=== PATIENT | female | born 1965 | race Caucasian/White ===

== ENCOUNTER → 2016-07-08 | Outpatient (CLI) | payer BC ==
[~2016-07-08] MED LIST: BUPR300T PO; COUMADIN PO; DOXY100C2 PO; FAMO20TA5 PO; HYDR-707 PO; LEVO500T2 PO; LISI40TA PO; MTP100TCR PO; MTR250T PO; OMEP40CA36 PO; PHEN100T17 PO; SULF1TAB38 PO; WARF6TAB PO; WRF1T; WRF3T
--- NOTE | 2016-07-08 18:39 | Diagnostic Imaging Report ---
Three views of the lumbar spine. INDICATION: Low back pain. FINDINGS: There is straightening of the lordotic curvature. Mild right convexity curvature centered around the thoracolumbar junction is seen, could be positional or related to mild scoliosis. The vertebral body heights are preserved. There is a grade 1 retrolisthesis of L4 over L5. There is mild disc height loss and endplate sclerosis with anterior osteophytes at the L5/S1. Anterior osteophytes at L5/S1 and at the L2/L3 levels seen. No posterior osteophyte formation is noted. There is an IVC filter and surgical clip in the upper right abdomen seen. Mild sclerotic degenerative changes in the lower facet joints and SI joints noted. IMPRESSION: Grade 1 retrolisthesis of L4 over L5. Mild disc degenerative changes. Dictated by: Dictated on workstation # [id number]
== END ==
LOC: RAD 15:45
PROVIDERS: ATTEND Family Medicine
DX: M43.16 Spondylolisthesis, lumbar region (principal)
CPT/HCPCS: 72100

== ENCOUNTER → 2016-12-24 | Outpatient (CLI) | payer BC ==
--- NOTE | 2016-12-27 14:37 | Diagnostic Imaging Report ---
Bilateral screening mammogram 2D views with tomosynthesis The current study was also evaluated with a Computer Aided Detection (CAD) system. INDICATION: Screening. No current complaints stated on the questionnaire. COMPARISON: 09/05/2014. FINDINGS: The breasts are composed of scattered fibroglandular densities. Occasional benign-appearing calcifications are seen. Allowing for technique and positional differences, no suspicious change is seen. IMPRESSION: No significant change. ACR BI-RADS Category 2: Benign findings. Result letter will be mailed to the patient. Note: At least 10% of breast cancer is not imaged by mammography. Dictated by: Dictated on workstation # [id number]
== END ==
LOC: RAD 15:38
PROVIDERS: ATTEND Family Medicine
DX: Z12.31 Encounter for screening mammogram for malignant neoplasm of breast (principal)
CPT/HCPCS: 77067

== ENCOUNTER → 2017-05-17 | Outpatient (CLI) | payer BC ==
[2017-05-17 12:33] LABS: BASOPHILS # (AUTO) 0.1 10^3/uL (0.0-0.1); BASOPHILS % (AUTO) 1 % (0-10); EOSINOPHILS # (AUTO) 0.3 10^3/uL (0.0-0.3); EOSINOPHILS % (AUTO) 4 % (0-10); HEMATOCRIT 38 % (35-52); HEMOGLOBIN 12.7 G/DL (11.5-16.0); LYMPHOCYTES # (AUTO) 2.3 X 10^3 (1.0-4.0); LYMPHOCYTES % (AUTO) 28 % (12-44); MEAN CORPUSCULAR HEMOGLOBIN 29 PG (25-34); MEAN CORPUSCULAR HGB CONC 33 G/DL (32-36); MEAN CORPUSCULAR VOLUME 87 FL (80-99); MEAN PLATELET VOLUME 11.3 FL (7.4-10.4); MONOCYTES # (AUTO) 1.1 X 10^3 (0.0-1.0); MONOCYTES % (AUTO) 13 % (0-12); NEUTROPHILS # (AUTO) 4.5 X 10^3 (1.8-7.8); NEUTROPHILS % (AUTO) 54 % (42-75); PLATELET COUNT 252 10^3/uL (130-400); WHITE BLOOD COUNT 8.3 10^3/uL (4.3-11.0)
[2017-05-17 12:54] LABS: BUN/CREATININE RATIO 15; CALCIUM 9.5 MG/DL (8.5-10.1); CARBON DIOXIDE 25 MMOL/L (21-32); CHLORIDE 106 MMOL/L (98-107); CREATININE SERUM 0.68 MG/DL (0.60-1.30); GFR ESTIMATED > 60; GLUCOSE 106 MG/DL (70-105); SODIUM 138 MMOL/L (135-145)
[2017-05-17 13:02] LABS: ERYTHROCYTE SEDIMENTATION RATE 28 MM/HR (0-30)
== END ==
LOC: HH 07:00
PROVIDERS: ATTEND Specialist
DX: T81.4XXA Infection following a procedure, initial encounter (principal); Z79.2 Long term (current) use of antibiotics
CPT/HCPCS: 80048; 85025; 85652; 86141

== ENCOUNTER → 2017-05-23 | Outpatient (CLI) | payer BC ==
[2017-05-23 15:26] LABS: BASOPHILS % (AUTO) 1 % (0-10); EOSINOPHILS % (AUTO) 1 % (0-10); HEMATOCRIT 40 % (35-52); HEMOGLOBIN 13.4 G/DL (11.5-16.0); LYMPHOCYTES # (AUTO) 1.6 X 10^3 (1.0-4.0); LYMPHOCYTES % (AUTO) 36 % (12-44); MEAN CORPUSCULAR HEMOGLOBIN 29 PG (25-34); MEAN CORPUSCULAR HGB CONC 34 G/DL (32-36); MEAN CORPUSCULAR VOLUME 86 FL (80-99); MEAN PLATELET VOLUME 11.3 FL (7.4-10.4); MONOCYTES # (AUTO) 0.9 X 10^3 (0.0-1.0); MONOCYTES % (AUTO) 20 % (0-12); NEUTROPHILS # (AUTO) 1.9 X 10^3 (1.8-7.8); NEUTROPHILS % (AUTO) 43 % (42-75); PLATELET COUNT 206 10^3/uL (130-400); RED BLOOD COUNT 4.64 10^6/uL (4.35-5.85); RED CELL DISTRIBUTION WIDTH 14.2 % (10.0-14.5); WHITE BLOOD COUNT 4.4 10^3/uL (4.3-11.0)
[2017-05-23 15:42] LABS: BUN/CREATININE RATIO 15; CALCIUM 9.3 MG/DL (8.5-10.1); CARBON DIOXIDE 27 MMOL/L (21-32); CHLORIDE 100 MMOL/L (98-107); CREATININE SERUM 0.75 MG/DL (0.60-1.30); GFR ESTIMATED > 60; GLUCOSE 97 MG/DL (70-105); POTASSIUM 3.9 MMOL/L (3.6-5.0); SODIUM 135 MMOL/L (135-145)
[2017-05-23 15:52] LABS: ERYTHROCYTE SEDIMENTATION RATE 28 MM/HR (0-30); LYMPHOCYTES % (MANUAL) 20 %; MONOCYTES % (MANUAL) 22 %; NEUTROPHILS % (MANUAL) 58 %; RBC MORPH NORMAL
== END ==
LOC: LAB 07:00
PROVIDERS: ATTEND Specialist
DX: T81.4XXA Infection following a procedure, initial encounter (principal); Z79.2 Long term (current) use of antibiotics
CPT/HCPCS: 36415; 80048; 85007; 85027; 85652; 86141

== ENCOUNTER → 2017-10-12 | Outpatient (CLI) | payer BC ==
--- NOTE | 2017-10-12 15:41 | Diagnostic Imaging Report ---
INDICATION: Cough. EXAMINATION: PA and lateral chest at 3:33 p.m. FINDINGS: The heart size is within normal limits and stable when compared to 06/18/2010. There is a prominent epicardial fat pad near the apex of the heart. This has increased in size since the previous exam. The lungs are clear. There is no sign of failure, pneumonia or pleural effusion to indicate an acute abnormality. The mediastinum is not widened. The osseous structures are intact. In the interval since the prior study, a well-circumscribed 8 mm calcification has developed between the undersurface of the acromion and the humeral head on the right. This may be secondary to calcific tendinitis or perhaps to prior trauma to the osseous structures in this area. Clinical followup is recommended. IMPRESSION: 1. There is no evidence for an acute cardiopulmonary abnormality. 2. These results were discussed with Dr. Asha Gee. Dictated by: Dictated on workstation # [id number]
== END ==
LOC: RAD 14:59
PROVIDERS: ATTEND Nurse Practitioner Family
DX: R07.81 Pleurodynia (principal); R05 Cough
CPT/HCPCS: 71046

== ENCOUNTER 2017-10-14 13:54 | Emergency (ER) | payer BC ==
[~2017-10-14] VITALS: Ht 175.3 cm; Wt 102.1 kg
--- NOTE | 2017-10-14 14:46 | ED Respiratory ---
General Chief Complaint: Respiratory Problems Stated Complaint: SOB, BODY ACHES Nursing Triage Note: ARRIVED VIA AMB TO ROOM 07. COMPLAINS OF CHRONIC SOA X2 WEEKS. SCHEDULED FOR A CT TODAY BY [facility] BUT [facility] DID NOT LABS WHICH ARE NEEDED. REGISTRATION TRIED TO CONTACT [facility] BUT NO RETURN CALL. PT ALSO COMPLAINS OF BILAT RIB PAIN. Source: patient Exam Limitations: no limitations History of Present Illness Date Seen by Provider: Oct 14, 2017 Time Seen by Provider: 14:42 Initial Comments is to ER with reports of shortness of breath for about 2 weeks. This began with a cough and"chest cold" symptoms. However, the cough has resolved but the shortness of breath persists. she had a chest x-ray done recently which was normal. 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 She had spine surgery in April/May of this year. She developed an infection and had to be off of the warfarin. Since being off the warfarin she states that had a difficult time getting her INR therapeutic. However, she does have a vena cava filter. She denies any new swelling to either extremity lower or upper. She is concerned about a PE. Timing/Duration: constant Severity: moderate Associated Symptoms: cough (was present but has resolved), shortness of breath Allergies and Home Medications Allergies Coded Allergies: Aspirin (Verified Allergy, Unknown, 01/03/06) Home Medications Bupropion Hcl 300 Mg Tab.sr.24h, 300 MG PO DAILY, (Reported) Famotidine 20 Mg Tablet, 1 EACH PO DAILY PRN PRN, (Reported) Hydrocodone Bit/Acetaminophen 1 Each Tablet, 1-2 EACH PO Q6H PRN, (Reported) Lisinopril 40 Mg Tablet, 40 MG PO DAILY, (Reported) Metoprolol Succinate 100 Mg Tab, 100 MG PO HS, (Reported) Omeprazole 40 Mg Capsule.dr, 40 MG PO DAILY, (Reported) Warfarin Sodium 6 Mg Tablet, 1 EACH PO HS TWT, (Reported) SUN,TUE,,TUE, Patient Home Medication List Home Medication List Reviewed: Yes Review of Systems Constitutional: see HPI; No chills, No fever EENTM: see HPI Respiratory: see HPI, cough, short of breath Cardiovascular: no symptoms reported; No chest pain Genitourinary: no symptoms reported Musculoskeletal: no symptoms reported Skin: no symptoms reported Past Ecvbjcp-Snllof-Iagtfj Hx Patient Social History Alcohol Use: Denies Use Recreational Drug Use: No Smoking Status: Never a Smoker Recent Foreign Travel: No Contact w/Someone Who Travel: No Recent Infectious Disease Expo: No Recent Hopitalizations: Yes Past Medical History Surgeries: Yes Appendectomy, Gallbladder, Hysterectomy, Orthopedic Respiratory: Yes Pulmonary Embolism Cardiac: Yes (BLOOD CLOTS) Hypertension Neurological: No Reproductive Disorders: No Gastrointestinal: No Musculoskeletal: Yes Arthritis Endocrine: No HEENT: No Cancer: No Did You Recieve Any Treatments: No Psychosocial: Yes Anxiety Blood Disorders: Yes Physical Exam Vital Signs - First Documented 10/14/17 14:01 Temp 98.0 Pulse 73 Resp 16 B/P (MAP) 144/100 (115) Pulse Ox 98 O2 Delivery Room Air Capillary Refill : Less Than 3 Seconds Height: 5'9.00" Weight: 225lbs. oz. 102.415947lk; BMI Method:Stated General Appearance: WD/WN, no apparent distress, other (well-appearing no distress speaks in full sentences lungs are clear) HEENT: PERRL/EOMI, normal ENT inspection Neck: non-tender, full range of motion Respiratory: normal breath sounds, no respiratory distress, no accessory muscle use Cardiovascular: regular rate, rhythm, no murmur; No JVD Gastrointestinal: normal bowel sounds, non tender, soft Neurologic/Psychiatric: alert, normal mood/affect, oriented x 3 Skin: normal color, warm/dry Progress/Results/Core Measures Suspected Sepsis Recent Fever Within 48 Hours: No Infection Criteria Present: None New/Unexplained Altered Menta: No Sepsis Screen: No Definite Risk SIRS Temperature:98.0 Pulse: 73 Respiratory Rate: 16 Laboratory Tests 10/14/17 14:50: White Blood Count 8.6 Blood Pressure 144 /100 Mean: 115 Laboratory Tests 10/14/17 14:50: Creatinine 0.74, INR Comment 2.3H, Platelet Count 336, Total Bilirubin 0.3 Results/Orders Lab Results Laboratory Tests Test 10/14/17 14:50 10/14/17 14:55 Range/Units White Blood Count 8.6 4.3-11.0 10^3/uL Red Blood Count 4.65 4.35-5.85 10^6/uL Hemoglobin 13.1 11.5-16.0 G/DL Hematocrit 40 35-52 % Mean Corpuscular Volume 85 80-99 FL Mean Corpuscular Hemoglobin 28 25-34 PG Mean Corpuscular Hemoglobin Concent 33 32-36 G/DL Red Cell Distribution Width 14.9 H 10.0-14.5 % Platelet Count 336 130-400 10^3/uL Mean Platelet Volume 10.1 7.4-10.4 FL Neutrophils (%) (Auto) 48 42-75 % Lymphocytes (%) (Auto) 39 12-44 % Monocytes (%) (Auto) 10 0-12 % Eosinophils (%) (Auto) 3 0-10 % Basophils (%) (Auto) 0 0-10 % Neutrophils # (Auto) 4.2 1.8-7.8 X 10^3 Lymphocytes # (Auto) 3.4 1.0-4.0 X 10^3 Monocytes # (Auto) 0.8 0.0-1.0 X 10^3 Eosinophils # (Auto) 0.2 0.0-0.3 10^3/uL Basophils # (Auto) 0.0 0.0-0.1 10^3/uL Prothrombin Time 25.6 H 12.2-14.7 SEC INR Comment 2.3 H 0.8-1.4 Sodium Level 143 135-145 MMOL/L Potassium Level 4.2 3.6-5.0 MMOL/L Chloride Level 108 H 98-107 MMOL/L Carbon Dioxide Level 26 21-32 MMOL/L Anion Gap 9 5-14 MMOL/L Blood Urea Nitrogen 10 7-18 MG/DL Creatinine 0.74 0.60-1.30 MG/DL Estimat Glomerular Filtration Rate > 60 BUN/Creatinine Ratio 14 Glucose Level 90 70-105 MG/DL Calcium Level 9.7 8.5-10.1 MG/DL Total Bilirubin 0.3 0.1-1.0 MG/DL Aspartate Amino Transf (AST/SGOT) 23 5-34 U/L Alanine Aminotransferase (ALT/SGPT) 27 0-55 U/L Alkaline Phosphatase 108 40-136 U/L B-Type Natriuretic Peptide 18.8 <100.0 PG/ML Total Protein 7.3 6.4-8.2 GM/DL Albumin 4.3 3.2-4.5 GM/DL Thyroid Stimulating Hormone (TSH) 0.75 0.35-4.94 UIU/ML Urine Color YELLOW Urine Clarity VERY CLOUDY H Urine pH 6 5-9 Urine Specific [place] 1.015 L 1.016-1.022 Urine Protein NEGATIVE NEGATIVE Urine Glucose (UA) NEGATIVE NEGATIVE Urine Ketones NEGATIVE NEGATIVE Urine Nitrite NEGATIVE NEGATIVE Urine Bilirubin NEGATIVE NEGATIVE Urine Urobilinogen NORMAL NORMAL MG/DL Urine Leukocyte Esterase NEGATIVE NEGATIVE Urine RBC (Auto) NEGATIVE NEGATIVE Urine RBC NONE /HPF Urine WBC NONE /HPF Urine Squamous Epithelial Cells 25-50 H /HPF Urine Crystals NONE /LPF Urine Bacteria FEW H /HPF Urine Casts NONE /LPF Urine Mucus NEGATIVE /LPF Urine Culture Indicated NO My Orders Orders - MARGRET BROCK ENGRA[employer] Cbc With Automated Diff (10/14/17 14:26) Comprehensive Metabolic Panel (10/14/17 14:26) Ua Culture If Indicated (10/14/17 14:26) Iv [place]ock-Insert (Order) (10/14/17 14:26) BNP (10/14/17 14:26) Thyroid Stimulating Hormone (10/14/17 14:26) Protime With Inr (10/14/17 14:40) Ct Angio Chest W (10/14/17 14:40) Iohexol Injection (Omnipaque 350 Mg/Ml 1 (10/14/17 15:00) Sodium Chloride Flush (Catheter Flush Sy (10/14/17 15:00) Ns (Ivpb) (Sodium Chloride 0.9%) (10/14/17 15:00) Pharmacy Communication (Pharmacy Communi (10/14/17 14:52) Medications Given in ED Current Medications Medications Dose Ordered Sig/Silver Route Start Time Stop Time Status Last Admin Dose Admin Iohexol 150 ml ONCE ONCE IV 10/14/17 15:00 10/14/17 15:01 DC 10/14/17 16:03 125 ML Sodium Chloride 10 ml NEEDED PRN IV 10/14/17 15:00 10/14/17 16:04 10 ML Sodium Chloride 250 ml ONCE ONCE IV 10/14/17 15:00 10/14/17 15:01 DC 10/14/17 16:03 80 ML Vital Signs/I&O 10/14/17 14:01 Temp 98.0 Pulse 73 Resp 16 B/P (MAP) 144/100 (115) Pulse Ox 98 O2 Delivery Room Air Capillary Refill : Less Than 3 Seconds Blood Pressure Mean: 115 Diagnostic Imaging Diagonstic Imaging: CT Comments NAME: REYNALDO HOLT [facility] REC#: [id number] PT STATUS: REG ER : 08/13/1966 PHYSICIAN: MARGRET BROCK APRN ADMIT DATE: 10/14/17/ER Draft Date of Exam:10/14/17 CT ABD/PELVIS WO(KIDNEY STONE) PROCEDURE: CT urinary tract, rule out kidney stone. TECHNIQUE: Multiple contiguous axial images were obtained through the abdomen and pelvis without the use of intravenous contrast. INDICATION: Worsening left flank pain. COMPARISON: 07/05/2009. FINDINGS: There is no hydronephrosis, and there are no opaque urinary tract calculi. No perinephric or periureteric edema. The unopacified urinary bladder appears normal. The uterus and adnexa are unremarkable. There is no appendicitis or diverticulitis. The liver, gallbladder, spleen, adrenals, and pancreas are unremarkable. The aorta is nonaneurysmal. There is a fatty umbilical hernia without inflammation, chronic. No herniated viscus. No inflammatory process, ascites, fluid collection, or acute appearing abnormalities. IMPRESSION: Unobstructed nonfocal urinary tracts. No acute finding, and no findings to explain the presenting complaint of left flank pain. Dictated on workstation # [id number] Dict: 10/14/17 1201 Trans: 10/14/17 1212 [id number] Interpreted by: NICOLE STRICKLAND Electronically signed by: Departure Impression Primary Impression: Dyspnea Disposition: 01 HOME, SELF-CARE Condition: Stable Departure-Patient Inst. Decision time for Depature: 16:31 Referrals: GILDA WESLEY DO (PCP/Family) Primary Care Physician Patient Instructions: Shortness of Breath (Dyspnea) Add. Discharge Instructions: 1. REturn to ER for any conerns 2. See your doctor next week for recheck 3. All discharge instructions reviewed with patient and/or family. Voiced understanding. Copy Copies To 1: GILDA WESLEY PETER J APRN Oct 14, 2017 14:46
[2017-10-14 15:00] LABS: BASOPHILS % (AUTO) 0 % (0-10); EOSINOPHILS # (AUTO) 0.2 10^3/uL (0.0-0.3); EOSINOPHILS % (AUTO) 3 % (0-10); HEMATOCRIT 40 % (35-52); HEMOGLOBIN 13.1 G/DL (11.5-16.0); LYMPHOCYTES # (AUTO) 3.4 X 10^3 (1.0-4.0); LYMPHOCYTES % (AUTO) 39 % (12-44); MEAN CORPUSCULAR HEMOGLOBIN 28 PG (25-34); MEAN CORPUSCULAR HGB CONC 33 G/DL (32-36); MEAN CORPUSCULAR VOLUME 85 FL (80-99); MEAN PLATELET VOLUME 10.1 FL (7.4-10.4); MONOCYTES # (AUTO) 0.8 X 10^3 (0.0-1.0); MONOCYTES % (AUTO) 10 % (0-12); NEUTROPHILS # (AUTO) 4.2 X 10^3 (1.8-7.8); NEUTROPHILS % (AUTO) 48 % (42-75); PLATELET COUNT 336 10^3/uL (130-400); RED BLOOD COUNT 4.65 10^6/uL (4.35-5.85); RED CELL DISTRIBUTION WIDTH 14.9 % (10.0-14.5); WHITE BLOOD COUNT 8.6 10^3/uL (4.3-11.0)
[2017-10-14] MEDS ORDERED: IOHEXOL 350 MG/ML 150 ML (OMNIPAQUE 350) VIAL IV ONE (15:00)
[2017-10-14] MEDS ORDERED: NS 250 ML (IVPB) BAG IV ONE (15:00)
[2017-10-14] MEDS ORDERED: CATHETER FLUSH 10 ML SYR IV PRN (15:00)
[2017-10-14 15:02] LABS: BILIRUBIN,URINE NEGATIVE (NEGATIVE); CLARITY,URINE VERY CLOUDY; COLOR,URINE YELLOW; GLUCOSE, URINE (UA) NEGATIVE (NEGATIVE); KETONES,URINE NEGATIVE (NEGATIVE); LEUKOCYTE ESTERASE ,URINE NEGATIVE (NEGATIVE); NITRITE,URINE NEGATIVE (NEGATIVE); PH,URINE 6 (5-9); PROTEIN,URINE NEGATIVE (NEGATIVE); UROBILINOGEN,URINE NORMAL (NORMAL)
[2017-10-14 15:09] LABS: INR 2.3 (0.8-1.4); PROTHROMBIN TIME PATIENT 25.6 SEC (12.2-14.7)
[2017-10-14 15:11] LABS: BACTERIA,URINE FEW /HPF; SQUAMOUS EPITHELIAL CELL,UR 25-50 /HPF
[2017-10-14 15:18] LABS: ALANINE AMINOTRANSFERASE 27 U/L (0-55); ALBUMIN 4.3 GM/DL (3.2-4.5); ALKALINE PHOSPHATASE 108 U/L (40-136); BILIRUBIN,TOTAL 0.3 MG/DL (0.1-1.0); BUN/CREATININE RATIO 14; CALCIUM 9.7 MG/DL (8.5-10.1); CARBON DIOXIDE 26 MMOL/L (21-32); CHLORIDE 108 MMOL/L (98-107); CREATININE SERUM 0.74 MG/DL (0.60-1.30); GFR ESTIMATED > 60; GLUCOSE 90 MG/DL (70-105); POTASSIUM 4.2 MMOL/L (3.6-5.0); SODIUM 143 MMOL/L (135-145); TOTAL PROTEIN 7.3 GM/DL (6.4-8.2)
--- NOTE | 2017-10-14 16:26 | Diagnostic Imaging Report ---
PROCEDURE: CT angiography of the chest with contrast. TECHNIQUE: Multiple contiguous axial images were obtained through the chest after uneventful bolus administration of intravenous contrast. Reconstructed CTA MIP acquisitions were also performed. INDICATION: Left-sided chest pain. Shortness of air. History of blood clots. COMPARISON: None. FINDINGS: There is no evidence of acute pulmonary embolus within the main pulmonary arteries. Evaluation beyond this is suboptimal secondary to poor contrast opacification. Heart size is within normal limits. There is no large pericardial effusion. No pathologically enlarged or morphologically abnormal adenopathy is seen within the mediastinum, fabrizio, nor axilla. Thoracic aorta is normal in course and caliber. Evaluation of the lung jose demonstrates no focal consolidation, pleural effusion, nor pneumothorax. Punctate micronodule measuring 3 mm is noted associated with the lateral margins of the major fissure on the left (image 63, series 4). No other suspicious pulmonary nodules or masses are identified. Bony structures show age-related degenerative changes of the thoracic spine. No acute osseous abnormalities are identified. Included portions of the upper abdomen show no additional acute findings. IMPRESSION: 1. No CT evidence of acute pulmonary embolus within the main pulmonary arteries. Please note however that evaluation beyond this is suboptimal secondary to poor contrast opacification. 2. Small micronodule on the left as described above. If patient is in a high-risk category such as history of smoking, could perform one-year followup to ensure stability. Alternatively, if patient is in a low-risk category, no further followup may be indicated. Dictated by: Dictated on workstation # [id number]
[2017-10-14 16:50] VITALS: BP 146/98
== END 2017-10-14 16:50 | disposition home or self-care (01) ==
LOC: EDUNIT# 13:54 → ER 13:55
DX: R06.00 Dyspnea, unspecified (principal); I10 Essential (primary) hypertension; F41.9 Anxiety disorder, unspecified; Z86.718 Personal history of other venous thrombosis and embolism; Z79.01 Long term (current) use of anticoagulants; Z88.6 Allergy status to analgesic agent; Z90.710 Acquired absence of both cervix and uterus; Z90.89 Acquired absence of other organs
CPT/HCPCS: 36415; 71275; 80053; 81000; 83880; 84443; 85025; 85610

== ENCOUNTER → 2017-12-26 | Outpatient (CLI) | payer BC ==
--- NOTE | 2017-12-26 13:19 | Diagnostic Imaging Report ---
INDICATION: Screening. TECHNIQUE: The current study was also evaluated with a Computer Aided Detection (CAD) system. 3D tomosynthesis was also performed and reviewed. COMPARISON: 12/24/2016 back through 09/05/2014. FINDINGS: There are scattered fibroglandular densities bilaterally. There are a few benign type calcifications. There is no dominant mass, spiculated lesion, or suspicious calcification identified. IMPRESSION: Benign findings. ACR BI-RADS Category 2: Benign findings. Result letter will be mailed to the patient. Note: At least 10% of breast cancer is not imaged by mammography. Dictated by: Dictated on workstation # [id number]
== END ==
LOC: RAD 09:50
PROVIDERS: ATTEND Family Medicine
DX: Z12.31 Encounter for screening mammogram for malignant neoplasm of breast (principal)
CPT/HCPCS: 77067

== ENCOUNTER 2018-02-16 12:00 | Outpatient (CLI) | payer OTHER, BC ==
[~2018-02-16] VITALS: Ht 175.3 cm; Wt 107.0 kg
[2018-02-16 12:14] VITALS: BP 135/82
[2018-02-16] MEDS ORDERED: WARF6TAB49 PO (12:29)
[2018-02-16] MEDS ORDERED: OMEP40CA36 PO (12:29)
[2018-02-16] MEDS ORDERED: SPIR25TA5 PO (12:29)
[2018-02-16] MEDS ORDERED: PRAV40TA2 PO (12:29)
[2018-02-16] MEDS ORDERED: CELE200C PO (12:29)
[2018-02-16] MEDS ORDERED: METO200T48 PO (12:29)
[2018-02-16] MEDS ORDERED: METF-397 PO (12:29)
== END 2018-02-16 12:30 | disposition home or self-care (01) ==
LOC: PREOP 12:00
PROVIDERS: ATTEND Orthopaedic Surgery
DX: Z01.818 Encounter for other preprocedural examination (principal)
CPT/HCPCS: 87081

== ENCOUNTER 2018-02-22 07:25 | Day surgery (SDC) | payer BC, OTHER ==
--- NOTE | 2018-02-13 15:06 | HISTORY AND PHYSICAL ---
DATE OF SERVICE: ADMISSION HISTORY AND PHYSICAL DATE OF ADMISSION: 02/22/2018. Date of surgery, date of service, and date of admission for outpatient surgery will be 02/22/2018, for left carpal tunnel release and left ulnar nerve decompression. HISTORY OF PRESENT ILLNESS: The patient is a 52-year-old right hand dominant female with complaints of left hand pain and paresthesias. She reports paresthesias with repetitive activities. She reports night pain. She reports that she drops things. She reports pain when she holds her palm and drives for prolonged periods. Due to functional impairment and failure to improve with conservative measures, the patient elected to proceed with surgical intervention. REVIEW OF SYSTEMS: No chest pain or shortness of breath. No dysuria. PAST MEDICAL HISTORY: Chronic back pain, right leg pain, right leg weakness, depression, reflux, hypertension, pulmonary embolism with IVC filter placement, factor V Leiden mutation, diabetes, hypercholesterolemia, falls, and osteoarthritis. PAST SURGICAL HISTORY: knee arthroscopy, hysterectomy, cholecystectomy, appendectomy, IVC filter placement, C4-C6 laminoplasty with partial C3 and partial C7 decompressive laminectomy. FAMILY HISTORY: Significant for lung cancer and hypertension. PRIMARY CARE PROVIDER: Jessica Gee DO. MEDICATIONS: Coumadin, spironolactone, omeprazole, Wellbutrin, metformin, Toprol, pravastatin, Tylenol, Celebrex, [employer], and cyclobenzaprine. ALLERGIES: No known drug allergies. SOCIAL HISTORY: The patient denies alcohol and tobacco use. PHYSICAL EXAMINATION: GENERAL: The patient is well developed, well-nourished, in no acute distress. HEENT: Normocephalic, atraumatic. Pupils are equal, round, reactive to light. Oropharynx is clear. NECK: Supple. No lymphadenopathy. LUNGS: Clear to auscultation bilaterally. HEART: Regular rate and rhythm. ABDOMEN: Soft, nontender, and nondistended. EXTREMITIES: Left elbow demonstrates positive elbow flexion test with positive Tinel's of the cubital tunnel, positive Tinel's of the carpal tunnel. NEUROLOGIC: Decreased sensation in the median and ulnar distribution. Atrophy is noted of her thenar eminence. IMPRESSION: Left cubital and carpal tunnel syndrome. PLAN: Left cubital tunnel and carpal tunnel releases. We discussed risks, benefits, options, ramifications and recovery. She understands and wished to proceed. Job ID: [id number] DocumentID: [id number] Dictated Date: 02/13/2018 14:37:53 [employer]ec[employer]er Date: 02/13/2018 15:04:53 Dictated By: MELANIE SCHULZ MD
[~2018-02-22] VITALS: Ht 175.3 cm; Wt 107.0 kg
[2018-02-22 07:25] VITALS: BP 128/100
[~2018-02-22 07:25] MED LIST changes: +CELE200C PO; +METF-397 PO; +METO200T48 PO; +PRAV40TA2 PO; +SPIR25TA5 PO; +WARF6TAB49 PO
[2018-02-22] MEDS ORDERED: LACTATED RINGERS 1,000 ML IV PRN (07:33)
--- OUTSIDE RECORDS SUMMARY | 2018-02-22 07:36 | XMS REPORT | Continuity of Care Document ---
Author Author [facility] Organization [facility] Address Unknown Phone Unavailable Allergies Active Description Code Type Severity Reaction Onset Reported/Identified Relationship to Patient Clinical Status Yes aspirin [id number] Drug Allergy Unknown N/A 01/03/2006 Medications There is no data. Problems Date Dx Coded Attending Type Code Diagnosis Diagnosed By 06/13/2010 Ot 275.2 06/13/2010 Ot 311 06/13/2010 Ot 401.9 06/13/2010 Ot 530.81 06/13/2010 Ot 553.1 06/13/2010 Ot 614.6 06/13/2010 Ot 617.1 06/13/2010 Ot 751.5 06/13/2010 Ot V12.51 06/13/2010 Ot V58.61 06/13/2010 Ot V64.41 06/20/2010 Ot 041.10 06/20/2010 Ot 599.0 06/20/2010 Ot 682.2 06/20/2010 Ot 998.59 03/05/2014 Ot 789.03 03/26/2014 VANBECELAERE, INOCENCIO M FACULTY HEAD Ot 719.42 03/26/2014 VANBECELAERE, INOCENCIO M FACULTY HEAD Ot E000.8 03/26/2014 VANBECELAERE, INOCENCIO M FACULTY HEAD Ot E888.9 08/14/2014 Ot 789.03 08/14/2014 VANBECELAERE, INOCENCIO M FACULTY HEAD Ot 719.42 08/14/2014 VANBECELAERE, INOCENCIO M FACULTY HEAD Ot E000.8 08/14/2014 VANBECELAERE, INOCENCIO M FACULTY HEAD Ot E888.9 2014 Ot 789.03 2014 VANBECELAERE, INOCENCIO M FACULTY HEAD Ot 719.42 2014 VANBECELAERE, INOCENCIO M FACULTY HEAD Ot E000.8 2014 VANBECELAERE, INOCENCIO M FACULTY HEAD Ot E888.9 09/24/2014 GILDA WESLEY DO Ot V76.12 04/02/2015 VANBECELAERE, INOCENCIO M FACULTY HEAD Ot R07.9 02/23/2016 VANBECELAERE, INOCENCIO M FACULTY HEAD Ot 719.42 JOINT PAIN-UP/ARM 02/23/2016 VANBECELAERE, INOCENCIO M FACULTY HEAD Ot E000.8 OTHER EXTERNAL CAUSE STATUS 02/23/2016 VANBECELAERE, INOCENCIO M FACULTY HEAD Ot E888.9 FALL NOS 02/23/2016 GILDA WESLEY DO Ot V76.12 OTH SCREEN MAMMO-MALIGN NEOPLASM OF NANCY 02/23/2016 VANBECELAERE, INOCENCIO M FACULTY HEAD Ot R07.9 CHEST PAIN, UNSPECIFIED 02/24/2016 LAURIE PENNY INDUSTRIAL RADIOGRAPHER Ot R05 COUGH 02/24/2016 LAURIE PENNY INDUSTRIAL RADIOGRAPHER Ot R50.9 FEVER, UNSPECIFIED 03/10/2016 LAURIE PENNY INDUSTRIAL RADIOGRAPHER Ot R05 COUGH 03/10/2016 LAURIE PENNY INDUSTRIAL RADIOGRAPHER Ot R50.9 FEVER, UNSPECIFIED 04/09/2016 VANBECELAERE, INOCENCIO M FACULTY HEAD Ot 719.42 JOINT PAIN-UP/ARM 04/09/2016 VANBECELAERE, INOCENCIO M FACULTY HEAD Ot E000.8 OTHER EXTERNAL CAUSE STATUS 04/09/2016 VANBECELAERE, INOCENCIO M FACULTY HEAD Ot E888.9 FALL NOS 04/09/2016 GILDA WESLEY DO Ot V76.12 OTH SCREEN MAMMO-MALIGN NEOPLASM OF NANCY 04/09/2016 VANBECELAERE, INOCENCIO M FACULTY HEAD Ot R07.9 CHEST PAIN, UNSPECIFIED 04/09/2016 LAURIE PENNY INDUSTRIAL RADIOGRAPHER Ot R05 COUGH 04/09/2016 LAURIE PENNY INDUSTRIAL RADIOGRAPHER Ot R50.9 FEVER, UNSPECIFIED 07/08/2016 VANBECELAERE, INOCENCIO M FACULTY HEAD Ot 719.42 JOINT PAIN-UP/ARM 07/08/2016 VANBECELAERE, INOCENCIO M FACULTY HEAD Ot E000.8 OTHER EXTERNAL CAUSE STATUS 07/08/2016 VANBECELAERE, INOCENCIO M FACULTY HEAD Ot E888.9 FALL NOS 07/08/2016 GILDA WESLEY DO Ot V76.12 OTH SCREEN MAMMO-MALIGN NEOPLASM OF NANCY 07/08/2016 INOCENCIO PRATER Ot R07.9 CHEST PAIN, UNSPECIFIED 07/08/2016 LAURIE PENNY INDUSTRIAL RADIOGRAPHER Ot R05 COUGH 07/08/2016 LAURIE PENNY INDUSTRIAL RADIOGRAPHER Ot R50.9 FEVER, UNSPECIFIED 07/09/2016 ORENDER DO, GILDA S Ot M43.16 SPONDYLOLISTHESIS, LUMBAR REGION 07/28/2016 ORENDER DO, GILDA S Ot M43.16 SPONDYLOLISTHESIS, LUMBAR REGION 01/05/2017 ORENDER DO, GILDA S Ot Z12.31 ENCNTR SCREEN MAMMOGRAM FOR MALIGNANT NE 06/02/2017 CONCHA MANZO, NAKUL Simons Ot T81.4XXA INFECTION FOLLOWING A PROCEDURE, INITIAL 06/02/2017 NAKUL KERN MD Ot Z79.2 LONG-TERM (CURRENT) USE OF ANTIBIOTICS 06/03/2017 NAKUL KERN MD Ot T81.4XXA INFECTION FOLLOWING A PROCEDURE, INITIAL 06/03/2017 CONCHA MANZO, NAKUL Simons Ot Z79.2 GLOBAL HEAD ADVERTISER 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) USE OF ANTIBIOTICS 06/15/2017 COCNHA MANZO, NAKUL Simons Ot T81.4XXA INFECTION FOLLOWING A PROCEDURE, INITIAL 06/15/2017 NAKUL KERN MD Ot Z79.2 GLOBAL HEAD ADVERTISER 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) USE OF ANTIBIOTICS 10/13/2017 OUMAR ROSADO INDUSTRIAL RADIOGRAPHER Ot R05 COUGH 10/13/2017 OUMAR ROSADO INDUSTRIAL RADIOGRAPHER Ot R07.81 PLEURODYNIA 10/14/2017 MARGRET BROCK APRN Ot F41.9 ANXIETY DISORDER, UNSPECIFIED 10/14/2017 MARGRET BROCK APRN Ot I10 ESSENTIAL (PRIMARY) HYPERTENSION 10/14/2017 MARGRET BROCK APRN Ot R06.00 DYSPNEA, UNSPECIFIED 10/14/2017 MARGRET BROCK APRN Ot R06.02 SHORTNESS OF BREATH 10/14/2017 MARGRET BROCK APRN Ot Z79.01 LONG-TERM (CURRENT) USE OF ANTICOAGULANT 10/14/2017 MARGRET BROCK APRN Ot Z86.718 PERSONAL HISTORY OF OTHER VENOUS THROMBO 10/14/2017 MARGRET BROCK APRN Ot Z88.6 ALLERGY STATUS TO ANALGESIC AGENT STATUS 10/14/2017 BROCK, PETER J INDUSTRIAL RADIOGRAPHER Ot Z90.710 ACQUIRED ABSENCE OF BOTH CERVIX AND UTER 10/14/2017 MARGRET BROCK INDUSTRIAL RADIOGRAPHER Ot Z90.89 ACQUIRED ABSENCE OF OTHER ORGANS 10/17/2017 MARGRET BROCK INDUSTRIAL RADIOGRAPHER Ot F41.9 ANXIETY DISORDER, UNSPECIFIED 10/17/2017 MARGRET BROCK INDUSTRIAL RADIOGRAPHER Ot I10 ESSENTIAL (PRIMARY) HYPERTENSION 10/17/2017 MARGRET BROCK APRN Ot R06.00 DYSPNEA, UNSPECIFIED 10/17/2017 MARGRET BROCK APRN Ot R06.02 SHORTNESS OF BREATH 10/17/2017 MARGRET BROCK APRN Ot Z79.01 LONG-TERM (CURRENT) USE OF ANTICOAGULANT 10/17/2017 MARGRET BROCK APRN Ot Z86.718 PERSONAL HISTORY OF OTHER VENOUS THROMBO 10/17/2017 MARGRET BROCK APRN Ot Z88.6 ALLERGY STATUS TO ANALGESIC AGENT STATUS 10/17/2017 MARGRET BROCK APRN Ot Z90.710 ACQUIRED ABSENCE OF BOTH CERVIX AND UTER 10/17/2017 MARGRET BROCK APRN Ot Z90.89 ACQUIRED ABSENCE OF OTHER ORGANS 02/16/2018 INOCENCIO PRATER FACULTY HEAD Ot 719.42 JOINT PAIN-UP/ARM 02/16/2018 INOCENCIO PRATER FACULTY HEAD Ot E000.8 OTHER EXTERNAL CAUSE STATUS 02/16/2018 INOCENCIO PRATER FACULTY HEAD Ot E888.9 FALL NOS 02/16/2018 GILDA WESLEY DO S Ot V76.12 OTH SCREEN MAMMO-MALIGN NEOPLASM OF NANCY 02/16/2018 INOCENCIO PRATER FACULTY HEAD Ot R07.9 CHEST PAIN, UNSPECIFIED 02/16/2018 LAURIE PENNY INDUSTRIAL RADIOGRAPHER Ot R05 COUGH 02/16/2018 LAURIE PENNY INDUSTRIAL RADIOGRAPHER Ot R50.9 FEVER, UNSPECIFIED 02/16/2018 GILDA WESLEY DO S Ot M43.16 SPONDYLOLISTHESIS, LUMBAR REGION 02/16/2018 GILDA WESLEY DO S Ot Z12.31 ENCNTR SCREEN MAMMOGRAM FOR MALIGNANT NE 02/16/2018 CONCHA MANZO, NAKUL A Ot T81.4XXA INFECTION FOLLOWING A PROCEDURE, INITIAL 02/16/2018 NAKUL KERN MD Ot Z79.2 LONG-TERM (CURRENT) USE OF ANTIBIOTICS 02/16/2018 CONCHA MANZO, NAKUL A Ot T81.4XXA INFECTION FOLLOWING A PROCEDURE, INITIAL 02/16/2018 CONCHA MANZO, NAKUL A Ot Z79.2 GLOBAL HEAD ADVERTISER 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) USE OF ANTIBIOTICS 02/16/2018 OUMAR ROSADO R INDUSTRIAL RADIOGRAPHER Ot R05 COUGH 02/16/2018 OUMAR ROSADO R INDUSTRIAL RADIOGRAPHER Ot R07.81 PLEURODYNIA 02/16/2018 GILDA WESLEY DO Ot Z12.31 ENCNTR SCREEN MAMMOGRAM FOR MALIGNANT NE 02/17/2018 ZEUS MANZO, MELANIE Andrea Ot Z01.818 ENCOUNTER FOR OTHER PREPROCEDURAL EXAMIN Procedures There is no data. Results Test Result Range Complete blood count (CBC) with automated white blood cell (WBC) differential - 02/23/16 10:05 Blood leukocytes automated count (number/volume) 14.3 10*3/uL 4.3-11.0 Blood erythrocytes automated count (number/volume) 4.91 10*6/uL 4.35-5.85 Venous blood hemoglobin measurement (mass/volume) 14.3 g/dL 11.5-16.0 Blood hematocrit (volume fraction) 44 % 35-52 Automated erythrocyte mean corpuscular volume 89 [foz_us] 80-99 Automated erythrocyte mean corpuscular hemoglobin (mass per erythrocyte) 29 pg 25-34 Automated erythrocyte mean corpuscular hemoglobin concentration measurement ( mass/volume) 33 g/dL 32-36 Automated erythrocyte distribution width ratio 14.6 % 10.0-14.5 Automated blood platelet count (count/volume) 336 10*3/uL 130-400 Automated blood platelet mean volume measurement 10.1 [foz_us] 7.4-10.4 Automated blood neutrophils/100 leukocytes 57 % 42-75 Automated blood lymphocytes/100 leukocytes 32 % 12-44 Blood monocytes/100 leukocytes 9 % 0-12 Automated blood eosinophils/100 leukocytes 1 % 0-10 Automated blood basophils/100 leukocytes 0 % 0-10 Blood neutrophils automated count (number/volume) 8.2 10*3 1.8-7.8 Blood lymphocytes automated count (number/volume) 4.6 10*3 1.0-4.0 Blood monocytes automated count (number/volume) 1.3 10*3 0.0-1.0 Automated eosinophil count 0.2 10*3/uL 0.0-0.3 Automated blood basophil count (count/volume) 0.0 10*3/uL 0.0-0.1 Blood manual differential performed detection - 02/23/16 10:05 Blood monocytes/100 leukocytes 9 % NRG Manual blood segmented neutrophils/100 leukocytes 60 % NRG Blood band neutrophils/100 leukocytes 0 % NRG Manual blood lymphocytes/100 leukocytes 31 % NRG Manual eosinophils/100 leukocytes in nose 0 % NRG Manual blood basophils/100 leukocytes 0 % NRG Blood anisocytosis detection by light microscopy SLIGHT NRG Sputum Gram stain - 02/23/16 10:18 GRAM STAIN SPUTUM AND MIXED BACTERIAL SHANNAN NRG Bacterial sputum culture - 02/23/16 10:18 Bacterial sputum culture NORMAL NRG Complete blood count (CBC) with automated white blood cell (WBC) differential - 05/17/17 11:45 Blood leukocytes automated count (number/volume) 8.3 10*3/uL 4.3-11.0 Blood erythrocytes automated count (number/volume) 4.40 10*6/uL 4.35-5.85 Venous blood hemoglobin measurement (mass/volume) 12.7 g/dL 11.5-16.0 Blood hematocrit (volume fraction) 38 % 35-52 Automated erythrocyte mean corpuscular volume 87 [foz_us] 80-99 Automated erythrocyte mean corpuscular hemoglobin (mass per erythrocyte) 29 pg 25-34 Automated erythrocyte mean corpuscular hemoglobin concentration measurement ( mass/volume) 33 g/dL 32-36 Automated erythrocyte distribution width ratio 14.0 % 10.0-14.5 Automated blood platelet count (count/volume) 252 10*3/uL 130-400 Automated blood platelet mean volume measurement 11.3 [foz_us] 7.4-10.4 Automated blood neutrophils/100 leukocytes 54 % 42-75 Automated blood lymphocytes/100 leukocytes 28 % 12-44 Blood monocytes/100 leukocytes 13 % 0-12 Automated blood eosinophils/100 leukocytes 4 % 0-10 Automated blood basophils/100 leukocytes 1 % 0-10 Blood neutrophils automated count (number/volume) 4.5 10*3 1.8-7.8 Blood lymphocytes automated count (number/volume) 2.3 10*3 1.0-4.0 Blood monocytes automated count (number/volume) 1.1 10*3 0.0-1.0 Automated eosinophil count 0.3 10*3/uL 0.0-0.3 Automated blood basophil count (count/volume) 0.1 10*3/uL 0.0-0.1 Whole blood basic metabolic panel - 05/17/17 11:45 Serum or plasma sodium measurement (moles/volume) 138 mmol/L 135-145 Serum or plasma potassium measurement (moles/volume) 4.0 mmol/L 3.6-5.0 Serum or plasma chloride measurement (moles/volume) 106 mmol/L 98-107 Carbon dioxide 25 mmol/L 21-32 Serum or plasma anion gap determination (moles/volume) 7 mmol/L 5-14 Serum or plasma urea nitrogen measurement (mass/volume) 10 mg/dL 7-18 Serum or plasma creatinine measurement (mass/volume) 0.68 mg/dL 0.60-1.30 Serum or plasma urea nitrogen/creatinine mass ratio 15 NRG Serum or plasma creatinine measurement with calculation of estimated glomerular filtration rate > NRG Serum or plasma glucose measurement (mass/volume) 106 mg/dL 70-105 Serum or plasma calcium measurement (mass/volume) 9.5 mg/dL 8.5-10.1 Serum or plasma C reactive protein measurement (mass/volume) - 05/17/17 11:45 Serum or plasma C reactive protein measurement (mass/volume) 1.61 mg /dL 0.00-0.50 Erythrocyte sedimentation rate by westergren method - 05/17/17 11:45 Erythrocyte sedimentation rate by westergren method 28 mm 0-30 Complete blood count (CBC) with automated white blood cell (WBC) differential - 05/23/17 14:25 Blood leukocytes automated count (number/volume) 4.4 10*3/uL 4.3-11.0 Blood erythrocytes automated count (number/volume) 4.64 10*6/uL 4.35-5.85 Venous blood hemoglobin measurement (mass/volume) 13.4 g/dL 11.5-16.0 Blood hematocrit (volume fraction) 40 % 35-52 Automated erythrocyte mean corpuscular volume 86 [foz_us] 80-99 Automated erythrocyte mean corpuscular hemoglobin (mass per erythrocyte) 29 pg 25-34 Automated erythrocyte mean corpuscular hemoglobin concentration measurement ( mass/volume) 34 g/dL 32-36 Automated erythrocyte distribution width ratio 14.2 % 10.0-14.5 Automated blood platelet count (count/volume) 206 10*3/uL 130-400 Automated blood platelet mean volume measurement 11.3 [foz_us] 7.4-10.4 Automated blood neutrophils/100 leukocytes 43 % 42-75 Automated blood lymphocytes/100 leukocytes 36 % 12-44 Blood monocytes/100 leukocytes 20 % 0-12 Automated blood eosinophils/100 leukocytes 1 % 0-10 Automated blood basophils/100 leukocytes 1 % 0-10 Blood neutrophils automated count (number/volume) 1.9 10*3 1.8-7.8 Blood lymphocytes automated count (number/volume) 1.6 10*3 1.0-4.0 Blood monocytes automated count (number/volume) 0.9 10*3 0.0-1.0 Automated eosinophil count 0.0 10*3/uL 0.0-0.3 Automated blood basophil count (count/volume) 0.0 10*3/uL 0.0-0.1 Whole blood basic metabolic panel - 05/23/17 14:25 Serum or plasma sodium measurement (moles/volume) 135 mmol/L 135-145 Serum or plasma potassium measurement (moles/volume) 3.9 mmol/L 3.6-5.0 Serum or plasma chloride measurement (moles/volume) 100 mmol/L 98-107 Carbon dioxide 27 mmol/L 21-32 Serum or plasma anion gap determination (moles/volume) 8 mmol/L 5-14 Serum or plasma urea nitrogen measurement (mass/volume) 11 mg/dL 7-18 Serum or plasma creatinine measurement (mass/volume) 0.75 mg/dL 0.60-1.30 Serum or plasma urea nitrogen/creatinine mass ratio 15 NRG Serum or plasma creatinine measurement with calculation of estimated glomerular filtration rate > NRG Serum or plasma glucose measurement (mass/volume) 97 mg/dL 70-105 Serum or plasma calcium measurement (mass/volume) 9.3 mg/dL 8.5-10.1 Serum or plasma C reactive protein measurement (mass/volume) - 05/23/17 14:25 Serum or plasma C reactive protein measurement (mass/volume) 2.00 mg /dL 0.00-0.50 Blood manual differential performed detection - 05/23/17 14:25 Blood monocytes/100 leukocytes 22 % NRG Manual blood segmented neutrophils/100 leukocytes 58 % NRG Manual blood lymphocytes/100 leukocytes 20 % NRG Blood erythrocyte morphology finding identification NORMAL NRG Erythrocyte sedimentation rate by westergren method - 05/23/17 14:25 Erythrocyte sedimentation rate by westergren method 28 mm 0-30 Complete blood count (CBC) with automated white blood cell (WBC) differential - 10/14/17 14:50 Blood leukocytes automated count (number/volume) 8.6 10*3/uL 4.3-11.0 Blood erythrocytes automated count (number/volume) 4.65 10*6/uL 4.35-5.85 Venous blood hemoglobin measurement (mass/volume) 13.1 g/dL 11.5-16.0 Blood hematocrit (volume fraction) 40 % 35-52 Automated erythrocyte mean corpuscular volume 85 [foz_us] 80-99 Automated erythrocyte mean corpuscular hemoglobin (mass per erythrocyte) 28 pg 25-34 Automated erythrocyte mean corpuscular hemoglobin concentration measurement ( mass/volume) 33 g/dL 32-36 Automated erythrocyte distribution width ratio 14.9 % 10.0-14.5 Automated blood platelet count (count/volume) 336 10*3/uL 130-400 Automated blood platelet mean volume measurement 10.1 [foz_us] 7.4-10.4 Automated blood neutrophils/100 leukocytes 48 % 42-75 Automated blood lymphocytes/100 leukocytes 39 % 12-44 Blood monocytes/100 leukocytes 10 % 0-12 Automated blood eosinophils/100 leukocytes 3 % 0-10 Automated blood basophils/100 leukocytes 0 % 0-10 Blood neutrophils automated count (number/volume) 4.2 10*3 1.8-7.8 Blood lymphocytes automated count (number/volume) 3.4 10*3 1.0-4.0 Blood monocytes automated count (number/volume) 0.8 10*3 0.0-1.0 Automated eosinophil count 0.2 10*3/uL 0.0-0.3 Automated blood basophil count (count/volume) 0.0 10*3/uL 0.0-0.1 PT panel in platelet poor plasma by coagulation assay - 10/14/17 14:50 Prothrombin time (PT) in platelet poor plasma by coagulation assay 25.6 s 12.2-14.7 INR in platelet poor plasma or blood by coagulation assay 2.3 0.8-1.4 Comprehensive metabolic panel - 10/14/17 14:50 Serum or plasma sodium measurement (moles/volume) 143 mmol/L 135-145 Serum or plasma potassium measurement (moles/volume) 4.2 mmol/L 3.6-5.0 Serum or plasma chloride measurement (moles/volume) 108 mmol/L 98-107 Carbon dioxide 26 mmol/L 21-32 Serum or plasma anion gap determination (moles/volume) 9 mmol/L 5-14 Serum or plasma urea nitrogen measurement (mass/volume) 10 mg/dL 7-18 Serum or plasma creatinine measurement (mass/volume) 0.74 mg/dL 0.60-1.30 Serum or plasma urea nitrogen/creatinine mass ratio 14 NRG Serum or plasma creatinine measurement with calculation of estimated glomerular filtration rate > NRG Serum or plasma glucose measurement (mass/volume) 90 mg/dL 70-105 Serum or plasma calcium measurement (mass/volume) 9.7 mg/dL 8.5-10.1 Serum or plasma total bilirubin measurement (mass/volume) 0.3 mg/dL 0.1-1.0 Serum or plasma alkaline phosphatase measurement (enzymatic activity/volume) 108 U/L 40-136 Serum or plasma aspartate aminotransferase measurement (enzymatic activity/ volume) 23 U/L 5-34 Serum or plasma alanine aminotransferase measurement (enzymatic activity/volume ) 27 U/L 0-55 Serum or plasma protein measurement (mass/volume) 7.3 g/dL 6.4-8.2 Serum or plasma albumin measurement (mass/volume) 4.3 g/dL 3.2-4.5 Serum or plasma lithium measurement (moles/volume) - 10/14/17 14:50 BNP level 18.8 pg/mL <100.0 THYROID STIMULATING HORMONE - 10/14/17 14:50 THYROID STIMULATING HORMONE 0.75 u[iU]/mL 0.35-4.94 Complete urinalysis with reflex to culture - 10/14/17 14:55 Urine color determination YELLOW NRG Urine clarity determination VERY CLOUDY NRG Urine pH measurement by test strip 6 5-9 Specific gravity of urine by test strip 1.015 1.016- 1.022 Urine protein assay by test strip, semi-quantitative NEGATIVE NEGATIVE Urine glucose detection by automated test strip NEGATIVE NEGATIVE Erythrocytes detection in urine sediment by light microscopy NEGATIVE NEGATIVE Urine ketones detection by automated test strip NEGATIVE NEGATIVE Urine nitrite detection by test strip NEGATIVE NEGATIVE Urine total bilirubin detection by test strip NEGATIVE NEGATIVE Urine urobilinogen measurement by automated test strip (mass/volume) NORMAL NORMAL Urine leukocyte esterase detection by dipstick NEGATIVE NEGATIVE Automated urine sediment erythrocyte count by microscopy (number/high power field) NONE NRG Automated urine sediment leukocyte count by microscopy (number/high power field ) NONE NRG Bacteria detection in urine sediment by light microscopy FEW NRG Squamous epithelial cells detection in urine sediment by light microscopy 25-50 NRG Crystals detection in urine sediment by light microscopy NONE NRG Casts detection in urine sediment by light microscopy NONE NRG Mucus detection in urine sediment by light microscopy NEGATIVE NRG Complete urinalysis with reflex to culture NO NRG Methicillin resistant Staphylococcus aureus (MRSA) screening culture - 12:20 Methicillin resistant Staphylococcus aureus (MRSA) screening culture NEG NRG Encounters ACCT No. Visit Date/Time Discharge Status Pt. Type Provider Facility Loc./Unit Complaint [id number] 02/16/2018 12:00:00 02/16/2018 12:30:00 DIS Outpatient MELANIE SCHULZ MD [facility] PREOP LEFT CARPAL TUNNEL SYNDROME,LEFT CUBITAL TUNNEL [id number] 12/26/2017 09:50:00 12/26/2017 23:59:59 CLS Outpatient GILDA WESLEY DO S [facility] RAD SCREENING [id number] 10/17/2017 08:49:00 10/17/2017 23:59:59 CLS Preadmit ABDIRASHID WESLEY DOQUELINE S [facility] RAD HISTORY OF PE, DYSPNEA [id number] 10/14/2017 12:18:00 10/14/2017 23:59:59 CLS Preadmit LUPILLO [place] GILDA S [facility] RAD SHORTNESS OF BREATHE [id number] 10/14/2017 13:55:00 10/14/2017 16:50:00 DIS Emergency MARGRET BROCK APRN [facility] ER SOB, BODY ACHES [id number] 10/12/2017 14:59:00 10/12/2017 23:59:59 CLS Outpatient OUMAR ROSADO APRN [facility] RAD RIB PAIN [id number] 05/24/2017 14:43:00 05/24/2017 23:59:59 CLS Preadmit NAKUL KERN MD [facility] [id number] 05/23/2017 07:00:00 05/23/2017 23:59:59 CLS Outpatient NAKUL KERN MD [facility] T81.4XXA [id number] 05/17/2017 07:00:00 05/17/2017 23:59:59 CLS Outpatient NAKUL KERN MD [facility] T81.4XXA,Z79.2 [id number] 12/24/2016 15:38:00 12/24/2016 23:59:59 CLS Outpatient GILDA WESLEY DO S [facility] RAD SCREENING [id number] 10/08/2016 07:56:00 10/08/2016 23:59:59 CLS Preadmit GILDA WESLEY DO S [facility] RAD M54.5 [id number] 07/08/2016 15:45:00 07/08/2016 23:59:59 CLS Outpatient GILDA WESLEY DO S [facility] RAD LOW BACK ARCELIA [id number] 02/23/2016 09:37:00 02/23/2016 23:59:59 CLS Outpatient LAURIE PENNY APRN [facility] RAD COUGH,FEVER [id number] 01/28/2015 16:51:00 01/28/2015 23:59:59 CLS Outpatient INOCENCIO PRATER FACULTY HEAD [facility] CARD CHEST PAIN [id number] 2014 14:32:00 2014 23:59:59 CLS Outpatient GILDA WESLEY DO S [facility] RAD SCREENING [id number] 03/05/2014 15:15:00 03/05/2014 23:59:59 CLS Outpatient INOCENCIO PRATER M FACULTY HEAD [facility] RAD RT ELBOW PAIN [id number] 02/22/2018 08:00:00 PEN Preadmit ZEUS MANZO, MELANIE [facility] LEFT CARPAL TUNNEL SYNDROME,LEFT CUBITAL TUNNEL [id number] 03/05/2014 15:17:00 Document Registration [id number] 06/18/2010 03:30:00 Document Registration [id number] 06/08/2010 22:19:00 Document Registration [id number] 06/08/2010 11:43:00 Document Registration
[2018-02-22] MEDS ORDERED: LIDOCAINE 1% INJ 20 ML 20 ML VIAL ONE (07:47)
[2018-02-22] MEDS ORDERED: BUPIVACAINE 0.5% 30 ML (SENSORCAINE) VIAL ONE (07:47)
--- NOTE | 2018-02-22 07:50 | Progress Note-Pre Operative ---
Pre-Operative Progress Note H&P Reviewed The H&P was reviewed, patient examined and no changes noted. Date Seen by Provider: Feb 22, 2018 Time Seen by Provider: 07:49 Date H&P Reviewed: Feb 22, 2018 Time H&P Reviewed: 07:50 Pre-Operative Diagnosis: left carpal and cubital tunnel syndrome MELANIE SCHULZ MD Feb 22, 2018 07:50
--- NOTE | 2018-02-22 07:52 | Progress Note-Post Operative ---
Post-Operative Progess Note Surgeon (s)/Media Aid (s) Surgeon MELANIE SCHULZ MD Media Aid: Prem [place] Pre-Operative Diagnosis left carpal and cubital tunnel syndrome Post-Operative Diagnosis left carpal tunnel syndrome and left cubital tunnel syndrome Procedure & Operative Findings Date of Procedure 02/22/18 Procedure Performed/Findings left carpal tunnel release left cubital tunnel release Anesthesia Type GETA Estimated Blood Loss Estimated blood loss (mL): minimal Specimens/Packing Specimens Removed none Packing: none MELANIE SCHULZ MD Feb 22, 2018 07:52
[2018-02-22] MEDS ORDERED: proPOfol 200 MG/20 ML (DIPRIVAN) VIAL IV ONE (07:54)
[2018-02-22] MEDS ORDERED: fentaNYL INJECTION 100 MCG/2 ML AMP ONE (07:54)
[2018-02-22] MEDS ORDERED: LIDOCAINE PF 2% 5 ML (XYLOCAINE) VIAL ONE (07:54)
[2018-02-22] MEDS ORDERED: MIDAZOLAM 2 MG/2 ML (VERSED) VIAL ONE (07:54)
[2018-02-22] MEDS ORDERED: ROCURONIUM 10 MG/ML 5 ML SYRINGE IV ONE (07:54)
[2018-02-22] MEDS ORDERED: ONDANSETRON 4 MG/2 ML (SDV) Z0FRAN ONE (07:54)
[2018-02-22] MEDS ORDERED: ceFAZolin 1,000 MG/10 ML (ANCEF) VIAL ONE ×2 (07:57→08:00)
[2018-02-22] MEDS ORDERED: NS (IVPB) 50 ML ONE ×2 (07:57→08:01)
[2018-02-22 08:14] LABS: INR 1.1 (0.8-1.4); PROTHROMBIN TIME PATIENT 13.8 SEC (12.2-14.7)
[2018-02-22] MEDS ORDERED: HYDROcodone/APAP 7.5 MG/325 MG (LORTAB, LORCET PLUS) TABLET PO PRN (08:15)
[2018-02-22] MEDS ORDERED: SEVOFLURANE (ULTANE) 15 ML INHAL SOLN ONE ×4 (08:34→08:49)
[2018-02-22] MEDS ORDERED: HYDROmorphone 2 MG/ML VIAL (DILAUDID) IV ONE (09:15)
[2018-02-22] MEDS ORDERED: ONDANSETRON 4 MG/2 ML (SDV) Z0FRAN IVP PRN (09:15)
[2018-02-22] MEDS ORDERED: MEPERIDINE (DEMEROL) INJ 50 MG/ML IVP ONE (09:15)
[2018-02-22] MEDS ORDERED: morphine INJ 10 MG/ML 1ML (SYR OR VIAL) IVP ONE (09:15)
--- NOTE | 2018-02-22 09:23 | OPERATIVE REPORT ---
DATE OF SERVICE: 02/22/2018 PREOPERATIVE DIAGNOSES: 1. Left cubital tunnel syndrome. 2. Left carpal tunnel syndrome. POSTOPERATIVE DIAGNOSES: 1. Left cubital tunnel syndrome. 2. Left carpal tunnel syndrome. PROCEDURES: 1. Left cubital tunnel release. 2. Left carpal tunnel release. SURGEON: Aureliano Norris MD. SUPERVISOR ELECTRIC: POOJA Morgan, who assisted throughout the procedure and closed the incisions. ANESTHESIA: General endotracheal by Guille Floyd CRNA. TOURNIQUET TIME: 12 minutes at 250 mmHg. ESTIMATED BLOOD LOSS: Minimal. DRAINS: None. COMPLICATIONS: None. POSTOPERATIVE PLAN: Routine protocol. The patient was transferred to the recovery room in awake and stable condition. STATEMENT OF MEDICAL NECESSITY: The patient is a 52-year-old female with complaints of left hand pain and paresthesias. She complained of elbow pain as well as hand pain. She had a positive Tinel's at the cubital and carpal tunnels. She had a positive elbow flexion test. She had a positive Phalen's maneuver and EMG nerve conduction study revealed evidence of cubital and carpal tunnel syndrome and due to functional impairment and failure to improve with the conservative measures, the patient elected to proceed with surgical intervention. DESCRIPTION OF PROCEDURE: After risks and benefits of the procedure were discussed and questions were answered, an informed consent was signed and placed on the chart. The operative site was confirmed in the preoperative holding area initialed by the surgeon. The patient was then transferred to the operating room and after adequate levels of general endotracheal anesthetic were obtained, a timeout was called confirming the operative site. Left upper extremity was prepped and draped in the usual sterile fashion with the arm elevated, tourniquet inflated to 250 mmHg. An L-shaped incision was made posterior to the medial epicondyle. The underlying soft tissues were carefully dissected. The ulnar nerve was identified proximal to the medial epicondyle and dissected to a 0.9 cm proximally. This was then dissected through the cubital tunnel where there was marked constriction of the nerve noted. The nerve was intact and carefully protected throughout the procedure and intact at the conclusion of the procedure. This was dissected carefully free through the cubital tunnel and into the flexor/pronator mass where it had been fully freed, the elbow was taken through the range of motion with no subluxation noted. This wound was then irrigated and packed. Attention was then turned to the carpal tunnel. A longitudinal incision was made in line with the radial border of the ring finger. The underlying soft tissues were sharply dissected. The roof of the carpal tunnel was identified and sharply incised by pushing through with the scalpel blade while carefully protecting the median nerve. The median nerve was carefully protected and intact at the conclusion of the procedure. Distally, this was confirmed fully released proximally. Transverse carpal ligament was spread above and below with dissection scissors and then while carefully protecting, the median nerve was slightly opened the scissor edges under direct visualization. This was confirmed fully freed with a freer. The tourniquet was deflated for a total time 12 minutes. Pressure was used for hemostasis. The wounds were copiously irrigated. A 3-0 Vicryl was used to reapproximate the subcutaneous tissue at the elbow incision. Skin was closed with 4-0 nylon in both incisions in a running alternating horizontal mattress fashion. A soft dressing and brace were applied after infiltrating the incisions with plain Marcaine and the patient was transferred to the recovery room awake and stable condition. Job ID: [id number] DocumentID: [id number] Dictated Date: 02/22/2018 08:58:53 Soaker Date: 02/22/2018 09:22:55 Dictated By: AURELIANO NORRIS MD
[2018-02-22 10:00] VITALS: BP 127/74
[2018-02-22 10:30] VITALS: BP 130/70
[2018-02-22] MEDS ORDERED: HYDR-34 PO (10:46)
[2018-02-22 11:00] VITALS: BP 139/69
[2018-02-22 11:05] VITALS: BP 139/69
--- NOTE | 2018-02-22 13:47 | Anesthesia-General Post-Op ---
General Patient Condition Mental Status/LOC: Same as Preop Cardiovascular: Satisfactory Nausea/Vomiting: Absent Respiratory: Satisfactory Pain: Controlled Complications: Absent Post Op Complications Complications None Follow Up Care/Instructions Patient Instructions None needed. Anesthesia/Patient Condition Patient Condition Patient is doing well, no complaints, stable vital signs, no apparent adverse anesthesia problems. KOMAL GO DO Feb 22, 2018 13:47
== END 2018-02-22 11:05 | disposition home or self-care (01) ==
LOC: SDC 07:25
PROVIDERS: ATTEND Orthopaedic Surgery
DX: G56.22 Lesion of ulnar nerve, left upper limb (principal); G56.02 Carpal tunnel syndrome, left upper limb; I10 Essential (primary) hypertension; E11.9 Type 2 diabetes mellitus without complications; Z86.711 Personal history of pulmonary embolism; Z79.01 Long term (current) use of anticoagulants; Z79.84 Long term (current) use of oral hypoglycemic drugs; Z79.899 Other long term (current) drug therapy
CPT/HCPCS: 36415; 82962; 85610

== ENCOUNTER 2018-03-02 12:29 | Outpatient (RCR) | payer BC ==
[~2018-03-02 12:29] MED LIST changes: +HYDR-34 PO
== END 2018-05-18 09:51 | disposition home or self-care (01) ==
PROVIDERS: ATTEND Physical Medicine & Rehabilitation
DX: M54.2 Cervicalgia (principal)

== ENCOUNTER 2019-09-10 02:48 | Observation (INO) | payer BC, OTHER ==
[~2019-09-10] VITALS: Ht 172.3 cm; Wt 101.3 kg
[2019-09-10] VITALS (24 sets, daily range): BP systolic 122–160; BP diastolic 65–95
[~2019-09-10 02:48] MED LIST changes: +OMEP40CA27 PO
--- OUTSIDE RECORDS SUMMARY | 2019-09-10 02:57 | XMS REPORT | CCD ---
Author Author Nava Gee D.O. Organization [facility] Address [address] [place] [address] Phone Care Team Providers Care Rehabilitator Name Role Phone Jessica Gee D.O., PP Unavailable CCM Unavailable Summary Purpose Interface Exchange Insurance Providers Payer name Policy type / Coverage type Covered democrat ID Effective Begin Date Effective End Date Blue Cross Blue Shield Blue Cross/Blue Shield [id number] Unknown Family History Family History data not found Social History Social History Element Codes Description Effective Dates Tobacco history SNOMED CT: 038004264 Never smoker 10/13/2010 Allergies, Adverse Reactions, Alerts Substance Reaction Codes Entered Date Inactivated Date Status * NO KNOWN DRUG ALLERGIES Unknown 01/22/2010 No Inactiv e Date Active Problems Condition Codes Effective Dates Condition Status Type 2 diabetes mellitus without complications ICD-9: 250.00 ICD-10: E11.9 05/10/2013 Active Essential hypertension ICD-9: 401.9 ICD-10: I10 04/03/2019 Active Gastro-esophageal reflux disease without esophagitis I CD-9: 530.81 ICD-10: K21.9 05/04/2012 Active Urinary tract infection, site not specified ICD-9: 599 .0 ICD-10: N39.0 09/27/2018 Active Ventral hernia without obstruction or gangrene ICD-9: 553.20 ICD-10: K43.9 02/10/2015 Active Carpal tunnel syndrome, right upper limb ICD-9: 354.0 ICD-10: G56.01 04/24/2018 Active Primary insomnia ICD-9: 780.52 ICD-10: F51.01 04/24/2018 Active Mixed hyperlipidemia ICD-9: 272.4 ICD-10: E78.2 12/27/2017 Active Pain in unspecified joint ICD-9: 719.40 ICD-10: M25.50 12/27/2017 Active Encounter for other screening for malignant neoplasm o f breast ICD-9: V76.10 ICD-10: Z12.39 12/16/2016 Active Encounter for general adult medical examination withou t abnormal findings ICD-9: V70.0 ICD-10: Z00.00 12/16/2017 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 ICD-9: V58.6 1 ICD-10: Z79.01 02/05/2015 Active Acute sinusitis, unspecified ICD-9: 461.9 ICD-10: J01.90 03/22/2014 Active Dyspnea, unspecified ICD-9: 786.09 ICD-10: R06.00 10/14/2017 Active Personal history of pulmonary embolism ICD-9: V12.55 ICD-10: Z86.711 10/14/2017 Active Hematuria, unspecified ICD-9: 599.70 ICD-10: R31.9 10/13/2017 Active Pleurodynia ICD-9: 786.50 ICD-10: R07.81 10/12/2017 Active Acute bronchitis, unspecified ICD-9: 466.0 ICD-10: J20.9 09/16/2017 Active Cellulitis of neck ICD-9: 682.1 ICD-10: L03.221 05/25/2017 Active Other specified postprocedural states ICD-9: V45.89 ICD-10: Z98.890 05/25/2017 Active Tachycardia, unspecified ICD-9: 785.0 ICD-10: R00.0 05/25/2017 Active Lumbago with sciatica, right side ICD-9: 724.2 ICD-10: M54.41 01/03/2017 Active Pain in unspecified joint ICD-9: 719.49 ICD-10: M25.50 01/03/2017 Active Cough ICD-9: 786.2 ICD-10: R05 03/22/2014 Active Low back pain ICD-9: 724.2 ICD-10: M54.5 07/08/2016 Active Bitten or stung by nonvenomous insect an d other nonvenomous arthropods, subsequent encounter ICD-9: E906.4 ICD-10: W57.XXXD 09/23/2016 Active Bitten or stung by nonvenomous insect an d other nonvenomous arthropods, initial encounter ICD-9: 919.4 ICD-10: W57.XXXA 09/03/2016 Active Radiculopathy, lumbosacral region ICD-9: 724.4 ICD-10: M54.17 07/08/2016 Active Acute pharyngitis, unspecified ICD-9: 462 ICD-10: J02.9 06/21/2016 Active Fever, unspecified ICD-9: 780.60 ICD-10: R50.9 02/22/2016 Active Other disorders of facial nerve ICD-9: 351.8 ICD-10: G51.8 01/27/2015 Active TONSILLITIS, ACUTE ICD-9: 463 06/24/2014 Active COUGH ICD-9: 786.2 03/22/2014 Active EUSTACHIAN TUBE DYSFUNCTION ICD-9: 381.81 03/22/2014 Acti ve SINUSITIS, ACUTE ICD-9: 461.9 03/22/2014 Active Elbow pain, right ICD-9: 719.42 03/05/2014 Active GROSS HEMATURIA ICD-9: 599.71 10/19/2013 Active DM W/O COMPLICATION TYPE II ICD-9: 250.00 05/10/2013 Acti ve BRONCHITIS, ACUTE ICD-9: 466.0 03/01/2013 Active OTITIS MEDIA NOS ICD-9: 382.9 03/01/2013 Active DM W/O COMPLICATION TYPE II, UNCONTROLLED ICD-9: 250.02 2012 Active ROUTINE MEDICAL EXAM ICD-9: V70.0 01/11/2013 Active HZ (HERPES ZOSTER) ICD-9: 053.9 11/03/2012 Active GERD ICD-9: 530.81 05/04/2012 Active ALLERGIC RHINITIS ICD-9: 477.9 06/23/2011 Active PHARYNGITIS, ACUTE ICD-9: 462 12/02/2010 Active HYPERLIPIDEMIA NEC/NOS ICD-9: 272.4 11/12/2010 Active ABDOMINAL PAIN ICD-9: 789.00 06/08/2010 Active URINARY TRACT INFECTION ICD-9: 599.0 06/08/2010 Active Dysuria ICD-9: 788.1 05/29/2010 Active PAIN, LOWER BACK ICD-9: 724.2 05/29/2010 Active URTICARIA ICD-9: 708.9 05/20/2010 Active CHEST PAIN NOS ICD-9: 786.50 04/30/2010 Active DERMATITIS NOS ICD-9: 692.9 04/30/2010 Active Depression Unknown 01/22/2010 Active Gastroesophageal reflux disease Unknown 01/22/2010 Active Hypertension Unknown 01/22/2010 Active Pulmonary embolism Unknown 01/22/2010 Active CEPHALGIA ICD-9: 784.0 01/22/2010 Active DEPRESSIVE DISORDER NEC ICD-9: 311 01/22/2010 Active HYPERTENSION ICD-9: 401.9 01/22/2010 Active Medications Medication Codes Instructions Start Date Stop Date Status Fill Instructions warfarin 6 mg tablet RxNorm: 919875 1 Tablet(s) Oral QD 08/27/2019 Active metformin ER 500 mg tablet,extended release 24 hr RxNorm: 86 0975 1 Tablet(s) Oral two times a day Needs updated fasting labs 08/27/2019 09/26/2019 Active Needs updated fasting labs celecoxib 200 mg capsule RxNorm: 432954 TAKE 1 CAPSULE BY MOUTH TWICE DAILY 08/16/2019 11/13/2019 Active metformin ER 500 mg tablet,extended release 24 hr RxNorm: 86 0975 TAKE 1 TABLET BY MOUTH TWICE DAILY 07/30/2019 08/26/2019 Inactive warfarin 1 mg tablet RxNorm: 077988 1 Tablet(s) Oral QD along w ith warfarin 5mg 07/16/2019 08/26/2019 Inactive pravastatin 40 mg tablet RxNorm: 648893 TAKE 1 TABLET BY MOUTH ONCE DAILY 07/10/2019 10/07/2019 Active Toprol XL 200 mg tablet,extended release RxNorm: 308540 1 Table t(s) Oral QD 06/15/2019 12/11/2019 Active Toprol XL 200 mg tablet,extended release RxNorm: 315318 1 Table t(s) Oral QD 06/13/2019 06/14/2019 Inactive warfarin 6 mg tablet RxNorm: 245857 1 Tablet(s) Oral QD 06/04/2019 Inactive metformin ER 500 mg tablet,extended release 24 hr RxNorm: 86 0975 TAKE 1 TABLET BY MOUTH TWICE DAILY 05/29/2019 07/27/2019 Inactive Jardiance 25 mg tablet RxNorm: 9610482 1 Tablet(s) Oral QD 05/09/19 20 05/23/2019 Inactive Jardiance 25 mg tablet RxNorm: 2539043 1 Tablet(s) Oral QAM 020 09/06/2019 Active Jardiance 10 mg tablet RxNorm: 4573941 1 Tablet(s) Oral QD 05/09/19 20 No Stop Date Active warfarin 6 mg tablet RxNorm: 623320 1 Tablet(s) Oral QD then on Tue/ take along with Warfarin 1mg (7mg) 05/09/2019 06/03/2019 Inactive warfarin 1 mg tablet RxNorm: 056388 1 Tablet(s) Oral on Tue and with 6mg tablet (total 7mg) 05/09/2019 07/15/2019 Inactive warfarin 5 mg tablet RxNorm: 176306 1 Tablet(s) Oral QD 05/02/2019 Inactive warfarin 1 mg tablet RxNorm: 664505 TAKE 1 TABLET BY [facility] ONCE DAILY. TAKE AN ADDITIONAL TABLET ON TUESDAY AND Tuesday05/02/2019 05/08/2019 Inactiv e Coumadin 5 mg tablet RxNorm: 297944 TAKE 1 TABLET BY MOUTH ONCE DAILY 04/02/2019 05/02/2019 Inactive celecoxib 200 mg capsule RxNorm: 118548 TAKE 1 CAPSULE BY MOUTH TWICE DAILY 03/20/2019 06/17/2019 Inactive metformin ER 500 mg tablet,extended release 24 hr RxNorm: 86 0975 TAKE 1 TABLET BY MOUTH TWICE DAILY 03/19/2019 05/17/2019 Inactive pravastatin 40 mg tablet RxNorm: 492816 TAKE 1 TABLET BY MOUTH ONCE DAILY 03/19/2019 06/16/2019 Inactive Coumadin 5 mg tablet RxNorm: 583883 TAKE 1 TABLET BY MOUTH ONCE DAILY 02/28/2019 04/01/2019 Inactive warfarin 1 mg tablet RxNorm: 385078 TAKE 1 TABLET BY [facility] ONCE DAILY. TAKE AN ADDITIONAL TABLET ON TUESDAY AND Tuesday02/28/2019 05/01/2019 Inactiv e omeprazole 40 mg capsule,delayed release RxNorm: 473693 TAKE 1 CAPSULE BY MOUTH TWICE DAILY 02/19/2019 No Stop Date Active metformin ER 500 mg tablet,extended release 24 hr RxNorm: 86 0975 1 Tablet(s) PO BID 02/19/2019 03/18/2019 Inactive metformin ER 500 mg tablet,extended release 24 hr RxNorm: 86 0975 1 Tablet(s) PO BID 01/15/2019 02/13/2019 Inactive alprazolam 0.25 mg tablet RxNorm: 266393 1 Tablet(s) Oral prior to flight 01/03/2019 No Stop Date Active omeprazole 40 mg capsule,delayed release RxNorm: 315626 TAKE 1 CAPSULE BY MOUTH TWICE DAILY 12/20/2018 02/18/2019 Inactive metformin ER 500 mg tablet,extended release 24 hr RxNorm: 86 0975 1 Tablet(s) PO BID 12/11/2018 01/09/2019 Inactive pravastatin 40 mg tablet RxNorm: 921571 TAKE 1 TABLET BY MOUTH ONCE DAILY 12/11/2018 03/18/2019 Inactive Coumadin 5 mg tablet RxNorm: 584715 1 Tablet(s) PO QD 11/27/201809/2018 Inactive metformin ER 500 mg tablet,extended release 24 hr RxNorm: 86 0975 1 Tablet(s) PO BID 10/02/2018 11/30/2018 Inactive warfarin 1 mg tablet RxNorm: 383997 TAKE 1 TABLET BY [facility] ONCE DAILY. TAKE AN ADDITIONAL TABLET ON TUESDAY AND Tuesday10/02/2018 02/27/2019 Inactiv e Bactrim DS 800 mg-160 mg tablet RxNorm: 155766 1 Tablet(s) PO BID 0 09/27/2018 10/03/2018 Inactive warfarin 5 mg tablet RxNorm: 666033 1 Tablet(s) PO QD 09/27/201810/2018 Inactive Toprol XL 200 mg tablet,extended release RxNorm: 754583 1 Table t(s) PO QD 09/18/2018 06/12/2019 Inactive omeprazole 40 mg capsule,delayed release RxNorm: 434067 TAKE 1 CAPSULE BY MOUTH TWICE DAILY 09/11/2018 12/19/2018 Inactive Coumadin 5 mg tablet RxNorm: 399584 1 Tablet(s) PO QD 08/21/201811/2018 Inactive metformin ER 500 mg tablet,extended release 24 hr RxNorm: 86 0975 1 Tablet(s) PO BID 07/31/2018 09/28/2018 Inactive omeprazole 40 mg capsule,delayed release RxNorm: 572002 TAKE 1 CAPSULE BY MOUTH TWICE DAILY 06/27/2018 09/10/2018 Inactive metformin ER 500 mg tablet,extended release 24 hr RxNorm: 86 0975 Tablet(s) 1 Tablet(s) PO BID 06/27/2018 07/31/2018 Inactive Toprol XL 200 mg tablet,extended release RxNorm: 532918 1 Table t(s) PO QD 06/14/2018 09/17/2018 Inactive Coumadin 5 mg tablet RxNorm: 036215 1 Tablet(s) PO QD 06/14/201804/2018 Inactive metformin ER 500 mg tablet,extended release 24 hr RxNorm: 86 0975 Tablet(s) 1 Tablet(s) PO BID 05/22/2018 06/26/2018 Inactive Coumadin 5 mg tablet RxNorm: 411485 TAKE 1 TABLET BY MOUTH ONCE DAILY 05/11/2018 06/14/2018 Inactive Lovenox 40 mg/0.4 mL subcutaneous syringe RxNorm: 782057 40 Mil ligram(s) SQ QD 05/05/2018 09/26/2018 Inactive amitriptyline 25 mg tablet RxNorm: 915277 1 Tablet(s) PO QHS fo r sleep/HAs 04/24/2018 10/20/2018 Inactive [employer] Ultra Test strips RxNorm: Test blood sugar sigrid y (Dx:E11.65) 04/24/2018 No Stop Date Active celecoxib 200 mg capsule RxNorm: 592827 1 Capsule(s) PO BID 019 10/20/2018 Inactive Celebrex 200 mg capsule RxNorm: 861247 TAKE 1 CAPSULE BY MOUTH ONCE DAILY 04/19/2018 04/23/2018 Inactive warfarin 1 mg tablet RxNorm: 821775 1 Tablet(s) PO QD a nd additional tablet on Tue & Th04/14/2018 10/01/2018 Inactive Toprol XL 200 mg tablet,extended release RxNorm: 322096 TAKE 1 TABLET BY MOUTH ONCE DAILY 04/11/2018 06/14/2018 Inactive metformin ER 500 mg tablet,extended release 24 hr RxNorm: 86 0975 Tablet(s) 1 Tablet(s) PO BID 03/17/2018 05/21/2018 Inactive Coumadin 5 mg tablet RxNorm: 494681 TAKE 1 TABLET BY MOUTH ONCE DAILY 03/15/2018 05/10/2018 Inactive Lovenox 40 mg/0.4 mL subcutaneous syringe RxNorm: 931415 40 Mil ligram(s) SQ QD 01/27/2018 04/11/2018 Inactive omeprazole 40 mg capsule,delayed release RxNorm: 086101 TAKE 1 CAPSULE BY MOUTH TWICE DAILY 01/23/2018 06/26/2018 Inactive pravastatin 40 mg tablet RxNorm: 341454 TAKE 1 TABLET BY MOUTH ONCE DAILY 01/23/2018 12/10/2018 Inactive metformin ER 500 mg tablet,extended release 24 hr RxNorm: 86 0975 Tablet(s) 1 Tablet(s) PO BID 01/16/2018 01/15/2018 Inactive Toprol XL 200 mg tablet,extended release RxNorm: 360046 TAKE 1 TABLET BY MOUTH ONCE DAILY 01/16/2018 04/10/2018 Inactive Coumadin 5 mg tablet RxNorm: 640551 TAKE 1 TABLET BY MOUTH ONCE DAILY 01/06/2018 03/14/2018 Inactive Celebrex 200 mg capsule RxNorm: 070302 1 Capsule(s) PO BID 12/28/19 18 03/26/2018 Inactive metformin ER 500 mg tablet,extended release 24 hr RxNorm: 86 0975 1 Tablet(s) PO BID Needs APPT 12/21/2017 01/16/2018 Inactive omeprazole 40 mg capsule,delayed release RxNorm: 615804 TAKE 1 CAPSULE BY MOUTH TWICE DAILY 11/02/2017 01/22/2018 Inactive Celebrex 200 mg capsule RxNorm: 689679 1 Capsule(s) PO QD 11/01/2017 12/26/2017 Inactive Coumadin 5 mg tablet RxNorm: 577552 Tablet(s) TAKE ONE TABLET BY MOUTH ONCE DAILY. 10/31/2017 12/29/2017 Inactive warfarin 1 mg tablet RxNorm: 112779 1 Tablet(s) PO QD 10/31/201703/22 Inactive spironolactone 25 mg tablet RxNorm: 608616 TAKE TWO TAB LETS BY MOUTH IN THE MORNING 10/31/2017 04/23/2018 Inactive metformin ER 500 mg tablet,extended release 24 hr RxNorm: 86 0975 1 Tablet(s) PO BID Needs updated fasting lab 10/20/2017 12/21/2017 Inactive Medrol (Dale) 4 mg tablets in a dose pack RxNorm: 862013 Tablet(s) PO take as directed 10/12/2017 12/15/2017 Inactive Celebrex 200 mg capsule RxNorm: 978565 1 Capsule(s) PO QD 10/03/2017 10/02/2017 Inactive spironolactone 25 mg tablet RxNorm: 561117 TAKE TWO TAB LETS BY MOUTH IN THE MORNING 09/19/2017 10/30/2017 Inactive Zithromax Z-Dale 250 mg tablet RxNorm: 050755 Tablet(s) PO take as directed 09/16/2017 10/11/2017 Inactive Medrol (Dale) 4 mg tablets in a dose pack RxNorm: 603847 Tablet(s) take as directed PO 09/16/2017 10/11/2017 Inactive doxycycline hyclate 100 mg tablet RxNorm: 6792396 1 Tablet(s) PO BI D 09/16/2017 09/15/2017 Inactive doxycycline hyclate 100 mg tablet RxNorm: 1739947 1 Tablet(s) PO BI D 09/16/2017 09/25/2017 Inactive Tessalon Perles 100 mg capsule RxNorm: 190036 1 Capsule(s) PO T ID as needed 09/16/2017 12/15/2017 Inactive warfarin 1 mg tablet RxNorm: 429190 1 Tablet(s) PO QD 09/06/201710/19 Inactive Coumadin 5 mg tablet RxNorm: 490247 Tablet(s) TAKE ONE TABLET BY MOUTH ONCE DAILY. 09/06/2017 10/31/2017 Inactive Toprol XL 200 mg tablet,extended release RxNorm: 261189 1 Table t(s) PO QD 2017 01/02/2018 Inactive warfarin 1 mg tablet RxNorm: 171647 1 Tablet(s) PO QD DUE FOR L ABS AUGUST 12 08/29/2017 09/06/2017 Inactive Coumadin 5 mg tablet RxNorm: 662921 Tablet(s) TAKE ONE TABLET BY MOUTH ONCE DAILY. DUE FOR PT/INR AUGUST 12 08/29/2017 09/06/2017 Inactive Coumadin 5 mg tablet RxNorm: 531507 Tablet(s) TAKE ONE TABLET BY MOUTH ONCE DAILY. DUE FOR PT/INR AUGUST 12 08/01/2017 08/29/2017 Inactive warfarin 1 mg tablet RxNorm: 464075 1 Tablet(s) PO QD DUE FOR L ABS AUGUST 12 08/01/2017 08/29/2017 Inactive scopolamine 1 mg over 3 days transdermal patch RxNorm: 10085 2 1 TD take off in 72 hours. 08/01/2017 12/26/2017 Inactive pravastatin 40 mg tablet RxNorm: 538054 Tablet(s) TAKE ONE TABLET BY MOUTH ONCE DAILY 07/07/2017 01/02/2018 Inactive Coumadin 5 mg tablet RxNorm: 716909 Tablet(s) TAKE ONE TABLET BY MOUTH ONCE DAILY. DUE FOR PT/INR. 06/29/2017 08/01/2017 Inactive warfarin 1 mg tablet RxNorm: 744446 1 Tablet(s) PO QD 06/29/201707/19 Inactive Coumadin 5 mg tablet RxNorm: 582826 TAKE ONE TABLET BY MOUTH ONCE DAILY. DUE FOR PT/INR. 05/30/2017 06/29/2017 Inactive omeprazole 40 mg capsule,delayed release RxNorm: 839184 1 Capsu le(s) PO BID 05/30/2017 08/27/2017 Inactive Celebrex 200 mg capsule RxNorm: 368723 1 Capsule(s) PO QD 05/23/2017 10/03/2017 Inactive metformin ER 500 mg tablet,extended release 24 hr RxNorm: 86 0975 TAKE ONE TABLET BY MOUTH TWICE DAILY 05/20/2017 10/20/2017 Inactive Coumadin 5 mg tablet RxNorm: 487700 1 Tablet(s) PO QD due for PT/IN R 04/25/2017 05/24/2017 Inactive warfarin 1 mg tablet RxNorm: 128722 1 Tablet(s) PO QD due for l abs this week 03/16/2017 06/29/2017 Inactive omeprazole 40 mg capsule,delayed release RxNorm: 415037 1 Capsu le(s) PO BID 03/16/2017 05/30/2017 Inactive Celebrex 200 mg capsule RxNorm: 865365 1 Capsule(s) PO BID as n eeded for pain 03/16/2017 05/22/2017 Inactive Coumadin 5 mg tablet RxNorm: 211012 1 Tablet(s) PO QD due for PT/IN R 03/16/2017 04/14/2017 Inactive Celebrex 200 mg capsule RxNorm: 063907 1 Capsule(s) PO BID as n eeded for pain 02/09/2017 03/15/2017 Inactive Toprol XL 200 mg tablet,extended release RxNorm: 084785 1 Table t(s) PO QD 02/08/2017 2017 Inactive Celebrex 200 mg capsule RxNorm: 802786 1 Capsule(s) PO BID as n eeded for pain 01/14/2017 02/08/2017 Inactive omeprazole 40 mg capsule,delayed release RxNorm: 171441 1 Capsu le(s) PO BID 01/12/2017 03/16/2017 Inactive Coumadin 5 mg tablet RxNorm: 669753 1 Tablet(s) PO QD 12/15/201602/19 Inactive warfarin 1 mg tablet RxNorm: 189035 1 Tablet(s) PO QD 12/15/201602/19 Inactive metformin ER 500 mg tablet,extended release 24 hr RxNorm: 86 0975 Tablet(s) TAKE ONE TABLET BY MOUTH TWICE DAILY 11/29/2016 02/26/2017 Inactive omeprazole 40 mg capsule,delayed release RxNorm: 002590 1 Capsu le(s) PO BID 11/29/2016 12/28/2016 Inactive pravastatin 40 mg tablet RxNorm: 357392 Tablet(s) TAKE ONE TABLET BY MOUTH ONCE DAILY 11/19/2016 07/07/2017 Inactive omeprazole 40 mg capsule,delayed release RxNorm: 618169 1 Capsu le(s) PO BID 10/19/2016 10/18/2016 Inactive omeprazole 40 mg capsule,delayed release RxNorm: 685239 1 Capsu le(s) PO BID 10/19/2016 11/17/2016 Inactive pantoprazole 40 mg tablet,delayed release RxNorm: 098317 1 Tabl et(s) PO QD 09/30/2016 10/18/2016 Inactive pantoprazole 40 mg tablet,delayed release RxNorm: 782956 1 Tabl et(s) PO QD 09/30/2016 09/29/2016 Inactive Zofran ODT 4 mg disintegrating tablet RxNorm: 518357 1 Tablet(s) PO Q4H as needed for nausea 09/15/2016 01/02/2017 Inactive Coumadin 5 mg tablet RxNorm: 931376 1 Tablet(s) PO QD 09/14/201611/20 Inactive warfarin 1 mg tablet RxNorm: 480134 1 Tablet(s) PO QD 09/14/201611/20 Inactive spironolactone 25 mg tablet RxNorm: 888143 2 Tablet(s) PO QAM 09/0301/02/2017 Inactive Wellbutrin XL 300 mg 24 hr tablet, extended release RxNorm: 841054 TAKE ONE TABLET BY MOUTH ONCE DAILY 08/26/2016 12/26/2017 Inactive Toprol XL 200 mg tablet,extended release RxNorm: 939714 1 Table t(s) PO QD 07/28/2016 02/08/2017 Inactive metformin ER 500 mg tablet,extended release 24 hr RxNorm: 86 0975 Tablet(s) TAKE ONE TABLET BY MOUTH TWICE DAILY 07/15/2016 11/29/2016 Inactive cyclobenzaprine 5 mg tablet RxNorm: 460614 1 Tablet(s) PO QHS f or spasm 07/08/2016 08/06/2016 Inactive Celebrex 200 mg capsule RxNorm: 1 Capsule(s) PO BID 07/08/2016 Inactive spironolactone 25 mg tablet RxNorm: 166670 1 Tablet(s) PO QAM 07/0609/02/2016 Inactive Wellbutrin XL 300 mg 24 hr tablet, extended release RxNorm: 882025 TAKE ONE TABLET BY MOUTH ONCE DAILY 06/15/2016 07/14/2016 Inactive Coumadin 5 mg tablet RxNorm: 390509 1 Tablet(s) PO QD 06/08/201608/20 Inactive warfarin 1 mg tablet RxNorm: 750705 1 Tablet(s) PO QD 06/08/201608/20 Inactive Toprol XL 200 mg tablet,extended release RxNorm: 605458 TAKE ONE TABLET BY MOUTH ONCE DAILY 04/26/2016 07/28/2016 Inactive pravastatin 40 mg tablet RxNorm: 515051 TAKE ONE TABLET BY MOUT H ONCE DAILY 04/19/2016 10/15/2016 Inactive Coumadin 5 mg tablet RxNorm: 540972 1 Tablet(s) PO QD 03/09/201605/19 Inactive warfarin 1 mg tablet RxNorm: 312153 1 Tablet(s) PO QD 03/09/201605/19 Inactive metformin ER 500 mg tablet,extended release 24 hr RxNorm: 86 0975 TAKE ONE TABLET BY MOUTH TWICE DAILY 02/25/2016 07/15/2016 Inactive spironolactone 25 mg tablet RxNorm: 542433 TAKE ONE TAB LET BY MOUTH ONCE DAILY IN THE MORNING 02/25/2016 07/06/2016 Inactive prednisone 20 mg tablet RxNorm: 086566 1 Tablet(s) PO QAM 02/16/2016 02/20/2016 Inactive cefdinir 300 mg capsule RxNorm: 527885 2 Capsule(s) PO QD 02/16/2016 02/25/2016 Inactive Toprol XL 200 mg tablet,extended release RxNorm: 091990 TAKE ONE TABLET BY MOUTH ONCE DAILY 01/26/2016 04/24/2016 Inactive Aciphex 20 mg tablet,delayed release RxNorm: 791417 1 Tablet(s) PO BID 12/24/2015 09/29/2016 Inactive Omeprazole and Pepci d have not helped. Coumadin 5 mg tablet RxNorm: 587527 1 Tablet(s) PO QD 12/10/201502/19 Inactive Coumadin 5 mg tablet RxNorm: 423763 1 Tablet(s) PO QD 12/08/201511/20 Inactive Toprol XL 200 mg tablet,extended release RxNorm: 329811 TAKE ONE TABLET BY MOUTH ONCE DAILY 11/20/2015 01/18/2016 Inactive warfarin 1 mg tablet RxNorm: 196993 1 Tablet(s) PO QD 11/03/201502/19 Inactive pravastatin 40 mg tablet RxNorm: 825870 Tablet(s) TAKE ONE TABLET BY MOUTH ONCE DAILY 10/20/2015 01/17/2016 Inactive pravastatin 40 mg tablet RxNorm: 849631 TAKE ONE TABLET BY MOUT H ONCE DAILY 10/20/2015 10/19/2015 Inactive metformin ER 500 mg tablet,extended release 24 hr RxNorm: 86 0975 TAKE ONE TABLET BY MOUTH TWICE DAILY 10/03/2015 12/31/2015 Inactive Toprol XL 200 mg tablet,extended release RxNorm: 412533 TAKE ONE TABLET BY MOUTH ONCE DAILY 09/17/2015 11/15/2015 Inactive Coumadin 5 mg tablet RxNorm: 692381 1 Tablet(s) PO QD 09/02/201511/19 Inactive Wellbutrin XL 300 mg 24 hr tablet, extended release RxNorm: 179142 TAKE ONE TABLET BY MOUTH ONCE DAILY 08/01/2015 10/29/2015 Inactive Pepcid 20 mg tablet RxNorm: 699146 1 Tablet(s) PO BID as needed 05/24/2017 Inactive warfarin 1 mg tablet RxNorm: 270814 TAKE ONE TABLET BY MOUTH ON CE DAILY 07/08/2015 11/03/2015 Inactive pravastatin 40 mg tablet RxNorm: 584100 1 Tablet(s) PO QD 07/08/2015 10/05/2015 Inactive spironolactone 25 mg tablet RxNorm: 586532 TAKE ONE TAB LET BY MOUTH ONCE DAILY IN THE MORNING 06/13/2015 09/10/2015 Inactive Coumadin 5 mg tablet RxNorm: 536289 1 Tablet(s) PO QD 06/05/201508/19 Inactive Wellbutrin XL 300 mg 24 hr tablet, extended release RxNorm: 456651 TAKE ONE TABLET BY MOUTH ONCE DAILY 05/16/2015 09/26/2018 Inactive Wellbutrin XL 300 mg 24 hr tablet, extended release RxNorm: 552321 TAKE ONE TABLET BY MOUTH ONCE DAILY 05/16/2015 06/14/2015 Inactive metformin ER 500 mg tablet,extended release 24 hr RxNorm: 86 0975 TAKE ONE TABLET BY MOUTH TWICE DAILY 05/16/2015 08/13/2015 Inactive pravastatin 40 mg tablet RxNorm: 492065 1 Tablet(s) PO QD 04/10/2015 07/07/2015 Inactive Aciphex 20 mg tablet,delayed release RxNorm: 655182 1 Tablet(s) PO BID 03/07/2015 09/02/2015 Inactive Omeprazole and Pepci d have not helped. Toprol XL 200 mg tablet,extended release RxNorm: 292084 1 Table t(s) PO QD 03/05/2015 08/31/2015 Inactive Aciphex 20 mg tablet,delayed release RxNorm: 042896 1 Tablet(s) PO QD 03/04/2015 03/06/2015 Inactive Omeprazole and Pepci d have not helped. Coumadin 5 mg tablet RxNorm: 984844 1 Tablet(s) PO QD 02/28/2015 03/11/2015 Inactive Aciphex 20 mg tablet,delayed release RxNorm: 018425 1 Tablet(s) PO BID 02/11/2015 03/03/2015 Inactive Omeprazole and Pepci d have not helped. metformin ER 500 mg tablet,extended release 24 hr RxNorm: 86 0975 1 Tablet(s) PO BID 01/10/2015 04/09/2015 Inactive pravastatin 40 mg tablet RxNorm: 029215 1 Tablet(s) PO QD 01/06/2015 04/05/2015 Inactive Wellbutrin XL 300 mg 24 hr tablet, extended release RxNorm: 767857 TAKE ONE TABLET BY MOUTH ONCE DAILY 12/19/2014 02/16/2015 Inactive amoxicillin 500 mg capsule RxNorm: 905329 2 Capsule(s) PO BID 12/0612/15/2014 Inactive Flonase 50 mcg/actuation nasal spray,suspension RxNorm: 8963 23 2 [place] each nostril NASAL QD 12/06/2014 03/05/2015 Inactive Coumadin 5 mg tablet RxNorm: 544339 1 Tablet(s) PO QD 11/28/201410/2014 Inactive spironolactone 25 mg tablet RxNorm: 646259 1 Tablet(s) PO QAM 11/2602/23/2015 Inactive Coumadin 5 mg tablet RxNorm: 508786 1 Tablet(s) PO QD 1 Tablet(s) PO QD- NEED TO CHECK LABS 10/30/2014 11/28/2014 Inactive warfarin 1 mg tablet RxNorm: 517438 1 Tablet(s) PO QD 10/30/201409/2015 Inactive Aciphex 20 mg tablet,delayed release RxNorm: 449230 1 Tablet(s) PO QD 10/02/2014 02/10/2015 Inactive Omeprazole and Pepci d have not helped. Coumadin 5 mg tablet RxNorm: 329403 1 Tablet(s) PO QD 1 Tablet(s) PO QD- NEED TO CHECK LABS 09/30/2014 10/30/2014 Inactive pravastatin 40 mg tablet RxNorm: 847238 1 Tablet(s) PO QD 09/25/2014 01/06/2015 Inactive warfarin 1 mg tablet RxNorm: 900115 1 Tablet(s) PO QD T [place] ONE TABLET BY MOUTH DIRECTED ON MON AND THUR 08/28/2014 10/29/2014 Inactive metformin ER 500 mg tablet,extended release 24 hr RxNorm: 86 0975 1 Tablet(s) PO BID 08/28/2014 01/10/2015 Inactive amoxicillin 875 mg tablet RxNorm: 872370 1 Tablet(s) PO BID 015 08/18/2014 Inactive Toprol XL 200 mg tablet,extended release RxNorm: 441462 TAKE ONE TABLET BY MOUTH ONCE DAILY 07/22/2014 03/05/2015 Inactive Coumadin 5 mg tablet RxNorm: 138225 1 Tablet(s) PO QD 07/01/201409/18 Inactive amoxicillin 875 mg tablet RxNorm: 558286 1 Tablet(s) PO BID 015 06/30/2014 Inactive pravastatin 40 mg tablet RxNorm: 133537 1 Tablet(s) PO QD needs fasting labs 06/19/2014 09/25/2014 Inactive Coumadin 5 mg tablet RxNorm: 827736 1 Tablet(s) PO QD 1 Tablet(s) PO QD TAKE ONE TABLET BY MOUTH ONCE DAILY-need labs 05/28/2014 07/01/2014 Inactive warfarin 1 mg tablet RxNorm: 791077 1 Tablet(s) PO As Directed 05/1908/28/2014 Inactive pravastatin 40 mg tablet RxNorm: 589352 1 Tablet(s) PO QD needs fasting labs 05/14/2014 06/19/2014 Inactive metformin ER 500 mg tablet,extended release 24 hr RxNorm: 86 0975 1 Tablet(s) PO BID 04/25/2014 08/28/2014 Inactive spironolactone 25 mg tablet RxNorm: 059956 1 Tablet(s) PO QAM 04/2511/26/2014 Inactive Coumadin 5 mg tablet RxNorm: 603606 1 Tablet(s) PO QD 1 Tablet(s) PO QD TAKE ONE TABLET BY MOUTH ONCE DAILY 04/23/2014 05/28/2014 Inactive Coumadin 5 mg tablet RxNorm: 158780 1 Tablet(s) PO QD 1 Tablet(s) PO QD TAKE ONE TABLET BY MOUTH ONCE DAILY 03/22/2014 04/20/2014 Inactive Tessalon Perles 100 mg capsule RxNorm: 267062 1 Capsule(s) PO TID 0 03/22/2014 03/28/2014 Inactive cefdinir 300 mg capsule RxNorm: 295039 2 Capsule(s) PO QD 03/22/2014 03/31/2014 Inactive Medrol (Dale) 4 mg tablets in a dose pack RxNorm: 610137 Tablet(s) PO as directed 03/05/2014 08/08/2014 Inactive Coumadin 5 mg tablet RxNorm: 547935 1 Tablet(s) PO QD 1 Tablet(s) PO QD TAKE ONE TABLET BY MOUTH ONCE DAILY 02/19/2014 03/20/2014 Inactive pravastatin 40 mg tablet RxNorm: 959383 1 Tablet(s) PO QD 02/04/2014 05/14/2014 Inactive Coumadin 5 mg tablet RxNorm: 552616 1 Tablet(s) PO QD T [place] ONE TABLET BY MOUTH ONCE DAILY 01/21/2014 02/19/2014 Inactive Medrol (Dale) 4 mg tablets in a dose pack RxNorm: 946287 Tablet(s) PO as directed 01/18/2014 03/04/2014 Inactive cefdinir 300 mg capsule RxNorm: 822370 2 Capsule(s) PO QD 01/16/2014 01/25/2014 Inactive metformin ER 500 mg tablet,extended release 24 hr RxNorm: 86 0975 1 Tablet(s) PO BID 12/17/2013 04/25/2014 Inactive Wellbutrin SR 150 mg tablet,sustained-release RxNorm: 262391 1 Tablet(s) PO BID 11/30/2013 02/27/2014 Inactive spironolactone 25 mg tablet RxNorm: 643479 1 Tablet(s) PO QAM 10/2204/25/2014 Inactive Macrobid 100 mg capsule RxNorm: 168011 1 Capsule(s) PO BID 10/20/19 14 10/25/2013 Inactive Macrobid 100 mg capsule RxNorm: 117313 1 Capsule(s) PO BID 10/20/19 14 10/18/2013 Inactive Toprol XL 100 mg tablet,extended release RxNorm: 357855 1 Table t(s) PO QD 10/15/2013 01/15/2014 Inactive Toprol XL 200 mg tablet,extended release RxNorm: 751255 1 Table t(s) PO QD 10/02/2013 07/22/2014 Inactive Wellbutrin XL 300 mg 24 hr tablet, extended release RxNorm: 690683 1 Tablet(s) PO QD 09/28/2013 12/19/2014 Inactive Aciphex 20 mg tablet,delayed release RxNorm: 352448 1 Tablet(s) PO QD 08/29/2013 10/02/2014 Inactive Omeprazole and Pepci d have not helped. Coumadin 5 mg tablet RxNorm: 824716 1 Tablet(s) PO QD 08/14/201307/20 Inactive Coumadin 5 mg tablet RxNorm: 444699 1 Tablet(s) PO QD 08/14/201305/2013 Inactive pravastatin 40 mg tablet RxNorm: 013631 1 Tablet(s) PO QD 07/24/2013 02/04/2014 Inactive warfarin 1 mg tablet RxNorm: 033824 1 Tablet(s) PO QD T [place] ONE TABLET BY MOUTH DIRECTED ON MON AND TH07/09/2013 05/28/2014 Inactive warfarin 5 mg tablet RxNorm: 054032 1 Tablet(s) PO QD T [place] ONE TABLET BY MOUTH EVERY DAY 06/08/2013 07/07/2013 Inactive spironolactone 25 mg tablet RxNorm: 162897 1 Tablet(s) PO QAM 05/3010/15/2013 Inactive clindamycin 300 mg capsule RxNorm: 983921 2 Capsule(s) PO TID 04/1704/30/2013 Inactive warfarin 5 mg tablet RxNorm: 416291 1 Tablet(s) PO QD 03/12/201305/20 Inactive azithromycin 250 mg tablet RxNorm: 537829 2 Tablet(s) PO QD 013 03/07/2013 Inactive metformin ER 500 mg tablet,extended release 24 hr RxNorm: 86 0975 1 Tablet(s) PO BID 02/22/2013 12/17/2013 Inactive spironolactone 25 mg tablet RxNorm: 564091 1 Tablet(s) PO QAM 01/2205/30/2013 Inactive metformin ER 500 mg tablet,extended release 24 hr RxNorm: 86 0977 1 Tablet(s) PO BID 01/11/2013 02/21/2013 Inactive pravastatin 40 mg tablet RxNorm: 474196 1 Tablet(s) PO QD 01/11/2013 07/24/2013 Inactive warfarin 5 mg tablet RxNorm: 119455 1 Tablet(s) PO QD 01/04/201302/19 Inactive warfarin 1 mg tablet RxNorm: 440888 Tablet(s) PO TAKE O NE TABLET BY MOUTH DIRECTED ON MON AND THUR 12/14/2012 07/08/2013 Inactive scopolamine 1.5 mg 72 hr Transderm Patch RxNorm: 110577 TD Apply 1 patch behind ear every 72 hours, replace after 3 days. 11/08/2012 01/15/2014 Inacti ve Pepcid 20 mg tablet RxNorm: 412284 1 Tablet(s) PO BID as needed 01/31/2013 Inactive Famvir 500 mg tablet RxNorm: 925311 1 Tablet(s) PO Q8H 11/03/2012 Inactive Aciphex 20 mg tablet,delayed release RxNorm: 522189 1 Tablet(s) PO QD 11/03/2012 05/01/2013 Inactive Omeprazole and Pepci d have not helped. gabapentin 300 mg capsule RxNorm: 700157 Capsule(s) PO TID 11/04/19 13 01/15/2014 Inactive warfarin 5 mg tablet RxNorm: 636025 1 Tablet(s) PO QD 11/02/201212/19 Inactive Wellbutrin XL 300 mg 24 hr tablet, extended release RxNorm: 214349 1 Tablet(s) PO QD 10/17/2012 04/30/2013 Inactive pravastatin 40 mg tablet RxNorm: 528246 Tablet(s) PO TA KE ONE TABLET BY MOUTH EVERY DAY. NEED FASTING LABS 09/18/2012 01/10/2013 Inactive Toprol XL 200 mg tablet,extended release RxNorm: 228844 Tablet(s) PO TAKE ONE TABLET BY MOUTH EVERY DAY 09/08/2012 10/01/2013 Inactive warfarin 5 mg tablet RxNorm: 126508 1 Tablet(s) PO QD 08/31/201210/19 Inactive pravastatin 40 mg tablet RxNorm: 292246 1 Tablet(s) PO QD Needs fasting labs 08/18/2012 09/16/2012 Inactive TAKE ONE TABLET BY M OUTH EVERY DAY warfarin 1 mg tablet RxNorm: 899656 1 Tablet(s) PO As directed on Mon and Thurs 08/11/2012 12/13/2012 Inactive spironolactone 25 mg tablet RxNorm: 619332 1 Tablet(s) PO QAM 07/1110/08/2012 Inactive warfarin 5 mg tablet RxNorm: 242715 1 Tablet(s) PO QD 07/03/201208/19 Inactive Diflucan 100 mg tablet RxNorm: 303993 1 Tablet(s) PO QD 05/04/2012 Inactive Cipro 500 mg tablet RxNorm: 022660 1 Tablet(s) PO BID 05/04/201204/22 Inactive Aciphex 20 mg tablet,delayed release RxNorm: 531244 1 Tablet(s) PO QD 05/04/2012 07/02/2012 Inactive Omeprazole and Pepci d have not helped. warfarin 5 mg tablet RxNorm: 625030 1 Tablet(s) PO QD 05/02/201206/19 Inactive warfarin 5 mg tablet RxNorm: 185545 1 Tablet(s) PO QD 03/02/201204/21 Inactive Toprol XL 200 mg tablet,extended release RxNorm: 830397 1 Table t(s) PO QD 03/02/2012 05/30/2012 Inactive spironolactone 25 mg tablet RxNorm: 865253 1 Tablet(s) PO QAM 02/0707/11/2012 Inactive pravastatin 40 mg tablet RxNorm: 795023 Tablet(s) PO 01/31/201208/17 Inactive TAKE ONE TABLET BY MOUTH EVERY DAY pravastatin 40 mg tablet RxNorm: 270488 1 Tablet(s) PO QD 01/31/2012 08/18/2012 Inactive omeprazole 40 mg capsule,delayed release RxNorm: 552737 1 Capsule(s) PO QD for stomach 01/11/2012 11/02/2012 Inactive for stomach warfarin 5 mg tablet RxNorm: 217323 1 Tablet(s) PO QD 01/03/201202/18 Inactive warfarin 5 mg tablet RxNorm: 047876 1 Tablet(s) PO QD 12/03/201112/19 Inactive pravastatin 40 mg tablet RxNorm: 132886 1 Tablet(s) PO QD 11/25/2011 01/23/2012 Inactive cefdinir 300 mg Cap RxNorm: 619108 1 Capsule(s) PO BID 10/11/201103/2011 Inactive Culturelle 10 billion cell Cap RxNorm: 576032 1 Capsule(s) PO BID 0 10/11/2011 11/09/2011 Inactive Diflucan 100 mg Tab RxNorm: 294244 1 Tablet(s) PO QD 10/11/201110/19 Inactive Wellbutrin XL 300 mg 24 hr tablet, extended release RxNorm: 027923 1 Tablet(s) PO QD 09/14/2011 10/17/2012 Inactive pravastatin 40 mg tablet RxNorm: 815787 1 Tablet(s) PO QD 08/25/2011 11/25/2011 Inactive Coumadin 5 mg tablet RxNorm: 448517 Tablet(s) PO Take as direct ed by doctor. 07/07/2011 12/03/2011 Inactive Singulair 10 mg Tab RxNorm: 720175 1 Tablet(s) PO QD al lergy medication. (Please try to be consistent in dosing) 06/23/2011 01/15/2014 Inactive Diflucan 100 mg Tab RxNorm: 948291 1 Tablet(s) PO QD 06/14/201107/02 Inactive cefdinir 300 mg Cap RxNorm: 273630 1 Capsule(s) PO BID 06/14/201106/2011 Inactive pravastatin 40 mg Tab RxNorm: 301899 1 Tablet(s) PO QD 05/25/201108/2011 Inactive warfarin 5 mg Tab RxNorm: 239517 Tablet(s) PO 05/25/2011 10/18/2011 In active TAKE ONE TABLET BY MOUTH EVERY DAY Toprol XL 200 mg tablet,extended release RxNorm: 612718 1 Table t(s) PO QD 03/05/2011 06/02/2011 Inactive spironolactone 25 mg tablet RxNorm: 037004 1 Tablet(s) PO QAM 02/2402/08/2012 Inactive omeprazole 40 mg capsule,delayed release RxNorm: 772537 1 Capsule(s) PO QD for stomach 01/06/2011 01/11/2012 Inactive for stomach warfarin 5 mg Tab RxNorm: 310467 1 Tablet(s) PO QD 12/17/2010 011 Inactive warfarin 5 mg Tab RxNorm: 929682 1 Tablet(s) PO QD 11/18/2010 011 Inactive spironolactone 25 mg Tab RxNorm: 843057 1 Tablet(s) PO QAM 11/13/19 11 02/24/2011 Inactive Coumadin 6 mg Tab RxNorm: 522432 1 Tablet(s) PO QD 10/28/2010 011 Inactive May have generic hydrochlorothiazide 25 mg Tab RxNorm: 144520 1 Tablet(s) PO QAM 11/11/2010 Inactive Wellbutrin XL 300 mg 24 hr Tab RxNorm: 656066 1 Tablet(s) PO QD 09/14/2011 Inactive Septra DS 800 mg-160 mg Tab RxNorm: 637740 1 Tablet(s) PO BID 06/0806/17/2010 Inactive Pyridium 100 mg Tab RxNorm: 3421714 1 Tablet(s) PO TID 06/08/2010 Inactive Wellbutrin XL 300 mg 24 hr Tab RxNorm: 478874 1 Tablet(s) PO QD 05/201007/15/2010 Inactive hydroxyzine 25 mg Tab RxNorm: 368362 1 Tablet(s) PO QID prn itching--take routinely at bedtime. (pt. may not refil at this time but later) 05/20/2010 10/10/2011 Inactive Zyrtec 10 mg Tab RxNorm: 3659099 1 Tablet(s) PO BID 05/20/20102010 Inactive Coumadin 1 mg Tab RxNorm: 634484 1 Tablet(s) PO 6mg M-F, 7mg S-S 11/16/2010 Inactive hydroxyzine 25 mg Tab RxNorm: 077162 1 Tablet(s) PO QID prn itching--take routinely at bedtime 04/30/2010 05/19/2010 Inactive Toprol XL 200 mg 24 hr Tab RxNorm: 305449 1 Tablet(s) PO QD 011 06/23/2010 Inactive lisinopril-hydrochlorothiazide 10 mg-12.5 mg Tab RxNorm: 197 885 1 Tablet(s) PO QD 04/20/2010 04/29/2010 Inactive omeprazole 40 mg Cap, Delayed Release RxNorm: 939932 1 Capsule(s) PO QD for stomach 04/20/2010 08/17/2010 Inactive lisinopril-hydrochlorothiazide 10 mg-12.5 mg Tab RxNorm: 197 885 Tablet(s) PO 1QDAM - TAKE ONE TABLET BY MOUTH EVERY DAY IN THE MORNING 03/09/2010 Inactive lisinopril-hydrochlorothiazide 10 mg-12.5 mg Tab RxNorm: 197 885 1 Tablet(s) PO QD 02/27/2010 04/20/2010 Inactive Wellbutrin XL 300 mg 24 hr Tab RxNorm: 619899 1 Tablet(s) PO QD 05/21/2010 Inactive lisinopril-hydrochlorothiazide 10 mg-12.5 mg Tab RxNorm: 197 885 1 Tablet(s) PO QD 01/28/2010 02/26/2010 Inactive omeprazole 40 mg Cap, Delayed Release RxNorm: 734574 1 Capsule(s) PO QD for stomach 01/22/2010 04/20/2010 Inactive Altace 10 mg Cap RxNorm: 298875 1 Capsule(s) PO QD for BP 01/22/2010 03/22/2010 Inactive Coumadin 6 mg Tab RxNorm: 738084 1 Tablet(s) PO QD May have generic 12/03/2009 05/01/2010 Inactive Coumadin 6 mg Tab RxNorm: 980398 1 Tablet(s) PO 12/01/2009 12/02/2009 Inactive Coumadin 1 mg Tab RxNorm: 643644 1 Tablet(s) PO QD 11/28/2009 010 Inactive Coumadin 1 mg Tab RxNorm: 563532 1 Tablet(s) PO QD 07/02/2009 010 Inactive lisinopril-hydrochlorothiazide 20 mg-12.5 mg Tab RxNorm: 197 886 2 Tablet(s) PO QAM No Start Date 10/12/2010 Inactive Zofran ODT 4 mg disintegrating tablet RxNorm: 652564 1 Tablet(s) PO Q6H as needed for nausea No Start Date 09/14/2016 Inactive Wellbutrin XL 300 mg 24 hr Tab RxNorm: 987713 1 Tablet(s) PO QD No Start Date 02/02/2010 Inactive alprazolam 0.25 mg tablet RxNorm: 858256 1 Tablet(s) PO prior t o flight No Start Date 05/24/2017 Inactive hydrocodone-acetaminophen 5 mg-500 mg Tab RxNorm: 577349 1-2 Tablet(s) PO Q4H as needed for pain No Start Date 12/02/2010 Inactive Toprol XL 100 mg 24 hr Tab RxNorm: 716736 1 Tablet(s) PO QD No Star t Date 10/14/2013 Inactive Celebrex 200 mg capsule RxNorm: 744224 1 Capsule(s) PO QD No Start Date 05/22/2017 Inactive Flexeril 10 mg tablet RxNorm: 655537 1 Tablet(s) PO TID No Start Da te 04/02/2019 Inactive scopolamine 1 mg over 3 days transdermal patch RxNorm: 41153 2 1 TD take off in 72 hours. No Start Date 07/31/2017 Inactive OneTouch Ultra Test strips RxNorm: Test blood sugar daily No S tart Date 04/23/2018 Inactive Medrol (Dale) 4 mg tablets in a dose pack RxNorm: 697032 Tablet(s) PO As directed No Start Date 01/15/2014 Inactive Coumadin 5 mg Tab RxNorm: 156278 1 Tablet(s) PO QD No Start Date 06/19 Inactive Pepcid 40 mg Tab RxNorm: 740317 1 Tablet(s) PO QD No Start Date 06/23 Inactive prednisone 10 mg Tab RxNorm: 262627 1 Tablet(s) PO BID No Start Date 06/23/2010 Inactive spironolactone 25 mg tablet RxNorm: 389645 1 Tablet(s) PO QAM No St art Date 09/26/2018 Inactive scopolamine 1.5 mg 72 hr Transderm Patch RxNorm: 349799 TD Apply 1 patch behind ear every 72 hours, replace after 3 days. No Start Date 11/07/2012 Inacti ve azithromycin 250 mg Tab RxNorm: 569361 Tablet(s) PO 2 t abs on day one and one tab on days 2-5. (antibiotic) No Start Date 10/10/2011 Inactive Medrol (Dale) 4 mg Tabs in a Dose Pack RxNorm: 240051 1 Tablet(s) PO as directed. (steroid pack) No Start Date 10/10/2011 Inactive Lovenox 40 mg/0.4 mL subcutaneous syringe RxNorm: 699830 40 Mil ligram(s) SQ QD No Start Date 05/04/2018 Inactive Celebrex 200 mg capsule RxNorm: 851740 1 Capsule(s) PO BID as n eeded for pain No Start Date 01/13/2017 Inactive warfarin 1 mg tablet RxNorm: 959420 1 Tablet(s) PO As directed on Tue and No Start Date 08/10/2012 Inactive cefuroxime axetil 500 mg Tab RxNorm: 983570 1 Tablet(s) PO BID No S tart Date 06/13/2011 Inactive Lovenox 40 mg/0.4 mL subcutaneous syringe RxNorm: 518226 40 Mil ligram(s) SQ QD No Start Date 01/26/2018 Inactive Coumadin 5 mg tablet RxNorm: 627557 1 Tablet(s) PO QD No Start Date 0 08/13/2013 Inactive Medrol (Dale) 4 mg tablets in a dose pack RxNorm: 145632 Tablet(s) PO as directed No Start Date 01/17/2014 Inactive Coumadin 6 mg tablet RxNorm: 550699 1 Tablet(s) PO QD No Start Date 0 06/20/2016 Inactive warfarin 5 mg tablet RxNorm: 877708 1 Tablet(s) PO QD No Start Date 0 12/02/2011 Inactive Medrol (Dale) 4 mg Tabs in a Dose Pack RxNorm: 726528 Tablet(s) PO as directed No Start Date 06/23/2010 Inactive Flonase 50 mcg/actuation nasal spray,suspension RxNorm: 8963 23 2 [place] NASAL BID No Start Date 12/05/2014 Inactive Pepcid 20 mg tablet RxNorm: 436028 1 Tablet(s) PO BID as needed No Start Date 11/02/2012 Inactive spironolactone 25 mg tablet RxNorm: 413241 1 Tablet(s) PO QAM No St art Date 04/02/2019 Inactive Medication Administered No Medication Administered data Immunizations No Immunization data Results Observation Observation Code Item Item Code Result Date S ervice Location MICROALBUMIN URINE RANDOM 86551 CREAT MG/D 139 MG/DL Unknown MICROALBUMIN URINE RANDOM 51147 CRE/100 1.39 G/L 12/20 Unknown Procedures Procedure Codes Date URINALYSIS NONAUTO W/O SCOPE CPT-4: 88021 09/27/2018 URINE CULTURE/ COLONY COUNT CPT-4: 06457 09/27/2018 URINALYSIS NONAUTO W/O SCOPE CPT-4: 44231 10/13/2017 URINE CULTURE/ COLONY COUNT CPT-4: 42553 10/13/2017 STREP A ASSAY W/OPTIC CPT-4: 87048 06/21/2016 STREP A ASSAY W/OPTIC CPT-4: 67261 06/24/2014 THER/PROPH/DIAG INJ SC/IM CPT-4: 58241 03/22/2014 METHYLPREDNISOLONE 40 MG INJ CPT-4: J1030 03/22/2014 TRIAMCINOLONE ACET INJ NOS CPT-4: J3301 03/22/2014 URINALYSIS NONAUTO W/O SCOPE CPT-4: 03944 10/19/2013 URINE CULTURE/ COLONY COUNT CPT-4: 79981 10/19/2013 CEFTRIAXONE SODIUM INJECTION CPT-4: J0696 03/02/2013 THER/PROPH/DIAG INJ SC/IM CPT-4: 91190 03/02/2013 CEFTRIAXONE SODIUM INJECTION CPT-4: J0696 03/01/2013 THER/PROPH/DIAG INJ SC/IM CPT-4: 90540 03/01/2013 THER/PROPH/DIAG INJ SC/IM CPT-4: 35332 03/01/2013 METHYLPREDNISOLONE 40 MG INJ CPT-4: J1030 03/01/2013 TRIAMCINOLONE ACET INJ NOS CPT-4: J3301 03/01/2013 MICROALBUMIN QUANTITATIVE CPT-4: 95026 01/11/2013 URINE CULTURE/ COLONY COUNT CPT-4: 53425 05/04/2012 URINALYSIS NONAUTO W/O SCOPE CPT-4: 17982 05/04/2012 URINE CULTURE/ COLONY COUNT CPT-4: 21626 05/29/2010 TRIAMCINOLONE ACET INJ NOS CPT-4: J3301 05/20/2010 METHYLPREDNISOLONE 40 MG INJ CPT-4: J1030 05/20/2010 THER/PROPH/DIAG INJ SC/IM CPT-4: 21895 05/20/2010 Vital Signs Date Vital 05/09/2019 Blood Pressure 1: 126/82 Code: 8480-6 Heart Rate 1: 68 bpm Respiratory Rate: 20 bpm SpO2: 98% Temperature: 36.6 (C) / 97.9 (F) We ight: 230 lbs 04/03/2019 Blood Pressure 1: 136/76 Code: 8480-6 Heart Rate 1: 56 bpm Respiratory Rate: 16 bpm SpO2: 97% Temperature: 36.8 (C) / 98.3 (F) We ight: 236 lbs 09/27/2018 Blood Pressure 1: 136/82 Code: 8480-6 Heart Rate 1: 68 bpm Respiratory Rate: 20 bpm SpO2: 96% Temperature: 36.6 (C) / 97.9 (F) We ight: 244 lbs 04/24/2018 Blood Pressure 1: 134/78 Code: 8480-6 BMI: 35.1 Code: 30682-0 Heart Rate 1: 76 bpm Height: 5'9" Respiratory Rate: 20 bpm Temperature: 36 .6 (C) / 97.8 (F) Weight: 238 lbs 12/27/2017 Blood Pressure 1: 126/64 Code: 8480-6 BMI: 34.7 Code: 19447-7 Heart Rate 1: 72 bpm Height: 5'9" Respiratory Rate: 20 bpm Temperature: 36 .8 (C) / 98.2 (F) Weight: 235 lbs 10/12/2017 Blood Pressure 1: 142/80 Code: 8480-6 BMI: 35.1 Code: 62022-6 Heart Rate 1: 98 bpm Height: 5'9" Respiratory Rate: 22 bpm SpO2: 100% Tempera ture: 36.5 (C) / 97.7 (F) Weight: 238 lbs 09/16/2017 Blood Pressure 1: 136/82 Code: 8480-6 BMI: 34.1 Code: 39890-5 Heart Rate 1: 82 bpm Height: 5'9" Respiratory Rate: 18 bpm SpO2: 96% Tempera ture: 36.3 (C) / 97.3 (F) Weight: 231 lbs 05/25/2017 Blood Pressure 1: 122/82 Code: 8480-6 BMI: 32.3 Code: 90330-3 Heart Rate 1: 116 bpm Height: 5'9" Respiratory Rate: 20 bpm SpO2: 98% Tempera ture: 35.6 (C) / 96.1 (F) Weight: 219 lbs 01/03/2017 Blood Pressure 1: 126/78 Code: 8480-6 BMI: 33.4 Code: 32981-5 Heart Rate 1: 72 bpm Height: 5'9" Respiratory Rate: 20 bpm Temperature: 36 .8 (C) / 98.2 (F) Weight: 226 lbs 09/23/2016 Blood Pressure 1: 126/82 Code: 8480-6 BMI: 33.8 Code: 85774-5 Heart Rate 1: 80 bpm Height: 5'9" Respiratory Rate: 20 bpm SpO2: 97% Tempera ture: 36.8 (C) / 98.2 (F) Weight: 229 lbs 09/03/2016 Blood Pressure 1: 188/64 Code: 8480-6 Bl ood Pressure 2: 166/92 Code: 8480-6 BMI: 34.4 Code: 76900-3 Heart Rate 1: 66 bpm Height: 5'9" Res piratory Rate: 20 bpm SpO2: 98% Temperature: 35.7 (C) / 96.2 (F) Weight: 233 lbs 07/08/2016 Blood Pressure 1: 134/82 Code: 8480-6 Heart Rate 1: 64 bpm Height: 5'9" Respiratory Rate: 20 bpm SpO2: 97% Temperature: 36.6 (C) / 97.8 (F) Weight: 06/21/2016 Blood Pressure 1: 112/68 Code: 8480-6 BMI: 33.8 Code: 86907-0 Heart Rate 1: 64 bpm Height: 5'9" Respiratory Rate: 20 bpm SpO2: 95% Tempera ture: 36.3 (C) / 97.3 (F) Weight: 229 lbs 02/23/2016 Blood Pressure 1: 128/78 Code: 8480-6 BMI: 33.4 Code: 35944-0 Heart Rate 1: 74 bpm Height: 5'9" Respiratory Rate: 24 bpm SpO2: 94% Tempera ture: 36.2 (C) / 97.1 (F) Weight: 226 lbs 02/16/2016 Blood Pressure 1: 122/64 Code: 8480-6 Heart Rate 1: 60 bpm Respiratory Rate: 20 bpm Temperature: 36.7 (C) / 98.1 (F) Weight: 225 lbs 02/11/2015 Blood Pressure 1: 138/82 Code: 8480-6 Heart Rate 1: 88 bpm Respiratory Rate: 20 bpm Temperature: 35.9 (C) / 96.7 (F) Weight: 222 lbs 01/28/2015 Blood Pressure 1: 152/90 Code: 8480-6 Heart Rate 1: 82 bpm Respiratory Rate: 18 bpm Temperature: 36.1 (C) / 97.0 (F) Weight: 222 lbs 12/06/2014 Blood Pressure 1: 122/80 Code: 8480-6 BMI: 32.2 Code: 97810-7 Heart Rate 1: 80 bpm Height: 5'9" Respiratory Rate: 20 bpm Temperature: 37 .0 (C) / 98.6 (F) Weight: 218 lbs 08/09/2014 Blood Pressure 1: 132/84 Code: 8480-6 BMI: 33.1 Code: 91823-1 Heart Rate 1: 72 bpm Height: 5'9" Respiratory Rate: 20 bpm Temperature: 36 .7 (C) / 98.0 (F) Weight: 224 lbs 06/24/2014 Blood Pressure 1: 132/80 Code: 8480-6 BMI: 32.8 Code: 56625-9 Heart Rate 1: 68 bpm Height: 5'9" Respiratory Rate: 20 bpm Temperature: 36 .4 (C) / 97.6 (F) Weight: 222 lbs 03/22/2014 Blood Pressure 1: 128/84 Code: 8480-6 BMI: 32.5 Code: 94257-8 Heart Rate 1: 78 bpm Height: 5'9" Respiratory Rate: 22 bpm Temperature: 36 .0 (C) / 96.8 (F) Weight: 220 lbs 03/05/2014 Blood Pressure 1: 124/78 Code: 8480-6 BMI: 31.9 Code: 69704-0 Heart Rate 1: 82 bpm Height: 5'9" Respiratory Rate: 20 bpm Temperature: 35 .8 (C) / 96.4 (F) Weight: 216 lbs 01/16/2014 Blood Pressure 1: 116/68 Code: 8480-6 BMI: 33.8 Code: 27579-8 Heart Rate 1: 72 bpm Height: 5'7" Respiratory Rate: 20 bpm Temperature: 36 .6 (C) / 97.9 (F) Weight: 216 lbs 05/10/2013 Blood Pressure 1: 124/86 Code: 8480-6 BMI: 34.3 Code: 16758-2 Heart Rate 1: 84 bpm Height: 5'7" Respiratory Rate: 20 bpm Temperature: 36 .9 (C) / 98.5 (F) Weight: 219 lbs 04/17/2013 Blood Pressure 1: 116/68 Code: 8480-6 Heart Rate 1: 74 bpm Respiratory Rate: 20 bpm Temperature: 36.1 (C) / 97.0 (F) Weight: 216 lbs 03/05/2013 Blood Pressure 1: 128/72 Code: 8480-6 Heart Rate 1: 70 bpm Respiratory Rate: 22 bpm Temperature: 36.4 (C) / 97.6 (F) Weight: 220 lbs 03/02/2013 Blood Pressure 1: 120/80 Code: 8480-6 Heart Rate 1: 78 bpm Respiratory Rate: 20 bpm Temperature: 36.3 (C) / 97.3 (F) Weight: 220 lbs 03/01/2013 Blood Pressure 1: 118/78 Code: 8480-6 Heart Rate 1: 78 bpm Respiratory Rate: 20 bpm Temperature: 36.4 (C) / 97.5 (F) Weight: 220 lbs 02/22/2013 Blood Pressure 1: 116/84 Code: 8480-6 BMI: 33.1 Code: 45095-0 Heart Rate 1: 64 bpm Height: 5'9" Respiratory Rate: 20 bpm Temperature: 36 .4 (C) / 97.6 (F) Weight: 224 lbs 01/11/2013 Blood Pressure 1: 126/84 Code: 8480-6 BMI: 35.3 Code: 86504-7 Heart Rate 1: 68 bpm Height: 5'9" Respiratory Rate: 20 bpm Temperature: 36 .7 (C) / 98.1 (F) Weight: 239 lbs 11/03/2012 Blood Pressure 1: 104/70 Code: 8480-6 BMI: 34.4 Code: 67169-4 Heart Rate 1: 72 bpm Height: 5'9" Respiratory Rate: 20 bpm Temperature: 36 .8 (C) / 98.3 (F) Weight: 233 lbs 05/04/2012 Blood Pressure 1: 124/74 Code: 8480-6 BMI: 33.7 Code: 25167-0 Heart Rate 1: 84 bpm Height: 5'9" Temperature: 36.3 (C) / 97.3 (F) Weight: 228 lbs 10/11/2011 Blood Pressure 1: 110/70 Code: 8480-6 BMI: 33.7 Code: 42697-6 Heart Rate 1: 64 bpm Height: 5'9" Temperature: 36.8 (C) / 98.3 (F) Weight: 228 lbs 06/23/2011 Blood Pressure 1: 114/70 Code: 8480-6 BMI: 33.4 Code: 74520-7 Heart Rate 1: 80 bpm Height: 5'9" Respiratory Rate: 20 bpm Temperature: 36 .7 (C) / 98.0 (F) Weight: 226 lbs 06/14/2011 Blood Pressure 1: 118/74 Code: 8480-6 BMI: 33.4 Code: 71691-8 Heart Rate 1: 80 bpm Height: 5'9" Temperature: 37.1 (C) / 98.7 (F) Weight: 226 lbs 12/02/2010 Temperature: 36.7 (C) / 98.0 (F) Weight: 225 lbs 11/12/2010 Blood Pressure 1: 128/86 Code: 8480-6 Heart Rate 1: 76 bpm Respiratory Rate: 20 bpm Temperature: 36.9 (C) / 98.4 (F) Weight: 223 lbs 10/26/2010 Blood Pressure 1: 124/74 Code: 8480-6 Te mperature: 24.4 (C) / 76.0 (F) 10/13/2010 Blood Pressure 1: 126/82 Code: 8480-6 BMI: 32.6 Code: 81414-3 Heart Rate 1: 68 bpm Height: 5'9" Respiratory Rate: 18 bpm Temperature: 36 .3 (C) / 97.4 (F) Weight: 221 lbs 06/24/2010 Blood Pressure 1: 108/76 Code: 8480-6 Heart Rate 1: 80 bpm Weight: 212 lbs 06/08/2010 Blood Pressure 1: 108/66 Code: 8480-6 Heart Rate 1: 72 bpm Temperature: 36.2 (C) / 97.2 (F) 05/20/2010 Blood Pressure 1: 120/72 Code: 8480-6 Heart Rate 1: 72 bpm Temperature: 36.4 (C) / 97.6 (F) 05/13/2010 Blood Pressure 1: 110/64 Cod e: 8480-6 04/30/2010 Blood Pressure 1: 142/82 Code: 8480-6 Te mperature: 36.6 (C) / 97.8 (F) Weight: 220 lbs 02/27/2010 Blood Pressure 1: 138/80 Cod e: 8480-6 01/22/2010 Blood Pressure 1: 140/92 Code: 8480-6 BMI: 31.3 Code: 94207-1 Heart Rate 1: 60 bpm Height: 5'10" Temperature: 36.7 (C) / 98.0 (F) Weight: 218 lbs Functional Status No Functional Status data Reason For Visit Reason For Visit Effective Dates Notes follow up 05/09/2019 follow up 04/03/2019 gastroesophageal reflux 09/27/2018 follow up 04/24/2018 Patient states her i nsurance has changed and celebrex should be covered at twice daily now follow up 12/27/2017 Patient taking metfo rmin 500mg 1-2 daily back pain 10/13/2017 dyspnea 10/12/2017 cough 09/16/2017 Patient has had ongo ing cough for 1 week-described as dry, hacking and unable to sleep at night. Last night, left ear started hurting. 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 Patient had infection to the site- Patient currently on ciprofloxacin 750mg BID- Patient is also seeing infectious disease for recurrent infections. follow up 01/03/2017 follow up 09/23/2016 tick bite 09/03/2016 Patient pulled tick pulled off of upper back on 08/13/16 while camping around [place], [place]. Patient states is tender around tick bite, but no other symptoms back pain 07/08/2016 sore throat 06/21/2016 live in family with Influenza B+ cough 02/23/2016 sinus congestion 02/16/2016 follow up 02/11/2015 Discuss Labs pain, generalized 01/28/2015 sinusitis 12/06/2014 sinusitis 08/09/2014 sore throat 06/24/2014 chest congestion 03/22/2014 elbow pain 03/05/2014 sinusitis 01/16/2014 flank pain 10/19/2013 follow up 05/10/2013 2mo fwup otalgia 04/17/2013 follow up 03/05/2013 follow up 03/02/2013 1 Day otalgia 03/01/2013 follow up 02/22/2013 6wk fwup follow up 01/11/2013 Discuss recent welln ess labs rash 11/03/2012 gastroesophageal reflux 05/04/2012 sore throat 10/11/2011 sinus congestion 06/23/2011 sinus congestion 06/14/2011 sore throat 12/02/2010 pain in throat follow up 11/12/2010 discuss labs, merrill g coumadin and is to recheck next Tuesday high blood pressure 10/13/2010 increased since had to stop Lisinopril HCT follow up 06/24/2010 hospital [facility], still on Septra DS and Levaquin ~generic 06/08/2010 Has positive UTI fro m a week ago Tuesday, never had Rx called in. Pain is worsening and is in RLQ, doesn't know if it is related. Unable to sleep at night due to sharp pain. Has Hysterectomy, but still has right ovary where pain is located. ~generic 05/20/2010 Has reoccurring rash on bilat arms and legs. Arms have mostly resolved, but continues on legs x 1 month. Has been treating with Zyrtec, not helping. Pt states areas are red, non raised, and itching. Using hydroxyzine sparingly, however works well. rash 04/30/2010 rash on bilateral ar ms and legs x 1 week. rash sensation is itchy with "electrical shocks" . patient complains also of generalized itching but no rash. headache 01/22/2010 Encounters Encounter Performer Location Codes Date ([id number]) OFFICE/OUTPATIENT VISIT EST Diagnosis: Type 2 diabetes mellitus without complications[ICD10: E11.9] Jessica GEE [facility] CPT-4: 32747 05/09/2019 ([id number]) OFFICE/OUTPATIENT VISIT EST Diagnosis: Type 2 diabetes mellitus without complications[ICD10: E11.9] Diagnosis: Essential hypertension[ICD10: I10] Jessica GEE [facility] CPT-4: 24930 04/03/2019 ([id number]) OFFICE/OUTPATIENT VISIT EST Diagnosis: Gastro-esophageal reflux disease without esophagitis[ICD10: K21.9] Diagnosis: Urinary tract infection, site not specified[ICD10: N39.0] Diagnosis: Ventral hernia without obstruction or gangrene[ICD10: K43.9] Jessica GEE [facility] CPT-4: 60559 09/27/2018 ([id number]) OFFICE/OUTPATIENT VISIT EST Diagnosis: Essential (primary) hypertension[ICD10: I10] Diagnosis: Type 2 diabetes mellitus without complications[ICD10: E11.9] Diagnosis: Carpal tunnel syndrome, right upper limb[ICD10: G56.01] Diagnosis: Primary insomnia[ICD10: F51.01] [facility] 29730 04/24/2018 ([id number]) OFFICE/OUTPATIENT VISIT EST Diagnosis: Type 2 diabetes mellitus without complications[ICD10: E11.9] Diagnosis: Mixed hyperlipidemia[ICD10: E78.2] Diagnosis: Essential (primary) hypertension[ICD10: I10] Diagnosis: Pain in unspecified joint[ICD10: M25.50] [facility] 94212 12/27/2017 ([id number]) NURSE/OUTPATIENT VISIT EST Diagnosis: Hematuria, unspecified[ICD10: R31.9] Jessica Anderson [facility] CPT-4: 22190 10/13/2017 ([id number]) OFFICE/OUTPATIENT VISIT EST Diagnosis: Pleurodynia[ICD10: R07.81] [facility]PT[facility]: 80341 10/12/2017 ([id number]) OFFICE/OUTPATIENT VISIT EST Diagnosis: Acute bronchitis, unspecified[ICD10: J20.9] [facility] 10443 09/16/2017 ([id number]) OFFICE/OUTPATIENT VISIT EST Diagnosis: Other specified postprocedural states[ICD10: Z98.890] Diagnosis: Cellulitis of neck[ICD10: L03.221] Diagnosis: Tachycardia, unspecified[ICD10: R00.0] Jessica Anderson [facility] CPT-4: 51355 05/25/2017 ([id number]) OFFICE/OUTPATIENT VISIT EST Diagnosis: Lumbago with sciatica, right side[ICD10: M54.41] Diagnosis: Pain in unspecified joint[ICD10: M25.50] Jessica EGE [facility] CPT-4: 97451 01/03/2017 ([id number]) OFFICE/OUTPATIENT VISIT EST Diagnosis: Bitten or stung by nonvenomous insect and other nonvenomous arthropods, subsequent encounter[ICD10: W57.XXXD] Diagnosis: Essential (primary) hypertension[ICD10: I10] Diagnosis: Low back pain[ICD10: M54.5] Jessica CARBAJAL [facility] CPT-4: 15312 09/23/2016 OFFICE/OUTPATIENT VISIT EST Diagnosis: Bitten or stung by nonvenomous insect and other nonvenomous arthropods, initial encounter[ICD10: W57.XXXA] Diagnosis: Essential (primary) hypertension[ICD10: I10] Kaitlynn Mosley JESSICA GEE [facility] CPT-4: 98264 09/03/2016 ([id number]) OFFICE/OUTPATIENT VISIT EST Diagnosis: Low back pain[ICD10: M54.5] Diagnosis: Radiculopathy, lumbosacral region[ICD10: M54.17] Jessica GEE [facility] CPT-4: 37164 07/08/2016 ([id number]) OFFICE/OUTPATIENT VISIT EST Diagnosis: Acute pharyngitis, unspecified[ICD10: J02.9] Jessica GEE [facility] CPT-4: 40508 06/21/2016 ([id number]) OFFICE/OUTPATIENT VISIT EST Diagnosis: Cough[ICD10: R05] Diagnosis: Fever, unspecified[ICD10: R50.9] JaniyaHarjit GEE [facility] CPT-4: 11968 02/23/2016 ([id number]) OFFICE/OUTPATIENT VISIT EST Diagnosis: Acute sinusitis, unspecified[ICD10: J01.90] Jessica GEE [facility] CPT-4: 38613 02/16/2016 OFFICE/OUTPATIENT VISIT EST Diagnosis: Type 2 diabetes mellitus without complications[ICD10: E11.9] Diagnosis: Gastro-esophageal reflux disease without esophagitis[ICD10: K21.9] Diagnosis: Ventral hernia without obstruction or gangrene[ICD10: K43.9] Suki GEE DO [facility] CPT-4: 09169 02/11/2015 OFFICE/OUTPATIENT VISIT EST 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] Diagnosis: Essential (primary) hypertension[ICD10: I10] Suki GEE DO [facility] CPT-4: 81273 01/28/2015 OFFICE/OUTPATIENT VISIT EST Diagnosis: SINUSITIS, ACUTE[ICD9: 461.9] Kaitlynn GEE [facility] CPT-4: 47941 12/06/2014 ([id number]) OFFICE/OUTPATIENT VISIT EST Diagnosis: SINUSITIS, ACUTE[ICD9: 461.9] Kaitlynn GEE DO [facility] CPT-4: 13358 08/09/2014 ([id number]) OFFICE/OUTPATIENT VISIT EST Diagnosis: TONSILLITIS, ACUTE[ICD9: 463] Suki GEE [facility] CPT-4: 50831 06/24/2014 OFFICE/OUTPATIENT VISIT EST Diagnosis: SINUSITIS, ACUTE[ICD9: 461.9] Diagnosis: EUSTACHIAN TUBE DYSFUNCTION[ICD9: 381.81] Diagnosis: COUGH[ICD9: 786.2] Suki GEE DO [facility] CPT-4: 51359 03/22/2014 OFFICE/OUTPATIENT VISIT EST Diagnosis: Elbow pain, right[ICD9: 719.42] Suki GEE DO [facility] CPT-4: 08549 03/05/2014 OFFICE/OUTPATIENT VISIT EST Diagnosis: SINUSITIS, ACUTE[ICD9: 461.9] Jessica GEE [facility] CPT-4: 82296 01/16/2014 ([id number]) OFFICE/OUTPATIENT VISIT EST Diagnosis: GROSS HEMATURIA[ICD9: 599.71] Jessica GEE [facility] CPT-4: 90811 10/19/2013 ([id number]) OFFICE/OUTPATIENT VISIT EST Diagnosis: DM W/O COMPLICATION TYPE II[ICD9: 250.00] Diagnosis: HYPERLIPIDEMIA NEC/NOS[ICD9: 272.4] Jessica KING Monica GEE [facility] CPT-4: 00991 05/10/2013 ([id number]) OFFICE/OUTPATIENT VISIT EST Diagnosis: SINUSITIS, ACUTE[ICD9: 461.9] Jessica VO DomingaLloyd [facility] CPT-4: 74926 04/17/2013 OFFICE/OUTPATIENT VISIT EST Diagnosis: OTITIS MEDIA NOS[ICD9: 382.9] Diagnosis: COUGH[ICD9: 786.2] Suki SMITHLINE Monica GEE DO [facility] CPT-4: 06534 03/05/2013 OFFICE/OUTPATIENT VISIT EST Diagnosis: COUGH[ICD9: 786.2] Diagnosis: BRONCHITIS, ACUTE[ICD9: 466.0] Suki FerreiraLucilaamrit SMITHLINE Dominga GEE [facility] CPT-4: 13109 03/02/2013 OFFICE/OUTPATIENT VISIT EST Diagnosis: COUGH[ICD9: 786.2] Diagnosis: OTITIS MEDIA NOS[ICD9: 382.9] Diagnosis: BRONCHITIS, ACUTE[ICD9: 466.0] Suki GEE [facility] CPT-4: 90013 03/01/2013 OFFICE/OUTPATIENT VISIT EST Diagnosis: DM W/O COMPLICATION TYPE II, UNCONTROLLED[ICD9: 250.02] Jessicashannan VO Monica GEE [facility] CPT-4: 95826 02/22/2013 ([id number]) PREV VISIT EST AGE 40-64 Diagnosis: DM W/O COMPLICATION TYPE II, UNCONTROLLED[ICD9: 250.02] Diagnosis: HYPERTENSION[ICD9: 401.9] Diagnosis: ROUTINE MEDICAL EXAM[ICD9: V70.0] Jessica Lucas DomingaLloyd LUPILLO [facility] CPT-4: 15025 01/11/2013 OFFICE/OUTPATIENT VISIT EST Diagnosis: HZ (HERPES ZOSTER)[ICD9: 053.9] Kaitlynn VO DomingaLloyd LUPILLO [facility] CPT-4: 83021 11/03/2012 OFFICE/OUTPATIENT VISIT EST Diagnosis: URINARY TRACT INFECTION[ICD9: 599.0] Diagnosis: GERD[ICD9: 530.81] Diagnosis: PHARYNGITIS, ACUTE[ICD9: 462] Jessica GEE [facility] CPT-4: 77910 05/04/2012 OFFICE/OUTPATIENT VISIT EST Diagnosis: COUGH[ICD9: 786.2] Diagnosis: SINUSITIS, ACUTE[ICD9: 461.9] Diagnosis: PHARYNGITIS, ACUTE[ICD9: 462] Jessica GEE [facility] CPT-4: 64490 10/11/2011 OFFICE/OUTPATIENT VISIT EST Diagnosis: COUGH[ICD9: 786.2] Diagnosis: SINUSITIS, ACUTE[ICD9: 461.9] Diagnosis: PHARYNGITIS, ACUTE[ICD9: 462] Diagnosis: ALLERGIC RHINITIS[ICD9: 477.9] Xiomara Michael JESSICA [facility]: 87256 06/23/2011 OFFICE/OUTPATIENT VISIT EST Diagnosis: COUGH[ICD9: 786.2] Diagnosis: SINUSITIS, ACUTE[ICD9: 461.9] Diagnosis: PHARYNGITIS, ACUTE[ICD9: 462] Jessica GEE [facility] CPT-4: 57483 06/14/2011 OFFICE/OUTPATIENT VISIT EST Diagnosis: SINUSITIS, ACUTE[ICD9: 461.9] Diagnosis: PHARYNGITIS, ACUTE[ICD9: 462] [facility]PT-[facility]: 15070 12/02/2010 OFFICE/OUTPATIENT VISIT EST Diagnosis: HYPERTENSION[ICD9: 401.9] Diagnosis: HYPERLIPIDEMIA NEC/NOS[ICD9: 272.4] Diagnosis: DERMATITIS NOS[ICD9: 692.9] Jessica Michaelcorby VO S. Lizz CARBAJAL [facility] CPT-4: 95703 11/12/2010 OFFICE/OUTPATIENT VISIT EST Jessica Michaelcorby VO DomingaLloyd MICHAEL NDEYovany [facility] CPT- 4: 14582 10/13/2010 ([id number]) OFFICE/OUTPATIENT VISIT EST Jessica Michaelcorby BELTRAN [facility]Lloyd [facility] CPT-[facility]: 09728 06/24/2010 ([id number]) OFFICE/OUTPATIENT VISIT EST [facility] CPT-4: 41873 06/08/2010 ([id number]) OFFICE/OUTPATIENT VISIT EST Xiomara [facility] CPT-4: 08915 05/20/2010 ([id number]) OFFICE/OUTPATIENT VISIT EST Jessica [facility] CPT-4: 91697 04/30/2010 ([id number]) OFFICE/OUTPATIENT VISIT, EST Jessica [facility] CPT-4: 86187 01/22/2010 Plan of Care Planned Activity Notes Codes Status Date Appointment: [phone] [facility] [facility] 07/12/2019 Visit Diagnosis Plan: Type 2 diabetes mellitus without complications Discussion: Increase Jardience to 25mg daily Acccuchecks daily Check CMP, HbA1C in 2mos then fwup ICD-9 : 250.00 ICD-10 : E11.9 05/09/2019 Appointment: [facility] [facility] FO[facility] 05/09/2019 Patient Education: Jardiance Patient Savings Message Alert Completed 05/09/2019 Visit Diagnosis Plan: Type 2 diabetes mellitus without complications Discussion: Lab discussed Add jardience 10mg po q AM Hold spironolactone Accuchecks daily alternating times Fwup 1 month with BS readings Notify if any signs of yeast infection ICD-9 : 250.00 ICD-10 : E11.9 04/03/2019 Appointment: [facility] [address] [facility] [facility] 04/03/2019 Visit Diagnosis Plan: Gastro-esophageal reflux disease without esophagitis Discussion: Continue current meds See surgery for EGD Discussed would need bridge with lovenox if have to hold coumadin for longer than a 2-3 days ICD-9 : 530.81 ICD-10 : K21.9 09/27/2018 Visit Diagnosis Plan: Ventral hernia without obstructi on or gangrene Discussion: Has had repaired before--discussed symptoms of heniation/strangulation ICD-9 : 553.20 ICD-10 : K43.9 09/27/2018 Visit Diagnosis Plan: Urinary tract infection, site no t specified Discussion: Bactrim DS 1 po BID for 1 week ICD-9 : 599.0 ICD-10 : N39.0 09/27/2018 Appointment: Jessica Gee WPtel: [address] [place] [address] ACUTE ILLNESS 09/27/2018 Visit Diagnosis Plan: Type 2 diabetes mellitus without complications Discussion: Check CMP, Lipids Accuchecks daily ICD-9 : 250.00 ICD-10 : E11.9 04/24/2018 Visit Diagnosis Plan: Primary insomnia Discussion: Tri al of amitriptylene 25mg po q HS ICD-9 : 780.52 ICD-10 : F51.01 04/24/2018 Visit Diagnosis Plan: Essential (primary) hypertension Discussion: Stable ICD-9 : 401.9 ICD-10 : I10 04/24/2018 Visit Diagnosis Plan: Carpal tunnel syndrome, right up per limb Discussion: Scheduled for surgery on May [address] Norris ICD-9 : 354.0 ICD-10 : G56.01 04/24/2018 Appointment: Jessica Gee WPtel: [address] [place] [address] ACUTE ILLNESS 04/24/2018 Patient Education: celecoxib- [employer] C[employer]on [id number] Completed 04/24/2018 Patient Education: amitriptyline- [employer] Coupon [id number] Completed 04/24/2018 Visit Diagnosis Plan: Essential (primary) hypertension Discussion: Stable ICD-9 : 401.9 ICD-10 : I10 12/27/2017 Visit Diagnosis Plan: Pain in unspecified joint Discus ximena: Increase celebrex to 200mg po BID Add Vitamin D3 5000u daily Increase activity Going to have carpal tunnel surgery to both hands--seeing ortho ICD-9 : 719.40 ICD-10 : M25.50 12/27/2017 Visit Diagnosis Plan: Type 2 diabetes mellitus without complications Discussion: Lab discussed Take both 500mg metformin at same time to ascertain compliance Accuchecks daily Getting fllu shot at work Follow Up: 3 months ICD-9 : 250.00 ICD-10 : E11.9 12/27/2017 Appointment: Jessica Gee WPtel: [facility] [address] FOLLOW UP 12/27/2017 Patient Education: Patient Medication Summary Completed 12/27/2017 Patient Education: Patient Medication Summary Completed 12/19/2017 Care Plan: MAMMOGRAM BOTH BREASTS LOINC : 88057-7 Pending 12/19/2017 Patient Education: Patient Medication Summary Completed 12/16/2017 Care Plan: ASSAY THYROID STIM HORMONE Pen ding 12/16/2017 Care Plan: ASSAY OF FREE THYROXINE Pendin g 12/16/2017 Care Plan: LIPID PANEL LOINC : 51513-1 Pending 12/16/2017 Care Plan: CBC Pending 12/16/2017 Care Plan: A1C HPLC LOINC : 59264-9 Pending 12/16/2017 Patient Education: Patient Medication Summary Completed 10/17/2017 Care Plan: CT ANGIOGRAPHY CHEST LOINC : 04668-9 Pending 10/17/2017 Patient Education: Patient Medication Summary Completed 10/14/2017 Care Plan: CT ANGIOGRAPHY CHEST LOINC : 83220-9 Pending 10/14/2017 Appointment: Jessica Gee WPtel: [facility] [address] 10/13/2017 Patient Education: Patient Medication Summary Completed 10/13/2017 Visit Diagnosis Plan: Pleurodynia Discussion: patient sent for stat cxray. medrol dose pack prescribed for symptom management. instructed to perform deep breathing exercises at home to prevent atelectasis or pneumonia. will notify pa tient of results of xray and order additional tests/medications as needed. ICD-9 : 786.50 ICD-10 : R07.81 10/12/2017 Appointment: Sofi Gresham [address] [place] [address] ACUTE ILLNESS 10/12/2017 Patient Education: Patient Medication Summary Completed 10/12/2017 Visit Diagnosis Plan: Acute bronchitis, unspecified Di scussion: medrol dose pack and zpack prescribed for symptoms. tessalon perles for cough as well. increase fluid intake. perform deep breathing exercises at home to prevent worsening infection. call next week if no improvement or worsening symptoms. ICD-9 : 466.0 ICD-10 : J20.9 09/16/2017 Appointment: Sofi Gresham [address] [place] [address] ACUTE ILLNESS 09/16/2017 Patient Education: Patient Medication Summary Completed 09/16/2017 Appointment: Jessica Gee WPtel: [address] [place] [address] US CANCELED 08/10/2017 Visit Diagnosis Plan: Other specified postprocedural s tates Discussion: Fwup with neurosurgery ICD-9 : V45.89 ICD-10 : Z98.890 05/25/2017 Visit Diagnosis Plan: Tachycardia, unspecified Discuss ion: Go home and take metoprolol--patient skipped dose yesterday Follow Up: 3 months ICD-9 : 785.0 ICD-10 : R00.0 05/25/2017 Visit Diagnosis Plan: Cellulitis of neck Discussion: C manuel abx and fwup with ID Just had PICC line pulled yesterday and started on Cipro ICD-9 : 682.1 ICD-10 : L03.221 05/25/2017 Appointment: Jessica Gee WPtel: [address] [place] [address] FOLLOW UP 05/25/2017 Patient Education: Patient Medication Summary Completed 05/25/2017 Visit Diagnosis Plan: Lumbago with sciatica, right britton e Discussion: Check arthritis panel Patient awaiting neck surgery before surgery will consider back surgery ICD-9 : 724.2 ICD-10 : M54.41 01/03/2017 Appointment: Jessica Gee WPtel: [address] [place] [address] ACUTE ILLNESS 01/03/2017 Patient Education: Patient Medication Summary Completed 01/03/2017 Patient Education: Patient Medication Summary Completed 12/16/2016 Care Plan: MAMMOGRAM SCREENING LOINC : 2 6347-5 Pending 12/16/2016 Patient Education: Patient Medication Summary Completed 10/07/2016 Care Plan: MRI LUMBAR SPINE W/O & W/DYE LOINC : 62900-4 Pending 10/07/2016 Visit Diagnosis Plan: Essential (primary) hypertension Discussion: Continue higher dose of metoprolol and monitor BP ICD-9 : 401.9 ICD-10 : I10 09/23/2016 Visit Diagnosis Plan: Low back pain Discussion: Discus sed specialist referral for back--patient will check with insurance on which specialists are covered ICD-9 : 724.2 ICD-10 : M54.5 09/23/2016 Visit Diagnosis Plan: Bitten or stung by nonvenomous insect and other nonvenomous arthropods, subsequent encounter Discussion: Finish doxycycline and observe ICD-9 : E906.4 ICD-10 : W57.XXXD 09/23/2016 Appointment: Jessica Gee WPtel: [address] [place] [address] 09/22 confirmed WORK IN 09/23/2016 Patient Education: Patient Medication Summary Completed 09/23/2016 Visit Plan: Tick panel at [facility] Increa se spironolactone to 2 po am (New Rx sent) Take B/P at home/work and also come to office next week for recheck Will await lab results before starting any antibiotic 09/03/2016 Appointment: Kaitlynn Mosley WPtel: [address] [place] [address] ACUTE ILLNESS 09/03/2016 Patient Education: Patient Medication Summary Completed 09/03/2016 Visit Diagnosis Plan: Low back pain Discussion: Celebr ex BID PT Continue stretches at home L/S xray Follow Up: 1 months ICD-9 : 724.2 ICD-10 : M54.5 07/08/2016 Appointment: Jessica Gee WPtel: [address] [place] [address] ACUTE ILLNESS 07/08/2016 Patient Education: Patient Medication Summary Completed 07/08/2016 Care Plan: X-RAY EXAM L-S SPINE 2/3 VWS LOINC : 25259-5 Pending 07/08/2016 Visit Plan: Supportive care. Rest, Fluid s, Tylenol/Motrin prn fever or bodyaches. Notify if worsening symptoms.New toothebrush in 5 days 06/21/2016 Visit NOS Plan: Plan Notes: Supportive care. Rest, Fluids... 06/21/2016 Visit Diagnosis Plan: Acute pharyngitis, unspecified D iscussion: Strep Negative Supportive Care May use zyrtec 10mg q HS ICD-9 : 462 ICD-10 : J02.9 06/21/2016 Appointment: Jessica Gee WPtel: [address] [place] [address] ACUTE ILLNESS 06/21/2016 Patient Education: Patient Medication Summary Completed 06/21/2016 Visit Plan: No pulseox last week to comp are to today, but she does sound diminished today Studies as above ordered Continue cefdinir until results received Increase albuterol treatments to q4-6hrs PRN Continue supportive care 02/23/2016 Appointment: Janiya Gregorio [address] [place] [address] ACUTE ILLNESS 02/23/2016 Patient Education: Patient Medication Summary Completed 02/23/2016 Care Plan: CHEST X-RAY 2VW FRONTAL&LATL LOINC : 71865-8 Pending 02/23/2016 Visit Plan: Saline nasal flushes prn. Ty lenol/Motrin prn headache. Notify if persists/symptoms worsening. 02/16/2016 Appointment: Jessica Gee WPtel: [address] [place] [address] ACUTE ILLNESS 02/16/2016 Patient Education: Patient Medication Summary Completed 02/16/2016 Visit Plan: Discussed labs Continue Topr ol at 200 mg PO daily Increase Aciphex to BID Notify if increase of Aciphex does not give relief. Repeat PT/INR in 2 weeks. 02/11/2015 Appointment: Suki Barahona WPtel: [address] [place] [address] 02/10 confirmed ~sl FOLLOW UP 02/11/2015 Patient Education: Patient Medication Summary Completed 02/11/2015 Patient Education: Patient Medication Summary Completed 02/06/2015 Care Plan: POC PROTIME/INR LOINC : 03596 -6 Pending 02/06/2015 Visit Plan: Increase Toprol XL 200 mg to one full tablet daily (is currently taking only 1/2 tablet) To for EKG today Monitor daily BP Notify of any changes- increased numbness, weakness, headache etc. 01/28/2015 Appointment: Suki Barahona WPtel: [address] [place] [address] ACUTE ILLNESS 01/28/2015 Patient Education: Patient Medication Summary Completed 01/28/2015 Visit Plan: ERx Amoxicillin and Flonase Nasal saline, humidified air Facial heat or cold packs for comfort Increase fluids/rest Discussed s/s of worsening, go to over weekend if these occur. 12/06/2014 Appointment: Kaitlynn Mosley WPtel: [address] [place] [address] ACUTE ILLNESS 12/06/2014 Patient Education: Patient Medication Summary Completed 12/06/2014 Appointment: Kaitlynn Mosley WPtel: [address] [place] [address] ACUTE ILLNESS 08/09/2014 Patient Education: Patient Medication Summary Completed 08/09/2014 Appointment: Suki Barahona WPtel: [address] [place] [address] ACUTE ILLNESS 06/24/2014 Patient Education: Patient Medication Summary Completed 06/24/2014 Appointment: Suki Barahona WPtel: [address] [place] [address] ACUTE ILLNESS 03/22/2014 Patient Education: Patient Medication Summary Completed 03/22/2014 Patient Education: [employer] - Antibi otics, Analgesics 18+, Oral Contraceptives F 18+ Completed 03/22/2014 Appointment: Suki Barahona WPtel: [address] [place] [address] FOLLOW UP 03/05/2014 Patient Education: Patient Medication Summary Completed 03/05/2014 Visit Plan: Saline nasal flushes prn. Ty lenol/Motrin prn headache. Notify if persists/symptoms worsening. Restart flonase 01/16/2014 Appointment: Jessica Gee WPtel: [address] [place], [place] [phone] ACUTE ILLNESS 01/16/2014 Patient Education: Patient Medication Summary Completed 01/16/2014 Appointment: Jessica Gee WPtel: [address] [place], [place] [id number] [facility] 10/19/2013 Patient Education: Patient Medication Summary Completed 10/19/2013 Appointment: Jessica Gee WPtel: [address] [place], [place] [address] 08/08 patient canceled appt and said will call back to [facility] FOLLOW UP 08/09/2013 Visit Plan: Increase Coumadin to 6mg M-F and stay on 5mg Sat, Sun Add lipids to labs Check PT/INR in 3wks Continue metfromin at current dose and accuchecks 05/10/2013 Appointment: Jessica Gee WPtel: [address] [place] [address] 05/09 FOLLOW UP 05/10/2013 Patient Education: Patient Medication Summary Completed 05/10/2013 Visit Plan: Saline nasal flushes prn. Ty lenol/Motrin prn headache. Notify if persists/symptoms worsening. 04/17/2013 Appointment: Jessica Gee WPtel: [address] [place], [place] [address] ACUTE ILLNESS 04/17/2013 Patient Education: Patient Medication Summary Completed 04/17/2013 Appointment: Suki Barahona WPtel: [address] [place], [place] [phone] FOLLOW UP 03/05/2013 Patient Education: Patient Medication Summary Completed 03/05/2013 Appointment: Suki Barahona WPtel: [address] [place], [place] [phone] FOLLOW UP 03/02/2013 Patient Education: Patient Medication Summary Completed 03/02/2013 Appointment: Suki Barahona WPtel: [address] [place], [place] [phone] ACUTE ILLNESS 03/01/2013 Patient Education: Patient Medication Summary Completed 03/01/2013 Visit Plan: Continue metformin and accuc hecks Add fish oil 1gram daily Check HbA1C, CMP in 2mos then fwup 02/22/2013 Appointment: Jessica Gee WPtel: [address] [place] [address] 02/21 work FOLLOW UP 02/22/2013 Patient Education: Patient Medication Summary Completed 02/22/2013 Visit Plan: Start Metformin Start Accuch ecks daily alternating times Will go for dilated eye exam once BS more stabilized Diabetic foot care discussed Diabetic diet info given 01/11/2013 Appointment: Jessica Gee WPtel: [address] [place] [address] FOLLOW UP 01/11/2013 Patient Education: Patient Medication Summary Completed 01/11/2013 Appointment: Kaitlynn Mosley WPtel: [address] [place] [address] ACUTE ILLNESS 11/03/2012 Patient Education: Patient Medication Summary Completed 11/03/2012 Appointment: Xiomara Rodriguez WPtel: [address] [place] [address] ACUTE ILLNESS 05/04/2012 Patient Education: Patient Medication Summary Completed 05/04/2012 Visit Plan: pt reports that she always g ets yeast infections. Discussed that the antifungal can cause problems/increased bleeding with Coumdin. Pt. will start with probiotics and only take the Diflucan if needed. Cefdinir. 10/11/2011 Appointment: Xiomara Rodriguez WPtel: [address] [place] [address] ACUTE ILLNESS 10/11/2011 Patient Education: Patient Medication Summary Completed 10/11/2011 Appointment: Xiomara Rodriguez WPtel: [address] [place] [address] FOLLOW UP 06/23/2011 Patient Education: Patient Medication Summary Completed 06/23/2011 Visit Plan: Will prescribe an antibiotic and diflucan. Pt. reports that she frequently gets yeast infection. Discussed that she will notify if any symptoms persist. Pt. reports that her relatives have recently been hospitalized with pneumonia. 06/14/2011 Appointment: Xiomara Rodriguez WPtel: [address] [place], [place] [id number] ACUTE ILLNESS 06/14/2011 Patient Education: Patient Medication Summary Completed 06/14/2011 Visit Plan: sample of veramyst. Cefuroxi me axetil. Pt. will focus on hydration and rest. Discussed comfort measures and monitoring for worsening symptoms. 12/02/2010 Appointment: Xiomara Rodriguez WPtel: [address] [place] [address] ACUTE ILLNESS 12/02/2010 Patient Education: Patient Medication Summary Completed 12/02/2010 Visit Plan: Change HCTZ to spironolacton e will start zocor in 1 mo BP med in 1mo 11/12/2010 Appointment: Jessica Gee WPtel: [address] [place], [place] [address] FOLLOW UP 11/12/2010 Patient Education: Patient Medication Summary Completed 11/12/2010 Appointment: Jessica Gee WPtel: [address] [place], [place] [address] BP CHECK 10/26/2010 Patient Education: Patient Medication Summary Completed 10/26/2010 Visit Plan: Continue Toprol at bedtime A dd HCTZ in AM BP check in 2wks Fasting lab with next PT/INR 10/13/2010 Appointment: Jessica Gee WPtel: [address] [place] [address] FOLLOW UP 10/13/2010 Patient Education: Patient Medication Summary Completed 10/13/2010 Visit Plan: Cont abx. Fwup with surgery as scheduled 06/24/2010 Appointment: Jessica Gee WPtel: [address] [place], [place] [id number] Hospital Follow Up 06/24/2010 Patient Education: Patient Medication Summary Completed 06/24/2010 Appointment: Jessica Gee WPtel: [address] [place] [address] Hospital Follow Up 06/22/2010 Visit Plan: pt is sent for abdominal ult rasound. Radiology suggests CT abdomen/pelvis. Order sent. Lab order: CBC, CMP and sed rate with Urinalysis. All tests normal with the exception of urinalysis. Ordered Septra DS BID for 10 days. Urine sent for C&S. Pt. is instructed to notify if symptoms change, worsen or do not begin to subside. 06/08/2010 Appointment: Xiomara Rodriguez WPtel: [address] [place] [address] ACUTE ILLNESS 06/08/2010 Patient Education: Patient Medication Summary Completed 06/08/2010 Appointment: Xiomara Rodriguez WPtel: [address] [place] [address] FOLLOW UP 06/01/2010 Appointment: Jessica Gee WPtel: [address] [place] [address] 05/29/2010 Patient Education: Patient Medication Summary Completed 05/29/2010 Appointment: Xiomara Rodriguez WPtel: [address] [place] [address] ACUTE ILLNESS 05/20/2010 Patient Education: Patient Medication Summary Completed 05/20/2010 Appointment: Jessica Gee WPtel: [address] [place] [address] BP CHECK 05/13/2010 Patient Education: Patient Medication Summary Completed 05/13/2010 Visit Plan: Increase Lisinopril hct to 2 0/12.5mg q AM Use atarax prn and routinely at bedtime and Medrol dose pack BP check in 3wks Pt defers stress test at this time 04/30/2010 Appointment: Jessica Gee WPtel: [address] [place] [address] ACUTE ILLNESS 04/30/2010 Patient Education: Patient Medication Summary Completed 04/30/2010 Appointment: Jessica Gee WPtel: [address] [place], [place] [phone] BP CHECK 02/27/2010 Patient Education: Patient Medication Summary Completed 02/27/2010 Visit Plan: Cont Toprol Add Altace 10mg QD Cont Wellbutrin Will likely add SSRI after BP stable BP check in 2wks 01/22/2010 Appointment: Jessica Gee WPtel: [address] [facility] ACUTE ILLNESS 01/22/2010 Patient Education: Patient Medication Summary Completed 01/22/2010 Referral: Rupa Raines WPtel: [address] [id number] [place] Referral Completed Referral: Neymar Alberts WPtel: [address] [facility] [place] Referral Initiated Instructions Comment . Tick panel at [facility] Increase spironolactone to 2 po am (New Rx sent) Take B/P at home/work and also come to office next week for recheck Will await lab results before starting any antibiotic . Supportive care. Rest, Fluids, Tyleno l/Motrin prn fever or bodyaches. Notify if worsening symptoms.New toothebrush in 5 days . No pulseox last week to compare to toema garg, but she does sound diminished today Studies as above ordered Continue cefdinir until results received Increase albuterol treatments to q4-6hrs PRN Continue supportive care . Saline nasal flushes prn. Tylenol/Motr in prn headache. Notify if persists/symptoms worsening. . Discussed labs Continue Toprol at 200 mg PO daily Increase Aciphex to BID Notify if increase of Aciphex does not give relief. Repeat PT/INR in 2 weeks. . Increase Toprol XL 200 mg to one full tablet daily (is currently taking only 1/2 tablet) To for EKG today Monitor daily BP Notify of any changes- increased numbness, weakness, headache etc. . ERx Amoxicillin and Flonase Nasal saline, humidified air Facial heat or cold packs for comfort Increase fluids/rest Discussed s/s of worsening, go to UC over weekend if these occur. . Saline nasal flushes prn. Tylenol/Motr in prn headache. Notify if persists/symptoms worsening. Restart flonase . Increase Coumadin to 6mg M-F and stay on 5mg Sat, Sun Add lipids to labs Check PT/INR in 3wks Continue metfromin at current dose and accuchecks . Saline nasal flushes prn. Tylenol/Motr in prn headache. Notify if persists/symptoms worsening. . Continue metformin and accuchecks Add fish oil 1gram daily Check HbA1C, CMP in 2mos then fwup . Start Metformin Start Accuchecks daily alternating times Will go for dilated eye exam once BS more stabilized Diabetic foot care discussed Diabetic diet info given . pt reports that she always gets yeast infections. Discussed that the antifungal can cause problems/increased bleeding with Coumdin. Pt. will start with probiotics and only take the Diflucan if needed. Cefdinir. . Will prescribe an antibiotic and diflu can. Pt. reports that she frequently gets yeast infection. Discussed that she will notify if any symptoms persist. Pt. reports that her relatives have recently been hospitalized with pneumonia. . sample of veramyst. Cefuroxime axetil. Pt. will focus on hydration and rest. Discussed comfort measures and monitoring for worsening symptoms. . Change HCTZ to spironolactone will start zocor in 1 mo BP med in 1mo . Continue Toprol at bedtime Add HCTZ in AM BP check in 2wks Fasting lab with next PT/INR . Cont abx. Fwup with surgery as scheduled . pt is sent for abdominal ultrasound. Radiology suggests CT abdomen/pelvis. Order sent. Lab order: CBC, CMP and sed rate with Urinalysis. All tests normal with the exception of urinalysis. Ordered Septra DS BID for 10 days. Urine sent for C&S. Pt. is instructed to notify if symptoms change, worsen or do not begin to subside. . Increase Lisinopril hct to 20/12.5mg q AM Use atarax prn and routinely at bedtime and Medrol dose pack BP check in 3wks Pt defers stress test at this time . Cont Toprol Add Altace 10mg QD Cont Wellbutrin Will likely add SSRI after BP stable BP check in 2wks Medical Equipment No Medical Equipment data Health Concerns Section Health Concerns data not found Goals Section Goals data not found Interventions Section Interventions data not found Health Status Evaluations/Outcomes Section Health Status Evaluations/Outcomes data not found Advance Directives No Advance Directive data
--- OUTSIDE RECORDS SUMMARY | 2019-09-10 02:58 | XMS REPORT | CCD ---
Author Author Nava Gee D.O. Organization [facility] Address [address] [place] [address] Phone Care Team Providers Care Drafter Tool Design Name Role Phone Jessica Gee D.O., PP Unavailable CCM Unavailable Summary Purpose Interface Exchange Insurance Providers Payer name Policy type / Coverage type Covered constitution party ID Effective Begin Date Effective End Date Blue Cross Blue Shield Blue Cross/Blue Shield [id number] Unknown Family History Family History data not found Social History Social History Element Codes Description Effective Dates Tobacco history SNOMED CT: 232861281 Never smoker 10/13/2010 Allergies, Adverse Reactions, Alerts [...] findings ICD-9: V70.0 ICD-10: Z00.00 12/16/2017 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 ICD-9: V58.6 1 [...] Start Date Stop Date Status Fill Instructions metformin ER 500 mg tablet,extended release 24 hr RxNorm: 86 0975 1 Tablet(s) Oral two times a day Needs updated fasting labs 08/27/2019 09/26/2019 Active Needs updated fasting labs celecoxib 200 mg capsule RxNorm: 156074 TAKE 1 CAPSULE BY MOUTH TWICE DAILY 08/16/2019 11/13/2019 Active metformin ER 500 mg tablet,extended release 24 hr RxNorm: 86 0975 TAKE 1 TABLET BY MOUTH TWICE DAILY 07/30/2019 08/26/2019 Inactive warfarin 1 mg tablet RxNorm: 829948 1 Tablet(s) Oral QD along w ith warfarin 5mg 07/16/2019 No Stop Date Active pravastatin 40 mg tablet RxNorm: 251951 TAKE 1 TABLET BY MOUTH ONCE DAILY 07/10/2019 10/07/2019 Active Toprol XL 200 mg tablet,extended release RxNorm: 496838 1 Table t(s) Oral QD 06/15/2019 12/11/2019 Active Toprol XL 200 mg tablet,extended release RxNorm: 300098 1 Table t(s) Oral QD 06/13/2019 06/14/2019 Inactive warfarin 6 mg tablet RxNorm: 148293 1 Tablet(s) Oral QD 06/04/2019 No Stop Date Active metformin ER 500 mg tablet,extended release 24 hr RxNorm: 86 0975 TAKE 1 TABLET BY MOUTH TWICE DAILY 05/29/2019 07/27/2019 Inactive Jardiance 25 mg tablet RxNorm: 0623549 1 Tablet(s) Oral QD 05/09/19 20 05/23/2019 Inactive Jardiance 25 mg tablet RxNorm: 6500555 1 Tablet(s) Oral QAM 020 09/06/2019 Active Jardiance 10 mg tablet RxNorm: 1862891 1 Tablet(s) Oral QD 05/09/19 No Stop Date Active warfarin 6 mg tablet RxNorm: 273284 1 Tablet(s) Oral QD then on Tue/ take along with Warfarin 1mg (7mg) 05/09/2019 06/03/2019 Inactive warfarin 1 mg tablet RxNorm: 257890 1 Tablet(s) Oral on Tue and with 6mg tablet (total 7mg) 05/09/2019 07/15/2019 Inactive warfarin 5 mg tablet RxNorm: 547191 1 Tablet(s) Oral QD 05/02/2019 Inactive warfarin 1 mg tablet RxNorm: 801003 TAKE 1 TABLET BY [facility] ONCE DAILY. TAKE AN ADDITIONAL TABLET ON TUESDAY AND Tuesday05/02/2019 05/08/2019 Inactiv e Coumadin 5 mg tablet RxNorm: 175149 TAKE 1 TABLET BY MOUTH ONCE DAILY 04/02/2019 05/02/2019 Inactive celecoxib 200 mg capsule RxNorm: 647424 TAKE 1 CAPSULE BY MOUTH TWICE DAILY 03/20/2019 06/17/2019 Inactive metformin ER 500 mg tablet,extended release 24 hr RxNorm: 86 0975 TAKE 1 TABLET BY MOUTH TWICE DAILY 03/19/2019 05/17/2019 Inactive pravastatin 40 mg tablet RxNorm: 196752 TAKE 1 TABLET BY MOUTH ONCE DAILY 03/19/2019 06/16/2019 Inactive Coumadin 5 mg tablet RxNorm: 151513 TAKE 1 TABLET BY MOUTH ONCE DAILY 02/28/2019 04/01/2019 Inactive warfarin 1 mg tablet RxNorm: 485698 TAKE 1 TABLET BY [facility] ONCE DAILY. TAKE AN ADDITIONAL TABLET ON TUESDAY AND Tuesday02/28/2019 05/01/2019 Inactiv e omeprazole 40 mg capsule,delayed release RxNorm: 961989 TAKE 1 CAPSULE BY MOUTH TWICE DAILY 02/19/2019 No Stop Date Active metformin ER 500 mg tablet,extended release 24 hr RxNorm: 86 0975 1 Tablet(s) PO BID 02/19/2019 03/18/2019 Inactive metformin ER 500 mg tablet,extended release 24 hr RxNorm: 86 0975 1 Tablet(s) PO BID 01/15/2019 02/13/2019 Inactive alprazolam 0.25 mg tablet RxNorm: 296632 1 Tablet(s) Oral prior to flight 01/03/2019 No Stop Date Active omeprazole 40 mg capsule,delayed release RxNorm: 702636 TAKE 1 CAPSULE BY MOUTH TWICE DAILY 12/20/2018 02/18/2019 Inactive metformin ER 500 mg tablet,extended release 24 hr RxNorm: 86 0975 1 Tablet(s) PO BID 12/11/2018 01/09/2019 Inactive pravastatin 40 mg tablet RxNorm: 102544 TAKE 1 TABLET BY MOUTH ONCE DAILY 12/11/2018 03/18/2019 Inactive Coumadin 5 mg tablet RxNorm: 634861 1 Tablet(s) PO QD 11/27/201809/2018 Inactive metformin ER 500 mg tablet,extended release 24 hr RxNorm: 86 0975 1 Tablet(s) PO BID 10/02/2018 11/30/2018 Inactive warfarin 1 mg tablet RxNorm: 689459 TAKE 1 TABLET BY [facility] ONCE DAILY. TAKE AN ADDITIONAL TABLET ON TUESDAY AND Tuesday10/02/2018 02/27/2019 Inactiv e Bactrim DS 800 mg-160 mg tablet RxNorm: 562365 1 Tablet(s) PO BID 0 09/27/2018 10/03/2018 Inactive warfarin 5 mg tablet RxNorm: 299324 1 Tablet(s) PO QD 09/27/201810/2018 Inactive Toprol XL 200 mg tablet,extended release RxNorm: 635242 1 Table t(s) PO QD 09/18/2018 06/12/2019 Inactive omeprazole 40 mg capsule,delayed release RxNorm: 188661 TAKE 1 CAPSULE BY MOUTH TWICE DAILY 09/11/2018 12/19/2018 Inactive Coumadin 5 mg tablet RxNorm: 932253 1 Tablet(s) PO QD 08/21/201811/2018 Inactive metformin ER 500 mg tablet,extended release 24 hr RxNorm: 86 0975 1 Tablet(s) PO BID 07/31/2018 09/28/2018 Inactive omeprazole 40 mg capsule,delayed release RxNorm: 233965 TAKE 1 CAPSULE BY MOUTH TWICE DAILY 06/27/2018 09/10/2018 Inactive metformin ER 500 mg tablet,extended release 24 hr RxNorm: 86 0975 Tablet(s) 1 Tablet(s) PO BID 06/27/2018 07/31/2018 Inactive Toprol XL 200 mg tablet,extended release RxNorm: 509629 1 Table t(s) PO QD 06/14/2018 09/17/2018 Inactive Coumadin 5 mg tablet RxNorm: 655999 1 Tablet(s) PO QD 06/14/201804/2018 Inactive metformin ER 500 mg tablet,extended release 24 hr RxNorm: 86 0975 Tablet(s) 1 Tablet(s) PO BID 05/22/2018 06/26/2018 Inactive Coumadin 5 mg tablet RxNorm: 085797 TAKE 1 TABLET BY MOUTH ONCE DAILY 05/11/2018 06/14/2018 Inactive Lovenox 40 mg/0.4 mL subcutaneous syringe RxNorm: 078039 40 Mil ligram(s) SQ QD 05/05/2018 09/26/2018 Inactive amitriptyline 25 mg tablet RxNorm: 071623 1 Tablet(s) PO QHS fo r sleep/HAs 04/24/2018 10/20/2018 Inactive WiN MSTouch Ultra Test strips RxNorm: Test blood sugar sigrid y (Dx:E11.65) 04/24/2018 No Stop Date Active celecoxib 200 mg capsule RxNorm: 202370 1 Capsule(s) PO BID 019 10/20/2018 Inactive Celebrex 200 mg capsule RxNorm: 127945 TAKE 1 CAPSULE BY MOUTH ONCE DAILY 04/19/2018 04/23/2018 Inactive warfarin 1 mg tablet RxNorm: 581680 1 Tablet(s) PO QD a nd additional tablet on Mon & Thurs 04/14/2018 10/01/2018 Inactive Toprol XL 200 mg tablet,extended release RxNorm: 073658 TAKE 1 TABLET BY MOUTH ONCE DAILY 04/11/2018 06/14/2018 Inactive metformin ER 500 mg tablet,extended release 24 hr RxNorm: 86 0975 Tablet(s) 1 Tablet(s) PO BID 03/17/2018 05/21/2018 Inactive Coumadin 5 mg tablet RxNorm: 164450 TAKE 1 TABLET BY MOUTH ONCE DAILY 03/15/2018 05/10/2018 Inactive Lovenox 40 mg/0.4 mL subcutaneous syringe RxNorm: 176425 40 Mil ligram(s) SQ QD 01/27/2018 04/11/2018 Inactive omeprazole 40 mg capsule,delayed release RxNorm: 101931 TAKE 1 CAPSULE BY MOUTH TWICE DAILY 01/23/2018 06/26/2018 Inactive pravastatin 40 mg tablet RxNorm: 166532 TAKE 1 TABLET BY MOUTH ONCE DAILY 01/23/2018 12/10/2018 Inactive metformin ER 500 mg tablet,extended release 24 hr RxNorm: 86 0975 Tablet(s) 1 Tablet(s) PO BID 01/16/2018 01/15/2018 Inactive Toprol XL 200 mg tablet,extended release RxNorm: 057737 TAKE 1 TABLET BY MOUTH ONCE DAILY 01/16/2018 04/10/2018 Inactive Coumadin 5 mg tablet RxNorm: 322976 TAKE 1 TABLET BY MOUTH ONCE DAILY 01/06/2018 03/14/2018 Inactive Celebrex 200 mg capsule RxNorm: 789473 1 Capsule(s) PO BID 12/28/1903/26/2018 Inactive metformin ER 500 mg tablet,extended release 24 hr RxNorm: 86 0975 1 Tablet(s) PO BID Needs APPT 12/21/2017 01/16/2018 Inactive omeprazole 40 mg capsule,delayed release RxNorm: 016320 TAKE 1 CAPSULE BY MOUTH TWICE DAILY 11/02/2017 01/22/2018 Inactive Celebrex 200 mg capsule RxNorm: 692434 1 Capsule(s) PO QD 11/01/2017 12/26/2017 Inactive Coumadin 5 mg tablet RxNorm: 717257 Tablet(s) TAKE ONE TABLET BY MOUTH ONCE DAILY. 10/31/2017 12/29/2017 Inactive warfarin 1 mg tablet RxNorm: 598302 1 Tablet(s) PO QD 10/31/201703/22 Inactive spironolactone 25 mg tablet RxNorm: 464677 TAKE TWO TAB LETS BY MOUTH IN THE MORNING 10/31/2017 04/23/2018 Inactive metformin ER 500 mg tablet,extended release 24 hr RxNorm: 86 0975 1 Tablet(s) PO BID Needs updated fasting lab 10/20/2017 12/21/2017 Inactive Medrol (Dale) 4 mg tablets in a dose pack RxNorm: 756507 Tablet(s) PO take as directed 10/12/2017 12/15/2017 Inactive Celebrex 200 mg capsule RxNorm: 294275 1 Capsule(s) PO QD 10/03/2017 10/02/2017 Inactive spironolactone 25 mg tablet RxNorm: 046745 TAKE TWO TAB LETS BY MOUTH IN THE MORNING 09/19/2017 10/30/2017 Inactive Zithromax Z-Dale 250 mg tablet RxNorm: 808491 Tablet(s) PO take as directed 09/16/2017 10/11/2017 Inactive Medrol (Dale) 4 mg tablets in a dose pack RxNorm: 735524 Tablet(s) take as directed PO 09/16/2017 10/11/2017 Inactive doxycycline hyclate 100 mg tablet RxNorm: 4620288 1 Tablet(s) PO BI D 09/16/2017 09/15/2017 Inactive doxycycline hyclate 100 mg tablet RxNorm: 3404238 1 Tablet(s) PO BI D 09/16/2017 09/25/2017 Inactive Tessalon Perles 100 mg capsule RxNorm: 778861 1 Capsule(s) PO T ID as needed 09/16/2017 12/15/2017 Inactive warfarin 1 mg tablet RxNorm: 686178 1 Tablet(s) PO QD 09/06/201710/19 Inactive Coumadin 5 mg tablet RxNorm: 695623 Tablet(s) TAKE ONE TABLET BY MOUTH ONCE DAILY. 09/06/2017 10/31/2017 Inactive Toprol XL 200 mg tablet,extended release RxNorm: 863718 1 Table t(s) PO QD 2017 01/02/2018 Inactive warfarin 1 mg tablet RxNorm: 876579 1 Tablet(s) PO QD DUE FOR L ABS AUGUST 12 08/29/2017 09/06/2017 Inactive Coumadin 5 mg tablet RxNorm: 355615 Tablet(s) TAKE ONE TABLET BY MOUTH ONCE DAILY. DUE FOR PT/INR AUGUST 12 08/29/2017 09/06/2017 Inactive Coumadin 5 mg tablet RxNorm: 337376 Tablet(s) TAKE ONE TABLET BY MOUTH ONCE DAILY. DUE FOR PT/INR AUGUST 12 08/01/2017 08/29/2017 Inactive warfarin 1 mg tablet RxNorm: 969118 1 Tablet(s) PO QD DUE FOR L ABS AUGUST 12 08/01/2017 08/29/2017 Inactive scopolamine 1 mg over 3 days transdermal patch RxNorm: 06607 2 1 TD take off in 72 hours. 08/01/2017 12/26/2017 Inactive pravastatin 40 mg tablet RxNorm: 385623 Tablet(s) TAKE ONE TABLET BY MOUTH ONCE DAILY 07/07/2017 01/02/2018 Inactive Coumadin 5 mg tablet RxNorm: 972995 Tablet(s) TAKE ONE TABLET BY MOUTH ONCE DAILY. DUE FOR PT/INR. 06/29/2017 08/01/2017 Inactive warfarin 1 mg tablet RxNorm: 175198 1 Tablet(s) PO QD 06/29/201707/19 Inactive Coumadin 5 mg tablet RxNorm: 603722 TAKE ONE TABLET BY MOUTH ONCE DAILY. DUE FOR PT/INR. 05/30/2017 06/29/2017 Inactive omeprazole 40 mg capsule,delayed release RxNorm: 150908 1 Capsu le(s) PO BID 05/30/2017 08/27/2017 Inactive Celebrex 200 mg capsule RxNorm: 922068 1 Capsule(s) PO QD 05/23/2017 10/03/2017 Inactive metformin ER 500 mg tablet,extended release 24 hr RxNorm: 86 0975 TAKE ONE TABLET BY MOUTH TWICE DAILY 05/20/2017 10/20/2017 Inactive Coumadin 5 mg tablet RxNorm: 825328 1 Tablet(s) PO QD due for PT/IN R 04/25/2017 05/24/2017 Inactive warfarin 1 mg tablet RxNorm: 327654 1 Tablet(s) PO QD due for l abs this week 03/16/2017 06/29/2017 Inactive omeprazole 40 mg capsule,delayed release RxNorm: 085141 1 Capsu le(s) PO BID 03/16/2017 05/30/2017 Inactive Celebrex 200 mg capsule RxNorm: 727907 1 Capsule(s) PO BID as n eeded for pain 03/16/2017 05/22/2017 Inactive Coumadin 5 mg tablet RxNorm: 941279 1 Tablet(s) PO QD due for PT/IN R 03/16/2017 04/14/2017 Inactive Celebrex 200 mg capsule RxNorm: 174563 1 Capsule(s) PO BID as n eeded for pain 02/09/2017 03/15/2017 Inactive Toprol XL 200 mg tablet,extended release RxNorm: 350360 1 Table t(s) PO QD 02/08/2017 2017 Inactive Celebrex 200 mg capsule RxNorm: 285748 1 Capsule(s) PO BID as n eeded for pain 01/14/2017 02/08/2017 Inactive omeprazole 40 mg capsule,delayed release RxNorm: 649410 1 Capsu le(s) PO BID 01/12/2017 03/16/2017 Inactive Coumadin 5 mg tablet RxNorm: 173315 1 Tablet(s) PO QD 12/15/201602/19 Inactive warfarin 1 mg tablet RxNorm: 796618 1 Tablet(s) PO QD 12/15/201602/19 Inactive metformin ER 500 mg tablet,extended release 24 hr RxNorm: 86 0975 Tablet(s) TAKE ONE TABLET BY MOUTH TWICE DAILY 11/29/2016 02/26/2017 Inactive omeprazole 40 mg capsule,delayed release RxNorm: 934153 1 Capsu le(s) PO BID 11/29/2016 12/28/2016 Inactive pravastatin 40 mg tablet RxNorm: 517629 Tablet(s) TAKE ONE TABLET BY MOUTH ONCE DAILY 11/19/2016 07/07/2017 Inactive omeprazole 40 mg capsule,delayed release RxNorm: 793183 1 Capsu le(s) PO BID 10/19/2016 10/18/2016 Inactive omeprazole 40 mg capsule,delayed release RxNorm: 779520 1 Capsu le(s) PO BID 10/19/2016 11/17/2016 Inactive pantoprazole 40 mg tablet,delayed release RxNorm: 888895 1 Tabl et(s) PO QD 09/30/2016 10/18/2016 Inactive pantoprazole 40 mg tablet,delayed release RxNorm: 644251 1 Tabl et(s) PO QD 09/30/2016 09/29/2016 Inactive Zofran ODT 4 mg disintegrating tablet RxNorm: 862549 1 Tablet(s) PO Q4H as needed for nausea 09/15/2016 01/02/2017 Inactive Coumadin 5 mg tablet RxNorm: 148402 1 Tablet(s) PO QD 09/14/201611/20 Inactive warfarin 1 mg tablet RxNorm: 131768 1 Tablet(s) PO QD 09/14/201611/20 Inactive spironolactone 25 mg tablet RxNorm: 337346 2 Tablet(s) PO QAM 09/0301/02/2017 Inactive Wellbutrin XL 300 mg 24 hr tablet, extended release RxNorm: 204696 TAKE ONE TABLET BY MOUTH ONCE DAILY 08/26/2016 12/26/2017 Inactive Toprol XL 200 mg tablet,extended release RxNorm: 440635 1 Table t(s) PO QD 07/28/2016 02/08/2017 Inactive metformin ER 500 mg tablet,extended release 24 hr RxNorm: 86 0975 Tablet(s) TAKE ONE TABLET BY MOUTH TWICE DAILY 07/15/2016 11/29/2016 Inactive cyclobenzaprine 5 mg tablet RxNorm: 996458 1 Tablet(s) PO QHS f or spasm 07/08/2016 08/06/2016 Inactive Celebrex 200 mg capsule RxNorm: 1 Capsule(s) PO BID 07/08/2016 Inactive spironolactone 25 mg tablet RxNorm: 099806 1 Tablet(s) PO QAM 07/0609/02/2016 Inactive Wellbutrin XL 300 mg 24 hr tablet, extended release RxNorm: 904115 TAKE ONE TABLET BY MOUTH ONCE DAILY 06/15/2016 07/14/2016 Inactive Coumadin 5 mg tablet RxNorm: 546152 1 Tablet(s) PO QD 06/08/201608/20 Inactive warfarin 1 mg tablet RxNorm: 862290 1 Tablet(s) PO QD 06/08/201608/20 Inactive Toprol XL 200 mg tablet,extended release RxNorm: 112837 TAKE ONE TABLET BY MOUTH ONCE DAILY 04/26/2016 07/28/2016 Inactive pravastatin 40 mg tablet RxNorm: 918685 TAKE ONE TABLET BY MOUT H ONCE DAILY 04/19/2016 10/15/2016 Inactive Coumadin 5 mg tablet RxNorm: 177303 1 Tablet(s) PO QD 03/09/201605/19 Inactive warfarin 1 mg tablet RxNorm: 342414 1 Tablet(s) PO QD 03/09/201605/19 Inactive metformin ER 500 mg tablet,extended release 24 hr RxNorm: 86 0975 TAKE ONE TABLET BY MOUTH TWICE DAILY 02/25/2016 07/15/2016 Inactive spironolactone 25 mg tablet RxNorm: 692785 TAKE ONE TAB LET BY MOUTH ONCE DAILY IN THE MORNING 02/25/2016 07/06/2016 Inactive prednisone 20 mg tablet RxNorm: 662718 1 Tablet(s) PO QAM 02/16/2016 02/20/2016 Inactive cefdinir 300 mg capsule RxNorm: 634991 2 Capsule(s) PO QD 02/16/2016 02/25/2016 Inactive Toprol XL 200 mg tablet,extended release RxNorm: 212970 TAKE ONE TABLET BY MOUTH ONCE DAILY 01/26/2016 04/24/2016 Inactive Aciphex 20 mg tablet,delayed release RxNorm: 653004 1 Tablet(s) PO BID 12/24/2015 09/29/2016 Inactive Omeprazole and Pepci d have not helped. Coumadin 5 mg tablet RxNorm: 243343 1 Tablet(s) PO QD 12/10/201502/19 Inactive Coumadin 5 mg tablet RxNorm: 959970 1 Tablet(s) PO QD 12/08/201511/20 Inactive Toprol XL 200 mg tablet,extended release RxNorm: 663108 TAKE ONE TABLET BY MOUTH ONCE DAILY 11/20/2015 01/18/2016 Inactive warfarin 1 mg tablet RxNorm: 972603 1 Tablet(s) PO QD 11/03/201502/19 Inactive pravastatin 40 mg tablet RxNorm: 862939 Tablet(s) TAKE ONE TABLET BY MOUTH ONCE DAILY 10/20/2015 01/17/2016 Inactive pravastatin 40 mg tablet RxNorm: 838570 TAKE ONE TABLET BY MOUT H ONCE DAILY 10/20/2015 10/19/2015 Inactive metformin ER 500 mg tablet,extended release 24 hr RxNorm: 86 0975 TAKE ONE TABLET BY MOUTH TWICE DAILY 10/03/2015 12/31/2015 Inactive Toprol XL 200 mg tablet,extended release RxNorm: 983061 TAKE ONE TABLET BY MOUTH ONCE DAILY 09/17/2015 11/15/2015 Inactive Coumadin 5 mg tablet RxNorm: 095816 1 Tablet(s) PO QD 09/02/201511/19 Inactive Wellbutrin XL 300 mg 24 hr tablet, extended release RxNorm: 450827 TAKE ONE TABLET BY MOUTH ONCE DAILY 08/01/2015 10/29/2015 Inactive Pepcid 20 mg tablet RxNorm: 954424 1 Tablet(s) PO BID as needed 05/24/2017 Inactive warfarin 1 mg tablet RxNorm: 020679 TAKE ONE TABLET BY MOUTH ON CE DAILY 07/08/2015 11/03/2015 Inactive pravastatin 40 mg tablet RxNorm: 515044 1 Tablet(s) PO QD 07/08/2015 10/05/2015 Inactive spironolactone 25 mg tablet RxNorm: 425630 TAKE ONE TAB LET BY MOUTH ONCE DAILY IN THE MORNING 06/13/2015 09/10/2015 Inactive Coumadin 5 mg tablet RxNorm: 291475 1 Tablet(s) PO QD 06/05/201508/19 Inactive Wellbutrin XL 300 mg 24 hr tablet, extended release RxNorm: 294955 TAKE ONE TABLET BY MOUTH ONCE DAILY 05/16/2015 09/26/2018 Inactive Wellbutrin XL 300 mg 24 hr tablet, extended release RxNorm: 473176 TAKE ONE TABLET BY MOUTH ONCE DAILY 05/16/2015 06/14/2015 Inactive metformin ER 500 mg tablet,extended release 24 hr RxNorm: 86 0975 TAKE ONE TABLET BY MOUTH TWICE DAILY 05/16/2015 08/13/2015 Inactive pravastatin 40 mg tablet RxNorm: 344244 1 Tablet(s) PO QD 04/10/2015 07/07/2015 Inactive Aciphex 20 mg tablet,delayed release RxNorm: 931114 1 Tablet(s) PO BID 03/07/2015 09/02/2015 Inactive Omeprazole and Pepci d have not helped. Toprol XL 200 mg tablet,extended release RxNorm: 754008 1 Table t(s) PO QD 03/05/2015 08/31/2015 Inactive Aciphex 20 mg tablet,delayed release RxNorm: 277035 1 Tablet(s) PO QD 03/04/2015 03/06/2015 Inactive Omeprazole and Pepci d have not helped. Coumadin 5 mg tablet RxNorm: 011946 1 Tablet(s) PO QD 02/28/201511/2015 Inactive Aciphex 20 mg tablet,delayed release RxNorm: 185125 1 Tablet(s) PO BID 02/11/2015 03/03/2015 Inactive Omeprazole and Pepci d have not helped. metformin ER 500 mg tablet,extended release 24 hr RxNorm: 86 0975 1 Tablet(s) PO BID 01/10/2015 04/09/2015 Inactive pravastatin 40 mg tablet RxNorm: 861267 1 Tablet(s) PO QD 01/06/2015 04/05/2015 Inactive Wellbutrin XL 300 mg 24 hr tablet, extended release RxNorm: 088299 TAKE ONE TABLET BY MOUTH ONCE DAILY 12/19/2014 02/16/2015 Inactive amoxicillin 500 mg capsule RxNorm: 388622 2 Capsule(s) PO BID 12/0612/15/2014 Inactive Flonase 50 mcg/actuation nasal spray,suspension RxNorm: 8963 23 2 [place] each nostril NASAL QD 12/06/2014 03/05/2015 Inactive Coumadin 5 mg tablet RxNorm: 119090 1 Tablet(s) PO QD 11/28/201410/2014 Inactive spironolactone 25 mg tablet RxNorm: 882410 1 Tablet(s) PO QAM 11/2602/23/2015 Inactive Coumadin 5 mg tablet RxNorm: 475404 1 Tablet(s) PO QD 1 Tablet(s) PO QD- NEED TO CHECK LABS 10/30/2014 11/28/2014 Inactive warfarin 1 mg tablet RxNorm: 331401 1 Tablet(s) PO QD 10/30/201409/2015 Inactive Aciphex 20 mg tablet,delayed release RxNorm: 973036 1 Tablet(s) PO QD 10/02/2014 02/10/2015 Inactive Omeprazole and Pepci d have not helped. Coumadin 5 mg tablet RxNorm: 407742 1 Tablet(s) PO QD 1 Tablet(s) PO QD- NEED TO CHECK LABS 09/30/2014 10/30/2014 Inactive pravastatin 40 mg tablet RxNorm: 343350 1 Tablet(s) PO QD 09/25/2014 01/06/2015 Inactive warfarin 1 mg tablet RxNorm: 831256 1 Tablet(s) PO QD T [place] ONE TABLET BY MOUTH DIRECTED ON MON AND THUR 08/28/2014 10/29/2014 Inactive metformin ER 500 mg tablet,extended release 24 hr RxNorm: 86 0975 1 Tablet(s) PO BID 08/28/2014 01/10/2015 Inactive amoxicillin 875 mg tablet RxNorm: 925225 1 Tablet(s) PO BID 05/2208/18/2014 Inactive Toprol XL 200 mg tablet,extended release RxNorm: 691035 TAKE ONE TABLET BY MOUTH ONCE DAILY 07/22/2014 03/05/2015 Inactive Coumadin 5 mg tablet RxNorm: 536728 1 Tablet(s) PO QD 07/01/201409/18 Inactive amoxicillin 875 mg tablet RxNorm: 005000 1 Tablet(s) PO BID 015 06/30/2014 Inactive pravastatin 40 mg tablet RxNorm: 563972 1 Tablet(s) PO QD needs fasting labs 06/19/2014 09/25/2014 Inactive Coumadin 5 mg tablet RxNorm: 707459 1 Tablet(s) PO QD 1 Tablet(s) PO QD TAKE ONE TABLET BY MOUTH ONCE DAILY-need labs 05/28/2014 07/01/2014 Inactive warfarin 1 mg tablet RxNorm: 263966 1 Tablet(s) PO As Directed 05/1908/28/2014 Inactive pravastatin 40 mg tablet RxNorm: 441588 1 Tablet(s) PO QD needs fasting labs 05/14/2014 06/19/2014 Inactive metformin ER 500 mg tablet,extended release 24 hr RxNorm: 86 0975 1 Tablet(s) PO BID 04/25/2014 08/28/2014 Inactive spironolactone 25 mg tablet RxNorm: 644505 1 Tablet(s) PO QAM 04/2511/26/2014 Inactive Coumadin 5 mg tablet RxNorm: 135613 1 Tablet(s) PO QD 1 Tablet(s) PO QD TAKE ONE TABLET BY MOUTH ONCE DAILY 04/23/2014 05/28/2014 Inactive Coumadin 5 mg tablet RxNorm: 249593 1 Tablet(s) PO QD 1 Tablet(s) PO QD TAKE ONE TABLET BY MOUTH ONCE DAILY 03/22/2014 04/20/2014 Inactive Tessalon Perles 100 mg capsule RxNorm: 351244 1 Capsule(s) PO TID 0 03/22/2014 03/28/2014 Inactive cefdinir 300 mg capsule RxNorm: 770910 2 Capsule(s) PO QD 03/22/2014 03/31/2014 Inactive Medrol (Dale) 4 mg tablets in a dose pack RxNorm: 070893 Tablet(s) PO as directed 03/05/2014 08/08/2014 Inactive Coumadin 5 mg tablet RxNorm: 871532 1 Tablet(s) PO QD 1 Tablet(s) PO QD TAKE ONE TABLET BY MOUTH ONCE DAILY 02/19/2014 03/20/2014 Inactive pravastatin 40 mg tablet RxNorm: 028806 1 Tablet(s) PO QD 02/04/2014 05/14/2014 Inactive Coumadin 5 mg tablet RxNorm: 905423 1 Tablet(s) PO QD T [place] ONE TABLET BY MOUTH ONCE DAILY 01/21/2014 02/19/2014 Inactive Medrol (Dale) 4 mg tablets in a dose pack RxNorm: 026768 Tablet(s) PO as directed 01/18/2014 03/04/2014 Inactive cefdinir 300 mg capsule RxNorm: 203937 2 Capsule(s) PO QD 01/16/2014 01/25/2014 Inactive metformin ER 500 mg tablet,extended release 24 hr RxNorm: 86 0975 1 Tablet(s) PO BID 12/17/2013 04/25/2014 Inactive Wellbutrin SR 150 mg tablet,sustained-release RxNorm: 227349 1 Tablet(s) PO BID 11/30/2013 02/27/2014 Inactive spironolactone 25 mg tablet RxNorm: 609184 1 Tablet(s) PO QAM 10/2204/25/2014 Inactive Macrobid 100 mg capsule RxNorm: 200454 1 Capsule(s) PO BID 10/20/19 14 10/25/2013 Inactive Macrobid 100 mg capsule RxNorm: 187266 1 Capsule(s) PO BID 10/20/19 14 10/18/2013 Inactive Toprol XL 100 mg tablet,extended release RxNorm: 789528 1 Table t(s) PO QD 10/15/2013 01/15/2014 Inactive Toprol XL 200 mg tablet,extended release RxNorm: 113748 1 Table t(s) PO QD 10/02/2013 07/22/2014 Inactive Wellbutrin XL 300 mg 24 hr tablet, extended release RxNorm: 004918 1 Tablet(s) PO QD 09/28/2013 12/19/2014 Inactive Aciphex 20 mg tablet,delayed release RxNorm: 895459 1 Tablet(s) PO QD 08/29/2013 10/02/2014 Inactive Omeprazole and Pepci d have not helped. Coumadin 5 mg tablet RxNorm: 067526 1 Tablet(s) PO QD 08/14/201307/20 Inactive Coumadin 5 mg tablet RxNorm: 286504 1 Tablet(s) PO QD 08/14/201305/2013 Inactive pravastatin 40 mg tablet RxNorm: 398314 1 Tablet(s) PO QD 07/24/2013 02/04/2014 Inactive warfarin 1 mg tablet RxNorm: 694665 1 Tablet(s) PO QD T [place] ONE TABLET BY MOUTH DIRECTED ON MON AND THUR 07/09/2013 05/28/2014 Inactive warfarin 5 mg tablet RxNorm: 445421 1 Tablet(s) PO QD T [place] ONE TABLET BY MOUTH EVERY DAY 06/08/2013 07/07/2013 Inactive spironolactone 25 mg tablet RxNorm: 824082 1 Tablet(s) PO QAM 05/3010/15/2013 Inactive clindamycin 300 mg capsule RxNorm: 985630 2 Capsule(s) PO TID 04/1704/30/2013 Inactive warfarin 5 mg tablet RxNorm: 101527 1 Tablet(s) PO QD 03/12/201305/20 Inactive azithromycin 250 mg tablet RxNorm: 118416 2 Tablet(s) PO QD 013 03/07/2013 Inactive metformin ER 500 mg tablet,extended release 24 hr RxNorm: 86 0975 1 Tablet(s) PO BID 02/22/2013 12/17/2013 Inactive spironolactone 25 mg tablet RxNorm: 946824 1 Tablet(s) PO QAM 01/2205/30/2013 Inactive metformin ER 500 mg tablet,extended release 24 hr RxNorm: 86 0977 1 Tablet(s) PO BID 01/11/2013 02/21/2013 Inactive pravastatin 40 mg tablet RxNorm: 469739 1 Tablet(s) PO QD 01/11/2013 07/24/2013 Inactive warfarin 5 mg tablet RxNorm: 141020 1 Tablet(s) PO QD 01/04/201302/19 Inactive warfarin 1 mg tablet RxNorm: 597901 Tablet(s) PO TAKE O NE TABLET BY MOUTH DIRECTED ON MON AND THUR 12/14/2012 07/08/2013 Inactive scopolamine 1.5 mg 72 hr Transderm Patch RxNorm: 247219 TD Apply 1 patch behind ear every 72 hours, replace after 3 days. 11/08/2012 01/15/2014 Inacti ve Pepcid 20 mg tablet RxNorm: 130809 1 Tablet(s) PO BID as needed 01/31/2013 Inactive Famvir 500 mg tablet RxNorm: 295660 1 Tablet(s) PO Q8H 11/03/2012 Inactive Aciphex 20 mg tablet,delayed release RxNorm: 747856 1 Tablet(s) PO QD 11/03/2012 05/01/2013 Inactive Omeprazole and Pepci d have not helped. gabapentin 300 mg capsule RxNorm: 921359 Capsule(s) PO TID 11/04/19 13 01/15/2014 Inactive warfarin 5 mg tablet RxNorm: 010384 1 Tablet(s) PO QD 11/02/201212/19 Inactive Wellbutrin XL 300 mg 24 hr tablet, extended release RxNorm: 845512 1 Tablet(s) PO QD 10/17/2012 04/30/2013 Inactive pravastatin 40 mg tablet RxNorm: 572376 Tablet(s) PO TA KE ONE TABLET BY MOUTH EVERY DAY. NEED FASTING LABS 09/18/2012 01/10/2013 Inactive Toprol XL 200 mg tablet,extended release RxNorm: 835038 Tablet(s) PO TAKE ONE TABLET BY MOUTH EVERY DAY 09/08/2012 10/01/2013 Inactive warfarin 5 mg tablet RxNorm: 366692 1 Tablet(s) PO QD 08/31/201210/19 Inactive pravastatin 40 mg tablet RxNorm: 017395 1 Tablet(s) PO QD Needs fasting labs 08/18/2012 09/16/2012 Inactive TAKE ONE TABLET BY M OUTH EVERY DAY warfarin 1 mg tablet RxNorm: 372705 1 Tablet(s) PO As directed on Mon and Th08/11/2012 12/13/2012 Inactive spironolactone 25 mg tablet RxNorm: 405415 1 Tablet(s) PO QAM 07/1110/08/2012 Inactive warfarin 5 mg tablet RxNorm: 613113 1 Tablet(s) PO QD 07/03/201208/19 Inactive Diflucan 100 mg tablet RxNorm: 288379 1 Tablet(s) PO QD 05/04/2012 Inactive Cipro 500 mg tablet RxNorm: 914420 1 Tablet(s) PO BID 05/04/201204/22 Inactive Aciphex 20 mg tablet,delayed release RxNorm: 720119 1 Tablet(s) PO QD 05/04/2012 07/02/2012 Inactive Omeprazole and Pepci d have not helped. warfarin 5 mg tablet RxNorm: 297288 1 Tablet(s) PO QD 05/02/201206/19 Inactive warfarin 5 mg tablet RxNorm: 006292 1 Tablet(s) PO QD 03/02/201204/21 Inactive Toprol XL 200 mg tablet,extended release RxNorm: 065506 1 Table t(s) PO QD 03/02/2012 05/30/2012 Inactive spironolactone 25 mg tablet RxNorm: 801676 1 Tablet(s) PO QAM 02/0707/11/2012 Inactive pravastatin 40 mg tablet RxNorm: 626468 Tablet(s) PO 01/31/201208/17 Inactive TAKE ONE TABLET BY MOUTH EVERY DAY pravastatin 40 mg tablet RxNorm: 741692 1 Tablet(s) PO QD 01/31/2012 08/18/2012 Inactive omeprazole 40 mg capsule,delayed release RxNorm: 750327 1 Capsule(s) PO QD for stomach 01/11/2012 11/02/2012 Inactive for stomach warfarin 5 mg tablet RxNorm: 002340 1 Tablet(s) PO QD 01/03/201202/18 Inactive warfarin 5 mg tablet RxNorm: 415507 1 Tablet(s) PO QD 12/03/201112/19 Inactive pravastatin 40 mg tablet RxNorm: 648955 1 Tablet(s) PO QD 11/25/2011 01/23/2012 Inactive cefdinir 300 mg Cap RxNorm: 157355 1 Capsule(s) PO BID 10/11/201103/2011 Inactive Culturelle 10 billion cell Cap RxNorm: 565716 1 Capsule(s) PO BID 0 10/11/2011 11/09/2011 Inactive Diflucan 100 mg Tab RxNorm: 673980 1 Tablet(s) PO QD 10/11/201110/19 Inactive Wellbutrin XL 300 mg 24 hr tablet, extended release RxNorm: 250300 1 Tablet(s) PO QD 09/14/2011 10/17/2012 Inactive pravastatin 40 mg tablet RxNorm: 192442 1 Tablet(s) PO QD 08/25/2011 11/25/2011 Inactive Coumadin 5 mg tablet RxNorm: 693177 Tablet(s) PO Take as direct ed by doctor. 07/07/2011 12/03/2011 Inactive Singulair 10 mg Tab RxNorm: 082442 1 Tablet(s) PO QD al lergy medication. (Please try to be consistent in dosing) 06/23/2011 01/15/2014 Inactive Diflucan 100 mg Tab RxNorm: 443934 1 Tablet(s) PO QD 06/14/201107/02 Inactive cefdinir 300 mg Cap RxNorm: 119292 1 Capsule(s) PO BID 06/14/201106/2011 Inactive pravastatin 40 mg Tab RxNorm: 165884 1 Tablet(s) PO QD 05/25/201108/2011 Inactive warfarin 5 mg Tab RxNorm: 954191 Tablet(s) PO 05/25/2011 10/18/2011 In active TAKE ONE TABLET BY MOUTH EVERY DAY Toprol XL 200 mg tablet,extended release RxNorm: 479814 1 Table t(s) PO QD 03/05/2011 06/02/2011 Inactive spironolactone 25 mg tablet RxNorm: 975312 1 Tablet(s) PO QAM 02/2402/08/2012 Inactive omeprazole 40 mg capsule,delayed release RxNorm: 966045 1 Capsule(s) PO QD for stomach 01/06/2011 01/11/2012 Inactive for stomach warfarin 5 mg Tab RxNorm: 585967 1 Tablet(s) PO QD 12/17/2010 011 Inactive warfarin 5 mg Tab RxNorm: 823339 1 Tablet(s) PO QD 11/18/2010 011 Inactive spironolactone 25 mg Tab RxNorm: 276729 1 Tablet(s) PO QAM 11/13/19 11 02/24/2011 Inactive Coumadin 6 mg Tab RxNorm: 048547 1 Tablet(s) PO QD 10/28/2010 011 Inactive May have generic hydrochlorothiazide 25 mg Tab RxNorm: 891876 1 Tablet(s) PO QAM 11/11/2010 Inactive Wellbutrin XL 300 mg 24 hr Tab RxNorm: 119393 1 Tablet(s) PO QD 09/14/2011 Inactive Septra DS 800 mg-160 mg Tab RxNorm: 489443 1 Tablet(s) PO BID 06/0806/17/2010 Inactive Pyridium 100 mg Tab RxNorm: 7573810 1 Tablet(s) PO TID 06/08/2010 Inactive Wellbutrin XL 300 mg 24 hr Tab RxNorm: 491548 1 Tablet(s) PO QD 05/201007/15/2010 Inactive hydroxyzine 25 mg Tab RxNorm: 384824 1 Tablet(s) PO QID prn itching--take routinely at bedtime. (pt. may not refil at this time but later) 05/20/2010 10/10/2011 Inactive Zyrtec 10 mg Tab RxNorm: 2433544 1 Tablet(s) PO BID 05/20/20102010 Inactive Coumadin 1 mg Tab RxNorm: 127650 1 Tablet(s) PO 6mg M-F, 7mg S-S 11/16/2010 Inactive hydroxyzine 25 mg Tab RxNorm: 299497 1 Tablet(s) PO QID prn itching--take routinely at bedtime 04/30/2010 05/19/2010 Inactive Toprol XL 200 mg 24 hr Tab RxNorm: 136214 1 Tablet(s) PO QD 011 06/23/2010 Inactive lisinopril-hydrochlorothiazide 10 mg-12.5 mg Tab RxNorm: 197 885 1 Tablet(s) PO QD 04/20/2010 04/29/2010 Inactive omeprazole 40 mg Cap, Delayed Release RxNorm: 742367 1 Capsule(s) PO QD for stomach 04/20/2010 08/17/2010 Inactive lisinopril-hydrochlorothiazide 10 mg-12.5 mg Tab RxNorm: 197 885 Tablet(s) PO 1QDAM - TAKE ONE TABLET BY MOUTH EVERY DAY IN THE MORNING 03/09/2010 Inactive lisinopril-hydrochlorothiazide 10 mg-12.5 mg Tab RxNorm: 197 885 1 Tablet(s) PO QD 02/27/2010 04/20/2010 Inactive Wellbutrin XL 300 mg 24 hr Tab RxNorm: 734889 1 Tablet(s) PO QD 05/21/2010 Inactive lisinopril-hydrochlorothiazide 10 mg-12.5 mg Tab RxNorm: 197 885 1 Tablet(s) PO QD 01/28/2010 02/26/2010 Inactive omeprazole 40 mg Cap, Delayed Release RxNorm: 486214 1 Capsule(s) PO QD for stomach 01/22/2010 04/20/2010 Inactive Altace 10 mg Cap RxNorm: 922388 1 Capsule(s) PO QD for BP 01/22/2010 03/22/2010 Inactive Coumadin 6 mg Tab RxNorm: 587282 1 Tablet(s) PO QD May have generic 12/03/2009 05/01/2010 Inactive Coumadin 6 mg Tab RxNorm: 183624 1 Tablet(s) PO 12/01/2009 12/02/2009 Inactive Coumadin 1 mg Tab RxNorm: 440529 1 Tablet(s) PO QD 11/28/2009 010 Inactive Coumadin 1 mg Tab RxNorm: 446699 1 Tablet(s) PO QD 07/02/2009 010 Inactive lisinopril-hydrochlorothiazide 20 mg-12.5 mg Tab RxNorm: 197 886 2 Tablet(s) PO QAM No Start Date 10/12/2010 Inactive Zofran ODT 4 mg disintegrating tablet RxNorm: 471690 1 Tablet(s) PO Q6H as needed for nausea No Start Date 09/14/2016 Inactive Wellbutrin XL 300 mg 24 hr Tab RxNorm: 886002 1 Tablet(s) PO QD No Start Date 02/02/2010 Inactive alprazolam 0.25 mg tablet RxNorm: 581382 1 Tablet(s) PO prior t o flight No Start Date 05/24/2017 Inactive hydrocodone-acetaminophen 5 mg-500 mg Tab RxNorm: 661258 1-2 Tablet(s) PO Q4H as needed for pain No Start Date 12/02/2010 Inactive Toprol XL 100 mg 24 hr Tab RxNorm: 727285 1 Tablet(s) PO QD No Star t Date 10/14/2013 Inactive Celebrex 200 mg capsule RxNorm: 958919 1 Capsule(s) PO QD No Start Date 05/22/2017 Inactive Flexeril 10 mg tablet RxNorm: 453905 1 Tablet(s) PO TID No Start Da te 04/02/2019 Inactive scopolamine 1 mg over 3 days transdermal patch RxNorm: 55763 2 1 TD take off in 72 hours. No Start Date 07/31/2017 Inactive OneTouch Ultra Test strips RxNorm: Test blood sugar daily No S tart Date 04/23/2018 Inactive Medrol (Dale) 4 mg tablets in a dose pack RxNorm: 513510 Tablet(s) PO As directed No Start Date 01/15/2014 Inactive Coumadin 5 mg Tab RxNorm: 909656 1 Tablet(s) PO QD No Start Date 06/19 Inactive Pepcid 40 mg Tab RxNorm: 452556 1 Tablet(s) PO QD No Start Date 06/23 Inactive prednisone 10 mg Tab RxNorm: 401570 1 Tablet(s) PO BID No Start Date 06/23/2010 Inactive spironolactone 25 mg tablet RxNorm: 000322 1 Tablet(s) PO QAM No St art Date 09/26/2018 Inactive scopolamine 1.5 mg 72 hr Transderm Patch RxNorm: 816547 TD Apply 1 patch behind ear every 72 hours, replace after 3 days. No Start Date 11/07/2012 Inacti ve azithromycin 250 mg Tab RxNorm: 629601 Tablet(s) PO 2 t abs on day one and one tab on days 2-5. (antibiotic) No Start Date 10/10/2011 Inactive Medrol (Dale) 4 mg Tabs in a Dose Pack RxNorm: 350306 1 Tablet(s) PO as directed. (steroid pack) No Start Date 10/10/2011 Inactive Lovenox 40 mg/0.4 mL subcutaneous syringe RxNorm: 004709 40 Mil ligram(s) SQ QD No Start Date 05/04/2018 Inactive Celebrex 200 mg capsule RxNorm: 010039 1 Capsule(s) PO BID as n eeded for pain No Start Date 01/13/2017 Inactive warfarin 1 mg tablet RxNorm: 587385 1 Tablet(s) PO As directed on Tue and No Start Date 08/10/2012 Inactive cefuroxime axetil 500 mg Tab RxNorm: 019362 1 Tablet(s) PO BID No S tart Date 06/13/2011 Inactive Lovenox 40 mg/0.4 mL subcutaneous syringe RxNorm: 818603 40 Mil ligram(s) SQ QD No Start Date 01/26/2018 Inactive Coumadin 5 mg tablet RxNorm: 262761 1 Tablet(s) PO QD No Start Date 0 08/13/2013 Inactive Medrol (Dale) 4 mg tablets in a dose pack RxNorm: 750963 Tablet(s) PO as directed No Start Date 01/17/2014 Inactive Coumadin 6 mg tablet RxNorm: 221595 1 Tablet(s) PO QD No Start Date 0 06/20/2016 Inactive warfarin 5 mg tablet RxNorm: 709634 1 Tablet(s) PO QD No Start Date 0 12/02/2011 Inactive Medrol (Dale) 4 mg Tabs in a Dose Pack RxNorm: 177361 Tablet(s) PO as directed No Start Date 06/23/2010 Inactive Flonase 50 mcg/actuation nasal spray,suspension RxNorm: 8963 23 2 [place] NASAL BID No Start Date 12/05/2014 Inactive Pepcid 20 mg tablet RxNorm: 705983 1 Tablet(s) PO BID as needed No Start Date 11/02/2012 Inactive spironolactone 25 mg tablet RxNorm: 212581 1 Tablet(s) PO QAM No St art Date 04/02/2019 Inactive Medication Administered No Medication Administered data Immunizations No Immunization data Results Observation Observation Code Item Item Code Result Date S ervice Location MICROALBUMIN URINE RANDOM 20027 CREAT MG/D 139 MG/DL Unknown MICROALBUMIN URINE RANDOM 54867 CRE/100 1.39 G/L 12/20 Unknown Procedures Procedure Codes Date URINALYSIS NONAUTO W/O SCOPE CPT-4: 54626 09/27/2018 URINE CULTURE/ COLONY COUNT CPT-4: 43960 09/27/2018 URINALYSIS NONAUTO W/O SCOPE CPT-4: 08621 10/13/2017 URINE CULTURE/ COLONY COUNT CPT-4: 84893 10/13/2017 STREP A ASSAY W/OPTIC CPT-4: 64898 06/21/2016 STREP A ASSAY W/OPTIC CPT-4: 45943 06/24/2014 THER/PROPH/DIAG INJ SC/IM CPT-4: 65238 03/22/2014 METHYLPREDNISOLONE 40 MG INJ CPT-4: J1030 03/22/2014 TRIAMCINOLONE ACET INJ NOS CPT-4: J3301 03/22/2014 URINALYSIS NONAUTO W/O SCOPE CPT-4: 54697 10/19/2013 URINE CULTURE/ COLONY COUNT CPT-4: 19551 10/19/2013 CEFTRIAXONE SODIUM INJECTION CPT-4: J0696 03/02/2013 THER/PROPH/DIAG INJ SC/IM CPT-4: 21934 03/02/2013 CEFTRIAXONE SODIUM INJECTION CPT-4: J0696 03/01/2013 THER/PROPH/DIAG INJ SC/IM CPT-4: 66121 03/01/2013 THER/PROPH/DIAG INJ SC/IM CPT-4: 50758 03/01/2013 METHYLPREDNISOLONE 40 MG INJ CPT-4: J1030 03/01/2013 TRIAMCINOLONE ACET INJ NOS CPT-4: J3301 03/01/2013 MICROALBUMIN QUANTITATIVE CPT-4: 01988 01/11/2013 URINE CULTURE/ COLONY COUNT CPT-4: 57151 05/04/2012 URINALYSIS NONAUTO W/O SCOPE CPT-4: 37237 05/04/2012 URINE CULTURE/ COLONY COUNT CPT-4: 57041 05/29/2010 TRIAMCINOLONE ACET INJ NOS CPT-4: J3301 05/20/2010 METHYLPREDNISOLONE 40 MG INJ CPT-4: J1030 05/20/2010 THER/PROPH/DIAG INJ SC/IM CPT-4: 69570 05/20/2010 Vital Signs Date Vital 05/09/2019 Blood [...] 1: 134/78 Code: 8480-6 BMI: 35.1 Code: 79383-0 Heart Rate 1: 76 bpm Height: 5'9" Respiratory Rate: 20 bpm Temperature: 36 .6 (C) / 97.8 (F) Weight: 238 lbs 12/27/2017 Blood Pressure 1: 126/64 Code: 8480-6 BMI: 34.7 Code: 36152-9 Heart Rate 1: 72 bpm Height: 5'9" Respiratory Rate: 20 bpm Temperature: 36 .8 (C) / 98.2 (F) Weight: 235 lbs 10/12/2017 Blood Pressure 1: 142/80 Code: 8480-6 BMI: 35.1 Code: 06528-8 Heart Rate 1: 98 bpm Height: 5'9" Respiratory Rate: 22 bpm SpO2: 100% Tempera ture: 36.5 (C) / 97.7 (F) Weight: 238 lbs 09/16/2017 Blood Pressure 1: 136/82 Code: 8480-6 BMI: 34.1 Code: 17703-7 Heart Rate 1: 82 bpm Height: 5'9" Respiratory Rate: 18 bpm SpO2: 96% Tempera ture: 36.3 (C) / 97.3 (F) Weight: 231 lbs 05/25/2017 Blood Pressure 1: 122/82 Code: 8480-6 BMI: 32.3 Code: 53033-8 Heart Rate 1: 116 bpm Height: 5'9" Respiratory Rate: 20 bpm SpO2: 98% Tempera ture: 35.6 (C) / 96.1 (F) Weight: 219 lbs 01/03/2017 Blood Pressure 1: 126/78 Code: 8480-6 BMI: 33.4 Code: 42937-5 Heart Rate 1: 72 bpm Height: 5'9" Respiratory Rate: 20 bpm Temperature: 36 .8 (C) / 98.2 (F) Weight: 226 lbs 09/23/2016 Blood Pressure 1: 126/82 Code: 8480-6 BMI: 33.8 Code: 69208-8 Heart Rate 1: 80 bpm Height: 5'9" Respiratory Rate: 20 bpm SpO2: 97% Tempera ture: 36.8 (C) / 98.2 (F) Weight: 229 lbs 09/03/2016 Blood Pressure 1: 188/64 Code: 8480-6 Bl ood Pressure 2: 166/92 Code: 8480-6 BMI: 34.4 Code: 71081-3 Heart Rate 1: 66 bpm Height: 5'9" Res piratory Rate: 20 bpm SpO2: 98% Temperature: 35.7 (C) / 96.2 (F) Weight: 233 lbs 07/08/2016 Blood Pressure 1: 134/82 Code: 8480-6 Heart Rate 1: 64 bpm Height: 5'9" Respiratory Rate: 20 bpm SpO2: 97% Temperature: 36.6 (C) / 97.8 (F) Weight: 06/21/2016 Blood Pressure 1: 112/68 Code: 8480-6 BMI: 33.8 Code: 58864-7 Heart Rate 1: 64 bpm Height: 5'9" Respiratory Rate: 20 bpm SpO2: 95% Tempera ture: 36.3 (C) / 97.3 (F) Weight: 229 lbs 02/23/2016 Blood Pressure 1: 128/78 Code: 8480-6 BMI: 33.4 Code: 19173-6 Heart Rate 1: 74 bpm Height: 5'9" [...] 1: 122/80 Code: 8480-6 BMI: 32.2 Code: 91093-9 Heart Rate 1: 80 bpm Height: 5'9" Respiratory Rate: 20 bpm Temperature: 37 .0 (C) / 98.6 (F) Weight: 218 lbs 08/09/2014 Blood Pressure 1: 132/84 Code: 8480-6 BMI: 33.1 Code: 46142-9 Heart Rate 1: 72 bpm Height: 5'9" Respiratory Rate: 20 bpm Temperature: 36 .7 (C) / 98.0 (F) Weight: 224 lbs 06/24/2014 Blood Pressure 1: 132/80 Code: 8480-6 BMI: 32.8 Code: 43954-0 Heart Rate 1: 68 bpm Height: 5'9" Respiratory Rate: 20 bpm Temperature: 36 .4 (C) / 97.6 (F) Weight: 222 lbs 03/22/2014 Blood Pressure 1: 128/84 Code: 8480-6 BMI: 32.5 Code: 26218-4 Heart Rate 1: 78 bpm Height: 5'9" Respiratory Rate: 22 bpm Temperature: 36 .0 (C) / 96.8 (F) Weight: 220 lbs 03/05/2014 Blood Pressure 1: 124/78 Code: 8480-6 BMI: 31.9 Code: 72018-2 Heart Rate 1: 82 bpm Height: 5'9" Respiratory Rate: 20 bpm Temperature: 35 .8 (C) / 96.4 (F) Weight: 216 lbs 01/16/2014 Blood Pressure 1: 116/68 Code: 8480-6 BMI: 33.8 Code: 91560-6 Heart Rate 1: 72 bpm Height: 5'7" Respiratory Rate: 20 bpm Temperature: 36 .6 (C) / 97.9 (F) Weight: 216 lbs 05/10/2013 Blood Pressure 1: 124/86 Code: 8480-6 BMI: 34.3 Code: 12617-3 Heart Rate 1: 84 bpm Height: 5'7" [...] 1: 116/84 Code: 8480-6 BMI: 33.1 Code: 99830-1 Heart Rate 1: 64 bpm Height: 5'9" Respiratory Rate: 20 bpm Temperature: 36 .4 (C) / 97.6 (F) Weight: 224 lbs 01/11/2013 Blood Pressure 1: 126/84 Code: 8480-6 BMI: 35.3 Code: 44659-1 Heart Rate 1: 68 bpm Height: 5'9" Respiratory Rate: 20 bpm Temperature: 36 .7 (C) / 98.1 (F) Weight: 239 lbs 11/03/2012 Blood Pressure 1: 104/70 Code: 8480-6 BMI: 34.4 Code: 12815-5 Heart Rate 1: 72 bpm Height: 5'9" Respiratory Rate: 20 bpm Temperature: 36 .8 (C) / 98.3 (F) Weight: 233 lbs 05/04/2012 Blood Pressure 1: 124/74 Code: 8480-6 BMI: 33.7 Code: 33964-6 Heart Rate 1: 84 bpm Height: 5'9" Temperature: 36.3 (C) / 97.3 (F) Weight: 228 lbs 10/11/2011 Blood Pressure 1: 110/70 Code: 8480-6 BMI: 33.7 Code: 65743-4 Heart Rate 1: 64 bpm Height: 5'9" Temperature: 36.8 (C) / 98.3 (F) Weight: 228 lbs 06/23/2011 Blood Pressure 1: 114/70 Code: 8480-6 BMI: 33.4 Code: 12765-4 Heart Rate 1: 80 bpm Height: 5'9" Respiratory Rate: 20 bpm Temperature: 36 .7 (C) / 98.0 (F) Weight: 226 lbs 06/14/2011 Blood Pressure 1: 118/74 Code: 8480-6 BMI: 33.4 Code: 74117-3 Heart Rate 1: 80 bpm Height: 5'9" [...] 1: 126/82 Code: 8480-6 BMI: 32.6 Code: 09908-5 Heart Rate 1: 68 bpm Height: 5'9" [...] 1: 140/92 Code: 8480-6 BMI: 31.3 Code: 77942-6 Heart Rate 1: 60 bpm Height: 5'10" [...] upper back on 08/13/16 while camping around [place], [place]. Patient states is tender around tick [...] in throat follow up 11/12/2010 discuss labs, holdin g coumadin and is to recheck next Tuesday high blood pressure 10/13/2010 increased since had to stop Lisinopril HCT follow up 06/24/2010 [facility], still on Septra DS and Levaquin ~generic [...] 01/22/2010 Encounters Encounter Performer Location Codes Date () OFFICE/OUTPATIENT VISIT EST Diagnosis: Type 2 diabetes mellitus without complications[ICD10: E11.9] Jessica VO [facility]zauberLloyd [facility] CPT-4: 19286 05/09/2019 ([id number]) OFFICE/OUTPATIENT VISIT EST Diagnosis: Type 2 diabetes mellitus without complications[ICD10: E11.9] Diagnosis: Essential hypertension[ICD10: I10] Jessica OBRIEN [facility] CPT-4: 04425 04/03/2019 ([id number]) OFFICE/OUTPATIENT VISIT EST Diagnosis: Gastro-esophageal reflux disease without esophagitis[ICD10: K21.9] Diagnosis: Urinary tract infection, site not specified[ICD10: N39.0] Diagnosis: Ventral hernia without obstruction or gangrene[ICD10: K43.9] Jessica VO [facility]zauberLloyd [facility] CPT-4: 58761 09/27/2018 ([id number]) OFFICE/OUTPATIENT VISIT EST Diagnosis: Essential (primary) hypertension[ICD10: I10] Diagnosis: Type 2 diabetes mellitus without complications[ICD10: E11.9] Diagnosis: Carpal tunnel syndrome, right upper limb[ICD10: G56.01] Diagnosis: Primary insomnia[ICD10: F51.01] Jessica GEE DO [facility] CPT-4: 98431 04/24/2018 ([id number]) OFFICE/OUTPATIENT VISIT EST Diagnosis: Type 2 diabetes mellitus without complications[ICD10: E11.9] Diagnosis: Mixed hyperlipidemia[ICD10: E78.2] Diagnosis: Essential (primary) hypertension[ICD10: I10] Diagnosis: Pain in unspecified joint[ICD10: M25.50] Jessica GEE DO [facility] CPT-4: 91171 12/27/2017 ([id number]) NURSE/OUTPATIENT VISIT EST Diagnosis: Hematuria, unspecified[ICD10: R31.9] Jessica GEE Friday [facility] CPT-4: 35305 10/13/2017 ([id number]) OFFICE/OUTPATIENT VISIT EST Diagnosis: Pleurodynia[ICD10: R07.81] Sofi CAMPUZANO DO [facility] CPT-4: 36433 10/12/2017 ([id number]) OFFICE/OUTPATIENT VISIT EST Diagnosis: Acute bronchitis, unspecified[ICD10: J20.9] Sofi GEE DO [facility] CPT-4: 00287 09/16/2017 ([id number]) OFFICE/OUTPATIENT VISIT EST Diagnosis: Other specified postprocedural states[ICD10: Z98.890] Diagnosis: Cellulitis of neck[ICD10: L03.221] Diagnosis: Tachycardia, unspecified[ICD10: R00.0] Jessica BELTRAN SLloyd MCCORMICKER Friday [facility] CPT-4: 77993 05/25/2017 ([id number]) OFFICE/OUTPATIENT VISIT EST Diagnosis: Lumbago with sciatica, right side[ICD10: M54.41] Diagnosis: Pain in unspecified joint[ICD10: M25.50] Jessica GEE Friday [facility] CPT-4: 43450 01/03/2017 ([id number]) OFFICE/OUTPATIENT VISIT EST Diagnosis: Bitten or stung by nonvenomous insect and other nonvenomous arthropods, subsequent encounter[ICD10: W57.XXXD] Diagnosis: Essential (primary) hypertension[ICD10: I10] Diagnosis: Low back pain[ICD10: M54.5] Jessica CARBAJAL [facility] CPT-4: 05580 09/23/2016 OFFICE/OUTPATIENT VISIT EST Diagnosis: Bitten or stung by nonvenomous insect and other nonvenomous arthropods, initial encounter[ICD10: W57.XXXA] Diagnosis: Essential (primary) hypertension[ICD10: I10] Kaitlynn Mosley [facility]: 63781 09/03/2016 ([id number]) OFFICE/OUTPATIENT VISIT EST Diagnosis: Low back pain[ICD10: M54.5] Diagnosis: Radiculopathy, lumbosacral region[ICD10: M54.17] [facility]: 73174 07/08/2016 ([id number]) OFFICE/OUTPATIENT VISIT EST Diagnosis: Acute pharyngitis, unspecified[ICD10: J02.9] [facility]PT[facility]: 12927 06/21/2016 ([id number]) OFFICE/OUTPATIENT VISIT EST Diagnosis: Cough[ICD10: R05] Diagnosis: Fever, unspecified[ICD10: R50.9] Janiya MENDENHALLQUELINE [facility]ing[facility]Lloyd [facility] CPT-[facility]: 48374 02/23/2016 ([id number]) OFFICE/OUTPATIENT VISIT EST Diagnosis: Acute sinusitis, unspecified[ICD10: J01.90] Jesscia GEE [facility] CPT-4: 29054 02/16/2016 OFFICE/OUTPATIENT VISIT EST Diagnosis: Type 2 diabetes mellitus without complications[ICD10: E11.9] Diagnosis: Gastro-esophageal reflux disease without esophagitis[ICD10: K21.9] Diagnosis: Ventral hernia without obstruction or gangrene[ICD10: K43.9] Suki Barahona JESSICANATACHA GEE [facility] CPT-4: 40948 02/11/2015 OFFICE/OUTPATIENT VISIT EST 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] Diagnosis: Essential (primary) hypertension[ICD10: I10] Suki GEE DO [facility] CPT-4: 07539 01/28/2015 OFFICE/OUTPATIENT VISIT EST Diagnosis: SINUSITIS, ACUTE[ICD9: 461.9] Kaitlynn GEE [facility] CPT-4: 24287 12/06/2014 ([id number]) OFFICE/OUTPATIENT VISIT EST Diagnosis: SINUSITIS, ACUTE[ICD9: 461.9] Kaitlynn DownsSalguero JESSICA GEE [facility] CPT-4: 22371 08/09/2014 ([id number]) OFFICE/OUTPATIENT VISIT EST Diagnosis: TONSILLITIS, ACUTE[ICD9: 463] Suki GEE DO [facility] CPT-4: 11588 06/24/2014 OFFICE/OUTPATIENT VISIT EST Diagnosis: SINUSITIS, ACUTE[ICD9: 461.9] Diagnosis: EUSTACHIAN TUBE DYSFUNCTION[ICD9: 381.81] Diagnosis: COUGH[ICD9: 786.2] Suki GEE [facility] CPT-4: 74338 03/22/2014 OFFICE/OUTPATIENT VISIT EST Diagnosis: Elbow pain, right[ICD9: 719.42] Suki GEE DO [facility] CPT-4: 25787 03/05/2014 OFFICE/OUTPATIENT VISIT EST Diagnosis: SINUSITIS, ACUTE[ICD9: 461.9] Jessica SMITHLINE Monica GEE DO [facility] CPT-4: 61214 01/16/2014 ([id number]) OFFICE/OUTPATIENT VISIT EST Diagnosis: GROSS HEMATURIA[ICD9: 599.71] Jessica Michaelcorby JESSICA DomingaLloyd MARLEN [facility] CPT-4: 83249 10/19/2013 ([id number]) OFFICE/OUTPATIENT VISIT EST Diagnosis: DM W/O COMPLICATION TYPE II[ICD9: 250.00] Diagnosis: HYPERLIPIDEMIA NEC/NOS[ICD9: 272.4] Jessica KING S. ORENDER [facility] CPT-4: 48985 05/10/2013 ([id number]) OFFICE/OUTPATIENT VISIT EST Diagnosis: SINUSITIS, ACUTE[ICD9: 461.9] Jessica SMITHLINE Monica GEE [facility] CPT-4: 80766 04/17/2013 OFFICE/OUTPATIENT VISIT EST Diagnosis: OTITIS MEDIA NOS[ICD9: 382.9] Diagnosis: COUGH[ICD9: 786.2] Suki GEE DO [facility] CPT-4: 15301 03/05/2013 OFFICE/OUTPATIENT VISIT EST Diagnosis: COUGH[ICD9: 786.2] Diagnosis: BRONCHITIS, ACUTE[ICD9: 466.0] Suki GEE DO [facility] CPT-4: 95316 03/02/2013 OFFICE/OUTPATIENT VISIT EST Diagnosis: COUGH[ICD9: 786.2] Diagnosis: OTITIS MEDIA NOS[ICD9: 382.9] Diagnosis: BRONCHITIS, ACUTE[ICD9: 466.0] Suki GEE [facility] CPT-4: 85809 03/01/2013 OFFICE/OUTPATIENT VISIT EST Diagnosis: DM W/O COMPLICATION TYPE II, UNCONTROLLED[ICD9: 250.02] Jessica GEE [facility] CPT-4: 97477 02/22/2013 ([id number]) PREV VISIT EST AGE 40-64 Diagnosis: DM W/O COMPLICATION TYPE II, UNCONTROLLED[ICD9: 250.02] Diagnosis: HYPERTENSION[ICD9: 401.9] Diagnosis: ROUTINE MEDICAL EXAM[ICD9: V70.0] Jessica Rodriguezaaronderek SMITHLIN Lance GEE [facility] CPT-4: 13027 01/11/2013 OFFICE/OUTPATIENT VISIT EST Diagnosis: HZ (HERPES ZOSTER)[ICD9: 053.9] Kaitlynn Mosley JESSICA Monica [facility] CPT-4: 79828 11/03/2012 OFFICE/OUTPATIENT VISIT EST Diagnosis: URINARY TRACT INFECTION[ICD9: 599.0] Diagnosis: GERD[ICD9: 530.81] Diagnosis: PHARYNGITIS, ACUTE[ICD9: 462] Jessica SMITHLINE [facility] 19025 05/04/2012 OFFICE/OUTPATIENT VISIT EST Diagnosis: COUGH[ICD9: 786.2] Diagnosis: SINUSITIS, ACUTE[ICD9: 461.9] Diagnosis: PHARYNGITIS, ACUTE[ICD9: 462] Jessica Marlen SMITHLINE Monica GEE [facility] CPT-4: 42151 10/11/2011 OFFICE/OUTPATIENT VISIT EST Diagnosis: COUGH[ICD9: 786.2] Diagnosis: SINUSITIS, ACUTE[ICD9: 461.9] Diagnosis: PHARYNGITIS, ACUTE[ICD9: 462] Diagnosis: ALLERGIC RHINITIS[ICD9: 477.9] Xiomara Rodriguez JESSICA [facility]a [facility] CPT[facility]: 99817 06/23/2011 OFFICE/OUTPATIENT VISIT EST Diagnosis: COUGH[ICD9: 786.2] Diagnosis: SINUSITIS, ACUTE[ICD9: 461.9] Diagnosis: PHARYNGITIS, ACUTE[ICD9: 462] Jessica Marlen SMITHLINE DomingaLloyd [facility] CPT-4: 31236 06/14/2011 OFFICE/OUTPATIENT VISIT EST Diagnosis: SINUSITIS, ACUTE[ICD9: 461.9] Diagnosis: PHARYNGITIS, ACUTE[ICD9: 462] Jessica Marlen SMITHLINE DomingaLloyd [facility] CPT-4: 92220 12/02/2010 OFFICE/OUTPATIENT VISIT EST Diagnosis: HYPERTENSION[ICD9: 401.9] Diagnosis: HYPERLIPIDEMIA NEC/NOS[ICD9: 272.4] Diagnosis: DERMATITIS NOS[ICD9: 692.9] Jessica Michaelcorby VO S. Lizz RENDER [facility] CPT-4: 90911 11/12/2010 OFFICE/OUTPATIENT VISIT EST Jessica Michaelaaronderek JESSICA DomingaLloyd MICHAEL NDEYovany [facility] CPT- 4: 12814 10/13/2010 ([id number]) OFFICE/OUTPATIENT VISIT EST Jessica Michaelaaronderek TORIN RiceJOANNA OrrLloyd [facility] CPT-4: 75837 06/24/2010 ([id number]) OFFICE/OUTPATIENT VISIT EST Jessica Michaelcorby BELTRAN DomingaLloyd [facility] CPT-4: 50751 06/08/2010 ([id number]) OFFICE/OUTPATIENT VISIT EST Xiomara Desai ORENDER DO [facility] CPT-4: 30032 05/20/2010 ([id number]) OFFICE/OUTPATIENT VISIT EST Jessica RODRIGUEZNDER DO [facility] CPT-4: 16449 04/30/2010 ([id number]) OFFICE/OUTPATIENT VISIT, EST Jessica RODRIGUEZNDER DO [facility] CPT-4: 26032 01/22/2010 Plan of Care Planned Activity Notes Codes Status Date Appointment: Jessica Gee WPtel: [phone] [facility] US CANCELED 07/12/2019 Visit Diagnosis Plan: Type 2 diabetes mellitus without complications Discussion: Increase Jardience to 25mg daily Acccuchecks daily Check CMP, HbA1C in 2mos then fwup ICD-9 : 250.00 ICD-10 : E11.9 05/09/2019 Appointment: [phone] [facility] 05/09/2019 Patient Education: Jardiance Patient Savings Message Alert Completed 05/09/2019 Visit Diagnosis Plan: Type 2 diabetes mellitus without complications Discussion: Lab discussed Add jardience 10mg po q AM Hold spironolactone Accuchecks daily alternating times Fwup 1 month with BS readings Notify if any signs of yeast infection ICD-9 : 250.00 ICD-10 : E11.9 04/03/2019 Appointment: Jessica [facility]ee [facility]Ptel[phone] [facility] 04/03/2019 Visit Diagnosis Plan: Urinary tract infection, site no t specified Discussion: Bactrim DS 1 po BID for 1 week ICD-9 : 599.0 ICD-10 : N39.0 09/27/2018 Visit Diagnosis Plan: Ventral hernia without obstructi on or gangrene Discussion: Has had repaired before--discussed symptoms of heniation/strangulation ICD-9 : 553.20 ICD-10 : K43.9 09/27/2018 Visit Diagnosis Plan: Gastro-esophageal reflux disease without esophagitis Discussion: Continue current meds See surgery for EGD Discussed would need bridge with lovenox if have to hold coumadin for longer than a 2-3 days ICD-9 : 530.81 ICD-10 : K21.9 09/27/2018 Appointment: Jessica Gee WPtel: [address] [place] [address] ACUTE ILLNESS 09/27/2018 Visit Diagnosis Plan: Carpal tunnel syndrome, right up per limb Discussion: Scheduled for surgery on May [address] Norris ICD-9 : 354.0 ICD-10 : G56.01 04/24/2018 Visit Diagnosis Plan: Essential (primary) hypertension Discussion: Stable ICD-9 : 401.9 ICD-10 : I10 04/24/2018 Visit Diagnosis Plan: Type 2 diabetes mellitus without complications Discussion: Check CMP, Lipids Accuchecks daily ICD-9 : 250.00 ICD-10 : E11.9 04/24/2018 Visit Diagnosis Plan: Primary insomnia Discussion: Tri al of amitriptylene 25mg po q HS ICD-9 : 780.52 ICD-10 : F51.01 04/24/2018 Appointment: Jessica Gee WPtel: [address] [place] [address] ACUTE ILLNESS 04/24/2018 Patient Education: celecoxib- [employer] C[employer] [id number] Completed 04/24/2018 Patient Education: amitriptyline- [employer] C[employer]on [id number] Completed 04/24/2018 Visit Diagnosis Plan: Type 2 diabetes mellitus without complications Discussion: Lab discussed Take both 500mg metformin at same time to ascertain compliance Accuchecks daily Getting fllu shot at work Follow Up: 3 months ICD-9 : 250.00 ICD-10 : E11.9 12/27/2017 Visit Diagnosis Plan: Essential (primary) hypertension Discussion: Stable ICD-9 : 401.9 ICD-10 : I10 12/27/2017 Visit Diagnosis Plan: Pain in unspecified joint Discus ximena: Increase celebrex to 200mg po BID Add Vitamin D3 5000u daily Increase activity Going to have carpal tunnel surgery to both hands--seeing ortho ICD-9 : 719.40 ICD-10 : M25.50 12/27/2017 Appointment: Jessica Gee WPtel: [phone] [facility] FOLLOW UP 12/27/2017 Patient Education: Patient Medication Summary Completed 12/27/2017 Patient Education: Patient Medication Summary Completed 12/19/2017 Care Plan: MAMMOGRAM BOTH BREASTS LOINC : 14528-6 Pending 12/19/2017 Patient Education: Patient Medication Summary Completed 12/16/2017 Care Plan: ASSAY THYROID STIM HORMONE Pen ding 12/16/2017 Care Plan: ASSAY OF FREE THYROXINE Pendin g 12/16/2017 Care Plan: LIPID PANEL LOINC : 97221-9 Pending 12/16/2017 Care Plan: CBC Pending 12/16/2017 Care Plan: A1C HPLC LOINC : 45897-6 Pending 12/16/2017 Patient Education: Patient Medication Summary Completed 10/17/2017 Care Plan: CT ANGIOGRAPHY CHEST LOINC : 08805-1 Pending 10/17/2017 Patient Education: Patient Medication Summary Completed 10/14/2017 Care Plan: CT ANGIOGRAPHY CHEST LOINC : 58756-3 Pending 10/14/2017 Appointment: Jessica Gee WPtel: [phone] [id number] [place] [address] 10/13/2017 Patient Education: Patient Medication Summary Completed 10/13/2017 Visit Diagnosis Plan: Pleurodynia Discussion: patient sent for stat cxray. medrol dose pack prescribed for symptom management. instructed to perform deep breathing exercises at home to prevent atelectasis or pneumonia. will notify pa tient of results of xray and order additional tests/medications as needed. ICD-9 : 786.50 ICD-10 : R07.81 10/12/2017 Appointment: Sofi Gresham [address] [place], [place] [id number] ACUTE ILLNESS 10/12/2017 Patient Education: Patient Medication [...] ICD-10 : J20.9 09/16/2017 Appointment: Sofi Gresham [address] [place] [address] ACUTE ILLNESS 09/16/2017 Patient Education: Patient Medication Summary Completed 09/16/2017 Appointment: Jessica Gee WPtel: [address] [place], [place] [id number] [place] CANCELED 08/10/2017 Visit Diagnosis Plan: Cellulitis of neck Discussion: C ontinue abx and fwup with ID Just had PICC line pulled yesterday and started on Cipro ICD-9 : 682.1 ICD-10 : L03.221 05/25/2017 Visit Diagnosis Plan: Other specified postprocedural s tates Discussion: Fwup with neurosurgery ICD-9 : V45.89 ICD-10 : Z98.890 05/25/2017 Visit Diagnosis Plan: Tachycardia, unspecified Discuss ion: Go home and take metoprolol--patient skipped dose yesterday Follow Up: 3 months ICD-9 : 785.0 ICD-10 : R00.0 05/25/2017 Appointment: Jessica Gee WPtel: [address] [place] [address] FOLLOW UP 05/25/2017 Patient Education: Patient Medication Summary Completed 05/25/2017 Visit Diagnosis Plan: Lumbago with sciatica, right britton e Discussion: Check arthritis panel Patient awaiting neck surgery before surgery will consider back surgery ICD-9 : 724.2 ICD-10 : M54.41 01/03/2017 Appointment: Jessica Gee WPtel: [address] [place], [place] [id number] ACUTE ILLNESS 01/03/2017 Patient Education: Patient Medication Summary Completed 01/03/2017 Patient Education: Patient Medication Summary Completed 12/16/2016 Care Plan: MAMMOGRAM SCREENING LOINC : 2 6347-5 Pending 12/16/2016 Patient Education: Patient Medication Summary Completed 10/07/2016 Care Plan: MRI LUMBAR SPINE W/O & W/DYE LOINC : 13213-2 Pending 10/07/2016 Visit Diagnosis Plan: Bitten or stung by nonvenomous insect and other nonvenomous arthropods, subsequent encounter Discussion: Finish doxycycline and observe ICD-9 : E906.4 ICD-10 : W57.XXXD 09/23/2016 Visit Diagnosis Plan: Low back pain Discussion: Discus sed specialist referral for back--patient will check with insurance on which specialists are covered ICD-9 : 724.2 ICD-10 : M54.5 09/23/2016 Visit Diagnosis Plan: Essential (primary) hypertension Discussion: Continue higher dose of metoprolol and monitor BP ICD-9 : 401.9 ICD-10 : I10 09/23/2016 Appointment: Jessica Gee WPtel: [phone] 09/22 confirmed WORK IN 09/23/2016 Patient Education: Patient Medication Summary Completed 09/23/2016 Visit Plan: Tick panel at [facility] Increa se spironolactone to 2 po am (New Rx sent) Take B/P at home/work and also come to office next week for recheck Will await lab results before starting any antibiotic 09/03/2016 Appointment: Kaitlynn Mosley WPtel: [address] [place] [address] ACUTE ILLNESS 09/03/2016 Patient Education: Patient Medication Summary Completed 09/03/2016 Visit Diagnosis Plan: Low back pain Discussion: Celebr ex BID PT Continue stretches at home L/S xray Follow Up: 1 months ICD-9 : 724.2 ICD-10 : M54.5 07/08/2016 Appointment: Jessica Gee WPtel: [address] [place] [address] ACUTE ILLNESS 07/08/2016 Patient Education: Patient Medication Summary Completed 07/08/2016 Care Plan: X-RAY EXAM L-S SPINE 2/3 VWS LOINC : 20088-0 Pending 07/08/2016 Visit Plan: Supportive care. Rest, Fluid s, Tylenol/Motrin prn fever or bodyaches. Notify if worsening symptoms.New toothebrush in 5 days 06/21/2016 Visit Diagnosis Plan: Acute pharyngitis, unspecified D iscussion: Strep Negative Supportive Care May use zyrtec 10mg q HS ICD-9 : 462 ICD-10 : J02.9 06/21/2016 Visit NOS Plan: Plan Notes: Supportive care. Rest, Fluids... 06/21/2016 Appointment: Jessica Gee WPtel: [address] [place] [address] ACUTE ILLNESS 06/21/2016 Patient Education: Patient Medication Summary Completed 06/21/2016 Visit Plan: No pulseox last week to comp are to today, but she does sound diminished today Studies as above ordered Continue cefdinir until results received Increase albuterol treatments to q4-6hrs PRN Continue supportive care 02/23/2016 Appointment: Janiya Gregorio [address] [place] [address] ACUTE ILLNESS 02/23/2016 Patient Education: Patient Medication Summary Completed 02/23/2016 Care Plan: CHEST X-RAY 2VW FRONTAL&LATL LOINC : 09131-3 Pending 02/23/2016 Visit Plan: Saline nasal flushes prn. Ty lenol/Motrin prn headache. Notify if persists/symptoms worsening. 02/16/2016 Appointment: Jessica Gee WPtel: [address] [place] [address] ACUTE ILLNESS 02/16/2016 Patient Education: Patient Medication Summary Completed 02/16/2016 Visit Plan: Discussed labs Continue Topr ol at 200 mg PO daily Increase Aciphex to BID Notify if increase of Aciphex does not give relief. Repeat PT/INR in 2 weeks. 02/11/2015 Appointment: Suki Barahona WPtel: [address] [place], [place] [phone] 02/10 confirmed ~sl FOLLOW UP 02/11/2015 Patient Education: Patient Medication Summary Completed 02/11/2015 Patient Education: Patient Medication Summary Completed 02/06/2015 Care Plan: POC PROTIME/INR LOINC : 90882 -6 Pending 02/06/2015 Visit Plan: Increase Toprol XL 200 mg to one full tablet daily (is currently taking only 1/2 tablet) To VC for EKG today Monitor daily BP Notify of any changes- increased numbness, weakness, headache etc. 01/28/2015 Appointment: Suki Barahona WPtel: [address] [place] [address] ACUTE ILLNESS 01/28/2015 Patient Education: Patient Medication Summary Completed 01/28/2015 Visit Plan: ERx Amoxicillin and Flonase Nasal saline, humidified air Facial heat or cold packs for comfort Increase fluids/rest Discussed s/s of worsening, go to over weekend if these occur. 12/06/2014 Appointment: Kaitlynn Mosley WPtel: [address] [place] [address] ACUTE ILLNESS 12/06/2014 Patient Education: Patient Medication Summary Completed 12/06/2014 Appointment: Kaitlynn Mosley WPtel: [address] [place] [address] ACUTE ILLNESS 08/09/2014 Patient Education: Patient Medication Summary Completed 08/09/2014 Appointment: Suki Barahona WPtel: [address] [place], [place] [phone] ACUTE ILLNESS 06/24/2014 Patient Education: Patient Medication Summary Completed 06/24/2014 Appointment: Suki Barahona WPtel: [address] [place], [place] [phone] ACUTE ILLNESS 03/22/2014 Patient Education: Patient Medication Summary Completed 03/22/2014 Patient Education: [employer] - Antibi otics, Analgesics 18+, Oral Contraceptives F 18+ Completed 03/22/2014 Appointment: Suki Barahona WPtel: [address] [place], [place] [phone] FOLLOW UP 03/05/2014 Patient Education: Patient Medication Summary Completed 03/05/2014 Visit Plan: Saline nasal flushes prn. Ty lenol/Motrin prn headache. Notify if persists/symptoms worsening. Restart flonase 01/16/2014 Appointment: Jessica Gee WPtel: [address] [place], [place] [phone] ACUTE ILLNESS 01/16/2014 Patient Education: Patient Medication Summary Completed 01/16/2014 Appointment: Jessica Gee WPtel: [address] [address] 10/19/2013 Patient Education: Patient Medication Summary Completed 10/19/2013 Appointment: Jessica Gee WPtel: [address] [place] [address] 08/08 patient canceled appt and said will call back to [facility] FOLLOW UP 08/09/2013 Visit Plan: Increase Coumadin to 6mg M-F and stay on 5mg Sat, Sun Add lipids to labs Check PT/INR in 3wks Continue metfromin at current dose and accuchecks 05/10/2013 Appointment: Jessica Gee WPtel: [address] [place] [address] 05/09 FOLLOW UP 05/10/2013 Patient Education: Patient Medication Summary Completed 05/10/2013 Visit Plan: Saline nasal flushes prn. Ty lenol/Motrin prn headache. Notify if persists/symptoms worsening. 04/17/2013 Appointment: Jessica Gee WPtel: [address] [place] [address] ACUTE ILLNESS 04/17/2013 Patient Education: Patient Medication Summary Completed 04/17/2013 Appointment: Suki Barahona WPtel: [address] [place] [address] FOLLOW UP 03/05/2013 Patient Education: Patient Medication Summary Completed 03/05/2013 Appointment: Suki Barahona WPtel: [address] [place] [address] FOLLOW UP 03/02/2013 Patient Education: Patient Medication Summary Completed 03/02/2013 Appointment: Suki Barahona WPtel: [address] [place] [address] ACUTE ILLNESS 03/01/2013 Patient Education: Patient Medication Summary Completed 03/01/2013 Visit Plan: Continue metformin and accuc hecks Add fish oil 1gram daily Check HbA1C, CMP in 2mos then fwup 02/22/2013 Appointment: Jessica Gee WPtel: [address] [place] [address] 02/21 work vm FOLLOW UP 02/22/2013 Patient Education: Patient Medication Summary Completed 02/22/2013 Visit Plan: Start Metformin Start Accuch ecks daily alternating times Will go for dilated eye exam once BS more stabilized Diabetic foot care discussed Diabetic diet info given 01/11/2013 Appointment: Jessica Gee WPtel: [address] [place] [address] FOLLOW UP 01/11/2013 Patient Education: Patient Medication Summary Completed 01/11/2013 Appointment: Kaitlynn Mosley WPtel: [address] [place] [address] ACUTE ILLNESS 11/03/2012 Patient Education: Patient Medication Summary Completed 11/03/2012 Appointment: Xiomara Rodriguez WPtel: [address] [place] [address] ACUTE ILLNESS 05/04/2012 Patient Education: Patient Medication Summary Completed 05/04/2012 Visit Plan: pt reports that she always g ets yeast infections. Discussed that the antifungal can cause problems/increased bleeding with Coumdin. Pt. will start with probiotics and only take the Diflucan if needed. Cefdinir. 10/11/2011 Appointment: Xiomara Rodriguez WPtel: [address] [place], [place] [phone] ACUTE ILLNESS 10/11/2011 Patient Education: Patient Medication Summary Completed 10/11/2011 Appointment: Xiomara Rodriguez WPtel: [address] [place] [address] FOLLOW UP 06/23/2011 Patient Education: Patient Medication Summary Completed 06/23/2011 Visit Plan: Will prescribe an antibiotic and diflucan. Pt. reports that she frequently gets yeast infection. Discussed that she will notify if any symptoms persist. Pt. reports that her relatives have recently been hospitalized with pneumonia. 06/14/2011 Appointment: Xiomara Rodriguez WPtel: [address] [place] [address] ACUTE ILLNESS 06/14/2011 Patient Education: Patient Medication Summary Completed 06/14/2011 Visit Plan: sample of veramyst. Cefuroxi me axetil. Pt. will focus on hydration and rest. Discussed comfort measures and monitoring for worsening symptoms. 12/02/2010 Appointment: Xiomara Rodriguez WPtel: [address] [place] [address] ACUTE ILLNESS 12/02/2010 Patient Education: Patient Medication Summary Completed 12/02/2010 Visit Plan: Change HCTZ to spironolacton e will start zocor in 1 mo BP med in 1mo 11/12/2010 Appointment: Jessica Gee WPtel: [address] [place] [address] FOLLOW UP 11/12/2010 Patient Education: Patient Medication Summary Completed 11/12/2010 Appointment: Jessica Gee WPtel: [address] [place] [address] BP CHECK 10/26/2010 Patient Education: Patient Medication Summary Completed 10/26/2010 Visit Plan: Continue Toprol at bedtime A dd HCTZ in AM BP check in 2wks Fasting lab with next PT/INR 10/13/2010 Appointment: Jessica Gee WPtel: [address] [place] [address] FOLLOW UP 10/13/2010 Patient Education: Patient Medication Summary Completed 10/13/2010 Visit Plan: Cont abx. Fwup with surgery as scheduled 06/24/2010 Appointment: Jessica Gee WPtel: [address] [place] [address] Hospital Follow Up 06/24/2010 Patient Education: Patient Medication Summary Completed 06/24/2010 Appointment: Jessica Gee WPtel: [address] [place], [place] [address] [place] [facility] Follow Up 06/22/2010 Visit Plan: pt [...] to subside. 06/08/2010 Appointment: Xiomara Rodriguez WPtel: [address] [place] [address] ACUTE ILLNESS 06/08/2010 Patient Education: Patient Medication Summary Completed 06/08/2010 Appointment: Xiomara Rodriguez WPtel: [address] [place] [address] FOLLOW UP 06/01/2010 Appointment: Jessica Gee WPtel: [address] [place] [address] 05/29/2010 Patient Education: Patient Medication Summary Completed 05/29/2010 Appointment: Xiomara Rodriguez WPtel: [address] [place] [address] ACUTE ILLNESS 05/20/2010 Patient Education: Patient Medication Summary Completed 05/20/2010 Appointment: Jessica Gee WPtel: [address] [place] [address] BP CHECK 05/13/2010 Patient Education: Patient Medication Summary Completed 05/13/2010 Visit Plan: Increase Lisinopril hct to 2 0/12.5mg q AM Use atarax prn and routinely at bedtime and Medrol dose pack BP check in 3wks Pt defers stress test at this time 04/30/2010 Appointment: Jessica Gee WPtel: [address] [place] [address] ACUTE ILLNESS 04/30/2010 Patient Education: Patient Medication Summary Completed 04/30/2010 Appointment: [phone] [facility] 02/27/2010 Patient Education: Patient Medication Summary Completed 02/27/2010 Visit Plan: Cont Toprol Add Altace 10mg QD Cont Wellbutrin Will likely add SSRI after BP stable BP check in 2wks 01/22/2010 Appointment: Jessica Gee [facility]Ptel[phone] [facility] [facility] 01/22/2010 Patient Education: Patient Medication Summary Completed 01/22/2010 Referral: Rupa Raines WPtel: [address] [id number] [place] Referral Completed Referral: Neymar Alberts [facility]el[phone] [facility] [place] Referral Initiated Instructions Comment . Tick [...] No pulseox last week to compare to hillary garg, but she does sound diminished today [...] go to over weekend if these occur. . Saline [...]
--- OUTSIDE RECORDS SUMMARY | 2019-09-10 02:59 | XMS REPORT | CCD ---
Author Author Nava Gee D.O. Organization [facility] Address [address] [place] [address] Phone Care Team Providers Care Biological Inspector Name Role Phone Jessica Gee D.O., PP Unavailable CCM Unavailable Summary Purpose Interface Exchange Insurance Providers Payer name Policy type / Coverage type Covered alliance party ID Effective Begin Date Effective End Date Blue Cross Blue Shield Blue Cross/Blue Shield [id number] Unknown Family History Family History data not found Social History Social History Element Codes Description Effective Dates Tobacco history SNOMED CT: 141453697 Never smoker 10/13/2010 Allergies, Adverse Reactions, Alerts [...] findings ICD-9: V70.0 ICD-10: Z00.00 12/16/2017 Active terminologist (current) use of anticoagulants ICD-9: V58.6 1 [...] Start Date Stop Date Status Fill Instructions celecoxib 200 mg capsule RxNorm: 012436 TAKE 1 CAPSULE BY MOUTH TWICE DAILY 08/16/2019 11/13/2019 Active metformin ER 500 mg tablet,extended release 24 hr RxNorm: 86 0975 TAKE 1 TABLET BY MOUTH TWICE DAILY 07/30/2019 08/28/2019 Active warfarin 1 mg tablet RxNorm: 351207 1 Tablet(s) Oral QD along w ith warfarin 5mg 07/16/2019 No Stop Date Active pravastatin 40 mg tablet RxNorm: 483717 TAKE 1 TABLET BY MOUTH ONCE DAILY 07/10/2019 10/07/2019 Active Toprol XL 200 mg tablet,extended release RxNorm: 861873 1 Table t(s) Oral QD 06/15/2019 12/11/2019 Active Toprol XL 200 mg tablet,extended release RxNorm: 965384 1 Table t(s) Oral QD 06/13/2019 06/14/2019 Inactive warfarin 6 mg tablet RxNorm: 017204 1 Tablet(s) Oral QD 06/04/2019 No Stop Date Active metformin ER 500 mg tablet,extended release 24 hr RxNorm: 86 0975 TAKE 1 TABLET BY MOUTH TWICE DAILY 05/29/2019 07/27/2019 Inactive Jardiance 25 mg tablet RxNorm: 6686242 1 Tablet(s) Oral QD 05/09/19 20 05/23/2019 Inactive Jardiance 25 mg tablet RxNorm: 9455525 1 Tablet(s) Oral QAM 020 09/06/2019 Active Jardiance 10 mg tablet RxNorm: 7099849 1 Tablet(s) Oral QD 05/09/19 No Stop Date Active warfarin 6 mg tablet RxNorm: 712529 1 Tablet(s) Oral QD then on Tue/ take along with Warfarin 1mg (7mg) 05/09/2019 06/03/2019 Inactive warfarin 1 mg tablet RxNorm: 410506 1 Tablet(s) Oral on Tue and with 6mg tablet (total 7mg) 05/09/2019 07/15/2019 Inactive warfarin 5 mg tablet RxNorm: 995535 1 Tablet(s) Oral QD 05/02/2019 Inactive warfarin 1 mg tablet RxNorm: 924731 TAKE 1 TABLET BY [facility] ONCE DAILY. TAKE AN ADDITIONAL TABLET ON TUESDAY AND Tuesday05/02/2019 05/08/2019 Inactiv e Coumadin 5 mg tablet RxNorm: 157987 TAKE 1 TABLET BY MOUTH ONCE DAILY 04/02/2019 05/02/2019 Inactive celecoxib 200 mg capsule RxNorm: 175188 TAKE 1 CAPSULE BY MOUTH TWICE DAILY 03/20/2019 06/17/2019 Inactive metformin ER 500 mg tablet,extended release 24 hr RxNorm: 86 0975 TAKE 1 TABLET BY MOUTH TWICE DAILY 03/19/2019 05/17/2019 Inactive pravastatin 40 mg tablet RxNorm: 267806 TAKE 1 TABLET BY MOUTH ONCE DAILY 03/19/2019 06/16/2019 Inactive Coumadin 5 mg tablet RxNorm: 795738 TAKE 1 TABLET BY MOUTH ONCE DAILY 02/28/2019 04/01/2019 Inactive warfarin 1 mg tablet RxNorm: 857244 TAKE 1 TABLET BY [facility] ONCE DAILY. TAKE AN ADDITIONAL TABLET ON TUESDAY AND Tuesday02/28/2019 05/01/2019 Inactiv e omeprazole 40 mg capsule,delayed release RxNorm: 426038 TAKE 1 CAPSULE BY MOUTH TWICE DAILY 02/19/2019 No Stop Date Active metformin ER 500 mg tablet,extended release 24 hr RxNorm: 86 0975 1 Tablet(s) PO BID 02/19/2019 03/18/2019 Inactive metformin ER 500 mg tablet,extended release 24 hr RxNorm: 86 0975 1 Tablet(s) PO BID 01/15/2019 02/13/2019 Inactive alprazolam 0.25 mg tablet RxNorm: 501062 1 Tablet(s) Oral prior to flight 01/03/2019 No Stop Date Active omeprazole 40 mg capsule,delayed release RxNorm: 173440 TAKE 1 CAPSULE BY MOUTH TWICE DAILY 12/20/2018 02/18/2019 Inactive metformin ER 500 mg tablet,extended release 24 hr RxNorm: 86 0975 1 Tablet(s) PO BID 12/11/2018 01/09/2019 Inactive pravastatin 40 mg tablet RxNorm: 980405 TAKE 1 TABLET BY MOUTH ONCE DAILY 12/11/2018 03/18/2019 Inactive Coumadin 5 mg tablet RxNorm: 719835 1 Tablet(s) PO QD 11/27/201809/2018 Inactive metformin ER 500 mg tablet,extended release 24 hr RxNorm: 86 0975 1 Tablet(s) PO BID 10/02/2018 11/30/2018 Inactive warfarin 1 mg tablet RxNorm: 274106 TAKE 1 TABLET BY [facility] ONCE DAILY. TAKE AN ADDITIONAL TABLET ON TUESDAY AND Tuesday10/02/2018 02/27/2019 Inactiv e Bactrim DS 800 mg-160 mg tablet RxNorm: 076113 1 Tablet(s) PO BID 0 09/27/2018 10/03/2018 Inactive warfarin 5 mg tablet RxNorm: 331959 1 Tablet(s) PO QD 09/27/201810/2018 Inactive Toprol XL 200 mg tablet,extended release RxNorm: 391140 1 Table t(s) PO QD 09/18/2018 06/12/2019 Inactive omeprazole 40 mg capsule,delayed release RxNorm: 255184 TAKE 1 CAPSULE BY MOUTH TWICE DAILY 09/11/2018 12/19/2018 Inactive Coumadin 5 mg tablet RxNorm: 124690 1 Tablet(s) PO QD 08/21/201811/2018 Inactive metformin ER 500 mg tablet,extended release 24 hr RxNorm: 86 0975 1 Tablet(s) PO BID 07/31/2018 09/28/2018 Inactive omeprazole 40 mg capsule,delayed release RxNorm: 598755 TAKE 1 CAPSULE BY MOUTH TWICE DAILY 06/27/2018 09/10/2018 Inactive metformin ER 500 mg tablet,extended release 24 hr RxNorm: 86 0975 Tablet(s) 1 Tablet(s) PO BID 06/27/2018 07/31/2018 Inactive Toprol XL 200 mg tablet,extended release RxNorm: 936983 1 Table t(s) PO QD 06/14/2018 09/17/2018 Inactive Coumadin 5 mg tablet RxNorm: 847182 1 Tablet(s) PO QD 06/14/2018 0604/2018 Inactive metformin ER 500 mg tablet,extended release 24 hr RxNorm: 86 0975 Tablet(s) 1 Tablet(s) PO BID 05/22/2018 06/26/2018 Inactive Coumadin 5 mg tablet RxNorm: 285725 TAKE 1 TABLET BY MOUTH ONCE DAILY 05/11/2018 06/14/2018 Inactive Lovenox 40 mg/0.4 mL subcutaneous syringe RxNorm: 181264 40 Mil ligram(s) SQ QD 05/05/2018 09/26/2018 Inactive amitriptyline 25 mg tablet RxNorm: 504073 1 Tablet(s) PO QHS fo r sleep/HAs 04/24/2018 10/20/2018 Inactive MTM Laboratoriesuch Ultra Test strips RxNorm: Test blood sugar sigrid y (Dx:E11.65) 04/24/2018 No Stop Date Active celecoxib 200 mg capsule RxNorm: 309983 1 Capsule(s) PO BID 019 10/20/2018 Inactive Celebrex 200 mg capsule RxNorm: 642702 TAKE 1 CAPSULE BY MOUTH ONCE DAILY 04/19/2018 04/23/2018 Inactive warfarin 1 mg tablet RxNorm: 824248 1 Tablet(s) PO QD a nd additional tablet on Tue & 04/14/2018 10/01/2018 Inactive Toprol XL 200 mg tablet,extended release RxNorm: 311838 TAKE 1 TABLET BY MOUTH ONCE DAILY 04/11/2018 06/14/2018 Inactive metformin ER 500 mg tablet,extended release 24 hr RxNorm: 86 0975 Tablet(s) 1 Tablet(s) PO BID 03/17/2018 05/21/2018 Inactive Coumadin 5 mg tablet RxNorm: 147911 TAKE 1 TABLET BY MOUTH ONCE DAILY 03/15/2018 05/10/2018 Inactive Lovenox 40 mg/0.4 mL subcutaneous syringe RxNorm: 642744 40 Mil ligram(s) SQ QD 01/27/2018 04/11/2018 Inactive omeprazole 40 mg capsule,delayed release RxNorm: 538206 TAKE 1 CAPSULE BY MOUTH TWICE DAILY 01/23/2018 06/26/2018 Inactive pravastatin 40 mg tablet RxNorm: 888819 TAKE 1 TABLET BY MOUTH ONCE DAILY 01/23/2018 12/10/2018 Inactive metformin ER 500 mg tablet,extended release 24 hr RxNorm: 86 0975 Tablet(s) 1 Tablet(s) PO BID 01/16/2018 01/15/2018 Inactive Toprol XL 200 mg tablet,extended release RxNorm: 633328 TAKE 1 TABLET BY MOUTH ONCE DAILY 01/16/2018 04/10/2018 Inactive Coumadin 5 mg tablet RxNorm: 877606 TAKE 1 TABLET BY MOUTH ONCE DAILY 01/06/2018 03/14/2018 Inactive Celebrex 200 mg capsule RxNorm: 552336 1 Capsule(s) PO BID 12/28/1903/26/2018 Inactive metformin ER 500 mg tablet,extended release 24 hr RxNorm: 86 0975 1 Tablet(s) PO BID Needs APPT 12/21/2017 01/16/2018 Inactive omeprazole 40 mg capsule,delayed release RxNorm: 282953 TAKE 1 CAPSULE BY MOUTH TWICE DAILY 11/02/2017 01/22/2018 Inactive Celebrex 200 mg capsule RxNorm: 251293 1 Capsule(s) PO QD 11/01/2017 12/26/2017 Inactive Coumadin 5 mg tablet RxNorm: 544024 Tablet(s) TAKE ONE TABLET BY MOUTH ONCE DAILY. 10/31/2017 12/29/2017 Inactive warfarin 1 mg tablet RxNorm: 737718 1 Tablet(s) PO QD 10/31/201703/22 Inactive spironolactone 25 mg tablet RxNorm: 293114 TAKE TWO TAB LETS BY MOUTH IN THE MORNING 10/31/2017 04/23/2018 Inactive metformin ER 500 mg tablet,extended release 24 hr RxNorm: 86 0975 1 Tablet(s) PO BID Needs updated fasting lab 10/20/2017 12/21/2017 Inactive Medrol (Dale) 4 mg tablets in a dose pack RxNorm: 609613 Tablet(s) PO take as directed 10/12/2017 12/15/2017 Inactive Celebrex 200 mg capsule RxNorm: 591094 1 Capsule(s) PO QD 10/03/2017 10/02/2017 Inactive spironolactone 25 mg tablet RxNorm: 724340 TAKE TWO TAB LETS BY MOUTH IN THE MORNING 09/19/2017 10/30/2017 Inactive Zithromax Z-Dale 250 mg tablet RxNorm: 756621 Tablet(s) PO take as directed 09/16/2017 10/11/2017 Inactive Medrol (Dale) 4 mg tablets in a dose pack RxNorm: 943781 Tablet(s) take as directed PO 09/16/2017 10/11/2017 Inactive doxycycline hyclate 100 mg tablet RxNorm: 0445586 1 Tablet(s) PO BI D 09/16/2017 09/15/2017 Inactive doxycycline hyclate 100 mg tablet RxNorm: 3362713 1 Tablet(s) PO BI D 09/16/2017 09/25/2017 Inactive Tessalon Perles 100 mg capsule RxNorm: 040212 1 Capsule(s) PO T ID as needed 09/16/2017 12/15/2017 Inactive warfarin 1 mg tablet RxNorm: 643675 1 Tablet(s) PO QD 09/06/201710/19 Inactive Coumadin 5 mg tablet RxNorm: 594952 Tablet(s) TAKE ONE TABLET BY MOUTH ONCE DAILY. 09/06/2017 10/31/2017 Inactive Toprol XL 200 mg tablet,extended release RxNorm: 286232 1 Table t(s) PO QD 2017 01/02/2018 Inactive warfarin 1 mg tablet RxNorm: 109429 1 Tablet(s) PO QD DUE FOR L ABS AUGUST 12 08/29/2017 09/06/2017 Inactive Coumadin 5 mg tablet RxNorm: 686612 Tablet(s) TAKE ONE TABLET BY MOUTH ONCE DAILY. DUE FOR PT/INR AUGUST 12 08/29/2017 09/06/2017 Inactive Coumadin 5 mg tablet RxNorm: 565642 Tablet(s) TAKE ONE TABLET BY MOUTH ONCE DAILY. DUE FOR PT/INR AUGUST 12 08/01/2017 08/29/2017 Inactive warfarin 1 mg tablet RxNorm: 777993 1 Tablet(s) PO QD DUE FOR L ABS AUGUST 12 08/01/2017 08/29/2017 Inactive scopolamine 1 mg over 3 days transdermal patch RxNorm: 95097 2 1 TD take off in 72 hours. 08/01/2017 12/26/2017 Inactive pravastatin 40 mg tablet RxNorm: 016861 Tablet(s) TAKE ONE TABLET BY MOUTH ONCE DAILY 07/07/2017 01/02/2018 Inactive Coumadin 5 mg tablet RxNorm: 374069 Tablet(s) TAKE ONE TABLET BY MOUTH ONCE DAILY. DUE FOR PT/INR. 06/29/2017 08/01/2017 Inactive warfarin 1 mg tablet RxNorm: 895224 1 Tablet(s) PO QD 06/29/201707/19 Inactive Coumadin 5 mg tablet RxNorm: 115393 TAKE ONE TABLET BY MOUTH ONCE DAILY. DUE FOR PT/INR. 05/30/2017 06/29/2017 Inactive omeprazole 40 mg capsule,delayed release RxNorm: 706469 1 Capsu le(s) PO BID 05/30/2017 08/27/2017 Inactive Celebrex 200 mg capsule RxNorm: 370391 1 Capsule(s) PO QD 05/23/2017 10/03/2017 Inactive metformin ER 500 mg tablet,extended release 24 hr RxNorm: 86 0975 TAKE ONE TABLET BY MOUTH TWICE DAILY 05/20/2017 10/20/2017 Inactive Coumadin 5 mg tablet RxNorm: 666525 1 Tablet(s) PO QD due for PT/IN R 04/25/2017 05/24/2017 Inactive warfarin 1 mg tablet RxNorm: 991172 1 Tablet(s) PO QD due for l abs this week 03/16/2017 06/29/2017 Inactive omeprazole 40 mg capsule,delayed release RxNorm: 481997 1 Capsu le(s) PO BID 03/16/2017 05/30/2017 Inactive Celebrex 200 mg capsule RxNorm: 386833 1 Capsule(s) PO BID as n eeded for pain 03/16/2017 05/22/2017 Inactive Coumadin 5 mg tablet RxNorm: 456572 1 Tablet(s) PO QD due for PT/IN R 03/16/2017 04/14/2017 Inactive Celebrex 200 mg capsule RxNorm: 606104 1 Capsule(s) PO BID as n eeded for pain 02/09/2017 03/15/2017 Inactive Toprol XL 200 mg tablet,extended release RxNorm: 558532 1 Table t(s) PO QD 02/08/2017 2017 Inactive Celebrex 200 mg capsule RxNorm: 944567 1 Capsule(s) PO BID as n eeded for pain 01/14/2017 02/08/2017 Inactive omeprazole 40 mg capsule,delayed release RxNorm: 819604 1 Capsu le(s) PO BID 01/12/2017 03/16/2017 Inactive Coumadin 5 mg tablet RxNorm: 790914 1 Tablet(s) PO QD 12/15/201602/19 Inactive warfarin 1 mg tablet RxNorm: 587238 1 Tablet(s) PO QD 12/15/201602/19 Inactive metformin ER 500 mg tablet,extended release 24 hr RxNorm: 86 0975 Tablet(s) TAKE ONE TABLET BY MOUTH TWICE DAILY 11/29/2016 02/26/2017 Inactive omeprazole 40 mg capsule,delayed release RxNorm: 288836 1 Capsu le(s) PO BID 11/29/2016 12/28/2016 Inactive pravastatin 40 mg tablet RxNorm: 453366 Tablet(s) TAKE ONE TABLET BY MOUTH ONCE DAILY 11/19/2016 07/07/2017 Inactive omeprazole 40 mg capsule,delayed release RxNorm: 072141 1 Capsu le(s) PO BID 10/19/2016 10/18/2016 Inactive omeprazole 40 mg capsule,delayed release RxNorm: 185862 1 Capsu le(s) PO BID 10/19/2016 11/17/2016 Inactive pantoprazole 40 mg tablet,delayed release RxNorm: 987360 1 Tabl et(s) PO QD 09/30/2016 10/18/2016 Inactive pantoprazole 40 mg tablet,delayed release RxNorm: 557664 1 Tabl et(s) PO QD 09/30/2016 09/29/2016 Inactive Zofran ODT 4 mg disintegrating tablet RxNorm: 394795 1 Tablet(s) PO Q4H as needed for nausea 09/15/2016 01/02/2017 Inactive Coumadin 5 mg tablet RxNorm: 228190 1 Tablet(s) PO QD 09/14/201611/20 Inactive warfarin 1 mg tablet RxNorm: 982301 1 Tablet(s) PO QD 09/14/201611/20 Inactive spironolactone 25 mg tablet RxNorm: 127054 2 Tablet(s) PO QAM 09/0301/02/2017 Inactive Wellbutrin XL 300 mg 24 hr tablet, extended release RxNorm: 165830 TAKE ONE TABLET BY MOUTH ONCE DAILY 08/26/2016 12/26/2017 Inactive Toprol XL 200 mg tablet,extended release RxNorm: 337147 1 Table t(s) PO QD 07/28/2016 02/08/2017 Inactive metformin ER 500 mg tablet,extended release 24 hr RxNorm: 86 0975 Tablet(s) TAKE ONE TABLET BY MOUTH TWICE DAILY 07/15/2016 11/29/2016 Inactive cyclobenzaprine 5 mg tablet RxNorm: 449682 1 Tablet(s) PO QHS f or spasm 07/08/2016 08/06/2016 Inactive Celebrex 200 mg capsule RxNorm: 1 Capsule(s) PO BID 07/08/2016 Inactive spironolactone 25 mg tablet RxNorm: 473267 1 Tablet(s) PO QAM 07/0609/02/2016 Inactive Wellbutrin XL 300 mg 24 hr tablet, extended release RxNorm: 643797 TAKE ONE TABLET BY MOUTH ONCE DAILY 06/15/2016 07/14/2016 Inactive Coumadin 5 mg tablet RxNorm: 055572 1 Tablet(s) PO QD 06/08/201608/20 Inactive warfarin 1 mg tablet RxNorm: 272505 1 Tablet(s) PO QD 06/08/201608/20 Inactive Toprol XL 200 mg tablet,extended release RxNorm: 451435 TAKE ONE TABLET BY MOUTH ONCE DAILY 04/26/2016 07/28/2016 Inactive pravastatin 40 mg tablet RxNorm: 408766 TAKE ONE TABLET BY MOUT H ONCE DAILY 04/19/2016 10/15/2016 Inactive Coumadin 5 mg tablet RxNorm: 426653 1 Tablet(s) PO QD 03/09/201605/19 Inactive warfarin 1 mg tablet RxNorm: 935869 1 Tablet(s) PO QD 03/09/201605/19 Inactive metformin ER 500 mg tablet,extended release 24 hr RxNorm: 86 0975 TAKE ONE TABLET BY MOUTH TWICE DAILY 02/25/2016 07/15/2016 Inactive spironolactone 25 mg tablet RxNorm: 514347 TAKE ONE TAB LET BY MOUTH ONCE DAILY IN THE MORNING 02/25/2016 07/06/2016 Inactive prednisone 20 mg tablet RxNorm: 411699 1 Tablet(s) PO QAM 02/16/2016 02/20/2016 Inactive cefdinir 300 mg capsule RxNorm: 275148 2 Capsule(s) PO QD 02/16/2016 02/25/2016 Inactive Toprol XL 200 mg tablet,extended release RxNorm: 918804 TAKE ONE TABLET BY MOUTH ONCE DAILY 01/26/2016 04/24/2016 Inactive Aciphex 20 mg tablet,delayed release RxNorm: 937303 1 Tablet(s) PO BID 12/24/2015 09/29/2016 Inactive Omeprazole and Pepci d have not helped. Coumadin 5 mg tablet RxNorm: 426713 1 Tablet(s) PO QD 12/10/201502/19 Inactive Coumadin 5 mg tablet RxNorm: 966598 1 Tablet(s) PO QD 12/08/201511/20 Inactive Toprol XL 200 mg tablet,extended release RxNorm: 889210 TAKE ONE TABLET BY MOUTH ONCE DAILY 11/20/2015 01/18/2016 Inactive warfarin 1 mg tablet RxNorm: 679767 1 Tablet(s) PO QD 11/03/201502/19 Inactive pravastatin 40 mg tablet RxNorm: 074077 Tablet(s) TAKE ONE TABLET BY MOUTH ONCE DAILY 10/20/2015 01/17/2016 Inactive pravastatin 40 mg tablet RxNorm: 075207 TAKE ONE TABLET BY MOUT H ONCE DAILY 10/20/2015 10/19/2015 Inactive metformin ER 500 mg tablet,extended release 24 hr RxNorm: 86 0975 TAKE ONE TABLET BY MOUTH TWICE DAILY 10/03/2015 12/31/2015 Inactive Toprol XL 200 mg tablet,extended release RxNorm: 298739 TAKE ONE TABLET BY MOUTH ONCE DAILY 09/17/2015 11/15/2015 Inactive Coumadin 5 mg tablet RxNorm: 357876 1 Tablet(s) PO QD 09/02/201511/19 Inactive Wellbutrin XL 300 mg 24 hr tablet, extended release RxNorm: 912867 TAKE ONE TABLET BY MOUTH ONCE DAILY 08/01/2015 10/29/2015 Inactive Pepcid 20 mg tablet RxNorm: 389036 1 Tablet(s) PO BID as needed 05/24/2017 Inactive warfarin 1 mg tablet RxNorm: 433737 TAKE ONE TABLET BY MOUTH ON CE DAILY 07/08/2015 11/03/2015 Inactive pravastatin 40 mg tablet RxNorm: 570602 1 Tablet(s) PO QD 07/08/2015 10/05/2015 Inactive spironolactone 25 mg tablet RxNorm: 654902 TAKE ONE TAB LET BY MOUTH ONCE DAILY IN THE MORNING 06/13/2015 09/10/2015 Inactive Coumadin 5 mg tablet RxNorm: 707949 1 Tablet(s) PO QD 06/05/201508/19 Inactive Wellbutrin XL 300 mg 24 hr tablet, extended release RxNorm: 545491 TAKE ONE TABLET BY MOUTH ONCE DAILY 05/16/2015 09/26/2018 Inactive Wellbutrin XL 300 mg 24 hr tablet, extended release RxNorm: 761499 TAKE ONE TABLET BY MOUTH ONCE DAILY 05/16/2015 06/14/2015 Inactive metformin ER 500 mg tablet,extended release 24 hr RxNorm: 86 0975 TAKE ONE TABLET BY MOUTH TWICE DAILY 05/16/2015 08/13/2015 Inactive pravastatin 40 mg tablet RxNorm: 789546 1 Tablet(s) PO QD 04/10/2015 07/07/2015 Inactive Aciphex 20 mg tablet,delayed release RxNorm: 402248 1 Tablet(s) PO BID 03/07/2015 09/02/2015 Inactive Omeprazole and Pepci d have not helped. Toprol XL 200 mg tablet,extended release RxNorm: 264704 1 Table t(s) PO QD 03/05/2015 08/31/2015 Inactive Aciphex 20 mg tablet,delayed release RxNorm: 791210 1 Tablet(s) PO QD 03/04/2015 03/06/2015 Inactive Omeprazole and Pepci d have not helped. Coumadin 5 mg tablet RxNorm: 002018 1 Tablet(s) PO QD 02/28/2015 0311/2015 Inactive Aciphex 20 mg tablet,delayed release RxNorm: 878197 1 Tablet(s) PO BID 02/11/2015 03/03/2015 Inactive Omeprazole and Pepci d have not helped. metformin ER 500 mg tablet,extended release 24 hr RxNorm: 86 0975 1 Tablet(s) PO BID 01/10/2015 04/09/2015 Inactive pravastatin 40 mg tablet RxNorm: 887612 1 Tablet(s) PO QD 01/06/2015 04/05/2015 Inactive Wellbutrin XL 300 mg 24 hr tablet, extended release RxNorm: 842126 TAKE ONE TABLET BY MOUTH ONCE DAILY 12/19/2014 02/16/2015 Inactive amoxicillin 500 mg capsule RxNorm: 206227 2 Capsule(s) PO BID 12/0612/15/2014 Inactive Flonase 50 mcg/actuation nasal spray,suspension RxNorm: 8963 23 2 [place] each nostril NASAL QD 12/06/2014 03/05/2015 Inactive Coumadin 5 mg tablet RxNorm: 667554 1 Tablet(s) PO QD 11/28/201410/2014 Inactive spironolactone 25 mg tablet RxNorm: 193069 1 Tablet(s) PO QAM 11/2602/23/2015 Inactive Coumadin 5 mg tablet RxNorm: 730689 1 Tablet(s) PO QD 1 Tablet(s) PO QD- NEED TO CHECK LABS 10/30/2014 11/28/2014 Inactive warfarin 1 mg tablet RxNorm: 819084 1 Tablet(s) PO QD 10/30/201409/2015 Inactive Aciphex 20 mg tablet,delayed release RxNorm: 671745 1 Tablet(s) PO QD 10/02/2014 02/10/2015 Inactive Omeprazole and Pepci d have not helped. Coumadin 5 mg tablet RxNorm: 188027 1 Tablet(s) PO QD 1 Tablet(s) PO QD- NEED TO CHECK LABS 09/30/2014 10/30/2014 Inactive pravastatin 40 mg tablet RxNorm: 990500 1 Tablet(s) PO QD 09/25/2014 01/06/2015 Inactive warfarin 1 mg tablet RxNorm: 581268 1 Tablet(s) PO QD T [place] ONE TABLET BY MOUTH DIRECTED ON MON AND THUR 08/28/2014 10/29/2014 Inactive metformin ER 500 mg tablet,extended release 24 hr RxNorm: 86 0975 1 Tablet(s) PO BID 08/28/2014 01/10/2015 Inactive amoxicillin 875 mg tablet RxNorm: 275491 1 Tablet(s) PO BID 015 08/18/2014 Inactive Toprol XL 200 mg tablet,extended release RxNorm: 730508 TAKE ONE TABLET BY MOUTH ONCE DAILY 07/22/2014 03/05/2015 Inactive Coumadin 5 mg tablet RxNorm: 876183 1 Tablet(s) PO QD 07/01/201409/18 Inactive amoxicillin 875 mg tablet RxNorm: 417192 1 Tablet(s) PO BID 015 06/30/2014 Inactive pravastatin 40 mg tablet RxNorm: 116786 1 Tablet(s) PO QD needs fasting labs 06/19/2014 09/25/2014 Inactive Coumadin 5 mg tablet RxNorm: 844289 1 Tablet(s) PO QD 1 Tablet(s) PO QD TAKE ONE TABLET BY MOUTH ONCE DAILY-need labs 05/28/2014 07/01/2014 Inactive warfarin 1 mg tablet RxNorm: 865227 1 Tablet(s) PO As Directed 05/1908/28/2014 Inactive pravastatin 40 mg tablet RxNorm: 616607 1 Tablet(s) PO QD needs fasting labs 05/14/2014 06/19/2014 Inactive metformin ER 500 mg tablet,extended release 24 hr RxNorm: 86 0975 1 Tablet(s) PO BID 04/25/2014 08/28/2014 Inactive spironolactone 25 mg tablet RxNorm: 645518 1 Tablet(s) PO QAM 04/2511/26/2014 Inactive Coumadin 5 mg tablet RxNorm: 132526 1 Tablet(s) PO QD 1 Tablet(s) PO QD TAKE ONE TABLET BY MOUTH ONCE DAILY 04/23/2014 05/28/2014 Inactive Coumadin 5 mg tablet RxNorm: 316692 1 Tablet(s) PO QD 1 Tablet(s) PO QD TAKE ONE TABLET BY MOUTH ONCE DAILY 03/22/2014 04/20/2014 Inactive Tessalon Perles 100 mg capsule RxNorm: 844489 1 Capsule(s) PO TID 0 03/22/2014 03/28/2014 Inactive cefdinir 300 mg capsule RxNorm: 556905 2 Capsule(s) PO QD 03/22/2014 03/31/2014 Inactive Medrol (Dale) 4 mg tablets in a dose pack RxNorm: 234972 Tablet(s) PO as directed 03/05/2014 08/08/2014 Inactive Coumadin 5 mg tablet RxNorm: 568541 1 Tablet(s) PO QD 1 Tablet(s) PO QD TAKE ONE TABLET BY MOUTH ONCE DAILY 02/19/2014 03/20/2014 Inactive pravastatin 40 mg tablet RxNorm: 633195 1 Tablet(s) PO QD 02/04/2014 05/14/2014 Inactive Coumadin 5 mg tablet RxNorm: 856704 1 Tablet(s) PO QD T [place] ONE TABLET BY MOUTH ONCE DAILY 01/21/2014 02/19/2014 Inactive Medrol (Dale) 4 mg tablets in a dose pack RxNorm: 209257 Tablet(s) PO as directed 01/18/2014 03/04/2014 Inactive cefdinir 300 mg capsule RxNorm: 748801 2 Capsule(s) PO QD 01/16/2014 01/25/2014 Inactive metformin ER 500 mg tablet,extended release 24 hr RxNorm: 86 0975 1 Tablet(s) PO BID 12/17/2013 04/25/2014 Inactive Wellbutrin SR 150 mg tablet,sustained-release RxNorm: 167525 1 Tablet(s) PO BID 11/30/2013 02/27/2014 Inactive spironolactone 25 mg tablet RxNorm: 934278 1 Tablet(s) PO QAM 10/2204/25/2014 Inactive Macrobid 100 mg capsule RxNorm: 652048 1 Capsule(s) PO BID 10/20/19 14 10/25/2013 Inactive Macrobid 100 mg capsule RxNorm: 336774 1 Capsule(s) PO BID 10/20/19 14 10/18/2013 Inactive Toprol XL 100 mg tablet,extended release RxNorm: 732409 1 Table t(s) PO QD 10/15/2013 01/15/2014 Inactive Toprol XL 200 mg tablet,extended release RxNorm: 110897 1 Table t(s) PO QD 10/02/2013 07/22/2014 Inactive Wellbutrin XL 300 mg 24 hr tablet, extended release RxNorm: 700044 1 Tablet(s) PO QD 09/28/2013 12/19/2014 Inactive Aciphex 20 mg tablet,delayed release RxNorm: 871084 1 Tablet(s) PO QD 08/29/2013 10/02/2014 Inactive Omeprazole and Pepci d have not helped. Coumadin 5 mg tablet RxNorm: 297032 1 Tablet(s) PO QD 08/14/201307/20 Inactive Coumadin 5 mg tablet RxNorm: 705655 1 Tablet(s) PO QD 08/14/201305/2013 Inactive pravastatin 40 mg tablet RxNorm: 398412 1 Tablet(s) PO QD 07/24/2013 02/04/2014 Inactive warfarin 1 mg tablet RxNorm: 433043 1 Tablet(s) PO QD T [place] ONE TABLET BY MOUTH DIRECTED ON MON AND THUR 07/09/2013 05/28/2014 Inactive warfarin 5 mg tablet RxNorm: 040007 1 Tablet(s) PO QD T [place] ONE TABLET BY MOUTH EVERY DAY 06/08/2013 07/07/2013 Inactive spironolactone 25 mg tablet RxNorm: 596583 1 Tablet(s) PO QAM 05/3010/15/2013 Inactive clindamycin 300 mg capsule RxNorm: 341765 2 Capsule(s) PO TID 04/1704/30/2013 Inactive warfarin 5 mg tablet RxNorm: 593738 1 Tablet(s) PO QD 03/12/201305/20 Inactive azithromycin 250 mg tablet RxNorm: 526243 2 Tablet(s) PO QD 013 03/07/2013 Inactive metformin ER 500 mg tablet,extended release 24 hr RxNorm: 86 0975 1 Tablet(s) PO BID 02/22/2013 12/17/2013 Inactive spironolactone 25 mg tablet RxNorm: 364560 1 Tablet(s) PO QAM 01/2205/30/2013 Inactive metformin ER 500 mg tablet,extended release 24 hr RxNorm: 86 0977 1 Tablet(s) PO BID 01/11/2013 02/21/2013 Inactive pravastatin 40 mg tablet RxNorm: 996815 1 Tablet(s) PO QD 01/11/2013 07/24/2013 Inactive warfarin 5 mg tablet RxNorm: 111078 1 Tablet(s) PO QD 01/04/201302/19 Inactive warfarin 1 mg tablet RxNorm: 218433 Tablet(s) PO TAKE O NE TABLET BY MOUTH DIRECTED ON MON AND THUR 12/14/2012 07/08/2013 Inactive scopolamine 1.5 mg 72 hr Transderm Patch RxNorm: 646666 TD Apply 1 patch behind ear every 72 hours, replace after 3 days. 11/08/2012 01/15/2014 Inacti ve Pepcid 20 mg tablet RxNorm: 111053 1 Tablet(s) PO BID as needed 01/31/2013 Inactive Famvir 500 mg tablet RxNorm: 591498 1 Tablet(s) PO Q8H 11/03/2012 Inactive Aciphex 20 mg tablet,delayed release RxNorm: 680861 1 Tablet(s) PO QD 11/03/2012 05/01/2013 Inactive Omeprazole and Pepci d have not helped. gabapentin 300 mg capsule RxNorm: 221013 Capsule(s) PO TID 11/04/19 13 01/15/2014 Inactive warfarin 5 mg tablet RxNorm: 982646 1 Tablet(s) PO QD 11/02/201212/19 Inactive Wellbutrin XL 300 mg 24 hr tablet, extended release RxNorm: 393893 1 Tablet(s) PO QD 10/17/2012 04/30/2013 Inactive pravastatin 40 mg tablet RxNorm: 893192 Tablet(s) PO TA KE ONE TABLET BY MOUTH EVERY DAY. NEED FASTING LABS 09/18/2012 01/10/2013 Inactive Toprol XL 200 mg tablet,extended release RxNorm: 041918 Tablet(s) PO TAKE ONE TABLET BY MOUTH EVERY DAY 09/08/2012 10/01/2013 Inactive warfarin 5 mg tablet RxNorm: 250451 1 Tablet(s) PO QD 08/31/201210/19 Inactive pravastatin 40 mg tablet RxNorm: 091900 1 Tablet(s) PO QD Needs fasting labs 08/18/2012 09/16/2012 Inactive TAKE ONE TABLET BY M OUTH EVERY DAY warfarin 1 mg tablet RxNorm: 942722 1 Tablet(s) PO As directed on Mon and Thurs 08/11/2012 12/13/2012 Inactive spironolactone 25 mg tablet RxNorm: 543919 1 Tablet(s) PO QAM 07/1110/08/2012 Inactive warfarin 5 mg tablet RxNorm: 062987 1 Tablet(s) PO QD 07/03/201208/19 Inactive Diflucan 100 mg tablet RxNorm: 288970 1 Tablet(s) PO QD 05/04/2012 Inactive Cipro 500 mg tablet RxNorm: 051124 1 Tablet(s) PO BID 05/04/201204/22 Inactive Aciphex 20 mg tablet,delayed release RxNorm: 131192 1 Tablet(s) PO QD 05/04/2012 07/02/2012 Inactive Omeprazole and Pepci d have not helped. warfarin 5 mg tablet RxNorm: 997474 1 Tablet(s) PO QD 05/02/201206/19 Inactive warfarin 5 mg tablet RxNorm: 300373 1 Tablet(s) PO QD 03/02/201204/21 Inactive Toprol XL 200 mg tablet,extended release RxNorm: 926641 1 Table t(s) PO QD 03/02/2012 05/30/2012 Inactive spironolactone 25 mg tablet RxNorm: 348539 1 Tablet(s) PO QAM 02/0707/11/2012 Inactive pravastatin 40 mg tablet RxNorm: 734733 Tablet(s) PO 01/31/201208/17 Inactive TAKE ONE TABLET BY MOUTH EVERY DAY pravastatin 40 mg tablet RxNorm: 995535 1 Tablet(s) PO QD 01/31/2012 08/18/2012 Inactive omeprazole 40 mg capsule,delayed release RxNorm: 364285 1 Capsule(s) PO QD for stomach 01/11/2012 11/02/2012 Inactive for stomach warfarin 5 mg tablet RxNorm: 985628 1 Tablet(s) PO QD 01/03/201202/18 Inactive warfarin 5 mg tablet RxNorm: 471559 1 Tablet(s) PO QD 12/03/201112/19 Inactive pravastatin 40 mg tablet RxNorm: 691034 1 Tablet(s) PO QD 11/25/2011 01/23/2012 Inactive cefdinir 300 mg Cap RxNorm: 830937 1 Capsule(s) PO BID 10/11/201103/2011 Inactive Culturelle 10 billion cell Cap RxNorm: 341332 1 Capsule(s) PO BID 0 10/11/2011 11/09/2011 Inactive Diflucan 100 mg Tab RxNorm: 359962 1 Tablet(s) PO QD 10/11/201110/19 Inactive Wellbutrin XL 300 mg 24 hr tablet, extended release RxNorm: 783663 1 Tablet(s) PO QD 09/14/2011 10/17/2012 Inactive pravastatin 40 mg tablet RxNorm: 078861 1 Tablet(s) PO QD 08/25/2011 11/25/2011 Inactive Coumadin 5 mg tablet RxNorm: 270651 Tablet(s) PO Take as direct ed by doctor. 07/07/2011 12/03/2011 Inactive Singulair 10 mg Tab RxNorm: 146124 1 Tablet(s) PO QD al lergy medication. (Please try to be consistent in dosing) 06/23/2011 01/15/2014 Inactive Diflucan 100 mg Tab RxNorm: 258912 1 Tablet(s) PO QD 06/14/201107/02 Inactive cefdinir 300 mg Cap RxNorm: 580771 1 Capsule(s) PO BID 06/14/201106/2011 Inactive pravastatin 40 mg Tab RxNorm: 088118 1 Tablet(s) PO QD 05/25/201108/2011 Inactive warfarin 5 mg Tab RxNorm: 039867 Tablet(s) PO 05/25/2011 10/18/2011 In active TAKE ONE TABLET BY MOUTH EVERY DAY Toprol XL 200 mg tablet,extended release RxNorm: 315632 1 Table t(s) PO QD 03/05/2011 06/02/2011 Inactive spironolactone 25 mg tablet RxNorm: 226616 1 Tablet(s) PO QAM 02/2402/08/2012 Inactive omeprazole 40 mg capsule,delayed release RxNorm: 239094 1 Capsule(s) PO QD for stomach 01/06/2011 01/11/2012 Inactive for stomach warfarin 5 mg Tab RxNorm: 287845 1 Tablet(s) PO QD 12/17/2010 011 Inactive warfarin 5 mg Tab RxNorm: 665594 1 Tablet(s) PO QD 11/18/2010 011 Inactive spironolactone 25 mg Tab RxNorm: 363414 1 Tablet(s) PO QAM 11/13/19 11 02/24/2011 Inactive Coumadin 6 mg Tab RxNorm: 990878 1 Tablet(s) PO QD 10/28/2010 011 Inactive May have generic hydrochlorothiazide 25 mg Tab RxNorm: 179043 1 Tablet(s) PO QAM 11/11/2010 Inactive Wellbutrin XL 300 mg 24 hr Tab RxNorm: 572278 1 Tablet(s) PO QD 09/14/2011 Inactive Septra DS 800 mg-160 mg Tab RxNorm: 395066 1 Tablet(s) PO BID 06/0806/17/2010 Inactive Pyridium 100 mg Tab RxNorm: 5067760 1 Tablet(s) PO TID 06/08/2010 Inactive Wellbutrin XL 300 mg 24 hr Tab RxNorm: 492674 1 Tablet(s) PO QD 05/201007/15/2010 Inactive hydroxyzine 25 mg Tab RxNorm: 908340 1 Tablet(s) PO QID prn itching--take routinely at bedtime. (pt. may not refil at this time but later) 05/20/2010 10/10/2011 Inactive Zyrtec 10 mg Tab RxNorm: 4151520 1 Tablet(s) PO BID 05/20/20102010 Inactive Coumadin 1 mg Tab RxNorm: 527696 1 Tablet(s) PO 6mg M-F, 7mg S-S 11/16/2010 Inactive hydroxyzine 25 mg Tab RxNorm: 016002 1 Tablet(s) PO QID prn itching--take routinely at bedtime 04/30/2010 05/19/2010 Inactive Toprol XL 200 mg 24 hr Tab RxNorm: 853627 1 Tablet(s) PO QD 011 06/23/2010 Inactive lisinopril-hydrochlorothiazide 10 mg-12.5 mg Tab RxNorm: 197 885 1 Tablet(s) PO QD 04/20/2010 04/29/2010 Inactive omeprazole 40 mg Cap, Delayed Release RxNorm: 802352 1 Capsule(s) PO QD for stomach 04/20/2010 08/17/2010 Inactive lisinopril-hydrochlorothiazide 10 mg-12.5 mg Tab RxNorm: 197 885 Tablet(s) PO 1QDAM - TAKE ONE TABLET BY MOUTH EVERY DAY IN THE MORNING 03/09/2010 Inactive lisinopril-hydrochlorothiazide 10 mg-12.5 mg Tab RxNorm: 197 885 1 Tablet(s) PO QD 02/27/2010 04/20/2010 Inactive Wellbutrin XL 300 mg 24 hr Tab RxNorm: 402474 1 Tablet(s) PO QD 05/21/2010 Inactive lisinopril-hydrochlorothiazide 10 mg-12.5 mg Tab RxNorm: 197 885 1 Tablet(s) PO QD 01/28/2010 02/26/2010 Inactive omeprazole 40 mg Cap, Delayed Release RxNorm: 795021 1 Capsule(s) PO QD for stomach 01/22/2010 04/20/2010 Inactive Altace 10 mg Cap RxNorm: 212780 1 Capsule(s) PO QD for BP 01/22/2010 03/22/2010 Inactive Coumadin 6 mg Tab RxNorm: 369376 1 Tablet(s) PO QD May have generic 12/03/2009 05/01/2010 Inactive Coumadin 6 mg Tab RxNorm: 539276 1 Tablet(s) PO 12/01/2009 12/02/2009 Inactive Coumadin 1 mg Tab RxNorm: 612493 1 Tablet(s) PO QD 11/28/2009 010 Inactive Coumadin 1 mg Tab RxNorm: 906927 1 Tablet(s) PO QD 07/02/2009 010 Inactive lisinopril-hydrochlorothiazide 20 mg-12.5 mg Tab RxNorm: 197 886 2 Tablet(s) PO QAM No Start Date 10/12/2010 Inactive Zofran ODT 4 mg disintegrating tablet RxNorm: 109389 1 Tablet(s) PO Q6H as needed for nausea No Start Date 09/14/2016 Inactive Wellbutrin XL 300 mg 24 hr Tab RxNorm: 703246 1 Tablet(s) PO QD No Start Date 02/02/2010 Inactive alprazolam 0.25 mg tablet RxNorm: 962989 1 Tablet(s) PO prior t o flight No Start Date 05/24/2017 Inactive hydrocodone-acetaminophen 5 mg-500 mg Tab RxNorm: 879564 1-2 Tablet(s) PO Q4H as needed for pain No Start Date 12/02/2010 Inactive Toprol XL 100 mg 24 hr Tab RxNorm: 009917 1 Tablet(s) PO QD No Star t Date 10/14/2013 Inactive Celebrex 200 mg capsule RxNorm: 469865 1 Capsule(s) PO QD No Start Date 05/22/2017 Inactive Flexeril 10 mg tablet RxNorm: 544749 1 Tablet(s) PO TID No Start Da te 04/02/2019 Inactive scopolamine 1 mg over 3 days transdermal patch RxNorm: 48085 2 1 TD take off in 72 hours. No Start Date 07/31/2017 Inactive OneTouch Ultra Test strips RxNorm: Test blood sugar daily No S tart Date 04/23/2018 Inactive Medrol (Dale) 4 mg tablets in a dose pack RxNorm: 745048 Tablet(s) PO As directed No Start Date 01/15/2014 Inactive Coumadin 5 mg Tab RxNorm: 619133 1 Tablet(s) PO QD No Start Date 06/19 Inactive Pepcid 40 mg Tab RxNorm: 738479 1 Tablet(s) PO QD No Start Date 06/23 Inactive prednisone 10 mg Tab RxNorm: 216330 1 Tablet(s) PO BID No Start Date 06/23/2010 Inactive spironolactone 25 mg tablet RxNorm: 048526 1 Tablet(s) PO QAM No St art Date 09/26/2018 Inactive scopolamine 1.5 mg 72 hr Transderm Patch RxNorm: 465005 TD Apply 1 patch behind ear every 72 hours, replace after 3 days. No Start Date 11/07/2012 Inacti ve azithromycin 250 mg Tab RxNorm: 521431 Tablet(s) PO 2 t abs on day one and one tab on days 2-5. (antibiotic) No Start Date 10/10/2011 Inactive Medrol (Dale) 4 mg Tabs in a Dose Pack RxNorm: 804002 1 Tablet(s) PO as directed. (steroid pack) No Start Date 10/10/2011 Inactive Lovenox 40 mg/0.4 mL subcutaneous syringe RxNorm: 561435 40 Mil ligram(s) SQ QD No Start Date 05/04/2018 Inactive Celebrex 200 mg capsule RxNorm: 435837 1 Capsule(s) PO BID as n eeded for pain No Start Date 01/13/2017 Inactive warfarin 1 mg tablet RxNorm: 881453 1 Tablet(s) PO As directed on Tue and Th No Start Date 08/10/2012 Inactive cefuroxime axetil 500 mg Tab RxNorm: 858809 1 Tablet(s) PO BID No S tart Date 06/13/2011 Inactive Lovenox 40 mg/0.4 mL subcutaneous syringe RxNorm: 315996 40 Mil ligram(s) SQ QD No Start Date 01/26/2018 Inactive Coumadin 5 mg tablet RxNorm: 982202 1 Tablet(s) PO QD No Start Date 0 08/13/2013 Inactive Medrol (Dale) 4 mg tablets in a dose pack RxNorm: 940922 Tablet(s) PO as directed No Start Date 01/17/2014 Inactive Coumadin 6 mg tablet RxNorm: 045001 1 Tablet(s) PO QD No Start Date 0 06/20/2016 Inactive warfarin 5 mg tablet RxNorm: 028912 1 Tablet(s) PO QD No Start Date 0 12/02/2011 Inactive Medrol (Dale) 4 mg Tabs in a Dose Pack RxNorm: 888453 Tablet(s) PO as directed No Start Date 06/23/2010 Inactive Flonase 50 mcg/actuation nasal spray,suspension RxNorm: 8963 23 2 [place] NASAL BID No Start Date 12/05/2014 Inactive Pepcid 20 mg tablet RxNorm: 798609 1 Tablet(s) PO BID as needed No Start Date 11/02/2012 Inactive spironolactone 25 mg tablet RxNorm: 194294 1 Tablet(s) PO QAM No St art Date 04/02/2019 Inactive Medication Administered No Medication Administered data Immunizations No Immunization data Results Observation Observation Code Item Item Code Result Date S ervice Location MICROALBUMIN URINE RANDOM 89829 CREAT MG/D 139 MG/DL Unknown MICROALBUMIN URINE RANDOM 09191 CRE/100 1.39 G/L 12/20 Unknown Procedures Procedure Codes Date URINALYSIS NONAUTO W/O SCOPE CPT-4: 43931 09/27/2018 URINE CULTURE/ COLONY COUNT CPT-4: 78936 09/27/2018 URINALYSIS NONAUTO W/O SCOPE CPT-4: 57752 10/13/2017 URINE CULTURE/ COLONY COUNT CPT-4: 96451 10/13/2017 STREP A ASSAY W/OPTIC CPT-4: 54194 06/21/2016 STREP A ASSAY W/OPTIC CPT-4: 43100 06/24/2014 THER/PROPH/DIAG INJ SC/IM CPT-4: 75510 03/22/2014 METHYLPREDNISOLONE 40 MG INJ CPT-4: J1030 03/22/2014 TRIAMCINOLONE ACET INJ NOS CPT-4: J3301 03/22/2014 URINALYSIS NONAUTO W/O SCOPE CPT-4: 56420 10/19/2013 URINE CULTURE/ COLONY COUNT CPT-4: 01665 10/19/2013 CEFTRIAXONE SODIUM INJECTION CPT-4: J0696 03/02/2013 THER/PROPH/DIAG INJ SC/IM CPT-4: 33277 03/02/2013 CEFTRIAXONE SODIUM INJECTION CPT-4: J0696 03/01/2013 THER/PROPH/DIAG INJ SC/IM CPT-4: 03866 03/01/2013 THER/PROPH/DIAG INJ SC/IM CPT-4: 24781 03/01/2013 METHYLPREDNISOLONE 40 MG INJ CPT-4: J1030 03/01/2013 TRIAMCINOLONE ACET INJ NOS CPT-4: J3301 03/01/2013 MICROALBUMIN QUANTITATIVE CPT-4: 96669 01/11/2013 URINE CULTURE/ COLONY COUNT CPT-4: 73990 05/04/2012 URINALYSIS NONAUTO W/O SCOPE CPT-4: 56812 05/04/2012 URINE CULTURE/ COLONY COUNT CPT-4: 06310 05/29/2010 TRIAMCINOLONE ACET INJ NOS CPT-4: J3301 05/20/2010 METHYLPREDNISOLONE 40 MG INJ CPT-4: J1030 05/20/2010 THER/PROPH/DIAG INJ SC/IM CPT-4: 86406 05/20/2010 Vital Signs Date Vital 05/09/2019 Blood [...] 1: 134/78 Code: 8480-6 BMI: 35.1 Code: 88717-0 Heart Rate 1: 76 bpm Height: 5'9" Respiratory Rate: 20 bpm Temperature: 36 .6 (C) / 97.8 (F) Weight: 238 lbs 12/27/2017 Blood Pressure 1: 126/64 Code: 8480-6 BMI: 34.7 Code: 21504-9 Heart Rate 1: 72 bpm Height: 5'9" Respiratory Rate: 20 bpm Temperature: 36 .8 (C) / 98.2 (F) Weight: 235 lbs 10/12/2017 Blood Pressure 1: 142/80 Code: 8480-6 BMI: 35.1 Code: 22344-8 Heart Rate 1: 98 bpm Height: 5'9" Respiratory Rate: 22 bpm SpO2: 100% Tempera ture: 36.5 (C) / 97.7 (F) Weight: 238 lbs 09/16/2017 Blood Pressure 1: 136/82 Code: 8480-6 BMI: 34.1 Code: 19724-4 Heart Rate 1: 82 bpm Height: 5'9" Respiratory Rate: 18 bpm SpO2: 96% Tempera ture: 36.3 (C) / 97.3 (F) Weight: 231 lbs 05/25/2017 Blood Pressure 1: 122/82 Code: 8480-6 BMI: 32.3 Code: 77174-7 Heart Rate 1: 116 bpm Height: 5'9" Respiratory Rate: 20 bpm SpO2: 98% Tempera ture: 35.6 (C) / 96.1 (F) Weight: 219 lbs 01/03/2017 Blood Pressure 1: 126/78 Code: 8480-6 BMI: 33.4 Code: 94897-4 Heart Rate 1: 72 bpm Height: 5'9" Respiratory Rate: 20 bpm Temperature: 36 .8 (C) / 98.2 (F) Weight: 226 lbs 09/23/2016 Blood Pressure 1: 126/82 Code: 8480-6 BMI: 33.8 Code: 79226-9 Heart Rate 1: 80 bpm Height: 5'9" Respiratory Rate: 20 bpm SpO2: 97% Tempera ture: 36.8 (C) / 98.2 (F) Weight: 229 lbs 09/03/2016 Blood Pressure 1: 188/64 Code: 8480-6 Bl ood Pressure 2: 166/92 Code: 8480-6 BMI: 34.4 Code: 57620-8 Heart Rate 1: 66 bpm Height: 5'9" Res piratory Rate: 20 bpm SpO2: 98% Temperature: 35.7 (C) / 96.2 (F) Weight: 233 lbs 07/08/2016 Blood Pressure 1: 134/82 Code: 8480-6 Heart Rate 1: 64 bpm Height: 5'9" Respiratory Rate: 20 bpm SpO2: 97% Temperature: 36.6 (C) / 97.8 (F) Weight: 06/21/2016 Blood Pressure 1: 112/68 Code: 8480-6 BMI: 33.8 Code: 46923-0 Heart Rate 1: 64 bpm Height: 5'9" Respiratory Rate: 20 bpm SpO2: 95% Tempera ture: 36.3 (C) / 97.3 (F) Weight: 229 lbs 02/23/2016 Blood Pressure 1: 128/78 Code: 8480-6 BMI: 33.4 Code: 95335-5 Heart Rate 1: 74 bpm Height: 5'9" [...] 1: 122/80 Code: 8480-6 BMI: 32.2 Code: 50067-3 Heart Rate 1: 80 bpm Height: 5'9" Respiratory Rate: 20 bpm Temperature: 37 .0 (C) / 98.6 (F) Weight: 218 lbs 08/09/2014 Blood Pressure 1: 132/84 Code: 8480-6 BMI: 33.1 Code: 66206-6 Heart Rate 1: 72 bpm Height: 5'9" Respiratory Rate: 20 bpm Temperature: 36 .7 (C) / 98.0 (F) Weight: 224 lbs 06/24/2014 Blood Pressure 1: 132/80 Code: 8480-6 BMI: 32.8 Code: 74996-8 Heart Rate 1: 68 bpm Height: 5'9" Respiratory Rate: 20 bpm Temperature: 36 .4 (C) / 97.6 (F) Weight: 222 lbs 03/22/2014 Blood Pressure 1: 128/84 Code: 8480-6 BMI: 32.5 Code: 13175-7 Heart Rate 1: 78 bpm Height: 5'9" Respiratory Rate: 22 bpm Temperature: 36 .0 (C) / 96.8 (F) Weight: 220 lbs 03/05/2014 Blood Pressure 1: 124/78 Code: 8480-6 BMI: 31.9 Code: 57149-8 Heart Rate 1: 82 bpm Height: 5'9" Respiratory Rate: 20 bpm Temperature: 35 .8 (C) / 96.4 (F) Weight: 216 lbs 01/16/2014 Blood Pressure 1: 116/68 Code: 8480-6 BMI: 33.8 Code: 97235-0 Heart Rate 1: 72 bpm Height: 5'7" Respiratory Rate: 20 bpm Temperature: 36 .6 (C) / 97.9 (F) Weight: 216 lbs 05/10/2013 Blood Pressure 1: 124/86 Code: 8480-6 BMI: 34.3 Code: 87577-8 Heart Rate 1: 84 bpm Height: 5'7" [...] 1: 116/84 Code: 8480-6 BMI: 33.1 Code: 55932-3 Heart Rate 1: 64 bpm Height: 5'9" Respiratory Rate: 20 bpm Temperature: 36 .4 (C) / 97.6 (F) Weight: 224 lbs 01/11/2013 Blood Pressure 1: 126/84 Code: 8480-6 BMI: 35.3 Code: 02412-8 Heart Rate 1: 68 bpm Height: 5'9" Respiratory Rate: 20 bpm Temperature: 36 .7 (C) / 98.1 (F) Weight: 239 lbs 11/03/2012 Blood Pressure 1: 104/70 Code: 8480-6 BMI: 34.4 Code: 51599-7 Heart Rate 1: 72 bpm Height: 5'9" Respiratory Rate: 20 bpm Temperature: 36 .8 (C) / 98.3 (F) Weight: 233 lbs 05/04/2012 Blood Pressure 1: 124/74 Code: 8480-6 BMI: 33.7 Code: 87576-1 Heart Rate 1: 84 bpm Height: 5'9" Temperature: 36.3 (C) / 97.3 (F) Weight: 228 lbs 10/11/2011 Blood Pressure 1: 110/70 Code: 8480-6 BMI: 33.7 Code: 37716-5 Heart Rate 1: 64 bpm Height: 5'9" Temperature: 36.8 (C) / 98.3 (F) Weight: 228 lbs 06/23/2011 Blood Pressure 1: 114/70 Code: 8480-6 BMI: 33.4 Code: 25790-8 Heart Rate 1: 80 bpm Height: 5'9" Respiratory Rate: 20 bpm Temperature: 36 .7 (C) / 98.0 (F) Weight: 226 lbs 06/14/2011 Blood Pressure 1: 118/74 Code: 8480-6 BMI: 33.4 Code: 61083-7 Heart Rate 1: 80 bpm Height: 5'9" [...] 1: 126/82 Code: 8480-6 BMI: 32.6 Code: 62092-4 Heart Rate 1: 68 bpm Height: 5'9" [...] 1: 140/92 Code: 8480-6 BMI: 31.3 Code: 61104-5 Heart Rate 1: 60 bpm Height: 5'10" [...] upper back on 08/13/16 while camping around [place], [place]. Patient states is tender around tick [...] stop Lisinopril HCT follow up 06/24/2010 hospital fw, still on Septra DS and Levaquin ~generic [...] diabetes mellitus without complications[ICD10: E11.9] Jessica VO [employer] CPT-4: 67416 05/09/2019 ([id number]) OFFICE/OUTPATIENT VISIT EST Diagnosis: Type 2 diabetes mellitus without complications[ICD10: E11.9] Diagnosis: Essential hypertension[ICD10: I10] Jessica OBRIEN [employer] CPT-4: 04078 04/03/2019 ([id number]) OFFICE/OUTPATIENT VISIT EST Diagnosis: Gastro-esophageal reflux disease without esophagitis[ICD10: K21.9] Diagnosis: Urinary tract infection, site not specified[ICD10: N39.0] Diagnosis: Ventral hernia without obstruction or gangrene[ICD10: K43.9] Jessica VO [employer] CPT-4: 00081 09/27/2018 ([id number]) OFFICE/OUTPATIENT VISIT EST Diagnosis: Essential (primary) hypertension[ICD10: I10] Diagnosis: Type 2 diabetes mellitus without complications[ICD10: E11.9] Diagnosis: Carpal tunnel syndrome, right upper limb[ICD10: G56.01] Diagnosis: Primary insomnia[ICD10: F51.01] Jessica GEE DO [facility] CPT-4: 98131 04/24/2018 ([id number]) OFFICE/OUTPATIENT VISIT EST Diagnosis: Type 2 diabetes mellitus without complications[ICD10: E11.9] Diagnosis: Mixed hyperlipidemia[ICD10: E78.2] Diagnosis: Essential (primary) hypertension[ICD10: I10] Diagnosis: Pain in unspecified joint[ICD10: M25.50] Jessica GEE DO [facility] CPT-4: 58160 12/27/2017 ([id number]) NURSE/OUTPATIENT VISIT EST Diagnosis: Hematuria, unspecified[ICD10: R31.9] Jessica GEE [facility] CPT-4: 30743 10/13/2017 ([id number]) OFFICE/OUTPATIENT VISIT EST Diagnosis: Pleurodynia[ICD10: R07.81] Sofi CAMPUZANO [facility] CPT-4: 87668 10/12/2017 ([id number]) OFFICE/OUTPATIENT VISIT EST Diagnosis: Acute bronchitis, unspecified[ICD10: J20.9] Sofi GEE DO [facility] CPT-4: 05384 09/16/2017 ([id number]) OFFICE/OUTPATIENT VISIT EST Diagnosis: Other specified postprocedural states[ICD10: Z98.890] Diagnosis: Cellulitis of neck[ICD10: L03.221] Diagnosis: Tachycardia, unspecified[ICD10: R00.0] Jessica GEE [facility] CPT-4: 26204 05/25/2017 ([id number]) OFFICE/OUTPATIENT VISIT EST Diagnosis: Lumbago with sciatica, right side[ICD10: M54.41] Diagnosis: Pain in unspecified joint[ICD10: M25.50] Jessica GEE DO [facility] CPT-4: 41357 01/03/2017 ([id number]) OFFICE/OUTPATIENT VISIT EST Diagnosis: Bitten or stung by nonvenomous insect and other nonvenomous arthropods, subsequent encounter[ICD10: W57.XXXD] Diagnosis: Essential (primary) hypertension[ICD10: I10] Diagnosis: Low back pain[ICD10: M54.5] Jessica CARBAJAL [facility] CPT-4: 23169 09/23/2016 OFFICE/OUTPATIENT VISIT EST Diagnosis: Bitten or stung by nonvenomous insect and other nonvenomous arthropods, initial encounter[ICD10: W57.XXXA] Diagnosis: Essential (primary) hypertension[ICD10: I10] [facility]lynn Mosley [facility]: 63119 09/03/2016 ([id number]) OFFICE/OUTPATIENT VISIT EST Diagnosis: Low back pain[ICD10: M54.5] Diagnosis: Radiculopathy, lumbosacral region[ICD10: M54.17] [facility] CPT-[facility]: 62714 07/08/2016 ([id number]) OFFICE/OUTPATIENT VISIT EST Diagnosis: Acute pharyngitis, unspecified[ICD10: J02.9] [facility] C[facility]: 32311 06/21/2016 ([id number]) OFFICE/OUTPATIENT VISIT EST Diagnosis: Cough[ICD10: R05] Diagnosis: Fever, unspecified[ICD10: R50.9] [facility] CPT[facility]: 48501 02/23/2016 ([id number]) OFFICE/OUTPATIENT VISIT EST Diagnosis: Acute sinusitis, unspecified[ICD10: J01.90] [facility] CPT-[facility]: 32577 02/16/2016 OFFICE/OUTPATIENT VISIT EST Diagnosis: Type 2 diabetes mellitus without complications[ICD10: E11.9] Diagnosis: Gastro-esophageal reflux disease without esophagitis[ICD10: K21.9] Diagnosis: Ventral hernia without obstruction or gangrene[ICD10: K43.9] Suki Barahona [facility] CPT-4: 61934 02/11/2015 OFFICE/OUTPATIENT VISIT EST 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 CPT-4: 44387 01/28/2015 OFFICE/OUTPATIENT VISIT EST Diagnosis: SINUSITIS, ACUTE[ICD9: 461.9] Kaitlynn GEE DO [facility] CPT-4: 03434 12/06/2014 ([id number]) OFFICE/OUTPATIENT VISIT EST Diagnosis: SINUSITIS, ACUTE[ICD9: 461.9] Kaitlynn GEE DO [facility] CPT-4: 37172 08/09/2014 ([id number]) OFFICE/OUTPATIENT VISIT EST Diagnosis: TONSILLITIS, ACUTE[ICD9: 463] Suki GEE DO [facility] CPT-4: 73897 06/24/2014 OFFICE/OUTPATIENT VISIT EST Diagnosis: SINUSITIS, ACUTE[ICD9: 461.9] Diagnosis: EUSTACHIAN TUBE DYSFUNCTION[ICD9: 381.81] Diagnosis: COUGH[ICD9: 786.2] Suki GEE DO [facility] CPT-4: 83161 03/22/2014 OFFICE/OUTPATIENT VISIT EST Diagnosis: Elbow pain, right[ICD9: 719.42] Suki GEE DO [facility] CPT-4: 69849 03/05/2014 OFFICE/OUTPATIENT VISIT EST Diagnosis: SINUSITIS, ACUTE[ICD9: 461.9] Jessica Marlen SMITHLINE Monica GEE [facility] CPT-4: 38009 01/16/2014 ([id number]) OFFICE/OUTPATIENT VISIT EST Diagnosis: GROSS HEMATURIA[ICD9: 599.71] Jessica SMITHLINE Monica GEE DO [facility] CPT-4: 85931 10/19/2013 ([id number]) OFFICE/OUTPATIENT VISIT EST Diagnosis: DM W/O COMPLICATION TYPE II[ICD9: 250.00] Diagnosis: HYPERLIPIDEMIA NEC/NOS[ICD9: 272.4] Jessica Michaelcorby [employer] Monica GEE [facility] CPT-4: 19159 05/10/2013 ([id number]) OFFICE/OUTPATIENT VISIT EST Diagnosis: SINUSITIS, ACUTE[ICD9: 461.9] Jessica GEE [facility] CPT-4: 57486 04/17/2013 OFFICE/OUTPATIENT VISIT EST Diagnosis: OTITIS MEDIA NOS[ICD9: 382.9] Diagnosis: COUGH[ICD9: 786.2] Suki GEE [facility] CPT-4: 81934 03/05/2013 OFFICE/OUTPATIENT VISIT EST Diagnosis: COUGH[ICD9: 786.2] Diagnosis: BRONCHITIS, ACUTE[ICD9: 466.0] Suki GEE [facility] CPT-4: 44743 03/02/2013 OFFICE/OUTPATIENT VISIT EST Diagnosis: COUGH[ICD9: 786.2] Diagnosis: OTITIS MEDIA NOS[ICD9: 382.9] Diagnosis: BRONCHITIS, ACUTE[ICD9: 466.0] Suki GEE [facility] CPT-4: 02749 03/01/2013 OFFICE/OUTPATIENT VISIT EST Diagnosis: DM W/O COMPLICATION TYPE II, UNCONTROLLED[ICD9: 250.02] [facility] 09[facility] 02/22/2013 ([id number]) PREV VISIT EST AGE 40-64 Diagnosis: DM W/O COMPLICATION TYPE II, UNCONTROLLED[ICD9: 250.02] Diagnosis: HYPERTENSION[ICD9: 401.9] Diagnosis: ROUTINE MEDICAL EXAM[ICD9: V70.0] [facility] 88661 01/11/2013 OFFICE/OUTPATIENT VISIT EST Diagnosis: HZ (HERPES ZOSTER)[ICD9: 053.9] Kaitlynn Mosley [facility]: 38663 11/03/2012 OFFICE/OUTPATIENT VISIT EST Diagnosis: URINARY TRACT INFECTION[ICD9: 599.0] Diagnosis: GERD[ICD9: 530.81] Diagnosis: PHARYNGITIS, ACUTE[ICD9: 462] Jessica GEE [facility] CPT-4: 89026 05/04/2012 OFFICE/OUTPATIENT VISIT EST Diagnosis: COUGH[ICD9: 786.2] Diagnosis: SINUSITIS, ACUTE[ICD9: 461.9] Diagnosis: PHARYNGITIS, ACUTE[ICD9: 462] Jessica VO S. MICHAELNDER [facility] CPT-4: 17241 10/11/2011 OFFICE/OUTPATIENT VISIT EST Diagnosis: COUGH[ICD9: 786.2] Diagnosis: SINUSITIS, ACUTE[ICD9: 461.9] Diagnosis: PHARYNGITIS, ACUTE[ICD9: 462] Diagnosis: ALLERGIC RHINITIS[ICD9: 477.9] Xiomara VO S . MIC[facility]ELNDER [facility] CPT-4: 44150 06/23/2011 OFFICE/OUTPATIENT VISIT EST Diagnosis: COUGH[ICD9: 786.2] Diagnosis: SINUSITIS, ACUTE[ICD9: 461.9] Diagnosis: PHARYNGITIS, ACUTE[ICD9: 462] Jessica Marlen MENDENHALLQUELINE S. MIC[facility]EL[facility] CPT-4: 17341 06/14/2011 OFFICE/OUTPATIENT VISIT EST Diagnosis: SINUSITIS, ACUTE[ICD9: 461.9] Diagnosis: PHARYNGITIS, ACUTE[ICD9: 462] Jessica SMITHLINE S. ORENDER [facility] CPT-4: 45310 12/02/2010 OFFICE/OUTPATIENT VISIT EST Diagnosis: HYPERTENSION[ICD9: 401.9] Diagnosis: HYPERLIPIDEMIA NEC/NOS[ICD9: 272.4] Diagnosis: DERMATITIS NOS[ICD9: 692.9] Jessica Michaelcorby VO S. O RENDER [facility] CPT-4: 99293 11/12/2010 OFFICE/OUTPATIENT VISIT EST Jessica Michaelaaronderek JESSICA S. ORE NDER [facility] CPT- 4: 82913 10/13/2010 ([id number]) OFFICE/OUTPATIENT VISIT EST Jessica Michaelaaronderek TORIN BELTRAN S. ORENDER DO [facility] CPT-4: 23352 06/24/2010 ([id number]) OFFICE/OUTPATIENT VISIT EST Jessica BELTRAN S. ORENDER DO [facility] CPT-4: 19672 06/08/2010 ([id number]) OFFICE/OUTPATIENT VISIT EST Xiomara VO S . ORENDER [facility] CPT-4: 92611 05/20/2010 ([id number]) OFFICE/OUTPATIENT VISIT EST Jessica BELTRAN S. ORENDER DO [facility] CPT-4: 75318 04/30/2010 ([id number]) OFFICE/OUTPATIENT VISIT, EST Jessica Rodriguezcorby MENDENHALL NATACHA GEE DO [facility] CPT-4: 25348 01/22/2010 Plan of Care Planned Activity Notes Codes Status Date Appointment: Jessica Gee WPtel: [phone] [facility] [place] CANCELED 07/12/2019 Visit Diagnosis Plan: Type 2 diabetes mellitus without complications Discussion: Increase Jardience to 25mg daily Acccuchecks daily Check CMP, HbA1C in 2mos then fwup ICD-9 : 250.00 ICD-10 : E11.9 05/09/2019 Appointment: Jessica Gee WPtel: [facility] [place] FOLLOW UP 05/09/2019 Patient Education: Jardiance Patient Savings Message Alert Completed 05/09/2019 Visit Diagnosis Plan: Type 2 diabetes mellitus without complications Discussion: Lab discussed Add jardience 10mg po q AM Hold spironolactone Accuchecks daily alternating times Fwup 1 month with BS readings Notify if any signs of yeast infection ICD-9 : 250.00 ICD-10 : E11.9 04/03/2019 Appointment: Jessica Gee WPtel: [facility] [place] FOLLOW UP 04/03/2019 Visit Diagnosis Plan: [...] : K21.9 09/27/2018 Appointment: Jessica Gee WPtel: [address] [place] [address] ACUTE ILLNESS 09/27/2018 Visit Diagnosis Plan: Carpal [...] : F51.01 04/24/2018 Appointment: Jessica Gee WPtel: [address] [place] [address] ACUTE ILLNESS 04/24/2018 Patient Education: celecoxib- [employer] [id number] Completed 04/24/2018 Patient Education: amitriptyline- [employer] [id number] Completed 04/24/2018 Visit Diagnosis Plan: Type 2 [...] : M25.50 12/27/2017 Appointment: Jessica Gee WPtel: [address] [place] [address] FOLLOW UP 12/27/2017 Patient Education: Patient Medication Summary Completed 12/27/2017 Patient Education: Patient Medication Summary Completed 12/19/2017 Care Plan: MAMMOGRAM BOTH BREASTS LOINC : 15740-8 Pending 12/19/2017 Patient Education: Patient Medication Summary Completed 12/16/2017 Care Plan: ASSAY THYROID STIM HORMONE Pen ding 12/16/2017 Care Plan: ASSAY OF FREE THYROXINE Pendin g 12/16/2017 Care Plan: LIPID PANEL LOINC : 34259-1 Pending 12/16/2017 Care Plan: CBC Pending 12/16/2017 Care Plan: A1C HPLC LOINC : 69464-4 Pending 12/16/2017 Patient Education: Patient Medication Summary Completed 10/17/2017 Care Plan: CT ANGIOGRAPHY CHEST LOINC : 60284-8 Pending 10/17/2017 Patient Education: Patient Medication Summary Completed 10/14/2017 Care Plan: CT ANGIOGRAPHY CHEST LOINC : 51192-3 Pending 10/14/2017 Appointment: Jessica Gee WPtel: [facility]4 [facility] [place] [address] 10/13/2017 Patient Education: Patient Medication Summary Completed 10/13/2017 Visit Diagnosis Plan: Pleurodynia Discussion: patient sent for stat cxray. medrol dose pack prescribed for symptom management. instructed to perform deep breathing exercises at home to prevent atelectasis or pneumonia. will notify pa tient of results of xray and order additional tests/medications as needed. ICD-9 : 786.50 ICD-10 : R07.81 10/12/2017 Appointment: Sofi Gresham 504 [facility] ACUTE ILLNESS 10/12/2017 Patient Education: Patient Medication [...] ICD-10 : J20.9 09/16/2017 Appointment: Sofi Gresham [address] [facility] ACUTE ILLNESS 09/16/2017 Patient Education: Patient Medication Summary Completed 09/16/2017 Appointment: Jessica Gee WPtel: [address] [place], [place] [id number] [place] CANCELED 08/10/2017 Visit Diagnosis Plan: Cellulitis [...] : R00.0 05/25/2017 Appointment: Jessica Gee WPtel: [address] [place], [place] [phone] FOLLOW UP 05/25/2017 Patient Education: Patient Medication Summary Completed 05/25/2017 Visit Diagnosis Plan: Lumbago with sciatica, right britton e Discussion: Check arthritis panel Patient awaiting neck surgery before surgery will consider back surgery ICD-9 : 724.2 ICD-10 : M54.41 01/03/2017 Appointment: Jessica Gee WPtel: [address] [place], [place] [id number] ACUTE ILLNESS 01/03/2017 Patient Education: Patient Medication Summary Completed 01/03/2017 Patient Education: Patient Medication Summary Completed 12/16/2016 Care Plan: MAMMOGRAM SCREENING LOINC : 2 6347-5 Pending 12/16/2016 Patient Education: Patient Medication Summary Completed 10/07/2016 Care Plan: MRI LUMBAR SPINE W/O & W/DYE LOINC : 47138-1 Pending 10/07/2016 Visit Diagnosis Plan: Essential (primary) [...] : W57.XXXD 09/23/2016 Appointment: Jessica Gee WPtel: [address] [place] [address] 09/22 confirmed WORK IN 09/23/2016 Patient Education: Patient Medication Summary Completed 09/23/2016 Visit Plan: Tick panel at [facility] Increa se spironolactone to 2 po am (New Rx sent) Take B/P at home/work and also come to office next week for recheck Will await lab results before starting any antibiotic 09/03/2016 Appointment: Kaitlynn Mosley WPtel: [address] [place] [address] ACUTE ILLNESS 09/03/2016 Patient Education: Patient Medication Summary Completed 09/03/2016 Visit Diagnosis Plan: Low back pain Discussion: Celebr ex BID PT Continue stretches at home L/S xray Follow Up: 1 months ICD-9 : 724.2 ICD-10 : M54.5 07/08/2016 Appointment: Jessica Gee WPtel: [address] [place], [place] [id number] ACUTE ILLNESS 07/08/2016 Patient Education: Patient Medication Summary Completed 07/08/2016 Care Plan: X-RAY EXAM L-S SPINE 2/3 VWS LOINC : 65868-9 Pending 07/08/2016 Visit Plan: Supportive care. Rest, Fluid s, Tylenol/Motrin prn fever or bodyaches. Notify if worsening symptoms.New toothebrush in 5 days 06/21/2016 Visit NOS Plan: Plan Notes: Supportive care. Rest, Fluids... 06/21/2016 Visit Diagnosis Plan: Acute pharyngitis, unspecified D iscussion: Strep Negative Supportive Care May use zyrtec 10mg q HS ICD-9 : 462 ICD-10 : J02.9 06/21/2016 Appointment: Jessica Gee WPtel: [address] [place] [address] ACUTE ILLNESS 06/21/2016 Patient Education: Patient Medication Summary Completed 06/21/2016 Visit Plan: No pulseox last week to comp are to today, but she does sound diminished today Studies as above ordered Continue cefdinir until results received Increase albuterol treatments to q4-6hrs PRN Continue supportive care 02/23/2016 Appointment: Janiya Gregorio [address] [place] [address] ACUTE ILLNESS 02/23/2016 Patient Education: Patient Medication Summary Completed 02/23/2016 Care Plan: CHEST X-RAY 2VW FRONTAL&LATL LOINC : 50772-4 Pending 02/23/2016 Visit Plan: Saline nasal flushes prn. Ty lenol/Motrin prn headache. Notify if persists/symptoms worsening. 02/16/2016 Appointment: Jessica Gee WPtel: [address] [place] [address] ACUTE ILLNESS 02/16/2016 Patient Education: Patient Medication Summary Completed 02/16/2016 Visit Plan: Discussed labs Continue Topr ol at 200 mg PO daily Increase Aciphex to BID Notify if increase of Aciphex does not give relief. Repeat PT/INR in 2 weeks. 02/11/2015 Appointment: Suki Barahona WPtel: [address] [place], [place] [address] 02/10 confirmed ~sl FOLLOW UP 02/11/2015 Patient Education: Patient Medication Summary Completed 02/11/2015 Patient Education: Patient Medication Summary Completed 02/06/2015 Care Plan: POC PROTIME/INR LOINC : 85122 -6 Pending 02/06/2015 Visit Plan: Increase Toprol XL 200 mg to one full tablet daily (is currently taking only 1/2 tablet) To for EKG today Monitor daily BP Notify of any changes- increased numbness, weakness, headache etc. 01/28/2015 Appointment: Suki Barahona WPtel: [phone] ACUTE ILLNESS 01/28/2015 Patient Education: Patient Medication Summary Completed 01/28/2015 Visit Plan: ERx Amoxicillin and Flonase Nasal saline, humidified air Facial heat or cold packs for comfort Increase fluids/rest Discussed s/s of worsening, go to over weekend if these occur. 12/06/2014 Appointment: Kaitlynn Mosley WPtel: [address] [place] [address] ACUTE ILLNESS 12/06/2014 Patient Education: Patient Medication Summary Completed 12/06/2014 Appointment: Kaitlynn Mosley WPtel: [address] [place] [address] ACUTE ILLNESS 08/09/2014 Patient Education: Patient Medication Summary Completed 08/09/2014 Appointment: Suki Barahona WPtel: [address] [place] [address] ACUTE ILLNESS 06/24/2014 Patient Education: Patient Medication Summary Completed 06/24/2014 Appointment: Suki Barahona WPtel: [address] [place] [address] ACUTE ILLNESS 03/22/2014 Patient Education: Patient Medication Summary Completed 03/22/2014 Patient Education: [employer] - Antibi otics, Analgesics 18+, Oral Contraceptives F 18+ Completed 03/22/2014 Appointment: Suki Barahona WPtel: [address] [place] [address] FOLLOW UP 03/05/2014 Patient Education: Patient Medication Summary Completed 03/05/2014 Visit Plan: Saline nasal flushes prn. Ty lenol/Motrin prn headache. Notify if persists/symptoms worsening. Restart flonase 01/16/2014 Appointment: Jessica Gee WPtel: [address] [place], [place] [id number] ACUTE ILLNESS 01/16/2014 Patient Education: Patient Medication Summary Completed 01/16/2014 Appointment: Jessica Gee WPtel: [address] [place], [place] [phone] UA 10/19/2013 Patient Education: Patient Medication Summary Completed 10/19/2013 Appointment: Jessica Gee WPtel: [address] [place] [address] 08/08 patient canceled appt and said will call back to [facility] FOLLOW UP 08/09/2013 Visit Plan: Increase Coumadin to 6mg M-F and stay on 5mg Sat, Sun Add lipids to labs Check PT/INR in 3wks Continue metfromin at current dose and accuchecks 05/10/2013 Appointment: Jessica Gee WPtel: [address] [place] [address] 05/09 FOLLOW UP 05/10/2013 Patient Education: Patient Medication Summary Completed 05/10/2013 Visit Plan: Saline nasal flushes prn. Ty lenol/Motrin prn headache. Notify if persists/symptoms worsening. 04/17/2013 Appointment: Jessica Gee WPtel: [address] [place] [address] ACUTE ILLNESS 04/17/2013 Patient Education: Patient Medication Summary Completed 04/17/2013 Appointment: Suki Barahona WPtel: [address] [place], [place] [id number] FOLLOW UP 03/05/2013 Patient Education: Patient Medication Summary Completed 03/05/2013 Appointment: Suki Barahona WPtel: [address] [place], [place] [phone] FOLLOW UP 03/02/2013 Patient Education: Patient Medication Summary Completed 03/02/2013 Appointment: Suki Barahona WPtel: [address] [place] [address] ACUTE ILLNESS 03/01/2013 Patient Education: Patient Medication Summary Completed 03/01/2013 Visit Plan: Continue metformin and accuc hecks Add fish oil 1gram daily Check HbA1C, CMP in 2mos then fwup 02/22/2013 Appointment: Jessica Gee WPtel: [address] [place], [place] [phone] 02/21 vm FOLLOW UP 02/22/2013 Patient Education: Patient Medication Summary Completed 02/22/2013 Visit Plan: Start Metformin Start Accuch ecks daily alternating times Will go for dilated eye exam once BS more stabilized Diabetic foot care discussed Diabetic diet info given 01/11/2013 Appointment: Jessica Gee WPtel: [address] [place], [place] [address] FOLLOW UP 01/11/2013 Patient Education: Patient Medication Summary Completed 01/11/2013 Appointment: Kaitlynn Mosley WPtel: [address] [place] [address] ACUTE ILLNESS 11/03/2012 Patient Education: Patient Medication Summary Completed 11/03/2012 Appointment: Xiomara Rodriguez WPtel: [address] [place] [address] ACUTE ILLNESS 05/04/2012 Patient Education: Patient Medication Summary Completed 05/04/2012 Visit Plan: pt reports that she always g ets yeast infections. Discussed that the antifungal can cause problems/increased bleeding with Coumdin. Pt. will start with probiotics and only take the Diflucan if needed. Cefdinir. 10/11/2011 Appointment: Xiomara Rodriguez WPtel: [address] [place], [place] [phone] ACUTE ILLNESS 10/11/2011 Patient Education: Patient Medication Summary Completed 10/11/2011 Appointment: Xiomara Rodriguez WPtel: [address] [place], [place] [phone] FOLLOW UP 06/23/2011 Patient Education: Patient Medication Summary Completed 06/23/2011 Visit Plan: Will prescribe an antibiotic and diflucan. Pt. reports that she frequently gets yeast infection. Discussed that she will notify if any symptoms persist. Pt. reports that her relatives have recently been hospitalized with pneumonia. 06/14/2011 Appointment: Xiomara Rodriguez WPtel: [address] [place], [place] [phone] ACUTE ILLNESS 06/14/2011 Patient Education: Patient Medication Summary Completed 06/14/2011 Visit Plan: sample of veramyst. Cefuroxi me axetil. Pt. will focus on hydration and rest. Discussed comfort measures and monitoring for worsening symptoms. 12/02/2010 Appointment: Xiomara Rodriguez WPtel: [address] [place] [address] ACUTE ILLNESS 12/02/2010 Patient Education: Patient Medication Summary Completed 12/02/2010 Visit Plan: Change HCTZ to spironolacton e will start zocor in 1 mo BP med in 1mo 11/12/2010 Appointment: Jessica Gee WPtel: [address] [place] [address] FOLLOW UP 11/12/2010 Patient Education: Patient Medication Summary Completed 11/12/2010 Appointment: Jessica Gee WPtel: [address] [place] [address] BP CHECK 10/26/2010 Patient Education: Patient Medication Summary Completed 10/26/2010 Visit Plan: Continue Toprol at bedtime A dd HCTZ in AM BP check in 2wks Fasting lab with next PT/INR 10/13/2010 Appointment: Jessica Gee WPtel: [address] [place] [address] FOLLOW UP 10/13/2010 Patient Education: Patient Medication Summary Completed 10/13/2010 Visit Plan: Cont abx. Fwup with surgery as scheduled 06/24/2010 Appointment: Jessica Gee WPtel: [address] [place] [address] Hospital Follow Up 06/24/2010 Patient Education: Patient Medication Summary Completed 06/24/2010 Appointment: Jessica Gee WPtel: [address] [place], [place] [phone] [facility] Follow Up 06/22/2010 Visit Plan: pt [...] to subside. 06/08/2010 Appointment: Xiomara Rodriguez WPtel: [address] [place] [address] ACUTE ILLNESS 06/08/2010 Patient Education: Patient Medication Summary Completed 06/08/2010 Appointment: Xiomara Rodriguez WPtel: [address] [place] [address] FOLLOW UP 06/01/2010 Appointment: Jessica Gee WPtel: [address] [place] [address] UA 05/29/2010 Patient Education: Patient Medication Summary Completed 05/29/2010 Appointment: Xiomara Rodriguez WPtel: [address] [place] [address] ACUTE ILLNESS 05/20/2010 Patient Education: Patient Medication Summary Completed 05/20/2010 Appointment: Jessica Gee WPtel: [address] [place] [address] BP CHECK 05/13/2010 Patient Education: Patient Medication Summary Completed 05/13/2010 Visit Plan: Increase Lisinopril hct to 2 0/12.5mg q AM Use atarax prn and routinely at bedtime and Medrol dose pack BP check in 3wks Pt defers stress test at this time 04/30/2010 Appointment: Jessica Gee WPtel: [address] [place] [address] ACUTE ILLNESS 04/30/2010 Patient Education: Patient Medication Summary Completed 04/30/2010 Appointment: Jessica Gee WPtel: [address] [place] [address] BP CHECK 02/27/2010 Patient Education: Patient Medication Summary Completed 02/27/2010 Visit Plan: Cont Toprol Add Altace 10mg QD Cont Wellbutrin Will likely add SSRI after BP stable BP check in 2wks 01/22/2010 Appointment: Jessica Gee WPtel: [phone] [id number] AC[place] ILLNESS 01/22/2010 Patient Education: Patient Medication Summary Completed 01/22/2010 Referral: Rupa Raines WPtel: [address] [id number] [place] Referral Completed Referral: Neymar Alberts WPtel: [phone] [facility] [place] Referral Initiated Instructions Comment . Tick [...]
--- OUTSIDE RECORDS SUMMARY | 2019-09-10 03:00 | XMS REPORT | CCD ---
Author Author Nava Gee D.O. Organization [facility] Address [address] [place] [address] Phone Care Team Providers Care Compatibility Test Engineer Name Role Phone Jessica Gee D.O., PP Unavailable CCM Unavailable Summary Purpose Interface Exchange Insurance Providers Payer name Policy type / Coverage type Covered libertarian ID Effective Begin Date Effective End Date Blue Cross Blue Shield Blue Cross/Blue Shield [id number] Unknown Family History Family History data not found Social History Social History Element Codes Description Effective Dates Tobacco history SNOMED CT: 304057034 Never smoker 10/13/2010 Allergies, Adverse Reactions, Alerts [...] findings ICD-9: V70.0 ICD-10: Z00.00 12/16/2017 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 ICD-9: V58.6 1 [...] Start Date Stop Date Status Fill Instructions pravastatin 40 mg tablet RxNorm: 859427 TAKE 1 TABLET BY MOUTH ONCE DAILY 07/10/2019 10/07/2019 Active Toprol XL 200 mg tablet,extended release RxNorm: 282189 1 Table t(s) Oral QD 06/15/2019 12/11/2019 Active Toprol XL 200 mg tablet,extended release RxNorm: 701922 1 Table t(s) Oral QD 06/13/2019 06/14/2019 Inactive warfarin 6 mg tablet RxNorm: 764426 1 Tablet(s) Oral QD 06/04/2019 No Stop Date Active metformin ER 500 mg tablet,extended release 24 hr RxNorm: 86 0975 TAKE 1 TABLET BY MOUTH TWICE DAILY 05/29/2019 07/27/2019 Active Jardiance 25 mg tablet RxNorm: 9224854 1 Tablet(s) Oral QD 05/09/19 20 05/23/2019 Inactive Jardiance 25 mg tablet RxNorm: 5841841 1 Tablet(s) Oral QAM 020 09/06/2019 Active Jardiance 10 mg tablet RxNorm: 2770470 1 Tablet(s) Oral QD 05/09/19 No Stop Date Active warfarin 1 mg tablet RxNorm: 616427 1 Tablet(s) Oral on Mon and with 6mg tablet (total 7mg) 05/09/2019 No Stop Date Active warfarin 6 mg tablet RxNorm: 296821 1 Tablet(s) Oral QD then on Mon/ take along with Warfarin 1mg (7mg) 05/09/2019 06/03/2019 Inactive warfarin 5 mg tablet RxNorm: 229602 1 Tablet(s) Oral QD 05/02/2019 Inactive warfarin 1 mg tablet RxNorm: 125206 TAKE 1 TABLET BY [facility] ONCE DAILY. TAKE AN ADDITIONAL TABLET ON TUESDAY AND Tuesday05/02/2019 05/08/2019 Inactiv e Coumadin 5 mg tablet RxNorm: 091649 TAKE 1 TABLET BY MOUTH ONCE DAILY 04/02/2019 05/02/2019 Inactive celecoxib 200 mg capsule RxNorm: 189344 TAKE 1 CAPSULE BY MOUTH TWICE DAILY 03/20/2019 06/17/2019 Inactive metformin ER 500 mg tablet,extended release 24 hr RxNorm: 86 0975 TAKE 1 TABLET BY MOUTH TWICE DAILY 03/19/2019 05/17/2019 Inactive pravastatin 40 mg tablet RxNorm: 999217 TAKE 1 TABLET BY MOUTH ONCE DAILY 03/19/2019 06/16/2019 Inactive Coumadin 5 mg tablet RxNorm: 989184 TAKE 1 TABLET BY MOUTH ONCE DAILY 02/28/2019 04/01/2019 Inactive warfarin 1 mg tablet RxNorm: 409729 TAKE 1 TABLET BY [facility] ONCE DAILY. TAKE AN ADDITIONAL TABLET ON TUESDAY AND Tuesday02/28/2019 05/01/2019 Inactiv e omeprazole 40 mg capsule,delayed release RxNorm: 331705 TAKE 1 CAPSULE BY MOUTH TWICE DAILY 02/19/2019 No Stop Date Active metformin ER 500 mg tablet,extended release 24 hr RxNorm: 86 0975 1 Tablet(s) PO BID 02/19/2019 03/18/2019 Inactive metformin ER 500 mg tablet,extended release 24 hr RxNorm: 86 0975 1 Tablet(s) PO BID 01/15/2019 02/13/2019 Inactive alprazolam 0.25 mg tablet RxNorm: 465295 1 Tablet(s) Oral prior to flight 01/03/2019 No Stop Date Active omeprazole 40 mg capsule,delayed release RxNorm: 581829 TAKE 1 CAPSULE BY MOUTH TWICE DAILY 12/20/2018 02/18/2019 Inactive metformin ER 500 mg tablet,extended release 24 hr RxNorm: 86 0975 1 Tablet(s) PO BID 12/11/2018 01/09/2019 Inactive pravastatin 40 mg tablet RxNorm: 997481 TAKE 1 TABLET BY MOUTH ONCE DAILY 12/11/2018 03/18/2019 Inactive Coumadin 5 mg tablet RxNorm: 009248 1 Tablet(s) PO QD 11/27/201809/2018 Inactive metformin ER 500 mg tablet,extended release 24 hr RxNorm: 86 0975 1 Tablet(s) PO BID 10/02/2018 11/30/2018 Inactive warfarin 1 mg tablet RxNorm: 984505 TAKE 1 TABLET BY [facility] ONCE DAILY. TAKE AN ADDITIONAL TABLET ON TUESDAY AND Tuesday10/02/2018 02/27/2019 Inactiv e Bactrim DS 800 mg-160 mg tablet RxNorm: 908344 1 Tablet(s) PO BID 0 09/27/2018 10/03/2018 Inactive warfarin 5 mg tablet RxNorm: 980237 1 Tablet(s) PO QD 09/27/201810/2018 Inactive Toprol XL 200 mg tablet,extended release RxNorm: 729185 1 Table t(s) PO QD 09/18/2018 06/12/2019 Inactive omeprazole 40 mg capsule,delayed release RxNorm: 313173 TAKE 1 CAPSULE BY MOUTH TWICE DAILY 09/11/2018 12/19/2018 Inactive Coumadin 5 mg tablet RxNorm: 185486 1 Tablet(s) PO QD 08/21/201811/2018 Inactive metformin ER 500 mg tablet,extended release 24 hr RxNorm: 86 0975 1 Tablet(s) PO BID 07/31/2018 09/28/2018 Inactive omeprazole 40 mg capsule,delayed release RxNorm: 599950 TAKE 1 CAPSULE BY MOUTH TWICE DAILY 06/27/2018 09/10/2018 Inactive metformin ER 500 mg tablet,extended release 24 hr RxNorm: 86 0975 Tablet(s) 1 Tablet(s) PO BID 06/27/2018 07/31/2018 Inactive Toprol XL 200 mg tablet,extended release RxNorm: 699184 1 Table t(s) PO QD 06/14/2018 09/17/2018 Inactive Coumadin 5 mg tablet RxNorm: 572551 1 Tablet(s) PO QD 06/14/201804/2018 Inactive metformin ER 500 mg tablet,extended release 24 hr RxNorm: 86 0975 Tablet(s) 1 Tablet(s) PO BID 05/22/2018 06/26/2018 Inactive Coumadin 5 mg tablet RxNorm: 814416 TAKE 1 TABLET BY MOUTH ONCE DAILY 05/11/2018 06/14/2018 Inactive Lovenox 40 mg/0.4 mL subcutaneous syringe RxNorm: 198493 40 Mil ligram(s) SQ QD 05/05/2018 09/26/2018 Inactive amitriptyline 25 mg tablet RxNorm: 845347 1 Tablet(s) PO QHS fo r sleep/HAs 04/24/2018 10/20/2018 Inactive [email or web address] Ultra Test strips RxNorm: Test blood sugar sigrid y (Dx:E11.65) 04/24/2018 No Stop Date Active celecoxib 200 mg capsule RxNorm: 113152 1 Capsule(s) PO BID 019 10/20/2018 Inactive Celebrex 200 mg capsule RxNorm: 763948 TAKE 1 CAPSULE BY MOUTH ONCE DAILY 04/19/2018 04/23/2018 Inactive warfarin 1 mg tablet RxNorm: 311451 1 Tablet(s) PO QD a nd additional tablet on Mon & Thurs 04/14/2018 10/01/2018 Inactive Toprol XL 200 mg tablet,extended release RxNorm: 255451 TAKE 1 TABLET BY MOUTH ONCE DAILY 04/11/2018 06/14/2018 Inactive metformin ER 500 mg tablet,extended release 24 hr RxNorm: 86 0975 Tablet(s) 1 Tablet(s) PO BID 03/17/2018 05/21/2018 Inactive Coumadin 5 mg tablet RxNorm: 827561 TAKE 1 TABLET BY MOUTH ONCE DAILY 03/15/2018 05/10/2018 Inactive Lovenox 40 mg/0.4 mL subcutaneous syringe RxNorm: 506602 40 Mil ligram(s) SQ QD 01/27/2018 04/11/2018 Inactive omeprazole 40 mg capsule,delayed release RxNorm: 245547 TAKE 1 CAPSULE BY MOUTH TWICE DAILY 01/23/2018 06/26/2018 Inactive pravastatin 40 mg tablet RxNorm: 646063 TAKE 1 TABLET BY MOUTH ONCE DAILY 01/23/2018 12/10/2018 Inactive metformin ER 500 mg tablet,extended release 24 hr RxNorm: 86 0975 Tablet(s) 1 Tablet(s) PO BID 01/16/2018 01/15/2018 Inactive Toprol XL 200 mg tablet,extended release RxNorm: 528079 TAKE 1 TABLET BY MOUTH ONCE DAILY 01/16/2018 04/10/2018 Inactive Coumadin 5 mg tablet RxNorm: 443823 TAKE 1 TABLET BY MOUTH ONCE DAILY 01/06/2018 03/14/2018 Inactive Celebrex 200 mg capsule RxNorm: 030596 1 Capsule(s) PO BID 12/28/19 18 03/26/2018 Inactive metformin ER 500 mg tablet,extended release 24 hr RxNorm: 86 0975 1 Tablet(s) PO BID Needs APPT 12/21/2017 01/16/2018 Inactive omeprazole 40 mg capsule,delayed release RxNorm: 700119 TAKE 1 CAPSULE BY MOUTH TWICE DAILY 11/02/2017 01/22/2018 Inactive Celebrex 200 mg capsule RxNorm: 565943 1 Capsule(s) PO QD 11/01/2017 12/26/2017 Inactive Coumadin 5 mg tablet RxNorm: 536426 Tablet(s) TAKE ONE TABLET BY MOUTH ONCE DAILY. 10/31/2017 12/29/2017 Inactive warfarin 1 mg tablet RxNorm: 171531 1 Tablet(s) PO QD 10/31/201703/22 Inactive spironolactone 25 mg tablet RxNorm: 567787 TAKE TWO TAB LETS BY MOUTH IN THE MORNING 10/31/2017 04/23/2018 Inactive metformin ER 500 mg tablet,extended release 24 hr RxNorm: 86 0975 1 Tablet(s) PO BID Needs updated fasting lab 10/20/2017 12/21/2017 Inactive Medrol (Dale) 4 mg tablets in a dose pack RxNorm: 934718 Tablet(s) PO take as directed 10/12/2017 12/15/2017 Inactive Celebrex 200 mg capsule RxNorm: 634460 1 Capsule(s) PO QD 10/03/2017 10/02/2017 Inactive spironolactone 25 mg tablet RxNorm: 303611 TAKE TWO TAB LETS BY MOUTH IN THE MORNING 09/19/2017 10/30/2017 Inactive Zithromax Z-Dale 250 mg tablet RxNorm: 859287 Tablet(s) PO take as directed 09/16/2017 10/11/2017 Inactive Medrol (Dale) 4 mg tablets in a dose pack RxNorm: 466361 Tablet(s) take as directed PO 09/16/2017 10/11/2017 Inactive doxycycline hyclate 100 mg tablet RxNorm: 5533357 1 Tablet(s) PO BI D 09/16/2017 09/15/2017 Inactive doxycycline hyclate 100 mg tablet RxNorm: 6482963 1 Tablet(s) PO BI D 09/16/2017 09/25/2017 Inactive Tessalon Perles 100 mg capsule RxNorm: 897367 1 Capsule(s) PO T ID as needed 09/16/2017 12/15/2017 Inactive warfarin 1 mg tablet RxNorm: 827165 1 Tablet(s) PO QD 09/06/201710/19 Inactive Coumadin 5 mg tablet RxNorm: 783974 Tablet(s) TAKE ONE TABLET BY MOUTH ONCE DAILY. 09/06/2017 10/31/2017 Inactive Toprol XL 200 mg tablet,extended release RxNorm: 802064 1 Table t(s) PO QD 2017 01/02/2018 Inactive warfarin 1 mg tablet RxNorm: 567113 1 Tablet(s) PO QD DUE FOR L ABS AUGUST 12 08/29/2017 09/06/2017 Inactive Coumadin 5 mg tablet RxNorm: 355836 Tablet(s) TAKE ONE TABLET BY MOUTH ONCE DAILY. DUE FOR PT/INR AUGUST 12 08/29/2017 09/06/2017 Inactive Coumadin 5 mg tablet RxNorm: 273029 Tablet(s) TAKE ONE TABLET BY MOUTH ONCE DAILY. DUE FOR PT/INR AUGUST 12 08/01/2017 08/29/2017 Inactive warfarin 1 mg tablet RxNorm: 261468 1 Tablet(s) PO QD DUE FOR L ABS AUGUST 12 08/01/2017 08/29/2017 Inactive scopolamine 1 mg over 3 days transdermal patch RxNorm: 46492 2 1 TD take off in 72 hours. 08/01/2017 12/26/2017 Inactive pravastatin 40 mg tablet RxNorm: 343446 Tablet(s) TAKE ONE TABLET BY MOUTH ONCE DAILY 07/07/2017 01/02/2018 Inactive Coumadin 5 mg tablet RxNorm: 016071 Tablet(s) TAKE ONE TABLET BY MOUTH ONCE DAILY. DUE FOR PT/INR. 06/29/2017 08/01/2017 Inactive warfarin 1 mg tablet RxNorm: 584292 1 Tablet(s) PO QD 06/29/201707/19 Inactive Coumadin 5 mg tablet RxNorm: 044683 TAKE ONE TABLET BY MOUTH ONCE DAILY. DUE FOR PT/INR. 05/30/2017 06/29/2017 Inactive omeprazole 40 mg capsule,delayed release RxNorm: 840009 1 Capsu le(s) PO BID 05/30/2017 08/27/2017 Inactive Celebrex 200 mg capsule RxNorm: 582255 1 Capsule(s) PO QD 05/23/2017 10/03/2017 Inactive metformin ER 500 mg tablet,extended release 24 hr RxNorm: 86 0975 TAKE ONE TABLET BY MOUTH TWICE DAILY 05/20/2017 10/20/2017 Inactive Coumadin 5 mg tablet RxNorm: 317236 1 Tablet(s) PO QD due for PT/IN R 04/25/2017 05/24/2017 Inactive warfarin 1 mg tablet RxNorm: 578546 1 Tablet(s) PO QD due for l abs this week 03/16/2017 06/29/2017 Inactive omeprazole 40 mg capsule,delayed release RxNorm: 593718 1 Capsu le(s) PO BID 03/16/2017 05/30/2017 Inactive Celebrex 200 mg capsule RxNorm: 604491 1 Capsule(s) PO BID as n eeded for pain 03/16/2017 05/22/2017 Inactive Coumadin 5 mg tablet RxNorm: 214586 1 Tablet(s) PO QD due for PT/IN R 03/16/2017 04/14/2017 Inactive Celebrex 200 mg capsule RxNorm: 554077 1 Capsule(s) PO BID as n eeded for pain 02/09/2017 03/15/2017 Inactive Toprol XL 200 mg tablet,extended release RxNorm: 844105 1 Table t(s) PO QD 02/08/2017 2017 Inactive Celebrex 200 mg capsule RxNorm: 475289 1 Capsule(s) PO BID as n eeded for pain 01/14/2017 02/08/2017 Inactive omeprazole 40 mg capsule,delayed release RxNorm: 045941 1 Capsu le(s) PO BID 01/12/2017 03/16/2017 Inactive Coumadin 5 mg tablet RxNorm: 279187 1 Tablet(s) PO QD 12/15/201602/19 Inactive warfarin 1 mg tablet RxNorm: 114728 1 Tablet(s) PO QD 12/15/201602/19 Inactive metformin ER 500 mg tablet,extended release 24 hr RxNorm: 86 0975 Tablet(s) TAKE ONE TABLET BY MOUTH TWICE DAILY 11/29/2016 02/26/2017 Inactive omeprazole 40 mg capsule,delayed release RxNorm: 595440 1 Capsu le(s) PO BID 11/29/2016 12/28/2016 Inactive pravastatin 40 mg tablet RxNorm: 873174 Tablet(s) TAKE ONE TABLET BY MOUTH ONCE DAILY 11/19/2016 07/07/2017 Inactive omeprazole 40 mg capsule,delayed release RxNorm: 953944 1 Capsu le(s) PO BID 10/19/2016 10/18/2016 Inactive omeprazole 40 mg capsule,delayed release RxNorm: 719779 1 Capsu le(s) PO BID 10/19/2016 11/17/2016 Inactive pantoprazole 40 mg tablet,delayed release RxNorm: 085092 1 Tabl et(s) PO QD 09/30/2016 10/18/2016 Inactive pantoprazole 40 mg tablet,delayed release RxNorm: 057593 1 Tabl et(s) PO QD 09/30/2016 09/29/2016 Inactive Zofran ODT 4 mg disintegrating tablet RxNorm: 303094 1 Tablet(s) PO Q4H as needed for nausea 09/15/2016 01/02/2017 Inactive Coumadin 5 mg tablet RxNorm: 131326 1 Tablet(s) PO QD 09/14/201611/20 Inactive warfarin 1 mg tablet RxNorm: 558395 1 Tablet(s) PO QD 09/14/201611/20 Inactive spironolactone 25 mg tablet RxNorm: 413605 2 Tablet(s) PO QAM 09/0301/02/2017 Inactive Wellbutrin XL 300 mg 24 hr tablet, extended release RxNorm: 921334 TAKE ONE TABLET BY MOUTH ONCE DAILY 08/26/2016 12/26/2017 Inactive Toprol XL 200 mg tablet,extended release RxNorm: 353772 1 Table t(s) PO QD 07/28/2016 02/08/2017 Inactive metformin ER 500 mg tablet,extended release 24 hr RxNorm: 86 0975 Tablet(s) TAKE ONE TABLET BY MOUTH TWICE DAILY 07/15/2016 11/29/2016 Inactive cyclobenzaprine 5 mg tablet RxNorm: 964562 1 Tablet(s) PO QHS f or spasm 07/08/2016 08/06/2016 Inactive Celebrex 200 mg capsule RxNorm: 1 Capsule(s) PO BID 07/08/2016 Inactive spironolactone 25 mg tablet RxNorm: 032745 1 Tablet(s) PO QAM 07/0609/02/2016 Inactive Wellbutrin XL 300 mg 24 hr tablet, extended release RxNorm: 517476 TAKE ONE TABLET BY MOUTH ONCE DAILY 06/15/2016 07/14/2016 Inactive Coumadin 5 mg tablet RxNorm: 597400 1 Tablet(s) PO QD 06/08/201608/20 Inactive warfarin 1 mg tablet RxNorm: 023540 1 Tablet(s) PO QD 06/08/201608/20 Inactive Toprol XL 200 mg tablet,extended release RxNorm: 245434 TAKE ONE TABLET BY MOUTH ONCE DAILY 04/26/2016 07/28/2016 Inactive pravastatin 40 mg tablet RxNorm: 702814 TAKE ONE TABLET BY MOUT H ONCE DAILY 04/19/2016 10/15/2016 Inactive Coumadin 5 mg tablet RxNorm: 701859 1 Tablet(s) PO QD 03/09/201605/19 Inactive warfarin 1 mg tablet RxNorm: 065393 1 Tablet(s) PO QD 03/09/201605/19 Inactive metformin ER 500 mg tablet,extended release 24 hr RxNorm: 86 0975 TAKE ONE TABLET BY MOUTH TWICE DAILY 02/25/2016 07/15/2016 Inactive spironolactone 25 mg tablet RxNorm: 816957 TAKE ONE TAB LET BY MOUTH ONCE DAILY IN THE MORNING 02/25/2016 07/06/2016 Inactive prednisone 20 mg tablet RxNorm: 213535 1 Tablet(s) PO QAM 02/16/2016 02/20/2016 Inactive cefdinir 300 mg capsule RxNorm: 331641 2 Capsule(s) PO QD 02/16/2016 02/25/2016 Inactive Toprol XL 200 mg tablet,extended release RxNorm: 842030 TAKE ONE TABLET BY MOUTH ONCE DAILY 01/26/2016 04/24/2016 Inactive Aciphex 20 mg tablet,delayed release RxNorm: 393888 1 Tablet(s) PO BID 12/24/2015 09/29/2016 Inactive Omeprazole and Pepci d have not helped. Coumadin 5 mg tablet RxNorm: 933447 1 Tablet(s) PO QD 12/10/201502/19 Inactive Coumadin 5 mg tablet RxNorm: 749204 1 Tablet(s) PO QD 12/08/201511/20 Inactive Toprol XL 200 mg tablet,extended release RxNorm: 106727 TAKE ONE TABLET BY MOUTH ONCE DAILY 11/20/2015 01/18/2016 Inactive warfarin 1 mg tablet RxNorm: 097546 1 Tablet(s) PO QD 11/03/201502/19 Inactive pravastatin 40 mg tablet RxNorm: 630457 Tablet(s) TAKE ONE TABLET BY MOUTH ONCE DAILY 10/20/2015 01/17/2016 Inactive pravastatin 40 mg tablet RxNorm: 272516 TAKE ONE TABLET BY MOUT H ONCE DAILY 10/20/2015 10/19/2015 Inactive metformin ER 500 mg tablet,extended release 24 hr RxNorm: 86 0975 TAKE ONE TABLET BY MOUTH TWICE DAILY 10/03/2015 12/31/2015 Inactive Toprol XL 200 mg tablet,extended release RxNorm: 463094 TAKE ONE TABLET BY MOUTH ONCE DAILY 09/17/2015 11/15/2015 Inactive Coumadin 5 mg tablet RxNorm: 932136 1 Tablet(s) PO QD 09/02/201511/19 Inactive Wellbutrin XL 300 mg 24 hr tablet, extended release RxNorm: 393902 TAKE ONE TABLET BY MOUTH ONCE DAILY 08/01/2015 10/29/2015 Inactive Pepcid 20 mg tablet RxNorm: 214676 1 Tablet(s) PO BID as needed 05/24/2017 Inactive warfarin 1 mg tablet RxNorm: 630542 TAKE ONE TABLET BY MOUTH ON CE DAILY 07/08/2015 11/03/2015 Inactive pravastatin 40 mg tablet RxNorm: 120665 1 Tablet(s) PO QD 07/08/2015 10/05/2015 Inactive spironolactone 25 mg tablet RxNorm: 568827 TAKE ONE TAB LET BY MOUTH ONCE DAILY IN THE MORNING 06/13/2015 09/10/2015 Inactive Coumadin 5 mg tablet RxNorm: 571053 1 Tablet(s) PO QD 06/05/201508/19 Inactive Wellbutrin XL 300 mg 24 hr tablet, extended release RxNorm: 099137 TAKE ONE TABLET BY MOUTH ONCE DAILY 05/16/2015 09/26/2018 Inactive Wellbutrin XL 300 mg 24 hr tablet, extended release RxNorm: 721200 TAKE ONE TABLET BY MOUTH ONCE DAILY 05/16/2015 06/14/2015 Inactive metformin ER 500 mg tablet,extended release 24 hr RxNorm: 86 0975 TAKE ONE TABLET BY MOUTH TWICE DAILY 05/16/2015 08/13/2015 Inactive pravastatin 40 mg tablet RxNorm: 014677 1 Tablet(s) PO QD 04/10/2015 07/07/2015 Inactive Aciphex 20 mg tablet,delayed release RxNorm: 022561 1 Tablet(s) PO BID 03/07/2015 09/02/2015 Inactive Omeprazole and Pepci d have not helped. Toprol XL 200 mg tablet,extended release RxNorm: 193568 1 Table t(s) PO QD 03/05/2015 08/31/2015 Inactive Aciphex 20 mg tablet,delayed release RxNorm: 966726 1 Tablet(s) PO QD 03/04/2015 03/06/2015 Inactive Omeprazole and Pepci d have not helped. Coumadin 5 mg tablet RxNorm: 458302 1 Tablet(s) PO QD 02/28/201511/2015 Inactive Aciphex 20 mg tablet,delayed release RxNorm: 124872 1 Tablet(s) PO BID 02/11/2015 03/03/2015 Inactive Omeprazole and Pepci d have not helped. metformin ER 500 mg tablet,extended release 24 hr RxNorm: 86 0975 1 Tablet(s) PO BID 01/10/2015 04/09/2015 Inactive pravastatin 40 mg tablet RxNorm: 159623 1 Tablet(s) PO QD 01/06/2015 04/05/2015 Inactive Wellbutrin XL 300 mg 24 hr tablet, extended release RxNorm: 631683 TAKE ONE TABLET BY MOUTH ONCE DAILY 12/19/2014 02/16/2015 Inactive amoxicillin 500 mg capsule RxNorm: 294407 2 Capsule(s) PO BID 12/0612/15/2014 Inactive Flonase 50 mcg/actuation nasal spray,suspension RxNorm: 8963 23 2 Girard each nostril NASAL QD 12/06/2014 03/05/2015 Inactive Coumadin 5 mg tablet RxNorm: 516305 1 Tablet(s) PO QD 11/28/201410/2014 Inactive spironolactone 25 mg tablet RxNorm: 377590 1 Tablet(s) PO QAM 11/2602/23/2015 Inactive Coumadin 5 mg tablet RxNorm: 518526 1 Tablet(s) PO QD 1 Tablet(s) PO QD- NEED TO CHECK LABS 10/30/2014 11/28/2014 Inactive warfarin 1 mg tablet RxNorm: 912580 1 Tablet(s) PO QD 10/30/201409/2015 Inactive Aciphex 20 mg tablet,delayed release RxNorm: 269999 1 Tablet(s) PO QD 10/02/2014 02/10/2015 Inactive Omeprazole and Pepci d have not helped. Coumadin 5 mg tablet RxNorm: 204812 1 Tablet(s) PO QD 1 Tablet(s) PO QD- NEED TO CHECK LABS 09/30/2014 10/30/2014 Inactive pravastatin 40 mg tablet RxNorm: 625429 1 Tablet(s) PO QD 09/25/2014 01/06/2015 Inactive warfarin 1 mg tablet RxNorm: 838709 1 Tablet(s) PO QD T [place] ONE TABLET BY MOUTH DIRECTED ON MON AND THUR 08/28/2014 10/29/2014 Inactive metformin ER 500 mg tablet,extended release 24 hr RxNorm: 86 0975 1 Tablet(s) PO BID 08/28/2014 01/10/2015 Inactive amoxicillin 875 mg tablet RxNorm: 771591 1 Tablet(s) PO BID 015 08/18/2014 Inactive Toprol XL 200 mg tablet,extended release RxNorm: 031392 TAKE ONE TABLET BY MOUTH ONCE DAILY 07/22/2014 03/05/2015 Inactive Coumadin 5 mg tablet RxNorm: 773169 1 Tablet(s) PO QD 07/01/201409/18 Inactive amoxicillin 875 mg tablet RxNorm: 335643 1 Tablet(s) PO BID 015 06/30/2014 Inactive pravastatin 40 mg tablet RxNorm: 073072 1 Tablet(s) PO QD needs fasting labs 06/19/2014 09/25/2014 Inactive Coumadin 5 mg tablet RxNorm: 898376 1 Tablet(s) PO QD 1 Tablet(s) PO QD TAKE ONE TABLET BY MOUTH ONCE DAILY-need labs 05/28/2014 07/01/2014 Inactive warfarin 1 mg tablet RxNorm: 114795 1 Tablet(s) PO As Directed 05/1908/28/2014 Inactive pravastatin 40 mg tablet RxNorm: 345278 1 Tablet(s) PO QD needs fasting labs 05/14/2014 06/19/2014 Inactive metformin ER 500 mg tablet,extended release 24 hr RxNorm: 86 0975 1 Tablet(s) PO BID 04/25/2014 08/28/2014 Inactive spironolactone 25 mg tablet RxNorm: 870284 1 Tablet(s) PO QAM 04/2511/26/2014 Inactive Coumadin 5 mg tablet RxNorm: 170781 1 Tablet(s) PO QD 1 Tablet(s) PO QD TAKE ONE TABLET BY MOUTH ONCE DAILY 04/23/2014 05/28/2014 Inactive Coumadin 5 mg tablet RxNorm: 514555 1 Tablet(s) PO QD 1 Tablet(s) PO QD TAKE ONE TABLET BY MOUTH ONCE DAILY 03/22/2014 04/20/2014 Inactive Tessalon Perles 100 mg capsule RxNorm: 057920 1 Capsule(s) PO TID 0 03/22/2014 03/28/2014 Inactive cefdinir 300 mg capsule RxNorm: 844908 2 Capsule(s) PO QD 03/22/2014 03/31/2014 Inactive Medrol (Dale) 4 mg tablets in a dose pack RxNorm: 514016 Tablet(s) PO as directed 03/05/2014 08/08/2014 Inactive Coumadin 5 mg tablet RxNorm: 291265 1 Tablet(s) PO QD 1 Tablet(s) PO QD TAKE ONE TABLET BY MOUTH ONCE DAILY 02/19/2014 03/20/2014 Inactive pravastatin 40 mg tablet RxNorm: 716161 1 Tablet(s) PO QD 02/04/2014 05/14/2014 Inactive Coumadin 5 mg tablet RxNorm: 874132 1 Tablet(s) PO QD T [place] ONE TABLET BY MOUTH ONCE DAILY 01/21/2014 02/19/2014 Inactive Medrol (Dale) 4 mg tablets in a dose pack RxNorm: 625284 Tablet(s) PO as directed 01/18/2014 03/04/2014 Inactive cefdinir 300 mg capsule RxNorm: 060327 2 Capsule(s) PO QD 01/16/2014 01/25/2014 Inactive metformin ER 500 mg tablet,extended release 24 hr RxNorm: 86 0975 1 Tablet(s) PO BID 12/17/2013 04/25/2014 Inactive Wellbutrin SR 150 mg tablet,sustained-release RxNorm: 974973 1 Tablet(s) PO BID 11/30/2013 02/27/2014 Inactive spironolactone 25 mg tablet RxNorm: 820428 1 Tablet(s) PO QAM 10/2204/25/2014 Inactive Macrobid 100 mg capsule RxNorm: 833295 1 Capsule(s) PO BID 10/20/19 14 10/25/2013 Inactive Macrobid 100 mg capsule RxNorm: 171919 1 Capsule(s) PO BID 10/20/19 14 10/18/2013 Inactive Toprol XL 100 mg tablet,extended release RxNorm: 064260 1 Table t(s) PO QD 10/15/2013 01/15/2014 Inactive Toprol XL 200 mg tablet,extended release RxNorm: 278728 1 Table t(s) PO QD 10/02/2013 07/22/2014 Inactive Wellbutrin XL 300 mg 24 hr tablet, extended release RxNorm: 851974 1 Tablet(s) PO QD 09/28/2013 12/19/2014 Inactive Aciphex 20 mg tablet,delayed release RxNorm: 837168 1 Tablet(s) PO QD 08/29/2013 10/02/2014 Inactive Omeprazole and Pepci d have not helped. Coumadin 5 mg tablet RxNorm: 821891 1 Tablet(s) PO QD 08/14/201307/20 Inactive Coumadin 5 mg tablet RxNorm: 426127 1 Tablet(s) PO QD 08/14/201305/2013 Inactive pravastatin 40 mg tablet RxNorm: 051548 1 Tablet(s) PO QD 07/24/2013 02/04/2014 Inactive warfarin 1 mg tablet RxNorm: 446939 1 Tablet(s) PO QD T [place] ONE TABLET BY MOUTH DIRECTED ON TUE AND TH07/09/2013 05/28/2014 Inactive warfarin 5 mg tablet RxNorm: 544785 1 Tablet(s) PO QD T [place] ONE TABLET BY MOUTH EVERY DAY 06/08/2013 07/07/2013 Inactive spironolactone 25 mg tablet RxNorm: 423151 1 Tablet(s) PO QAM 05/3010/15/2013 Inactive clindamycin 300 mg capsule RxNorm: 457320 2 Capsule(s) PO TID 04/1704/30/2013 Inactive warfarin 5 mg tablet RxNorm: 531668 1 Tablet(s) PO QD 03/12/201305/20 Inactive azithromycin 250 mg tablet RxNorm: 254109 2 Tablet(s) PO QD 013 03/07/2013 Inactive metformin ER 500 mg tablet,extended release 24 hr RxNorm: 86 0975 1 Tablet(s) PO BID 02/22/2013 12/17/2013 Inactive spironolactone 25 mg tablet RxNorm: 656329 1 Tablet(s) PO QAM 01/2205/30/2013 Inactive metformin ER 500 mg tablet,extended release 24 hr RxNorm: 86 0977 1 Tablet(s) PO BID 01/11/2013 02/21/2013 Inactive pravastatin 40 mg tablet RxNorm: 641267 1 Tablet(s) PO QD 01/11/2013 07/24/2013 Inactive warfarin 5 mg tablet RxNorm: 421175 1 Tablet(s) PO QD 01/04/201302/19 Inactive warfarin 1 mg tablet RxNorm: 599513 Tablet(s) PO TAKE O NE TABLET BY MOUTH DIRECTED ON MON AND THUR 12/14/2012 07/08/2013 Inactive scopolamine 1.5 mg 72 hr Transderm Patch RxNorm: 768945 TD Apply 1 patch behind ear every 72 hours, replace after 3 days. 11/08/2012 01/15/2014 Inacti ve Pepcid 20 mg tablet RxNorm: 108806 1 Tablet(s) PO BID as needed 01/31/2013 Inactive Famvir 500 mg tablet RxNorm: 322265 1 Tablet(s) PO Q8H 11/03/2012 Inactive Aciphex 20 mg tablet,delayed release RxNorm: 157346 1 Tablet(s) PO QD 11/03/2012 05/01/2013 Inactive Omeprazole and Pepci d have not helped. gabapentin 300 mg capsule RxNorm: 710620 Capsule(s) PO TID 11/04/19 13 01/15/2014 Inactive warfarin 5 mg tablet RxNorm: 631975 1 Tablet(s) PO QD 11/02/201212/19 Inactive Wellbutrin XL 300 mg 24 hr tablet, extended release RxNorm: 650026 1 Tablet(s) PO QD 10/17/2012 04/30/2013 Inactive pravastatin 40 mg tablet RxNorm: 356353 Tablet(s) PO TA KE ONE TABLET BY MOUTH EVERY DAY. NEED FASTING LABS 09/18/2012 01/10/2013 Inactive Toprol XL 200 mg tablet,extended release RxNorm: 380401 Tablet(s) PO TAKE ONE TABLET BY MOUTH EVERY DAY 09/08/2012 10/01/2013 Inactive warfarin 5 mg tablet RxNorm: 580390 1 Tablet(s) PO QD 08/31/201210/19 Inactive pravastatin 40 mg tablet RxNorm: 228395 1 Tablet(s) PO QD Needs fasting labs 08/18/2012 09/16/2012 Inactive TAKE ONE TABLET BY M OUTH EVERY DAY warfarin 1 mg tablet RxNorm: 411365 1 Tablet(s) PO As directed on Mon and Thurs 08/11/2012 12/13/2012 Inactive spironolactone 25 mg tablet RxNorm: 672940 1 Tablet(s) PO QAM 07/1110/08/2012 Inactive warfarin 5 mg tablet RxNorm: 239985 1 Tablet(s) PO QD 07/03/201208/19 Inactive Diflucan 100 mg tablet RxNorm: 120303 1 Tablet(s) PO QD 05/04/2012 Inactive Cipro 500 mg tablet RxNorm: 834899 1 Tablet(s) PO BID 05/04/201204/22 Inactive Aciphex 20 mg tablet,delayed release RxNorm: 721930 1 Tablet(s) PO QD 05/04/2012 07/02/2012 Inactive Omeprazole and Pepci d have not helped. warfarin 5 mg tablet RxNorm: 497868 1 Tablet(s) PO QD 05/02/201206/19 Inactive warfarin 5 mg tablet RxNorm: 527734 1 Tablet(s) PO QD 03/02/201204/21 Inactive Toprol XL 200 mg tablet,extended release RxNorm: 312577 1 Table t(s) PO QD 03/02/2012 05/30/2012 Inactive spironolactone 25 mg tablet RxNorm: 440553 1 Tablet(s) PO QAM 02/0707/11/2012 Inactive pravastatin 40 mg tablet RxNorm: 632942 Tablet(s) PO 01/31/201208/17 Inactive TAKE ONE TABLET BY MOUTH EVERY DAY pravastatin 40 mg tablet RxNorm: 854057 1 Tablet(s) PO QD 01/31/2012 08/18/2012 Inactive omeprazole 40 mg capsule,delayed release RxNorm: 098203 1 Capsule(s) PO QD for stomach 01/11/2012 11/02/2012 Inactive for stomach warfarin 5 mg tablet RxNorm: 649311 1 Tablet(s) PO QD 01/03/201202/18 Inactive warfarin 5 mg tablet RxNorm: 428524 1 Tablet(s) PO QD 12/03/201112/19 Inactive pravastatin 40 mg tablet RxNorm: 693482 1 Tablet(s) PO QD 11/25/2011 01/23/2012 Inactive cefdinir 300 mg Cap RxNorm: 854583 1 Capsule(s) PO BID 10/11/201103/2011 Inactive Culturelle 10 billion cell Cap RxNorm: 007170 1 Capsule(s) PO BID 0 10/11/2011 11/09/2011 Inactive Diflucan 100 mg Tab RxNorm: 031325 1 Tablet(s) PO QD 10/11/201110/19 Inactive Wellbutrin XL 300 mg 24 hr tablet, extended release RxNorm: 859292 1 Tablet(s) PO QD 09/14/2011 10/17/2012 Inactive pravastatin 40 mg tablet RxNorm: 437721 1 Tablet(s) PO QD 08/25/2011 11/25/2011 Inactive Coumadin 5 mg tablet RxNorm: 555523 Tablet(s) PO Take as direct ed by doctor. 07/07/2011 12/03/2011 Inactive Singulair 10 mg Tab RxNorm: 315085 1 Tablet(s) PO QD al lergy medication. (Please try to be consistent in dosing) 06/23/2011 01/15/2014 Inactive Diflucan 100 mg Tab RxNorm: 685145 1 Tablet(s) PO QD 06/14/201107/02 Inactive cefdinir 300 mg Cap RxNorm: 451416 1 Capsule(s) PO BID 06/14/201106/2011 Inactive pravastatin 40 mg Tab RxNorm: 194289 1 Tablet(s) PO QD 05/25/201108/2011 Inactive warfarin 5 mg Tab RxNorm: 478081 Tablet(s) PO 05/25/2011 10/18/2011 In active TAKE ONE TABLET BY MOUTH EVERY DAY Toprol XL 200 mg tablet,extended release RxNorm: 310099 1 Table t(s) PO QD 03/05/2011 06/02/2011 Inactive spironolactone 25 mg tablet RxNorm: 096508 1 Tablet(s) PO QAM 02/2402/08/2012 Inactive omeprazole 40 mg capsule,delayed release RxNorm: 722789 1 Capsule(s) PO QD for stomach 01/06/2011 01/11/2012 Inactive for stomach warfarin 5 mg Tab RxNorm: 555822 1 Tablet(s) PO QD 12/17/2010 011 Inactive warfarin 5 mg Tab RxNorm: 336863 1 Tablet(s) PO QD 11/18/2010 011 Inactive spironolactone 25 mg Tab RxNorm: 642901 1 Tablet(s) PO QAM 11/13/19 11 02/24/2011 Inactive Coumadin 6 mg Tab RxNorm: 680159 1 Tablet(s) PO QD 10/28/2010 011 Inactive May have generic hydrochlorothiazide 25 mg Tab RxNorm: 314504 1 Tablet(s) PO QAM 11/11/2010 Inactive Wellbutrin XL 300 mg 24 hr Tab RxNorm: 130022 1 Tablet(s) PO QD 09/14/2011 Inactive Septra DS 800 mg-160 mg Tab RxNorm: 040949 1 Tablet(s) PO BID 06/0806/17/2010 Inactive Pyridium 100 mg Tab RxNorm: 8682764 1 Tablet(s) PO TID 06/08/2010 Inactive Wellbutrin XL 300 mg 24 hr Tab RxNorm: 410319 1 Tablet(s) PO QD 05/201007/15/2010 Inactive hydroxyzine 25 mg Tab RxNorm: 712374 1 Tablet(s) PO QID prn itching--take routinely at bedtime. (pt. may not refil at this time but later) 05/20/2010 10/10/2011 Inactive Zyrtec 10 mg Tab RxNorm: 7593182 1 Tablet(s) PO BID 05/20/20102010 Inactive Coumadin 1 mg Tab RxNorm: 451730 1 Tablet(s) PO 6mg M-F, 7mg S-S 11/16/2010 Inactive hydroxyzine 25 mg Tab RxNorm: 502522 1 Tablet(s) PO QID prn itching--take routinely at bedtime 04/30/2010 05/19/2010 Inactive Toprol XL 200 mg 24 hr Tab RxNorm: 526619 1 Tablet(s) PO QD 011 06/23/2010 Inactive lisinopril-hydrochlorothiazide 10 mg-12.5 mg Tab RxNorm: 197 885 1 Tablet(s) PO QD 04/20/2010 04/29/2010 Inactive omeprazole 40 mg Cap, Delayed Release RxNorm: 362389 1 Capsule(s) PO QD for stomach 04/20/2010 08/17/2010 Inactive lisinopril-hydrochlorothiazide 10 mg-12.5 mg Tab RxNorm: 197 885 Tablet(s) PO 1QDAM - TAKE ONE TABLET BY MOUTH EVERY DAY IN THE MORNING 03/09/2010 Inactive lisinopril-hydrochlorothiazide 10 mg-12.5 mg Tab RxNorm: 197 885 1 Tablet(s) PO QD 02/27/2010 04/20/2010 Inactive Wellbutrin XL 300 mg 24 hr Tab RxNorm: 633435 1 Tablet(s) PO QD 05/21/2010 Inactive lisinopril-hydrochlorothiazide 10 mg-12.5 mg Tab RxNorm: 197 885 1 Tablet(s) PO QD 01/28/2010 02/26/2010 Inactive omeprazole 40 mg Cap, Delayed Release RxNorm: 728030 1 Capsule(s) PO QD for stomach 01/22/2010 04/20/2010 Inactive Altace 10 mg Cap RxNorm: 352646 1 Capsule(s) PO QD for BP 01/22/2010 03/22/2010 Inactive Coumadin 6 mg Tab RxNorm: 608156 1 Tablet(s) PO QD May have generic 12/03/2009 05/01/2010 Inactive Coumadin 6 mg Tab RxNorm: 196260 1 Tablet(s) PO 12/01/2009 12/02/2009 Inactive Coumadin 1 mg Tab RxNorm: 761954 1 Tablet(s) PO QD 11/28/2009 010 Inactive Coumadin 1 mg Tab RxNorm: 902994 1 Tablet(s) PO QD 07/02/2009 010 Inactive lisinopril-hydrochlorothiazide 20 mg-12.5 mg Tab RxNorm: 197 886 2 Tablet(s) PO QAM No Start Date 10/12/2010 Inactive Zofran ODT 4 mg disintegrating tablet RxNorm: 777315 1 Tablet(s) PO Q6H as needed for nausea No Start Date 09/14/2016 Inactive Wellbutrin XL 300 mg 24 hr Tab RxNorm: 058210 1 Tablet(s) PO QD No Start Date 02/02/2010 Inactive alprazolam 0.25 mg tablet RxNorm: 934725 1 Tablet(s) PO prior t o flight No Start Date 05/24/2017 Inactive hydrocodone-acetaminophen 5 mg-500 mg Tab RxNorm: 684256 1-2 Tablet(s) PO Q4H as needed for pain No Start Date 12/02/2010 Inactive Toprol XL 100 mg 24 hr Tab RxNorm: 006773 1 Tablet(s) PO QD No Star t Date 10/14/2013 Inactive Celebrex 200 mg capsule RxNorm: 630277 1 Capsule(s) PO QD No Start Date 05/22/2017 Inactive Flexeril 10 mg tablet RxNorm: 526526 1 Tablet(s) PO TID No Start Da te 04/02/2019 Inactive scopolamine 1 mg over 3 days transdermal patch RxNorm: 71400 2 1 TD take off in 72 hours. No Start Date 07/31/2017 Inactive OneTouch Ultra Test strips RxNorm: Test blood sugar daily No S tart Date 04/23/2018 Inactive Medrol (Dale) 4 mg tablets in a dose pack RxNorm: 956832 Tablet(s) PO As directed No Start Date 01/15/2014 Inactive Coumadin 5 mg Tab RxNorm: 977195 1 Tablet(s) PO QD No Start Date 06/19 Inactive Pepcid 40 mg Tab RxNorm: 886221 1 Tablet(s) PO QD No Start Date 06/23 Inactive prednisone 10 mg Tab RxNorm: 711011 1 Tablet(s) PO BID No Start Date 06/23/2010 Inactive spironolactone 25 mg tablet RxNorm: 875015 1 Tablet(s) PO QAM No St art Date 09/26/2018 Inactive scopolamine 1.5 mg 72 hr Transderm Patch RxNorm: 805905 TD Apply 1 patch behind ear every 72 hours, replace after 3 days. No Start Date 11/07/2012 Inacti ve azithromycin 250 mg Tab RxNorm: 761286 Tablet(s) PO 2 t abs on day one and one tab on days 2-5. (antibiotic) No Start Date 10/10/2011 Inactive Medrol (Dale) 4 mg Tabs in a Dose Pack RxNorm: 331693 1 Tablet(s) PO as directed. (steroid pack) No Start Date 10/10/2011 Inactive Lovenox 40 mg/0.4 mL subcutaneous syringe RxNorm: 130263 40 Mil ligram(s) SQ QD No Start Date 05/04/2018 Inactive Celebrex 200 mg capsule RxNorm: 401419 1 Capsule(s) PO BID as n eeded for pain No Start Date 01/13/2017 Inactive warfarin 1 mg tablet RxNorm: 365346 1 Tablet(s) PO As directed on Tue and No Start Date 08/10/2012 Inactive cefuroxime axetil 500 mg Tab RxNorm: 112072 1 Tablet(s) PO BID No S tart Date 06/13/2011 Inactive Lovenox 40 mg/0.4 mL subcutaneous syringe RxNorm: 720139 40 Mil ligram(s) SQ QD No Start Date 01/26/2018 Inactive Coumadin 5 mg tablet RxNorm: 816698 1 Tablet(s) PO QD No Start Date 0 08/13/2013 Inactive Medrol (Dale) 4 mg tablets in a dose pack RxNorm: 933845 Tablet(s) PO as directed No Start Date 01/17/2014 Inactive Coumadin 6 mg tablet RxNorm: 296912 1 Tablet(s) PO QD No Start Date 0 06/20/2016 Inactive warfarin 5 mg tablet RxNorm: 887802 1 Tablet(s) PO QD No Start Date 0 12/02/2011 Inactive Medrol (Dale) 4 mg Tabs in a Dose Pack RxNorm: 902120 Tablet(s) PO as directed No Start Date 06/23/2010 Inactive Flonase 50 mcg/actuation nasal spray,suspension RxNorm: 8963 23 2 Girard NASAL BID No Start Date 12/05/2014 Inactive Pepcid 20 mg tablet RxNorm: 180194 1 Tablet(s) PO BID as needed No Start Date 11/02/2012 Inactive spironolactone 25 mg tablet RxNorm: 615776 1 Tablet(s) PO QAM No St art Date 04/02/2019 Inactive Medication Administered No Medication Administered data Immunizations No Immunization data Results Observation Observation Code Item Item Code Result Date S ervice Location MICROALBUMIN URINE RANDOM 91658 CREAT MG/D 139 MG/DL Unknown MICROALBUMIN URINE RANDOM 64316 CRE/100 1.39 G/L 12/20 Unknown Procedures Procedure Codes Date URINALYSIS NONAUTO W/O SCOPE CPT-4: 59929 09/27/2018 URINE CULTURE/ COLONY COUNT CPT-4: 21575 09/27/2018 URINALYSIS NONAUTO W/O SCOPE CPT-4: 88932 10/13/2017 URINE CULTURE/ COLONY COUNT CPT-4: 24984 10/13/2017 STREP A ASSAY W/OPTIC CPT-4: 61075 06/21/2016 STREP A ASSAY W/OPTIC CPT-4: 16776 06/24/2014 THER/PROPH/DIAG INJ SC/IM CPT-4: 06983 03/22/2014 METHYLPREDNISOLONE 40 MG INJ CPT-4: J1030 03/22/2014 TRIAMCINOLONE ACET INJ NOS CPT-4: J3301 03/22/2014 URINALYSIS NONAUTO W/O SCOPE CPT-4: 62042 10/19/2013 URINE CULTURE/ COLONY COUNT CPT-4: 21525 10/19/2013 CEFTRIAXONE SODIUM INJECTION CPT-4: J0696 03/02/2013 THER/PROPH/DIAG INJ SC/IM CPT-4: 97648 03/02/2013 CEFTRIAXONE SODIUM INJECTION CPT-4: J0696 03/01/2013 THER/PROPH/DIAG INJ SC/IM CPT-4: 38763 03/01/2013 THER/PROPH/DIAG INJ SC/IM CPT-4: 63660 03/01/2013 METHYLPREDNISOLONE 40 MG INJ CPT-4: J1030 03/01/2013 TRIAMCINOLONE ACET INJ NOS CPT-4: J3301 03/01/2013 MICROALBUMIN QUANTITATIVE CPT-4: 98226 01/11/2013 URINE CULTURE/ COLONY COUNT CPT-4: 25151 05/04/2012 URINALYSIS NONAUTO W/O SCOPE CPT-4: 48786 05/04/2012 URINE CULTURE/ COLONY COUNT CPT-4: 50349 05/29/2010 TRIAMCINOLONE ACET INJ NOS CPT-4: J3301 05/20/2010 METHYLPREDNISOLONE 40 MG INJ CPT-4: J1030 05/20/2010 THER/PROPH/DIAG INJ SC/IM CPT-4: 04677 05/20/2010 Vital Signs Date Vital 05/09/2019 Blood [...] 1: 134/78 Code: 8480-6 BMI: 35.1 Code: 32235-2 Heart Rate 1: 76 bpm Height: 5'9" Respiratory Rate: 20 bpm Temperature: 36 .6 (C) / 97.8 (F) Weight: 238 lbs 12/27/2017 Blood Pressure 1: 126/64 Code: 8480-6 BMI: 34.7 Code: 77076-4 Heart Rate 1: 72 bpm Height: 5'9" Respiratory Rate: 20 bpm Temperature: 36 .8 (C) / 98.2 (F) Weight: 235 lbs 10/12/2017 Blood Pressure 1: 142/80 Code: 8480-6 BMI: 35.1 Code: 22981-8 Heart Rate 1: 98 bpm Height: 5'9" Respiratory Rate: 22 bpm SpO2: 100% Tempera ture: 36.5 (C) / 97.7 (F) Weight: 238 lbs 09/16/2017 Blood Pressure 1: 136/82 Code: 8480-6 BMI: 34.1 Code: 38508-5 Heart Rate 1: 82 bpm Height: 5'9" Respiratory Rate: 18 bpm SpO2: 96% Tempera ture: 36.3 (C) / 97.3 (F) Weight: 231 lbs 05/25/2017 Blood Pressure 1: 122/82 Code: 8480-6 BMI: 32.3 Code: 76944-1 Heart Rate 1: 116 bpm Height: 5'9" Respiratory Rate: 20 bpm SpO2: 98% Tempera ture: 35.6 (C) / 96.1 (F) Weight: 219 lbs 01/03/2017 Blood Pressure 1: 126/78 Code: 8480-6 BMI: 33.4 Code: 15378-3 Heart Rate 1: 72 bpm Height: 5'9" Respiratory Rate: 20 bpm Temperature: 36 .8 (C) / 98.2 (F) Weight: 226 lbs 09/23/2016 Blood Pressure 1: 126/82 Code: 8480-6 BMI: 33.8 Code: 69665-7 Heart Rate 1: 80 bpm Height: 5'9" Respiratory Rate: 20 bpm SpO2: 97% Tempera ture: 36.8 (C) / 98.2 (F) Weight: 229 lbs 09/03/2016 Blood Pressure 1: 188/64 Code: 8480-6 Bl ood Pressure 2: 166/92 Code: 8480-6 BMI: 34.4 Code: 77844-8 Heart Rate 1: 66 bpm Height: 5'9" Res piratory Rate: 20 bpm SpO2: 98% Temperature: 35.7 (C) / 96.2 (F) Weight: 233 lbs 07/08/2016 Blood Pressure 1: 134/82 Code: 8480-6 Heart Rate 1: 64 bpm Height: 5'9" Respiratory Rate: 20 bpm SpO2: 97% Temperature: 36.6 (C) / 97.8 (F) Weight: 06/21/2016 Blood Pressure 1: 112/68 Code: 8480-6 BMI: 33.8 Code: 89856-7 Heart Rate 1: 64 bpm Height: 5'9" Respiratory Rate: 20 bpm SpO2: 95% Tempera ture: 36.3 (C) / 97.3 (F) Weight: 229 lbs 02/23/2016 Blood Pressure 1: 128/78 Code: 8480-6 BMI: 33.4 Code: 35411-1 Heart Rate 1: 74 bpm Height: 5'9" [...] 1: 122/80 Code: 8480-6 BMI: 32.2 Code: 98622-2 Heart Rate 1: 80 bpm Height: 5'9" Respiratory Rate: 20 bpm Temperature: 37 .0 (C) / 98.6 (F) Weight: 218 lbs 08/09/2014 Blood Pressure 1: 132/84 Code: 8480-6 BMI: 33.1 Code: 03688-4 Heart Rate 1: 72 bpm Height: 5'9" Respiratory Rate: 20 bpm Temperature: 36 .7 (C) / 98.0 (F) Weight: 224 lbs 06/24/2014 Blood Pressure 1: 132/80 Code: 8480-6 BMI: 32.8 Code: 21505-4 Heart Rate 1: 68 bpm Height: 5'9" Respiratory Rate: 20 bpm Temperature: 36 .4 (C) / 97.6 (F) Weight: 222 lbs 03/22/2014 Blood Pressure 1: 128/84 Code: 8480-6 BMI: 32.5 Code: 34521-7 Heart Rate 1: 78 bpm Height: 5'9" Respiratory Rate: 22 bpm Temperature: 36 .0 (C) / 96.8 (F) Weight: 220 lbs 03/05/2014 Blood Pressure 1: 124/78 Code: 8480-6 BMI: 31.9 Code: 86330-5 Heart Rate 1: 82 bpm Height: 5'9" Respiratory Rate: 20 bpm Temperature: 35 .8 (C) / 96.4 (F) Weight: 216 lbs 01/16/2014 Blood Pressure 1: 116/68 Code: 8480-6 BMI: 33.8 Code: 79413-0 Heart Rate 1: 72 bpm Height: 5'7" Respiratory Rate: 20 bpm Temperature: 36 .6 (C) / 97.9 (F) Weight: 216 lbs 05/10/2013 Blood Pressure 1: 124/86 Code: 8480-6 BMI: 34.3 Code: 93817-4 Heart Rate 1: 84 bpm Height: 5'7" [...] Weight: 220 lbs 02/22/2013 Blood Pressure 1: 116/ Code: 8480-6 BMI: 33.1 Code: 52226-2 Heart Rate 1: 64 bpm Height: 5'9" Respiratory Rate: 20 bpm Temperature: 36 .4 (C) / 97.6 (F) Weight: 224 lbs 01/11/2013 Blood Pressure 1: 126/ Code: 8480-6 BMI: 35.3 Code: 99109-4 Heart Rate 1: 68 bpm Height: 5'9" Respiratory Rate: 20 bpm Temperature: 36 .7 (C) / 98.1 (F) Weight: 239 lbs 11/03/2012 Blood Pressure 1: 104 Code: 8480-6 BMI: 34.4 Code: 68723-5 Heart Rate 1: 72 bpm Height: 5'9" Respiratory Rate: 20 bpm Temperature: 36 .8 (C) / 98.3 (F) Weight: 233 lbs 05/04/2012 Blood Pressure 1: 124 Code: 8480-6 BMI: 33.7 Code: 04324-1 Heart Rate 1: 84 bpm Height: 5'9" Temperature: 36.3 (C) / 97.3 (F) Weight: 228 lbs 10/11/2011 Blood Pressure 1: 110/70 Code: 8480-6 BMI: 33.7 Code: 20451-3 Heart Rate 1: 64 bpm Height: 5'9" Temperature: 36.8 (C) / 98.3 (F) Weight: 228 lbs 06/23/2011 Blood Pressure 1: 114/ Code: 8480-6 BMI: 33.4 Code: 90443-2 Heart Rate 1: 80 bpm Height: 5'9" Respiratory Rate: 20 bpm Temperature: 36 .7 (C) / 98.0 (F) Weight: 226 lbs 06/14/2011 Blood Pressure 1: 118/74 Code: 8480-6 BMI: 33.4 Code: 98031-9 Heart Rate 1: 80 bpm Height: 5'9" [...] 1: 126/82 Code: 8480-6 BMI: 32.6 Code: 57044-6 Heart Rate 1: 68 bpm Height: 5'9" [...] 1: 140/92 Code: 8480-6 BMI: 31.3 Code: 64939-8 Heart Rate 1: 60 bpm Height: 5'10" [...] upper back on 08/13/16 while camping around [place], [place]. Patient states is tender around tick [...] stop Lisinopril HCT follow up 06/24/2010 hospital fwup, still on Septra DS and Levaquin ~generic [...] 01/22/2010 Encounters Encounter Performer Location Codes Date ([id number]) OFFICE/OUTPATIENT VISIT EST Diagnosis: Type 2 diabetes mellitus without complications[ICD10: E11.9] Jessica Michaelcorby VO [employer] [facility] CPT-4: 03185 05/09/2019 ([id number]) OFFICE/OUTPATIENT VISIT EST Diagnosis: Type 2 diabetes mellitus without complications[ICD10: E11.9] Diagnosis: Essential hypertension[ICD10: I10] Jessica OBRIEN [employer] [facility] CPT-4: 23635 04/03/2019 ([id number]) OFFICE/OUTPATIENT VISIT EST Diagnosis: Gastro-esophageal reflux disease without esophagitis[ICD10: K21.9] Diagnosis: Urinary tract infection, site not specified[ICD10: N39.0] Diagnosis: Ventral hernia without obstruction or gangrene[ICD10: K43.9] Jessica Michaelcorby VO [employer] [facility] CPT-4: 87181 09/27/2018 ([id number]) OFFICE/OUTPATIENT VISIT EST Diagnosis: Essential (primary) hypertension[ICD10: I10] Diagnosis: Type 2 diabetes mellitus without complications[ICD10: E11.9] Diagnosis: Carpal tunnel syndrome, right upper limb[ICD10: G56.01] Diagnosis: Primary insomnia[ICD10: F51.01] Jessica Michaelcorby VO [employer] [facility] CPT-4: 55256 04/24/2018 ([id number]) OFFICE/OUTPATIENT VISIT EST Diagnosis: Type 2 diabetes mellitus without complications[ICD10: E11.9] Diagnosis: Mixed hyperlipidemia[ICD10: E78.2] Diagnosis: Essential (primary) hypertension[ICD10: I10] Diagnosis: Pain in unspecified joint[ICD10: M25.50] Jessica GEE [facility] CPT-4: 91827 12/27/2017 ([id number]) NURSE/OUTPATIENT VISIT EST Diagnosis: Hematuria, unspecified[ICD10: R31.9] Jessica GEE [facility] CPT-4: 15268 10/13/2017 ([id number]) OFFICE/OUTPATIENT VISIT EST Diagnosis: Pleurodynia[ICD10: R07.81] Sofi SUER [facility] CPT-4: 96242 10/12/2017 ([id number]) OFFICE/OUTPATIENT VISIT EST Diagnosis: Acute bronchitis, unspecified[ICD10: J20.9] Sofi GEE DO [facility] CPT-4: 38653 09/16/2017 ([id number]) OFFICE/OUTPATIENT VISIT EST Diagnosis: Other specified postprocedural states[ICD10: Z98.890] Diagnosis: Cellulitis of neck[ICD10: L03.221] Diagnosis: Tachycardia, unspecified[ICD10: R00.0] [facility] 17597 05/25/2017 ([id number]) OFFICE/OUTPATIENT VISIT EST Diagnosis: Lumbago with sciatica, right side[ICD10: M54.41] Diagnosis: Pain in unspecified joint[ICD10: M25.50] Jessica GEE [facility] CPT-4: 06336 01/03/2017 ([id number]) OFFICE/OUTPATIENT VISIT EST Diagnosis: Bitten or stung by nonvenomous insect and other nonvenomous arthropods, subsequent encounter[ICD10: W57.XXXD] Diagnosis: Essential (primary) hypertension[ICD10: I10] Diagnosis: Low back pain[ICD10: M54.5] Jessica VO S. Lizz RENDER [facility] CPT-4: 77182 09/23/2016 OFFICE/OUTPATIENT VISIT EST Diagnosis: Bitten or stung by nonvenomous insect and other nonvenomous arthropods, initial encounter[ICD10: W57.XXXA] Diagnosis: Essential (primary) hypertension[ICD10: I10] Kaitlynn Mosley JESSICA GEE [employer] [facility] CPT-4: 97510 09/03/2016 ([id number]) OFFICE/OUTPATIENT VISIT EST Diagnosis: Low back pain[ICD10: M54.5] Diagnosis: Radiculopathy, lumbosacral region[ICD10: M54.17] Jessica GEE [employer] [facility] CPT-4: 36846 07/08/2016 ([id number]) OFFICE/OUTPATIENT VISIT EST Diagnosis: Acute pharyngitis, unspecified[ICD10: J02.9] Jessica GEE [employer] [facility] CPT-4: 16747 06/21/2016 ([id number]) OFFICE/OUTPATIENT VISIT EST Diagnosis: Cough[ICD10: R05] Diagnosis: Fever, unspecified[ICD10: R50.9] Janiya GEE [employer] [facility] CPT-4: 47091 02/23/2016 ([id number]) OFFICE/OUTPATIENT VISIT EST Diagnosis: Acute sinusitis, unspecified[ICD10: J01.90] Jessica GEE [employer] [facility] CPT-4: 54681 02/16/2016 OFFICE/OUTPATIENT VISIT EST Diagnosis: Type 2 diabetes mellitus without complications[ICD10: E11.9] Diagnosis: Gastro-esophageal reflux disease without esophagitis[ICD10: K21.9] Diagnosis: Ventral hernia without obstruction or gangrene[ICD10: K43.9] Suki GEE [employer] [facility] CPT-4: 06855 02/11/2015 OFFICE/OUTPATIENT VISIT EST 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] Diagnosis: Essential (primary) hypertension[ICD10: I10] Suki FerreiraLucilaaudraaby JESSICA GEE [employer] [facility] CPT-4: 69947 01/28/2015 OFFICE/OUTPATIENT VISIT EST Diagnosis: SINUSITIS, ACUTE[ICD9: 461.9] Kaitlynn Mosley JESSICA MCCORMICK [employer] [facility] CPT-4: 42010 12/06/2014 ([id number]) OFFICE/OUTPATIENT VISIT EST Diagnosis: SINUSITIS, ACUTE[ICD9: 461.9] Kaitlynn MaloneyMyrna JESSICA GEE [facility] CPT-4: 01833 08/09/2014 ([id number]) OFFICE/OUTPATIENT VISIT EST Diagnosis: TONSILLITIS, ACUTE[ICD9: 463] Suki GEE DO [facility] CPT-4: 50081 06/24/2014 OFFICE/OUTPATIENT VISIT EST Diagnosis: SINUSITIS, ACUTE[ICD9: 461.9] Diagnosis: EUSTACHIAN TUBE DYSFUNCTION[ICD9: 381.81] Diagnosis: COUGH[ICD9: 786.2] Suki GEE [facility] CPT-4: 93948 03/22/2014 OFFICE/OUTPATIENT VISIT EST Diagnosis: Elbow pain, right[ICD9: 719.42] Suki GEE [facility] CPT-4: 27720 03/05/2014 OFFICE/OUTPATIENT VISIT EST Diagnosis: SINUSITIS, ACUTE[ICD9: 461.9] Jessica SMITHLINE Monica GEE [facility] CPT-4: 97535 01/16/2014 ([id number]) OFFICE/OUTPATIENT VISIT EST Diagnosis: GROSS HEMATURIA[ICD9: 599.71] Jessica Marlen SMITHLINE Monica GEE [facility] CPT-4: 71639 10/19/2013 ([id number]) OFFICE/OUTPATIENT VISIT EST Diagnosis: DM W/O COMPLICATION TYPE II[ICD9: 250.00] Diagnosis: HYPERLIPIDEMIA NEC/NOS[ICD9: 272.4] Jessica Michaelcorby LUISGautam KING Monica GEE [facility] CPT-4: 90943 05/10/2013 ([id number]) OFFICE/OUTPATIENT VISIT EST Diagnosis: SINUSITIS, ACUTE[ICD9: 461.9] Jessica Michaelcorby JESSICA DomingaLloyd MARLEN [facility] CPT-4: 11134 04/17/2013 OFFICE/OUTPATIENT VISIT EST Diagnosis: OTITIS MEDIA NOS[ICD9: 382.9] Diagnosis: COUGH[ICD9: 786.2] Suki SMITHLINE Monica GEE DO [facility] CPT-4: 04859 03/05/2013 OFFICE/OUTPATIENT VISIT EST Diagnosis: COUGH[ICD9: 786.2] Diagnosis: BRONCHITIS, ACUTE[ICD9: 466.0] Suki GEE [facility] CPT-4: 51023 03/02/2013 OFFICE/OUTPATIENT VISIT EST Diagnosis: COUGH[ICD9: 786.2] Diagnosis: OTITIS MEDIA NOS[ICD9: 382.9] Diagnosis: BRONCHITIS, ACUTE[ICD9: 466.0] Suki GEE [facility] CPT-4: 75538 03/01/2013 OFFICE/OUTPATIENT VISIT EST Diagnosis: DM W/O COMPLICATION TYPE II, UNCONTROLLED[ICD9: 250.02] Jessica GEE [facility] CPT-4: 99194 02/22/2013 ([id number]) PREV VISIT EST AGE 40-64 Diagnosis: DM W/O COMPLICATION TYPE II, UNCONTROLLED[ICD9: 250.02] Diagnosis: HYPERTENSION[ICD9: 401.9] Diagnosis: ROUTINE MEDICAL EXAM[ICD9: V70.0] Jessica Mccormick ITALIA E [facility] 37268 01/11/2013 OFFICE/OUTPATIENT VISIT EST Diagnosis: HZ (HERPES ZOSTER)[ICD9: 053.9] Kaitlynn Mosley JESSICA Monica [facility] CPT-[facility]: 22232 11/03/2012 OFFICE/OUTPATIENT VISIT EST Diagnosis: URINARY TRACT INFECTION[ICD9: 599.0] Diagnosis: GERD[ICD9: 530.81] Diagnosis: PHARYNGITIS, ACUTE[ICD9: 462] [facility]: 19851 05/04/2012 OFFICE/OUTPATIENT VISIT EST Diagnosis: COUGH[ICD9: 786.2] Diagnosis: SINUSITIS, ACUTE[ICD9: 461.9] Diagnosis: PHARYNGITIS, ACUTE[ICD9: 462] Jessica SMITHLINE Monica [facility]: 00405 10/11/2011 OFFICE/OUTPATIENT VISIT EST Diagnosis: COUGH[ICD9: 786.2] Diagnosis: SINUSITIS, ACUTE[ICD9: 461.9] Diagnosis: PHARYNGITIS, ACUTE[ICD9: 462] Diagnosis: ALLERGIC RHINITIS[ICD9: 477.9] Xiomara Michael VO S . ORENDER DO [facility] CPT-4: 21817 06/23/2011 OFFICE/OUTPATIENT VISIT EST Diagnosis: COUGH[ICD9: 786.2] Diagnosis: SINUSITIS, ACUTE[ICD9: 461.9] Diagnosis: PHARYNGITIS, ACUTE[ICD9: 462] Jessica VO S. ORENDER DO [facility] CPT-4: 35716 06/14/2011 OFFICE/OUTPATIENT VISIT EST Diagnosis: SINUSITIS, ACUTE[ICD9: 461.9] Diagnosis: PHARYNGITIS, ACUTE[ICD9: 462] Jessica Marlen VO S. ORENDER DO [facility] CPT-4: 65949 12/02/2010 OFFICE/OUTPATIENT VISIT EST Diagnosis: HYPERTENSION[ICD9: 401.9] Diagnosis: HYPERLIPIDEMIA NEC/NOS[ICD9: 272.4] Diagnosis: DERMATITIS NOS[ICD9: 692.9] Jessica VO S. O RENDER DO [facility] CPT-4: 22360 11/12/2010 OFFICE/OUTPATIENT VISIT EST Jessica Marlen SMITHLINE S. ORE NDER DO [facility] CPT- 4: 57351 10/13/2010 ([id number]) OFFICE/OUTPATIENT VISIT EST Jessica Michaelaaronderek TORIN UJOANNA S. ORENDER DO [facility] CPT-4: 78231 06/24/2010 ([id number]) OFFICE/OUTPATIENT VISIT EST Jessica Michaelaaronderek TORIN UELINE S. ORENDER DO [facility] CPT-4: 85377 06/08/2010 ([id number]) OFFICE/OUTPATIENT VISIT EST Xiomara VO S . ORENDER DO [facility] CPT-4: 63123 05/20/2010 ([id number]) OFFICE/OUTPATIENT VISIT EST Jessica Michaelaaronderek TORIN UJOANNA S. ORENDER DO [facility] CPT-4: 19651 04/30/2010 ([id number]) OFFICE/OUTPATIENT VISIT, EST Jessica Mccormickderek ABDIRASHID MANZANO S. ORENDER DO [facility] CPT-4: 87706 01/22/2010 Plan of Care Planned Activity Notes Codes Status Date Visit Diagnosis Plan: Type 2 diabetes mellitus without complications Discussion: Increase Jardience to 25mg daily Acccuchecks daily Check CMP, HbA1C in 2mos then fwup ICD-9 : 250.00 ICD-10 : E11.9 05/09/2019 Appointment: Jessica Geetel: [address] [place], [place] [phone] FOLLOW UP 05/09/2019 Patient Education: Jardiance Patient Savings Message Alert Completed 05/09/2019 Visit Diagnosis Plan: Type 2 diabetes mellitus without complications Discussion: Lab discussed Add jardience 10mg po q AM Hold spironolactone Accuchecks daily alternating times Fwup 1 month with BS readings Notify if any signs of yeast infection ICD-9 : 250.00 ICD-10 : E11.9 04/03/2019 Appointment: Jessica Gee WPtel: [address] [place] [address] FOLLOW UP 04/03/2019 Visit Diagnosis Plan: Gastro-esophageal [...] : N39.0 09/27/2018 Appointment: Jessica Gee WPtel: [address] [place], [place] [phone] ACUTE ILLNESS 09/27/2018 Visit Diagnosis Plan: Primary insomnia Discussion: Tri al of amitriptylene 25mg po q HS ICD-9 : 780.52 ICD-10 : F51.01 04/24/2018 Visit Diagnosis Plan: Essential (primary) hypertension Discussion: Stable ICD-9 : 401.9 ICD-10 : I10 04/24/2018 Visit Diagnosis Plan: Type 2 diabetes mellitus without complications Discussion: Check CMP, Lipids Accuchecks daily ICD-9 : 250.00 ICD-10 : E11.9 04/24/2018 Visit Diagnosis Plan: Carpal tunnel syndrome, right up per limb Discussion: Scheduled for surgery on May [address] Norris ICD-9 : 354.0 ICD-10 : G56.01 04/24/2018 Appointment: [facility] [phone] [facility] [facility] 04/24/2018 Patient Education: celecoxib- [employer] C[employer]on [id number] Completed 04/24/2018 Patient Education: amitriptyline- [employer] C[employer]on [id number] Completed 04/24/2018 Visit Diagnosis Plan: Essential (primary) [...] : E11.9 12/27/2017 Appointment: Jessica [facility]ee [facility]el[facility] [phone] [facility] FOLLOW [facility] 12/27/2017 Patient Education: Patient Medication Summary Completed 12/27/2017 Patient Education: Patient Medication Summary Completed 12/19/2017 Care Plan: MAMMOGRAM BOTH BREASTS LOINC : 69978-6 Pending 12/19/2017 Patient Education: Patient Medication Summary Completed 12/16/2017 Care Plan: ASSAY THYROID STIM HORMONE Pen ding 12/16/2017 Care Plan: ASSAY OF FREE THYROXINE Pendin g 12/16/2017 Care Plan: LIPID PANEL LOINC : 80580-2 Pending 12/16/2017 Care Plan: CBC Pending 12/16/2017 Care Plan: A1C HPLC LOINC : 91961-9 Pending 12/16/2017 Patient Education: Patient Medication Summary Completed 10/17/2017 Care Plan: CT ANGIOGRAPHY CHEST LOINC : 35350-4 Pending 10/17/2017 Patient Education: Patient Medication Summary Completed 10/14/2017 Care Plan: CT ANGIOGRAPHY CHEST LOINC : 28715-4 Pending 10/14/2017 Appointment: Jessica Gee WPtel: [address] [place], [place] [phone] UA 10/13/2017 Patient Education: Patient Medication Summary Completed 10/13/2017 Visit Diagnosis Plan: Pleurodynia Discussion: patient sent for stat cxray. medrol dose pack prescribed for symptom management. instructed to perform deep breathing exercises at home to prevent atelectasis or pneumonia. will notify [facility] of results of xray and order additional tests/medications as needed. ICD-9 : 786.50 ICD-10 : R07.81 10/12/2017 Appointment: Sofi Gresham [address] [place] [address] ACUTE ILLNESS 10/12/2017 Patient Education: Patient Medication [...] ICD-10 : J20.9 09/16/2017 Appointment: Sofi Gresham [address] [place] [address] ACUTE ILLNESS 09/16/2017 Patient Education: Patient Medication Summary Completed 09/16/2017 Appointment: Jessica Gee WPtel: [address] [place], [place] [phone] CANCELED 08/10/2017 Visit Diagnosis Plan: Other specified [...] : L03.221 05/25/2017 Appointment: Jessica Gee WPtel: [facility]8 [facility] FOLLOW UP 05/25/2017 Patient Education: Patient Medication Summary Completed 05/25/2017 Visit Diagnosis Plan: Lumbago with sciatica, right britton e Discussion: Check arthritis panel Patient awaiting neck surgery before surgery will consider back surgery ICD-9 : 724.2 ICD-10 : M54.41 01/03/2017 Appointment: Jessica Gee WPtel: [facility] ACUTE ILLNESS 01/03/2017 Patient Education: Patient Medication Summary Completed 01/03/2017 Patient Education: Patient Medication Summary Completed 12/16/2016 Care Plan: MAMMOGRAM SCREENING LOINC : 2 6347-5 Pending 12/16/2016 Patient Education: Patient Medication Summary Completed 10/07/2016 Care Plan: MRI LUMBAR SPINE W/O & W/DYE LOINC : 11899-9 Pending 10/07/2016 Visit Diagnosis Plan: Bitten or [...] : I10 09/23/2016 Appointment: Jessica Gee WPtel: [facility]8 [facility] 09/22 confirmed WORK IN 09/23/2016 Patient Education: Patient Medication Summary Completed 09/23/2016 Visit Plan: Tick panel at [facility] Increa se spironolactone to 2 po am (New Rx sent) Take B/P at home/work and also come to office next week for recheck Will await lab results before starting any antibiotic 09/03/2016 Appointment: Kaitlynn Mosley WPtel: [address] [place] [address] ACUTE ILLNESS 09/03/2016 Patient Education: Patient Medication Summary Completed 09/03/2016 Visit Diagnosis Plan: Low back pain Discussion: Celebr ex BID PT Continue stretches at home L/S xray Follow Up: 1 months ICD-9 : 724.2 ICD-10 : M54.5 07/08/2016 Appointment: Jessica Gee WPtel: [address] [place] [address] ACUTE ILLNESS 07/08/2016 Patient Education: Patient Medication Summary Completed 07/08/2016 Care Plan: X-RAY EXAM L-S SPINE 2/ VWS LOINC : 81895-4 Pending 07/08/2016 Visit Plan: Supportive care. Rest, Fluid s, Tylenol/Motrin prn fever or bodyaches. Notify if worsening symptoms.New toothebrush in 5 days 06/21/2016 Visit Diagnosis Plan: Acute pharyngitis, unspecified D iscussion: Strep Negative Supportive Care May use zyrtec 10mg q HS ICD-9 : 462 ICD-10 : J02.9 06/21/2016 Visit NOS Plan: Plan Notes: Supportive care. Rest, Fluids... 06/21/2016 Appointment: Jessica Gee WPtel: [address] [place], [place] [phone] ACUTE ILLNESS 06/21/2016 Patient Education: Patient Medication Summary Completed 06/21/2016 Visit Plan: No pulseox last week to comp are to today, but she does sound diminished today Studies as above ordered Continue cefdinir until results received Increase albuterol treatments to q4-6hrs PRN Continue supportive care 02/23/2016 Appointment: Janiya Gregorio [address] [place] [address] ACUTE ILLNESS 02/23/2016 Patient Education: Patient Medication Summary Completed 02/23/2016 Care Plan: CHEST X-RAY 2VW FRONTAL&LATL LOINC : 78638-6 Pending 02/23/2016 Visit Plan: Saline nasal flushes prn. Ty lenol/Motrin prn headache. Notify if persists/symptoms worsening. 02/16/2016 Appointment: Jessica Gee WPtel: [address] [place] [address] ACUTE ILLNESS 02/16/2016 Patient Education: Patient Medication Summary Completed 02/16/2016 Visit Plan: Discussed labs Continue Topr ol at 200 mg PO daily Increase Aciphex to BID Notify if increase of Aciphex does not give relief. Repeat PT/INR in 2 weeks. 02/11/2015 Appointment: Suki Barahona WPtel: [address] [place] [address] 02/10 confirmed ~sl FOLLOW UP 02/11/2015 Patient Education: Patient Medication Summary Completed 02/11/2015 Patient Education: Patient Medication Summary Completed 02/06/2015 Care Plan: POC PROTIME/INR LOINC : 60547 -6 Pending 02/06/2015 Visit Plan: Increase Toprol XL 200 mg to one full tablet daily (is currently taking only 1/2 tablet) To VC for EKG today Monitor daily BP Notify of any changes- increased numbness, weakness, headache etc. 01/28/2015 Appointment: Suki Barahona WPtel: [address] [place] [address] ACUTE ILLNESS 01/28/2015 Patient Education: Patient Medication Summary Completed 01/28/2015 Visit Plan: ERx Amoxicillin and Flonase Nasal saline, humidified air Facial heat or cold packs for comfort Increase fluids/rest Discussed s/s of worsening, go to over weekend if these occur. 12/06/2014 Appointment: Kaitlynn Mosley WPtel: [address] [place] [address] ACUTE ILLNESS 12/06/2014 Patient Education: Patient Medication Summary Completed 12/06/2014 Appointment: Kaitlynn Mosley WPtel: [address] [place] [address] ACUTE ILLNESS 08/09/2014 Patient Education: Patient Medication Summary Completed 08/09/2014 Appointment: Suki Barahona WPtel: [address] [place] [address] ACUTE ILLNESS 06/24/2014 Patient Education: Patient Medication Summary Completed 06/24/2014 Appointment: Suki Barahona WPtel: [address] [place] [address] ACUTE ILLNESS 03/22/2014 Patient Education: Patient Medication Summary Completed 03/22/2014 Patient Education: [employer] - Antibi otics, Analgesics 18+, Oral Contraceptives F 18+ Completed 03/22/2014 Appointment: Suki Barahona WPtel: [address] [place] [address] FOLLOW UP 03/05/2014 Patient Education: Patient Medication Summary Completed 03/05/2014 Visit Plan: Saline nasal flushes prn. Ty lenol/Motrin prn headache. Notify if persists/symptoms worsening. Restart flonase 01/16/2014 Appointment: Jessica Gee WPtel: [address] [place] [address] ACUTE ILLNESS 01/16/2014 Patient Education: Patient Medication Summary Completed 01/16/2014 Appointment: Jessica Gee WPtel: [address] [place] [address] 10/19/2013 Patient Education: Patient Medication Summary Completed 10/19/2013 Appointment: Jessica Gee WPtel: [address] [place] [address] 08/08 patient canceled appt and said will call back to [facility] FOLLOW UP 08/09/2013 Visit Plan: Increase Coumadin to 6mg M-F and stay on 5mg Sat, Sun Add lipids to labs Check PT/INR in 3wks Continue metfromin at current dose and accuchecks 05/10/2013 Appointment: Jessica Gee WPtel: [address] [place], [place] [phone] 05/09 FOLLOW UP 05/10/2013 Patient Education: Patient Medication Summary Completed 05/10/2013 Visit Plan: Saline nasal flushes prn. Ty lenol/Motrin prn headache. Notify if persists/symptoms worsening. 04/17/2013 Appointment: Jessica Gee WPtel: [address] [place] [address] ACUTE ILLNESS 04/17/2013 Patient Education: Patient Medication Summary Completed 04/17/2013 Appointment: Suki Barahona WPtel: [address] [place] [address] FOLLOW UP 03/05/2013 Patient Education: Patient Medication Summary Completed 03/05/2013 Appointment: Suki Barahona WPtel: [address] [place] [address] FOLLOW UP 03/02/2013 Patient Education: Patient Medication Summary Completed 03/02/2013 Appointment: Suki Barahona WPtel: [address] [place] [address] ACUTE ILLNESS 03/01/2013 Patient Education: Patient Medication Summary Completed 03/01/2013 Visit Plan: Continue metformin and accuc hecks Add fish oil 1gram daily Check HbA1C, CMP in 2mos then fwup 02/22/2013 Appointment: Jessica Gee WPtel: [address] [place], [place] [phone] 02/21 work FOLLOW UP 02/22/2013 Patient Education: Patient Medication Summary Completed 02/22/2013 Visit Plan: Start Metformin Start Accuch ecks daily alternating times Will go for dilated eye exam once BS more stabilized Diabetic foot care discussed Diabetic diet info given 01/11/2013 Appointment: Jessica Gee WPtel: [address] [place], [place] [phone] FOLLOW UP 01/11/2013 Patient Education: Patient Medication Summary Completed 01/11/2013 Appointment: Dimitri Kaitlynn WPtel: [address] [place] [address] ACUTE ILLNESS 11/03/2012 Patient Education: Patient Medication Summary Completed 11/03/2012 Appointment: Xiomara Rodriguez WPtel: [address] [place] [address] ACUTE ILLNESS 05/04/2012 Patient Education: Patient Medication Summary Completed 05/04/2012 Visit Plan: pt reports that she always g ets yeast infections. Discussed that the antifungal can cause problems/increased bleeding with Coumdin. Pt. will start with probiotics and only take the Diflucan if needed. Cefdinir. 10/11/2011 Appointment: Xiomara Rodriguez WPtel: [address] [place] [address] ACUTE ILLNESS 10/11/2011 Patient Education: Patient Medication Summary Completed 10/11/2011 Appointment: Xiomara Rodriguez WPtel: [address] [place] [address] FOLLOW UP 06/23/2011 Patient Education: Patient Medication Summary Completed 06/23/2011 Visit Plan: Will prescribe an antibiotic and diflucan. Pt. reports that she frequently gets yeast infection. Discussed that she will notify if any symptoms persist. Pt. reports that her relatives have recently been hospitalized with pneumonia. 06/14/2011 Appointment: Xiomara Rodriguez WPtel: [address] [place] [address] ACUTE ILLNESS 06/14/2011 Patient Education: Patient Medication Summary Completed 06/14/2011 Visit Plan: sample of veramyst. Cefuroxi me axetil. Pt. will focus on hydration and rest. Discussed comfort measures and monitoring for worsening symptoms. 12/02/2010 Appointment: Xiomara Rodriguez WPtel: [address] [place], [place] [phone] ACUTE ILLNESS 12/02/2010 Patient Education: Patient Medication Summary Completed 12/02/2010 Visit Plan: Change HCTZ to spironolacton e will start zocor in 1 mo BP med in 1mo 11/12/2010 Appointment: Jessica Gee WPtel: [address] [place] [address] FOLLOW UP 11/12/2010 Patient Education: Patient Medication Summary Completed 11/12/2010 Appointment: Jessica Gee WPtel: [address] [place] [address] BP CHECK 10/26/2010 Patient Education: Patient Medication Summary Completed 10/26/2010 Visit Plan: Continue Toprol at bedtime A dd HCTZ in AM BP check in 2wks Fasting lab with next PT/INR 10/13/2010 Appointment: Jessica Gee WPtel: [address] [place] [address] FOLLOW UP 10/13/2010 Patient Education: Patient Medication Summary Completed 10/13/2010 Visit Plan: Cont abx. Fwup with surgery as scheduled 06/24/2010 Appointment: Jessica Gee WPtel: [address] [place] [address] Hospital Follow Up 06/24/2010 Patient Education: Patient Medication Summary Completed 06/24/2010 Appointment: Jessica Gee WPtel: [address] [place] [address] Follow Up 06/22/2010 Visit Plan: pt is [...] to subside. 06/08/2010 Appointment: Xiomara Rodriguez WPtel: [address] [place] [address] ACUTE ILLNESS 06/08/2010 Patient Education: Patient Medication Summary Completed 06/08/2010 Appointment: Xiomara Rodriguez WPtel: [address] [place] [address] FOLLOW UP 06/01/2010 Appointment: Jessica Gee WPtel: [address] [place] [address] UA 05/29/2010 Patient Education: Patient Medication Summary Completed 05/29/2010 Appointment: Xiomara Rodriguez WPtel: [address] [place] [address] ACUTE ILLNESS 05/20/2010 Patient Education: Patient Medication Summary Completed 05/20/2010 Appointment: Jessica Gee WPtel: [address] [place] [address] BP CHECK 05/13/2010 Patient Education: Patient Medication Summary Completed 05/13/2010 Visit Plan: Increase Lisinopril hct to 2 0/12.5mg q AM Use atarax prn and routinely at bedtime and Medrol dose pack BP check in 3wks Pt defers stress test at this time 04/30/2010 Appointment: Jessica Gee WPtel: [address] [place] [address] ACUTE ILLNESS 04/30/2010 Patient Education: Patient Medication Summary Completed 04/30/2010 Appointment: Jessica Gee WPtel: [address] [place] [address] BP CHECK 02/27/2010 Patient Education: Patient Medication Summary Completed 02/27/2010 Visit Plan: Cont Toprol Add Altace 10mg QD Cont Wellbutrin Will likely add SSRI after BP stable BP check in 2wks 01/22/2010 Appointment: Jessica Gee WPtel: [address] [place] [address] ACUTE ILLNESS 01/22/2010 Patient Education: Patient Medication Summary Completed 01/22/2010 Referral: Rupa Raines WPtel: [address] [id number] [place] Referral Completed Referral: Neymar Alberts WPtel: [address] [facility] [place] Referral Initiated Instructions Comment . Tick [...] pulseox last week to compare to hillary britany, but she does sound diminished today Studies [...]
--- OUTSIDE RECORDS SUMMARY | 2019-09-10 03:01 | XMS REPORT | CCD ---
Author Author Nava Gee D.O. Organization [facility] Address [address] [place] [address] Phone Care Team Providers Care Neurodiagnostic Tech Name Role Phone Jessica Gee D.O., PP Unavailable CCM Unavailable Summary Purpose Interface Exchange Insurance Providers Payer name Policy type / Coverage type Covered constitution party ID Effective Begin Date Effective End Date Blue Cross Blue Shield Blue Cross/Blue Shield [id number] Unknown Family History Family History data not found Social History Social History Element Codes Description Effective Dates Tobacco history SNOMED CT: 517641886 Never smoker 10/13/2010 Allergies, Adverse Reactions, Alerts [...] findings ICD-9: V70.0 ICD-10: Z00.00 12/16/2017 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 ICD-9: V58.6 1 [...] Start Date Stop Date Status Fill Instructions Toprol XL 200 mg tablet,extended release RxNorm: 817486 1 Table t(s) Oral QD 06/15/2019 12/11/2019 Active Toprol XL 200 mg tablet,extended release RxNorm: 453962 1 Table t(s) Oral QD 06/13/2019 06/14/2019 Inactive warfarin 6 mg tablet RxNorm: 748925 1 Tablet(s) Oral QD 06/04/2019 No Stop Date Active metformin ER 500 mg tablet,extended release 24 hr RxNorm: 86 0975 TAKE 1 TABLET BY MOUTH TWICE DAILY 05/29/2019 07/27/2019 Active Jardiance 25 mg tablet RxNorm: 1385120 1 Tablet(s) Oral QD 05/09/19 20 05/23/2019 Inactive Jardiance 25 mg tablet RxNorm: 3843911 1 Tablet(s) Oral QAM 020 09/06/2019 Active Jardiance 10 mg tablet RxNorm: 9531130 1 Tablet(s) Oral QD 05/09/19 No Stop Date Active warfarin 1 mg tablet RxNorm: 547078 1 Tablet(s) Oral on Tue and with 6mg tablet (total 7mg) 05/09/2019 No Stop Date Active warfarin 6 mg tablet RxNorm: 096850 1 Tablet(s) Oral QD then on Tue/ take along with Warfarin 1mg (7mg) 05/09/2019 06/03/2019 Inactive warfarin 5 mg tablet RxNorm: 363493 1 Tablet(s) Oral QD 05/02/2019 Inactive warfarin 1 mg tablet RxNorm: 035630 TAKE 1 TABLET BY [facility] ONCE DAILY. TAKE AN ADDITIONAL TABLET ON TUESDAY AND Tuesday05/02/2019 05/08/2019 Inactiv e Coumadin 5 mg tablet RxNorm: 045851 TAKE 1 TABLET BY MOUTH ONCE DAILY 04/02/2019 05/02/2019 Inactive celecoxib 200 mg capsule RxNorm: 664946 TAKE 1 CAPSULE BY MOUTH TWICE DAILY 03/20/2019 06/17/2019 Active pravastatin 40 mg tablet RxNorm: 392668 TAKE 1 TABLET BY MOUTH ONCE DAILY 03/19/2019 06/16/2019 Active metformin ER 500 mg tablet,extended release 24 hr RxNorm: 86 0975 TAKE 1 TABLET BY MOUTH TWICE DAILY 03/19/2019 05/17/2019 Inactive Coumadin 5 mg tablet RxNorm: 063061 TAKE 1 TABLET BY MOUTH ONCE DAILY 02/28/2019 04/01/2019 Inactive warfarin 1 mg tablet RxNorm: 070711 TAKE 1 TABLET BY [facility]TH ONCE DAILY. TAKE AN ADDITIONAL TABLET ON TUESDAY AND Tuesday02/28/2019 05/01/2019 Inactiv e omeprazole 40 mg capsule,delayed release RxNorm: 571722 TAKE 1 CAPSULE BY MOUTH TWICE DAILY 02/19/2019 No Stop Date Active metformin ER 500 mg tablet,extended release 24 hr RxNorm: 86 0975 1 Tablet(s) PO BID 02/19/2019 03/18/2019 Inactive metformin ER 500 mg tablet,extended release 24 hr RxNorm: 86 0975 1 Tablet(s) PO BID 01/15/2019 02/13/2019 Inactive alprazolam 0.25 mg tablet RxNorm: 994080 1 Tablet(s) Oral prior to flight 01/03/2019 No Stop Date Active omeprazole 40 mg capsule,delayed release RxNorm: 522265 TAKE 1 CAPSULE BY MOUTH TWICE DAILY 12/20/2018 02/18/2019 Inactive metformin ER 500 mg tablet,extended release 24 hr RxNorm: 86 0975 1 Tablet(s) PO BID 12/11/2018 01/09/2019 Inactive pravastatin 40 mg tablet RxNorm: 332792 TAKE 1 TABLET BY MOUTH ONCE DAILY 12/11/2018 03/18/2019 Inactive Coumadin 5 mg tablet RxNorm: 614075 1 Tablet(s) PO QD 11/27/201809/2018 Inactive metformin ER 500 mg tablet,extended release 24 hr RxNorm: 86 0975 1 Tablet(s) PO BID 10/02/2018 11/30/2018 Inactive warfarin 1 mg tablet RxNorm: 623201 TAKE 1 TABLET BY [facility] ONCE DAILY. TAKE AN ADDITIONAL TABLET ON TUESDAY AND Tuesday10/02/2018 02/27/2019 Inactiv e Bactrim DS 800 mg-160 mg tablet RxNorm: 618233 1 Tablet(s) PO BID 0 09/27/2018 10/03/2018 Inactive warfarin 5 mg tablet RxNorm: 452931 1 Tablet(s) PO QD 09/27/201810/2018 Inactive Toprol XL 200 mg tablet,extended release RxNorm: 959732 1 Table t(s) PO QD 09/18/2018 06/12/2019 Inactive omeprazole 40 mg capsule,delayed release RxNorm: 419483 TAKE 1 CAPSULE BY MOUTH TWICE DAILY 09/11/2018 12/19/2018 Inactive Coumadin 5 mg tablet RxNorm: 040957 1 Tablet(s) PO QD 08/21/201811/2018 Inactive metformin ER 500 mg tablet,extended release 24 hr RxNorm: 86 0975 1 Tablet(s) PO BID 07/31/2018 09/28/2018 Inactive omeprazole 40 mg capsule,delayed release RxNorm: 039498 TAKE 1 CAPSULE BY MOUTH TWICE DAILY 06/27/2018 09/10/2018 Inactive metformin ER 500 mg tablet,extended release 24 hr RxNorm: 86 0975 Tablet(s) 1 Tablet(s) PO BID 06/27/2018 07/31/2018 Inactive Toprol XL 200 mg tablet,extended release RxNorm: 173675 1 Table t(s) PO QD 06/14/2018 09/17/2018 Inactive Coumadin 5 mg tablet RxNorm: 258644 1 Tablet(s) PO QD 06/14/201804/2018 Inactive metformin ER 500 mg tablet,extended release 24 hr RxNorm: 86 0975 Tablet(s) 1 Tablet(s) PO BID 05/22/2018 06/26/2018 Inactive Coumadin 5 mg tablet RxNorm: 790424 TAKE 1 TABLET BY MOUTH ONCE DAILY 05/11/2018 06/14/2018 Inactive Lovenox 40 mg/0.4 mL subcutaneous syringe RxNorm: 235769 40 Mil ligram(s) SQ QD 05/05/2018 09/26/2018 Inactive amitriptyline 25 mg tablet RxNorm: 517488 1 Tablet(s) PO QHS fo r sleep/HAs 04/24/2018 10/20/2018 Inactive edupristine Ultra Test strips RxNorm: Test blood sugar sigrid y (Dx:E11.65) 04/24/2018 No Stop Date Active celecoxib 200 mg capsule RxNorm: 528313 1 Capsule(s) PO BID 019 10/20/2018 Inactive Celebrex 200 mg capsule RxNorm: 655834 TAKE 1 CAPSULE BY MOUTH ONCE DAILY 04/19/2018 04/23/2018 Inactive warfarin 1 mg tablet RxNorm: 051767 1 Tablet(s) PO QD a nd additional tablet on Tue & 04/14/2018 10/01/2018 Inactive Toprol XL 200 mg tablet,extended release RxNorm: 920598 TAKE 1 TABLET BY MOUTH ONCE DAILY 04/11/2018 06/14/2018 Inactive metformin ER 500 mg tablet,extended release 24 hr RxNorm: 86 0975 Tablet(s) 1 Tablet(s) PO BID 03/17/2018 05/21/2018 Inactive Coumadin 5 mg tablet RxNorm: 159075 TAKE 1 TABLET BY MOUTH ONCE DAILY 03/15/2018 05/10/2018 Inactive Lovenox 40 mg/0.4 mL subcutaneous syringe RxNorm: 223149 40 Mil ligram(s) SQ QD 01/27/2018 04/11/2018 Inactive omeprazole 40 mg capsule,delayed release RxNorm: 343418 TAKE 1 CAPSULE BY MOUTH TWICE DAILY 01/23/2018 06/26/2018 Inactive pravastatin 40 mg tablet RxNorm: 810965 TAKE 1 TABLET BY MOUTH ONCE DAILY 01/23/2018 12/10/2018 Inactive metformin ER 500 mg tablet,extended release 24 hr RxNorm: 86 0975 Tablet(s) 1 Tablet(s) PO BID 01/16/2018 01/15/2018 Inactive Toprol XL 200 mg tablet,extended release RxNorm: 770409 TAKE 1 TABLET BY MOUTH ONCE DAILY 01/16/2018 04/10/2018 Inactive Coumadin 5 mg tablet RxNorm: 099014 TAKE 1 TABLET BY MOUTH ONCE DAILY 01/06/2018 03/14/2018 Inactive Celebrex 200 mg capsule RxNorm: 193946 1 Capsule(s) PO BID 12/28/19 18 03/26/2018 Inactive metformin ER 500 mg tablet,extended release 24 hr RxNorm: 86 0975 1 Tablet(s) PO BID Needs APPT 12/21/2017 01/16/2018 Inactive omeprazole 40 mg capsule,delayed release RxNorm: 520172 TAKE 1 CAPSULE BY MOUTH TWICE DAILY 11/02/2017 01/22/2018 Inactive Celebrex 200 mg capsule RxNorm: 836363 1 Capsule(s) PO QD 11/01/2017 12/26/2017 Inactive Coumadin 5 mg tablet RxNorm: 739211 Tablet(s) TAKE ONE TABLET BY MOUTH ONCE DAILY. 10/31/2017 12/29/2017 Inactive warfarin 1 mg tablet RxNorm: 865668 1 Tablet(s) PO QD 10/31/201703/22 Inactive spironolactone 25 mg tablet RxNorm: 408218 TAKE TWO TAB LETS BY MOUTH IN THE MORNING 10/31/2017 04/23/2018 Inactive metformin ER 500 mg tablet,extended release 24 hr RxNorm: 86 0975 1 Tablet(s) PO BID Needs updated fasting lab 10/20/2017 12/21/2017 Inactive Medrol (Dale) 4 mg tablets in a dose pack RxNorm: 903554 Tablet(s) PO take as directed 10/12/2017 12/15/2017 Inactive Celebrex 200 mg capsule RxNorm: 690908 1 Capsule(s) PO QD 10/03/2017 10/02/2017 Inactive spironolactone 25 mg tablet RxNorm: 865341 TAKE TWO TAB LETS BY MOUTH IN THE MORNING 09/19/2017 10/30/2017 Inactive Zithromax Z-Dale 250 mg tablet RxNorm: 748763 Tablet(s) PO take as directed 09/16/2017 10/11/2017 Inactive Medrol (Dale) 4 mg tablets in a dose pack RxNorm: 271027 Tablet(s) take as directed PO 09/16/2017 10/11/2017 Inactive doxycycline hyclate 100 mg tablet RxNorm: 2862856 1 Tablet(s) PO BI D 09/16/2017 09/15/2017 Inactive doxycycline hyclate 100 mg tablet RxNorm: 8092413 1 Tablet(s) PO BI D 09/16/2017 09/25/2017 Inactive Tessalon Perles 100 mg capsule RxNorm: 125514 1 Capsule(s) PO T ID as needed 09/16/2017 12/15/2017 Inactive warfarin 1 mg tablet RxNorm: 941735 1 Tablet(s) PO QD 09/06/201710/19 Inactive Coumadin 5 mg tablet RxNorm: 543105 Tablet(s) TAKE ONE TABLET BY MOUTH ONCE DAILY. 09/06/2017 10/31/2017 Inactive Toprol XL 200 mg tablet,extended release RxNorm: 724679 1 Table t(s) PO QD 2017 01/02/2018 Inactive warfarin 1 mg tablet RxNorm: 301570 1 Tablet(s) PO QD DUE FOR L ABS AUGUST 12 08/29/2017 09/06/2017 Inactive Coumadin 5 mg tablet RxNorm: 213144 Tablet(s) TAKE ONE TABLET BY MOUTH ONCE DAILY. DUE FOR PT/INR AUGUST 12 08/29/2017 09/06/2017 Inactive Coumadin 5 mg tablet RxNorm: 411868 Tablet(s) TAKE ONE TABLET BY MOUTH ONCE DAILY. DUE FOR PT/INR AUGUST 12 08/01/2017 08/29/2017 Inactive warfarin 1 mg tablet RxNorm: 980643 1 Tablet(s) PO QD DUE FOR L ABS AUGUST 12 08/01/2017 08/29/2017 Inactive scopolamine 1 mg over 3 days transdermal patch RxNorm: 34379 2 1 TD take off in 72 hours. 08/01/2017 12/26/2017 Inactive pravastatin 40 mg tablet RxNorm: 796499 Tablet(s) TAKE ONE TABLET BY MOUTH ONCE DAILY 07/07/2017 01/02/2018 Inactive Coumadin 5 mg tablet RxNorm: 839466 Tablet(s) TAKE ONE TABLET BY MOUTH ONCE DAILY. DUE FOR PT/INR. 06/29/2017 08/01/2017 Inactive warfarin 1 mg tablet RxNorm: 966438 1 Tablet(s) PO QD 06/29/201707/19 Inactive Coumadin 5 mg tablet RxNorm: 644023 TAKE ONE TABLET BY MOUTH ONCE DAILY. DUE FOR PT/INR. 05/30/2017 06/29/2017 Inactive omeprazole 40 mg capsule,delayed release RxNorm: 189854 1 Capsu le(s) PO BID 05/30/2017 08/27/2017 Inactive Celebrex 200 mg capsule RxNorm: 593948 1 Capsule(s) PO QD 05/23/2017 10/03/2017 Inactive metformin ER 500 mg tablet,extended release 24 hr RxNorm: 86 0975 TAKE ONE TABLET BY MOUTH TWICE DAILY 05/20/2017 10/20/2017 Inactive Coumadin 5 mg tablet RxNorm: 755280 1 Tablet(s) PO QD due for PT/IN R 04/25/2017 05/24/2017 Inactive warfarin 1 mg tablet RxNorm: 860140 1 Tablet(s) PO QD due for l abs this week 03/16/2017 06/29/2017 Inactive omeprazole 40 mg capsule,delayed release RxNorm: 627280 1 Capsu le(s) PO BID 03/16/2017 05/30/2017 Inactive Celebrex 200 mg capsule RxNorm: 110605 1 Capsule(s) PO BID as n eeded for pain 03/16/2017 05/22/2017 Inactive Coumadin 5 mg tablet RxNorm: 853319 1 Tablet(s) PO QD due for PT/IN R 03/16/2017 04/14/2017 Inactive Celebrex 200 mg capsule RxNorm: 324941 1 Capsule(s) PO BID as n eeded for pain 02/09/2017 03/15/2017 Inactive Toprol XL 200 mg tablet,extended release RxNorm: 031283 1 Table t(s) PO QD 02/08/2017 2017 Inactive Celebrex 200 mg capsule RxNorm: 772431 1 Capsule(s) PO BID as n eeded for pain 01/14/2017 02/08/2017 Inactive omeprazole 40 mg capsule,delayed release RxNorm: 459053 1 Capsu le(s) PO BID 01/12/2017 03/16/2017 Inactive Coumadin 5 mg tablet RxNorm: 893430 1 Tablet(s) PO QD 12/15/201602/19 Inactive warfarin 1 mg tablet RxNorm: 889416 1 Tablet(s) PO QD 12/15/201602/19 Inactive metformin ER 500 mg tablet,extended release 24 hr RxNorm: 86 0975 Tablet(s) TAKE ONE TABLET BY MOUTH TWICE DAILY 11/29/2016 02/26/2017 Inactive omeprazole 40 mg capsule,delayed release RxNorm: 449584 1 Capsu le(s) PO BID 11/29/2016 12/28/2016 Inactive pravastatin 40 mg tablet RxNorm: 146723 Tablet(s) TAKE ONE TABLET BY MOUTH ONCE DAILY 11/19/2016 07/07/2017 Inactive omeprazole 40 mg capsule,delayed release RxNorm: 240370 1 Capsu le(s) PO BID 10/19/2016 10/18/2016 Inactive omeprazole 40 mg capsule,delayed release RxNorm: 014438 1 Capsu le(s) PO BID 10/19/2016 11/17/2016 Inactive pantoprazole 40 mg tablet,delayed release RxNorm: 056463 1 Tabl et(s) PO QD 09/30/2016 10/18/2016 Inactive pantoprazole 40 mg tablet,delayed release RxNorm: 940105 1 Tabl et(s) PO QD 09/30/2016 09/29/2016 Inactive Zofran ODT 4 mg disintegrating tablet RxNorm: 408304 1 Tablet(s) PO Q4H as needed for nausea 09/15/2016 01/02/2017 Inactive Coumadin 5 mg tablet RxNorm: 846935 1 Tablet(s) PO QD 09/14/201611/20 Inactive warfarin 1 mg tablet RxNorm: 193828 1 Tablet(s) PO QD 09/14/201611/20 Inactive spironolactone 25 mg tablet RxNorm: 919975 2 Tablet(s) PO QAM 09/0301/02/2017 Inactive Wellbutrin XL 300 mg 24 hr tablet, extended release RxNorm: 293173 TAKE ONE TABLET BY MOUTH ONCE DAILY 08/26/2016 12/26/2017 Inactive Toprol XL 200 mg tablet,extended release RxNorm: 622600 1 Table t(s) PO QD 07/28/2016 02/08/2017 Inactive metformin ER 500 mg tablet,extended release 24 hr RxNorm: 86 0975 Tablet(s) TAKE ONE TABLET BY MOUTH TWICE DAILY 07/15/2016 11/29/2016 Inactive cyclobenzaprine 5 mg tablet RxNorm: 393433 1 Tablet(s) PO QHS f or spasm 07/08/2016 08/06/2016 Inactive Celebrex 200 mg capsule RxNorm: 1 Capsule(s) PO BID 07/08/2016 Inactive spironolactone 25 mg tablet RxNorm: 487152 1 Tablet(s) PO QAM 07/0609/02/2016 Inactive Wellbutrin XL 300 mg 24 hr tablet, extended release RxNorm: 234112 TAKE ONE TABLET BY MOUTH ONCE DAILY 06/15/2016 07/14/2016 Inactive Coumadin 5 mg tablet RxNorm: 325807 1 Tablet(s) PO QD 06/08/201608/20 Inactive warfarin 1 mg tablet RxNorm: 298607 1 Tablet(s) PO QD 06/08/201608/20 Inactive Toprol XL 200 mg tablet,extended release RxNorm: 676596 TAKE ONE TABLET BY MOUTH ONCE DAILY 04/26/2016 07/28/2016 Inactive pravastatin 40 mg tablet RxNorm: 542805 TAKE ONE TABLET BY MOUT H ONCE DAILY 04/19/2016 10/15/2016 Inactive Coumadin 5 mg tablet RxNorm: 696054 1 Tablet(s) PO QD 03/09/201605/19 Inactive warfarin 1 mg tablet RxNorm: 611336 1 Tablet(s) PO QD 03/09/201605/19 Inactive metformin ER 500 mg tablet,extended release 24 hr RxNorm: 86 0975 TAKE ONE TABLET BY MOUTH TWICE DAILY 02/25/2016 07/15/2016 Inactive spironolactone 25 mg tablet RxNorm: 992914 TAKE ONE TAB LET BY MOUTH ONCE DAILY IN THE MORNING 02/25/2016 07/06/2016 Inactive prednisone 20 mg tablet RxNorm: 657167 1 Tablet(s) PO QAM 02/16/2016 02/20/2016 Inactive cefdinir 300 mg capsule RxNorm: 585933 2 Capsule(s) PO QD 02/16/2016 02/25/2016 Inactive Toprol XL 200 mg tablet,extended release RxNorm: 052822 TAKE ONE TABLET BY MOUTH ONCE DAILY 01/26/2016 04/24/2016 Inactive Aciphex 20 mg tablet,delayed release RxNorm: 267832 1 Tablet(s) PO BID 12/24/2015 09/29/2016 Inactive Omeprazole and Pepci d have not helped. Coumadin 5 mg tablet RxNorm: 180171 1 Tablet(s) PO QD 12/10/201502/19 Inactive Coumadin 5 mg tablet RxNorm: 452823 1 Tablet(s) PO QD 12/08/201511/20 Inactive Toprol XL 200 mg tablet,extended release RxNorm: 683691 TAKE ONE TABLET BY MOUTH ONCE DAILY 11/20/2015 01/18/2016 Inactive warfarin 1 mg tablet RxNorm: 162105 1 Tablet(s) PO QD 11/03/201502/19 Inactive pravastatin 40 mg tablet RxNorm: 912876 Tablet(s) TAKE ONE TABLET BY MOUTH ONCE DAILY 10/20/2015 01/17/2016 Inactive pravastatin 40 mg tablet RxNorm: 103028 TAKE ONE TABLET BY MOUT H ONCE DAILY 10/20/2015 10/19/2015 Inactive metformin ER 500 mg tablet,extended release 24 hr RxNorm: 86 0975 TAKE ONE TABLET BY MOUTH TWICE DAILY 10/03/2015 12/31/2015 Inactive Toprol XL 200 mg tablet,extended release RxNorm: 161273 TAKE ONE TABLET BY MOUTH ONCE DAILY 09/17/2015 11/15/2015 Inactive Coumadin 5 mg tablet RxNorm: 158246 1 Tablet(s) PO QD 09/02/201511/19 Inactive Wellbutrin XL 300 mg 24 hr tablet, extended release RxNorm: 696557 TAKE ONE TABLET BY MOUTH ONCE DAILY 08/01/2015 10/29/2015 Inactive Pepcid 20 mg tablet RxNorm: 728213 1 Tablet(s) PO BID as needed 05/24/2017 Inactive warfarin 1 mg tablet RxNorm: 484571 TAKE ONE TABLET BY MOUTH ON CE DAILY 07/08/2015 11/03/2015 Inactive pravastatin 40 mg tablet RxNorm: 527138 1 Tablet(s) PO QD 07/08/2015 10/05/2015 Inactive spironolactone 25 mg tablet RxNorm: 107170 TAKE ONE TAB LET BY MOUTH ONCE DAILY IN THE MORNING 06/13/2015 09/10/2015 Inactive Coumadin 5 mg tablet RxNorm: 843641 1 Tablet(s) PO QD 06/05/201508/19 Inactive Wellbutrin XL 300 mg 24 hr tablet, extended release RxNorm: 342221 TAKE ONE TABLET BY MOUTH ONCE DAILY 05/16/2015 09/26/2018 Inactive Wellbutrin XL 300 mg 24 hr tablet, extended release RxNorm: 550534 TAKE ONE TABLET BY MOUTH ONCE DAILY 05/16/2015 06/14/2015 Inactive metformin ER 500 mg tablet,extended release 24 hr RxNorm: 86 0975 TAKE ONE TABLET BY MOUTH TWICE DAILY 05/16/2015 08/13/2015 Inactive pravastatin 40 mg tablet RxNorm: 937772 1 Tablet(s) PO QD 04/10/2015 07/07/2015 Inactive Aciphex 20 mg tablet,delayed release RxNorm: 872836 1 Tablet(s) PO BID 03/07/2015 09/02/2015 Inactive Omeprazole and Pepci d have not helped. Toprol XL 200 mg tablet,extended release RxNorm: 942770 1 Table t(s) PO QD 03/05/2015 08/31/2015 Inactive Aciphex 20 mg tablet,delayed release RxNorm: 608567 1 Tablet(s) PO QD 03/04/2015 03/06/2015 Inactive Omeprazole and Pepci d have not helped. Coumadin 5 mg tablet RxNorm: 978091 1 Tablet(s) PO QD 02/28/201511/2015 Inactive Aciphex 20 mg tablet,delayed release RxNorm: 693807 1 Tablet(s) PO BID 02/11/2015 03/03/2015 Inactive Omeprazole and Pepci d have not helped. metformin ER 500 mg tablet,extended release 24 hr RxNorm: 86 0975 1 Tablet(s) PO BID 01/10/2015 04/09/2015 Inactive pravastatin 40 mg tablet RxNorm: 200180 1 Tablet(s) PO QD 01/06/2015 04/05/2015 Inactive Wellbutrin XL 300 mg 24 hr tablet, extended release RxNorm: 815018 TAKE ONE TABLET BY MOUTH ONCE DAILY 12/19/2014 02/16/2015 Inactive amoxicillin 500 mg capsule RxNorm: 375731 2 Capsule(s) PO BID 12/0612/15/2014 Inactive Flonase 50 mcg/actuation nasal spray,suspension RxNorm: 8963 23 2 [place] each nostril NASAL QD 12/06/2014 03/05/2015 Inactive Coumadin 5 mg tablet RxNorm: 422004 1 Tablet(s) PO QD 11/28/201410/2014 Inactive spironolactone 25 mg tablet RxNorm: 931724 1 Tablet(s) PO QAM 11/2602/23/2015 Inactive Coumadin 5 mg tablet RxNorm: 268340 1 Tablet(s) PO QD 1 Tablet(s) PO QD- NEED TO CHECK LABS 10/30/2014 11/28/2014 Inactive warfarin 1 mg tablet RxNorm: 819835 1 Tablet(s) PO QD 10/30/201409/2015 Inactive Aciphex 20 mg tablet,delayed release RxNorm: 925675 1 Tablet(s) PO QD 10/02/2014 02/10/2015 Inactive Omeprazole and Pepci d have not helped. Coumadin 5 mg tablet RxNorm: 511359 1 Tablet(s) PO QD 1 Tablet(s) PO QD- NEED TO CHECK LABS 09/30/2014 10/30/2014 Inactive pravastatin 40 mg tablet RxNorm: 402874 1 Tablet(s) PO QD 09/25/2014 01/06/2015 Inactive warfarin 1 mg tablet RxNorm: 050927 1 Tablet(s) PO QD T [place] ONE TABLET BY MOUTH DIRECTED ON MON AND THUR 08/28/2014 10/29/2014 Inactive metformin ER 500 mg tablet,extended release 24 hr RxNorm: 86 0975 1 Tablet(s) PO BID 08/28/2014 01/10/2015 Inactive amoxicillin 875 mg tablet RxNorm: 706627 1 Tablet(s) PO BID 015 08/18/2014 Inactive Toprol XL 200 mg tablet,extended release RxNorm: 367040 TAKE ONE TABLET BY MOUTH ONCE DAILY 07/22/2014 03/05/2015 Inactive Coumadin 5 mg tablet RxNorm: 192301 1 Tablet(s) PO QD 07/01/201409/18 Inactive amoxicillin 875 mg tablet RxNorm: 606551 1 Tablet(s) PO BID 015 06/30/2014 Inactive pravastatin 40 mg tablet RxNorm: 801885 1 Tablet(s) PO QD needs fasting labs 06/19/2014 09/25/2014 Inactive Coumadin 5 mg tablet RxNorm: 996864 1 Tablet(s) PO QD 1 Tablet(s) PO QD TAKE ONE TABLET BY MOUTH ONCE DAILY-need labs 05/28/2014 07/01/2014 Inactive warfarin 1 mg tablet RxNorm: 738940 1 Tablet(s) PO As Directed 05/1908/28/2014 Inactive pravastatin 40 mg tablet RxNorm: 317319 1 Tablet(s) PO QD needs fasting labs 05/14/2014 06/19/2014 Inactive metformin ER 500 mg tablet,extended release 24 hr RxNorm: 86 0975 1 Tablet(s) PO BID 04/25/2014 08/28/2014 Inactive spironolactone 25 mg tablet RxNorm: 333318 1 Tablet(s) PO QAM 04/2511/26/2014 Inactive Coumadin 5 mg tablet RxNorm: 871474 1 Tablet(s) PO QD 1 Tablet(s) PO QD TAKE ONE TABLET BY MOUTH ONCE DAILY 04/23/2014 05/28/2014 Inactive Coumadin 5 mg tablet RxNorm: 161003 1 Tablet(s) PO QD 1 Tablet(s) PO QD TAKE ONE TABLET BY MOUTH ONCE DAILY 03/22/2014 04/20/2014 Inactive Tessalon Perles 100 mg capsule RxNorm: 055919 1 Capsule(s) PO TID 0 03/22/2014 03/28/2014 Inactive cefdinir 300 mg capsule RxNorm: 615644 2 Capsule(s) PO QD 03/22/2014 03/31/2014 Inactive Medrol (Dale) 4 mg tablets in a dose pack RxNorm: 416427 Tablet(s) PO as directed 03/05/2014 08/08/2014 Inactive Coumadin 5 mg tablet RxNorm: 265473 1 Tablet(s) PO QD 1 Tablet(s) PO QD TAKE ONE TABLET BY MOUTH ONCE DAILY 02/19/2014 03/20/2014 Inactive pravastatin 40 mg tablet RxNorm: 998995 1 Tablet(s) PO QD 02/04/2014 05/14/2014 Inactive Coumadin 5 mg tablet RxNorm: 398572 1 Tablet(s) PO QD T [place] ONE TABLET BY MOUTH ONCE DAILY 01/21/2014 02/19/2014 Inactive Medrol (Dale) 4 mg tablets in a dose pack RxNorm: 928535 Tablet(s) PO as directed 01/18/2014 03/04/2014 Inactive cefdinir 300 mg capsule RxNorm: 546677 2 Capsule(s) PO QD 01/16/2014 01/25/2014 Inactive metformin ER 500 mg tablet,extended release 24 hr RxNorm: 86 0975 1 Tablet(s) PO BID 12/17/2013 04/25/2014 Inactive Wellbutrin SR 150 mg tablet,sustained-release RxNorm: 754772 1 Tablet(s) PO BID 11/30/2013 02/27/2014 Inactive spironolactone 25 mg tablet RxNorm: 845603 1 Tablet(s) PO QAM 10/2204/25/2014 Inactive Macrobid 100 mg capsule RxNorm: 590971 1 Capsule(s) PO BID 10/20/19 14 10/25/2013 Inactive Macrobid 100 mg capsule RxNorm: 239755 1 Capsule(s) PO BID 10/20/19 14 10/18/2013 Inactive Toprol XL 100 mg tablet,extended release RxNorm: 899965 1 Table t(s) PO QD 10/15/2013 01/15/2014 Inactive Toprol XL 200 mg tablet,extended release RxNorm: 254093 1 Table t(s) PO QD 10/02/2013 07/22/2014 Inactive Wellbutrin XL 300 mg 24 hr tablet, extended release RxNorm: 100331 1 Tablet(s) PO QD 09/28/2013 12/19/2014 Inactive Aciphex 20 mg tablet,delayed release RxNorm: 116059 1 Tablet(s) PO QD 08/29/2013 10/02/2014 Inactive Omeprazole and Pepci d have not helped. Coumadin 5 mg tablet RxNorm: 015308 1 Tablet(s) PO QD 08/14/201307/20 Inactive Coumadin 5 mg tablet RxNorm: 252583 1 Tablet(s) PO QD 08/14/201305/2013 Inactive pravastatin 40 mg tablet RxNorm: 072496 1 Tablet(s) PO QD 07/24/2013 02/04/2014 Inactive warfarin 1 mg tablet RxNorm: 900722 1 Tablet(s) PO QD T [place] ONE TABLET BY MOUTH DIRECTED ON MON AND THUR 07/09/2013 05/28/2014 Inactive warfarin 5 mg tablet RxNorm: 051702 1 Tablet(s) PO QD T [place] ONE TABLET BY MOUTH EVERY DAY 06/08/2013 07/07/2013 Inactive spironolactone 25 mg tablet RxNorm: 756759 1 Tablet(s) PO QAM 05/3010/15/2013 Inactive clindamycin 300 mg capsule RxNorm: 589990 2 Capsule(s) PO TID 04/1704/30/2013 Inactive warfarin 5 mg tablet RxNorm: 354121 1 Tablet(s) PO QD 03/12/201305/20 Inactive azithromycin 250 mg tablet RxNorm: 190046 2 Tablet(s) PO QD 013 03/07/2013 Inactive metformin ER 500 mg tablet,extended release 24 hr RxNorm: 86 0975 1 Tablet(s) PO BID 02/22/2013 12/17/2013 Inactive spironolactone 25 mg tablet RxNorm: 586835 1 Tablet(s) PO QAM 01/2205/30/2013 Inactive metformin ER 500 mg tablet,extended release 24 hr RxNorm: 86 0977 1 Tablet(s) PO BID 01/11/2013 02/21/2013 Inactive pravastatin 40 mg tablet RxNorm: 058899 1 Tablet(s) PO QD 01/11/2013 07/24/2013 Inactive warfarin 5 mg tablet RxNorm: 132391 1 Tablet(s) PO QD 01/04/201302/19 Inactive warfarin 1 mg tablet RxNorm: 812052 Tablet(s) PO TAKE O NE TABLET BY MOUTH DIRECTED ON MON AND THUR 12/14/2012 07/08/2013 Inactive scopolamine 1.5 mg 72 hr Transderm Patch RxNorm: 375026 TD Apply 1 patch behind ear every 72 hours, replace after 3 days. 11/08/2012 01/15/2014 Inacti ve Pepcid 20 mg tablet RxNorm: 221866 1 Tablet(s) PO BID as needed 01/31/2013 Inactive Famvir 500 mg tablet RxNorm: 801042 1 Tablet(s) PO Q8H 11/03/2012 Inactive Aciphex 20 mg tablet,delayed release RxNorm: 789125 1 Tablet(s) PO QD 11/03/2012 05/01/2013 Inactive Omeprazole and Pepci d have not helped. gabapentin 300 mg capsule RxNorm: 626909 Capsule(s) PO TID 11/04/19 13 01/15/2014 Inactive warfarin 5 mg tablet RxNorm: 683361 1 Tablet(s) PO QD 11/02/201212/19 Inactive Wellbutrin XL 300 mg 24 hr tablet, extended release RxNorm: 098971 1 Tablet(s) PO QD 10/17/2012 04/30/2013 Inactive pravastatin 40 mg tablet RxNorm: 280399 Tablet(s) PO TA KE ONE TABLET BY MOUTH EVERY DAY. NEED FASTING LABS 09/18/2012 01/10/2013 Inactive Toprol XL 200 mg tablet,extended release RxNorm: 858745 Tablet(s) PO TAKE ONE TABLET BY MOUTH EVERY DAY 09/08/2012 10/01/2013 Inactive warfarin 5 mg tablet RxNorm: 857464 1 Tablet(s) PO QD 08/31/201210/19 Inactive pravastatin 40 mg tablet RxNorm: 617675 1 Tablet(s) PO QD Needs fasting labs 08/18/2012 09/16/2012 Inactive TAKE ONE TABLET BY M OUTH EVERY DAY warfarin 1 mg tablet RxNorm: 173005 1 Tablet(s) PO As directed on Mon and Thurs 08/11/2012 12/13/2012 Inactive spironolactone 25 mg tablet RxNorm: 786232 1 Tablet(s) PO QAM 07/1110/08/2012 Inactive warfarin 5 mg tablet RxNorm: 871722 1 Tablet(s) PO QD 07/03/201208/19 Inactive Diflucan 100 mg tablet RxNorm: 486382 1 Tablet(s) PO QD 05/04/2012 Inactive Cipro 500 mg tablet RxNorm: 500471 1 Tablet(s) PO BID 05/04/201204/22 Inactive Aciphex 20 mg tablet,delayed release RxNorm: 640891 1 Tablet(s) PO QD 05/04/2012 07/02/2012 Inactive Omeprazole and Pepci d have not helped. warfarin 5 mg tablet RxNorm: 507334 1 Tablet(s) PO QD 05/02/201206/19 Inactive warfarin 5 mg tablet RxNorm: 626080 1 Tablet(s) PO QD 03/02/201204/21 Inactive Toprol XL 200 mg tablet,extended release RxNorm: 338167 1 Table t(s) PO QD 03/02/2012 05/30/2012 Inactive spironolactone 25 mg tablet RxNorm: 946288 1 Tablet(s) PO QAM 02/0707/11/2012 Inactive pravastatin 40 mg tablet RxNorm: 008115 Tablet(s) PO 01/31/201208/17 Inactive TAKE ONE TABLET BY MOUTH EVERY DAY pravastatin 40 mg tablet RxNorm: 379233 1 Tablet(s) PO QD 01/31/2012 08/18/2012 Inactive omeprazole 40 mg capsule,delayed release RxNorm: 638085 1 Capsule(s) PO QD for stomach 01/11/2012 11/02/2012 Inactive for stomach warfarin 5 mg tablet RxNorm: 284306 1 Tablet(s) PO QD 01/03/201202/18 Inactive warfarin 5 mg tablet RxNorm: 380148 1 Tablet(s) PO QD 12/03/201112/19 Inactive pravastatin 40 mg tablet RxNorm: 622374 1 Tablet(s) PO QD 11/25/2011 01/23/2012 Inactive cefdinir 300 mg Cap RxNorm: 971076 1 Capsule(s) PO BID 10/11/201103/2011 Inactive Culturelle 10 billion cell Cap RxNorm: 291605 1 Capsule(s) PO BID 0 10/11/2011 11/09/2011 Inactive Diflucan 100 mg Tab RxNorm: 228243 1 Tablet(s) PO QD 10/11/201110/19 Inactive Wellbutrin XL 300 mg 24 hr tablet, extended release RxNorm: 722299 1 Tablet(s) PO QD 09/14/2011 10/17/2012 Inactive pravastatin 40 mg tablet RxNorm: 312734 1 Tablet(s) PO QD 08/25/2011 11/25/2011 Inactive Coumadin 5 mg tablet RxNorm: 250894 Tablet(s) PO Take as direct ed by doctor. 07/07/2011 12/03/2011 Inactive Singulair 10 mg Tab RxNorm: 343058 1 Tablet(s) PO QD al lergy medication. (Please try to be consistent in dosing) 06/23/2011 01/15/2014 Inactive Diflucan 100 mg Tab RxNorm: 472457 1 Tablet(s) PO QD 06/14/201107/02 Inactive cefdinir 300 mg Cap RxNorm: 150309 1 Capsule(s) PO BID 06/14/201106/2011 Inactive pravastatin 40 mg Tab RxNorm: 475048 1 Tablet(s) PO QD 05/25/201108/2011 Inactive warfarin 5 mg Tab RxNorm: 166721 Tablet(s) PO 05/25/2011 10/18/2011 In active TAKE ONE TABLET BY MOUTH EVERY DAY Toprol XL 200 mg tablet,extended release RxNorm: 558923 1 Table t(s) PO QD 03/05/2011 06/02/2011 Inactive spironolactone 25 mg tablet RxNorm: 183392 1 Tablet(s) PO QAM 02/2402/08/2012 Inactive omeprazole 40 mg capsule,delayed release RxNorm: 167266 1 Capsule(s) PO QD for stomach 01/06/2011 01/11/2012 Inactive for stomach warfarin 5 mg Tab RxNorm: 223450 1 Tablet(s) PO QD 12/17/2010 011 Inactive warfarin 5 mg Tab RxNorm: 225131 1 Tablet(s) PO QD 11/18/2010 011 Inactive spironolactone 25 mg Tab RxNorm: 350312 1 Tablet(s) PO QAM 11/13/19 11 02/24/2011 Inactive Coumadin 6 mg Tab RxNorm: 689748 1 Tablet(s) PO QD 10/28/2010 011 Inactive May have generic hydrochlorothiazide 25 mg Tab RxNorm: 750180 1 Tablet(s) PO QAM 11/11/2010 Inactive Wellbutrin XL 300 mg 24 hr Tab RxNorm: 448825 1 Tablet(s) PO QD 09/14/2011 Inactive Septra DS 800 mg-160 mg Tab RxNorm: 978592 1 Tablet(s) PO BID 06/0806/17/2010 Inactive Pyridium 100 mg Tab RxNorm: 4794086 1 Tablet(s) PO TID 06/08/2010 Inactive Wellbutrin XL 300 mg 24 hr Tab RxNorm: 531612 1 Tablet(s) PO QD 05/201007/15/2010 Inactive hydroxyzine 25 mg Tab RxNorm: 893153 1 Tablet(s) PO QID prn itching--take routinely at bedtime. (pt. may not refil at this time but later) 05/20/2010 10/10/2011 Inactive Zyrtec 10 mg Tab RxNorm: 2805029 1 Tablet(s) PO BID 05/20/20102010 Inactive Coumadin 1 mg Tab RxNorm: 142555 1 Tablet(s) PO 6mg M-F, 7mg S-S 11/16/2010 Inactive hydroxyzine 25 mg Tab RxNorm: 186245 1 Tablet(s) PO QID prn itching--take routinely at bedtime 04/30/2010 05/19/2010 Inactive Toprol XL 200 mg 24 hr Tab RxNorm: 833590 1 Tablet(s) PO QD 011 06/23/2010 Inactive lisinopril-hydrochlorothiazide 10 mg-12.5 mg Tab RxNorm: 197 885 1 Tablet(s) PO QD 04/20/2010 04/29/2010 Inactive omeprazole 40 mg Cap, Delayed Release RxNorm: 428533 1 Capsule(s) PO QD for stomach 04/20/2010 08/17/2010 Inactive lisinopril-hydrochlorothiazide 10 mg-12.5 mg Tab RxNorm: 197 885 Tablet(s) PO 1QDAM - TAKE ONE TABLET BY MOUTH EVERY DAY IN THE MORNING 03/09/2010 Inactive lisinopril-hydrochlorothiazide 10 mg-12.5 mg Tab RxNorm: 197 885 1 Tablet(s) PO QD 02/27/2010 04/20/2010 Inactive Wellbutrin XL 300 mg 24 hr Tab RxNorm: 876448 1 Tablet(s) PO QD 05/21/2010 Inactive lisinopril-hydrochlorothiazide 10 mg-12.5 mg Tab RxNorm: 197 885 1 Tablet(s) PO QD 01/28/2010 02/26/2010 Inactive omeprazole 40 mg Cap, Delayed Release RxNorm: 332363 1 Capsule(s) PO QD for stomach 01/22/2010 04/20/2010 Inactive Altace 10 mg Cap RxNorm: 538551 1 Capsule(s) PO QD for BP 01/22/2010 03/22/2010 Inactive Coumadin 6 mg Tab RxNorm: 732506 1 Tablet(s) PO QD May have generic 12/03/2009 05/01/2010 Inactive Coumadin 6 mg Tab RxNorm: 383761 1 Tablet(s) PO 12/01/2009 12/02/2009 Inactive Coumadin 1 mg Tab RxNorm: 192565 1 Tablet(s) PO QD 11/28/2009 010 Inactive Coumadin 1 mg Tab RxNorm: 081258 1 Tablet(s) PO QD 07/02/2009 010 Inactive lisinopril-hydrochlorothiazide 20 mg-12.5 mg Tab RxNorm: 197 886 2 Tablet(s) PO QAM No Start Date 10/12/2010 Inactive Zofran ODT 4 mg disintegrating tablet RxNorm: 730798 1 Tablet(s) PO Q6H as needed for nausea No Start Date 09/14/2016 Inactive Wellbutrin XL 300 mg 24 hr Tab RxNorm: 528556 1 Tablet(s) PO QD No Start Date 02/02/2010 Inactive alprazolam 0.25 mg tablet RxNorm: 452694 1 Tablet(s) PO prior t o flight No Start Date 05/24/2017 Inactive hydrocodone-acetaminophen 5 mg-500 mg Tab RxNorm: 518130 1-2 Tablet(s) PO Q4H as needed for pain No Start Date 12/02/2010 Inactive Toprol XL 100 mg 24 hr Tab RxNorm: 015128 1 Tablet(s) PO QD No Star t Date 10/14/2013 Inactive Celebrex 200 mg capsule RxNorm: 675128 1 Capsule(s) PO QD No Start Date 05/22/2017 Inactive Flexeril 10 mg tablet RxNorm: 759603 1 Tablet(s) PO TID No Start Da te 04/02/2019 Inactive scopolamine 1 mg over 3 days transdermal patch RxNorm: 25219 2 1 TD take off in 72 hours. No Start Date 07/31/2017 Inactive YelagoTouch Ultra Test strips RxNorm: Test blood sugar daily No S tart Date 04/23/2018 Inactive Medrol (Dale) 4 mg tablets in a dose pack RxNorm: 149510 Tablet(s) PO As directed No Start Date 01/15/2014 Inactive Coumadin 5 mg Tab RxNorm: 671705 1 Tablet(s) PO QD No Start Date 06/19 Inactive Pepcid 40 mg Tab RxNorm: 289889 1 Tablet(s) PO QD No Start Date 06/23 Inactive prednisone 10 mg Tab RxNorm: 816029 1 Tablet(s) PO BID No Start Date 06/23/2010 Inactive spironolactone 25 mg tablet RxNorm: 721708 1 Tablet(s) PO QAM No St art Date 09/26/2018 Inactive scopolamine 1.5 mg 72 hr Transderm Patch RxNorm: 777334 TD Apply 1 patch behind ear every 72 hours, replace after 3 days. No Start Date 11/07/2012 Inacti ve azithromycin 250 mg Tab RxNorm: 509816 Tablet(s) PO 2 t abs on day one and one tab on days 2-5. (antibiotic) No Start Date 10/10/2011 Inactive Medrol (Dale) 4 mg Tabs in a Dose Pack RxNorm: 091144 1 Tablet(s) PO as directed. (steroid pack) No Start Date 10/10/2011 Inactive Lovenox 40 mg/0.4 mL subcutaneous syringe RxNorm: 032410 40 Mil ligram(s) SQ QD No Start Date 05/04/2018 Inactive Celebrex 200 mg capsule RxNorm: 655840 1 Capsule(s) PO BID as n eeded for pain No Start Date 01/13/2017 Inactive warfarin 1 mg tablet RxNorm: 519189 1 Tablet(s) PO As directed on Tue and No Start Date 08/10/2012 Inactive cefuroxime axetil 500 mg Tab RxNorm: 521179 1 Tablet(s) PO BID No S tart Date 06/13/2011 Inactive Lovenox 40 mg/0.4 mL subcutaneous syringe RxNorm: 197226 40 Mil ligram(s) SQ QD No Start Date 01/26/2018 Inactive Coumadin 5 mg tablet RxNorm: 543322 1 Tablet(s) PO QD No Start Date 0 08/13/2013 Inactive Medrol (Dale) 4 mg tablets in a dose pack RxNorm: 097925 Tablet(s) PO as directed No Start Date 01/17/2014 Inactive Coumadin 6 mg tablet RxNorm: 806705 1 Tablet(s) PO QD No Start Date 0 06/20/2016 Inactive warfarin 5 mg tablet RxNorm: 740361 1 Tablet(s) PO QD No Start Date 0 12/02/2011 Inactive Medrol (Dale) 4 mg Tabs in a Dose Pack RxNorm: 113376 Tablet(s) PO as directed No Start Date 06/23/2010 Inactive Flonase 50 mcg/actuation nasal spray,suspension RxNorm: 8963 23 2 [place] NASAL BID No Start Date 12/05/2014 Inactive Pepcid 20 mg tablet RxNorm: 979203 1 Tablet(s) PO BID as needed No Start Date 11/02/2012 Inactive spironolactone 25 mg tablet RxNorm: 649582 1 Tablet(s) PO QAM No St art Date 04/02/2019 Inactive Medication Administered No Medication Administered data Immunizations No Immunization data Results Observation Observation Code Item Item Code Result Date S ervice Location MICROALBUMIN URINE RANDOM 74971 CREAT MG/D 139 MG/DL Unknown MICROALBUMIN URINE RANDOM 14927 CRE/100 1.39 G/L 12/20 Unknown Procedures Procedure Codes Date URINALYSIS NONAUTO W/O SCOPE CPT-4: 41143 09/27/2018 URINE CULTURE/ COLONY COUNT CPT-4: 64924 09/27/2018 URINALYSIS NONAUTO W/O SCOPE CPT-4: 16068 10/13/2017 URINE CULTURE/ COLONY COUNT CPT-4: 17289 10/13/2017 STREP A ASSAY W/OPTIC CPT-4: 35959 06/21/2016 STREP A ASSAY W/OPTIC CPT-4: 34503 06/24/2014 THER/PROPH/DIAG INJ SC/IM CPT-4: 84781 03/22/2014 METHYLPREDNISOLONE 40 MG INJ CPT-4: J1030 03/22/2014 TRIAMCINOLONE ACET INJ NOS CPT-4: J3301 03/22/2014 URINALYSIS NONAUTO W/O SCOPE CPT-4: 38828 10/19/2013 URINE CULTURE/ COLONY COUNT CPT-4: 21887 10/19/2013 CEFTRIAXONE SODIUM INJECTION CPT-4: J0696 03/02/2013 THER/PROPH/DIAG INJ SC/IM CPT-4: 64001 03/02/2013 CEFTRIAXONE SODIUM INJECTION CPT-4: J0696 03/01/2013 THER/PROPH/DIAG INJ SC/IM CPT-4: 39287 03/01/2013 THER/PROPH/DIAG INJ SC/IM CPT-4: 62034 03/01/2013 METHYLPREDNISOLONE 40 MG INJ CPT-4: J1030 03/01/2013 TRIAMCINOLONE ACET INJ NOS CPT-4: J3301 03/01/2013 MICROALBUMIN QUANTITATIVE CPT-4: 42478 01/11/2013 URINE CULTURE/ COLONY COUNT CPT-4: 62733 05/04/2012 URINALYSIS NONAUTO W/O SCOPE CPT-4: 30077 05/04/2012 URINE CULTURE/ COLONY COUNT CPT-4: 33187 05/29/2010 TRIAMCINOLONE ACET INJ NOS CPT-4: J3301 05/20/2010 METHYLPREDNISOLONE 40 MG INJ CPT-4: J1030 05/20/2010 THER/PROPH/DIAG INJ SC/IM CPT-4: 26421 05/20/2010 Vital Signs Date Vital 05/09/2019 Blood [...] 1: 134/78 Code: 8480-6 BMI: 35.1 Code: 25122-0 Heart Rate 1: 76 bpm Height: 5'9" Respiratory Rate: 20 bpm Temperature: 36 .6 (C) / 97.8 (F) Weight: 238 lbs 12/27/2017 Blood Pressure 1: 126/64 Code: 8480-6 BMI: 34.7 Code: 56237-5 Heart Rate 1: 72 bpm Height: 5'9" Respiratory Rate: 20 bpm Temperature: 36 .8 (C) / 98.2 (F) Weight: 235 lbs 10/12/2017 Blood Pressure 1: 142/80 Code: 8480-6 BMI: 35.1 Code: 69567-9 Heart Rate 1: 98 bpm Height: 5'9" Respiratory Rate: 22 bpm SpO2: 100% Tempera ture: 36.5 (C) / 97.7 (F) Weight: 238 lbs 09/16/2017 Blood Pressure 1: 136/82 Code: 8480-6 BMI: 34.1 Code: 30764-1 Heart Rate 1: 82 bpm Height: 5'9" Respiratory Rate: 18 bpm SpO2: 96% Tempera ture: 36.3 (C) / 97.3 (F) Weight: 231 lbs 05/25/2017 Blood Pressure 1: 122/82 Code: 8480-6 BMI: 32.3 Code: 68917-3 Heart Rate 1: 116 bpm Height: 5'9" Respiratory Rate: 20 bpm SpO2: 98% Tempera ture: 35.6 (C) / 96.1 (F) Weight: 219 lbs 01/03/2017 Blood Pressure 1: 126/78 Code: 8480-6 BMI: 33.4 Code: 13333-0 Heart Rate 1: 72 bpm Height: 5'9" Respiratory Rate: 20 bpm Temperature: 36 .8 (C) / 98.2 (F) Weight: 226 lbs 09/23/2016 Blood Pressure 1: 126/82 Code: 8480-6 BMI: 33.8 Code: 02813-9 Heart Rate 1: 80 bpm Height: 5'9" Respiratory Rate: 20 bpm SpO2: 97% Tempera ture: 36.8 (C) / 98.2 (F) Weight: 229 lbs 09/03/2016 Blood Pressure 1: 188/64 Code: 8480-6 Bl ood Pressure 2: 166/92 Code: 8480-6 BMI: 34.4 Code: 56716-0 Heart Rate 1: 66 bpm Height: 5'9" Res piratory Rate: 20 bpm SpO2: 98% Temperature: 35.7 (C) / 96.2 (F) Weight: 233 lbs 07/08/2016 Blood Pressure 1: 134/82 Code: 8480-6 Heart Rate 1: 64 bpm Height: 5'9" Respiratory Rate: 20 bpm SpO2: 97% Temperature: 36.6 (C) / 97.8 (F) Weight: 06/21/2016 Blood Pressure 1: 112/68 Code: 8480-6 BMI: 33.8 Code: 88746-5 Heart Rate 1: 64 bpm Height: 5'9" Respiratory Rate: 20 bpm SpO2: 95% Tempera ture: 36.3 (C) / 97.3 (F) Weight: 229 lbs 02/23/2016 Blood Pressure 1: 128/78 Code: 8480-6 BMI: 33.4 Code: 92395-3 Heart Rate 1: 74 bpm Height: 5'9" [...] 1: 122/80 Code: 8480-6 BMI: 32.2 Code: 34849-1 Heart Rate 1: 80 bpm Height: 5'9" Respiratory Rate: 20 bpm Temperature: 37 .0 (C) / 98.6 (F) Weight: 218 lbs 08/09/2014 Blood Pressure 1: 132/84 Code: 8480-6 BMI: 33.1 Code: 22304-9 Heart Rate 1: 72 bpm Height: 5'9" Respiratory Rate: 20 bpm Temperature: 36 .7 (C) / 98.0 (F) Weight: 224 lbs 06/24/2014 Blood Pressure 1: 132/80 Code: 8480-6 BMI: 32.8 Code: 39098-5 Heart Rate 1: 68 bpm Height: 5'9" Respiratory Rate: 20 bpm Temperature: 36 .4 (C) / 97.6 (F) Weight: 222 lbs 03/22/2014 Blood Pressure 1: 128/84 Code: 8480-6 BMI: 32.5 Code: 87428-1 Heart Rate 1: 78 bpm Height: 5'9" Respiratory Rate: 22 bpm Temperature: 36 .0 (C) / 96.8 (F) Weight: 220 lbs 03/05/2014 Blood Pressure 1: 124/78 Code: 8480-6 BMI: 31.9 Code: 14335-0 Heart Rate 1: 82 bpm Height: 5'9" Respiratory Rate: 20 bpm Temperature: 35 .8 (C) / 96.4 (F) Weight: 216 lbs 01/16/2014 Blood Pressure 1: 116/68 Code: 8480-6 BMI: 33.8 Code: 91555-0 Heart Rate 1: 72 bpm Height: 5'7" Respiratory Rate: 20 bpm Temperature: 36 .6 (C) / 97.9 (F) Weight: 216 lbs 05/10/2013 Blood Pressure 1: 124/86 Code: 8480-6 BMI: 34.3 Code: 43649-2 Heart Rate 1: 84 bpm Height: 5'7" [...] 1: 116/84 Code: 8480-6 BMI: 33.1 Code: 40692-6 Heart Rate 1: 64 bpm Height: 5'9" Respiratory Rate: 20 bpm Temperature: 36 .4 (C) / 97.6 (F) Weight: 224 lbs 01/11/2013 Blood Pressure 1: 126/84 Code: 8480-6 BMI: 35.3 Code: 89950-4 Heart Rate 1: 68 bpm Height: 5'9" Respiratory Rate: 20 bpm Temperature: 36 .7 (C) / 98.1 (F) Weight: 239 lbs 11/03/2012 Blood Pressure 1: 104/70 Code: 8480-6 BMI: 34.4 Code: 57530-7 Heart Rate 1: 72 bpm Height: 5'9" Respiratory Rate: 20 bpm Temperature: 36 .8 (C) / 98.3 (F) Weight: 233 lbs 05/04/2012 Blood Pressure 1: 124/74 Code: 8480-6 BMI: 33.7 Code: 29058-1 Heart Rate 1: 84 bpm Height: 5'9" Temperature: 36.3 (C) / 97.3 (F) Weight: 228 lbs 10/11/2011 Blood Pressure 1: 110/70 Code: 8480-6 BMI: 33.7 Code: 66471-0 Heart Rate 1: 64 bpm Height: 5'9" Temperature: 36.8 (C) / 98.3 (F) Weight: 228 lbs 06/23/2011 Blood Pressure 1: 114/70 Code: 8480-6 BMI: 33.4 Code: 29802-9 Heart Rate 1: 80 bpm Height: 5'9" Respiratory Rate: 20 bpm Temperature: 36 .7 (C) / 98.0 (F) Weight: 226 lbs 06/14/2011 Blood Pressure 1: 118/74 Code: 8480-6 BMI: 33.4 Code: 06292-3 Heart Rate 1: 80 bpm Height: 5'9" [...] 1: 126/82 Code: 8480-6 BMI: 32.6 Code: 02904-5 Heart Rate 1: 68 bpm Height: 5'9" [...] 1: 140/92 Code: 8480-6 BMI: 31.3 Code: 81150-8 Heart Rate 1: 60 bpm Height: 5'10" [...] upper back on 08/13/16 while camping around [place], [place]. Patient states is tender around tick [...] 01/22/2010 Encounters Encounter Performer Location Codes Date ([id number]) OFFICE/OUTPATIENT VISIT EST Diagnosis: Type 2 diabetes mellitus without complications[ICD10: E11.9] Jessica GEE [facility] CPT-4: 26297 05/09/2019 ([id number]) OFFICE/OUTPATIENT VISIT EST Diagnosis: Type 2 diabetes mellitus without complications[ICD10: E11.9] Diagnosis: Essential hypertension[ICD10: I10] Jessica [facility] CPT-4: 66583 04/03/2019 ([id number]) OFFICE/OUTPATIENT VISIT EST Diagnosis: Gastro-esophageal reflux disease without esophagitis[ICD10: K21.9] Diagnosis: Urinary tract infection, site not specified[ICD10: N39.0] Diagnosis: Ventral hernia without obstruction or gangrene[ICD10: K43.9] Jessica [facility] CPT-4: 65147 09/27/2018 ([id number]) OFFICE/OUTPATIENT VISIT EST Diagnosis: Essential (primary) hypertension[ICD10: I10] Diagnosis: Type 2 diabetes mellitus without complications[ICD10: E11.9] Diagnosis: Carpal tunnel syndrome, right upper limb[ICD10: G56.01] Diagnosis: Primary insomnia[ICD10: F51.01] Jessica [facility]EE [facility] CPT-4: 19863 04/24/2018 ([id number]) OFFICE/OUTPATIENT VISIT EST Diagnosis: Type 2 diabetes mellitus without complications[ICD10: E11.9] Diagnosis: Mixed hyperlipidemia[ICD10: E78.2] Diagnosis: Essential (primary) hypertension[ICD10: I10] Diagnosis: Pain in unspecified joint[ICD10: M25.50] Jessica [facility] CPT-4: 14441 12/27/2017 ([id number]) NURSE/OUTPATIENT VISIT EST Diagnosis: Hematuria, unspecified[ICD10: R31.9] Jessica GEE DO [facility] CPT-4: 00463 10/13/2017 ([id number]) OFFICE/OUTPATIENT VISIT EST Diagnosis: Pleurodynia[ICD10: R07.81] Sofi CAMPUZANO DO [facility] CPT-4: 44920 10/12/2017 ([id number]) OFFICE/OUTPATIENT VISIT EST Diagnosis: Acute bronchitis, unspecified[ICD10: J20.9] Sofi GEE DO [facility] CPT-4: 46550 09/16/2017 ([id number]) OFFICE/OUTPATIENT VISIT EST Diagnosis: Other specified postprocedural states[ICD10: Z98.890] Diagnosis: Cellulitis of neck[ICD10: L03.221] Diagnosis: Tachycardia, unspecified[ICD10: R00.0] Jessica BELTRAN SL[facility]oyd [facility] CPT-4: 59507 05/25/2017 ([id number]) OFFICE/OUTPATIENT VISIT EST Diagnosis: Lumbago with sciatica, right side[ICD10: M54.41] Diagnosis: Pain in unspecified joint[ICD10: M25.50] Jessica [facility] CPT-4: 22947 01/03/2017 ([id number]) OFFICE/OUTPATIENT VISIT EST Diagnosis: Bitten or stung by nonvenomous insect and other nonvenomous arthropods, subsequent encounter[ICD10: W57.XXXD] Diagnosis: Essential (primary) hypertension[ICD10: I10] Diagnosis: Low back pain[ICD10: M54.5] Jessica VO S. Lizz RENDER [facility] CPT-4: 10778 09/23/2016 OFFICE/OUTPATIENT VISIT EST Diagnosis: Bitten or stung by nonvenomous insect and other nonvenomous arthropods, initial encounter[ICD10: W57.XXXA] Diagnosis: Essential (primary) hypertension[ICD10: I10] Kaitlynn Mosley JESSICA GEE [facility] CPT-4: 26789 09/03/2016 ([id number]) OFFICE/OUTPATIENT VISIT EST Diagnosis: Low back pain[ICD10: M54.5] Diagnosis: Radiculopathy, lumbosacral region[ICD10: M54.17] Jessica GEE [facility] CPT-4: 15896 07/08/2016 ([id number]) OFFICE/OUTPATIENT VISIT EST Diagnosis: Acute pharyngitis, unspecified[ICD10: J02.9] Jessica GEE [facility] CPT-4: 43174 06/21/2016 ([id number]) OFFICE/OUTPATIENT VISIT EST Diagnosis: Cough[ICD10: R05] Diagnosis: Fever, unspecified[ICD10: R50.9] Janiya GEE [facility] CPT-4: 59505 02/23/2016 ([id number]) OFFICE/OUTPATIENT VISIT EST Diagnosis: Acute sinusitis, unspecified[ICD10: J01.90] Jessica GEE [facility] CPT-4: 31593 02/16/2016 OFFICE/OUTPATIENT VISIT EST Diagnosis: Type 2 diabetes mellitus without complications[ICD10: E11.9] Diagnosis: Gastro-esophageal reflux disease without esophagitis[ICD10: K21.9] Diagnosis: Ventral hernia without obstruction or gangrene[ICD10: K43.9] Suki GEE [facility] CPT-4: 72510 02/11/2015 OFFICE/OUTPATIENT VISIT EST 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] Diagnosis: Essential (primary) hypertension[ICD10: I10] Suki GEE DO [facility] CPT-4: 15871 01/28/2015 OFFICE/OUTPATIENT VISIT EST Diagnosis: SINUSITIS, ACUTE[ICD9: 461.9] Kaitlynn MENDENHALLQUELINE Monica GEE [facility] CPT-4: 46456 12/06/2014 ([id number]) OFFICE/OUTPATIENT VISIT EST Diagnosis: SINUSITIS, ACUTE[ICD9: 461.9] Kaitlynn VO Monica [facility] CPT-4: 77380 08/09/2014 ([id number]) OFFICE/OUTPATIENT VISIT EST Diagnosis: TONSILLITIS, ACUTE[ICD9: 463] Suki GEE DO [facility] CPT-4: 58060 06/24/2014 OFFICE/OUTPATIENT VISIT EST Diagnosis: SINUSITIS, ACUTE[ICD9: 461.9] Diagnosis: EUSTACHIAN TUBE DYSFUNCTION[ICD9: 381.81] Diagnosis: COUGH[ICD9: 786.2] Suki GEE DO [facility] CPT-4: 17464 03/22/2014 OFFICE/OUTPATIENT VISIT EST Diagnosis: Elbow pain, right[ICD9: 719.42] Suki GEE DO [facility] CPT-4: 69773 03/05/2014 OFFICE/OUTPATIENT VISIT EST Diagnosis: SINUSITIS, ACUTE[ICD9: 461.9] Jessica GEE DO [facility] CPT-4: 26293 01/16/2014 ([id number]) OFFICE/OUTPATIENT VISIT EST Diagnosis: GROSS HEMATURIA[ICD9: 599.71] Jessica GEE DO [facility] CPT-4: 69408 10/19/2013 ([id number]) OFFICE/OUTPATIENT VISIT EST Diagnosis: DM W/O COMPLICATION TYPE II[ICD9: 250.00] Diagnosis: HYPERLIPIDEMIA NEC/NOS[ICD9: 272.4] Jessica GEE DO [facility] CPT-4: 74749 05/10/2013 ([id number]) OFFICE/OUTPATIENT VISIT EST Diagnosis: SINUSITIS, ACUTE[ICD9: 461.9] Jessica GEE DO [facility] CPT-4: 25243 04/17/2013 OFFICE/OUTPATIENT VISIT EST Diagnosis: OTITIS MEDIA NOS[ICD9: 382.9] Diagnosis: COUGH[ICD9: 786.2] Suki GEE DO [facility] CPT-4: 79825 03/05/2013 OFFICE/OUTPATIENT VISIT EST Diagnosis: COUGH[ICD9: 786.2] Diagnosis: BRONCHITIS, ACUTE[ICD9: 466.0] Suki GEE DO [facility] CPT-4: 33536 03/02/2013 OFFICE/OUTPATIENT VISIT EST Diagnosis: COUGH[ICD9: 786.2] Diagnosis: OTITIS MEDIA NOS[ICD9: 382.9] Diagnosis: BRONCHITIS, ACUTE[ICD9: 466.0] Suki [facility] CPT-4: 85476 03/01/2013 OFFICE/OUTPATIENT VISIT EST Diagnosis: DM W/O COMPLICATION TYPE II, UNCONTROLLED[ICD9: 250.02] Jessica [facility] CPT-4: 72034 02/22/2013 ([id number]) PREV VISIT EST AGE 40-64 Diagnosis: DM W/O COMPLICATION TYPE II, UNCONTROLLED[ICD9: 250.02] Diagnosis: HYPERTENSION[ICD9: 401.9] Diagnosis: ROUTINE MEDICAL EXAM[ICD9: V70.0] Jessica [facility] CPT-4: 05720 01/11/2013 OFFICE/OUTPATIENT VISIT EST Diagnosis: HZ (HERPES ZOSTER)[ICD9: 053.9] Kaitlynn Mosley [facility] CPT-4: 01772 11/03/2012 OFFICE/OUTPATIENT VISIT EST Diagnosis: URINARY TRACT INFECTION[ICD9: 599.0] Diagnosis: GERD[ICD9: 530.81] Diagnosis: PHARYNGITIS, ACUTE[ICD9: 462] [facility] CPT-[facility]: 76325 05/04/2012 OFFICE/OUTPATIENT VISIT EST Diagnosis: COUGH[ICD9: 786.2] Diagnosis: SINUSITIS, ACUTE[ICD9: 461.9] Diagnosis: PHARYNGITIS, ACUTE[ICD9: 462] [facility] CPT-[facility]: 06414 10/11/2011 OFFICE/OUTPATIENT VISIT EST Diagnosis: COUGH[ICD9: 786.2] Diagnosis: SINUSITIS, ACUTE[ICD9: 461.9] Diagnosis: PHARYNGITIS, ACUTE[ICD9: 462] Diagnosis: ALLERGIC RHINITIS[ICD9: 477.9] Xiomara Rodriguez [facility] CPT-4: 10569 06/23/2011 OFFICE/OUTPATIENT VISIT EST Diagnosis: COUGH[ICD9: 786.2] Diagnosis: SINUSITIS, ACUTE[ICD9: 461.9] Diagnosis: PHARYNGITIS, ACUTE[ICD9: 462] Jessica [facility] CPT-4: 46706 06/14/2011 OFFICE/OUTPATIENT VISIT EST Diagnosis: SINUSITIS, ACUTE[ICD9: 461.9] Diagnosis: PHARYNGITIS, ACUTE[ICD9: 462] Jessica VO SLloyd [facility] CPT-4: 63379 12/02/2010 OFFICE/OUTPATIENT VISIT EST Diagnosis: HYPERTENSION[ICD9: 401.9] Diagnosis: HYPERLIPIDEMIA NEC/NOS[ICD9: 272.4] Diagnosis: DERMATITIS NOS[ICD9: 692.9] Jessica SMITHLINE Dominga. O RENDER [facility] CPT-4: 48385 11/12/2010 OFFICE/OUTPATIENT VISIT EST Jessica SMITHLINE Dominga. HERMAN NDER DO [facility] CPT- 4: 88107 10/13/2010 ([id number]) OFFICE/OUTPATIENT VISIT EST Jessica Marlen BELTRAN SLloyd [facility] CPT-4: 71496 06/24/2010 ([id number]) OFFICE/OUTPATIENT VISIT EST Jessicashannan BELTRAN S. [facility]MANNDER [facility] CPT-4: 45527 06/08/2010 ([id number]) OFFICE/OUTPATIENT VISIT EST Xiomara VO S Lloyd [facility]MANNDER [facility] CPT-4: 22136 05/20/2010 ([id number]) OFFICE/OUTPATIENT VISIT EST Jessica Marlen BELTRAN SLloyd SUTTONNDER DO [facility] CPT-4: 48444 04/30/2010 ([id number]) OFFICE/OUTPATIENT VISIT, EST Jessica Mccormickderek ABDIRASHID ZUHAIRCAMILLE SLloyd HERMANNDER DO [facility] CPT-4: 26593 01/22/2010 Plan of Care Planned Activity Notes Codes Status Date Visit Diagnosis Plan: Type 2 diabetes mellitus without complications Discussion: Increase Jardience to 25mg daily Acccuchecks daily Check CMP, HbA1C in 2mos then fwup ICD-9 : 250.00 ICD-10 : E11.9 05/09/2019 Appointment: Jessica Gee WPtel: [address] [place], [place] [id number] FOLLOW UP 05/09/2019 Patient Education: [employer]avo Patient Savings Message Alert Completed 05/09/2019 Visit Diagnosis Plan: Type 2 diabetes mellitus without complications Discussion: Lab discussed Add jardience 10mg po q AM Hold spironolactone Accuchecks daily alternating times Fwup 1 month with BS readings Notify if any signs of yeast infection ICD-9 : 250.00 ICD-10 : E11.9 04/03/2019 Appointment: Jessica Gee WPtel: [facility] [place] [facility] FOLLOW UP 04/03/2019 Visit Diagnosis Plan: Urinary [...] : K21.9 09/27/2018 Appointment: Jessica Gee WPtel: [address] [place], [place] [phone] ACUTE ILLNESS 09/27/2018 Visit Diagnosis Plan: Carpal [...] : F51.01 04/24/2018 Appointment: [facility]el[facility] [address] [facility] [facility] 04/24/2018 Patient Education: celecoxib- [employer] [id number] Completed 04/24/2018 Patient Education: amitriptyline- [employer] C[employer]on [id number] Completed 04/24/2018 Visit Diagnosis Plan: Type 2 [...] M25.50 12/27/2017 Appointment: [facility]el[facility] [facility] FO[facility] 12/27/2017 Patient Education: Patient Medication Summary Completed 12/27/2017 Patient Education: Patient Medication Summary Completed 12/19/2017 Care Plan: MAMMOGRAM BOTH BREASTS LOINC : 77824-4 Pending 12/19/2017 Patient Education: Patient Medication Summary Completed 12/16/2017 Care Plan: ASSAY THYROID STIM HORMONE Pen ding 12/16/2017 Care Plan: ASSAY OF FREE THYROXINE Pendin g 12/16/2017 Care Plan: LIPID PANEL LOINC : 47359-9 Pending 12/16/2017 Care Plan: CBC Pending 12/16/2017 Care Plan: A1C HPLC LOINC : 75687-0 Pending 12/16/2017 Patient Education: Patient Medication Summary Completed 10/17/2017 Care Plan: CT ANGIOGRAPHY CHEST LOINC : 78676-5 Pending 10/17/2017 Patient Education: Patient Medication Summary Completed 10/14/2017 Care Plan: CT ANGIOGRAPHY CHEST [facility] : 69205-3 Pending 10/14/2017 Appointment: Jessica Gee WPtel: [address] [place] [address] UA 10/13/2017 Patient Education: Patient Medication Summary Completed 10/13/2017 Visit Diagnosis Plan: Pleurodynia Discussion: patient sent for stat cxray. medrol dose pack prescribed for symptom management. instructed to perform deep breathing exercises at home to prevent atelectasis or pneumonia. will notify [facility] of results of xray and order additional tests/medications as needed. ICD-9 : 786.50 ICD-10 : R07.81 10/12/2017 Appointment: Sofi Gresham [address] [place] [address] ACUTE ILLNESS 10/12/2017 Patient Education: Patient Medication [...] ICD-10 : J20.9 09/16/2017 Appointment: Sofi Gresham [address] [place] [address] ACUTE ILLNESS 09/16/2017 Patient Education: Patient Medication Summary Completed 09/16/2017 Appointment: Jessica Gee WPtel: [address] [place] [address] CANCELED 08/10/2017 Visit Diagnosis Plan: Cellulitis of [...] : R00.0 05/25/2017 Appointment: Jessica Gee WPtel: [facility] FOLLOW UP 05/25/2017 Patient Education: Patient Medication Summary Completed 05/25/2017 Visit Diagnosis Plan: Lumbago with sciatica, right britton e Discussion: Check arthritis panel Patient awaiting neck surgery before surgery will consider back surgery ICD-9 : 724.2 ICD-10 : M54.41 01/03/2017 Appointment: Jessica Gee WPtel: [facility] [address] ACUTE ILLNESS 01/03/2017 Patient Education: Patient Medication Summary Completed 01/03/2017 Patient Education: Patient Medication Summary Completed 12/16/2016 Care Plan: MAMMOGRAM SCREENING LOINC : 2 6347-5 Pending 12/16/2016 Patient Education: Patient Medication Summary Completed 10/07/2016 Care Plan: MRI LUMBAR SPINE W/O & W/DYE LOINC : 52258-9 Pending 10/07/2016 Visit Diagnosis Plan: Essential (primary) [...] : W57.XXXD 09/23/2016 Appointment: Jessica Gee WPtel: [phone] [facility] 09/22 confirmed WORK IN 09/23/2016 Patient Education: Patient Medication Summary Completed 09/23/2016 Visit Plan: Tick panel at [facility] Increa se spironolactone to 2 po am (New Rx sent) Take B/P at home/work and also come to office next week for recheck Will await lab results before starting any antibiotic 09/03/2016 Appointment: Kaitlynn Mosley WPtel: [address] [place], [place] [phone] ACUTE ILLNESS 09/03/2016 Patient Education: Patient Medication Summary Completed 09/03/2016 Visit Diagnosis Plan: Low back pain Discussion: Celebr ex BID PT Continue stretches at home L/S xray Follow Up: 1 months ICD-9 : 724.2 ICD-10 : M54.5 07/08/2016 Appointment: Jessica Gee WPtel: [address] [place] [address] ACUTE ILLNESS 07/08/2016 Patient Education: Patient Medication Summary Completed 07/08/2016 Care Plan: X-RAY EXAM L-S SPINE 2/3 VWS LOINC : 47231-8 Pending 07/08/2016 Visit Plan: Supportive care. Rest, Fluid s, Tylenol/Motrin prn fever or bodyaches. Notify if worsening symptoms.New toothebrush in 5 days 06/21/2016 Visit NOS Plan: Plan Notes: Supportive care. Rest, Fluids... 06/21/2016 Visit Diagnosis Plan: Acute pharyngitis, unspecified D iscussion: Strep Negative Supportive Care May use zyrtec 10mg q HS ICD-9 : 462 ICD-10 : J02.9 06/21/2016 Appointment: Jessica Gee WPtel: [address] [place], [place] [phone] ACUTE ILLNESS 06/21/2016 Patient Education: Patient Medication Summary Completed 06/21/2016 Visit Plan: No pulseox last week to comp are to today, but she does sound diminished today Studies as above ordered Continue cefdinir until results received Increase albuterol treatments to q4-6hrs PRN Continue supportive care 02/23/2016 Appointment: Janiya Gregorio [address] [place] [address] ACUTE ILLNESS 02/23/2016 Patient Education: Patient Medication Summary Completed 02/23/2016 Care Plan: CHEST X-RAY 2VW FRONTAL&LATL LOINC : 19122-9 Pending 02/23/2016 Visit Plan: Saline nasal flushes prn. Ty lenol/Motrin prn headache. Notify if persists/symptoms worsening. 02/16/2016 Appointment: Jessica Gee WPtel: [address] [place] [address] ACUTE ILLNESS 02/16/2016 Patient Education: Patient Medication Summary Completed 02/16/2016 Visit Plan: Discussed labs Continue Topr ol at 200 mg PO daily Increase Aciphex to BID Notify if increase of Aciphex does not give relief. Repeat PT/INR in 2 weeks. 02/11/2015 Appointment: Suki Barahona WPtel: [address] [place] [address] 02/10 confirmed ~sl FOLLOW UP 02/11/2015 Patient Education: Patient Medication Summary Completed 02/11/2015 Patient Education: Patient Medication Summary Completed 02/06/2015 Care Plan: POC PROTIME/INR LOINC : 79415 -6 Pending 02/06/2015 Visit Plan: Increase Toprol XL 200 mg to one full tablet daily (is currently taking only 1/2 tablet) To for EKG today Monitor daily BP Notify of any changes- increased numbness, weakness, headache etc. 01/28/2015 Appointment: Suki Barahona WPtel: [address] [place] [address] ACUTE ILLNESS 01/28/2015 Patient Education: Patient Medication Summary Completed 01/28/2015 Visit Plan: ERx Amoxicillin and Flonase Nasal saline, humidified air Facial heat or cold packs for comfort Increase fluids/rest Discussed s/s of worsening, go to over weekend if these occur. 12/06/2014 Appointment: Kaitlynn Mosley WPtel: [address] [place] [address] ACUTE ILLNESS 12/06/2014 Patient Education: Patient Medication Summary Completed 12/06/2014 Appointment: Kaitlynn Mosley WPtel: [address] [place] [address] ACUTE ILLNESS 08/09/2014 Patient Education: Patient Medication Summary Completed 08/09/2014 Appointment: Suki Barahona WPtel: [address] [place] [address] ACUTE ILLNESS 06/24/2014 Patient Education: Patient Medication Summary Completed 06/24/2014 Appointment: Suki Barahona WPtel: [address] [place] [address] ACUTE ILLNESS 03/22/2014 Patient Education: Patient Medication Summary Completed 03/22/2014 Patient Education: [employer] - Antibi otics, Analgesics 18+, Oral Contraceptives F 18+ Completed 03/22/2014 Appointment: Suki Barahona WPtel: [address] [place] [address] FOLLOW UP 03/05/2014 Patient Education: Patient Medication Summary Completed 03/05/2014 Visit Plan: Saline nasal flushes prn. Ty lenol/Motrin prn headache. Notify if persists/symptoms worsening. Restart flonase 01/16/2014 Appointment: Jessica Gee WPtel: [address] [place] [address] ACUTE ILLNESS 01/16/2014 Patient Education: Patient Medication Summary Completed 01/16/2014 Appointment: Jessica Gee WPtel: [address] [place], [place] [phone] [facility] 10/19/2013 Patient Education: Patient Medication Summary Completed 10/19/2013 Appointment: Jessica Gee WPtel: [address] [place], [place] [phone] 08/08 patient canceled appt and said will call back to angela waters FOLLOW UP 08/09/2013 Visit Plan: Increase Coumadin to 6mg M-F and stay on 5mg Sat, Sun Add lipids to labs Check PT/INR in 3wks Continue metfromin at current dose and accuchecks 05/10/2013 Appointment: Jessica Gee WPtel: [address] [place], [place] [address] 05/09 FOLLOW UP 05/10/2013 Patient Education: Patient Medication Summary Completed 05/10/2013 Visit Plan: Saline nasal flushes prn. Ty lenol/Motrin prn headache. Notify if persists/symptoms worsening. 04/17/2013 Appointment: Jessica Gee WPtel: [address] [place], [place] [phone] ACUTE ILLNESS 04/17/2013 Patient Education: Patient Medication Summary Completed 04/17/2013 Appointment: Suki Barahona WPtel: [address] [place], [place] [phone] FOLLOW UP 03/05/2013 Patient Education: Patient Medication Summary Completed 03/05/2013 Appointment: Suki Barahona WPtel: [address] [place] [address] FOLLOW UP 03/02/2013 Patient Education: Patient Medication Summary Completed 03/02/2013 Appointment: Suki Barahona WPtel: [address] [place], [place] [phone] ACUTE ILLNESS 03/01/2013 Patient Education: Patient Medication Summary Completed 03/01/2013 Visit Plan: Continue metformin and accuc hecks Add fish oil 1gram daily Check HbA1C, CMP in 2mos then fwup 02/22/2013 Appointment: Jessica Gee WPtel: [address] [place], [place] [phone] 02/21 work FOLLOW UP 02/22/2013 Patient Education: Patient Medication Summary Completed 02/22/2013 Visit Plan: Start Metformin Start Accuch ecks daily alternating times Will go for dilated eye exam once BS more stabilized Diabetic foot care discussed Diabetic diet info given 01/11/2013 Appointment: Jessica Gee WPtel: [address] [place], [place] [phone] FOLLOW UP 01/11/2013 Patient Education: Patient Medication Summary Completed 01/11/2013 Appointment: Kaitlynn Mosley WPtel: [address] [place] [address] ACUTE ILLNESS 11/03/2012 Patient Education: Patient Medication Summary Completed 11/03/2012 Appointment: Xiomara Rodriguez WPtel: [address] [place], [place] [phone] ACUTE ILLNESS 05/04/2012 Patient Education: Patient Medication Summary Completed 05/04/2012 Visit Plan: pt reports that she always g ets yeast infections. Discussed that the antifungal can cause problems/increased bleeding with Coumdin. Pt. will start with probiotics and only take the Diflucan if needed. Cefdinir. 10/11/2011 Appointment: Xiomara Rodriguez WPtel: [address] [place] [address] ACUTE ILLNESS 10/11/2011 Patient Education: Patient Medication Summary Completed 10/11/2011 Appointment: Xiomara Rodriguez WPtel: [address] [place] [address] FOLLOW UP 06/23/2011 Patient Education: Patient Medication Summary Completed 06/23/2011 Visit Plan: Will prescribe an antibiotic and diflucan. Pt. reports that she frequently gets yeast infection. Discussed that she will notify if any symptoms persist. Pt. reports that her relatives have recently been hospitalized with pneumonia. 06/14/2011 Appointment: Xiomara Rodriguez WPtel: [address] [place] [address] ACUTE ILLNESS 06/14/2011 Patient Education: Patient Medication Summary Completed 06/14/2011 Visit Plan: sample of veramyst. Cefuroxi me axetil. Pt. will focus on hydration and rest. Discussed comfort measures and monitoring for worsening symptoms. 12/02/2010 Appointment: Xiomara Rodriguez WPtel: [address] [place] [address] ACUTE ILLNESS 12/02/2010 Patient Education: Patient Medication Summary Completed 12/02/2010 Visit Plan: Change HCTZ to spironolacton e will start zocor in 1 mo BP med in 1mo 11/12/2010 Appointment: Jessica Gee WPtel: [address] [place] [address] [place] FOLLOW UP 11/12/2010 Patient Education: Patient Medication Summary Completed 11/12/2010 Appointment: Jessica Gee WPtel: [address] [place] [address] BP CHECK 10/26/2010 Patient Education: Patient Medication Summary Completed 10/26/2010 Visit Plan: Continue Toprol at bedtime A dd HCTZ in AM BP check in 2wks Fasting lab with next PT/INR 10/13/2010 Appointment: Jessica Gee WPtel: [address] [place] [address] FOLLOW UP 10/13/2010 Patient Education: Patient Medication Summary Completed 10/13/2010 Visit Plan: Cont abx. Fwup with surgery as scheduled 06/24/2010 Appointment: Jessica Gee WPtel: [address] [place] [address] Hospital Follow Up 06/24/2010 Patient Education: Patient Medication Summary Completed 06/24/2010 Appointment: Jessica Gee WPtel: [address] [place] [address] Hospital Follow Up 06/22/2010 Visit Plan: pt [...] subside. 06/08/2010 Appointment: Xiomara Rodriguez WPtel: [address] [place] [address] ACUTE ILLNESS 06/08/2010 Patient Education: Patient Medication Summary Completed 06/08/2010 Appointment: Xiomara Rodriguez WPtel: [address] [place] [address] FOLLOW UP 06/01/2010 Appointment: Jessica Gee WPtel: [address] [place] [address] 05/29/2010 Patient Education: Patient Medication Summary Completed 05/29/2010 Appointment: Xiomara Rodriguez WPtel: [address] [place] [address] ACUTE ILLNESS 05/20/2010 Patient Education: Patient Medication Summary Completed 05/20/2010 Appointment: Jessica Gee WPtel: [address] [place] [address] BP CHECK 05/13/2010 Patient Education: Patient Medication Summary Completed 05/13/2010 Visit Plan: Increase Lisinopril hct to 2 0/12.5mg q AM Use atarax prn and routinely at bedtime and Medrol dose pack BP check in 3wks Pt defers stress test at this time 04/30/2010 Appointment: Jessica Gee WPtel: [address] [place] [address] ACUTE ILLNESS 04/30/2010 Patient Education: Patient Medication Summary Completed 04/30/2010 Appointment: Jessica Gee WPtel: [address] [place] [address] BP CHECK 02/27/2010 Patient Education: Patient Medication Summary Completed 02/27/2010 Visit Plan: Cont Toprol Add Altace 10mg QD Cont Wellbutrin Will likely add SSRI after BP stable BP check in 2wks 01/22/2010 Appointment: Jessica Gee WPtel: [address] [place] [address] ACUTE ILLNESS 01/22/2010 Patient Education: Patient Medication Summary Completed 01/22/2010 Referral: Rupa Raines WPtel: [address] [address] [id number] [place] Referral Completed Referral: Neymar Alberts WPtel: [address] [address] [place] Referral Initiated Instructions Comment . Tick [...]
--- OUTSIDE RECORDS SUMMARY | 2019-09-10 03:02 | XMS REPORT | CCD ---
Author Author Nava Gee D.O. Organization [facility] Address [address] [place] [address] Phone Care Team Providers Care Urban Design Consultant Name Role Phone Jessica Gee D.O., PP Unavailable CCM Unavailable Summary Purpose Interface Exchange Insurance Providers Payer name Policy type / Coverage type Covered alliance party ID Effective Begin Date Effective End Date Blue Cross Blue Shield Blue Cross/Blue Shield [id number] Unknown Family History Family History data not found Social History Social History Element Codes Description Effective Dates Tobacco history SNOMED CT: 246986169 Never smoker 10/13/2010 Allergies, Adverse Reactions, Alerts [...] findings ICD-9: V70.0 ICD-10: Z00.00 12/16/2017 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 ICD-9: V58.6 1 [...] Toprol XL 200 mg tablet,extended release RxNorm: 528153 1 Table t(s) Oral QD 06/13/2019 12/09/2019 Active warfarin 6 mg tablet RxNorm: 386375 1 Tablet(s) Oral QD 06/04/2019 No Stop Date Active metformin ER 500 mg tablet,extended release 24 hr RxNorm: 86 0975 TAKE 1 TABLET BY MOUTH TWICE DAILY 05/29/2019 07/27/2019 Active Jardiance 25 mg tablet RxNorm: 1728354 1 Tablet(s) Oral QD 05/09/19 20 05/23/2019 Inactive Jardiance 25 mg tablet RxNorm: 2828778 1 Tablet(s) Oral QAM 020 09/06/2019 Active Jardiance 10 mg tablet RxNorm: 5567331 1 Tablet(s) Oral QD 05/09/19 No Stop Date Active warfarin 1 mg tablet RxNorm: 216634 1 Tablet(s) Oral on Tue and with 6mg tablet (total 7mg) 05/09/2019 No Stop Date Active warfarin 6 mg tablet RxNorm: 618487 1 Tablet(s) Oral QD then on Tue/ take along with Warfarin 1mg (7mg) 05/09/2019 06/03/2019 Inactive warfarin 5 mg tablet RxNorm: 243086 1 Tablet(s) Oral QD 05/02/2019 Inactive warfarin 1 mg tablet RxNorm: 795758 TAKE 1 TABLET [address] MO [facility] ONCE DAILY. TAKE AN ADDITIONAL TABLET ON TUESDAY AND Tuesday05/02/2019 05/08/2019 Inactiv e Coumadin 5 mg tablet RxNorm: 807217 TAKE 1 TABLET BY MOUTH ONCE DAILY 04/02/2019 05/02/2019 Inactive celecoxib 200 mg capsule RxNorm: 172541 TAKE 1 CAPSULE BY MOUTH TWICE DAILY 03/20/2019 06/17/2019 Active pravastatin 40 mg tablet RxNorm: 669207 TAKE 1 TABLET BY MOUTH ONCE DAILY 03/19/2019 06/16/2019 Active metformin ER 500 mg tablet,extended release 24 hr RxNorm: 86 0975 TAKE 1 TABLET BY MOUTH TWICE DAILY 03/19/2019 05/17/2019 Inactive Coumadin 5 mg tablet RxNorm: 230031 TAKE 1 TABLET BY MOUTH ONCE DAILY 02/28/2019 04/01/2019 Inactive warfarin 1 mg tablet RxNorm: 078872 TAKE 1 TABLET BY MO [facility] ONCE DAILY. TAKE AN ADDITIONAL TABLET ON TUESDAY AND Tuesday02/28/2019 05/01/2019 Inactiv e omeprazole 40 mg capsule,delayed release RxNorm: 410240 TAKE 1 CAPSULE BY MOUTH TWICE DAILY 02/19/2019 No Stop Date Active metformin ER 500 mg tablet,extended release 24 hr RxNorm: 86 0975 1 Tablet(s) PO BID 02/19/2019 03/18/2019 Inactive metformin ER 500 mg tablet,extended release 24 hr RxNorm: 86 0975 1 Tablet(s) PO BID 01/15/2019 02/13/2019 Inactive alprazolam 0.25 mg tablet RxNorm: 034265 1 Tablet(s) Oral prior to flight 01/03/2019 No Stop Date Active omeprazole 40 mg capsule,delayed release RxNorm: 604957 TAKE 1 CAPSULE BY MOUTH TWICE DAILY 12/20/2018 02/18/2019 Inactive metformin ER 500 mg tablet,extended release 24 hr RxNorm: 86 0975 1 Tablet(s) PO BID 12/11/2018 01/09/2019 Inactive pravastatin 40 mg tablet RxNorm: 107337 TAKE 1 TABLET BY MOUTH ONCE DAILY 12/11/2018 03/18/2019 Inactive Coumadin 5 mg tablet RxNorm: 530246 1 Tablet(s) PO QD 11/27/201809/2018 Inactive metformin ER 500 mg tablet,extended release 24 hr RxNorm: 86 0975 1 Tablet(s) PO BID 10/02/2018 11/30/2018 Inactive warfarin 1 mg tablet RxNorm: 530524 TAKE 1 TABLET BY MO [facility] ONCE DAILY. TAKE AN ADDITIONAL TABLET ON TUESDAY AND Tuesday10/02/2018 02/27/2019 Inactiv e Bactrim DS 800 mg-160 mg tablet RxNorm: 815390 1 Tablet(s) PO BID 0 09/27/2018 10/03/2018 Inactive warfarin 5 mg tablet RxNorm: 430220 1 Tablet(s) PO QD 09/27/201810/2018 Inactive Toprol XL 200 mg tablet,extended release RxNorm: 421080 1 Table t(s) PO QD 09/18/2018 06/12/2019 Inactive omeprazole 40 mg capsule,delayed release RxNorm: 810678 TAKE 1 CAPSULE BY MOUTH TWICE DAILY 09/11/2018 12/19/2018 Inactive Coumadin 5 mg tablet RxNorm: 484413 1 Tablet(s) PO QD 08/21/201811/2018 Inactive metformin ER 500 mg tablet,extended release 24 hr RxNorm: 86 0975 1 Tablet(s) PO BID 07/31/2018 09/28/2018 Inactive omeprazole 40 mg capsule,delayed release RxNorm: 749714 TAKE 1 CAPSULE BY MOUTH TWICE DAILY 06/27/2018 09/10/2018 Inactive metformin ER 500 mg tablet,extended release 24 hr RxNorm: 86 0975 Tablet(s) 1 Tablet(s) PO BID 06/27/2018 07/31/2018 Inactive Toprol XL 200 mg tablet,extended release RxNorm: 335180 1 Table t(s) PO QD 06/14/2018 09/17/2018 Inactive Coumadin 5 mg tablet RxNorm: 311891 1 Tablet(s) PO QD 06/14/201804/2018 Inactive metformin ER 500 mg tablet,extended release 24 hr RxNorm: 86 0975 Tablet(s) 1 Tablet(s) PO BID 05/22/2018 06/26/2018 Inactive Coumadin 5 mg tablet RxNorm: 258020 TAKE 1 TABLET BY MOUTH ONCE DAILY 05/11/2018 06/14/2018 Inactive Lovenox 40 mg/0.4 mL subcutaneous syringe RxNorm: 472107 40 Mil ligram(s) SQ QD 05/05/2018 09/26/2018 Inactive amitriptyline 25 mg tablet RxNorm: 623687 1 Tablet(s) PO QHS fo r sleep/HAs 04/24/2018 10/20/2018 Inactive OneTouch Ultra Test strips RxNorm: Test blood sugar sigrid y (Dx:E11.65) 04/24/2018 No Stop Date Active celecoxib 200 mg capsule RxNorm: 773987 1 Capsule(s) PO BID 019 10/20/2018 Inactive Celebrex 200 mg capsule RxNorm: 054401 TAKE 1 CAPSULE BY MOUTH ONCE DAILY 04/19/2018 04/23/2018 Inactive warfarin 1 mg tablet RxNorm: 636338 1 Tablet(s) PO QD a nd additional tablet on Tue & Th04/14/2018 10/01/2018 Inactive Toprol XL 200 mg tablet,extended release RxNorm: 204667 TAKE 1 TABLET BY MOUTH ONCE DAILY 04/11/2018 06/14/2018 Inactive metformin ER 500 mg tablet,extended release 24 hr RxNorm: 86 0975 Tablet(s) 1 Tablet(s) PO BID 03/17/2018 05/21/2018 Inactive Coumadin 5 mg tablet RxNorm: 269044 TAKE 1 TABLET BY MOUTH ONCE DAILY 03/15/2018 05/10/2018 Inactive Lovenox 40 mg/0.4 mL subcutaneous syringe RxNorm: 336762 40 Mil ligram(s) SQ QD 01/27/2018 04/11/2018 Inactive omeprazole 40 mg capsule,delayed release RxNorm: 370150 TAKE 1 CAPSULE BY MOUTH TWICE DAILY 01/23/2018 06/26/2018 Inactive pravastatin 40 mg tablet RxNorm: 254092 TAKE 1 TABLET BY MOUTH ONCE DAILY 01/23/2018 12/10/2018 Inactive metformin ER 500 mg tablet,extended release 24 hr RxNorm: 86 0975 Tablet(s) 1 Tablet(s) PO BID 01/16/2018 01/15/2018 Inactive Toprol XL 200 mg tablet,extended release RxNorm: 407076 TAKE 1 TABLET BY MOUTH ONCE DAILY 01/16/2018 04/10/2018 Inactive Coumadin 5 mg tablet RxNorm: 176247 TAKE 1 TABLET BY MOUTH ONCE DAILY 01/06/2018 03/14/2018 Inactive Celebrex 200 mg capsule RxNorm: 070863 1 Capsule(s) PO BID 12/28/19 18 03/26/2018 Inactive metformin ER 500 mg tablet,extended release 24 hr RxNorm: 86 0975 1 Tablet(s) PO BID Needs APPT 12/21/2017 01/16/2018 Inactive omeprazole 40 mg capsule,delayed release RxNorm: 613565 TAKE 1 CAPSULE BY MOUTH TWICE DAILY 11/02/2017 01/22/2018 Inactive Celebrex 200 mg capsule RxNorm: 189083 1 Capsule(s) PO QD 11/01/2017 12/26/2017 Inactive Coumadin 5 mg tablet RxNorm: 524748 Tablet(s) TAKE ONE TABLET BY MOUTH ONCE DAILY. 10/31/2017 12/29/2017 Inactive warfarin 1 mg tablet RxNorm: 715803 1 Tablet(s) PO QD 10/31/201703/22 Inactive spironolactone 25 mg tablet RxNorm: 130090 TAKE TWO TAB LETS BY MOUTH IN THE MORNING 10/31/2017 04/23/2018 Inactive metformin ER 500 mg tablet,extended release 24 hr RxNorm: 86 0975 1 Tablet(s) PO BID Needs updated fasting lab 10/20/2017 12/21/2017 Inactive Medrol (Dale) 4 mg tablets in a dose pack RxNorm: 264217 Tablet(s) PO take as directed 10/12/2017 12/15/2017 Inactive Celebrex 200 mg capsule RxNorm: 526743 1 Capsule(s) PO QD 10/03/2017 10/02/2017 Inactive spironolactone 25 mg tablet RxNorm: 379133 TAKE TWO TAB LETS BY MOUTH IN THE MORNING 09/19/2017 10/30/2017 Inactive Zithromax Z-Dale 250 mg tablet RxNorm: 945400 Tablet(s) PO take as directed 09/16/2017 10/11/2017 Inactive Medrol (Dale) 4 mg tablets in a dose pack RxNorm: 917537 Tablet(s) take as directed PO 09/16/2017 10/11/2017 Inactive doxycycline hyclate 100 mg tablet RxNorm: 6572493 1 Tablet(s) PO BI D 09/16/2017 09/15/2017 Inactive doxycycline hyclate 100 mg tablet RxNorm: 3004321 1 Tablet(s) PO BI D 09/16/2017 09/25/2017 Inactive Tessalon Perles 100 mg capsule RxNorm: 253350 1 Capsule(s) PO T ID as needed 09/16/2017 12/15/2017 Inactive warfarin 1 mg tablet RxNorm: 786238 1 Tablet(s) PO QD 09/06/201710/19 Inactive Coumadin 5 mg tablet RxNorm: 967689 Tablet(s) TAKE ONE TABLET BY MOUTH ONCE DAILY. 09/06/2017 10/31/2017 Inactive Toprol XL 200 mg tablet,extended release RxNorm: 617808 1 Table t(s) PO QD 2017 01/02/2018 Inactive warfarin 1 mg tablet RxNorm: 473697 1 Tablet(s) PO QD DUE FOR L ABS AUGUST 12 08/29/2017 09/06/2017 Inactive Coumadin 5 mg tablet RxNorm: 840386 Tablet(s) TAKE ONE TABLET BY MOUTH ONCE DAILY. DUE FOR PT/INR AUGUST 12 08/29/2017 09/06/2017 Inactive Coumadin 5 mg tablet RxNorm: 840562 Tablet(s) TAKE ONE TABLET BY MOUTH ONCE DAILY. DUE FOR PT/INR AUGUST 12 08/01/2017 08/29/2017 Inactive warfarin 1 mg tablet RxNorm: 563857 1 Tablet(s) PO QD DUE FOR L ABS AUGUST 12 08/01/2017 08/29/2017 Inactive scopolamine 1 mg over 3 days transdermal patch RxNorm: 61536 2 1 TD take off in 72 hours. 08/01/2017 12/26/2017 Inactive pravastatin 40 mg tablet RxNorm: 079534 Tablet(s) TAKE ONE TABLET BY MOUTH ONCE DAILY 07/07/2017 01/02/2018 Inactive Coumadin 5 mg tablet RxNorm: 374548 Tablet(s) TAKE ONE TABLET BY MOUTH ONCE DAILY. DUE FOR PT/INR. 06/29/2017 08/01/2017 Inactive warfarin 1 mg tablet RxNorm: 792292 1 Tablet(s) PO QD 06/29/201707/19 Inactive Coumadin 5 mg tablet RxNorm: 836599 TAKE ONE TABLET BY MOUTH ONCE DAILY. DUE FOR PT/INR. 05/30/2017 06/29/2017 Inactive omeprazole 40 mg capsule,delayed release RxNorm: 331779 1 Capsu le(s) PO BID 05/30/2017 08/27/2017 Inactive Celebrex 200 mg capsule RxNorm: 913568 1 Capsule(s) PO QD 05/23/2017 10/03/2017 Inactive metformin ER 500 mg tablet,extended release 24 hr RxNorm: 86 0975 TAKE ONE TABLET BY MOUTH TWICE DAILY 05/20/2017 10/20/2017 Inactive Coumadin 5 mg tablet RxNorm: 139800 1 Tablet(s) PO QD due for PT/IN R 04/25/2017 05/24/2017 Inactive warfarin 1 mg tablet RxNorm: 194346 1 Tablet(s) PO QD due for l abs this week 03/16/2017 06/29/2017 Inactive omeprazole 40 mg capsule,delayed release RxNorm: 492648 1 Capsu le(s) PO BID 03/16/2017 05/30/2017 Inactive Celebrex 200 mg capsule RxNorm: 037808 1 Capsule(s) PO BID as n eeded for pain 03/16/2017 05/22/2017 Inactive Coumadin 5 mg tablet RxNorm: 965294 1 Tablet(s) PO QD due for PT/IN R 03/16/2017 04/14/2017 Inactive Celebrex 200 mg capsule RxNorm: 830103 1 Capsule(s) PO BID as n eeded for pain 02/09/2017 03/15/2017 Inactive Toprol XL 200 mg tablet,extended release RxNorm: 180163 1 Table t(s) PO QD 02/08/2017 2017 Inactive Celebrex 200 mg capsule RxNorm: 096830 1 Capsule(s) PO BID as n eeded for pain 01/14/2017 02/08/2017 Inactive omeprazole 40 mg capsule,delayed release RxNorm: 753265 1 Capsu le(s) PO BID 01/12/2017 03/16/2017 Inactive Coumadin 5 mg tablet RxNorm: 724530 1 Tablet(s) PO QD 12/15/201602/19 Inactive warfarin 1 mg tablet RxNorm: 753535 1 Tablet(s) PO QD 12/15/201602/19 Inactive metformin ER 500 mg tablet,extended release 24 hr RxNorm: 86 0975 Tablet(s) TAKE ONE TABLET BY MOUTH TWICE DAILY 11/29/2016 02/26/2017 Inactive omeprazole 40 mg capsule,delayed release RxNorm: 099681 1 Capsu le(s) PO BID 11/29/2016 12/28/2016 Inactive pravastatin 40 mg tablet RxNorm: 964119 Tablet(s) TAKE ONE TABLET BY MOUTH ONCE DAILY 11/19/2016 07/07/2017 Inactive omeprazole 40 mg capsule,delayed release RxNorm: 665799 1 Capsu le(s) PO BID 10/19/2016 10/18/2016 Inactive omeprazole 40 mg capsule,delayed release RxNorm: 665173 1 Capsu le(s) PO BID 10/19/2016 11/17/2016 Inactive pantoprazole 40 mg tablet,delayed release RxNorm: 357045 1 Tabl et(s) PO QD 09/30/2016 10/18/2016 Inactive pantoprazole 40 mg tablet,delayed release RxNorm: 399628 1 Tabl et(s) PO QD 09/30/2016 09/29/2016 Inactive Zofran ODT 4 mg disintegrating tablet RxNorm: 802781 1 Tablet(s) PO Q4H as needed for nausea 09/15/2016 01/02/2017 Inactive Coumadin 5 mg tablet RxNorm: 785822 1 Tablet(s) PO QD 09/14/201611/20 Inactive warfarin 1 mg tablet RxNorm: 784448 1 Tablet(s) PO QD 09/14/201611/20 Inactive spironolactone 25 mg tablet RxNorm: 954092 2 Tablet(s) PO QAM 09/0301/02/2017 Inactive Wellbutrin XL 300 mg 24 hr tablet, extended release RxNorm: 055934 TAKE ONE TABLET BY MOUTH ONCE DAILY 08/26/2016 12/26/2017 Inactive Toprol XL 200 mg tablet,extended release RxNorm: 698255 1 Table t(s) PO QD 07/28/2016 02/08/2017 Inactive metformin ER 500 mg tablet,extended release 24 hr RxNorm: 86 0975 Tablet(s) TAKE ONE TABLET BY MOUTH TWICE DAILY 07/15/2016 11/29/2016 Inactive cyclobenzaprine 5 mg tablet RxNorm: 843573 1 Tablet(s) PO QHS f or spasm 07/08/2016 08/06/2016 Inactive Celebrex 200 mg capsule RxNorm: 1 Capsule(s) PO BID 07/08/2016 Inactive spironolactone 25 mg tablet RxNorm: 506914 1 Tablet(s) PO QAM 07/0609/02/2016 Inactive Wellbutrin XL 300 mg 24 hr tablet, extended release RxNorm: 847237 TAKE ONE TABLET BY MOUTH ONCE DAILY 06/15/2016 07/14/2016 Inactive Coumadin 5 mg tablet RxNorm: 347894 1 Tablet(s) PO QD 06/08/201608/20 Inactive warfarin 1 mg tablet RxNorm: 960634 1 Tablet(s) PO QD 06/08/201608/20 Inactive Toprol XL 200 mg tablet,extended release RxNorm: 393393 TAKE ONE TABLET BY MOUTH ONCE DAILY 04/26/2016 07/28/2016 Inactive pravastatin 40 mg tablet RxNorm: 967538 TAKE ONE TABLET BY MOUT H ONCE DAILY 04/19/2016 10/15/2016 Inactive Coumadin 5 mg tablet RxNorm: 751181 1 Tablet(s) PO QD 03/09/201605/19 Inactive warfarin 1 mg tablet RxNorm: 224351 1 Tablet(s) PO QD 03/09/201605/19 Inactive metformin ER 500 mg tablet,extended release 24 hr RxNorm: 86 0975 TAKE ONE TABLET BY MOUTH TWICE DAILY 02/25/2016 07/15/2016 Inactive spironolactone 25 mg tablet RxNorm: 389932 TAKE ONE TAB LET BY MOUTH ONCE DAILY IN THE MORNING 02/25/2016 07/06/2016 Inactive prednisone 20 mg tablet RxNorm: 419249 1 Tablet(s) PO QAM 02/16/2016 02/20/2016 Inactive cefdinir 300 mg capsule RxNorm: 435968 2 Capsule(s) PO QD 02/16/2016 02/25/2016 Inactive Toprol XL 200 mg tablet,extended release RxNorm: 363408 TAKE ONE TABLET BY MOUTH ONCE DAILY 01/26/2016 04/24/2016 Inactive Aciphex 20 mg tablet,delayed release RxNorm: 624680 1 Tablet(s) PO BID 12/24/2015 09/29/2016 Inactive Omeprazole and Pepci d have not helped. Coumadin 5 mg tablet RxNorm: 485349 1 Tablet(s) PO QD 12/10/201502/19 Inactive Coumadin 5 mg tablet RxNorm: 961574 1 Tablet(s) PO QD 12/08/201511/20 Inactive Toprol XL 200 mg tablet,extended release RxNorm: 006050 TAKE ONE TABLET BY MOUTH ONCE DAILY 11/20/2015 01/18/2016 Inactive warfarin 1 mg tablet RxNorm: 319044 1 Tablet(s) PO QD 11/03/201502/19 Inactive pravastatin 40 mg tablet RxNorm: 655327 Tablet(s) TAKE ONE TABLET BY MOUTH ONCE DAILY 10/20/2015 01/17/2016 Inactive pravastatin 40 mg tablet RxNorm: 422188 TAKE ONE TABLET BY MOUT H ONCE DAILY 10/20/2015 10/19/2015 Inactive metformin ER 500 mg tablet,extended release 24 hr RxNorm: 86 0975 TAKE ONE TABLET BY MOUTH TWICE DAILY 10/03/2015 12/31/2015 Inactive Toprol XL 200 mg tablet,extended release RxNorm: 222340 TAKE ONE TABLET BY MOUTH ONCE DAILY 09/17/2015 11/15/2015 Inactive Coumadin 5 mg tablet RxNorm: 160910 1 Tablet(s) PO QD 09/02/201511/19 Inactive Wellbutrin XL 300 mg 24 hr tablet, extended release RxNorm: 064747 TAKE ONE TABLET BY MOUTH ONCE DAILY 08/01/2015 10/29/2015 Inactive Pepcid 20 mg tablet RxNorm: 577151 1 Tablet(s) PO BID as needed 05/24/2017 Inactive warfarin 1 mg tablet RxNorm: 791314 TAKE ONE TABLET BY MOUTH ON CE DAILY 07/08/2015 11/03/2015 Inactive pravastatin 40 mg tablet RxNorm: 127661 1 Tablet(s) PO QD 07/08/2015 10/05/2015 Inactive spironolactone 25 mg tablet RxNorm: 896938 TAKE ONE TAB LET BY MOUTH ONCE DAILY IN THE MORNING 06/13/2015 09/10/2015 Inactive Coumadin 5 mg tablet RxNorm: 378498 1 Tablet(s) PO QD 06/05/201508/19 Inactive Wellbutrin XL 300 mg 24 hr tablet, extended release RxNorm: 628209 TAKE ONE TABLET BY MOUTH ONCE DAILY 05/16/2015 09/26/2018 Inactive Wellbutrin XL 300 mg 24 hr tablet, extended release RxNorm: 098590 TAKE ONE TABLET BY MOUTH ONCE DAILY 05/16/2015 06/14/2015 Inactive metformin ER 500 mg tablet,extended release 24 hr RxNorm: 86 0975 TAKE ONE TABLET BY MOUTH TWICE DAILY 05/16/2015 08/13/2015 Inactive pravastatin 40 mg tablet RxNorm: 858583 1 Tablet(s) PO QD 04/10/2015 07/07/2015 Inactive Aciphex 20 mg tablet,delayed release RxNorm: 902487 1 Tablet(s) PO BID 03/07/2015 09/02/2015 Inactive Omeprazole and Pepci d have not helped. Toprol XL 200 mg tablet,extended release RxNorm: 118117 1 Table t(s) PO QD 03/05/2015 08/31/2015 Inactive Aciphex 20 mg tablet,delayed release RxNorm: 418468 1 Tablet(s) PO QD 03/04/2015 03/06/2015 Inactive Omeprazole and Pepci d have not helped. Coumadin 5 mg tablet RxNorm: 252330 1 Tablet(s) PO QD 02/28/201511/2015 Inactive Aciphex 20 mg tablet,delayed release RxNorm: 716667 1 Tablet(s) PO BID 02/11/2015 03/03/2015 Inactive Omeprazole and Pepci d have not helped. metformin ER 500 mg tablet,extended release 24 hr RxNorm: 86 0975 1 Tablet(s) PO BID 01/10/2015 04/09/2015 Inactive pravastatin 40 mg tablet RxNorm: 236993 1 Tablet(s) PO QD 01/06/2015 04/05/2015 Inactive Wellbutrin XL 300 mg 24 hr tablet, extended release RxNorm: 182598 TAKE ONE TABLET BY MOUTH ONCE DAILY 12/19/2014 02/16/2015 Inactive amoxicillin 500 mg capsule RxNorm: 542509 2 Capsule(s) PO BID 12/0612/15/2014 Inactive Flonase 50 mcg/actuation nasal spray,suspension RxNorm: 8963 23 2 Mclean each nostril NASAL QD 12/06/2014 03/05/2015 Inactive Coumadin 5 mg tablet RxNorm: 703471 1 Tablet(s) PO QD 11/28/201410/2014 Inactive spironolactone 25 mg tablet RxNorm: 742683 1 Tablet(s) PO QAM 11/2602/23/2015 Inactive Coumadin 5 mg tablet RxNorm: 324298 1 Tablet(s) PO QD 1 Tablet(s) PO QD- NEED TO CHECK LABS 10/30/2014 11/28/2014 Inactive warfarin 1 mg tablet RxNorm: 897041 1 Tablet(s) PO QD 10/30/201409/2015 Inactive Aciphex 20 mg tablet,delayed release RxNorm: 385813 1 Tablet(s) PO QD 10/02/2014 02/10/2015 Inactive Omeprazole and Pepci d have not helped. Coumadin 5 mg tablet RxNorm: 385286 1 Tablet(s) PO QD 1 Tablet(s) PO QD- NEED TO CHECK LABS 09/30/2014 10/30/2014 Inactive pravastatin 40 mg tablet RxNorm: 915064 1 Tablet(s) PO QD 09/25/2014 01/06/2015 Inactive warfarin 1 mg tablet RxNorm: 548473 1 Tablet(s) PO QD T [place] ONE TABLET BY MOUTH DIRECTED ON TUE AND TH08/28/2014 10/29/2014 Inactive metformin ER 500 mg tablet,extended release 24 hr RxNorm: 86 0975 1 Tablet(s) PO BID 08/28/2014 01/10/2015 Inactive amoxicillin 875 mg tablet RxNorm: 788048 1 Tablet(s) PO BID 015 08/18/2014 Inactive Toprol XL 200 mg tablet,extended release RxNorm: 519722 TAKE ONE TABLET BY MOUTH ONCE DAILY 07/22/2014 03/05/2015 Inactive Coumadin 5 mg tablet RxNorm: 036019 1 Tablet(s) PO QD 07/01/201409/18 Inactive amoxicillin 875 mg tablet RxNorm: 072221 1 Tablet(s) PO BID 015 06/30/2014 Inactive pravastatin 40 mg tablet RxNorm: 345237 1 Tablet(s) PO QD needs fasting labs 06/19/2014 09/25/2014 Inactive Coumadin 5 mg tablet RxNorm: 060430 1 Tablet(s) PO QD 1 Tablet(s) PO QD TAKE ONE TABLET BY MOUTH ONCE DAILY-need labs 05/28/2014 07/01/2014 Inactive warfarin 1 mg tablet RxNorm: 082716 1 Tablet(s) PO As Directed 05/1908/28/2014 Inactive pravastatin 40 mg tablet RxNorm: 925567 1 Tablet(s) PO QD needs fasting labs 05/14/2014 06/19/2014 Inactive metformin ER 500 mg tablet,extended release 24 hr RxNorm: 86 0975 1 Tablet(s) PO BID 04/25/2014 08/28/2014 Inactive spironolactone 25 mg tablet RxNorm: 703005 1 Tablet(s) PO QAM 04/2511/26/2014 Inactive Coumadin 5 mg tablet RxNorm: 844447 1 Tablet(s) PO QD 1 Tablet(s) PO QD TAKE ONE TABLET BY MOUTH ONCE DAILY 04/23/2014 05/28/2014 Inactive Coumadin 5 mg tablet RxNorm: 507360 1 Tablet(s) PO QD 1 Tablet(s) PO QD TAKE ONE TABLET BY MOUTH ONCE DAILY 03/22/2014 04/20/2014 Inactive Tessalon Perles 100 mg capsule RxNorm: 945081 1 Capsule(s) PO TID 0 03/22/2014 03/28/2014 Inactive cefdinir 300 mg capsule RxNorm: 290392 2 Capsule(s) PO QD 03/22/2014 03/31/2014 Inactive Medrol (Dale) 4 mg tablets in a dose pack RxNorm: 770086 Tablet(s) PO as directed 03/05/2014 08/08/2014 Inactive Coumadin 5 mg tablet RxNorm: 927845 1 Tablet(s) PO QD 1 Tablet(s) PO QD TAKE ONE TABLET BY MOUTH ONCE DAILY 02/19/2014 03/20/2014 Inactive pravastatin 40 mg tablet RxNorm: 008621 1 Tablet(s) PO QD 02/04/2014 05/14/2014 Inactive Coumadin 5 mg tablet RxNorm: 735747 1 Tablet(s) PO QD T [place] ONE TABLET BY MOUTH ONCE DAILY 01/21/2014 02/19/2014 Inactive Medrol (Dale) 4 mg tablets in a dose pack RxNorm: 477941 Tablet(s) PO as directed 01/18/2014 03/04/2014 Inactive cefdinir 300 mg capsule RxNorm: 640546 2 Capsule(s) PO QD 01/16/2014 01/25/2014 Inactive metformin ER 500 mg tablet,extended release 24 hr RxNorm: 86 0975 1 Tablet(s) PO BID 12/17/2013 04/25/2014 Inactive Wellbutrin SR 150 mg tablet,sustained-release RxNorm: 448920 1 Tablet(s) PO BID 11/30/2013 02/27/2014 Inactive spironolactone 25 mg tablet RxNorm: 898636 1 Tablet(s) PO QAM 10/2204/25/2014 Inactive Macrobid 100 mg capsule RxNorm: 213033 1 Capsule(s) PO BID 10/20/19 14 10/25/2013 Inactive Macrobid 100 mg capsule RxNorm: 599817 1 Capsule(s) PO BID 10/20/19 14 10/18/2013 Inactive Toprol XL 100 mg tablet,extended release RxNorm: 038205 1 Table t(s) PO QD 10/15/2013 01/15/2014 Inactive Toprol XL 200 mg tablet,extended release RxNorm: 635460 1 Table t(s) PO QD 10/02/2013 07/22/2014 Inactive Wellbutrin XL 300 mg 24 hr tablet, extended release RxNorm: 739335 1 Tablet(s) PO QD 09/28/2013 12/19/2014 Inactive Aciphex 20 mg tablet,delayed release RxNorm: 109417 1 Tablet(s) PO QD 08/29/2013 10/02/2014 Inactive Omeprazole and Pepci d have not helped. Coumadin 5 mg tablet RxNorm: 738110 1 Tablet(s) PO QD 08/14/201307/20 Inactive Coumadin 5 mg tablet RxNorm: 305718 1 Tablet(s) PO QD 08/14/201305/2013 Inactive pravastatin 40 mg tablet RxNorm: 106366 1 Tablet(s) PO QD 07/24/2013 02/04/2014 Inactive warfarin 1 mg tablet RxNorm: 271094 1 Tablet(s) PO QD T [place] ONE TABLET BY MOUTH DIRECTED ON MON AND THUR 07/09/2013 05/28/2014 Inactive warfarin 5 mg tablet RxNorm: 828781 1 Tablet(s) PO QD T [place] ONE TABLET BY MOUTH EVERY DAY 06/08/2013 07/07/2013 Inactive spironolactone 25 mg tablet RxNorm: 423939 1 Tablet(s) PO QAM 05/3010/15/2013 Inactive clindamycin 300 mg capsule RxNorm: 217922 2 Capsule(s) PO TID 04/1704/30/2013 Inactive warfarin 5 mg tablet RxNorm: 121650 1 Tablet(s) PO QD 03/12/201305/20 Inactive azithromycin 250 mg tablet RxNorm: 587135 2 Tablet(s) PO QD 013 03/07/2013 Inactive metformin ER 500 mg tablet,extended release 24 hr RxNorm: 86 0975 1 Tablet(s) PO BID 02/22/2013 12/17/2013 Inactive spironolactone 25 mg tablet RxNorm: 122587 1 Tablet(s) PO QAM 01/2205/30/2013 Inactive metformin ER 500 mg tablet,extended release 24 hr RxNorm: 86 0977 1 Tablet(s) PO BID 01/11/2013 02/21/2013 Inactive pravastatin 40 mg tablet RxNorm: 326014 1 Tablet(s) PO QD 01/11/2013 07/24/2013 Inactive warfarin 5 mg tablet RxNorm: 021083 1 Tablet(s) PO QD 01/04/201302/19 Inactive warfarin 1 mg tablet RxNorm: 978024 Tablet(s) PO TAKE O NE TABLET BY MOUTH DIRECTED ON MON AND THUR 12/14/2012 07/08/2013 Inactive scopolamine 1.5 mg 72 hr Transderm Patch RxNorm: 486395 TD Apply 1 patch behind ear every 72 hours, replace after 3 days. 11/08/2012 01/15/2014 Inacti ve Pepcid 20 mg tablet RxNorm: 119357 1 Tablet(s) PO BID as needed 01/31/2013 Inactive Famvir 500 mg tablet RxNorm: 266098 1 Tablet(s) PO Q8H 11/03/2012 Inactive Aciphex 20 mg tablet,delayed release RxNorm: 266494 1 Tablet(s) PO QD 11/03/2012 05/01/2013 Inactive Omeprazole and Pepci d have not helped. gabapentin 300 mg capsule RxNorm: 952337 Capsule(s) PO TID 11/04/19 13 01/15/2014 Inactive warfarin 5 mg tablet RxNorm: 406743 1 Tablet(s) PO QD 11/02/201212/19 Inactive Wellbutrin XL 300 mg 24 hr tablet, extended release RxNorm: 380409 1 Tablet(s) PO QD 10/17/2012 04/30/2013 Inactive pravastatin 40 mg tablet RxNorm: 004897 Tablet(s) PO TA KE ONE TABLET BY MOUTH EVERY DAY. NEED FASTING LABS 09/18/2012 01/10/2013 Inactive Toprol XL 200 mg tablet,extended release RxNorm: 233150 Tablet(s) PO TAKE ONE TABLET BY MOUTH EVERY DAY 09/08/2012 10/01/2013 Inactive warfarin 5 mg tablet RxNorm: 258811 1 Tablet(s) PO QD 08/31/201210/19 Inactive pravastatin 40 mg tablet RxNorm: 503271 1 Tablet(s) PO QD Needs fasting labs 08/18/2012 09/16/2012 Inactive TAKE ONE TABLET BY M OUTH EVERY DAY warfarin 1 mg tablet RxNorm: 443437 1 Tablet(s) PO As directed on Mon and Thurs 08/11/2012 12/13/2012 Inactive spironolactone 25 mg tablet RxNorm: 712320 1 Tablet(s) PO QAM 07/1110/08/2012 Inactive warfarin 5 mg tablet RxNorm: 779735 1 Tablet(s) PO QD 07/03/201208/19 Inactive Diflucan 100 mg tablet RxNorm: 449509 1 Tablet(s) PO QD 05/04/2012 Inactive Cipro 500 mg tablet RxNorm: 108146 1 Tablet(s) PO BID 05/04/201204/22 Inactive Aciphex 20 mg tablet,delayed release RxNorm: 273643 1 Tablet(s) PO QD 05/04/2012 07/02/2012 Inactive Omeprazole and Pepci d have not helped. warfarin 5 mg tablet RxNorm: 659515 1 Tablet(s) PO QD 05/02/201206/19 Inactive warfarin 5 mg tablet RxNorm: 081171 1 Tablet(s) PO QD 03/02/201204/21 Inactive Toprol XL 200 mg tablet,extended release RxNorm: 537179 1 Table t(s) PO QD 03/02/2012 05/30/2012 Inactive spironolactone 25 mg tablet RxNorm: 031160 1 Tablet(s) PO QAM 02/0707/11/2012 Inactive pravastatin 40 mg tablet RxNorm: 409285 Tablet(s) PO 01/31/201208/17 Inactive TAKE ONE TABLET BY MOUTH EVERY DAY pravastatin 40 mg tablet RxNorm: 665990 1 Tablet(s) PO QD 01/31/2012 08/18/2012 Inactive omeprazole 40 mg capsule,delayed release RxNorm: 075327 1 Capsule(s) PO QD for stomach 01/11/2012 11/02/2012 Inactive for stomach warfarin 5 mg tablet RxNorm: 972869 1 Tablet(s) PO QD 01/03/201202/18 Inactive warfarin 5 mg tablet RxNorm: 156934 1 Tablet(s) PO QD 12/03/201112/19 Inactive pravastatin 40 mg tablet RxNorm: 373671 1 Tablet(s) PO QD 11/25/2011 01/23/2012 Inactive cefdinir 300 mg Cap RxNorm: 980397 1 Capsule(s) PO BID 10/11/201103/2011 Inactive Culturelle 10 billion cell Cap RxNorm: 206174 1 Capsule(s) PO BID 0 10/11/2011 11/09/2011 Inactive Diflucan 100 mg Tab RxNorm: 784612 1 Tablet(s) PO QD 10/11/201110/19 Inactive Wellbutrin XL 300 mg 24 hr tablet, extended release RxNorm: 085388 1 Tablet(s) PO QD 09/14/2011 10/17/2012 Inactive pravastatin 40 mg tablet RxNorm: 107643 1 Tablet(s) PO QD 08/25/2011 11/25/2011 Inactive Coumadin 5 mg tablet RxNorm: 524316 Tablet(s) PO Take as direct ed by doctor. 07/07/2011 12/03/2011 Inactive Singulair 10 mg Tab RxNorm: 766260 1 Tablet(s) PO QD al lergy medication. (Please try to be consistent in dosing) 06/23/2011 01/15/2014 Inactive Diflucan 100 mg Tab RxNorm: 825557 1 Tablet(s) PO QD 06/14/201107/02 Inactive cefdinir 300 mg Cap RxNorm: 048808 1 Capsule(s) PO BID 06/14/201106/2011 Inactive pravastatin 40 mg Tab RxNorm: 640030 1 Tablet(s) PO QD 05/25/201108/2011 Inactive warfarin 5 mg Tab RxNorm: 554067 Tablet(s) PO 05/25/2011 10/18/2011 In active TAKE ONE TABLET BY MOUTH EVERY DAY Toprol XL 200 mg tablet,extended release RxNorm: 196002 1 Table t(s) PO QD 03/05/2011 06/02/2011 Inactive spironolactone 25 mg tablet RxNorm: 975848 1 Tablet(s) PO QAM 02/2402/08/2012 Inactive omeprazole 40 mg capsule,delayed release RxNorm: 556874 1 Capsule(s) PO QD for stomach 01/06/2011 01/11/2012 Inactive for stomach warfarin 5 mg Tab RxNorm: 838713 1 Tablet(s) PO QD 12/17/2010 011 Inactive warfarin 5 mg Tab RxNorm: 754999 1 Tablet(s) PO QD 11/18/2010 011 Inactive spironolactone 25 mg Tab RxNorm: 135403 1 Tablet(s) PO QAM 11/13/19 11 02/24/2011 Inactive Coumadin 6 mg Tab RxNorm: 622875 1 Tablet(s) PO QD 10/28/2010 011 Inactive May have generic hydrochlorothiazide 25 mg Tab RxNorm: 576712 1 Tablet(s) PO QAM 11/11/2010 Inactive Wellbutrin XL 300 mg 24 hr Tab RxNorm: 185522 1 Tablet(s) PO QD 09/14/2011 Inactive Septra DS 800 mg-160 mg Tab RxNorm: 125542 1 Tablet(s) PO BID 06/0806/17/2010 Inactive Pyridium 100 mg Tab RxNorm: 7005174 1 Tablet(s) PO TID 06/08/2010 Inactive Wellbutrin XL 300 mg 24 hr Tab RxNorm: 967860 1 Tablet(s) PO QD 05/201007/15/2010 Inactive hydroxyzine 25 mg Tab RxNorm: 546728 1 Tablet(s) PO QID prn itching--take routinely at bedtime. (pt. may not refil at this time but later) 05/20/2010 10/10/2011 Inactive Zyrtec 10 mg Tab RxNorm: 5306365 1 Tablet(s) PO BID 05/20/20102010 Inactive Coumadin 1 mg Tab RxNorm: 506417 1 Tablet(s) PO 6mg M-F, 7mg S-S 11/16/2010 Inactive hydroxyzine 25 mg Tab RxNorm: 766847 1 Tablet(s) PO QID prn itching--take routinely at bedtime 04/30/2010 05/19/2010 Inactive Toprol XL 200 mg 24 hr Tab RxNorm: 719106 1 Tablet(s) PO QD 011 06/23/2010 Inactive lisinopril-hydrochlorothiazide 10 mg-12.5 mg Tab RxNorm: 197 885 1 Tablet(s) PO QD 04/20/2010 04/29/2010 Inactive omeprazole 40 mg Cap, Delayed Release RxNorm: 303884 1 Capsule(s) PO QD for stomach 04/20/2010 08/17/2010 Inactive lisinopril-hydrochlorothiazide 10 mg-12.5 mg Tab RxNorm: 197 885 Tablet(s) PO 1QDAM - TAKE ONE TABLET BY MOUTH EVERY DAY IN THE MORNING 03/09/2010 Inactive lisinopril-hydrochlorothiazide 10 mg-12.5 mg Tab RxNorm: 197 885 1 Tablet(s) PO QD 02/27/2010 04/20/2010 Inactive Wellbutrin XL 300 mg 24 hr Tab RxNorm: 765601 1 Tablet(s) PO QD 05/21/2010 Inactive lisinopril-hydrochlorothiazide 10 mg-12.5 mg Tab RxNorm: 197 885 1 Tablet(s) PO QD 01/28/2010 02/26/2010 Inactive omeprazole 40 mg Cap, Delayed Release RxNorm: 473778 1 Capsule(s) PO QD for stomach 01/22/2010 04/20/2010 Inactive Altace 10 mg Cap RxNorm: 885986 1 Capsule(s) PO QD for BP 01/22/2010 03/22/2010 Inactive Coumadin 6 mg Tab RxNorm: 802188 1 Tablet(s) PO QD May have generic 12/03/2009 05/01/2010 Inactive Coumadin 6 mg Tab RxNorm: 114139 1 Tablet(s) PO 12/01/2009 12/02/2009 Inactive Coumadin 1 mg Tab RxNorm: 664646 1 Tablet(s) PO QD 11/28/2009 010 Inactive Coumadin 1 mg Tab RxNorm: 936641 1 Tablet(s) PO QD 07/02/2009 010 Inactive lisinopril-hydrochlorothiazide 20 mg-12.5 mg Tab RxNorm: 197 886 2 Tablet(s) PO QAM No Start Date 10/12/2010 Inactive Zofran ODT 4 mg disintegrating tablet RxNorm: 323568 1 Tablet(s) PO Q6H as needed for nausea No Start Date 09/14/2016 Inactive Wellbutrin XL 300 mg 24 hr Tab RxNorm: 155375 1 Tablet(s) PO QD No Start Date 02/02/2010 Inactive alprazolam 0.25 mg tablet RxNorm: 625797 1 Tablet(s) PO prior t o flight No Start Date 05/24/2017 Inactive hydrocodone-acetaminophen 5 mg-500 mg Tab RxNorm: 978270 1-2 Tablet(s) PO Q4H as needed for pain No Start Date 12/02/2010 Inactive Toprol XL 100 mg 24 hr Tab RxNorm: 180999 1 Tablet(s) PO QD No Star t Date 10/14/2013 Inactive Celebrex 200 mg capsule RxNorm: 627173 1 Capsule(s) PO QD No Start Date 05/22/2017 Inactive Flexeril 10 mg tablet RxNorm: 722820 1 Tablet(s) PO TID No Start Da te 04/02/2019 Inactive scopolamine 1 mg over 3 days transdermal patch RxNorm: 54103 2 1 TD take off in 72 hours. No Start Date 07/31/2017 Inactive OneTouch Ultra Test strips RxNorm: Test blood sugar daily No S tart Date 04/23/2018 Inactive Medrol (Dale) 4 mg tablets in a dose pack RxNorm: 305794 Tablet(s) PO As directed No Start Date 01/15/2014 Inactive Coumadin 5 mg Tab RxNorm: 879385 1 Tablet(s) PO QD No Start Date 06/19 Inactive Pepcid 40 mg Tab RxNorm: 316539 1 Tablet(s) PO QD No Start Date 06/23 Inactive prednisone 10 mg Tab RxNorm: 867308 1 Tablet(s) PO BID No Start Date 06/23/2010 Inactive spironolactone 25 mg tablet RxNorm: 141640 1 Tablet(s) PO QAM No St art Date 09/26/2018 Inactive scopolamine 1.5 mg 72 hr Transderm Patch RxNorm: 279294 TD Apply 1 patch behind ear every 72 hours, replace after 3 days. No Start Date 11/07/2012 Inacti ve azithromycin 250 mg Tab RxNorm: 141771 Tablet(s) PO 2 t abs on day one and one tab on days 2-5. (antibiotic) No Start Date 10/10/2011 Inactive Medrol (Dale) 4 mg Tabs in a Dose Pack RxNorm: 009849 1 Tablet(s) PO as directed. (steroid pack) No Start Date 10/10/2011 Inactive Lovenox 40 mg/0.4 mL subcutaneous syringe RxNorm: 789674 40 Mil ligram(s) SQ QD No Start Date 05/04/2018 Inactive Celebrex 200 mg capsule RxNorm: 075210 1 Capsule(s) PO BID as n eeded for pain No Start Date 01/13/2017 Inactive warfarin 1 mg tablet RxNorm: 674921 1 Tablet(s) PO As directed on Tue and No Start Date 08/10/2012 Inactive cefuroxime axetil 500 mg Tab RxNorm: 510056 1 Tablet(s) PO BID No S tart Date 06/13/2011 Inactive Lovenox 40 mg/0.4 mL subcutaneous syringe RxNorm: 034069 40 Mil ligram(s) SQ QD No Start Date 01/26/2018 Inactive Coumadin 5 mg tablet RxNorm: 103884 1 Tablet(s) PO QD No Start Date 0 08/13/2013 Inactive Medrol (Dale) 4 mg tablets in a dose pack RxNorm: 926490 Tablet(s) PO as directed No Start Date 01/17/2014 Inactive Coumadin 6 mg tablet RxNorm: 943559 1 Tablet(s) PO QD No Start Date 0 06/20/2016 Inactive warfarin 5 mg tablet RxNorm: 988967 1 Tablet(s) PO QD No Start Date 0 12/02/2011 Inactive Medrol (Dale) 4 mg Tabs in a Dose Pack RxNorm: 148319 Tablet(s) PO as directed No Start Date 06/23/2010 Inactive Flonase 50 mcg/actuation nasal spray,suspension RxNorm: 8963 23 2 [place]clean NASAL BID No Start Date 12/05/2014 Inactive Pepcid 20 mg tablet RxNorm: 152025 1 Tablet(s) PO BID as needed No Start Date 11/02/2012 Inactive spironolactone 25 mg tablet RxNorm: 772932 1 Tablet(s) PO QAM No St art Date 04/02/2019 Inactive Medication Administered No Medication Administered data Immunizations No Immunization data Results Observation Observation Code Item Item Code Result Date S ervice Location MICROALBUMIN URINE RANDOM 08295 CREAT MG/D 139 MG/DL Unknown MICROALBUMIN URINE RANDOM 52824 CRE/100 1.39 G/L 12/20 Unknown Procedures Procedure Codes Date URINALYSIS NONAUTO W/O SCOPE CPT-4: 79017 09/27/2018 URINE CULTURE/ COLONY COUNT CPT-4: 46726 09/27/2018 URINALYSIS NONAUTO W/O SCOPE CPT-4: 61544 10/13/2017 URINE CULTURE/ COLONY COUNT CPT-4: 84732 10/13/2017 STREP A ASSAY W/OPTIC CPT-4: 66460 06/21/2016 STREP A ASSAY W/OPTIC CPT-4: 26952 06/24/2014 THER/PROPH/DIAG INJ SC/IM CPT-4: 91122 03/22/2014 METHYLPREDNISOLONE 40 MG INJ CPT-4: J1030 03/22/2014 TRIAMCINOLONE ACET INJ NOS CPT-4: J3301 03/22/2014 URINALYSIS NONAUTO W/O SCOPE CPT-4: 93448 10/19/2013 URINE CULTURE/ COLONY COUNT CPT-4: 47291 10/19/2013 CEFTRIAXONE SODIUM INJECTION CPT-4: J0696 03/02/2013 THER/PROPH/DIAG INJ SC/IM CPT-4: 26926 03/02/2013 CEFTRIAXONE SODIUM INJECTION CPT-4: J0696 03/01/2013 THER/PROPH/DIAG INJ SC/IM CPT-4: 37447 03/01/2013 THER/PROPH/DIAG INJ SC/IM CPT-4: 43830 03/01/2013 METHYLPREDNISOLONE 40 MG INJ CPT-4: J1030 03/01/2013 TRIAMCINOLONE ACET INJ NOS CPT-4: J3301 03/01/2013 MICROALBUMIN QUANTITATIVE CPT-4: 55668 01/11/2013 URINE CULTURE/ COLONY COUNT CPT-4: 57834 05/04/2012 URINALYSIS NONAUTO W/O SCOPE CPT-4: 54375 05/04/2012 URINE CULTURE/ COLONY COUNT CPT-4: 89041 05/29/2010 TRIAMCINOLONE ACET INJ NOS CPT-4: J3301 05/20/2010 METHYLPREDNISOLONE 40 MG INJ CPT-4: J1030 05/20/2010 THER/PROPH/DIAG INJ SC/IM CPT-4: 15197 05/20/2010 Vital Signs Date Vital 05/09/2019 Blood [...] 1: 134/78 Code: 8480-6 BMI: 35.1 Code: 20796-7 Heart Rate 1: 76 bpm Height: 5'9" Respiratory Rate: 20 bpm Temperature: 36 .6 (C) / 97.8 (F) Weight: 238 lbs 12/27/2017 Blood Pressure 1: 126/64 Code: 8480-6 BMI: 34.7 Code: 05921-0 Heart Rate 1: 72 bpm Height: 5'9" Respiratory Rate: 20 bpm Temperature: 36 .8 (C) / 98.2 (F) Weight: 235 lbs 10/12/2017 Blood Pressure 1: 142/80 Code: 8480-6 BMI: 35.1 Code: 93153-1 Heart Rate 1: 98 bpm Height: 5'9" Respiratory Rate: 22 bpm SpO2: 100% Tempera ture: 36.5 (C) / 97.7 (F) Weight: 238 lbs 09/16/2017 Blood Pressure 1: 136/82 Code: 8480-6 BMI: 34.1 Code: 49612-7 Heart Rate 1: 82 bpm Height: 5'9" Respiratory Rate: 18 bpm SpO2: 96% Tempera ture: 36.3 (C) / 97.3 (F) Weight: 231 lbs 05/25/2017 Blood Pressure 1: 122/82 Code: 8480-6 BMI: 32.3 Code: 84459-3 Heart Rate 1: 116 bpm Height: 5'9" Respiratory Rate: 20 bpm SpO2: 98% Tempera ture: 35.6 (C) / 96.1 (F) Weight: 219 lbs 01/03/2017 Blood Pressure 1: 126/78 Code: 8480-6 BMI: 33.4 Code: 27267-3 Heart Rate 1: 72 bpm Height: 5'9" Respiratory Rate: 20 bpm Temperature: 36 .8 (C) / 98.2 (F) Weight: 226 lbs 09/23/2016 Blood Pressure 1: 126/82 Code: 8480-6 BMI: 33.8 Code: 75949-7 Heart Rate 1: 80 bpm Height: 5'9" Respiratory Rate: 20 bpm SpO2: 97% Tempera ture: 36.8 (C) / 98.2 (F) Weight: 229 lbs 09/03/2016 Blood Pressure 1: 188/64 Code: 8480-6 Bl ood Pressure 2: 166/92 Code: 8480-6 BMI: 34.4 Code: 75948-1 Heart Rate 1: 66 bpm Height: 5'9" Res piratory Rate: 20 bpm SpO2: 98% Temperature: 35.7 (C) / 96.2 (F) Weight: 233 lbs 07/08/2016 Blood Pressure 1: 134/82 Code: 8480-6 Heart Rate 1: 64 bpm Height: 5'9" Respiratory Rate: 20 bpm SpO2: 97% Temperature: 36.6 (C) / 97.8 (F) Weight: 06/21/2016 Blood Pressure 1: 112/68 Code: 8480-6 BMI: 33.8 Code: 56167-5 Heart Rate 1: 64 bpm Height: 5'9" Respiratory Rate: 20 bpm SpO2: 95% Tempera ture: 36.3 (C) / 97.3 (F) Weight: 229 lbs 02/23/2016 Blood Pressure 1: 128/78 Code: 8480-6 BMI: 33.4 Code: 06413-6 Heart Rate 1: 74 bpm Height: 5'9" [...] 1: 122/80 Code: 8480-6 BMI: 32.2 Code: 57164-0 Heart Rate 1: 80 bpm Height: 5'9" Respiratory Rate: 20 bpm Temperature: 37 .0 (C) / 98.6 (F) Weight: 218 lbs 08/09/2014 Blood Pressure 1: 132/84 Code: 8480-6 BMI: 33.1 Code: 98470-8 Heart Rate 1: 72 bpm Height: 5'9" Respiratory Rate: 20 bpm Temperature: 36 .7 (C) / 98.0 (F) Weight: 224 lbs 06/24/2014 Blood Pressure 1: 132/80 Code: 8480-6 BMI: 32.8 Code: 36526-0 Heart Rate 1: 68 bpm Height: 5'9" Respiratory Rate: 20 bpm Temperature: 36 .4 (C) / 97.6 (F) Weight: 222 lbs 03/22/2014 Blood Pressure 1: 128/84 Code: 8480-6 BMI: 32.5 Code: 81513-3 Heart Rate 1: 78 bpm Height: 5'9" Respiratory Rate: 22 bpm Temperature: 36 .0 (C) / 96.8 (F) Weight: 220 lbs 03/05/2014 Blood Pressure 1: 124/78 Code: 8480-6 BMI: 31.9 Code: 52427-2 Heart Rate 1: 82 bpm Height: 5'9" Respiratory Rate: 20 bpm Temperature: 35 .8 (C) / 96.4 (F) Weight: 216 lbs 01/16/2014 Blood Pressure 1: 116/68 Code: 8480-6 BMI: 33.8 Code: 89177-6 Heart Rate 1: 72 bpm Height: 5'7" Respiratory Rate: 20 bpm Temperature: 36 .6 (C) / 97.9 (F) Weight: 216 lbs 05/10/2013 Blood Pressure 1: 124/86 Code: 8480-6 BMI: 34.3 Code: 13364-3 Heart Rate 1: 84 bpm Height: 5'7" Respiratory Rate: 20 bpm Temperature: 36 .9 (C) / 98.5 (F) Weight: 219 lbs 04/17/2013 Blood Pressure 1: 11668 Code: 8480-6 Heart Rate 1: 74 bpm [...] 1: 116/84 Code: 8480-6 BMI: 33.1 Code: 20659-8 Heart Rate 1: 64 bpm Height: 5'9" Respiratory Rate: 20 bpm Temperature: 36 .4 (C) / 97.6 (F) Weight: 224 lbs 01/11/2013 Blood Pressure 1: 126/84 Code: 8480-6 BMI: 35.3 Code: 31637-1 Heart Rate 1: 68 bpm Height: 5'9" Respiratory Rate: 20 bpm Temperature: 36 .7 (C) / 98.1 (F) Weight: 239 lbs 11/03/2012 Blood Pressure 1: 104/70 Code: 8480-6 BMI: 34.4 Code: 21468-4 Heart Rate 1: 72 bpm Height: 5'9" Respiratory Rate: 20 bpm Temperature: 36 .8 (C) / 98.3 (F) Weight: 233 lbs 05/04/2012 Blood Pressure 1: 124 Code: 8480-6 BMI: 33.7 Code: 73718-1 Heart Rate 1: 84 bpm Height: 5'9" Temperature: 36.3 (C) / 97.3 (F) Weight: 228 lbs 10/11/2011 Blood Pressure 1: 110/70 Code: 8480-6 BMI: 33.7 Code: 84228-9 Heart Rate 1: 64 bpm Height: 5'9" Temperature: 36.8 (C) / 98.3 (F) Weight: 228 lbs 06/23/2011 Blood Pressure 1: 114/70 Code: 8480-6 BMI: 33.4 Code: 02520-5 Heart Rate 1: 80 bpm Height: 5'9" Respiratory Rate: 20 bpm Temperature: 36 .7 (C) / 98.0 (F) Weight: 226 lbs 06/14/2011 Blood Pressure 1: 118/74 Code: 8480-6 BMI: 33.4 Code: 25978-6 Heart Rate 1: 80 bpm Height: 5'9" [...] 1: 126/82 Code: 8480-6 BMI: 32.6 Code: 78346-9 Heart Rate 1: 68 bpm Height: 5'9" [...] 1: 140/92 Code: 8480-6 BMI: 31.3 Code: 78659-4 Heart Rate 1: 60 bpm Height: 5'10" [...] upper back on 08/13/16 while camping around [place], [place]. Patient states is tender around tick [...] 01/22/2010 Encounters Encounter Performer Location Codes Date ([id number]) OFFICE/OUTPATIENT VISIT EST Diagnosis: Type 2 diabetes mellitus without complications[ICD10: E11.9] Jessica VO DomingaLloyd [facility] CPT-4: 84612 05/09/2019 ([id number]) OFFICE/OUTPATIENT VISIT EST Diagnosis: Type 2 diabetes mellitus without complications[ICD10: E11.9] Diagnosis: Essential hypertension[ICD10: I10] Jessica Anderson [facility] CPT-4: 72516 04/03/2019 ([id number]) OFFICE/OUTPATIENT VISIT EST Diagnosis: Gastro-esophageal reflux disease without esophagitis[ICD10: K21.9] Diagnosis: Urinary tract infection, site not specified[ICD10: N39.0] Diagnosis: Ventral hernia without obstruction or gangrene[ICD10: K43.9] Jessica Michaelcorby VO DomingaLloyd [facility] CPT-4: 04551 09/27/2018 ([id number]) OFFICE/OUTPATIENT VISIT EST Diagnosis: Essential (primary) hypertension[ICD10: I10] Diagnosis: Type 2 diabetes mellitus without complications[ICD10: E11.9] Diagnosis: Carpal tunnel syndrome, right upper limb[ICD10: G56.01] Diagnosis: Primary insomnia[ICD10: F51.01] Jessica VO DomingaLloyd [facility] CPT-4: 69686 04/24/2018 ([id number]) OFFICE/OUTPATIENT VISIT EST Diagnosis: Type 2 diabetes mellitus without complications[ICD10: E11.9] Diagnosis: Mixed hyperlipidemia[ICD10: E78.2] Diagnosis: Essential (primary) hypertension[ICD10: I10] Diagnosis: Pain in unspecified joint[ICD10: M25.50] Jessica Anderson MICHAELBLUEMALVIN [facility] CPT-4: 91270 12/27/2017 ([id number]) NURSE/OUTPATIENT VISIT EST Diagnosis: Hematuria, unspecified[ICD10: R31.9] [facility]: 33427 10/13/2017 ([id number]) OFFICE/OUTPATIENT VISIT EST Diagnosis: Pleurodynia[ICD10: R07.81] Sofi CAMPUZANO DO [facility] CPT-4: 45659 10/12/2017 ([id number]) OFFICE/OUTPATIENT VISIT EST Diagnosis: Acute bronchitis, unspecified[ICD10: J20.9] Sofi [facility]EE [facility] CPT-4: 48376 09/16/2017 ([id number]) OFFICE/OUTPATIENT VISIT EST Diagnosis: Other specified postprocedural states[ICD10: Z98.890] Diagnosis: Cellulitis of neck[ICD10: L03.221] Diagnosis: Tachycardia, unspecified[ICD10: R00.0] Jessica [facility] CPT-[facility]: 38275 05/25/2017 ([id number]) OFFICE/OUTPATIENT VISIT EST Diagnosis: Lumbago with sciatica, right side[ICD10: M54.41] Diagnosis: Pain in unspecified joint[ICD10: M25.50] Jessica [facility] CPT-[facility]: 84567 01/03/2017 ([id number]) OFFICE/OUTPATIENT VISIT EST Diagnosis: Bitten or stung by nonvenomous insect and other nonvenomous arthropods, subsequent encounter[ICD10: W57.XXXD] Diagnosis: Essential (primary) hypertension[ICD10: I10] Diagnosis: Low back pain[ICD10: M54.5] Jessica VO S. Lizz [facility] CPT-4: 78796 09/23/2016 OFFICE/OUTPATIENT VISIT EST Diagnosis: Bitten or stung by nonvenomous insect and other nonvenomous arthropods, initial encounter[ICD10: W57.XXXA] Diagnosis: Essential (primary) hypertension[ICD10: I10] Kaitlynn Mosley [facility]ICA [facility] CPT-4: 87808 09/03/2016 ([id number]) OFFICE/OUTPATIENT VISIT EST Diagnosis: Low back pain[ICD10: M54.5] Diagnosis: Radiculopathy, lumbosacral region[ICD10: M54.17] Jessica GEE DO [facility] CPT-4: 86141 07/08/2016 ([id number]) OFFICE/OUTPATIENT VISIT EST Diagnosis: Acute pharyngitis, unspecified[ICD10: J02.9] Jessica GEE DO [facility] CPT-4: 16371 06/21/2016 ([id number]) OFFICE/OUTPATIENT VISIT EST Diagnosis: Cough[ICD10: R05] Diagnosis: Fever, unspecified[ICD10: R50.9] Janiya GEE [facility] CPT-4: 33184 02/23/2016 ([id number]) OFFICE/OUTPATIENT VISIT EST Diagnosis: Acute sinusitis, unspecified[ICD10: J01.90] Jessica GEE [facility] CPT-4: 40617 02/16/2016 OFFICE/OUTPATIENT VISIT EST Diagnosis: Type 2 diabetes mellitus without complications[ICD10: E11.9] Diagnosis: Gastro-esophageal reflux disease without esophagitis[ICD10: K21.9] Diagnosis: Ventral hernia without obstruction or gangrene[ICD10: K43.9] Suki FerreiraLucilaamrit GEE [facility] CPT-4: 65511 02/11/2015 OFFICE/OUTPATIENT VISIT EST 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 CPT-4: 42643 06/24/2014 OFFICE/OUTPATIENT VISIT EST Diagnosis: SINUSITIS, ACUTE[ICD9: 461.9] Diagnosis: EUSTACHIAN TUBE DYSFUNCTION[ICD9: 381.81] Diagnosis: COUGH[ICD9: 786.2] Suki GEE DO [facility] CPT-4: 61134 03/22/2014 OFFICE/OUTPATIENT VISIT EST Diagnosis: Elbow pain, right[ICD9: 719.42] Suki [facility] CPT-4: 59433 03/05/2014 OFFICE/OUTPATIENT VISIT EST Diagnosis: SINUSITIS, ACUTE[ICD9: 461.9] Jessica [facility] CPT-4: 75059 01/16/2014 ([id number]) OFFICE/OUTPATIENT VISIT EST Diagnosis: GROSS HEMATURIA[ICD9: 599.71] Jessica [facility] CPT-4: 54772 10/19/2013 ([id number]) OFFICE/OUTPATIENT VISIT EST Diagnosis: DM W/O COMPLICATION TYPE II[ICD9: 250.00] Diagnosis: HYPERLIPIDEMIA NEC/NOS[ICD9: 272.4] Jessica [facility]EE [facility] CPT-4: 78732 05/10/2013 ([id number]) OFFICE/OUTPATIENT VISIT EST Diagnosis: SINUSITIS, ACUTE[ICD9: 461.9] Jessica [facility] CPT-4: 06219 04/17/2013 OFFICE/OUTPATIENT VISIT EST Diagnosis: OTITIS MEDIA NOS[ICD9: 382.9] Diagnosis: COUGH[ICD9: 786.2] Suki [facility] CPT-4: 98579 03/05/2013 OFFICE/OUTPATIENT VISIT EST Diagnosis: COUGH[ICD9: 786.2] Diagnosis: BRONCHITIS, ACUTE[ICD9: 466.0] Suki [facility] CPT-4: 92675 03/02/2013 OFFICE/OUTPATIENT VISIT EST Diagnosis: COUGH[ICD9: 786.2] Diagnosis: OTITIS MEDIA NOS[ICD9: 382.9] Diagnosis: BRONCHITIS, ACUTE[ICD9: 466.0] Suki FerreiraLucilaamrit [facility] CPT-4: 90065 03/01/2013 OFFICE/OUTPATIENT VISIT EST Diagnosis: DM W/O COMPLICATION TYPE II, UNCONTROLLED[ICD9: 250.02] Jessica Anderson [facility] CPT-4: 22936 02/22/2013 ([id number]) PREV VISIT EST AGE 40-64 Diagnosis: DM W/O COMPLICATION TYPE II, UNCONTROLLED[ICD9: 250.02] Diagnosis: HYPERTENSION[ICD9: 401.9] Diagnosis: ROUTINE MEDICAL EXAM[ICD9: V70.0] Jessica Mccormick ITALIA E Monica [facility] CPT-4: 25634 01/11/2013 OFFICE/OUTPATIENT VISIT EST Diagnosis: HZ (HERPES ZOSTER)[ICD9: 053.9] [facility]lynn [facility]: 38716 11/03/2012 OFFICE/OUTPATIENT VISIT EST Diagnosis: URINARY TRACT INFECTION[ICD9: 599.0] Diagnosis: GERD[ICD9: 530.81] Diagnosis: PHARYNGITIS, ACUTE[ICD9: 462] [facility]: 34890 05/04/2012 OFFICE/OUTPATIENT VISIT EST Diagnosis: COUGH[ICD9: 786.2] Diagnosis: SINUSITIS, ACUTE[ICD9: 461.9] Diagnosis: PHARYNGITIS, ACUTE[ICD9: 462] Jessica Marlen SM[facility] C[facility]: 19662 10/11/2011 OFFICE/OUTPATIENT VISIT EST Diagnosis: COUGH[ICD9: 786.2] Diagnosis: SINUSITIS, ACUTE[ICD9: 461.9] Diagnosis: PHARYNGITIS, ACUTE[ICD9: 462] Diagnosis: ALLERGIC RHINITIS[ICD9: 477.9] Xiomara Rodriguez JESSICA Dominga Desai [facility] CPT-4: 87368 06/23/2011 OFFICE/OUTPATIENT VISIT EST Diagnosis: COUGH[ICD9: 786.2] Diagnosis: SINUSITIS, ACUTE[ICD9: 461.9] Diagnosis: PHARYNGITIS, ACUTE[ICD9: 462] Jessica Anderson [facility] CPT-4: 15673 06/14/2011 OFFICE/OUTPATIENT VISIT EST Diagnosis: SINUSITIS, ACUTE[ICD9: 461.9] Diagnosis: PHARYNGITIS, ACUTE[ICD9: 462] Jessica VO S. [facility] CPT-4: 54584 12/02/2010 OFFICE/OUTPATIENT VISIT EST Diagnosis: HYPERTENSION[ICD9: 401.9] Diagnosis: HYPERLIPIDEMIA NEC/NOS[ICD9: 272.4] Diagnosis: DERMATITIS NOS[ICD9: 692.9] Jessica SMITHLINE S. O RENDER DO [facility] CPT-4: 51026 11/12/2010 OFFICE/OUTPATIENT VISIT EST Jessica VO S. ORE NDER DO [facility] CPT- 4: 03119 10/13/2010 ([id number]) OFFICE/OUTPATIENT VISIT EST Jessica Marlen HARKINS UJOANNA S. ORENDER DO [facility] CPT-4: 38615 06/24/2010 ([id number]) OFFICE/OUTPATIENT VISIT EST Jessica [facility] CPT-4: 36441 06/08/2010 ([id number]) OFFICE/OUTPATIENT VISIT EST Xiomara Rodriguez JESSICA S . ORENDER DO [facility] CPT-4: 44023 05/20/2010 ([id number]) OFFICE/OUTPATIENT VISIT EST Jessica BELTRAN S. ORENDER DO [facility] CPT-4: 47657 04/30/2010 ([id number]) OFFICE/OUTPATIENT VISIT, EST Jessica MANZANO S. ORENDER DO [facility] CPT-4: 65066 01/22/2010 Plan of Care Planned Activity Notes Codes Status Date Visit Diagnosis Plan: Type 2 diabetes mellitus without complications Discussion: Increase Jardience to 25mg daily Acccuchecks daily Check CMP, HbA1C in 2mos then fwup ICD-9 : 250.00 ICD-10 : E11.9 05/09/2019 Appointment: Jessica Gee WPtel: [address] [facility] [address] FOLLOW UP 05/09/2019 Patient Education: Jardiance Patient Savings Message Alert Completed 05/09/2019 Visit Diagnosis Plan: Type 2 diabetes mellitus without complications Discussion: Lab discussed Add jardience 10mg po q AM Hold spironolactone Accuchecks daily alternating times Fwup 1 month with BS readings Notify if any signs of yeast infection ICD-9 : 250.00 ICD-10 : E11.9 04/03/2019 Appointment: Jessica Gee WPtel: [address] [place], [place] [id number] FOLLOW UP 04/03/2019 Visit Diagnosis Plan: Urinary [...] : K21.9 09/27/2018 Appointment: Jessica Gee WPtel: [address] [place], [place] [phone] ACUTE ILLNESS 09/27/2018 Visit Diagnosis Plan: Carpal [...] F51.01 04/24/2018 Appointment: Jessica Gee WPtel: [address] [facility] [address] AC[place]LL[place] 04/24/2018 Patient Education: celecoxib- [employer] [id number] Completed 04/24/2018 Patient Education: amitriptyline- [employer] [id number] Completed 04/24/2018 Visit Diagnosis Plan: Type 2 [...] M25.50 12/27/2017 Appointment: Jessica Gee WPtel: [address] [facility] [address] FOLLOW UP 12/27/2017 Patient Education: Patient Medication Summary Completed 12/27/2017 Patient Education: Patient Medication Summary Completed 12/19/2017 Care Plan: MAMMOGRAM BOTH BREASTS LOINC : 08247-8 Pending 12/19/2017 Patient Education: Patient Medication Summary Completed 12/16/2017 Care Plan: ASSAY THYROID STIM HORMONE Pen ding 12/16/2017 Care Plan: ASSAY OF FREE THYROXINE Pendin g 12/16/2017 Care Plan: LIPID PANEL LOINC : 44025-3 Pending 12/16/2017 Care Plan: CBC Pending 12/16/2017 Care Plan: A1C HPLC LOINC : 13460-5 Pending 12/16/2017 Patient Education: Patient Medication Summary Completed 10/17/2017 Care Plan: CT ANGIOGRAPHY CHEST LOINC : 96777-3 Pending 10/17/2017 Patient Education: Patient Medication Summary Completed 10/14/2017 Care Plan: CT ANGIOGRAPHY CHEST LOINC : 54082-7 Pending 10/14/2017 Appointment: Jessica Gee WPtel: [address] [facility] [address] [place] UA 10/13/2017 Patient Education: Patient Medication Summary [...] : R07.81 10/12/2017 Appointment: Sofi Gresham [address] ACUTE ILLNESS 10/12/2017 Patient Education: Patient Medication [...] ICD-10 : J20.9 09/16/2017 Appointment: Sofi Gresham [address] [place] [address] ACUTE ILLNESS 09/16/2017 Patient Education: Patient Medication Summary Completed 09/16/2017 Appointment: Jessica Gee WPtel: [address] [id number] US CANCELED 08/10/2017 Visit Diagnosis Plan: Cellulitis [...] : R00.0 05/25/2017 Appointment: Jessica Gee WPtel: [address] [facility] [address] FOLLOW UP 05/25/2017 Patient Education: Patient Medication Summary Completed 05/25/2017 Visit Diagnosis Plan: Lumbago with sciatica, right britton e Discussion: Check arthritis panel Patient awaiting neck surgery before surgery will consider back surgery ICD-9 : 724.2 ICD-10 : M54.41 01/03/2017 Appointment: Jessica Gee WPtel: [address] [facility] [address] AC[place] ILL[place] 01/03/2017 Patient Education: Patient Medication Summary Completed 01/03/2017 Patient Education: Patient Medication Summary Completed 12/16/2016 Care Plan: MAMMOGRAM SCREENING LOINC : 2 6347-5 Pending 12/16/2016 Patient Education: Patient Medication Summary Completed 10/07/2016 Care Plan: MRI LUMBAR SPINE W/O & W/DYE LOINC : 11628-0 Pending 10/07/2016 Visit Diagnosis Plan: Essential (primary) [...] W57.XXXD 09/23/2016 Appointment: Jessica Gee WPtel: [address] [facility] [address] 09/22 confirmed WORK IN 09/23/2016 Patient Education: Patient Medication Summary Completed 09/23/2016 Visit Plan: Tick panel at [facility] Increa se spironolactone to 2 po am (New Rx sent) Take B/P at home/work and also come to office next week for recheck Will await lab results before starting any antibiotic 09/03/2016 Appointment: Kaitlynn Mosley WPtel: [address] [place] [address] ACUTE ILLNESS 09/03/2016 Patient Education: Patient Medication Summary Completed 09/03/2016 Visit Diagnosis Plan: Low back pain Discussion: Celebr ex BID PT Continue stretches at home L/S xray Follow Up: 1 months ICD-9 : 724.2 ICD-10 : M54.5 07/08/2016 Appointment: Jessica Gee WPtel: [address] [place] [address] ACUTE ILLNESS 07/08/2016 Patient Education: Patient Medication Summary Completed 07/08/2016 Care Plan: X-RAY EXAM L-S SPINE 2/ VWS LOINC : 65350-7 Pending 07/08/2016 Visit Plan: Supportive care. Rest, Fluid s, Tylenol/Motrin prn fever or bodyaches. Notify if worsening symptoms.New toothebrush in 5 days 06/21/2016 Visit NOS Plan: Plan Notes: Supportive care. Rest, Fluids... 06/21/2016 Visit Diagnosis Plan: Acute pharyngitis, unspecified D iscussion: Strep Negative Supportive Care May use zyrtec 10mg q HS ICD-9 : 462 ICD-10 : J02.9 06/21/2016 Appointment: Jessica Gee WPtel: [address] [place] [address] ACUTE ILLNESS 06/21/2016 Patient Education: Patient Medication Summary Completed 06/21/2016 Visit Plan: No pulseox last week to comp are to today, but she does sound diminished today Studies as above ordered Continue cefdinir until results received Increase albuterol treatments to q4-6hrs PRN Continue supportive care 02/23/2016 Appointment: Janiya Gregorio [address] [place] [address] ACUTE ILLNESS 02/23/2016 Patient Education: Patient Medication Summary Completed 02/23/2016 Care Plan: CHEST X-RAY 2VW FRONTAL&LATL LOINC : 26517-3 Pending 02/23/2016 Visit Plan: Saline nasal flushes prn. Ty lenol/Motrin prn headache. Notify if persists/symptoms worsening. 02/16/2016 Appointment: Jessica Gee WPtel: [address] [place], [place] [phone] ACUTE ILLNESS 02/16/2016 Patient Education: Patient Medication Summary Completed 02/16/2016 Visit Plan: Discussed labs Continue Topr ol at 200 mg PO daily Increase Aciphex to BID Notify if increase of Aciphex does not give relief. Repeat PT/INR in 2 weeks. 02/11/2015 Appointment: Suki Barahona WPtel: [address] [place], [place] [address] 02/10 confirmed ~sl FOLLOW UP 02/11/2015 Patient Education: Patient Medication Summary Completed 02/11/2015 Patient Education: Patient Medication Summary Completed 02/06/2015 Care Plan: POC PROTIME/INR LOINC : 44296 -6 Pending 02/06/2015 Visit Plan: Increase Toprol XL 200 mg to one full tablet daily (is currently taking only 1/2 tablet) To for EKG today Monitor daily BP Notify of any changes- increased numbness, weakness, headache etc. 01/28/2015 Appointment: Suki Barahona WPtel: [address] [place], [place] [id number] ACUTE ILLNESS 01/28/2015 Patient Education: Patient Medication Summary Completed 01/28/2015 Visit Plan: ERx Amoxicillin and Flonase Nasal saline, humidified air Facial heat or cold packs for comfort Increase fluids/rest Discussed s/s of worsening, go to over weekend if these occur. 12/06/2014 Appointment: Kaitlynn Mosley WPtel: [address] [place], [place] [address] ACUTE ILLNESS 12/06/2014 Patient Education: Patient Medication Summary Completed 12/06/2014 Appointment: Kaitlynn Mosley WPtel: [address] [place], [place] [id number] ACUTE ILLNESS 08/09/2014 Patient Education: Patient Medication Summary Completed 08/09/2014 Appointment: Suki Barahona WPtel: [address] [place] [address] ACUTE ILLNESS 06/24/2014 Patient Education: Patient Medication Summary Completed 06/24/2014 Appointment: Suki Barahona WPtel: [address] [place] [address] ACUTE ILLNESS 03/22/2014 Patient Education: Patient Medication Summary Completed 03/22/2014 Patient Education: [employer] - Antibi otics, Analgesics 18+, Oral Contraceptives F 18+ Completed 03/22/2014 Appointment: Suki Barahona WPtel: [address] [place] [address] FOLLOW UP 03/05/2014 Patient Education: Patient Medication Summary Completed 03/05/2014 Visit Plan: Saline nasal flushes prn. Ty lenol/Motrin prn headache. Notify if persists/symptoms worsening. Restart flonase 01/16/2014 Appointment: Jessica Gee WPtel: [address] [place] [address] ACUTE ILLNESS 01/16/2014 Patient Education: Patient Medication Summary Completed 01/16/2014 Appointment: Jessica Gee WPtel: [address] [place] [address] 10/19/2013 Patient Education: Patient Medication Summary Completed 10/19/2013 Appointment: Jessica Gee WPtel: [address] [place] [address] 08/08 patient canceled appt and said will call back to [facility] FOLLOW UP 08/09/2013 Visit Plan: Increase Coumadin to 6mg M-F and stay on 5mg Sat, Sun Add lipids to labs Check PT/INR in 3wks Continue metfromin at current dose and accuchecks 05/10/2013 Appointment: Jessica Gee WPtel: [address] [place] [address] 05/09 FOLLOW UP 05/10/2013 Patient Education: Patient Medication Summary Completed 05/10/2013 Visit Plan: Saline nasal flushes prn. Ty lenol/Motrin prn headache. Notify if persists/symptoms worsening. 04/17/2013 Appointment: Jessica Gee WPtel: [address] [place] [address] ACUTE ILLNESS 04/17/2013 Patient Education: Patient Medication Summary Completed 04/17/2013 Appointment: Suki Barahona WPtel: [address] [place] [address] FOLLOW UP 03/05/2013 Patient Education: Patient Medication Summary Completed 03/05/2013 Appointment: Suki Barahona WPtel: [address] [place] [address] FOLLOW UP 03/02/2013 Patient Education: Patient Medication Summary Completed 03/02/2013 Appointment: Suki Barahona WPtel: [address] [place] [address] ACUTE ILLNESS 03/01/2013 Patient Education: Patient Medication Summary Completed 03/01/2013 Visit Plan: Continue metformin and accuc hecks Add fish oil 1gram daily Check HbA1C, CMP in 2mos then fwup 02/22/2013 Appointment: Jessica Gee WPtel: [address] [place] [address] 02/21 [facility] FOLLOW UP 02/22/2013 Patient Education: Patient Medication Summary Completed 02/22/2013 Visit Plan: Start Metformin Start Accuch ecks daily alternating times Will go for dilated eye exam once BS more stabilized Diabetic foot care discussed Diabetic diet info given 01/11/2013 Appointment: Jessica Gee WPtel: [address] [place] [address] FOLLOW UP 01/11/2013 Patient Education: Patient Medication Summary Completed 01/11/2013 Appointment: Kaitlynn Mosley WPtel: [address] [place] [address] ACUTE ILLNESS 11/03/2012 Patient Education: Patient Medication Summary Completed 11/03/2012 Appointment: Xiomara Rodriguez WPtel: [address] [place] [address] ACUTE ILLNESS 05/04/2012 Patient Education: Patient Medication Summary Completed 05/04/2012 Visit Plan: pt reports that she always g ets yeast infections. Discussed that the antifungal can cause problems/increased bleeding with Coumdin. Pt. will start with probiotics and only take the Diflucan if needed. Cefdinir. 10/11/2011 Appointment: Xiomara Rodriguez WPtel: [address] [place] [address] ACUTE ILLNESS 10/11/2011 Patient Education: Patient Medication Summary Completed 10/11/2011 Appointment: Xiomara Rodriguez WPtel: [address] [place] [address] FOLLOW UP 06/23/2011 Patient Education: Patient Medication Summary Completed 06/23/2011 Visit Plan: Will prescribe an antibiotic and diflucan. Pt. reports that she frequently gets yeast infection. Discussed that she will notify if any symptoms persist. Pt. reports that her relatives have recently been hospitalized with pneumonia. 06/14/2011 Appointment: Xiomraa Rodriguez WPtel: [address] [place] [address] ACUTE ILLNESS 06/14/2011 Patient Education: Patient Medication Summary Completed 06/14/2011 Visit Plan: sample of veramyst. Cefuroxi me axetil. Pt. will focus on hydration and rest. Discussed comfort measures and monitoring for worsening symptoms. 12/02/2010 Appointment: Xiomara Rodriguez WPtel: [address] [place], [place] [address] ACUTE ILLNESS 12/02/2010 Patient Education: Patient Medication Summary Completed 12/02/2010 Visit Plan: Change HCTZ to spironolacton e will start zocor in 1 mo BP med in 1mo 11/12/2010 Appointment: Jessica Gee WPtel: [address] [place] [address] FOLLOW UP 11/12/2010 Patient Education: Patient Medication Summary Completed 11/12/2010 Appointment: Jessica Gee WPtel: [address] [place] [address] BP CHECK 10/26/2010 Patient Education: Patient Medication Summary Completed 10/26/2010 Visit Plan: Continue Toprol at bedtime A dd HCTZ in AM BP check in 2wks Fasting lab with next PT/INR 10/13/2010 Appointment: Jessica Gee WPtel: [address] [place] [address] FOLLOW UP 10/13/2010 Patient Education: Patient Medication Summary Completed 10/13/2010 Visit Plan: Cont abx. Fwup with surgery as scheduled 06/24/2010 Appointment: Jessica Gee WPtel: [address] [place] [address] Follow Up 06/24/2010 Patient Education: Patient Medication Summary Completed 06/24/2010 Appointment: Jessica Gee WPtel: [address] [place] [address] Hospital Follow Up 06/22/2010 Visit Plan: pt [...] to subside. 06/08/2010 Appointment: Xiomara Rodriguez WPtel: [address] [place] [address] ACUTE ILLNESS 06/08/2010 Patient Education: Patient Medication Summary Completed 06/08/2010 Appointment: Xiomara Rodriguez WPtel: [address] [place] [address] FOLLOW UP 06/01/2010 Appointment: Jessica Gee WPtel: [address] [place] [address] UA 05/29/2010 Patient Education: Patient Medication Summary Completed 05/29/2010 Appointment: Xiomara Rodriguez WPtel: [address] [place] [address] ACUTE ILLNESS 05/20/2010 Patient Education: Patient Medication Summary Completed 05/20/2010 Appointment: Jessica Gee WPtel: [address] [place] [address] BP CHECK 05/13/2010 Patient Education: Patient Medication Summary Completed 05/13/2010 Visit Plan: Increase Lisinopril hct to 2 0/12.5mg q AM Use atarax prn and routinely at bedtime and Medrol dose pack BP check in 3wks Pt defers stress test at this time 04/30/2010 Appointment: Jessica Gee WPtel: [address] [place] [address] ACUTE ILLNESS 04/30/2010 Patient Education: Patient Medication Summary Completed 04/30/2010 Appointment: Jessica Gee WPtel: [address] [place] [address] BP CHECK 02/27/2010 Patient Education: Patient Medication Summary Completed 02/27/2010 Visit Plan: Cont Toprol Add Altace 10mg QD Cont Wellbutrin Will likely add SSRI after BP stable BP check in 2wks 01/22/2010 Appointment: Jessica Gee WPtel: [address] [place] [address] ACUTE ILLNESS 01/22/2010 Patient Education: Patient Medication Summary Completed 01/22/2010 Referral: Rupa Raines WPtel: [address] [id number] [place] Referral Completed Referral: Neymar Alberts WPtel: [address] [address] [place] Referral Initiated Instructions Comment . Tick [...]
--- OUTSIDE RECORDS SUMMARY | 2019-09-10 03:03 | XMS REPORT | CCD ---
Author Author Nava Gee D.O. Organization [facility] Address [address] [place] [address] Phone Care Team Providers Care Cloth Carrier Name Role Phone Jessica Gee D.O., PP Unavailable CCM Unavailable Summary Purpose Interface Exchange Insurance Providers Payer name Policy type / Coverage type Covered libertarian ID Effective Begin Date Effective End Date Blue Cross Blue Shield Blue Cross/Blue Shield [id number] Unknown Family History Family History data not found Social History Social History Element Codes Description Effective Dates Tobacco history SNOMED CT: 938873665 Never smoker 10/13/2010 Allergies, Adverse Reactions, Alerts [...] findings ICD-9: V70.0 ICD-10: Z00.00 12/16/2017 Active [employer] (current) use of anticoagulants ICD-9: V58.6 1 [...] Fill Instructions warfarin 6 mg tablet RxNorm: 998784 1 Tablet(s) Oral QD 06/04/2019 No Stop Date Active metformin ER 500 mg tablet,extended release 24 hr RxNorm: 86 0975 TAKE 1 TABLET BY MOUTH TWICE DAILY 05/29/2019 07/27/2019 Active Jardiance 25 mg tablet RxNorm: 6491138 1 Tablet(s) Oral QD 05/09/19 20 05/23/2019 Inactive Jardiance 25 mg tablet RxNorm: 5709696 1 Tablet(s) Oral QAM 020 09/06/2019 Active Jardiance 10 mg tablet RxNorm: 6882457 1 Tablet(s) Oral QD 05/09/19 No Stop Date Active warfarin 1 mg tablet RxNorm: 865989 1 Tablet(s) Oral on Tue and with 6mg tablet (total 7mg) 05/09/2019 No Stop Date Active warfarin 6 mg tablet RxNorm: 098293 1 Tablet(s) Oral QD then on Tue/ take along with Warfarin 1mg (7mg) 05/09/2019 06/03/2019 Inactive warfarin 5 mg tablet RxNorm: 751822 1 Tablet(s) Oral QD 05/02/2019 Inactive warfarin 1 mg tablet RxNorm: 006025 TAKE 1 TABLET BY [facility] ONCE DAILY. TAKE AN ADDITIONAL TABLET ON TUESDAY AND Tuesday05/02/2019 05/08/2019 Inactiv e Coumadin 5 mg tablet RxNorm: 923816 TAKE 1 TABLET BY MOUTH ONCE DAILY 04/02/2019 05/02/2019 Inactive celecoxib 200 mg capsule RxNorm: 610942 TAKE 1 CAPSULE BY MOUTH TWICE DAILY 03/20/2019 06/17/2019 Active pravastatin 40 mg tablet RxNorm: 676856 TAKE 1 TABLET BY MOUTH ONCE DAILY 03/19/2019 06/16/2019 Active metformin ER 500 mg tablet,extended release 24 hr RxNorm: 86 0975 TAKE 1 TABLET BY MOUTH TWICE DAILY 03/19/2019 05/17/2019 Inactive Coumadin 5 mg tablet RxNorm: 387027 TAKE 1 TABLET BY MOUTH ONCE DAILY 02/28/2019 04/01/2019 Inactive warfarin 1 mg tablet RxNorm: 613497 TAKE 1 TABLET BY [facility] ONCE DAILY. TAKE AN ADDITIONAL TABLET ON TUESDAY AND Tuesday02/28/2019 05/01/2019 Inactiv e omeprazole 40 mg capsule,delayed release RxNorm: 643960 TAKE 1 CAPSULE BY MOUTH TWICE DAILY 02/19/2019 No Stop Date Active metformin ER 500 mg tablet,extended release 24 hr RxNorm: 86 0975 1 Tablet(s) PO BID 02/19/2019 03/18/2019 Inactive metformin ER 500 mg tablet,extended release 24 hr RxNorm: 86 0975 1 Tablet(s) PO BID 01/15/2019 02/13/2019 Inactive alprazolam 0.25 mg tablet RxNorm: 358276 1 Tablet(s) Oral prior to flight 01/03/2019 No Stop Date Active omeprazole 40 mg capsule,delayed release RxNorm: 552094 TAKE 1 CAPSULE BY MOUTH TWICE DAILY 12/20/2018 02/18/2019 Inactive metformin ER 500 mg tablet,extended release 24 hr RxNorm: 86 0975 1 Tablet(s) PO BID 12/11/2018 01/09/2019 Inactive pravastatin 40 mg tablet RxNorm: 748283 TAKE 1 TABLET BY MOUTH ONCE DAILY 12/11/2018 03/18/2019 Inactive Coumadin 5 mg tablet RxNorm: 193411 1 Tablet(s) PO QD 11/27/201809/2018 Inactive metformin ER 500 mg tablet,extended release 24 hr RxNorm: 86 0975 1 Tablet(s) PO BID 10/02/2018 11/30/2018 Inactive warfarin 1 mg tablet RxNorm: 078216 TAKE 1 TABLET BY [facility] ONCE DAILY. TAKE AN ADDITIONAL TABLET ON TUESDAY AND Tuesday10/02/2018 02/27/2019 Inactiv e Bactrim DS 800 mg-160 mg tablet RxNorm: 343462 1 Tablet(s) PO BID 0 09/27/2018 10/03/2018 Inactive warfarin 5 mg tablet RxNorm: 634991 1 Tablet(s) PO QD 09/27/201810/2018 Inactive Toprol XL 200 mg tablet,extended release RxNorm: 244055 1 Table t(s) PO QD 09/18/2018 03/16/2019 Inactive omeprazole 40 mg capsule,delayed release RxNorm: 178545 TAKE 1 CAPSULE BY MOUTH TWICE DAILY 09/11/2018 12/19/2018 Inactive Coumadin 5 mg tablet RxNorm: 862009 1 Tablet(s) PO QD 08/21/201811/2018 Inactive metformin ER 500 mg tablet,extended release 24 hr RxNorm: 86 0975 1 Tablet(s) PO BID 07/31/2018 09/28/2018 Inactive omeprazole 40 mg capsule,delayed release RxNorm: 691374 TAKE 1 CAPSULE BY MOUTH TWICE DAILY 06/27/2018 09/10/2018 Inactive metformin ER 500 mg tablet,extended release 24 hr RxNorm: 86 0975 Tablet(s) 1 Tablet(s) PO BID 06/27/2018 07/31/2018 Inactive Toprol XL 200 mg tablet,extended release RxNorm: 344337 1 Table t(s) PO QD 06/14/2018 09/17/2018 Inactive Coumadin 5 mg tablet RxNorm: 442309 1 Tablet(s) PO QD 06/14/201804/2018 Inactive metformin ER 500 mg tablet,extended release 24 hr RxNorm: 86 0975 Tablet(s) 1 Tablet(s) PO BID 05/22/2018 06/26/2018 Inactive Coumadin 5 mg tablet RxNorm: 488172 TAKE 1 TABLET BY MOUTH ONCE DAILY 05/11/2018 06/14/2018 Inactive Lovenox 40 mg/0.4 mL subcutaneous syringe RxNorm: 116424 40 Mil ligram(s) SQ QD 05/05/2018 09/26/2018 Inactive amitriptyline 25 mg tablet RxNorm: 014071 1 Tablet(s) PO QHS fo r sleep/HAs 04/24/2018 10/20/2018 Inactive OneTouch Ultra Test strips RxNorm: Test blood sugar sigrid y (Dx:E11.65) 04/24/2018 No Stop Date Active celecoxib 200 mg capsule RxNorm: 836917 1 Capsule(s) PO BID 019 10/20/2018 Inactive Celebrex 200 mg capsule RxNorm: 194501 TAKE 1 CAPSULE BY MOUTH ONCE DAILY 04/19/2018 04/23/2018 Inactive warfarin 1 mg tablet RxNorm: 817823 1 Tablet(s) PO QD a nd additional tablet on Mon & Thurs 04/14/2018 10/01/2018 Inactive Toprol XL 200 mg tablet,extended release RxNorm: 312493 TAKE 1 TABLET BY MOUTH ONCE DAILY 04/11/2018 06/14/2018 Inactive metformin ER 500 mg tablet,extended release 24 hr RxNorm: 86 0975 Tablet(s) 1 Tablet(s) PO BID 03/17/2018 05/21/2018 Inactive Coumadin 5 mg tablet RxNorm: 850320 TAKE 1 TABLET BY MOUTH ONCE DAILY 03/15/2018 05/10/2018 Inactive Lovenox 40 mg/0.4 mL subcutaneous syringe RxNorm: 325895 40 Mil ligram(s) SQ QD 01/27/2018 04/11/2018 Inactive omeprazole 40 mg capsule,delayed release RxNorm: 189005 TAKE 1 CAPSULE BY MOUTH TWICE DAILY 01/23/2018 06/26/2018 Inactive pravastatin 40 mg tablet RxNorm: 897695 TAKE 1 TABLET BY MOUTH ONCE DAILY 01/23/2018 12/10/2018 Inactive metformin ER 500 mg tablet,extended release 24 hr RxNorm: 86 0975 Tablet(s) 1 Tablet(s) PO BID 01/16/2018 01/15/2018 Inactive Toprol XL 200 mg tablet,extended release RxNorm: 331394 TAKE 1 TABLET BY MOUTH ONCE DAILY 01/16/2018 04/10/2018 Inactive Coumadin 5 mg tablet RxNorm: 745325 TAKE 1 TABLET BY MOUTH ONCE DAILY 01/06/2018 03/14/2018 Inactive Celebrex 200 mg capsule RxNorm: 266937 1 Capsule(s) PO BID 12/28/19 18 03/26/2018 Inactive metformin ER 500 mg tablet,extended release 24 hr RxNorm: 86 0975 1 Tablet(s) PO BID Needs APPT 12/21/2017 01/16/2018 Inactive omeprazole 40 mg capsule,delayed release RxNorm: 094567 TAKE 1 CAPSULE BY MOUTH TWICE DAILY 11/02/2017 01/22/2018 Inactive Celebrex 200 mg capsule RxNorm: 050188 1 Capsule(s) PO QD 11/01/2017 12/26/2017 Inactive Coumadin 5 mg tablet RxNorm: 442596 Tablet(s) TAKE ONE TABLET BY MOUTH ONCE DAILY. 10/31/2017 12/29/2017 Inactive warfarin 1 mg tablet RxNorm: 097756 1 Tablet(s) PO QD 10/31/201703/22 Inactive spironolactone 25 mg tablet RxNorm: 370585 TAKE TWO TAB LETS BY MOUTH IN THE MORNING 10/31/2017 04/23/2018 Inactive metformin ER 500 mg tablet,extended release 24 hr RxNorm: 86 0975 1 Tablet(s) PO BID Needs updated fasting lab 10/20/2017 12/21/2017 Inactive Medrol (Dale) 4 mg tablets in a dose pack RxNorm: 698389 Tablet(s) PO take as directed 10/12/2017 12/15/2017 Inactive Celebrex 200 mg capsule RxNorm: 256182 1 Capsule(s) PO QD 10/03/2017 10/02/2017 Inactive spironolactone 25 mg tablet RxNorm: 924921 TAKE TWO TAB LETS BY MOUTH IN THE MORNING 09/19/2017 10/30/2017 Inactive Zithromax Z-Dale 250 mg tablet RxNorm: 085101 Tablet(s) PO take as directed 09/16/2017 10/11/2017 Inactive Medrol (Dale) 4 mg tablets in a dose pack RxNorm: 628610 Tablet(s) take as directed PO 09/16/2017 10/11/2017 Inactive doxycycline hyclate 100 mg tablet RxNorm: 5115846 1 Tablet(s) PO BI D 09/16/2017 09/15/2017 Inactive doxycycline hyclate 100 mg tablet RxNorm: 9192687 1 Tablet(s) PO BI D 09/16/2017 09/25/2017 Inactive Tessalon Perles 100 mg capsule RxNorm: 170945 1 Capsule(s) PO T ID as needed 09/16/2017 12/15/2017 Inactive warfarin 1 mg tablet RxNorm: 396731 1 Tablet(s) PO QD 09/06/201710/19 Inactive Coumadin 5 mg tablet RxNorm: 606824 Tablet(s) TAKE ONE TABLET BY MOUTH ONCE DAILY. 09/06/2017 10/31/2017 Inactive Toprol XL 200 mg tablet,extended release RxNorm: 109599 1 Table t(s) PO QD 2017 01/02/2018 Inactive warfarin 1 mg tablet RxNorm: 073816 1 Tablet(s) PO QD DUE FOR L ABS AUGUST 12 08/29/2017 09/06/2017 Inactive Coumadin 5 mg tablet RxNorm: 363224 Tablet(s) TAKE ONE TABLET BY MOUTH ONCE DAILY. DUE FOR PT/INR AUGUST 12 08/29/2017 09/06/2017 Inactive Coumadin 5 mg tablet RxNorm: 392107 Tablet(s) TAKE ONE TABLET BY MOUTH ONCE DAILY. DUE FOR PT/INR AUGUST 12 08/01/2017 08/29/2017 Inactive warfarin 1 mg tablet RxNorm: 555775 1 Tablet(s) PO QD DUE FOR L ABS AUGUST 12 08/01/2017 08/29/2017 Inactive scopolamine 1 mg over 3 days transdermal patch RxNorm: 91366 2 1 TD take off in 72 hours. 08/01/2017 12/26/2017 Inactive pravastatin 40 mg tablet RxNorm: 099176 Tablet(s) TAKE ONE TABLET BY MOUTH ONCE DAILY 07/07/2017 01/02/2018 Inactive Coumadin 5 mg tablet RxNorm: 866693 Tablet(s) TAKE ONE TABLET BY MOUTH ONCE DAILY. DUE FOR PT/INR. 06/29/2017 08/01/2017 Inactive warfarin 1 mg tablet RxNorm: 764961 1 Tablet(s) PO QD 06/29/201707/19 Inactive Coumadin 5 mg tablet RxNorm: 512087 TAKE ONE TABLET BY MOUTH ONCE DAILY. DUE FOR PT/INR. 05/30/2017 06/29/2017 Inactive omeprazole 40 mg capsule,delayed release RxNorm: 861159 1 Capsu le(s) PO BID 05/30/2017 08/27/2017 Inactive Celebrex 200 mg capsule RxNorm: 852950 1 Capsule(s) PO QD 05/23/2017 10/03/2017 Inactive metformin ER 500 mg tablet,extended release 24 hr RxNorm: 86 0975 TAKE ONE TABLET BY MOUTH TWICE DAILY 05/20/2017 10/20/2017 Inactive Coumadin 5 mg tablet RxNorm: 500696 1 Tablet(s) PO QD due for PT/IN R 04/25/2017 05/24/2017 Inactive warfarin 1 mg tablet RxNorm: 014641 1 Tablet(s) PO QD due for l abs this week 03/16/2017 06/29/2017 Inactive omeprazole 40 mg capsule,delayed release RxNorm: 315051 1 Capsu le(s) PO BID 03/16/2017 05/30/2017 Inactive Celebrex 200 mg capsule RxNorm: 217013 1 Capsule(s) PO BID as n eeded for pain 03/16/2017 05/22/2017 Inactive Coumadin 5 mg tablet RxNorm: 558669 1 Tablet(s) PO QD due for PT/IN R 03/16/2017 04/14/2017 Inactive Celebrex 200 mg capsule RxNorm: 761349 1 Capsule(s) PO BID as n eeded for pain 02/09/2017 03/15/2017 Inactive Toprol XL 200 mg tablet,extended release RxNorm: 826070 1 Table t(s) PO QD 02/08/2017 2017 Inactive Celebrex 200 mg capsule RxNorm: 080679 1 Capsule(s) PO BID as n eeded for pain 01/14/2017 02/08/2017 Inactive omeprazole 40 mg capsule,delayed release RxNorm: 548158 1 Capsu le(s) PO BID 01/12/2017 03/16/2017 Inactive Coumadin 5 mg tablet RxNorm: 649389 1 Tablet(s) PO QD 12/15/201602/19 Inactive warfarin 1 mg tablet RxNorm: 415625 1 Tablet(s) PO QD 12/15/201602/19 Inactive metformin ER 500 mg tablet,extended release 24 hr RxNorm: 86 0975 Tablet(s) TAKE ONE TABLET BY MOUTH TWICE DAILY 11/29/2016 02/26/2017 Inactive omeprazole 40 mg capsule,delayed release RxNorm: 493071 1 Capsu le(s) PO BID 11/29/2016 12/28/2016 Inactive pravastatin 40 mg tablet RxNorm: 175675 Tablet(s) TAKE ONE TABLET BY MOUTH ONCE DAILY 11/19/2016 07/07/2017 Inactive omeprazole 40 mg capsule,delayed release RxNorm: 921881 1 Capsu le(s) PO BID 10/19/2016 10/18/2016 Inactive omeprazole 40 mg capsule,delayed release RxNorm: 907814 1 Capsu le(s) PO BID 10/19/2016 11/17/2016 Inactive pantoprazole 40 mg tablet,delayed release RxNorm: 360043 1 Tabl et(s) PO QD 09/30/2016 10/18/2016 Inactive pantoprazole 40 mg tablet,delayed release RxNorm: 122411 1 Tabl et(s) PO QD 09/30/2016 09/29/2016 Inactive Zofran ODT 4 mg disintegrating tablet RxNorm: 548700 1 Tablet(s) PO Q4H as needed for nausea 09/15/2016 01/02/2017 Inactive Coumadin 5 mg tablet RxNorm: 661397 1 Tablet(s) PO QD 09/14/201611/20 Inactive warfarin 1 mg tablet RxNorm: 158179 1 Tablet(s) PO QD 09/14/201611/20 Inactive spironolactone 25 mg tablet RxNorm: 261081 2 Tablet(s) PO QAM 09/0301/02/2017 Inactive Wellbutrin XL 300 mg 24 hr tablet, extended release RxNorm: 298409 TAKE ONE TABLET BY MOUTH ONCE DAILY 08/26/2016 12/26/2017 Inactive Toprol XL 200 mg tablet,extended release RxNorm: 756140 1 Table t(s) PO QD 07/28/2016 02/08/2017 Inactive metformin ER 500 mg tablet,extended release 24 hr RxNorm: 86 0975 Tablet(s) TAKE ONE TABLET BY MOUTH TWICE DAILY 07/15/2016 11/29/2016 Inactive cyclobenzaprine 5 mg tablet RxNorm: 182274 1 Tablet(s) PO QHS f or spasm 07/08/2016 08/06/2016 Inactive Celebrex 200 mg capsule RxNorm: 1 Capsule(s) PO BID 07/08/2016 Inactive spironolactone 25 mg tablet RxNorm: 906881 1 Tablet(s) PO QAM 07/0609/02/2016 Inactive Wellbutrin XL 300 mg 24 hr tablet, extended release RxNorm: 788649 TAKE ONE TABLET BY MOUTH ONCE DAILY 06/15/2016 07/14/2016 Inactive Coumadin 5 mg tablet RxNorm: 709900 1 Tablet(s) PO QD 06/08/201608/20 Inactive warfarin 1 mg tablet RxNorm: 711656 1 Tablet(s) PO QD 06/08/201608/20 Inactive Toprol XL 200 mg tablet,extended release RxNorm: 544115 TAKE ONE TABLET BY MOUTH ONCE DAILY 04/26/2016 07/28/2016 Inactive pravastatin 40 mg tablet RxNorm: 512844 TAKE ONE TABLET BY MOUT H ONCE DAILY 04/19/2016 10/15/2016 Inactive Coumadin 5 mg tablet RxNorm: 308796 1 Tablet(s) PO QD 03/09/201605/19 Inactive warfarin 1 mg tablet RxNorm: 218807 1 Tablet(s) PO QD 03/09/201605/19 Inactive metformin ER 500 mg tablet,extended release 24 hr RxNorm: 86 0975 TAKE ONE TABLET BY MOUTH TWICE DAILY 02/25/2016 07/15/2016 Inactive spironolactone 25 mg tablet RxNorm: 038994 TAKE ONE TAB LET BY MOUTH ONCE DAILY IN THE MORNING 02/25/2016 07/06/2016 Inactive prednisone 20 mg tablet RxNorm: 862361 1 Tablet(s) PO QAM 02/16/2016 02/20/2016 Inactive cefdinir 300 mg capsule RxNorm: 793062 2 Capsule(s) PO QD 02/16/2016 02/25/2016 Inactive Toprol XL 200 mg tablet,extended release RxNorm: 206002 TAKE ONE TABLET BY MOUTH ONCE DAILY 01/26/2016 04/24/2016 Inactive Aciphex 20 mg tablet,delayed release RxNorm: 471466 1 Tablet(s) PO BID 12/24/2015 09/29/2016 Inactive Omeprazole and Pepci d have not helped. Coumadin 5 mg tablet RxNorm: 827344 1 Tablet(s) PO QD 12/10/201502/19 Inactive Coumadin 5 mg tablet RxNorm: 813901 1 Tablet(s) PO QD 12/08/201511/20 Inactive Toprol XL 200 mg tablet,extended release RxNorm: 847969 TAKE ONE TABLET BY MOUTH ONCE DAILY 11/20/2015 01/18/2016 Inactive warfarin 1 mg tablet RxNorm: 402560 1 Tablet(s) PO QD 11/03/201502/19 Inactive pravastatin 40 mg tablet RxNorm: 607392 Tablet(s) TAKE ONE TABLET BY MOUTH ONCE DAILY 10/20/2015 01/17/2016 Inactive pravastatin 40 mg tablet RxNorm: 488465 TAKE ONE TABLET BY MOUT H ONCE DAILY 10/20/2015 10/19/2015 Inactive metformin ER 500 mg tablet,extended release 24 hr RxNorm: 86 0975 TAKE ONE TABLET BY MOUTH TWICE DAILY 10/03/2015 12/31/2015 Inactive Toprol XL 200 mg tablet,extended release RxNorm: 184004 TAKE ONE TABLET BY MOUTH ONCE DAILY 09/17/2015 11/15/2015 Inactive Coumadin 5 mg tablet RxNorm: 106750 1 Tablet(s) PO QD 09/02/201511/19 Inactive Wellbutrin XL 300 mg 24 hr tablet, extended release RxNorm: 783884 TAKE ONE TABLET BY MOUTH ONCE DAILY 08/01/2015 10/29/2015 Inactive Pepcid 20 mg tablet RxNorm: 311641 1 Tablet(s) PO BID as needed 05/24/2017 Inactive warfarin 1 mg tablet RxNorm: 698473 TAKE ONE TABLET BY MOUTH ON CE DAILY 07/08/2015 11/03/2015 Inactive pravastatin 40 mg tablet RxNorm: 607019 1 Tablet(s) PO QD 07/08/2015 10/05/2015 Inactive spironolactone 25 mg tablet RxNorm: 358643 TAKE ONE TAB LET BY MOUTH ONCE DAILY IN THE MORNING 06/13/2015 09/10/2015 Inactive Coumadin 5 mg tablet RxNorm: 484471 1 Tablet(s) PO QD 06/05/201508/19 Inactive Wellbutrin XL 300 mg 24 hr tablet, extended release RxNorm: 542971 TAKE ONE TABLET BY MOUTH ONCE DAILY 05/16/2015 09/26/2018 Inactive Wellbutrin XL 300 mg 24 hr tablet, extended release RxNorm: 286152 TAKE ONE TABLET BY MOUTH ONCE DAILY 05/16/2015 06/14/2015 Inactive metformin ER 500 mg tablet,extended release 24 hr RxNorm: 86 0975 TAKE ONE TABLET BY MOUTH TWICE DAILY 05/16/2015 08/13/2015 Inactive pravastatin 40 mg tablet RxNorm: 917784 1 Tablet(s) PO QD 04/10/2015 07/07/2015 Inactive Aciphex 20 mg tablet,delayed release RxNorm: 116830 1 Tablet(s) PO BID 03/07/2015 09/02/2015 Inactive Omeprazole and Pepci d have not helped. Toprol XL 200 mg tablet,extended release RxNorm: 815412 1 Table t(s) PO QD 03/05/2015 08/31/2015 Inactive Aciphex 20 mg tablet,delayed release RxNorm: 929142 1 Tablet(s) PO QD 03/04/2015 03/06/2015 Inactive Omeprazole and Pepci d have not helped. Coumadin 5 mg tablet RxNorm: 417500 1 Tablet(s) PO QD 02/28/201511/2015 Inactive Aciphex 20 mg tablet,delayed release RxNorm: 016139 1 Tablet(s) PO BID 02/11/2015 03/03/2015 Inactive Omeprazole and Pepci d have not helped. metformin ER 500 mg tablet,extended release 24 hr RxNorm: 86 0975 1 Tablet(s) PO BID 01/10/2015 04/09/2015 Inactive pravastatin 40 mg tablet RxNorm: 689039 1 Tablet(s) PO QD 01/06/2015 04/05/2015 Inactive Wellbutrin XL 300 mg 24 hr tablet, extended release RxNorm: 117571 TAKE ONE TABLET BY MOUTH ONCE DAILY 12/19/2014 02/16/2015 Inactive amoxicillin 500 mg capsule RxNorm: 536451 2 Capsule(s) PO BID 12/0612/15/2014 Inactive Flonase 50 mcg/actuation nasal spray,suspension RxNorm: 8963 23 2 Adrian each nostril NASAL QD 12/06/2014 03/05/2015 Inactive Coumadin 5 mg tablet RxNorm: 615339 1 Tablet(s) PO QD 11/28/201410/2014 Inactive spironolactone 25 mg tablet RxNorm: 161216 1 Tablet(s) PO QAM 11/2602/23/2015 Inactive Coumadin 5 mg tablet RxNorm: 458833 1 Tablet(s) PO QD 1 Tablet(s) PO QD- NEED TO CHECK LABS 10/30/2014 11/28/2014 Inactive warfarin 1 mg tablet RxNorm: 356844 1 Tablet(s) PO QD 10/30/201409/2015 Inactive Aciphex 20 mg tablet,delayed release RxNorm: 874547 1 Tablet(s) PO QD 10/02/2014 02/10/2015 Inactive Omeprazole and Pepci d have not helped. Coumadin 5 mg tablet RxNorm: 275173 1 Tablet(s) PO QD 1 Tablet(s) PO QD- NEED TO CHECK LABS 09/30/2014 10/30/2014 Inactive pravastatin 40 mg tablet RxNorm: 849125 1 Tablet(s) PO QD 09/25/2014 01/06/2015 Inactive warfarin 1 mg tablet RxNorm: 620095 1 Tablet(s) PO QD T [place] ONE TABLET BY MOUTH DIRECTED ON TUE AND THUR 08/28/2014 10/29/2014 Inactive metformin ER 500 mg tablet,extended release 24 hr RxNorm: 86 0975 1 Tablet(s) PO BID 08/28/2014 01/10/2015 Inactive amoxicillin 875 mg tablet RxNorm: 311465 1 Tablet(s) PO BID 015 08/18/2014 Inactive Toprol XL 200 mg tablet,extended release RxNorm: 543918 TAKE ONE TABLET BY MOUTH ONCE DAILY 07/22/2014 03/05/2015 Inactive Coumadin 5 mg tablet RxNorm: 622324 1 Tablet(s) PO QD 07/01/201409/18 Inactive amoxicillin 875 mg tablet RxNorm: 449528 1 Tablet(s) PO BID 015 06/30/2014 Inactive pravastatin 40 mg tablet RxNorm: 882956 1 Tablet(s) PO QD needs fasting labs 06/19/2014 09/25/2014 Inactive Coumadin 5 mg tablet RxNorm: 584286 1 Tablet(s) PO QD 1 Tablet(s) PO QD TAKE ONE TABLET BY MOUTH ONCE DAILY-need labs 05/28/2014 07/01/2014 Inactive warfarin 1 mg tablet RxNorm: 422209 1 Tablet(s) PO As Directed 05/1908/28/2014 Inactive pravastatin 40 mg tablet RxNorm: 137713 1 Tablet(s) PO QD needs fasting labs 05/14/2014 06/19/2014 Inactive metformin ER 500 mg tablet,extended release 24 hr RxNorm: 86 0975 1 Tablet(s) PO BID 04/25/2014 08/28/2014 Inactive spironolactone 25 mg tablet RxNorm: 452522 1 Tablet(s) PO QAM 04/2511/26/2014 Inactive Coumadin 5 mg tablet RxNorm: 672975 1 Tablet(s) PO QD 1 Tablet(s) PO QD TAKE ONE TABLET BY MOUTH ONCE DAILY 04/23/2014 05/28/2014 Inactive Coumadin 5 mg tablet RxNorm: 688971 1 Tablet(s) PO QD 1 Tablet(s) PO QD TAKE ONE TABLET BY MOUTH ONCE DAILY 03/22/2014 04/20/2014 Inactive Tessalon Perles 100 mg capsule RxNorm: 242909 1 Capsule(s) PO TID 0 03/22/2014 03/28/2014 Inactive cefdinir 300 mg capsule RxNorm: 838338 2 Capsule(s) PO QD 03/22/2014 03/31/2014 Inactive Medrol (Dale) 4 mg tablets in a dose pack RxNorm: 175033 Tablet(s) PO as directed 03/05/2014 08/08/2014 Inactive Coumadin 5 mg tablet RxNorm: 408126 1 Tablet(s) PO QD 1 Tablet(s) PO QD TAKE ONE TABLET BY MOUTH ONCE DAILY 02/19/2014 03/20/2014 Inactive pravastatin 40 mg tablet RxNorm: 360398 1 Tablet(s) PO QD 02/04/2014 05/14/2014 Inactive Coumadin 5 mg tablet RxNorm: 138130 1 Tablet(s) PO QD T [place] ONE TABLET BY MOUTH ONCE DAILY 01/21/2014 02/19/2014 Inactive Medrol (Dale) 4 mg tablets in a dose pack RxNorm: 900445 Tablet(s) PO as directed 01/18/2014 03/04/2014 Inactive cefdinir 300 mg capsule RxNorm: 757739 2 Capsule(s) PO QD 01/16/2014 01/25/2014 Inactive metformin ER 500 mg tablet,extended release 24 hr RxNorm: 86 0975 1 Tablet(s) PO BID 12/17/2013 04/25/2014 Inactive Wellbutrin SR 150 mg tablet,sustained-release RxNorm: 929106 1 Tablet(s) PO BID 11/30/2013 02/27/2014 Inactive spironolactone 25 mg tablet RxNorm: 298303 1 Tablet(s) PO QAM 10/2204/25/2014 Inactive Macrobid 100 mg capsule RxNorm: 919320 1 Capsule(s) PO BID 10/20/19 14 10/25/2013 Inactive Macrobid 100 mg capsule RxNorm: 517877 1 Capsule(s) PO BID 10/20/19 14 10/18/2013 Inactive Toprol XL 100 mg tablet,extended release RxNorm: 944059 1 Table t(s) PO QD 10/15/2013 01/15/2014 Inactive Toprol XL 200 mg tablet,extended release RxNorm: 181512 1 Table t(s) PO QD 10/02/2013 07/22/2014 Inactive Wellbutrin XL 300 mg 24 hr tablet, extended release RxNorm: 789030 1 Tablet(s) PO QD 09/28/2013 12/19/2014 Inactive Aciphex 20 mg tablet,delayed release RxNorm: 205318 1 Tablet(s) PO QD 08/29/2013 10/02/2014 Inactive Omeprazole and Pepci d have not helped. Coumadin 5 mg tablet RxNorm: 690027 1 Tablet(s) PO QD 08/14/201307/20 Inactive Coumadin 5 mg tablet RxNorm: 018749 1 Tablet(s) PO QD 08/14/201305/2013 Inactive pravastatin 40 mg tablet RxNorm: 040650 1 Tablet(s) PO QD 07/24/2013 02/04/2014 Inactive warfarin 1 mg tablet RxNorm: 297373 1 Tablet(s) PO QD T [place] ONE TABLET BY MOUTH DIRECTED ON MON AND THUR 07/09/2013 05/28/2014 Inactive warfarin 5 mg tablet RxNorm: 864021 1 Tablet(s) PO QD T [place] ONE TABLET BY MOUTH EVERY DAY 06/08/2013 07/07/2013 Inactive spironolactone 25 mg tablet RxNorm: 496417 1 Tablet(s) PO QAM 05/3010/15/2013 Inactive clindamycin 300 mg capsule RxNorm: 123534 2 Capsule(s) PO TID 04/1704/30/2013 Inactive warfarin 5 mg tablet RxNorm: 968351 1 Tablet(s) PO QD 03/12/201305/20 Inactive azithromycin 250 mg tablet RxNorm: 281103 2 Tablet(s) PO QD 013 03/07/2013 Inactive metformin ER 500 mg tablet,extended release 24 hr RxNorm: 86 0975 1 Tablet(s) PO BID 02/22/2013 12/17/2013 Inactive spironolactone 25 mg tablet RxNorm: 136783 1 Tablet(s) PO QAM 01/2205/30/2013 Inactive metformin ER 500 mg tablet,extended release 24 hr RxNorm: 86 0977 1 Tablet(s) PO BID 01/11/2013 02/21/2013 Inactive pravastatin 40 mg tablet RxNorm: 592961 1 Tablet(s) PO QD 01/11/2013 07/24/2013 Inactive warfarin 5 mg tablet RxNorm: 363798 1 Tablet(s) PO QD 01/04/201302/19 Inactive warfarin 1 mg tablet RxNorm: 526367 Tablet(s) PO TAKE O NE TABLET BY MOUTH DIRECTED ON MON AND THUR 12/14/2012 07/08/2013 Inactive scopolamine 1.5 mg 72 hr Transderm Patch RxNorm: 486091 TD Apply 1 patch behind ear every 72 hours, replace after 3 days. 11/08/2012 01/15/2014 Inacti ve Pepcid 20 mg tablet RxNorm: 214080 1 Tablet(s) PO BID as needed 01/31/2013 Inactive Famvir 500 mg tablet RxNorm: 789377 1 Tablet(s) PO Q8H 11/03/2012 Inactive Aciphex 20 mg tablet,delayed release RxNorm: 732303 1 Tablet(s) PO QD 11/03/2012 05/01/2013 Inactive Omeprazole and Pepci d have not helped. gabapentin 300 mg capsule RxNorm: 869442 Capsule(s) PO TID 11/04/19 13 01/15/2014 Inactive warfarin 5 mg tablet RxNorm: 516729 1 Tablet(s) PO QD 11/02/201212/19 Inactive Wellbutrin XL 300 mg 24 hr tablet, extended release RxNorm: 531947 1 Tablet(s) PO QD 10/17/2012 04/30/2013 Inactive pravastatin 40 mg tablet RxNorm: 787180 Tablet(s) PO TA KE ONE TABLET BY MOUTH EVERY DAY. NEED FASTING LABS 09/18/2012 01/10/2013 Inactive Toprol XL 200 mg tablet,extended release RxNorm: 953743 Tablet(s) PO TAKE ONE TABLET BY MOUTH EVERY DAY 09/08/2012 10/01/2013 Inactive warfarin 5 mg tablet RxNorm: 715441 1 Tablet(s) PO QD 08/31/201210/19 Inactive pravastatin 40 mg tablet RxNorm: 748396 1 Tablet(s) PO QD Needs fasting labs 08/18/2012 09/16/2012 Inactive TAKE ONE TABLET BY M OUTH EVERY DAY warfarin 1 mg tablet RxNorm: 372997 1 Tablet(s) PO As directed on Mon and Thurs 08/11/2012 12/13/2012 Inactive spironolactone 25 mg tablet RxNorm: 455039 1 Tablet(s) PO QAM 07/1110/08/2012 Inactive warfarin 5 mg tablet RxNorm: 161951 1 Tablet(s) PO QD 07/03/201208/19 Inactive Diflucan 100 mg tablet RxNorm: 885474 1 Tablet(s) PO QD 05/04/2012 Inactive Cipro 500 mg tablet RxNorm: 695853 1 Tablet(s) PO BID 05/04/201204/22 Inactive Aciphex 20 mg tablet,delayed release RxNorm: 019047 1 Tablet(s) PO QD 05/04/2012 07/02/2012 Inactive Omeprazole and Pepci d have not helped. warfarin 5 mg tablet RxNorm: 790525 1 Tablet(s) PO QD 05/02/201206/19 Inactive warfarin 5 mg tablet RxNorm: 389175 1 Tablet(s) PO QD 03/02/201204/21 Inactive Toprol XL 200 mg tablet,extended release RxNorm: 108596 1 Table t(s) PO QD 03/02/2012 05/30/2012 Inactive spironolactone 25 mg tablet RxNorm: 303633 1 Tablet(s) PO QAM 02/0707/11/2012 Inactive pravastatin 40 mg tablet RxNorm: 781959 Tablet(s) PO 01/31/201208/17 Inactive TAKE ONE TABLET BY MOUTH EVERY DAY pravastatin 40 mg tablet RxNorm: 686876 1 Tablet(s) PO QD 01/31/2012 08/18/2012 Inactive omeprazole 40 mg capsule,delayed release RxNorm: 089131 1 Capsule(s) PO QD for stomach 01/11/2012 11/02/2012 Inactive for stomach warfarin 5 mg tablet RxNorm: 952910 1 Tablet(s) PO QD 01/03/201202/18 Inactive warfarin 5 mg tablet RxNorm: 766015 1 Tablet(s) PO QD 12/03/201112/19 Inactive pravastatin 40 mg tablet RxNorm: 811751 1 Tablet(s) PO QD 11/25/2011 01/23/2012 Inactive cefdinir 300 mg Cap RxNorm: 205386 1 Capsule(s) PO BID 10/11/201103/2011 Inactive Culturelle 10 billion cell Cap RxNorm: 065429 1 Capsule(s) PO BID 0 10/11/2011 11/09/2011 Inactive Diflucan 100 mg Tab RxNorm: 858895 1 Tablet(s) PO QD 10/11/201110/19 Inactive Wellbutrin XL 300 mg 24 hr tablet, extended release RxNorm: 015186 1 Tablet(s) PO QD 09/14/2011 10/17/2012 Inactive pravastatin 40 mg tablet RxNorm: 466649 1 Tablet(s) PO QD 08/25/2011 11/25/2011 Inactive Coumadin 5 mg tablet RxNorm: 108593 Tablet(s) PO Take as direct ed by doctor. 07/07/2011 12/03/2011 Inactive Singulair 10 mg Tab RxNorm: 710696 1 Tablet(s) PO QD al lergy medication. (Please try to be consistent in dosing) 06/23/2011 01/15/2014 Inactive Diflucan 100 mg Tab RxNorm: 347521 1 Tablet(s) PO QD 06/14/201107/02 Inactive cefdinir 300 mg Cap RxNorm: 958523 1 Capsule(s) PO BID 06/14/201106/2011 Inactive pravastatin 40 mg Tab RxNorm: 031817 1 Tablet(s) PO QD 05/25/201108/2011 Inactive warfarin 5 mg Tab RxNorm: 296905 Tablet(s) PO 05/25/2011 10/18/2011 In active TAKE ONE TABLET BY MOUTH EVERY DAY Toprol XL 200 mg tablet,extended release RxNorm: 275113 1 Table t(s) PO QD 03/05/2011 06/02/2011 Inactive spironolactone 25 mg tablet RxNorm: 629222 1 Tablet(s) PO QAM 02/2402/08/2012 Inactive omeprazole 40 mg capsule,delayed release RxNorm: 604230 1 Capsule(s) PO QD for stomach 01/06/2011 01/11/2012 Inactive for stomach warfarin 5 mg Tab RxNorm: 358551 1 Tablet(s) PO QD 12/17/2010 011 Inactive warfarin 5 mg Tab RxNorm: 508306 1 Tablet(s) PO QD 11/18/2010 011 Inactive spironolactone 25 mg Tab RxNorm: 516201 1 Tablet(s) PO QAM 11/13/19 11 02/24/2011 Inactive Coumadin 6 mg Tab RxNorm: 480220 1 Tablet(s) PO QD 10/28/2010 011 Inactive May have generic hydrochlorothiazide 25 mg Tab RxNorm: 307349 1 Tablet(s) PO QAM 11/11/2010 Inactive Wellbutrin XL 300 mg 24 hr Tab RxNorm: 043657 1 Tablet(s) PO QD 09/14/2011 Inactive Septra DS 800 mg-160 mg Tab RxNorm: 633853 1 Tablet(s) PO BID 06/0806/17/2010 Inactive Pyridium 100 mg Tab RxNorm: 6607470 1 Tablet(s) PO TID 06/08/2010 Inactive Wellbutrin XL 300 mg 24 hr Tab RxNorm: 156470 1 Tablet(s) PO QD 05/201007/15/2010 Inactive hydroxyzine 25 mg Tab RxNorm: 961163 1 Tablet(s) PO QID prn itching--take routinely at bedtime. (pt. may not refil at this time but later) 05/20/2010 10/10/2011 Inactive Zyrtec 10 mg Tab RxNorm: 0864904 1 Tablet(s) PO BID 05/20/20102010 Inactive Coumadin 1 mg Tab RxNorm: 710197 1 Tablet(s) PO 6mg M-F, 7mg S-S 11/16/2010 Inactive hydroxyzine 25 mg Tab RxNorm: 910587 1 Tablet(s) PO QID prn itching--take routinely at bedtime 04/30/2010 05/19/2010 Inactive Toprol XL 200 mg 24 hr Tab RxNorm: 616728 1 Tablet(s) PO QD 011 06/23/2010 Inactive lisinopril-hydrochlorothiazide 10 mg-12.5 mg Tab RxNorm: 197 885 1 Tablet(s) PO QD 04/20/2010 04/29/2010 Inactive omeprazole 40 mg Cap, Delayed Release RxNorm: 048417 1 Capsule(s) PO QD for stomach 04/20/2010 08/17/2010 Inactive lisinopril-hydrochlorothiazide 10 mg-12.5 mg Tab RxNorm: 197 885 Tablet(s) PO 1QDAM - TAKE ONE TABLET BY MOUTH EVERY DAY IN THE MORNING 03/09/2010 Inactive lisinopril-hydrochlorothiazide 10 mg-12.5 mg Tab RxNorm: 197 885 1 Tablet(s) PO QD 02/27/2010 04/20/2010 Inactive Wellbutrin XL 300 mg 24 hr Tab RxNorm: 018920 1 Tablet(s) PO QD 05/21/2010 Inactive lisinopril-hydrochlorothiazide 10 mg-12.5 mg Tab RxNorm: 197 885 1 Tablet(s) PO QD 01/28/2010 02/26/2010 Inactive omeprazole 40 mg Cap, Delayed Release RxNorm: 262537 1 Capsule(s) PO QD for stomach 01/22/2010 04/20/2010 Inactive Altace 10 mg Cap RxNorm: 935591 1 Capsule(s) PO QD for BP 01/22/2010 03/22/2010 Inactive Coumadin 6 mg Tab RxNorm: 270219 1 Tablet(s) PO QD May have generic 12/03/2009 05/01/2010 Inactive Coumadin 6 mg Tab RxNorm: 682878 1 Tablet(s) PO 12/01/2009 12/02/2009 Inactive Coumadin 1 mg Tab RxNorm: 470348 1 Tablet(s) PO QD 11/28/2009 010 Inactive Coumadin 1 mg Tab RxNorm: 075482 1 Tablet(s) PO QD 07/02/2009 010 Inactive lisinopril-hydrochlorothiazide 20 mg-12.5 mg Tab RxNorm: 197 886 2 Tablet(s) PO QAM No Start Date 10/12/2010 Inactive Zofran ODT 4 mg disintegrating tablet RxNorm: 462296 1 Tablet(s) PO Q6H as needed for nausea No Start Date 09/14/2016 Inactive Wellbutrin XL 300 mg 24 hr Tab RxNorm: 794678 1 Tablet(s) PO QD No Start Date 02/02/2010 Inactive alprazolam 0.25 mg tablet RxNorm: 363414 1 Tablet(s) PO prior t o flight No Start Date 05/24/2017 Inactive hydrocodone-acetaminophen 5 mg-500 mg Tab RxNorm: 364620 1-2 Tablet(s) PO Q4H as needed for pain No Start Date 12/02/2010 Inactive Toprol XL 100 mg 24 hr Tab RxNorm: 282618 1 Tablet(s) PO QD No Star t Date 10/14/2013 Inactive Celebrex 200 mg capsule RxNorm: 166218 1 Capsule(s) PO QD No Start Date 05/22/2017 Inactive Flexeril 10 mg tablet RxNorm: 233665 1 Tablet(s) PO TID No Start Da te 04/02/2019 Inactive scopolamine 1 mg over 3 days transdermal patch RxNorm: 71914 2 1 TD take off in 72 hours. No Start Date 07/31/2017 Inactive OneTouch Ultra Test strips RxNorm: Test blood sugar daily No S tart Date 04/23/2018 Inactive Medrol (Dale) 4 mg tablets in a dose pack RxNorm: 657968 Tablet(s) PO As directed No Start Date 01/15/2014 Inactive Coumadin 5 mg Tab RxNorm: 409325 1 Tablet(s) PO QD No Start Date 06/19 Inactive Pepcid 40 mg Tab RxNorm: 989827 1 Tablet(s) PO QD No Start Date 06/23 Inactive prednisone 10 mg Tab RxNorm: 945380 1 Tablet(s) PO BID No Start Date 06/23/2010 Inactive spironolactone 25 mg tablet RxNorm: 956098 1 Tablet(s) PO QAM No St art Date 09/26/2018 Inactive scopolamine 1.5 mg 72 hr Transderm Patch RxNorm: 955603 TD Apply 1 patch behind ear every 72 hours, replace after 3 days. No Start Date 11/07/2012 Inacti ve azithromycin 250 mg Tab RxNorm: 335979 Tablet(s) PO 2 t abs on day one and one tab on days 2-5. (antibiotic) No Start Date 10/10/2011 Inactive Medrol (Dale) 4 mg Tabs in a Dose Pack RxNorm: 564207 1 Tablet(s) PO as directed. (steroid pack) No Start Date 10/10/2011 Inactive Lovenox 40 mg/0.4 mL subcutaneous syringe RxNorm: 571425 40 Mil ligram(s) SQ QD No Start Date 05/04/2018 Inactive Celebrex 200 mg capsule RxNorm: 606339 1 Capsule(s) PO BID as n eeded for pain No Start Date 01/13/2017 Inactive warfarin 1 mg tablet RxNorm: 433064 1 Tablet(s) PO As directed on Tue and No Start Date 08/10/2012 Inactive cefuroxime axetil 500 mg Tab RxNorm: 126750 1 Tablet(s) PO BID No S tart Date 06/13/2011 Inactive Lovenox 40 mg/0.4 mL subcutaneous syringe RxNorm: 830301 40 Mil ligram(s) SQ QD No Start Date 01/26/2018 Inactive Coumadin 5 mg tablet RxNorm: 375678 1 Tablet(s) PO QD No Start Date 0 08/13/2013 Inactive Medrol (Dale) 4 mg tablets in a dose pack RxNorm: 009843 Tablet(s) PO as directed No Start Date 01/17/2014 Inactive Coumadin 6 mg tablet RxNorm: 246988 1 Tablet(s) PO QD No Start Date 0 06/20/2016 Inactive warfarin 5 mg tablet RxNorm: 372645 1 Tablet(s) PO QD No Start Date 0 12/02/2011 Inactive Medrol (Dale) 4 mg Tabs in a Dose Pack RxNorm: 301885 Tablet(s) PO as directed No Start Date 06/23/2010 Inactive Flonase 50 mcg/actuation nasal spray,suspension RxNorm: 8963 23 2 Adrian NASAL BID No Start Date 12/05/2014 Inactive Pepcid 20 mg tablet RxNorm: 269917 1 Tablet(s) PO BID as needed No Start Date 11/02/2012 Inactive spironolactone 25 mg tablet RxNorm: 993503 1 Tablet(s) PO QAM No St art Date 04/02/2019 Inactive Medication Administered No Medication Administered data Immunizations No Immunization data Results Observation Observation Code Item Item Code Result Date S ervice Location MICROALBUMIN URINE RANDOM 92645 CREAT MG/D 139 MG/DL Unknown MICROALBUMIN URINE RANDOM 87385 CRE/100 1.39 G/L 12/20 Unknown Procedures Procedure Codes Date URINALYSIS NONAUTO W/O SCOPE CPT-4: 43457 09/27/2018 URINE CULTURE/ COLONY COUNT CPT-4: 69015 09/27/2018 URINALYSIS NONAUTO W/O SCOPE CPT-4: 08088 10/13/2017 URINE CULTURE/ COLONY COUNT CPT-4: 15740 10/13/2017 STREP A ASSAY W/OPTIC CPT-4: 08999 06/21/2016 STREP A ASSAY W/OPTIC CPT-4: 20143 06/24/2014 THER/PROPH/DIAG INJ SC/IM CPT-4: 82978 03/22/2014 METHYLPREDNISOLONE 40 MG INJ CPT-4: J1030 03/22/2014 TRIAMCINOLONE ACET INJ NOS CPT-4: J3301 03/22/2014 URINALYSIS NONAUTO W/O SCOPE CPT-4: 27707 10/19/2013 URINE CULTURE/ COLONY COUNT CPT-4: 11481 10/19/2013 CEFTRIAXONE SODIUM INJECTION CPT-4: J0696 03/02/2013 THER/PROPH/DIAG INJ SC/IM CPT-4: 26991 03/02/2013 CEFTRIAXONE SODIUM INJECTION CPT-4: J0696 03/01/2013 THER/PROPH/DIAG INJ SC/IM CPT-4: 17424 03/01/2013 THER/PROPH/DIAG INJ SC/IM CPT-4: 28777 03/01/2013 METHYLPREDNISOLONE 40 MG INJ CPT-4: J1030 03/01/2013 TRIAMCINOLONE ACET INJ NOS CPT-4: J3301 03/01/2013 MICROALBUMIN QUANTITATIVE CPT-4: 06972 01/11/2013 URINE CULTURE/ COLONY COUNT CPT-4: 61242 05/04/2012 URINALYSIS NONAUTO W/O SCOPE CPT-4: 25582 05/04/2012 URINE CULTURE/ COLONY COUNT CPT-4: 68102 05/29/2010 TRIAMCINOLONE ACET INJ NOS CPT-4: J3301 05/20/2010 METHYLPREDNISOLONE 40 MG INJ CPT-4: J1030 05/20/2010 THER/PROPH/DIAG INJ SC/IM CPT-4: 08322 05/20/2010 Vital Signs Date Vital 05/09/2019 Blood [...] 1: 134/78 Code: 8480-6 BMI: 35.1 Code: 13161-2 Heart Rate 1: 76 bpm Height: 5'9" Respiratory Rate: 20 bpm Temperature: 36 .6 (C) / 97.8 (F) Weight: 238 lbs 12/27/2017 Blood Pressure 1: 126/64 Code: 8480-6 BMI: 34.7 Code: 65231-6 Heart Rate 1: 72 bpm Height: 5'9" Respiratory Rate: 20 bpm Temperature: 36 .8 (C) / 98.2 (F) Weight: 235 lbs 10/12/2017 Blood Pressure 1: 142/80 Code: 8480-6 BMI: 35.1 Code: 73634-8 Heart Rate 1: 98 bpm Height: 5'9" Respiratory Rate: 22 bpm SpO2: 100% Tempera ture: 36.5 (C) / 97.7 (F) Weight: 238 lbs 09/16/2017 Blood Pressure 1: 136/82 Code: 8480-6 BMI: 34.1 Code: 76627-5 Heart Rate 1: 82 bpm Height: 5'9" Respiratory Rate: 18 bpm SpO2: 96% Tempera ture: 36.3 (C) / 97.3 (F) Weight: 231 lbs 05/25/2017 Blood Pressure 1: 122/82 Code: 8480-6 BMI: 32.3 Code: 63319-8 Heart Rate 1: 116 bpm Height: 5'9" Respiratory Rate: 20 bpm SpO2: 98% Tempera ture: 35.6 (C) / 96.1 (F) Weight: 219 lbs 01/03/2017 Blood Pressure 1: 126/78 Code: 8480-6 BMI: 33.4 Code: 24671-7 Heart Rate 1: 72 bpm Height: 5'9" Respiratory Rate: 20 bpm Temperature: 36 .8 (C) / 98.2 (F) Weight: 226 lbs 09/23/2016 Blood Pressure 1: 126/82 Code: 8480-6 BMI: 33.8 Code: 84422-2 Heart Rate 1: 80 bpm Height: 5'9" Respiratory Rate: 20 bpm SpO2: 97% Tempera ture: 36.8 (C) / 98.2 (F) Weight: 229 lbs 09/03/2016 Blood Pressure 1: 188/64 Code: 8480-6 Bl ood Pressure 2: 166/92 Code: 8480-6 BMI: 34.4 Code: 77863-7 Heart Rate 1: 66 bpm Height: 5'9" Res piratory Rate: 20 bpm SpO2: 98% Temperature: 35.7 (C) / 96.2 (F) Weight: 233 lbs 07/08/2016 Blood Pressure 1: 134/82 Code: 8480-6 Heart Rate 1: 64 bpm Height: 5'9" Respiratory Rate: 20 bpm SpO2: 97% Temperature: 36.6 (C) / 97.8 (F) Weight: 06/21/2016 Blood Pressure 1: 112/68 Code: 8480-6 BMI: 33.8 Code: 12017-5 Heart Rate 1: 64 bpm Height: 5'9" Respiratory Rate: 20 bpm SpO2: 95% Tempera ture: 36.3 (C) / 97.3 (F) Weight: 229 lbs 02/23/2016 Blood Pressure 1: 128/78 Code: 8480-6 BMI: 33.4 Code: 91231-7 Heart Rate 1: 74 bpm Height: 5'9" [...] 1: 122/80 Code: 8480-6 BMI: 32.2 Code: 33884-7 Heart Rate 1: 80 bpm Height: 5'9" Respiratory Rate: 20 bpm Temperature: 37 .0 (C) / 98.6 (F) Weight: 218 lbs 08/09/2014 Blood Pressure 1: 132/84 Code: 8480-6 BMI: 33.1 Code: 19007-9 Heart Rate 1: 72 bpm Height: 5'9" Respiratory Rate: 20 bpm Temperature: 36 .7 (C) / 98.0 (F) Weight: 224 lbs 06/24/2014 Blood Pressure 1: 132/80 Code: 8480-6 BMI: 32.8 Code: 65910-9 Heart Rate 1: 68 bpm Height: 5'9" Respiratory Rate: 20 bpm Temperature: 36 .4 (C) / 97.6 (F) Weight: 222 lbs 03/22/2014 Blood Pressure 1: 128/84 Code: 8480-6 BMI: 32.5 Code: 09652-4 Heart Rate 1: 78 bpm Height: 5'9" Respiratory Rate: 22 bpm Temperature: 36 .0 (C) / 96.8 (F) Weight: 220 lbs 03/05/2014 Blood Pressure 1: 124/78 Code: 8480-6 BMI: 31.9 Code: 06468-4 Heart Rate 1: 82 bpm Height: 5'9" Respiratory Rate: 20 bpm Temperature: 35 .8 (C) / 96.4 (F) Weight: 216 lbs 01/16/2014 Blood Pressure 1: 116/68 Code: 8480-6 BMI: 33.8 Code: 13861-5 Heart Rate 1: 72 bpm Height: 5'7" Respiratory Rate: 20 bpm Temperature: 36 .6 (C) / 97.9 (F) Weight: 216 lbs 05/10/2013 Blood Pressure 1: 124/86 Code: 8480-6 BMI: 34.3 Code: 89514-9 Heart Rate 1: 84 bpm Height: 5'7" [...] 1: 116/84 Code: 8480-6 BMI: 33.1 Code: 08641-5 Heart Rate 1: 64 bpm Height: 5'9" Respiratory Rate: 20 bpm Temperature: 36 .4 (C) / 97.6 (F) Weight: 224 lbs 01/11/2013 Blood Pressure 1: 126/84 Code: 8480-6 BMI: 35.3 Code: 40615-2 Heart Rate 1: 68 bpm Height: 5'9" Respiratory Rate: 20 bpm Temperature: 36 .7 (C) / 98.1 (F) Weight: 239 lbs 11/03/2012 Blood Pressure 1: 104/70 Code: 8480-6 BMI: 34.4 Code: 12844-1 Heart Rate 1: 72 bpm Height: 5'9" Respiratory Rate: 20 bpm Temperature: 36 .8 (C) / 98.3 (F) Weight: 233 lbs 05/04/2012 Blood Pressure 1: 12474 Code: 8480-6 BMI: 33.7 Code: 13749-9 Heart Rate 1: 84 bpm Height: 5'9" Temperature: 36.3 (C) / 97.3 (F) Weight: 228 lbs 10/11/2011 Blood Pressure 1: 110/70 Code: 8480-6 BMI: 33.7 Code: 40796-5 Heart Rate 1: 64 bpm Height: 5'9" Temperature: 36.8 (C) / 98.3 (F) Weight: 228 lbs 06/23/2011 Blood Pressure 1: 11470 Code: 8480-6 BMI: 33.4 Code: 04140-1 Heart Rate 1: 80 bpm Height: 5'9" Respiratory Rate: 20 bpm Temperature: 36 .7 (C) / 98.0 (F) Weight: 226 lbs 06/14/2011 Blood Pressure 1: 11874 Code: 8480-6 BMI: 33.4 Code: 97206-2 Heart Rate 1: 80 bpm Height: 5'9" Temperature: 37.1 (C) / 98.7 (F) Weight: 226 lbs 12/02/2010 Temperature: 36.7 (C) / 98.0 (F) Weight: 225 lbs 11/12/2010 Blood Pressure 1: 128/86 Code: 8480-6 Heart Rate 1: 76 bpm Respiratory Rate: 20 bpm Temperature: 36.9 (C) / 98.4 (F) Weight: 223 lbs 10/26/2010 Blood Pressure 1: 124 Code: 8480-6 Te mperature: 24.4 (C) / 76.0 (F) 10/13/2010 Blood Pressure 1: 126/82 Code: 8480-6 BMI: 32.6 Code: 98394-4 Heart Rate 1: 68 bpm Height: 5'9" [...] 1: 140/92 Code: 8480-6 BMI: 31.3 Code: 57832-9 Heart Rate 1: 60 bpm Height: 5'10" [...] upper back on 08/13/16 while camping around [place], [place]. Patient states is tender around tick [...] 01/22/2010 Encounters Encounter Performer Location Codes Date ([id number]) OFFICE/OUTPATIENT VISIT EST Diagnosis: Type 2 diabetes mellitus without complications[ICD10: E11.9] Jessica GEE DO [facility] CPT-4: 65358 05/09/2019 ([id number]) OFFICE/OUTPATIENT VISIT EST Diagnosis: Type 2 diabetes mellitus without complications[ICD10: E11.9] Diagnosis: Essential hypertension[ICD10: I10] Jessica GEE DO [facility] CPT-4: 54934 04/03/2019 ([id number]) OFFICE/OUTPATIENT VISIT EST Diagnosis: Gastro-esophageal reflux disease without esophagitis[ICD10: K21.9] Diagnosis: Urinary tract infection, site not specified[ICD10: N39.0] Diagnosis: Ventral hernia without obstruction or gangrene[ICD10: K43.9] Jessica GEE DO [facility] CPT-4: 92652 09/27/2018 ([id number]) OFFICE/OUTPATIENT VISIT EST Diagnosis: Essential (primary) hypertension[ICD10: I10] Diagnosis: Type 2 diabetes mellitus without complications[ICD10: E11.9] Diagnosis: Carpal tunnel syndrome, right upper limb[ICD10: G56.01] Diagnosis: Primary insomnia[ICD10: F51.01] Jessica GEE DO [facility] CPT-4: 41957 04/24/2018 ([id number]) OFFICE/OUTPATIENT VISIT EST Diagnosis: Type 2 diabetes mellitus without complications[ICD10: E11.9] Diagnosis: Mixed hyperlipidemia[ICD10: E78.2] Diagnosis: Essential (primary) hypertension[ICD10: I10] Diagnosis: Pain in unspecified joint[ICD10: M25.50] Jessica GEE [employer] [facility] CPT-4: 65247 12/27/2017 ([id number]) NURSE/OUTPATIENT VISIT EST Diagnosis: Hematuria, unspecified[ICD10: R31.9] Jessica GEE [place] [facility] CPT-4: 72675 10/13/2017 ([id number]) OFFICE/OUTPATIENT VISIT EST Diagnosis: Pleurodynia[ICD10: R07.81] Sofi CAMPUZANO DO [facility] CPT-4: 84404 10/12/2017 ([id number]) OFFICE/OUTPATIENT VISIT EST Diagnosis: Acute bronchitis, unspecified[ICD10: J20.9] Sofi GEE DO [facility] CPT-4: 28036 09/16/2017 ([id number]) OFFICE/OUTPATIENT VISIT EST Diagnosis: Other specified postprocedural states[ICD10: Z98.890] Diagnosis: Cellulitis of neck[ICD10: L03.221] Diagnosis: Tachycardia, unspecified[ICD10: R00.0] [facility] 13862 05/25/2017 ([id number]) OFFICE/OUTPATIENT VISIT EST Diagnosis: Lumbago with sciatica, right side[ICD10: M54.41] Diagnosis: Pain in unspecified joint[ICD10: M25.50] [facility]PT[facility]: 76526 01/03/2017 ([id number]) OFFICE/OUTPATIENT VISIT EST Diagnosis: Bitten or stung by nonvenomous insect and other nonvenomous arthropods, subsequent encounter[ICD10: W57.XXXD] Diagnosis: Essential (primary) hypertension[ICD10: I10] Diagnosis: Low back pain[ICD10: M54.5] Jessica MENDENHALLQUELINE Monica CARBAJAL [facility] CPT-4: 25237 09/23/2016 OFFICE/OUTPATIENT VISIT EST Diagnosis: Bitten or stung by nonvenomous insect and other nonvenomous arthropods, initial encounter[ICD10: W57.XXXA] Diagnosis: Essential (primary) hypertension[ICD10: I10] Kaitlynn Mosley J[facility]ICA [facility] CPT-4: 64314 09/03/2016 ([id number]) OFFICE/OUTPATIENT VISIT EST Diagnosis: Low back pain[ICD10: M54.5] Diagnosis: Radiculopathy, lumbosacral region[ICD10: M54.17] [facility] CPT-[facility]: 53886 07/08/2016 ([id number]) OFFICE/OUTPATIENT VISIT EST Diagnosis: Acute pharyngitis, unspecified[ICD10: J02.9] Jessica GEE [facility] CPT-4: 46683 06/21/2016 ([id number]) OFFICE/OUTPATIENT VISIT EST Diagnosis: Cough[ICD10: R05] Diagnosis: Fever, unspecified[ICD10: R50.9] Janiya GEE [facility] CPT-4: 26415 02/23/2016 ([id number]) OFFICE/OUTPATIENT VISIT EST Diagnosis: Acute sinusitis, unspecified[ICD10: J01.90] Jessica GEE [facility] CPT-4: 68399 02/16/2016 OFFICE/OUTPATIENT VISIT EST Diagnosis: Type 2 diabetes mellitus without complications[ICD10: E11.9] Diagnosis: Gastro-esophageal reflux disease without esophagitis[ICD10: K21.9] Diagnosis: Ventral hernia without obstruction or gangrene[ICD10: K43.9] Suki GEE [facility] CPT-4: 22606 02/11/2015 OFFICE/OUTPATIENT VISIT EST 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] Diagnosis: Essential (primary) hypertension[ICD10: I10] Suki GEE [facility] CPT-4: 89279 01/28/2015 OFFICE/OUTPATIENT VISIT EST Diagnosis: SINUSITIS, ACUTE[ICD9: 461.9] Kaitlynn Mosley JESSICA Monica GEE [facility] CPT-4: 49253 12/06/2014 ([id number]) OFFICE/OUTPATIENT VISIT EST Diagnosis: SINUSITIS, ACUTE[ICD9: 461.9] Kaitlynn Mosley JESSICA GEE [facility] CPT-4: 07842 08/09/2014 ([id number]) OFFICE/OUTPATIENT VISIT EST Diagnosis: TONSILLITIS, ACUTE[ICD9: 463] Suki GEE [facility] CPT-4: 49046 06/24/2014 OFFICE/OUTPATIENT VISIT EST Diagnosis: SINUSITIS, ACUTE[ICD9: 461.9] Diagnosis: EUSTACHIAN TUBE DYSFUNCTION[ICD9: 381.81] Diagnosis: COUGH[ICD9: 786.2] Suki GEE DO [facility] CPT-4: 52761 03/22/2014 OFFICE/OUTPATIENT VISIT EST Diagnosis: Elbow pain, right[ICD9: 719.42] Suki GEE DO [facility] CPT-4: 65934 03/05/2014 OFFICE/OUTPATIENT VISIT EST Diagnosis: SINUSITIS, ACUTE[ICD9: 461.9] Jessica GEE DO [facility] CPT-4: 88256 01/16/2014 ([id number]) OFFICE/OUTPATIENT VISIT EST Diagnosis: GROSS HEMATURIA[ICD9: 599.71] Jessica GEE DO [facility] CPT-4: 46225 10/19/2013 ([id number]) OFFICE/OUTPATIENT VISIT EST Diagnosis: DM W/O COMPLICATION TYPE II[ICD9: 250.00] Diagnosis: HYPERLIPIDEMIA NEC/NOS[ICD9: 272.4] Jessica GEE DO [facility] CPT-4: 70868 05/10/2013 ([id number]) OFFICE/OUTPATIENT VISIT EST Diagnosis: SINUSITIS, ACUTE[ICD9: 461.9] Jessica GEE DO [facility] CPT-4: 39143 04/17/2013 OFFICE/OUTPATIENT VISIT EST Diagnosis: OTITIS MEDIA NOS[ICD9: 382.9] Diagnosis: COUGH[ICD9: 786.2] Suki GEE DO [facility] CPT-4: 70254 03/05/2013 OFFICE/OUTPATIENT VISIT EST Diagnosis: COUGH[ICD9: 786.2] Diagnosis: BRONCHITIS, ACUTE[ICD9: 466.0] Suki GEE DO [facility] CPT-4: 86567 03/02/2013 OFFICE/OUTPATIENT VISIT EST Diagnosis: COUGH[ICD9: 786.2] Diagnosis: OTITIS MEDIA NOS[ICD9: 382.9] Diagnosis: BRONCHITIS, ACUTE[ICD9: 466.0] Suki GEE DO [facility] CPT-4: 15834 03/01/2013 OFFICE/OUTPATIENT VISIT EST Diagnosis: DM W/O COMPLICATION TYPE II, UNCONTROLLED[ICD9: 250.02] Jessica GEE [facility] CPT-4: 48786 02/22/2013 ([id number]) PREV VISIT EST AGE 40-64 Diagnosis: DM W/O COMPLICATION TYPE II, UNCONTROLLED[ICD9: 250.02] Diagnosis: HYPERTENSION[ICD9: 401.9] Diagnosis: ROUTINE MEDICAL EXAM[ICD9: V70.0] Jessica GEE [facility] CPT-4: 94784 01/11/2013 OFFICE/OUTPATIENT VISIT EST Diagnosis: HZ (HERPES ZOSTER)[ICD9: 053.9] [facility]: 89553 11/03/2012 OFFICE/OUTPATIENT VISIT EST Diagnosis: URINARY TRACT INFECTION[ICD9: 599.0] Diagnosis: GERD[ICD9: 530.81] Diagnosis: PHARYNGITIS, ACUTE[ICD9: 462] Jessica GEE [facility] CPT-4: 86131 05/04/2012 OFFICE/OUTPATIENT VISIT EST Diagnosis: COUGH[ICD9: 786.2] Diagnosis: SINUSITIS, ACUTE[ICD9: 461.9] Diagnosis: PHARYNGITIS, ACUTE[ICD9: 462] Jessica GEE [facility] CPT-4: 46399 10/11/2011 OFFICE/OUTPATIENT VISIT EST Diagnosis: COUGH[ICD9: 786.2] Diagnosis: SINUSITIS, ACUTE[ICD9: 461.9] Diagnosis: PHARYNGITIS, ACUTE[ICD9: 462] Diagnosis: ALLERGIC RHINITIS[ICD9: 477.9] Xiomara Rodriguez [facility] CPT[facility]: 88062 06/23/2011 OFFICE/OUTPATIENT VISIT EST Diagnosis: COUGH[ICD9: 786.2] Diagnosis: SINUSITIS, ACUTE[ICD9: 461.9] Diagnosis: PHARYNGITIS, ACUTE[ICD9: 462] [facility]: 27590 06/14/2011 OFFICE/OUTPATIENT VISIT EST Diagnosis: SINUSITIS, ACUTE[ICD9: 461.9] Diagnosis: PHARYNGITIS, ACUTE[ICD9: 462] Jessica Mccormickderek JESSICA SLloyd ORENDER DO [facility] CPT-4: 33947 12/02/2010 OFFICE/OUTPATIENT VISIT EST Diagnosis: HYPERTENSION[ICD9: 401.9] Diagnosis: HYPERLIPIDEMIA NEC/NOS[ICD9: 272.4] Diagnosis: DERMATITIS NOS[ICD9: 692.9] Jessica VO S. O RENDER DO [facility] CPT-4: 12658 11/12/2010 OFFICE/OUTPATIENT VISIT EST Jessica Michaelaaronderek JESSICA S. ORE NDER DO [facility] CPT- 4: 77442 10/13/2010 ([id number]) OFFICE/OUTPATIENT VISIT EST Jessica Michaelaaronderek TORIN UJOANNA S. ORENDER DO [facility] CPT-4: 98064 06/24/2010 ([id number]) OFFICE/OUTPATIENT VISIT EST Jessica HARKINS UELINE S. ORENDER DO [facility] CPT-4: 49327 06/08/2010 ([id number]) OFFICE/OUTPATIENT VISIT EST Xiomara VO S . ORENDER DO [facility] CPT-4: 47808 05/20/2010 ([id number]) OFFICE/OUTPATIENT VISIT EST Jessica Mccormickderek TORIN UELINE S. ORENDER DO [facility] CPT-4: 27842 04/30/2010 ([id number]) OFFICE/OUTPATIENT VISIT, EST Jessica MANZANO S. ORENDER DO [facility] CPT-4: 43033 01/22/2010 Plan of Care Planned Activity Notes Codes Status Date Visit Diagnosis Plan: Type 2 diabetes mellitus without complications Discussion: Increase Jardience to 25mg daily Acccuchecks daily Check CMP, HbA1C in 2mos then fwup ICD-9 : 250.00 ICD-10 : E11.9 05/09/2019 Appointment: Jessica Gee [facility]el[facility] [phone] [facility] FOLLOW UP 05/09/2019 Patient Education: [employer] Patient Savings Message Alert Completed 05/09/2019 Visit Diagnosis Plan: Type 2 diabetes mellitus without complications Discussion: Lab discussed Add jardience 10mg po q AM Hold spironolactone Accuchecks daily alternating times Fwup 1 month with BS readings Notify if any signs of yeast infection ICD-9 : 250.00 ICD-10 : E11.9 04/03/2019 Appointment: Jessica Gee WPtel: [address] [place], [place] [address] FOLLOW UP 04/03/2019 Visit Diagnosis Plan: Urinary [...] : K21.9 09/27/2018 Appointment: Jessica Gee WPtel: [address] [place] [address] ACUTE ILLNESS 09/27/2018 Visit Diagnosis Plan: Carpal [...] : F51.01 04/24/2018 Appointment: Jessica Gee WPtel: [address] [place], [place] [phone] ACUTE ILLNESS 04/24/2018 Patient Education: celecoxib- [employer] [id number] Completed 04/24/2018 Patient Education: amitriptyline- [employer] [id number] Completed 04/24/2018 Visit Diagnosis Plan: Type 2 [...] : M25.50 12/27/2017 Appointment: Jessica Gee WPtel: [address] [place], [place] [phone] FOLLOW UP 12/27/2017 Patient Education: Patient Medication Summary Completed 12/27/2017 Patient Education: Patient Medication Summary Completed 12/19/2017 Care Plan: MAMMOGRAM BOTH BREASTS LOINC : 66447-5 Pending 12/19/2017 Patient Education: Patient Medication Summary Completed 12/16/2017 Care Plan: ASSAY THYROID STIM HORMONE Pen ding 12/16/2017 Care Plan: ASSAY OF FREE THYROXINE Pendin g 12/16/2017 Care Plan: LIPID PANEL LOINC : 87769-6 Pending 12/16/2017 Care Plan: CBC Pending 12/16/2017 Care Plan: A1C HPLC LOINC : 59845-7 Pending 12/16/2017 Patient Education: Patient Medication Summary Completed 10/17/2017 Care Plan: CT ANGIOGRAPHY CHEST LOINC : 53515-4 Pending 10/17/2017 Patient Education: Patient Medication Summary Completed 10/14/2017 Care Plan: CT ANGIOGRAPHY CHEST LOINC : 32332-1 Pending 10/14/2017 Appointment: Jessica Gee WPtel: [address] [place], [place] [phone] [facility] 10/13/2017 Patient Education: Patient Medication Summary Completed 10/13/2017 Visit Diagnosis Plan: Pleurodynia Discussion: patient sent for stat cxray. medrol dose pack prescribed for symptom management. instructed to perform deep breathing exercises at home to prevent atelectasis or pneumonia. will notify pa tient of results of xray and order additional tests/medications as needed. ICD-9 : 786.50 ICD-10 : R07.81 10/12/2017 Appointment: Sofi Gresham [address] [place], [place] [phone] ACUTE ILLNESS 10/12/2017 Patient Education: Patient Medication [...] : J20.9 09/16/2017 Appointment: Sofi Gresham [address] [facility] ACUTE ILLNESS 09/16/2017 Patient Education: Patient Medication Summary Completed 09/16/2017 Appointment: Jessica Gee WPtel: [address] [place], [place] [phone] [place] CANCELED 08/10/2017 Visit Diagnosis Plan: Cellulitis [...] : R00.0 05/25/2017 Appointment: Jessica Gee WPtel: [facility] [place] FOLLOW UP 05/25/2017 Patient Education: Patient Medication Summary Completed 05/25/2017 Visit Diagnosis Plan: Lumbago with sciatica, right britton e Discussion: Check arthritis panel Patient awaiting neck surgery before surgery will consider back surgery ICD-9 : 724.2 ICD-10 : M54.41 01/03/2017 Appointment: Jessica Gee WPtel: [address] [place], [place] [phone] ACUTE ILLNESS 01/03/2017 Patient Education: Patient Medication Summary Completed 01/03/2017 Patient Education: Patient Medication Summary Completed 12/16/2016 Care Plan: MAMMOGRAM SCREENING LOINC : 2 6347-5 Pending 12/16/2016 Patient Education: Patient Medication Summary Completed 10/07/2016 Care Plan: MRI LUMBAR SPINE W/O & W/DYE LOINC : 26949-9 Pending 10/07/2016 Visit Diagnosis Plan: Essential (primary) [...] : W57.XXXD 09/23/2016 Appointment: Jessica Gee WPtel: [facility] 5 confirmed WORK IN 09/23/2016 Patient Education: Patient Medication Summary Completed 09/23/2016 Visit Plan: Tick panel at [facility] Increa se spironolactone to 2 po am (New Rx sent) Take B/P at home/work and also come to office next week for recheck Will await lab results before starting any antibiotic 09/03/2016 Appointment: Kaitlynn Mosley WPtel: [facility] ACUTE ILLNESS 09/03/2016 Patient Education: Patient Medication Summary Completed 09/03/2016 Visit Diagnosis Plan: Low back pain Discussion: Celebr ex BID PT Continue stretches at home L/S xray Follow Up: 1 months ICD-9 : 724.2 ICD-10 : M54.5 07/08/2016 Appointment: Jessica Geetel: [address] [place], [place] [phone] ACUTE ILLNESS 07/08/2016 Patient Education: Patient Medication Summary Completed 07/08/2016 Care Plan: X-RAY EXAM L-S SPINE 2/3 VWS LOINC : 33450-3 Pending 07/08/2016 Visit Plan: Supportive care. Rest, Fluid s, Tylenol/Motrin prn fever or bodyaches. Notify if worsening symptoms.New toothebrush in 5 days 06/21/2016 Visit NOS Plan: Plan Notes: Supportive care. Rest, Fluids... 06/21/2016 Visit Diagnosis Plan: Acute pharyngitis, unspecified D iscussion: Strep Negative Supportive Care May use zyrtec 10mg q HS ICD-9 : 462 ICD-10 : J02.9 06/21/2016 Appointment: Jessica Gee WPtel: [address] [place], [place] [phone] ACUTE ILLNESS 06/21/2016 Patient Education: Patient Medication Summary Completed 06/21/2016 Visit Plan: No pulseox last week to comp are to today, but she does sound diminished today Studies as above ordered Continue cefdinir until results received Increase albuterol treatments to q4-6hrs PRN Continue supportive care 02/23/2016 Appointment: Janiya Gregorio [address] [place], [place] [phone] ACUTE ILLNESS 02/23/2016 Patient Education: Patient Medication Summary Completed 02/23/2016 Care Plan: CHEST X-RAY 2VW FRONTAL&LATL LOINC : 07438-2 Pending 02/23/2016 Visit Plan: Saline nasal flushes prn. Ty lenol/Motrin prn headache. Notify if persists/symptoms worsening. 02/16/2016 Appointment: Jessica Gee WPtel: [address] [place], [place] [phone] [place] ACUTE ILLNESS 02/16/2016 Patient Education: Patient Medication Summary Completed 02/16/2016 Visit Plan: Discussed labs Continue Topr ol at 200 mg PO daily Increase Aciphex to BID Notify if increase of Aciphex does not give relief. Repeat PT/INR in 2 weeks. 02/11/2015 Appointment: Suki Barahona WPtel: [address] [place], [place] [phone] 02/10 confirmed ~sl FOLLOW UP 02/11/2015 Patient Education: Patient Medication Summary Completed 02/11/2015 Patient Education: Patient Medication Summary Completed 02/06/2015 Care Plan: POC PROTIME/INR LOINC : 39783 -6 Pending 02/06/2015 Visit Plan: Increase Toprol XL 200 mg to one full tablet daily (is currently taking only 1/2 tablet) To for EKG today Monitor daily BP Notify of any changes- increased numbness, weakness, headache etc. 01/28/2015 Appointment: Suki Barahona WPtel: [address] [place] [address] ACUTE ILLNESS 01/28/2015 Patient Education: Patient Medication Summary Completed 01/28/2015 Visit Plan: ERx Amoxicillin and Flonase Nasal saline, humidified air Facial heat or cold packs for comfort Increase fluids/rest Discussed s/s of worsening, go to over weekend if these occur. 12/06/2014 Appointment: Kaitlynn Mosley WPtel: [address] [place], [place] [phone] ACUTE ILLNESS 12/06/2014 Patient Education: Patient Medication Summary Completed 12/06/2014 Appointment: Kaitlynn Mosely WPtel: [address] [place], [place] [phone] ACUTE ILLNESS 08/09/2014 Patient Education: Patient Medication Summary Completed 08/09/2014 Appointment: Suki Barahona WPtel: [address] [place], [place] [phone] ACUTE ILLNESS 06/24/2014 Patient Education: Patient Medication Summary Completed 06/24/2014 Appointment: Suki Barahona WPtel: [address] [place] [address] ACUTE ILLNESS 03/22/2014 Patient Education: Patient Medication Summary Completed 03/22/2014 Patient Education: [employer] - Antibi otics, Analgesics 18+, Oral Contraceptives F 18+ Completed 03/22/2014 Appointment: Jun Suki Edison WPtel: [address] [place] [address] FOLLOW UP 03/05/2014 Patient Education: Patient Medication Summary Completed 03/05/2014 Visit Plan: Saline nasal flushes prn. Ty lenol/Motrin prn headache. Notify if persists/symptoms worsening. Restart flonase 01/16/2014 Appointment: Jessica Gee WPtel: [address] [place] [address] ACUTE ILLNESS 01/16/2014 Patient Education: Patient Medication Summary Completed 01/16/2014 Appointment: Jessica Gee WPtel: [address] [place] [address] 10/19/2013 Patient Education: Patient Medication Summary Completed 10/19/2013 Appointment: Jessica Geetel: [address] [place] [address] 08/08 patient canceled appt and said will call back to [facility] FOLLOW UP 08/09/2013 Visit Plan: Increase Coumadin to 6mg M-F and stay on 5mg Sat, Sun Add lipids to labs Check PT/INR in 3wks Continue metfromin at current dose and accuchecks 05/10/2013 Appointment: Jessica Gee WPtel: [address] [place] [address] 05/09 FOLLOW UP 05/10/2013 Patient Education: Patient Medication Summary Completed 05/10/2013 Visit Plan: Saline nasal flushes prn. Ty lenol/Motrin prn headache. Notify if persists/symptoms worsening. 04/17/2013 Appointment: Jessica Geetel: [address] [place], [place] [phone] ACUTE ILLNESS 04/17/2013 Patient Education: Patient Medication Summary Completed 04/17/2013 Appointment: Suki Barahona WPtel: [address] [place], [place] [phone] FOLLOW UP 03/05/2013 Patient Education: Patient Medication Summary Completed 03/05/2013 Appointment: Suki Barahona WPtel: [address] [place], [place] [phone] FOLLOW UP 03/02/2013 Patient Education: Patient Medication Summary Completed 03/02/2013 Appointment: Suki Barahona WPtel: [address] [place] [address] ACUTE ILLNESS 03/01/2013 Patient Education: Patient Medication Summary Completed 03/01/2013 Visit Plan: Continue metformin and accuc hecks Add fish oil 1gram daily Check HbA1C, CMP in 2mos then fwup 02/22/2013 Appointment: Jessica Gee WPtel: [address] [place] [address] 02/21 work FOLLOW UP 02/22/2013 Patient Education: Patient Medication Summary Completed 02/22/2013 Visit Plan: Start Metformin Start Accuch ecks daily alternating times Will go for dilated eye exam once BS more stabilized Diabetic foot care discussed Diabetic diet info given 01/11/2013 Appointment: Jessica Gee WPtel: [address] [place], [place] [phone] [place] FOLLOW UP 01/11/2013 Patient Education: Patient Medication Summary Completed 01/11/2013 Appointment: Kaitlynn Mosley WPtel: [address] [place] [address] ACUTE ILLNESS 11/03/2012 Patient Education: Patient Medication Summary Completed 11/03/2012 Appointment: Xiomara Rodriguez WPtel: [address] [place] [address] ACUTE ILLNESS 05/04/2012 Patient Education: Patient Medication Summary Completed 05/04/2012 Visit Plan: pt reports that she always g ets yeast infections. Discussed that the antifungal can cause problems/increased bleeding with Coumdin. Pt. will start with probiotics and only take the Diflucan if needed. Cefdinir. 10/11/2011 Appointment: Xiomara Rodriguez WPtel: [address] [place] [address] ACUTE ILLNESS 10/11/2011 Patient Education: Patient Medication Summary Completed 10/11/2011 Appointment: Xiomara Rodriguez WPtel: [address] [place] [address] FOLLOW UP 06/23/2011 Patient Education: Patient Medication Summary Completed 06/23/2011 Visit Plan: Will prescribe an antibiotic and diflucan. Pt. reports that she frequently gets yeast infection. Discussed that she will notify if any symptoms persist. Pt. reports that her relatives have recently been hospitalized with pneumonia. 06/14/2011 Appointment: Xiomara Rodriguez WPtel: [address] [place] [address] ACUTE ILLNESS 06/14/2011 Patient Education: Patient Medication Summary Completed 06/14/2011 Visit Plan: sample of veramyst. Cefuroxi me axetil. Pt. will focus on hydration and rest. Discussed comfort measures and monitoring for worsening symptoms. 12/02/2010 Appointment: Xiomara Rodriguez WPtel: [address] [place] [address] ACUTE ILLNESS 12/02/2010 Patient Education: Patient Medication Summary Completed 12/02/2010 Visit Plan: Change HCTZ to spironolacton e will start zocor in 1 mo BP med in 1mo 11/12/2010 Appointment: Jessica Gee WPtel: [address] [place] [address] FOLLOW UP 11/12/2010 Patient Education: Patient Medication Summary Completed 11/12/2010 Appointment: Jessica Gee WPtel: [address] [place], [place] [address] BP CHECK 10/26/2010 Patient Education: Patient Medication Summary Completed 10/26/2010 Visit Plan: Continue Toprol at bedtime A dd HCTZ in AM BP check in 2wks Fasting lab with next PT/INR 10/13/2010 Appointment: Jessica Gee WPtel: [address] [place], [place] [phone] FOLLOW UP 10/13/2010 Patient Education: Patient Medication Summary Completed 10/13/2010 Visit Plan: Cont abx. Fwup with surgery as scheduled 06/24/2010 Appointment: Jessica Gee WPtel: [address] [place] [address] Hospital Follow Up 06/24/2010 Patient Education: Patient Medication Summary Completed 06/24/2010 Appointment: Jessica Gee WPtel: [address] [place] [address] Hospital Follow Up 06/22/2010 Visit Plan: pt [...] to subside. 06/08/2010 Appointment: Xiomara Rodriguez WPtel: [address] [place], [place] [phone] ACUTE ILLNESS 06/08/2010 Patient Education: Patient Medication Summary Completed 06/08/2010 Appointment: Xiomara Rodriguez WPtel: [address] [place], [place] [phone] FOLLOW UP 06/01/2010 Appointment: Jessica Gee WPtel: [address] [place], [place] [phone] [facility] 05/29/2010 Patient Education: Patient Medication Summary Completed 05/29/2010 Appointment: Xiomara Rodriguez WPtel: [address] [place], [place] [phone] ACUTE ILLNESS 05/20/2010 Patient Education: Patient Medication Summary Completed 05/20/2010 Appointment: Jessica Gee WPtel: [address] [place] [address] BP CHECK 05/13/2010 Patient Education: Patient Medication Summary Completed 05/13/2010 Visit Plan: Increase Lisinopril hct to 2 0/12.5mg q AM Use atarax prn and routinely at bedtime and Medrol dose pack BP check in 3wks Pt defers stress test at this time 04/30/2010 Appointment: Jessica Gee WPtel: [address] [place] [address] ACUTE ILLNESS 04/30/2010 Patient Education: Patient Medication Summary Completed 04/30/2010 Appointment: Jessica Gee WPtel: [address] [place] [address] BP CHECK 02/27/2010 Patient Education: Patient Medication Summary Completed 02/27/2010 Visit Plan: Cont Toprol Add Altace 10mg QD Cont Wellbutrin Will likely add SSRI after BP stable BP check in 2wks 01/22/2010 Appointment: Jessica Gee WPtel: [address] [place] [address] ACUTE ILLNESS 01/22/2010 Patient Education: Patient Medication Summary Completed 01/22/2010 Referral: Rupa Raines WPtel: [address] [place] Referral Completed Referral: Neymar Alberts WPtel: [address] [facility] [place] Referral Initiated Instructions Comment . Tick [...]
--- OUTSIDE RECORDS SUMMARY | 2019-09-10 03:04 | XMS REPORT | CCD ---
Author Author Nava Gee D.O. Organization [facility] Address [address] [place] [address] Phone Care Team Providers Care Engine Hostler Name Role Phone Jessica Gee D.O., PP Unavailable CCM Unavailable Summary Purpose Interface Exchange Insurance Providers Payer name Policy type / Coverage type Covered alliance party ID Effective Begin Date Effective End Date Blue Cross Blue Shield Blue Cross/Blue Shield [id number] Unknown Family History Family History data not found Social History Social History Element Codes Description Effective Dates Tobacco history SNOMED CT: 521654250 Never smoker 10/13/2010 Allergies, Adverse Reactions, Alerts [...] findings ICD-9: V70.0 ICD-10: Z00.00 12/16/2017 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 ICD-9: V58.6 1 [...] BY MOUTH TWICE DAILY 05/29/2019 07/27/2019 Active warfarin 6 mg tablet RxNorm: 479738 1 Tablet(s) Oral QD then on Tue/ take along with Warfarin 1mg (7mg) 05/09/2019 No Stop Date Active Jardiance 25 mg tablet RxNorm: 0979773 1 Tablet(s) Oral QD 05/09/19 20 05/23/2019 Inactive Jardiance 25 mg tablet RxNorm: 6242523 1 Tablet(s) Oral QAM 020 09/06/2019 Active Jardiance 10 mg tablet RxNorm: 0719180 1 Tablet(s) Oral QD 05/09/19 20 No Stop Date Active warfarin 1 mg tablet RxNorm: 564391 1 Tablet(s) Oral on Tue and with 6mg tablet (total 7mg) 05/09/2019 No Stop Date Active warfarin 5 mg tablet RxNorm: 699023 1 Tablet(s) Oral QD 05/02/2019 Active warfarin 1 mg tablet RxNorm: 713495 TAKE 1 TABLET BY [facility] ONCE DAILY. TAKE AN ADDITIONAL TABLET ON TUESDAY AND Tuesday05/02/2019 05/08/2019 Inactiv e Coumadin 5 mg tablet RxNorm: 094546 TAKE 1 TABLET BY MOUTH ONCE DAILY 04/02/2019 05/02/2019 Inactive celecoxib 200 mg capsule RxNorm: 919380 TAKE 1 CAPSULE BY MOUTH TWICE DAILY 03/20/2019 06/17/2019 Active pravastatin 40 mg tablet RxNorm: 369466 TAKE 1 TABLET BY MOUTH ONCE DAILY 03/19/2019 06/16/2019 Active metformin ER 500 mg tablet,extended release 24 hr RxNorm: 86 0975 TAKE 1 TABLET BY MOUTH TWICE DAILY 03/19/2019 05/17/2019 Inactive Coumadin 5 mg tablet RxNorm: 024915 TAKE 1 TABLET BY MOUTH ONCE DAILY 02/28/2019 04/01/2019 Inactive warfarin 1 mg tablet RxNorm: 909916 TAKE 1 TABLET BY [facility] ONCE DAILY. TAKE AN ADDITIONAL TABLET ON TUESDAY AND Tuesday02/28/2019 05/01/2019 Inactiv e omeprazole 40 mg capsule,delayed release RxNorm: 776850 TAKE 1 CAPSULE BY MOUTH TWICE DAILY 02/19/2019 No Stop Date Active metformin ER 500 mg tablet,extended release 24 hr RxNorm: 86 0975 1 Tablet(s) PO BID 02/19/2019 03/18/2019 Inactive metformin ER 500 mg tablet,extended release 24 hr RxNorm: 86 0975 1 Tablet(s) PO BID 01/15/2019 02/13/2019 Inactive alprazolam 0.25 mg tablet RxNorm: 683759 1 Tablet(s) Oral prior to flight 01/03/2019 No Stop Date Active omeprazole 40 mg capsule,delayed release RxNorm: 725250 TAKE 1 CAPSULE BY MOUTH TWICE DAILY 12/20/2018 02/18/2019 Inactive metformin ER 500 mg tablet,extended release 24 hr RxNorm: 86 0975 1 Tablet(s) PO BID 12/11/2018 01/09/2019 Inactive pravastatin 40 mg tablet RxNorm: 772644 TAKE 1 TABLET BY MOUTH ONCE DAILY 12/11/2018 03/18/2019 Inactive Coumadin 5 mg tablet RxNorm: 035125 1 Tablet(s) PO QD 11/27/201809/2018 Inactive metformin ER 500 mg tablet,extended release 24 hr RxNorm: 86 0975 1 Tablet(s) PO BID 10/02/2018 11/30/2018 Inactive warfarin 1 mg tablet RxNorm: 668354 TAKE 1 TABLET BY [facility] ONCE DAILY. TAKE AN ADDITIONAL TABLET ON TUESDAY AND Tuesday10/02/2018 02/27/2019 Inactiv e Bactrim DS 800 mg-160 mg tablet RxNorm: 017851 1 Tablet(s) PO BID 0 09/27/2018 10/03/2018 Inactive warfarin 5 mg tablet RxNorm: 432028 1 Tablet(s) PO QD 09/27/201810/2018 Inactive Toprol XL 200 mg tablet,extended release RxNorm: 889950 1 Table t(s) PO QD 09/18/2018 03/16/2019 Inactive omeprazole 40 mg capsule,delayed release RxNorm: 845156 TAKE 1 CAPSULE BY MOUTH TWICE DAILY 09/11/2018 12/19/2018 Inactive Coumadin 5 mg tablet RxNorm: 062196 1 Tablet(s) PO QD 08/21/201811/2018 Inactive metformin ER 500 mg tablet,extended release 24 hr RxNorm: 86 0975 1 Tablet(s) PO BID 07/31/2018 09/28/2018 Inactive omeprazole 40 mg capsule,delayed release RxNorm: 885001 TAKE 1 CAPSULE BY MOUTH TWICE DAILY 06/27/2018 09/10/2018 Inactive metformin ER 500 mg tablet,extended release 24 hr RxNorm: 86 0975 Tablet(s) 1 Tablet(s) PO BID 06/27/2018 07/31/2018 Inactive Toprol XL 200 mg tablet,extended release RxNorm: 227029 1 Table t(s) PO QD 06/14/2018 09/17/2018 Inactive Coumadin 5 mg tablet RxNorm: 538670 1 Tablet(s) PO QD 06/14/201804/2018 Inactive metformin ER 500 mg tablet,extended release 24 hr RxNorm: 86 0975 Tablet(s) 1 Tablet(s) PO BID 05/22/2018 06/26/2018 Inactive Coumadin 5 mg tablet RxNorm: 967130 TAKE 1 TABLET BY MOUTH ONCE DAILY 05/11/2018 06/14/2018 Inactive Lovenox 40 mg/0.4 mL subcutaneous syringe RxNorm: 583549 40 Mil ligram(s) SQ QD 05/05/2018 09/26/2018 Inactive amitriptyline 25 mg tablet RxNorm: 382697 1 Tablet(s) PO QHS fo r sleep/HAs 04/24/2018 10/20/2018 Inactive OneTouch Ultra Test strips RxNorm: Test blood sugar sigrid y (Dx:E11.65) 04/24/2018 No Stop Date Active celecoxib 200 mg capsule RxNorm: 260278 1 Capsule(s) PO BID 019 10/20/2018 Inactive Celebrex 200 mg capsule RxNorm: 154645 TAKE 1 CAPSULE BY MOUTH ONCE DAILY 04/19/2018 04/23/2018 Inactive warfarin 1 mg tablet RxNorm: 796794 1 Tablet(s) PO QD a nd additional tablet on Mon & Thurs 04/14/2018 10/01/2018 Inactive Toprol XL 200 mg tablet,extended release RxNorm: 632140 TAKE 1 TABLET BY MOUTH ONCE DAILY 04/11/2018 06/14/2018 Inactive metformin ER 500 mg tablet,extended release 24 hr RxNorm: 86 0975 Tablet(s) 1 Tablet(s) PO BID 03/17/2018 05/21/2018 Inactive Coumadin 5 mg tablet RxNorm: 921618 TAKE 1 TABLET BY MOUTH ONCE DAILY 03/15/2018 05/10/2018 Inactive Lovenox 40 mg/0.4 mL subcutaneous syringe RxNorm: 239973 40 Mil ligram(s) SQ QD 01/27/2018 04/11/2018 Inactive omeprazole 40 mg capsule,delayed release RxNorm: 485629 TAKE 1 CAPSULE BY MOUTH TWICE DAILY 01/23/2018 06/26/2018 Inactive pravastatin 40 mg tablet RxNorm: 566059 TAKE 1 TABLET BY MOUTH ONCE DAILY 01/23/2018 12/10/2018 Inactive metformin ER 500 mg tablet,extended release 24 hr RxNorm: 86 0975 Tablet(s) 1 Tablet(s) PO BID 01/16/2018 01/15/2018 Inactive Toprol XL 200 mg tablet,extended release RxNorm: 603652 TAKE 1 TABLET BY MOUTH ONCE DAILY 01/16/2018 04/10/2018 Inactive Coumadin 5 mg tablet RxNorm: 004054 TAKE 1 TABLET BY MOUTH ONCE DAILY 01/06/2018 03/14/2018 Inactive Celebrex 200 mg capsule RxNorm: 637271 1 Capsule(s) PO BID 12/28/19 18 03/26/2018 Inactive metformin ER 500 mg tablet,extended release 24 hr RxNorm: 86 0975 1 Tablet(s) PO BID Needs APPT 12/21/2017 01/16/2018 Inactive omeprazole 40 mg capsule,delayed release RxNorm: 100008 TAKE 1 CAPSULE BY MOUTH TWICE DAILY 11/02/2017 01/22/2018 Inactive Celebrex 200 mg capsule RxNorm: 173897 1 Capsule(s) PO QD 11/01/2017 12/26/2017 Inactive Coumadin 5 mg tablet RxNorm: 604429 Tablet(s) TAKE ONE TABLET BY MOUTH ONCE DAILY. 10/31/2017 12/29/2017 Inactive warfarin 1 mg tablet RxNorm: 123778 1 Tablet(s) PO QD 10/31/201703/22 Inactive spironolactone 25 mg tablet RxNorm: 696344 TAKE TWO TAB LETS BY MOUTH IN THE MORNING 10/31/2017 04/23/2018 Inactive metformin ER 500 mg tablet,extended release 24 hr RxNorm: 86 0975 1 Tablet(s) PO BID Needs updated fasting lab 10/20/2017 12/21/2017 Inactive Medrol (Dale) 4 mg tablets in a dose pack RxNorm: 411174 Tablet(s) PO take as directed 10/12/2017 12/15/2017 Inactive Celebrex 200 mg capsule RxNorm: 455080 1 Capsule(s) PO QD 10/03/2017 10/02/2017 Inactive spironolactone 25 mg tablet RxNorm: 647459 TAKE TWO TAB LETS BY MOUTH IN THE MORNING 09/19/2017 10/30/2017 Inactive Zithromax Z-Dale 250 mg tablet RxNorm: 189758 Tablet(s) PO take as directed 09/16/2017 10/11/2017 Inactive Medrol (Dale) 4 mg tablets in a dose pack RxNorm: 435505 Tablet(s) take as directed PO 09/16/2017 10/11/2017 Inactive doxycycline hyclate 100 mg tablet RxNorm: 8862447 1 Tablet(s) PO BI D 09/16/2017 09/15/2017 Inactive doxycycline hyclate 100 mg tablet RxNorm: 6847702 1 Tablet(s) PO BI D 09/16/2017 09/25/2017 Inactive Tessalon Perles 100 mg capsule RxNorm: 418881 1 Capsule(s) PO T ID as needed 09/16/2017 12/15/2017 Inactive warfarin 1 mg tablet RxNorm: 020389 1 Tablet(s) PO QD 09/06/201710/19 Inactive Coumadin 5 mg tablet RxNorm: 498289 Tablet(s) TAKE ONE TABLET BY MOUTH ONCE DAILY. 09/06/2017 10/31/2017 Inactive Toprol XL 200 mg tablet,extended release RxNorm: 950097 1 Table t(s) PO QD 2017 01/02/2018 Inactive warfarin 1 mg tablet RxNorm: 426045 1 Tablet(s) PO QD DUE FOR L ABS AUGUST 12 08/29/2017 09/06/2017 Inactive Coumadin 5 mg tablet RxNorm: 456230 Tablet(s) TAKE ONE TABLET BY MOUTH ONCE DAILY. DUE FOR PT/INR AUGUST 12 08/29/2017 09/06/2017 Inactive Coumadin 5 mg tablet RxNorm: 372893 Tablet(s) TAKE ONE TABLET BY MOUTH ONCE DAILY. DUE FOR PT/INR AUGUST 12 08/01/2017 08/29/2017 Inactive warfarin 1 mg tablet RxNorm: 286062 1 Tablet(s) PO QD DUE FOR L ABS AUGUST 12 08/01/2017 08/29/2017 Inactive scopolamine 1 mg over 3 days transdermal patch RxNorm: 99743 2 1 TD take off in 72 hours. 08/01/2017 12/26/2017 Inactive pravastatin 40 mg tablet RxNorm: 548427 Tablet(s) TAKE ONE TABLET BY MOUTH ONCE DAILY 07/07/2017 01/02/2018 Inactive Coumadin 5 mg tablet RxNorm: 081503 Tablet(s) TAKE ONE TABLET BY MOUTH ONCE DAILY. DUE FOR PT/INR. 06/29/2017 08/01/2017 Inactive warfarin 1 mg tablet RxNorm: 258492 1 Tablet(s) PO QD 06/29/201707/19 Inactive Coumadin 5 mg tablet RxNorm: 663523 TAKE ONE TABLET BY MOUTH ONCE DAILY. DUE FOR PT/INR. 05/30/2017 06/29/2017 Inactive omeprazole 40 mg capsule,delayed release RxNorm: 408254 1 Capsu le(s) PO BID 05/30/2017 08/27/2017 Inactive Celebrex 200 mg capsule RxNorm: 481534 1 Capsule(s) PO QD 05/23/2017 10/03/2017 Inactive metformin ER 500 mg tablet,extended release 24 hr RxNorm: 86 0975 TAKE ONE TABLET BY MOUTH TWICE DAILY 05/20/2017 10/20/2017 Inactive Coumadin 5 mg tablet RxNorm: 147688 1 Tablet(s) PO QD due for PT/IN R 04/25/2017 05/24/2017 Inactive warfarin 1 mg tablet RxNorm: 486479 1 Tablet(s) PO QD due for l abs this week 03/16/2017 06/29/2017 Inactive omeprazole 40 mg capsule,delayed release RxNorm: 645254 1 Capsu le(s) PO BID 03/16/2017 05/30/2017 Inactive Celebrex 200 mg capsule RxNorm: 118653 1 Capsule(s) PO BID as n eeded for pain 03/16/2017 05/22/2017 Inactive Coumadin 5 mg tablet RxNorm: 728451 1 Tablet(s) PO QD due for PT/IN R 03/16/2017 04/14/2017 Inactive Celebrex 200 mg capsule RxNorm: 135394 1 Capsule(s) PO BID as n eeded for pain 02/09/2017 03/15/2017 Inactive Toprol XL 200 mg tablet,extended release RxNorm: 884902 1 Table t(s) PO QD 02/08/2017 2017 Inactive Celebrex 200 mg capsule RxNorm: 214570 1 Capsule(s) PO BID as n eeded for pain 01/14/2017 02/08/2017 Inactive omeprazole 40 mg capsule,delayed release RxNorm: 654528 1 Capsu le(s) PO BID 01/12/2017 03/16/2017 Inactive Coumadin 5 mg tablet RxNorm: 892178 1 Tablet(s) PO QD 12/15/201602/19 Inactive warfarin 1 mg tablet RxNorm: 536292 1 Tablet(s) PO QD 12/15/201602/19 Inactive metformin ER 500 mg tablet,extended release 24 hr RxNorm: 86 0975 Tablet(s) TAKE ONE TABLET BY MOUTH TWICE DAILY 11/29/2016 02/26/2017 Inactive omeprazole 40 mg capsule,delayed release RxNorm: 435075 1 Capsu le(s) PO BID 11/29/2016 12/28/2016 Inactive pravastatin 40 mg tablet RxNorm: 481568 Tablet(s) TAKE ONE TABLET BY MOUTH ONCE DAILY 11/19/2016 07/07/2017 Inactive omeprazole 40 mg capsule,delayed release RxNorm: 516624 1 Capsu le(s) PO BID 10/19/2016 10/18/2016 Inactive omeprazole 40 mg capsule,delayed release RxNorm: 794310 1 Capsu le(s) PO BID 10/19/2016 11/17/2016 Inactive pantoprazole 40 mg tablet,delayed release RxNorm: 995074 1 Tabl et(s) PO QD 09/30/2016 10/18/2016 Inactive pantoprazole 40 mg tablet,delayed release RxNorm: 941755 1 Tabl et(s) PO QD 09/30/2016 09/29/2016 Inactive Zofran ODT 4 mg disintegrating tablet RxNorm: 519015 1 Tablet(s) PO Q4H as needed for nausea 09/15/2016 01/02/2017 Inactive Coumadin 5 mg tablet RxNorm: 828997 1 Tablet(s) PO QD 09/14/201611/20 Inactive warfarin 1 mg tablet RxNorm: 731089 1 Tablet(s) PO QD 09/14/201611/20 Inactive spironolactone 25 mg tablet RxNorm: 060806 2 Tablet(s) PO QAM 09/0301/02/2017 Inactive Wellbutrin XL 300 mg 24 hr tablet, extended release RxNorm: 349087 TAKE ONE TABLET BY MOUTH ONCE DAILY 08/26/2016 12/26/2017 Inactive Toprol XL 200 mg tablet,extended release RxNorm: 610212 1 Table t(s) PO QD 07/28/2016 02/08/2017 Inactive metformin ER 500 mg tablet,extended release 24 hr RxNorm: 86 0975 Tablet(s) TAKE ONE TABLET BY MOUTH TWICE DAILY 07/15/2016 11/29/2016 Inactive cyclobenzaprine 5 mg tablet RxNorm: 670966 1 Tablet(s) PO QHS f or spasm 07/08/2016 08/06/2016 Inactive Celebrex 200 mg capsule RxNorm: 1 Capsule(s) PO BID 07/08/2016 Inactive spironolactone 25 mg tablet RxNorm: 690646 1 Tablet(s) PO QAM 07/0609/02/2016 Inactive Wellbutrin XL 300 mg 24 hr tablet, extended release RxNorm: 923096 TAKE ONE TABLET BY MOUTH ONCE DAILY 06/15/2016 07/14/2016 Inactive Coumadin 5 mg tablet RxNorm: 770117 1 Tablet(s) PO QD 06/08/201608/20 Inactive warfarin 1 mg tablet RxNorm: 081073 1 Tablet(s) PO QD 06/08/201608/20 Inactive Toprol XL 200 mg tablet,extended release RxNorm: 452067 TAKE ONE TABLET BY MOUTH ONCE DAILY 04/26/2016 07/28/2016 Inactive pravastatin 40 mg tablet RxNorm: 124367 TAKE ONE TABLET BY MOUT H ONCE DAILY 04/19/2016 10/15/2016 Inactive Coumadin 5 mg tablet RxNorm: 114112 1 Tablet(s) PO QD 03/09/201605/19 Inactive warfarin 1 mg tablet RxNorm: 962173 1 Tablet(s) PO QD 03/09/201605/19 Inactive metformin ER 500 mg tablet,extended release 24 hr RxNorm: 86 0975 TAKE ONE TABLET BY MOUTH TWICE DAILY 02/25/2016 07/15/2016 Inactive spironolactone 25 mg tablet RxNorm: 479522 TAKE ONE TAB LET BY MOUTH ONCE DAILY IN THE MORNING 02/25/2016 07/06/2016 Inactive prednisone 20 mg tablet RxNorm: 608845 1 Tablet(s) PO QAM 02/16/2016 02/20/2016 Inactive cefdinir 300 mg capsule RxNorm: 410514 2 Capsule(s) PO QD 02/16/2016 02/25/2016 Inactive Toprol XL 200 mg tablet,extended release RxNorm: 544990 TAKE ONE TABLET BY MOUTH ONCE DAILY 01/26/2016 04/24/2016 Inactive Aciphex 20 mg tablet,delayed release RxNorm: 347551 1 Tablet(s) PO BID 12/24/2015 09/29/2016 Inactive Omeprazole and Pepci d have not helped. Coumadin 5 mg tablet RxNorm: 674459 1 Tablet(s) PO QD 12/10/201502/19 Inactive Coumadin 5 mg tablet RxNorm: 502852 1 Tablet(s) PO QD 12/08/201511/20 Inactive Toprol XL 200 mg tablet,extended release RxNorm: 009509 TAKE ONE TABLET BY MOUTH ONCE DAILY 11/20/2015 01/18/2016 Inactive warfarin 1 mg tablet RxNorm: 049073 1 Tablet(s) PO QD 11/03/201502/19 Inactive pravastatin 40 mg tablet RxNorm: 274650 Tablet(s) TAKE ONE TABLET BY MOUTH ONCE DAILY 10/20/2015 01/17/2016 Inactive pravastatin 40 mg tablet RxNorm: 101388 TAKE ONE TABLET BY MOUT H ONCE DAILY 10/20/2015 10/19/2015 Inactive metformin ER 500 mg tablet,extended release 24 hr RxNorm: 86 0975 TAKE ONE TABLET BY MOUTH TWICE DAILY 10/03/2015 12/31/2015 Inactive Toprol XL 200 mg tablet,extended release RxNorm: 993934 TAKE ONE TABLET BY MOUTH ONCE DAILY 09/17/2015 11/15/2015 Inactive Coumadin 5 mg tablet RxNorm: 273060 1 Tablet(s) PO QD 09/02/201511/19 Inactive Wellbutrin XL 300 mg 24 hr tablet, extended release RxNorm: 745631 TAKE ONE TABLET BY MOUTH ONCE DAILY 08/01/2015 10/29/2015 Inactive Pepcid 20 mg tablet RxNorm: 919028 1 Tablet(s) PO BID as needed 05/24/2017 Inactive warfarin 1 mg tablet RxNorm: 045556 TAKE ONE TABLET BY MOUTH ON CE DAILY 07/08/2015 11/03/2015 Inactive pravastatin 40 mg tablet RxNorm: 017709 1 Tablet(s) PO QD 07/08/2015 10/05/2015 Inactive spironolactone 25 mg tablet RxNorm: 554782 TAKE ONE TAB LET BY MOUTH ONCE DAILY IN THE MORNING 06/13/2015 09/10/2015 Inactive Coumadin 5 mg tablet RxNorm: 031314 1 Tablet(s) PO QD 06/05/201508/19 Inactive Wellbutrin XL 300 mg 24 hr tablet, extended release RxNorm: 207307 TAKE ONE TABLET BY MOUTH ONCE DAILY 05/16/2015 09/26/2018 Inactive Wellbutrin XL 300 mg 24 hr tablet, extended release RxNorm: 541225 TAKE ONE TABLET BY MOUTH ONCE DAILY 05/16/2015 06/14/2015 Inactive metformin ER 500 mg tablet,extended release 24 hr RxNorm: 86 0975 TAKE ONE TABLET BY MOUTH TWICE DAILY 05/16/2015 08/13/2015 Inactive pravastatin 40 mg tablet RxNorm: 904167 1 Tablet(s) PO QD 04/10/2015 07/07/2015 Inactive Aciphex 20 mg tablet,delayed release RxNorm: 495440 1 Tablet(s) PO BID 03/07/2015 09/02/2015 Inactive Omeprazole and Pepci d have not helped. Toprol XL 200 mg tablet,extended release RxNorm: 898252 1 Table t(s) PO QD 03/05/2015 08/31/2015 Inactive Aciphex 20 mg tablet,delayed release RxNorm: 839553 1 Tablet(s) PO QD 03/04/2015 03/06/2015 Inactive Omeprazole and Pepci d have not helped. Coumadin 5 mg tablet RxNorm: 887613 1 Tablet(s) PO QD 02/28/20150 11/2015 Inactive Aciphex 20 mg tablet,delayed release RxNorm: 641969 1 Tablet(s) PO BID 02/11/2015 03/03/2015 Inactive Omeprazole and Pepci d have not helped. metformin ER 500 mg tablet,extended release 24 hr RxNorm: 86 0975 1 Tablet(s) PO BID 01/10/2015 04/09/2015 Inactive pravastatin 40 mg tablet RxNorm: 535474 1 Tablet(s) PO QD 01/06/2015 04/05/2015 Inactive Wellbutrin XL 300 mg 24 hr tablet, extended release RxNorm: 001500 TAKE ONE TABLET BY MOUTH ONCE DAILY 12/19/2014 02/16/2015 Inactive amoxicillin 500 mg capsule RxNorm: 107222 2 Capsule(s) PO BID 12/0612/15/2014 Inactive Flonase 50 mcg/actuation nasal spray,suspension RxNorm: 8963 23 2 [place] each nostril NASAL QD 12/06/2014 03/05/2015 Inactive Coumadin 5 mg tablet RxNorm: 904117 1 Tablet(s) PO QD 11/28/201410/2014 Inactive spironolactone 25 mg tablet RxNorm: 652372 1 Tablet(s) PO QAM 11/2602/23/2015 Inactive Coumadin 5 mg tablet RxNorm: 766156 1 Tablet(s) PO QD 1 Tablet(s) PO QD- NEED TO CHECK LABS 10/30/2014 11/28/2014 Inactive warfarin 1 mg tablet RxNorm: 024802 1 Tablet(s) PO QD 10/30/201409/2015 Inactive Aciphex 20 mg tablet,delayed release RxNorm: 282396 1 Tablet(s) PO QD 10/02/2014 02/10/2015 Inactive Omeprazole and Pepci d have not helped. Coumadin 5 mg tablet RxNorm: 917853 1 Tablet(s) PO QD 1 Tablet(s) PO QD- NEED TO CHECK LABS 09/30/2014 10/30/2014 Inactive pravastatin 40 mg tablet RxNorm: 494082 1 Tablet(s) PO QD 09/25/2014 01/06/2015 Inactive warfarin 1 mg tablet RxNorm: 411538 1 Tablet(s) PO QD T [place] ONE TABLET BY MOUTH DIRECTED ON TUE AND TH08/28/2014 10/29/2014 Inactive metformin ER 500 mg tablet,extended release 24 hr RxNorm: 86 0975 1 Tablet(s) PO BID 08/28/2014 01/10/2015 Inactive amoxicillin 875 mg tablet RxNorm: 663087 1 Tablet(s) PO BID 015 08/18/2014 Inactive Toprol XL 200 mg tablet,extended release RxNorm: 543140 TAKE ONE TABLET BY MOUTH ONCE DAILY 07/22/2014 03/05/2015 Inactive Coumadin 5 mg tablet RxNorm: 671540 1 Tablet(s) PO QD 07/01/201409/18 Inactive amoxicillin 875 mg tablet RxNorm: 917173 1 Tablet(s) PO BID 015 06/30/2014 Inactive pravastatin 40 mg tablet RxNorm: 567912 1 Tablet(s) PO QD needs fasting labs 06/19/2014 09/25/2014 Inactive Coumadin 5 mg tablet RxNorm: 159740 1 Tablet(s) PO QD 1 Tablet(s) PO QD TAKE ONE TABLET BY MOUTH ONCE DAILY-need labs 05/28/2014 07/01/2014 Inactive warfarin 1 mg tablet RxNorm: 947388 1 Tablet(s) PO As Directed 05/1908/28/2014 Inactive pravastatin 40 mg tablet RxNorm: 379290 1 Tablet(s) PO QD needs fasting labs 05/14/2014 06/19/2014 Inactive metformin ER 500 mg tablet,extended release 24 hr RxNorm: 86 0975 1 Tablet(s) PO BID 04/25/2014 08/28/2014 Inactive spironolactone 25 mg tablet RxNorm: 070594 1 Tablet(s) PO QAM 04/2511/26/2014 Inactive Coumadin 5 mg tablet RxNorm: 190947 1 Tablet(s) PO QD 1 Tablet(s) PO QD TAKE ONE TABLET BY MOUTH ONCE DAILY 04/23/2014 05/28/2014 Inactive Coumadin 5 mg tablet RxNorm: 094017 1 Tablet(s) PO QD 1 Tablet(s) PO QD TAKE ONE TABLET BY MOUTH ONCE DAILY 03/22/2014 04/20/2014 Inactive Tessalon Perles 100 mg capsule RxNorm: 875958 1 Capsule(s) PO TID 0 03/22/2014 03/28/2014 Inactive cefdinir 300 mg capsule RxNorm: 227864 2 Capsule(s) PO QD 03/22/2014 03/31/2014 Inactive Medrol (Dale) 4 mg tablets in a dose pack RxNorm: 086136 Tablet(s) PO as directed 03/05/2014 08/08/2014 Inactive Coumadin 5 mg tablet RxNorm: 491074 1 Tablet(s) PO QD 1 Tablet(s) PO QD TAKE ONE TABLET BY MOUTH ONCE DAILY 02/19/2014 03/20/2014 Inactive pravastatin 40 mg tablet RxNorm: 241042 1 Tablet(s) PO QD 02/04/2014 05/14/2014 Inactive Coumadin 5 mg tablet RxNorm: 330028 1 Tablet(s) PO QD T [place] ONE TABLET BY MOUTH ONCE DAILY 01/21/2014 02/19/2014 Inactive Medrol (Dale) 4 mg tablets in a dose pack RxNorm: 259150 Tablet(s) PO as directed 01/18/2014 03/04/2014 Inactive cefdinir 300 mg capsule RxNorm: 890416 2 Capsule(s) PO QD 01/16/2014 01/25/2014 Inactive metformin ER 500 mg tablet,extended release 24 hr RxNorm: 86 0975 1 Tablet(s) PO BID 12/17/2013 04/25/2014 Inactive Wellbutrin SR 150 mg tablet,sustained-release RxNorm: 687629 1 Tablet(s) PO BID 11/30/2013 02/27/2014 Inactive spironolactone 25 mg tablet RxNorm: 071151 1 Tablet(s) PO QAM 10/2204/25/2014 Inactive Macrobid 100 mg capsule RxNorm: 071283 1 Capsule(s) PO BID 10/20/19 14 10/25/2013 Inactive Macrobid 100 mg capsule RxNorm: 778901 1 Capsule(s) PO BID 10/20/19 14 10/18/2013 Inactive Toprol XL 100 mg tablet,extended release RxNorm: 851589 1 Table t(s) PO QD 10/15/2013 01/15/2014 Inactive Toprol XL 200 mg tablet,extended release RxNorm: 702720 1 Table t(s) PO QD 10/02/2013 07/22/2014 Inactive Wellbutrin XL 300 mg 24 hr tablet, extended release RxNorm: 431775 1 Tablet(s) PO QD 09/28/2013 12/19/2014 Inactive Aciphex 20 mg tablet,delayed release RxNorm: 288131 1 Tablet(s) PO QD 08/29/2013 10/02/2014 Inactive Omeprazole and Pepci d have not helped. Coumadin 5 mg tablet RxNorm: 668726 1 Tablet(s) PO QD 08/14/201307/20 Inactive Coumadin 5 mg tablet RxNorm: 048154 1 Tablet(s) PO QD 08/14/201305/2013 Inactive pravastatin 40 mg tablet RxNorm: 864986 1 Tablet(s) PO QD 07/24/2013 02/04/2014 Inactive warfarin 1 mg tablet RxNorm: 624773 1 Tablet(s) PO QD T [place] ONE TABLET BY MOUTH DIRECTED ON MON AND THUR 07/09/2013 05/28/2014 Inactive warfarin 5 mg tablet RxNorm: 766918 1 Tablet(s) PO QD T [place] ONE TABLET BY MOUTH EVERY DAY 06/08/2013 07/07/2013 Inactive spironolactone 25 mg tablet RxNorm: 739785 1 Tablet(s) PO QAM 05/3010/15/2013 Inactive clindamycin 300 mg capsule RxNorm: 028843 2 Capsule(s) PO TID 04/1704/30/2013 Inactive warfarin 5 mg tablet RxNorm: 001026 1 Tablet(s) PO QD 03/12/201305/20 Inactive azithromycin 250 mg tablet RxNorm: 997085 2 Tablet(s) PO QD 013 03/07/2013 Inactive metformin ER 500 mg tablet,extended release 24 hr RxNorm: 86 0975 1 Tablet(s) PO BID 02/22/2013 12/17/2013 Inactive spironolactone 25 mg tablet RxNorm: 929955 1 Tablet(s) PO QAM 01/2205/30/2013 Inactive metformin ER 500 mg tablet,extended release 24 hr RxNorm: 86 0977 1 Tablet(s) PO BID 01/11/2013 02/21/2013 Inactive pravastatin 40 mg tablet RxNorm: 103163 1 Tablet(s) PO QD 01/11/2013 07/24/2013 Inactive warfarin 5 mg tablet RxNorm: 198150 1 Tablet(s) PO QD 01/04/201302/19 Inactive warfarin 1 mg tablet RxNorm: 154630 Tablet(s) PO TAKE O NE TABLET BY MOUTH DIRECTED ON MON AND THUR 12/14/2012 07/08/2013 Inactive scopolamine 1.5 mg 72 hr Transderm Patch RxNorm: 278846 TD Apply 1 patch behind ear every 72 hours, replace after 3 days. 11/08/2012 01/15/2014 Inacti ve Pepcid 20 mg tablet RxNorm: 896868 1 Tablet(s) PO BID as needed 01/31/2013 Inactive Famvir 500 mg tablet RxNorm: 669738 1 Tablet(s) PO Q8H 11/03/2012 Inactive Aciphex 20 mg tablet,delayed release RxNorm: 937032 1 Tablet(s) PO QD 11/03/2012 05/01/2013 Inactive Omeprazole and Pepci d have not helped. gabapentin 300 mg capsule RxNorm: 327029 Capsule(s) PO TID 11/04/19 13 01/15/2014 Inactive warfarin 5 mg tablet RxNorm: 300490 1 Tablet(s) PO QD 11/02/201212/19 Inactive Wellbutrin XL 300 mg 24 hr tablet, extended release RxNorm: 526412 1 Tablet(s) PO QD 10/17/2012 04/30/2013 Inactive pravastatin 40 mg tablet RxNorm: 248009 Tablet(s) PO TA KE ONE TABLET BY MOUTH EVERY DAY. NEED FASTING LABS 09/18/2012 01/10/2013 Inactive Toprol XL 200 mg tablet,extended release RxNorm: 667891 Tablet(s) PO TAKE ONE TABLET BY MOUTH EVERY DAY 09/08/2012 10/01/2013 Inactive warfarin 5 mg tablet RxNorm: 099462 1 Tablet(s) PO QD 08/31/201210/19 Inactive pravastatin 40 mg tablet RxNorm: 653194 1 Tablet(s) PO QD Needs fasting labs 08/18/2012 09/16/2012 Inactive TAKE ONE TABLET BY M OUTH EVERY DAY warfarin 1 mg tablet RxNorm: 074371 1 Tablet(s) PO As directed on Mon and Th08/11/2012 12/13/2012 Inactive spironolactone 25 mg tablet RxNorm: 657686 1 Tablet(s) PO QAM 07/1110/08/2012 Inactive warfarin 5 mg tablet RxNorm: 545695 1 Tablet(s) PO QD 07/03/201208/19 Inactive Diflucan 100 mg tablet RxNorm: 585094 1 Tablet(s) PO QD 05/04/2012 Inactive Cipro 500 mg tablet RxNorm: 400511 1 Tablet(s) PO BID 05/04/201204/22 Inactive Aciphex 20 mg tablet,delayed release RxNorm: 478016 1 Tablet(s) PO QD 05/04/2012 07/02/2012 Inactive Omeprazole and Pepci d have not helped. warfarin 5 mg tablet RxNorm: 365968 1 Tablet(s) PO QD 05/02/201206/19 Inactive warfarin 5 mg tablet RxNorm: 382773 1 Tablet(s) PO QD 03/02/201204/21 Inactive Toprol XL 200 mg tablet,extended release RxNorm: 292784 1 Table t(s) PO QD 03/02/2012 05/30/2012 Inactive spironolactone 25 mg tablet RxNorm: 354310 1 Tablet(s) PO QAM 02/0707/11/2012 Inactive pravastatin 40 mg tablet RxNorm: 740102 Tablet(s) PO 01/31/201208/17 Inactive TAKE ONE TABLET BY MOUTH EVERY DAY pravastatin 40 mg tablet RxNorm: 267295 1 Tablet(s) PO QD 01/31/2012 08/18/2012 Inactive omeprazole 40 mg capsule,delayed release RxNorm: 864400 1 Capsule(s) PO QD for stomach 01/11/2012 11/02/2012 Inactive for stomach warfarin 5 mg tablet RxNorm: 015652 1 Tablet(s) PO QD 01/03/201202/18 Inactive warfarin 5 mg tablet RxNorm: 136414 1 Tablet(s) PO QD 12/03/201112/19 Inactive pravastatin 40 mg tablet RxNorm: 923104 1 Tablet(s) PO QD 11/25/2011 01/23/2012 Inactive cefdinir 300 mg Cap RxNorm: 752181 1 Capsule(s) PO BID 10/11/201103/2011 Inactive Culturelle 10 billion cell Cap RxNorm: 160358 1 Capsule(s) PO BID 0 10/11/2011 11/09/2011 Inactive Diflucan 100 mg Tab RxNorm: 773081 1 Tablet(s) PO QD 10/11/201110/19 Inactive Wellbutrin XL 300 mg 24 hr tablet, extended release RxNorm: 584782 1 Tablet(s) PO QD 09/14/2011 10/17/2012 Inactive pravastatin 40 mg tablet RxNorm: 820501 1 Tablet(s) PO QD 08/25/2011 11/25/2011 Inactive Coumadin 5 mg tablet RxNorm: 964917 Tablet(s) PO Take as direct ed by doctor. 07/07/2011 12/03/2011 Inactive Singulair 10 mg Tab RxNorm: 504640 1 Tablet(s) PO QD al lergy medication. (Please try to be consistent in dosing) 06/23/2011 01/15/2014 Inactive Diflucan 100 mg Tab RxNorm: 213288 1 Tablet(s) PO QD 06/14/201107/02 Inactive cefdinir 300 mg Cap RxNorm: 604716 1 Capsule(s) PO BID 06/14/201106/2011 Inactive pravastatin 40 mg Tab RxNorm: 151861 1 Tablet(s) PO QD 05/25/201108/2011 Inactive warfarin 5 mg Tab RxNorm: 041629 Tablet(s) PO 05/25/2011 10/18/2011 In active TAKE ONE TABLET BY MOUTH EVERY DAY Toprol XL 200 mg tablet,extended release RxNorm: 945069 1 Table t(s) PO QD 03/05/2011 06/02/2011 Inactive spironolactone 25 mg tablet RxNorm: 504513 1 Tablet(s) PO QAM 02/2402/08/2012 Inactive omeprazole 40 mg capsule,delayed release RxNorm: 226937 1 Capsule(s) PO QD for stomach 01/06/2011 01/11/2012 Inactive for stomach warfarin 5 mg Tab RxNorm: 463654 1 Tablet(s) PO QD 12/17/2010 011 Inactive warfarin 5 mg Tab RxNorm: 033130 1 Tablet(s) PO QD 11/18/2010 011 Inactive spironolactone 25 mg Tab RxNorm: 163958 1 Tablet(s) PO QAM 11/13/19 11 02/24/2011 Inactive Coumadin 6 mg Tab RxNorm: 048242 1 Tablet(s) PO QD 10/28/2010 011 Inactive May have generic hydrochlorothiazide 25 mg Tab RxNorm: 989790 1 Tablet(s) PO QAM 11/11/2010 Inactive Wellbutrin XL 300 mg 24 hr Tab RxNorm: 490739 1 Tablet(s) PO QD 09/14/2011 Inactive Septra DS 800 mg-160 mg Tab RxNorm: 438363 1 Tablet(s) PO BID 06/0806/17/2010 Inactive Pyridium 100 mg Tab RxNorm: 0561581 1 Tablet(s) PO TID 06/08/2010 Inactive Wellbutrin XL 300 mg 24 hr Tab RxNorm: 408297 1 Tablet(s) PO QD 05/201007/15/2010 Inactive hydroxyzine 25 mg Tab RxNorm: 214779 1 Tablet(s) PO QID prn itching--take routinely at bedtime. (pt. may not refil at this time but later) 05/20/2010 10/10/2011 Inactive Zyrtec 10 mg Tab RxNorm: 2372976 1 Tablet(s) PO BID 05/20/20102010 Inactive Coumadin 1 mg Tab RxNorm: 348773 1 Tablet(s) PO 6mg M-F, 7mg S-S 11/16/2010 Inactive hydroxyzine 25 mg Tab RxNorm: 459597 1 Tablet(s) PO QID prn itching--take routinely at bedtime 04/30/2010 05/19/2010 Inactive Toprol XL 200 mg 24 hr Tab RxNorm: 868597 1 Tablet(s) PO QD 011 06/23/2010 Inactive lisinopril-hydrochlorothiazide 10 mg-12.5 mg Tab RxNorm: 197 885 1 Tablet(s) PO QD 04/20/2010 04/29/2010 Inactive omeprazole 40 mg Cap, Delayed Release RxNorm: 903704 1 Capsule(s) PO QD for stomach 04/20/2010 08/17/2010 Inactive lisinopril-hydrochlorothiazide 10 mg-12.5 mg Tab RxNorm: 197 885 Tablet(s) PO 1QDAM - TAKE ONE TABLET BY MOUTH EVERY DAY IN THE MORNING 03/09/2010 Inactive lisinopril-hydrochlorothiazide 10 mg-12.5 mg Tab RxNorm: 197 885 1 Tablet(s) PO QD 02/27/2010 04/20/2010 Inactive Wellbutrin XL 300 mg 24 hr Tab RxNorm: 197150 1 Tablet(s) PO QD 05/21/2010 Inactive lisinopril-hydrochlorothiazide 10 mg-12.5 mg Tab RxNorm: 197 885 1 Tablet(s) PO QD 01/28/2010 02/26/2010 Inactive omeprazole 40 mg Cap, Delayed Release RxNorm: 364856 1 Capsule(s) PO QD for stomach 01/22/2010 04/20/2010 Inactive Altace 10 mg Cap RxNorm: 790891 1 Capsule(s) PO QD for BP 01/22/2010 03/22/2010 Inactive Coumadin 6 mg Tab RxNorm: 315596 1 Tablet(s) PO QD May have generic 12/03/2009 05/01/2010 Inactive Coumadin 6 mg Tab RxNorm: 715603 1 Tablet(s) PO 12/01/2009 12/02/2009 Inactive Coumadin 1 mg Tab RxNorm: 012937 1 Tablet(s) PO QD 11/28/2009 010 Inactive Coumadin 1 mg Tab RxNorm: 642862 1 Tablet(s) PO QD 07/02/2009 010 Inactive lisinopril-hydrochlorothiazide 20 mg-12.5 mg Tab RxNorm: 197 886 2 Tablet(s) PO QAM No Start Date 10/12/2010 Inactive Zofran ODT 4 mg disintegrating tablet RxNorm: 254356 1 Tablet(s) PO Q6H as needed for nausea No Start Date 09/14/2016 Inactive Wellbutrin XL 300 mg 24 hr Tab RxNorm: 827711 1 Tablet(s) PO QD No Start Date 02/02/2010 Inactive alprazolam 0.25 mg tablet RxNorm: 275431 1 Tablet(s) PO prior t o flight No Start Date 05/24/2017 Inactive hydrocodone-acetaminophen 5 mg-500 mg Tab RxNorm: 007385 1-2 Tablet(s) PO Q4H as needed for pain No Start Date 12/02/2010 Inactive Toprol XL 100 mg 24 hr Tab RxNorm: 625522 1 Tablet(s) PO QD No Star t Date 10/14/2013 Inactive Celebrex 200 mg capsule RxNorm: 471801 1 Capsule(s) PO QD No Start Date 05/22/2017 Inactive Flexeril 10 mg tablet RxNorm: 338220 1 Tablet(s) PO TID No Start Da te 04/02/2019 Inactive scopolamine 1 mg over 3 days transdermal patch RxNorm: 49099 2 1 TD take off in 72 hours. No Start Date 07/31/2017 Inactive OneTouch Ultra Test strips RxNorm: Test blood sugar daily No S tart Date 04/23/2018 Inactive Medrol (Dale) 4 mg tablets in a dose pack RxNorm: 332545 Tablet(s) PO As directed No Start Date 01/15/2014 Inactive Coumadin 5 mg Tab RxNorm: 820766 1 Tablet(s) PO QD No Start Date 06/19 Inactive Pepcid 40 mg Tab RxNorm: 206246 1 Tablet(s) PO QD No Start Date 06/23 Inactive prednisone 10 mg Tab RxNorm: 642212 1 Tablet(s) PO BID No Start Date 06/23/2010 Inactive spironolactone 25 mg tablet RxNorm: 762019 1 Tablet(s) PO QAM No St art Date 09/26/2018 Inactive scopolamine 1.5 mg 72 hr Transderm Patch RxNorm: 669072 TD Apply 1 patch behind ear every 72 hours, replace after 3 days. No Start Date 11/07/2012 Inacti ve azithromycin 250 mg Tab RxNorm: 551722 Tablet(s) PO 2 t abs on day one and one tab on days 2-5. (antibiotic) No Start Date 10/10/2011 Inactive Medrol (Dale) 4 mg Tabs in a Dose Pack RxNorm: 211840 1 Tablet(s) PO as directed. (steroid pack) No Start Date 10/10/2011 Inactive Lovenox 40 mg/0.4 mL subcutaneous syringe RxNorm: 511475 40 Mil ligram(s) SQ QD No Start Date 05/04/2018 Inactive Celebrex 200 mg capsule RxNorm: 401980 1 Capsule(s) PO BID as n eeded for pain No Start Date 01/13/2017 Inactive warfarin 1 mg tablet RxNorm: 268859 1 Tablet(s) PO As directed on Tue and No Start Date 08/10/2012 Inactive cefuroxime axetil 500 mg Tab RxNorm: 013726 1 Tablet(s) PO BID No S tart Date 06/13/2011 Inactive Lovenox 40 mg/0.4 mL subcutaneous syringe RxNorm: 769986 40 Mil ligram(s) SQ QD No Start Date 01/26/2018 Inactive Coumadin 5 mg tablet RxNorm: 974489 1 Tablet(s) PO QD No Start Date 0 08/13/2013 Inactive Medrol (Dale) 4 mg tablets in a dose pack RxNorm: 413135 Tablet(s) PO as directed No Start Date 01/17/2014 Inactive Coumadin 6 mg tablet RxNorm: 079451 1 Tablet(s) PO QD No Start Date 0 06/20/2016 Inactive warfarin 5 mg tablet RxNorm: 266907 1 Tablet(s) PO QD No Start Date 0 12/02/2011 Inactive Medrol (Dale) 4 mg Tabs in a Dose Pack RxNorm: 507214 Tablet(s) PO as directed No Start Date 06/23/2010 Inactive Flonase 50 mcg/actuation nasal spray,suspension RxNorm: 8963 23 2 [place] NASAL BID No Start Date 12/05/2014 Inactive Pepcid 20 mg tablet RxNorm: 913327 1 Tablet(s) PO BID as needed No Start Date 11/02/2012 Inactive spironolactone 25 mg tablet RxNorm: 968684 1 Tablet(s) PO QAM No St art Date 04/02/2019 Inactive Medication Administered No Medication Administered data Immunizations No Immunization data Results Observation Observation Code Item Item Code Result Date S ervice Location MICROALBUMIN URINE RANDOM 59021 CREAT MG/D 139 MG/DL Unknown MICROALBUMIN URINE RANDOM 31738 CRE/100 1.39 G/L 12/20 Unknown Procedures Procedure Codes Date URINALYSIS NONAUTO W/O SCOPE CPT-4: 14486 09/27/2018 URINE CULTURE/ COLONY COUNT CPT-4: 70295 09/27/2018 URINALYSIS NONAUTO W/O SCOPE CPT-4: 04533 10/13/2017 URINE CULTURE/ COLONY COUNT CPT-4: 27523 10/13/2017 STREP A ASSAY W/OPTIC CPT-4: 11661 06/21/2016 STREP A ASSAY W/OPTIC CPT-4: 99140 06/24/2014 THER/PROPH/DIAG INJ SC/IM CPT-4: 17764 03/22/2014 METHYLPREDNISOLONE 40 MG INJ CPT-4: J1030 03/22/2014 TRIAMCINOLONE ACET INJ NOS CPT-4: J3301 03/22/2014 URINALYSIS NONAUTO W/O SCOPE CPT-4: 39206 10/19/2013 URINE CULTURE/ COLONY COUNT CPT-4: 55602 10/19/2013 CEFTRIAXONE SODIUM INJECTION CPT-4: J0696 03/02/2013 THER/PROPH/DIAG INJ SC/IM CPT-4: 51256 03/02/2013 CEFTRIAXONE SODIUM INJECTION CPT-4: J0696 03/01/2013 THER/PROPH/DIAG INJ SC/IM CPT-4: 09121 03/01/2013 THER/PROPH/DIAG INJ SC/IM CPT-4: 93765 03/01/2013 METHYLPREDNISOLONE 40 MG INJ CPT-4: J1030 03/01/2013 TRIAMCINOLONE ACET INJ NOS CPT-4: J3301 03/01/2013 MICROALBUMIN QUANTITATIVE CPT-4: 16194 01/11/2013 URINE CULTURE/ COLONY COUNT CPT-4: 68371 05/04/2012 URINALYSIS NONAUTO W/O SCOPE CPT-4: 51246 05/04/2012 URINE CULTURE/ COLONY COUNT CPT-4: 59357 05/29/2010 TRIAMCINOLONE ACET INJ NOS CPT-4: J3301 05/20/2010 METHYLPREDNISOLONE 40 MG INJ CPT-4: J1030 05/20/2010 THER/PROPH/DIAG INJ SC/IM CPT-4: 07982 05/20/2010 Vital Signs Date Vital 05/09/2019 Blood [...] 1: 134/78 Code: 8480-6 BMI: 35.1 Code: 58342-5 Heart Rate 1: 76 bpm Height: 5'9" Respiratory Rate: 20 bpm Temperature: 36 .6 (C) / 97.8 (F) Weight: 238 lbs 12/27/2017 Blood Pressure 1: 126/64 Code: 8480-6 BMI: 34.7 Code: 85254-5 Heart Rate 1: 72 bpm Height: 5'9" Respiratory Rate: 20 bpm Temperature: 36 .8 (C) / 98.2 (F) Weight: 235 lbs 10/12/2017 Blood Pressure 1: 142/80 Code: 8480-6 BMI: 35.1 Code: 75283-4 Heart Rate 1: 98 bpm Height: 5'9" Respiratory Rate: 22 bpm SpO2: 100% Tempera ture: 36.5 (C) / 97.7 (F) Weight: 238 lbs 09/16/2017 Blood Pressure 1: 136/82 Code: 8480-6 BMI: 34.1 Code: 51308-2 Heart Rate 1: 82 bpm Height: 5'9" Respiratory Rate: 18 bpm SpO2: 96% Tempera ture: 36.3 (C) / 97.3 (F) Weight: 231 lbs 05/25/2017 Blood Pressure 1: 122/82 Code: 8480-6 BMI: 32.3 Code: 51312-0 Heart Rate 1: 116 bpm Height: 5'9" Respiratory Rate: 20 bpm SpO2: 98% Tempera ture: 35.6 (C) / 96.1 (F) Weight: 219 lbs 01/03/2017 Blood Pressure 1: 126/78 Code: 8480-6 BMI: 33.4 Code: 29624-8 Heart Rate 1: 72 bpm Height: 5'9" Respiratory Rate: 20 bpm Temperature: 36 .8 (C) / 98.2 (F) Weight: 226 lbs 09/23/2016 Blood Pressure 1: 126/82 Code: 8480-6 BMI: 33.8 Code: 16843-1 Heart Rate 1: 80 bpm Height: 5'9" Respiratory Rate: 20 bpm SpO2: 97% Tempera ture: 36.8 (C) / 98.2 (F) Weight: 229 lbs 09/03/2016 Blood Pressure 1: 188/64 Code: 8480-6 Bl ood Pressure 2: 166/92 Code: 8480-6 BMI: 34.4 Code: 94449-9 Heart Rate 1: 66 bpm Height: 5'9" Res piratory Rate: 20 bpm SpO2: 98% Temperature: 35.7 (C) / 96.2 (F) Weight: 233 lbs 07/08/2016 Blood Pressure 1: 134/82 Code: 8480-6 Heart Rate 1: 64 bpm Height: 5'9" Respiratory Rate: 20 bpm SpO2: 97% Temperature: 36.6 (C) / 97.8 (F) Weight: 06/21/2016 Blood Pressure 1: 112/68 Code: 8480-6 BMI: 33.8 Code: 82180-6 Heart Rate 1: 64 bpm Height: 5'9" Respiratory Rate: 20 bpm SpO2: 95% Tempera ture: 36.3 (C) / 97.3 (F) Weight: 229 lbs 02/23/2016 Blood Pressure 1: 128/78 Code: 8480-6 BMI: 33.4 Code: 97236-7 Heart Rate 1: 74 bpm Height: 5'9" [...] 1: 122/80 Code: 8480-6 BMI: 32.2 Code: 16700-5 Heart Rate 1: 80 bpm Height: 5'9" Respiratory Rate: 20 bpm Temperature: 37 .0 (C) / 98.6 (F) Weight: 218 lbs 08/09/2014 Blood Pressure 1: 132/84 Code: 8480-6 BMI: 33.1 Code: 56267-2 Heart Rate 1: 72 bpm Height: 5'9" Respiratory Rate: 20 bpm Temperature: 36 .7 (C) / 98.0 (F) Weight: 224 lbs 06/24/2014 Blood Pressure 1: 132/80 Code: 8480-6 BMI: 32.8 Code: 52511-0 Heart Rate 1: 68 bpm Height: 5'9" Respiratory Rate: 20 bpm Temperature: 36 .4 (C) / 97.6 (F) Weight: 222 lbs 03/22/2014 Blood Pressure 1: 128/84 Code: 8480-6 BMI: 32.5 Code: 46097-9 Heart Rate 1: 78 bpm Height: 5'9" Respiratory Rate: 22 bpm Temperature: 36 .0 (C) / 96.8 (F) Weight: 220 lbs 03/05/2014 Blood Pressure 1: 124/78 Code: 8480-6 BMI: 31.9 Code: 79018-9 Heart Rate 1: 82 bpm Height: 5'9" Respiratory Rate: 20 bpm Temperature: 35 .8 (C) / 96.4 (F) Weight: 216 lbs 01/16/2014 Blood Pressure 1: 116/68 Code: 8480-6 BMI: 33.8 Code: 74815-0 Heart Rate 1: 72 bpm Height: 5'7" Respiratory Rate: 20 bpm Temperature: 36 .6 (C) / 97.9 (F) Weight: 216 lbs 05/10/2013 Blood Pressure 1: 124/86 Code: 8480-6 BMI: 34.3 Code: 74780-9 Heart Rate 1: 84 bpm Height: 5'7" [...] 1: 116/84 Code: 8480-6 BMI: 33.1 Code: 77704-5 Heart Rate 1: 64 bpm Height: 5'9" Respiratory Rate: 20 bpm Temperature: 36 .4 (C) / 97.6 (F) Weight: 224 lbs 01/11/2013 Blood Pressure 1: 126/84 Code: 8480-6 BMI: 35.3 Code: 67318-5 Heart Rate 1: 68 bpm Height: 5'9" Respiratory Rate: 20 bpm Temperature: 36 .7 (C) / 98.1 (F) Weight: 239 lbs 11/03/2012 Blood Pressure 1: 104 Code: 8480-6 BMI: 34.4 Code: 71777-7 Heart Rate 1: 72 bpm Height: 5'9" Respiratory Rate: 20 bpm Temperature: 36 .8 (C) / 98.3 (F) Weight: 233 lbs 05/04/2012 Blood Pressure 1: 124 Code: 8480-6 BMI: 33.7 Code: 65375-5 Heart Rate 1: 84 bpm Height: 5'9" Temperature: 36.3 (C) / 97.3 (F) Weight: 228 lbs 10/11/2011 Blood Pressure 1: 11070 Code: 8480-6 BMI: 33.7 Code: 05597-8 Heart Rate 1: 64 bpm Height: 5'9" Temperature: 36.8 (C) / 98.3 (F) Weight: 228 lbs 06/23/2011 Blood Pressure 1: 114 Code: 8480-6 BMI: 33.4 Code: 23869-8 Heart Rate 1: 80 bpm Height: 5'9" Respiratory Rate: 20 bpm Temperature: 36 .7 (C) / 98.0 (F) Weight: 226 lbs 06/14/2011 Blood Pressure 1: 118 Code: 8480-6 BMI: 33.4 Code: 27945-8 Heart Rate 1: 80 bpm Height: 5'9" [...] 1: 126/82 Code: 8480-6 BMI: 32.6 Code: 79101-7 Heart Rate 1: 68 bpm Height: 5'9" [...] 1: 140/92 Code: 8480-6 BMI: 31.3 Code: 45196-5 Heart Rate 1: 60 bpm Height: 5'10" [...] upper back on 08/13/16 while camping around [place], [place]. Patient states is tender around tick [...] follow up 06/24/2010 hospital fwup, still on Sept DS and Levaquin ~generic 06/08/2010 Has positive [...] 01/22/2010 Encounters Encounter Performer Location Codes Date ([id number]) OFFICE/OUTPATIENT VISIT EST Diagnosis: Type 2 diabetes mellitus without complications[ICD10: E11.9] Jessica GEE DO [facility] CPT-4: 20939 05/09/2019 ([id number]) OFFICE/OUTPATIENT VISIT EST Diagnosis: Type 2 diabetes mellitus without complications[ICD10: E11.9] Diagnosis: Essential hypertension[ICD10: I10] Jessica GEE DO [facility] CPT-4: 34556 04/03/2019 ([id number]) OFFICE/OUTPATIENT VISIT EST Diagnosis: Gastro-esophageal reflux disease without esophagitis[ICD10: K21.9] Diagnosis: Urinary tract infection, site not specified[ICD10: N39.0] Diagnosis: Ventral hernia without obstruction or gangrene[ICD10: K43.9] Jessica GEE DO [facility] CPT-4: 85163 09/27/2018 ([id number]) OFFICE/OUTPATIENT VISIT EST Diagnosis: Essential (primary) hypertension[ICD10: I10] Diagnosis: Type 2 diabetes mellitus without complications[ICD10: E11.9] Diagnosis: Carpal tunnel syndrome, right upper limb[ICD10: G56.01] Diagnosis: Primary insomnia[ICD10: F51.01] Jessica GEE DO [facility] CPT-4: 25739 04/24/2018 ([id number]) OFFICE/OUTPATIENT VISIT EST Diagnosis: Type 2 diabetes mellitus without complications[ICD10: E11.9] Diagnosis: Mixed hyperlipidemia[ICD10: E78.2] Diagnosis: Essential (primary) hypertension[ICD10: I10] Diagnosis: Pain in unspecified joint[ICD10: M25.50] Jessica GEE DO [facility] CPT-4: 01568 12/27/2017 ([id number]) NURSE/OUTPATIENT VISIT EST Diagnosis: Hematuria, unspecified[ICD10: R31.9] Jessica GEE DO [facility] CPT-4: 75072 10/13/2017 ([id number]) OFFICE/OUTPATIENT VISIT EST Diagnosis: Pleurodynia[ICD10: R07.81] Sofi Mp [facility] CPT-[facility]: 44810 10/12/2017 ([id number]) OFFICE/OUTPATIENT VISIT EST Diagnosis: Acute bronchitis, unspecified[ICD10: J20.9] Sofi GEE [facility] CPT-4: 26094 09/16/2017 ([id number]) OFFICE/OUTPATIENT VISIT EST Diagnosis: Other specified postprocedural states[ICD10: Z98.890] Diagnosis: Cellulitis of neck[ICD10: L03.221] Diagnosis: Tachycardia, unspecified[ICD10: R00.0] Jessica GEE [facility] CPT-4: 31531 05/25/2017 ([id number]) OFFICE/OUTPATIENT VISIT EST Diagnosis: Lumbago with sciatica, right side[ICD10: M54.41] Diagnosis: Pain in unspecified joint[ICD10: M25.50] [facility] 82851 01/03/2017 ([id number]) OFFICE/OUTPATIENT VISIT EST Diagnosis: Bitten or stung by nonvenomous insect and other nonvenomous arthropods, subsequent encounter[ICD10: W57.XXXD] Diagnosis: Essential (primary) hypertension[ICD10: I10] Diagnosis: Low back pain[ICD10: M54.5] Jessica CARBAJAL [facility] CPT-4: 63641 09/23/2016 OFFICE/OUTPATIENT VISIT EST Diagnosis: Bitten or stung by nonvenomous insect and other nonvenomous arthropods, initial encounter[ICD10: W57.XXXA] Diagnosis: Essential (primary) hypertension[ICD10: I10] Kaitlynn Mosley JESSICA GEE [facility] CPT-4: 21118 09/03/2016 ([id number]) OFFICE/OUTPATIENT VISIT EST Diagnosis: Low back pain[ICD10: M54.5] Diagnosis: Radiculopathy, lumbosacral region[ICD10: M54.17] [facility] 04220 07/08/2016 ([id number]) OFFICE/OUTPATIENT VISIT EST Diagnosis: Acute pharyngitis, unspecified[ICD10: J02.9] Jessica GEE [facility] CPT-4: 71943 06/21/2016 ([id number]) OFFICE/OUTPATIENT VISIT EST Diagnosis: Cough[ICD10: R05] Diagnosis: Fever, unspecified[ICD10: R50.9] Janiya GEE [facility] CPT-4: 01896 02/23/2016 ([id number]) OFFICE/OUTPATIENT VISIT EST Diagnosis: Acute sinusitis, unspecified[ICD10: J01.90] Jessica GEE [facility] CPT-4: 25116 02/16/2016 OFFICE/OUTPATIENT VISIT EST Diagnosis: Type 2 diabetes mellitus without complications[ICD10: E11.9] Diagnosis: Gastro-esophageal reflux disease without esophagitis[ICD10: K21.9] Diagnosis: Ventral hernia without obstruction or gangrene[ICD10: K43.9] [facility]: 96070 02/11/2015 OFFICE/OUTPATIENT VISIT EST 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] Diagnosis: Essential (primary) hypertension[ICD10: I10] Suki GEE [facility] CPT-4: 32186 01/28/2015 OFFICE/OUTPATIENT VISIT EST Diagnosis: SINUSITIS, ACUTE[ICD9: 461.9] Kaitlynn MaloneyMyrna JESSICA GEE [facility] CPT-4: 83865 12/06/2014 ([id number]) OFFICE/OUTPATIENT VISIT EST Diagnosis: SINUSITIS, ACUTE[ICD9: 461.9] Kaitlynn PerezAnnie JESSICA GEE [facility] CPT-4: 04888 08/09/2014 ([id number]) OFFICE/OUTPATIENT VISIT EST Diagnosis: TONSILLITIS, ACUTE[ICD9: 463] Suki GEE [facility] CPT-4: 01601 06/24/2014 OFFICE/OUTPATIENT VISIT EST Diagnosis: SINUSITIS, ACUTE[ICD9: 461.9] Diagnosis: EUSTACHIAN TUBE DYSFUNCTION[ICD9: 381.81] Diagnosis: COUGH[ICD9: 786.2] Suki GEE DO [facility] CPT-4: 87376 03/22/2014 OFFICE/OUTPATIENT VISIT EST Diagnosis: Elbow pain, right[ICD9: 719.42] Suki GEE DO [facility] CPT-4: 44129 03/05/2014 OFFICE/OUTPATIENT VISIT EST Diagnosis: SINUSITIS, ACUTE[ICD9: 461.9] Jessica GEE DO [facility] CPT-4: 85596 01/16/2014 ([id number]) OFFICE/OUTPATIENT VISIT EST Diagnosis: GROSS HEMATURIA[ICD9: 599.71] Jessica GEE DO [facility] CPT-4: 27345 10/19/2013 ([id number]) OFFICE/OUTPATIENT VISIT EST Diagnosis: DM W/O COMPLICATION TYPE II[ICD9: 250.00] Diagnosis: HYPERLIPIDEMIA NEC/NOS[ICD9: 272.4] Jessica GEE [facility] CPT-4: 25049 05/10/2013 ([id number]) OFFICE/OUTPATIENT VISIT EST Diagnosis: SINUSITIS, ACUTE[ICD9: 461.9] Jessica GEE DO [facility] CPT-4: 32210 04/17/2013 OFFICE/OUTPATIENT VISIT EST Diagnosis: OTITIS MEDIA NOS[ICD9: 382.9] Diagnosis: COUGH[ICD9: 786.2] Suki GEE DO [facility] CPT-4: 41335 03/05/2013 OFFICE/OUTPATIENT VISIT EST Diagnosis: COUGH[ICD9: 786.2] Diagnosis: BRONCHITIS, ACUTE[ICD9: 466.0] Suki GEE DO [facility] CPT-4: 79234 03/02/2013 OFFICE/OUTPATIENT VISIT EST Diagnosis: COUGH[ICD9: 786.2] Diagnosis: OTITIS MEDIA NOS[ICD9: 382.9] Diagnosis: BRONCHITIS, ACUTE[ICD9: 466.0] Suki GEE DO [facility] CPT-4: 25501 03/01/2013 OFFICE/OUTPATIENT VISIT EST Diagnosis: DM W/O COMPLICATION TYPE II, UNCONTROLLED[ICD9: 250.02] [facility] 37760 02/22/2013 ([id number]) PREV VISIT EST AGE 40-64 Diagnosis: DM W/O COMPLICATION TYPE II, UNCONTROLLED[ICD9: 250.02] Diagnosis: HYPERTENSION[ICD9: 401.9] Diagnosis: ROUTINE MEDICAL EXAM[ICD9: V70.0] Jessica SMITHLIN Lance [facility]: 43118 01/11/2013 OFFICE/OUTPATIENT VISIT EST Diagnosis: HZ (HERPES ZOSTER)[ICD9: 053.9] Kaitlynn Mosley JESSICA Moinca [facility] CPT-4: 82416 11/03/2012 OFFICE/OUTPATIENT VISIT EST Diagnosis: URINARY TRACT INFECTION[ICD9: 599.0] Diagnosis: GERD[ICD9: 530.81] Diagnosis: PHARYNGITIS, ACUTE[ICD9: 462] [facility] [place] [facility]: 76959 05/04/2012 OFFICE/OUTPATIENT VISIT EST Diagnosis: COUGH[ICD9: 786.2] Diagnosis: SINUSITIS, ACUTE[ICD9: 461.9] Diagnosis: PHARYNGITIS, ACUTE[ICD9: 462] Jessica [facility]len [facility] [place] [facility]: 44152 10/11/2011 OFFICE/OUTPATIENT VISIT EST Diagnosis: COUGH[ICD9: 786.2] Diagnosis: SINUSITIS, ACUTE[ICD9: 461.9] Diagnosis: PHARYNGITIS, ACUTE[ICD9: 462] Diagnosis: ALLERGIC RHINITIS[ICD9: 477.9] Xiomara Rodriguez JESSICA [facility]inga [facility] CPT-[facility]: 77565 06/23/2011 OFFICE/OUTPATIENT VISIT EST Diagnosis: COUGH[ICD9: 786.2] Diagnosis: SINUSITIS, ACUTE[ICD9: 461.9] Diagnosis: PHARYNGITIS, ACUTE[ICD9: 462] Jessica Marlen Anderson [facility] CPT-4: 41720 06/14/2011 OFFICE/OUTPATIENT VISIT EST Diagnosis: SINUSITIS, ACUTE[ICD9: 461.9] Diagnosis: PHARYNGITIS, ACUTE[ICD9: 462] Jessica Anderson [facility] CPT-4: 61175 12/02/2010 OFFICE/OUTPATIENT VISIT EST Diagnosis: HYPERTENSION[ICD9: 401.9] Diagnosis: HYPERLIPIDEMIA NEC/NOS[ICD9: 272.4] Diagnosis: DERMATITIS NOS[ICD9: 692.9] Jessica MENDENHALLQUELINE S. [facility] CPT-4: 39156 11/12/2010 OFFICE/OUTPATIENT VISIT EST Jessica Orr. [facility] CPT- 4: 46548 10/13/2010 ([id number]) OFFICE/OUTPATIENT VISIT EST Jessica HARKINS [facility]JO[facility] CPT-4: 97836 06/24/2010 ([id number]) OFFICE/OUTPATIENT VISIT EST Jessica HARKINS UELINE [facility] CPT-4: 17149 06/08/2010 ([id number]) OFFICE/OUTPATIENT VISIT EST Xiomara Rodriguez JESSICA S . [facility] CPT-4: 41438 05/20/2010 ([id number]) OFFICE/OUTPATIENT VISIT EST Jessica HARKINS UJOANNA [facility] CPT-4: 38894 04/30/2010 ([id number]) OFFICE/OUTPATIENT VISIT, EST Jessica MANZANO S. [facility] [facility] CPT-4: 43455 01/22/2010 Plan of Care Planned Activity Notes Codes Status Date Visit Diagnosis Plan: Type 2 diabetes mellitus without complications Discussion: Increase Jardience to 25mg daily Acccuchecks daily Check CMP, HbA1C in 2mos then fwup ICD-9 : 250.00 ICD-10 : E11.9 05/09/2019 Appointment: Jessica Gee [facility]el[phone] FO[facility] UP 05/09/2019 Patient Education: [employer]ardiance Patient Savings Message Alert Completed 05/09/2019 Visit Diagnosis Plan: Type 2 diabetes mellitus without complications Discussion: Lab discussed Add jardience 10mg po q AM Hold spironolactone Accuchecks daily alternating times Fwup 1 month with BS readings Notify if any signs of yeast infection ICD-9 : 250.00 ICD-10 : E11.9 04/03/2019 Appointment: Jessica Geetel: [address] [place] [address] FOLLOW UP 04/03/2019 Visit Diagnosis Plan: Urinary [...] : K21.9 09/27/2018 Appointment: Jessica Gee WPtel: [address] [place], [place] [id number] ACUTE ILLNESS 09/27/2018 Visit Diagnosis Plan: Carpal [...] : F51.01 04/24/2018 Appointment: Jessica Gee WPtel: [facility] ACUTE ILLNESS 04/24/2018 Patient Education: celecoxib- [employer] [id number] Completed 04/24/2018 Patient Education: amitriptyline- [employer] [id number] Completed 04/24/2018 Visit Diagnosis Plan: Type 2 [...] M25.50 12/27/2017 Appointment: Jessica Gee WPtel: [phone] [facility] FOLLOW UP 12/27/2017 Patient Education: Patient Medication Summary Completed 12/27/2017 Patient Education: Patient Medication Summary Completed 12/19/2017 Care Plan: MAMMOGRAM BOTH BREASTS LOINC : 29162-4 Pending 12/19/2017 Patient Education: Patient Medication Summary Completed 12/16/2017 Care Plan: ASSAY THYROID STIM HORMONE Pen ding 12/16/2017 Care Plan: ASSAY OF FREE THYROXINE Pendin g 12/16/2017 Care Plan: LIPID PANEL LOINC : 51336-9 Pending 12/16/2017 Care Plan: CBC Pending 12/16/2017 Care Plan: A1C HPLC LOINC : 54901-5 Pending 12/16/2017 Patient Education: Patient Medication Summary Completed 10/17/2017 Care Plan: CT ANGIOGRAPHY CHEST LOINC : 67920-1 Pending 10/17/2017 Patient Education: Patient Medication Summary Completed 10/14/2017 Care Plan: CT ANGIOGRAPHY CHEST LOINC : 01938-0 Pending 10/14/2017 Appointment: Jessica Gee WPtel: [phone] [facility] [facility] 10/13/2017 Patient Education: Patient Medication Summary Completed 10/13/2017 Visit Diagnosis Plan: Pleurodynia Discussion: patient sent for stat cxray. medrol dose pack prescribed for symptom management. instructed to perform deep breathing exercises at home to prevent atelectasis or pneumonia. will notify pa kevin of results of xray and order additional tests/medications as needed. ICD-9 : 786.50 ICD-10 : R07.81 10/12/2017 Appointment: Sofi Gresham [address] [place] [address] ACUTE ILLNESS 10/12/2017 Patient Education: Patient Medication [...] ICD-10 : J20.9 09/16/2017 Appointment: Sofi Gresham [address] [place] [address] ACUTE ILLNESS 09/16/2017 Patient Education: Patient Medication Summary Completed 09/16/2017 Appointment: Jessica Gee WPtel: [phone] [facility] US CANCELED 08/10/2017 Visit Diagnosis Plan: Cellulitis [...] R00.0 05/25/2017 Appointment: Jessica Gee WPtel: [phone] [facility] [place] FOLLOW UP 05/25/2017 Patient Education: Patient Medication Summary Completed 05/25/2017 Visit Diagnosis Plan: Lumbago with sciatica, right britton e Discussion: Check arthritis panel Patient awaiting neck surgery before surgery will consider back surgery ICD-9 : 724.2 ICD-10 : M54.41 01/03/2017 Appointment: Jessica Gee WPtel: [address] [place] [address] ACUTE ILLNESS 01/03/2017 Patient Education: Patient Medication Summary Completed 01/03/2017 Patient Education: Patient Medication Summary Completed 12/16/2016 Care Plan: MAMMOGRAM SCREENING LOINC : 2 6347-5 Pending 12/16/2016 Patient Education: Patient Medication Summary Completed 10/07/2016 Care Plan: MRI LUMBAR SPINE W/O & W/DYE LOINC : 45935-8 Pending 10/07/2016 Visit Diagnosis Plan: Essential (primary) [...] : W57.XXXD 09/23/2016 Appointment: Jessica Gee WPtel: [address] [place] [address] /5 confirmed WORK IN 09/23/2016 Patient Education: Patient Medication Summary Completed 09/23/2016 Visit Plan: Tick panel at [facility] Increa se spironolactone to 2 po am (New Rx sent) Take B/P at home/work and also come to office next week for recheck Will await lab results before starting any antibiotic 09/03/2016 Appointment: Kaitlynn Mosley WPtel: [facility] ACUTE ILLNESS 09/03/2016 Patient Education: Patient Medication Summary Completed 09/03/2016 Visit Diagnosis Plan: Low back pain Discussion: Celebr ex BID PT Continue stretches at home L/S xray Follow Up: 1 months ICD-9 : 724.2 ICD-10 : M54.5 07/08/2016 Appointment: Jessica Gee WPtel: [address] [place] [address] ACUTE ILLNESS 07/08/2016 Patient Education: Patient Medication Summary Completed 07/08/2016 Care Plan: X-RAY EXAM L-S SPINE 2/3 VWS LOINC : 65839-4 Pending 07/08/2016 Visit Plan: Supportive care. Rest, Fluid s, Tylenol/Motrin prn fever or bodyaches. Notify if worsening symptoms.New toothebrush in 5 days 06/21/2016 Visit NOS Plan: Plan Notes: Supportive care. Rest, Fluids... 06/21/2016 Visit Diagnosis Plan: Acute pharyngitis, unspecified D iscussion: Strep Negative Supportive Care May use zyrtec 10mg q HS ICD-9 : 462 ICD-10 : J02.9 06/21/2016 Appointment: Jessica Gee WPtel: [address] [place] [address] ACUTE ILLNESS 06/21/2016 Patient Education: Patient Medication Summary Completed 06/21/2016 Visit Plan: No pulseox last week to comp are to today, but she does sound diminished today Studies as above ordered Continue cefdinir until results received Increase albuterol treatments to q4-6hrs PRN Continue supportive care 02/23/2016 Appointment: Janiya Gregorio [address] [place] [address] ACUTE ILLNESS 02/23/2016 Patient Education: Patient Medication Summary Completed 02/23/2016 Care Plan: CHEST X-RAY 2VW FRONTAL&LATL LOINC : 00621-0 Pending 02/23/2016 Visit Plan: Saline nasal flushes prn. Ty lenol/Motrin prn headache. Notify if persists/symptoms worsening. 02/16/2016 Appointment: Jessica Gee WPtel: [address] [place] [address] ACUTE ILLNESS 02/16/2016 Patient Education: Patient Medication Summary Completed 02/16/2016 Visit Plan: Discussed labs Continue Topr ol at 200 mg PO daily Increase Aciphex to BID Notify if increase of Aciphex does not give relief. Repeat PT/INR in 2 weeks. 02/11/2015 Appointment: Suki Barahona WPtel: [address] [place], [place] [id number] 02/10 confirmed ~sl FOLLOW UP 02/11/2015 Patient Education: Patient Medication Summary Completed 02/11/2015 Patient Education: Patient Medication Summary Completed 02/06/2015 Care Plan: POC PROTIME/INR LOINC : 31329 -6 Pending 02/06/2015 Visit Plan: Increase Toprol XL 200 mg to one full tablet daily (is currently taking only 1/2 tablet) To for EKG today Monitor daily BP Notify of any changes- increased numbness, weakness, headache etc. 01/28/2015 Appointment: Suki Barahona WPtel: [address] [place] [address] ACUTE ILLNESS 01/28/2015 Patient Education: Patient Medication Summary Completed 01/28/2015 Visit Plan: ERx Amoxicillin and Flonase Nasal saline, humidified air Facial heat or cold packs for comfort Increase fluids/rest Discussed s/s of worsening, go to over weekend if these occur. 12/06/2014 Appointment: Kaitlynn Mosley WPtel: [address] [place], [place] [id number] ACUTE ILLNESS 12/06/2014 Patient Education: Patient Medication Summary Completed 12/06/2014 Appointment: Kaitlynn Mosley WPtel: [address] [place], [place] [id number] ACUTE ILLNESS 08/09/2014 Patient Education: Patient Medication Summary Completed 08/09/2014 Appointment: Suki Barahona WPtel: [address] [place], [place] [phone] ACUTE ILLNESS 06/24/2014 Patient Education: Patient Medication Summary Completed 06/24/2014 Appointment: Suki Barahona WPtel: [address] [place] [address] ACUTE ILLNESS 03/22/2014 Patient Education: Patient Medication Summary Completed 03/22/2014 Patient Education: [employer] - Antibi otics, Analgesics 18+, Oral Contraceptives F 18+ Completed 03/22/2014 Appointment: Suki Barahona WPtel: [address] [place] [address] FOLLOW UP 03/05/2014 Patient Education: Patient Medication Summary Completed 03/05/2014 Visit Plan: Saline nasal flushes prn. Ty lenol/Motrin prn headache. Notify if persists/symptoms worsening. Restart flonase 01/16/2014 Appointment: Jessica Gee WPtel: [address] [place] [address] ACUTE ILLNESS 01/16/2014 Patient Education: Patient Medication Summary Completed 01/16/2014 Appointment: Jessica Gee WPtel: [address] [place] [address] 10/19/2013 Patient Education: Patient Medication Summary Completed 10/19/2013 Appointment: Jessica Gee WPtel: [address] [place] [address] 08/08 patient canceled appt and said will call back to [facility] evelin FOLLOW UP 08/09/2013 Visit Plan: Increase Coumadin to 6mg M-F and stay on 5mg Sat, Sun Add lipids to labs Check PT/INR in 3wks Continue metfromin at current dose and accuchecks 05/10/2013 Appointment: Jessica Gee WPtel: [address] [place] [address] 05/09 FOLLOW UP 05/10/2013 Patient Education: Patient Medication Summary Completed 05/10/2013 Visit Plan: Saline nasal flushes prn. Ty lenol/Motrin prn headache. Notify if persists/symptoms worsening. 04/17/2013 Appointment: Jessica Gee WPtel: [address] [place] [address] ACUTE ILLNESS 04/17/2013 Patient Education: Patient Medication Summary Completed 04/17/2013 Appointment: Suki Barahona WPtel: [address] [place] [address] FOLLOW UP 03/05/2013 Patient Education: Patient Medication Summary Completed 03/05/2013 Appointment: Suki Barahona WPtel: [address] [place] [address] FOLLOW UP 03/02/2013 Patient Education: Patient Medication Summary Completed 03/02/2013 Appointment: Suki Barahona WPtel: [address] [place] [address] ACUTE ILLNESS 03/01/2013 Patient Education: Patient Medication Summary Completed 03/01/2013 Visit Plan: Continue metformin and accuc hecks Add fish oil 1gram daily Check HbA1C, CMP in 2mos then fwup 02/22/2013 Appointment: Jessica Gee WPtel: [address] [place] [address] 02/21 [facility] FOLLOW UP 02/22/2013 Patient Education: Patient Medication Summary Completed 02/22/2013 Visit Plan: Start Metformin Start Accuch ecks daily alternating times Will go for dilated eye exam once BS more stabilized Diabetic foot care discussed Diabetic diet info given 01/11/2013 Appointment: Jessica Gee WPtel: [address] [place] [address] FOLLOW UP 01/11/2013 Patient Education: Patient Medication Summary Completed 01/11/2013 Appointment: Kaitlynn Mosley WPtel: [address] [place] [address] ACUTE ILLNESS 11/03/2012 Patient Education: Patient Medication Summary Completed 11/03/2012 Appointment: Xiomara Rodriguez WPtel: [address] [place] [address] ACUTE ILLNESS 05/04/2012 Patient Education: Patient Medication Summary Completed 05/04/2012 Visit Plan: pt reports that she always g ets yeast infections. Discussed that the antifungal can cause problems/increased bleeding with Coumdin. Pt. will start with probiotics and only take the Diflucan if needed. Cefdinir. 10/11/2011 Appointment: Xiomara Rodriguez WPtel: [address] [place] [address] ACUTE ILLNESS 10/11/2011 Patient Education: Patient Medication Summary Completed 10/11/2011 Appointment: Xiomara Rodriguez WPtel: [address] [place] [address] FOLLOW UP 06/23/2011 Patient Education: Patient Medication Summary Completed 06/23/2011 Visit Plan: Will prescribe an antibiotic and diflucan. Pt. reports that she frequently gets yeast infection. Discussed that she will notify if any symptoms persist. Pt. reports that her relatives have recently been hospitalized with pneumonia. 06/14/2011 Appointment: Xiomara Rodriguez WPtel: [address] [place] [address] ACUTE ILLNESS 06/14/2011 Patient Education: Patient Medication Summary Completed 06/14/2011 Visit Plan: sample of veramyst. Cefuroxi me axetil. Pt. will focus on hydration and rest. Discussed comfort measures and monitoring for worsening symptoms. 12/02/2010 Appointment: Xiomara Rodriguez WPtel: [address] [place], [place] [address] ACUTE ILLNESS 12/02/2010 Patient Education: Patient Medication Summary Completed 12/02/2010 Visit Plan: Change HCTZ to spironolacton e will start zocor in 1 mo BP med in 1mo 11/12/2010 Appointment: Jessica Gee WPtel: [address] [place], [place] [phone] [place] FOLLOW UP 11/12/2010 Patient Education: Patient Medication Summary Completed 11/12/2010 Appointment: Jessica Gee WPtel: [address] [place], [place] [phone] [place] BP CHECK 10/26/2010 Patient Education: Patient Medication Summary Completed 10/26/2010 Visit Plan: Continue Toprol at bedtime A dd HCTZ in AM BP check in 2wks Fasting lab with next PT/INR 10/13/2010 Appointment: Jessica Gee WPtel: [address] [place] [address] FOLLOW UP 10/13/2010 Patient Education: Patient Medication Summary Completed 10/13/2010 Visit Plan: Cont abx. Fwup with surgery as scheduled 06/24/2010 Appointment: Jessica Gee WPtel: [address] [place] [address] Follow Up 06/24/2010 Patient Education: Patient Medication Summary Completed 06/24/2010 Appointment: Jessica Gee WPtel: [address] [place] [address] Follow Up 06/22/2010 Visit Plan: pt is [...] to subside. 06/08/2010 Appointment: Xiomara Rodriguez WPtel: [address] [place] [address] ACUTE ILLNESS 06/08/2010 Patient Education: Patient Medication Summary Completed 06/08/2010 Appointment: Xiomara Rodriguez WPtel: [address] [place] [address] FOLLOW UP 06/01/2010 Appointment: Jessica Gee WPtel: [address] [place] [address] UA 05/29/2010 Patient Education: Patient Medication Summary Completed 05/29/2010 Appointment: Xiomara Rodriguez WPtel: [address] [place] [address] ACUTE ILLNESS 05/20/2010 Patient Education: Patient Medication Summary Completed 05/20/2010 Appointment: Jessica Gee WPtel: [address] [place] [address] BP CHECK 05/13/2010 Patient Education: Patient Medication Summary Completed 05/13/2010 Visit Plan: Increase Lisinopril hct to 2 0/12.5mg q AM Use atarax prn and routinely at bedtime and Medrol dose pack BP check in 3wks Pt defers stress test at this time 04/30/2010 Appointment: Jessica Gee WPtel: [address] [place] [address] ACUTE ILLNESS 04/30/2010 Patient Education: Patient Medication Summary Completed 04/30/2010 Appointment: Jessica Gee WPtel: [address] [place] [address] BP CHECK 02/27/2010 Patient Education: Patient Medication Summary Completed 02/27/2010 Visit Plan: Cont Toprol Add Altace 10mg QD Cont Wellbutrin Will likely add SSRI after BP stable BP check in 2wks 01/22/2010 Appointment: Jessica Gee WPtel: [address] [place] [address] ACUTE ILLNESS 01/22/2010 Patient Education: Patient Medication Summary Completed 01/22/2010 Referral: Rupa Raines WPtel: [address] [place], [place] [id number] [place] Referral Completed Referral: Neymar Alberts WPtel: [address] [address] [place] Referral Initiated Instructions Comment . Tick [...]
--- OUTSIDE RECORDS SUMMARY | 2019-09-10 03:05 | XMS REPORT | CCD ---
Author Author Nava Gee D.O. Organization JESSICA GEE DO [facility] Address [address] [place] [address] Phone Care Team Providers Care Lathe Setup Operator Name Role Phone Jessica Gee D.O., PP Unavailable CCM Unavailable Summary Purpose Interface Exchange Insurance Providers Payer name Policy type / Coverage type Covered alliance party ID Effective Begin Date Effective End Date Blue Cross Blue Shield Blue Cross/Blue Shield [id number] Unknown Family History Family History data not found Social History Social History Element Codes Description Effective Dates Tobacco history SNOMED CT: 028534536 Never smoker 10/13/2010 Allergies, Adverse Reactions, Alerts [...] findings ICD-9: V70.0 ICD-10: Z00.00 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.6 1 [...] Fill Instructions warfarin 6 mg tablet RxNorm: 882104 1 Tablet(s) Oral QD then on Tue/ take along with Warfarin 1mg (7mg) 05/09/2019 No Stop Date Active Jardiance 25 mg tablet RxNorm: 2790448 1 Tablet(s) Oral QD 05/09/19 20 05/23/2019 Active Jardiance 25 mg tablet RxNorm: 1967612 1 Tablet(s) Oral QAM 020 09/06/2019 Active Jardiance 10 mg tablet RxNorm: 4012490 1 Tablet(s) Oral QD 05/09/19 No Stop Date Active warfarin 1 mg tablet RxNorm: 336608 1 Tablet(s) Oral on Tue and with 6mg tablet (total 7mg) 05/09/2019 No Stop Date Active warfarin 5 mg tablet RxNorm: 948962 1 Tablet(s) Oral QD 05/02/2019 Active warfarin 1 mg tablet RxNorm: 009521 TAKE 1 TABLET BY [facility] ONCE DAILY. TAKE AN ADDITIONAL TABLET ON TUESDAY AND Tuesday05/02/2019 05/08/2019 Inactiv e Coumadin 5 mg tablet RxNorm: 855123 TAKE 1 TABLET BY MOUTH ONCE DAILY 04/02/2019 05/02/2019 Inactive celecoxib 200 mg capsule RxNorm: 733553 TAKE 1 CAPSULE BY MOUTH TWICE DAILY 03/20/2019 06/17/2019 Active metformin ER 500 mg tablet,extended release 24 hr RxNorm: 86 0975 TAKE 1 TABLET BY MOUTH TWICE DAILY 03/19/2019 05/17/2019 Active pravastatin 40 mg tablet RxNorm: 404269 TAKE 1 TABLET BY MOUTH ONCE DAILY 03/19/2019 06/16/2019 Active Coumadin 5 mg tablet RxNorm: 334240 TAKE 1 TABLET BY MOUTH ONCE DAILY 02/28/2019 04/01/2019 Inactive warfarin 1 mg tablet RxNorm: 240440 TAKE 1 TABLET BY [facility] ONCE DAILY. TAKE AN ADDITIONAL TABLET ON TUESDAY AND Tuesday02/28/2019 05/01/2019 Inactiv e omeprazole 40 mg capsule,delayed release RxNorm: 002936 TAKE 1 CAPSULE BY MOUTH TWICE DAILY 02/19/2019 No Stop Date Active metformin ER 500 mg tablet,extended release 24 hr RxNorm: 86 0975 1 Tablet(s) PO BID 02/19/2019 03/18/2019 Inactive metformin ER 500 mg tablet,extended release 24 hr RxNorm: 86 0975 1 Tablet(s) PO BID 01/15/2019 02/13/2019 Inactive alprazolam 0.25 mg tablet RxNorm: 932378 1 Tablet(s) Oral prior to flight 01/03/2019 No Stop Date Active omeprazole 40 mg capsule,delayed release RxNorm: 095221 TAKE 1 CAPSULE BY MOUTH TWICE DAILY 12/20/2018 02/18/2019 Inactive metformin ER 500 mg tablet,extended release 24 hr RxNorm: 86 0975 1 Tablet(s) PO BID 12/11/2018 01/09/2019 Inactive pravastatin 40 mg tablet RxNorm: 982354 TAKE 1 TABLET BY MOUTH ONCE DAILY 12/11/2018 03/18/2019 Inactive Coumadin 5 mg tablet RxNorm: 469665 1 Tablet(s) PO QD 11/27/201809/2018 Inactive metformin ER 500 mg tablet,extended release 24 hr RxNorm: 86 0975 1 Tablet(s) PO BID 10/02/2018 11/30/2018 Inactive warfarin 1 mg tablet RxNorm: 649541 TAKE 1 TABLET BY [facility] ONCE DAILY. TAKE AN ADDITIONAL TABLET ON TUESDAY AND Tuesday10/02/2018 02/27/2019 Inactiv e Bactrim DS 800 mg-160 mg tablet RxNorm: 796755 1 Tablet(s) PO BID 0 09/27/2018 10/03/2018 Inactive warfarin 5 mg tablet RxNorm: 780954 1 Tablet(s) PO QD 09/27/201810/2018 Inactive Toprol XL 200 mg tablet,extended release RxNorm: 791208 1 Table t(s) PO QD 09/18/2018 03/16/2019 Inactive omeprazole 40 mg capsule,delayed release RxNorm: 462252 TAKE 1 CAPSULE BY MOUTH TWICE DAILY 09/11/2018 12/19/2018 Inactive Coumadin 5 mg tablet RxNorm: 660843 1 Tablet(s) PO QD 08/21/201811/2018 Inactive metformin ER 500 mg tablet,extended release 24 hr RxNorm: 86 0975 1 Tablet(s) PO BID 07/31/2018 09/28/2018 Inactive omeprazole 40 mg capsule,delayed release RxNorm: 513688 TAKE 1 CAPSULE BY MOUTH TWICE DAILY 06/27/2018 09/10/2018 Inactive metformin ER 500 mg tablet,extended release 24 hr RxNorm: 86 0975 Tablet(s) 1 Tablet(s) PO BID 06/27/2018 07/31/2018 Inactive Toprol XL 200 mg tablet,extended release RxNorm: 389738 1 Table t(s) PO QD 06/14/2018 09/17/2018 Inactive Coumadin 5 mg tablet RxNorm: 498495 1 Tablet(s) PO QD 06/14/201804/2018 Inactive metformin ER 500 mg tablet,extended release 24 hr RxNorm: 86 0975 Tablet(s) 1 Tablet(s) PO BID 05/22/2018 06/26/2018 Inactive Coumadin 5 mg tablet RxNorm: 683034 TAKE 1 TABLET BY MOUTH ONCE DAILY 05/11/2018 06/14/2018 Inactive Lovenox 40 mg/0.4 mL subcutaneous syringe RxNorm: 687328 40 Mil ligram(s) SQ QD 05/05/2018 09/26/2018 Inactive amitriptyline 25 mg tablet RxNorm: 717282 1 Tablet(s) PO QHS fo r sleep/HAs 04/24/2018 10/20/2018 Inactive iFlexMeTouch Ultra Test strips RxNorm: Test blood sugar sigrid y (Dx:E11.65) 04/24/2018 No Stop Date Active celecoxib 200 mg capsule RxNorm: 965279 1 Capsule(s) PO BID 019 10/20/2018 Inactive Celebrex 200 mg capsule RxNorm: 386564 TAKE 1 CAPSULE BY MOUTH ONCE DAILY 04/19/2018 04/23/2018 Inactive warfarin 1 mg tablet RxNorm: 928821 1 Tablet(s) PO QD a nd additional tablet on Mon & Thurs 04/14/2018 10/01/2018 Inactive Toprol XL 200 mg tablet,extended release RxNorm: 752412 TAKE 1 TABLET BY MOUTH ONCE DAILY 04/11/2018 06/14/2018 Inactive metformin ER 500 mg tablet,extended release 24 hr RxNorm: 86 0975 Tablet(s) 1 Tablet(s) PO BID 03/17/2018 05/21/2018 Inactive Coumadin 5 mg tablet RxNorm: 446066 TAKE 1 TABLET BY MOUTH ONCE DAILY 03/15/2018 05/10/2018 Inactive Lovenox 40 mg/0.4 mL subcutaneous syringe RxNorm: 646750 40 Mil ligram(s) SQ QD 01/27/2018 04/11/2018 Inactive omeprazole 40 mg capsule,delayed release RxNorm: 712782 TAKE 1 CAPSULE BY MOUTH TWICE DAILY 01/23/2018 06/26/2018 Inactive pravastatin 40 mg tablet RxNorm: 345567 TAKE 1 TABLET BY MOUTH ONCE DAILY 01/23/2018 12/10/2018 Inactive metformin ER 500 mg tablet,extended release 24 hr RxNorm: 86 0975 Tablet(s) 1 Tablet(s) PO BID 01/16/2018 01/15/2018 Inactive Toprol XL 200 mg tablet,extended release RxNorm: 635577 TAKE 1 TABLET BY MOUTH ONCE DAILY 01/16/2018 04/10/2018 Inactive Coumadin 5 mg tablet RxNorm: 833227 TAKE 1 TABLET BY MOUTH ONCE DAILY 01/06/2018 03/14/2018 Inactive Celebrex 200 mg capsule RxNorm: 193226 1 Capsule(s) PO BID 12/28/19 18 03/26/2018 Inactive metformin ER 500 mg tablet,extended release 24 hr RxNorm: 86 0975 1 Tablet(s) PO BID Needs APPT 12/21/2017 01/16/2018 Inactive omeprazole 40 mg capsule,delayed release RxNorm: 582122 TAKE 1 CAPSULE BY MOUTH TWICE DAILY 11/02/2017 01/22/2018 Inactive Celebrex 200 mg capsule RxNorm: 006926 1 Capsule(s) PO QD 11/01/2017 12/26/2017 Inactive Coumadin 5 mg tablet RxNorm: 707494 Tablet(s) TAKE ONE TABLET BY MOUTH ONCE DAILY. 10/31/2017 12/29/2017 Inactive warfarin 1 mg tablet RxNorm: 205450 1 Tablet(s) PO QD 10/31/201703/22 Inactive spironolactone 25 mg tablet RxNorm: 517359 TAKE TWO TAB LETS BY MOUTH IN THE MORNING 10/31/2017 04/23/2018 Inactive metformin ER 500 mg tablet,extended release 24 hr RxNorm: 86 0975 1 Tablet(s) PO BID Needs updated fasting lab 10/20/2017 12/21/2017 Inactive Medrol (Dale) 4 mg tablets in a dose pack RxNorm: 353866 Tablet(s) PO take as directed 10/12/2017 12/15/2017 Inactive Celebrex 200 mg capsule RxNorm: 419617 1 Capsule(s) PO QD 10/03/2017 10/02/2017 Inactive spironolactone 25 mg tablet RxNorm: 352335 TAKE TWO TAB LETS BY MOUTH IN THE MORNING 09/19/2017 10/30/2017 Inactive Zithromax Z-Dale 250 mg tablet RxNorm: 730557 Tablet(s) PO take as directed 09/16/2017 10/11/2017 Inactive Medrol (Dale) 4 mg tablets in a dose pack RxNorm: 943691 Tablet(s) take as directed PO 09/16/2017 10/11/2017 Inactive doxycycline hyclate 100 mg tablet RxNorm: 9651623 1 Tablet(s) PO BI D 09/16/2017 09/15/2017 Inactive doxycycline hyclate 100 mg tablet RxNorm: 4980499 1 Tablet(s) PO BI D 09/16/2017 09/25/2017 Inactive Tessalon Perles 100 mg capsule RxNorm: 751682 1 Capsule(s) PO T ID as needed 09/16/2017 12/15/2017 Inactive warfarin 1 mg tablet RxNorm: 409324 1 Tablet(s) PO QD 09/06/201710/19 Inactive Coumadin 5 mg tablet RxNorm: 300958 Tablet(s) TAKE ONE TABLET BY MOUTH ONCE DAILY. 09/06/2017 10/31/2017 Inactive Toprol XL 200 mg tablet,extended release RxNorm: 635895 1 Table t(s) PO QD 2017 01/02/2018 Inactive warfarin 1 mg tablet RxNorm: 596203 1 Tablet(s) PO QD DUE FOR L ABS AUGUST 12 08/29/2017 09/06/2017 Inactive Coumadin 5 mg tablet RxNorm: 898359 Tablet(s) TAKE ONE TABLET BY MOUTH ONCE DAILY. DUE FOR PT/INR AUGUST 12 08/29/2017 09/06/2017 Inactive Coumadin 5 mg tablet RxNorm: 941616 Tablet(s) TAKE ONE TABLET BY MOUTH ONCE DAILY. DUE FOR PT/INR AUGUST 12 08/01/2017 08/29/2017 Inactive warfarin 1 mg tablet RxNorm: 724448 1 Tablet(s) PO QD DUE FOR L ABS AUGUST 12 08/01/2017 08/29/2017 Inactive scopolamine 1 mg over 3 days transdermal patch RxNorm: 98312 2 1 TD take off in 72 hours. 08/01/2017 12/26/2017 Inactive pravastatin 40 mg tablet RxNorm: 244017 Tablet(s) TAKE ONE TABLET BY MOUTH ONCE DAILY 07/07/2017 01/02/2018 Inactive Coumadin 5 mg tablet RxNorm: 259585 Tablet(s) TAKE ONE TABLET BY MOUTH ONCE DAILY. DUE FOR PT/INR. 06/29/2017 08/01/2017 Inactive warfarin 1 mg tablet RxNorm: 818290 1 Tablet(s) PO QD 06/29/201707/19 Inactive Coumadin 5 mg tablet RxNorm: 100661 TAKE ONE TABLET BY MOUTH ONCE DAILY. DUE FOR PT/INR. 05/30/2017 06/29/2017 Inactive omeprazole 40 mg capsule,delayed release RxNorm: 404519 1 Capsu le(s) PO BID 05/30/2017 08/27/2017 Inactive Celebrex 200 mg capsule RxNorm: 288390 1 Capsule(s) PO QD 05/23/2017 10/03/2017 Inactive metformin ER 500 mg tablet,extended release 24 hr RxNorm: 86 0975 TAKE ONE TABLET BY MOUTH TWICE DAILY 05/20/2017 10/20/2017 Inactive Coumadin 5 mg tablet RxNorm: 516319 1 Tablet(s) PO QD due for PT/IN R 04/25/2017 05/24/2017 Inactive warfarin 1 mg tablet RxNorm: 632884 1 Tablet(s) PO QD due for l abs this week 03/16/2017 06/29/2017 Inactive omeprazole 40 mg capsule,delayed release RxNorm: 551331 1 Capsu le(s) PO BID 03/16/2017 05/30/2017 Inactive Celebrex 200 mg capsule RxNorm: 431143 1 Capsule(s) PO BID as n eeded for pain 03/16/2017 05/22/2017 Inactive Coumadin 5 mg tablet RxNorm: 301738 1 Tablet(s) PO QD due for PT/IN R 03/16/2017 04/14/2017 Inactive Celebrex 200 mg capsule RxNorm: 838721 1 Capsule(s) PO BID as n eeded for pain 02/09/2017 03/15/2017 Inactive Toprol XL 200 mg tablet,extended release RxNorm: 189950 1 Table t(s) PO QD 02/08/2017 2017 Inactive Celebrex 200 mg capsule RxNorm: 040495 1 Capsule(s) PO BID as n eeded for pain 01/14/2017 02/08/2017 Inactive omeprazole 40 mg capsule,delayed release RxNorm: 200241 1 Capsu le(s) PO BID 01/12/2017 03/16/2017 Inactive Coumadin 5 mg tablet RxNorm: 088462 1 Tablet(s) PO QD 12/15/201602/19 Inactive warfarin 1 mg tablet RxNorm: 589550 1 Tablet(s) PO QD 12/15/201602/19 Inactive metformin ER 500 mg tablet,extended release 24 hr RxNorm: 86 0975 Tablet(s) TAKE ONE TABLET BY MOUTH TWICE DAILY 11/29/2016 02/26/2017 Inactive omeprazole 40 mg capsule,delayed release RxNorm: 587973 1 Capsu le(s) PO BID 11/29/2016 12/28/2016 Inactive pravastatin 40 mg tablet RxNorm: 425947 Tablet(s) TAKE ONE TABLET BY MOUTH ONCE DAILY 11/19/2016 07/07/2017 Inactive omeprazole 40 mg capsule,delayed release RxNorm: 136143 1 Capsu le(s) PO BID 10/19/2016 10/18/2016 Inactive omeprazole 40 mg capsule,delayed release RxNorm: 567017 1 Capsu le(s) PO BID 10/19/2016 11/17/2016 Inactive pantoprazole 40 mg tablet,delayed release RxNorm: 717879 1 Tabl et(s) PO QD 09/30/2016 10/18/2016 Inactive pantoprazole 40 mg tablet,delayed release RxNorm: 945123 1 Tabl et(s) PO QD 09/30/2016 09/29/2016 Inactive Zofran ODT 4 mg disintegrating tablet RxNorm: 298813 1 Tablet(s) PO Q4H as needed for nausea 09/15/2016 01/02/2017 Inactive Coumadin 5 mg tablet RxNorm: 851174 1 Tablet(s) PO QD 09/14/201611/20 Inactive warfarin 1 mg tablet RxNorm: 971269 1 Tablet(s) PO QD 09/14/201611/20 Inactive spironolactone 25 mg tablet RxNorm: 323891 2 Tablet(s) PO QAM 09/0301/02/2017 Inactive Wellbutrin XL 300 mg 24 hr tablet, extended release RxNorm: 789646 TAKE ONE TABLET BY MOUTH ONCE DAILY 08/26/2016 12/26/2017 Inactive Toprol XL 200 mg tablet,extended release RxNorm: 633007 1 Table t(s) PO QD 07/28/2016 02/08/2017 Inactive metformin ER 500 mg tablet,extended release 24 hr RxNorm: 86 0975 Tablet(s) TAKE ONE TABLET BY MOUTH TWICE DAILY 07/15/2016 11/29/2016 Inactive cyclobenzaprine 5 mg tablet RxNorm: 411374 1 Tablet(s) PO QHS f or spasm 07/08/2016 08/06/2016 Inactive Celebrex 200 mg capsule RxNorm: 1 Capsule(s) PO BID 07/08/2016 Inactive spironolactone 25 mg tablet RxNorm: 671795 1 Tablet(s) PO QAM 07/0609/02/2016 Inactive Wellbutrin XL 300 mg 24 hr tablet, extended release RxNorm: 913742 TAKE ONE TABLET BY MOUTH ONCE DAILY 06/15/2016 07/14/2016 Inactive Coumadin 5 mg tablet RxNorm: 371845 1 Tablet(s) PO QD 06/08/201608/20 Inactive warfarin 1 mg tablet RxNorm: 429859 1 Tablet(s) PO QD 06/08/201608/20 Inactive Toprol XL 200 mg tablet,extended release RxNorm: 616931 TAKE ONE TABLET BY MOUTH ONCE DAILY 04/26/2016 07/28/2016 Inactive pravastatin 40 mg tablet RxNorm: 841816 TAKE ONE TABLET BY MOUT H ONCE DAILY 04/19/2016 10/15/2016 Inactive Coumadin 5 mg tablet RxNorm: 520638 1 Tablet(s) PO QD 03/09/201605/19 Inactive warfarin 1 mg tablet RxNorm: 514299 1 Tablet(s) PO QD 03/09/201605/19 Inactive metformin ER 500 mg tablet,extended release 24 hr RxNorm: 86 0975 TAKE ONE TABLET BY MOUTH TWICE DAILY 02/25/2016 07/15/2016 Inactive spironolactone 25 mg tablet RxNorm: 660282 TAKE ONE TAB LET BY MOUTH ONCE DAILY IN THE MORNING 02/25/2016 07/06/2016 Inactive prednisone 20 mg tablet RxNorm: 997926 1 Tablet(s) PO QAM 02/16/2016 02/20/2016 Inactive cefdinir 300 mg capsule RxNorm: 849915 2 Capsule(s) PO QD 02/16/2016 02/25/2016 Inactive Toprol XL 200 mg tablet,extended release RxNorm: 630353 TAKE ONE TABLET BY MOUTH ONCE DAILY 01/26/2016 04/24/2016 Inactive Aciphex 20 mg tablet,delayed release RxNorm: 765693 1 Tablet(s) PO BID 12/24/2015 09/29/2016 Inactive Omeprazole and Pepci d have not helped. Coumadin 5 mg tablet RxNorm: 394510 1 Tablet(s) PO QD 12/10/201502/19 Inactive Coumadin 5 mg tablet RxNorm: 097406 1 Tablet(s) PO QD 12/08/201511/20 Inactive Toprol XL 200 mg tablet,extended release RxNorm: 579150 TAKE ONE TABLET BY MOUTH ONCE DAILY 11/20/2015 01/18/2016 Inactive warfarin 1 mg tablet RxNorm: 881763 1 Tablet(s) PO QD 11/03/201502/19 Inactive pravastatin 40 mg tablet RxNorm: 429047 Tablet(s) TAKE ONE TABLET BY MOUTH ONCE DAILY 10/20/2015 01/17/2016 Inactive pravastatin 40 mg tablet RxNorm: 580100 TAKE ONE TABLET BY MOUT H ONCE DAILY 10/20/2015 10/19/2015 Inactive metformin ER 500 mg tablet,extended release 24 hr RxNorm: 86 0975 TAKE ONE TABLET BY MOUTH TWICE DAILY 10/03/2015 12/31/2015 Inactive Toprol XL 200 mg tablet,extended release RxNorm: 777666 TAKE ONE TABLET BY MOUTH ONCE DAILY 09/17/2015 11/15/2015 Inactive Coumadin 5 mg tablet RxNorm: 901736 1 Tablet(s) PO QD 09/02/201511/19 Inactive Wellbutrin XL 300 mg 24 hr tablet, extended release RxNorm: 651289 TAKE ONE TABLET BY MOUTH ONCE DAILY 08/01/2015 10/29/2015 Inactive Pepcid 20 mg tablet RxNorm: 346611 1 Tablet(s) PO BID as needed 05/24/2017 Inactive warfarin 1 mg tablet RxNorm: 675759 TAKE ONE TABLET BY MOUTH ON CE DAILY 07/08/2015 11/03/2015 Inactive pravastatin 40 mg tablet RxNorm: 693933 1 Tablet(s) PO QD 07/08/2015 10/05/2015 Inactive spironolactone 25 mg tablet RxNorm: 891852 TAKE ONE TAB LET BY MOUTH ONCE DAILY IN THE MORNING 06/13/2015 09/10/2015 Inactive Coumadin 5 mg tablet RxNorm: 528701 1 Tablet(s) PO QD 06/05/201508/19 Inactive Wellbutrin XL 300 mg 24 hr tablet, extended release RxNorm: 351725 TAKE ONE TABLET BY MOUTH ONCE DAILY 05/16/2015 09/26/2018 Inactive Wellbutrin XL 300 mg 24 hr tablet, extended release RxNorm: 958098 TAKE ONE TABLET BY MOUTH ONCE DAILY 05/16/2015 06/14/2015 Inactive metformin ER 500 mg tablet,extended release 24 hr RxNorm: 86 0975 TAKE ONE TABLET BY MOUTH TWICE DAILY 05/16/2015 08/13/2015 Inactive pravastatin 40 mg tablet RxNorm: 072870 1 Tablet(s) PO QD 04/10/2015 07/07/2015 Inactive Aciphex 20 mg tablet,delayed release RxNorm: 171574 1 Tablet(s) PO BID 03/07/2015 09/02/2015 Inactive Omeprazole and Pepci d have not helped. Toprol XL 200 mg tablet,extended release RxNorm: 224640 1 Table t(s) PO QD 03/05/2015 08/31/2015 Inactive Aciphex 20 mg tablet,delayed release RxNorm: 852648 1 Tablet(s) PO QD 03/04/2015 03/06/2015 Inactive Omeprazole and Pepci d have not helped. Coumadin 5 mg tablet RxNorm: 847834 1 Tablet(s) PO QD 02/28/201511/2015 Inactive Aciphex 20 mg tablet,delayed release RxNorm: 787879 1 Tablet(s) PO BID 02/11/2015 03/03/2015 Inactive Omeprazole and Pepci d have not helped. metformin ER 500 mg tablet,extended release 24 hr RxNorm: 86 0975 1 Tablet(s) PO BID 01/10/2015 04/09/2015 Inactive pravastatin 40 mg tablet RxNorm: 086307 1 Tablet(s) PO QD 01/06/2015 04/05/2015 Inactive Wellbutrin XL 300 mg 24 hr tablet, extended release RxNorm: 014374 TAKE ONE TABLET BY MOUTH ONCE DAILY 12/19/2014 02/16/2015 Inactive amoxicillin 500 mg capsule RxNorm: 832119 2 Capsule(s) PO BID 12/0612/15/2014 Inactive Flonase 50 mcg/actuation nasal spray,suspension RxNorm: 8963 23 2 [place] each nostril NASAL QD 12/06/2014 03/05/2015 Inactive Coumadin 5 mg tablet RxNorm: 596315 1 Tablet(s) PO QD 11/28/201410/2014 Inactive spironolactone 25 mg tablet RxNorm: 522025 1 Tablet(s) PO QAM 11/2602/23/2015 Inactive Coumadin 5 mg tablet RxNorm: 291354 1 Tablet(s) PO QD 1 Tablet(s) PO QD- NEED TO CHECK LABS 10/30/2014 11/28/2014 Inactive warfarin 1 mg tablet RxNorm: 637948 1 Tablet(s) PO QD 10/30/201409/2015 Inactive Aciphex 20 mg tablet,delayed release RxNorm: 305372 1 Tablet(s) PO QD 10/02/2014 02/10/2015 Inactive Omeprazole and Pepci d have not helped. Coumadin 5 mg tablet RxNorm: 151168 1 Tablet(s) PO QD 1 Tablet(s) PO QD- NEED TO CHECK LABS 09/30/2014 10/30/2014 Inactive pravastatin 40 mg tablet RxNorm: 032593 1 Tablet(s) PO QD 09/25/2014 01/06/2015 Inactive warfarin 1 mg tablet RxNorm: 312110 1 Tablet(s) PO QD T [place] ONE TABLET BY MOUTH DIRECTED ON MON AND THUR 08/28/2014 10/29/2014 Inactive metformin ER 500 mg tablet,extended release 24 hr RxNorm: 86 0975 1 Tablet(s) PO BID 08/28/2014 01/10/2015 Inactive amoxicillin 875 mg tablet RxNorm: 340889 1 Tablet(s) PO BID 015 08/18/2014 Inactive Toprol XL 200 mg tablet,extended release RxNorm: 907523 TAKE ONE TABLET BY MOUTH ONCE DAILY 07/22/2014 03/05/2015 Inactive Coumadin 5 mg tablet RxNorm: 682525 1 Tablet(s) PO QD 07/01/201409/18 Inactive amoxicillin 875 mg tablet RxNorm: 893539 1 Tablet(s) PO BID 015 06/30/2014 Inactive pravastatin 40 mg tablet RxNorm: 049816 1 Tablet(s) PO QD needs fasting labs 06/19/2014 09/25/2014 Inactive Coumadin 5 mg tablet RxNorm: 926755 1 Tablet(s) PO QD 1 Tablet(s) PO QD TAKE ONE TABLET BY MOUTH ONCE DAILY-need labs 05/28/2014 07/01/2014 Inactive warfarin 1 mg tablet RxNorm: 689864 1 Tablet(s) PO As Directed 05/1908/28/2014 Inactive pravastatin 40 mg tablet RxNorm: 247473 1 Tablet(s) PO QD needs fasting labs 05/14/2014 06/19/2014 Inactive metformin ER 500 mg tablet,extended release 24 hr RxNorm: 86 0975 1 Tablet(s) PO BID 04/25/2014 08/28/2014 Inactive spironolactone 25 mg tablet RxNorm: 617738 1 Tablet(s) PO QAM 04/2511/26/2014 Inactive Coumadin 5 mg tablet RxNorm: 231077 1 Tablet(s) PO QD 1 Tablet(s) PO QD TAKE ONE TABLET BY MOUTH ONCE DAILY 04/23/2014 05/28/2014 Inactive Coumadin 5 mg tablet RxNorm: 173017 1 Tablet(s) PO QD 1 Tablet(s) PO QD TAKE ONE TABLET BY MOUTH ONCE DAILY 03/22/2014 04/20/2014 Inactive Tessalon Perles 100 mg capsule RxNorm: 201542 1 Capsule(s) PO TID 0 03/22/2014 03/28/2014 Inactive cefdinir 300 mg capsule RxNorm: 750728 2 Capsule(s) PO QD 03/22/2014 03/31/2014 Inactive Medrol (Dale) 4 mg tablets in a dose pack RxNorm: 750804 Tablet(s) PO as directed 03/05/2014 08/08/2014 Inactive Coumadin 5 mg tablet RxNorm: 216914 1 Tablet(s) PO QD 1 Tablet(s) PO QD TAKE ONE TABLET BY MOUTH ONCE DAILY 02/19/2014 03/20/2014 Inactive pravastatin 40 mg tablet RxNorm: 155718 1 Tablet(s) PO QD 02/04/2014 05/14/2014 Inactive Coumadin 5 mg tablet RxNorm: 254491 1 Tablet(s) PO QD T [place] ONE TABLET BY MOUTH ONCE DAILY 01/21/2014 02/19/2014 Inactive Medrol (Dale) 4 mg tablets in a dose pack RxNorm: 093464 Tablet(s) PO as directed 01/18/2014 03/04/2014 Inactive cefdinir 300 mg capsule RxNorm: 774325 2 Capsule(s) PO QD 01/16/2014 01/25/2014 Inactive metformin ER 500 mg tablet,extended release 24 hr RxNorm: 86 0975 1 Tablet(s) PO BID 12/17/2013 04/25/2014 Inactive Wellbutrin SR 150 mg tablet,sustained-release RxNorm: 362169 1 Tablet(s) PO BID 11/30/2013 02/27/2014 Inactive spironolactone 25 mg tablet RxNorm: 574439 1 Tablet(s) PO QAM 10/2204/25/2014 Inactive Macrobid 100 mg capsule RxNorm: 609557 1 Capsule(s) PO BID 10/20/19 14 10/25/2013 Inactive Macrobid 100 mg capsule RxNorm: 581510 1 Capsule(s) PO BID 10/20/19 14 10/18/2013 Inactive Toprol XL 100 mg tablet,extended release RxNorm: 208463 1 Table t(s) PO QD 10/15/2013 01/15/2014 Inactive Toprol XL 200 mg tablet,extended release RxNorm: 901480 1 Table t(s) PO QD 10/02/2013 07/22/2014 Inactive Wellbutrin XL 300 mg 24 hr tablet, extended release RxNorm: 320713 1 Tablet(s) PO QD 09/28/2013 12/19/2014 Inactive Aciphex 20 mg tablet,delayed release RxNorm: 934091 1 Tablet(s) PO QD 08/29/2013 10/02/2014 Inactive Omeprazole and Pepci d have not helped. Coumadin 5 mg tablet RxNorm: 297501 1 Tablet(s) PO QD 08/14/201307/20 Inactive Coumadin 5 mg tablet RxNorm: 931722 1 Tablet(s) PO QD 08/14/201305/2013 Inactive pravastatin 40 mg tablet RxNorm: 217985 1 Tablet(s) PO QD 07/24/2013 02/04/2014 Inactive warfarin 1 mg tablet RxNorm: 306727 1 Tablet(s) PO QD T [place] ONE TABLET BY MOUTH DIRECTED ON MON AND THUR 07/09/2013 05/28/2014 Inactive warfarin 5 mg tablet RxNorm: 762352 1 Tablet(s) PO QD T [place] ONE TABLET BY MOUTH EVERY DAY 06/08/2013 07/07/2013 Inactive spironolactone 25 mg tablet RxNorm: 682761 1 Tablet(s) PO QAM 05/3010/15/2013 Inactive clindamycin 300 mg capsule RxNorm: 204969 2 Capsule(s) PO TID 04/1704/30/2013 Inactive warfarin 5 mg tablet RxNorm: 844913 1 Tablet(s) PO QD 03/12/201305/20 Inactive azithromycin 250 mg tablet RxNorm: 323458 2 Tablet(s) PO QD 013 03/07/2013 Inactive metformin ER 500 mg tablet,extended release 24 hr RxNorm: 86 0975 1 Tablet(s) PO BID 02/22/2013 12/17/2013 Inactive spironolactone 25 mg tablet RxNorm: 834316 1 Tablet(s) PO QAM 01/2205/30/2013 Inactive metformin ER 500 mg tablet,extended release 24 hr RxNorm: 86 0977 1 Tablet(s) PO BID 01/11/2013 02/21/2013 Inactive pravastatin 40 mg tablet RxNorm: 130712 1 Tablet(s) PO QD 01/11/2013 07/24/2013 Inactive warfarin 5 mg tablet RxNorm: 307953 1 Tablet(s) PO QD 01/04/201302/19 Inactive warfarin 1 mg tablet RxNorm: 317021 Tablet(s) PO TAKE O NE TABLET BY MOUTH DIRECTED ON MON AND THUR 12/14/2012 07/08/2013 Inactive scopolamine 1.5 mg 72 hr Transderm Patch RxNorm: 197846 TD Apply 1 patch behind ear every 72 hours, replace after 3 days. 11/08/2012 01/15/2014 Inacti ve Pepcid 20 mg tablet RxNorm: 347041 1 Tablet(s) PO BID as needed 01/31/2013 Inactive Famvir 500 mg tablet RxNorm: 152830 1 Tablet(s) PO Q8H 11/03/2012 Inactive Aciphex 20 mg tablet,delayed release RxNorm: 078440 1 Tablet(s) PO QD 11/03/2012 05/01/2013 Inactive Omeprazole and Pepci d have not helped. gabapentin 300 mg capsule RxNorm: 845292 Capsule(s) PO TID 11/04/19 13 01/15/2014 Inactive warfarin 5 mg tablet RxNorm: 559323 1 Tablet(s) PO QD 11/02/201212/19 Inactive Wellbutrin XL 300 mg 24 hr tablet, extended release RxNorm: 356086 1 Tablet(s) PO QD 10/17/2012 04/30/2013 Inactive pravastatin 40 mg tablet RxNorm: 976079 Tablet(s) PO TA KE ONE TABLET BY MOUTH EVERY DAY. NEED FASTING LABS 09/18/2012 01/10/2013 Inactive Toprol XL 200 mg tablet,extended release RxNorm: 313363 Tablet(s) PO TAKE ONE TABLET BY MOUTH EVERY DAY 09/08/2012 10/01/2013 Inactive warfarin 5 mg tablet RxNorm: 238398 1 Tablet(s) PO QD 08/31/201210/19 Inactive pravastatin 40 mg tablet RxNorm: 856304 1 Tablet(s) PO QD Needs fasting labs 08/18/2012 09/16/2012 Inactive TAKE ONE TABLET BY M OUTH EVERY DAY warfarin 1 mg tablet RxNorm: 428625 1 Tablet(s) PO As directed on Mon and Th08/11/2012 12/13/2012 Inactive spironolactone 25 mg tablet RxNorm: 949447 1 Tablet(s) PO QAM 07/1110/08/2012 Inactive warfarin 5 mg tablet RxNorm: 499940 1 Tablet(s) PO QD 07/03/201208/19 Inactive Diflucan 100 mg tablet RxNorm: 224361 1 Tablet(s) PO QD 05/04/2012 Inactive Cipro 500 mg tablet RxNorm: 561745 1 Tablet(s) PO BID 05/04/201204/22 Inactive Aciphex 20 mg tablet,delayed release RxNorm: 319611 1 Tablet(s) PO QD 05/04/2012 07/02/2012 Inactive Omeprazole and Pepci d have not helped. warfarin 5 mg tablet RxNorm: 095615 1 Tablet(s) PO QD 05/02/201206/19 Inactive warfarin 5 mg tablet RxNorm: 490250 1 Tablet(s) PO QD 03/02/201204/21 Inactive Toprol XL 200 mg tablet,extended release RxNorm: 869258 1 Table t(s) PO QD 03/02/2012 05/30/2012 Inactive spironolactone 25 mg tablet RxNorm: 126028 1 Tablet(s) PO QAM 02/0707/11/2012 Inactive pravastatin 40 mg tablet RxNorm: 460914 Tablet(s) PO 01/31/201208/17 Inactive TAKE ONE TABLET BY MOUTH EVERY DAY pravastatin 40 mg tablet RxNorm: 801573 1 Tablet(s) PO QD 01/31/2012 08/18/2012 Inactive omeprazole 40 mg capsule,delayed release RxNorm: 244937 1 Capsule(s) PO QD for stomach 01/11/2012 11/02/2012 Inactive for stomach warfarin 5 mg tablet RxNorm: 639541 1 Tablet(s) PO QD 01/03/201202/18 Inactive warfarin 5 mg tablet RxNorm: 328763 1 Tablet(s) PO QD 12/03/201112/19 Inactive pravastatin 40 mg tablet RxNorm: 085998 1 Tablet(s) PO QD 11/25/2011 01/23/2012 Inactive cefdinir 300 mg Cap RxNorm: 776468 1 Capsule(s) PO BID 10/11/201103/2011 Inactive Culturelle 10 billion cell Cap RxNorm: 762432 1 Capsule(s) PO BID 0 10/11/2011 11/09/2011 Inactive Diflucan 100 mg Tab RxNorm: 894031 1 Tablet(s) PO QD 10/11/201110/19 Inactive Wellbutrin XL 300 mg 24 hr tablet, extended release RxNorm: 366298 1 Tablet(s) PO QD 09/14/2011 10/17/2012 Inactive pravastatin 40 mg tablet RxNorm: 202530 1 Tablet(s) PO QD 08/25/2011 11/25/2011 Inactive Coumadin 5 mg tablet RxNorm: 254441 Tablet(s) PO Take as direct ed by doctor. 07/07/2011 12/03/2011 Inactive Singulair 10 mg Tab RxNorm: 490786 1 Tablet(s) PO QD al lergy medication. (Please try to be consistent in dosing) 06/23/2011 01/15/2014 Inactive Diflucan 100 mg Tab RxNorm: 368284 1 Tablet(s) PO QD 06/14/201107/02 Inactive cefdinir 300 mg Cap RxNorm: 788567 1 Capsule(s) PO BID 06/14/201106/2011 Inactive pravastatin 40 mg Tab RxNorm: 484420 1 Tablet(s) PO QD 05/25/201108/2011 Inactive warfarin 5 mg Tab RxNorm: 060293 Tablet(s) PO 05/25/2011 10/18/2011 In active TAKE ONE TABLET BY MOUTH EVERY DAY Toprol XL 200 mg tablet,extended release RxNorm: 466911 1 Table t(s) PO QD 03/05/2011 06/02/2011 Inactive spironolactone 25 mg tablet RxNorm: 059989 1 Tablet(s) PO QAM 02/2402/08/2012 Inactive omeprazole 40 mg capsule,delayed release RxNorm: 825594 1 Capsule(s) PO QD for stomach 01/06/2011 01/11/2012 Inactive for stomach warfarin 5 mg Tab RxNorm: 245002 1 Tablet(s) PO QD 12/17/2010 011 Inactive warfarin 5 mg Tab RxNorm: 130619 1 Tablet(s) PO QD 11/18/2010 011 Inactive spironolactone 25 mg Tab RxNorm: 345518 1 Tablet(s) PO QAM 11/13/19 11 02/24/2011 Inactive Coumadin 6 mg Tab RxNorm: 375560 1 Tablet(s) PO QD 10/28/2010 011 Inactive May have generic hydrochlorothiazide 25 mg Tab RxNorm: 588861 1 Tablet(s) PO QAM 11/11/2010 Inactive Wellbutrin XL 300 mg 24 hr Tab RxNorm: 391326 1 Tablet(s) PO QD 09/14/2011 Inactive Septra DS 800 mg-160 mg Tab RxNorm: 531230 1 Tablet(s) PO BID 06/0806/17/2010 Inactive Pyridium 100 mg Tab RxNorm: 9708388 1 Tablet(s) PO TID 06/08/2010 Inactive Wellbutrin XL 300 mg 24 hr Tab RxNorm: 571562 1 Tablet(s) PO QD 05/201007/15/2010 Inactive hydroxyzine 25 mg Tab RxNorm: 010130 1 Tablet(s) PO QID prn itching--take routinely at bedtime. (pt. may not refil at this time but later) 05/20/2010 10/10/2011 Inactive Zyrtec 10 mg Tab RxNorm: 7485368 1 Tablet(s) PO BID 05/20/20102010 Inactive Coumadin 1 mg Tab RxNorm: 070136 1 Tablet(s) PO 6mg M-F, 7mg S-S 11/16/2010 Inactive hydroxyzine 25 mg Tab RxNorm: 910909 1 Tablet(s) PO QID prn itching--take routinely at bedtime 04/30/2010 05/19/2010 Inactive Toprol XL 200 mg 24 hr Tab RxNorm: 413711 1 Tablet(s) PO QD 011 06/23/2010 Inactive lisinopril-hydrochlorothiazide 10 mg-12.5 mg Tab RxNorm: 197 885 1 Tablet(s) PO QD 04/20/2010 04/29/2010 Inactive omeprazole 40 mg Cap, Delayed Release RxNorm: 878093 1 Capsule(s) PO QD for stomach 04/20/2010 08/17/2010 Inactive lisinopril-hydrochlorothiazide 10 mg-12.5 mg Tab RxNorm: 197 885 Tablet(s) PO 1QDAM - TAKE ONE TABLET BY MOUTH EVERY DAY IN THE MORNING 03/09/2010 Inactive lisinopril-hydrochlorothiazide 10 mg-12.5 mg Tab RxNorm: 197 885 1 Tablet(s) PO QD 02/27/2010 04/20/2010 Inactive Wellbutrin XL 300 mg 24 hr Tab RxNorm: 990953 1 Tablet(s) PO QD 05/21/2010 Inactive lisinopril-hydrochlorothiazide 10 mg-12.5 mg Tab RxNorm: 197 885 1 Tablet(s) PO QD 01/28/2010 02/26/2010 Inactive omeprazole 40 mg Cap, Delayed Release RxNorm: 467326 1 Capsule(s) PO QD for stomach 01/22/2010 04/20/2010 Inactive Altace 10 mg Cap RxNorm: 861987 1 Capsule(s) PO QD for BP 01/22/2010 03/22/2010 Inactive Coumadin 6 mg Tab RxNorm: 808765 1 Tablet(s) PO QD May have generic 12/03/2009 05/01/2010 Inactive Coumadin 6 mg Tab RxNorm: 263495 1 Tablet(s) PO 12/01/2009 12/02/2009 Inactive Coumadin 1 mg Tab RxNorm: 285023 1 Tablet(s) PO QD 11/28/2009 010 Inactive Coumadin 1 mg Tab RxNorm: 265572 1 Tablet(s) PO QD 07/02/2009 010 Inactive lisinopril-hydrochlorothiazide 20 mg-12.5 mg Tab RxNorm: 197 886 2 Tablet(s) PO QAM No Start Date 10/12/2010 Inactive Zofran ODT 4 mg disintegrating tablet RxNorm: 097693 1 Tablet(s) PO Q6H as needed for nausea No Start Date 09/14/2016 Inactive Wellbutrin XL 300 mg 24 hr Tab RxNorm: 457946 1 Tablet(s) PO QD No Start Date 02/02/2010 Inactive alprazolam 0.25 mg tablet RxNorm: 553247 1 Tablet(s) PO prior t o flight No Start Date 05/24/2017 Inactive hydrocodone-acetaminophen 5 mg-500 mg Tab RxNorm: 636301 1-2 Tablet(s) PO Q4H as needed for pain No Start Date 12/02/2010 Inactive Toprol XL 100 mg 24 hr Tab RxNorm: 560623 1 Tablet(s) PO QD No Star t Date 10/14/2013 Inactive Celebrex 200 mg capsule RxNorm: 265455 1 Capsule(s) PO QD No Start Date 05/22/2017 Inactive Flexeril 10 mg tablet RxNorm: 734541 1 Tablet(s) PO TID No Start Da te 04/02/2019 Inactive scopolamine 1 mg over 3 days transdermal patch RxNorm: 27288 2 1 TD take off in 72 hours. No Start Date 07/31/2017 Inactive OneTouch Ultra Test strips RxNorm: Test blood sugar daily No S tart Date 04/23/2018 Inactive Medrol (Dale) 4 mg tablets in a dose pack RxNorm: 047461 Tablet(s) PO As directed No Start Date 01/15/2014 Inactive Coumadin 5 mg Tab RxNorm: 128698 1 Tablet(s) PO QD No Start Date 06/19 Inactive Pepcid 40 mg Tab RxNorm: 118114 1 Tablet(s) PO QD No Start Date 06/23 Inactive prednisone 10 mg Tab RxNorm: 847130 1 Tablet(s) PO BID No Start Date 06/23/2010 Inactive spironolactone 25 mg tablet RxNorm: 532862 1 Tablet(s) PO QAM No St art Date 09/26/2018 Inactive scopolamine 1.5 mg 72 hr Transderm Patch RxNorm: 073734 TD Apply 1 patch behind ear every 72 hours, replace after 3 days. No Start Date 11/07/2012 Inacti ve azithromycin 250 mg Tab RxNorm: 584772 Tablet(s) PO 2 t abs on day one and one tab on days 2-5. (antibiotic) No Start Date 10/10/2011 Inactive Medrol (Dale) 4 mg Tabs in a Dose Pack RxNorm: 223075 1 Tablet(s) PO as directed. (steroid pack) No Start Date 10/10/2011 Inactive Lovenox 40 mg/0.4 mL subcutaneous syringe RxNorm: 432825 40 Mil ligram(s) SQ QD No Start Date 05/04/2018 Inactive Celebrex 200 mg capsule RxNorm: 983634 1 Capsule(s) PO BID as n eeded for pain No Start Date 01/13/2017 Inactive warfarin 1 mg tablet RxNorm: 905166 1 Tablet(s) PO As directed on Tue and No Start Date 08/10/2012 Inactive cefuroxime axetil 500 mg Tab RxNorm: 697476 1 Tablet(s) PO BID No S tart Date 06/13/2011 Inactive Lovenox 40 mg/0.4 mL subcutaneous syringe RxNorm: 932458 40 Mil ligram(s) SQ QD No Start Date 01/26/2018 Inactive Coumadin 5 mg tablet RxNorm: 585036 1 Tablet(s) PO QD No Start Date 0 08/13/2013 Inactive Medrol (Dale) 4 mg tablets in a dose pack RxNorm: 111164 Tablet(s) PO as directed No Start Date 01/17/2014 Inactive Coumadin 6 mg tablet RxNorm: 481344 1 Tablet(s) PO QD No Start Date 0 06/20/2016 Inactive warfarin 5 mg tablet RxNorm: 907575 1 Tablet(s) PO QD No Start Date 0 12/02/2011 Inactive Medrol (Dale) 4 mg Tabs in a Dose Pack RxNorm: 342342 Tablet(s) PO as directed No Start Date 06/23/2010 Inactive Flonase 50 mcg/actuation nasal spray,suspension RxNorm: 8963 23 2 [place] NASAL BID No Start Date 12/05/2014 Inactive Pepcid 20 mg tablet RxNorm: 488346 1 Tablet(s) PO BID as needed No Start Date 11/02/2012 Inactive spironolactone 25 mg tablet RxNorm: 057658 1 Tablet(s) PO QAM No St art Date 04/02/2019 Inactive Medication Administered No Medication Administered data Immunizations No Immunization data Results Observation Observation Code Item Item Code Result Date S ervice Location MICROALBUMIN URINE RANDOM 98946 CREAT MG/D 139 MG/DL Unknown MICROALBUMIN URINE RANDOM 75542 CRE/100 1.39 G/L 12/20 Unknown Procedures Procedure Codes Date URINALYSIS NONAUTO W/O SCOPE CPT-4: 87116 09/27/2018 URINE CULTURE/ COLONY COUNT CPT-4: 33196 09/27/2018 URINALYSIS NONAUTO W/O SCOPE CPT-4: 04243 10/13/2017 URINE CULTURE/ COLONY COUNT CPT-4: 89558 10/13/2017 STREP A ASSAY W/OPTIC CPT-4: 24421 06/21/2016 STREP A ASSAY W/OPTIC CPT-4: 70679 06/24/2014 THER/PROPH/DIAG INJ SC/IM CPT-4: 23272 03/22/2014 METHYLPREDNISOLONE 40 MG INJ CPT-4: J1030 03/22/2014 TRIAMCINOLONE ACET INJ NOS CPT-4: J3301 03/22/2014 URINALYSIS NONAUTO W/O SCOPE CPT-4: 61623 10/19/2013 URINE CULTURE/ COLONY COUNT CPT-4: 48031 10/19/2013 CEFTRIAXONE SODIUM INJECTION CPT-4: J0696 03/02/2013 THER/PROPH/DIAG INJ SC/IM CPT-4: 72085 03/02/2013 CEFTRIAXONE SODIUM INJECTION CPT-4: J0696 03/01/2013 THER/PROPH/DIAG INJ SC/IM CPT-4: 32378 03/01/2013 THER/PROPH/DIAG INJ SC/IM CPT-4: 16062 03/01/2013 METHYLPREDNISOLONE 40 MG INJ CPT-4: J1030 03/01/2013 TRIAMCINOLONE ACET INJ NOS CPT-4: J3301 03/01/2013 MICROALBUMIN QUANTITATIVE CPT-4: 74941 01/11/2013 URINE CULTURE/ COLONY COUNT CPT-4: 23298 05/04/2012 URINALYSIS NONAUTO W/O SCOPE CPT-4: 95569 05/04/2012 URINE CULTURE/ COLONY COUNT CPT-4: 05277 05/29/2010 TRIAMCINOLONE ACET INJ NOS CPT-4: J3301 05/20/2010 METHYLPREDNISOLONE 40 MG INJ CPT-4: J1030 05/20/2010 THER/PROPH/DIAG INJ SC/IM CPT-4: 45179 05/20/2010 Vital Signs Date Vital 05/09/2019 Blood [...] 1: 134/78 Code: 8480-6 BMI: 35.1 Code: 95375-6 Heart Rate 1: 76 bpm Height: 5'9" Respiratory Rate: 20 bpm Temperature: 36 .6 (C) / 97.8 (F) Weight: 238 lbs 12/27/2017 Blood Pressure 1: 126/64 Code: 8480-6 BMI: 34.7 Code: 43993-0 Heart Rate 1: 72 bpm Height: 5'9" Respiratory Rate: 20 bpm Temperature: 36 .8 (C) / 98.2 (F) Weight: 235 lbs 10/12/2017 Blood Pressure 1: 142/80 Code: 8480-6 BMI: 35.1 Code: 72139-7 Heart Rate 1: 98 bpm Height: 5'9" Respiratory Rate: 22 bpm SpO2: 100% Tempera ture: 36.5 (C) / 97.7 (F) Weight: 238 lbs 09/16/2017 Blood Pressure 1: 136/82 Code: 8480-6 BMI: 34.1 Code: 49018-2 Heart Rate 1: 82 bpm Height: 5'9" Respiratory Rate: 18 bpm SpO2: 96% Tempera ture: 36.3 (C) / 97.3 (F) Weight: 231 lbs 05/25/2017 Blood Pressure 1: 122/82 Code: 8480-6 BMI: 32.3 Code: 67267-6 Heart Rate 1: 116 bpm Height: 5'9" Respiratory Rate: 20 bpm SpO2: 98% Tempera ture: 35.6 (C) / 96.1 (F) Weight: 219 lbs 01/03/2017 Blood Pressure 1: 126/78 Code: 8480-6 BMI: 33.4 Code: 40140-4 Heart Rate 1: 72 bpm Height: 5'9" Respiratory Rate: 20 bpm Temperature: 36 .8 (C) / 98.2 (F) Weight: 226 lbs 09/23/2016 Blood Pressure 1: 126/82 Code: 8480-6 BMI: 33.8 Code: 71286-4 Heart Rate 1: 80 bpm Height: 5'9" Respiratory Rate: 20 bpm SpO2: 97% Tempera ture: 36.8 (C) / 98.2 (F) Weight: 229 lbs 09/03/2016 Blood Pressure 1: 188/64 Code: 8480-6 Bl ood Pressure 2: 166/92 Code: 8480-6 BMI: 34.4 Code: 43260-5 Heart Rate 1: 66 bpm Height: 5'9" Res piratory Rate: 20 bpm SpO2: 98% Temperature: 35.7 (C) / 96.2 (F) Weight: 233 lbs 07/08/2016 Blood Pressure 1: 134/82 Code: 8480-6 Heart Rate 1: 64 bpm Height: 5'9" Respiratory Rate: 20 bpm SpO2: 97% Temperature: 36.6 (C) / 97.8 (F) Weight: 06/21/2016 Blood Pressure 1: 112/68 Code: 8480-6 BMI: 33.8 Code: 00281-6 Heart Rate 1: 64 bpm Height: 5'9" Respiratory Rate: 20 bpm SpO2: 95% Tempera ture: 36.3 (C) / 97.3 (F) Weight: 229 lbs 02/23/2016 Blood Pressure 1: 128/78 Code: 8480-6 BMI: 33.4 Code: 48457-6 Heart Rate 1: 74 bpm Height: 5'9" [...] 1: 122/80 Code: 8480-6 BMI: 32.2 Code: 32574-9 Heart Rate 1: 80 bpm Height: 5'9" Respiratory Rate: 20 bpm Temperature: 37 .0 (C) / 98.6 (F) Weight: 218 lbs 08/09/2014 Blood Pressure 1: 132/84 Code: 8480-6 BMI: 33.1 Code: 82601-7 Heart Rate 1: 72 bpm Height: 5'9" Respiratory Rate: 20 bpm Temperature: 36 .7 (C) / 98.0 (F) Weight: 224 lbs 06/24/2014 Blood Pressure 1: 132/80 Code: 8480-6 BMI: 32.8 Code: 01101-7 Heart Rate 1: 68 bpm Height: 5'9" Respiratory Rate: 20 bpm Temperature: 36 .4 (C) / 97.6 (F) Weight: 222 lbs 03/22/2014 Blood Pressure 1: 128/84 Code: 8480-6 BMI: 32.5 Code: 30549-6 Heart Rate 1: 78 bpm Height: 5'9" Respiratory Rate: 22 bpm Temperature: 36 .0 (C) / 96.8 (F) Weight: 220 lbs 03/05/2014 Blood Pressure 1: 124/78 Code: 8480-6 BMI: 31.9 Code: 61048-5 Heart Rate 1: 82 bpm Height: 5'9" Respiratory Rate: 20 bpm Temperature: 35 .8 (C) / 96.4 (F) Weight: 216 lbs 01/16/2014 Blood Pressure 1: 116/68 Code: 8480-6 BMI: 33.8 Code: 22714-8 Heart Rate 1: 72 bpm Height: 5'7" Respiratory Rate: 20 bpm Temperature: 36 .6 (C) / 97.9 (F) Weight: 216 lbs 05/10/2013 Blood Pressure 1: 124/86 Code: 8480-6 BMI: 34.3 Code: 91009-4 Heart Rate 1: 84 bpm Height: 5'7" [...] 1: 116/84 Code: 8480-6 BMI: 33.1 Code: 90772-6 Heart Rate 1: 64 bpm Height: 5'9" Respiratory Rate: 20 bpm Temperature: 36 .4 (C) / 97.6 (F) Weight: 224 lbs 01/11/2013 Blood Pressure 1: 126/84 Code: 8480-6 BMI: 35.3 Code: 29745-4 Heart Rate 1: 68 bpm Height: 5'9" Respiratory Rate: 20 bpm Temperature: 36 .7 (C) / 98.1 (F) Weight: 239 lbs 11/03/2012 Blood Pressure 1: 104 Code: 8480-6 BMI: 34.4 Code: 84713-7 Heart Rate 1: 72 bpm Height: 5'9" Respiratory Rate: 20 bpm Temperature: 36 .8 (C) / 98.3 (F) Weight: 233 lbs 05/04/2012 Blood Pressure 1: 12474 Code: 8480-6 BMI: 33.7 Code: 56907-4 Heart Rate 1: 84 bpm Height: 5'9" Temperature: 36.3 (C) / 97.3 (F) Weight: 228 lbs 10/11/2011 Blood Pressure 1: 11070 Code: 8480-6 BMI: 33.7 Code: 22611-9 Heart Rate 1: 64 bpm Height: 5'9" Temperature: 36.8 (C) / 98.3 (F) Weight: 228 lbs 06/23/2011 Blood Pressure 1: 114 Code: 8480-6 BMI: 33.4 Code: 78652-1 Heart Rate 1: 80 bpm Height: 5'9" Respiratory Rate: 20 bpm Temperature: 36 .7 (C) / 98.0 (F) Weight: 226 lbs 06/14/2011 Blood Pressure 1: 118 Code: 8480-6 BMI: 33.4 Code: 10891-0 Heart Rate 1: 80 bpm Height: 5'9" [...] 1: 126/82 Code: 8480-6 BMI: 32.6 Code: 12750-8 Heart Rate 1: 68 bpm Height: 5'9" [...] 1: 140/92 Code: 8480-6 BMI: 31.3 Code: 21042-7 Heart Rate 1: 60 bpm Height: 5'10" [...] upper back on 08/13/16 while camping around [place], [place]. Patient states is tender around tick [...] 01/22/2010 Encounters Encounter Performer Location Codes Date ([id number]) OFFICE/OUTPATIENT VISIT EST Diagnosis: Type 2 diabetes mellitus without complications[ICD10: E11.9] Jessica GEE DO [facility] CPT-4: 64545 05/09/2019 ([id number]) OFFICE/OUTPATIENT VISIT EST Diagnosis: Type 2 diabetes mellitus without complications[ICD10: E11.9] Diagnosis: Essential hypertension[ICD10: I10] Jessica Marlen GEE [facility] CPT-4: 47310 04/03/2019 ([id number]) OFFICE/OUTPATIENT VISIT EST Diagnosis: Gastro-esophageal reflux disease without esophagitis[ICD10: K21.9] Diagnosis: Urinary tract infection, site not specified[ICD10: N39.0] Diagnosis: Ventral hernia without obstruction or gangrene[ICD10: K43.9] Jessica SMITHLINE Monica GEE [facility] CPT-4: 07370 09/27/2018 ([id number]) OFFICE/OUTPATIENT VISIT EST Diagnosis: Essential (primary) hypertension[ICD10: I10] Diagnosis: Type 2 diabetes mellitus without complications[ICD10: E11.9] Diagnosis: Carpal tunnel syndrome, right upper limb[ICD10: G56.01] Diagnosis: Primary insomnia[ICD10: F51.01] [facility] 724[facility] 04/24/2018 ([id number]) OFFICE/OUTPATIENT VISIT EST Diagnosis: Type 2 diabetes mellitus without complications[ICD10: E11.9] Diagnosis: Mixed hyperlipidemia[ICD10: E78.2] Diagnosis: Essential (primary) hypertension[ICD10: I10] Diagnosis: Pain in unspecified joint[ICD10: M25.50] Jessica Michaelaaronderek SMITHJESSICA Monica GEE [facility] CPT-4: 54617 12/27/2017 ([id number]) NURSE/OUTPATIENT VISIT EST Diagnosis: Hematuria, unspecified[ICD10: R31.9] Jessica Michaelaaronderek SMITH ABNER Monica [facility]: 88084 10/13/2017 ([id number]) OFFICE/OUTPATIENT VISIT EST Diagnosis: Pleurodynia[ICD10: R07.81] Sofi SMITHLINE Monica [facility] CPT-4: 39005 10/12/2017 ([id number]) OFFICE/OUTPATIENT VISIT EST Diagnosis: Acute bronchitis, unspecified[ICD10: J20.9] Sofi GEE DO [facility] CPT-4: 63105 09/16/2017 ([id number]) OFFICE/OUTPATIENT VISIT EST Diagnosis: Other specified postprocedural states[ICD10: Z98.890] Diagnosis: Cellulitis of neck[ICD10: L03.221] Diagnosis: Tachycardia, unspecified[ICD10: R00.0] Jessica GEE [facility] CPT-4: 36925 05/25/2017 ([id number]) OFFICE/OUTPATIENT VISIT EST Diagnosis: Lumbago with sciatica, right side[ICD10: M54.41] Diagnosis: Pain in unspecified joint[ICD10: M25.50] Jessica GEE [facility] CPT-4: 79328 01/03/2017 ([id number]) OFFICE/OUTPATIENT VISIT EST Diagnosis: Bitten or stung by nonvenomous insect and other nonvenomous arthropods, subsequent encounter[ICD10: W57.XXXD] Diagnosis: Essential (primary) hypertension[ICD10: I10] Diagnosis: Low back pain[ICD10: M54.5] Jessica CARBAJAL [facility] CPT-4: 32409 09/23/2016 OFFICE/OUTPATIENT VISIT EST Diagnosis: Bitten or stung by nonvenomous insect and other nonvenomous arthropods, initial encounter[ICD10: W57.XXXA] Diagnosis: Essential (primary) hypertension[ICD10: I10] Kaitlynn Mosley JESSICA GEE [facility] CPT-4: 00143 09/03/2016 ([id number]) OFFICE/OUTPATIENT VISIT EST Diagnosis: Low back pain[ICD10: M54.5] Diagnosis: Radiculopathy, lumbosacral region[ICD10: M54.17] Jessica GEE [facility] CPT-4: 65533 07/08/2016 ([id number]) OFFICE/OUTPATIENT VISIT EST Diagnosis: Acute pharyngitis, unspecified[ICD10: J02.9] Jessica GEE [facility] CPT-4: 54091 06/21/2016 ([id number]) OFFICE/OUTPATIENT VISIT EST Diagnosis: Cough[ICD10: R05] Diagnosis: Fever, unspecified[ICD10: R50.9] Janiya GEE [facility] CPT-4: 88132 02/23/2016 ([id number]) OFFICE/OUTPATIENT VISIT EST Diagnosis: Acute sinusitis, unspecified[ICD10: J01.90] Jessica Marlen GEE [facility] CPT-4: 00199 02/16/2016 OFFICE/OUTPATIENT VISIT EST Diagnosis: Type 2 diabetes mellitus without complications[ICD10: E11.9] Diagnosis: Gastro-esophageal reflux disease without esophagitis[ICD10: K21.9] Diagnosis: Ventral hernia without obstruction or gangrene[ICD10: K43.9] Suki GEE [facility] CPT-4: 75626 02/11/2015 OFFICE/OUTPATIENT VISIT EST 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] Diagnosis: Essential (primary) hypertension[ICD10: I10] Suki GEE [facility] CPT-4: 28433 01/28/2015 OFFICE/OUTPATIENT VISIT EST Diagnosis: SINUSITIS, ACUTE[ICD9: 461.9] Kaitlynn MENDENHALLQUELINE Monica GEE [facility] CPT-4: 73486 12/06/2014 ([id number]) OFFICE/OUTPATIENT VISIT EST Diagnosis: SINUSITIS, ACUTE[ICD9: 461.9] Kaitlynn MENDENHALLQUELINE Monica GEE [facility] CPT-4: 02619 08/09/2014 ([id number]) OFFICE/OUTPATIENT VISIT EST Diagnosis: TONSILLITIS, ACUTE[ICD9: 463] Suki GEE DO [facility] CPT-4: 99701 06/24/2014 OFFICE/OUTPATIENT VISIT EST Diagnosis: SINUSITIS, ACUTE[ICD9: 461.9] Diagnosis: EUSTACHIAN TUBE DYSFUNCTION[ICD9: 381.81] Diagnosis: COUGH[ICD9: 786.2] Suki Jun GEE [facility] CPT-4: 53902 03/22/2014 OFFICE/OUTPATIENT VISIT EST Diagnosis: Elbow pain, right[ICD9: 719.42] Suki GEE DO [facility] CPT-4: 76203 03/05/2014 OFFICE/OUTPATIENT VISIT EST Diagnosis: SINUSITIS, ACUTE[ICD9: 461.9] Jessica GEE DO [facility] CPT-4: 10131 01/16/2014 ([id number]) OFFICE/OUTPATIENT VISIT EST Diagnosis: GROSS HEMATURIA[ICD9: 599.71] Jessica GEE DO [facility] CPT-4: 57345 10/19/2013 ([id number]) OFFICE/OUTPATIENT VISIT EST Diagnosis: DM W/O COMPLICATION TYPE II[ICD9: 250.00] Diagnosis: HYPERLIPIDEMIA NEC/NOS[ICD9: 272.4] Jessica GEE DO [facility] CPT-4: 88998 05/10/2013 ([id number]) OFFICE/OUTPATIENT VISIT EST Diagnosis: SINUSITIS, ACUTE[ICD9: 461.9] Jessica GEE DO [facility] CPT-4: 24567 04/17/2013 OFFICE/OUTPATIENT VISIT EST Diagnosis: OTITIS MEDIA NOS[ICD9: 382.9] Diagnosis: COUGH[ICD9: 786.2] Suki GEE DO [facility] CPT-4: 56022 03/05/2013 OFFICE/OUTPATIENT VISIT EST Diagnosis: COUGH[ICD9: 786.2] Diagnosis: BRONCHITIS, ACUTE[ICD9: 466.0] Suki GEE DO [facility] CPT-4: 80657 03/02/2013 OFFICE/OUTPATIENT VISIT EST Diagnosis: COUGH[ICD9: 786.2] Diagnosis: OTITIS MEDIA NOS[ICD9: 382.9] Diagnosis: BRONCHITIS, ACUTE[ICD9: 466.0] Suki GEE DO [facility] CPT-4: 75946 03/01/2013 OFFICE/OUTPATIENT VISIT EST Diagnosis: DM W/O COMPLICATION TYPE II, UNCONTROLLED[ICD9: 250.02] Jessica GEE DO [facility] CPT-4: 54272 02/22/2013 ([id number]) PREV VISIT EST AGE 40-64 Diagnosis: DM W/O COMPLICATION TYPE II, UNCONTROLLED[ICD9: 250.02] Diagnosis: HYPERTENSION[ICD9: 401.9] Diagnosis: ROUTINE MEDICAL EXAM[ICD9: V70.0] Jessica Michaelcorby Lucas DomingaLloyd MARLEN [facility] CPT-4: 00646 01/11/2013 OFFICE/OUTPATIENT VISIT EST Diagnosis: HZ (HERPES ZOSTER)[ICD9: 053.9] Kaitlynn Dimitri MENDENHALLQUELINE [facility] 25730 11/03/2012 OFFICE/OUTPATIENT VISIT EST Diagnosis: URINARY TRACT INFECTION[ICD9: 599.0] Diagnosis: GERD[ICD9: 530.81] Diagnosis: PHARYNGITIS, ACUTE[ICD9: 462] Jessica Marlen SMITHLINE DomingaLloyd [facility] CPT-[facility]: 88326 05/04/2012 OFFICE/OUTPATIENT VISIT EST Diagnosis: COUGH[ICD9: 786.2] Diagnosis: SINUSITIS, ACUTE[ICD9: 461.9] Diagnosis: PHARYNGITIS, ACUTE[ICD9: 462] Jessica Marlen SMITHLINE [facility]ingaLloyd [facility] CPT-[facility]: 35276 10/11/2011 OFFICE/OUTPATIENT VISIT EST Diagnosis: COUGH[ICD9: 786.2] Diagnosis: SINUSITIS, ACUTE[ICD9: 461.9] Diagnosis: PHARYNGITIS, ACUTE[ICD9: 462] Diagnosis: ALLERGIC RHINITIS[ICD9: 477.9] Xiomara VO Dominga Lloyd [facility] CPT-[facility]: 54166 06/23/2011 OFFICE/OUTPATIENT VISIT EST Diagnosis: COUGH[ICD9: 786.2] Diagnosis: SINUSITIS, ACUTE[ICD9: 461.9] Diagnosis: PHARYNGITIS, ACUTE[ICD9: 462] Jessica Mccormickderek JESSICA [facility]Lloyd [facility] CPT-[facility]: 83574 06/14/2011 OFFICE/OUTPATIENT VISIT EST Diagnosis: SINUSITIS, ACUTE[ICD9: 461.9] Diagnosis: PHARYNGITIS, ACUTE[ICD9: 462] Jessica MENDENHALLQUELINE [facility]Lloyd [facility] CPT-[facility]: 70894 12/02/2010 OFFICE/OUTPATIENT VISIT EST Diagnosis: HYPERTENSION[ICD9: 401.9] Diagnosis: HYPERLIPIDEMIA NEC/NOS[ICD9: 272.4] Diagnosis: DERMATITIS NOS[ICD9: 692.9] Jessicabaner Gee [facility] CPT-4: 99074 11/12/2010 OFFICE/OUTPATIENT VISIT EST Jessica [facility] CPT- 4: 40665 10/13/2010 ([id number]) OFFICE/OUTPATIENT VISIT EST Jessica HARKINS [facility] CPT-4: 14667 06/24/2010 ([id number]) OFFICE/OUTPATIENT VISIT EST Jessica HARKINS [facility] CPT-4: 03050 06/08/2010 ([id number]) OFFICE/OUTPATIENT VISIT EST Xiomara Rodriguez [facility] CPT-4: 79329 05/20/2010 ([id number]) OFFICE/OUTPATIENT VISIT EST Jessicashannan HARKINS [facility] CPT-4: 19667 04/30/2010 ([id number]) OFFICE/OUTPATIENT VISIT, EST Jessica MANZANO S. ORENDER DO [employer] CPT-4: 74368 01/22/2010 Plan of Care Planned Activity Notes Codes Status Date Visit Diagnosis Plan: Type 2 diabetes mellitus without complications Discussion: Increase Jardience to 25mg daily Acccuchecks daily Check CMP, HbA1C in 2mos then fwup ICD-9 : 250.00 ICD-10 : E11.9 05/09/2019 Patient Education: [employer] Patient Savings Message Alert Completed 05/09/2019 Visit Diagnosis Plan: Type 2 diabetes mellitus without complications Discussion: Lab discussed Add jardience 10mg po q AM Hold spironolactone Accuchecks daily alternating times Fwup 1 month with BS readings Notify if any signs of yeast infection ICD-9 : 250.00 ICD-10 : E11.9 04/03/2019 Appointment: Jessica [facility]ee [facility] [address] [facility] [facility] 04/03/2019 Visit Diagnosis Plan: Urinary [...] : K21.9 09/27/2018 Appointment: Jessica Gee WPtel: [facility] [address] ACUTE ILLNESS 09/27/2018 Visit Diagnosis Plan: Carpal [...] : F51.01 04/24/2018 Appointment: Jessica Gee WPtel: [facility] [address] ACUTE ILLNESS 04/24/2018 Patient Education: celecoxib- [employer] [id number] Completed 04/24/2018 Patient Education: amitriptyline- [employer] [id number] Completed 04/24/2018 Visit Diagnosis Plan: Type 2 [...] M25.50 12/27/2017 Appointment: Jessica Gee [facility]Ptel[facility] [address] [facility] FO[facility] [place] 12/27/2017 Patient Education: Patient Medication Summary Completed 12/27/2017 Patient Education: Patient Medication Summary Completed 12/19/2017 Care Plan: MAMMOGRAM BOTH BREASTS LOINC : 78763-1 Pending 12/19/2017 Patient Education: Patient Medication Summary Completed 12/16/2017 Care Plan: ASSAY THYROID STIM HORMONE Pen ding 12/16/2017 Care Plan: ASSAY OF FREE THYROXINE Pendin 12/16/2017 Care Plan: LIPID PANEL LOINC : 67148-7 Pending 12/16/2017 Care Plan: CBC Pending 12/16/2017 Care Plan: A1C HPLC LOINC : 02541-9 Pending 12/16/2017 Patient Education: Patient Medication Summary Completed 10/17/2017 Care Plan: CT ANGIOGRAPHY CHEST LOINC : 06981-7 Pending 10/17/2017 Patient Education: Patient Medication Summary Completed 10/14/2017 Care Plan: CT ANGIOGRAPHY CHEST LOINC : 54086-8 Pending 10/14/2017 Appointment: Jessica Gee [facility]Ptel[facility] [phone] [facility] [facility] 10/13/2017 Patient Education: Patient Medication Summary Completed 10/13/2017 Visit Diagnosis Plan: Pleurodynia Discussion: patient sent for stat cxray. medrol dose pack prescribed for symptom management. instructed to perform deep breathing exercises at home to prevent atelectasis or pneumonia. will notify pa tient of results of xray and order additional tests/medications as needed. ICD-9 : 786.50 ICD-10 : R07.81 10/12/2017 Appointment: Sof[address] [id number] ACUTE ILLNESS 10/12/2017 Patient Education: Patient Medication [...] : J20.9 09/16/2017 Appointment: Sofi Gresham [address] [facility] ACUTE ILLNESS 09/16/2017 Patient Education: Patient Medication Summary Completed 09/16/2017 Appointment: Jessica Gee WPtel: [address] [place] [address] [place] CANCELED 08/10/2017 Visit Diagnosis Plan: Cellulitis [...] : R00.0 05/25/2017 Appointment: Jessica Gee WPtel: [address] [place], [place] [id number] [place] FOLLOW UP 05/25/2017 Patient Education: Patient Medication Summary Completed 05/25/2017 Visit Diagnosis Plan: Lumbago with sciatica, right britton e Discussion: Check arthritis panel Patient awaiting neck surgery before surgery will consider back surgery ICD-9 : 724.2 ICD-10 : M54.41 01/03/2017 Appointment: Jessica Gee WPtel: [address] [place], [place] [address] ACUTE ILLNESS 01/03/2017 Patient Education: Patient Medication Summary Completed 01/03/2017 Patient Education: Patient Medication Summary Completed 12/16/2016 Care Plan: MAMMOGRAM SCREENING LOINC : 2 6347-5 Pending 12/16/2016 Patient Education: Patient Medication Summary Completed 10/07/2016 Care Plan: MRI LUMBAR SPINE W/O & W/DYE LOINC : 13476-3 Pending 10/07/2016 Visit Diagnosis Plan: Essential (primary) [...] : W57.XXXD 09/23/2016 Appointment: Jessica Gee WPtel: [address] [place] [address] 09/22 confirmed WORK IN 09/23/2016 Patient Education: Patient Medication Summary Completed 09/23/2016 Visit Plan: Tick panel at [facility] Increa se spironolactone to 2 po am (New Rx sent) Take B/P at home/work and also come to office next week for recheck Will await lab results before starting any antibiotic 09/03/2016 Appointment: Kaitlynn Mosley WPtel: [address] [place], [place] [phone] ACUTE ILLNESS 09/03/2016 Patient Education: Patient Medication Summary Completed 09/03/2016 Visit Diagnosis Plan: Low back pain Discussion: Celebr ex BID PT Continue stretches at home L/S xray Follow Up: 1 months ICD-9 : 724.2 ICD-10 : M54.5 07/08/2016 Appointment: Jessica Gee WPtel: [address] [place] [address] ACUTE ILLNESS 07/08/2016 Patient Education: Patient Medication Summary Completed 07/08/2016 Care Plan: X-RAY EXAM L-S SPINE 2/3 VWS LOINC : 70806-6 Pending 07/08/2016 Visit Plan: Supportive care. Rest, Fluid s, Tylenol/Motrin prn fever or bodyaches. Notify if worsening symptoms.New toothebrush in 5 days 06/21/2016 Visit NOS Plan: Plan Notes: Supportive care. Rest, Fluids... 06/21/2016 Visit Diagnosis Plan: Acute pharyngitis, unspecified D iscussion: Strep Negative Supportive Care May use zyrtec 10mg q HS ICD-9 : 462 ICD-10 : J02.9 06/21/2016 Appointment: Jessica Gee WPtel: [address] [place] [address] ACUTE ILLNESS 06/21/2016 Patient Education: Patient Medication Summary Completed 06/21/2016 Visit Plan: No pulseox last week to comp are to today, but she does sound diminished today Studies as above ordered Continue cefdinir until results received Increase albuterol treatments to q4-6hrs PRN Continue supportive care 02/23/2016 Appointment: Janiya Gregorio [address] [place] [address] ACUTE ILLNESS 02/23/2016 Patient Education: Patient Medication Summary Completed 02/23/2016 Care Plan: CHEST X-RAY 2VW FRONTAL&LATL LOINC : 07156-1 Pending 02/23/2016 Visit Plan: Saline nasal flushes prn. Ty lenol/Motrin prn headache. Notify if persists/symptoms worsening. 02/16/2016 Appointment: Jessica Gee WPtel: [address] [place] [address] ACUTE ILLNESS 02/16/2016 Patient Education: Patient Medication Summary Completed 02/16/2016 Visit Plan: Discussed labs Continue Topr ol at 200 mg PO daily Increase Aciphex to BID Notify if increase of Aciphex does not give relief. Repeat PT/INR in 2 weeks. 02/11/2015 Appointment: Suki Barahona WPtel: [address] [place] [address] 02/10 confirmed ~sl FOLLOW UP 02/11/2015 Patient Education: Patient Medication Summary Completed 02/11/2015 Patient Education: Patient Medication Summary Completed 02/06/2015 Care Plan: POC PROTIME/INR LOINC : 14704 -6 Pending 02/06/2015 Visit Plan: Increase Toprol XL 200 mg to one full tablet daily (is currently taking only 1/2 tablet) To for EKG today Monitor daily BP Notify of any changes- increased numbness, weakness, headache etc. 01/28/2015 Appointment: Suki Barahona WPtel: [address] [place] [address] ACUTE ILLNESS 01/28/2015 Patient Education: Patient Medication Summary Completed 01/28/2015 Visit Plan: ERx Amoxicillin and Flonase Nasal saline, humidified air Facial heat or cold packs for comfort Increase fluids/rest Discussed s/s of worsening, go to over weekend if these occur. 12/06/2014 Appointment: Kaitlynn Mosley WPtel: [address] [place] [address] ACUTE ILLNESS 12/06/2014 Patient Education: Patient Medication Summary Completed 12/06/2014 Appointment: Kaitlynn Mosley WPtel: [address] [place] [address] ACUTE ILLNESS 08/09/2014 Patient Education: Patient Medication Summary Completed 08/09/2014 Appointment: Suki Barahona WPtel: [address] [place] [address] ACUTE ILLNESS 06/24/2014 Patient Education: Patient Medication Summary Completed 06/24/2014 Appointment: Suki Barahona WPtel: [address] [place] [address] ACUTE ILLNESS 03/22/2014 Patient Education: Patient Medication Summary Completed 03/22/2014 Patient Education: [employer] - Antibi otics, Analgesics 18+, Oral Contraceptives F 18+ Completed 03/22/2014 Appointment: Suki Barahona WPtel: [address] [place] [address] [place] FOLLOW UP 03/05/2014 Patient Education: Patient Medication Summary Completed 03/05/2014 Visit Plan: Saline nasal flushes prn. Ty lenol/Motrin prn headache. Notify if persists/symptoms worsening. Restart flonase 01/16/2014 Appointment: Jessica Gee WPtel: [address] [place] [address] ACUTE ILLNESS 01/16/2014 Patient Education: Patient Medication Summary Completed 01/16/2014 Appointment: Jessica Gee WPtel: [address] [place] [address] 10/19/2013 Patient Education: Patient Medication Summary Completed 10/19/2013 Appointment: Jessica Gee WPtel: [address] [place] [address] 08/08 patient canceled appt and said will call back to angela evelin FOLLOW UP 08/09/2013 Visit Plan: Increase Coumadin to 6mg M-F and stay on 5mg Sat, Sun Add lipids to labs Check PT/INR in 3wks Continue metfromin at current dose and accuchecks 05/10/2013 Appointment: Jessica Gee WPtel: [address] [place] [address] 05/09 FOLLOW UP 05/10/2013 Patient Education: Patient Medication Summary Completed 05/10/2013 Visit Plan: Saline nasal flushes prn. Ty lenol/Motrin prn headache. Notify if persists/symptoms worsening. 04/17/2013 Appointment: Jessica Gee WPtel: [address] [place] [address] ACUTE ILLNESS 04/17/2013 Patient Education: Patient Medication Summary Completed 04/17/2013 Appointment: Suki Barahona WPtel: [address] [place] [address] FOLLOW UP 03/05/2013 Patient Education: Patient Medication Summary Completed 03/05/2013 Appointment: Jun Suki Edison WPtel: [address] [place] [address] FOLLOW UP 03/02/2013 Patient Education: Patient Medication Summary Completed 03/02/2013 Appointment: JunSuki Edison WPtel: [address] [place] [address] ACUTE ILLNESS 03/01/2013 Patient Education: Patient Medication Summary Completed 03/01/2013 Visit Plan: Continue metformin and accuc hecks Add fish oil 1gram daily Check HbA1C, CMP in 2mos then fwup 02/22/2013 Appointment: Jessica Gee WPtel: [address] [place] [address] 02/21 [facility] FOLLOW UP 02/22/2013 Patient Education: Patient Medication Summary Completed 02/22/2013 Visit Plan: Start Metformin Start Accuch ecks daily alternating times Will go for dilated eye exam once BS more stabilized Diabetic foot care discussed Diabetic diet info given 01/11/2013 Appointment: Jessica Gee WPtel: [address] [place] [address] FOLLOW UP 01/11/2013 Patient Education: Patient Medication Summary Completed 01/11/2013 Appointment: Kaitlynn Mosley WPtel: [address] [place] [address] ACUTE ILLNESS 11/03/2012 Patient Education: Patient Medication Summary Completed 11/03/2012 Appointment: Xiomara Rodriguez WPtel: [address] [place] [address] ACUTE ILLNESS 05/04/2012 Patient Education: Patient Medication Summary Completed 05/04/2012 Visit Plan: pt reports that she always g ets yeast infections. Discussed that the antifungal can cause problems/increased bleeding with Coumdin. Pt. will start with probiotics and only take the Diflucan if needed. Cefdinir. 10/11/2011 Appointment: Xiomara Rodriguez WPtel: [address] [place] [address] ACUTE ILLNESS 10/11/2011 Patient Education: Patient Medication Summary Completed 10/11/2011 Appointment: Xiomara Rodriguez WPtel: [address] [place] [address] FOLLOW UP 06/23/2011 Patient Education: Patient Medication Summary Completed 06/23/2011 Visit Plan: Will prescribe an antibiotic and diflucan. Pt. reports that she frequently gets yeast infection. Discussed that she will notify if any symptoms persist. Pt. reports that her relatives have recently been hospitalized with pneumonia. 06/14/2011 Appointment: Xiomara Rodriguez WPtel: [address] [place] [address] ACUTE ILLNESS 06/14/2011 Patient Education: Patient Medication Summary Completed 06/14/2011 Visit Plan: sample of veramyst. Cefuroxi me axetil. Pt. will focus on hydration and rest. Discussed comfort measures and monitoring for worsening symptoms. 12/02/2010 Appointment: Xiomara Rodriguez WPtel: [address] [place] [address] ACUTE ILLNESS 12/02/2010 Patient Education: Patient Medication Summary Completed 12/02/2010 Visit Plan: Change HCTZ to spironolacton e will start zocor in 1 mo BP med in 1mo 11/12/2010 Appointment: Jessica Gee WPtel: [address] [place] [address] FOLLOW UP 11/12/2010 Patient Education: Patient Medication Summary Completed 11/12/2010 Appointment: Jessica Gee WPtel: [address] [place], [place] [address] BP CHECK 10/26/2010 Patient Education: Patient Medication Summary Completed 10/26/2010 Visit Plan: Continue Toprol at bedtime A dd HCTZ in AM BP check in 2wks Fasting lab with next PT/INR 10/13/2010 Appointment: Jessica Gee WPtel: [address] [place], [place] [address] FOLLOW UP 10/13/2010 Patient Education: Patient Medication Summary Completed 10/13/2010 Visit Plan: Cont abx. Fwup with surgery as scheduled 06/24/2010 Appointment: Jessica Gee WPtel: [address] [place] [address] Follow Up 06/24/2010 Patient Education: Patient Medication Summary Completed 06/24/2010 Appointment: Jessica Gee WPtel: [address] [place] [address] Follow Up 06/22/2010 Visit Plan: pt is [...] to subside. 06/08/2010 Appointment: Xiomara Rodriguez WPtel: [address] [place] [address] ACUTE ILLNESS 06/08/2010 Patient Education: Patient Medication Summary Completed 06/08/2010 Appointment: Xiomara Rodriguez WPtel: [address] [place] [address] FOLLOW UP 06/01/2010 Appointment: Jessica Gee WPtel: [address] [place] [address] 05/29/2010 Patient Education: Patient Medication Summary Completed 05/29/2010 Appointment: Xiomara Rodriguez WPtel: [address] [place] [address] ACUTE ILLNESS 05/20/2010 Patient Education: Patient Medication Summary Completed 05/20/2010 Appointment: Jessica Gee WPtel: [address] [place] [address] BP CHECK 05/13/2010 Patient Education: Patient Medication Summary Completed 05/13/2010 Visit Plan: Increase Lisinopril hct to 2 0/12.5mg q AM Use atarax prn and routinely at bedtime and Medrol dose pack BP check in 3wks Pt defers stress test at this time 04/30/2010 Appointment: Jessica Gee WPtel: [address] [place], [place] [id number] ACUTE ILLNESS 04/30/2010 Patient Education: Patient Medication Summary Completed 04/30/2010 Appointment: Jesscia Gee WPtel: [address] [place] [address] BP CHECK 02/27/2010 Patient Education: Patient Medication Summary Completed 02/27/2010 Visit Plan: Cont Toprol Add Altace 10mg QD Cont Wellbutrin Will likely add SSRI after BP stable BP check in 2wks 01/22/2010 Appointment: Jessica Gee WPtel: [address] [place], [place] [phone] ACUTE ILLNESS 01/22/2010 Patient Education: Patient Medication Summary Completed 01/22/2010 Referral: Rupa Raines WPtel: [address] [id number] [place] Referral Completed Referral: Neymar Alberts WPtel: [address] [facility] [place] Referral Initiated Instructions Comment . Tick panel at [facility] Increase spironolactone to 2 po am [...]
--- OUTSIDE RECORDS SUMMARY | 2019-09-10 03:05 | XMS REPORT | CCD ---
Author Author Nava Gee D.O. Organization [facility] Address [address] [place] [address] Phone Care Team Providers Care Named Account Executive Name Role Phone Jessica Gee D.O., PP Unavailable CCM Unavailable Summary Purpose Interface Exchange Insurance Providers Payer name Policy type / Coverage type Covered constitution party ID Effective Begin Date Effective End Date Blue Cross Blue Shield Blue Cross/Blue Shield [id number] Unknown Family History Family History data not found Social History Social History Element Codes Description Effective Dates Tobacco history SNOMED CT: 433950236 Never smoker 10/13/2010 Allergies, Adverse Reactions, Alerts [...] findings ICD-9: V70.0 ICD-10: Z00.00 12/16/2017 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 ICD-9: V58.6 1 [...] Fill Instructions warfarin 6 mg tablet RxNorm: 220825 1 Tablet(s) Oral QD then on Tue/ take along with Warfarin 1mg (7mg) 05/09/2019 No Stop Date Active Jardiance 25 mg tablet RxNorm: 9174158 1 Tablet(s) Oral QD 05/09/19 20 05/23/2019 Active Jardiance 25 mg tablet RxNorm: 0299298 1 Tablet(s) Oral QAM 020 09/06/2019 Active Jardiance 10 mg tablet RxNorm: 8437860 1 Tablet(s) Oral QD 05/09/19 No Stop Date Active warfarin 1 mg tablet RxNorm: 721970 1 Tablet(s) Oral on Tue and with 6mg tablet (total 7mg) 05/09/2019 No Stop Date Active warfarin 5 mg tablet RxNorm: 513801 1 Tablet(s) Oral QD 05/02/2019 Active warfarin 1 mg tablet RxNorm: 601479 TAKE 1 TABLET BY [facility] ONCE DAILY. TAKE AN ADDITIONAL TABLET ON TUESDAY AND Tuesday05/02/2019 05/08/2019 Inactiv e Coumadin 5 mg tablet RxNorm: 620586 TAKE 1 TABLET BY MOUTH ONCE DAILY 04/02/2019 05/02/2019 Inactive celecoxib 200 mg capsule RxNorm: 869394 TAKE 1 CAPSULE BY MOUTH TWICE DAILY 03/20/2019 06/17/2019 Active metformin ER 500 mg tablet,extended release 24 hr RxNorm: 86 0975 TAKE 1 TABLET BY MOUTH TWICE DAILY 03/19/2019 05/17/2019 Active pravastatin 40 mg tablet RxNorm: 184335 TAKE 1 TABLET BY MOUTH ONCE DAILY 03/19/2019 06/16/2019 Active Coumadin 5 mg tablet RxNorm: 799201 TAKE 1 TABLET BY MOUTH ONCE DAILY 02/28/2019 04/01/2019 Inactive warfarin 1 mg tablet RxNorm: 872236 TAKE 1 TABLET BY [facility] ONCE DAILY. TAKE AN ADDITIONAL TABLET ON TUESDAY AND Tuesday02/28/2019 05/01/2019 Inactiv e omeprazole 40 mg capsule,delayed release RxNorm: 299914 TAKE 1 CAPSULE BY MOUTH TWICE DAILY 02/19/2019 No Stop Date Active metformin ER 500 mg tablet,extended release 24 hr RxNorm: 86 0975 1 Tablet(s) PO BID 02/19/2019 03/18/2019 Inactive metformin ER 500 mg tablet,extended release 24 hr RxNorm: 86 0975 1 Tablet(s) PO BID 01/15/2019 02/13/2019 Inactive alprazolam 0.25 mg tablet RxNorm: 462868 1 Tablet(s) Oral prior to flight 01/03/2019 No Stop Date Active omeprazole 40 mg capsule,delayed release RxNorm: 823003 TAKE 1 CAPSULE BY MOUTH TWICE DAILY 12/20/2018 02/18/2019 Inactive metformin ER 500 mg tablet,extended release 24 hr RxNorm: 86 0975 1 Tablet(s) PO BID 12/11/2018 01/09/2019 Inactive pravastatin 40 mg tablet RxNorm: 774892 TAKE 1 TABLET BY MOUTH ONCE DAILY 12/11/2018 03/18/2019 Inactive Coumadin 5 mg tablet RxNorm: 688124 1 Tablet(s) PO QD 11/27/201809/2018 Inactive metformin ER 500 mg tablet,extended release 24 hr RxNorm: 86 0975 1 Tablet(s) PO BID 10/02/2018 11/30/2018 Inactive warfarin 1 mg tablet RxNorm: 051040 TAKE 1 TABLET BY [facility] ONCE DAILY. TAKE AN ADDITIONAL TABLET ON TUESDAY AND Tuesday10/02/2018 02/27/2019 Inactiv e Bactrim DS 800 mg-160 mg tablet RxNorm: 815332 1 Tablet(s) PO BID 0 09/27/2018 10/03/2018 Inactive warfarin 5 mg tablet RxNorm: 324491 1 Tablet(s) PO QD 09/27/201810/2018 Inactive Toprol XL 200 mg tablet,extended release RxNorm: 707692 1 Table t(s) PO QD 09/18/2018 03/16/2019 Inactive omeprazole 40 mg capsule,delayed release RxNorm: 926602 TAKE 1 CAPSULE BY MOUTH TWICE DAILY 09/11/2018 12/19/2018 Inactive Coumadin 5 mg tablet RxNorm: 169727 1 Tablet(s) PO QD 08/21/201811/2018 Inactive metformin ER 500 mg tablet,extended release 24 hr RxNorm: 86 0975 1 Tablet(s) PO BID 07/31/2018 09/28/2018 Inactive omeprazole 40 mg capsule,delayed release RxNorm: 119131 TAKE 1 CAPSULE BY MOUTH TWICE DAILY 06/27/2018 09/10/2018 Inactive metformin ER 500 mg tablet,extended release 24 hr RxNorm: 86 0975 Tablet(s) 1 Tablet(s) PO BID 06/27/2018 07/31/2018 Inactive Toprol XL 200 mg tablet,extended release RxNorm: 830560 1 Table t(s) PO QD 06/14/2018 09/17/2018 Inactive Coumadin 5 mg tablet RxNorm: 365254 1 Tablet(s) PO QD 06/14/201804/2018 Inactive metformin ER 500 mg tablet,extended release 24 hr RxNorm: 86 0975 Tablet(s) 1 Tablet(s) PO BID 05/22/2018 06/26/2018 Inactive Coumadin 5 mg tablet RxNorm: 875400 TAKE 1 TABLET BY MOUTH ONCE DAILY 05/11/2018 06/14/2018 Inactive Lovenox 40 mg/0.4 mL subcutaneous syringe RxNorm: 490655 40 Mil ligram(s) SQ QD 05/05/2018 09/26/2018 Inactive amitriptyline 25 mg tablet RxNorm: 253907 1 Tablet(s) PO QHS fo r sleep/HAs 04/24/2018 10/20/2018 Inactive Carbolytic MaterialsTouch Ultra Test strips RxNorm: Test blood sugar sigrid y (Dx:E11.65) 04/24/2018 No Stop Date Active celecoxib 200 mg capsule RxNorm: 210975 1 Capsule(s) PO BID 019 10/20/2018 Inactive Celebrex 200 mg capsule RxNorm: 340248 TAKE 1 CAPSULE BY MOUTH ONCE DAILY 04/19/2018 04/23/2018 Inactive warfarin 1 mg tablet RxNorm: 666637 1 Tablet(s) PO QD a nd additional tablet on Mon & Thurs 04/14/2018 10/01/2018 Inactive Toprol XL 200 mg tablet,extended release RxNorm: 907770 TAKE 1 TABLET BY MOUTH ONCE DAILY 04/11/2018 06/14/2018 Inactive metformin ER 500 mg tablet,extended release 24 hr RxNorm: 86 0975 Tablet(s) 1 Tablet(s) PO BID 03/17/2018 05/21/2018 Inactive Coumadin 5 mg tablet RxNorm: 443129 TAKE 1 TABLET BY MOUTH ONCE DAILY 03/15/2018 05/10/2018 Inactive Lovenox 40 mg/0.4 mL subcutaneous syringe RxNorm: 007315 40 Mil ligram(s) SQ QD 01/27/2018 04/11/2018 Inactive omeprazole 40 mg capsule,delayed release RxNorm: 345837 TAKE 1 CAPSULE BY MOUTH TWICE DAILY 01/23/2018 06/26/2018 Inactive pravastatin 40 mg tablet RxNorm: 216817 TAKE 1 TABLET BY MOUTH ONCE DAILY 01/23/2018 12/10/2018 Inactive metformin ER 500 mg tablet,extended release 24 hr RxNorm: 86 0975 Tablet(s) 1 Tablet(s) PO BID 01/16/2018 01/15/2018 Inactive Toprol XL 200 mg tablet,extended release RxNorm: 673086 TAKE 1 TABLET BY MOUTH ONCE DAILY 01/16/2018 04/10/2018 Inactive Coumadin 5 mg tablet RxNorm: 061292 TAKE 1 TABLET BY MOUTH ONCE DAILY 01/06/2018 03/14/2018 Inactive Celebrex 200 mg capsule RxNorm: 936889 1 Capsule(s) PO BID 12/28/19 18 03/26/2018 Inactive metformin ER 500 mg tablet,extended release 24 hr RxNorm: 86 0975 1 Tablet(s) PO BID Needs APPT 12/21/2017 01/16/2018 Inactive omeprazole 40 mg capsule,delayed release RxNorm: 892283 TAKE 1 CAPSULE BY MOUTH TWICE DAILY 11/02/2017 01/22/2018 Inactive Celebrex 200 mg capsule RxNorm: 291074 1 Capsule(s) PO QD 11/01/2017 12/26/2017 Inactive Coumadin 5 mg tablet RxNorm: 483521 Tablet(s) TAKE ONE TABLET BY MOUTH ONCE DAILY. 10/31/2017 12/29/2017 Inactive warfarin 1 mg tablet RxNorm: 033216 1 Tablet(s) PO QD 10/31/201703/22 Inactive spironolactone 25 mg tablet RxNorm: 949217 TAKE TWO TAB LETS BY MOUTH IN THE MORNING 10/31/2017 04/23/2018 Inactive metformin ER 500 mg tablet,extended release 24 hr RxNorm: 86 0975 1 Tablet(s) PO BID Needs updated fasting lab 10/20/2017 12/21/2017 Inactive Medrol (Dale) 4 mg tablets in a dose pack RxNorm: 951307 Tablet(s) PO take as directed 10/12/2017 12/15/2017 Inactive Celebrex 200 mg capsule RxNorm: 960232 1 Capsule(s) PO QD 10/03/2017 10/02/2017 Inactive spironolactone 25 mg tablet RxNorm: 505327 TAKE TWO TAB LETS BY MOUTH IN THE MORNING 09/19/2017 10/30/2017 Inactive Zithromax Z-Dale 250 mg tablet RxNorm: 066896 Tablet(s) PO take as directed 09/16/2017 10/11/2017 Inactive Medrol (Dale) 4 mg tablets in a dose pack RxNorm: 468168 Tablet(s) take as directed PO 09/16/2017 10/11/2017 Inactive doxycycline hyclate 100 mg tablet RxNorm: 9889000 1 Tablet(s) PO BI D 09/16/2017 09/15/2017 Inactive doxycycline hyclate 100 mg tablet RxNorm: 7047081 1 Tablet(s) PO BI D 09/16/2017 09/25/2017 Inactive Tessalon Perles 100 mg capsule RxNorm: 154382 1 Capsule(s) PO T ID as needed 09/16/2017 12/15/2017 Inactive warfarin 1 mg tablet RxNorm: 322400 1 Tablet(s) PO QD 09/06/201710/19 Inactive Coumadin 5 mg tablet RxNorm: 076144 Tablet(s) TAKE ONE TABLET BY MOUTH ONCE DAILY. 09/06/2017 10/31/2017 Inactive Toprol XL 200 mg tablet,extended release RxNorm: 068051 1 Table t(s) PO QD 2017 01/02/2018 Inactive warfarin 1 mg tablet RxNorm: 625808 1 Tablet(s) PO QD DUE FOR L ABS AUGUST 12 08/29/2017 09/06/2017 Inactive Coumadin 5 mg tablet RxNorm: 121158 Tablet(s) TAKE ONE TABLET BY MOUTH ONCE DAILY. DUE FOR PT/INR AUGUST 12 08/29/2017 09/06/2017 Inactive Coumadin 5 mg tablet RxNorm: 863605 Tablet(s) TAKE ONE TABLET BY MOUTH ONCE DAILY. DUE FOR PT/INR AUGUST 12 08/01/2017 08/29/2017 Inactive warfarin 1 mg tablet RxNorm: 362331 1 Tablet(s) PO QD DUE FOR L ABS AUGUST 12 08/01/2017 08/29/2017 Inactive scopolamine 1 mg over 3 days transdermal patch RxNorm: 03409 2 1 TD take off in 72 hours. 08/01/2017 12/26/2017 Inactive pravastatin 40 mg tablet RxNorm: 042260 Tablet(s) TAKE ONE TABLET BY MOUTH ONCE DAILY 07/07/2017 01/02/2018 Inactive Coumadin 5 mg tablet RxNorm: 536372 Tablet(s) TAKE ONE TABLET BY MOUTH ONCE DAILY. DUE FOR PT/INR. 06/29/2017 08/01/2017 Inactive warfarin 1 mg tablet RxNorm: 127959 1 Tablet(s) PO QD 06/29/201707/19 Inactive Coumadin 5 mg tablet RxNorm: 114754 TAKE ONE TABLET BY MOUTH ONCE DAILY. DUE FOR PT/INR. 05/30/2017 06/29/2017 Inactive omeprazole 40 mg capsule,delayed release RxNorm: 730791 1 Capsu le(s) PO BID 05/30/2017 08/27/2017 Inactive Celebrex 200 mg capsule RxNorm: 522060 1 Capsule(s) PO QD 05/23/2017 10/03/2017 Inactive metformin ER 500 mg tablet,extended release 24 hr RxNorm: 86 0975 TAKE ONE TABLET BY MOUTH TWICE DAILY 05/20/2017 10/20/2017 Inactive Coumadin 5 mg tablet RxNorm: 601477 1 Tablet(s) PO QD due for PT/IN R 04/25/2017 05/24/2017 Inactive warfarin 1 mg tablet RxNorm: 882852 1 Tablet(s) PO QD due for l abs this week 03/16/2017 06/29/2017 Inactive omeprazole 40 mg capsule,delayed release RxNorm: 928958 1 Capsu le(s) PO BID 03/16/2017 05/30/2017 Inactive Celebrex 200 mg capsule RxNorm: 602935 1 Capsule(s) PO BID as n eeded for pain 03/16/2017 05/22/2017 Inactive Coumadin 5 mg tablet RxNorm: 866089 1 Tablet(s) PO QD due for PT/IN R 03/16/2017 04/14/2017 Inactive Celebrex 200 mg capsule RxNorm: 597273 1 Capsule(s) PO BID as n eeded for pain 02/09/2017 03/15/2017 Inactive Toprol XL 200 mg tablet,extended release RxNorm: 568747 1 Table t(s) PO QD 02/08/2017 2017 Inactive Celebrex 200 mg capsule RxNorm: 973416 1 Capsule(s) PO BID as n eeded for pain 01/14/2017 02/08/2017 Inactive omeprazole 40 mg capsule,delayed release RxNorm: 569987 1 Capsu le(s) PO BID 01/12/2017 03/16/2017 Inactive Coumadin 5 mg tablet RxNorm: 874171 1 Tablet(s) PO QD 12/15/201602/19 Inactive warfarin 1 mg tablet RxNorm: 366342 1 Tablet(s) PO QD 12/15/201602/19 Inactive metformin ER 500 mg tablet,extended release 24 hr RxNorm: 86 0975 Tablet(s) TAKE ONE TABLET BY MOUTH TWICE DAILY 11/29/2016 02/26/2017 Inactive omeprazole 40 mg capsule,delayed release RxNorm: 265912 1 Capsu le(s) PO BID 11/29/2016 12/28/2016 Inactive pravastatin 40 mg tablet RxNorm: 628041 Tablet(s) TAKE ONE TABLET BY MOUTH ONCE DAILY 11/19/2016 07/07/2017 Inactive omeprazole 40 mg capsule,delayed release RxNorm: 346752 1 Capsu le(s) PO BID 10/19/2016 10/18/2016 Inactive omeprazole 40 mg capsule,delayed release RxNorm: 555051 1 Capsu le(s) PO BID 10/19/2016 11/17/2016 Inactive pantoprazole 40 mg tablet,delayed release RxNorm: 298789 1 Tabl et(s) PO QD 09/30/2016 10/18/2016 Inactive pantoprazole 40 mg tablet,delayed release RxNorm: 721940 1 Tabl et(s) PO QD 09/30/2016 09/29/2016 Inactive Zofran ODT 4 mg disintegrating tablet RxNorm: 302588 1 Tablet(s) PO Q4H as needed for nausea 09/15/2016 01/02/2017 Inactive Coumadin 5 mg tablet RxNorm: 759548 1 Tablet(s) PO QD 09/14/201611/20 Inactive warfarin 1 mg tablet RxNorm: 276816 1 Tablet(s) PO QD 09/14/201611/20 Inactive spironolactone 25 mg tablet RxNorm: 078721 2 Tablet(s) PO QAM 09/0301/02/2017 Inactive Wellbutrin XL 300 mg 24 hr tablet, extended release RxNorm: 717751 TAKE ONE TABLET BY MOUTH ONCE DAILY 08/26/2016 12/26/2017 Inactive Toprol XL 200 mg tablet,extended release RxNorm: 304017 1 Table t(s) PO QD 07/28/2016 02/08/2017 Inactive metformin ER 500 mg tablet,extended release 24 hr RxNorm: 86 0975 Tablet(s) TAKE ONE TABLET BY MOUTH TWICE DAILY 07/15/2016 11/29/2016 Inactive cyclobenzaprine 5 mg tablet RxNorm: 318405 1 Tablet(s) PO QHS f or spasm 07/08/2016 08/06/2016 Inactive Celebrex 200 mg capsule RxNorm: 1 Capsule(s) PO BID 07/08/2016 Inactive spironolactone 25 mg tablet RxNorm: 392944 1 Tablet(s) PO QAM 07/0609/02/2016 Inactive Wellbutrin XL 300 mg 24 hr tablet, extended release RxNorm: 158401 TAKE ONE TABLET BY MOUTH ONCE DAILY 06/15/2016 07/14/2016 Inactive Coumadin 5 mg tablet RxNorm: 085742 1 Tablet(s) PO QD 06/08/201608/20 Inactive warfarin 1 mg tablet RxNorm: 849772 1 Tablet(s) PO QD 06/08/201608/20 Inactive Toprol XL 200 mg tablet,extended release RxNorm: 588344 TAKE ONE TABLET BY MOUTH ONCE DAILY 04/26/2016 07/28/2016 Inactive pravastatin 40 mg tablet RxNorm: 040106 TAKE ONE TABLET BY MOUT H ONCE DAILY 04/19/2016 10/15/2016 Inactive Coumadin 5 mg tablet RxNorm: 061235 1 Tablet(s) PO QD 03/09/201605/19 Inactive warfarin 1 mg tablet RxNorm: 016230 1 Tablet(s) PO QD 03/09/201605/19 Inactive metformin ER 500 mg tablet,extended release 24 hr RxNorm: 86 0975 TAKE ONE TABLET BY MOUTH TWICE DAILY 02/25/2016 07/15/2016 Inactive spironolactone 25 mg tablet RxNorm: 668156 TAKE ONE TAB LET BY MOUTH ONCE DAILY IN THE MORNING 02/25/2016 07/06/2016 Inactive prednisone 20 mg tablet RxNorm: 674787 1 Tablet(s) PO QAM 02/16/2016 02/20/2016 Inactive cefdinir 300 mg capsule RxNorm: 447288 2 Capsule(s) PO QD 02/16/2016 02/25/2016 Inactive Toprol XL 200 mg tablet,extended release RxNorm: 653768 TAKE ONE TABLET BY MOUTH ONCE DAILY 01/26/2016 04/24/2016 Inactive Aciphex 20 mg tablet,delayed release RxNorm: 822357 1 Tablet(s) PO BID 12/24/2015 09/29/2016 Inactive Omeprazole and Pepci d have not helped. Coumadin 5 mg tablet RxNorm: 241388 1 Tablet(s) PO QD 12/10/201502/19 Inactive Coumadin 5 mg tablet RxNorm: 650458 1 Tablet(s) PO QD 12/08/201511/20 Inactive Toprol XL 200 mg tablet,extended release RxNorm: 869565 TAKE ONE TABLET BY MOUTH ONCE DAILY 11/20/2015 01/18/2016 Inactive warfarin 1 mg tablet RxNorm: 988183 1 Tablet(s) PO QD 11/03/201502/19 Inactive pravastatin 40 mg tablet RxNorm: 741161 Tablet(s) TAKE ONE TABLET BY MOUTH ONCE DAILY 10/20/2015 01/17/2016 Inactive pravastatin 40 mg tablet RxNorm: 462428 TAKE ONE TABLET BY MOUT H ONCE DAILY 10/20/2015 10/19/2015 Inactive metformin ER 500 mg tablet,extended release 24 hr RxNorm: 86 0975 TAKE ONE TABLET BY MOUTH TWICE DAILY 10/03/2015 12/31/2015 Inactive Toprol XL 200 mg tablet,extended release RxNorm: 278728 TAKE ONE TABLET BY MOUTH ONCE DAILY 09/17/2015 11/15/2015 Inactive Coumadin 5 mg tablet RxNorm: 611060 1 Tablet(s) PO QD 09/02/201511/19 Inactive Wellbutrin XL 300 mg 24 hr tablet, extended release RxNorm: 155891 TAKE ONE TABLET BY MOUTH ONCE DAILY 08/01/2015 10/29/2015 Inactive Pepcid 20 mg tablet RxNorm: 019274 1 Tablet(s) PO BID as needed 05/24/2017 Inactive warfarin 1 mg tablet RxNorm: 500578 TAKE ONE TABLET BY MOUTH ON CE DAILY 07/08/2015 11/03/2015 Inactive pravastatin 40 mg tablet RxNorm: 762899 1 Tablet(s) PO QD 07/08/2015 10/05/2015 Inactive spironolactone 25 mg tablet RxNorm: 865399 TAKE ONE TAB LET BY MOUTH ONCE DAILY IN THE MORNING 06/13/2015 09/10/2015 Inactive Coumadin 5 mg tablet RxNorm: 661157 1 Tablet(s) PO QD 06/05/201508/19 Inactive Wellbutrin XL 300 mg 24 hr tablet, extended release RxNorm: 936326 TAKE ONE TABLET BY MOUTH ONCE DAILY 05/16/2015 09/26/2018 Inactive Wellbutrin XL 300 mg 24 hr tablet, extended release RxNorm: 060081 TAKE ONE TABLET BY MOUTH ONCE DAILY 05/16/2015 06/14/2015 Inactive metformin ER 500 mg tablet,extended release 24 hr RxNorm: 86 0975 TAKE ONE TABLET BY MOUTH TWICE DAILY 05/16/2015 08/13/2015 Inactive pravastatin 40 mg tablet RxNorm: 444119 1 Tablet(s) PO QD 04/10/2015 07/07/2015 Inactive Aciphex 20 mg tablet,delayed release RxNorm: 852431 1 Tablet(s) PO BID 03/07/2015 09/02/2015 Inactive Omeprazole and Pepci d have not helped. Toprol XL 200 mg tablet,extended release RxNorm: 912155 1 Table t(s) PO QD 03/05/2015 08/31/2015 Inactive Aciphex 20 mg tablet,delayed release RxNorm: 749440 1 Tablet(s) PO QD 03/04/2015 03/06/2015 Inactive Omeprazole and Pepci d have not helped. Coumadin 5 mg tablet RxNorm: 197624 1 Tablet(s) PO QD 02/28/201511/2015 Inactive Aciphex 20 mg tablet,delayed release RxNorm: 901320 1 Tablet(s) PO BID 02/11/2015 03/03/2015 Inactive Omeprazole and Pepci d have not helped. metformin ER 500 mg tablet,extended release 24 hr RxNorm: 86 0975 1 Tablet(s) PO BID 01/10/2015 04/09/2015 Inactive pravastatin 40 mg tablet RxNorm: 630218 1 Tablet(s) PO QD 01/06/2015 04/05/2015 Inactive Wellbutrin XL 300 mg 24 hr tablet, extended release RxNorm: 188241 TAKE ONE TABLET BY MOUTH ONCE DAILY 12/19/2014 02/16/2015 Inactive amoxicillin 500 mg capsule RxNorm: 961312 2 Capsule(s) PO BID 12/0612/15/2014 Inactive Flonase 50 mcg/actuation nasal spray,suspension RxNorm: 8963 23 2 [place] each nostril NASAL QD 12/06/2014 03/05/2015 Inactive Coumadin 5 mg tablet RxNorm: 618566 1 Tablet(s) PO QD 11/28/201410/2014 Inactive spironolactone 25 mg tablet RxNorm: 095250 1 Tablet(s) PO QAM 11/2602/23/2015 Inactive Coumadin 5 mg tablet RxNorm: 648123 1 Tablet(s) PO QD 1 Tablet(s) PO QD- NEED TO CHECK LABS 10/30/2014 11/28/2014 Inactive warfarin 1 mg tablet RxNorm: 431491 1 Tablet(s) PO QD 10/30/201409/2015 Inactive Aciphex 20 mg tablet,delayed release RxNorm: 179356 1 Tablet(s) PO QD 10/02/2014 02/10/2015 Inactive Omeprazole and Pepci d have not helped. Coumadin 5 mg tablet RxNorm: 398742 1 Tablet(s) PO QD 1 Tablet(s) PO QD- NEED TO CHECK LABS 09/30/2014 10/30/2014 Inactive pravastatin 40 mg tablet RxNorm: 377952 1 Tablet(s) PO QD 09/25/2014 01/06/2015 Inactive warfarin 1 mg tablet RxNorm: 550526 1 Tablet(s) PO QD T [place] ONE TABLET BY MOUTH DIRECTED ON MON AND THUR 08/28/2014 10/29/2014 Inactive metformin ER 500 mg tablet,extended release 24 hr RxNorm: 86 0975 1 Tablet(s) PO BID 08/28/2014 01/10/2015 Inactive amoxicillin 875 mg tablet RxNorm: 010105 1 Tablet(s) PO BID 015 08/18/2014 Inactive Toprol XL 200 mg tablet,extended release RxNorm: 691989 TAKE ONE TABLET BY MOUTH ONCE DAILY 07/22/2014 03/05/2015 Inactive Coumadin 5 mg tablet RxNorm: 537826 1 Tablet(s) PO QD 07/01/201409/18 Inactive amoxicillin 875 mg tablet RxNorm: 042556 1 Tablet(s) PO BID 015 06/30/2014 Inactive pravastatin 40 mg tablet RxNorm: 078864 1 Tablet(s) PO QD needs fasting labs 06/19/2014 09/25/2014 Inactive Coumadin 5 mg tablet RxNorm: 385062 1 Tablet(s) PO QD 1 Tablet(s) PO QD TAKE ONE TABLET BY MOUTH ONCE DAILY-need labs 05/28/2014 07/01/2014 Inactive warfarin 1 mg tablet RxNorm: 087779 1 Tablet(s) PO As Directed 05/1908/28/2014 Inactive pravastatin 40 mg tablet RxNorm: 933127 1 Tablet(s) PO QD needs fasting labs 05/14/2014 06/19/2014 Inactive metformin ER 500 mg tablet,extended release 24 hr RxNorm: 86 0975 1 Tablet(s) PO BID 04/25/2014 08/28/2014 Inactive spironolactone 25 mg tablet RxNorm: 000138 1 Tablet(s) PO QAM 04/2511/26/2014 Inactive Coumadin 5 mg tablet RxNorm: 915922 1 Tablet(s) PO QD 1 Tablet(s) PO QD TAKE ONE TABLET BY MOUTH ONCE DAILY 04/23/2014 05/28/2014 Inactive Coumadin 5 mg tablet RxNorm: 075013 1 Tablet(s) PO QD 1 Tablet(s) PO QD TAKE ONE TABLET BY MOUTH ONCE DAILY 03/22/2014 04/20/2014 Inactive Tessalon Perles 100 mg capsule RxNorm: 774114 1 Capsule(s) PO TID 0 03/22/2014 03/28/2014 Inactive cefdinir 300 mg capsule RxNorm: 395549 2 Capsule(s) PO QD 03/22/2014 03/31/2014 Inactive Medrol (Dale) 4 mg tablets in a dose pack RxNorm: 750361 Tablet(s) PO as directed 03/05/2014 08/08/2014 Inactive Coumadin 5 mg tablet RxNorm: 832043 1 Tablet(s) PO QD 1 Tablet(s) PO QD TAKE ONE TABLET BY MOUTH ONCE DAILY 02/19/2014 03/20/2014 Inactive pravastatin 40 mg tablet RxNorm: 762130 1 Tablet(s) PO QD 02/04/2014 05/14/2014 Inactive Coumadin 5 mg tablet RxNorm: 086184 1 Tablet(s) PO QD T [place] ONE TABLET BY MOUTH ONCE DAILY 01/21/2014 02/19/2014 Inactive Medrol (Dale) 4 mg tablets in a dose pack RxNorm: 933044 Tablet(s) PO as directed 01/18/2014 03/04/2014 Inactive cefdinir 300 mg capsule RxNorm: 563983 2 Capsule(s) PO QD 01/16/2014 01/25/2014 Inactive metformin ER 500 mg tablet,extended release 24 hr RxNorm: 86 0975 1 Tablet(s) PO BID 12/17/2013 04/25/2014 Inactive Wellbutrin SR 150 mg tablet,sustained-release RxNorm: 171031 1 Tablet(s) PO BID 11/30/2013 02/27/2014 Inactive spironolactone 25 mg tablet RxNorm: 378651 1 Tablet(s) PO QAM 10/2204/25/2014 Inactive Macrobid 100 mg capsule RxNorm: 111598 1 Capsule(s) PO BID 10/20/19 14 10/25/2013 Inactive Macrobid 100 mg capsule RxNorm: 690448 1 Capsule(s) PO BID 10/20/19 14 10/18/2013 Inactive Toprol XL 100 mg tablet,extended release RxNorm: 553111 1 Table t(s) PO QD 10/15/2013 01/15/2014 Inactive Toprol XL 200 mg tablet,extended release RxNorm: 628800 1 Table t(s) PO QD 10/02/2013 07/22/2014 Inactive Wellbutrin XL 300 mg 24 hr tablet, extended release RxNorm: 688006 1 Tablet(s) PO QD 09/28/2013 12/19/2014 Inactive Aciphex 20 mg tablet,delayed release RxNorm: 565696 1 Tablet(s) PO QD 08/29/2013 10/02/2014 Inactive Omeprazole and Pepci d have not helped. Coumadin 5 mg tablet RxNorm: 849222 1 Tablet(s) PO QD 08/14/201307/20 Inactive Coumadin 5 mg tablet RxNorm: 783677 1 Tablet(s) PO QD 08/14/201305/2013 Inactive pravastatin 40 mg tablet RxNorm: 621370 1 Tablet(s) PO QD 07/24/2013 02/04/2014 Inactive warfarin 1 mg tablet RxNorm: 380193 1 Tablet(s) PO QD T [place] ONE TABLET BY MOUTH DIRECTED ON MON AND THUR 07/09/2013 05/28/2014 Inactive warfarin 5 mg tablet RxNorm: 380187 1 Tablet(s) PO QD T [place] ONE TABLET BY MOUTH EVERY DAY 06/08/2013 07/07/2013 Inactive spironolactone 25 mg tablet RxNorm: 862061 1 Tablet(s) PO QAM 05/3010/15/2013 Inactive clindamycin 300 mg capsule RxNorm: 479820 2 Capsule(s) PO TID 04/1704/30/2013 Inactive warfarin 5 mg tablet RxNorm: 962093 1 Tablet(s) PO QD 03/12/201305/20 Inactive azithromycin 250 mg tablet RxNorm: 190673 2 Tablet(s) PO QD 013 03/07/2013 Inactive metformin ER 500 mg tablet,extended release 24 hr RxNorm: 86 0975 1 Tablet(s) PO BID 02/22/2013 12/17/2013 Inactive spironolactone 25 mg tablet RxNorm: 187440 1 Tablet(s) PO QAM 01/2205/30/2013 Inactive metformin ER 500 mg tablet,extended release 24 hr RxNorm: 86 0977 1 Tablet(s) PO BID 01/11/2013 02/21/2013 Inactive pravastatin 40 mg tablet RxNorm: 785426 1 Tablet(s) PO QD 01/11/2013 07/24/2013 Inactive warfarin 5 mg tablet RxNorm: 944259 1 Tablet(s) PO QD 01/04/201302/19 Inactive warfarin 1 mg tablet RxNorm: 374937 Tablet(s) PO TAKE O NE TABLET BY MOUTH DIRECTED ON MON AND THUR 12/14/2012 07/08/2013 Inactive scopolamine 1.5 mg 72 hr Transderm Patch RxNorm: 583528 TD Apply 1 patch behind ear every 72 hours, replace after 3 days. 11/08/2012 01/15/2014 Inacti ve Pepcid 20 mg tablet RxNorm: 415632 1 Tablet(s) PO BID as needed 01/31/2013 Inactive Famvir 500 mg tablet RxNorm: 174587 1 Tablet(s) PO Q8H 11/03/2012 Inactive Aciphex 20 mg tablet,delayed release RxNorm: 845391 1 Tablet(s) PO QD 11/03/2012 05/01/2013 Inactive Omeprazole and Pepci d have not helped. gabapentin 300 mg capsule RxNorm: 323219 Capsule(s) PO TID 11/04/19 13 01/15/2014 Inactive warfarin 5 mg tablet RxNorm: 174238 1 Tablet(s) PO QD 11/02/201212/19 Inactive Wellbutrin XL 300 mg 24 hr tablet, extended release RxNorm: 023121 1 Tablet(s) PO QD 10/17/2012 04/30/2013 Inactive pravastatin 40 mg tablet RxNorm: 231895 Tablet(s) PO TA KE ONE TABLET BY MOUTH EVERY DAY. NEED FASTING LABS 09/18/2012 01/10/2013 Inactive Toprol XL 200 mg tablet,extended release RxNorm: 268657 Tablet(s) PO TAKE ONE TABLET BY MOUTH EVERY DAY 09/08/2012 10/01/2013 Inactive warfarin 5 mg tablet RxNorm: 150456 1 Tablet(s) PO QD 08/31/201210/19 Inactive pravastatin 40 mg tablet RxNorm: 787115 1 Tablet(s) PO QD Needs fasting labs 08/18/2012 09/16/2012 Inactive TAKE ONE TABLET BY M OUTH EVERY DAY warfarin 1 mg tablet RxNorm: 979176 1 Tablet(s) PO As directed on Mon and Th08/11/2012 12/13/2012 Inactive spironolactone 25 mg tablet RxNorm: 201556 1 Tablet(s) PO QAM 07/1110/08/2012 Inactive warfarin 5 mg tablet RxNorm: 895516 1 Tablet(s) PO QD 07/03/201208/19 Inactive Diflucan 100 mg tablet RxNorm: 701958 1 Tablet(s) PO QD 05/04/2012 Inactive Cipro 500 mg tablet RxNorm: 171564 1 Tablet(s) PO BID 05/04/201204/22 Inactive Aciphex 20 mg tablet,delayed release RxNorm: 064717 1 Tablet(s) PO QD 05/04/2012 07/02/2012 Inactive Omeprazole and Pepci d have not helped. warfarin 5 mg tablet RxNorm: 058451 1 Tablet(s) PO QD 05/02/201206/19 Inactive warfarin 5 mg tablet RxNorm: 041032 1 Tablet(s) PO QD 03/02/201204/21 Inactive Toprol XL 200 mg tablet,extended release RxNorm: 801152 1 Table t(s) PO QD 03/02/2012 05/30/2012 Inactive spironolactone 25 mg tablet RxNorm: 021453 1 Tablet(s) PO QAM 02/0707/11/2012 Inactive pravastatin 40 mg tablet RxNorm: 500563 Tablet(s) PO 01/31/201208/17 Inactive TAKE ONE TABLET BY MOUTH EVERY DAY pravastatin 40 mg tablet RxNorm: 463168 1 Tablet(s) PO QD 01/31/2012 08/18/2012 Inactive omeprazole 40 mg capsule,delayed release RxNorm: 311713 1 Capsule(s) PO QD for stomach 01/11/2012 11/02/2012 Inactive for stomach warfarin 5 mg tablet RxNorm: 034007 1 Tablet(s) PO QD 01/03/201202/18 Inactive warfarin 5 mg tablet RxNorm: 308515 1 Tablet(s) PO QD 12/03/201112/19 Inactive pravastatin 40 mg tablet RxNorm: 951110 1 Tablet(s) PO QD 11/25/2011 01/23/2012 Inactive cefdinir 300 mg Cap RxNorm: 063777 1 Capsule(s) PO BID 10/11/201103/2011 Inactive Culturelle 10 billion cell Cap RxNorm: 640462 1 Capsule(s) PO BID 0 10/11/2011 11/09/2011 Inactive Diflucan 100 mg Tab RxNorm: 715774 1 Tablet(s) PO QD 10/11/201110/19 Inactive Wellbutrin XL 300 mg 24 hr tablet, extended release RxNorm: 137021 1 Tablet(s) PO QD 09/14/2011 10/17/2012 Inactive pravastatin 40 mg tablet RxNorm: 120972 1 Tablet(s) PO QD 08/25/2011 11/25/2011 Inactive Coumadin 5 mg tablet RxNorm: 163599 Tablet(s) PO Take as direct ed by doctor. 07/07/2011 12/03/2011 Inactive Singulair 10 mg Tab RxNorm: 865816 1 Tablet(s) PO QD al lergy medication. (Please try to be consistent in dosing) 06/23/2011 01/15/2014 Inactive Diflucan 100 mg Tab RxNorm: 572225 1 Tablet(s) PO QD 06/14/201107/02 Inactive cefdinir 300 mg Cap RxNorm: 678079 1 Capsule(s) PO BID 06/14/201106/2011 Inactive pravastatin 40 mg Tab RxNorm: 383302 1 Tablet(s) PO QD 05/25/201108/2011 Inactive warfarin 5 mg Tab RxNorm: 445397 Tablet(s) PO 05/25/2011 10/18/2011 In active TAKE ONE TABLET BY MOUTH EVERY DAY Toprol XL 200 mg tablet,extended release RxNorm: 603977 1 Table t(s) PO QD 03/05/2011 06/02/2011 Inactive spironolactone 25 mg tablet RxNorm: 797676 1 Tablet(s) PO QAM 02/2402/08/2012 Inactive omeprazole 40 mg capsule,delayed release RxNorm: 388979 1 Capsule(s) PO QD for stomach 01/06/2011 01/11/2012 Inactive for stomach warfarin 5 mg Tab RxNorm: 690217 1 Tablet(s) PO QD 12/17/2010 011 Inactive warfarin 5 mg Tab RxNorm: 103132 1 Tablet(s) PO QD 11/18/2010 011 Inactive spironolactone 25 mg Tab RxNorm: 464230 1 Tablet(s) PO QAM 11/13/19 11 02/24/2011 Inactive Coumadin 6 mg Tab RxNorm: 697996 1 Tablet(s) PO QD 10/28/2010 011 Inactive May have generic hydrochlorothiazide 25 mg Tab RxNorm: 613313 1 Tablet(s) PO QAM 11/11/2010 Inactive Wellbutrin XL 300 mg 24 hr Tab RxNorm: 611937 1 Tablet(s) PO QD 09/14/2011 Inactive Septra DS 800 mg-160 mg Tab RxNorm: 784197 1 Tablet(s) PO BID 06/0806/17/2010 Inactive Pyridium 100 mg Tab RxNorm: 6122347 1 Tablet(s) PO TID 06/08/2010 Inactive Wellbutrin XL 300 mg 24 hr Tab RxNorm: 068032 1 Tablet(s) PO QD 05/201007/15/2010 Inactive hydroxyzine 25 mg Tab RxNorm: 224129 1 Tablet(s) PO QID prn itching--take routinely at bedtime. (pt. may not refil at this time but later) 05/20/2010 10/10/2011 Inactive Zyrtec 10 mg Tab RxNorm: 1060256 1 Tablet(s) PO BID 05/20/20102010 Inactive Coumadin 1 mg Tab RxNorm: 582010 1 Tablet(s) PO 6mg M-F, 7mg S-S 11/16/2010 Inactive hydroxyzine 25 mg Tab RxNorm: 023483 1 Tablet(s) PO QID prn itching--take routinely at bedtime 04/30/2010 05/19/2010 Inactive Toprol XL 200 mg 24 hr Tab RxNorm: 731053 1 Tablet(s) PO QD 011 06/23/2010 Inactive lisinopril-hydrochlorothiazide 10 mg-12.5 mg Tab RxNorm: 197 885 1 Tablet(s) PO QD 04/20/2010 04/29/2010 Inactive omeprazole 40 mg Cap, Delayed Release RxNorm: 270111 1 Capsule(s) PO QD for stomach 04/20/2010 08/17/2010 Inactive lisinopril-hydrochlorothiazide 10 mg-12.5 mg Tab RxNorm: 197 885 Tablet(s) PO 1QDAM - TAKE ONE TABLET BY MOUTH EVERY DAY IN THE MORNING 03/09/2010 Inactive lisinopril-hydrochlorothiazide 10 mg-12.5 mg Tab RxNorm: 197 885 1 Tablet(s) PO QD 02/27/2010 04/20/2010 Inactive Wellbutrin XL 300 mg 24 hr Tab RxNorm: 619506 1 Tablet(s) PO QD 05/21/2010 Inactive lisinopril-hydrochlorothiazide 10 mg-12.5 mg Tab RxNorm: 197 885 1 Tablet(s) PO QD 01/28/2010 02/26/2010 Inactive omeprazole 40 mg Cap, Delayed Release RxNorm: 082060 1 Capsule(s) PO QD for stomach 01/22/2010 04/20/2010 Inactive Altace 10 mg Cap RxNorm: 730082 1 Capsule(s) PO QD for BP 01/22/2010 03/22/2010 Inactive Coumadin 6 mg Tab RxNorm: 419993 1 Tablet(s) PO QD May have generic 12/03/2009 05/01/2010 Inactive Coumadin 6 mg Tab RxNorm: 561666 1 Tablet(s) PO 12/01/2009 12/02/2009 Inactive Coumadin 1 mg Tab RxNorm: 575201 1 Tablet(s) PO QD 11/28/2009 010 Inactive Coumadin 1 mg Tab RxNorm: 979468 1 Tablet(s) PO QD 07/02/2009 010 Inactive lisinopril-hydrochlorothiazide 20 mg-12.5 mg Tab RxNorm: 197 886 2 Tablet(s) PO QAM No Start Date 10/12/2010 Inactive Zofran ODT 4 mg disintegrating tablet RxNorm: 857480 1 Tablet(s) PO Q6H as needed for nausea No Start Date 09/14/2016 Inactive Wellbutrin XL 300 mg 24 hr Tab RxNorm: 653800 1 Tablet(s) PO QD No Start Date 02/02/2010 Inactive alprazolam 0.25 mg tablet RxNorm: 379702 1 Tablet(s) PO prior t o flight No Start Date 05/24/2017 Inactive hydrocodone-acetaminophen 5 mg-500 mg Tab RxNorm: 899373 1-2 Tablet(s) PO Q4H as needed for pain No Start Date 12/02/2010 Inactive Toprol XL 100 mg 24 hr Tab RxNorm: 641523 1 Tablet(s) PO QD No Star t Date 10/14/2013 Inactive Celebrex 200 mg capsule RxNorm: 399886 1 Capsule(s) PO QD No Start Date 05/22/2017 Inactive Flexeril 10 mg tablet RxNorm: 854374 1 Tablet(s) PO TID No Start Da te 04/02/2019 Inactive scopolamine 1 mg over 3 days transdermal patch RxNorm: 40454 2 1 TD take off in 72 hours. No Start Date 07/31/2017 Inactive OneTouch Ultra Test strips RxNorm: Test blood sugar daily No S tart Date 04/23/2018 Inactive Medrol (Dale) 4 mg tablets in a dose pack RxNorm: 408386 Tablet(s) PO As directed No Start Date 01/15/2014 Inactive Coumadin 5 mg Tab RxNorm: 668637 1 Tablet(s) PO QD No Start Date 06/19 Inactive Pepcid 40 mg Tab RxNorm: 913012 1 Tablet(s) PO QD No Start Date 06/23 Inactive prednisone 10 mg Tab RxNorm: 688017 1 Tablet(s) PO BID No Start Date 06/23/2010 Inactive spironolactone 25 mg tablet RxNorm: 186715 1 Tablet(s) PO QAM No St art Date 09/26/2018 Inactive scopolamine 1.5 mg 72 hr Transderm Patch RxNorm: 183139 TD Apply 1 patch behind ear every 72 hours, replace after 3 days. No Start Date 11/07/2012 Inacti ve azithromycin 250 mg Tab RxNorm: 326005 Tablet(s) PO 2 t abs on day one and one tab on days 2-5. (antibiotic) No Start Date 10/10/2011 Inactive Medrol (Dale) 4 mg Tabs in a Dose Pack RxNorm: 454513 1 Tablet(s) PO as directed. (steroid pack) No Start Date 10/10/2011 Inactive Lovenox 40 mg/0.4 mL subcutaneous syringe RxNorm: 992958 40 Mil ligram(s) SQ QD No Start Date 05/04/2018 Inactive Celebrex 200 mg capsule RxNorm: 877407 1 Capsule(s) PO BID as n eeded for pain No Start Date 01/13/2017 Inactive warfarin 1 mg tablet RxNorm: 959592 1 Tablet(s) PO As directed on Tue and No Start Date 08/10/2012 Inactive cefuroxime axetil 500 mg Tab RxNorm: 557703 1 Tablet(s) PO BID No S tart Date 06/13/2011 Inactive Lovenox 40 mg/0.4 mL subcutaneous syringe RxNorm: 826349 40 Mil ligram(s) SQ QD No Start Date 01/26/2018 Inactive Coumadin 5 mg tablet RxNorm: 183757 1 Tablet(s) PO QD No Start Date 0 08/13/2013 Inactive Medrol (Dale) 4 mg tablets in a dose pack RxNorm: 973644 Tablet(s) PO as directed No Start Date 01/17/2014 Inactive Coumadin 6 mg tablet RxNorm: 558678 1 Tablet(s) PO QD No Start Date 0 06/20/2016 Inactive warfarin 5 mg tablet RxNorm: 204932 1 Tablet(s) PO QD No Start Date 0 12/02/2011 Inactive Medrol (Dale) 4 mg Tabs in a Dose Pack RxNorm: 010325 Tablet(s) PO as directed No Start Date 06/23/2010 Inactive Flonase 50 mcg/actuation nasal spray,suspension RxNorm: 8963 23 2 [place] NASAL BID No Start Date 12/05/2014 Inactive Pepcid 20 mg tablet RxNorm: 305735 1 Tablet(s) PO BID as needed No Start Date 11/02/2012 Inactive spironolactone 25 mg tablet RxNorm: 419005 1 Tablet(s) PO QAM No St art Date 04/02/2019 Inactive Medication Administered No Medication Administered data Immunizations No Immunization data Results Observation Observation Code Item Item Code Result Date S ervice Location MICROALBUMIN URINE RANDOM 50624 CREAT MG/D 139 MG/DL Unknown MICROALBUMIN URINE RANDOM 97089 CRE/100 1.39 G/L 12/20 Unknown Procedures Procedure Codes Date URINALYSIS NONAUTO W/O SCOPE CPT-4: 74702 09/27/2018 URINE CULTURE/ COLONY COUNT CPT-4: 63969 09/27/2018 URINALYSIS NONAUTO W/O SCOPE CPT-4: 07282 10/13/2017 URINE CULTURE/ COLONY COUNT CPT-4: 11878 10/13/2017 STREP A ASSAY W/OPTIC CPT-4: 48369 06/21/2016 STREP A ASSAY W/OPTIC CPT-4: 06997 06/24/2014 THER/PROPH/DIAG INJ SC/IM CPT-4: 56479 03/22/2014 METHYLPREDNISOLONE 40 MG INJ CPT-4: J1030 03/22/2014 TRIAMCINOLONE ACET INJ NOS CPT-4: J3301 03/22/2014 URINALYSIS NONAUTO W/O SCOPE CPT-4: 13736 10/19/2013 URINE CULTURE/ COLONY COUNT CPT-4: 69357 10/19/2013 CEFTRIAXONE SODIUM INJECTION CPT-4: J0696 03/02/2013 THER/PROPH/DIAG INJ SC/IM CPT-4: 99751 03/02/2013 CEFTRIAXONE SODIUM INJECTION CPT-4: J0696 03/01/2013 THER/PROPH/DIAG INJ SC/IM CPT-4: 67278 03/01/2013 THER/PROPH/DIAG INJ SC/IM CPT-4: 55757 03/01/2013 METHYLPREDNISOLONE 40 MG INJ CPT-4: J1030 03/01/2013 TRIAMCINOLONE ACET INJ NOS CPT-4: J3301 03/01/2013 MICROALBUMIN QUANTITATIVE CPT-4: 32171 01/11/2013 URINE CULTURE/ COLONY COUNT CPT-4: 08752 05/04/2012 URINALYSIS NONAUTO W/O SCOPE CPT-4: 55338 05/04/2012 URINE CULTURE/ COLONY COUNT CPT-4: 38567 05/29/2010 TRIAMCINOLONE ACET INJ NOS CPT-4: J3301 05/20/2010 METHYLPREDNISOLONE 40 MG INJ CPT-4: J1030 05/20/2010 THER/PROPH/DIAG INJ SC/IM CPT-4: 30541 05/20/2010 Vital Signs Date Vital 05/09/2019 Blood [...] 1: 134/78 Code: 8480-6 BMI: 35.1 Code: 67780-7 Heart Rate 1: 76 bpm Height: 5'9" Respiratory Rate: 20 bpm Temperature: 36 .6 (C) / 97.8 (F) Weight: 238 lbs 12/27/2017 Blood Pressure 1: 126/64 Code: 8480-6 BMI: 34.7 Code: 19506-9 Heart Rate 1: 72 bpm Height: 5'9" Respiratory Rate: 20 bpm Temperature: 36 .8 (C) / 98.2 (F) Weight: 235 lbs 10/12/2017 Blood Pressure 1: 142/80 Code: 8480-6 BMI: 35.1 Code: 71184-4 Heart Rate 1: 98 bpm Height: 5'9" Respiratory Rate: 22 bpm SpO2: 100% Tempera ture: 36.5 (C) / 97.7 (F) Weight: 238 lbs 09/16/2017 Blood Pressure 1: 136/82 Code: 8480-6 BMI: 34.1 Code: 90773-9 Heart Rate 1: 82 bpm Height: 5'9" Respiratory Rate: 18 bpm SpO2: 96% Tempera ture: 36.3 (C) / 97.3 (F) Weight: 231 lbs 05/25/2017 Blood Pressure 1: 122/82 Code: 8480-6 BMI: 32.3 Code: 89381-6 Heart Rate 1: 116 bpm Height: 5'9" Respiratory Rate: 20 bpm SpO2: 98% Tempera ture: 35.6 (C) / 96.1 (F) Weight: 219 lbs 01/03/2017 Blood Pressure 1: 126/78 Code: 8480-6 BMI: 33.4 Code: 83260-7 Heart Rate 1: 72 bpm Height: 5'9" Respiratory Rate: 20 bpm Temperature: 36 .8 (C) / 98.2 (F) Weight: 226 lbs 09/23/2016 Blood Pressure 1: 126/82 Code: 8480-6 BMI: 33.8 Code: 46713-4 Heart Rate 1: 80 bpm Height: 5'9" Respiratory Rate: 20 bpm SpO2: 97% Tempera ture: 36.8 (C) / 98.2 (F) Weight: 229 lbs 09/03/2016 Blood Pressure 1: 188/64 Code: 8480-6 Bl ood Pressure 2: 166/92 Code: 8480-6 BMI: 34.4 Code: 86442-4 Heart Rate 1: 66 bpm Height: 5'9" Res piratory Rate: 20 bpm SpO2: 98% Temperature: 35.7 (C) / 96.2 (F) Weight: 233 lbs 07/08/2016 Blood Pressure 1: 134/82 Code: 8480-6 Heart Rate 1: 64 bpm Height: 5'9" Respiratory Rate: 20 bpm SpO2: 97% Temperature: 36.6 (C) / 97.8 (F) Weight: 06/21/2016 Blood Pressure 1: 112/68 Code: 8480-6 BMI: 33.8 Code: 38828-8 Heart Rate 1: 64 bpm Height: 5'9" Respiratory Rate: 20 bpm SpO2: 95% Tempera ture: 36.3 (C) / 97.3 (F) Weight: 229 lbs 02/23/2016 Blood Pressure 1: 128/78 Code: 8480-6 BMI: 33.4 Code: 03121-3 Heart Rate 1: 74 bpm Height: 5'9" [...] 1: 122/80 Code: 8480-6 BMI: 32.2 Code: 53318-9 Heart Rate 1: 80 bpm Height: 5'9" Respiratory Rate: 20 bpm Temperature: 37 .0 (C) / 98.6 (F) Weight: 218 lbs 08/09/2014 Blood Pressure 1: 132/84 Code: 8480-6 BMI: 33.1 Code: 95202-6 Heart Rate 1: 72 bpm Height: 5'9" Respiratory Rate: 20 bpm Temperature: 36 .7 (C) / 98.0 (F) Weight: 224 lbs 06/24/2014 Blood Pressure 1: 132/80 Code: 8480-6 BMI: 32.8 Code: 66256-1 Heart Rate 1: 68 bpm Height: 5'9" Respiratory Rate: 20 bpm Temperature: 36 .4 (C) / 97.6 (F) Weight: 222 lbs 03/22/2014 Blood Pressure 1: 128/84 Code: 8480-6 BMI: 32.5 Code: 29943-9 Heart Rate 1: 78 bpm Height: 5'9" Respiratory Rate: 22 bpm Temperature: 36 .0 (C) / 96.8 (F) Weight: 220 lbs 03/05/2014 Blood Pressure 1: 124/78 Code: 8480-6 BMI: 31.9 Code: 71032-5 Heart Rate 1: 82 bpm Height: 5'9" Respiratory Rate: 20 bpm Temperature: 35 .8 (C) / 96.4 (F) Weight: 216 lbs 01/16/2014 Blood Pressure 1: 116/68 Code: 8480-6 BMI: 33.8 Code: 64973-2 Heart Rate 1: 72 bpm Height: 5'7" Respiratory Rate: 20 bpm Temperature: 36 .6 (C) / 97.9 (F) Weight: 216 lbs 05/10/2013 Blood Pressure 1: 124/86 Code: 8480-6 BMI: 34.3 Code: 94937-6 Heart Rate 1: 84 bpm Height: 5'7" [...] 1: 116/84 Code: 8480-6 BMI: 33.1 Code: 86242-7 Heart Rate 1: 64 bpm Height: 5'9" Respiratory Rate: 20 bpm Temperature: 36 .4 (C) / 97.6 (F) Weight: 224 lbs 01/11/2013 Blood Pressure 1: 126/84 Code: 8480-6 BMI: 35.3 Code: 87540-4 Heart Rate 1: 68 bpm Height: 5'9" Respiratory Rate: 20 bpm Temperature: 36 .7 (C) / 98.1 (F) Weight: 239 lbs 11/03/2012 Blood Pressure 1: 104 Code: 8480-6 BMI: 34.4 Code: 10422-7 Heart Rate 1: 72 bpm Height: 5'9" Respiratory Rate: 20 bpm Temperature: 36 .8 (C) / 98.3 (F) Weight: 233 lbs 05/04/2012 Blood Pressure 1: 12474 Code: 8480-6 BMI: 33.7 Code: 33007-5 Heart Rate 1: 84 bpm Height: 5'9" Temperature: 36.3 (C) / 97.3 (F) Weight: 228 lbs 10/11/2011 Blood Pressure 1: 11070 Code: 8480-6 BMI: 33.7 Code: 81138-1 Heart Rate 1: 64 bpm Height: 5'9" Temperature: 36.8 (C) / 98.3 (F) Weight: 228 lbs 06/23/2011 Blood Pressure 1: 114 Code: 8480-6 BMI: 33.4 Code: 83360-3 Heart Rate 1: 80 bpm Height: 5'9" Respiratory Rate: 20 bpm Temperature: 36 .7 (C) / 98.0 (F) Weight: 226 lbs 06/14/2011 Blood Pressure 1: 118 Code: 8480-6 BMI: 33.4 Code: 06251-7 Heart Rate 1: 80 bpm Height: 5'9" [...] 1: 126/82 Code: 8480-6 BMI: 32.6 Code: 62235-2 Heart Rate 1: 68 bpm Height: 5'9" [...] 1: 140/92 Code: 8480-6 BMI: 31.3 Code: 51547-7 Heart Rate 1: 60 bpm Height: 5'10" [...] upper back on 08/13/16 while camping around [place], [place]. Patient states is tender around tick [...] 01/22/2010 Encounters Encounter Performer Location Codes Date ([id number]) OFFICE/OUTPATIENT VISIT EST Diagnosis: Type 2 diabetes mellitus without complications[ICD10: E11.9] Jessica GEE DO [facility] CPT-4: 20863 05/09/2019 ([id number]) OFFICE/OUTPATIENT VISIT EST Diagnosis: Type 2 diabetes mellitus without complications[ICD10: E11.9] Diagnosis: Essential hypertension[ICD10: I10] Jessica Marlen GEE [facility] CPT-4: 22141 04/03/2019 ([id number]) OFFICE/OUTPATIENT VISIT EST Diagnosis: Gastro-esophageal reflux disease without esophagitis[ICD10: K21.9] Diagnosis: Urinary tract infection, site not specified[ICD10: N39.0] Diagnosis: Ventral hernia without obstruction or gangrene[ICD10: K43.9] Jessica SMITHLINE Monica GEE [facility] CPT-4: 39140 09/27/2018 ([id number]) OFFICE/OUTPATIENT VISIT EST Diagnosis: Essential (primary) hypertension[ICD10: I10] Diagnosis: Type 2 diabetes mellitus without complications[ICD10: E11.9] Diagnosis: Carpal tunnel syndrome, right upper limb[ICD10: G56.01] Diagnosis: Primary insomnia[ICD10: F51.01] [facility] 75141 04/24/2018 ([id number]) OFFICE/OUTPATIENT VISIT EST Diagnosis: Type 2 diabetes mellitus without complications[ICD10: E11.9] Diagnosis: Mixed hyperlipidemia[ICD10: E78.2] Diagnosis: Essential (primary) hypertension[ICD10: I10] Diagnosis: Pain in unspecified joint[ICD10: M25.50] Jessica Michaelaaronderek SMITHJESSICA Monica GEE [facility] CPT-4: 09132 12/27/2017 ([id number]) NURSE/OUTPATIENT VISIT EST Diagnosis: Hematuria, unspecified[ICD10: R31.9] Jessica Michaelaaronderek SMITH ABNER [facility]: 75633 10/13/2017 ([id number]) OFFICE/OUTPATIENT VISIT EST Diagnosis: Pleurodynia[ICD10: R07.81] Sofi SMITHLINE [facility]: 45544 10/12/2017 ([id number]) OFFICE/OUTPATIENT VISIT EST Diagnosis: Acute bronchitis, unspecified[ICD10: J20.9] Sofi GEE DO [facility] CPT-4: 53989 09/16/2017 ([id number]) OFFICE/OUTPATIENT VISIT EST Diagnosis: Other specified postprocedural states[ICD10: Z98.890] Diagnosis: Cellulitis of neck[ICD10: L03.221] Diagnosis: Tachycardia, unspecified[ICD10: R00.0] Jessica GEE [facility] CPT-4: 56551 05/25/2017 ([id number]) OFFICE/OUTPATIENT VISIT EST Diagnosis: Lumbago with sciatica, right side[ICD10: M54.41] Diagnosis: Pain in unspecified joint[ICD10: M25.50] Jessica GEE [facility] CPT-4: 64374 01/03/2017 ([id number]) OFFICE/OUTPATIENT VISIT EST Diagnosis: Bitten or stung by nonvenomous insect and other nonvenomous arthropods, subsequent encounter[ICD10: W57.XXXD] Diagnosis: Essential (primary) hypertension[ICD10: I10] Diagnosis: Low back pain[ICD10: M54.5] Jessica CARBAJAL [facility] CPT-4: 47782 09/23/2016 OFFICE/OUTPATIENT VISIT EST Diagnosis: Bitten or stung by nonvenomous insect and other nonvenomous arthropods, initial encounter[ICD10: W57.XXXA] Diagnosis: Essential (primary) hypertension[ICD10: I10] Kaitlynn Mosley JESSICA GEE [facility] CPT-4: 61478 09/03/2016 ([id number]) OFFICE/OUTPATIENT VISIT EST Diagnosis: Low back pain[ICD10: M54.5] Diagnosis: Radiculopathy, lumbosacral region[ICD10: M54.17] Jessica GEE [facility] CPT-4: 49785 07/08/2016 ([id number]) OFFICE/OUTPATIENT VISIT EST Diagnosis: Acute pharyngitis, unspecified[ICD10: J02.9] Jessica GEE [facility] CPT-4: 82404 06/21/2016 ([id number]) OFFICE/OUTPATIENT VISIT EST Diagnosis: Cough[ICD10: R05] Diagnosis: Fever, unspecified[ICD10: R50.9] Janiya GEE [facility] CPT-4: 78214 02/23/2016 ([id number]) OFFICE/OUTPATIENT VISIT EST Diagnosis: Acute sinusitis, unspecified[ICD10: J01.90] Jessica Marlen GEE [facility] CPT-4: 78223 02/16/2016 OFFICE/OUTPATIENT VISIT EST Diagnosis: Type 2 diabetes mellitus without complications[ICD10: E11.9] Diagnosis: Gastro-esophageal reflux disease without esophagitis[ICD10: K21.9] Diagnosis: Ventral hernia without obstruction or gangrene[ICD10: K43.9] Suki GEE [facility] CPT-4: 60330 02/11/2015 OFFICE/OUTPATIENT VISIT EST 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] Diagnosis: Essential (primary) hypertension[ICD10: I10] Suki GEE [facility] CPT-4: 63040 01/28/2015 OFFICE/OUTPATIENT VISIT EST Diagnosis: SINUSITIS, ACUTE[ICD9: 461.9] Kaitlynn MENDENHALLQUELINE Monica GEE [facility] CPT-4: 43007 12/06/2014 ([id number]) OFFICE/OUTPATIENT VISIT EST Diagnosis: SINUSITIS, ACUTE[ICD9: 461.9] Kaitlynn MENDENHALLQUELINE Monica GEE [facility] CPT-4: 35477 08/09/2014 ([id number]) OFFICE/OUTPATIENT VISIT EST Diagnosis: TONSILLITIS, ACUTE[ICD9: 463] Suki GEE DO [facility] CPT-4: 08670 06/24/2014 OFFICE/OUTPATIENT VISIT EST Diagnosis: SINUSITIS, ACUTE[ICD9: 461.9] Diagnosis: EUSTACHIAN TUBE DYSFUNCTION[ICD9: 381.81] Diagnosis: COUGH[ICD9: 786.2] Suki Jun GEE [facility] CPT-4: 91984 03/22/2014 OFFICE/OUTPATIENT VISIT EST Diagnosis: Elbow pain, right[ICD9: 719.42] Suki GEE DO [facility] CPT-4: 87867 03/05/2014 OFFICE/OUTPATIENT VISIT EST Diagnosis: SINUSITIS, ACUTE[ICD9: 461.9] Jessica GEE DO [facility] CPT-4: 91368 01/16/2014 ([id number]) OFFICE/OUTPATIENT VISIT EST Diagnosis: GROSS HEMATURIA[ICD9: 599.71] Jessica GEE DO [facility] CPT-4: 69328 10/19/2013 ([id number]) OFFICE/OUTPATIENT VISIT EST Diagnosis: DM W/O COMPLICATION TYPE II[ICD9: 250.00] Diagnosis: HYPERLIPIDEMIA NEC/NOS[ICD9: 272.4] Jessica GEE DO [facility] CPT-4: 32076 05/10/2013 ([id number]) OFFICE/OUTPATIENT VISIT EST Diagnosis: SINUSITIS, ACUTE[ICD9: 461.9] Jessica GEE DO [facility] CPT-4: 80298 04/17/2013 OFFICE/OUTPATIENT VISIT EST Diagnosis: OTITIS MEDIA NOS[ICD9: 382.9] Diagnosis: COUGH[ICD9: 786.2] Suki GEE DO [facility] CPT-4: 54316 03/05/2013 OFFICE/OUTPATIENT VISIT EST Diagnosis: COUGH[ICD9: 786.2] Diagnosis: BRONCHITIS, ACUTE[ICD9: 466.0] Suki GEE DO [facility] CPT-4: 37217 03/02/2013 OFFICE/OUTPATIENT VISIT EST Diagnosis: COUGH[ICD9: 786.2] Diagnosis: OTITIS MEDIA NOS[ICD9: 382.9] Diagnosis: BRONCHITIS, ACUTE[ICD9: 466.0] Suki GEE DO [facility] CPT-4: 39039 03/01/2013 OFFICE/OUTPATIENT VISIT EST Diagnosis: DM W/O COMPLICATION TYPE II, UNCONTROLLED[ICD9: 250.02] Jessica GEE DO [facility] CPT-4: 99955 02/22/2013 ([id number]) PREV VISIT EST AGE 40-64 Diagnosis: DM W/O COMPLICATION TYPE II, UNCONTROLLED[ICD9: 250.02] Diagnosis: HYPERTENSION[ICD9: 401.9] Diagnosis: ROUTINE MEDICAL EXAM[ICD9: V70.0] Jessica Michaelcorby Lucas DomingaLloyd [facility] CPT-4: 46108 01/11/2013 OFFICE/OUTPATIENT VISIT EST Diagnosis: HZ (HERPES ZOSTER)[ICD9: 053.9] Kaitlynn Dimitri MENDENHALLQUELINE Dom[facility]Lloyd [facility] CPT-[facility]: 21818 11/03/2012 OFFICE/OUTPATIENT VISIT EST Diagnosis: URINARY TRACT INFECTION[ICD9: 599.0] Diagnosis: GERD[ICD9: 530.81] Diagnosis: PHARYNGITIS, ACUTE[ICD9: 462] Jessica Marlen SMITHLINE DomingaLloyd [facility] CPT-4: 23385 05/04/2012 OFFICE/OUTPATIENT VISIT EST Diagnosis: COUGH[ICD9: 786.2] Diagnosis: SINUSITIS, ACUTE[ICD9: 461.9] Diagnosis: PHARYNGITIS, ACUTE[ICD9: 462] Jessica Marlen SMITHLINE [facility]ingaLloyd [facility] CPT-4: 06781 10/11/2011 OFFICE/OUTPATIENT VISIT EST Diagnosis: COUGH[ICD9: 786.2] Diagnosis: SINUSITIS, ACUTE[ICD9: 461.9] Diagnosis: PHARYNGITIS, ACUTE[ICD9: 462] Diagnosis: ALLERGIC RHINITIS[ICD9: 477.9] Xiomara VO Dominga Lloyd [facility] CPT-4: 32393 06/23/2011 OFFICE/OUTPATIENT VISIT EST Diagnosis: COUGH[ICD9: 786.2] Diagnosis: SINUSITIS, ACUTE[ICD9: 461.9] Diagnosis: PHARYNGITIS, ACUTE[ICD9: 462] Jessica Mccormickderek JESSICA Doming[facility]Lloyd [facility] CPT-4: 74560 06/14/2011 OFFICE/OUTPATIENT VISIT EST Diagnosis: SINUSITIS, ACUTE[ICD9: 461.9] Diagnosis: PHARYNGITIS, ACUTE[ICD9: 462] Jessica MENDENHALLQUELINE DomingaLloyd [facility] CPT-4: 39880 12/02/2010 OFFICE/OUTPATIENT VISIT EST Diagnosis: HYPERTENSION[ICD9: 401.9] Diagnosis: HYPERLIPIDEMIA NEC/NOS[ICD9: 272.4] Diagnosis: DERMATITIS NOS[ICD9: 692.9] Jessica Michaelaaronderek [facility] CPT-4: 62915 11/12/2010 OFFICE/OUTPATIENT VISIT EST Jessica [facility] CPT- 4: 10211 10/13/2010 ([id number]) OFFICE/OUTPATIENT VISIT EST Jessica HARKINS [facility] CPT-4: 37592 06/24/2010 ([id number]) OFFICE/OUTPATIENT VISIT EST Jessica Oreaaronderek HARKINS UELINE S. ORENDER DO [facility] CPT-4: 85209 06/08/2010 ([id number]) OFFICE/OUTPATIENT VISIT EST Xiomara Rodriguez JESSICA S . ORENDER DO [facility] CPT-4: 62919 05/20/2010 ([id number]) OFFICE/OUTPATIENT VISIT EST Jessica Michaelaaronderek TORIN UELINE S. ORENDER DO [facility] CPT-4: 87526 04/30/2010 ([id number]) OFFICE/OUTPATIENT VISIT, EST Jessica MOFFETTABNER S. ORENDER DO [facility] CPT-4: 23570 01/22/2010 Plan of Care Planned Activity Notes [...] E11.9 04/03/2019 Appointment: [facility]ee [facility]el[phone] [facility] [facility] 04/03/2019 Visit Diagnosis Plan: Gastro-esophageal [...] : N39.0 09/27/2018 Appointment: Jessica Gee WPtel: [facility] ACUTE ILLNESS 09/27/2018 Visit Diagnosis Plan: Carpal tunnel syndrome, right up per limb Discussion: Scheduled for surgery on May [address] Norris ICD-9 : 354.0 ICD-10 : G56.01 04/24/2018 Visit Diagnosis Plan: Primary insomnia Discussion: Tri al of amitriptylene 25mg po q HS ICD-9 : 780.52 ICD-10 : F51.01 04/24/2018 Visit Diagnosis Plan: Type 2 diabetes mellitus without complications Discussion: Check CMP, Lipids Accuchecks daily ICD-9 : 250.00 ICD-10 : E11.9 04/24/2018 Visit Diagnosis Plan: Essential (primary) hypertension Discussion: Stable ICD-9 : 401.9 ICD-10 : I10 04/24/2018 Appointment: Jessica Gee WPtel: [facility] [place] [id number] ACUTE ILLNESS 04/24/2018 Patient Education: celecoxib- [employer] [id number] Completed 04/24/2018 Patient Education: amitriptyline- [employer] C[employer]on [id number] Completed 04/24/2018 Visit Diagnosis Plan: Essential (primary) [...] E11.9 12/27/2017 Appointment: Jessica Gee WPtel[phone] [facility] [facility] 12/27/2017 Patient Education: Patient Medication Summary Completed 12/27/2017 Patient Education: Patient Medication Summary Completed 12/19/2017 Care Plan: MAMMOGRAM BOTH BREASTS LOINC : 36513-1 Pending 12/19/2017 Patient Education: Patient Medication Summary Completed 12/16/2017 Care Plan: ASSAY THYROID STIM HORMONE Pen ding 12/16/2017 Care Plan: ASSAY OF FREE THYROXINE Pendin 12/16/2017 Care Plan: LIPID PANEL LOINC : 72493-6 Pending 12/16/2017 Care Plan: CBC Pending 12/16/2017 Care Plan: A1C HPLC LOINC : 70349-0 Pending 12/16/2017 Patient Education: Patient Medication Summary Completed 10/17/2017 Care Plan: CT ANGIOGRAPHY CHEST LOINC : 09099-4 Pending 10/17/2017 Patient Education: Patient Medication Summary Completed 10/14/2017 Care Plan: CT ANGIOGRAPHY CHEST LOINC : 75980-7 Pending 10/14/2017 Appointment: Jessica Gee WPtel: [phone] [facility] [place] 10/13/2017 Patient Education: Patient Medication Summary Completed 10/13/2017 Visit Diagnosis Plan: Pleurodynia Discussion: patient sent for stat cxray. medrol dose pack prescribed for symptom management. instructed to perform deep breathing exercises at home to prevent atelectasis or pneumonia. will notify pa tient of results of xray and order additional tests/medications as needed. ICD-9 : 786.50 ICD-10 : R07.81 10/12/2017 Appointment: Sof[address] [id number] ACUTE ILLNESS 10/12/2017 Patient Education: Patient Medication [...] : J20.9 09/16/2017 Appointment: Sofi Gresham [address] [facility] ACUTE ILLNESS 09/16/2017 Patient Education: Patient Medication Summary Completed 09/16/2017 Appointment: Jessica Gee WPtel: [address] [place] [address] CANCELED 08/10/2017 Visit Diagnosis Plan: Tachycardia, unspecified Discuss ion: [...] ICD-9 : V45.89 ICD-10 : Z98.890 05/25/2017 Appointment: Jessica Gee WPtel: [address] [place], [place] [id number] [place] FOLLOW UP 05/25/2017 Patient Education: Patient Medication Summary Completed 05/25/2017 Visit Diagnosis Plan: Lumbago with sciatica, right britton e Discussion: Check arthritis panel Patient awaiting neck surgery before surgery will consider back surgery ICD-9 : 724.2 ICD-10 : M54.41 01/03/2017 Appointment: Jessica Gee WPtel: [address] [place], [place] [address] ACUTE ILLNESS 01/03/2017 Patient Education: Patient Medication Summary Completed 01/03/2017 Patient Education: Patient Medication Summary Completed 12/16/2016 Care Plan: MAMMOGRAM SCREENING LOINC : 2 6347-5 Pending 12/16/2016 Patient Education: Patient Medication Summary Completed 10/07/2016 Care Plan: MRI LUMBAR SPINE W/O & W/DYE LOINC : 66520-7 Pending 10/07/2016 Visit Diagnosis Plan: Bitten or [...] : I10 09/23/2016 Appointment: Jessica Gee WPtel: [address] [place] [address] 09/22 confirmed WORK IN 09/23/2016 Patient Education: Patient Medication Summary Completed 09/23/2016 Visit Plan: Tick panel at [facility] Increa se spironolactone to 2 po am (New Rx sent) Take B/P at home/work and also come to office next week for recheck Will await lab results before starting any antibiotic 09/03/2016 Appointment: Kaitlynn Mosley WPtel: [address] [place], [place] [phone] ACUTE ILLNESS 09/03/2016 Patient Education: Patient Medication Summary Completed 09/03/2016 Visit Diagnosis Plan: Low back pain Discussion: Celebr ex BID PT Continue stretches at home L/S xray Follow Up: 1 months ICD-9 : 724.2 ICD-10 : M54.5 07/08/2016 Appointment: Jessica Gee WPtel: [address] [place] [address] ACUTE ILLNESS 07/08/2016 Patient Education: Patient Medication Summary Completed 07/08/2016 Care Plan: X-RAY EXAM L-S SPINE 2/3 VWS LOINC : 19120-3 Pending 07/08/2016 Visit Plan: Supportive care. Rest, Fluid s, Tylenol/Motrin prn fever or bodyaches. Notify if worsening symptoms.New toothebrush in 5 days 06/21/2016 Visit Diagnosis Plan: Acute pharyngitis, unspecified D iscussion: Strep Negative Supportive Care May use zyrtec 10mg q HS ICD-9 : 462 ICD-10 : J02.9 06/21/2016 Visit NOS Plan: Plan Notes: Supportive care. Rest, Fluids... 06/21/2016 Appointment: Jessica Gee WPtel: [address] [place] [address] ACUTE ILLNESS 06/21/2016 Patient Education: Patient Medication Summary Completed 06/21/2016 Visit Plan: No pulseox last week to comp are to today, but she does sound diminished today Studies as above ordered Continue cefdinir until results received Increase albuterol treatments to q4-6hrs PRN Continue supportive care 02/23/2016 Appointment: Janiya Gregorio [address] [place] [address] ACUTE ILLNESS 02/23/2016 Patient Education: Patient Medication Summary Completed 02/23/2016 Care Plan: CHEST X-RAY 2VW FRONTAL&LATL LOINC : 26564-9 Pending 02/23/2016 Visit Plan: Saline nasal flushes prn. Ty lenol/Motrin prn headache. Notify if persists/symptoms worsening. 02/16/2016 Appointment: Jessica Gee WPtel: [address] [place] [address] ACUTE ILLNESS 02/16/2016 Patient Education: Patient Medication Summary Completed 02/16/2016 Visit Plan: Discussed labs Continue Topr ol at 200 mg PO daily Increase Aciphex to BID Notify if increase of Aciphex does not give relief. Repeat PT/INR in 2 weeks. 02/11/2015 Appointment: Suki Barahona WPtel: [address] [place] [address] 02/10 confirmed ~sl FOLLOW UP 02/11/2015 Patient Education: Patient Medication Summary Completed 02/11/2015 Patient Education: Patient Medication Summary Completed 02/06/2015 Care Plan: POC PROTIME/INR LOINC : 28678 -6 Pending 02/06/2015 Visit Plan: Increase Toprol XL 200 mg to one full tablet daily (is currently taking only 1/2 tablet) To for EKG today Monitor daily BP Notify of any changes- increased numbness, weakness, headache etc. 01/28/2015 Appointment: Suki Barahona WPtel: [address] [place] [address] ACUTE ILLNESS 01/28/2015 Patient Education: Patient Medication Summary Completed 01/28/2015 Visit Plan: ERx Amoxicillin and Flonase Nasal saline, humidified air Facial heat or cold packs for comfort Increase fluids/rest Discussed s/s of worsening, go to over weekend if these occur. 12/06/2014 Appointment: Kaitlynn Mosley WPtel: [address] [place] [address] ACUTE ILLNESS 12/06/2014 Patient Education: Patient Medication Summary Completed 12/06/2014 Appointment: Kaitlynn Mosley WPtel: [address] [place] [address] ACUTE ILLNESS 08/09/2014 Patient Education: Patient Medication Summary Completed 08/09/2014 Appointment: Suki Barahona WPtel: [address] [place] [address] ACUTE ILLNESS 06/24/2014 Patient Education: Patient Medication Summary Completed 06/24/2014 Appointment: Suki Barahona WPtel: [address] [place] [address] ACUTE ILLNESS 03/22/2014 Patient Education: Patient Medication Summary Completed 03/22/2014 Patient Education: [employer] - Antibi otics, Analgesics 18+, Oral Contraceptives F 18+ Completed 03/22/2014 Appointment: Suki Baarhona WPtel: [address] [place] [address] [place] FOLLOW UP 03/05/2014 Patient Education: Patient Medication Summary Completed 03/05/2014 Visit Plan: Saline nasal flushes prn. Ty lenol/Motrin prn headache. Notify if persists/symptoms worsening. Restart flonase 01/16/2014 Appointment: Jessica Gee WPtel: [address] [place] [address] ACUTE ILLNESS 01/16/2014 Patient Education: Patient Medication Summary Completed 01/16/2014 Appointment: Jessica Gee WPtel: [address] [place] [address] 10/19/2013 Patient Education: Patient Medication Summary Completed 10/19/2013 Appointment: Jessica Gee WPtel: [address] [place] [address] 08/08 patient canceled appt and said will call back to angela evelin FOLLOW UP 08/09/2013 Visit Plan: Increase Coumadin to 6mg M-F and stay on 5mg Sat, Sun Add lipids to labs Check PT/INR in 3wks Continue metfromin at current dose and accuchecks 05/10/2013 Appointment: Jessica Gee WPtel: [address] [place] [address] 05/09 FOLLOW UP 05/10/2013 Patient Education: Patient Medication Summary Completed 05/10/2013 Visit Plan: Saline nasal flushes prn. Ty lenol/Motrin prn headache. Notify if persists/symptoms worsening. 04/17/2013 Appointment: Jessica Gee WPtel: [address] [place] [address] ACUTE ILLNESS 04/17/2013 Patient Education: Patient Medication Summary Completed 04/17/2013 Appointment: Suki Barahona WPtel: [address] [place] [address] FOLLOW UP 03/05/2013 Patient Education: Patient Medication Summary Completed 03/05/2013 Appointment: Jun Suki Edison WPtel: [address] [place] [address] FOLLOW UP 03/02/2013 Patient Education: Patient Medication Summary Completed 03/02/2013 Appointment: JunSuki Edison WPtel: [address] [place] [address] ACUTE ILLNESS 03/01/2013 Patient Education: Patient Medication Summary Completed 03/01/2013 Visit Plan: Continue metformin and accuc hecks Add fish oil 1gram daily Check HbA1C, CMP in 2mos then fwup 02/22/2013 Appointment: Jessica Gee WPtel: [address] [place] [address] 02/21 [facility] FOLLOW UP 02/22/2013 Patient Education: Patient Medication Summary Completed 02/22/2013 Visit Plan: Start Metformin Start Accuch ecks daily alternating times Will go for dilated eye exam once BS more stabilized Diabetic foot care discussed Diabetic diet info given 01/11/2013 Appointment: Jessica Gee WPtel: [address] [place] [address] FOLLOW UP 01/11/2013 Patient Education: Patient Medication Summary Completed 01/11/2013 Appointment: Kaitlynn Mosley WPtel: [address] [place] [address] ACUTE ILLNESS 11/03/2012 Patient Education: Patient Medication Summary Completed 11/03/2012 Appointment: Xiomara Rodriguez WPtel: [address] [place] [address] ACUTE ILLNESS 05/04/2012 Patient Education: Patient Medication Summary Completed 05/04/2012 Visit Plan: pt reports that she always g ets yeast infections. Discussed that the antifungal can cause problems/increased bleeding with Coumdin. Pt. will start with probiotics and only take the Diflucan if needed. Cefdinir. 10/11/2011 Appointment: Xiomara Rodriguez WPtel: [address] [place] [address] ACUTE ILLNESS 10/11/2011 Patient Education: Patient Medication Summary Completed 10/11/2011 Appointment: Xiomara Rodriguez WPtel: [address] [place] [address] FOLLOW UP 06/23/2011 Patient Education: Patient Medication Summary Completed 06/23/2011 Visit Plan: Will prescribe an antibiotic and diflucan. Pt. reports that she frequently gets yeast infection. Discussed that she will notify if any symptoms persist. Pt. reports that her relatives have recently been hospitalized with pneumonia. 06/14/2011 Appointment: Xiomara Rodriguez WPtel: [address] [place] [address] ACUTE ILLNESS 06/14/2011 Patient Education: Patient Medication Summary Completed 06/14/2011 Visit Plan: sample of veramyst. Cefuroxi me axetil. Pt. will focus on hydration and rest. Discussed comfort measures and monitoring for worsening symptoms. 12/02/2010 Appointment: Xiomara Rodriguez WPtel: [address] [place] [address] ACUTE ILLNESS 12/02/2010 Patient Education: Patient Medication Summary Completed 12/02/2010 Visit Plan: Change HCTZ to spironolacton e will start zocor in 1 mo BP med in 1mo 11/12/2010 Appointment: Jessica Gee WPtel: [address] [place] [address] FOLLOW UP 11/12/2010 Patient Education: Patient Medication Summary Completed 11/12/2010 Appointment: Jessica Gee WPtel: [address] [place], [place] [address] BP CHECK 10/26/2010 Patient Education: Patient Medication Summary Completed 10/26/2010 Visit Plan: Continue Toprol at bedtime A dd HCTZ in AM BP check in 2wks Fasting lab with next PT/INR 10/13/2010 Appointment: Jessica Gee WPtel: [address] [place], [place] [address] FOLLOW UP 10/13/2010 Patient Education: Patient Medication Summary Completed 10/13/2010 Visit Plan: Cont abx. Fwup with surgery as scheduled 06/24/2010 Appointment: Jessica Gee WPtel: [address] [place] [address] Follow Up 06/24/2010 Patient Education: Patient Medication Summary Completed 06/24/2010 Appointment: Jessica Gee WPtel: [address] [place] [address] Follow Up 06/22/2010 Visit Plan: pt is [...] to subside. 06/08/2010 Appointment: Xiomara Rodriguez WPtel: [address] [place] [address] ACUTE ILLNESS 06/08/2010 Patient Education: Patient Medication Summary Completed 06/08/2010 Appointment: Xiomara Rodriguez WPtel: [address] [place] [address] FOLLOW UP 06/01/2010 Appointment: Jessica Gee WPtel: [address] [place] [address] 05/29/2010 Patient Education: Patient Medication Summary Completed 05/29/2010 Appointment: Xiomara Rodriguez WPtel: [address] [place] [address] ACUTE ILLNESS 05/20/2010 Patient Education: Patient Medication Summary Completed 05/20/2010 Appointment: Jessica Gee WPtel: [address] [place] [address] BP CHECK 05/13/2010 Patient Education: Patient Medication Summary Completed 05/13/2010 Visit Plan: Increase Lisinopril hct to 2 0/12.5mg q AM Use atarax prn and routinely at bedtime and Medrol dose pack BP check in 3wks Pt defers stress test at this time 04/30/2010 Appointment: Jessica Gee WPtel: [address] [place], [place] [id number] ACUTE ILLNESS 04/30/2010 Patient Education: Patient Medication Summary Completed 04/30/2010 Appointment: Jessica Gee WPtel: [address] [place] [address] BP CHECK 02/27/2010 Patient Education: Patient Medication Summary Completed 02/27/2010 Visit Plan: Cont Toprol Add Altace 10mg QD Cont Wellbutrin Will likely add SSRI after BP stable BP check in 2wks 01/22/2010 Appointment: Jessica Gee WPtel: [address] [place], [place] [phone] [place] ACUTE ILLNESS 01/22/2010 Patient Education: Patient Medication Summary Completed 01/22/2010 Referral: Rupa Raines WPtel: [address] [id number] [place] Referral Completed Referral: Neymar Alberts WPtel: [address] [facility] [place] Referral Initiated Instructions Comment . Tick panel at [facility] Increase spironolactone to 2 po [...]
--- OUTSIDE RECORDS SUMMARY | 2019-09-10 03:06 | XMS REPORT | CCD ---
Author Author Nava Gee D.O. Organization [facility] Address [address] [place] [address] Phone Care Team Providers Care Theatre Director Name Role Phone Jessica Gee D.O., PP Unavailable CCM Unavailable Summary Purpose Interface Exchange Insurance Providers Payer name Policy type / Coverage type Covered democrat ID Effective Begin Date Effective End Date Blue Cross Blue Shield Blue Cross/Blue Shield [id number] Unknown Family History Family History data not found Social History Social History Element Codes Description Effective Dates Tobacco history SNOMED CT: 897786241 Never smoker 10/13/2010 Allergies, Adverse Reactions, Alerts [...] findings ICD-9: V70.0 ICD-10: Z00.00 12/16/2017 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 ICD-9: V58.6 1 [...] Fill Instructions warfarin 6 mg tablet RxNorm: 081811 1 Tablet(s) Oral QD then on Tue/ take along with Warfarin 1mg (7mg) 05/09/2019 No Stop Date Active Jardiance 25 mg tablet RxNorm: 8918716 1 Tablet(s) Oral QD 05/09/19 20 05/23/2019 Active Jardiance 25 mg tablet RxNorm: 4910698 1 Tablet(s) Oral QAM 020 09/06/2019 Active Jardiance 10 mg tablet RxNorm: 0228169 1 Tablet(s) Oral QD 05/09/19 No Stop Date Active warfarin 1 mg tablet RxNorm: 613923 1 Tablet(s) Oral on Tue and with 6mg tablet (total 7mg) 05/09/2019 No Stop Date Active warfarin 5 mg tablet RxNorm: 927067 1 Tablet(s) Oral QD 05/02/2019 Active warfarin 1 mg tablet RxNorm: 359657 TAKE 1 TABLET BY [facility] ONCE DAILY. TAKE AN ADDITIONAL TABLET ON TUESDAY AND Tuesday05/02/2019 05/08/2019 Inactiv e Coumadin 5 mg tablet RxNorm: 614580 TAKE 1 TABLET BY MOUTH ONCE DAILY 04/02/2019 05/02/2019 Inactive celecoxib 200 mg capsule RxNorm: 904394 TAKE 1 CAPSULE BY MOUTH TWICE DAILY 03/20/2019 06/17/2019 Active metformin ER 500 mg tablet,extended release 24 hr RxNorm: 86 0975 TAKE 1 TABLET BY MOUTH TWICE DAILY 03/19/2019 05/17/2019 Active pravastatin 40 mg tablet RxNorm: 492124 TAKE 1 TABLET BY MOUTH ONCE DAILY 03/19/2019 06/16/2019 Active Coumadin 5 mg tablet RxNorm: 126207 TAKE 1 TABLET BY MOUTH ONCE DAILY 02/28/2019 04/01/2019 Inactive warfarin 1 mg tablet RxNorm: 539874 TAKE 1 TABLET BY [facility] ONCE DAILY. TAKE AN ADDITIONAL TABLET ON TUESDAY AND Tuesday02/28/2019 05/01/2019 Inactiv e omeprazole 40 mg capsule,delayed release RxNorm: 868982 TAKE 1 CAPSULE BY MOUTH TWICE DAILY 02/19/2019 No Stop Date Active metformin ER 500 mg tablet,extended release 24 hr RxNorm: 86 0975 1 Tablet(s) PO BID 02/19/2019 03/18/2019 Inactive metformin ER 500 mg tablet,extended release 24 hr RxNorm: 86 0975 1 Tablet(s) PO BID 01/15/2019 02/13/2019 Inactive alprazolam 0.25 mg tablet RxNorm: 944422 1 Tablet(s) Oral prior to flight 01/03/2019 No Stop Date Active omeprazole 40 mg capsule,delayed release RxNorm: 111592 TAKE 1 CAPSULE BY MOUTH TWICE DAILY 12/20/2018 02/18/2019 Inactive metformin ER 500 mg tablet,extended release 24 hr RxNorm: 86 0975 1 Tablet(s) PO BID 12/11/2018 01/09/2019 Inactive pravastatin 40 mg tablet RxNorm: 107009 TAKE 1 TABLET BY MOUTH ONCE DAILY 12/11/2018 03/18/2019 Inactive Coumadin 5 mg tablet RxNorm: 899311 1 Tablet(s) PO QD 11/27/201809/2018 Inactive metformin ER 500 mg tablet,extended release 24 hr RxNorm: 86 0975 1 Tablet(s) PO BID 10/02/2018 11/30/2018 Inactive warfarin 1 mg tablet RxNorm: 263735 TAKE 1 TABLET BY [facility] ONCE DAILY. TAKE AN ADDITIONAL TABLET ON TUESDAY AND Tuesday10/02/2018 02/27/2019 Inactiv e Bactrim DS 800 mg-160 mg tablet RxNorm: 946733 1 Tablet(s) PO BID 0 09/27/2018 10/03/2018 Inactive warfarin 5 mg tablet RxNorm: 083115 1 Tablet(s) PO QD 09/27/201810/2018 Inactive Toprol XL 200 mg tablet,extended release RxNorm: 131709 1 Table t(s) PO QD 09/18/2018 03/16/2019 Inactive omeprazole 40 mg capsule,delayed release RxNorm: 254771 TAKE 1 CAPSULE BY MOUTH TWICE DAILY 09/11/2018 12/19/2018 Inactive Coumadin 5 mg tablet RxNorm: 489602 1 Tablet(s) PO QD 08/21/201811/2018 Inactive metformin ER 500 mg tablet,extended release 24 hr RxNorm: 86 0975 1 Tablet(s) PO BID 07/31/2018 09/28/2018 Inactive omeprazole 40 mg capsule,delayed release RxNorm: 891100 TAKE 1 CAPSULE BY MOUTH TWICE DAILY 06/27/2018 09/10/2018 Inactive metformin ER 500 mg tablet,extended release 24 hr RxNorm: 86 0975 Tablet(s) 1 Tablet(s) PO BID 06/27/2018 07/31/2018 Inactive Toprol XL 200 mg tablet,extended release RxNorm: 756970 1 Table t(s) PO QD 06/14/2018 09/17/2018 Inactive Coumadin 5 mg tablet RxNorm: 178686 1 Tablet(s) PO QD 06/14/201804/2018 Inactive metformin ER 500 mg tablet,extended release 24 hr RxNorm: 86 0975 Tablet(s) 1 Tablet(s) PO BID 05/22/2018 06/26/2018 Inactive Coumadin 5 mg tablet RxNorm: 834460 TAKE 1 TABLET BY MOUTH ONCE DAILY 05/11/2018 06/14/2018 Inactive Lovenox 40 mg/0.4 mL subcutaneous syringe RxNorm: 765644 40 Mil ligram(s) SQ QD 05/05/2018 09/26/2018 Inactive amitriptyline 25 mg tablet RxNorm: 090139 1 Tablet(s) PO QHS fo r sleep/HAs 04/24/2018 10/20/2018 Inactive Proper ClothTouch Ultra Test strips RxNorm: Test blood sugar sigrid y (Dx:E11.65) 04/24/2018 No Stop Date Active celecoxib 200 mg capsule RxNorm: 901288 1 Capsule(s) PO BID 019 10/20/2018 Inactive Celebrex 200 mg capsule RxNorm: 310453 TAKE 1 CAPSULE BY MOUTH ONCE DAILY 04/19/2018 04/23/2018 Inactive warfarin 1 mg tablet RxNorm: 056227 1 Tablet(s) PO QD a nd additional tablet on Mon & Thurs 04/14/2018 10/01/2018 Inactive Toprol XL 200 mg tablet,extended release RxNorm: 275580 TAKE 1 TABLET BY MOUTH ONCE DAILY 04/11/2018 06/14/2018 Inactive metformin ER 500 mg tablet,extended release 24 hr RxNorm: 86 0975 Tablet(s) 1 Tablet(s) PO BID 03/17/2018 05/21/2018 Inactive Coumadin 5 mg tablet RxNorm: 018752 TAKE 1 TABLET BY MOUTH ONCE DAILY 03/15/2018 05/10/2018 Inactive Lovenox 40 mg/0.4 mL subcutaneous syringe RxNorm: 594507 40 Mil ligram(s) SQ QD 01/27/2018 04/11/2018 Inactive omeprazole 40 mg capsule,delayed release RxNorm: 450955 TAKE 1 CAPSULE BY MOUTH TWICE DAILY 01/23/2018 06/26/2018 Inactive pravastatin 40 mg tablet RxNorm: 630601 TAKE 1 TABLET BY MOUTH ONCE DAILY 01/23/2018 12/10/2018 Inactive metformin ER 500 mg tablet,extended release 24 hr RxNorm: 86 0975 Tablet(s) 1 Tablet(s) PO BID 01/16/2018 01/15/2018 Inactive Toprol XL 200 mg tablet,extended release RxNorm: 546243 TAKE 1 TABLET BY MOUTH ONCE DAILY 01/16/2018 04/10/2018 Inactive Coumadin 5 mg tablet RxNorm: 091421 TAKE 1 TABLET BY MOUTH ONCE DAILY 01/06/2018 03/14/2018 Inactive Celebrex 200 mg capsule RxNorm: 035711 1 Capsule(s) PO BID 12/28/19 18 03/26/2018 Inactive metformin ER 500 mg tablet,extended release 24 hr RxNorm: 86 0975 1 Tablet(s) PO BID Needs APPT 12/21/2017 01/16/2018 Inactive omeprazole 40 mg capsule,delayed release RxNorm: 241609 TAKE 1 CAPSULE BY MOUTH TWICE DAILY 11/02/2017 01/22/2018 Inactive Celebrex 200 mg capsule RxNorm: 771933 1 Capsule(s) PO QD 11/01/2017 12/26/2017 Inactive Coumadin 5 mg tablet RxNorm: 468492 Tablet(s) TAKE ONE TABLET BY MOUTH ONCE DAILY. 10/31/2017 12/29/2017 Inactive warfarin 1 mg tablet RxNorm: 405240 1 Tablet(s) PO QD 10/31/201703/22 Inactive spironolactone 25 mg tablet RxNorm: 002095 TAKE TWO TAB LETS BY MOUTH IN THE MORNING 10/31/2017 04/23/2018 Inactive metformin ER 500 mg tablet,extended release 24 hr RxNorm: 86 0975 1 Tablet(s) PO BID Needs updated fasting lab 10/20/2017 12/21/2017 Inactive Medrol (Dale) 4 mg tablets in a dose pack RxNorm: 713350 Tablet(s) PO take as directed 10/12/2017 12/15/2017 Inactive Celebrex 200 mg capsule RxNorm: 661405 1 Capsule(s) PO QD 10/03/2017 10/02/2017 Inactive spironolactone 25 mg tablet RxNorm: 810015 TAKE TWO TAB LETS BY MOUTH IN THE MORNING 09/19/2017 10/30/2017 Inactive Zithromax Z-Dale 250 mg tablet RxNorm: 494666 Tablet(s) PO take as directed 09/16/2017 10/11/2017 Inactive Medrol (Dale) 4 mg tablets in a dose pack RxNorm: 610714 Tablet(s) take as directed PO 09/16/2017 10/11/2017 Inactive doxycycline hyclate 100 mg tablet RxNorm: 5663483 1 Tablet(s) PO BI D 09/16/2017 09/15/2017 Inactive doxycycline hyclate 100 mg tablet RxNorm: 2360668 1 Tablet(s) PO BI D 09/16/2017 09/25/2017 Inactive Tessalon Perles 100 mg capsule RxNorm: 291257 1 Capsule(s) PO T ID as needed 09/16/2017 12/15/2017 Inactive warfarin 1 mg tablet RxNorm: 872750 1 Tablet(s) PO QD 09/06/201710/19 Inactive Coumadin 5 mg tablet RxNorm: 122535 Tablet(s) TAKE ONE TABLET BY MOUTH ONCE DAILY. 09/06/2017 10/31/2017 Inactive Toprol XL 200 mg tablet,extended release RxNorm: 183428 1 Table t(s) PO QD 2017 01/02/2018 Inactive warfarin 1 mg tablet RxNorm: 850409 1 Tablet(s) PO QD DUE FOR L ABS AUGUST 12 08/29/2017 09/06/2017 Inactive Coumadin 5 mg tablet RxNorm: 816934 Tablet(s) TAKE ONE TABLET BY MOUTH ONCE DAILY. DUE FOR PT/INR AUGUST 12 08/29/2017 09/06/2017 Inactive Coumadin 5 mg tablet RxNorm: 274527 Tablet(s) TAKE ONE TABLET BY MOUTH ONCE DAILY. DUE FOR PT/INR AUGUST 12 08/01/2017 08/29/2017 Inactive warfarin 1 mg tablet RxNorm: 397731 1 Tablet(s) PO QD DUE FOR L ABS AUGUST 12 08/01/2017 08/29/2017 Inactive scopolamine 1 mg over 3 days transdermal patch RxNorm: 48645 2 1 TD take off in 72 hours. 08/01/2017 12/26/2017 Inactive pravastatin 40 mg tablet RxNorm: 672087 Tablet(s) TAKE ONE TABLET BY MOUTH ONCE DAILY 07/07/2017 01/02/2018 Inactive Coumadin 5 mg tablet RxNorm: 690443 Tablet(s) TAKE ONE TABLET BY MOUTH ONCE DAILY. DUE FOR PT/INR. 06/29/2017 08/01/2017 Inactive warfarin 1 mg tablet RxNorm: 389883 1 Tablet(s) PO QD 06/29/201707/19 Inactive Coumadin 5 mg tablet RxNorm: 310765 TAKE ONE TABLET BY MOUTH ONCE DAILY. DUE FOR PT/INR. 05/30/2017 06/29/2017 Inactive omeprazole 40 mg capsule,delayed release RxNorm: 124613 1 Capsu le(s) PO BID 05/30/2017 08/27/2017 Inactive Celebrex 200 mg capsule RxNorm: 339886 1 Capsule(s) PO QD 05/23/2017 10/03/2017 Inactive metformin ER 500 mg tablet,extended release 24 hr RxNorm: 86 0975 TAKE ONE TABLET BY MOUTH TWICE DAILY 05/20/2017 10/20/2017 Inactive Coumadin 5 mg tablet RxNorm: 331473 1 Tablet(s) PO QD due for PT/IN R 04/25/2017 05/24/2017 Inactive warfarin 1 mg tablet RxNorm: 768284 1 Tablet(s) PO QD due for l abs this week 03/16/2017 06/29/2017 Inactive omeprazole 40 mg capsule,delayed release RxNorm: 988665 1 Capsu le(s) PO BID 03/16/2017 05/30/2017 Inactive Celebrex 200 mg capsule RxNorm: 604055 1 Capsule(s) PO BID as n eeded for pain 03/16/2017 05/22/2017 Inactive Coumadin 5 mg tablet RxNorm: 072057 1 Tablet(s) PO QD due for PT/IN R 03/16/2017 04/14/2017 Inactive Celebrex 200 mg capsule RxNorm: 182370 1 Capsule(s) PO BID as n eeded for pain 02/09/2017 03/15/2017 Inactive Toprol XL 200 mg tablet,extended release RxNorm: 412769 1 Table t(s) PO QD 02/08/2017 2017 Inactive Celebrex 200 mg capsule RxNorm: 860562 1 Capsule(s) PO BID as n eeded for pain 01/14/2017 02/08/2017 Inactive omeprazole 40 mg capsule,delayed release RxNorm: 388325 1 Capsu le(s) PO BID 01/12/2017 03/16/2017 Inactive Coumadin 5 mg tablet RxNorm: 628259 1 Tablet(s) PO QD 12/15/201602/19 Inactive warfarin 1 mg tablet RxNorm: 625853 1 Tablet(s) PO QD 12/15/201602/19 Inactive metformin ER 500 mg tablet,extended release 24 hr RxNorm: 86 0975 Tablet(s) TAKE ONE TABLET BY MOUTH TWICE DAILY 11/29/2016 02/26/2017 Inactive omeprazole 40 mg capsule,delayed release RxNorm: 331719 1 Capsu le(s) PO BID 11/29/2016 12/28/2016 Inactive pravastatin 40 mg tablet RxNorm: 838821 Tablet(s) TAKE ONE TABLET BY MOUTH ONCE DAILY 11/19/2016 07/07/2017 Inactive omeprazole 40 mg capsule,delayed release RxNorm: 256534 1 Capsu le(s) PO BID 10/19/2016 10/18/2016 Inactive omeprazole 40 mg capsule,delayed release RxNorm: 171786 1 Capsu le(s) PO BID 10/19/2016 11/17/2016 Inactive pantoprazole 40 mg tablet,delayed release RxNorm: 493851 1 Tabl et(s) PO QD 09/30/2016 10/18/2016 Inactive pantoprazole 40 mg tablet,delayed release RxNorm: 836242 1 Tabl et(s) PO QD 09/30/2016 09/29/2016 Inactive Zofran ODT 4 mg disintegrating tablet RxNorm: 130658 1 Tablet(s) PO Q4H as needed for nausea 09/15/2016 01/02/2017 Inactive Coumadin 5 mg tablet RxNorm: 489676 1 Tablet(s) PO QD 09/14/201611/20 Inactive warfarin 1 mg tablet RxNorm: 443910 1 Tablet(s) PO QD 09/14/201611/20 Inactive spironolactone 25 mg tablet RxNorm: 650733 2 Tablet(s) PO QAM 09/0301/02/2017 Inactive Wellbutrin XL 300 mg 24 hr tablet, extended release RxNorm: 508645 TAKE ONE TABLET BY MOUTH ONCE DAILY 08/26/2016 12/26/2017 Inactive Toprol XL 200 mg tablet,extended release RxNorm: 772589 1 Table t(s) PO QD 07/28/2016 02/08/2017 Inactive metformin ER 500 mg tablet,extended release 24 hr RxNorm: 86 0975 Tablet(s) TAKE ONE TABLET BY MOUTH TWICE DAILY 07/15/2016 11/29/2016 Inactive cyclobenzaprine 5 mg tablet RxNorm: 499695 1 Tablet(s) PO QHS f or spasm 07/08/2016 08/06/2016 Inactive Celebrex 200 mg capsule RxNorm: 1 Capsule(s) PO BID 07/08/2016 Inactive spironolactone 25 mg tablet RxNorm: 822283 1 Tablet(s) PO QAM 07/0609/02/2016 Inactive Wellbutrin XL 300 mg 24 hr tablet, extended release RxNorm: 034738 TAKE ONE TABLET BY MOUTH ONCE DAILY 06/15/2016 07/14/2016 Inactive Coumadin 5 mg tablet RxNorm: 279568 1 Tablet(s) PO QD 06/08/201608/20 Inactive warfarin 1 mg tablet RxNorm: 133847 1 Tablet(s) PO QD 06/08/201608/20 Inactive Toprol XL 200 mg tablet,extended release RxNorm: 984239 TAKE ONE TABLET BY MOUTH ONCE DAILY 04/26/2016 07/28/2016 Inactive pravastatin 40 mg tablet RxNorm: 650254 TAKE ONE TABLET BY MOUT H ONCE DAILY 04/19/2016 10/15/2016 Inactive Coumadin 5 mg tablet RxNorm: 615828 1 Tablet(s) PO QD 03/09/201605/19 Inactive warfarin 1 mg tablet RxNorm: 102656 1 Tablet(s) PO QD 03/09/201605/19 Inactive metformin ER 500 mg tablet,extended release 24 hr RxNorm: 86 0975 TAKE ONE TABLET BY MOUTH TWICE DAILY 02/25/2016 07/15/2016 Inactive spironolactone 25 mg tablet RxNorm: 343416 TAKE ONE TAB LET BY MOUTH ONCE DAILY IN THE MORNING 02/25/2016 07/06/2016 Inactive prednisone 20 mg tablet RxNorm: 544768 1 Tablet(s) PO QAM 02/16/2016 02/20/2016 Inactive cefdinir 300 mg capsule RxNorm: 580303 2 Capsule(s) PO QD 02/16/2016 02/25/2016 Inactive Toprol XL 200 mg tablet,extended release RxNorm: 296655 TAKE ONE TABLET BY MOUTH ONCE DAILY 01/26/2016 04/24/2016 Inactive Aciphex 20 mg tablet,delayed release RxNorm: 891181 1 Tablet(s) PO BID 12/24/2015 09/29/2016 Inactive Omeprazole and Pepci d have not helped. Coumadin 5 mg tablet RxNorm: 621759 1 Tablet(s) PO QD 12/10/201502/19 Inactive Coumadin 5 mg tablet RxNorm: 609746 1 Tablet(s) PO QD 12/08/201511/20 Inactive Toprol XL 200 mg tablet,extended release RxNorm: 638681 TAKE ONE TABLET BY MOUTH ONCE DAILY 11/20/2015 01/18/2016 Inactive warfarin 1 mg tablet RxNorm: 532825 1 Tablet(s) PO QD 11/03/201502/19 Inactive pravastatin 40 mg tablet RxNorm: 968309 Tablet(s) TAKE ONE TABLET BY MOUTH ONCE DAILY 10/20/2015 01/17/2016 Inactive pravastatin 40 mg tablet RxNorm: 473969 TAKE ONE TABLET BY MOUT H ONCE DAILY 10/20/2015 10/19/2015 Inactive metformin ER 500 mg tablet,extended release 24 hr RxNorm: 86 0975 TAKE ONE TABLET BY MOUTH TWICE DAILY 10/03/2015 12/31/2015 Inactive Toprol XL 200 mg tablet,extended release RxNorm: 947222 TAKE ONE TABLET BY MOUTH ONCE DAILY 09/17/2015 11/15/2015 Inactive Coumadin 5 mg tablet RxNorm: 041801 1 Tablet(s) PO QD 09/02/201511/19 Inactive Wellbutrin XL 300 mg 24 hr tablet, extended release RxNorm: 378599 TAKE ONE TABLET BY MOUTH ONCE DAILY 08/01/2015 10/29/2015 Inactive Pepcid 20 mg tablet RxNorm: 326719 1 Tablet(s) PO BID as needed 05/24/2017 Inactive warfarin 1 mg tablet RxNorm: 656002 TAKE ONE TABLET BY MOUTH ON CE DAILY 07/08/2015 11/03/2015 Inactive pravastatin 40 mg tablet RxNorm: 918634 1 Tablet(s) PO QD 07/08/2015 10/05/2015 Inactive spironolactone 25 mg tablet RxNorm: 879538 TAKE ONE TAB LET BY MOUTH ONCE DAILY IN THE MORNING 06/13/2015 09/10/2015 Inactive Coumadin 5 mg tablet RxNorm: 746912 1 Tablet(s) PO QD 06/05/201508/19 Inactive Wellbutrin XL 300 mg 24 hr tablet, extended release RxNorm: 892102 TAKE ONE TABLET BY MOUTH ONCE DAILY 05/16/2015 09/26/2018 Inactive Wellbutrin XL 300 mg 24 hr tablet, extended release RxNorm: 725888 TAKE ONE TABLET BY MOUTH ONCE DAILY 05/16/2015 06/14/2015 Inactive metformin ER 500 mg tablet,extended release 24 hr RxNorm: 86 0975 TAKE ONE TABLET BY MOUTH TWICE DAILY 05/16/2015 08/13/2015 Inactive pravastatin 40 mg tablet RxNorm: 984687 1 Tablet(s) PO QD 04/10/2015 07/07/2015 Inactive Aciphex 20 mg tablet,delayed release RxNorm: 298420 1 Tablet(s) PO BID 03/07/2015 09/02/2015 Inactive Omeprazole and Pepci d have not helped. Toprol XL 200 mg tablet,extended release RxNorm: 927967 1 Table t(s) PO QD 03/05/2015 08/31/2015 Inactive Aciphex 20 mg tablet,delayed release RxNorm: 699118 1 Tablet(s) PO QD 03/04/2015 03/06/2015 Inactive Omeprazole and Pepci d have not helped. Coumadin 5 mg tablet RxNorm: 736990 1 Tablet(s) PO QD 02/28/201511/2015 Inactive Aciphex 20 mg tablet,delayed release RxNorm: 581298 1 Tablet(s) PO BID 02/11/2015 03/03/2015 Inactive Omeprazole and Pepci d have not helped. metformin ER 500 mg tablet,extended release 24 hr RxNorm: 86 0975 1 Tablet(s) PO BID 01/10/2015 04/09/2015 Inactive pravastatin 40 mg tablet RxNorm: 313973 1 Tablet(s) PO QD 01/06/2015 04/05/2015 Inactive Wellbutrin XL 300 mg 24 hr tablet, extended release RxNorm: 638272 TAKE ONE TABLET BY MOUTH ONCE DAILY 12/19/2014 02/16/2015 Inactive amoxicillin 500 mg capsule RxNorm: 569979 2 Capsule(s) PO BID 12/0612/15/2014 Inactive Flonase 50 mcg/actuation nasal spray,suspension RxNorm: 8963 23 2 [place] each nostril NASAL QD 12/06/2014 03/05/2015 Inactive Coumadin 5 mg tablet RxNorm: 899196 1 Tablet(s) PO QD 11/28/201410/2014 Inactive spironolactone 25 mg tablet RxNorm: 228604 1 Tablet(s) PO QAM 11/2602/23/2015 Inactive Coumadin 5 mg tablet RxNorm: 526193 1 Tablet(s) PO QD 1 Tablet(s) PO QD- NEED TO CHECK LABS 10/30/2014 11/28/2014 Inactive warfarin 1 mg tablet RxNorm: 756390 1 Tablet(s) PO QD 10/30/201409/2015 Inactive Aciphex 20 mg tablet,delayed release RxNorm: 388254 1 Tablet(s) PO QD 10/02/2014 02/10/2015 Inactive Omeprazole and Pepci d have not helped. Coumadin 5 mg tablet RxNorm: 451360 1 Tablet(s) PO QD 1 Tablet(s) PO QD- NEED TO CHECK LABS 09/30/2014 10/30/2014 Inactive pravastatin 40 mg tablet RxNorm: 390269 1 Tablet(s) PO QD 09/25/2014 01/06/2015 Inactive warfarin 1 mg tablet RxNorm: 865750 1 Tablet(s) PO QD T [place] ONE TABLET BY MOUTH DIRECTED ON MON AND THUR 08/28/2014 10/29/2014 Inactive metformin ER 500 mg tablet,extended release 24 hr RxNorm: 86 0975 1 Tablet(s) PO BID 08/28/2014 01/10/2015 Inactive amoxicillin 875 mg tablet RxNorm: 491587 1 Tablet(s) PO BID 015 08/18/2014 Inactive Toprol XL 200 mg tablet,extended release RxNorm: 925756 TAKE ONE TABLET BY MOUTH ONCE DAILY 07/22/2014 03/05/2015 Inactive Coumadin 5 mg tablet RxNorm: 197336 1 Tablet(s) PO QD 07/01/201409/18 Inactive amoxicillin 875 mg tablet RxNorm: 368335 1 Tablet(s) PO BID 015 06/30/2014 Inactive pravastatin 40 mg tablet RxNorm: 388914 1 Tablet(s) PO QD needs fasting labs 06/19/2014 09/25/2014 Inactive Coumadin 5 mg tablet RxNorm: 072349 1 Tablet(s) PO QD 1 Tablet(s) PO QD TAKE ONE TABLET BY MOUTH ONCE DAILY-need labs 05/28/2014 07/01/2014 Inactive warfarin 1 mg tablet RxNorm: 603165 1 Tablet(s) PO As Directed 05/1908/28/2014 Inactive pravastatin 40 mg tablet RxNorm: 835868 1 Tablet(s) PO QD needs fasting labs 05/14/2014 06/19/2014 Inactive metformin ER 500 mg tablet,extended release 24 hr RxNorm: 86 0975 1 Tablet(s) PO BID 04/25/2014 08/28/2014 Inactive spironolactone 25 mg tablet RxNorm: 395347 1 Tablet(s) PO QAM 04/2511/26/2014 Inactive Coumadin 5 mg tablet RxNorm: 975823 1 Tablet(s) PO QD 1 Tablet(s) PO QD TAKE ONE TABLET BY MOUTH ONCE DAILY 04/23/2014 05/28/2014 Inactive Coumadin 5 mg tablet RxNorm: 027261 1 Tablet(s) PO QD 1 Tablet(s) PO QD TAKE ONE TABLET BY MOUTH ONCE DAILY 03/22/2014 04/20/2014 Inactive Tessalon Perles 100 mg capsule RxNorm: 730708 1 Capsule(s) PO TID 0 03/22/2014 03/28/2014 Inactive cefdinir 300 mg capsule RxNorm: 056811 2 Capsule(s) PO QD 03/22/2014 03/31/2014 Inactive Medrol (Dale) 4 mg tablets in a dose pack RxNorm: 711076 Tablet(s) PO as directed 03/05/2014 08/08/2014 Inactive Coumadin 5 mg tablet RxNorm: 381740 1 Tablet(s) PO QD 1 Tablet(s) PO QD TAKE ONE TABLET BY MOUTH ONCE DAILY 02/19/2014 03/20/2014 Inactive pravastatin 40 mg tablet RxNorm: 725635 1 Tablet(s) PO QD 02/04/2014 05/14/2014 Inactive Coumadin 5 mg tablet RxNorm: 164797 1 Tablet(s) PO QD T [place] ONE TABLET BY MOUTH ONCE DAILY 01/21/2014 02/19/2014 Inactive Medrol (Dale) 4 mg tablets in a dose pack RxNorm: 667652 Tablet(s) PO as directed 01/18/2014 03/04/2014 Inactive cefdinir 300 mg capsule RxNorm: 164413 2 Capsule(s) PO QD 01/16/2014 01/25/2014 Inactive metformin ER 500 mg tablet,extended release 24 hr RxNorm: 86 0975 1 Tablet(s) PO BID 12/17/2013 04/25/2014 Inactive Wellbutrin SR 150 mg tablet,sustained-release RxNorm: 802124 1 Tablet(s) PO BID 11/30/2013 02/27/2014 Inactive spironolactone 25 mg tablet RxNorm: 967846 1 Tablet(s) PO QAM 10/2204/25/2014 Inactive Macrobid 100 mg capsule RxNorm: 371469 1 Capsule(s) PO BID 10/20/19 14 10/25/2013 Inactive Macrobid 100 mg capsule RxNorm: 771816 1 Capsule(s) PO BID 10/20/19 14 10/18/2013 Inactive Toprol XL 100 mg tablet,extended release RxNorm: 997159 1 Table t(s) PO QD 10/15/2013 01/15/2014 Inactive Toprol XL 200 mg tablet,extended release RxNorm: 765297 1 Table t(s) PO QD 10/02/2013 07/22/2014 Inactive Wellbutrin XL 300 mg 24 hr tablet, extended release RxNorm: 600261 1 Tablet(s) PO QD 09/28/2013 12/19/2014 Inactive Aciphex 20 mg tablet,delayed release RxNorm: 455276 1 Tablet(s) PO QD 08/29/2013 10/02/2014 Inactive Omeprazole and Pepci d have not helped. Coumadin 5 mg tablet RxNorm: 607167 1 Tablet(s) PO QD 08/14/201307/20 Inactive Coumadin 5 mg tablet RxNorm: 169134 1 Tablet(s) PO QD 08/14/201305/2013 Inactive pravastatin 40 mg tablet RxNorm: 987632 1 Tablet(s) PO QD 07/24/2013 02/04/2014 Inactive warfarin 1 mg tablet RxNorm: 092190 1 Tablet(s) PO QD T [place] ONE TABLET BY MOUTH DIRECTED ON MON AND THUR 07/09/2013 05/28/2014 Inactive warfarin 5 mg tablet RxNorm: 811191 1 Tablet(s) PO QD T [place] ONE TABLET BY MOUTH EVERY DAY 06/08/2013 07/07/2013 Inactive spironolactone 25 mg tablet RxNorm: 259900 1 Tablet(s) PO QAM 05/3010/15/2013 Inactive clindamycin 300 mg capsule RxNorm: 221227 2 Capsule(s) PO TID 04/1704/30/2013 Inactive warfarin 5 mg tablet RxNorm: 257306 1 Tablet(s) PO QD 03/12/201305/20 Inactive azithromycin 250 mg tablet RxNorm: 800307 2 Tablet(s) PO QD 013 03/07/2013 Inactive metformin ER 500 mg tablet,extended release 24 hr RxNorm: 86 0975 1 Tablet(s) PO BID 02/22/2013 12/17/2013 Inactive spironolactone 25 mg tablet RxNorm: 160273 1 Tablet(s) PO QAM 01/2205/30/2013 Inactive metformin ER 500 mg tablet,extended release 24 hr RxNorm: 86 0977 1 Tablet(s) PO BID 01/11/2013 02/21/2013 Inactive pravastatin 40 mg tablet RxNorm: 408786 1 Tablet(s) PO QD 01/11/2013 07/24/2013 Inactive warfarin 5 mg tablet RxNorm: 457647 1 Tablet(s) PO QD 01/04/201302/19 Inactive warfarin 1 mg tablet RxNorm: 823641 Tablet(s) PO TAKE O NE TABLET BY MOUTH DIRECTED ON MON AND THUR 12/14/2012 07/08/2013 Inactive scopolamine 1.5 mg 72 hr Transderm Patch RxNorm: 543718 TD Apply 1 patch behind ear every 72 hours, replace after 3 days. 11/08/2012 01/15/2014 Inacti ve Pepcid 20 mg tablet RxNorm: 465730 1 Tablet(s) PO BID as needed 01/31/2013 Inactive Famvir 500 mg tablet RxNorm: 327606 1 Tablet(s) PO Q8H 11/03/2012 Inactive Aciphex 20 mg tablet,delayed release RxNorm: 584236 1 Tablet(s) PO QD 11/03/2012 05/01/2013 Inactive Omeprazole and Pepci d have not helped. gabapentin 300 mg capsule RxNorm: 506003 Capsule(s) PO TID 11/04/19 13 01/15/2014 Inactive warfarin 5 mg tablet RxNorm: 306046 1 Tablet(s) PO QD 11/02/201212/19 Inactive Wellbutrin XL 300 mg 24 hr tablet, extended release RxNorm: 703112 1 Tablet(s) PO QD 10/17/2012 04/30/2013 Inactive pravastatin 40 mg tablet RxNorm: 876455 Tablet(s) PO TA KE ONE TABLET BY MOUTH EVERY DAY. NEED FASTING LABS 09/18/2012 01/10/2013 Inactive Toprol XL 200 mg tablet,extended release RxNorm: 762215 Tablet(s) PO TAKE ONE TABLET BY MOUTH EVERY DAY 09/08/2012 10/01/2013 Inactive warfarin 5 mg tablet RxNorm: 104223 1 Tablet(s) PO QD 08/31/201210/19 Inactive pravastatin 40 mg tablet RxNorm: 971521 1 Tablet(s) PO QD Needs fasting labs 08/18/2012 09/16/2012 Inactive TAKE ONE TABLET BY M OUTH EVERY DAY warfarin 1 mg tablet RxNorm: 958582 1 Tablet(s) PO As directed on Mon and Th08/11/2012 12/13/2012 Inactive spironolactone 25 mg tablet RxNorm: 966685 1 Tablet(s) PO QAM 07/1110/08/2012 Inactive warfarin 5 mg tablet RxNorm: 329798 1 Tablet(s) PO QD 07/03/201208/19 Inactive Diflucan 100 mg tablet RxNorm: 098655 1 Tablet(s) PO QD 05/04/2012 Inactive Cipro 500 mg tablet RxNorm: 664172 1 Tablet(s) PO BID 05/04/201204/22 Inactive Aciphex 20 mg tablet,delayed release RxNorm: 354825 1 Tablet(s) PO QD 05/04/2012 07/02/2012 Inactive Omeprazole and Pepci d have not helped. warfarin 5 mg tablet RxNorm: 553465 1 Tablet(s) PO QD 05/02/201206/19 Inactive warfarin 5 mg tablet RxNorm: 299809 1 Tablet(s) PO QD 03/02/201204/21 Inactive Toprol XL 200 mg tablet,extended release RxNorm: 784997 1 Table t(s) PO QD 03/02/2012 05/30/2012 Inactive spironolactone 25 mg tablet RxNorm: 394098 1 Tablet(s) PO QAM 02/0707/11/2012 Inactive pravastatin 40 mg tablet RxNorm: 854544 Tablet(s) PO 01/31/201208/17 Inactive TAKE ONE TABLET BY MOUTH EVERY DAY pravastatin 40 mg tablet RxNorm: 688035 1 Tablet(s) PO QD 01/31/2012 08/18/2012 Inactive omeprazole 40 mg capsule,delayed release RxNorm: 819777 1 Capsule(s) PO QD for stomach 01/11/2012 11/02/2012 Inactive for stomach warfarin 5 mg tablet RxNorm: 730937 1 Tablet(s) PO QD 01/03/201202/18 Inactive warfarin 5 mg tablet RxNorm: 722902 1 Tablet(s) PO QD 12/03/201112/19 Inactive pravastatin 40 mg tablet RxNorm: 408397 1 Tablet(s) PO QD 11/25/2011 01/23/2012 Inactive cefdinir 300 mg Cap RxNorm: 311408 1 Capsule(s) PO BID 10/11/201103/2011 Inactive Culturelle 10 billion cell Cap RxNorm: 626274 1 Capsule(s) PO BID 0 10/11/2011 11/09/2011 Inactive Diflucan 100 mg Tab RxNorm: 489685 1 Tablet(s) PO QD 10/11/201110/19 Inactive Wellbutrin XL 300 mg 24 hr tablet, extended release RxNorm: 933920 1 Tablet(s) PO QD 09/14/2011 10/17/2012 Inactive pravastatin 40 mg tablet RxNorm: 590482 1 Tablet(s) PO QD 08/25/2011 11/25/2011 Inactive Coumadin 5 mg tablet RxNorm: 068631 Tablet(s) PO Take as direct ed by doctor. 07/07/2011 12/03/2011 Inactive Singulair 10 mg Tab RxNorm: 985036 1 Tablet(s) PO QD al lergy medication. (Please try to be consistent in dosing) 06/23/2011 01/15/2014 Inactive Diflucan 100 mg Tab RxNorm: 353714 1 Tablet(s) PO QD 06/14/201107/02 Inactive cefdinir 300 mg Cap RxNorm: 129310 1 Capsule(s) PO BID 06/14/201106/2011 Inactive pravastatin 40 mg Tab RxNorm: 732901 1 Tablet(s) PO QD 05/25/201108/2011 Inactive warfarin 5 mg Tab RxNorm: 482670 Tablet(s) PO 05/25/2011 10/18/2011 In active TAKE ONE TABLET BY MOUTH EVERY DAY Toprol XL 200 mg tablet,extended release RxNorm: 411620 1 Table t(s) PO QD 03/05/2011 06/02/2011 Inactive spironolactone 25 mg tablet RxNorm: 403104 1 Tablet(s) PO QAM 02/2402/08/2012 Inactive omeprazole 40 mg capsule,delayed release RxNorm: 518682 1 Capsule(s) PO QD for stomach 01/06/2011 01/11/2012 Inactive for stomach warfarin 5 mg Tab RxNorm: 550290 1 Tablet(s) PO QD 12/17/2010 011 Inactive warfarin 5 mg Tab RxNorm: 466188 1 Tablet(s) PO QD 11/18/2010 011 Inactive spironolactone 25 mg Tab RxNorm: 180865 1 Tablet(s) PO QAM 11/13/19 11 02/24/2011 Inactive Coumadin 6 mg Tab RxNorm: 265774 1 Tablet(s) PO QD 10/28/2010 011 Inactive May have generic hydrochlorothiazide 25 mg Tab RxNorm: 941859 1 Tablet(s) PO QAM 11/11/2010 Inactive Wellbutrin XL 300 mg 24 hr Tab RxNorm: 544779 1 Tablet(s) PO QD 09/14/2011 Inactive Septra DS 800 mg-160 mg Tab RxNorm: 546631 1 Tablet(s) PO BID 06/0806/17/2010 Inactive Pyridium 100 mg Tab RxNorm: 4925717 1 Tablet(s) PO TID 06/08/2010 Inactive Wellbutrin XL 300 mg 24 hr Tab RxNorm: 314679 1 Tablet(s) PO QD 05/201007/15/2010 Inactive hydroxyzine 25 mg Tab RxNorm: 805968 1 Tablet(s) PO QID prn itching--take routinely at bedtime. (pt. may not refil at this time but later) 05/20/2010 10/10/2011 Inactive Zyrtec 10 mg Tab RxNorm: 1208260 1 Tablet(s) PO BID 05/20/20102010 Inactive Coumadin 1 mg Tab RxNorm: 559479 1 Tablet(s) PO 6mg M-F, 7mg S-S 11/16/2010 Inactive hydroxyzine 25 mg Tab RxNorm: 214508 1 Tablet(s) PO QID prn itching--take routinely at bedtime 04/30/2010 05/19/2010 Inactive Toprol XL 200 mg 24 hr Tab RxNorm: 092627 1 Tablet(s) PO QD 011 06/23/2010 Inactive lisinopril-hydrochlorothiazide 10 mg-12.5 mg Tab RxNorm: 197 885 1 Tablet(s) PO QD 04/20/2010 04/29/2010 Inactive omeprazole 40 mg Cap, Delayed Release RxNorm: 278549 1 Capsule(s) PO QD for stomach 04/20/2010 08/17/2010 Inactive lisinopril-hydrochlorothiazide 10 mg-12.5 mg Tab RxNorm: 197 885 Tablet(s) PO 1QDAM - TAKE ONE TABLET BY MOUTH EVERY DAY IN THE MORNING 03/09/2010 Inactive lisinopril-hydrochlorothiazide 10 mg-12.5 mg Tab RxNorm: 197 885 1 Tablet(s) PO QD 02/27/2010 04/20/2010 Inactive Wellbutrin XL 300 mg 24 hr Tab RxNorm: 211659 1 Tablet(s) PO QD 05/21/2010 Inactive lisinopril-hydrochlorothiazide 10 mg-12.5 mg Tab RxNorm: 197 885 1 Tablet(s) PO QD 01/28/2010 02/26/2010 Inactive omeprazole 40 mg Cap, Delayed Release RxNorm: 005446 1 Capsule(s) PO QD for stomach 01/22/2010 04/20/2010 Inactive Altace 10 mg Cap RxNorm: 999390 1 Capsule(s) PO QD for BP 01/22/2010 03/22/2010 Inactive Coumadin 6 mg Tab RxNorm: 279201 1 Tablet(s) PO QD May have generic 12/03/2009 05/01/2010 Inactive Coumadin 6 mg Tab RxNorm: 885103 1 Tablet(s) PO 12/01/2009 12/02/2009 Inactive Coumadin 1 mg Tab RxNorm: 765722 1 Tablet(s) PO QD 11/28/2009 010 Inactive Coumadin 1 mg Tab RxNorm: 327055 1 Tablet(s) PO QD 07/02/2009 010 Inactive lisinopril-hydrochlorothiazide 20 mg-12.5 mg Tab RxNorm: 197 886 2 Tablet(s) PO QAM No Start Date 10/12/2010 Inactive Zofran ODT 4 mg disintegrating tablet RxNorm: 322807 1 Tablet(s) PO Q6H as needed for nausea No Start Date 09/14/2016 Inactive Wellbutrin XL 300 mg 24 hr Tab RxNorm: 595382 1 Tablet(s) PO QD No Start Date 02/02/2010 Inactive alprazolam 0.25 mg tablet RxNorm: 914057 1 Tablet(s) PO prior t o flight No Start Date 05/24/2017 Inactive hydrocodone-acetaminophen 5 mg-500 mg Tab RxNorm: 024651 1-2 Tablet(s) PO Q4H as needed for pain No Start Date 12/02/2010 Inactive Toprol XL 100 mg 24 hr Tab RxNorm: 983088 1 Tablet(s) PO QD No Star t Date 10/14/2013 Inactive Celebrex 200 mg capsule RxNorm: 089143 1 Capsule(s) PO QD No Start Date 05/22/2017 Inactive Flexeril 10 mg tablet RxNorm: 726890 1 Tablet(s) PO TID No Start Da te 04/02/2019 Inactive scopolamine 1 mg over 3 days transdermal patch RxNorm: 05817 2 1 TD take off in 72 hours. No Start Date 07/31/2017 Inactive OneTouch Ultra Test strips RxNorm: Test blood sugar daily No S tart Date 04/23/2018 Inactive Medrol (Dale) 4 mg tablets in a dose pack RxNorm: 664381 Tablet(s) PO As directed No Start Date 01/15/2014 Inactive Coumadin 5 mg Tab RxNorm: 416180 1 Tablet(s) PO QD No Start Date 06/19 Inactive Pepcid 40 mg Tab RxNorm: 242978 1 Tablet(s) PO QD No Start Date 06/23 Inactive prednisone 10 mg Tab RxNorm: 272545 1 Tablet(s) PO BID No Start Date 06/23/2010 Inactive spironolactone 25 mg tablet RxNorm: 867453 1 Tablet(s) PO QAM No St art Date 09/26/2018 Inactive scopolamine 1.5 mg 72 hr Transderm Patch RxNorm: 884827 TD Apply 1 patch behind ear every 72 hours, replace after 3 days. No Start Date 11/07/2012 Inacti ve azithromycin 250 mg Tab RxNorm: 618109 Tablet(s) PO 2 t abs on day one and one tab on days 2-5. (antibiotic) No Start Date 10/10/2011 Inactive Medrol (Dale) 4 mg Tabs in a Dose Pack RxNorm: 583260 1 Tablet(s) PO as directed. (steroid pack) No Start Date 10/10/2011 Inactive Lovenox 40 mg/0.4 mL subcutaneous syringe RxNorm: 276774 40 Mil ligram(s) SQ QD No Start Date 05/04/2018 Inactive Celebrex 200 mg capsule RxNorm: 690380 1 Capsule(s) PO BID as n eeded for pain No Start Date 01/13/2017 Inactive warfarin 1 mg tablet RxNorm: 718704 1 Tablet(s) PO As directed on Tue and No Start Date 08/10/2012 Inactive cefuroxime axetil 500 mg Tab RxNorm: 745604 1 Tablet(s) PO BID No S tart Date 06/13/2011 Inactive Lovenox 40 mg/0.4 mL subcutaneous syringe RxNorm: 877234 40 Mil ligram(s) SQ QD No Start Date 01/26/2018 Inactive Coumadin 5 mg tablet RxNorm: 492743 1 Tablet(s) PO QD No Start Date 0 08/13/2013 Inactive Medrol (Dale) 4 mg tablets in a dose pack RxNorm: 884223 Tablet(s) PO as directed No Start Date 01/17/2014 Inactive Coumadin 6 mg tablet RxNorm: 883472 1 Tablet(s) PO QD No Start Date 0 06/20/2016 Inactive warfarin 5 mg tablet RxNorm: 321667 1 Tablet(s) PO QD No Start Date 0 12/02/2011 Inactive Medrol (Dale) 4 mg Tabs in a Dose Pack RxNorm: 818480 Tablet(s) PO as directed No Start Date 06/23/2010 Inactive Flonase 50 mcg/actuation nasal spray,suspension RxNorm: 8963 23 2 [place] NASAL BID No Start Date 12/05/2014 Inactive Pepcid 20 mg tablet RxNorm: 517465 1 Tablet(s) PO BID as needed No Start Date 11/02/2012 Inactive spironolactone 25 mg tablet RxNorm: 765388 1 Tablet(s) PO QAM No St art Date 04/02/2019 Inactive Medication Administered No Medication Administered data Immunizations No Immunization data Results Observation Observation Code Item Item Code Result Date S ervice Location MICROALBUMIN URINE RANDOM 08678 CREAT MG/D 139 MG/DL Unknown MICROALBUMIN URINE RANDOM 61936 CRE/100 1.39 G/L 12/20 Unknown Procedures Procedure Codes Date URINALYSIS NONAUTO W/O SCOPE CPT-4: 42378 09/27/2018 URINE CULTURE/ COLONY COUNT CPT-4: 89848 09/27/2018 URINALYSIS NONAUTO W/O SCOPE CPT-4: 78670 10/13/2017 URINE CULTURE/ COLONY COUNT CPT-4: 27514 10/13/2017 STREP A ASSAY W/OPTIC CPT-4: 36820 06/21/2016 STREP A ASSAY W/OPTIC CPT-4: 14345 06/24/2014 THER/PROPH/DIAG INJ SC/IM CPT-4: 84151 03/22/2014 METHYLPREDNISOLONE 40 MG INJ CPT-4: J1030 03/22/2014 TRIAMCINOLONE ACET INJ NOS CPT-4: J3301 03/22/2014 URINALYSIS NONAUTO W/O SCOPE CPT-4: 64135 10/19/2013 URINE CULTURE/ COLONY COUNT CPT-4: 01986 10/19/2013 CEFTRIAXONE SODIUM INJECTION CPT-4: J0696 03/02/2013 THER/PROPH/DIAG INJ SC/IM CPT-4: 83014 03/02/2013 CEFTRIAXONE SODIUM INJECTION CPT-4: J0696 03/01/2013 THER/PROPH/DIAG INJ SC/IM CPT-4: 22222 03/01/2013 THER/PROPH/DIAG INJ SC/IM CPT-4: 66485 03/01/2013 METHYLPREDNISOLONE 40 MG INJ CPT-4: J1030 03/01/2013 TRIAMCINOLONE ACET INJ NOS CPT-4: J3301 03/01/2013 MICROALBUMIN QUANTITATIVE CPT-4: 91156 01/11/2013 URINE CULTURE/ COLONY COUNT CPT-4: 91745 05/04/2012 URINALYSIS NONAUTO W/O SCOPE CPT-4: 32250 05/04/2012 URINE CULTURE/ COLONY COUNT CPT-4: 40213 05/29/2010 TRIAMCINOLONE ACET INJ NOS CPT-4: J3301 05/20/2010 METHYLPREDNISOLONE 40 MG INJ CPT-4: J1030 05/20/2010 THER/PROPH/DIAG INJ SC/IM CPT-4: 18790 05/20/2010 Vital Signs Date Vital 05/09/2019 Blood [...] 1: 134/78 Code: 8480-6 BMI: 35.1 Code: 42274-5 Heart Rate 1: 76 bpm Height: 5'9" Respiratory Rate: 20 bpm Temperature: 36 .6 (C) / 97.8 (F) Weight: 238 lbs 12/27/2017 Blood Pressure 1: 126/64 Code: 8480-6 BMI: 34.7 Code: 13176-1 Heart Rate 1: 72 bpm Height: 5'9" Respiratory Rate: 20 bpm Temperature: 36 .8 (C) / 98.2 (F) Weight: 235 lbs 10/12/2017 Blood Pressure 1: 142/80 Code: 8480-6 BMI: 35.1 Code: 57476-3 Heart Rate 1: 98 bpm Height: 5'9" Respiratory Rate: 22 bpm SpO2: 100% Tempera ture: 36.5 (C) / 97.7 (F) Weight: 238 lbs 09/16/2017 Blood Pressure 1: 136/82 Code: 8480-6 BMI: 34.1 Code: 68540-9 Heart Rate 1: 82 bpm Height: 5'9" Respiratory Rate: 18 bpm SpO2: 96% Tempera ture: 36.3 (C) / 97.3 (F) Weight: 231 lbs 05/25/2017 Blood Pressure 1: 122/82 Code: 8480-6 BMI: 32.3 Code: 48713-6 Heart Rate 1: 116 bpm Height: 5'9" Respiratory Rate: 20 bpm SpO2: 98% Tempera ture: 35.6 (C) / 96.1 (F) Weight: 219 lbs 01/03/2017 Blood Pressure 1: 126/78 Code: 8480-6 BMI: 33.4 Code: 14187-2 Heart Rate 1: 72 bpm Height: 5'9" Respiratory Rate: 20 bpm Temperature: 36 .8 (C) / 98.2 (F) Weight: 226 lbs 09/23/2016 Blood Pressure 1: 126/82 Code: 8480-6 BMI: 33.8 Code: 87713-4 Heart Rate 1: 80 bpm Height: 5'9" Respiratory Rate: 20 bpm SpO2: 97% Tempera ture: 36.8 (C) / 98.2 (F) Weight: 229 lbs 09/03/2016 Blood Pressure 1: 188/64 Code: 8480-6 Bl ood Pressure 2: 166/92 Code: 8480-6 BMI: 34.4 Code: 05576-3 Heart Rate 1: 66 bpm Height: 5'9" Res piratory Rate: 20 bpm SpO2: 98% Temperature: 35.7 (C) / 96.2 (F) Weight: 233 lbs 07/08/2016 Blood Pressure 1: 134/82 Code: 8480-6 Heart Rate 1: 64 bpm Height: 5'9" Respiratory Rate: 20 bpm SpO2: 97% Temperature: 36.6 (C) / 97.8 (F) Weight: 06/21/2016 Blood Pressure 1: 112/68 Code: 8480-6 BMI: 33.8 Code: 32608-8 Heart Rate 1: 64 bpm Height: 5'9" Respiratory Rate: 20 bpm SpO2: 95% Tempera ture: 36.3 (C) / 97.3 (F) Weight: 229 lbs 02/23/2016 Blood Pressure 1: 128/78 Code: 8480-6 BMI: 33.4 Code: 31252-7 Heart Rate 1: 74 bpm Height: 5'9" [...] 1: 122/80 Code: 8480-6 BMI: 32.2 Code: 55532-7 Heart Rate 1: 80 bpm Height: 5'9" Respiratory Rate: 20 bpm Temperature: 37 .0 (C) / 98.6 (F) Weight: 218 lbs 08/09/2014 Blood Pressure 1: 132/84 Code: 8480-6 BMI: 33.1 Code: 10024-2 Heart Rate 1: 72 bpm Height: 5'9" Respiratory Rate: 20 bpm Temperature: 36 .7 (C) / 98.0 (F) Weight: 224 lbs 06/24/2014 Blood Pressure 1: 132/80 Code: 8480-6 BMI: 32.8 Code: 05693-0 Heart Rate 1: 68 bpm Height: 5'9" Respiratory Rate: 20 bpm Temperature: 36 .4 (C) / 97.6 (F) Weight: 222 lbs 03/22/2014 Blood Pressure 1: 128/84 Code: 8480-6 BMI: 32.5 Code: 55526-2 Heart Rate 1: 78 bpm Height: 5'9" Respiratory Rate: 22 bpm Temperature: 36 .0 (C) / 96.8 (F) Weight: 220 lbs 03/05/2014 Blood Pressure 1: 124/78 Code: 8480-6 BMI: 31.9 Code: 13087-0 Heart Rate 1: 82 bpm Height: 5'9" Respiratory Rate: 20 bpm Temperature: 35 .8 (C) / 96.4 (F) Weight: 216 lbs 01/16/2014 Blood Pressure 1: 116/68 Code: 8480-6 BMI: 33.8 Code: 18336-9 Heart Rate 1: 72 bpm Height: 5'7" Respiratory Rate: 20 bpm Temperature: 36 .6 (C) / 97.9 (F) Weight: 216 lbs 05/10/2013 Blood Pressure 1: 124/86 Code: 8480-6 BMI: 34.3 Code: 24327-1 Heart Rate 1: 84 bpm Height: 5'7" [...] 1: 116/84 Code: 8480-6 BMI: 33.1 Code: 50611-5 Heart Rate 1: 64 bpm Height: 5'9" Respiratory Rate: 20 bpm Temperature: 36 .4 (C) / 97.6 (F) Weight: 224 lbs 01/11/2013 Blood Pressure 1: 126/84 Code: 8480-6 BMI: 35.3 Code: 73283-2 Heart Rate 1: 68 bpm Height: 5'9" Respiratory Rate: 20 bpm Temperature: 36 .7 (C) / 98.1 (F) Weight: 239 lbs 11/03/2012 Blood Pressure 1: 104 Code: 8480-6 BMI: 34.4 Code: 69767-2 Heart Rate 1: 72 bpm Height: 5'9" Respiratory Rate: 20 bpm Temperature: 36 .8 (C) / 98.3 (F) Weight: 233 lbs 05/04/2012 Blood Pressure 1: 12474 Code: 8480-6 BMI: 33.7 Code: 38400-2 Heart Rate 1: 84 bpm Height: 5'9" Temperature: 36.3 (C) / 97.3 (F) Weight: 228 lbs 10/11/2011 Blood Pressure 1: 11070 Code: 8480-6 BMI: 33.7 Code: 89196-4 Heart Rate 1: 64 bpm Height: 5'9" Temperature: 36.8 (C) / 98.3 (F) Weight: 228 lbs 06/23/2011 Blood Pressure 1: 114 Code: 8480-6 BMI: 33.4 Code: 37392-2 Heart Rate 1: 80 bpm Height: 5'9" Respiratory Rate: 20 bpm Temperature: 36 .7 (C) / 98.0 (F) Weight: 226 lbs 06/14/2011 Blood Pressure 1: 118 Code: 8480-6 BMI: 33.4 Code: 63934-3 Heart Rate 1: 80 bpm Height: 5'9" [...] 1: 126/82 Code: 8480-6 BMI: 32.6 Code: 87325-3 Heart Rate 1: 68 bpm Height: 5'9" [...] 1: 140/92 Code: 8480-6 BMI: 31.3 Code: 92485-7 Heart Rate 1: 60 bpm Height: 5'10" [...] upper back on 08/13/16 while camping around [place], [place]. Patient states is tender around tick [...] 01/22/2010 Encounters Encounter Performer Location Codes Date ([id number]) OFFICE/OUTPATIENT VISIT EST Diagnosis: Type 2 diabetes mellitus without complications[ICD10: E11.9] Jessica GEE DO [facility] CPT-4: 07136 05/09/2019 ([id number]) OFFICE/OUTPATIENT VISIT EST Diagnosis: Type 2 diabetes mellitus without complications[ICD10: E11.9] Diagnosis: Essential hypertension[ICD10: I10] Jessica Marlen GEE [facility] CPT-4: 67659 04/03/2019 ([id number]) OFFICE/OUTPATIENT VISIT EST Diagnosis: Gastro-esophageal reflux disease without esophagitis[ICD10: K21.9] Diagnosis: Urinary tract infection, site not specified[ICD10: N39.0] Diagnosis: Ventral hernia without obstruction or gangrene[ICD10: K43.9] Jessica SMITHLINE Monica GEE [facility] CPT-4: 68048 09/27/2018 ([id number]) OFFICE/OUTPATIENT VISIT EST Diagnosis: Essential (primary) hypertension[ICD10: I10] Diagnosis: Type 2 diabetes mellitus without complications[ICD10: E11.9] Diagnosis: Carpal tunnel syndrome, right upper limb[ICD10: G56.01] Diagnosis: Primary insomnia[ICD10: F51.01] [facility] 66[facility] 04/24/2018 ([id number]) OFFICE/OUTPATIENT VISIT EST Diagnosis: Type 2 diabetes mellitus without complications[ICD10: E11.9] Diagnosis: Mixed hyperlipidemia[ICD10: E78.2] Diagnosis: Essential (primary) hypertension[ICD10: I10] Diagnosis: Pain in unspecified joint[ICD10: M25.50] Jessica Michaelaaronderek SMITHJESSICA Monica [facility] CPT-4: 79424 12/27/2017 ([id number]) NURSE/OUTPATIENT VISIT EST Diagnosis: Hematuria, unspecified[ICD10: R31.9] Jessica Michaelaaronderek SMITH ABNER [facility] 47805 10/13/2017 ([id number]) OFFICE/OUTPATIENT VISIT EST Diagnosis: Pleurodynia[ICD10: R07.81] Sofi SMITHLINE [facility] 69028 10/12/2017 ([id number]) OFFICE/OUTPATIENT VISIT EST Diagnosis: Acute bronchitis, unspecified[ICD10: J20.9] Sofi GEE DO [facility] CPT-4: 66514 09/16/2017 ([id number]) OFFICE/OUTPATIENT VISIT EST Diagnosis: Other specified postprocedural states[ICD10: Z98.890] Diagnosis: Cellulitis of neck[ICD10: L03.221] Diagnosis: Tachycardia, unspecified[ICD10: R00.0] Jessica GEE [facility] CPT-4: 37214 05/25/2017 ([id number]) OFFICE/OUTPATIENT VISIT EST Diagnosis: Lumbago with sciatica, right side[ICD10: M54.41] Diagnosis: Pain in unspecified joint[ICD10: M25.50] Jessica GEE [facility] CPT-4: 16256 01/03/2017 ([id number]) OFFICE/OUTPATIENT VISIT EST Diagnosis: Bitten or stung by nonvenomous insect and other nonvenomous arthropods, subsequent encounter[ICD10: W57.XXXD] Diagnosis: Essential (primary) hypertension[ICD10: I10] Diagnosis: Low back pain[ICD10: M54.5] Jessica CARBAJAL [facility] CPT-4: 13585 09/23/2016 OFFICE/OUTPATIENT VISIT EST Diagnosis: Bitten or stung by nonvenomous insect and other nonvenomous arthropods, initial encounter[ICD10: W57.XXXA] Diagnosis: Essential (primary) hypertension[ICD10: I10] Kaitlynn Mosley JESSICA [facility]EE [facility] CPT-4: 02366 09/03/2016 ([id number]) OFFICE/OUTPATIENT VISIT EST Diagnosis: Low back pain[ICD10: M54.5] Diagnosis: Radiculopathy, lumbosacral region[ICD10: M54.17] Jessica [facility]EE [facility] CPT-4: 84217 07/08/2016 ([id number]) OFFICE/OUTPATIENT VISIT EST Diagnosis: Acute pharyngitis, unspecified[ICD10: J02.9] Jessica [facility]EE [facility] CPT-4: 69973 06/21/2016 ([id number]) OFFICE/OUTPATIENT VISIT EST Diagnosis: Cough[ICD10: R05] Diagnosis: Fever, unspecified[ICD10: R50.9] Janiya [facility] CPT-4: 35126 02/23/2016 ([id number]) OFFICE/OUTPATIENT VISIT EST Diagnosis: Acute sinusitis, unspecified[ICD10: J01.90] Jessica Marlen [facility] CPT-4: 39979 02/16/2016 OFFICE/OUTPATIENT VISIT EST Diagnosis: Type 2 diabetes mellitus without complications[ICD10: E11.9] Diagnosis: Gastro-esophageal reflux disease without esophagitis[ICD10: K21.9] Diagnosis: Ventral hernia without obstruction or gangrene[ICD10: K43.9] Suki [facility] CPT-4: 31131 02/11/2015 OFFICE/OUTPATIENT VISIT EST 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] Diagnosis: Essential (primary) hypertension[ICD10: I10] Suki [facility] CPT-4: 63360 01/28/2015 OFFICE/OUTPATIENT VISIT EST Diagnosis: SINUSITIS, ACUTE[ICD9: 461.9] Kaitlynn MENDENHALLQUELINE Monica [facility] CPT-4: 23025 12/06/2014 ([id number]) OFFICE/OUTPATIENT VISIT EST Diagnosis: SINUSITIS, ACUTE[ICD9: 461.9] Kaitlynn MENDENHALLQUELINE Monica [facility] CPT-4: 80119 08/09/2014 ([id number]) OFFICE/OUTPATIENT VISIT EST Diagnosis: TONSILLITIS, ACUTE[ICD9: 463] Suki GEE DO [facility] CPT-4: 31337 06/24/2014 OFFICE/OUTPATIENT VISIT EST Diagnosis: SINUSITIS, ACUTE[ICD9: 461.9] Diagnosis: EUSTACHIAN TUBE DYSFUNCTION[ICD9: 381.81] Diagnosis: COUGH[ICD9: 786.2] Suki Jun [facility] CPT-4: 42439 03/22/2014 OFFICE/OUTPATIENT VISIT EST Diagnosis: Elbow pain, right[ICD9: 719.42] Suki GEE DO [facility] CPT-4: 30630 03/05/2014 OFFICE/OUTPATIENT VISIT EST Diagnosis: SINUSITIS, ACUTE[ICD9: 461.9] Jessica GEE DO [facility] CPT-4: 66164 01/16/2014 ([id number]) OFFICE/OUTPATIENT VISIT EST Diagnosis: GROSS HEMATURIA[ICD9: 599.71] Jessica GEE DO [facility] CPT-4: 51896 10/19/2013 ([id number]) OFFICE/OUTPATIENT VISIT EST Diagnosis: DM W/O COMPLICATION TYPE II[ICD9: 250.00] Diagnosis: HYPERLIPIDEMIA NEC/NOS[ICD9: 272.4] Jessica GEE DO [facility] CPT-4: 76984 05/10/2013 ([id number]) OFFICE/OUTPATIENT VISIT EST Diagnosis: SINUSITIS, ACUTE[ICD9: 461.9] Jessica GEE DO [facility] CPT-4: 53007 04/17/2013 OFFICE/OUTPATIENT VISIT EST Diagnosis: OTITIS MEDIA NOS[ICD9: 382.9] Diagnosis: COUGH[ICD9: 786.2] Suki GEE DO [facility] CPT-4: 33048 03/05/2013 OFFICE/OUTPATIENT VISIT EST Diagnosis: COUGH[ICD9: 786.2] Diagnosis: BRONCHITIS, ACUTE[ICD9: 466.0] Suki GEE DO [facility] CPT-4: 77242 03/02/2013 OFFICE/OUTPATIENT VISIT EST Diagnosis: COUGH[ICD9: 786.2] Diagnosis: OTITIS MEDIA NOS[ICD9: 382.9] Diagnosis: BRONCHITIS, ACUTE[ICD9: 466.0] Suki GEE DO [facility] CPT-4: 43008 03/01/2013 OFFICE/OUTPATIENT VISIT EST Diagnosis: DM W/O COMPLICATION TYPE II, UNCONTROLLED[ICD9: 250.02] Jessica GEE DO [facility] CPT-4: 68815 02/22/2013 ([id number]) PREV VISIT EST AGE 40-64 Diagnosis: DM W/O COMPLICATION TYPE II, UNCONTROLLED[ICD9: 250.02] Diagnosis: HYPERTENSION[ICD9: 401.9] Diagnosis: ROUTINE MEDICAL EXAM[ICD9: V70.0] Jessica Michaelcorby Lucas DomingaLloyd [facility] CPT-4: 42861 01/11/2013 OFFICE/OUTPATIENT VISIT EST Diagnosis: HZ (HERPES ZOSTER)[ICD9: 053.9] Kaitlynn Dimitri MENDENHALLQUELINE [facility]: 77985 11/03/2012 OFFICE/OUTPATIENT VISIT EST Diagnosis: URINARY TRACT INFECTION[ICD9: 599.0] Diagnosis: GERD[ICD9: 530.81] Diagnosis: PHARYNGITIS, ACUTE[ICD9: 462] Jesisca Marlen SMITHLINE [facility]ing[facility]oyd [facility] CPT-[facility]: 26308 05/04/2012 OFFICE/OUTPATIENT VISIT EST Diagnosis: COUGH[ICD9: 786.2] Diagnosis: SINUSITIS, ACUTE[ICD9: 461.9] Diagnosis: PHARYNGITIS, ACUTE[ICD9: 462] Jessica Marlen SMITHLINE [facility]Lloyd [facility] CPT-[facility]: 41252 10/11/2011 OFFICE/OUTPATIENT VISIT EST Diagnosis: COUGH[ICD9: 786.2] Diagnosis: SINUSITIS, ACUTE[ICD9: 461.9] Diagnosis: PHARYNGITIS, ACUTE[ICD9: 462] Diagnosis: ALLERGIC RHINITIS[ICD9: 477.9] Xiomara VO Dominga Lloyd [facility] CPT-4: 34347 06/23/2011 OFFICE/OUTPATIENT VISIT EST Diagnosis: COUGH[ICD9: 786.2] Diagnosis: SINUSITIS, ACUTE[ICD9: 461.9] Diagnosis: PHARYNGITIS, ACUTE[ICD9: 462] Jessica Mccormickderek JESSICA [facility] CPT-[facility]: 98820 06/14/2011 OFFICE/OUTPATIENT VISIT EST Diagnosis: SINUSITIS, ACUTE[ICD9: 461.9] Diagnosis: PHARYNGITIS, ACUTE[ICD9: 462] Jessica MENDENHALLQUELINE [facility]oyd [facility] CPT-[facility]: 09439 12/02/2010 OFFICE/OUTPATIENT VISIT EST Diagnosis: HYPERTENSION[ICD9: 401.9] Diagnosis: HYPERLIPIDEMIA NEC/NOS[ICD9: 272.4] Diagnosis: DERMATITIS NOS[ICD9: 692.9] Jessica Michaelaaronderek [facility] CPT-4: 19456 11/12/2010 OFFICE/OUTPATIENT VISIT EST Jessica [facility]LINE [facility] CPT- 4: 29200 10/13/2010 ([id number]) OFFICE/OUTPATIENT VISIT EST Jessica HARKINS [facility] CPT-4: 11330 06/24/2010 ([id number]) OFFICE/OUTPATIENT VISIT EST Jessica Oreaaronderek HARKINS UELINE [facility] CPT-4: 34224 06/08/2010 ([id number]) OFFICE/OUTPATIENT VISIT EST Xiomara Rodriguez JESSICA S . [facility] CPT-4: 87148 05/20/2010 ([id number]) OFFICE/OUTPATIENT VISIT EST Jessica Michaelaaronderek TORIN UELINE [facility] CPT-4: 30080 04/30/2010 ([id number]) OFFICE/OUTPATIENT VISIT, EST Jessica MOFFETTABNER S. [facility]END[facility] DO [facility] CPT-4: 25727 01/22/2010 Plan of Care Planned Activity Notes [...] E11.9 04/03/2019 Appointment: Jessica Gee WPtel: [phone] [facility] [place] FOLLOW UP 04/03/2019 Visit Diagnosis Plan: Gastro-esophageal [...] : N39.0 09/27/2018 Appointment: Jessica Gee WPtel: [facility] [address] ACUTE ILLNESS 09/27/2018 Visit Diagnosis Plan: [...] : I10 04/24/2018 Appointment: Jessica Gee WPtel: [facility] [id number] ACUTE ILLNESS 04/24/2018 Patient Education: celecoxib- [employer] [id number] Completed 04/24/2018 Patient Education: amitriptyline- [employer] [id number] Completed 04/24/2018 Visit Diagnosis Plan: Essential (primary) [...] E11.9 12/27/2017 Appointment: Jessica Gee WPtel: [address] [facility] [place] FOLLOW [place] 12/27/2017 Patient Education: Patient Medication Summary Completed 12/27/2017 Patient Education: Patient Medication Summary Completed 12/19/2017 Care Plan: MAMMOGRAM BOTH BREASTS LOINC : 42104-1 Pending 12/19/2017 Patient Education: Patient Medication Summary Completed 12/16/2017 Care Plan: ASSAY THYROID STIM HORMONE Pen ding 12/16/2017 Care Plan: ASSAY OF FREE THYROXINE Pendin 12/16/2017 Care Plan: LIPID PANEL LOINC : 31349-5 Pending 12/16/2017 Care Plan: CBC Pending 12/16/2017 Care Plan: A1C HPLC LOINC : 12909-2 Pending 12/16/2017 Patient Education: Patient Medication Summary Completed 10/17/2017 Care Plan: CT ANGIOGRAPHY CHEST LOINC : 83940-5 Pending 10/17/2017 Patient Education: Patient Medication Summary Completed 10/14/2017 Care Plan: CT ANGIOGRAPHY CHEST LOINC : 87489-7 Pending 10/14/2017 Appointment: Jessica Gee WPtel: [phone] [facility] [place] [facility] 10/13/2017 Patient Education: Patient Medication Summary Completed 10/13/2017 Visit Diagnosis Plan: Pleurodynia Discussion: patient sent for stat cxray. medrol dose pack prescribed for symptom management. instructed to perform deep breathing exercises at home to prevent atelectasis or pneumonia. will notify pa tient of results of xray and order additional tests/medications as needed. ICD-9 : 786.50 ICD-10 : R07.81 10/12/2017 Appointment: Sof[address] [id number] ACUTE ILLNESS 10/12/2017 Patient Education: Patient Medication [...] : J20.9 09/16/2017 Appointment: Sofi Gresham [address] [facility] ACUTE ILLNESS 09/16/2017 Patient Education: Patient Medication Summary Completed 09/16/2017 Appointment: Jessica Gee WPtel: [address] [place] [address] CANCELED 08/10/2017 Visit Diagnosis Plan: Tachycardia, unspecified [...] : Z98.890 05/25/2017 Appointment: Jessica Gee WPtel: [address] [place], [place] [phone] [place] FOLLOW UP 05/25/2017 Patient Education: Patient Medication Summary Completed 05/25/2017 Visit Diagnosis Plan: Lumbago with sciatica, right britton e Discussion: Check arthritis panel Patient awaiting neck surgery before surgery will consider back surgery ICD-9 : 724.2 ICD-10 : M54.41 01/03/2017 Appointment: Jessica Gee WPtel: [address] [place], [place] [address] ACUTE ILLNESS 01/03/2017 Patient Education: Patient Medication Summary Completed 01/03/2017 Patient Education: Patient Medication Summary Completed 12/16/2016 Care Plan: MAMMOGRAM SCREENING LOINC : 2 6347-5 Pending 12/16/2016 Patient Education: Patient Medication Summary Completed 10/07/2016 Care Plan: MRI LUMBAR SPINE W/O & W/DYE LOINC : 18290-3 Pending 10/07/2016 Visit Diagnosis Plan: Bitten or [...] : I10 09/23/2016 Appointment: Jessica Gee WPtel: [address] [place] [address] 09/22 confirmed WORK IN 09/23/2016 Patient Education: Patient Medication Summary Completed 09/23/2016 Visit Plan: Tick panel at [facility] Increa se spironolactone to 2 po am (New Rx sent) Take B/P at home/work and also come to office next week for recheck Will await lab results before starting any antibiotic 09/03/2016 Appointment: Kaitlynn Moslye WPtel: [address] [place], [place] [id number] ACUTE ILLNESS 09/03/2016 Patient Education: Patient Medication Summary Completed 09/03/2016 Visit Diagnosis Plan: Low back pain Discussion: Celebr ex BID PT Continue stretches at home L/S xray Follow Up: 1 months ICD-9 : 724.2 ICD-10 : M54.5 07/08/2016 Appointment: Jessica Gee WPtel: [address] [place] [address] ACUTE ILLNESS 07/08/2016 Patient Education: Patient Medication Summary Completed 07/08/2016 Care Plan: X-RAY EXAM L-S SPINE 2/3 VWS LOINC : 42236-1 Pending 07/08/2016 Visit Plan: Supportive care. Rest, Fluid s, Tylenol/Motrin prn fever or bodyaches. Notify if worsening symptoms.New toothebrush in 5 days 06/21/2016 Visit Diagnosis Plan: Acute pharyngitis, unspecified D iscussion: Strep Negative Supportive Care May use zyrtec 10mg q HS ICD-9 : 462 ICD-10 : J02.9 06/21/2016 Visit NOS Plan: Plan Notes: Supportive care. Rest, Fluids... 06/21/2016 Appointment: Jessica Gee WPtel: [address] [place] [address] ACUTE ILLNESS 06/21/2016 Patient Education: Patient Medication Summary Completed 06/21/2016 Visit Plan: No pulseox last week to comp are to today, but she does sound diminished today Studies as above ordered Continue cefdinir until results received Increase albuterol treatments to q4-6hrs PRN Continue supportive care 02/23/2016 Appointment: Janiya Gregorio [address] [place] [address] ACUTE ILLNESS 02/23/2016 Patient Education: Patient Medication Summary Completed 02/23/2016 Care Plan: CHEST X-RAY 2VW FRONTAL&LATL LOINC : 92914-1 Pending 02/23/2016 Visit Plan: Saline nasal flushes prn. Ty lenol/Motrin prn headache. Notify if persists/symptoms worsening. 02/16/2016 Appointment: Jessica Gee WPtel: [address] [place] [address] ACUTE ILLNESS 02/16/2016 Patient Education: Patient Medication Summary Completed 02/16/2016 Visit Plan: Discussed labs Continue Topr ol at 200 mg PO daily Increase Aciphex to BID Notify if increase of Aciphex does not give relief. Repeat PT/INR in 2 weeks. 02/11/2015 Appointment: Suki Barahona WPtel: [address] [place] [address] 02/10 confirmed ~sl FOLLOW UP 02/11/2015 Patient Education: Patient Medication Summary Completed 02/11/2015 Patient Education: Patient Medication Summary Completed 02/06/2015 Care Plan: POC PROTIME/INR LOINC : 05667 -6 Pending 02/06/2015 Visit Plan: Increase Toprol XL 200 mg to one full tablet daily (is currently taking only 1/2 tablet) To for EKG today Monitor daily BP Notify of any changes- increased numbness, weakness, headache etc. 01/28/2015 Appointment: Suki Barahona WPtel: [address] [place] [address] ACUTE ILLNESS 01/28/2015 Patient Education: Patient Medication Summary Completed 01/28/2015 Visit Plan: ERx Amoxicillin and Flonase Nasal saline, humidified air Facial heat or cold packs for comfort Increase fluids/rest Discussed s/s of worsening, go to over weekend if these occur. 12/06/2014 Appointment: Kaitlynn Mosley WPtel: [address] [place] [address] ACUTE ILLNESS 12/06/2014 Patient Education: Patient Medication Summary Completed 12/06/2014 Appointment: Kaitlynn Mosley WPtel: [address] [place] [address] ACUTE ILLNESS 08/09/2014 Patient Education: Patient Medication Summary Completed 08/09/2014 Appointment: Suki Barahona WPtel: [address] [place] [address] ACUTE ILLNESS 06/24/2014 Patient Education: Patient Medication Summary Completed 06/24/2014 Appointment: Suki Barahona WPtel: [address] [place] [address] ACUTE ILLNESS 03/22/2014 Patient Education: Patient Medication Summary Completed 03/22/2014 Patient Education: [employer] - Antibi otics, Analgesics 18+, Oral Contraceptives F 18+ Completed 03/22/2014 Appointment: Suki Barahona WPtel: [address] [place] [address] [place] FOLLOW UP 03/05/2014 Patient Education: Patient Medication Summary Completed 03/05/2014 Visit Plan: Saline nasal flushes prn. Ty lenol/Motrin prn headache. Notify if persists/symptoms worsening. Restart flonase 01/16/2014 Appointment: Jessica Gee WPtel: [address] [place] [address] ACUTE ILLNESS 01/16/2014 Patient Education: Patient Medication Summary Completed 01/16/2014 Appointment: Jessica Gee WPtel: [address] [place] [address] 10/19/2013 Patient Education: Patient Medication Summary Completed 10/19/2013 Appointment: Jessica Gee WPtel: [address] [place] [address] 08/08 patient canceled appt and said will call back to angela evelin FOLLOW UP 08/09/2013 Visit Plan: Increase Coumadin to 6mg M-F and stay on 5mg Sat, Sun Add lipids to labs Check PT/INR in 3wks Continue metfromin at current dose and accuchecks 05/10/2013 Appointment: Jessica Gee WPtel: [address] [place] [address] 05/09 FOLLOW UP 05/10/2013 Patient Education: Patient Medication Summary Completed 05/10/2013 Visit Plan: Saline nasal flushes prn. Ty lenol/Motrin prn headache. Notify if persists/symptoms worsening. 04/17/2013 Appointment: Jessica Gee WPtel: [address] [place] [address] ACUTE ILLNESS 04/17/2013 Patient Education: Patient Medication Summary Completed 04/17/2013 Appointment: Suki Barahona WPtel: [address] [place] [address] FOLLOW UP 03/05/2013 Patient Education: Patient Medication Summary Completed 03/05/2013 Appointment: Jun Suki Edison WPtel: [address] [place] [address] FOLLOW UP 03/02/2013 Patient Education: Patient Medication Summary Completed 03/02/2013 Appointment: JunSuki Edison WPtel: [address] [place] [address] ACUTE ILLNESS 03/01/2013 Patient Education: Patient Medication Summary Completed 03/01/2013 Visit Plan: Continue metformin and accuc hecks Add fish oil 1gram daily Check HbA1C, CMP in 2mos then fwup 02/22/2013 Appointment: Jessica Gee WPtel: [address] [place] [address] 02/21 [facility] FOLLOW UP 02/22/2013 Patient Education: Patient Medication Summary Completed 02/22/2013 Visit Plan: Start Metformin Start Accuch ecks daily alternating times Will go for dilated eye exam once BS more stabilized Diabetic foot care discussed Diabetic diet info given 01/11/2013 Appointment: Jessica Gee WPtel: [address] [place] [address] FOLLOW UP 01/11/2013 Patient Education: Patient Medication Summary Completed 01/11/2013 Appointment: Kaitlynn Mosley WPtel: [address] [place] [address] ACUTE ILLNESS 11/03/2012 Patient Education: Patient Medication Summary Completed 11/03/2012 Appointment: Xiomara Rodriguez WPtel: [address] [place] [address] ACUTE ILLNESS 05/04/2012 Patient Education: Patient Medication Summary Completed 05/04/2012 Visit Plan: pt reports that she always g ets yeast infections. Discussed that the antifungal can cause problems/increased bleeding with Coumdin. Pt. will start with probiotics and only take the Diflucan if needed. Cefdinir. 10/11/2011 Appointment: Xiomara Rodriguez WPtel: [address] [place] [address] ACUTE ILLNESS 10/11/2011 Patient Education: Patient Medication Summary Completed 10/11/2011 Appointment: Xiomara Rodriguez WPtel: [address] [place] [address] FOLLOW UP 06/23/2011 Patient Education: Patient Medication Summary Completed 06/23/2011 Visit Plan: Will prescribe an antibiotic and diflucan. Pt. reports that she frequently gets yeast infection. Discussed that she will notify if any symptoms persist. Pt. reports that her relatives have recently been hospitalized with pneumonia. 06/14/2011 Appointment: Xiomara Rodriguez WPtel: [address] [place] [address] ACUTE ILLNESS 06/14/2011 Patient Education: Patient Medication Summary Completed 06/14/2011 Visit Plan: sample of veramyst. Cefuroxi me axetil. Pt. will focus on hydration and rest. Discussed comfort measures and monitoring for worsening symptoms. 12/02/2010 Appointment: Xiomara Rodriguez WPtel: [address] [place] [address] ACUTE ILLNESS 12/02/2010 Patient Education: Patient Medication Summary Completed 12/02/2010 Visit Plan: Change HCTZ to spironolacton e will start zocor in 1 mo BP med in 1mo 11/12/2010 Appointment: Jessica Gee WPtel: [address] [place] [address] FOLLOW UP 11/12/2010 Patient Education: Patient Medication Summary Completed 11/12/2010 Appointment: Jessica Gee WPtel: [address] [place], [place] [address] BP CHECK 10/26/2010 Patient Education: Patient Medication Summary Completed 10/26/2010 Visit Plan: Continue Toprol at bedtime A dd HCTZ in AM BP check in 2wks Fasting lab with next PT/INR 10/13/2010 Appointment: Jessica Gee WPtel: [address] [place], [place] [address] FOLLOW UP 10/13/2010 Patient Education: Patient Medication Summary Completed 10/13/2010 Visit Plan: Cont abx. Fwup with surgery as scheduled 06/24/2010 Appointment: Jessica Gee WPtel: [address] [place] [address] Follow Up 06/24/2010 Patient Education: Patient Medication Summary Completed 06/24/2010 Appointment: Jessica Gee WPtel: [address] [place] [address] Follow Up 06/22/2010 Visit Plan: pt is [...] to subside. 06/08/2010 Appointment: Xiomara Rodriguez WPtel: [address] [place] [address] ACUTE ILLNESS 06/08/2010 Patient Education: Patient Medication Summary Completed 06/08/2010 Appointment: Xiomara Rodriguez WPtel: [address] [place] [address] FOLLOW UP 06/01/2010 Appointment: Jessica Gee WPtel: [address] [place] [address] 05/29/2010 Patient Education: Patient Medication Summary Completed 05/29/2010 Appointment: Xiomara Rodriguez WPtel: [address] [place] [address] ACUTE ILLNESS 05/20/2010 Patient Education: Patient Medication Summary Completed 05/20/2010 Appointment: Jessica Gee WPtel: [address] [place] [address] BP CHECK 05/13/2010 Patient Education: Patient Medication Summary Completed 05/13/2010 Visit Plan: Increase Lisinopril hct to 2 0/12.5mg q AM Use atarax prn and routinely at bedtime and Medrol dose pack BP check in 3wks Pt defers stress test at this time 04/30/2010 Appointment: Jessica Gee WPtel: [address] [place], [place] [id number] ACUTE ILLNESS 04/30/2010 Patient Education: Patient Medication Summary Completed 04/30/2010 Appointment: Jessica Gee WPtel: [address] [place] [address] BP CHECK 02/27/2010 Patient Education: Patient Medication Summary Completed 02/27/2010 Visit Plan: Cont Toprol Add Altace 10mg QD Cont Wellbutrin Will likely add SSRI after BP stable BP check in 2wks 01/22/2010 Appointment: Jessica Gee WPtel: [address] [place], [place] [phone] ACUTE ILLNESS 01/22/2010 Patient Education: Patient Medication Summary Completed 01/22/2010 Referral: Rupa Raines WPtel: [address] [id number] [place] Referral Completed Referral: Neymar Alberts WPtel: [address] [facility] [place] Referral Initiated Instructions Comment . Tick panel at [facility] Increase spironolactone to 2 po [...]
--- OUTSIDE RECORDS SUMMARY | 2019-09-10 03:07 | XMS REPORT | CCD ---
Author Author Nava Gee D.O. Organization [facility] Address [address] [place] [address] Phone Care Team Providers Care Crocheter Hand Name Role Phone Jessica Gee D.O., PP Unavailable CCM Unavailable Summary Purpose Interface Exchange Insurance Providers Payer name Policy type / Coverage type Covered constitution party ID Effective Begin Date Effective End Date Blue Cross Blue Shield Blue Cross/Blue Shield [id number] Unknown Family History Family History data not found Social History Social History Element Codes Description Effective Dates Tobacco history SNOMED CT: 123726721 Never smoker 10/13/2010 Allergies, Adverse Reactions, Alerts [...] findings ICD-9: V70.0 ICD-10: Z00.00 12/16/2017 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 ICD-9: V58.6 [...] Fill Instructions warfarin 6 mg tablet RxNorm: 222985 1 Tablet(s) Oral QD then on Tue/ take along with Warfarin 1mg (7mg) 05/09/2019 No Stop Date Active Jardiance 25 mg tablet RxNorm: 6371472 1 Tablet(s) Oral QD 05/09/19 20 05/23/2019 Active Jardiance 25 mg tablet RxNorm: 6089983 1 Tablet(s) Oral QAM 020 09/06/2019 Active Jardiance 10 mg tablet RxNorm: 0940474 1 Tablet(s) Oral QD 05/09/19 No Stop Date Active warfarin 1 mg tablet RxNorm: 937118 1 Tablet(s) Oral on Tue and with 6mg tablet (total 7mg) 05/09/2019 No Stop Date Active warfarin 5 mg tablet RxNorm: 129622 1 Tablet(s) Oral QD 05/02/2019 Active warfarin 1 mg tablet RxNorm: 016821 TAKE 1 TABLET BY [facility] ONCE DAILY. TAKE AN ADDITIONAL TABLET ON TUESDAY AND Tuesday05/02/2019 05/08/2019 Inactiv e Coumadin 5 mg tablet RxNorm: 233349 TAKE 1 TABLET BY MOUTH ONCE DAILY 04/02/2019 05/02/2019 Inactive celecoxib 200 mg capsule RxNorm: 474509 TAKE 1 CAPSULE BY MOUTH TWICE DAILY 03/20/2019 06/17/2019 Active metformin ER 500 mg tablet,extended release 24 hr RxNorm: 86 0975 TAKE 1 TABLET BY MOUTH TWICE DAILY 03/19/2019 05/17/2019 Active pravastatin 40 mg tablet RxNorm: 457565 TAKE 1 TABLET BY MOUTH ONCE DAILY 03/19/2019 06/16/2019 Active Coumadin 5 mg tablet RxNorm: 756242 TAKE 1 TABLET BY MOUTH ONCE DAILY 02/28/2019 04/01/2019 Inactive warfarin 1 mg tablet RxNorm: 562810 TAKE 1 TABLET BY [facility] ONCE DAILY. TAKE AN ADDITIONAL TABLET ON TUESDAY AND Tuesday02/28/2019 05/01/2019 Inactiv e omeprazole 40 mg capsule,delayed release RxNorm: 123191 TAKE 1 CAPSULE BY MOUTH TWICE DAILY 02/19/2019 No Stop Date Active metformin ER 500 mg tablet,extended release 24 hr RxNorm: 86 0975 1 Tablet(s) PO BID 02/19/2019 03/18/2019 Inactive metformin ER 500 mg tablet,extended release 24 hr RxNorm: 86 0975 1 Tablet(s) PO BID 01/15/2019 02/13/2019 Inactive alprazolam 0.25 mg tablet RxNorm: 532914 1 Tablet(s) Oral prior to flight 01/03/2019 No Stop Date Active omeprazole 40 mg capsule,delayed release RxNorm: 972759 TAKE 1 CAPSULE BY MOUTH TWICE DAILY 12/20/2018 02/18/2019 Inactive metformin ER 500 mg tablet,extended release 24 hr RxNorm: 86 0975 1 Tablet(s) PO BID 12/11/2018 01/09/2019 Inactive pravastatin 40 mg tablet RxNorm: 670452 TAKE 1 TABLET BY MOUTH ONCE DAILY 12/11/2018 03/18/2019 Inactive Coumadin 5 mg tablet RxNorm: 146353 1 Tablet(s) PO QD 11/27/201809/2018 Inactive metformin ER 500 mg tablet,extended release 24 hr RxNorm: 86 0975 1 Tablet(s) PO BID 10/02/2018 11/30/2018 Inactive warfarin 1 mg tablet RxNorm: 405126 TAKE 1 TABLET BY [facility] ONCE DAILY. TAKE AN ADDITIONAL TABLET ON TUESDAY AND Tuesday10/02/2018 02/27/2019 Inactiv e Bactrim DS 800 mg-160 mg tablet RxNorm: 272604 1 Tablet(s) PO BID 0 09/27/2018 10/03/2018 Inactive warfarin 5 mg tablet RxNorm: 042690 1 Tablet(s) PO QD 09/27/201810/2018 Inactive Toprol XL 200 mg tablet,extended release RxNorm: 193986 1 Table t(s) PO QD 09/18/2018 03/16/2019 Inactive omeprazole 40 mg capsule,delayed release RxNorm: 017844 TAKE 1 CAPSULE BY MOUTH TWICE DAILY 09/11/2018 12/19/2018 Inactive Coumadin 5 mg tablet RxNorm: 029375 1 Tablet(s) PO QD 08/21/201811/2018 Inactive metformin ER 500 mg tablet,extended release 24 hr RxNorm: 86 0975 1 Tablet(s) PO BID 07/31/2018 09/28/2018 Inactive omeprazole 40 mg capsule,delayed release RxNorm: 716667 TAKE 1 CAPSULE BY MOUTH TWICE DAILY 06/27/2018 09/10/2018 Inactive metformin ER 500 mg tablet,extended release 24 hr RxNorm: 86 0975 Tablet(s) 1 Tablet(s) PO BID 06/27/2018 07/31/2018 Inactive Toprol XL 200 mg tablet,extended release RxNorm: 275797 1 Table t(s) PO QD 06/14/2018 09/17/2018 Inactive Coumadin 5 mg tablet RxNorm: 824537 1 Tablet(s) PO QD 06/14/201804/2018 Inactive metformin ER 500 mg tablet,extended release 24 hr RxNorm: 86 0975 Tablet(s) 1 Tablet(s) PO BID 05/22/2018 06/26/2018 Inactive Coumadin 5 mg tablet RxNorm: 597714 TAKE 1 TABLET BY MOUTH ONCE DAILY 05/11/2018 06/14/2018 Inactive Lovenox 40 mg/0.4 mL subcutaneous syringe RxNorm: 751397 40 Mil ligram(s) SQ QD 05/05/2018 09/26/2018 Inactive amitriptyline 25 mg tablet RxNorm: 435618 1 Tablet(s) PO QHS fo r sleep/HAs 04/24/2018 10/20/2018 Inactive Plasticity LabsTouch Ultra Test strips RxNorm: Test blood sugar sigrid y (Dx:E11.65) 04/24/2018 No Stop Date Active celecoxib 200 mg capsule RxNorm: 225081 1 Capsule(s) PO BID 019 10/20/2018 Inactive Celebrex 200 mg capsule RxNorm: 809993 TAKE 1 CAPSULE BY MOUTH ONCE DAILY 04/19/2018 04/23/2018 Inactive warfarin 1 mg tablet RxNorm: 941343 1 Tablet(s) PO QD a nd additional tablet on Mon & Thurs 04/14/2018 10/01/2018 Inactive Toprol XL 200 mg tablet,extended release RxNorm: 252358 TAKE 1 TABLET BY MOUTH ONCE DAILY 04/11/2018 06/14/2018 Inactive metformin ER 500 mg tablet,extended release 24 hr RxNorm: 86 0975 Tablet(s) 1 Tablet(s) PO BID 03/17/2018 05/21/2018 Inactive Coumadin 5 mg tablet RxNorm: 700027 TAKE 1 TABLET BY MOUTH ONCE DAILY 03/15/2018 05/10/2018 Inactive Lovenox 40 mg/0.4 mL subcutaneous syringe RxNorm: 202079 40 Mil ligram(s) SQ QD 01/27/2018 04/11/2018 Inactive omeprazole 40 mg capsule,delayed release RxNorm: 298413 TAKE 1 CAPSULE BY MOUTH TWICE DAILY 01/23/2018 06/26/2018 Inactive pravastatin 40 mg tablet RxNorm: 282393 TAKE 1 TABLET BY MOUTH ONCE DAILY 01/23/2018 12/10/2018 Inactive metformin ER 500 mg tablet,extended release 24 hr RxNorm: 86 0975 Tablet(s) 1 Tablet(s) PO BID 01/16/2018 01/15/2018 Inactive Toprol XL 200 mg tablet,extended release RxNorm: 330437 TAKE 1 TABLET BY MOUTH ONCE DAILY 01/16/2018 04/10/2018 Inactive Coumadin 5 mg tablet RxNorm: 922137 TAKE 1 TABLET BY MOUTH ONCE DAILY 01/06/2018 03/14/2018 Inactive Celebrex 200 mg capsule RxNorm: 710471 1 Capsule(s) PO BID 12/28/19 18 03/26/2018 Inactive metformin ER 500 mg tablet,extended release 24 hr RxNorm: 86 0975 1 Tablet(s) PO BID Needs APPT 12/21/2017 01/16/2018 Inactive omeprazole 40 mg capsule,delayed release RxNorm: 303639 TAKE 1 CAPSULE BY MOUTH TWICE DAILY 11/02/2017 01/22/2018 Inactive Celebrex 200 mg capsule RxNorm: 564693 1 Capsule(s) PO QD 11/01/2017 12/26/2017 Inactive Coumadin 5 mg tablet RxNorm: 026222 Tablet(s) TAKE ONE TABLET BY MOUTH ONCE DAILY. 10/31/2017 12/29/2017 Inactive warfarin 1 mg tablet RxNorm: 019004 1 Tablet(s) PO QD 10/31/201703/22 Inactive spironolactone 25 mg tablet RxNorm: 589550 TAKE TWO TAB LETS BY MOUTH IN THE MORNING 10/31/2017 04/23/2018 Inactive metformin ER 500 mg tablet,extended release 24 hr RxNorm: 86 0975 1 Tablet(s) PO BID Needs updated fasting lab 10/20/2017 12/21/2017 Inactive Medrol (Dale) 4 mg tablets in a dose pack RxNorm: 740123 Tablet(s) PO take as directed 10/12/2017 12/15/2017 Inactive Celebrex 200 mg capsule RxNorm: 582158 1 Capsule(s) PO QD 10/03/2017 10/02/2017 Inactive spironolactone 25 mg tablet RxNorm: 806805 TAKE TWO TAB LETS BY MOUTH IN THE MORNING 09/19/2017 10/30/2017 Inactive Zithromax Z-Dale 250 mg tablet RxNorm: 990050 Tablet(s) PO take as directed 09/16/2017 10/11/2017 Inactive Medrol (Dale) 4 mg tablets in a dose pack RxNorm: 932143 Tablet(s) take as directed PO 09/16/2017 10/11/2017 Inactive doxycycline hyclate 100 mg tablet RxNorm: 6105139 1 Tablet(s) PO BI D 09/16/2017 09/15/2017 Inactive doxycycline hyclate 100 mg tablet RxNorm: 7051576 1 Tablet(s) PO BI D 09/16/2017 09/25/2017 Inactive Tessalon Perles 100 mg capsule RxNorm: 539763 1 Capsule(s) PO T ID as needed 09/16/2017 12/15/2017 Inactive warfarin 1 mg tablet RxNorm: 363845 1 Tablet(s) PO QD 09/06/201710/19 Inactive Coumadin 5 mg tablet RxNorm: 380614 Tablet(s) TAKE ONE TABLET BY MOUTH ONCE DAILY. 09/06/2017 10/31/2017 Inactive Toprol XL 200 mg tablet,extended release RxNorm: 159267 1 Table t(s) PO QD 2017 01/02/2018 Inactive warfarin 1 mg tablet RxNorm: 070528 1 Tablet(s) PO QD DUE FOR L ABS AUGUST 12 08/29/2017 09/06/2017 Inactive Coumadin 5 mg tablet RxNorm: 738160 Tablet(s) TAKE ONE TABLET BY MOUTH ONCE DAILY. DUE FOR PT/INR AUGUST 12 08/29/2017 09/06/2017 Inactive Coumadin 5 mg tablet RxNorm: 065364 Tablet(s) TAKE ONE TABLET BY MOUTH ONCE DAILY. DUE FOR PT/INR AUGUST 12 08/01/2017 08/29/2017 Inactive warfarin 1 mg tablet RxNorm: 623354 1 Tablet(s) PO QD DUE FOR L ABS AUGUST 12 08/01/2017 08/29/2017 Inactive scopolamine 1 mg over 3 days transdermal patch RxNorm: 38593 2 1 TD take off in 72 hours. 08/01/2017 12/26/2017 Inactive pravastatin 40 mg tablet RxNorm: 732875 Tablet(s) TAKE ONE TABLET BY MOUTH ONCE DAILY 07/07/2017 01/02/2018 Inactive Coumadin 5 mg tablet RxNorm: 336422 Tablet(s) TAKE ONE TABLET BY MOUTH ONCE DAILY. DUE FOR PT/INR. 06/29/2017 08/01/2017 Inactive warfarin 1 mg tablet RxNorm: 887435 1 Tablet(s) PO QD 06/29/201707/19 Inactive Coumadin 5 mg tablet RxNorm: 509804 TAKE ONE TABLET BY MOUTH ONCE DAILY. DUE FOR PT/INR. 05/30/2017 06/29/2017 Inactive omeprazole 40 mg capsule,delayed release RxNorm: 177656 1 Capsu le(s) PO BID 05/30/2017 08/27/2017 Inactive Celebrex 200 mg capsule RxNorm: 112516 1 Capsule(s) PO QD 05/23/2017 10/03/2017 Inactive metformin ER 500 mg tablet,extended release 24 hr RxNorm: 86 0975 TAKE ONE TABLET BY MOUTH TWICE DAILY 05/20/2017 10/20/2017 Inactive Coumadin 5 mg tablet RxNorm: 274111 1 Tablet(s) PO QD due for PT/IN R 04/25/2017 05/24/2017 Inactive warfarin 1 mg tablet RxNorm: 061386 1 Tablet(s) PO QD due for l abs this week 03/16/2017 06/29/2017 Inactive omeprazole 40 mg capsule,delayed release RxNorm: 129541 1 Capsu le(s) PO BID 03/16/2017 05/30/2017 Inactive Celebrex 200 mg capsule RxNorm: 179571 1 Capsule(s) PO BID as n eeded for pain 03/16/2017 05/22/2017 Inactive Coumadin 5 mg tablet RxNorm: 368642 1 Tablet(s) PO QD due for PT/IN R 03/16/2017 04/14/2017 Inactive Celebrex 200 mg capsule RxNorm: 555221 1 Capsule(s) PO BID as n eeded for pain 02/09/2017 03/15/2017 Inactive Toprol XL 200 mg tablet,extended release RxNorm: 487687 1 Table t(s) PO QD 02/08/2017 2017 Inactive Celebrex 200 mg capsule RxNorm: 368417 1 Capsule(s) PO BID as n eeded for pain 01/14/2017 02/08/2017 Inactive omeprazole 40 mg capsule,delayed release RxNorm: 823759 1 Capsu le(s) PO BID 01/12/2017 03/16/2017 Inactive Coumadin 5 mg tablet RxNorm: 611402 1 Tablet(s) PO QD 12/15/201602/19 Inactive warfarin 1 mg tablet RxNorm: 270630 1 Tablet(s) PO QD 12/15/201602/19 Inactive metformin ER 500 mg tablet,extended release 24 hr RxNorm: 86 0975 Tablet(s) TAKE ONE TABLET BY MOUTH TWICE DAILY 11/29/2016 02/26/2017 Inactive omeprazole 40 mg capsule,delayed release RxNorm: 686963 1 Capsu le(s) PO BID 11/29/2016 12/28/2016 Inactive pravastatin 40 mg tablet RxNorm: 296048 Tablet(s) TAKE ONE TABLET BY MOUTH ONCE DAILY 11/19/2016 07/07/2017 Inactive omeprazole 40 mg capsule,delayed release RxNorm: 649007 1 Capsu le(s) PO BID 10/19/2016 10/18/2016 Inactive omeprazole 40 mg capsule,delayed release RxNorm: 743171 1 Capsu le(s) PO BID 10/19/2016 11/17/2016 Inactive pantoprazole 40 mg tablet,delayed release RxNorm: 623256 1 Tabl et(s) PO QD 09/30/2016 10/18/2016 Inactive pantoprazole 40 mg tablet,delayed release RxNorm: 113541 1 Tabl et(s) PO QD 09/30/2016 09/29/2016 Inactive Zofran ODT 4 mg disintegrating tablet RxNorm: 625162 1 Tablet(s) PO Q4H as needed for nausea 09/15/2016 01/02/2017 Inactive Coumadin 5 mg tablet RxNorm: 247861 1 Tablet(s) PO QD 09/14/201611/20 Inactive warfarin 1 mg tablet RxNorm: 462136 1 Tablet(s) PO QD 09/14/201611/20 Inactive spironolactone 25 mg tablet RxNorm: 224068 2 Tablet(s) PO QAM 09/0301/02/2017 Inactive Wellbutrin XL 300 mg 24 hr tablet, extended release RxNorm: 851407 TAKE ONE TABLET BY MOUTH ONCE DAILY 08/26/2016 12/26/2017 Inactive Toprol XL 200 mg tablet,extended release RxNorm: 070696 1 Table t(s) PO QD 07/28/2016 02/08/2017 Inactive metformin ER 500 mg tablet,extended release 24 hr RxNorm: 86 0975 Tablet(s) TAKE ONE TABLET BY MOUTH TWICE DAILY 07/15/2016 11/29/2016 Inactive cyclobenzaprine 5 mg tablet RxNorm: 793145 1 Tablet(s) PO QHS f or spasm 07/08/2016 08/06/2016 Inactive Celebrex 200 mg capsule RxNorm: 1 Capsule(s) PO BID 07/08/2016 Inactive spironolactone 25 mg tablet RxNorm: 851099 1 Tablet(s) PO QAM 07/0609/02/2016 Inactive Wellbutrin XL 300 mg 24 hr tablet, extended release RxNorm: 373996 TAKE ONE TABLET BY MOUTH ONCE DAILY 06/15/2016 07/14/2016 Inactive Coumadin 5 mg tablet RxNorm: 815083 1 Tablet(s) PO QD 06/08/201608/20 Inactive warfarin 1 mg tablet RxNorm: 083990 1 Tablet(s) PO QD 06/08/201608/20 Inactive Toprol XL 200 mg tablet,extended release RxNorm: 322167 TAKE ONE TABLET BY MOUTH ONCE DAILY 04/26/2016 07/28/2016 Inactive pravastatin 40 mg tablet RxNorm: 513571 TAKE ONE TABLET BY MOUT H ONCE DAILY 04/19/2016 10/15/2016 Inactive Coumadin 5 mg tablet RxNorm: 592441 1 Tablet(s) PO QD 03/09/201605/19 Inactive warfarin 1 mg tablet RxNorm: 965951 1 Tablet(s) PO QD 03/09/201605/19 Inactive metformin ER 500 mg tablet,extended release 24 hr RxNorm: 86 0975 TAKE ONE TABLET BY MOUTH TWICE DAILY 02/25/2016 07/15/2016 Inactive spironolactone 25 mg tablet RxNorm: 012956 TAKE ONE TAB LET BY MOUTH ONCE DAILY IN THE MORNING 02/25/2016 07/06/2016 Inactive prednisone 20 mg tablet RxNorm: 871409 1 Tablet(s) PO QAM 02/16/2016 02/20/2016 Inactive cefdinir 300 mg capsule RxNorm: 396015 2 Capsule(s) PO QD 02/16/2016 02/25/2016 Inactive Toprol XL 200 mg tablet,extended release RxNorm: 863765 TAKE ONE TABLET BY MOUTH ONCE DAILY 01/26/2016 04/24/2016 Inactive Aciphex 20 mg tablet,delayed release RxNorm: 030222 1 Tablet(s) PO BID 12/24/2015 09/29/2016 Inactive Omeprazole and Pepci d have not helped. Coumadin 5 mg tablet RxNorm: 044892 1 Tablet(s) PO QD 12/10/201502/19 Inactive Coumadin 5 mg tablet RxNorm: 976779 1 Tablet(s) PO QD 12/08/201511/20 Inactive Toprol XL 200 mg tablet,extended release RxNorm: 986151 TAKE ONE TABLET BY MOUTH ONCE DAILY 11/20/2015 01/18/2016 Inactive warfarin 1 mg tablet RxNorm: 688816 1 Tablet(s) PO QD 11/03/201502/19 Inactive pravastatin 40 mg tablet RxNorm: 050722 Tablet(s) TAKE ONE TABLET BY MOUTH ONCE DAILY 10/20/2015 01/17/2016 Inactive pravastatin 40 mg tablet RxNorm: 964122 TAKE ONE TABLET BY MOUT H ONCE DAILY 10/20/2015 10/19/2015 Inactive metformin ER 500 mg tablet,extended release 24 hr RxNorm: 86 0975 TAKE ONE TABLET BY MOUTH TWICE DAILY 10/03/2015 12/31/2015 Inactive Toprol XL 200 mg tablet,extended release RxNorm: 810803 TAKE ONE TABLET BY MOUTH ONCE DAILY 09/17/2015 11/15/2015 Inactive Coumadin 5 mg tablet RxNorm: 470085 1 Tablet(s) PO QD 09/02/201511/19 Inactive Wellbutrin XL 300 mg 24 hr tablet, extended release RxNorm: 763304 TAKE ONE TABLET BY MOUTH ONCE DAILY 08/01/2015 10/29/2015 Inactive Pepcid 20 mg tablet RxNorm: 196103 1 Tablet(s) PO BID as needed 05/24/2017 Inactive warfarin 1 mg tablet RxNorm: 819436 TAKE ONE TABLET BY MOUTH ON CE DAILY 07/08/2015 11/03/2015 Inactive pravastatin 40 mg tablet RxNorm: 309443 1 Tablet(s) PO QD 07/08/2015 10/05/2015 Inactive spironolactone 25 mg tablet RxNorm: 138418 TAKE ONE TAB LET BY MOUTH ONCE DAILY IN THE MORNING 06/13/2015 09/10/2015 Inactive Coumadin 5 mg tablet RxNorm: 822572 1 Tablet(s) PO QD 06/05/201508/19 Inactive Wellbutrin XL 300 mg 24 hr tablet, extended release RxNorm: 177412 TAKE ONE TABLET BY MOUTH ONCE DAILY 05/16/2015 09/26/2018 Inactive Wellbutrin XL 300 mg 24 hr tablet, extended release RxNorm: 001316 TAKE ONE TABLET BY MOUTH ONCE DAILY 05/16/2015 06/14/2015 Inactive metformin ER 500 mg tablet,extended release 24 hr RxNorm: 86 0975 TAKE ONE TABLET BY MOUTH TWICE DAILY 05/16/2015 08/13/2015 Inactive pravastatin 40 mg tablet RxNorm: 295740 1 Tablet(s) PO QD 04/10/2015 07/07/2015 Inactive Aciphex 20 mg tablet,delayed release RxNorm: 022955 1 Tablet(s) PO BID 03/07/2015 09/02/2015 Inactive Omeprazole and Pepci d have not helped. Toprol XL 200 mg tablet,extended release RxNorm: 506837 1 Table t(s) PO QD 03/05/2015 08/31/2015 Inactive Aciphex 20 mg tablet,delayed release RxNorm: 514572 1 Tablet(s) PO QD 03/04/2015 03/06/2015 Inactive Omeprazole and Pepci d have not helped. Coumadin 5 mg tablet RxNorm: 184249 1 Tablet(s) PO QD 02/28/201511/2015 Inactive Aciphex 20 mg tablet,delayed release RxNorm: 469112 1 Tablet(s) PO BID 02/11/2015 03/03/2015 Inactive Omeprazole and Pepci d have not helped. metformin ER 500 mg tablet,extended release 24 hr RxNorm: 86 0975 1 Tablet(s) PO BID 01/10/2015 04/09/2015 Inactive pravastatin 40 mg tablet RxNorm: 423565 1 Tablet(s) PO QD 01/06/2015 04/05/2015 Inactive Wellbutrin XL 300 mg 24 hr tablet, extended release RxNorm: 367931 TAKE ONE TABLET BY MOUTH ONCE DAILY 12/19/2014 02/16/2015 Inactive amoxicillin 500 mg capsule RxNorm: 738041 2 Capsule(s) PO BID 12/0612/15/2014 Inactive Flonase 50 mcg/actuation nasal spray,suspension RxNorm: 8963 23 2 Hankamer each nostril NASAL QD 12/06/2014 03/05/2015 Inactive Coumadin 5 mg tablet RxNorm: 174234 1 Tablet(s) PO QD 11/28/201410/2014 Inactive spironolactone 25 mg tablet RxNorm: 539871 1 Tablet(s) PO QAM 11/2602/23/2015 Inactive Coumadin 5 mg tablet RxNorm: 546553 1 Tablet(s) PO QD 1 Tablet(s) PO QD- NEED TO CHECK LABS 10/30/2014 11/28/2014 Inactive warfarin 1 mg tablet RxNorm: 759093 1 Tablet(s) PO QD 10/30/201409/2015 Inactive Aciphex 20 mg tablet,delayed release RxNorm: 796307 1 Tablet(s) PO QD 10/02/2014 02/10/2015 Inactive Omeprazole and Pepci d have not helped. Coumadin 5 mg tablet RxNorm: 120241 1 Tablet(s) PO QD 1 Tablet(s) PO QD- NEED TO CHECK LABS 09/30/2014 10/30/2014 Inactive pravastatin 40 mg tablet RxNorm: 262103 1 Tablet(s) PO QD 09/25/2014 01/06/2015 Inactive warfarin 1 mg tablet RxNorm: 981384 1 Tablet(s) PO QD T [place] ONE TABLET BY MOUTH DIRECTED ON MON AND THUR 08/28/2014 10/29/2014 Inactive metformin ER 500 mg tablet,extended release 24 hr RxNorm: 86 0975 1 Tablet(s) PO BID 08/28/2014 01/10/2015 Inactive amoxicillin 875 mg tablet RxNorm: 755706 1 Tablet(s) PO BID 015 08/18/2014 Inactive Toprol XL 200 mg tablet,extended release RxNorm: 616543 TAKE ONE TABLET BY MOUTH ONCE DAILY 07/22/2014 03/05/2015 Inactive Coumadin 5 mg tablet RxNorm: 525212 1 Tablet(s) PO QD 07/01/201409/18 Inactive amoxicillin 875 mg tablet RxNorm: 672806 1 Tablet(s) PO BID 015 06/30/2014 Inactive pravastatin 40 mg tablet RxNorm: 978512 1 Tablet(s) PO QD needs fasting labs 06/19/2014 09/25/2014 Inactive Coumadin 5 mg tablet RxNorm: 633401 1 Tablet(s) PO QD 1 Tablet(s) PO QD TAKE ONE TABLET BY MOUTH ONCE DAILY-need labs 05/28/2014 07/01/2014 Inactive warfarin 1 mg tablet RxNorm: 191977 1 Tablet(s) PO As Directed 05/1908/28/2014 Inactive pravastatin 40 mg tablet RxNorm: 338447 1 Tablet(s) PO QD needs fasting labs 05/14/2014 06/19/2014 Inactive metformin ER 500 mg tablet,extended release 24 hr RxNorm: 86 0975 1 Tablet(s) PO BID 04/25/2014 08/28/2014 Inactive spironolactone 25 mg tablet RxNorm: 600778 1 Tablet(s) PO QAM 04/2511/26/2014 Inactive Coumadin 5 mg tablet RxNorm: 539821 1 Tablet(s) PO QD 1 Tablet(s) PO QD TAKE ONE TABLET BY MOUTH ONCE DAILY 04/23/2014 05/28/2014 Inactive Coumadin 5 mg tablet RxNorm: 672714 1 Tablet(s) PO QD 1 Tablet(s) PO QD TAKE ONE TABLET BY MOUTH ONCE DAILY 03/22/2014 04/20/2014 Inactive Tessalon Perles 100 mg capsule RxNorm: 138730 1 Capsule(s) PO TID 0 03/22/2014 03/28/2014 Inactive cefdinir 300 mg capsule RxNorm: 600428 2 Capsule(s) PO QD 03/22/2014 03/31/2014 Inactive Medrol (Dale) 4 mg tablets in a dose pack RxNorm: 661802 Tablet(s) PO as directed 03/05/2014 08/08/2014 Inactive Coumadin 5 mg tablet RxNorm: 312148 1 Tablet(s) PO QD 1 Tablet(s) PO QD TAKE ONE TABLET BY MOUTH ONCE DAILY 02/19/2014 03/20/2014 Inactive pravastatin 40 mg tablet RxNorm: 516569 1 Tablet(s) PO QD 02/04/2014 05/14/2014 Inactive Coumadin 5 mg tablet RxNorm: 640166 1 Tablet(s) PO QD T [place] ONE TABLET BY MOUTH ONCE DAILY 01/21/2014 02/19/2014 Inactive Medrol (Dale) 4 mg tablets in a dose pack RxNorm: 408059 Tablet(s) PO as directed 01/18/2014 03/04/2014 Inactive cefdinir 300 mg capsule RxNorm: 334851 2 Capsule(s) PO QD 01/16/2014 01/25/2014 Inactive metformin ER 500 mg tablet,extended release 24 hr RxNorm: 86 0975 1 Tablet(s) PO BID 12/17/2013 04/25/2014 Inactive Wellbutrin SR 150 mg tablet,sustained-release RxNorm: 731673 1 Tablet(s) PO BID 11/30/2013 02/27/2014 Inactive spironolactone 25 mg tablet RxNorm: 778621 1 Tablet(s) PO QAM 10/2204/25/2014 Inactive Macrobid 100 mg capsule RxNorm: 175320 1 Capsule(s) PO BID 10/20/19 14 10/25/2013 Inactive Macrobid 100 mg capsule RxNorm: 170493 1 Capsule(s) PO BID 10/20/19 14 10/18/2013 Inactive Toprol XL 100 mg tablet,extended release RxNorm: 417816 1 Table t(s) PO QD 10/15/2013 01/15/2014 Inactive Toprol XL 200 mg tablet,extended release RxNorm: 847575 1 Table t(s) PO QD 10/02/2013 07/22/2014 Inactive Wellbutrin XL 300 mg 24 hr tablet, extended release RxNorm: 465527 1 Tablet(s) PO QD 09/28/2013 12/19/2014 Inactive Aciphex 20 mg tablet,delayed release RxNorm: 333908 1 Tablet(s) PO QD 08/29/2013 10/02/2014 Inactive Omeprazole and Pepci d have not helped. Coumadin 5 mg tablet RxNorm: 246043 1 Tablet(s) PO QD 08/14/201307/20 Inactive Coumadin 5 mg tablet RxNorm: 846373 1 Tablet(s) PO QD 08/14/201305/2013 Inactive pravastatin 40 mg tablet RxNorm: 336119 1 Tablet(s) PO QD 07/24/2013 02/04/2014 Inactive warfarin 1 mg tablet RxNorm: 835384 1 Tablet(s) PO QD T [place] ONE TABLET BY MOUTH DIRECTED ON MON AND THUR 07/09/2013 05/28/2014 Inactive warfarin 5 mg tablet RxNorm: 701709 1 Tablet(s) PO QD T [place] ONE TABLET BY MOUTH EVERY DAY 06/08/2013 07/07/2013 Inactive spironolactone 25 mg tablet RxNorm: 063845 1 Tablet(s) PO QAM 05/3010/15/2013 Inactive clindamycin 300 mg capsule RxNorm: 700575 2 Capsule(s) PO TID 04/1704/30/2013 Inactive warfarin 5 mg tablet RxNorm: 295889 1 Tablet(s) PO QD 03/12/201305/20 Inactive azithromycin 250 mg tablet RxNorm: 762577 2 Tablet(s) PO QD 013 03/07/2013 Inactive metformin ER 500 mg tablet,extended release 24 hr RxNorm: 86 0975 1 Tablet(s) PO BID 02/22/2013 12/17/2013 Inactive spironolactone 25 mg tablet RxNorm: 067473 1 Tablet(s) PO QAM 01/2205/30/2013 Inactive metformin ER 500 mg tablet,extended release 24 hr RxNorm: 86 0977 1 Tablet(s) PO BID 01/11/2013 02/21/2013 Inactive pravastatin 40 mg tablet RxNorm: 139677 1 Tablet(s) PO QD 01/11/2013 07/24/2013 Inactive warfarin 5 mg tablet RxNorm: 179229 1 Tablet(s) PO QD 01/04/201302/19 Inactive warfarin 1 mg tablet RxNorm: 311847 Tablet(s) PO TAKE O NE TABLET BY MOUTH DIRECTED ON MON AND THUR 12/14/2012 07/08/2013 Inactive scopolamine 1.5 mg 72 hr Transderm Patch RxNorm: 784681 TD Apply 1 patch behind ear every 72 hours, replace after 3 days. 11/08/2012 01/15/2014 Inacti ve Pepcid 20 mg tablet RxNorm: 494140 1 Tablet(s) PO BID as needed 01/31/2013 Inactive Famvir 500 mg tablet RxNorm: 409438 1 Tablet(s) PO Q8H 11/03/2012 Inactive Aciphex 20 mg tablet,delayed release RxNorm: 745547 1 Tablet(s) PO QD 11/03/2012 05/01/2013 Inactive Omeprazole and Pepci d have not helped. gabapentin 300 mg capsule RxNorm: 168543 Capsule(s) PO TID 11/04/19 13 01/15/2014 Inactive warfarin 5 mg tablet RxNorm: 967657 1 Tablet(s) PO QD 11/02/201212/19 Inactive Wellbutrin XL 300 mg 24 hr tablet, extended release RxNorm: 362921 1 Tablet(s) PO QD 10/17/2012 04/30/2013 Inactive pravastatin 40 mg tablet RxNorm: 539422 Tablet(s) PO TA KE ONE TABLET BY MOUTH EVERY DAY. NEED FASTING LABS 09/18/2012 01/10/2013 Inactive Toprol XL 200 mg tablet,extended release RxNorm: 116775 Tablet(s) PO TAKE ONE TABLET BY MOUTH EVERY DAY 09/08/2012 10/01/2013 Inactive warfarin 5 mg tablet RxNorm: 847341 1 Tablet(s) PO QD 08/31/201210/19 Inactive pravastatin 40 mg tablet RxNorm: 344325 1 Tablet(s) PO QD Needs fasting labs 08/18/2012 09/16/2012 Inactive TAKE ONE TABLET BY M OUTH EVERY DAY warfarin 1 mg tablet RxNorm: 809084 1 Tablet(s) PO As directed on Mon and Th08/11/2012 12/13/2012 Inactive spironolactone 25 mg tablet RxNorm: 463621 1 Tablet(s) PO QAM 07/1110/08/2012 Inactive warfarin 5 mg tablet RxNorm: 368541 1 Tablet(s) PO QD 07/03/201208/19 Inactive Diflucan 100 mg tablet RxNorm: 928353 1 Tablet(s) PO QD 05/04/2012 Inactive Cipro 500 mg tablet RxNorm: 348705 1 Tablet(s) PO BID 05/04/201204/22 Inactive Aciphex 20 mg tablet,delayed release RxNorm: 936701 1 Tablet(s) PO QD 05/04/2012 07/02/2012 Inactive Omeprazole and Pepci d have not helped. warfarin 5 mg tablet RxNorm: 876997 1 Tablet(s) PO QD 05/02/201206/19 Inactive warfarin 5 mg tablet RxNorm: 059229 1 Tablet(s) PO QD 03/02/201204/21 Inactive Toprol XL 200 mg tablet,extended release RxNorm: 654238 1 Table t(s) PO QD 03/02/2012 05/30/2012 Inactive spironolactone 25 mg tablet RxNorm: 437643 1 Tablet(s) PO QAM 02/0707/11/2012 Inactive pravastatin 40 mg tablet RxNorm: 246222 Tablet(s) PO 01/31/201208/17 Inactive TAKE ONE TABLET BY MOUTH EVERY DAY pravastatin 40 mg tablet RxNorm: 022406 1 Tablet(s) PO QD 01/31/2012 08/18/2012 Inactive omeprazole 40 mg capsule,delayed release RxNorm: 827195 1 Capsule(s) PO QD for stomach 01/11/2012 11/02/2012 Inactive for stomach warfarin 5 mg tablet RxNorm: 503106 1 Tablet(s) PO QD 01/03/201202/18 Inactive warfarin 5 mg tablet RxNorm: 896051 1 Tablet(s) PO QD 12/03/201112/19 Inactive pravastatin 40 mg tablet RxNorm: 875483 1 Tablet(s) PO QD 11/25/2011 01/23/2012 Inactive cefdinir 300 mg Cap RxNorm: 645360 1 Capsule(s) PO BID 10/11/201103/2011 Inactive Culturelle 10 billion cell Cap RxNorm: 669427 1 Capsule(s) PO BID 0 10/11/2011 11/09/2011 Inactive Diflucan 100 mg Tab RxNorm: 228401 1 Tablet(s) PO QD 10/11/201110/19 Inactive Wellbutrin XL 300 mg 24 hr tablet, extended release RxNorm: 059020 1 Tablet(s) PO QD 09/14/2011 10/17/2012 Inactive pravastatin 40 mg tablet RxNorm: 088007 1 Tablet(s) PO QD 08/25/2011 11/25/2011 Inactive Coumadin 5 mg tablet RxNorm: 730924 Tablet(s) PO Take as direct ed by doctor. 07/07/2011 12/03/2011 Inactive Singulair 10 mg Tab RxNorm: 640086 1 Tablet(s) PO QD al lergy medication. (Please try to be consistent in dosing) 06/23/2011 01/15/2014 Inactive Diflucan 100 mg Tab RxNorm: 286305 1 Tablet(s) PO QD 06/14/201107/02 Inactive cefdinir 300 mg Cap RxNorm: 035049 1 Capsule(s) PO BID 06/14/201106/2011 Inactive pravastatin 40 mg Tab RxNorm: 516022 1 Tablet(s) PO QD 05/25/201108/2011 Inactive warfarin 5 mg Tab RxNorm: 118260 Tablet(s) PO 05/25/2011 10/18/2011 In active TAKE ONE TABLET BY MOUTH EVERY DAY Toprol XL 200 mg tablet,extended release RxNorm: 045568 1 Table t(s) PO QD 03/05/2011 06/02/2011 Inactive spironolactone 25 mg tablet RxNorm: 601332 1 Tablet(s) PO QAM 02/2402/08/2012 Inactive omeprazole 40 mg capsule,delayed release RxNorm: 520597 1 Capsule(s) PO QD for stomach 01/06/2011 01/11/2012 Inactive for stomach warfarin 5 mg Tab RxNorm: 156935 1 Tablet(s) PO QD 12/17/2010 011 Inactive warfarin 5 mg Tab RxNorm: 332737 1 Tablet(s) PO QD 11/18/2010 011 Inactive spironolactone 25 mg Tab RxNorm: 446916 1 Tablet(s) PO QAM 11/13/19 11 02/24/2011 Inactive Coumadin 6 mg Tab RxNorm: 030369 1 Tablet(s) PO QD 10/28/2010 011 Inactive May have generic hydrochlorothiazide 25 mg Tab RxNorm: 751577 1 Tablet(s) PO QAM 11/11/2010 Inactive Wellbutrin XL 300 mg 24 hr Tab RxNorm: 897096 1 Tablet(s) PO QD 09/14/2011 Inactive Septra DS 800 mg-160 mg Tab RxNorm: 021913 1 Tablet(s) PO BID 06/0806/17/2010 Inactive Pyridium 100 mg Tab RxNorm: 1201329 1 Tablet(s) PO TID 06/08/2010 Inactive Wellbutrin XL 300 mg 24 hr Tab RxNorm: 247524 1 Tablet(s) PO QD 05/201007/15/2010 Inactive hydroxyzine 25 mg Tab RxNorm: 907629 1 Tablet(s) PO QID prn itching--take routinely at bedtime. (pt. may not refil at this time but later) 05/20/2010 10/10/2011 Inactive Zyrtec 10 mg Tab RxNorm: 1713656 1 Tablet(s) PO BID 05/20/20102010 Inactive Coumadin 1 mg Tab RxNorm: 919666 1 Tablet(s) PO 6mg M-F, 7mg S-S 11/16/2010 Inactive hydroxyzine 25 mg Tab RxNorm: 608865 1 Tablet(s) PO QID prn itching--take routinely at bedtime 04/30/2010 05/19/2010 Inactive Toprol XL 200 mg 24 hr Tab RxNorm: 697704 1 Tablet(s) PO QD 011 06/23/2010 Inactive lisinopril-hydrochlorothiazide 10 mg-12.5 mg Tab RxNorm: 197 885 1 Tablet(s) PO QD 04/20/2010 04/29/2010 Inactive omeprazole 40 mg Cap, Delayed Release RxNorm: 041253 1 Capsule(s) PO QD for stomach 04/20/2010 08/17/2010 Inactive lisinopril-hydrochlorothiazide 10 mg-12.5 mg Tab RxNorm: 197 885 Tablet(s) PO 1QDAM - TAKE ONE TABLET BY MOUTH EVERY DAY IN THE MORNING 03/09/2010 Inactive lisinopril-hydrochlorothiazide 10 mg-12.5 mg Tab RxNorm: 197 885 1 Tablet(s) PO QD 02/27/2010 04/20/2010 Inactive Wellbutrin XL 300 mg 24 hr Tab RxNorm: 740950 1 Tablet(s) PO QD 05/21/2010 Inactive lisinopril-hydrochlorothiazide 10 mg-12.5 mg Tab RxNorm: 197 885 1 Tablet(s) PO QD 01/28/2010 02/26/2010 Inactive omeprazole 40 mg Cap, Delayed Release RxNorm: 513426 1 Capsule(s) PO QD for stomach 01/22/2010 04/20/2010 Inactive Altace 10 mg Cap RxNorm: 193111 1 Capsule(s) PO QD for BP 01/22/2010 03/22/2010 Inactive Coumadin 6 mg Tab RxNorm: 347544 1 Tablet(s) PO QD May have generic 12/03/2009 05/01/2010 Inactive Coumadin 6 mg Tab RxNorm: 874184 1 Tablet(s) PO 12/01/2009 12/02/2009 Inactive Coumadin 1 mg Tab RxNorm: 921056 1 Tablet(s) PO QD 11/28/2009 010 Inactive Coumadin 1 mg Tab RxNorm: 525690 1 Tablet(s) PO QD 07/02/2009 010 Inactive lisinopril-hydrochlorothiazide 20 mg-12.5 mg Tab RxNorm: 197 886 2 Tablet(s) PO QAM No Start Date 10/12/2010 Inactive Zofran ODT 4 mg disintegrating tablet RxNorm: 985263 1 Tablet(s) PO Q6H as needed for nausea No Start Date 09/14/2016 Inactive Wellbutrin XL 300 mg 24 hr Tab RxNorm: 545972 1 Tablet(s) PO QD No Start Date 02/02/2010 Inactive alprazolam 0.25 mg tablet RxNorm: 334070 1 Tablet(s) PO prior t o flight No Start Date 05/24/2017 Inactive hydrocodone-acetaminophen 5 mg-500 mg Tab RxNorm: 033153 1-2 Tablet(s) PO Q4H as needed for pain No Start Date 12/02/2010 Inactive Toprol XL 100 mg 24 hr Tab RxNorm: 605074 1 Tablet(s) PO QD No Star t Date 10/14/2013 Inactive Celebrex 200 mg capsule RxNorm: 334476 1 Capsule(s) PO QD No Start Date 05/22/2017 Inactive Flexeril 10 mg tablet RxNorm: 594838 1 Tablet(s) PO TID No Start Da te 04/02/2019 Inactive scopolamine 1 mg over 3 days transdermal patch RxNorm: 45329 2 1 TD take off in 72 hours. No Start Date 07/31/2017 Inactive OneTouch Ultra Test strips RxNorm: Test blood sugar daily No S tart Date 04/23/2018 Inactive Medrol (Dale) 4 mg tablets in a dose pack RxNorm: 515830 Tablet(s) PO As directed No Start Date 01/15/2014 Inactive Coumadin 5 mg Tab RxNorm: 907980 1 Tablet(s) PO QD No Start Date 06/19 Inactive Pepcid 40 mg Tab RxNorm: 735550 1 Tablet(s) PO QD No Start Date 06/23 Inactive prednisone 10 mg Tab RxNorm: 623704 1 Tablet(s) PO BID No Start Date 06/23/2010 Inactive spironolactone 25 mg tablet RxNorm: 021680 1 Tablet(s) PO QAM No St art Date 09/26/2018 Inactive scopolamine 1.5 mg 72 hr Transderm Patch RxNorm: 067972 TD Apply 1 patch behind ear every 72 hours, replace after 3 days. No Start Date 11/07/2012 Inacti ve azithromycin 250 mg Tab RxNorm: 905872 Tablet(s) PO 2 t abs on day one and one tab on days 2-5. (antibiotic) No Start Date 10/10/2011 Inactive Medrol (Dale) 4 mg Tabs in a Dose Pack RxNorm: 885712 1 Tablet(s) PO as directed. (steroid pack) No Start Date 10/10/2011 Inactive Lovenox 40 mg/0.4 mL subcutaneous syringe RxNorm: 608072 40 Mil ligram(s) SQ QD No Start Date 05/04/2018 Inactive Celebrex 200 mg capsule RxNorm: 721008 1 Capsule(s) PO BID as n eeded for pain No Start Date 01/13/2017 Inactive warfarin 1 mg tablet RxNorm: 274666 1 Tablet(s) PO As directed on Tue and No Start Date 08/10/2012 Inactive cefuroxime axetil 500 mg Tab RxNorm: 008012 1 Tablet(s) PO BID No S tart Date 06/13/2011 Inactive Lovenox 40 mg/0.4 mL subcutaneous syringe RxNorm: 212713 40 Mil ligram(s) SQ QD No Start Date 01/26/2018 Inactive Coumadin 5 mg tablet RxNorm: 750406 1 Tablet(s) PO QD No Start Date 0 08/13/2013 Inactive Medrol (Dale) 4 mg tablets in a dose pack RxNorm: 140270 Tablet(s) PO as directed No Start Date 01/17/2014 Inactive Coumadin 6 mg tablet RxNorm: 155778 1 Tablet(s) PO QD No Start Date 0 06/20/2016 Inactive warfarin 5 mg tablet RxNorm: 967907 1 Tablet(s) PO QD No Start Date 0 12/02/2011 Inactive Medrol (Dale) 4 mg Tabs in a Dose Pack RxNorm: 194601 Tablet(s) PO as directed No Start Date 06/23/2010 Inactive Flonase 50 mcg/actuation nasal spray,suspension RxNorm: 8963 23 2 [place] NASAL BID No Start Date 12/05/2014 Inactive Pepcid 20 mg tablet RxNorm: 816022 1 Tablet(s) PO BID as needed No Start Date 11/02/2012 Inactive spironolactone 25 mg tablet RxNorm: 908754 1 Tablet(s) PO QAM No St art Date 04/02/2019 Inactive Medication Administered No Medication Administered data Immunizations No Immunization data Results Observation Observation Code Item Item Code Result Date S ervice Location MICROALBUMIN URINE RANDOM 01186 CREAT MG/D 139 MG/DL Unknown MICROALBUMIN URINE RANDOM 71359 CRE/100 1.39 G/L 12/20 Unknown Procedures Procedure Codes Date URINALYSIS NONAUTO W/O SCOPE CPT-4: 04966 09/27/2018 URINE CULTURE/ COLONY COUNT CPT-4: 95145 09/27/2018 URINALYSIS NONAUTO W/O SCOPE CPT-4: 98706 10/13/2017 URINE CULTURE/ COLONY COUNT CPT-4: 24539 10/13/2017 STREP A ASSAY W/OPTIC CPT-4: 47898 06/21/2016 STREP A ASSAY W/OPTIC CPT-4: 08984 06/24/2014 THER/PROPH/DIAG INJ SC/IM CPT-4: 58319 03/22/2014 METHYLPREDNISOLONE 40 MG INJ CPT-4: J1030 03/22/2014 TRIAMCINOLONE ACET INJ NOS CPT-4: J3301 03/22/2014 URINALYSIS NONAUTO W/O SCOPE CPT-4: 42169 10/19/2013 URINE CULTURE/ COLONY COUNT CPT-4: 16152 10/19/2013 CEFTRIAXONE SODIUM INJECTION CPT-4: J0696 03/02/2013 THER/PROPH/DIAG INJ SC/IM CPT-4: 71787 03/02/2013 CEFTRIAXONE SODIUM INJECTION CPT-4: J0696 03/01/2013 THER/PROPH/DIAG INJ SC/IM CPT-4: 11347 03/01/2013 THER/PROPH/DIAG INJ SC/IM CPT-4: 66457 03/01/2013 METHYLPREDNISOLONE 40 MG INJ CPT-4: J1030 03/01/2013 TRIAMCINOLONE ACET INJ NOS CPT-4: J3301 03/01/2013 MICROALBUMIN QUANTITATIVE CPT-4: 91194 01/11/2013 URINE CULTURE/ COLONY COUNT CPT-4: 38999 05/04/2012 URINALYSIS NONAUTO W/O SCOPE CPT-4: 24378 05/04/2012 URINE CULTURE/ COLONY COUNT CPT-4: 24856 05/29/2010 TRIAMCINOLONE ACET INJ NOS CPT-4: J3301 05/20/2010 METHYLPREDNISOLONE 40 MG INJ CPT-4: J1030 05/20/2010 THER/PROPH/DIAG INJ SC/IM CPT-4: 13288 05/20/2010 Vital Signs Date Vital 05/09/2019 Blood [...] 1: 134/78 Code: 8480-6 BMI: 35.1 Code: 76220-9 Heart Rate 1: 76 bpm Height: 5'9" Respiratory Rate: 20 bpm Temperature: 36 .6 (C) / 97.8 (F) Weight: 238 lbs 12/27/2017 Blood Pressure 1: 126/64 Code: 8480-6 BMI: 34.7 Code: 48263-4 Heart Rate 1: 72 bpm Height: 5'9" Respiratory Rate: 20 bpm Temperature: 36 .8 (C) / 98.2 (F) Weight: 235 lbs 10/12/2017 Blood Pressure 1: 142/80 Code: 8480-6 BMI: 35.1 Code: 64419-8 Heart Rate 1: 98 bpm Height: 5'9" Respiratory Rate: 22 bpm SpO2: 100% Tempera ture: 36.5 (C) / 97.7 (F) Weight: 238 lbs 09/16/2017 Blood Pressure 1: 136/82 Code: 8480-6 BMI: 34.1 Code: 93802-8 Heart Rate 1: 82 bpm Height: 5'9" Respiratory Rate: 18 bpm SpO2: 96% Tempera ture: 36.3 (C) / 97.3 (F) Weight: 231 lbs 05/25/2017 Blood Pressure 1: 122/82 Code: 8480-6 BMI: 32.3 Code: 93030-1 Heart Rate 1: 116 bpm Height: 5'9" Respiratory Rate: 20 bpm SpO2: 98% Tempera ture: 35.6 (C) / 96.1 (F) Weight: 219 lbs 01/03/2017 Blood Pressure 1: 126/78 Code: 8480-6 BMI: 33.4 Code: 67097-5 Heart Rate 1: 72 bpm Height: 5'9" Respiratory Rate: 20 bpm Temperature: 36 .8 (C) / 98.2 (F) Weight: 226 lbs 09/23/2016 Blood Pressure 1: 126/82 Code: 8480-6 BMI: 33.8 Code: 55933-8 Heart Rate 1: 80 bpm Height: 5'9" Respiratory Rate: 20 bpm SpO2: 97% Tempera ture: 36.8 (C) / 98.2 (F) Weight: 229 lbs 09/03/2016 Blood Pressure 1: 188/64 Code: 8480-6 Bl ood Pressure 2: 166/92 Code: 8480-6 BMI: 34.4 Code: 48277-4 Heart Rate 1: 66 bpm Height: 5'9" Res piratory Rate: 20 bpm SpO2: 98% Temperature: 35.7 (C) / 96.2 (F) Weight: 233 lbs 07/08/2016 Blood Pressure 1: 134/82 Code: 8480-6 Heart Rate 1: 64 bpm Height: 5'9" Respiratory Rate: 20 bpm SpO2: 97% Temperature: 36.6 (C) / 97.8 (F) Weight: 06/21/2016 Blood Pressure 1: 112/68 Code: 8480-6 BMI: 33.8 Code: 68033-1 Heart Rate 1: 64 bpm Height: 5'9" Respiratory Rate: 20 bpm SpO2: 95% Tempera ture: 36.3 (C) / 97.3 (F) Weight: 229 lbs 02/23/2016 Blood Pressure 1: 128/78 Code: 8480-6 BMI: 33.4 Code: 57427-5 Heart Rate 1: 74 bpm Height: 5'9" [...] 1: 122/80 Code: 8480-6 BMI: 32.2 Code: 13427-2 Heart Rate 1: 80 bpm Height: 5'9" Respiratory Rate: 20 bpm Temperature: 37 .0 (C) / 98.6 (F) Weight: 218 lbs 08/09/2014 Blood Pressure 1: 132/84 Code: 8480-6 BMI: 33.1 Code: 14156-0 Heart Rate 1: 72 bpm Height: 5'9" Respiratory Rate: 20 bpm Temperature: 36 .7 (C) / 98.0 (F) Weight: 224 lbs 06/24/2014 Blood Pressure 1: 132/80 Code: 8480-6 BMI: 32.8 Code: 49307-1 Heart Rate 1: 68 bpm Height: 5'9" Respiratory Rate: 20 bpm Temperature: 36 .4 (C) / 97.6 (F) Weight: 222 lbs 03/22/2014 Blood Pressure 1: 128/84 Code: 8480-6 BMI: 32.5 Code: 27906-0 Heart Rate 1: 78 bpm Height: 5'9" Respiratory Rate: 22 bpm Temperature: 36 .0 (C) / 96.8 (F) Weight: 220 lbs 03/05/2014 Blood Pressure 1: 124/78 Code: 8480-6 BMI: 31.9 Code: 68265-8 Heart Rate 1: 82 bpm Height: 5'9" Respiratory Rate: 20 bpm Temperature: 35 .8 (C) / 96.4 (F) Weight: 216 lbs 01/16/2014 Blood Pressure 1: 116/68 Code: 8480-6 BMI: 33.8 Code: 09097-5 Heart Rate 1: 72 bpm Height: 5'7" Respiratory Rate: 20 bpm Temperature: 36 .6 (C) / 97.9 (F) Weight: 216 lbs 05/10/2013 Blood Pressure 1: 124/86 Code: 8480-6 BMI: 34.3 Code: 62183-4 Heart Rate 1: 84 bpm Height: 5'7" [...] 1: 116/84 Code: 8480-6 BMI: 33.1 Code: 94862-4 Heart Rate 1: 64 bpm Height: 5'9" Respiratory Rate: 20 bpm Temperature: 36 .4 (C) / 97.6 (F) Weight: 224 lbs 01/11/2013 Blood Pressure 1: 126/84 Code: 8480-6 BMI: 35.3 Code: 54618-1 Heart Rate 1: 68 bpm Height: 5'9" Respiratory Rate: 20 bpm Temperature: 36 .7 (C) / 98.1 (F) Weight: 239 lbs 11/03/2012 Blood Pressure 1: 104 Code: 8480-6 BMI: 34.4 Code: 27173-3 Heart Rate 1: 72 bpm Height: 5'9" Respiratory Rate: 20 bpm Temperature: 36 .8 (C) / 98.3 (F) Weight: 233 lbs 05/04/2012 Blood Pressure 1: 12474 Code: 8480-6 BMI: 33.7 Code: 67564-3 Heart Rate 1: 84 bpm Height: 5'9" Temperature: 36.3 (C) / 97.3 (F) Weight: 228 lbs 10/11/2011 Blood Pressure 1: 11070 Code: 8480-6 BMI: 33.7 Code: 77415-5 Heart Rate 1: 64 bpm Height: 5'9" Temperature: 36.8 (C) / 98.3 (F) Weight: 228 lbs 06/23/2011 Blood Pressure 1: 114 Code: 8480-6 BMI: 33.4 Code: 27814-8 Heart Rate 1: 80 bpm Height: 5'9" Respiratory Rate: 20 bpm Temperature: 36 .7 (C) / 98.0 (F) Weight: 226 lbs 06/14/2011 Blood Pressure 1: 118 Code: 8480-6 BMI: 33.4 Code: 04307-9 Heart Rate 1: 80 bpm Height: 5'9" [...] 1: 126/82 Code: 8480-6 BMI: 32.6 Code: 44501-7 Heart Rate 1: 68 bpm Height: 5'9" [...] 1: 140/92 Code: 8480-6 BMI: 31.3 Code: 20340-8 Heart Rate 1: 60 bpm Height: 5'10" [...] upper back on 08/13/16 while camping around [place], [place]. Patient states is tender around tick [...] 01/22/2010 Encounters Encounter Performer Location Codes Date ([id number]) OFFICE/OUTPATIENT VISIT EST Diagnosis: Type 2 diabetes mellitus without complications[ICD10: E11.9] Jessica GEE DO [facility] CPT-4: 18360 05/09/2019 ([id number]) OFFICE/OUTPATIENT VISIT EST Diagnosis: Type 2 diabetes mellitus without complications[ICD10: E11.9] Diagnosis: Essential hypertension[ICD10: I10] Jessica Marlen GEE [facility] CPT-4: 55026 04/03/2019 ([id number]) OFFICE/OUTPATIENT VISIT EST Diagnosis: Gastro-esophageal reflux disease without esophagitis[ICD10: K21.9] Diagnosis: Urinary tract infection, site not specified[ICD10: N39.0] Diagnosis: Ventral hernia without obstruction or gangrene[ICD10: K43.9] Jessica SMITHLINE Monica GEE [facility] CPT-4: 40708 09/27/2018 ([id number]) OFFICE/OUTPATIENT VISIT EST Diagnosis: Essential (primary) hypertension[ICD10: I10] Diagnosis: Type 2 diabetes mellitus without complications[ICD10: E11.9] Diagnosis: Carpal tunnel syndrome, right upper limb[ICD10: G56.01] Diagnosis: Primary insomnia[ICD10: F51.01] [facility] 04/24/2018 ([id number]) OFFICE/OUTPATIENT VISIT EST Diagnosis: Type 2 diabetes mellitus without complications[ICD10: E11.9] Diagnosis: Mixed hyperlipidemia[ICD10: E78.2] Diagnosis: Essential (primary) hypertension[ICD10: I10] Diagnosis: Pain in unspecified joint[ICD10: M25.50] Jessica Michaelaaronderek SMITHJESSICA Monica GEE [facility] CPT-4: 27953 12/27/2017 ([id number]) NURSE/OUTPATIENT VISIT EST Diagnosis: Hematuria, unspecified[ICD10: R31.9] Jessica Michaelaaronderek SMITH ABNER Monica [facility]: 42199 10/13/2017 ([id number]) OFFICE/OUTPATIENT VISIT EST Diagnosis: Pleurodynia[ICD10: R07.81] Sofi SMITHLINE Monica [facility] CPT-4: 43584 10/12/2017 ([id number]) OFFICE/OUTPATIENT VISIT EST Diagnosis: Acute bronchitis, unspecified[ICD10: J20.9] Sofi GEE DO [facility] CPT-4: 49443 09/16/2017 ([id number]) OFFICE/OUTPATIENT VISIT EST Diagnosis: Other specified postprocedural states[ICD10: Z98.890] Diagnosis: Cellulitis of neck[ICD10: L03.221] Diagnosis: Tachycardia, unspecified[ICD10: R00.0] Jessica GEE [facility] CPT-4: 27246 05/25/2017 ([id number]) OFFICE/OUTPATIENT VISIT EST Diagnosis: Lumbago with sciatica, right side[ICD10: M54.41] Diagnosis: Pain in unspecified joint[ICD10: M25.50] Jessica GEE [facility] CPT-4: 03048 01/03/2017 ([id number]) OFFICE/OUTPATIENT VISIT EST Diagnosis: Bitten or stung by nonvenomous insect and other nonvenomous arthropods, subsequent encounter[ICD10: W57.XXXD] Diagnosis: Essential (primary) hypertension[ICD10: I10] Diagnosis: Low back pain[ICD10: M54.5] Jessica CARBAJAL [facility] CPT-4: 04648 09/23/2016 OFFICE/OUTPATIENT VISIT EST Diagnosis: Bitten or stung by nonvenomous insect and other nonvenomous arthropods, initial encounter[ICD10: W57.XXXA] Diagnosis: Essential (primary) hypertension[ICD10: I10] Kaitlynn Mosley JESSICA GEE [facility] CPT-4: 99026 09/03/2016 ([id number]) OFFICE/OUTPATIENT VISIT EST Diagnosis: Low back pain[ICD10: M54.5] Diagnosis: Radiculopathy, lumbosacral region[ICD10: M54.17] Jessica GEE [facility] CPT-4: 85230 07/08/2016 ([id number]) OFFICE/OUTPATIENT VISIT EST Diagnosis: Acute pharyngitis, unspecified[ICD10: J02.9] Jessica GEE [facility] CPT-4: 42925 06/21/2016 ([id number]) OFFICE/OUTPATIENT VISIT EST Diagnosis: Cough[ICD10: R05] Diagnosis: Fever, unspecified[ICD10: R50.9] Janiya GEE [facility] CPT-4: 21407 02/23/2016 ([id number]) OFFICE/OUTPATIENT VISIT EST Diagnosis: Acute sinusitis, unspecified[ICD10: J01.90] Jessica Marlen GEE [facility] CPT-4: 63435 02/16/2016 OFFICE/OUTPATIENT VISIT EST Diagnosis: Type 2 diabetes mellitus without complications[ICD10: E11.9] Diagnosis: Gastro-esophageal reflux disease without esophagitis[ICD10: K21.9] Diagnosis: Ventral hernia without obstruction or gangrene[ICD10: K43.9] Suki GEE [facility] CPT-4: 85955 02/11/2015 OFFICE/OUTPATIENT VISIT EST 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] Diagnosis: Essential (primary) hypertension[ICD10: I10] Suki GEE [facility] CPT-4: 32946 01/28/2015 OFFICE/OUTPATIENT VISIT EST Diagnosis: SINUSITIS, ACUTE[ICD9: 461.9] Kaitlynn MENDENHALLQUELINE Monica GEE [facility] CPT-4: 69300 12/06/2014 ([id number]) OFFICE/OUTPATIENT VISIT EST Diagnosis: SINUSITIS, ACUTE[ICD9: 461.9] Kaitlynn MENDENHALLQUELINE Monica GEE [facility] CPT-4: 68234 08/09/2014 ([id number]) OFFICE/OUTPATIENT VISIT EST Diagnosis: TONSILLITIS, ACUTE[ICD9: 463] Suki GEE DO [facility] CPT-4: 13557 06/24/2014 OFFICE/OUTPATIENT VISIT EST Diagnosis: SINUSITIS, ACUTE[ICD9: 461.9] Diagnosis: EUSTACHIAN TUBE DYSFUNCTION[ICD9: 381.81] Diagnosis: COUGH[ICD9: 786.2] Suki Jun GEE [facility] CPT-4: 53009 03/22/2014 OFFICE/OUTPATIENT VISIT EST Diagnosis: Elbow pain, right[ICD9: 719.42] Suki GEE DO [facility] CPT-4: 68198 03/05/2014 OFFICE/OUTPATIENT VISIT EST Diagnosis: SINUSITIS, ACUTE[ICD9: 461.9] Jessica GEE DO [facility] CPT-4: 79593 01/16/2014 ([id number]) OFFICE/OUTPATIENT VISIT EST Diagnosis: GROSS HEMATURIA[ICD9: 599.71] Jessica GEE DO [facility] CPT-4: 44024 10/19/2013 ([id number]) OFFICE/OUTPATIENT VISIT EST Diagnosis: DM W/O COMPLICATION TYPE II[ICD9: 250.00] Diagnosis: HYPERLIPIDEMIA NEC/NOS[ICD9: 272.4] Jessica GEE DO [facility] CPT-4: 50260 05/10/2013 ([id number]) OFFICE/OUTPATIENT VISIT EST Diagnosis: SINUSITIS, ACUTE[ICD9: 461.9] Jessica GEE DO [facility] CPT-4: 61865 04/17/2013 OFFICE/OUTPATIENT VISIT EST Diagnosis: OTITIS MEDIA NOS[ICD9: 382.9] Diagnosis: COUGH[ICD9: 786.2] Suki GEE DO [facility] CPT-4: 22765 03/05/2013 OFFICE/OUTPATIENT VISIT EST Diagnosis: COUGH[ICD9: 786.2] Diagnosis: BRONCHITIS, ACUTE[ICD9: 466.0] Suki GEE DO [facility] CPT-4: 27652 03/02/2013 OFFICE/OUTPATIENT VISIT EST Diagnosis: COUGH[ICD9: 786.2] Diagnosis: OTITIS MEDIA NOS[ICD9: 382.9] Diagnosis: BRONCHITIS, ACUTE[ICD9: 466.0] Suki GEE DO [facility] CPT-4: 71512 03/01/2013 OFFICE/OUTPATIENT VISIT EST Diagnosis: DM W/O COMPLICATION TYPE II, UNCONTROLLED[ICD9: 250.02] Jessica GEE DO [facility] CPT-4: 49878 02/22/2013 ([id number]) PREV VISIT EST AGE 40-64 Diagnosis: DM W/O COMPLICATION TYPE II, UNCONTROLLED[ICD9: 250.02] Diagnosis: HYPERTENSION[ICD9: 401.9] Diagnosis: ROUTINE MEDICAL EXAM[ICD9: V70.0] Jessica Michaelcorby Lucas DomingaLloyd MARLEN [facility] CPT-4: 22727 01/11/2013 OFFICE/OUTPATIENT VISIT EST Diagnosis: HZ (HERPES ZOSTER)[ICD9: 053.9] Kaitlynn Dimitri MENDENHALLQUELINE [facility]: 91497 11/03/2012 OFFICE/OUTPATIENT VISIT EST Diagnosis: URINARY TRACT INFECTION[ICD9: 599.0] Diagnosis: GERD[ICD9: 530.81] Diagnosis: PHARYNGITIS, ACUTE[ICD9: 462] Jessica Marlen SMITHLINE [facility] CPT[facility]: 55183 05/04/2012 OFFICE/OUTPATIENT VISIT EST Diagnosis: COUGH[ICD9: 786.2] Diagnosis: SINUSITIS, ACUTE[ICD9: 461.9] Diagnosis: PHARYNGITIS, ACUTE[ICD9: 462] Jessica Marlen SMITHLINE [facility] CPT[facility]: 48579 10/11/2011 OFFICE/OUTPATIENT VISIT EST Diagnosis: COUGH[ICD9: 786.2] Diagnosis: SINUSITIS, ACUTE[ICD9: 461.9] Diagnosis: PHARYNGITIS, ACUTE[ICD9: 462] Diagnosis: ALLERGIC RHINITIS[ICD9: 477.9] Xiomara VO [facility]a [facility] CPT[facility]: 20023 06/23/2011 OFFICE/OUTPATIENT VISIT EST Diagnosis: COUGH[ICD9: 786.2] Diagnosis: SINUSITIS, ACUTE[ICD9: 461.9] Diagnosis: PHARYNGITIS, ACUTE[ICD9: 462] Jessica Mccormickderek JESSICA [facility] CPT-[facility]: 76565 06/14/2011 OFFICE/OUTPATIENT VISIT EST Diagnosis: SINUSITIS, ACUTE[ICD9: 461.9] Diagnosis: PHARYNGITIS, ACUTE[ICD9: 462] Jessica MENDENHALLQUELINE [facility] CPT-[facility]: 34063 12/02/2010 OFFICE/OUTPATIENT VISIT EST Diagnosis: HYPERTENSION[ICD9: 401.9] Diagnosis: HYPERLIPIDEMIA NEC/NOS[ICD9: 272.4] Diagnosis: DERMATITIS NOS[ICD9: 692.9] Jessicaabner Gee [facility] CPT-4: 14187 11/12/2010 OFFICE/OUTPATIENT VISIT EST Jessica [facility] CPT- 4: 21569 10/13/2010 ([id number]) OFFICE/OUTPATIENT VISIT EST Jessica [facility]INS [facility] CPT-4: 24208 06/24/2010 ([id number]) OFFICE/OUTPATIENT VISIT EST Jessica [facility]INS [facility] CPT-4: 20717 06/08/2010 ([id number]) OFFICE/OUTPATIENT VISIT EST Xiomara Rodriguez [facility] CPT-4: 61795 05/20/2010 ([id number]) OFFICE/OUTPATIENT VISIT EST Jessicashannan [facility]INS [facility] CPT-4: 73539 04/30/2010 ([id number]) OFFICE/OUTPATIENT VISIT, EST Jessica MANZANO [facility] [employer] CPT-4: 86080 01/22/2010 Plan of Care Planned Activity Notes [...] E11.9 04/03/2019 Appointment: Jessica Gee WPtel: [phone] [id number] FOLLOW UP 04/03/2019 Visit Diagnosis Plan: Urinary [...] : K21.9 09/27/2018 Appointment: Jessica Gee WPtel: [facility] [address] ACUTE ILLNESS 09/27/2018 Visit Diagnosis [...] : F51.01 04/24/2018 Appointment: Jessica Gee WPtel: [facility] [address] ACUTE ILLNESS 04/24/2018 Patient Education: celecoxib- [employer] [id number] Completed 04/24/2018 Patient Education: amitriptyline- [employer] [id number] Completed 04/24/2018 Visit Diagnosis Plan: Type 2 [...] M25.50 12/27/2017 Appointment: Jessica Gee WPtel: [phone] FOLLOW UP 12/27/2017 Patient Education: Patient Medication Summary Completed 12/27/2017 Patient Education: Patient Medication Summary Completed 12/19/2017 Care Plan: MAMMOGRAM BOTH BREASTS LOINC : 25608-5 Pending 12/19/2017 Patient Education: Patient Medication Summary Completed 12/16/2017 Care Plan: ASSAY THYROID STIM HORMONE Pen ding 12/16/2017 Care Plan: ASSAY OF FREE THYROXINE Pendin 12/16/2017 Care Plan: LIPID PANEL LOINC : 10915-2 Pending 12/16/2017 Care Plan: CBC Pending 12/16/2017 Care Plan: A1C HPLC LOINC : 24846-6 Pending 12/16/2017 Patient Education: Patient Medication Summary Completed 10/17/2017 Care Plan: CT ANGIOGRAPHY CHEST LOINC : 60163-1 Pending 10/17/2017 Patient Education: Patient Medication Summary Completed 10/14/2017 Care Plan: CT ANGIOGRAPHY CHEST LOINC : 68256-0 Pending 10/14/2017 Appointment: Jessica Gee WPtel: [phone] [facility] [facility] 10/13/2017 Patient Education: Patient Medication Summary [...] : R07.81 10/12/2017 Appointment: Sofi [address] [id number] ACUTE ILLNESS 10/12/2017 Patient Education: Patient Medication [...] : J20.9 09/16/2017 Appointment: Sofi Gresham [address] [facility] ACUTE ILLNESS 09/16/2017 Patient Education: Patient Medication Summary Completed 09/16/2017 Appointment: Jessica Gee WPtel: [address] [place] [address] [place] CANCELED 08/10/2017 Visit Diagnosis Plan: Cellulitis [...] : R00.0 05/25/2017 Appointment: Jessica Gee WPtel: [address] [place], [place] [id number] [place] FOLLOW UP 05/25/2017 Patient Education: Patient Medication Summary Completed 05/25/2017 Visit Diagnosis Plan: Lumbago with sciatica, right britton e Discussion: Check arthritis panel Patient awaiting neck surgery before surgery will consider back surgery ICD-9 : 724.2 ICD-10 : M54.41 01/03/2017 Appointment: Jessica Gee WPtel: [address] [place], [place] [address] ACUTE ILLNESS 01/03/2017 Patient Education: Patient Medication Summary Completed 01/03/2017 Patient Education: Patient Medication Summary Completed 12/16/2016 Care Plan: MAMMOGRAM SCREENING LOINC : 2 6347-5 Pending 12/16/2016 Patient Education: Patient Medication Summary Completed 10/07/2016 Care Plan: MRI LUMBAR SPINE W/O & W/DYE LOINC : 80590-6 Pending 10/07/2016 Visit Diagnosis Plan: Essential (primary) [...] : W57.XXXD 09/23/2016 Appointment: Jessica Gee WPtel: [address] [place] [address] 09/22 confirmed WORK IN 09/23/2016 Patient Education: Patient Medication Summary Completed 09/23/2016 Visit Plan: Tick panel at [facility] Increa se spironolactone to 2 po am (New Rx sent) Take B/P at home/work and also come to office next week for recheck Will await lab results before starting any antibiotic 09/03/2016 Appointment: Kaitlynn Mosley WPtel: [address] [place], [place] [phone] ACUTE ILLNESS 09/03/2016 Patient Education: Patient Medication Summary Completed 09/03/2016 Visit Diagnosis Plan: Low back pain Discussion: Celebr ex BID PT Continue stretches at home L/S xray Follow Up: 1 months ICD-9 : 724.2 ICD-10 : M54.5 07/08/2016 Appointment: Jessica Gee WPtel: [address] [place] [address] ACUTE ILLNESS 07/08/2016 Patient Education: Patient Medication Summary Completed 07/08/2016 Care Plan: X-RAY EXAM L-S SPINE 2/3 VWS LOINC : 28248-4 Pending 07/08/2016 Visit Plan: Supportive care. Rest, Fluid s, Tylenol/Motrin prn fever or bodyaches. Notify if worsening symptoms.New toothebrush in 5 days 06/21/2016 Visit NOS Plan: Plan Notes: Supportive care. Rest, Fluids... 06/21/2016 Visit Diagnosis Plan: Acute pharyngitis, unspecified D iscussion: Strep Negative Supportive Care May use zyrtec 10mg q HS ICD-9 : 462 ICD-10 : J02.9 06/21/2016 Appointment: Jessica Gee WPtel: [address] [place] [address] ACUTE ILLNESS 06/21/2016 Patient Education: Patient Medication Summary Completed 06/21/2016 Visit Plan: No pulseox last week to comp are to today, but she does sound diminished today Studies as above ordered Continue cefdinir until results received Increase albuterol treatments to q4-6hrs PRN Continue supportive care 02/23/2016 Appointment: Janiya Gregorio [address] [place] [address] ACUTE ILLNESS 02/23/2016 Patient Education: Patient Medication Summary Completed 02/23/2016 Care Plan: CHEST X-RAY 2VW FRONTAL&LATL LOINC : 76791-4 Pending 02/23/2016 Visit Plan: Saline nasal flushes prn. Ty lenol/Motrin prn headache. Notify if persists/symptoms worsening. 02/16/2016 Appointment: Jessica Gee WPtel: [address] [place] [address] ACUTE ILLNESS 02/16/2016 Patient Education: Patient Medication Summary Completed 02/16/2016 Visit Plan: Discussed labs Continue Topr ol at 200 mg PO daily Increase Aciphex to BID Notify if increase of Aciphex does not give relief. Repeat PT/INR in 2 weeks. 02/11/2015 Appointment: Suki Barahona WPtel: [address] [place] [address] 02/10 confirmed ~sl FOLLOW UP 02/11/2015 Patient Education: Patient Medication Summary Completed 02/11/2015 Patient Education: Patient Medication Summary Completed 02/06/2015 Care Plan: POC PROTIME/INR LOINC : 68305 -6 Pending 02/06/2015 Visit Plan: Increase Toprol XL 200 mg to one full tablet daily (is currently taking only 1/2 tablet) To for EKG today Monitor daily BP Notify of any changes- increased numbness, weakness, headache etc. 01/28/2015 Appointment: Suki Barahona WPtel: [address] [place] [address] ACUTE ILLNESS 01/28/2015 Patient Education: Patient Medication Summary Completed 01/28/2015 Visit Plan: ERx Amoxicillin and Flonase Nasal saline, humidified air Facial heat or cold packs for comfort Increase fluids/rest Discussed s/s of worsening, go to over weekend if these occur. 12/06/2014 Appointment: Kaitlynn Mosley WPtel: [address] [place] [address] ACUTE ILLNESS 12/06/2014 Patient Education: Patient Medication Summary Completed 12/06/2014 Appointment: Kaitlynn Mosley WPtel: [address] [place] [address] ACUTE ILLNESS 08/09/2014 Patient Education: Patient Medication Summary Completed 08/09/2014 Appointment: Suki Barahona WPtel: [address] [place] [address] ACUTE ILLNESS 06/24/2014 Patient Education: Patient Medication Summary Completed 06/24/2014 Appointment: Suki Barahona WPtel: [address] [place] [address] ACUTE ILLNESS 03/22/2014 Patient Education: Patient Medication Summary Completed 03/22/2014 Patient Education: [employer] - Antibi otics, Analgesics 18+, Oral Contraceptives F 18+ Completed 03/22/2014 Appointment: Suki Barahona WPtel: [address] [place] [address] [place] FOLLOW UP 03/05/2014 Patient Education: Patient Medication Summary Completed 03/05/2014 Visit Plan: Saline nasal flushes prn. Ty lenol/Motrin prn headache. Notify if persists/symptoms worsening. Restart flonase 01/16/2014 Appointment: Jessica Gee WPtel: [address] [place] [address] ACUTE ILLNESS 01/16/2014 Patient Education: Patient Medication Summary Completed 01/16/2014 Appointment: Jessica Gee WPtel: [address] [place] [address] 10/19/2013 Patient Education: Patient Medication Summary Completed 10/19/2013 Appointment: Jessica Gee WPtel: [address] [place] [address] 08/08 patient canceled appt and said will call back to angela evelin FOLLOW UP 08/09/2013 Visit Plan: Increase Coumadin to 6mg M-F and stay on 5mg Sat, Sun Add lipids to labs Check PT/INR in 3wks Continue metfromin at current dose and accuchecks 05/10/2013 Appointment: Jessica Gee WPtel: [address] [place] [address] 05/09 FOLLOW UP 05/10/2013 Patient Education: Patient Medication Summary Completed 05/10/2013 Visit Plan: Saline nasal flushes prn. Ty lenol/Motrin prn headache. Notify if persists/symptoms worsening. 04/17/2013 Appointment: Jessica Gee WPtel: [address] [place] [address] ACUTE ILLNESS 04/17/2013 Patient Education: Patient Medication Summary Completed 04/17/2013 Appointment: Suki Barahona WPtel: [address] [place] [address] FOLLOW UP 03/05/2013 Patient Education: Patient Medication Summary Completed 03/05/2013 Appointment: Jun Suki Edison WPtel: [address] [place] [address] FOLLOW UP 03/02/2013 Patient Education: Patient Medication Summary Completed 03/02/2013 Appointment: JunSuki Edison WPtel: [address] [place] [address] ACUTE ILLNESS 03/01/2013 Patient Education: Patient Medication Summary Completed 03/01/2013 Visit Plan: Continue metformin and accuc hecks Add fish oil 1gram daily Check HbA1C, CMP in 2mos then fwup 02/22/2013 Appointment: Jessica Gee WPtel: [address] [place] [address] 02/21 [facility] FOLLOW UP 02/22/2013 Patient Education: Patient Medication Summary Completed 02/22/2013 Visit Plan: Start Metformin Start Accuch ecks daily alternating times Will go for dilated eye exam once BS more stabilized Diabetic foot care discussed Diabetic diet info given 01/11/2013 Appointment: Jessica Gee WPtel: [address] [place] [address] FOLLOW UP 01/11/2013 Patient Education: Patient Medication Summary Completed 01/11/2013 Appointment: Kaitlynn Mosley WPtel: [address] [place] [address] ACUTE ILLNESS 11/03/2012 Patient Education: Patient Medication Summary Completed 11/03/2012 Appointment: Xiomara Rodriguez WPtel: [address] [place] [address] ACUTE ILLNESS 05/04/2012 Patient Education: Patient Medication Summary Completed 05/04/2012 Visit Plan: pt reports that she always g ets yeast infections. Discussed that the antifungal can cause problems/increased bleeding with Coumdin. Pt. will start with probiotics and only take the Diflucan if needed. Cefdinir. 10/11/2011 Appointment: Xiomara Rodriguez WPtel: [address] [place] [address] ACUTE ILLNESS 10/11/2011 Patient Education: Patient Medication Summary Completed 10/11/2011 Appointment: Xiomara Rodriguez WPtel: [address] [place] [address] FOLLOW UP 06/23/2011 Patient Education: Patient Medication Summary Completed 06/23/2011 Visit Plan: Will prescribe an antibiotic and diflucan. Pt. reports that she frequently gets yeast infection. Discussed that she will notify if any symptoms persist. Pt. reports that her relatives have recently been hospitalized with pneumonia. 06/14/2011 Appointment: Xiomara Rodriguez WPtel: [address] [place] [address] ACUTE ILLNESS 06/14/2011 Patient Education: Patient Medication Summary Completed 06/14/2011 Visit Plan: sample of veramyst. Cefuroxi me axetil. Pt. will focus on hydration and rest. Discussed comfort measures and monitoring for worsening symptoms. 12/02/2010 Appointment: Xiomara Rodriguez WPtel: [address] [place] [address] ACUTE ILLNESS 12/02/2010 Patient Education: Patient Medication Summary Completed 12/02/2010 Visit Plan: Change HCTZ to spironolacton e will start zocor in 1 mo BP med in 1mo 11/12/2010 Appointment: Jessica Gee WPtel: [address] [place] [address] FOLLOW UP 11/12/2010 Patient Education: Patient Medication Summary Completed 11/12/2010 Appointment: Jessica Gee WPtel: [address] [place], [place] [address] BP CHECK 10/26/2010 Patient Education: Patient Medication Summary Completed 10/26/2010 Visit Plan: Continue Toprol at bedtime A dd HCTZ in AM BP check in 2wks Fasting lab with next PT/INR 10/13/2010 Appointment: Jessica Gee WPtel: [address] [place], [place] [address] FOLLOW UP 10/13/2010 Patient Education: Patient Medication Summary Completed 10/13/2010 Visit Plan: Cont abx. Fwup with surgery as scheduled 06/24/2010 Appointment: Jessica Gee WPtel: [address] [place] [address] Follow Up 06/24/2010 Patient Education: Patient Medication Summary Completed 06/24/2010 Appointment: Jessica Gee WPtel: [address] [place] [address] Follow Up 06/22/2010 Visit Plan: pt is [...] to subside. 06/08/2010 Appointment: Xiomara Rodriguez WPtel: [address] [place] [address] ACUTE ILLNESS 06/08/2010 Patient Education: Patient Medication Summary Completed 06/08/2010 Appointment: Xiomara Rodriguez WPtel: [address] [place] [address] FOLLOW UP 06/01/2010 Appointment: Jessica Gee WPtel: [address] [place] [address] 05/29/2010 Patient Education: Patient Medication Summary Completed 05/29/2010 Appointment: Xiomara Rodriguez WPtel: [address] [place] [address] ACUTE ILLNESS 05/20/2010 Patient Education: Patient Medication Summary Completed 05/20/2010 Appointment: Jessica Gee WPtel: [address] [place] [address] BP CHECK 05/13/2010 Patient Education: Patient Medication Summary Completed 05/13/2010 Visit Plan: Increase Lisinopril hct to 2 0/12.5mg q AM Use atarax prn and routinely at bedtime and Medrol dose pack BP check in 3wks Pt defers stress test at this time 04/30/2010 Appointment: Jessica Gee WPtel: [address] [place], [place] [id number] ACUTE ILLNESS 04/30/2010 Patient Education: Patient Medication Summary Completed 04/30/2010 Appointment: Jessica Gee WPtel: [address] [place] [address] BP CHECK 02/27/2010 Patient Education: Patient Medication Summary Completed 02/27/2010 Visit Plan: Cont Toprol Add Altace 10mg QD Cont Wellbutrin Will likely add SSRI after BP stable BP check in 2wks 01/22/2010 Appointment: Jessica Gee WPtel: [address] [place], [place] [phone] ACUTE ILLNESS 01/22/2010 Patient Education: Patient Medication Summary Completed 01/22/2010 Referral: Rupa Raines WPtel: [address] [id number] [place] Referral Completed Referral: Neymar Alberts WPtel: [address] [facility] [place] Referral Initiated Instructions Comment . Tick panel at [facility] Increase spironolactone to 2 po am [...]
--- OUTSIDE RECORDS SUMMARY | 2019-09-10 03:08 | XMS REPORT | CCD ---
Author Author Nava Gee D.O. 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 Name Role Phone Jessica Gee D.O., PP Unavailable CCM Unavailable Summary Purpose Interface Exchange Insurance Providers Payer name Policy type / Coverage type Covered republican ID Effective Begin Date Effective End Date Blue Cross Blue Shield Blue Cross/Blue Shield [id number] Unknown Family History Family History data not found Social History Social History Element Codes Description Effective Dates Tobacco history SNOMED CT: 199537805 Never smoker 10/13/2010 Allergies, Adverse Reactions, Alerts Substance Reaction Codes Entered Date Inactivated Date Status * NO KNOWN DRUG ALLERGIES Unknown 01/22/2010 No Inactiv e Date Active Problems Condition Codes Effective Dates Condition Status Essential hypertension ICD-9: 401.9 ICD-10: I10 04/03/2019 Active Type 2 diabetes mellitus without complications ICD-9: 250.00 ICD-10: E11.9 05/10/2013 Active Gastro-esophageal reflux disease without esophagitis I [...] findings ICD-9: V70.0 ICD-10: Z00.00 12/16/2017 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 TAKE AN ADDITIONAL TABLET ON TUESDAY AND Tuesday05/02/2019 No Stop Date Active Coumadin 5 mg tablet RxNorm: 891173 TAKE 1 TABLET BY MOUTH ONCE DAILY 04/02/2019 05/02/2019 Inactive celecoxib 200 mg capsule RxNorm: 281771 TAKE 1 CAPSULE BY MOUTH TWICE DAILY 03/20/2019 06/17/2019 Active metformin ER 500 mg tablet,extended release 24 hr RxNorm: 86 0975 TAKE 1 TABLET BY MOUTH TWICE DAILY 03/19/2019 05/17/2019 Active pravastatin 40 mg tablet RxNorm: 308772 TAKE 1 TABLET BY MOUTH ONCE DAILY 03/19/2019 06/16/2019 Active Coumadin 5 mg tablet RxNorm: 067586 TAKE 1 TABLET BY MOUTH ONCE DAILY 02/28/2019 04/01/2019 Inactive warfarin 1 mg tablet RxNorm: 943482 TAKE 1 TABLET BY MO UT ONCE DAILY. TAKE AN ADDITIONAL TABLET ON TUESDAY AND Tuesday02/28/2019 05/01/2019 Inactiv e omeprazole 40 mg capsule,delayed release RxNorm: 806513 TAKE 1 CAPSULE BY MOUTH TWICE DAILY 02/19/2019 No Stop Date Active metformin ER 500 mg tablet,extended release 24 hr RxNorm: 86 0975 1 Tablet(s) PO BID 02/19/2019 03/18/2019 Inactive metformin ER 500 mg tablet,extended release 24 hr RxNorm: 86 0975 1 Tablet(s) PO BID 01/15/2019 02/13/2019 Inactive alprazolam 0.25 mg tablet RxNorm: 813094 1 Tablet(s) Oral prior to flight 01/03/2019 No Stop Date Active omeprazole 40 mg capsule,delayed release RxNorm: 483056 TAKE 1 CAPSULE BY MOUTH TWICE DAILY 12/20/2018 02/18/2019 Inactive metformin ER 500 mg tablet,extended release 24 hr RxNorm: 86 0975 1 Tablet(s) PO BID 12/11/2018 01/09/2019 Inactive pravastatin 40 mg tablet RxNorm: 545708 TAKE 1 TABLET BY MOUTH ONCE DAILY 12/11/2018 03/18/2019 Inactive Coumadin 5 mg tablet RxNorm: 749546 1 Tablet(s) PO QD 11/27/201809/2018 Inactive metformin ER 500 mg tablet,extended release 24 hr RxNorm: 86 0975 1 Tablet(s) PO BID 10/02/2018 11/30/2018 Inactive warfarin 1 mg tablet RxNorm: 651285 TAKE 1 TABLET BY [facility] ONCE DAILY. TAKE AN ADDITIONAL TABLET ON TUESDAY AND Tuesday10/02/2018 02/27/2019 Inactiv e Bactrim DS 800 mg-160 mg tablet RxNorm: 970475 1 Tablet(s) PO BID 0 09/27/2018 10/03/2018 Inactive warfarin 5 mg tablet RxNorm: 567856 1 Tablet(s) PO QD 09/27/201810/2018 Inactive Toprol XL 200 mg tablet,extended release RxNorm: 445744 1 Table t(s) PO QD 09/18/2018 03/16/2019 Inactive omeprazole 40 mg capsule,delayed release RxNorm: 177308 TAKE 1 CAPSULE BY MOUTH TWICE DAILY 09/11/2018 12/19/2018 Inactive Coumadin 5 mg tablet RxNorm: 440886 1 Tablet(s) PO QD 08/21/201811/2018 Inactive metformin ER 500 mg tablet,extended release 24 hr RxNorm: 86 0975 1 Tablet(s) PO BID 07/31/2018 09/28/2018 Inactive omeprazole 40 mg capsule,delayed release RxNorm: 093451 TAKE 1 CAPSULE BY MOUTH TWICE DAILY 06/27/2018 09/10/2018 Inactive metformin ER 500 mg tablet,extended release 24 hr RxNorm: 86 0975 Tablet(s) 1 Tablet(s) PO BID 06/27/2018 07/31/2018 Inactive Toprol XL 200 mg tablet,extended release RxNorm: 177341 1 Table t(s) PO QD 06/14/2018 09/17/2018 Inactive Coumadin 5 mg tablet RxNorm: 539971 1 Tablet(s) PO QD 06/14/201804/2018 Inactive metformin ER 500 mg tablet,extended release 24 hr RxNorm: 86 0975 Tablet(s) 1 Tablet(s) PO BID 05/22/2018 06/26/2018 Inactive Coumadin 5 mg tablet RxNorm: 856624 TAKE 1 TABLET BY MOUTH ONCE DAILY 05/11/2018 06/14/2018 Inactive Lovenox 40 mg/0.4 mL subcutaneous syringe RxNorm: 791055 40 Mil ligram(s) SQ QD 05/05/2018 09/26/2018 Inactive amitriptyline 25 mg tablet RxNorm: 414915 1 Tablet(s) PO QHS fo r sleep/HAs 04/24/2018 10/20/2018 Inactive [place] Ultra Test strips RxNorm: Test blood sugar sigrid y (Dx:E11.65) 04/24/2018 No Stop Date Active celecoxib 200 mg capsule RxNorm: 684047 1 Capsule(s) PO BID 019 10/20/2018 Inactive Celebrex 200 mg capsule RxNorm: 128406 TAKE 1 CAPSULE BY MOUTH ONCE DAILY 04/19/2018 04/23/2018 Inactive warfarin 1 mg tablet RxNorm: 969724 1 Tablet(s) PO QD a nd additional tablet on Tue & Th04/14/2018 10/01/2018 Inactive Toprol XL 200 mg tablet,extended release RxNorm: 894795 TAKE 1 TABLET BY MOUTH ONCE DAILY 04/11/2018 06/14/2018 Inactive metformin ER 500 mg tablet,extended release 24 hr RxNorm: 86 0975 Tablet(s) 1 Tablet(s) PO BID 03/17/2018 05/21/2018 Inactive Coumadin 5 mg tablet RxNorm: 354266 TAKE 1 TABLET BY MOUTH ONCE DAILY 03/15/2018 05/10/2018 Inactive Lovenox 40 mg/0.4 mL subcutaneous syringe RxNorm: 801394 40 Mil ligram(s) SQ QD 01/27/2018 04/11/2018 Inactive omeprazole 40 mg capsule,delayed release RxNorm: 585531 TAKE 1 CAPSULE BY MOUTH TWICE DAILY 01/23/2018 06/26/2018 Inactive pravastatin 40 mg tablet RxNorm: 423503 TAKE 1 TABLET BY MOUTH ONCE DAILY 01/23/2018 12/10/2018 Inactive metformin ER 500 mg tablet,extended release 24 hr RxNorm: 86 0975 Tablet(s) 1 Tablet(s) PO BID 01/16/2018 01/15/2018 Inactive Toprol XL 200 mg tablet,extended release RxNorm: 239024 TAKE 1 TABLET BY MOUTH ONCE DAILY 01/16/2018 04/10/2018 Inactive Coumadin 5 mg tablet RxNorm: 332120 TAKE 1 TABLET BY MOUTH ONCE DAILY 01/06/2018 03/14/2018 Inactive Celebrex 200 mg capsule RxNorm: 744950 1 Capsule(s) PO BID 12/28/1903/26/2018 Inactive metformin ER 500 mg tablet,extended release 24 hr RxNorm: 86 0975 1 Tablet(s) PO BID Needs APPT 12/21/2017 01/16/2018 Inactive omeprazole 40 mg capsule,delayed release RxNorm: 184705 TAKE 1 CAPSULE BY MOUTH TWICE DAILY 11/02/2017 01/22/2018 Inactive Celebrex 200 mg capsule RxNorm: 647216 1 Capsule(s) PO QD 11/01/2017 12/26/2017 Inactive Coumadin 5 mg tablet RxNorm: 524091 Tablet(s) TAKE ONE TABLET BY MOUTH ONCE DAILY. 10/31/2017 12/29/2017 Inactive warfarin 1 mg tablet RxNorm: 782301 1 Tablet(s) PO QD 10/31/201703/22 Inactive spironolactone 25 mg tablet RxNorm: 378669 TAKE TWO TAB LETS BY MOUTH IN THE MORNING 10/31/2017 04/23/2018 Inactive metformin ER 500 mg tablet,extended release 24 hr RxNorm: 86 0975 1 Tablet(s) PO BID Needs updated fasting lab 10/20/2017 12/21/2017 Inactive Medrol (Dale) 4 mg tablets in a dose pack RxNorm: 621478 Tablet(s) PO take as directed 10/12/2017 12/15/2017 Inactive Celebrex 200 mg capsule RxNorm: 195751 1 Capsule(s) PO QD 10/03/2017 10/02/2017 Inactive spironolactone 25 mg tablet RxNorm: 445201 TAKE TWO TAB LETS BY MOUTH IN THE MORNING 09/19/2017 10/30/2017 Inactive Zithromax Z-Dale 250 mg tablet RxNorm: 857833 Tablet(s) PO take as directed 09/16/2017 10/11/2017 Inactive Medrol (Dale) 4 mg tablets in a dose pack RxNorm: 887553 Tablet(s) take as directed PO 09/16/2017 10/11/2017 Inactive doxycycline hyclate 100 mg tablet RxNorm: 6386892 1 Tablet(s) PO BI D 09/16/2017 09/15/2017 Inactive doxycycline hyclate 100 mg tablet RxNorm: 0324627 1 Tablet(s) PO BI D 09/16/2017 09/25/2017 Inactive Tessalon Perles 100 mg capsule RxNorm: 089761 1 Capsule(s) PO T ID as needed 09/16/2017 12/15/2017 Inactive warfarin 1 mg tablet RxNorm: 949652 1 Tablet(s) PO QD 09/06/201710/19 Inactive Coumadin 5 mg tablet RxNorm: 427932 Tablet(s) TAKE ONE TABLET BY MOUTH ONCE DAILY. 09/06/2017 10/31/2017 Inactive Toprol XL 200 mg tablet,extended release RxNorm: 797959 1 Table t(s) PO QD 2017 01/02/2018 Inactive warfarin 1 mg tablet RxNorm: 728331 1 Tablet(s) PO QD DUE FOR L ABS AUGUST 12 08/29/2017 09/06/2017 Inactive Coumadin 5 mg tablet RxNorm: 811166 Tablet(s) TAKE ONE TABLET BY MOUTH ONCE DAILY. DUE FOR PT/INR AUGUST 12 08/29/2017 09/06/2017 Inactive Coumadin 5 mg tablet RxNorm: 290230 Tablet(s) TAKE ONE TABLET BY MOUTH ONCE DAILY. DUE FOR PT/INR AUGUST 12 08/01/2017 08/29/2017 Inactive warfarin 1 mg tablet RxNorm: 965814 1 Tablet(s) PO QD DUE FOR L ABS AUGUST 12 08/01/2017 08/29/2017 Inactive scopolamine 1 mg over 3 days transdermal patch RxNorm: 67051 2 1 TD take off in 72 hours. 08/01/2017 12/26/2017 Inactive pravastatin 40 mg tablet RxNorm: 077832 Tablet(s) TAKE ONE TABLET BY MOUTH ONCE DAILY 07/07/2017 01/02/2018 Inactive Coumadin 5 mg tablet RxNorm: 013367 Tablet(s) TAKE ONE TABLET BY MOUTH ONCE DAILY. DUE FOR PT/INR. 06/29/2017 08/01/2017 Inactive warfarin 1 mg tablet RxNorm: 906316 1 Tablet(s) PO QD 06/29/201707/19 Inactive Coumadin 5 mg tablet RxNorm: 338756 TAKE ONE TABLET BY MOUTH ONCE DAILY. DUE FOR PT/INR. 05/30/2017 06/29/2017 Inactive omeprazole 40 mg capsule,delayed release RxNorm: 086675 1 Capsu le(s) PO BID 05/30/2017 08/27/2017 Inactive Celebrex 200 mg capsule RxNorm: 639120 1 Capsule(s) PO QD 05/23/2017 10/03/2017 Inactive metformin ER 500 mg tablet,extended release 24 hr RxNorm: 86 0975 TAKE ONE TABLET BY MOUTH TWICE DAILY 05/20/2017 10/20/2017 Inactive Coumadin 5 mg tablet RxNorm: 236826 1 Tablet(s) PO QD due for PT/IN R 04/25/2017 05/24/2017 Inactive warfarin 1 mg tablet RxNorm: 423114 1 Tablet(s) PO QD due for l abs this week 03/16/2017 06/29/2017 Inactive omeprazole 40 mg capsule,delayed release RxNorm: 156654 1 Capsu le(s) PO BID 03/16/2017 05/30/2017 Inactive Celebrex 200 mg capsule RxNorm: 932588 1 Capsule(s) PO BID as n eeded for pain 03/16/2017 05/22/2017 Inactive Coumadin 5 mg tablet RxNorm: 963195 1 Tablet(s) PO QD due for PT/IN R 03/16/2017 04/14/2017 Inactive Celebrex 200 mg capsule RxNorm: 037236 1 Capsule(s) PO BID as n eeded for pain 02/09/2017 03/15/2017 Inactive Toprol XL 200 mg tablet,extended release RxNorm: 995941 1 Table t(s) PO QD 02/08/2017 2017 Inactive Celebrex 200 mg capsule RxNorm: 343036 1 Capsule(s) PO BID as n eeded for pain 01/14/2017 02/08/2017 Inactive omeprazole 40 mg capsule,delayed release RxNorm: 481918 1 Capsu le(s) PO BID 01/12/2017 03/16/2017 Inactive Coumadin 5 mg tablet RxNorm: 064399 1 Tablet(s) PO QD 12/15/201602/19 Inactive warfarin 1 mg tablet RxNorm: 247354 1 Tablet(s) PO QD 12/15/201602/19 Inactive metformin ER 500 mg tablet,extended release 24 hr RxNorm: 86 0975 Tablet(s) TAKE ONE TABLET BY MOUTH TWICE DAILY 11/29/2016 02/26/2017 Inactive omeprazole 40 mg capsule,delayed release RxNorm: 449497 1 Capsu le(s) PO BID 11/29/2016 12/28/2016 Inactive pravastatin 40 mg tablet RxNorm: 830107 Tablet(s) TAKE ONE TABLET BY MOUTH ONCE DAILY 11/19/2016 07/07/2017 Inactive omeprazole 40 mg capsule,delayed release RxNorm: 424641 1 Capsu le(s) PO BID 10/19/2016 10/18/2016 Inactive omeprazole 40 mg capsule,delayed release RxNorm: 087329 1 Capsu le(s) PO BID 10/19/2016 11/17/2016 Inactive pantoprazole 40 mg tablet,delayed release RxNorm: 275283 1 Tabl et(s) PO QD 09/30/2016 10/18/2016 Inactive pantoprazole 40 mg tablet,delayed release RxNorm: 126617 1 Tabl et(s) PO QD 09/30/2016 09/29/2016 Inactive Zofran ODT 4 mg disintegrating tablet RxNorm: 809801 1 Tablet(s) PO Q4H as needed for nausea 09/15/2016 01/02/2017 Inactive Coumadin 5 mg tablet RxNorm: 836854 1 Tablet(s) PO QD 09/14/201611/20 Inactive warfarin 1 mg tablet RxNorm: 064871 1 Tablet(s) PO QD 09/14/201611/20 Inactive spironolactone 25 mg tablet RxNorm: 186153 2 Tablet(s) PO QAM 09/0301/02/2017 Inactive Wellbutrin XL 300 mg 24 hr tablet, extended release RxNorm: 493428 TAKE ONE TABLET BY MOUTH ONCE DAILY 08/26/2016 12/26/2017 Inactive Toprol XL 200 mg tablet,extended release RxNorm: 638784 1 Table t(s) PO QD 07/28/2016 02/08/2017 Inactive metformin ER 500 mg tablet,extended release 24 hr RxNorm: 86 0975 Tablet(s) TAKE ONE TABLET BY MOUTH TWICE DAILY 07/15/2016 11/29/2016 Inactive cyclobenzaprine 5 mg tablet RxNorm: 740910 1 Tablet(s) PO QHS f or spasm 07/08/2016 08/06/2016 Inactive Celebrex 200 mg capsule RxNorm: 1 Capsule(s) PO BID 07/08/2016 Inactive spironolactone 25 mg tablet RxNorm: 742333 1 Tablet(s) PO QAM 07/0609/02/2016 Inactive Wellbutrin XL 300 mg 24 hr tablet, extended release RxNorm: 867203 TAKE ONE TABLET BY MOUTH ONCE DAILY 06/15/2016 07/14/2016 Inactive Coumadin 5 mg tablet RxNorm: 891320 1 Tablet(s) PO QD 06/08/201608/20 Inactive warfarin 1 mg tablet RxNorm: 120344 1 Tablet(s) PO QD 06/08/201608/20 Inactive Toprol XL 200 mg tablet,extended release RxNorm: 720849 TAKE ONE TABLET BY MOUTH ONCE DAILY 04/26/2016 07/28/2016 Inactive pravastatin 40 mg tablet RxNorm: 475327 TAKE ONE TABLET BY MOUT H ONCE DAILY 04/19/2016 10/15/2016 Inactive Coumadin 5 mg tablet RxNorm: 588886 1 Tablet(s) PO QD 03/09/201605/19 Inactive warfarin 1 mg tablet RxNorm: 585877 1 Tablet(s) PO QD 03/09/201605/19 Inactive metformin ER 500 mg tablet,extended release 24 hr RxNorm: 86 0975 TAKE ONE TABLET BY MOUTH TWICE DAILY 02/25/2016 07/15/2016 Inactive spironolactone 25 mg tablet RxNorm: 686433 TAKE ONE TAB LET BY MOUTH ONCE DAILY IN THE MORNING 02/25/2016 07/06/2016 Inactive prednisone 20 mg tablet RxNorm: 230979 1 Tablet(s) PO QAM 02/16/2016 02/20/2016 Inactive cefdinir 300 mg capsule RxNorm: 120053 2 Capsule(s) PO QD 02/16/2016 02/25/2016 Inactive Toprol XL 200 mg tablet,extended release RxNorm: 404093 TAKE ONE TABLET BY MOUTH ONCE DAILY 01/26/2016 04/24/2016 Inactive Aciphex 20 mg tablet,delayed release RxNorm: 101021 1 Tablet(s) PO BID 12/24/2015 09/29/2016 Inactive Omeprazole and Pepci d have not helped. Coumadin 5 mg tablet RxNorm: 955542 1 Tablet(s) PO QD 12/10/201502/19 Inactive Coumadin 5 mg tablet RxNorm: 611136 1 Tablet(s) PO QD 12/08/201511/20 Inactive Toprol XL 200 mg tablet,extended release RxNorm: 025994 TAKE ONE TABLET BY MOUTH ONCE DAILY 11/20/2015 01/18/2016 Inactive warfarin 1 mg tablet RxNorm: 153118 1 Tablet(s) PO QD 11/03/201502/19 Inactive pravastatin 40 mg tablet RxNorm: 816316 Tablet(s) TAKE ONE TABLET BY MOUTH ONCE DAILY 10/20/2015 01/17/2016 Inactive pravastatin 40 mg tablet RxNorm: 462054 TAKE ONE TABLET BY MOUT H ONCE DAILY 10/20/2015 10/19/2015 Inactive metformin ER 500 mg tablet,extended release 24 hr RxNorm: 86 0975 TAKE ONE TABLET BY MOUTH TWICE DAILY 10/03/2015 12/31/2015 Inactive Toprol XL 200 mg tablet,extended release RxNorm: 076495 TAKE ONE TABLET BY MOUTH ONCE DAILY 09/17/2015 11/15/2015 Inactive Coumadin 5 mg tablet RxNorm: 287820 1 Tablet(s) PO QD 09/02/201511/19 Inactive Wellbutrin XL 300 mg 24 hr tablet, extended release RxNorm: 255046 TAKE ONE TABLET BY MOUTH ONCE DAILY 08/01/2015 10/29/2015 Inactive Pepcid 20 mg tablet RxNorm: 623887 1 Tablet(s) PO BID as needed 05/24/2017 Inactive warfarin 1 mg tablet RxNorm: 475571 TAKE ONE TABLET BY MOUTH ON CE DAILY 07/08/2015 11/03/2015 Inactive pravastatin 40 mg tablet RxNorm: 595350 1 Tablet(s) PO QD 07/08/2015 10/05/2015 Inactive spironolactone 25 mg tablet RxNorm: 284895 TAKE ONE TAB LET BY MOUTH ONCE DAILY IN THE MORNING 06/13/2015 09/10/2015 Inactive Coumadin 5 mg tablet RxNorm: 367566 1 Tablet(s) PO QD 06/05/201508/19 Inactive Wellbutrin XL 300 mg 24 hr tablet, extended release RxNorm: 432096 TAKE ONE TABLET BY MOUTH ONCE DAILY 05/16/2015 09/26/2018 Inactive Wellbutrin XL 300 mg 24 hr tablet, extended release RxNorm: 174160 TAKE ONE TABLET BY MOUTH ONCE DAILY 05/16/2015 06/14/2015 Inactive metformin ER 500 mg tablet,extended release 24 hr RxNorm: 86 0975 TAKE ONE TABLET BY MOUTH TWICE DAILY 05/16/2015 08/13/2015 Inactive pravastatin 40 mg tablet RxNorm: 559549 1 Tablet(s) PO QD 04/10/2015 07/07/2015 Inactive Aciphex 20 mg tablet,delayed release RxNorm: 161874 1 Tablet(s) PO BID 03/07/2015 09/02/2015 Inactive Omeprazole and Pepci d have not helped. Toprol XL 200 mg tablet,extended release RxNorm: 392036 1 Table t(s) PO QD 03/05/2015 08/31/2015 Inactive Aciphex 20 mg tablet,delayed release RxNorm: 800599 1 Tablet(s) PO QD 03/04/2015 03/06/2015 Inactive Omeprazole and Pepci d have not helped. Coumadin 5 mg tablet RxNorm: 822934 1 Tablet(s) PO QD 02/28/201511/2015 Inactive Aciphex 20 mg tablet,delayed release RxNorm: 227046 1 Tablet(s) PO BID 02/11/2015 03/03/2015 Inactive Omeprazole and Pepci d have not helped. metformin ER 500 mg tablet,extended release 24 hr RxNorm: 86 0975 1 Tablet(s) PO BID 01/10/2015 04/09/2015 Inactive pravastatin 40 mg tablet RxNorm: 952073 1 Tablet(s) PO QD 01/06/2015 04/05/2015 Inactive Wellbutrin XL 300 mg 24 hr tablet, extended release RxNorm: 193917 TAKE ONE TABLET BY MOUTH ONCE DAILY 12/19/2014 02/16/2015 Inactive amoxicillin 500 mg capsule RxNorm: 516852 2 Capsule(s) PO BID 12/0612/15/2014 Inactive Flonase 50 mcg/actuation nasal spray,suspension RxNorm: 8963 23 2 [place] each nostril NASAL QD 12/06/2014 03/05/2015 Inactive Coumadin 5 mg tablet RxNorm: 392349 1 Tablet(s) PO QD 11/28/201410/2014 Inactive spironolactone 25 mg tablet RxNorm: 517204 1 Tablet(s) PO QAM 11/2602/23/2015 Inactive Coumadin 5 mg tablet RxNorm: 542970 1 Tablet(s) PO QD 1 Tablet(s) PO QD- NEED TO CHECK LABS 10/30/2014 11/28/2014 Inactive warfarin 1 mg tablet RxNorm: 319768 1 Tablet(s) PO QD 10/30/201409/2015 Inactive Aciphex 20 mg tablet,delayed release RxNorm: 882206 1 Tablet(s) PO QD 10/02/2014 02/10/2015 Inactive Omeprazole and Pepci d have not helped. Coumadin 5 mg tablet RxNorm: 994684 1 Tablet(s) PO QD 1 Tablet(s) PO QD- NEED TO CHECK LABS 09/30/2014 10/30/2014 Inactive pravastatin 40 mg tablet RxNorm: 716801 1 Tablet(s) PO QD 09/25/2014 01/06/2015 Inactive warfarin 1 mg tablet RxNorm: 195210 1 Tablet(s) PO QD T [place] ONE TABLET BY MOUTH DIRECTED ON MON AND THUR 08/28/2014 10/29/2014 Inactive metformin ER 500 mg tablet,extended release 24 hr RxNorm: 86 0975 1 Tablet(s) PO BID 08/28/2014 01/10/2015 Inactive amoxicillin 875 mg tablet RxNorm: 174429 1 Tablet(s) PO BID 015 08/18/2014 Inactive Toprol XL 200 mg tablet,extended release RxNorm: 023879 TAKE ONE TABLET BY MOUTH ONCE DAILY 07/22/2014 03/05/2015 Inactive Coumadin 5 mg tablet RxNorm: 830343 1 Tablet(s) PO QD 07/01/201409/18 Inactive amoxicillin 875 mg tablet RxNorm: 007760 1 Tablet(s) PO BID 015 06/30/2014 Inactive pravastatin 40 mg tablet RxNorm: 778303 1 Tablet(s) PO QD needs fasting labs 06/19/2014 09/25/2014 Inactive Coumadin 5 mg tablet RxNorm: 726827 1 Tablet(s) PO QD 1 Tablet(s) PO QD TAKE ONE TABLET BY MOUTH ONCE DAILY-need labs 05/28/2014 07/01/2014 Inactive warfarin 1 mg tablet RxNorm: 118174 1 Tablet(s) PO As Directed 05/1908/28/2014 Inactive pravastatin 40 mg tablet RxNorm: 753052 1 Tablet(s) PO QD needs fasting labs 05/14/2014 06/19/2014 Inactive metformin ER 500 mg tablet,extended release 24 hr RxNorm: 86 0975 1 Tablet(s) PO BID 04/25/2014 08/28/2014 Inactive spironolactone 25 mg tablet RxNorm: 304839 1 Tablet(s) PO QAM 04/2511/26/2014 Inactive Coumadin 5 mg tablet RxNorm: 307750 1 Tablet(s) PO QD 1 Tablet(s) PO QD TAKE ONE TABLET BY MOUTH ONCE DAILY 04/23/2014 05/28/2014 Inactive Coumadin 5 mg tablet RxNorm: 028414 1 Tablet(s) PO QD 1 Tablet(s) PO QD TAKE ONE TABLET BY MOUTH ONCE DAILY 03/22/2014 04/20/2014 Inactive Tessalon Perles 100 mg capsule RxNorm: 470558 1 Capsule(s) PO TID 0 03/22/2014 03/28/2014 Inactive cefdinir 300 mg capsule RxNorm: 977138 2 Capsule(s) PO QD 03/22/2014 03/31/2014 Inactive Medrol (Dale) 4 mg tablets in a dose pack RxNorm: 161018 Tablet(s) PO as directed 03/05/2014 08/08/2014 Inactive Coumadin 5 mg tablet RxNorm: 731748 1 Tablet(s) PO QD 1 Tablet(s) PO QD TAKE ONE TABLET BY MOUTH ONCE DAILY 02/19/2014 03/20/2014 Inactive pravastatin 40 mg tablet RxNorm: 978291 1 Tablet(s) PO QD 02/04/2014 05/14/2014 Inactive Coumadin 5 mg tablet RxNorm: 265510 1 Tablet(s) PO QD T [place] ONE TABLET BY MOUTH ONCE DAILY 01/21/2014 02/19/2014 Inactive Medrol (Dale) 4 mg tablets in a dose pack RxNorm: 555365 Tablet(s) PO as directed 01/18/2014 03/04/2014 Inactive cefdinir 300 mg capsule RxNorm: 634819 2 Capsule(s) PO QD 01/16/2014 01/25/2014 Inactive metformin ER 500 mg tablet,extended release 24 hr RxNorm: 86 0975 1 Tablet(s) PO BID 12/17/2013 04/25/2014 Inactive Wellbutrin SR 150 mg tablet,sustained-release RxNorm: 587381 1 Tablet(s) PO BID 11/30/2013 02/27/2014 Inactive spironolactone 25 mg tablet RxNorm: 040919 1 Tablet(s) PO QAM 10/2204/25/2014 Inactive Macrobid 100 mg capsule RxNorm: 902614 1 Capsule(s) PO BID 10/20/19 14 10/25/2013 Inactive Macrobid 100 mg capsule RxNorm: 947945 1 Capsule(s) PO BID 10/20/19 14 10/18/2013 Inactive Toprol XL 100 mg tablet,extended release RxNorm: 902407 1 Table t(s) PO QD 10/15/2013 01/15/2014 Inactive Toprol XL 200 mg tablet,extended release RxNorm: 634045 1 Table t(s) PO QD 10/02/2013 07/22/2014 Inactive Wellbutrin XL 300 mg 24 hr tablet, extended release RxNorm: 495107 1 Tablet(s) PO QD 09/28/2013 12/19/2014 Inactive Aciphex 20 mg tablet,delayed release RxNorm: 289927 1 Tablet(s) PO QD 08/29/2013 10/02/2014 Inactive Omeprazole and Pepci d have not helped. Coumadin 5 mg tablet RxNorm: 078926 1 Tablet(s) PO QD 08/14/201307/20 Inactive Coumadin 5 mg tablet RxNorm: 845494 1 Tablet(s) PO QD 08/14/201305/2013 Inactive pravastatin 40 mg tablet RxNorm: 115085 1 Tablet(s) PO QD 07/24/2013 02/04/2014 Inactive warfarin 1 mg tablet RxNorm: 580050 1 Tablet(s) PO QD T [place] ONE TABLET BY MOUTH DIRECTED ON MON AND THUR 07/09/2013 05/28/2014 Inactive warfarin 5 mg tablet RxNorm: 909768 1 Tablet(s) PO QD T [place] ONE TABLET BY MOUTH EVERY DAY 06/08/2013 07/07/2013 Inactive spironolactone 25 mg tablet RxNorm: 732717 1 Tablet(s) PO QAM 05/3010/15/2013 Inactive clindamycin 300 mg capsule RxNorm: 510652 2 Capsule(s) PO TID 04/1704/30/2013 Inactive warfarin 5 mg tablet RxNorm: 548558 1 Tablet(s) PO QD 03/12/201305/20 Inactive azithromycin 250 mg tablet RxNorm: 120965 2 Tablet(s) PO QD 013 03/07/2013 Inactive metformin ER 500 mg tablet,extended release 24 hr RxNorm: 86 0975 1 Tablet(s) PO BID 02/22/2013 12/17/2013 Inactive spironolactone 25 mg tablet RxNorm: 612444 1 Tablet(s) PO QAM 01/2205/30/2013 Inactive metformin ER 500 mg tablet,extended release 24 hr RxNorm: 86 0977 1 Tablet(s) PO BID 01/11/2013 02/21/2013 Inactive pravastatin 40 mg tablet RxNorm: 538706 1 Tablet(s) PO QD 01/11/2013 07/24/2013 Inactive warfarin 5 mg tablet RxNorm: 250090 1 Tablet(s) PO QD 01/04/201302/19 Inactive warfarin 1 mg tablet RxNorm: 196667 Tablet(s) PO TAKE O NE TABLET BY MOUTH DIRECTED ON MON AND THUR 12/14/2012 07/08/2013 Inactive scopolamine 1.5 mg 72 hr Transderm Patch RxNorm: 744934 TD Apply 1 patch behind ear every 72 hours, replace after 3 days. 11/08/2012 01/15/2014 Inacti ve Pepcid 20 mg tablet RxNorm: 512760 1 Tablet(s) PO BID as needed 01/31/2013 Inactive Famvir 500 mg tablet RxNorm: 244626 1 Tablet(s) PO Q8H 11/03/2012 Inactive Aciphex 20 mg tablet,delayed release RxNorm: 491461 1 Tablet(s) PO QD 11/03/2012 05/01/2013 Inactive Omeprazole and Pepci d have not helped. gabapentin 300 mg capsule RxNorm: 456592 Capsule(s) PO TID 11/04/19 13 01/15/2014 Inactive warfarin 5 mg tablet RxNorm: 888642 1 Tablet(s) PO QD 11/02/201212/19 Inactive Wellbutrin XL 300 mg 24 hr tablet, extended release RxNorm: 003021 1 Tablet(s) PO QD 10/17/2012 04/30/2013 Inactive pravastatin 40 mg tablet RxNorm: 690858 Tablet(s) PO TA KE ONE TABLET BY MOUTH EVERY DAY. NEED FASTING LABS 09/18/2012 01/10/2013 Inactive Toprol XL 200 mg tablet,extended release RxNorm: 202195 Tablet(s) PO TAKE ONE TABLET BY MOUTH EVERY DAY 09/08/2012 10/01/2013 Inactive warfarin 5 mg tablet RxNorm: 200275 1 Tablet(s) PO QD 08/31/201210/19 Inactive pravastatin 40 mg tablet RxNorm: 891819 1 Tablet(s) PO QD Needs fasting labs 08/18/2012 09/16/2012 Inactive TAKE ONE TABLET BY M OUTH EVERY DAY warfarin 1 mg tablet RxNorm: 012983 1 Tablet(s) PO As directed on Mon and Thurs 08/11/2012 12/13/2012 Inactive spironolactone 25 mg tablet RxNorm: 444781 1 Tablet(s) PO QAM 07/1110/08/2012 Inactive warfarin 5 mg tablet RxNorm: 655855 1 Tablet(s) PO QD 07/03/201208/19 Inactive Diflucan 100 mg tablet RxNorm: 688029 1 Tablet(s) PO QD 05/04/2012 Inactive Cipro 500 mg tablet RxNorm: 661987 1 Tablet(s) PO BID 05/04/201204/22 Inactive Aciphex 20 mg tablet,delayed release RxNorm: 788373 1 Tablet(s) PO QD 05/04/2012 07/02/2012 Inactive Omeprazole and Pepci d have not helped. warfarin 5 mg tablet RxNorm: 872669 1 Tablet(s) PO QD 05/02/201206/19 Inactive warfarin 5 mg tablet RxNorm: 678284 1 Tablet(s) PO QD 03/02/201204/21 Inactive Toprol XL 200 mg tablet,extended release RxNorm: 800971 1 Table t(s) PO QD 03/02/2012 05/30/2012 Inactive spironolactone 25 mg tablet RxNorm: 517866 1 Tablet(s) PO QAM 02/0707/11/2012 Inactive pravastatin 40 mg tablet RxNorm: 829540 Tablet(s) PO 01/31/201208/17 Inactive TAKE ONE TABLET BY MOUTH EVERY DAY pravastatin 40 mg tablet RxNorm: 370206 1 Tablet(s) PO QD 01/31/2012 08/18/2012 Inactive omeprazole 40 mg capsule,delayed release RxNorm: 023376 1 Capsule(s) PO QD for stomach 01/11/2012 11/02/2012 Inactive for stomach warfarin 5 mg tablet RxNorm: 049421 1 Tablet(s) PO QD 01/03/201202/18 Inactive warfarin 5 mg tablet RxNorm: 457211 1 Tablet(s) PO QD 12/03/201112/19 Inactive pravastatin 40 mg tablet RxNorm: 445892 1 Tablet(s) PO QD 11/25/2011 01/23/2012 Inactive cefdinir 300 mg Cap RxNorm: 984287 1 Capsule(s) PO BID 10/11/201103/2011 Inactive Culturelle 10 billion cell Cap RxNorm: 755937 1 Capsule(s) PO BID 0 10/11/2011 11/09/2011 Inactive Diflucan 100 mg Tab RxNorm: 216766 1 Tablet(s) PO QD 10/11/201110/19 Inactive Wellbutrin XL 300 mg 24 hr tablet, extended release RxNorm: 768205 1 Tablet(s) PO QD 09/14/2011 10/17/2012 Inactive pravastatin 40 mg tablet RxNorm: 685742 1 Tablet(s) PO QD 08/25/2011 11/25/2011 Inactive Coumadin 5 mg tablet RxNorm: 610842 Tablet(s) PO Take as direct ed by doctor. 07/07/2011 12/03/2011 Inactive Singulair 10 mg Tab RxNorm: 366696 1 Tablet(s) PO QD al lergy medication. (Please try to be consistent in dosing) 06/23/2011 01/15/2014 Inactive Diflucan 100 mg Tab RxNorm: 154619 1 Tablet(s) PO QD 06/14/201107/02 Inactive cefdinir 300 mg Cap RxNorm: 333164 1 Capsule(s) PO BID 06/14/201106/2011 Inactive pravastatin 40 mg Tab RxNorm: 289121 1 Tablet(s) PO QD 05/25/201108/2011 Inactive warfarin 5 mg Tab RxNorm: 843207 Tablet(s) PO 05/25/2011 10/18/2011 In active TAKE ONE TABLET BY MOUTH EVERY DAY Toprol XL 200 mg tablet,extended release RxNorm: 998362 1 Table t(s) PO QD 03/05/2011 06/02/2011 Inactive spironolactone 25 mg tablet RxNorm: 229181 1 Tablet(s) PO QAM 02/2402/08/2012 Inactive omeprazole 40 mg capsule,delayed release RxNorm: 632630 1 Capsule(s) PO QD for stomach 01/06/2011 01/11/2012 Inactive for stomach warfarin 5 mg Tab RxNorm: 214982 1 Tablet(s) PO QD 12/17/2010 011 Inactive warfarin 5 mg Tab RxNorm: 775938 1 Tablet(s) PO QD 11/18/2010 011 Inactive spironolactone 25 mg Tab RxNorm: 852926 1 Tablet(s) PO QAM 0802/24/2011 Inactive Coumadin 6 mg Tab RxNorm: 942854 1 Tablet(s) PO QD 10/28/2010 011 Inactive May have generic hydrochlorothiazide 25 mg Tab RxNorm: 674681 1 Tablet(s) PO QAM 11/11/2010 Inactive Wellbutrin XL 300 mg 24 hr Tab RxNorm: 192751 1 Tablet(s) PO QD 09/14/2011 Inactive Septra DS 800 mg-160 mg Tab RxNorm: 839909 1 Tablet(s) PO BID 06/0806/17/2010 Inactive Pyridium 100 mg Tab RxNorm: 0820672 1 Tablet(s) PO TID 06/08/2010 Inactive Wellbutrin XL 300 mg 24 hr Tab RxNorm: 498450 1 Tablet(s) PO QD 05/201007/15/2010 Inactive hydroxyzine 25 mg Tab RxNorm: 060985 1 Tablet(s) PO QID prn itching--take routinely at bedtime. (pt. may not refil at this time but later) 05/20/2010 10/10/2011 Inactive Zyrtec 10 mg Tab RxNorm: 0418280 1 Tablet(s) PO BID 05/20/20102010 Inactive Coumadin 1 mg Tab RxNorm: 793622 1 Tablet(s) PO 6mg M-F, 7mg S-S 11/16/2010 Inactive hydroxyzine 25 mg Tab RxNorm: 860843 1 Tablet(s) PO QID prn itching--take routinely at bedtime 04/30/2010 05/19/2010 Inactive Toprol XL 200 mg 24 hr Tab RxNorm: 174212 1 Tablet(s) PO QD 011 06/23/2010 Inactive lisinopril-hydrochlorothiazide 10 mg-12.5 mg Tab RxNorm: 197 885 1 Tablet(s) PO QD 04/20/2010 04/29/2010 Inactive omeprazole 40 mg Cap, Delayed Release RxNorm: 122840 1 Capsule(s) PO QD for stomach 04/20/2010 08/17/2010 Inactive lisinopril-hydrochlorothiazide 10 mg-12.5 mg Tab RxNorm: 197 885 Tablet(s) PO 1QDAM - TAKE ONE TABLET BY MOUTH EVERY DAY IN THE MORNING 03/09/2010 Inactive lisinopril-hydrochlorothiazide 10 mg-12.5 mg Tab RxNorm: 197 885 1 Tablet(s) PO QD 02/27/2010 04/20/2010 Inactive Wellbutrin XL 300 mg 24 hr Tab RxNorm: 754028 1 Tablet(s) PO QD 05/21/2010 Inactive lisinopril-hydrochlorothiazide 10 mg-12.5 mg Tab RxNorm: 197 885 1 Tablet(s) PO QD 01/28/2010 02/26/2010 Inactive omeprazole 40 mg Cap, Delayed Release RxNorm: 986042 1 Capsule(s) PO QD for stomach 01/22/2010 04/20/2010 Inactive Altace 10 mg Cap RxNorm: 362442 1 Capsule(s) PO QD for BP 01/22/2010 03/22/2010 Inactive Coumadin 6 mg Tab RxNorm: 667513 1 Tablet(s) PO QD May have generic 12/03/2009 05/01/2010 Inactive Coumadin 6 mg Tab RxNorm: 688933 1 Tablet(s) PO 12/01/2009 12/02/2009 Inactive Coumadin 1 mg Tab RxNorm: 474587 1 Tablet(s) PO QD 11/28/2009 010 Inactive Coumadin 1 mg Tab RxNorm: 253572 1 Tablet(s) PO QD 07/02/2009 010 Inactive lisinopril-hydrochlorothiazide 20 mg-12.5 mg Tab RxNorm: 197 886 2 Tablet(s) PO QAM No Start Date 10/12/2010 Inactive Zofran ODT 4 mg disintegrating tablet RxNorm: 464950 1 Tablet(s) PO Q6H as needed for nausea No Start Date 09/14/2016 Inactive Wellbutrin XL 300 mg 24 hr Tab RxNorm: 967281 1 Tablet(s) PO QD No Start Date 02/02/2010 Inactive alprazolam 0.25 mg tablet RxNorm: 544198 1 Tablet(s) PO prior t o flight No Start Date 05/24/2017 Inactive hydrocodone-acetaminophen 5 mg-500 mg Tab RxNorm: 390738 1-2 Tablet(s) PO Q4H as needed for pain No Start Date 12/02/2010 Inactive Toprol XL 100 mg 24 hr Tab RxNorm: 602109 1 Tablet(s) PO QD No Star t Date 10/14/2013 Inactive Celebrex 200 mg capsule RxNorm: 601947 1 Capsule(s) PO QD No Start Date 05/22/2017 Inactive Flexeril 10 mg tablet RxNorm: 854361 1 Tablet(s) PO TID No Start Da te 04/02/2019 Inactive scopolamine 1 mg over 3 days transdermal patch RxNorm: 71601 2 1 TD take off in 72 hours. No Start Date 07/31/2017 Inactive [employer] HealthTouch Ultra Test strips RxNorm: Test blood sugar daily No S tart Date 04/23/2018 Inactive Medrol (Dale) 4 mg tablets in a dose pack RxNorm: 044881 Tablet(s) PO As directed No Start Date 01/15/2014 Inactive Coumadin 5 mg Tab RxNorm: 685000 1 Tablet(s) PO QD No Start Date 06/19 Inactive Pepcid 40 mg Tab RxNorm: 685846 1 Tablet(s) PO QD No Start Date 06/23 Inactive prednisone 10 mg Tab RxNorm: 046504 1 Tablet(s) PO BID No Start Date 06/23/2010 Inactive spironolactone 25 mg tablet RxNorm: 054071 1 Tablet(s) PO QAM No St art Date 09/26/2018 Inactive scopolamine 1.5 mg 72 hr Transderm Patch RxNorm: 605439 TD Apply 1 patch behind ear every 72 hours, replace after 3 days. No Start Date 11/07/2012 Inacti ve azithromycin 250 mg Tab RxNorm: 156631 Tablet(s) PO 2 t abs on day one and one tab on days 2-5. (antibiotic) No Start Date 10/10/2011 Inactive Medrol (Dale) 4 mg Tabs in a Dose Pack RxNorm: 206751 1 Tablet(s) PO as directed. (steroid pack) No Start Date 10/10/2011 Inactive Lovenox 40 mg/0.4 mL subcutaneous syringe RxNorm: 663286 40 Mil ligram(s) SQ QD No Start Date 05/04/2018 Inactive Celebrex 200 mg capsule RxNorm: 837938 1 Capsule(s) PO BID as n eeded for pain No Start Date 01/13/2017 Inactive warfarin 1 mg tablet RxNorm: 284234 1 Tablet(s) PO As directed on Tue and No Start Date 08/10/2012 Inactive cefuroxime axetil 500 mg Tab RxNorm: 705862 1 Tablet(s) PO BID No S tart Date 06/13/2011 Inactive Lovenox 40 mg/0.4 mL subcutaneous syringe RxNorm: 674470 40 Mil ligram(s) SQ QD No Start Date 01/26/2018 Inactive Coumadin 5 mg tablet RxNorm: 028306 1 Tablet(s) PO QD No Start Date 0 08/13/2013 Inactive Medrol (Dale) 4 mg tablets in a dose pack RxNorm: 243043 Tablet(s) PO as directed No Start Date 01/17/2014 Inactive Coumadin 6 mg tablet RxNorm: 625802 1 Tablet(s) PO QD No Start Date 0 06/20/2016 Inactive warfarin 5 mg tablet RxNorm: 371228 1 Tablet(s) PO QD No Start Date 0 12/02/2011 Inactive Medrol (Dale) 4 mg Tabs in a Dose Pack RxNorm: 326056 Tablet(s) PO as directed No Start Date 06/23/2010 Inactive Flonase 50 mcg/actuation nasal spray,suspension RxNorm: 8963 23 2 [place] NASAL BID No Start Date 12/05/2014 Inactive Pepcid 20 mg tablet RxNorm: 765674 1 Tablet(s) PO BID as needed No Start Date 11/02/2012 Inactive spironolactone 25 mg tablet RxNorm: 936264 1 Tablet(s) PO QAM No St art Date 04/02/2019 Inactive Medication Administered No Medication Administered data Immunizations No Immunization data Results Observation Observation Code Item Item Code Result Date S ervice Location MICROALBUMIN URINE RANDOM 51223 CREAT MG/D 139 MG/DL Unknown MICROALBUMIN URINE RANDOM 38120 CRE/100 1.39 G/L 12/20 Unknown Procedures Procedure Codes Date URINALYSIS NONAUTO W/O SCOPE CPT-4: 85184 09/27/2018 URINE CULTURE/ COLONY COUNT CPT-4: 81092 09/27/2018 URINALYSIS NONAUTO W/O SCOPE CPT-4: 01196 10/13/2017 URINE CULTURE/ COLONY COUNT CPT-4: 14724 10/13/2017 STREP A ASSAY W/OPTIC CPT-4: 27724 06/21/2016 STREP A ASSAY W/OPTIC CPT-4: 66047 06/24/2014 THER/PROPH/DIAG INJ SC/IM CPT-4: 90178 03/22/2014 METHYLPREDNISOLONE 40 MG INJ CPT-4: J1030 03/22/2014 TRIAMCINOLONE ACET INJ NOS CPT-4: J3301 03/22/2014 URINALYSIS NONAUTO W/O SCOPE CPT-4: 73987 10/19/2013 URINE CULTURE/ COLONY COUNT CPT-4: 18591 10/19/2013 CEFTRIAXONE SODIUM INJECTION CPT-4: J0696 03/02/2013 THER/PROPH/DIAG INJ SC/IM CPT-4: 67254 03/02/2013 CEFTRIAXONE SODIUM INJECTION CPT-4: J0696 03/01/2013 THER/PROPH/DIAG INJ SC/IM CPT-4: 16849 03/01/2013 THER/PROPH/DIAG INJ SC/IM CPT-4: 39673 03/01/2013 METHYLPREDNISOLONE 40 MG INJ CPT-4: J1030 03/01/2013 TRIAMCINOLONE ACET INJ NOS CPT-4: J3301 03/01/2013 MICROALBUMIN QUANTITATIVE CPT-4: 61021 01/11/2013 URINE CULTURE/ COLONY COUNT CPT-4: 04772 05/04/2012 URINALYSIS NONAUTO W/O SCOPE CPT-4: 24558 05/04/2012 URINE CULTURE/ COLONY COUNT CPT-4: 65511 05/29/2010 TRIAMCINOLONE ACET INJ NOS CPT-4: J3301 05/20/2010 METHYLPREDNISOLONE 40 MG INJ CPT-4: J1030 05/20/2010 THER/PROPH/DIAG INJ SC/IM CPT-4: 35572 05/20/2010 Vital Signs Date Vital 04/03/2019 Blood Pressure 1: 136/76 Code: 8480-6 [...] 1: 134/78 Code: 8480-6 BMI: 35.1 Code: 67793-4 Heart Rate 1: 76 bpm Height: 5'9" Respiratory Rate: 20 bpm Temperature: 36 .6 (C) / 97.8 (F) Weight: 238 lbs 12/27/2017 Blood Pressure 1: 126/64 Code: 8480-6 BMI: 34.7 Code: 03077-7 Heart Rate 1: 72 bpm Height: 5'9" Respiratory Rate: 20 bpm Temperature: 36 .8 (C) / 98.2 (F) Weight: 235 lbs 10/12/2017 Blood Pressure 1: 142/80 Code: 8480-6 BMI: 35.1 Code: 10663-7 Heart Rate 1: 98 bpm Height: 5'9" Respiratory Rate: 22 bpm SpO2: 100% Tempera ture: 36.5 (C) / 97.7 (F) Weight: 238 lbs 09/16/2017 Blood Pressure 1: 136/82 Code: 8480-6 BMI: 34.1 Code: 92460-4 Heart Rate 1: 82 bpm Height: 5'9" Respiratory Rate: 18 bpm SpO2: 96% Tempera ture: 36.3 (C) / 97.3 (F) Weight: 231 lbs 05/25/2017 Blood Pressure 1: 122/82 Code: 8480-6 BMI: 32.3 Code: 07351-2 Heart Rate 1: 116 bpm Height: 5'9" Respiratory Rate: 20 bpm SpO2: 98% Tempera ture: 35.6 (C) / 96.1 (F) Weight: 219 lbs 01/03/2017 Blood Pressure 1: 126/78 Code: 8480-6 BMI: 33.4 Code: 76121-2 Heart Rate 1: 72 bpm Height: 5'9" Respiratory Rate: 20 bpm Temperature: 36 .8 (C) / 98.2 (F) Weight: 226 lbs 09/23/2016 Blood Pressure 1: 126/82 Code: 8480-6 BMI: 33.8 Code: 75654-3 Heart Rate 1: 80 bpm Height: 5'9" Respiratory Rate: 20 bpm SpO2: 97% Tempera ture: 36.8 (C) / 98.2 (F) Weight: 229 lbs 09/03/2016 Blood Pressure 1: 188/64 Code: 8480-6 Bl ood Pressure 2: 166/92 Code: 8480-6 BMI: 34.4 Code: 03771-6 Heart Rate 1: 66 bpm Height: 5'9" Res piratory Rate: 20 bpm SpO2: 98% Temperature: 35.7 (C) / 96.2 (F) Weight: 233 lbs 07/08/2016 Blood Pressure 1: 134/82 Code: 8480-6 Heart Rate 1: 64 bpm Height: 5'9" Respiratory Rate: 20 bpm SpO2: 97% Temperature: 36.6 (C) / 97.8 (F) Weight: 06/21/2016 Blood Pressure 1: 112/68 Code: 8480-6 BMI: 33.8 Code: 04671-3 Heart Rate 1: 64 bpm Height: 5'9" Respiratory Rate: 20 bpm SpO2: 95% Tempera ture: 36.3 (C) / 97.3 (F) Weight: 229 lbs 02/23/2016 Blood Pressure 1: 128/78 Code: 8480-6 BMI: 33.4 Code: 01094-8 Heart Rate 1: 74 bpm Height: 5'9" [...] 1: 122/80 Code: 8480-6 BMI: 32.2 Code: 47065-2 Heart Rate 1: 80 bpm Height: 5'9" Respiratory Rate: 20 bpm Temperature: 37 .0 (C) / 98.6 (F) Weight: 218 lbs 08/09/2014 Blood Pressure 1: 132/84 Code: 8480-6 BMI: 33.1 Code: 00847-5 Heart Rate 1: 72 bpm Height: 5'9" Respiratory Rate: 20 bpm Temperature: 36 .7 (C) / 98.0 (F) Weight: 224 lbs 06/24/2014 Blood Pressure 1: 132/80 Code: 8480-6 BMI: 32.8 Code: 97003-4 Heart Rate 1: 68 bpm Height: 5'9" Respiratory Rate: 20 bpm Temperature: 36 .4 (C) / 97.6 (F) Weight: 222 lbs 03/22/2014 Blood Pressure 1: 128/84 Code: 8480-6 BMI: 32.5 Code: 00059-3 Heart Rate 1: 78 bpm Height: 5'9" Respiratory Rate: 22 bpm Temperature: 36 .0 (C) / 96.8 (F) Weight: 220 lbs 03/05/2014 Blood Pressure 1: 124/78 Code: 8480-6 BMI: 31.9 Code: 82810-8 Heart Rate 1: 82 bpm Height: 5'9" Respiratory Rate: 20 bpm Temperature: 35 .8 (C) / 96.4 (F) Weight: 216 lbs 01/16/2014 Blood Pressure 1: 116/68 Code: 8480-6 BMI: 33.8 Code: 53383-5 Heart Rate 1: 72 bpm Height: 5'7" Respiratory Rate: 20 bpm Temperature: 36 .6 (C) / 97.9 (F) Weight: 216 lbs 05/10/2013 Blood Pressure 1: 124/86 Code: 8480-6 BMI: 34.3 Code: 22760-4 Heart Rate 1: 84 bpm Height: 5'7" [...] 1: 116/84 Code: 8480-6 BMI: 33.1 Code: 62363-8 Heart Rate 1: 64 bpm Height: 5'9" Respiratory Rate: 20 bpm Temperature: 36 .4 (C) / 97.6 (F) Weight: 224 lbs 01/11/2013 Blood Pressure 1: 126/84 Code: 8480-6 BMI: 35.3 Code: 96184-7 Heart Rate 1: 68 bpm Height: 5'9" Respiratory Rate: 20 bpm Temperature: 36 .7 (C) / 98.1 (F) Weight: 239 lbs 11/03/2012 Blood Pressure 1: 104/70 Code: 8480-6 BMI: 34.4 Code: 86971-0 Heart Rate 1: 72 bpm Height: 5'9" Respiratory Rate: 20 bpm Temperature: 36 .8 (C) / 98.3 (F) Weight: 233 lbs 05/04/2012 Blood Pressure 1: 124/74 Code: 8480-6 BMI: 33.7 Code: 69865-4 Heart Rate 1: 84 bpm Height: 5'9" Temperature: 36.3 (C) / 97.3 (F) Weight: 228 lbs 10/11/2011 Blood Pressure 1: 110/70 Code: 8480-6 BMI: 33.7 Code: 87322-0 Heart Rate 1: 64 bpm Height: 5'9" Temperature: 36.8 (C) / 98.3 (F) Weight: 228 lbs 06/23/2011 Blood Pressure 1: 114/70 Code: 8480-6 BMI: 33.4 Code: 25575-0 Heart Rate 1: 80 bpm Height: 5'9" Respiratory Rate: 20 bpm Temperature: 36 .7 (C) / 98.0 (F) Weight: 226 lbs 06/14/2011 Blood Pressure 1: 118/74 Code: 8480-6 BMI: 33.4 Code: 89207-7 Heart Rate 1: 80 bpm Height: 5'9" [...] 1: 126/82 Code: 8480-6 BMI: 32.6 Code: 81335-2 Heart Rate 1: 68 bpm Height: 5'9" [...] 1: 140/92 Code: 8480-6 BMI: 31.3 Code: 91954-0 Heart Rate 1: 60 bpm Height: 5'10" Temperature: 36.7 (C) / 98.0 (F) Weight: 218 lbs Functional Status No Functional Status data Reason For Visit Reason For Visit Effective Dates Notes follow up 04/03/2019 gastroesophageal reflux 09/27/2018 follow [...] upper back on 08/13/16 while camping around [place], [place]. Patient states is tender around tick [...] stop Lisinopril HCT follow up 06/24/2010 hospital [facility], still on Septra DS and Levaquin ~generic [...] E11.9] Diagnosis: Essential hypertension[ICD10: I10] Jessica OBRIEN [email or web address] CPT-4: 89551 04/03/2019 ([id number]) OFFICE/OUTPATIENT VISIT EST Diagnosis: Gastro-esophageal reflux disease without esophagitis[ICD10: K21.9] Diagnosis: Urinary tract infection, site not specified[ICD10: N39.0] Diagnosis: Ventral hernia without obstruction or gangrene[ICD10: K43.9] Jessica VO [employer] CPT-4: 44207 09/27/2018 ([id number]) OFFICE/OUTPATIENT VISIT EST Diagnosis: Essential (primary) hypertension[ICD10: I10] Diagnosis: Type 2 diabetes mellitus without complications[ICD10: E11.9] Diagnosis: Carpal tunnel syndrome, right upper limb[ICD10: G56.01] Diagnosis: Primary insomnia[ICD10: F51.01] Jessica VO [employer] CPT-4: 33610 04/24/2018 ([id number]) OFFICE/OUTPATIENT VISIT EST Diagnosis: Type 2 diabetes mellitus without complications[ICD10: E11.9] Diagnosis: Mixed hyperlipidemia[ICD10: E78.2] Diagnosis: Essential (primary) hypertension[ICD10: I10] Diagnosis: Pain in unspecified joint[ICD10: M25.50] Jessica GEE [facility] CPT-4: 27130 12/27/2017 ([id number]) NURSE/OUTPATIENT VISIT EST Diagnosis: Hematuria, unspecified[ICD10: R31.9] [facility]: 17374 10/13/2017 ([id number]) OFFICE/OUTPATIENT VISIT EST Diagnosis: Pleurodynia[ICD10: R07.81] Sofi CAMPUZANO [facility] CPT-4: 09979 10/12/2017 ([id number]) OFFICE/OUTPATIENT VISIT EST Diagnosis: Acute bronchitis, unspecified[ICD10: J20.9] Sof[facility] CPT[facility]: 80118 09/16/2017 ([id number]) OFFICE/OUTPATIENT VISIT EST Diagnosis: Other specified postprocedural states[ICD10: Z98.890] Diagnosis: Cellulitis of neck[ICD10: L03.221] Diagnosis: Tachycardia, unspecified[ICD10: R00.0] [facility] 930[facility] 05/25/2017 ([id number]) OFFICE/OUTPATIENT VISIT EST Diagnosis: Lumbago with sciatica, right side[ICD10: M54.41] Diagnosis: Pain in unspecified joint[ICD10: M25.50] Jessica [facility] CPT-[facility]: 94306 01/03/2017 ([id number]) OFFICE/OUTPATIENT VISIT EST Diagnosis: Bitten or stung by nonvenomous insect and other nonvenomous arthropods, subsequent encounter[ICD10: W57.XXXD] Diagnosis: Essential (primary) hypertension[ICD10: I10] Diagnosis: Low back pain[ICD10: M54.5] Jessica SMITHLINE S. Lizz SOLOMON [facility] CPT-4: 17862 09/23/2016 OFFICE/OUTPATIENT VISIT EST Diagnosis: Bitten or stung by nonvenomous insect and other nonvenomous arthropods, initial encounter[ICD10: W57.XXXA] Diagnosis: Essential (primary) hypertension[ICD10: I10] Kaitlynn Mosley JESSICA GEE [facility] CPT-4: 52486 09/03/2016 ([id number]) OFFICE/OUTPATIENT VISIT EST Diagnosis: Low back pain[ICD10: M54.5] Diagnosis: Radiculopathy, lumbosacral region[ICD10: M54.17] Jessica GEE [facility] CPT-4: 38166 07/08/2016 ([id number]) OFFICE/OUTPATIENT VISIT EST Diagnosis: Acute pharyngitis, unspecified[ICD10: J02.9] Jessica GEE [facility] CPT-4: 00278 06/21/2016 ([id number]) OFFICE/OUTPATIENT VISIT EST Diagnosis: Cough[ICD10: R05] Diagnosis: Fever, unspecified[ICD10: R50.9] Janyia GEE [facility] CPT-4: 72672 02/23/2016 ([id number]) OFFICE/OUTPATIENT VISIT EST Diagnosis: Acute sinusitis, unspecified[ICD10: J01.90] Jessica GEE [facility] CPT-4: 36998 02/16/2016 OFFICE/OUTPATIENT VISIT EST Diagnosis: Type 2 diabetes mellitus without complications[ICD10: E11.9] Diagnosis: Gastro-esophageal reflux disease without esophagitis[ICD10: K21.9] Diagnosis: Ventral hernia without obstruction or gangrene[ICD10: K43.9] Suki GEE [employer] [facility] CPT-4: 66070 02/11/2015 OFFICE/OUTPATIENT VISIT EST 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] Diagnosis: Essential (primary) hypertension[ICD10: I10] Suki GEE [facility] CPT-4: 09014 01/28/2015 OFFICE/OUTPATIENT VISIT EST Diagnosis: SINUSITIS, ACUTE[ICD9: 461.9] Kaitlynnruthie GEE [facility] CPT-4: 85008 12/06/2014 ([id number]) OFFICE/OUTPATIENT VISIT EST Diagnosis: SINUSITIS, ACUTE[ICD9: 461.9] Kaitlynn GEE DO [facility] CPT-4: 32850 08/09/2014 ([id number]) OFFICE/OUTPATIENT VISIT EST Diagnosis: TONSILLITIS, ACUTE[ICD9: 463] Suki SMITHLINE Monica GEE DO [facility] CPT-4: 37339 06/24/2014 OFFICE/OUTPATIENT VISIT EST Diagnosis: SINUSITIS, ACUTE[ICD9: 461.9] Diagnosis: EUSTACHIAN TUBE DYSFUNCTION[ICD9: 381.81] Diagnosis: COUGH[ICD9: 786.2] Suki SMITHLINE Monica GEE [facility] CPT-4: 16799 03/22/2014 OFFICE/OUTPATIENT VISIT EST Diagnosis: Elbow pain, right[ICD9: 719.42] Suki SMITHLINE Monica GEE [facility] CPT-4: 49624 03/05/2014 OFFICE/OUTPATIENT VISIT EST Diagnosis: SINUSITIS, ACUTE[ICD9: 461.9] Jessica SMITHLINE Monica GEE [facility] CPT-4: 33691 01/16/2014 ([id number]) OFFICE/OUTPATIENT VISIT EST Diagnosis: GROSS HEMATURIA[ICD9: 599.71] Jessica SMITHLINE Monica GEE [facility] CPT-4: 37629 10/19/2013 ([id number]) OFFICE/OUTPATIENT VISIT EST Diagnosis: DM W/O COMPLICATION TYPE II[ICD9: 250.00] Diagnosis: HYPERLIPIDEMIA NEC/NOS[ICD9: 272.4] Jessicashannan SMITHGautam KING DomingaLloyd LUPILLO [facility] CPT-4: 03012 05/10/2013 ([id number]) OFFICE/OUTPATIENT VISIT EST Diagnosis: SINUSITIS, ACUTE[ICD9: 461.9] Jessica Michaelcorby VO Doming[facility]oyd LU[facility]LLO [facility] CPT-4: 90585 04/17/2013 OFFICE/OUTPATIENT VISIT EST Diagnosis: OTITIS MEDIA NOS[ICD9: 382.9] Diagnosis: COUGH[ICD9: 786.2] Suki GEE DO [facility] CPT-4: 77785 03/05/2013 OFFICE/OUTPATIENT VISIT EST Diagnosis: COUGH[ICD9: 786.2] Diagnosis: BRONCHITIS, ACUTE[ICD9: 466.0] Suki GEE DO [facility] CPT-4: 53112 03/02/2013 OFFICE/OUTPATIENT VISIT EST Diagnosis: COUGH[ICD9: 786.2] Diagnosis: OTITIS MEDIA NOS[ICD9: 382.9] Diagnosis: BRONCHITIS, ACUTE[ICD9: 466.0] Suki GEE DO [facility] CPT-4: 83219 03/01/2013 OFFICE/OUTPATIENT VISIT EST Diagnosis: DM W/O COMPLICATION TYPE II, UNCONTROLLED[ICD9: 250.02] Jessica GEE [facility] CPT-4: 79411 02/22/2013 ([id number]) PREV VISIT EST AGE 40-64 Diagnosis: DM W/O COMPLICATION TYPE II, UNCONTROLLED[ICD9: 250.02] Diagnosis: HYPERTENSION[ICD9: 401.9] Diagnosis: ROUTINE MEDICAL EXAM[ICD9: V70.0] Jessica GEE [facility] CPT-4: 60455 01/11/2013 OFFICE/OUTPATIENT VISIT EST Diagnosis: HZ (HERPES ZOSTER)[ICD9: 053.9] Kaitlynn Mosley JESSICA GEE [facility] CPT-4: 11596 11/03/2012 OFFICE/OUTPATIENT VISIT EST Diagnosis: URINARY TRACT INFECTION[ICD9: 599.0] Diagnosis: GERD[ICD9: 530.81] Diagnosis: PHARYNGITIS, ACUTE[ICD9: 462] Jessica GEE [facility] CPT-4: 63132 05/04/2012 OFFICE/OUTPATIENT VISIT EST Diagnosis: COUGH[ICD9: 786.2] Diagnosis: SINUSITIS, ACUTE[ICD9: 461.9] Diagnosis: PHARYNGITIS, ACUTE[ICD9: 462] Jessica GEE [facility] CPT-4: 00888 10/11/2011 OFFICE/OUTPATIENT VISIT EST Diagnosis: COUGH[ICD9: 786.2] Diagnosis: SINUSITIS, ACUTE[ICD9: 461.9] Diagnosis: PHARYNGITIS, ACUTE[ICD9: 462] Diagnosis: ALLERGIC RHINITIS[ICD9: 477.9] Xiomara VO S . ORENDER DO [facility] CPT-4: 47267 06/23/2011 OFFICE/OUTPATIENT VISIT EST Diagnosis: COUGH[ICD9: 786.2] Diagnosis: SINUSITIS, ACUTE[ICD9: 461.9] Diagnosis: PHARYNGITIS, ACUTE[ICD9: 462] Jessica Michaelaaronderek JESSICA S. ORENDER DO [facility] CPT-4: 80813 06/14/2011 OFFICE/OUTPATIENT VISIT EST Diagnosis: SINUSITIS, ACUTE[ICD9: 461.9] Diagnosis: PHARYNGITIS, ACUTE[ICD9: 462] Jessica Michaelaaronderek JESSICA S. ORENDER [facility] CPT-4: 07321 12/02/2010 OFFICE/OUTPATIENT VISIT EST Diagnosis: HYPERTENSION[ICD9: 401.9] Diagnosis: HYPERLIPIDEMIA NEC/NOS[ICD9: 272.4] Diagnosis: DERMATITIS NOS[ICD9: 692.9] Jessica VO S. O RENDER DO [facility] CPT-4: 55718 11/12/2010 OFFICE/OUTPATIENT VISIT EST Jessica VO S. ORE NDER DO [facility] CPT- 4: 37245 10/13/2010 ([id number]) OFFICE/OUTPATIENT VISIT EST Jessica HARKINS UELINE S. ORENDER DO [facility] CPT-4: 91408 06/24/2010 ([id number]) OFFICE/OUTPATIENT VISIT EST Jessica HARKINS UELINE S. ORENDER [facility] CPT-4: 88967 06/08/2010 ([id number]) OFFICE/OUTPATIENT VISIT EST Xiomara VO S Lloyd ORENDER DO [facility] CPT-4: 12615 05/20/2010 ([id number]) OFFICE/OUTPATIENT VISIT EST Jessica HARKINS UJOANNA SLloyd ORENDER [facility] CPT-4: 33007 04/30/2010 ([id number]) OFFICE/OUTPATIENT VISIT, EST Jessica MANZANO SLloyd ORENDER [facility] CPT-4: 47820 01/22/2010 Plan of Care Planned Activity Notes Codes Status Date Visit Diagnosis Plan: Type 2 diabetes mellitus without complications Discussion: Lab discussed Add jardience 10mg po q AM Hold spironolactone Accuchecks daily alternating times Fwup 1 month with BS readings Notify if any signs of yeast infection ICD-9 : 250.00 ICD-10 : E11.9 04/03/2019 Appointment: Jessica Gee WPtel: [address] [place], [place] [id number] FOLLOW UP 04/03/2019 Visit Diagnosis Plan: Gastro-esophageal [...] : N39.0 09/27/2018 Appointment: Jessica Gee WPtel: [address] [place], [place] [id number] ACUTE ILLNESS 09/27/2018 Visit Diagnosis Plan: Carpal tunnel syndrome, right up per limb Discussion: Scheduled for surgery on May [address] Norris ICD-9 : 354.0 ICD-10 : G56.01 04/24/2018 Visit Diagnosis Plan: Type 2 diabetes mellitus without complications Discussion: Check CMP, Lipids Accuchecks daily ICD-9 : 250.00 ICD-10 : E11.9 04/24/2018 Visit Diagnosis Plan: Primary insomnia Discussion: Tri al of amitriptylene 25mg po q HS ICD-9 : 780.52 ICD-10 : F51.01 04/24/2018 Visit Diagnosis Plan: Essential (primary) hypertension Discussion: Stable ICD-9 : 401.9 ICD-10 : I10 04/24/2018 Appointment: [facility] [phone] [id number] [facility] 04/24/2018 Patient Education: celecoxib- [employer] [id number] Completed 04/24/2018 Patient Education: amitriptyline- [employer] C[employer]on [id number] Completed 04/24/2018 Visit Diagnosis Plan: Essential (primary) [...] E11.9 12/27/2017 Appointment: [facility] Gee [facility]Ptel[phone] [facility] [facility] 12/27/2017 Patient Education: Patient Medication Summary Completed 12/27/2017 Patient Education: Patient Medication Summary Completed 12/19/2017 Care Plan: MAMMOGRAM BOTH BREASTS LOINC : 10453-3 Pending 12/19/2017 Patient Education: Patient Medication Summary Completed 12/16/2017 Care Plan: ASSAY THYROID STIM HORMONE Pen ding 12/16/2017 Care Plan: ASSAY OF FREE THYROXINE Pendin g 12/16/2017 Care Plan: LIPID PANEL LOINC : 90027-7 Pending 12/16/2017 Care Plan: CBC Pending 12/16/2017 Care Plan: A1C HPLC LOINC : 84332-0 Pending 12/16/2017 Patient Education: Patient Medication Summary Completed 10/17/2017 Care Plan: CT ANGIOGRAPHY CHEST LOINC : 25732-3 Pending 10/17/2017 Patient Education: Patient Medication Summary Completed 10/14/2017 Care Plan: CT ANGIOGRAPHY CHEST LOINC : 55330-9 Pending 10/14/2017 Appointment: Jessica Gee WPtel: [address] [place], [place] [id number] UA 10/13/2017 Patient Education: Patient Medication Summary Completed 10/13/2017 Visit Diagnosis Plan: Pleurodynia Discussion: patient sent for stat cxray. medrol dose pack prescribed for symptom management. instructed to perform deep breathing exercises at home to prevent atelectasis or pneumonia. will notify pa tient of results of xray and order additional tests/medications as needed. ICD-9 : 786.50 ICD-10 : R07.81 10/12/2017 Appointment: Sofi Gresham [address] [place] [address] ACUTE ILLNESS 10/12/2017 Patient Education: Patient Medication [...] : J20.9 09/16/2017 Appointment: Sofi Gresham [address] [facility] ACUTE ILLNESS 09/16/2017 Patient Education: Patient Medication Summary Completed 09/16/2017 Appointment: Jessica Gee WPtel: [address] [place], [place] [phone] CANCELED 08/10/2017 Visit Diagnosis Plan: Tachycardia, unspecified [...] : Z98.890 05/25/2017 Appointment: Jessica Gee WPtel[facility] [phone] [facility] [facility] 05/25/2017 Patient Education: Patient Medication Summary Completed 05/25/2017 Visit Diagnosis Plan: Lumbago with sciatica, right britton e Discussion: Check arthritis panel Patient awaiting neck surgery before surgery will consider back surgery ICD-9 : 724.2 ICD-10 : M54.41 01/03/2017 Appointment: Jessica Gee WPtel: [phone] [facility] ACUTE ILLNESS 01/03/2017 Patient Education: Patient Medication Summary Completed 01/03/2017 Patient Education: Patient Medication Summary Completed 12/16/2016 Care Plan: MAMMOGRAM SCREENING LOINC : 2 6347-5 Pending 12/16/2016 Patient Education: Patient Medication Summary Completed 10/07/2016 Care Plan: MRI LUMBAR SPINE W/O & W/DYE LOINC : 23198-6 Pending 10/07/2016 Visit Diagnosis Plan: Bitten or [...] I10 09/23/2016 Appointment: Jessica Gee WPtel[facility] [phone] [facility] 09/22 confirmed WORK IN 09/23/2016 Patient Education: Patient Medication Summary Completed 09/23/2016 Visit Plan: Tick panel at [facility] Increa se spironolactone to 2 po am (New Rx sent) Take B/P at home/work and also come to office next week for recheck Will await lab results before starting any antibiotic 09/03/2016 Appointment: Kaitlynn Mosley WPtel: [address] [place], [place] [phone] ACUTE ILLNESS 09/03/2016 Patient Education: Patient Medication Summary Completed 09/03/2016 Visit Diagnosis Plan: Low back pain Discussion: Celebr ex BID PT Continue stretches at home L/S xray Follow Up: 1 months ICD-9 : 724.2 ICD-10 : M54.5 07/08/2016 Appointment: Jessica Gee WPtel: [address] [place] [address] ACUTE ILLNESS 07/08/2016 Patient Education: Patient Medication Summary Completed 07/08/2016 Care Plan: X-RAY EXAM L-S SPINE 2/3 VWS LOINC : 32075-5 Pending 07/08/2016 Visit Plan: Supportive care. Rest, Fluid s, Tylenol/Motrin prn fever or bodyaches. Notify if worsening symptoms.New toothebrush in 5 days 06/21/2016 Visit Diagnosis Plan: Acute pharyngitis, unspecified D iscussion: Strep Negative Supportive Care May use zyrtec 10mg q HS ICD-9 : 462 ICD-10 : J02.9 06/21/2016 Visit NOS Plan: Plan Notes: Supportive care. Rest, Fluids... 06/21/2016 Appointment: Jessica Gee WPtel: [address] [place] [address] ACUTE ILLNESS 06/21/2016 Patient Education: Patient Medication Summary Completed 06/21/2016 Visit Plan: No pulseox last week to comp are to today, but she does sound diminished today Studies as above ordered Continue cefdinir until results received Increase albuterol treatments to q4-6hrs PRN Continue supportive care 02/23/2016 Appointment: Janiya Gregorio [address] [place] [address] ACUTE ILLNESS 02/23/2016 Patient Education: Patient Medication Summary Completed 02/23/2016 Care Plan: CHEST X-RAY 2VW FRONTAL&LATL LOINC : 01742-1 Pending 02/23/2016 Visit Plan: Saline nasal flushes prn. Ty lenol/Motrin prn headache. Notify if persists/symptoms worsening. 02/16/2016 Appointment: Jessica Gee WPtel: [address] [place], [place] [phone] ACUTE ILLNESS 02/16/2016 Patient Education: Patient Medication Summary Completed 02/16/2016 Visit Plan: Discussed labs Continue Topr ol at 200 mg PO daily Increase Aciphex to BID Notify if increase of Aciphex does not give relief. Repeat PT/INR in 2 weeks. 02/11/2015 Appointment: Suki Barahona WPtel: [address] [place], [place] [phone] 02/10 confirmed ~sl FOLLOW UP 02/11/2015 Patient Education: Patient Medication Summary Completed 02/11/2015 Patient Education: Patient Medication Summary Completed 02/06/2015 Care Plan: POC PROTIME/INR LOINC : 26852 -6 Pending 02/06/2015 Visit Plan: Increase Toprol XL 200 mg to one full tablet daily (is currently taking only 1/2 tablet) To for EKG today Monitor daily BP Notify of any changes- increased numbness, weakness, headache etc. 01/28/2015 Appointment: Suki Barahona WPtel: [address] [place] [address] ACUTE ILLNESS 01/28/2015 Patient Education: Patient Medication Summary Completed 01/28/2015 Visit Plan: ERx Amoxicillin and Flonase Nasal saline, humidified air Facial heat or cold packs for comfort Increase fluids/rest Discussed s/s of worsening, go to over weekend if these occur. 12/06/2014 Appointment: Kaitlynn Mosley WPtel: [address] [place], [place] [phone] ACUTE ILLNESS 12/06/2014 Patient Education: Patient Medication Summary Completed 12/06/2014 Appointment: Kaitlynn Mosley WPtel: [address] [place], [place] [phone] ACUTE ILLNESS 08/09/2014 Patient Education: Patient Medication Summary Completed 08/09/2014 Appointment: Suki Barahona WPtel: [address] [place], [place] [phone] ACUTE ILLNESS 06/24/2014 Patient Education: Patient Medication Summary Completed 06/24/2014 Appointment: Suki Barahona WPtel: [address] [place] [address] ACUTE ILLNESS 03/22/2014 Patient Education: Patient Medication Summary Completed 03/22/2014 Patient Education: [employer] - Antibi otics, Analgesics 18+, Oral Contraceptives F 18+ Completed 03/22/2014 Appointment: Suki Barahona WPtel: [address] [place], [place] [phone] FOLLOW UP 03/05/2014 Patient Education: Patient Medication Summary Completed 03/05/2014 Visit Plan: Saline nasal flushes prn. Ty lenol/Motrin prn headache. Notify if persists/symptoms worsening. Restart flonase 01/16/2014 Appointment: Jessica Gee WPtel: [address] [place] [address] ACUTE ILLNESS 01/16/2014 Patient Education: Patient Medication Summary Completed 01/16/2014 Appointment: Jessica Gee WPtel: [address] [place] [address] 10/19/2013 Patient Education: Patient Medication Summary Completed 10/19/2013 Appointment: Jessica Gee WPtel: [address] [place], [place] [phone] 08/08 patient canceled appt and said will call back to [facility] FOLLOW UP 08/09/2013 Visit Plan: Increase Coumadin to 6mg M-F and stay on 5mg Sat, Sun Add lipids to labs Check PT/INR in 3wks Continue metfromin at current dose and accuchecks 05/10/2013 Appointment: Jessica Gee WPtel: [address] [place], [place] [phone] 05/09 FOLLOW UP 05/10/2013 Patient Education: Patient Medication Summary Completed 05/10/2013 Visit Plan: Saline nasal flushes prn. Ty lenol/Motrin prn headache. Notify if persists/symptoms worsening. 04/17/2013 Appointment: Jessica Gee WPtel: [address] [place] [address] ACUTE ILLNESS 04/17/2013 Patient Education: Patient Medication Summary Completed 04/17/2013 Appointment: Suki Barahona WPtel: [address] [place] [address] FOLLOW UP 03/05/2013 Patient Education: Patient Medication Summary Completed 03/05/2013 Appointment: Suki Barahona WPtel: [address] [place] [address] FOLLOW UP 03/02/2013 Patient Education: Patient Medication Summary Completed 03/02/2013 Appointment: Suki Barahona WPtel: [address] [place] [address] ACUTE ILLNESS 03/01/2013 Patient Education: Patient Medication Summary Completed 03/01/2013 Visit Plan: Continue metformin and accuc hecks Add fish oil 1gram daily Check HbA1C, CMP in 2mos then fwup 02/22/2013 Appointment: Jessica Gee WPtel: [address] [place] [address] 02/21 work FOLLOW UP 02/22/2013 Patient Education: Patient Medication Summary Completed 02/22/2013 Visit Plan: Start Metformin Start Accuch ecks daily alternating times Will go for dilated eye exam once BS more stabilized Diabetic foot care discussed Diabetic diet info given 01/11/2013 Appointment: Jessica Gee WPtel: [address] [place] [address] FOLLOW UP 01/11/2013 Patient Education: Patient Medication Summary Completed 01/11/2013 Appointment: Kaitlynn Mosley WPtel: [address] [place] [address] ACUTE ILLNESS 11/03/2012 Patient Education: Patient Medication Summary Completed 11/03/2012 Appointment: Xiomara Rodriguez WPtel: [address] [place] [address] ACUTE ILLNESS 05/04/2012 Patient Education: Patient Medication Summary Completed 05/04/2012 Visit Plan: pt reports that she always g ets yeast infections. Discussed that the antifungal can cause problems/increased bleeding with Coumdin. Pt. will start with probiotics and only take the Diflucan if needed. Cefdinir. 10/11/2011 Appointment: Xiomara Rodriguez WPtel: [address] [place] [address] ACUTE ILLNESS 10/11/2011 Patient Education: Patient Medication Summary Completed 10/11/2011 Appointment: Xiomara Rodriguez WPtel: [address] [place] [address] FOLLOW UP 06/23/2011 Patient Education: Patient Medication Summary Completed 06/23/2011 Visit Plan: Will prescribe an antibiotic and diflucan. Pt. reports that she frequently gets yeast infection. Discussed that she will notify if any symptoms persist. Pt. reports that her relatives have recently been hospitalized with pneumonia. 06/14/2011 Appointment: Xiomara Rodriguez WPtel: [address] [place] [address] ACUTE ILLNESS 06/14/2011 Patient Education: Patient Medication Summary Completed 06/14/2011 Visit Plan: sample of veramyst. Cefuroxi me axetil. Pt. will focus on hydration and rest. Discussed comfort measures and monitoring for worsening symptoms. 12/02/2010 Appointment: Xiomara Rodriguez WPtel: [address] [place] [address] ACUTE ILLNESS 12/02/2010 Patient Education: Patient Medication Summary Completed 12/02/2010 Visit Plan: Change HCTZ to spironolacton e will start zocor in 1 mo BP med in 1mo 11/12/2010 Appointment: Jessica Gee WPtel: [address] [place] [address] FOLLOW UP 11/12/2010 Patient Education: Patient Medication Summary Completed 11/12/2010 Appointment: Jessica Gee WPtel: [address] [place] [address] BP CHECK 10/26/2010 Patient Education: Patient Medication Summary Completed 10/26/2010 Visit Plan: Continue Toprol at bedtime A dd HCTZ in AM BP check in 2wks Fasting lab with next PT/INR 10/13/2010 Appointment: Jessica Gee WPtel: [address] [place] [address] FOLLOW UP 10/13/2010 Patient Education: Patient Medication Summary Completed 10/13/2010 Visit Plan: Cont abx. Fwup with surgery as scheduled 06/24/2010 Appointment: Jessica Gee WPtel: [address] [place] [address] Hospital Follow Up 06/24/2010 Patient Education: Patient Medication Summary Completed 06/24/2010 Appointment: Jessica Gee WPtel: [address] [place] [address] Hospital Follow Up 06/22/2010 Visit Plan: pt [...] to subside. 06/08/2010 Appointment: Xiomara Rodriguez WPtel: [address] [place] [address] ACUTE ILLNESS 06/08/2010 Patient Education: Patient Medication Summary Completed 06/08/2010 Appointment: Xiomara Rodriguez WPtel: [address] [place] [address] FOLLOW UP 06/01/2010 Appointment: Jessica Gee WPtel: [address] [place] [address] UA 05/29/2010 Patient Education: Patient Medication Summary Completed 05/29/2010 Appointment: Xiomara Rodriguez WPtel: [address] [place] [address] ACUTE ILLNESS 05/20/2010 Patient Education: Patient Medication Summary Completed 05/20/2010 Appointment: Jessica Gee WPtel: [address] [place] [address] BP CHECK 05/13/2010 Patient Education: Patient Medication Summary Completed 05/13/2010 Visit Plan: Increase Lisinopril hct to 2 0/12.5mg q AM Use atarax prn and routinely at bedtime and Medrol dose pack BP check in 3wks Pt defers stress test at this time 04/30/2010 Appointment: Jessica Gee WPtel: [address] [place] [address] ACUTE ILLNESS 04/30/2010 Patient Education: Patient Medication Summary Completed 04/30/2010 Appointment: Jessica Gee WPtel: [address] [place] [address] BP CHECK 02/27/2010 Patient Education: Patient Medication Summary Completed 02/27/2010 Visit Plan: Cont Toprol Add Altace 10mg QD Cont Wellbutrin Will likely add SSRI after BP stable BP check in 2wks 01/22/2010 Appointment: Jessica Gee WPtel: [address] [place] [address] ACUTE ILLNESS 01/22/2010 Patient Education: Patient Medication Summary Completed 01/22/2010 Referral: Rupa Raines WPtel: [address] [address] [id number] [place] Referral Completed Referral: Neymar Alberts WPtel: [phone] [address] [place] Referral Initiated Instructions Comment . Tick [...]
--- OUTSIDE RECORDS SUMMARY | 2019-09-10 03:09 | XMS REPORT | CCD ---
Author Author Nava Gee D.O. 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 Name Role Phone Jessica Gee D.O., PP Unavailable CCM Unavailable Summary Purpose Interface Exchange Insurance Providers Payer name Policy type / Coverage type Covered libertarian ID Effective Begin Date Effective End Date Blue Cross Blue Shield Blue Cross/Blue Shield [id number] Unknown Family History Family History data not found Social History Social History Element Codes Description Effective Dates Tobacco history SNOMED CT: 062771019 Never smoker 10/13/2010 Allergies, Adverse Reactions, Alerts [...] findings ICD-9: V70.0 ICD-10: Z00.00 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 TAKE AN ADDITIONAL TABLET ON TUESDAY AND Tuesday05/02/2019 No Stop Date Active Coumadin 5 mg tablet RxNorm: 177949 TAKE 1 TABLET BY MOUTH ONCE DAILY 04/02/2019 05/02/2019 Inactive celecoxib 200 mg capsule RxNorm: 207702 TAKE 1 CAPSULE BY MOUTH TWICE DAILY 03/20/2019 06/17/2019 Active metformin ER 500 mg tablet,extended release 24 hr RxNorm: 86 0975 TAKE 1 TABLET BY MOUTH TWICE DAILY 03/19/2019 05/17/2019 Active pravastatin 40 mg tablet RxNorm: 381735 TAKE 1 TABLET BY MOUTH ONCE DAILY 03/19/2019 06/16/2019 Active Coumadin 5 mg tablet RxNorm: 407607 TAKE 1 TABLET BY MOUTH ONCE DAILY 02/28/2019 04/01/2019 Inactive warfarin 1 mg tablet RxNorm: 058967 TAKE 1 TABLET BY MO UT ONCE DAILY. TAKE AN ADDITIONAL TABLET ON TUESDAY AND Tuesday02/28/2019 05/01/2019 Inactiv e omeprazole 40 mg capsule,delayed release RxNorm: 477751 TAKE 1 CAPSULE BY MOUTH TWICE DAILY 02/19/2019 No Stop Date Active metformin ER 500 mg tablet,extended release 24 hr RxNorm: 86 0975 1 Tablet(s) PO BID 02/19/2019 03/18/2019 Inactive metformin ER 500 mg tablet,extended release 24 hr RxNorm: 86 0975 1 Tablet(s) PO BID 01/15/2019 02/13/2019 Inactive alprazolam 0.25 mg tablet RxNorm: 927635 1 Tablet(s) Oral prior to flight 01/03/2019 No Stop Date Active omeprazole 40 mg capsule,delayed release RxNorm: 501800 TAKE 1 CAPSULE BY MOUTH TWICE DAILY 12/20/2018 02/18/2019 Inactive metformin ER 500 mg tablet,extended release 24 hr RxNorm: 86 0975 1 Tablet(s) PO BID 12/11/2018 01/09/2019 Inactive pravastatin 40 mg tablet RxNorm: 198251 TAKE 1 TABLET BY MOUTH ONCE DAILY 12/11/2018 03/18/2019 Inactive Coumadin 5 mg tablet RxNorm: 903158 1 Tablet(s) PO QD 11/27/201809/2018 Inactive metformin ER 500 mg tablet,extended release 24 hr RxNorm: 86 0975 1 Tablet(s) PO BID 10/02/2018 11/30/2018 Inactive warfarin 1 mg tablet RxNorm: 852211 TAKE 1 TABLET BY [facility] ONCE DAILY. TAKE AN ADDITIONAL TABLET ON TUESDAY AND Tuesday10/02/2018 02/27/2019 Inactiv e Bactrim DS 800 mg-160 mg tablet RxNorm: 947977 1 Tablet(s) PO BID 0 09/27/2018 10/03/2018 Inactive warfarin 5 mg tablet RxNorm: 674208 1 Tablet(s) PO QD 09/27/201810/2018 Inactive Toprol XL 200 mg tablet,extended release RxNorm: 442298 1 Table t(s) PO QD 09/18/2018 03/16/2019 Inactive omeprazole 40 mg capsule,delayed release RxNorm: 792909 TAKE 1 CAPSULE BY MOUTH TWICE DAILY 09/11/2018 12/19/2018 Inactive Coumadin 5 mg tablet RxNorm: 546030 1 Tablet(s) PO QD 08/21/201811/2018 Inactive metformin ER 500 mg tablet,extended release 24 hr RxNorm: 86 0975 1 Tablet(s) PO BID 07/31/2018 09/28/2018 Inactive omeprazole 40 mg capsule,delayed release RxNorm: 059915 TAKE 1 CAPSULE BY MOUTH TWICE DAILY 06/27/2018 09/10/2018 Inactive metformin ER 500 mg tablet,extended release 24 hr RxNorm: 86 0975 Tablet(s) 1 Tablet(s) PO BID 06/27/2018 07/31/2018 Inactive Toprol XL 200 mg tablet,extended release RxNorm: 958545 1 Table t(s) PO QD 06/14/2018 09/17/2018 Inactive Coumadin 5 mg tablet RxNorm: 117761 1 Tablet(s) PO QD 06/14/201804/2018 Inactive metformin ER 500 mg tablet,extended release 24 hr RxNorm: 86 0975 Tablet(s) 1 Tablet(s) PO BID 05/22/2018 06/26/2018 Inactive Coumadin 5 mg tablet RxNorm: 731389 TAKE 1 TABLET BY MOUTH ONCE DAILY 05/11/2018 06/14/2018 Inactive Lovenox 40 mg/0.4 mL subcutaneous syringe RxNorm: 228128 40 Mil ligram(s) SQ QD 05/05/2018 09/26/2018 Inactive amitriptyline 25 mg tablet RxNorm: 271237 1 Tablet(s) PO QHS fo r sleep/HAs 04/24/2018 10/20/2018 Inactive [employer] Ultra Test strips RxNorm: Test blood sugar sigrid y (Dx:E11.65) 04/24/2018 No Stop Date Active celecoxib 200 mg capsule RxNorm: 304273 1 Capsule(s) PO BID 019 10/20/2018 Inactive Celebrex 200 mg capsule RxNorm: 702672 TAKE 1 CAPSULE BY MOUTH ONCE DAILY 04/19/2018 04/23/2018 Inactive warfarin 1 mg tablet RxNorm: 461927 1 Tablet(s) PO QD a nd additional tablet on Tue & Th04/14/2018 10/01/2018 Inactive Toprol XL 200 mg tablet,extended release RxNorm: 087628 TAKE 1 TABLET BY MOUTH ONCE DAILY 04/11/2018 06/14/2018 Inactive metformin ER 500 mg tablet,extended release 24 hr RxNorm: 86 0975 Tablet(s) 1 Tablet(s) PO BID 03/17/2018 05/21/2018 Inactive Coumadin 5 mg tablet RxNorm: 985921 TAKE 1 TABLET BY MOUTH ONCE DAILY 03/15/2018 05/10/2018 Inactive Lovenox 40 mg/0.4 mL subcutaneous syringe RxNorm: 390601 40 Mil ligram(s) SQ QD 01/27/2018 04/11/2018 Inactive omeprazole 40 mg capsule,delayed release RxNorm: 350764 TAKE 1 CAPSULE BY MOUTH TWICE DAILY 01/23/2018 06/26/2018 Inactive pravastatin 40 mg tablet RxNorm: 301258 TAKE 1 TABLET BY MOUTH ONCE DAILY 01/23/2018 12/10/2018 Inactive metformin ER 500 mg tablet,extended release 24 hr RxNorm: 86 0975 Tablet(s) 1 Tablet(s) PO BID 01/16/2018 01/15/2018 Inactive Toprol XL 200 mg tablet,extended release RxNorm: 791425 TAKE 1 TABLET BY MOUTH ONCE DAILY 01/16/2018 04/10/2018 Inactive Coumadin 5 mg tablet RxNorm: 420071 TAKE 1 TABLET BY MOUTH ONCE DAILY 01/06/2018 03/14/2018 Inactive Celebrex 200 mg capsule RxNorm: 058945 1 Capsule(s) PO BID 12/28/1903/26/2018 Inactive metformin ER 500 mg tablet,extended release 24 hr RxNorm: 86 0975 1 Tablet(s) PO BID Needs APPT 12/21/2017 01/16/2018 Inactive omeprazole 40 mg capsule,delayed release RxNorm: 162601 TAKE 1 CAPSULE BY MOUTH TWICE DAILY 11/02/2017 01/22/2018 Inactive Celebrex 200 mg capsule RxNorm: 469963 1 Capsule(s) PO QD 11/01/2017 12/26/2017 Inactive Coumadin 5 mg tablet RxNorm: 229229 Tablet(s) TAKE ONE TABLET BY MOUTH ONCE DAILY. 10/31/2017 12/29/2017 Inactive warfarin 1 mg tablet RxNorm: 823331 1 Tablet(s) PO QD 10/31/201703/22 Inactive spironolactone 25 mg tablet RxNorm: 291796 TAKE TWO TAB LETS BY MOUTH IN THE MORNING 10/31/2017 04/23/2018 Inactive metformin ER 500 mg tablet,extended release 24 hr RxNorm: 86 0975 1 Tablet(s) PO BID Needs updated fasting lab 10/20/2017 12/21/2017 Inactive Medrol (Dale) 4 mg tablets in a dose pack RxNorm: 869056 Tablet(s) PO take as directed 10/12/2017 12/15/2017 Inactive Celebrex 200 mg capsule RxNorm: 193759 1 Capsule(s) PO QD 10/03/2017 10/02/2017 Inactive spironolactone 25 mg tablet RxNorm: 196732 TAKE TWO TAB LETS BY MOUTH IN THE MORNING 09/19/2017 10/30/2017 Inactive Zithromax Z-Dael 250 mg tablet RxNorm: 394275 Tablet(s) PO take as directed 09/16/2017 10/11/2017 Inactive Medrol (Dale) 4 mg tablets in a dose pack RxNorm: 009288 Tablet(s) take as directed PO 09/16/2017 10/11/2017 Inactive doxycycline hyclate 100 mg tablet RxNorm: 5140184 1 Tablet(s) PO BI D 09/16/2017 09/15/2017 Inactive doxycycline hyclate 100 mg tablet RxNorm: 1032908 1 Tablet(s) PO BI D 09/16/2017 09/25/2017 Inactive Tessalon Perles 100 mg capsule RxNorm: 042739 1 Capsule(s) PO T ID as needed 09/16/2017 12/15/2017 Inactive warfarin 1 mg tablet RxNorm: 926138 1 Tablet(s) PO QD 09/06/201710/19 Inactive Coumadin 5 mg tablet RxNorm: 967338 Tablet(s) TAKE ONE TABLET BY MOUTH ONCE DAILY. 09/06/2017 10/31/2017 Inactive Toprol XL 200 mg tablet,extended release RxNorm: 137606 1 Table t(s) PO QD 2017 01/02/2018 Inactive warfarin 1 mg tablet RxNorm: 871588 1 Tablet(s) PO QD DUE FOR L ABS AUGUST 12 08/29/2017 09/06/2017 Inactive Coumadin 5 mg tablet RxNorm: 476523 Tablet(s) TAKE ONE TABLET BY MOUTH ONCE DAILY. DUE FOR PT/INR AUGUST 12 08/29/2017 09/06/2017 Inactive Coumadin 5 mg tablet RxNorm: 192628 Tablet(s) TAKE ONE TABLET BY MOUTH ONCE DAILY. DUE FOR PT/INR AUGUST 12 08/01/2017 08/29/2017 Inactive warfarin 1 mg tablet RxNorm: 703727 1 Tablet(s) PO QD DUE FOR L ABS AUGUST 12 08/01/2017 08/29/2017 Inactive scopolamine 1 mg over 3 days transdermal patch RxNorm: 05715 2 1 TD take off in 72 hours. 08/01/2017 12/26/2017 Inactive pravastatin 40 mg tablet RxNorm: 234924 Tablet(s) TAKE ONE TABLET BY MOUTH ONCE DAILY 07/07/2017 01/02/2018 Inactive Coumadin 5 mg tablet RxNorm: 797878 Tablet(s) TAKE ONE TABLET BY MOUTH ONCE DAILY. DUE FOR PT/INR. 06/29/2017 08/01/2017 Inactive warfarin 1 mg tablet RxNorm: 562794 1 Tablet(s) PO QD 06/29/201707/19 Inactive Coumadin 5 mg tablet RxNorm: 071423 TAKE ONE TABLET BY MOUTH ONCE DAILY. DUE FOR PT/INR. 05/30/2017 06/29/2017 Inactive omeprazole 40 mg capsule,delayed release RxNorm: 864772 1 Capsu le(s) PO BID 05/30/2017 08/27/2017 Inactive Celebrex 200 mg capsule RxNorm: 944991 1 Capsule(s) PO QD 05/23/2017 10/03/2017 Inactive metformin ER 500 mg tablet,extended release 24 hr RxNorm: 86 0975 TAKE ONE TABLET BY MOUTH TWICE DAILY 05/20/2017 10/20/2017 Inactive Coumadin 5 mg tablet RxNorm: 349302 1 Tablet(s) PO QD due for PT/IN R 04/25/2017 05/24/2017 Inactive warfarin 1 mg tablet RxNorm: 138627 1 Tablet(s) PO QD due for l abs this week 03/16/2017 06/29/2017 Inactive omeprazole 40 mg capsule,delayed release RxNorm: 862130 1 Capsu le(s) PO BID 03/16/2017 05/30/2017 Inactive Celebrex 200 mg capsule RxNorm: 464650 1 Capsule(s) PO BID as n eeded for pain 03/16/2017 05/22/2017 Inactive Coumadin 5 mg tablet RxNorm: 475094 1 Tablet(s) PO QD due for PT/IN R 03/16/2017 04/14/2017 Inactive Celebrex 200 mg capsule RxNorm: 429192 1 Capsule(s) PO BID as n eeded for pain 02/09/2017 03/15/2017 Inactive Toprol XL 200 mg tablet,extended release RxNorm: 761012 1 Table t(s) PO QD 02/08/2017 2017 Inactive Celebrex 200 mg capsule RxNorm: 511394 1 Capsule(s) PO BID as n eeded for pain 01/14/2017 02/08/2017 Inactive omeprazole 40 mg capsule,delayed release RxNorm: 815515 1 Capsu le(s) PO BID 01/12/2017 03/16/2017 Inactive Coumadin 5 mg tablet RxNorm: 742180 1 Tablet(s) PO QD 12/15/201602/19 Inactive warfarin 1 mg tablet RxNorm: 229825 1 Tablet(s) PO QD 12/15/201602/19 Inactive metformin ER 500 mg tablet,extended release 24 hr RxNorm: 86 0975 Tablet(s) TAKE ONE TABLET BY MOUTH TWICE DAILY 11/29/2016 02/26/2017 Inactive omeprazole 40 mg capsule,delayed release RxNorm: 965132 1 Capsu le(s) PO BID 11/29/2016 12/28/2016 Inactive pravastatin 40 mg tablet RxNorm: 987831 Tablet(s) TAKE ONE TABLET BY MOUTH ONCE DAILY 11/19/2016 07/07/2017 Inactive omeprazole 40 mg capsule,delayed release RxNorm: 892922 1 Capsu le(s) PO BID 10/19/2016 10/18/2016 Inactive omeprazole 40 mg capsule,delayed release RxNorm: 693314 1 Capsu le(s) PO BID 10/19/2016 11/17/2016 Inactive pantoprazole 40 mg tablet,delayed release RxNorm: 688205 1 Tabl et(s) PO QD 09/30/2016 10/18/2016 Inactive pantoprazole 40 mg tablet,delayed release RxNorm: 882200 1 Tabl et(s) PO QD 09/30/2016 09/29/2016 Inactive Zofran ODT 4 mg disintegrating tablet RxNorm: 603887 1 Tablet(s) PO Q4H as needed for nausea 09/15/2016 01/02/2017 Inactive Coumadin 5 mg tablet RxNorm: 386072 1 Tablet(s) PO QD 09/14/201611/20 Inactive warfarin 1 mg tablet RxNorm: 364686 1 Tablet(s) PO QD 09/14/201611/20 Inactive spironolactone 25 mg tablet RxNorm: 593312 2 Tablet(s) PO QAM 09/0301/02/2017 Inactive Wellbutrin XL 300 mg 24 hr tablet, extended release RxNorm: 318351 TAKE ONE TABLET BY MOUTH ONCE DAILY 08/26/2016 12/26/2017 Inactive Toprol XL 200 mg tablet,extended release RxNorm: 644783 1 Table t(s) PO QD 07/28/2016 02/08/2017 Inactive metformin ER 500 mg tablet,extended release 24 hr RxNorm: 86 0975 Tablet(s) TAKE ONE TABLET BY MOUTH TWICE DAILY 07/15/2016 11/29/2016 Inactive cyclobenzaprine 5 mg tablet RxNorm: 150969 1 Tablet(s) PO QHS f or spasm 07/08/2016 08/06/2016 Inactive Celebrex 200 mg capsule RxNorm: 1 Capsule(s) PO BID 07/08/2016 Inactive spironolactone 25 mg tablet RxNorm: 469909 1 Tablet(s) PO QAM 07/0609/02/2016 Inactive Wellbutrin XL 300 mg 24 hr tablet, extended release RxNorm: 443279 TAKE ONE TABLET BY MOUTH ONCE DAILY 06/15/2016 07/14/2016 Inactive Coumadin 5 mg tablet RxNorm: 537748 1 Tablet(s) PO QD 06/08/201608/20 Inactive warfarin 1 mg tablet RxNorm: 842389 1 Tablet(s) PO QD 06/08/201608/20 Inactive Toprol XL 200 mg tablet,extended release RxNorm: 966571 TAKE ONE TABLET BY MOUTH ONCE DAILY 04/26/2016 07/28/2016 Inactive pravastatin 40 mg tablet RxNorm: 395399 TAKE ONE TABLET BY MOUT H ONCE DAILY 04/19/2016 10/15/2016 Inactive Coumadin 5 mg tablet RxNorm: 507769 1 Tablet(s) PO QD 03/09/201605/19 Inactive warfarin 1 mg tablet RxNorm: 885983 1 Tablet(s) PO QD 03/09/201605/19 Inactive metformin ER 500 mg tablet,extended release 24 hr RxNorm: 86 0975 TAKE ONE TABLET BY MOUTH TWICE DAILY 02/25/2016 07/15/2016 Inactive spironolactone 25 mg tablet RxNorm: 157211 TAKE ONE TAB LET BY MOUTH ONCE DAILY IN THE MORNING 02/25/2016 07/06/2016 Inactive prednisone 20 mg tablet RxNorm: 887693 1 Tablet(s) PO QAM 02/16/2016 02/20/2016 Inactive cefdinir 300 mg capsule RxNorm: 916482 2 Capsule(s) PO QD 02/16/2016 02/25/2016 Inactive Toprol XL 200 mg tablet,extended release RxNorm: 880812 TAKE ONE TABLET BY MOUTH ONCE DAILY 01/26/2016 04/24/2016 Inactive Aciphex 20 mg tablet,delayed release RxNorm: 117281 1 Tablet(s) PO BID 12/24/2015 09/29/2016 Inactive Omeprazole and Pepci d have not helped. Coumadin 5 mg tablet RxNorm: 495775 1 Tablet(s) PO QD 12/10/201502/19 Inactive Coumadin 5 mg tablet RxNorm: 143121 1 Tablet(s) PO QD 12/08/201511/20 Inactive Toprol XL 200 mg tablet,extended release RxNorm: 260403 TAKE ONE TABLET BY MOUTH ONCE DAILY 11/20/2015 01/18/2016 Inactive warfarin 1 mg tablet RxNorm: 480794 1 Tablet(s) PO QD 11/03/201502/19 Inactive pravastatin 40 mg tablet RxNorm: 997641 Tablet(s) TAKE ONE TABLET BY MOUTH ONCE DAILY 10/20/2015 01/17/2016 Inactive pravastatin 40 mg tablet RxNorm: 604378 TAKE ONE TABLET BY MOUT H ONCE DAILY 10/20/2015 10/19/2015 Inactive metformin ER 500 mg tablet,extended release 24 hr RxNorm: 86 0975 TAKE ONE TABLET BY MOUTH TWICE DAILY 10/03/2015 12/31/2015 Inactive Toprol XL 200 mg tablet,extended release RxNorm: 995072 TAKE ONE TABLET BY MOUTH ONCE DAILY 09/17/2015 11/15/2015 Inactive Coumadin 5 mg tablet RxNorm: 657165 1 Tablet(s) PO QD 09/02/201511/19 Inactive Wellbutrin XL 300 mg 24 hr tablet, extended release RxNorm: 363853 TAKE ONE TABLET BY MOUTH ONCE DAILY 08/01/2015 10/29/2015 Inactive Pepcid 20 mg tablet RxNorm: 450130 1 Tablet(s) PO BID as needed 05/24/2017 Inactive warfarin 1 mg tablet RxNorm: 171829 TAKE ONE TABLET BY MOUTH ON CE DAILY 07/08/2015 11/03/2015 Inactive pravastatin 40 mg tablet RxNorm: 332027 1 Tablet(s) PO QD 07/08/2015 10/05/2015 Inactive spironolactone 25 mg tablet RxNorm: 084615 TAKE ONE TAB LET BY MOUTH ONCE DAILY IN THE MORNING 06/13/2015 09/10/2015 Inactive Coumadin 5 mg tablet RxNorm: 305552 1 Tablet(s) PO QD 06/05/201508/19 Inactive Wellbutrin XL 300 mg 24 hr tablet, extended release RxNorm: 005621 TAKE ONE TABLET BY MOUTH ONCE DAILY 05/16/2015 09/26/2018 Inactive Wellbutrin XL 300 mg 24 hr tablet, extended release RxNorm: 466981 TAKE ONE TABLET BY MOUTH ONCE DAILY 05/16/2015 06/14/2015 Inactive metformin ER 500 mg tablet,extended release 24 hr RxNorm: 86 0975 TAKE ONE TABLET BY MOUTH TWICE DAILY 05/16/2015 08/13/2015 Inactive pravastatin 40 mg tablet RxNorm: 486850 1 Tablet(s) PO QD 04/10/2015 07/07/2015 Inactive Aciphex 20 mg tablet,delayed release RxNorm: 010036 1 Tablet(s) PO BID 03/07/2015 09/02/2015 Inactive Omeprazole and Pepci d have not helped. Toprol XL 200 mg tablet,extended release RxNorm: 066705 1 Table t(s) PO QD 03/05/2015 08/31/2015 Inactive Aciphex 20 mg tablet,delayed release RxNorm: 341705 1 Tablet(s) PO QD 03/04/2015 03/06/2015 Inactive Omeprazole and Pepci d have not helped. Coumadin 5 mg tablet RxNorm: 742253 1 Tablet(s) PO QD 02/28/201511/2015 Inactive Aciphex 20 mg tablet,delayed release RxNorm: 753131 1 Tablet(s) PO BID 02/11/2015 03/03/2015 Inactive Omeprazole and Pepci d have not helped. metformin ER 500 mg tablet,extended release 24 hr RxNorm: 86 0975 1 Tablet(s) PO BID 01/10/2015 04/09/2015 Inactive pravastatin 40 mg tablet RxNorm: 153427 1 Tablet(s) PO QD 01/06/2015 04/05/2015 Inactive Wellbutrin XL 300 mg 24 hr tablet, extended release RxNorm: 481299 TAKE ONE TABLET BY MOUTH ONCE DAILY 12/19/2014 02/16/2015 Inactive amoxicillin 500 mg capsule RxNorm: 711186 2 Capsule(s) PO BID 12/0612/15/2014 Inactive Flonase 50 mcg/actuation nasal spray,suspension RxNorm: 8963 23 2 [place] each nostril NASAL QD 12/06/2014 03/05/2015 Inactive Coumadin 5 mg tablet RxNorm: 743473 1 Tablet(s) PO QD 11/28/201410/2014 Inactive spironolactone 25 mg tablet RxNorm: 162218 1 Tablet(s) PO QAM 11/2602/23/2015 Inactive Coumadin 5 mg tablet RxNorm: 990035 1 Tablet(s) PO QD 1 Tablet(s) PO QD- NEED TO CHECK LABS 10/30/2014 11/28/2014 Inactive warfarin 1 mg tablet RxNorm: 955756 1 Tablet(s) PO QD 10/30/201409/2015 Inactive Aciphex 20 mg tablet,delayed release RxNorm: 678041 1 Tablet(s) PO QD 10/02/2014 02/10/2015 Inactive Omeprazole and Pepci d have not helped. Coumadin 5 mg tablet RxNorm: 627455 1 Tablet(s) PO QD 1 Tablet(s) PO QD- NEED TO CHECK LABS 09/30/2014 10/30/2014 Inactive pravastatin 40 mg tablet RxNorm: 173092 1 Tablet(s) PO QD 09/25/2014 01/06/2015 Inactive warfarin 1 mg tablet RxNorm: 661954 1 Tablet(s) PO QD T [place] ONE TABLET BY MOUTH DIRECTED ON MON AND THUR 08/28/2014 10/29/2014 Inactive metformin ER 500 mg tablet,extended release 24 hr RxNorm: 86 0975 1 Tablet(s) PO BID 08/28/2014 01/10/2015 Inactive amoxicillin 875 mg tablet RxNorm: 611354 1 Tablet(s) PO BID 015 08/18/2014 Inactive Toprol XL 200 mg tablet,extended release RxNorm: 361534 TAKE ONE TABLET BY MOUTH ONCE DAILY 07/22/2014 03/05/2015 Inactive Coumadin 5 mg tablet RxNorm: 116253 1 Tablet(s) PO QD 07/01/201409/18 Inactive amoxicillin 875 mg tablet RxNorm: 958000 1 Tablet(s) PO BID 015 06/30/2014 Inactive pravastatin 40 mg tablet RxNorm: 204216 1 Tablet(s) PO QD needs fasting labs 06/19/2014 09/25/2014 Inactive Coumadin 5 mg tablet RxNorm: 251207 1 Tablet(s) PO QD 1 Tablet(s) PO QD TAKE ONE TABLET BY MOUTH ONCE DAILY-need labs 05/28/2014 07/01/2014 Inactive warfarin 1 mg tablet RxNorm: 718582 1 Tablet(s) PO As Directed 05/1908/28/2014 Inactive pravastatin 40 mg tablet RxNorm: 742738 1 Tablet(s) PO QD needs fasting labs 05/14/2014 06/19/2014 Inactive metformin ER 500 mg tablet,extended release 24 hr RxNorm: 86 0975 1 Tablet(s) PO BID 04/25/2014 08/28/2014 Inactive spironolactone 25 mg tablet RxNorm: 815585 1 Tablet(s) PO QAM 04/2511/26/2014 Inactive Coumadin 5 mg tablet RxNorm: 115338 1 Tablet(s) PO QD 1 Tablet(s) PO QD TAKE ONE TABLET BY MOUTH ONCE DAILY 04/23/2014 05/28/2014 Inactive Coumadin 5 mg tablet RxNorm: 352381 1 Tablet(s) PO QD 1 Tablet(s) PO QD TAKE ONE TABLET BY MOUTH ONCE DAILY 03/22/2014 04/20/2014 Inactive Tessalon Perles 100 mg capsule RxNorm: 751281 1 Capsule(s) PO TID 0 03/22/2014 03/28/2014 Inactive cefdinir 300 mg capsule RxNorm: 401711 2 Capsule(s) PO QD 03/22/2014 03/31/2014 Inactive Medrol (Dale) 4 mg tablets in a dose pack RxNorm: 277611 Tablet(s) PO as directed 03/05/2014 08/08/2014 Inactive Coumadin 5 mg tablet RxNorm: 503995 1 Tablet(s) PO QD 1 Tablet(s) PO QD TAKE ONE TABLET BY MOUTH ONCE DAILY 02/19/2014 03/20/2014 Inactive pravastatin 40 mg tablet RxNorm: 237338 1 Tablet(s) PO QD 02/04/2014 05/14/2014 Inactive Coumadin 5 mg tablet RxNorm: 247112 1 Tablet(s) PO QD T [place] ONE TABLET BY MOUTH ONCE DAILY 01/21/2014 02/19/2014 Inactive Medrol (Dale) 4 mg tablets in a dose pack RxNorm: 924934 Tablet(s) PO as directed 01/18/2014 03/04/2014 Inactive cefdinir 300 mg capsule RxNorm: 274098 2 Capsule(s) PO QD 01/16/2014 01/25/2014 Inactive metformin ER 500 mg tablet,extended release 24 hr RxNorm: 86 0975 1 Tablet(s) PO BID 12/17/2013 04/25/2014 Inactive Wellbutrin SR 150 mg tablet,sustained-release RxNorm: 363053 1 Tablet(s) PO BID 11/30/2013 02/27/2014 Inactive spironolactone 25 mg tablet RxNorm: 867225 1 Tablet(s) PO QAM 10/2204/25/2014 Inactive Macrobid 100 mg capsule RxNorm: 738456 1 Capsule(s) PO BID 10/20/19 14 10/25/2013 Inactive Macrobid 100 mg capsule RxNorm: 003962 1 Capsule(s) PO BID 10/20/19 14 10/18/2013 Inactive Toprol XL 100 mg tablet,extended release RxNorm: 815319 1 Table t(s) PO QD 10/15/2013 01/15/2014 Inactive Toprol XL 200 mg tablet,extended release RxNorm: 459563 1 Table t(s) PO QD 10/02/2013 07/22/2014 Inactive Wellbutrin XL 300 mg 24 hr tablet, extended release RxNorm: 504907 1 Tablet(s) PO QD 09/28/2013 12/19/2014 Inactive Aciphex 20 mg tablet,delayed release RxNorm: 215014 1 Tablet(s) PO QD 08/29/2013 10/02/2014 Inactive Omeprazole and Pepci d have not helped. Coumadin 5 mg tablet RxNorm: 786559 1 Tablet(s) PO QD 08/14/201307/20 Inactive Coumadin 5 mg tablet RxNorm: 789844 1 Tablet(s) PO QD 08/14/201305/2013 Inactive pravastatin 40 mg tablet RxNorm: 710535 1 Tablet(s) PO QD 07/24/2013 02/04/2014 Inactive warfarin 1 mg tablet RxNorm: 589343 1 Tablet(s) PO QD T [place] ONE TABLET BY MOUTH DIRECTED ON MON AND THUR 07/09/2013 05/28/2014 Inactive warfarin 5 mg tablet RxNorm: 572889 1 Tablet(s) PO QD T [place] ONE TABLET BY MOUTH EVERY DAY 06/08/2013 07/07/2013 Inactive spironolactone 25 mg tablet RxNorm: 606787 1 Tablet(s) PO QAM 05/3010/15/2013 Inactive clindamycin 300 mg capsule RxNorm: 402538 2 Capsule(s) PO TID 04/1704/30/2013 Inactive warfarin 5 mg tablet RxNorm: 279910 1 Tablet(s) PO QD 03/12/201305/20 Inactive azithromycin 250 mg tablet RxNorm: 898285 2 Tablet(s) PO QD 013 03/07/2013 Inactive metformin ER 500 mg tablet,extended release 24 hr RxNorm: 86 0975 1 Tablet(s) PO BID 02/22/2013 12/17/2013 Inactive spironolactone 25 mg tablet RxNorm: 557786 1 Tablet(s) PO QAM 01/2205/30/2013 Inactive metformin ER 500 mg tablet,extended release 24 hr RxNorm: 86 0977 1 Tablet(s) PO BID 01/11/2013 02/21/2013 Inactive pravastatin 40 mg tablet RxNorm: 789348 1 Tablet(s) PO QD 01/11/2013 07/24/2013 Inactive warfarin 5 mg tablet RxNorm: 286311 1 Tablet(s) PO QD 01/04/201302/19 Inactive warfarin 1 mg tablet RxNorm: 634110 Tablet(s) PO TAKE O NE TABLET BY MOUTH DIRECTED ON MON AND THUR 12/14/2012 07/08/2013 Inactive scopolamine 1.5 mg 72 hr Transderm Patch RxNorm: 551550 TD Apply 1 patch behind ear every 72 hours, replace after 3 days. 11/08/2012 01/15/2014 Inacti ve Pepcid 20 mg tablet RxNorm: 635236 1 Tablet(s) PO BID as needed 01/31/2013 Inactive Famvir 500 mg tablet RxNorm: 415959 1 Tablet(s) PO Q8H 11/03/2012 Inactive Aciphex 20 mg tablet,delayed release RxNorm: 429389 1 Tablet(s) PO QD 11/03/2012 05/01/2013 Inactive Omeprazole and Pepci d have not helped. gabapentin 300 mg capsule RxNorm: 587670 Capsule(s) PO TID 11/04/19 13 01/15/2014 Inactive warfarin 5 mg tablet RxNorm: 179099 1 Tablet(s) PO QD 11/02/201212/19 Inactive Wellbutrin XL 300 mg 24 hr tablet, extended release RxNorm: 408500 1 Tablet(s) PO QD 10/17/2012 04/30/2013 Inactive pravastatin 40 mg tablet RxNorm: 814807 Tablet(s) PO TA KE ONE TABLET BY MOUTH EVERY DAY. NEED FASTING LABS 09/18/2012 01/10/2013 Inactive Toprol XL 200 mg tablet,extended release RxNorm: 079463 Tablet(s) PO TAKE ONE TABLET BY MOUTH EVERY DAY 09/08/2012 10/01/2013 Inactive warfarin 5 mg tablet RxNorm: 733782 1 Tablet(s) PO QD 08/31/201210/19 Inactive pravastatin 40 mg tablet RxNorm: 686953 1 Tablet(s) PO QD Needs fasting labs 08/18/2012 09/16/2012 Inactive TAKE ONE TABLET BY M OUTH EVERY DAY warfarin 1 mg tablet RxNorm: 032203 1 Tablet(s) PO As directed on Mon and Thurs 08/11/2012 12/13/2012 Inactive spironolactone 25 mg tablet RxNorm: 576357 1 Tablet(s) PO QAM 07/1110/08/2012 Inactive warfarin 5 mg tablet RxNorm: 374484 1 Tablet(s) PO QD 07/03/201208/19 Inactive Diflucan 100 mg tablet RxNorm: 254113 1 Tablet(s) PO QD 05/04/2012 Inactive Cipro 500 mg tablet RxNorm: 993084 1 Tablet(s) PO BID 05/04/201204/22 Inactive Aciphex 20 mg tablet,delayed release RxNorm: 534432 1 Tablet(s) PO QD 05/04/2012 07/02/2012 Inactive Omeprazole and Pepci d have not helped. warfarin 5 mg tablet RxNorm: 413765 1 Tablet(s) PO QD 05/02/201206/19 Inactive warfarin 5 mg tablet RxNorm: 661274 1 Tablet(s) PO QD 03/02/201204/21 Inactive Toprol XL 200 mg tablet,extended release RxNorm: 874284 1 Table t(s) PO QD 03/02/2012 05/30/2012 Inactive spironolactone 25 mg tablet RxNorm: 160165 1 Tablet(s) PO QAM 02/0707/11/2012 Inactive pravastatin 40 mg tablet RxNorm: 956146 Tablet(s) PO 01/31/201208/17 Inactive TAKE ONE TABLET BY MOUTH EVERY DAY pravastatin 40 mg tablet RxNorm: 870182 1 Tablet(s) PO QD 01/31/2012 08/18/2012 Inactive omeprazole 40 mg capsule,delayed release RxNorm: 615549 1 Capsule(s) PO QD for stomach 01/11/2012 11/02/2012 Inactive for stomach warfarin 5 mg tablet RxNorm: 361047 1 Tablet(s) PO QD 01/03/201202/18 Inactive warfarin 5 mg tablet RxNorm: 936346 1 Tablet(s) PO QD 12/03/201112/19 Inactive pravastatin 40 mg tablet RxNorm: 693407 1 Tablet(s) PO QD 11/25/2011 01/23/2012 Inactive cefdinir 300 mg Cap RxNorm: 830718 1 Capsule(s) PO BID 10/11/201103/2011 Inactive Culturelle 10 billion cell Cap RxNorm: 333814 1 Capsule(s) PO BID 0 10/11/2011 11/09/2011 Inactive Diflucan 100 mg Tab RxNorm: 646741 1 Tablet(s) PO QD 10/11/201110/19 Inactive Wellbutrin XL 300 mg 24 hr tablet, extended release RxNorm: 252639 1 Tablet(s) PO QD 09/14/2011 10/17/2012 Inactive pravastatin 40 mg tablet RxNorm: 484629 1 Tablet(s) PO QD 08/25/2011 11/25/2011 Inactive Coumadin 5 mg tablet RxNorm: 853549 Tablet(s) PO Take as direct ed by doctor. 07/07/2011 12/03/2011 Inactive Singulair 10 mg Tab RxNorm: 151583 1 Tablet(s) PO QD al lergy medication. (Please try to be consistent in dosing) 06/23/2011 01/15/2014 Inactive Diflucan 100 mg Tab RxNorm: 162473 1 Tablet(s) PO QD 06/14/201107/02 Inactive cefdinir 300 mg Cap RxNorm: 203378 1 Capsule(s) PO BID 06/14/201106/2011 Inactive pravastatin 40 mg Tab RxNorm: 675626 1 Tablet(s) PO QD 05/25/201108/2011 Inactive warfarin 5 mg Tab RxNorm: 112513 Tablet(s) PO 05/25/2011 10/18/2011 In active TAKE ONE TABLET BY MOUTH EVERY DAY Toprol XL 200 mg tablet,extended release RxNorm: 656100 1 Table t(s) PO QD 03/05/2011 06/02/2011 Inactive spironolactone 25 mg tablet RxNorm: 723105 1 Tablet(s) PO QAM 02/2402/08/2012 Inactive omeprazole 40 mg capsule,delayed release RxNorm: 016902 1 Capsule(s) PO QD for stomach 01/06/2011 01/11/2012 Inactive for stomach warfarin 5 mg Tab RxNorm: 114491 1 Tablet(s) PO QD 12/17/2010 011 Inactive warfarin 5 mg Tab RxNorm: 936745 1 Tablet(s) PO QD 11/18/2010 011 Inactive spironolactone 25 mg Tab RxNorm: 672275 1 Tablet(s) PO QAM 0802/24/2011 Inactive Coumadin 6 mg Tab RxNorm: 742151 1 Tablet(s) PO QD 10/28/2010 011 Inactive May have generic hydrochlorothiazide 25 mg Tab RxNorm: 065205 1 Tablet(s) PO QAM 11/11/2010 Inactive Wellbutrin XL 300 mg 24 hr Tab RxNorm: 849604 1 Tablet(s) PO QD 09/14/2011 Inactive Septra DS 800 mg-160 mg Tab RxNorm: 453103 1 Tablet(s) PO BID 06/0806/17/2010 Inactive Pyridium 100 mg Tab RxNorm: 2285759 1 Tablet(s) PO TID 06/08/2010 Inactive Wellbutrin XL 300 mg 24 hr Tab RxNorm: 536848 1 Tablet(s) PO QD 05/201007/15/2010 Inactive hydroxyzine 25 mg Tab RxNorm: 289126 1 Tablet(s) PO QID prn itching--take routinely at bedtime. (pt. may not refil at this time but later) 05/20/2010 10/10/2011 Inactive Zyrtec 10 mg Tab RxNorm: 1513743 1 Tablet(s) PO BID 05/20/20102010 Inactive Coumadin 1 mg Tab RxNorm: 438251 1 Tablet(s) PO 6mg M-F, 7mg S-S 11/16/2010 Inactive hydroxyzine 25 mg Tab RxNorm: 428511 1 Tablet(s) PO QID prn itching--take routinely at bedtime 04/30/2010 05/19/2010 Inactive Toprol XL 200 mg 24 hr Tab RxNorm: 214438 1 Tablet(s) PO QD 011 06/23/2010 Inactive lisinopril-hydrochlorothiazide 10 mg-12.5 mg Tab RxNorm: 197 885 1 Tablet(s) PO QD 04/20/2010 04/29/2010 Inactive omeprazole 40 mg Cap, Delayed Release RxNorm: 596035 1 Capsule(s) PO QD for stomach 04/20/2010 08/17/2010 Inactive lisinopril-hydrochlorothiazide 10 mg-12.5 mg Tab RxNorm: 197 885 Tablet(s) PO 1QDAM - TAKE ONE TABLET BY MOUTH EVERY DAY IN THE MORNING 03/09/2010 Inactive lisinopril-hydrochlorothiazide 10 mg-12.5 mg Tab RxNorm: 197 885 1 Tablet(s) PO QD 02/27/2010 04/20/2010 Inactive Wellbutrin XL 300 mg 24 hr Tab RxNorm: 709038 1 Tablet(s) PO QD 05/21/2010 Inactive lisinopril-hydrochlorothiazide 10 mg-12.5 mg Tab RxNorm: 197 885 1 Tablet(s) PO QD 01/28/2010 02/26/2010 Inactive omeprazole 40 mg Cap, Delayed Release RxNorm: 872282 1 Capsule(s) PO QD for stomach 01/22/2010 04/20/2010 Inactive Altace 10 mg Cap RxNorm: 012592 1 Capsule(s) PO QD for BP 01/22/2010 03/22/2010 Inactive Coumadin 6 mg Tab RxNorm: 036032 1 Tablet(s) PO QD May have generic 12/03/2009 05/01/2010 Inactive Coumadin 6 mg Tab RxNorm: 301936 1 Tablet(s) PO 12/01/2009 12/02/2009 Inactive Coumadin 1 mg Tab RxNorm: 344170 1 Tablet(s) PO QD 11/28/2009 010 Inactive Coumadin 1 mg Tab RxNorm: 620473 1 Tablet(s) PO QD 07/02/2009 010 Inactive lisinopril-hydrochlorothiazide 20 mg-12.5 mg Tab RxNorm: 197 886 2 Tablet(s) PO QAM No Start Date 10/12/2010 Inactive Zofran ODT 4 mg disintegrating tablet RxNorm: 616381 1 Tablet(s) PO Q6H as needed for nausea No Start Date 09/14/2016 Inactive Wellbutrin XL 300 mg 24 hr Tab RxNorm: 026534 1 Tablet(s) PO QD No Start Date 02/02/2010 Inactive alprazolam 0.25 mg tablet RxNorm: 290580 1 Tablet(s) PO prior t o flight No Start Date 05/24/2017 Inactive hydrocodone-acetaminophen 5 mg-500 mg Tab RxNorm: 682708 1-2 Tablet(s) PO Q4H as needed for pain No Start Date 12/02/2010 Inactive Toprol XL 100 mg 24 hr Tab RxNorm: 882161 1 Tablet(s) PO QD No Star t Date 10/14/2013 Inactive Celebrex 200 mg capsule RxNorm: 345930 1 Capsule(s) PO QD No Start Date 05/22/2017 Inactive Flexeril 10 mg tablet RxNorm: 735009 1 Tablet(s) PO TID No Start Da te 04/02/2019 Inactive scopolamine 1 mg over 3 days transdermal patch RxNorm: 21150 2 1 TD take off in 72 hours. No Start Date 07/31/2017 Inactive [employer] Ultra Test strips RxNorm: Test blood sugar daily No S tart Date 04/23/2018 Inactive Medrol (Dale) 4 mg tablets in a dose pack RxNorm: 787118 Tablet(s) PO As directed No Start Date 01/15/2014 Inactive Coumadin 5 mg Tab RxNorm: 360664 1 Tablet(s) PO QD No Start Date 06/19 Inactive Pepcid 40 mg Tab RxNorm: 887273 1 Tablet(s) PO QD No Start Date 06/23 Inactive prednisone 10 mg Tab RxNorm: 048441 1 Tablet(s) PO BID No Start Date 06/23/2010 Inactive spironolactone 25 mg tablet RxNorm: 049853 1 Tablet(s) PO QAM No St art Date 09/26/2018 Inactive scopolamine 1.5 mg 72 hr Transderm Patch RxNorm: 771062 TD Apply 1 patch behind ear every 72 hours, replace after 3 days. No Start Date 11/07/2012 Inacti ve azithromycin 250 mg Tab RxNorm: 857066 Tablet(s) PO 2 t abs on day one and one tab on days 2-5. (antibiotic) No Start Date 10/10/2011 Inactive Medrol (Dale) 4 mg Tabs in a Dose Pack RxNorm: 566671 1 Tablet(s) PO as directed. (steroid pack) No Start Date 10/10/2011 Inactive Lovenox 40 mg/0.4 mL subcutaneous syringe RxNorm: 657316 40 Mil ligram(s) SQ QD No Start Date 05/04/2018 Inactive Celebrex 200 mg capsule RxNorm: 027122 1 Capsule(s) PO BID as n eeded for pain No Start Date 01/13/2017 Inactive warfarin 1 mg tablet RxNorm: 779394 1 Tablet(s) PO As directed on Tue and No Start Date 08/10/2012 Inactive cefuroxime axetil 500 mg Tab RxNorm: 205017 1 Tablet(s) PO BID No S tart Date 06/13/2011 Inactive Lovenox 40 mg/0.4 mL subcutaneous syringe RxNorm: 293729 40 Mil ligram(s) SQ QD No Start Date 01/26/2018 Inactive Coumadin 5 mg tablet RxNorm: 315260 1 Tablet(s) PO QD No Start Date 0 08/13/2013 Inactive Medrol (Dale) 4 mg tablets in a dose pack RxNorm: 089756 Tablet(s) PO as directed No Start Date 01/17/2014 Inactive Coumadin 6 mg tablet RxNorm: 178674 1 Tablet(s) PO QD No Start Date 0 06/20/2016 Inactive warfarin 5 mg tablet RxNorm: 768942 1 Tablet(s) PO QD No Start Date 0 12/02/2011 Inactive Medrol (Dale) 4 mg Tabs in a Dose Pack RxNorm: 648170 Tablet(s) PO as directed No Start Date 06/23/2010 Inactive Flonase 50 mcg/actuation nasal spray,suspension RxNorm: 8963 23 2 [place] NASAL BID No Start Date 12/05/2014 Inactive Pepcid 20 mg tablet RxNorm: 072541 1 Tablet(s) PO BID as needed No Start Date 11/02/2012 Inactive spironolactone 25 mg tablet RxNorm: 214512 1 Tablet(s) PO QAM No St art Date 04/02/2019 Inactive Medication Administered No Medication Administered data Immunizations No Immunization data Results Observation Observation Code Item Item Code Result Date S ervice Location MICROALBUMIN URINE RANDOM 94796 CREAT MG/D 139 MG/DL Unknown MICROALBUMIN URINE RANDOM 07200 CRE/100 1.39 G/L 12/20 Unknown Procedures Procedure Codes Date URINALYSIS NONAUTO W/O SCOPE CPT-4: 96991 09/27/2018 URINE CULTURE/ COLONY COUNT CPT-4: 55470 09/27/2018 URINALYSIS NONAUTO W/O SCOPE CPT-4: 10864 10/13/2017 URINE CULTURE/ COLONY COUNT CPT-4: 67176 10/13/2017 STREP A ASSAY W/OPTIC CPT-4: 05192 06/21/2016 STREP A ASSAY W/OPTIC CPT-4: 08467 06/24/2014 THER/PROPH/DIAG INJ SC/IM CPT-4: 62286 03/22/2014 METHYLPREDNISOLONE 40 MG INJ CPT-4: J1030 03/22/2014 TRIAMCINOLONE ACET INJ NOS CPT-4: J3301 03/22/2014 URINALYSIS NONAUTO W/O SCOPE CPT-4: 83190 10/19/2013 URINE CULTURE/ COLONY COUNT CPT-4: 71142 10/19/2013 CEFTRIAXONE SODIUM INJECTION CPT-4: J0696 03/02/2013 THER/PROPH/DIAG INJ SC/IM CPT-4: 63584 03/02/2013 CEFTRIAXONE SODIUM INJECTION CPT-4: J0696 03/01/2013 THER/PROPH/DIAG INJ SC/IM CPT-4: 29411 03/01/2013 THER/PROPH/DIAG INJ SC/IM CPT-4: 39945 03/01/2013 METHYLPREDNISOLONE 40 MG INJ CPT-4: J1030 03/01/2013 TRIAMCINOLONE ACET INJ NOS CPT-4: J3301 03/01/2013 MICROALBUMIN QUANTITATIVE CPT-4: 31201 01/11/2013 URINE CULTURE/ COLONY COUNT CPT-4: 79552 05/04/2012 URINALYSIS NONAUTO W/O SCOPE CPT-4: 30829 05/04/2012 URINE CULTURE/ COLONY COUNT CPT-4: 17284 05/29/2010 TRIAMCINOLONE ACET INJ NOS CPT-4: J3301 05/20/2010 METHYLPREDNISOLONE 40 MG INJ CPT-4: J1030 05/20/2010 THER/PROPH/DIAG INJ SC/IM CPT-4: 94207 05/20/2010 Vital Signs Date Vital 04/03/2019 Blood [...] 1: 134/78 Code: 8480-6 BMI: 35.1 Code: 67843-1 Heart Rate 1: 76 bpm Height: 5'9" Respiratory Rate: 20 bpm Temperature: 36 .6 (C) / 97.8 (F) Weight: 238 lbs 12/27/2017 Blood Pressure 1: 126/64 Code: 8480-6 BMI: 34.7 Code: 29718-2 Heart Rate 1: 72 bpm Height: 5'9" Respiratory Rate: 20 bpm Temperature: 36 .8 (C) / 98.2 (F) Weight: 235 lbs 10/12/2017 Blood Pressure 1: 142/80 Code: 8480-6 BMI: 35.1 Code: 61278-1 Heart Rate 1: 98 bpm Height: 5'9" Respiratory Rate: 22 bpm SpO2: 100% Tempera ture: 36.5 (C) / 97.7 (F) Weight: 238 lbs 09/16/2017 Blood Pressure 1: 136/82 Code: 8480-6 BMI: 34.1 Code: 01324-7 Heart Rate 1: 82 bpm Height: 5'9" Respiratory Rate: 18 bpm SpO2: 96% Tempera ture: 36.3 (C) / 97.3 (F) Weight: 231 lbs 05/25/2017 Blood Pressure 1: 122/82 Code: 8480-6 BMI: 32.3 Code: 61079-4 Heart Rate 1: 116 bpm Height: 5'9" Respiratory Rate: 20 bpm SpO2: 98% Tempera ture: 35.6 (C) / 96.1 (F) Weight: 219 lbs 01/03/2017 Blood Pressure 1: 126/78 Code: 8480-6 BMI: 33.4 Code: 39954-1 Heart Rate 1: 72 bpm Height: 5'9" Respiratory Rate: 20 bpm Temperature: 36 .8 (C) / 98.2 (F) Weight: 226 lbs 09/23/2016 Blood Pressure 1: 126/82 Code: 8480-6 BMI: 33.8 Code: 92103-2 Heart Rate 1: 80 bpm Height: 5'9" Respiratory Rate: 20 bpm SpO2: 97% Tempera ture: 36.8 (C) / 98.2 (F) Weight: 229 lbs 09/03/2016 Blood Pressure 1: 188/64 Code: 8480-6 Bl ood Pressure 2: 166/92 Code: 8480-6 BMI: 34.4 Code: 76977-8 Heart Rate 1: 66 bpm Height: 5'9" Res piratory Rate: 20 bpm SpO2: 98% Temperature: 35.7 (C) / 96.2 (F) Weight: 233 lbs 07/08/2016 Blood Pressure 1: 134/82 Code: 8480-6 Heart Rate 1: 64 bpm Height: 5'9" Respiratory Rate: 20 bpm SpO2: 97% Temperature: 36.6 (C) / 97.8 (F) Weight: 06/21/2016 Blood Pressure 1: 112/68 Code: 8480-6 BMI: 33.8 Code: 68564-8 Heart Rate 1: 64 bpm Height: 5'9" Respiratory Rate: 20 bpm SpO2: 95% Tempera ture: 36.3 (C) / 97.3 (F) Weight: 229 lbs 02/23/2016 Blood Pressure 1: 128/78 Code: 8480-6 BMI: 33.4 Code: 14313-4 Heart Rate 1: 74 bpm Height: 5'9" [...] 1: 122/80 Code: 8480-6 BMI: 32.2 Code: 63143-4 Heart Rate 1: 80 bpm Height: 5'9" Respiratory Rate: 20 bpm Temperature: 37 .0 (C) / 98.6 (F) Weight: 218 lbs 08/09/2014 Blood Pressure 1: 132/84 Code: 8480-6 BMI: 33.1 Code: 35496-3 Heart Rate 1: 72 bpm Height: 5'9" Respiratory Rate: 20 bpm Temperature: 36 .7 (C) / 98.0 (F) Weight: 224 lbs 06/24/2014 Blood Pressure 1: 132/80 Code: 8480-6 BMI: 32.8 Code: 70569-2 Heart Rate 1: 68 bpm Height: 5'9" Respiratory Rate: 20 bpm Temperature: 36 .4 (C) / 97.6 (F) Weight: 222 lbs 03/22/2014 Blood Pressure 1: 128/84 Code: 8480-6 BMI: 32.5 Code: 62398-1 Heart Rate 1: 78 bpm Height: 5'9" Respiratory Rate: 22 bpm Temperature: 36 .0 (C) / 96.8 (F) Weight: 220 lbs 03/05/2014 Blood Pressure 1: 124/78 Code: 8480-6 BMI: 31.9 Code: 11036-5 Heart Rate 1: 82 bpm Height: 5'9" Respiratory Rate: 20 bpm Temperature: 35 .8 (C) / 96.4 (F) Weight: 216 lbs 01/16/2014 Blood Pressure 1: 116/68 Code: 8480-6 BMI: 33.8 Code: 58276-4 Heart Rate 1: 72 bpm Height: 5'7" Respiratory Rate: 20 bpm Temperature: 36 .6 (C) / 97.9 (F) Weight: 216 lbs 05/10/2013 Blood Pressure 1: 124/86 Code: 8480-6 BMI: 34.3 Code: 60407-6 Heart Rate 1: 84 bpm Height: 5'7" [...] 1: 116/84 Code: 8480-6 BMI: 33.1 Code: 19904-5 Heart Rate 1: 64 bpm Height: 5'9" Respiratory Rate: 20 bpm Temperature: 36 .4 (C) / 97.6 (F) Weight: 224 lbs 01/11/2013 Blood Pressure 1: 126/84 Code: 8480-6 BMI: 35.3 Code: 13435-9 Heart Rate 1: 68 bpm Height: 5'9" Respiratory Rate: 20 bpm Temperature: 36 .7 (C) / 98.1 (F) Weight: 239 lbs 11/03/2012 Blood Pressure 1: 104/70 Code: 8480-6 BMI: 34.4 Code: 63164-2 Heart Rate 1: 72 bpm Height: 5'9" Respiratory Rate: 20 bpm Temperature: 36 .8 (C) / 98.3 (F) Weight: 233 lbs 05/04/2012 Blood Pressure 1: 124/74 Code: 8480-6 BMI: 33.7 Code: 46203-5 Heart Rate 1: 84 bpm Height: 5'9" Temperature: 36.3 (C) / 97.3 (F) Weight: 228 lbs 10/11/2011 Blood Pressure 1: 110/70 Code: 8480-6 BMI: 33.7 Code: 67649-3 Heart Rate 1: 64 bpm Height: 5'9" Temperature: 36.8 (C) / 98.3 (F) Weight: 228 lbs 06/23/2011 Blood Pressure 1: 114/70 Code: 8480-6 BMI: 33.4 Code: 15379-1 Heart Rate 1: 80 bpm Height: 5'9" Respiratory Rate: 20 bpm Temperature: 36 .7 (C) / 98.0 (F) Weight: 226 lbs 06/14/2011 Blood Pressure 1: 118/74 Code: 8480-6 BMI: 33.4 Code: 07181-6 Heart Rate 1: 80 bpm Height: 5'9" [...] 1: 126/82 Code: 8480-6 BMI: 32.6 Code: 47885-8 Heart Rate 1: 68 bpm Height: 5'9" [...] 1: 140/92 Code: 8480-6 BMI: 31.3 Code: 39436-0 Heart Rate 1: 60 bpm Height: 5'10" [...] upper back on 08/13/16 while camping around [place], [place]. Patient states is tender around tick [...] stop Lisinopril HCT follow up 06/24/2010 hospital [facility], still on Septra DS and Levaquin [...] E11.9] Diagnosis: Essential hypertension[ICD10: I10] Jessica OBRIEN [employer] CPT-4: 85828 04/03/2019 ([id number]) OFFICE/OUTPATIENT VISIT EST Diagnosis: Gastro-esophageal reflux disease without esophagitis[ICD10: K21.9] Diagnosis: Urinary tract infection, site not specified[ICD10: N39.0] Diagnosis: Ventral hernia without obstruction or gangrene[ICD10: K43.9] Jessica VO [employer] CPT-4: 79104 09/27/2018 ([id number]) OFFICE/OUTPATIENT VISIT EST Diagnosis: Essential (primary) hypertension[ICD10: I10] Diagnosis: Type 2 diabetes mellitus without complications[ICD10: E11.9] Diagnosis: Carpal tunnel syndrome, right upper limb[ICD10: G56.01] Diagnosis: Primary insomnia[ICD10: F51.01] Jessica VO [employer] CPT-4: 44939 04/24/2018 ([id number]) OFFICE/OUTPATIENT VISIT EST Diagnosis: Type 2 diabetes mellitus without complications[ICD10: E11.9] Diagnosis: Mixed hyperlipidemia[ICD10: E78.2] Diagnosis: Essential (primary) hypertension[ICD10: I10] Diagnosis: Pain in unspecified joint[ICD10: M25.50] Jessica GEE [facility] CPT-4: 01497 12/27/2017 ([id number]) NURSE/OUTPATIENT VISIT EST Diagnosis: Hematuria, unspecified[ICD10: R31.9] [facility] 21984 10/13/2017 ([id number]) OFFICE/OUTPATIENT VISIT EST Diagnosis: Pleurodynia[ICD10: R07.81] Sofi CAMPUZANO [facility] CPT-4: 88675 10/12/2017 ([id number]) OFFICE/OUTPATIENT VISIT EST Diagnosis: Acute bronchitis, unspecified[ICD10: J20.9] [facility]: 22152 09/16/2017 ([id number]) OFFICE/OUTPATIENT VISIT EST Diagnosis: Other specified postprocedural states[ICD10: Z98.890] Diagnosis: Cellulitis of neck[ICD10: L03.221] Diagnosis: Tachycardia, unspecified[ICD10: R00.0] [facility] 82512 05/25/2017 ([id number]) OFFICE/OUTPATIENT VISIT EST Diagnosis: Lumbago with sciatica, right side[ICD10: M54.41] Diagnosis: Pain in unspecified joint[ICD10: M25.50] [facility]: 50763 01/03/2017 ([id number]) OFFICE/OUTPATIENT VISIT EST Diagnosis: Bitten or stung by nonvenomous insect and other nonvenomous arthropods, subsequent encounter[ICD10: W57.XXXD] Diagnosis: Essential (primary) hypertension[ICD10: I10] Diagnosis: Low back pain[ICD10: M54.5] Jessica SMITHLINE S. Lizz SOLOMON [facility] CPT-4: 49942 09/23/2016 OFFICE/OUTPATIENT VISIT EST Diagnosis: Bitten or stung by nonvenomous insect and other nonvenomous arthropods, initial encounter[ICD10: W57.XXXA] Diagnosis: Essential (primary) hypertension[ICD10: I10] Kaitlynn Mosley JESSICA GEE [facility] CPT-4: 60298 09/03/2016 ([id number]) OFFICE/OUTPATIENT VISIT EST Diagnosis: Low back pain[ICD10: M54.5] Diagnosis: Radiculopathy, lumbosacral region[ICD10: M54.17] Jessica GEE [facility] CPT-4: 70178 07/08/2016 ([id number]) OFFICE/OUTPATIENT VISIT EST Diagnosis: Acute pharyngitis, unspecified[ICD10: J02.9] Jessica GEE [facility] CPT-4: 44769 06/21/2016 ([id number]) OFFICE/OUTPATIENT VISIT EST Diagnosis: Cough[ICD10: R05] Diagnosis: Fever, unspecified[ICD10: R50.9] Janiya GEE [facility] CPT-4: 09520 02/23/2016 ([id number]) OFFICE/OUTPATIENT VISIT EST Diagnosis: Acute sinusitis, unspecified[ICD10: J01.90] Jessica GEE [facility] CPT-4: 60884 02/16/2016 OFFICE/OUTPATIENT VISIT EST Diagnosis: Type 2 diabetes mellitus without complications[ICD10: E11.9] Diagnosis: Gastro-esophageal reflux disease without esophagitis[ICD10: K21.9] Diagnosis: Ventral hernia without obstruction or gangrene[ICD10: K43.9] Suki GEE [employer] [facility] CPT-4: 19200 02/11/2015 OFFICE/OUTPATIENT VISIT EST 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] Diagnosis: Essential (primary) hypertension[ICD10: I10] Suki GEE [facility] CPT-4: 10514 01/28/2015 OFFICE/OUTPATIENT VISIT EST Diagnosis: SINUSITIS, ACUTE[ICD9: 461.9] Kaitlynnruthie GEE [facility] CPT-4: 39479 12/06/2014 ([id number]) OFFICE/OUTPATIENT VISIT EST Diagnosis: SINUSITIS, ACUTE[ICD9: 461.9] Kaitlynn GEE DO [facility] CPT-4: 61455 08/09/2014 ([id number]) OFFICE/OUTPATIENT VISIT EST Diagnosis: TONSILLITIS, ACUTE[ICD9: 463] Suki SMITHLINE Monica GEE DO [facility] CPT-4: 85532 06/24/2014 OFFICE/OUTPATIENT VISIT EST Diagnosis: SINUSITIS, ACUTE[ICD9: 461.9] Diagnosis: EUSTACHIAN TUBE DYSFUNCTION[ICD9: 381.81] Diagnosis: COUGH[ICD9: 786.2] Suki SMITHLINE Monica GEE [facility] CPT-4: 80917 03/22/2014 OFFICE/OUTPATIENT VISIT EST Diagnosis: Elbow pain, right[ICD9: 719.42] Suki SMITHLINE Monica GEE [facility] CPT-4: 82174 03/05/2014 OFFICE/OUTPATIENT VISIT EST Diagnosis: SINUSITIS, ACUTE[ICD9: 461.9] Jessica SMITHLINE Monica GEE [facility] CPT-4: 41442 01/16/2014 ([id number]) OFFICE/OUTPATIENT VISIT EST Diagnosis: GROSS HEMATURIA[ICD9: 599.71] Jessica SMITHLINE Monica GEE [facility] CPT-4: 17412 10/19/2013 ([id number]) OFFICE/OUTPATIENT VISIT EST Diagnosis: DM W/O COMPLICATION TYPE II[ICD9: 250.00] Diagnosis: HYPERLIPIDEMIA NEC/NOS[ICD9: 272.4] Jessicashannan SMITHGautam KING DomingaLloyd LUPILLO [facility] CPT-4: 13393 05/10/2013 ([id number]) OFFICE/OUTPATIENT VISIT EST Diagnosis: SINUSITIS, ACUTE[ICD9: 461.9] Jessica Michaelcorby VO DomingaLloyd [facility] CPT-4: 43740 04/17/2013 OFFICE/OUTPATIENT VISIT EST Diagnosis: OTITIS MEDIA NOS[ICD9: 382.9] Diagnosis: COUGH[ICD9: 786.2] Suki GEE DO [facility] CPT-4: 99318 03/05/2013 OFFICE/OUTPATIENT VISIT EST Diagnosis: COUGH[ICD9: 786.2] Diagnosis: BRONCHITIS, ACUTE[ICD9: 466.0] Suki GEE DO [facility] CPT-4: 91609 03/02/2013 OFFICE/OUTPATIENT VISIT EST Diagnosis: COUGH[ICD9: 786.2] Diagnosis: OTITIS MEDIA NOS[ICD9: 382.9] Diagnosis: BRONCHITIS, ACUTE[ICD9: 466.0] Suki GEE DO [facility] CPT-4: 06540 03/01/2013 OFFICE/OUTPATIENT VISIT EST Diagnosis: DM W/O COMPLICATION TYPE II, UNCONTROLLED[ICD9: 250.02] Jessica GEE [facility] CPT-4: 17505 02/22/2013 ([id number]) PREV VISIT EST AGE 40-64 Diagnosis: DM W/O COMPLICATION TYPE II, UNCONTROLLED[ICD9: 250.02] Diagnosis: HYPERTENSION[ICD9: 401.9] Diagnosis: ROUTINE MEDICAL EXAM[ICD9: V70.0] Jessica GEE [facility] CPT-4: 64692 01/11/2013 OFFICE/OUTPATIENT VISIT EST Diagnosis: HZ (HERPES ZOSTER)[ICD9: 053.9] Kaitlynn Mosley JESSICA GEE [facility] CPT-4: 83662 11/03/2012 OFFICE/OUTPATIENT VISIT EST Diagnosis: URINARY TRACT INFECTION[ICD9: 599.0] Diagnosis: GERD[ICD9: 530.81] Diagnosis: PHARYNGITIS, ACUTE[ICD9: 462] Jessica GEE [facility] CPT-4: 92228 05/04/2012 OFFICE/OUTPATIENT VISIT EST Diagnosis: COUGH[ICD9: 786.2] Diagnosis: SINUSITIS, ACUTE[ICD9: 461.9] Diagnosis: PHARYNGITIS, ACUTE[ICD9: 462] Jessica GEE [facility] CPT-4: 39310 10/11/2011 OFFICE/OUTPATIENT VISIT EST Diagnosis: COUGH[ICD9: 786.2] Diagnosis: SINUSITIS, ACUTE[ICD9: 461.9] Diagnosis: PHARYNGITIS, ACUTE[ICD9: 462] Diagnosis: ALLERGIC RHINITIS[ICD9: 477.9] Xiomara VO S . ORENDER DO [facility] CPT-4: 17453 06/23/2011 OFFICE/OUTPATIENT VISIT EST Diagnosis: COUGH[ICD9: 786.2] Diagnosis: SINUSITIS, ACUTE[ICD9: 461.9] Diagnosis: PHARYNGITIS, ACUTE[ICD9: 462] Jessica Michaelaaronderek JESSICA S. ORENDER DO [facility] CPT-4: 42378 06/14/2011 OFFICE/OUTPATIENT VISIT EST Diagnosis: SINUSITIS, ACUTE[ICD9: 461.9] Diagnosis: PHARYNGITIS, ACUTE[ICD9: 462] Jessica Michaelaaronderek JESSICA S. ORENDER DO [facility] CPT-4: 94686 12/02/2010 OFFICE/OUTPATIENT VISIT EST Diagnosis: HYPERTENSION[ICD9: 401.9] Diagnosis: HYPERLIPIDEMIA NEC/NOS[ICD9: 272.4] Diagnosis: DERMATITIS NOS[ICD9: 692.9] Jessica VO S. O RENDER DO [facility] CPT-4: 50844 11/12/2010 OFFICE/OUTPATIENT VISIT EST Jessica VO S. ORE NDER DO [facility] CPT- 4: 46428 10/13/2010 ([id number]) OFFICE/OUTPATIENT VISIT EST Jessica HARKINS UELINE S. ORENDER DO [facility] CPT-4: 83517 06/24/2010 ([id number]) OFFICE/OUTPATIENT VISIT EST Jessica HARKINS UELINE S. ORENDER DO [facility] CPT-4: 44780 06/08/2010 ([id number]) OFFICE/OUTPATIENT VISIT EST Xiomara VO S Lloyd ORENDER DO [facility] CPT-4: 50849 05/20/2010 ([id number]) OFFICE/OUTPATIENT VISIT EST Jessica HARKINS UJOANNA SLloyd ORENDER DO [facility] CPT-4: 20704 04/30/2010 ([id number]) OFFICE/OUTPATIENT VISIT, EST Jessica MANZANO SLloyd ORENDER DO [facility] CPT-4: 69452 01/22/2010 Plan of Care Planned Activity Notes Codes Status Date Visit Diagnosis Plan: Type 2 diabetes mellitus without complications Discussion: Lab discussed Add jardience 10mg po q AM Hold spironolactone Accuchecks daily alternating times Fwup 1 month with BS readings Notify if any signs of yeast infection ICD-9 : 250.00 ICD-10 : E11.9 04/03/2019 Appointment: Jessica Gee WPtel: [address] [place], [place] [phone] FOLLOW UP 04/03/2019 Visit Diagnosis Plan: Urinary [...] : K21.9 09/27/2018 Appointment: Jessica Gee WPtel: [address] [place], [place] [phone] ACUTE ILLNESS 09/27/2018 Visit Diagnosis Plan: Carpal [...] F51.01 04/24/2018 Appointment: [facility] [phone] [id number] [facility] 04/24/2018 Patient Education: celecoxib- [employer] [id number] Completed 04/24/2018 Patient Education: amitriptyline- [employer] [id number] Completed 04/24/2018 Visit Diagnosis Plan: Type 2 [...] M25.50 12/27/2017 Appointment: [facility] Gee [facility]el[id number] [facility] 12/27/2017 Patient Education: Patient Medication Summary Completed 12/27/2017 Patient Education: Patient Medication Summary Completed 12/19/2017 Care Plan: MAMMOGRAM BOTH BREASTS LOINC : 42561-0 Pending 12/19/2017 Patient Education: Patient Medication Summary Completed 12/16/2017 Care Plan: ASSAY THYROID STIM HORMONE Pen ding 12/16/2017 Care Plan: ASSAY OF FREE THYROXINE Pendin g 12/16/2017 Care Plan: LIPID PANEL LOINC : 01639-1 Pending 12/16/2017 Care Plan: CBC Pending 12/16/2017 Care Plan: A1C HPLC LOINC : 20444-2 Pending 12/16/2017 Patient Education: Patient Medication Summary Completed 10/17/2017 Care Plan: CT ANGIOGRAPHY CHEST LOINC : 22915-7 Pending 10/17/2017 Patient Education: Patient Medication Summary Completed 10/14/2017 Care Plan: CT ANGIOGRAPHY CHEST LOINC : 96096-2 Pending 10/14/2017 Appointment: Jessica Gee WPtel: [address] [place], [place] [id number] UA 10/13/2017 Patient Education: Patient Medication Summary Completed 10/13/2017 Visit Diagnosis Plan: Pleurodynia Discussion: patient sent for stat cxray. medrol dose pack prescribed for symptom management. instructed to perform deep breathing exercises at home to prevent atelectasis or pneumonia. will notify pa tient of results of xray and order additional tests/medications as needed. ICD-9 : 786.50 ICD-10 : R07.81 10/12/2017 Appointment: Sofi Gresham [address] [place] [address] ACUTE ILLNESS 10/12/2017 Patient Education: Patient Medication [...] : J20.9 09/16/2017 Appointment: Sofi Gresham [address] [id number] ACUTE ILLNESS 09/16/2017 Patient Education: Patient Medication Summary Completed 09/16/2017 Appointment: Jessica Gee WPtel: [address] [place], [place] [phone] CANCELED 08/10/2017 Visit Diagnosis Plan: Cellulitis of [...] R00.0 05/25/2017 Appointment: [facility]ee [facility]el[phone] [id number] [facility] 05/25/2017 Patient Education: Patient Medication Summary Completed 05/25/2017 Visit Diagnosis Plan: Lumbago with sciatica, right britton e Discussion: Check arthritis panel Patient awaiting neck surgery before surgery will consider back surgery ICD-9 : 724.2 ICD-10 : M54.41 01/03/2017 Appointment: Jessica Gee WPtel: [phone] [id number] ACUTE ILLNESS 01/03/2017 Patient Education: Patient Medication Summary Completed 01/03/2017 Patient Education: Patient Medication Summary Completed 12/16/2016 Care Plan: MAMMOGRAM SCREENING LOINC : 2 6347-5 Pending 12/16/2016 Patient Education: Patient Medication Summary Completed 10/07/2016 Care Plan: MRI LUMBAR SPINE W/O & W/DYE LOINC : 97905-7 Pending 10/07/2016 Visit Diagnosis Plan: Essential (primary) [...] W57.XXXD 09/23/2016 Appointment: [facility]ee [facility]el[id number] 09/22 confirmed WORK IN 09/23/2016 Patient Education: Patient Medication Summary Completed 09/23/2016 Visit Plan: Tick panel at [facility] Increa se spironolactone to 2 po am (New Rx sent) Take B/P at home/work and also come to office next week for recheck Will await lab results before starting any antibiotic 09/03/2016 Appointment: Kaitlynn Mosley WPtel: [address] [place], [place] [id number] ACUTE ILLNESS 09/03/2016 Patient Education: Patient Medication Summary Completed 09/03/2016 Visit Diagnosis Plan: Low back pain Discussion: Celebr ex BID PT Continue stretches at home L/S xray Follow Up: 1 months ICD-9 : 724.2 ICD-10 : M54.5 07/08/2016 Appointment: Jessica Gee WPtel: [address] [place] [address] ACUTE ILLNESS 07/08/2016 Patient Education: Patient Medication Summary Completed 07/08/2016 Care Plan: X-RAY EXAM L-S SPINE 2/3 VWS LOINC : 80142-1 Pending 07/08/2016 Visit Plan: Supportive care. Rest, Fluid s, Tylenol/Motrin prn fever or bodyaches. Notify if worsening symptoms.New toothebrush in 5 days 06/21/2016 Visit NOS Plan: Plan Notes: Supportive care. Rest, Fluids... 06/21/2016 Visit Diagnosis Plan: Acute pharyngitis, unspecified D iscussion: Strep Negative Supportive Care May use zyrtec 10mg q HS ICD-9 : 462 ICD-10 : J02.9 06/21/2016 Appointment: Jessica Gee WPtel: [address] [place] [address] ACUTE ILLNESS 06/21/2016 Patient Education: Patient Medication Summary Completed 06/21/2016 Visit Plan: No pulseox last week to comp are to today, but she does sound diminished today Studies as above ordered Continue cefdinir until results received Increase albuterol treatments to q4-6hrs PRN Continue supportive care 02/23/2016 Appointment: Janiya Gregorio [address] [place] [address] ACUTE ILLNESS 02/23/2016 Patient Education: Patient Medication Summary Completed 02/23/2016 Care Plan: CHEST X-RAY 2VW FRONTAL&LATL LOINC : 86031-9 Pending 02/23/2016 Visit Plan: Saline nasal flushes prn. Ty lenol/Motrin prn headache. Notify if persists/symptoms worsening. 02/16/2016 Appointment: Jessica Gee WPtel: [address] [place], [place] [phone] ACUTE ILLNESS 02/16/2016 Patient Education: Patient Medication Summary Completed 02/16/2016 Visit Plan: Discussed labs Continue Topr ol at 200 mg PO daily Increase Aciphex to BID Notify if increase of Aciphex does not give relief. Repeat PT/INR in 2 weeks. 02/11/2015 Appointment: Suki Barahona WPtel: [address] [place], [place] [phone] 02/10 confirmed ~sl FOLLOW UP 02/11/2015 Patient Education: Patient Medication Summary Completed 02/11/2015 Patient Education: Patient Medication Summary Completed 02/06/2015 Care Plan: POC PROTIME/INR LOINC : 81744 -6 Pending 02/06/2015 Visit Plan: Increase Toprol XL 200 mg to one full tablet daily (is currently taking only 1/2 tablet) To for EKG today Monitor daily BP Notify of any changes- increased numbness, weakness, headache etc. 01/28/2015 Appointment: Suki Barahona WPtel: [address] [place] [address] ACUTE ILLNESS 01/28/2015 Patient Education: Patient Medication Summary Completed 01/28/2015 Visit Plan: ERx Amoxicillin and Flonase Nasal saline, humidified air Facial heat or cold packs for comfort Increase fluids/rest Discussed s/s of worsening, go to over weekend if these occur. 12/06/2014 Appointment: Kaitlynn Mosley WPtel: [address] [place], [place] [phone] ACUTE ILLNESS 12/06/2014 Patient Education: Patient Medication Summary Completed 12/06/2014 Appointment: Kaitlynn Mosley WPtel: [address] [place], [place] [phone] ACUTE ILLNESS 08/09/2014 Patient Education: Patient Medication Summary Completed 08/09/2014 Appointment: Suki Barahona WPtel: [address] [place], [place] [phone] ACUTE ILLNESS 06/24/2014 Patient Education: Patient Medication Summary Completed 06/24/2014 Appointment: Suki Barahona WPtel: [address] [place] [address] ACUTE ILLNESS 03/22/2014 Patient Education: Patient Medication Summary Completed 03/22/2014 Patient Education: [employer] - Antibi otics, Analgesics 18+, Oral Contraceptives F 18+ Completed 03/22/2014 Appointment: Suki Barahona WPtel: [address] [place], [place] [phone] FOLLOW UP 03/05/2014 Patient Education: Patient Medication Summary Completed 03/05/2014 Visit Plan: Saline nasal flushes prn. Ty lenol/Motrin prn headache. Notify if persists/symptoms worsening. Restart flonase 01/16/2014 Appointment: Jessica Gee WPtel: [address] [place] [address] ACUTE ILLNESS 01/16/2014 Patient Education: Patient Medication Summary Completed 01/16/2014 Appointment: Jessica Gee WPtel: [address] [place] [address] 10/19/2013 Patient Education: Patient Medication Summary Completed 10/19/2013 Appointment: Jessica Gee WPtel: [address] [place], [place] [phone] 08/08 patient canceled appt and said will call back to [facility] FOLLOW UP 08/09/2013 Visit Plan: Increase Coumadin to 6mg M-F and stay on 5mg Sat, Sun Add lipids to labs Check PT/INR in 3wks Continue metfromin at current dose and accuchecks 05/10/2013 Appointment: Jessica Gee WPtel: [address] [place], [place] [phone] 05/09 FOLLOW UP 05/10/2013 Patient Education: Patient Medication Summary Completed 05/10/2013 Visit Plan: Saline nasal flushes prn. Ty lenol/Motrin prn headache. Notify if persists/symptoms worsening. 04/17/2013 Appointment: Jessica Gee WPtel: [address] [place] [address] ACUTE ILLNESS 04/17/2013 Patient Education: Patient Medication Summary Completed 04/17/2013 Appointment: Suki Barahona WPtel: [address] [place] [address] FOLLOW UP 03/05/2013 Patient Education: Patient Medication Summary Completed 03/05/2013 Appointment: Suki Barahona WPtel: [address] [place] [address] FOLLOW UP 03/02/2013 Patient Education: Patient Medication Summary Completed 03/02/2013 Appointment: Suki Barahona WPtel: [address] [place] [address] ACUTE ILLNESS 03/01/2013 Patient Education: Patient Medication Summary Completed 03/01/2013 Visit Plan: Continue metformin and accuc hecks Add fish oil 1gram daily Check HbA1C, CMP in 2mos then fwup 02/22/2013 Appointment: Jessica Gee WPtel: [address] [place] [address] 02/21 work FOLLOW UP 02/22/2013 Patient Education: Patient Medication Summary Completed 02/22/2013 Visit Plan: Start Metformin Start Accuch ecks daily alternating times Will go for dilated eye exam once BS more stabilized Diabetic foot care discussed Diabetic diet info given 01/11/2013 Appointment: Jessica Gee WPtel: [address] [place] [address] FOLLOW UP 01/11/2013 Patient Education: Patient Medication Summary Completed 01/11/2013 Appointment: Kaitlynn Mosley WPtel: [address] [place] [address] ACUTE ILLNESS 11/03/2012 Patient Education: Patient Medication Summary Completed 11/03/2012 Appointment: Xiomara Rodriguez WPtel: [address] [place] [address] ACUTE ILLNESS 05/04/2012 Patient Education: Patient Medication Summary Completed 05/04/2012 Visit Plan: pt reports that she always g ets yeast infections. Discussed that the antifungal can cause problems/increased bleeding with Coumdin. Pt. will start with probiotics and only take the Diflucan if needed. Cefdinir. 10/11/2011 Appointment: Xiomara Rodriguez WPtel: [address] [place] [address] ACUTE ILLNESS 10/11/2011 Patient Education: Patient Medication Summary Completed 10/11/2011 Appointment: Xiomara Rodriguez WPtel: [address] [place] [address] FOLLOW UP 06/23/2011 Patient Education: Patient Medication Summary Completed 06/23/2011 Visit Plan: Will prescribe an antibiotic and diflucan. Pt. reports that she frequently gets yeast infection. Discussed that she will notify if any symptoms persist. Pt. reports that her relatives have recently been hospitalized with pneumonia. 06/14/2011 Appointment: Xiomara Rodriguez WPtel: [address] [place] [address] ACUTE ILLNESS 06/14/2011 Patient Education: Patient Medication Summary Completed 06/14/2011 Visit Plan: sample of veramyst. Cefuroxi me axetil. Pt. will focus on hydration and rest. Discussed comfort measures and monitoring for worsening symptoms. 12/02/2010 Appointment: Xiomara Rodriguez WPtel: [address] [place] [address] ACUTE ILLNESS 12/02/2010 Patient Education: Patient Medication Summary Completed 12/02/2010 Visit Plan: Change HCTZ to spironolacton e will start zocor in 1 mo BP med in 1mo 11/12/2010 Appointment: Jessica Gee WPtel: [address] [place] [address] FOLLOW UP 11/12/2010 Patient Education: Patient Medication Summary Completed 11/12/2010 Appointment: Jessica Gee WPtel: [address] [place] [address] BP CHECK 10/26/2010 Patient Education: Patient Medication Summary Completed 10/26/2010 Visit Plan: Continue Toprol at bedtime A dd HCTZ in AM BP check in 2wks Fasting lab with next PT/INR 10/13/2010 Appointment: Jessica Gee WPtel: [address] [place] [address] FOLLOW UP 10/13/2010 Patient Education: Patient Medication Summary Completed 10/13/2010 Visit Plan: Cont abx. Fwup with surgery as scheduled 06/24/2010 Appointment: Jessica Gee WPtel: [address] [place] [address] Hospital Follow Up 06/24/2010 Patient Education: Patient Medication Summary Completed 06/24/2010 Appointment: Jessica Gee WPtel: [address] [place] [address] Hospital Follow Up 06/22/2010 Visit Plan: pt [...] to subside. 06/08/2010 Appointment: Xiomara Rodriguez WPtel: [address] [place] [address] ACUTE ILLNESS 06/08/2010 Patient Education: Patient Medication Summary Completed 06/08/2010 Appointment: Xiomara Rodriguez WPtel: [address] [place] [address] FOLLOW UP 06/01/2010 Appointment: Jessica Gee WPtel: [address] [place] [address] UA 05/29/2010 Patient Education: Patient Medication Summary Completed 05/29/2010 Appointment: Xiomara Rodriguez WPtel: [address] [place] [address] ACUTE ILLNESS 05/20/2010 Patient Education: Patient Medication Summary Completed 05/20/2010 Appointment: Jessica Gee WPtel: [address] [place] [address] BP CHECK 05/13/2010 Patient Education: Patient Medication Summary Completed 05/13/2010 Visit Plan: Increase Lisinopril hct to 2 0/12.5mg q AM Use atarax prn and routinely at bedtime and Medrol dose pack BP check in 3wks Pt defers stress test at this time 04/30/2010 Appointment: Jessica Gee WPtel: [address] [place] [address] ACUTE ILLNESS 04/30/2010 Patient Education: Patient Medication Summary Completed 04/30/2010 Appointment: Jessica Gee WPtel: [address] [place] [address] BP CHECK 02/27/2010 Patient Education: Patient Medication Summary Completed 02/27/2010 Visit Plan: Cont Toprol Add Altace 10mg QD Cont Wellbutrin Will likely add SSRI after BP stable BP check in 2wks 01/22/2010 Appointment: Jessica Gee WPtel: [address] [place] [address] ACUTE ILLNESS 01/22/2010 Patient Education: Patient Medication Summary Completed 01/22/2010 Referral: Rupa Raines WPtel: [address] [address] [id number] [place] Referral Completed Referral: Neymar Alberts WPtel: [phone] [address] [place] Referral Initiated Instructions Comment . Tick [...]
--- OUTSIDE RECORDS SUMMARY | 2019-09-10 03:10 | XMS REPORT | CCD ---
Author Author Nava Gee D.O. Organization [facility] Address [address] [place] [address] Phone Care Team Providers Care Vice President Compliance Name Role Phone Jessica Gee D.O., PP Unavailable CCM Unavailable Summary Purpose Interface Exchange Insurance Providers Payer name Policy type / Coverage type Covered green party ID Effective Begin Date Effective End Date Blue Cross Blue Shield Blue Cross/Blue Shield [id number] Unknown Family History Family History data not found Social History Social History Element Codes Description Effective Dates Tobacco history SNOMED CT: 278539886 Never smoker 10/13/2010 Allergies, Adverse Reactions, Alerts [...] findings ICD-9: V70.0 ICD-10: Z00.00 12/16/2017 Active rn long term care (current) use of anticoagulants ICD-9: V58.6 1 [...] Start Date Stop Date Status Fill Instructions Coumadin 5 mg tablet RxNorm: 307139 TAKE 1 TABLET BY MOUTH ONCE DAILY 04/02/2019 04/02/2019 Inactive celecoxib 200 mg capsule RxNorm: 155508 TAKE 1 CAPSULE BY MOUTH TWICE DAILY 03/20/2019 06/17/2019 Active metformin ER 500 mg tablet,extended release 24 hr RxNorm: 86 0975 TAKE 1 TABLET BY MOUTH TWICE DAILY 03/19/2019 05/17/2019 Active pravastatin 40 mg tablet RxNorm: 315557 TAKE 1 TABLET BY MOUTH ONCE DAILY 03/19/2019 06/16/2019 Active warfarin 1 mg tablet RxNorm: 362396 TAKE 1 TABLET BY [facility] ONCE DAILY. TAKE AN ADDITIONAL TABLET ON TUESDAY AND Tuesday02/28/2019 No Stop Date Active Coumadin 5 mg tablet RxNorm: 041181 TAKE 1 TABLET BY MOUTH ONCE DAILY 02/28/2019 04/01/2019 Inactive omeprazole 40 mg capsule,delayed release RxNorm: 977372 TAKE 1 CAPSULE BY MOUTH TWICE DAILY 02/19/2019 No Stop Date Active metformin ER 500 mg tablet,extended release 24 hr RxNorm: 86 0975 1 Tablet(s) PO BID 02/19/2019 03/18/2019 Inactive metformin ER 500 mg tablet,extended release 24 hr RxNorm: 86 0975 1 Tablet(s) PO BID 01/15/2019 02/13/2019 Inactive alprazolam 0.25 mg tablet RxNorm: 638207 1 Tablet(s) Oral prior to flight 01/03/2019 No Stop Date Active omeprazole 40 mg capsule,delayed release RxNorm: 747678 TAKE 1 CAPSULE BY MOUTH TWICE DAILY 12/20/2018 02/18/2019 Inactive metformin ER 500 mg tablet,extended release 24 hr RxNorm: 86 0975 1 Tablet(s) PO BID 12/11/2018 01/09/2019 Inactive pravastatin 40 mg tablet RxNorm: 886314 TAKE 1 TABLET BY MOUTH ONCE DAILY 12/11/2018 03/18/2019 Inactive Coumadin 5 mg tablet RxNorm: 908845 1 Tablet(s) PO QD 11/27/201809/2018 Inactive metformin ER 500 mg tablet,extended release 24 hr RxNorm: 86 0975 1 Tablet(s) PO BID 10/02/2018 11/30/2018 Inactive warfarin 1 mg tablet RxNorm: 479449 TAKE 1 TABLET BY [facility] ONCE DAILY. TAKE AN ADDITIONAL TABLET ON TUESDAY AND Tuesday10/02/2018 02/27/2019 Inactiv e warfarin 5 mg tablet RxNorm: 858495 1 Tablet(s) PO QD 09/27/201810/2018 Inactive Bactrim DS 800 mg-160 mg tablet RxNorm: 109682 1 Tablet(s) PO BID 0 09/27/2018 10/03/2018 Inactive Toprol XL 200 mg tablet,extended release RxNorm: 848510 1 Table t(s) PO QD 09/18/2018 03/16/2019 Inactive omeprazole 40 mg capsule,delayed release RxNorm: 833467 TAKE 1 CAPSULE BY MOUTH TWICE DAILY 09/11/2018 12/19/2018 Inactive Coumadin 5 mg tablet RxNorm: 767547 1 Tablet(s) PO QD 08/21/201811/2018 Inactive metformin ER 500 mg tablet,extended release 24 hr RxNorm: 86 0975 1 Tablet(s) PO BID 07/31/2018 09/28/2018 Inactive omeprazole 40 mg capsule,delayed release RxNorm: 348549 TAKE 1 CAPSULE BY MOUTH TWICE DAILY 06/27/2018 09/10/2018 Inactive metformin ER 500 mg tablet,extended release 24 hr RxNorm: 86 0975 Tablet(s) 1 Tablet(s) PO BID 06/27/2018 07/31/2018 Inactive Toprol XL 200 mg tablet,extended release RxNorm: 738149 1 Table t(s) PO QD 06/14/2018 09/17/2018 Inactive Coumadin 5 mg tablet RxNorm: 489381 1 Tablet(s) PO QD 06/14/201804/2018 Inactive metformin ER 500 mg tablet,extended release 24 hr RxNorm: 86 0975 Tablet(s) 1 Tablet(s) PO BID 05/22/2018 06/26/2018 Inactive Coumadin 5 mg tablet RxNorm: 854186 TAKE 1 TABLET BY MOUTH ONCE DAILY 05/11/2018 06/14/2018 Inactive Lovenox 40 mg/0.4 mL subcutaneous syringe RxNorm: 885706 40 Mil ligram(s) SQ QD 05/05/2018 09/26/2018 Inactive amitriptyline 25 mg tablet RxNorm: 953044 1 Tablet(s) PO QHS fo r sleep/HAs 04/24/2018 10/20/2018 Inactive Homesnap Ultra Test strips RxNorm: Test blood sugar sigrid y (Dx:E11.65) 04/24/2018 No Stop Date Active celecoxib 200 mg capsule RxNorm: 236251 1 Capsule(s) PO BID 019 10/20/2018 Inactive Celebrex 200 mg capsule RxNorm: 133123 TAKE 1 CAPSULE BY MOUTH ONCE DAILY 04/19/2018 04/23/2018 Inactive warfarin 1 mg tablet RxNorm: 823950 1 Tablet(s) PO QD a nd additional tablet on Mon & Thurs 04/14/2018 10/01/2018 Inactive Toprol XL 200 mg tablet,extended release RxNorm: 934093 TAKE 1 TABLET BY MOUTH ONCE DAILY 04/11/2018 06/14/2018 Inactive metformin ER 500 mg tablet,extended release 24 hr RxNorm: 86 0975 Tablet(s) 1 Tablet(s) PO BID 03/17/2018 05/21/2018 Inactive Coumadin 5 mg tablet RxNorm: 822174 TAKE 1 TABLET BY MOUTH ONCE DAILY 03/15/2018 05/10/2018 Inactive Lovenox 40 mg/0.4 mL subcutaneous syringe RxNorm: 140812 40 Mil ligram(s) SQ QD 01/27/2018 04/11/2018 Inactive omeprazole 40 mg capsule,delayed release RxNorm: 331792 TAKE 1 CAPSULE BY MOUTH TWICE DAILY 01/23/2018 06/26/2018 Inactive pravastatin 40 mg tablet RxNorm: 480624 TAKE 1 TABLET BY MOUTH ONCE DAILY 01/23/2018 12/10/2018 Inactive metformin ER 500 mg tablet,extended release 24 hr RxNorm: 86 0975 Tablet(s) 1 Tablet(s) PO BID 01/16/2018 01/15/2018 Inactive Toprol XL 200 mg tablet,extended release RxNorm: 812327 TAKE 1 TABLET BY MOUTH ONCE DAILY 01/16/2018 04/10/2018 Inactive Coumadin 5 mg tablet RxNorm: 386915 TAKE 1 TABLET BY MOUTH ONCE DAILY 01/06/2018 03/14/2018 Inactive Celebrex 200 mg capsule RxNorm: 768775 1 Capsule(s) PO BID 12/28/19 18 03/26/2018 Inactive metformin ER 500 mg tablet,extended release 24 hr RxNorm: 86 0975 1 Tablet(s) PO BID Needs APPT 12/21/2017 01/16/2018 Inactive omeprazole 40 mg capsule,delayed release RxNorm: 118004 TAKE 1 CAPSULE BY MOUTH TWICE DAILY 11/02/2017 01/22/2018 Inactive Celebrex 200 mg capsule RxNorm: 381593 1 Capsule(s) PO QD 11/01/2017 12/26/2017 Inactive Coumadin 5 mg tablet RxNorm: 531283 Tablet(s) TAKE ONE TABLET BY MOUTH ONCE DAILY. 10/31/2017 12/29/2017 Inactive warfarin 1 mg tablet RxNorm: 039776 1 Tablet(s) PO QD 10/31/201703/22 Inactive spironolactone 25 mg tablet RxNorm: 761334 TAKE TWO TAB LETS BY MOUTH IN THE MORNING 10/31/2017 04/23/2018 Inactive metformin ER 500 mg tablet,extended release 24 hr RxNorm: 86 0975 1 Tablet(s) PO BID Needs updated fasting lab 10/20/2017 12/21/2017 Inactive Medrol (Dale) 4 mg tablets in a dose pack RxNorm: 170556 Tablet(s) PO take as directed 10/12/2017 12/15/2017 Inactive Celebrex 200 mg capsule RxNorm: 643376 1 Capsule(s) PO QD 10/03/2017 10/02/2017 Inactive spironolactone 25 mg tablet RxNorm: 644527 TAKE TWO TAB LETS BY MOUTH IN THE MORNING 09/19/2017 10/30/2017 Inactive Zithromax Z-Dale 250 mg tablet RxNorm: 760492 Tablet(s) PO take as directed 09/16/2017 10/11/2017 Inactive Medrol (Dale) 4 mg tablets in a dose pack RxNorm: 111178 Tablet(s) take as directed PO 09/16/2017 10/11/2017 Inactive doxycycline hyclate 100 mg tablet RxNorm: 2675150 1 Tablet(s) PO BI D 09/16/2017 09/15/2017 Inactive doxycycline hyclate 100 mg tablet RxNorm: 2354716 1 Tablet(s) PO BI D 09/16/2017 09/25/2017 Inactive Tessalon Perles 100 mg capsule RxNorm: 384637 1 Capsule(s) PO T ID as needed 09/16/2017 12/15/2017 Inactive warfarin 1 mg tablet RxNorm: 823931 1 Tablet(s) PO QD 09/06/201710/19 Inactive Coumadin 5 mg tablet RxNorm: 425329 Tablet(s) TAKE ONE TABLET BY MOUTH ONCE DAILY. 09/06/2017 10/31/2017 Inactive Toprol XL 200 mg tablet,extended release RxNorm: 882942 1 Table t(s) PO QD 2017 01/02/2018 Inactive warfarin 1 mg tablet RxNorm: 491645 1 Tablet(s) PO QD DUE FOR L ABS AUGUST 12 08/29/2017 09/06/2017 Inactive Coumadin 5 mg tablet RxNorm: 156963 Tablet(s) TAKE ONE TABLET BY MOUTH ONCE DAILY. DUE FOR PT/INR AUGUST 12 08/29/2017 09/06/2017 Inactive Coumadin 5 mg tablet RxNorm: 210118 Tablet(s) TAKE ONE TABLET BY MOUTH ONCE DAILY. DUE FOR PT/INR AUGUST 12 08/01/2017 08/29/2017 Inactive warfarin 1 mg tablet RxNorm: 955789 1 Tablet(s) PO QD DUE FOR L ABS AUGUST 12 08/01/2017 08/29/2017 Inactive scopolamine 1 mg over 3 days transdermal patch RxNorm: 95345 2 1 TD take off in 72 hours. 08/01/2017 12/26/2017 Inactive pravastatin 40 mg tablet RxNorm: 682960 Tablet(s) TAKE ONE TABLET BY MOUTH ONCE DAILY 07/07/2017 01/02/2018 Inactive Coumadin 5 mg tablet RxNorm: 046347 Tablet(s) TAKE ONE TABLET BY MOUTH ONCE DAILY. DUE FOR PT/INR. 06/29/2017 08/01/2017 Inactive warfarin 1 mg tablet RxNorm: 253310 1 Tablet(s) PO QD 06/29/201707/19 Inactive Coumadin 5 mg tablet RxNorm: 135862 TAKE ONE TABLET BY MOUTH ONCE DAILY. DUE FOR PT/INR. 05/30/2017 06/29/2017 Inactive omeprazole 40 mg capsule,delayed release RxNorm: 288971 1 Capsu le(s) PO BID 05/30/2017 08/27/2017 Inactive Celebrex 200 mg capsule RxNorm: 626156 1 Capsule(s) PO QD 05/23/2017 10/03/2017 Inactive metformin ER 500 mg tablet,extended release 24 hr RxNorm: 86 0975 TAKE ONE TABLET BY MOUTH TWICE DAILY 05/20/2017 10/20/2017 Inactive Coumadin 5 mg tablet RxNorm: 491655 1 Tablet(s) PO QD due for PT/IN R 04/25/2017 05/24/2017 Inactive warfarin 1 mg tablet RxNorm: 744475 1 Tablet(s) PO QD due for l abs this week 03/16/2017 06/29/2017 Inactive omeprazole 40 mg capsule,delayed release RxNorm: 279348 1 Capsu le(s) PO BID 03/16/2017 05/30/2017 Inactive Celebrex 200 mg capsule RxNorm: 368805 1 Capsule(s) PO BID as n eeded for pain 03/16/2017 05/22/2017 Inactive Coumadin 5 mg tablet RxNorm: 245625 1 Tablet(s) PO QD due for PT/IN R 03/16/2017 04/14/2017 Inactive Celebrex 200 mg capsule RxNorm: 281271 1 Capsule(s) PO BID as n eeded for pain 02/09/2017 03/15/2017 Inactive Toprol XL 200 mg tablet,extended release RxNorm: 530035 1 Table t(s) PO QD 02/08/2017 2017 Inactive Celebrex 200 mg capsule RxNorm: 659388 1 Capsule(s) PO BID as n eeded for pain 01/14/2017 02/08/2017 Inactive omeprazole 40 mg capsule,delayed release RxNorm: 725380 1 Capsu le(s) PO BID 01/12/2017 03/16/2017 Inactive Coumadin 5 mg tablet RxNorm: 555079 1 Tablet(s) PO QD 12/15/201602/19 Inactive warfarin 1 mg tablet RxNorm: 112792 1 Tablet(s) PO QD 12/15/201602/19 Inactive metformin ER 500 mg tablet,extended release 24 hr RxNorm: 86 0975 Tablet(s) TAKE ONE TABLET BY MOUTH TWICE DAILY 11/29/2016 02/26/2017 Inactive omeprazole 40 mg capsule,delayed release RxNorm: 535505 1 Capsu le(s) PO BID 11/29/2016 12/28/2016 Inactive pravastatin 40 mg tablet RxNorm: 314805 Tablet(s) TAKE ONE TABLET BY MOUTH ONCE DAILY 11/19/2016 07/07/2017 Inactive omeprazole 40 mg capsule,delayed release RxNorm: 724995 1 Capsu le(s) PO BID 10/19/2016 10/18/2016 Inactive omeprazole 40 mg capsule,delayed release RxNorm: 629551 1 Capsu le(s) PO BID 10/19/2016 11/17/2016 Inactive pantoprazole 40 mg tablet,delayed release RxNorm: 616032 1 Tabl et(s) PO QD 09/30/2016 10/18/2016 Inactive pantoprazole 40 mg tablet,delayed release RxNorm: 346906 1 Tabl et(s) PO QD 09/30/2016 09/29/2016 Inactive Zofran ODT 4 mg disintegrating tablet RxNorm: 789538 1 Tablet(s) PO Q4H as needed for nausea 09/15/2016 01/02/2017 Inactive Coumadin 5 mg tablet RxNorm: 103574 1 Tablet(s) PO QD 09/14/201611/20 Inactive warfarin 1 mg tablet RxNorm: 934592 1 Tablet(s) PO QD 09/14/201611/20 Inactive spironolactone 25 mg tablet RxNorm: 674621 2 Tablet(s) PO QAM 09/0301/02/2017 Inactive Wellbutrin XL 300 mg 24 hr tablet, extended release RxNorm: 896055 TAKE ONE TABLET BY MOUTH ONCE DAILY 08/26/2016 12/26/2017 Inactive Toprol XL 200 mg tablet,extended release RxNorm: 417158 1 Table t(s) PO QD 07/28/2016 02/08/2017 Inactive metformin ER 500 mg tablet,extended release 24 hr RxNorm: 86 0975 Tablet(s) TAKE ONE TABLET BY MOUTH TWICE DAILY 07/15/2016 11/29/2016 Inactive cyclobenzaprine 5 mg tablet RxNorm: 930230 1 Tablet(s) PO QHS f or spasm 07/08/2016 08/06/2016 Inactive Celebrex 200 mg capsule RxNorm: 1 Capsule(s) PO BID 07/08/2016 Inactive spironolactone 25 mg tablet RxNorm: 608044 1 Tablet(s) PO QAM 07/0609/02/2016 Inactive Wellbutrin XL 300 mg 24 hr tablet, extended release RxNorm: 388898 TAKE ONE TABLET BY MOUTH ONCE DAILY 06/15/2016 07/14/2016 Inactive Coumadin 5 mg tablet RxNorm: 332444 1 Tablet(s) PO QD 06/08/201608/20 Inactive warfarin 1 mg tablet RxNorm: 252821 1 Tablet(s) PO QD 06/08/201608/20 Inactive Toprol XL 200 mg tablet,extended release RxNorm: 479609 TAKE ONE TABLET BY MOUTH ONCE DAILY 04/26/2016 07/28/2016 Inactive pravastatin 40 mg tablet RxNorm: 182617 TAKE ONE TABLET BY MOUT H ONCE DAILY 04/19/2016 10/15/2016 Inactive Coumadin 5 mg tablet RxNorm: 242527 1 Tablet(s) PO QD 03/09/201605/19 Inactive warfarin 1 mg tablet RxNorm: 327916 1 Tablet(s) PO QD 03/09/201605/19 Inactive metformin ER 500 mg tablet,extended release 24 hr RxNorm: 86 0975 TAKE ONE TABLET BY MOUTH TWICE DAILY 02/25/2016 07/15/2016 Inactive spironolactone 25 mg tablet RxNorm: 224113 TAKE ONE TAB LET BY MOUTH ONCE DAILY IN THE MORNING 02/25/2016 07/06/2016 Inactive prednisone 20 mg tablet RxNorm: 692826 1 Tablet(s) PO QAM 02/16/2016 02/20/2016 Inactive cefdinir 300 mg capsule RxNorm: 913732 2 Capsule(s) PO QD 02/16/2016 02/25/2016 Inactive Toprol XL 200 mg tablet,extended release RxNorm: 840060 TAKE ONE TABLET BY MOUTH ONCE DAILY 01/26/2016 04/24/2016 Inactive Aciphex 20 mg tablet,delayed release RxNorm: 723565 1 Tablet(s) PO BID 12/24/2015 09/29/2016 Inactive Omeprazole and Pepci d have not helped. Coumadin 5 mg tablet RxNorm: 547060 1 Tablet(s) PO QD 12/10/201502/19 Inactive Coumadin 5 mg tablet RxNorm: 352562 1 Tablet(s) PO QD 12/08/201511/20 Inactive Toprol XL 200 mg tablet,extended release RxNorm: 103203 TAKE ONE TABLET BY MOUTH ONCE DAILY 11/20/2015 01/18/2016 Inactive warfarin 1 mg tablet RxNorm: 043558 1 Tablet(s) PO QD 11/03/201502/19 Inactive pravastatin 40 mg tablet RxNorm: 193559 Tablet(s) TAKE ONE TABLET BY MOUTH ONCE DAILY 10/20/2015 01/17/2016 Inactive pravastatin 40 mg tablet RxNorm: 089071 TAKE ONE TABLET BY MOUT H ONCE DAILY 10/20/2015 10/19/2015 Inactive metformin ER 500 mg tablet,extended release 24 hr RxNorm: 86 0975 TAKE ONE TABLET BY MOUTH TWICE DAILY 10/03/2015 12/31/2015 Inactive Toprol XL 200 mg tablet,extended release RxNorm: 622313 TAKE ONE TABLET BY MOUTH ONCE DAILY 09/17/2015 11/15/2015 Inactive Coumadin 5 mg tablet RxNorm: 461370 1 Tablet(s) PO QD 09/02/201511/19 Inactive Wellbutrin XL 300 mg 24 hr tablet, extended release RxNorm: 062420 TAKE ONE TABLET BY MOUTH ONCE DAILY 08/01/2015 10/29/2015 Inactive Pepcid 20 mg tablet RxNorm: 348859 1 Tablet(s) PO BID as needed 05/24/2017 Inactive warfarin 1 mg tablet RxNorm: 035243 TAKE ONE TABLET BY MOUTH ON CE DAILY 07/08/2015 11/03/2015 Inactive pravastatin 40 mg tablet RxNorm: 446063 1 Tablet(s) PO QD 07/08/2015 10/05/2015 Inactive spironolactone 25 mg tablet RxNorm: 906356 TAKE ONE TAB LET BY MOUTH ONCE DAILY IN THE MORNING 06/13/2015 09/10/2015 Inactive Coumadin 5 mg tablet RxNorm: 675450 1 Tablet(s) PO QD 06/05/201508/19 Inactive Wellbutrin XL 300 mg 24 hr tablet, extended release RxNorm: 988577 TAKE ONE TABLET BY MOUTH ONCE DAILY 05/16/2015 09/26/2018 Inactive Wellbutrin XL 300 mg 24 hr tablet, extended release RxNorm: 725683 TAKE ONE TABLET BY MOUTH ONCE DAILY 05/16/2015 06/14/2015 Inactive metformin ER 500 mg tablet,extended release 24 hr RxNorm: 86 0975 TAKE ONE TABLET BY MOUTH TWICE DAILY 05/16/2015 08/13/2015 Inactive pravastatin 40 mg tablet RxNorm: 560728 1 Tablet(s) PO QD 04/10/2015 07/07/2015 Inactive Aciphex 20 mg tablet,delayed release RxNorm: 140969 1 Tablet(s) PO BID 03/07/2015 09/02/2015 Inactive Omeprazole and Pepci d have not helped. Toprol XL 200 mg tablet,extended release RxNorm: 546328 1 Table t(s) PO QD 03/05/2015 08/31/2015 Inactive Aciphex 20 mg tablet,delayed release RxNorm: 173498 1 Tablet(s) PO QD 03/04/2015 03/06/2015 Inactive Omeprazole and Pepci d have not helped. Coumadin 5 mg tablet RxNorm: 446605 1 Tablet(s) PO QD 02/28/201511/2015 Inactive Aciphex 20 mg tablet,delayed release RxNorm: 782226 1 Tablet(s) PO BID 02/11/2015 03/03/2015 Inactive Omeprazole and Pepci d have not helped. metformin ER 500 mg tablet,extended release 24 hr RxNorm: 86 0975 1 Tablet(s) PO BID 01/10/2015 04/09/2015 Inactive pravastatin 40 mg tablet RxNorm: 114333 1 Tablet(s) PO QD 01/06/2015 04/05/2015 Inactive Wellbutrin XL 300 mg 24 hr tablet, extended release RxNorm: 506812 TAKE ONE TABLET BY MOUTH ONCE DAILY 12/19/2014 02/16/2015 Inactive amoxicillin 500 mg capsule RxNorm: 975270 2 Capsule(s) PO BID 12/0612/15/2014 Inactive Flonase 50 mcg/actuation nasal spray,suspension RxNorm: 8963 23 2 [place] each nostril NASAL QD 12/06/2014 03/05/2015 Inactive Coumadin 5 mg tablet RxNorm: 728350 1 Tablet(s) PO QD 11/28/201410/2014 Inactive spironolactone 25 mg tablet RxNorm: 144992 1 Tablet(s) PO QAM 11/2602/23/2015 Inactive Coumadin 5 mg tablet RxNorm: 869106 1 Tablet(s) PO QD 1 Tablet(s) PO QD- NEED TO CHECK LABS 10/30/2014 11/28/2014 Inactive warfarin 1 mg tablet RxNorm: 965508 1 Tablet(s) PO QD 10/30/201409/2015 Inactive Aciphex 20 mg tablet,delayed release RxNorm: 206421 1 Tablet(s) PO QD 10/02/2014 02/10/2015 Inactive Omeprazole and Pepci d have not helped. Coumadin 5 mg tablet RxNorm: 043467 1 Tablet(s) PO QD 1 Tablet(s) PO QD- NEED TO CHECK LABS 09/30/2014 10/30/2014 Inactive pravastatin 40 mg tablet RxNorm: 168393 1 Tablet(s) PO QD 09/25/2014 01/06/2015 Inactive warfarin 1 mg tablet RxNorm: 983062 1 Tablet(s) PO QD T [place] ONE TABLET BY MOUTH DIRECTED ON MON AND THUR 08/28/2014 10/29/2014 Inactive metformin ER 500 mg tablet,extended release 24 hr RxNorm: 86 0975 1 Tablet(s) PO BID 08/28/2014 01/10/2015 Inactive amoxicillin 875 mg tablet RxNorm: 746036 1 Tablet(s) PO BID 015 08/18/2014 Inactive Toprol XL 200 mg tablet,extended release RxNorm: 808746 TAKE ONE TABLET BY MOUTH ONCE DAILY 07/22/2014 03/05/2015 Inactive Coumadin 5 mg tablet RxNorm: 427155 1 Tablet(s) PO QD 07/01/201409/18 Inactive amoxicillin 875 mg tablet RxNorm: 154333 1 Tablet(s) PO BID 015 06/30/2014 Inactive pravastatin 40 mg tablet RxNorm: 775830 1 Tablet(s) PO QD needs fasting labs 06/19/2014 09/25/2014 Inactive Coumadin 5 mg tablet RxNorm: 516914 1 Tablet(s) PO QD 1 Tablet(s) PO QD TAKE ONE TABLET BY MOUTH ONCE DAILY-need labs 05/28/2014 07/01/2014 Inactive warfarin 1 mg tablet RxNorm: 548101 1 Tablet(s) PO As Directed 05/1908/28/2014 Inactive pravastatin 40 mg tablet RxNorm: 559395 1 Tablet(s) PO QD needs fasting labs 05/14/2014 06/19/2014 Inactive metformin ER 500 mg tablet,extended release 24 hr RxNorm: 86 0975 1 Tablet(s) PO BID 04/25/2014 08/28/2014 Inactive spironolactone 25 mg tablet RxNorm: 139174 1 Tablet(s) PO QAM 04/2511/26/2014 Inactive Coumadin 5 mg tablet RxNorm: 195767 1 Tablet(s) PO QD 1 Tablet(s) PO QD TAKE ONE TABLET BY MOUTH ONCE DAILY 04/23/2014 05/28/2014 Inactive Coumadin 5 mg tablet RxNorm: 261417 1 Tablet(s) PO QD 1 Tablet(s) PO QD TAKE ONE TABLET BY MOUTH ONCE DAILY 03/22/2014 04/20/2014 Inactive Tessalon Perles 100 mg capsule RxNorm: 525249 1 Capsule(s) PO TID 0 03/22/2014 03/28/2014 Inactive cefdinir 300 mg capsule RxNorm: 610319 2 Capsule(s) PO QD 03/22/2014 03/31/2014 Inactive Medrol (Dale) 4 mg tablets in a dose pack RxNorm: 913463 Tablet(s) PO as directed 03/05/2014 08/08/2014 Inactive Coumadin 5 mg tablet RxNorm: 921365 1 Tablet(s) PO QD 1 Tablet(s) PO QD TAKE ONE TABLET BY MOUTH ONCE DAILY 02/19/2014 03/20/2014 Inactive pravastatin 40 mg tablet RxNorm: 585917 1 Tablet(s) PO QD 02/04/2014 05/14/2014 Inactive Coumadin 5 mg tablet RxNorm: 133688 1 Tablet(s) PO QD T [place] ONE TABLET BY MOUTH ONCE DAILY 01/21/2014 02/19/2014 Inactive Medrol (Dale) 4 mg tablets in a dose pack RxNorm: 198632 Tablet(s) PO as directed 01/18/2014 03/04/2014 Inactive cefdinir 300 mg capsule RxNorm: 528805 2 Capsule(s) PO QD 01/16/2014 01/25/2014 Inactive metformin ER 500 mg tablet,extended release 24 hr RxNorm: 86 0975 1 Tablet(s) PO BID 12/17/2013 04/25/2014 Inactive Wellbutrin SR 150 mg tablet,sustained-release RxNorm: 066449 1 Tablet(s) PO BID 11/30/2013 02/27/2014 Inactive spironolactone 25 mg tablet RxNorm: 817373 1 Tablet(s) PO QAM 10/2204/25/2014 Inactive Macrobid 100 mg capsule RxNorm: 515818 1 Capsule(s) PO BID 10/20/19 14 10/25/2013 Inactive Macrobid 100 mg capsule RxNorm: 120275 1 Capsule(s) PO BID 10/20/19 14 10/18/2013 Inactive Toprol XL 100 mg tablet,extended release RxNorm: 014377 1 Table t(s) PO QD 10/15/2013 01/15/2014 Inactive Toprol XL 200 mg tablet,extended release RxNorm: 550809 1 Table t(s) PO QD 10/02/2013 07/22/2014 Inactive Wellbutrin XL 300 mg 24 hr tablet, extended release RxNorm: 539628 1 Tablet(s) PO QD 09/28/2013 12/19/2014 Inactive Aciphex 20 mg tablet,delayed release RxNorm: 979605 1 Tablet(s) PO QD 08/29/2013 10/02/2014 Inactive Omeprazole and Pepci d have not helped. Coumadin 5 mg tablet RxNorm: 643027 1 Tablet(s) PO QD 08/14/201307/20 Inactive Coumadin 5 mg tablet RxNorm: 842984 1 Tablet(s) PO QD 08/14/201305/2013 Inactive pravastatin 40 mg tablet RxNorm: 912662 1 Tablet(s) PO QD 07/24/2013 02/04/2014 Inactive warfarin 1 mg tablet RxNorm: 630666 1 Tablet(s) PO QD T [place] ONE TABLET BY MOUTH DIRECTED ON TUE AND 07/09/2013 05/28/2014 Inactive warfarin 5 mg tablet RxNorm: 413193 1 Tablet(s) PO QD T [place] ONE TABLET BY MOUTH EVERY DAY 06/08/2013 07/07/2013 Inactive spironolactone 25 mg tablet RxNorm: 798893 1 Tablet(s) PO QAM 05/3010/15/2013 Inactive clindamycin 300 mg capsule RxNorm: 401103 2 Capsule(s) PO TID 04/1704/30/2013 Inactive warfarin 5 mg tablet RxNorm: 139990 1 Tablet(s) PO QD 03/12/201305/20 Inactive azithromycin 250 mg tablet RxNorm: 931186 2 Tablet(s) PO QD 013 03/07/2013 Inactive metformin ER 500 mg tablet,extended release 24 hr RxNorm: 86 0975 1 Tablet(s) PO BID 02/22/2013 12/17/2013 Inactive spironolactone 25 mg tablet RxNorm: 345174 1 Tablet(s) PO QAM 01/2205/30/2013 Inactive metformin ER 500 mg tablet,extended release 24 hr RxNorm: 86 0977 1 Tablet(s) PO BID 01/11/2013 02/21/2013 Inactive pravastatin 40 mg tablet RxNorm: 341943 1 Tablet(s) PO QD 01/11/2013 07/24/2013 Inactive warfarin 5 mg tablet RxNorm: 933528 1 Tablet(s) PO QD 01/04/201302/19 Inactive warfarin 1 mg tablet RxNorm: 567374 Tablet(s) PO TAKE O NE TABLET BY MOUTH DIRECTED ON TUE AND 12/14/2012 07/08/2013 Inactive scopolamine 1.5 mg 72 hr Transderm Patch RxNorm: 082545 TD Apply 1 patch behind ear every 72 hours, replace after 3 days. 11/08/2012 01/15/2014 Inacti ve Pepcid 20 mg tablet RxNorm: 177676 1 Tablet(s) PO BID as needed 01/31/2013 Inactive Famvir 500 mg tablet RxNorm: 811064 1 Tablet(s) PO Q8H 11/03/2012 Inactive Aciphex 20 mg tablet,delayed release RxNorm: 975055 1 Tablet(s) PO QD 11/03/2012 05/01/2013 Inactive Omeprazole and Pepci d have not helped. gabapentin 300 mg capsule RxNorm: 352621 Capsule(s) PO TID 11/04/19 13 01/15/2014 Inactive warfarin 5 mg tablet RxNorm: 476486 1 Tablet(s) PO QD 11/02/201212/19 Inactive Wellbutrin XL 300 mg 24 hr tablet, extended release RxNorm: 905719 1 Tablet(s) PO QD 10/17/2012 04/30/2013 Inactive pravastatin 40 mg tablet RxNorm: 549060 Tablet(s) PO TA KE ONE TABLET BY MOUTH EVERY DAY. NEED FASTING LABS 09/18/2012 01/10/2013 Inactive Toprol XL 200 mg tablet,extended release RxNorm: 921141 Tablet(s) PO TAKE ONE TABLET BY MOUTH EVERY DAY 09/08/2012 10/01/2013 Inactive warfarin 5 mg tablet RxNorm: 324503 1 Tablet(s) PO QD 08/31/201210/19 Inactive pravastatin 40 mg tablet RxNorm: 942136 1 Tablet(s) PO QD Needs fasting labs 08/18/2012 09/16/2012 Inactive TAKE ONE TABLET BY M OUTH EVERY DAY warfarin 1 mg tablet RxNorm: 024586 1 Tablet(s) PO As directed on Mon and Th08/11/2012 12/13/2012 Inactive spironolactone 25 mg tablet RxNorm: 121488 1 Tablet(s) PO QAM 07/1110/08/2012 Inactive warfarin 5 mg tablet RxNorm: 059107 1 Tablet(s) PO QD 07/03/201208/19 Inactive Diflucan 100 mg tablet RxNorm: 271332 1 Tablet(s) PO QD 05/04/2012 Inactive Cipro 500 mg tablet RxNorm: 950803 1 Tablet(s) PO BID 05/04/201204/22 Inactive Aciphex 20 mg tablet,delayed release RxNorm: 218509 1 Tablet(s) PO QD 05/04/2012 07/02/2012 Inactive Omeprazole and Pepci d have not helped. warfarin 5 mg tablet RxNorm: 774368 1 Tablet(s) PO QD 05/02/201206/19 Inactive warfarin 5 mg tablet RxNorm: 344271 1 Tablet(s) PO QD 03/02/201204/21 Inactive Toprol XL 200 mg tablet,extended release RxNorm: 726479 1 Table t(s) PO QD 03/02/2012 05/30/2012 Inactive spironolactone 25 mg tablet RxNorm: 979464 1 Tablet(s) PO QAM 02/0707/11/2012 Inactive pravastatin 40 mg tablet RxNorm: 625031 Tablet(s) PO 01/31/201208/17 Inactive TAKE ONE TABLET BY MOUTH EVERY DAY pravastatin 40 mg tablet RxNorm: 372024 1 Tablet(s) PO QD 01/31/2012 08/18/2012 Inactive omeprazole 40 mg capsule,delayed release RxNorm: 759276 1 Capsule(s) PO QD for stomach 01/11/2012 11/02/2012 Inactive for stomach warfarin 5 mg tablet RxNorm: 965362 1 Tablet(s) PO QD 01/03/201202/18 Inactive warfarin 5 mg tablet RxNorm: 777321 1 Tablet(s) PO QD 12/03/201112/19 Inactive pravastatin 40 mg tablet RxNorm: 654412 1 Tablet(s) PO QD 11/25/2011 01/23/2012 Inactive cefdinir 300 mg Cap RxNorm: 062674 1 Capsule(s) PO BID 10/11/201103/2011 Inactive Culturelle 10 billion cell Cap RxNorm: 596321 1 Capsule(s) PO BID 0 10/11/2011 11/09/2011 Inactive Diflucan 100 mg Tab RxNorm: 925081 1 Tablet(s) PO QD 10/11/201110/19 Inactive Wellbutrin XL 300 mg 24 hr tablet, extended release RxNorm: 942141 1 Tablet(s) PO QD 09/14/2011 10/17/2012 Inactive pravastatin 40 mg tablet RxNorm: 316130 1 Tablet(s) PO QD 08/25/2011 11/25/2011 Inactive Coumadin 5 mg tablet RxNorm: 519908 Tablet(s) PO Take as direct ed by doctor. 07/07/2011 12/03/2011 Inactive Singulair 10 mg Tab RxNorm: 577012 1 Tablet(s) PO QD al lergy medication. (Please try to be consistent in dosing) 06/23/2011 01/15/2014 Inactive Diflucan 100 mg Tab RxNorm: 221647 1 Tablet(s) PO QD 06/14/201107/02 Inactive cefdinir 300 mg Cap RxNorm: 998178 1 Capsule(s) PO BID 06/14/201106/2011 Inactive pravastatin 40 mg Tab RxNorm: 074331 1 Tablet(s) PO QD 05/25/201108/2011 Inactive warfarin 5 mg Tab RxNorm: 549288 Tablet(s) PO 05/25/2011 10/18/2011 In active TAKE ONE TABLET BY MOUTH EVERY DAY Toprol XL 200 mg tablet,extended release RxNorm: 451430 1 Table t(s) PO QD 03/05/2011 06/02/2011 Inactive spironolactone 25 mg tablet RxNorm: 345743 1 Tablet(s) PO QAM 02/2402/08/2012 Inactive omeprazole 40 mg capsule,delayed release RxNorm: 919390 1 Capsule(s) PO QD for stomach 01/06/2011 01/11/2012 Inactive for stomach warfarin 5 mg Tab RxNorm: 115311 1 Tablet(s) PO QD 12/17/2010 011 Inactive warfarin 5 mg Tab RxNorm: 076273 1 Tablet(s) PO QD 11/18/2010 011 Inactive spironolactone 25 mg Tab RxNorm: 712509 1 Tablet(s) PO QAM 11/13/19 11 02/24/2011 Inactive Coumadin 6 mg Tab RxNorm: 996800 1 Tablet(s) PO QD 10/28/2010 011 Inactive May have generic hydrochlorothiazide 25 mg Tab RxNorm: 156372 1 Tablet(s) PO QAM 11/11/2010 Inactive Wellbutrin XL 300 mg 24 hr Tab RxNorm: 640975 1 Tablet(s) PO QD 09/14/2011 Inactive Septra DS 800 mg-160 mg Tab RxNorm: 715363 1 Tablet(s) PO BID 06/0806/17/2010 Inactive Pyridium 100 mg Tab RxNorm: 6221186 1 Tablet(s) PO TID 06/08/2010 Inactive Wellbutrin XL 300 mg 24 hr Tab RxNorm: 905783 1 Tablet(s) PO QD 05/201007/15/2010 Inactive hydroxyzine 25 mg Tab RxNorm: 875738 1 Tablet(s) PO QID prn itching--take routinely at bedtime. (pt. may not refil at this time but later) 05/20/2010 10/10/2011 Inactive Zyrtec 10 mg Tab RxNorm: 2615399 1 Tablet(s) PO BID 05/20/20102010 Inactive Coumadin 1 mg Tab RxNorm: 126600 1 Tablet(s) PO 6mg M-F, 7mg S-S 11/16/2010 Inactive hydroxyzine 25 mg Tab RxNorm: 817246 1 Tablet(s) PO QID prn itching--take routinely at bedtime 04/30/2010 05/19/2010 Inactive Toprol XL 200 mg 24 hr Tab RxNorm: 940159 1 Tablet(s) PO QD 011 06/23/2010 Inactive lisinopril-hydrochlorothiazide 10 mg-12.5 mg Tab RxNorm: 197 885 1 Tablet(s) PO QD 04/20/2010 04/29/2010 Inactive omeprazole 40 mg Cap, Delayed Release RxNorm: 447590 1 Capsule(s) PO QD for stomach 04/20/2010 08/17/2010 Inactive lisinopril-hydrochlorothiazide 10 mg-12.5 mg Tab RxNorm: 197 885 Tablet(s) PO 1QDAM - TAKE ONE TABLET BY MOUTH EVERY DAY IN THE MORNING 03/09/2010 Inactive lisinopril-hydrochlorothiazide 10 mg-12.5 mg Tab RxNorm: 197 885 1 Tablet(s) PO QD 02/27/2010 04/20/2010 Inactive Wellbutrin XL 300 mg 24 hr Tab RxNorm: 494942 1 Tablet(s) PO QD 05/21/2010 Inactive lisinopril-hydrochlorothiazide 10 mg-12.5 mg Tab RxNorm: 197 885 1 Tablet(s) PO QD 01/28/2010 02/26/2010 Inactive omeprazole 40 mg Cap, Delayed Release RxNorm: 058662 1 Capsule(s) PO QD for stomach 01/22/2010 04/20/2010 Inactive Altace 10 mg Cap RxNorm: 598116 1 Capsule(s) PO QD for BP 01/22/2010 03/22/2010 Inactive Coumadin 6 mg Tab RxNorm: 249945 1 Tablet(s) PO QD May have generic 12/03/2009 05/01/2010 Inactive Coumadin 6 mg Tab RxNorm: 461211 1 Tablet(s) PO 12/01/2009 12/02/2009 Inactive Coumadin 1 mg Tab RxNorm: 070431 1 Tablet(s) PO QD 11/28/2009 010 Inactive Coumadin 1 mg Tab RxNorm: 335920 1 Tablet(s) PO QD 07/02/2009 010 Inactive lisinopril-hydrochlorothiazide 20 mg-12.5 mg Tab RxNorm: 197 886 2 Tablet(s) PO QAM No Start Date 10/12/2010 Inactive Zofran ODT 4 mg disintegrating tablet RxNorm: 131470 1 Tablet(s) PO Q6H as needed for nausea No Start Date 09/14/2016 Inactive Wellbutrin XL 300 mg 24 hr Tab RxNorm: 315035 1 Tablet(s) PO QD No Start Date 02/02/2010 Inactive alprazolam 0.25 mg tablet RxNorm: 232041 1 Tablet(s) PO prior t o flight No Start Date 05/24/2017 Inactive hydrocodone-acetaminophen 5 mg-500 mg Tab RxNorm: 330469 1-2 Tablet(s) PO Q4H as needed for pain No Start Date 12/02/2010 Inactive Toprol XL 100 mg 24 hr Tab RxNorm: 846390 1 Tablet(s) PO QD No Star t Date 10/14/2013 Inactive Celebrex 200 mg capsule RxNorm: 487374 1 Capsule(s) PO QD No Start Date 05/22/2017 Inactive Flexeril 10 mg tablet RxNorm: 641048 1 Tablet(s) PO TID No Start Da te 04/02/2019 Inactive scopolamine 1 mg over 3 days transdermal patch RxNorm: 31836 2 1 TD take off in 72 hours. No Start Date 07/31/2017 Inactive OneTouch Ultra Test strips RxNorm: Test blood sugar daily No S tart Date 04/23/2018 Inactive Medrol (Dale) 4 mg tablets in a dose pack RxNorm: 778460 Tablet(s) PO As directed No Start Date 01/15/2014 Inactive Coumadin 5 mg Tab RxNorm: 161541 1 Tablet(s) PO QD No Start Date 06/19 Inactive Pepcid 40 mg Tab RxNorm: 067060 1 Tablet(s) PO QD No Start Date 06/23 Inactive prednisone 10 mg Tab RxNorm: 938706 1 Tablet(s) PO BID No Start Date 06/23/2010 Inactive spironolactone 25 mg tablet RxNorm: 857440 1 Tablet(s) PO QAM No St art Date 09/26/2018 Inactive scopolamine 1.5 mg 72 hr Transderm Patch RxNorm: 381080 TD Apply 1 patch behind ear every 72 hours, replace after 3 days. No Start Date 11/07/2012 Inacti ve azithromycin 250 mg Tab RxNorm: 930296 Tablet(s) PO 2 t abs on day one and one tab on days 2-5. (antibiotic) No Start Date 10/10/2011 Inactive Medrol (Dale) 4 mg Tabs in a Dose Pack RxNorm: 640743 1 Tablet(s) PO as directed. (steroid pack) No Start Date 10/10/2011 Inactive Lovenox 40 mg/0.4 mL subcutaneous syringe RxNorm: 417448 40 Mil ligram(s) SQ QD No Start Date 05/04/2018 Inactive Celebrex 200 mg capsule RxNorm: 265154 1 Capsule(s) PO BID as n eeded for pain No Start Date 01/13/2017 Inactive warfarin 1 mg tablet RxNorm: 908254 1 Tablet(s) PO As directed on Tue and No Start Date 08/10/2012 Inactive cefuroxime axetil 500 mg Tab RxNorm: 720800 1 Tablet(s) PO BID No S tart Date 06/13/2011 Inactive Lovenox 40 mg/0.4 mL subcutaneous syringe RxNorm: 010537 40 Mil ligram(s) SQ QD No Start Date 01/26/2018 Inactive Coumadin 5 mg tablet RxNorm: 427340 1 Tablet(s) PO QD No Start Date 0 08/13/2013 Inactive Medrol (Dale) 4 mg tablets in a dose pack RxNorm: 160521 Tablet(s) PO as directed No Start Date 01/17/2014 Inactive Coumadin 6 mg tablet RxNorm: 890065 1 Tablet(s) PO QD No Start Date 0 06/20/2016 Inactive warfarin 5 mg tablet RxNorm: 752359 1 Tablet(s) PO QD No Start Date 0 12/02/2011 Inactive Medrol (Dale) 4 mg Tabs in a Dose Pack RxNorm: 275404 Tablet(s) PO as directed No Start Date 06/23/2010 Inactive Flonase 50 mcg/actuation nasal spray,suspension RxNorm: 8963 23 2 [place] NASAL BID No Start Date 12/05/2014 Inactive Pepcid 20 mg tablet RxNorm: 918840 1 Tablet(s) PO BID as needed No Start Date 11/02/2012 Inactive spironolactone 25 mg tablet RxNorm: 828454 1 Tablet(s) PO QAM No St art Date 04/02/2019 Inactive Medication Administered No Medication Administered data Immunizations No Immunization data Results Observation Observation Code Item Item Code Result Date S ervice Location MICROALBUMIN URINE RANDOM 02218 CREAT MG/D 139 MG/DL Unknown MICROALBUMIN URINE RANDOM 12299 CRE/100 1.39 G/L 12/20 Unknown Procedures Procedure Codes Date URINALYSIS NONAUTO W/O SCOPE CPT-4: 16344 09/27/2018 URINE CULTURE/ COLONY COUNT CPT-4: 82102 09/27/2018 URINALYSIS NONAUTO W/O SCOPE CPT-4: 93516 10/13/2017 URINE CULTURE/ COLONY COUNT CPT-4: 76889 10/13/2017 STREP A ASSAY W/OPTIC CPT-4: 09330 06/21/2016 STREP A ASSAY W/OPTIC CPT-4: 95332 06/24/2014 THER/PROPH/DIAG INJ SC/IM CPT-4: 86765 03/22/2014 METHYLPREDNISOLONE 40 MG INJ CPT-4: J1030 03/22/2014 TRIAMCINOLONE ACET INJ NOS CPT-4: J3301 03/22/2014 URINALYSIS NONAUTO W/O SCOPE CPT-4: 60447 10/19/2013 URINE CULTURE/ COLONY COUNT CPT-4: 87189 10/19/2013 CEFTRIAXONE SODIUM INJECTION CPT-4: J0696 03/02/2013 THER/PROPH/DIAG INJ SC/IM CPT-4: 88991 03/02/2013 CEFTRIAXONE SODIUM INJECTION CPT-4: J0696 03/01/2013 THER/PROPH/DIAG INJ SC/IM CPT-4: 79675 03/01/2013 THER/PROPH/DIAG INJ SC/IM CPT-4: 65098 03/01/2013 METHYLPREDNISOLONE 40 MG INJ CPT-4: J1030 03/01/2013 TRIAMCINOLONE ACET INJ NOS CPT-4: J3301 03/01/2013 MICROALBUMIN QUANTITATIVE CPT-4: 68016 01/11/2013 URINE CULTURE/ COLONY COUNT CPT-4: 01590 05/04/2012 URINALYSIS NONAUTO W/O SCOPE CPT-4: 25193 05/04/2012 URINE CULTURE/ COLONY COUNT CPT-4: 62192 05/29/2010 TRIAMCINOLONE ACET INJ NOS CPT-4: J3301 05/20/2010 METHYLPREDNISOLONE 40 MG INJ CPT-4: J1030 05/20/2010 THER/PROPH/DIAG INJ SC/IM CPT-4: 69744 05/20/2010 Vital Signs Date Vital 04/03/2019 Blood [...] 1: 134/78 Code: 8480-6 BMI: 35.1 Code: 62726-9 Heart Rate 1: 76 bpm Height: 5'9" Respiratory Rate: 20 bpm Temperature: 36 .6 (C) / 97.8 (F) Weight: 238 lbs 12/27/2017 Blood Pressure 1: 126/64 Code: 8480-6 BMI: 34.7 Code: 86226-4 Heart Rate 1: 72 bpm Height: 5'9" Respiratory Rate: 20 bpm Temperature: 36 .8 (C) / 98.2 (F) Weight: 235 lbs 10/12/2017 Blood Pressure 1: 142/80 Code: 8480-6 BMI: 35.1 Code: 32635-1 Heart Rate 1: 98 bpm Height: 5'9" Respiratory Rate: 22 bpm SpO2: 100% Tempera ture: 36.5 (C) / 97.7 (F) Weight: 238 lbs 09/16/2017 Blood Pressure 1: 136/82 Code: 8480-6 BMI: 34.1 Code: 19281-0 Heart Rate 1: 82 bpm Height: 5'9" Respiratory Rate: 18 bpm SpO2: 96% Tempera ture: 36.3 (C) / 97.3 (F) Weight: 231 lbs 05/25/2017 Blood Pressure 1: 122/82 Code: 8480-6 BMI: 32.3 Code: 86530-8 Heart Rate 1: 116 bpm Height: 5'9" Respiratory Rate: 20 bpm SpO2: 98% Tempera ture: 35.6 (C) / 96.1 (F) Weight: 219 lbs 01/03/2017 Blood Pressure 1: 126/78 Code: 8480-6 BMI: 33.4 Code: 92460-7 Heart Rate 1: 72 bpm Height: 5'9" Respiratory Rate: 20 bpm Temperature: 36 .8 (C) / 98.2 (F) Weight: 226 lbs 09/23/2016 Blood Pressure 1: 126/82 Code: 8480-6 BMI: 33.8 Code: 61341-8 Heart Rate 1: 80 bpm Height: 5'9" Respiratory Rate: 20 bpm SpO2: 97% Tempera ture: 36.8 (C) / 98.2 (F) Weight: 229 lbs 09/03/2016 Blood Pressure 1: 188/64 Code: 8480-6 Bl ood Pressure 2: 166/92 Code: 8480-6 BMI: 34.4 Code: 19788-2 Heart Rate 1: 66 bpm Height: 5'9" Res piratory Rate: 20 bpm SpO2: 98% Temperature: 35.7 (C) / 96.2 (F) Weight: 233 lbs 07/08/2016 Blood Pressure 1: 134/82 Code: 8480-6 Heart Rate 1: 64 bpm Height: 5'9" Respiratory Rate: 20 bpm SpO2: 97% Temperature: 36.6 (C) / 97.8 (F) Weight: 06/21/2016 Blood Pressure 1: 112/68 Code: 8480-6 BMI: 33.8 Code: 96950-5 Heart Rate 1: 64 bpm Height: 5'9" Respiratory Rate: 20 bpm SpO2: 95% Tempera ture: 36.3 (C) / 97.3 (F) Weight: 229 lbs 02/23/2016 Blood Pressure 1: 128/78 Code: 8480-6 BMI: 33.4 Code: 56062-9 Heart Rate 1: 74 bpm Height: 5'9" [...] 1: 122/80 Code: 8480-6 BMI: 32.2 Code: 00339-9 Heart Rate 1: 80 bpm Height: 5'9" Respiratory Rate: 20 bpm Temperature: 37 .0 (C) / 98.6 (F) Weight: 218 lbs 08/09/2014 Blood Pressure 1: 132/84 Code: 8480-6 BMI: 33.1 Code: 32478-4 Heart Rate 1: 72 bpm Height: 5'9" Respiratory Rate: 20 bpm Temperature: 36 .7 (C) / 98.0 (F) Weight: 224 lbs 06/24/2014 Blood Pressure 1: 132/80 Code: 8480-6 BMI: 32.8 Code: 42950-2 Heart Rate 1: 68 bpm Height: 5'9" Respiratory Rate: 20 bpm Temperature: 36 .4 (C) / 97.6 (F) Weight: 222 lbs 03/22/2014 Blood Pressure 1: 128/84 Code: 8480-6 BMI: 32.5 Code: 68531-1 Heart Rate 1: 78 bpm Height: 5'9" Respiratory Rate: 22 bpm Temperature: 36 .0 (C) / 96.8 (F) Weight: 220 lbs 03/05/2014 Blood Pressure 1: 124/78 Code: 8480-6 BMI: 31.9 Code: 82258-9 Heart Rate 1: 82 bpm Height: 5'9" Respiratory Rate: 20 bpm Temperature: 35 .8 (C) / 96.4 (F) Weight: 216 lbs 01/16/2014 Blood Pressure 1: 116/68 Code: 8480-6 BMI: 33.8 Code: 04823-8 Heart Rate 1: 72 bpm Height: 5'7" Respiratory Rate: 20 bpm Temperature: 36 .6 (C) / 97.9 (F) Weight: 216 lbs 05/10/2013 Blood Pressure 1: 124/86 Code: 8480-6 BMI: 34.3 Code: 30892-8 Heart Rate 1: 84 bpm Height: 5'7" [...] 1: 116/84 Code: 8480-6 BMI: 33.1 Code: 51130-8 Heart Rate 1: 64 bpm Height: 5'9" Respiratory Rate: 20 bpm Temperature: 36 .4 (C) / 97.6 (F) Weight: 224 lbs 01/11/2013 Blood Pressure 1: 126/84 Code: 8480-6 BMI: 35.3 Code: 88745-0 Heart Rate 1: 68 bpm Height: 5'9" Respiratory Rate: 20 bpm Temperature: 36 .7 (C) / 98.1 (F) Weight: 239 lbs 11/03/2012 Blood Pressure 1: 104/70 Code: 8480-6 BMI: 34.4 Code: 55871-1 Heart Rate 1: 72 bpm Height: 5'9" Respiratory Rate: 20 bpm Temperature: 36 .8 (C) / 98.3 (F) Weight: 233 lbs 05/04/2012 Blood Pressure 1: 124/74 Code: 8480-6 BMI: 33.7 Code: 82054-7 Heart Rate 1: 84 bpm Height: 5'9" Temperature: 36.3 (C) / 97.3 (F) Weight: 228 lbs 10/11/2011 Blood Pressure 1: 110/70 Code: 8480-6 BMI: 33.7 Code: 73555-5 Heart Rate 1: 64 bpm Height: 5'9" Temperature: 36.8 (C) / 98.3 (F) Weight: 228 lbs 06/23/2011 Blood Pressure 1: 114/70 Code: 8480-6 BMI: 33.4 Code: 90471-1 Heart Rate 1: 80 bpm Height: 5'9" Respiratory Rate: 20 bpm Temperature: 36 .7 (C) / 98.0 (F) Weight: 226 lbs 06/14/2011 Blood Pressure 1: 118/74 Code: 8480-6 BMI: 33.4 Code: 30423-7 Heart Rate 1: 80 bpm Height: 5'9" [...] 1: 126/82 Code: 8480-6 BMI: 32.6 Code: 74228-8 Heart Rate 1: 68 bpm Height: 5'9" [...] 1: 140/92 Code: 8480-6 BMI: 31.3 Code: 93235-3 Heart Rate 1: 60 bpm Height: 5'10" [...] upper back on 08/13/16 while camping around [place], [place]. Patient states is tender around tick [...] 01/22/2010 Encounters Encounter Performer Location Codes Date ([id number]) OFFICE/OUTPATIENT VISIT EST Diagnosis: Type 2 diabetes mellitus without complications[ICD10: E11.9] Diagnosis: Essential hypertension[ICD10: I10] Jessica OBRIEN [employer] [facility] CPT-4: 48511 04/03/2019 ([id number]) OFFICE/OUTPATIENT VISIT EST Diagnosis: Gastro-esophageal reflux disease without esophagitis[ICD10: K21.9] Diagnosis: Urinary tract infection, site not specified[ICD10: N39.0] Diagnosis: Ventral hernia without obstruction or gangrene[ICD10: K43.9] Jessica VO [employer] CPT-4: 81374 09/27/2018 ([id number]) OFFICE/OUTPATIENT VISIT EST Diagnosis: Essential (primary) hypertension[ICD10: I10] Diagnosis: Type 2 diabetes mellitus without complications[ICD10: E11.9] Diagnosis: Carpal tunnel syndrome, right upper limb[ICD10: G56.01] Diagnosis: Primary insomnia[ICD10: F51.01] Jessica VO [employer] CPT-4: 26651 04/24/2018 ([id number]) OFFICE/OUTPATIENT VISIT EST Diagnosis: Type 2 diabetes mellitus without complications[ICD10: E11.9] Diagnosis: Mixed hyperlipidemia[ICD10: E78.2] Diagnosis: Essential (primary) hypertension[ICD10: I10] Diagnosis: Pain in unspecified joint[ICD10: M25.50] Jessica VO [employer] [facility] CPT-4: 51962 12/27/2017 ([id number]) NURSE/OUTPATIENT VISIT EST Diagnosis: Hematuria, unspecified[ICD10: R31.9] Jessica GEE [facility] CPT-4: 86368 10/13/2017 ([id number]) OFFICE/OUTPATIENT VISIT EST Diagnosis: Pleurodynia[ICD10: R07.81] Sofi HYMAN JUSTEN DO [facility] CPT-4: 82400 10/12/2017 ([id number]) OFFICE/OUTPATIENT VISIT EST Diagnosis: Acute bronchitis, unspecified[ICD10: J20.9] Sofi GEE DO [facility] CPT-4: 99362 09/16/2017 ([id number]) OFFICE/OUTPATIENT VISIT EST Diagnosis: Other specified postprocedural states[ICD10: Z98.890] Diagnosis: Cellulitis of neck[ICD10: L03.221] Diagnosis: Tachycardia, unspecified[ICD10: R00.0] Jessica BELTRAN [facility]oyd [facility] CPT-[facility]: 97583 05/25/2017 ([id number]) OFFICE/OUTPATIENT VISIT EST Diagnosis: Lumbago with sciatica, right side[ICD10: M54.41] Diagnosis: Pain in unspecified joint[ICD10: M25.50] [facility]: 25998 01/03/2017 ([id number]) OFFICE/OUTPATIENT VISIT EST Diagnosis: Bitten or stung by nonvenomous insect and other nonvenomous arthropods, subsequent encounter[ICD10: W57.XXXD] Diagnosis: Essential (primary) hypertension[ICD10: I10] Diagnosis: Low back pain[ICD10: M54.5] Jessica VO S. O RENDER DO [facility] CPT-4: 98156 09/23/2016 OFFICE/OUTPATIENT VISIT EST Diagnosis: Bitten or stung by nonvenomous insect and other nonvenomous arthropods, initial encounter[ICD10: W57.XXXA] Diagnosis: Essential (primary) hypertension[ICD10: I10] Kaitlynn Mosley JESSICA GEE [facility] CPT-4: 38581 09/03/2016 ([id number]) OFFICE/OUTPATIENT VISIT EST Diagnosis: Low back pain[ICD10: M54.5] Diagnosis: Radiculopathy, lumbosacral region[ICD10: M54.17] Jessica GEE [facility] CPT-4: 76094 07/08/2016 ([id number]) OFFICE/OUTPATIENT VISIT EST Diagnosis: Acute pharyngitis, unspecified[ICD10: J02.9] Jessica GEE [facility] CPT-4: 52940 06/21/2016 ([id number]) OFFICE/OUTPATIENT VISIT EST Diagnosis: Cough[ICD10: R05] Diagnosis: Fever, unspecified[ICD10: R50.9] Janiya GEE [facility] CPT-4: 89292 02/23/2016 ([id number]) OFFICE/OUTPATIENT VISIT EST Diagnosis: Acute sinusitis, unspecified[ICD10: J01.90] Jessica GEE [facility] CPT-4: 46104 02/16/2016 OFFICE/OUTPATIENT VISIT EST Diagnosis: Type 2 diabetes mellitus without complications[ICD10: E11.9] Diagnosis: Gastro-esophageal reflux disease without esophagitis[ICD10: K21.9] Diagnosis: Ventral hernia without obstruction or gangrene[ICD10: K43.9] Suki GEE [facility] CPT-4: 53470 02/11/2015 OFFICE/OUTPATIENT VISIT EST 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] Diagnosis: Essential (primary) hypertension[ICD10: I10] Suki GEE [facility] CPT-4: 64238 01/28/2015 OFFICE/OUTPATIENT VISIT EST Diagnosis: SINUSITIS, ACUTE[ICD9: 461.9] Kaitlynn MENDENHALLQUELINE Monica GEE [facility] CPT-4: 11295 12/06/2014 ([id number]) OFFICE/OUTPATIENT VISIT EST Diagnosis: SINUSITIS, ACUTE[ICD9: 461.9] Kaitlynn VO Monica GEE [facility] CPT-4: 89184 08/09/2014 ([id number]) OFFICE/OUTPATIENT VISIT EST Diagnosis: TONSILLITIS, ACUTE[ICD9: 463] Suki GEE DO [facility] CPT-4: 21978 06/24/2014 OFFICE/OUTPATIENT VISIT EST Diagnosis: SINUSITIS, ACUTE[ICD9: 461.9] Diagnosis: EUSTACHIAN TUBE DYSFUNCTION[ICD9: 381.81] Diagnosis: COUGH[ICD9: 786.2] Suki GEE DO [facility] CPT-4: 65715 03/22/2014 OFFICE/OUTPATIENT VISIT EST Diagnosis: Elbow pain, right[ICD9: 719.42] Suki GEE DO [facility] CPT-4: 41210 03/05/2014 OFFICE/OUTPATIENT VISIT EST Diagnosis: SINUSITIS, ACUTE[ICD9: 461.9] Jessica GEE DO [facility] CPT-4: 79288 01/16/2014 ([id number]) OFFICE/OUTPATIENT VISIT EST Diagnosis: GROSS HEMATURIA[ICD9: 599.71] Jessica GEE DO [facility] CPT-4: 93932 10/19/2013 ([id number]) OFFICE/OUTPATIENT VISIT EST Diagnosis: DM W/O COMPLICATION TYPE II[ICD9: 250.00] Diagnosis: HYPERLIPIDEMIA NEC/NOS[ICD9: 272.4] Jessica GEE DO [facility] CPT-4: 08243 05/10/2013 ([id number]) OFFICE/OUTPATIENT VISIT EST Diagnosis: SINUSITIS, ACUTE[ICD9: 461.9] Jessica GEE DO [facility] CPT-4: 39063 04/17/2013 OFFICE/OUTPATIENT VISIT EST Diagnosis: OTITIS MEDIA NOS[ICD9: 382.9] Diagnosis: COUGH[ICD9: 786.2] Suki GEE DO [facility] CPT-4: 58877 03/05/2013 OFFICE/OUTPATIENT VISIT EST Diagnosis: COUGH[ICD9: 786.2] Diagnosis: BRONCHITIS, ACUTE[ICD9: 466.0] Suki GEE DO [facility] CPT-4: 92217 03/02/2013 OFFICE/OUTPATIENT VISIT EST Diagnosis: COUGH[ICD9: 786.2] Diagnosis: OTITIS MEDIA NOS[ICD9: 382.9] Diagnosis: BRONCHITIS, ACUTE[ICD9: 466.0] Suki [facility] CPT-[facility]: 75532 03/01/2013 OFFICE/OUTPATIENT VISIT EST Diagnosis: DM W/O COMPLICATION TYPE II, UNCONTROLLED[ICD9: 250.02] Jessica [facility] CPT-4: 77623 02/22/2013 ([id number]) PREV VISIT EST AGE 40-64 Diagnosis: DM W/O COMPLICATION TYPE II, UNCONTROLLED[ICD9: 250.02] Diagnosis: HYPERTENSION[ICD9: 401.9] Diagnosis: ROUTINE MEDICAL EXAM[ICD9: V70.0] Jessica [facility] CPT-4: 55617 01/11/2013 OFFICE/OUTPATIENT VISIT EST Diagnosis: HZ (HERPES ZOSTER)[ICD9: 053.9] Kaitlynn Mosley JESSICA [facility] CPT-4: 28834 11/03/2012 OFFICE/OUTPATIENT VISIT EST Diagnosis: URINARY TRACT INFECTION[ICD9: 599.0] Diagnosis: GERD[ICD9: 530.81] Diagnosis: PHARYNGITIS, ACUTE[ICD9: 462] Jessica [facility] CPT-4: 00339 05/04/2012 OFFICE/OUTPATIENT VISIT EST Diagnosis: COUGH[ICD9: 786.2] Diagnosis: SINUSITIS, ACUTE[ICD9: 461.9] Diagnosis: PHARYNGITIS, ACUTE[ICD9: 462] Jessica [facility] CPT-4: 68736 10/11/2011 OFFICE/OUTPATIENT VISIT EST Diagnosis: COUGH[ICD9: 786.2] Diagnosis: SINUSITIS, ACUTE[ICD9: 461.9] Diagnosis: PHARYNGITIS, ACUTE[ICD9: 462] Diagnosis: ALLERGIC RHINITIS[ICD9: 477.9] Xiomara Rodriguez JESSICA Dominga [facility] CPT-4: 62200 06/23/2011 OFFICE/OUTPATIENT VISIT EST Diagnosis: COUGH[ICD9: 786.2] Diagnosis: SINUSITIS, ACUTE[ICD9: 461.9] Diagnosis: PHARYNGITIS, ACUTE[ICD9: 462] Jessica GEE DO [facility] CPT-4: 14300 06/14/2011 OFFICE/OUTPATIENT VISIT EST Diagnosis: SINUSITIS, ACUTE[ICD9: 461.9] Diagnosis: PHARYNGITIS, ACUTE[ICD9: 462] Jessica SUTTONNDER [facility] CPT-4: 88430 12/02/2010 OFFICE/OUTPATIENT VISIT EST Diagnosis: HYPERTENSION[ICD9: 401.9] Diagnosis: HYPERLIPIDEMIA NEC/NOS[ICD9: 272.4] Diagnosis: DERMATITIS NOS[ICD9: 692.9] Jessica VO S. O RENDER DO [facility] CPT-4: 92737 11/12/2010 OFFICE/OUTPATIENT VISIT EST Jessica Orr. [facility] CPT- 4: 50268 10/13/2010 ([id number]) OFFICE/OUTPATIENT VISIT EST Jessica BELTRAN SLloyd SUTTONNDER DO [facility] CPT-4: 36005 06/24/2010 ([id number]) OFFICE/OUTPATIENT VISIT EST Jessica BELTRAN S. HERMANNDER DO [facility] CPT-4: 91480 06/08/2010 ([id number]) OFFICE/OUTPATIENT VISIT EST Xiomara Rodriguez JESSICA S Lloyd SUTTONNDER DO [facility] CPT-4: 68085 05/20/2010 ([id number]) OFFICE/OUTPATIENT VISIT EST Jessica BELTRAN SLloyd SUTTONNDER DO [facility] CPT-4: 32165 04/30/2010 ([id number]) OFFICE/OUTPATIENT VISIT, EST Jessica MOFFETTCAMILLE SLloyd SUTTONNDMALVIN DO [facility] CPT-4: 62756 01/22/2010 Plan of Care Planned Activity Notes Codes Status Date Visit Diagnosis Plan: Type 2 diabetes mellitus without complications Discussion: Lab discussed Add jardience 10mg po q AM Hold spironolactone Accuchecks daily alternating times Fwup 1 month with BS readings Notify if any signs of yeast infection ICD-9 : 250.00 ICD-10 : E11.9 04/03/2019 Visit Diagnosis Plan: Gastro-esophageal reflux disease [...] : N39.0 09/27/2018 Appointment: Jessica Gee WPtel: [facility] [place] [id number] ACUTE ILLNESS 09/27/2018 Visit Diagnosis Plan: Carpal [...] I10 04/24/2018 Appointment: Jessica Gee WPtel: [phone] [id number] ACUTE ILLNESS 04/24/2018 Patient Education: celecoxib- [employer] C[employer]on [id number] Completed 04/24/2018 Patient Education: amitriptyline- [employer] C[employer]on [id number] Completed 04/24/2018 Visit Diagnosis Plan: Pain in unspecified joint Discus ximena: Increase celebrex to 200mg po BID Add Vitamin D3 5000u daily Increase activity Going to have carpal tunnel surgery to both hands--seeing ortho ICD-9 : 719.40 ICD-10 : M25.50 12/27/2017 Visit Diagnosis Plan: Essential (primary) hypertension Discussion: Stable ICD-9 : 401.9 ICD-10 : I10 12/27/2017 Visit Diagnosis Plan: Type 2 diabetes mellitus without complications Discussion: Lab discussed Take both 500mg metformin at same time to ascertain compliance Accuchecks daily Getting fllu shot at work Follow Up: 3 months ICD-9 : 250.00 ICD-10 : E11.9 12/27/2017 Appointment: [facility] [phone] [id number] [facility] 12/27/2017 Patient Education: Patient Medication Summary Completed 12/27/2017 Patient Education: Patient Medication Summary Completed 12/19/2017 Care Plan: MAMMOGRAM BOTH BREASTS LOINC : 83682-5 Pending 12/19/2017 Patient Education: Patient Medication Summary Completed 12/16/2017 Care Plan: ASSAY THYROID STIM HORMONE Pen ding 12/16/2017 Care Plan: ASSAY OF FREE THYROXINE Pendin g 12/16/2017 Care Plan: LIPID PANEL LOINC : 14047-6 Pending 12/16/2017 Care Plan: CBC Pending 12/16/2017 Care Plan: A1C HPLC LOINC : 95371-3 Pending 12/16/2017 Patient Education: Patient Medication Summary Completed 10/17/2017 Care Plan: CT ANGIOGRAPHY CHEST LOINC : 75478-9 Pending 10/17/2017 Patient Education: Patient Medication Summary Completed 10/14/2017 Care Plan: CT ANGIOGRAPHY CHEST LOINC : 45148-3 Pending 10/14/2017 Appointment: Jessica Gee [facility]Ptel[facility] [phone] [facility] [facility] 10/13/2017 Patient Education: Patient Medication Summary Completed 10/13/2017 Visit Diagnosis Plan: Pleurodynia Discussion: patient sent for stat cxray. medrol dose pack prescribed for symptom management. instructed to perform deep breathing exercises at home to prevent atelectasis or pneumonia. will notify pa tient of results of xray and order additional tests/medications as needed. ICD-9 : 786.50 ICD-10 : R07.81 10/12/2017 Appointment: Sofi Gresham [address] [facility] ACUTE ILLNESS 10/12/2017 Patient Education: Patient Medication [...] : J20.9 09/16/2017 Appointment[facility] [facility] 09/16/2017 Patient Education: Patient Medication Summary Completed 09/16/2017 Appointment: Jessica Gee WPtel: [address] [place], [place] [phone] [place] CANCELED 08/10/2017 Visit Diagnosis Plan: Tachycardia, unspecified [...] : Z98.890 05/25/2017 Appointment: Jessica Gee WPtel: [address] [place], [place] [phone] [place] FOLLOW UP 05/25/2017 Patient Education: Patient Medication Summary Completed 05/25/2017 Visit Diagnosis Plan: Lumbago with sciatica, right britton e Discussion: Check arthritis panel Patient awaiting neck surgery before surgery will consider back surgery ICD-9 : 724.2 ICD-10 : M54.41 01/03/2017 Appointment: Jessica Gee WPtel: [address] [place], [place] [id number] ACUTE ILLNESS 01/03/2017 Patient Education: Patient Medication Summary Completed 01/03/2017 Patient Education: Patient Medication Summary Completed 12/16/2016 Care Plan: MAMMOGRAM SCREENING LOINC : 2 6347-5 Pending 12/16/2016 Patient Education: Patient Medication Summary Completed 10/07/2016 Care Plan: MRI LUMBAR SPINE W/O & W/DYE LOINC : 33204-4 Pending 10/07/2016 Visit Diagnosis Plan: Bitten or [...] : I10 09/23/2016 Appointment: Jessica Gee WPtel: [address] [place] [address] 09/22 confirmed WORK IN 09/23/2016 Patient Education: Patient Medication Summary Completed 09/23/2016 Visit Plan: Tick panel at [facility] Increa se spironolactone to 2 po am (New Rx sent) Take B/P at home/work and also come to office next week for recheck Will await lab results before starting any antibiotic 09/03/2016 Appointment: Kaitlynn Mosley WPtel: [address] [place], [place] [phone] ACUTE ILLNESS 09/03/2016 Patient Education: Patient Medication Summary Completed 09/03/2016 Visit Diagnosis Plan: Low back pain Discussion: Celebr ex BID PT Continue stretches at home L/S xray Follow Up: 1 months ICD-9 : 724.2 ICD-10 : M54.5 07/08/2016 Appointment: Jessica Gee WPtel: [address] [place] [address] [place] ACUTE ILLNESS 07/08/2016 Patient Education: Patient Medication Summary Completed 07/08/2016 Care Plan: X-RAY EXAM L-S SPINE 2/3 VWS LOINC : 53310-4 Pending 07/08/2016 Visit Plan: Supportive care. Rest, Fluid s, Tylenol/Motrin prn fever or bodyaches. Notify if worsening symptoms.New toothebrush in 5 days 06/21/2016 Visit Diagnosis Plan: Acute pharyngitis, unspecified D iscussion: Strep Negative Supportive Care May use zyrtec 10mg q HS ICD-9 : 462 ICD-10 : J02.9 06/21/2016 Visit NOS Plan: Plan Notes: Supportive care. Rest, Fluids... 06/21/2016 Appointment: Jessica Gee WPtel: [address] [place] [address] ACUTE ILLNESS 06/21/2016 Patient Education: Patient Medication Summary Completed 06/21/2016 Visit Plan: No pulseox last week to comp are to today, but she does sound diminished today Studies as above ordered Continue cefdinir until results received Increase albuterol treatments to q4-6hrs PRN Continue supportive care 02/23/2016 Appointment: Janiya Gregorio [address] [place] [address] ACUTE ILLNESS 02/23/2016 Patient Education: Patient Medication Summary Completed 02/23/2016 Care Plan: CHEST X-RAY 2VW FRONTAL&LATL LOINC : 54220-1 Pending 02/23/2016 Visit Plan: Saline nasal flushes prn. Ty lenol/Motrin prn headache. Notify if persists/symptoms worsening. 02/16/2016 Appointment: Jessica Gee WPtel: [address] [place] [address] ACUTE ILLNESS 02/16/2016 Patient Education: Patient Medication Summary Completed 02/16/2016 Visit Plan: Discussed labs Continue Topr ol at 200 mg PO daily Increase Aciphex to BID Notify if increase of Aciphex does not give relief. Repeat PT/INR in 2 weeks. 02/11/2015 Appointment: Suki Barahona WPtel: [address] [place], [place] [phone] 02/10 confirmed ~sl FOLLOW UP 02/11/2015 Patient Education: Patient Medication Summary Completed 02/11/2015 Patient Education: Patient Medication Summary Completed 02/06/2015 Care Plan: POC PROTIME/INR LOINC : 84681 -6 Pending 02/06/2015 Visit Plan: Increase Toprol XL 200 mg to one full tablet daily (is currently taking only 1/2 tablet) To for EKG today Monitor daily BP Notify of any changes- increased numbness, weakness, headache etc. 01/28/2015 Appointment: Suki Barahona WPtel: [address] [place] [address] ACUTE ILLNESS 01/28/2015 Patient Education: Patient Medication Summary Completed 01/28/2015 Visit Plan: ERx Amoxicillin and Flonase Nasal saline, humidified air Facial heat or cold packs for comfort Increase fluids/rest Discussed s/s of worsening, go to over weekend if these occur. 12/06/2014 Appointment: Kaitlynn Mosley WPtel: [address] [place] [address] ACUTE ILLNESS 12/06/2014 Patient Education: Patient Medication Summary Completed 12/06/2014 Appointment: Kaitlynn Mosley WPtel: [address] [place] [address] ACUTE ILLNESS 08/09/2014 Patient Education: Patient Medication Summary Completed 08/09/2014 Appointment: Suki Barahona WPtel: [address] [place], [place] [phone] ACUTE ILLNESS 06/24/2014 Patient Education: Patient Medication Summary Completed 06/24/2014 Appointment: Suki Barahona WPtel: [address] [place] [address] ACUTE ILLNESS 03/22/2014 Patient Education: Patient Medication Summary Completed 03/22/2014 Patient Education: [employer] - Antibi otics, Analgesics 18+, Oral Contraceptives F 18+ Completed 03/22/2014 Appointment: Suki Barahona WPtel: [address] [place] [address] FOLLOW UP 03/05/2014 Patient Education: Patient Medication Summary Completed 03/05/2014 Visit Plan: Saline nasal flushes prn. Ty lenol/Motrin prn headache. Notify if persists/symptoms worsening. Restart flonase 01/16/2014 Appointment: Jessica Gee WPtel: [address] [place] [address] ACUTE ILLNESS 01/16/2014 Patient Education: Patient Medication Summary Completed 01/16/2014 Appointment: Jessica Gee WPtel: [address] [place] [address] 10/19/2013 Patient Education: Patient Medication Summary Completed 10/19/2013 Appointment: Jessica Gee WPtel: [address] [place] [address] 08/08 patient canceled appt and said will call back to [facility] FOLLOW UP 08/09/2013 Visit Plan: Increase Coumadin to 6mg M-F and stay on 5mg Sat, Sun Add lipids to labs Check PT/INR in 3wks Continue metfromin at current dose and accuchecks 05/10/2013 Appointment: Jessica Gee WPtel: [address] [place] [address] 05/09 FOLLOW UP 05/10/2013 Patient Education: Patient Medication Summary Completed 05/10/2013 Visit Plan: Saline nasal flushes prn. Ty lenol/Motrin prn headache. Notify if persists/symptoms worsening. 04/17/2013 Appointment: Jessica Gee WPtel: [address] [place] [address] ACUTE ILLNESS 04/17/2013 Patient Education: Patient Medication Summary Completed 04/17/2013 Appointment: Suki Barahona WPtel: [address] [place] [address] FOLLOW UP 03/05/2013 Patient Education: Patient Medication Summary Completed 03/05/2013 Appointment: Suki Barahona Edison WPtel: [address] [place] [address] FOLLOW UP 03/02/2013 Patient Education: Patient Medication Summary Completed 03/02/2013 Appointment: Suki Barahona WPtel: [address] [place] [address] ACUTE ILLNESS 03/01/2013 Patient Education: Patient Medication Summary Completed 03/01/2013 Visit Plan: Continue metformin and accuc hecks Add fish oil 1gram daily Check HbA1C, CMP in 2mos then fwup 02/22/2013 Appointment: Jessica Gee WPtel: [address] [place] [address] 02/21 [facility] FOLLOW UP 02/22/2013 Patient Education: Patient Medication Summary Completed 02/22/2013 Visit Plan: Start Metformin Start Accuch ecks daily alternating times Will go for dilated eye exam once BS more stabilized Diabetic foot care discussed Diabetic diet info given 01/11/2013 Appointment: Jessica Gee WPtel: [address] [place] [address] FOLLOW UP 01/11/2013 Patient Education: Patient Medication Summary Completed 01/11/2013 Appointment: Kaitlynn Mosley WPtel: [address] [place] [address] ACUTE ILLNESS 11/03/2012 Patient Education: Patient Medication Summary Completed 11/03/2012 Appointment: Xiomara Rodriguez WPtel: [address] [place] [address] ACUTE ILLNESS 05/04/2012 Patient Education: Patient Medication Summary Completed 05/04/2012 Visit Plan: pt reports that she always g ets yeast infections. Discussed that the antifungal can cause problems/increased bleeding with Coumdin. Pt. will start with probiotics and only take the Diflucan if needed. Cefdinir. 10/11/2011 Appointment: Xiomara Rodriguez WPtel: [address] [place] [address] ACUTE ILLNESS 10/11/2011 Patient Education: Patient Medication Summary Completed 10/11/2011 Appointment: Xiomara Rodriguez WPtel: [address] [place] [address] FOLLOW UP 06/23/2011 Patient Education: Patient Medication Summary Completed 06/23/2011 Visit Plan: Will prescribe an antibiotic and diflucan. Pt. reports that she frequently gets yeast infection. Discussed that she will notify if any symptoms persist. Pt. reports that her relatives have recently been hospitalized with pneumonia. 06/14/2011 Appointment: Xiomara Rodriguez WPtel: [address] [place] [address] ACUTE ILLNESS 06/14/2011 Patient Education: Patient Medication Summary Completed 06/14/2011 Visit Plan: sample of veramyst. Cefuroxi me axetil. Pt. will focus on hydration and rest. Discussed comfort measures and monitoring for worsening symptoms. 12/02/2010 Appointment: Xiomara Rodriguez WPtel: [address] [place] [address] ACUTE ILLNESS 12/02/2010 Patient Education: Patient Medication Summary Completed 12/02/2010 Visit Plan: Change HCTZ to spironolacton e will start zocor in 1 mo BP med in 1mo 11/12/2010 Appointment: Jessica Gee WPtel: [address] [place], [place] [phone] FOLLOW UP 11/12/2010 Patient Education: Patient Medication Summary Completed 11/12/2010 Appointment: Jessica Gee WPtel: [address] [place], [place] [address] BP CHECK 10/26/2010 Patient Education: Patient Medication Summary Completed 10/26/2010 Visit Plan: Continue Toprol at bedtime A dd HCTZ in AM BP check in 2wks Fasting lab with next PT/INR 10/13/2010 Appointment: Jessica Gee WPtel: [address] [place], [place] [address] FOLLOW UP 10/13/2010 Patient Education: Patient Medication Summary Completed 10/13/2010 Visit Plan: Cont abx. Fwup with surgery as scheduled 06/24/2010 Appointment: Jessica Gee WPtel: [address] [place] [address] Follow Up 06/24/2010 Patient Education: Patient Medication Summary Completed 06/24/2010 Appointment: Jessica Gee WPtel: [address] [place] [address] Follow Up 06/22/2010 Visit Plan: pt is [...] to subside. 06/08/2010 Appointment: Xiomara Rodriguez WPtel: [address] [place] [address] ACUTE ILLNESS 06/08/2010 Patient Education: Patient Medication Summary Completed 06/08/2010 Appointment: Xiomara Rodriguez WPtel: [address] [place] [address] FOLLOW UP 06/01/2010 Appointment: Jessica Gee WPtel: [address] [place] [address] 05/29/2010 Patient Education: Patient Medication Summary Completed 05/29/2010 Appointment: Xiomara Rodriguez WPtel: [address] [place] [address] ACUTE ILLNESS 05/20/2010 Patient Education: Patient Medication Summary Completed 05/20/2010 Appointment: Jessica Gee WPtel: [address] [place] [address] BP CHECK 05/13/2010 Patient Education: Patient Medication Summary Completed 05/13/2010 Visit Plan: Increase Lisinopril hct to 2 0/12.5mg q AM Use atarax prn and routinely at bedtime and Medrol dose pack BP check in 3wks Pt defers stress test at this time 04/30/2010 Appointment: Jessica Gee WPtel: [address] [place] [address] ACUTE ILLNESS 04/30/2010 Patient Education: Patient Medication Summary Completed 04/30/2010 Appointment: Jessica Gee WPtel: [address] [place] [address] BP CHECK 02/27/2010 Patient Education: Patient Medication Summary Completed 02/27/2010 Visit Plan: Cont Toprol Add Altace 10mg QD Cont Wellbutrin Will likely add SSRI after BP stable BP check in 2wks 01/22/2010 Appointment: Jessica Gee WPtel: [address] [place] [address] ACUTE ILLNESS 01/22/2010 Patient Education: Patient Medication Summary Completed 01/22/2010 Referral: Rupa Raines WPtel: [address] [id number] [place] Referral Completed Referral: Neymar Alberts WPtel: [phone] [address] [place] Referral Initiated Instructions Comment . Tick [...]
--- OUTSIDE RECORDS SUMMARY | 2019-09-10 03:10 | XMS REPORT | CCD ---
Author Author Nava Gee D.O. Organization [facility] Address [address] [place] [address] Phone Care Team Providers Care Machine Fancy Stitcher Name Role Phone Jessica Gee D.O., PP Unavailable CCM Unavailable Summary Purpose Interface Exchange Insurance Providers Payer name Policy type / Coverage type Covered constitution party ID Effective Begin Date Effective End Date Blue Cross Blue Shield Blue Cross/Blue Shield [id number] Unknown Family History Family History data not found Social History Social History Element Codes Description Effective Dates Tobacco history SNOMED CT: 782800867 Never smoker 10/13/2010 Allergies, Adverse Reactions, Alerts [...] findings ICD-9: V70.0 ICD-10: Z00.00 12/16/2017 Active buttermaker continuous churn (current) use of anticoagulants ICD-9: V58.6 1 [...] Fill Instructions Coumadin 5 mg tablet RxNorm: 585350 TAKE 1 TABLET BY MOUTH ONCE DAILY 04/02/2019 04/02/2019 Inactive celecoxib 200 mg capsule RxNorm: 582521 TAKE 1 CAPSULE BY MOUTH TWICE DAILY 03/20/2019 06/17/2019 Active metformin ER 500 mg tablet,extended release 24 hr RxNorm: 86 0975 TAKE 1 TABLET BY MOUTH TWICE DAILY 03/19/2019 05/17/2019 Active pravastatin 40 mg tablet RxNorm: 991226 TAKE 1 TABLET BY MOUTH ONCE DAILY 03/19/2019 06/16/2019 Active warfarin 1 mg tablet RxNorm: 458328 TAKE 1 TABLET BY [facility] ONCE DAILY. TAKE AN ADDITIONAL TABLET ON TUESDAY AND Tuesday02/28/2019 No Stop Date Active Coumadin 5 mg tablet RxNorm: 027408 TAKE 1 TABLET BY MOUTH ONCE DAILY 02/28/2019 04/01/2019 Inactive omeprazole 40 mg capsule,delayed release RxNorm: 893048 TAKE 1 CAPSULE BY MOUTH TWICE DAILY 02/19/2019 No Stop Date Active metformin ER 500 mg tablet,extended release 24 hr RxNorm: 86 0975 1 Tablet(s) PO BID 02/19/2019 03/18/2019 Inactive metformin ER 500 mg tablet,extended release 24 hr RxNorm: 86 0975 1 Tablet(s) PO BID 01/15/2019 02/13/2019 Inactive alprazolam 0.25 mg tablet RxNorm: 255538 1 Tablet(s) Oral prior to flight 01/03/2019 No Stop Date Active omeprazole 40 mg capsule,delayed release RxNorm: 798017 TAKE 1 CAPSULE BY MOUTH TWICE DAILY 12/20/2018 02/18/2019 Inactive metformin ER 500 mg tablet,extended release 24 hr RxNorm: 86 0975 1 Tablet(s) PO BID 12/11/2018 01/09/2019 Inactive pravastatin 40 mg tablet RxNorm: 837589 TAKE 1 TABLET BY MOUTH ONCE DAILY 12/11/2018 03/18/2019 Inactive Coumadin 5 mg tablet RxNorm: 814699 1 Tablet(s) PO QD 11/27/201809/2018 Inactive metformin ER 500 mg tablet,extended release 24 hr RxNorm: 86 0975 1 Tablet(s) PO BID 10/02/2018 11/30/2018 Inactive warfarin 1 mg tablet RxNorm: 551555 TAKE 1 TABLET BY [facility] ONCE DAILY. TAKE AN ADDITIONAL TABLET ON TUESDAY AND Tuesday10/02/2018 02/27/2019 Inactiv e warfarin 5 mg tablet RxNorm: 379891 1 Tablet(s) PO QD 09/27/201810/2018 Inactive Bactrim DS 800 mg-160 mg tablet RxNorm: 870743 1 Tablet(s) PO BID 0 09/27/2018 10/03/2018 Inactive Toprol XL 200 mg tablet,extended release RxNorm: 588398 1 Table t(s) PO QD 09/18/2018 03/16/2019 Inactive omeprazole 40 mg capsule,delayed release RxNorm: 218431 TAKE 1 CAPSULE BY MOUTH TWICE DAILY 09/11/2018 12/19/2018 Inactive Coumadin 5 mg tablet RxNorm: 700459 1 Tablet(s) PO QD 08/21/201811/2018 Inactive metformin ER 500 mg tablet,extended release 24 hr RxNorm: 86 0975 1 Tablet(s) PO BID 07/31/2018 09/28/2018 Inactive omeprazole 40 mg capsule,delayed release RxNorm: 695409 TAKE 1 CAPSULE BY MOUTH TWICE DAILY 06/27/2018 09/10/2018 Inactive metformin ER 500 mg tablet,extended release 24 hr RxNorm: 86 0975 Tablet(s) 1 Tablet(s) PO BID 06/27/2018 07/31/2018 Inactive Toprol XL 200 mg tablet,extended release RxNorm: 324097 1 Table t(s) PO QD 06/14/2018 09/17/2018 Inactive Coumadin 5 mg tablet RxNorm: 077622 1 Tablet(s) PO QD 06/14/201804/2018 Inactive metformin ER 500 mg tablet,extended release 24 hr RxNorm: 86 0975 Tablet(s) 1 Tablet(s) PO BID 05/22/2018 06/26/2018 Inactive Coumadin 5 mg tablet RxNorm: 816764 TAKE 1 TABLET BY MOUTH ONCE DAILY 05/11/2018 06/14/2018 Inactive Lovenox 40 mg/0.4 mL subcutaneous syringe RxNorm: 953697 40 Mil ligram(s) SQ QD 05/05/2018 09/26/2018 Inactive amitriptyline 25 mg tablet RxNorm: 885747 1 Tablet(s) PO QHS fo r sleep/HAs 04/24/2018 10/20/2018 Inactive [employer] Ultra Test strips RxNorm: Test blood sugar sigrid y (Dx:E11.65) 04/24/2018 No Stop Date Active celecoxib 200 mg capsule RxNorm: 346574 1 Capsule(s) PO BID 019 10/20/2018 Inactive Celebrex 200 mg capsule RxNorm: 222344 TAKE 1 CAPSULE BY MOUTH ONCE DAILY 04/19/2018 04/23/2018 Inactive warfarin 1 mg tablet RxNorm: 343846 1 Tablet(s) PO QD a nd additional tablet on Mon & Thurs 04/14/2018 10/01/2018 Inactive Toprol XL 200 mg tablet,extended release RxNorm: 037806 TAKE 1 TABLET BY MOUTH ONCE DAILY 04/11/2018 06/14/2018 Inactive metformin ER 500 mg tablet,extended release 24 hr RxNorm: 86 0975 Tablet(s) 1 Tablet(s) PO BID 03/17/2018 05/21/2018 Inactive Coumadin 5 mg tablet RxNorm: 349653 TAKE 1 TABLET BY MOUTH ONCE DAILY 03/15/2018 05/10/2018 Inactive Lovenox 40 mg/0.4 mL subcutaneous syringe RxNorm: 443920 40 Mil ligram(s) SQ QD 01/27/2018 04/11/2018 Inactive omeprazole 40 mg capsule,delayed release RxNorm: 946970 TAKE 1 CAPSULE BY MOUTH TWICE DAILY 01/23/2018 06/26/2018 Inactive pravastatin 40 mg tablet RxNorm: 691837 TAKE 1 TABLET BY MOUTH ONCE DAILY 01/23/2018 12/10/2018 Inactive metformin ER 500 mg tablet,extended release 24 hr RxNorm: 86 0975 Tablet(s) 1 Tablet(s) PO BID 01/16/2018 01/15/2018 Inactive Toprol XL 200 mg tablet,extended release RxNorm: 827033 TAKE 1 TABLET BY MOUTH ONCE DAILY 01/16/2018 04/10/2018 Inactive Coumadin 5 mg tablet RxNorm: 651666 TAKE 1 TABLET BY MOUTH ONCE DAILY 01/06/2018 03/14/2018 Inactive Celebrex 200 mg capsule RxNorm: 765629 1 Capsule(s) PO BID 12/28/19 18 03/26/2018 Inactive metformin ER 500 mg tablet,extended release 24 hr RxNorm: 86 0975 1 Tablet(s) PO BID Needs APPT 12/21/2017 01/16/2018 Inactive omeprazole 40 mg capsule,delayed release RxNorm: 960116 TAKE 1 CAPSULE BY MOUTH TWICE DAILY 11/02/2017 01/22/2018 Inactive Celebrex 200 mg capsule RxNorm: 162809 1 Capsule(s) PO QD 11/01/2017 12/26/2017 Inactive Coumadin 5 mg tablet RxNorm: 359242 Tablet(s) TAKE ONE TABLET BY MOUTH ONCE DAILY. 10/31/2017 12/29/2017 Inactive warfarin 1 mg tablet RxNorm: 758487 1 Tablet(s) PO QD 10/31/201703/22 Inactive spironolactone 25 mg tablet RxNorm: 405305 TAKE TWO TAB LETS BY MOUTH IN THE MORNING 10/31/2017 04/23/2018 Inactive metformin ER 500 mg tablet,extended release 24 hr RxNorm: 86 0975 1 Tablet(s) PO BID Needs updated fasting lab 10/20/2017 12/21/2017 Inactive Medrol (Dale) 4 mg tablets in a dose pack RxNorm: 367406 Tablet(s) PO take as directed 10/12/2017 12/15/2017 Inactive Celebrex 200 mg capsule RxNorm: 364842 1 Capsule(s) PO QD 10/03/2017 10/02/2017 Inactive spironolactone 25 mg tablet RxNorm: 863484 TAKE TWO TAB LETS BY MOUTH IN THE MORNING 09/19/2017 10/30/2017 Inactive Zithromax Z-Dale 250 mg tablet RxNorm: 377792 Tablet(s) PO take as directed 09/16/2017 10/11/2017 Inactive Medrol (Dale) 4 mg tablets in a dose pack RxNorm: 565301 Tablet(s) take as directed PO 09/16/2017 10/11/2017 Inactive doxycycline hyclate 100 mg tablet RxNorm: 8878812 1 Tablet(s) PO BI D 09/16/2017 09/15/2017 Inactive doxycycline hyclate 100 mg tablet RxNorm: 7861921 1 Tablet(s) PO BI D 09/16/2017 09/25/2017 Inactive Tessalon Perles 100 mg capsule RxNorm: 391884 1 Capsule(s) PO T ID as needed 09/16/2017 12/15/2017 Inactive warfarin 1 mg tablet RxNorm: 018498 1 Tablet(s) PO QD 09/06/201710/19 Inactive Coumadin 5 mg tablet RxNorm: 019543 Tablet(s) TAKE ONE TABLET BY MOUTH ONCE DAILY. 09/06/2017 10/31/2017 Inactive Toprol XL 200 mg tablet,extended release RxNorm: 417108 1 Table t(s) PO QD 2017 01/02/2018 Inactive warfarin 1 mg tablet RxNorm: 080993 1 Tablet(s) PO QD DUE FOR L ABS AUGUST 12 08/29/2017 09/06/2017 Inactive Coumadin 5 mg tablet RxNorm: 697936 Tablet(s) TAKE ONE TABLET BY MOUTH ONCE DAILY. DUE FOR PT/INR AUGUST 12 08/29/2017 09/06/2017 Inactive Coumadin 5 mg tablet RxNorm: 843788 Tablet(s) TAKE ONE TABLET BY MOUTH ONCE DAILY. DUE FOR PT/INR AUGUST 12 08/01/2017 08/29/2017 Inactive warfarin 1 mg tablet RxNorm: 605724 1 Tablet(s) PO QD DUE FOR L ABS AUGUST 12 08/01/2017 08/29/2017 Inactive scopolamine 1 mg over 3 days transdermal patch RxNorm: 73521 2 1 TD take off in 72 hours. 08/01/2017 12/26/2017 Inactive pravastatin 40 mg tablet RxNorm: 554903 Tablet(s) TAKE ONE TABLET BY MOUTH ONCE DAILY 07/07/2017 01/02/2018 Inactive Coumadin 5 mg tablet RxNorm: 055907 Tablet(s) TAKE ONE TABLET BY MOUTH ONCE DAILY. DUE FOR PT/INR. 06/29/2017 08/01/2017 Inactive warfarin 1 mg tablet RxNorm: 863024 1 Tablet(s) PO QD 06/29/201707/19 Inactive Coumadin 5 mg tablet RxNorm: 578144 TAKE ONE TABLET BY MOUTH ONCE DAILY. DUE FOR PT/INR. 05/30/2017 06/29/2017 Inactive omeprazole 40 mg capsule,delayed release RxNorm: 370779 1 Capsu le(s) PO BID 05/30/2017 08/27/2017 Inactive Celebrex 200 mg capsule RxNorm: 829985 1 Capsule(s) PO QD 05/23/2017 10/03/2017 Inactive metformin ER 500 mg tablet,extended release 24 hr RxNorm: 86 0975 TAKE ONE TABLET BY MOUTH TWICE DAILY 05/20/2017 10/20/2017 Inactive Coumadin 5 mg tablet RxNorm: 872871 1 Tablet(s) PO QD due for PT/IN R 04/25/2017 05/24/2017 Inactive warfarin 1 mg tablet RxNorm: 889686 1 Tablet(s) PO QD due for l abs this week 03/16/2017 06/29/2017 Inactive omeprazole 40 mg capsule,delayed release RxNorm: 874487 1 Capsu le(s) PO BID 03/16/2017 05/30/2017 Inactive Celebrex 200 mg capsule RxNorm: 294466 1 Capsule(s) PO BID as n eeded for pain 03/16/2017 05/22/2017 Inactive Coumadin 5 mg tablet RxNorm: 097211 1 Tablet(s) PO QD due for PT/IN R 03/16/2017 04/14/2017 Inactive Celebrex 200 mg capsule RxNorm: 171327 1 Capsule(s) PO BID as n eeded for pain 02/09/2017 03/15/2017 Inactive Toprol XL 200 mg tablet,extended release RxNorm: 791029 1 Table t(s) PO QD 02/08/2017 2017 Inactive Celebrex 200 mg capsule RxNorm: 130762 1 Capsule(s) PO BID as n eeded for pain 01/14/2017 02/08/2017 Inactive omeprazole 40 mg capsule,delayed release RxNorm: 746015 1 Capsu le(s) PO BID 01/12/2017 03/16/2017 Inactive Coumadin 5 mg tablet RxNorm: 552526 1 Tablet(s) PO QD 12/15/201602/19 Inactive warfarin 1 mg tablet RxNorm: 806650 1 Tablet(s) PO QD 12/15/201602/19 Inactive metformin ER 500 mg tablet,extended release 24 hr RxNorm: 86 0975 Tablet(s) TAKE ONE TABLET BY MOUTH TWICE DAILY 11/29/2016 02/26/2017 Inactive omeprazole 40 mg capsule,delayed release RxNorm: 280615 1 Capsu le(s) PO BID 11/29/2016 12/28/2016 Inactive pravastatin 40 mg tablet RxNorm: 561034 Tablet(s) TAKE ONE TABLET BY MOUTH ONCE DAILY 11/19/2016 07/07/2017 Inactive omeprazole 40 mg capsule,delayed release RxNorm: 615177 1 Capsu le(s) PO BID 10/19/2016 10/18/2016 Inactive omeprazole 40 mg capsule,delayed release RxNorm: 313553 1 Capsu le(s) PO BID 10/19/2016 11/17/2016 Inactive pantoprazole 40 mg tablet,delayed release RxNorm: 248136 1 Tabl et(s) PO QD 09/30/2016 10/18/2016 Inactive pantoprazole 40 mg tablet,delayed release RxNorm: 346180 1 Tabl et(s) PO QD 09/30/2016 09/29/2016 Inactive Zofran ODT 4 mg disintegrating tablet RxNorm: 726408 1 Tablet(s) PO Q4H as needed for nausea 09/15/2016 01/02/2017 Inactive Coumadin 5 mg tablet RxNorm: 329888 1 Tablet(s) PO QD 09/14/201611/20 Inactive warfarin 1 mg tablet RxNorm: 420825 1 Tablet(s) PO QD 09/14/201611/20 Inactive spironolactone 25 mg tablet RxNorm: 166423 2 Tablet(s) PO QAM 09/0301/02/2017 Inactive Wellbutrin XL 300 mg 24 hr tablet, extended release RxNorm: 166989 TAKE ONE TABLET BY MOUTH ONCE DAILY 08/26/2016 12/26/2017 Inactive Toprol XL 200 mg tablet,extended release RxNorm: 752204 1 Table t(s) PO QD 07/28/2016 02/08/2017 Inactive metformin ER 500 mg tablet,extended release 24 hr RxNorm: 86 0975 Tablet(s) TAKE ONE TABLET BY MOUTH TWICE DAILY 07/15/2016 11/29/2016 Inactive cyclobenzaprine 5 mg tablet RxNorm: 955819 1 Tablet(s) PO QHS f or spasm 07/08/2016 08/06/2016 Inactive Celebrex 200 mg capsule RxNorm: 1 Capsule(s) PO BID 07/08/2016 Inactive spironolactone 25 mg tablet RxNorm: 127819 1 Tablet(s) PO QAM 07/0609/02/2016 Inactive Wellbutrin XL 300 mg 24 hr tablet, extended release RxNorm: 132003 TAKE ONE TABLET BY MOUTH ONCE DAILY 06/15/2016 07/14/2016 Inactive Coumadin 5 mg tablet RxNorm: 346790 1 Tablet(s) PO QD 06/08/201608/20 Inactive warfarin 1 mg tablet RxNorm: 868904 1 Tablet(s) PO QD 06/08/201608/20 Inactive Toprol XL 200 mg tablet,extended release RxNorm: 912369 TAKE ONE TABLET BY MOUTH ONCE DAILY 04/26/2016 07/28/2016 Inactive pravastatin 40 mg tablet RxNorm: 131846 TAKE ONE TABLET BY MOUT H ONCE DAILY 04/19/2016 10/15/2016 Inactive Coumadin 5 mg tablet RxNorm: 904147 1 Tablet(s) PO QD 03/09/201605/19 Inactive warfarin 1 mg tablet RxNorm: 327637 1 Tablet(s) PO QD 03/09/201605/19 Inactive metformin ER 500 mg tablet,extended release 24 hr RxNorm: 86 0975 TAKE ONE TABLET BY MOUTH TWICE DAILY 02/25/2016 07/15/2016 Inactive spironolactone 25 mg tablet RxNorm: 589594 TAKE ONE TAB LET BY MOUTH ONCE DAILY IN THE MORNING 02/25/2016 07/06/2016 Inactive prednisone 20 mg tablet RxNorm: 961023 1 Tablet(s) PO QAM 02/16/2016 02/20/2016 Inactive cefdinir 300 mg capsule RxNorm: 830419 2 Capsule(s) PO QD 02/16/2016 02/25/2016 Inactive Toprol XL 200 mg tablet,extended release RxNorm: 555730 TAKE ONE TABLET BY MOUTH ONCE DAILY 01/26/2016 04/24/2016 Inactive Aciphex 20 mg tablet,delayed release RxNorm: 314292 1 Tablet(s) PO BID 12/24/2015 09/29/2016 Inactive Omeprazole and Pepci d have not helped. Coumadin 5 mg tablet RxNorm: 736702 1 Tablet(s) PO QD 12/10/201502/19 Inactive Coumadin 5 mg tablet RxNorm: 755382 1 Tablet(s) PO QD 12/08/201511/20 Inactive Toprol XL 200 mg tablet,extended release RxNorm: 830860 TAKE ONE TABLET BY MOUTH ONCE DAILY 11/20/2015 01/18/2016 Inactive warfarin 1 mg tablet RxNorm: 181950 1 Tablet(s) PO QD 11/03/201502/19 Inactive pravastatin 40 mg tablet RxNorm: 592821 Tablet(s) TAKE ONE TABLET BY MOUTH ONCE DAILY 10/20/2015 01/17/2016 Inactive pravastatin 40 mg tablet RxNorm: 038645 TAKE ONE TABLET BY MOUT H ONCE DAILY 10/20/2015 10/19/2015 Inactive metformin ER 500 mg tablet,extended release 24 hr RxNorm: 86 0975 TAKE ONE TABLET BY MOUTH TWICE DAILY 10/03/2015 12/31/2015 Inactive Toprol XL 200 mg tablet,extended release RxNorm: 338499 TAKE ONE TABLET BY MOUTH ONCE DAILY 09/17/2015 11/15/2015 Inactive Coumadin 5 mg tablet RxNorm: 040596 1 Tablet(s) PO QD 09/02/201511/19 Inactive Wellbutrin XL 300 mg 24 hr tablet, extended release RxNorm: 102511 TAKE ONE TABLET BY MOUTH ONCE DAILY 08/01/2015 10/29/2015 Inactive Pepcid 20 mg tablet RxNorm: 745561 1 Tablet(s) PO BID as needed 05/24/2017 Inactive warfarin 1 mg tablet RxNorm: 862857 TAKE ONE TABLET BY MOUTH ON CE DAILY 07/08/2015 11/03/2015 Inactive pravastatin 40 mg tablet RxNorm: 959149 1 Tablet(s) PO QD 07/08/2015 10/05/2015 Inactive spironolactone 25 mg tablet RxNorm: 270425 TAKE ONE TAB LET BY MOUTH ONCE DAILY IN THE MORNING 06/13/2015 09/10/2015 Inactive Coumadin 5 mg tablet RxNorm: 790633 1 Tablet(s) PO QD 06/05/201508/19 Inactive Wellbutrin XL 300 mg 24 hr tablet, extended release RxNorm: 450891 TAKE ONE TABLET BY MOUTH ONCE DAILY 05/16/2015 09/26/2018 Inactive Wellbutrin XL 300 mg 24 hr tablet, extended release RxNorm: 271694 TAKE ONE TABLET BY MOUTH ONCE DAILY 05/16/2015 06/14/2015 Inactive metformin ER 500 mg tablet,extended release 24 hr RxNorm: 86 0975 TAKE ONE TABLET BY MOUTH TWICE DAILY 05/16/2015 08/13/2015 Inactive pravastatin 40 mg tablet RxNorm: 540806 1 Tablet(s) PO QD 04/10/2015 07/07/2015 Inactive Aciphex 20 mg tablet,delayed release RxNorm: 522736 1 Tablet(s) PO BID 03/07/2015 09/02/2015 Inactive Omeprazole and Pepci d have not helped. Toprol XL 200 mg tablet,extended release RxNorm: 147482 1 Table t(s) PO QD 03/05/2015 08/31/2015 Inactive Aciphex 20 mg tablet,delayed release RxNorm: 400583 1 Tablet(s) PO QD 03/04/2015 03/06/2015 Inactive Omeprazole and Pepci d have not helped. Coumadin 5 mg tablet RxNorm: 828415 1 Tablet(s) PO QD 02/28/201511/2015 Inactive Aciphex 20 mg tablet,delayed release RxNorm: 707745 1 Tablet(s) PO BID 02/11/2015 03/03/2015 Inactive Omeprazole and Pepci d have not helped. metformin ER 500 mg tablet,extended release 24 hr RxNorm: 86 0975 1 Tablet(s) PO BID 01/10/2015 04/09/2015 Inactive pravastatin 40 mg tablet RxNorm: 755771 1 Tablet(s) PO QD 01/06/2015 04/05/2015 Inactive Wellbutrin XL 300 mg 24 hr tablet, extended release RxNorm: 531068 TAKE ONE TABLET BY MOUTH ONCE DAILY 12/19/2014 02/16/2015 Inactive amoxicillin 500 mg capsule RxNorm: 091879 2 Capsule(s) PO BID 12/0612/15/2014 Inactive Flonase 50 mcg/actuation nasal spray,suspension RxNorm: 8963 23 2 [place] each nostril NASAL QD 12/06/2014 03/05/2015 Inactive Coumadin 5 mg tablet RxNorm: 885244 1 Tablet(s) PO QD 11/28/201410/2014 Inactive spironolactone 25 mg tablet RxNorm: 607098 1 Tablet(s) PO QAM 11/2602/23/2015 Inactive Coumadin 5 mg tablet RxNorm: 295861 1 Tablet(s) PO QD 1 Tablet(s) PO QD- NEED TO CHECK LABS 10/30/2014 11/28/2014 Inactive warfarin 1 mg tablet RxNorm: 701818 1 Tablet(s) PO QD 10/30/201409/2015 Inactive Aciphex 20 mg tablet,delayed release RxNorm: 051242 1 Tablet(s) PO QD 10/02/2014 02/10/2015 Inactive Omeprazole and Pepci d have not helped. Coumadin 5 mg tablet RxNorm: 921644 1 Tablet(s) PO QD 1 Tablet(s) PO QD- NEED TO CHECK LABS 09/30/2014 10/30/2014 Inactive pravastatin 40 mg tablet RxNorm: 172902 1 Tablet(s) PO QD 09/25/2014 01/06/2015 Inactive warfarin 1 mg tablet RxNorm: 140173 1 Tablet(s) PO QD T [place] ONE TABLET BY MOUTH DIRECTED ON MON AND THUR 08/28/2014 10/29/2014 Inactive metformin ER 500 mg tablet,extended release 24 hr RxNorm: 86 0975 1 Tablet(s) PO BID 08/28/2014 01/10/2015 Inactive amoxicillin 875 mg tablet RxNorm: 029923 1 Tablet(s) PO BID 015 08/18/2014 Inactive Toprol XL 200 mg tablet,extended release RxNorm: 583753 TAKE ONE TABLET BY MOUTH ONCE DAILY 07/22/2014 03/05/2015 Inactive Coumadin 5 mg tablet RxNorm: 256591 1 Tablet(s) PO QD 07/01/201409/18 Inactive amoxicillin 875 mg tablet RxNorm: 106012 1 Tablet(s) PO BID 015 06/30/2014 Inactive pravastatin 40 mg tablet RxNorm: 631009 1 Tablet(s) PO QD needs fasting labs 06/19/2014 09/25/2014 Inactive Coumadin 5 mg tablet RxNorm: 743543 1 Tablet(s) PO QD 1 Tablet(s) PO QD TAKE ONE TABLET BY MOUTH ONCE DAILY-need labs 05/28/2014 07/01/2014 Inactive warfarin 1 mg tablet RxNorm: 815457 1 Tablet(s) PO As Directed 05/1908/28/2014 Inactive pravastatin 40 mg tablet RxNorm: 924410 1 Tablet(s) PO QD needs fasting labs 05/14/2014 06/19/2014 Inactive metformin ER 500 mg tablet,extended release 24 hr RxNorm: 86 0975 1 Tablet(s) PO BID 04/25/2014 08/28/2014 Inactive spironolactone 25 mg tablet RxNorm: 561306 1 Tablet(s) PO QAM 04/2511/26/2014 Inactive Coumadin 5 mg tablet RxNorm: 512300 1 Tablet(s) PO QD 1 Tablet(s) PO QD TAKE ONE TABLET BY MOUTH ONCE DAILY 04/23/2014 05/28/2014 Inactive Coumadin 5 mg tablet RxNorm: 156152 1 Tablet(s) PO QD 1 Tablet(s) PO QD TAKE ONE TABLET BY MOUTH ONCE DAILY 03/22/2014 04/20/2014 Inactive Tessalon Perles 100 mg capsule RxNorm: 071626 1 Capsule(s) PO TID 0 03/22/2014 03/28/2014 Inactive cefdinir 300 mg capsule RxNorm: 801549 2 Capsule(s) PO QD 03/22/2014 03/31/2014 Inactive Medrol (Dale) 4 mg tablets in a dose pack RxNorm: 274658 Tablet(s) PO as directed 03/05/2014 08/08/2014 Inactive Coumadin 5 mg tablet RxNorm: 841196 1 Tablet(s) PO QD 1 Tablet(s) PO QD TAKE ONE TABLET BY MOUTH ONCE DAILY 02/19/2014 03/20/2014 Inactive pravastatin 40 mg tablet RxNorm: 097418 1 Tablet(s) PO QD 02/04/2014 05/14/2014 Inactive Coumadin 5 mg tablet RxNorm: 236303 1 Tablet(s) PO QD T [place] ONE TABLET BY MOUTH ONCE DAILY 01/21/2014 02/19/2014 Inactive Medrol (Dale) 4 mg tablets in a dose pack RxNorm: 394924 Tablet(s) PO as directed 01/18/2014 03/04/2014 Inactive cefdinir 300 mg capsule RxNorm: 362400 2 Capsule(s) PO QD 01/16/2014 01/25/2014 Inactive metformin ER 500 mg tablet,extended release 24 hr RxNorm: 86 0975 1 Tablet(s) PO BID 12/17/2013 04/25/2014 Inactive Wellbutrin SR 150 mg tablet,sustained-release RxNorm: 921738 1 Tablet(s) PO BID 11/30/2013 02/27/2014 Inactive spironolactone 25 mg tablet RxNorm: 846666 1 Tablet(s) PO QAM 10/2204/25/2014 Inactive Macrobid 100 mg capsule RxNorm: 319672 1 Capsule(s) PO BID 10/20/19 14 10/25/2013 Inactive Macrobid 100 mg capsule RxNorm: 791253 1 Capsule(s) PO BID 10/20/19 14 10/18/2013 Inactive Toprol XL 100 mg tablet,extended release RxNorm: 997059 1 Table t(s) PO QD 10/15/2013 01/15/2014 Inactive Toprol XL 200 mg tablet,extended release RxNorm: 337387 1 Table t(s) PO QD 10/02/2013 07/22/2014 Inactive Wellbutrin XL 300 mg 24 hr tablet, extended release RxNorm: 691914 1 Tablet(s) PO QD 09/28/2013 12/19/2014 Inactive Aciphex 20 mg tablet,delayed release RxNorm: 124180 1 Tablet(s) PO QD 08/29/2013 10/02/2014 Inactive Omeprazole and Pepci d have not helped. Coumadin 5 mg tablet RxNorm: 159406 1 Tablet(s) PO QD 08/14/201307/20 Inactive Coumadin 5 mg tablet RxNorm: 557646 1 Tablet(s) PO QD 08/14/201305/2013 Inactive pravastatin 40 mg tablet RxNorm: 402906 1 Tablet(s) PO QD 07/24/2013 02/04/2014 Inactive warfarin 1 mg tablet RxNorm: 666687 1 Tablet(s) PO QD T [place] ONE TABLET BY MOUTH DIRECTED ON TUE AND 07/09/2013 05/28/2014 Inactive warfarin 5 mg tablet RxNorm: 784434 1 Tablet(s) PO QD T [place] ONE TABLET BY MOUTH EVERY DAY 06/08/2013 07/07/2013 Inactive spironolactone 25 mg tablet RxNorm: 269503 1 Tablet(s) PO QAM 05/3010/15/2013 Inactive clindamycin 300 mg capsule RxNorm: 235368 2 Capsule(s) PO TID 04/1704/30/2013 Inactive warfarin 5 mg tablet RxNorm: 251353 1 Tablet(s) PO QD 03/12/201305/20 Inactive azithromycin 250 mg tablet RxNorm: 035925 2 Tablet(s) PO QD 013 03/07/2013 Inactive metformin ER 500 mg tablet,extended release 24 hr RxNorm: 86 0975 1 Tablet(s) PO BID 02/22/2013 12/17/2013 Inactive spironolactone 25 mg tablet RxNorm: 646764 1 Tablet(s) PO QAM 01/2205/30/2013 Inactive metformin ER 500 mg tablet,extended release 24 hr RxNorm: 86 0977 1 Tablet(s) PO BID 01/11/2013 02/21/2013 Inactive pravastatin 40 mg tablet RxNorm: 692268 1 Tablet(s) PO QD 01/11/2013 07/24/2013 Inactive warfarin 5 mg tablet RxNorm: 546147 1 Tablet(s) PO QD 01/04/201302/19 Inactive warfarin 1 mg tablet RxNorm: 600141 Tablet(s) PO TAKE O NE TABLET BY MOUTH DIRECTED ON TUE AND 12/14/2012 07/08/2013 Inactive scopolamine 1.5 mg 72 hr Transderm Patch RxNorm: 194068 TD Apply 1 patch behind ear every 72 hours, replace after 3 days. 11/08/2012 01/15/2014 Inacti ve Pepcid 20 mg tablet RxNorm: 787801 1 Tablet(s) PO BID as needed 01/31/2013 Inactive Famvir 500 mg tablet RxNorm: 317758 1 Tablet(s) PO Q8H 11/03/2012 Inactive Aciphex 20 mg tablet,delayed release RxNorm: 827678 1 Tablet(s) PO QD 11/03/2012 05/01/2013 Inactive Omeprazole and Pepci d have not helped. gabapentin 300 mg capsule RxNorm: 747969 Capsule(s) PO TID 11/04/19 13 01/15/2014 Inactive warfarin 5 mg tablet RxNorm: 898036 1 Tablet(s) PO QD 11/02/201212/19 Inactive Wellbutrin XL 300 mg 24 hr tablet, extended release RxNorm: 374522 1 Tablet(s) PO QD 10/17/2012 04/30/2013 Inactive pravastatin 40 mg tablet RxNorm: 362761 Tablet(s) PO TA KE ONE TABLET BY MOUTH EVERY DAY. NEED FASTING LABS 09/18/2012 01/10/2013 Inactive Toprol XL 200 mg tablet,extended release RxNorm: 243528 Tablet(s) PO TAKE ONE TABLET BY MOUTH EVERY DAY 09/08/2012 10/01/2013 Inactive warfarin 5 mg tablet RxNorm: 785787 1 Tablet(s) PO QD 08/31/201210/19 Inactive pravastatin 40 mg tablet RxNorm: 616326 1 Tablet(s) PO QD Needs fasting labs 08/18/2012 09/16/2012 Inactive TAKE ONE TABLET BY M OUTH EVERY DAY warfarin 1 mg tablet RxNorm: 602062 1 Tablet(s) PO As directed on Mon and Th08/11/2012 12/13/2012 Inactive spironolactone 25 mg tablet RxNorm: 352881 1 Tablet(s) PO QAM 07/1110/08/2012 Inactive warfarin 5 mg tablet RxNorm: 646685 1 Tablet(s) PO QD 07/03/201208/19 Inactive Diflucan 100 mg tablet RxNorm: 033403 1 Tablet(s) PO QD 05/04/2012 Inactive Cipro 500 mg tablet RxNorm: 600174 1 Tablet(s) PO BID 05/04/201204/22 Inactive Aciphex 20 mg tablet,delayed release RxNorm: 294978 1 Tablet(s) PO QD 05/04/2012 07/02/2012 Inactive Omeprazole and Pepci d have not helped. warfarin 5 mg tablet RxNorm: 753354 1 Tablet(s) PO QD 05/02/201206/19 Inactive warfarin 5 mg tablet RxNorm: 065111 1 Tablet(s) PO QD 03/02/201204/21 Inactive Toprol XL 200 mg tablet,extended release RxNorm: 821117 1 Table t(s) PO QD 03/02/2012 05/30/2012 Inactive spironolactone 25 mg tablet RxNorm: 267347 1 Tablet(s) PO QAM 02/0707/11/2012 Inactive pravastatin 40 mg tablet RxNorm: 788447 Tablet(s) PO 01/31/201208/17 Inactive TAKE ONE TABLET BY MOUTH EVERY DAY pravastatin 40 mg tablet RxNorm: 906961 1 Tablet(s) PO QD 01/31/2012 08/18/2012 Inactive omeprazole 40 mg capsule,delayed release RxNorm: 280199 1 Capsule(s) PO QD for stomach 01/11/2012 11/02/2012 Inactive for stomach warfarin 5 mg tablet RxNorm: 974845 1 Tablet(s) PO QD 01/03/201202/18 Inactive warfarin 5 mg tablet RxNorm: 953337 1 Tablet(s) PO QD 12/03/201112/19 Inactive pravastatin 40 mg tablet RxNorm: 089918 1 Tablet(s) PO QD 11/25/2011 01/23/2012 Inactive cefdinir 300 mg Cap RxNorm: 128186 1 Capsule(s) PO BID 10/11/201103/2011 Inactive Culturelle 10 billion cell Cap RxNorm: 190599 1 Capsule(s) PO BID 0 10/11/2011 11/09/2011 Inactive Diflucan 100 mg Tab RxNorm: 271596 1 Tablet(s) PO QD 10/11/201110/19 Inactive Wellbutrin XL 300 mg 24 hr tablet, extended release RxNorm: 413070 1 Tablet(s) PO QD 09/14/2011 10/17/2012 Inactive pravastatin 40 mg tablet RxNorm: 002802 1 Tablet(s) PO QD 08/25/2011 11/25/2011 Inactive Coumadin 5 mg tablet RxNorm: 577810 Tablet(s) PO Take as direct ed by doctor. 07/07/2011 12/03/2011 Inactive Singulair 10 mg Tab RxNorm: 903010 1 Tablet(s) PO QD al lergy medication. (Please try to be consistent in dosing) 06/23/2011 01/15/2014 Inactive Diflucan 100 mg Tab RxNorm: 617549 1 Tablet(s) PO QD 06/14/201107/02 Inactive cefdinir 300 mg Cap RxNorm: 425927 1 Capsule(s) PO BID 06/14/201106/2011 Inactive pravastatin 40 mg Tab RxNorm: 956863 1 Tablet(s) PO QD 05/25/201108/2011 Inactive warfarin 5 mg Tab RxNorm: 404645 Tablet(s) PO 05/25/2011 10/18/2011 In active TAKE ONE TABLET BY MOUTH EVERY DAY Toprol XL 200 mg tablet,extended release RxNorm: 783703 1 Table t(s) PO QD 03/05/2011 06/02/2011 Inactive spironolactone 25 mg tablet RxNorm: 827149 1 Tablet(s) PO QAM 02/2402/08/2012 Inactive omeprazole 40 mg capsule,delayed release RxNorm: 454335 1 Capsule(s) PO QD for stomach 01/06/2011 01/11/2012 Inactive for stomach warfarin 5 mg Tab RxNorm: 747231 1 Tablet(s) PO QD 12/17/2010 011 Inactive warfarin 5 mg Tab RxNorm: 245054 1 Tablet(s) PO QD 11/18/2010 011 Inactive spironolactone 25 mg Tab RxNorm: 527499 1 Tablet(s) PO QAM 11/13/19 11 02/24/2011 Inactive Coumadin 6 mg Tab RxNorm: 376711 1 Tablet(s) PO QD 10/28/2010 011 Inactive May have generic hydrochlorothiazide 25 mg Tab RxNorm: 089110 1 Tablet(s) PO QAM 11/11/2010 Inactive Wellbutrin XL 300 mg 24 hr Tab RxNorm: 363701 1 Tablet(s) PO QD 09/14/2011 Inactive Septra DS 800 mg-160 mg Tab RxNorm: 566624 1 Tablet(s) PO BID 06/0806/17/2010 Inactive Pyridium 100 mg Tab RxNorm: 0386140 1 Tablet(s) PO TID 06/08/2010 Inactive Wellbutrin XL 300 mg 24 hr Tab RxNorm: 775599 1 Tablet(s) PO QD 05/201007/15/2010 Inactive hydroxyzine 25 mg Tab RxNorm: 572215 1 Tablet(s) PO QID prn itching--take routinely at bedtime. (pt. may not refil at this time but later) 05/20/2010 10/10/2011 Inactive Zyrtec 10 mg Tab RxNorm: 2726727 1 Tablet(s) PO BID 05/20/20102010 Inactive Coumadin 1 mg Tab RxNorm: 721039 1 Tablet(s) PO 6mg M-F, 7mg S-S 11/16/2010 Inactive hydroxyzine 25 mg Tab RxNorm: 131966 1 Tablet(s) PO QID prn itching--take routinely at bedtime 04/30/2010 05/19/2010 Inactive Toprol XL 200 mg 24 hr Tab RxNorm: 499284 1 Tablet(s) PO QD 011 06/23/2010 Inactive lisinopril-hydrochlorothiazide 10 mg-12.5 mg Tab RxNorm: 197 885 1 Tablet(s) PO QD 04/20/2010 04/29/2010 Inactive omeprazole 40 mg Cap, Delayed Release RxNorm: 269302 1 Capsule(s) PO QD for stomach 04/20/2010 08/17/2010 Inactive lisinopril-hydrochlorothiazide 10 mg-12.5 mg Tab RxNorm: 197 885 Tablet(s) PO 1QDAM - TAKE ONE TABLET BY MOUTH EVERY DAY IN THE MORNING 03/09/2010 Inactive lisinopril-hydrochlorothiazide 10 mg-12.5 mg Tab RxNorm: 197 885 1 Tablet(s) PO QD 02/27/2010 04/20/2010 Inactive Wellbutrin XL 300 mg 24 hr Tab RxNorm: 055055 1 Tablet(s) PO QD 05/21/2010 Inactive lisinopril-hydrochlorothiazide 10 mg-12.5 mg Tab RxNorm: 197 885 1 Tablet(s) PO QD 01/28/2010 02/26/2010 Inactive omeprazole 40 mg Cap, Delayed Release RxNorm: 320405 1 Capsule(s) PO QD for stomach 01/22/2010 04/20/2010 Inactive Altace 10 mg Cap RxNorm: 510059 1 Capsule(s) PO QD for BP 01/22/2010 03/22/2010 Inactive Coumadin 6 mg Tab RxNorm: 191707 1 Tablet(s) PO QD May have generic 12/03/2009 05/01/2010 Inactive Coumadin 6 mg Tab RxNorm: 483040 1 Tablet(s) PO 12/01/2009 12/02/2009 Inactive Coumadin 1 mg Tab RxNorm: 276961 1 Tablet(s) PO QD 11/28/2009 010 Inactive Coumadin 1 mg Tab RxNorm: 677893 1 Tablet(s) PO QD 07/02/2009 010 Inactive lisinopril-hydrochlorothiazide 20 mg-12.5 mg Tab RxNorm: 197 886 2 Tablet(s) PO QAM No Start Date 10/12/2010 Inactive Zofran ODT 4 mg disintegrating tablet RxNorm: 619326 1 Tablet(s) PO Q6H as needed for nausea No Start Date 09/14/2016 Inactive Wellbutrin XL 300 mg 24 hr Tab RxNorm: 352272 1 Tablet(s) PO QD No Start Date 02/02/2010 Inactive alprazolam 0.25 mg tablet RxNorm: 805838 1 Tablet(s) PO prior t o flight No Start Date 05/24/2017 Inactive hydrocodone-acetaminophen 5 mg-500 mg Tab RxNorm: 652451 1-2 Tablet(s) PO Q4H as needed for pain No Start Date 12/02/2010 Inactive Toprol XL 100 mg 24 hr Tab RxNorm: 320440 1 Tablet(s) PO QD No Star t Date 10/14/2013 Inactive Celebrex 200 mg capsule RxNorm: 231204 1 Capsule(s) PO QD No Start Date 05/22/2017 Inactive Flexeril 10 mg tablet RxNorm: 856807 1 Tablet(s) PO TID No Start Da te 04/02/2019 Inactive scopolamine 1 mg over 3 days transdermal patch RxNorm: 90958 2 1 TD take off in 72 hours. No Start Date 07/31/2017 Inactive OneTouch Ultra Test strips RxNorm: Test blood sugar daily No S tart Date 04/23/2018 Inactive Medrol (Dale) 4 mg tablets in a dose pack RxNorm: 185386 Tablet(s) PO As directed No Start Date 01/15/2014 Inactive Coumadin 5 mg Tab RxNorm: 794565 1 Tablet(s) PO QD No Start Date 06/19 Inactive Pepcid 40 mg Tab RxNorm: 504835 1 Tablet(s) PO QD No Start Date 06/23 Inactive prednisone 10 mg Tab RxNorm: 055416 1 Tablet(s) PO BID No Start Date 06/23/2010 Inactive spironolactone 25 mg tablet RxNorm: 119049 1 Tablet(s) PO QAM No St art Date 09/26/2018 Inactive scopolamine 1.5 mg 72 hr Transderm Patch RxNorm: 272742 TD Apply 1 patch behind ear every 72 hours, replace after 3 days. No Start Date 11/07/2012 Inacti ve azithromycin 250 mg Tab RxNorm: 314692 Tablet(s) PO 2 t abs on day one and one tab on days 2-5. (antibiotic) No Start Date 10/10/2011 Inactive Medrol (Dale) 4 mg Tabs in a Dose Pack RxNorm: 753234 1 Tablet(s) PO as directed. (steroid pack) No Start Date 10/10/2011 Inactive Lovenox 40 mg/0.4 mL subcutaneous syringe RxNorm: 725674 40 Mil ligram(s) SQ QD No Start Date 05/04/2018 Inactive Celebrex 200 mg capsule RxNorm: 589030 1 Capsule(s) PO BID as n eeded for pain No Start Date 01/13/2017 Inactive warfarin 1 mg tablet RxNorm: 899323 1 Tablet(s) PO As directed on Tue and No Start Date 08/10/2012 Inactive cefuroxime axetil 500 mg Tab RxNorm: 981773 1 Tablet(s) PO BID No S tart Date 06/13/2011 Inactive Lovenox 40 mg/0.4 mL subcutaneous syringe RxNorm: 618950 40 Mil ligram(s) SQ QD No Start Date 01/26/2018 Inactive Coumadin 5 mg tablet RxNorm: 974950 1 Tablet(s) PO QD No Start Date 0 08/13/2013 Inactive Medrol (Dale) 4 mg tablets in a dose pack RxNorm: 310036 Tablet(s) PO as directed No Start Date 01/17/2014 Inactive Coumadin 6 mg tablet RxNorm: 449552 1 Tablet(s) PO QD No Start Date 0 06/20/2016 Inactive warfarin 5 mg tablet RxNorm: 654118 1 Tablet(s) PO QD No Start Date 0 12/02/2011 Inactive Medrol (Dale) 4 mg Tabs in a Dose Pack RxNorm: 954713 Tablet(s) PO as directed No Start Date 06/23/2010 Inactive Flonase 50 mcg/actuation nasal spray,suspension RxNorm: 8963 23 2 [place] NASAL BID No Start Date 12/05/2014 Inactive Pepcid 20 mg tablet RxNorm: 087507 1 Tablet(s) PO BID as needed No Start Date 11/02/2012 Inactive spironolactone 25 mg tablet RxNorm: 607079 1 Tablet(s) PO QAM No St art Date 04/02/2019 Inactive Medication Administered No Medication Administered data Immunizations No Immunization data Results Observation Observation Code Item Item Code Result Date S ervice Location MICROALBUMIN URINE RANDOM 69183 CREAT MG/D 139 MG/DL Unknown MICROALBUMIN URINE RANDOM 17985 CRE/100 1.39 G/L 12/20 Unknown Procedures Procedure Codes Date URINALYSIS NONAUTO W/O SCOPE CPT-4: 85683 09/27/2018 URINE CULTURE/ COLONY COUNT CPT-4: 55521 09/27/2018 URINALYSIS NONAUTO W/O SCOPE CPT-4: 04064 10/13/2017 URINE CULTURE/ COLONY COUNT CPT-4: 70646 10/13/2017 STREP A ASSAY W/OPTIC CPT-4: 03597 06/21/2016 STREP A ASSAY W/OPTIC CPT-4: 59264 06/24/2014 THER/PROPH/DIAG INJ SC/IM CPT-4: 49953 03/22/2014 METHYLPREDNISOLONE 40 MG INJ CPT-4: J1030 03/22/2014 TRIAMCINOLONE ACET INJ NOS CPT-4: J3301 03/22/2014 URINALYSIS NONAUTO W/O SCOPE CPT-4: 14700 10/19/2013 URINE CULTURE/ COLONY COUNT CPT-4: 07928 10/19/2013 CEFTRIAXONE SODIUM INJECTION CPT-4: J0696 03/02/2013 THER/PROPH/DIAG INJ SC/IM CPT-4: 19280 03/02/2013 CEFTRIAXONE SODIUM INJECTION CPT-4: J0696 03/01/2013 THER/PROPH/DIAG INJ SC/IM CPT-4: 92141 03/01/2013 THER/PROPH/DIAG INJ SC/IM CPT-4: 95879 03/01/2013 METHYLPREDNISOLONE 40 MG INJ CPT-4: J1030 03/01/2013 TRIAMCINOLONE ACET INJ NOS CPT-4: J3301 03/01/2013 MICROALBUMIN QUANTITATIVE CPT-4: 05107 01/11/2013 URINE CULTURE/ COLONY COUNT CPT-4: 46723 05/04/2012 URINALYSIS NONAUTO W/O SCOPE CPT-4: 50062 05/04/2012 URINE CULTURE/ COLONY COUNT CPT-4: 15195 05/29/2010 TRIAMCINOLONE ACET INJ NOS CPT-4: J3301 05/20/2010 METHYLPREDNISOLONE 40 MG INJ CPT-4: J1030 05/20/2010 THER/PROPH/DIAG INJ SC/IM CPT-4: 04221 05/20/2010 Vital Signs Date Vital 04/03/2019 Blood [...] 1: 134/78 Code: 8480-6 BMI: 35.1 Code: 25530-0 Heart Rate 1: 76 bpm Height: 5'9" Respiratory Rate: 20 bpm Temperature: 36 .6 (C) / 97.8 (F) Weight: 238 lbs 12/27/2017 Blood Pressure 1: 126/64 Code: 8480-6 BMI: 34.7 Code: 39153-6 Heart Rate 1: 72 bpm Height: 5'9" Respiratory Rate: 20 bpm Temperature: 36 .8 (C) / 98.2 (F) Weight: 235 lbs 10/12/2017 Blood Pressure 1: 142/80 Code: 8480-6 BMI: 35.1 Code: 41664-0 Heart Rate 1: 98 bpm Height: 5'9" Respiratory Rate: 22 bpm SpO2: 100% Tempera ture: 36.5 (C) / 97.7 (F) Weight: 238 lbs 09/16/2017 Blood Pressure 1: 136/82 Code: 8480-6 BMI: 34.1 Code: 76741-4 Heart Rate 1: 82 bpm Height: 5'9" Respiratory Rate: 18 bpm SpO2: 96% Tempera ture: 36.3 (C) / 97.3 (F) Weight: 231 lbs 05/25/2017 Blood Pressure 1: 122/82 Code: 8480-6 BMI: 32.3 Code: 61931-3 Heart Rate 1: 116 bpm Height: 5'9" Respiratory Rate: 20 bpm SpO2: 98% Tempera ture: 35.6 (C) / 96.1 (F) Weight: 219 lbs 01/03/2017 Blood Pressure 1: 126/78 Code: 8480-6 BMI: 33.4 Code: 76738-5 Heart Rate 1: 72 bpm Height: 5'9" Respiratory Rate: 20 bpm Temperature: 36 .8 (C) / 98.2 (F) Weight: 226 lbs 09/23/2016 Blood Pressure 1: 126/82 Code: 8480-6 BMI: 33.8 Code: 33747-3 Heart Rate 1: 80 bpm Height: 5'9" Respiratory Rate: 20 bpm SpO2: 97% Tempera ture: 36.8 (C) / 98.2 (F) Weight: 229 lbs 09/03/2016 Blood Pressure 1: 188/64 Code: 8480-6 Bl ood Pressure 2: 166/92 Code: 8480-6 BMI: 34.4 Code: 13470-6 Heart Rate 1: 66 bpm Height: 5'9" Res piratory Rate: 20 bpm SpO2: 98% Temperature: 35.7 (C) / 96.2 (F) Weight: 233 lbs 07/08/2016 Blood Pressure 1: 134/82 Code: 8480-6 Heart Rate 1: 64 bpm Height: 5'9" Respiratory Rate: 20 bpm SpO2: 97% Temperature: 36.6 (C) / 97.8 (F) Weight: 06/21/2016 Blood Pressure 1: 112/68 Code: 8480-6 BMI: 33.8 Code: 17013-9 Heart Rate 1: 64 bpm Height: 5'9" Respiratory Rate: 20 bpm SpO2: 95% Tempera ture: 36.3 (C) / 97.3 (F) Weight: 229 lbs 02/23/2016 Blood Pressure 1: 128/78 Code: 8480-6 BMI: 33.4 Code: 57888-5 Heart Rate 1: 74 bpm Height: 5'9" [...] 1: 122/80 Code: 8480-6 BMI: 32.2 Code: 34904-8 Heart Rate 1: 80 bpm Height: 5'9" Respiratory Rate: 20 bpm Temperature: 37 .0 (C) / 98.6 (F) Weight: 218 lbs 08/09/2014 Blood Pressure 1: 132/84 Code: 8480-6 BMI: 33.1 Code: 73399-5 Heart Rate 1: 72 bpm Height: 5'9" Respiratory Rate: 20 bpm Temperature: 36 .7 (C) / 98.0 (F) Weight: 224 lbs 06/24/2014 Blood Pressure 1: 132/80 Code: 8480-6 BMI: 32.8 Code: 86926-5 Heart Rate 1: 68 bpm Height: 5'9" Respiratory Rate: 20 bpm Temperature: 36 .4 (C) / 97.6 (F) Weight: 222 lbs 03/22/2014 Blood Pressure 1: 128/84 Code: 8480-6 BMI: 32.5 Code: 02521-2 Heart Rate 1: 78 bpm Height: 5'9" Respiratory Rate: 22 bpm Temperature: 36 .0 (C) / 96.8 (F) Weight: 220 lbs 03/05/2014 Blood Pressure 1: 124/78 Code: 8480-6 BMI: 31.9 Code: 14083-0 Heart Rate 1: 82 bpm Height: 5'9" Respiratory Rate: 20 bpm Temperature: 35 .8 (C) / 96.4 (F) Weight: 216 lbs 01/16/2014 Blood Pressure 1: 116/68 Code: 8480-6 BMI: 33.8 Code: 74096-7 Heart Rate 1: 72 bpm Height: 5'7" Respiratory Rate: 20 bpm Temperature: 36 .6 (C) / 97.9 (F) Weight: 216 lbs 05/10/2013 Blood Pressure 1: 124/86 Code: 8480-6 BMI: 34.3 Code: 59163-9 Heart Rate 1: 84 bpm Height: 5'7" [...] 1: 116/84 Code: 8480-6 BMI: 33.1 Code: 63962-6 Heart Rate 1: 64 bpm Height: 5'9" Respiratory Rate: 20 bpm Temperature: 36 .4 (C) / 97.6 (F) Weight: 224 lbs 01/11/2013 Blood Pressure 1: 126/84 Code: 8480-6 BMI: 35.3 Code: 74247-9 Heart Rate 1: 68 bpm Height: 5'9" Respiratory Rate: 20 bpm Temperature: 36 .7 (C) / 98.1 (F) Weight: 239 lbs 11/03/2012 Blood Pressure 1: 104/70 Code: 8480-6 BMI: 34.4 Code: 94779-5 Heart Rate 1: 72 bpm Height: 5'9" Respiratory Rate: 20 bpm Temperature: 36 .8 (C) / 98.3 (F) Weight: 233 lbs 05/04/2012 Blood Pressure 1: 124/74 Code: 8480-6 BMI: 33.7 Code: 37409-1 Heart Rate 1: 84 bpm Height: 5'9" Temperature: 36.3 (C) / 97.3 (F) Weight: 228 lbs 10/11/2011 Blood Pressure 1: 110/70 Code: 8480-6 BMI: 33.7 Code: 60408-8 Heart Rate 1: 64 bpm Height: 5'9" Temperature: 36.8 (C) / 98.3 (F) Weight: 228 lbs 06/23/2011 Blood Pressure 1: 114/70 Code: 8480-6 BMI: 33.4 Code: 80950-4 Heart Rate 1: 80 bpm Height: 5'9" Respiratory Rate: 20 bpm Temperature: 36 .7 (C) / 98.0 (F) Weight: 226 lbs 06/14/2011 Blood Pressure 1: 118/74 Code: 8480-6 BMI: 33.4 Code: 19034-0 Heart Rate 1: 80 bpm Height: 5'9" [...] 1: 126/82 Code: 8480-6 BMI: 32.6 Code: 04170-9 Heart Rate 1: 68 bpm Height: 5'9" [...] 1: 140/92 Code: 8480-6 BMI: 31.3 Code: 73332-4 Heart Rate 1: 60 bpm Height: 5'10" [...] upper back on 08/13/16 while camping around [place], [place]. Patient states is tender around tick [...] 01/22/2010 Encounters Encounter Performer Location Codes Date ([id number]) OFFICE/OUTPATIENT VISIT EST Diagnosis: Type 2 diabetes mellitus without complications[ICD10: E11.9] Diagnosis: Essential hypertension[ICD10: I10] Jessica OBRIEN [employer] CPT-4: 22360 04/03/2019 ([id number]) OFFICE/OUTPATIENT VISIT EST Diagnosis: Gastro-esophageal reflux disease without esophagitis[ICD10: K21.9] Diagnosis: Urinary tract infection, site not specified[ICD10: N39.0] Diagnosis: Ventral hernia without obstruction or gangrene[ICD10: K43.9] Jessica VO [employer] CPT-4: 05434 09/27/2018 ([id number]) OFFICE/OUTPATIENT VISIT EST Diagnosis: Essential (primary) hypertension[ICD10: I10] Diagnosis: Type 2 diabetes mellitus without complications[ICD10: E11.9] Diagnosis: Carpal tunnel syndrome, right upper limb[ICD10: G56.01] Diagnosis: Primary insomnia[ICD10: F51.01] Jessica VO [employer] CPT-4: 53205 04/24/2018 ([id number]) OFFICE/OUTPATIENT VISIT EST Diagnosis: Type 2 diabetes mellitus without complications[ICD10: E11.9] Diagnosis: Mixed hyperlipidemia[ICD10: E78.2] Diagnosis: Essential (primary) hypertension[ICD10: I10] Diagnosis: Pain in unspecified joint[ICD10: M25.50] Jessica VO [employer] CPT-4: 68464 12/27/2017 ([id number]) NURSE/OUTPATIENT VISIT EST Diagnosis: Hematuria, unspecified[ICD10: R31.9] Jessica [facility] CPT-4: 80344 10/13/2017 ([id number]) OFFICE/OUTPATIENT VISIT EST Diagnosis: Pleurodynia[ICD10: R07.81] Sofi HYMAN JUSTEN DO [facility] CPT-4: 74971 10/12/2017 ([id number]) OFFICE/OUTPATIENT VISIT EST Diagnosis: Acute bronchitis, unspecified[ICD10: J20.9] Sofi GEE DO [facility] CPT-4: 52262 09/16/2017 ([id number]) OFFICE/OUTPATIENT VISIT EST Diagnosis: Other specified postprocedural states[ICD10: Z98.890] Diagnosis: Cellulitis of neck[ICD10: L03.221] Diagnosis: Tachycardia, unspecified[ICD10: R00.0] Jessica BELTRAN [facility]: 69159 05/25/2017 ([id number]) OFFICE/OUTPATIENT VISIT EST Diagnosis: Lumbago with sciatica, right side[ICD10: M54.41] Diagnosis: Pain in unspecified joint[ICD10: M25.50] [facility] CPT-[facility]: 98080 01/03/2017 ([id number]) OFFICE/OUTPATIENT VISIT EST Diagnosis: Bitten or stung by nonvenomous insect and other nonvenomous arthropods, subsequent encounter[ICD10: W57.XXXD] Diagnosis: Essential (primary) hypertension[ICD10: I10] Diagnosis: Low back pain[ICD10: M54.5] Jessica VO S. O RENDER DO [facility] CPT-4: 15827 09/23/2016 OFFICE/OUTPATIENT VISIT EST Diagnosis: Bitten or stung by nonvenomous insect and other nonvenomous arthropods, initial encounter[ICD10: W57.XXXA] Diagnosis: Essential (primary) hypertension[ICD10: I10] Kaitlynn Mosley JESSICA [facility] CPT-4: 01249 09/03/2016 ([id number]) OFFICE/OUTPATIENT VISIT EST Diagnosis: Low back pain[ICD10: M54.5] Diagnosis: Radiculopathy, lumbosacral region[ICD10: M54.17] Jessica [facility] CPT-4: 72694 07/08/2016 ([id number]) OFFICE/OUTPATIENT VISIT EST Diagnosis: Acute pharyngitis, unspecified[ICD10: J02.9] Jessica [facility] CPT-4: 06153 06/21/2016 ([id number]) OFFICE/OUTPATIENT VISIT EST Diagnosis: Cough[ICD10: R05] Diagnosis: Fever, unspecified[ICD10: R50.9] Janiya [facility] CPT-4: 53924 02/23/2016 ([id number]) OFFICE/OUTPATIENT VISIT EST Diagnosis: Acute sinusitis, unspecified[ICD10: J01.90] Jessica [facility] CPT-4: 60075 02/16/2016 OFFICE/OUTPATIENT VISIT EST Diagnosis: Type 2 diabetes mellitus without complications[ICD10: E11.9] Diagnosis: Gastro-esophageal reflux disease without esophagitis[ICD10: K21.9] Diagnosis: Ventral hernia without obstruction or gangrene[ICD10: K43.9] Suki 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 CPT-4: 88210 01/28/2015 OFFICE/OUTPATIENT VISIT EST Diagnosis: SINUSITIS, ACUTE[ICD9: 461.9] Kaitlynn MENDENHALLQUELINE Monica [facility] CPT-4: 20018 12/06/2014 ([id number]) OFFICE/OUTPATIENT VISIT EST Diagnosis: SINUSITIS, ACUTE[ICD9: 461.9] Kaitlynn VO Monica [facility] CPT-4: 68960 08/09/2014 ([id number]) OFFICE/OUTPATIENT VISIT EST Diagnosis: TONSILLITIS, ACUTE[ICD9: 463] Suki GEE DO [facility] CPT-4: 41990 06/24/2014 OFFICE/OUTPATIENT VISIT EST Diagnosis: SINUSITIS, ACUTE[ICD9: 461.9] Diagnosis: EUSTACHIAN TUBE DYSFUNCTION[ICD9: 381.81] Diagnosis: COUGH[ICD9: 786.2] Suki [facility]EE [facility] CPT-4: 59995 03/22/2014 OFFICE/OUTPATIENT VISIT EST Diagnosis: Elbow pain, right[ICD9: 719.42] Suki GEE DO [facility] CPT-4: 19641 03/05/2014 OFFICE/OUTPATIENT VISIT EST Diagnosis: SINUSITIS, ACUTE[ICD9: 461.9] Jessica [facility]EE [facility] CPT-4: 14847 01/16/2014 ([id number]) OFFICE/OUTPATIENT VISIT EST Diagnosis: GROSS HEMATURIA[ICD9: 599.71] Jessica GEE DO [facility] CPT-4: 48005 10/19/2013 ([id number]) OFFICE/OUTPATIENT VISIT EST Diagnosis: DM W/O COMPLICATION TYPE II[ICD9: 250.00] Diagnosis: HYPERLIPIDEMIA NEC/NOS[ICD9: 272.4] Jessica GEE DO [facility] CPT-4: 29742 05/10/2013 ([id number]) OFFICE/OUTPATIENT VISIT EST Diagnosis: SINUSITIS, ACUTE[ICD9: 461.9] Jessica GEE [facility] CPT-4: 24799 04/17/2013 OFFICE/OUTPATIENT VISIT EST Diagnosis: OTITIS MEDIA NOS[ICD9: 382.9] Diagnosis: COUGH[ICD9: 786.2] Suki GEE DO [facility] CPT-4: 00026 03/05/2013 OFFICE/OUTPATIENT VISIT EST Diagnosis: COUGH[ICD9: 786.2] Diagnosis: BRONCHITIS, ACUTE[ICD9: 466.0] Suki [facility]EE DO [facility] CPT-4: 98575 03/02/2013 OFFICE/OUTPATIENT VISIT EST Diagnosis: COUGH[ICD9: 786.2] Diagnosis: OTITIS MEDIA NOS[ICD9: 382.9] Diagnosis: BRONCHITIS, ACUTE[ICD9: 466.0] Suki [facility] CPT-4: 36744 03/01/2013 OFFICE/OUTPATIENT VISIT EST Diagnosis: DM W/O COMPLICATION TYPE II, UNCONTROLLED[ICD9: 250.02] Jessica [facility] CPT-4: 40765 02/22/2013 ([id number]) PREV VISIT EST AGE 40-64 Diagnosis: DM W/O COMPLICATION TYPE II, UNCONTROLLED[ICD9: 250.02] Diagnosis: HYPERTENSION[ICD9: 401.9] Diagnosis: ROUTINE MEDICAL EXAM[ICD9: V70.0] Jessica [facility] CPT-4: 19262 01/11/2013 OFFICE/OUTPATIENT VISIT EST Diagnosis: HZ (HERPES ZOSTER)[ICD9: 053.9] Kaitlynn Mosley JESSICA [facility] CPT-4: 51195 11/03/2012 OFFICE/OUTPATIENT VISIT EST Diagnosis: URINARY TRACT INFECTION[ICD9: 599.0] Diagnosis: GERD[ICD9: 530.81] Diagnosis: PHARYNGITIS, ACUTE[ICD9: 462] [facility] CPT-[facility]: 63235 05/04/2012 OFFICE/OUTPATIENT VISIT EST Diagnosis: COUGH[ICD9: 786.2] Diagnosis: SINUSITIS, ACUTE[ICD9: 461.9] Diagnosis: PHARYNGITIS, ACUTE[ICD9: 462] Jessica [facility] CPT-4: 50492 10/11/2011 OFFICE/OUTPATIENT VISIT EST Diagnosis: COUGH[ICD9: 786.2] Diagnosis: SINUSITIS, ACUTE[ICD9: 461.9] Diagnosis: PHARYNGITIS, ACUTE[ICD9: 462] Diagnosis: ALLERGIC RHINITIS[ICD9: 477.9] Xiomara Rodriguez JESSICA Dominga [facility] CPT-4: 96294 06/23/2011 OFFICE/OUTPATIENT VISIT EST Diagnosis: COUGH[ICD9: 786.2] Diagnosis: SINUSITIS, ACUTE[ICD9: 461.9] Diagnosis: PHARYNGITIS, ACUTE[ICD9: 462] Jessica GEE DO [facility] CPT-4: 36690 06/14/2011 OFFICE/OUTPATIENT VISIT EST Diagnosis: SINUSITIS, ACUTE[ICD9: 461.9] Diagnosis: PHARYNGITIS, ACUTE[ICD9: 462] Jessica SUTTONNDER [facility] CPT-4: 36397 12/02/2010 OFFICE/OUTPATIENT VISIT EST Diagnosis: HYPERTENSION[ICD9: 401.9] Diagnosis: HYPERLIPIDEMIA NEC/NOS[ICD9: 272.4] Diagnosis: DERMATITIS NOS[ICD9: 692.9] Jessica VO S. O RENDER DO [facility] CPT-4: 95959 11/12/2010 OFFICE/OUTPATIENT VISIT EST Jessica Orr. [facility] CPT- 4: 01506 10/13/2010 ([id number]) OFFICE/OUTPATIENT VISIT EST Jessica BELTRAN SLloyd SUTTONNDER DO [facility] CPT-4: 95493 06/24/2010 ([id number]) OFFICE/OUTPATIENT VISIT EST Jessica BELTRAN S. HERMANNDER DO [facility] CPT-4: 29534 06/08/2010 ([id number]) OFFICE/OUTPATIENT VISIT EST Xiomara Rodriguez JESSICA S Lloyd SUTTONNDER DO [facility] CPT-4: 54716 05/20/2010 ([id number]) OFFICE/OUTPATIENT VISIT EST Jessica BELTRAN SLloyd SUTTONNDER DO [facility] CPT-4: 80780 04/30/2010 ([id number]) OFFICE/OUTPATIENT VISIT, EST Jessica MOFFETTCAMILLE SLloyd SUTTONNDMALVIN DO [facility] CPT-4: 24600 01/22/2010 Plan of Care Planned Activity Notes [...] : N39.0 09/27/2018 Appointment: Jessica Gee WPtel: [facility] [place] [id number] ACUTE ILLNESS 09/27/2018 Visit Diagnosis [...] I10 04/24/2018 Appointment: Jessica Gee WPtel: [phone] [id number] ACUTE ILLNESS 04/24/2018 Patient Education: celecoxib- [employer] [id number] Completed 04/24/2018 Patient Education: amitriptyline- [employer] [id number] Completed 04/24/2018 Visit Diagnosis Plan: Pain in [...] E11.9 12/27/2017 Appointment: Jessica [facility]ee [phone] [facility] [facility] 12/27/2017 Patient Education: Patient Medication Summary Completed 12/27/2017 Patient Education: Patient Medication Summary Completed 12/19/2017 Care Plan: MAMMOGRAM BOTH BREASTS LOINC : [id number] Pending 12/19/2017 Patient Education: Patient Medication Summary Completed 12/16/2017 Care Plan: ASSAY THYROID STIM HORMONE Pen ding 12/16/2017 Care Plan: ASSAY OF FREE THYROXINE Pendin g 12/16/2017 Care Plan: LIPID PANEL LOINC : 97272-0 Pending 12/16/2017 Care Plan: CBC Pending 12/16/2017 Care Plan: A1C HPLC LOINC : 51245-7 Pending 12/16/2017 Patient Education: Patient Medication Summary Completed 10/17/2017 Care Plan: CT ANGIOGRAPHY CHEST LOINC : 18989-3 Pending 10/17/2017 Patient Education: Patient Medication Summary Completed 10/14/2017 Care Plan: CT ANGIOGRAPHY CHEST LOINC : 06252-8 Pending 10/14/2017 Appointment: Jessica eGe WPtel: [phone] [id number] [facility] 10/13/2017 Patient Education: Patient Medication Summary [...] : R07.81 10/12/2017 Appointment: Sof[facility] Gresham [id number] [facility] 10/12/2017 Patient Education: Patient Medication [...] : J20.9 09/16/2017 Appointment: Sofi Gresham [id number] [facility] 09/16/2017 Patient Education: Patient Medication Summary Completed 09/16/2017 Appointment: Jessica Gee WPtel: [address] [place], [place] [phone] [place] CANCELED 08/10/2017 Visit Diagnosis Plan: Cellulitis [...] : R00.0 05/25/2017 Appointment: Jessica Gee WPtel: [address] [place], [place] [phone] [place] FOLLOW UP 05/25/2017 Patient Education: Patient Medication Summary Completed 05/25/2017 Visit Diagnosis Plan: Lumbago with sciatica, right britton e Discussion: Check arthritis panel Patient awaiting neck surgery before surgery will consider back surgery ICD-9 : 724.2 ICD-10 : M54.41 01/03/2017 Appointment: Jessica Gee WPtel: [address] [place], [place] [phone] ACUTE ILLNESS 01/03/2017 Patient Education: Patient Medication Summary Completed 01/03/2017 Patient Education: Patient Medication Summary Completed 12/16/2016 Care Plan: MAMMOGRAM SCREENING LOINC : 2 6347-5 Pending 12/16/2016 Patient Education: Patient Medication Summary Completed 10/07/2016 Care Plan: MRI LUMBAR SPINE W/O & W/DYE LOINC : 34095-7 Pending 10/07/2016 Visit Diagnosis Plan: Essential (primary) [...] : W57.XXXD 09/23/2016 Appointment: Jessica Gee WPtel: [address] [place] [address] 09/22 confirmed WORK IN 09/23/2016 Patient Education: Patient Medication Summary Completed 09/23/2016 Visit Plan: Tick panel at [facility] Increa se spironolactone to 2 po am (New Rx sent) Take B/P at home/work and also come to office next week for recheck Will await lab results before starting any antibiotic 09/03/2016 Appointment: Kaitlynn Mosley WPtel: [address] [place], [place] [phone] ACUTE ILLNESS 09/03/2016 Patient Education: Patient Medication Summary Completed 09/03/2016 Visit Diagnosis Plan: Low back pain Discussion: Celebr ex BID PT Continue stretches at home L/S xray Follow Up: 1 months ICD-9 : 724.2 ICD-10 : M54.5 07/08/2016 Appointment: Jessica Gee WPtel: [address] [place] [address] [place] ACUTE ILLNESS 07/08/2016 Patient Education: Patient Medication Summary Completed 07/08/2016 Care Plan: X-RAY EXAM L-S SPINE 2/3 VWS LOINC : 51743-3 Pending 07/08/2016 Visit Plan: Supportive care. Rest, Fluid s, Tylenol/Motrin prn fever or bodyaches. Notify if worsening symptoms.New toothebrush in 5 days 06/21/2016 Visit NOS Plan: Plan Notes: Supportive care. Rest, Fluids... 06/21/2016 Visit Diagnosis Plan: Acute pharyngitis, unspecified D iscussion: Strep Negative Supportive Care May use zyrtec 10mg q HS ICD-9 : 462 ICD-10 : J02.9 06/21/2016 Appointment: Jessica Gee WPtel: [address] [place] [address] ACUTE ILLNESS 06/21/2016 Patient Education: Patient Medication Summary Completed 06/21/2016 Visit Plan: No pulseox last week to comp are to today, but she does sound diminished today Studies as above ordered Continue cefdinir until results received Increase albuterol treatments to q4-6hrs PRN Continue supportive care 02/23/2016 Appointment: Janiya Gregorio [address] ACUTE ILLNESS 02/23/2016 Patient Education: Patient Medication Summary Completed 02/23/2016 Care Plan: CHEST X-RAY 2VW FRONTAL&LATL LOINC : 01819-7 Pending 02/23/2016 Visit Plan: Saline nasal flushes prn. Ty lenol/Motrin prn headache. Notify if persists/symptoms worsening. 02/16/2016 Appointment: Jessica Gee WPtel: [address] [place] [address] ACUTE ILLNESS 02/16/2016 Patient Education: Patient Medication Summary Completed 02/16/2016 Visit Plan: Discussed labs Continue Topr ol at 200 mg PO daily Increase Aciphex to BID Notify if increase of Aciphex does not give relief. Repeat PT/INR in 2 weeks. 02/11/2015 Appointment: Suki Barahona WPtel: [address] [place], [place] [phone] 02/10 confirmed ~sl FOLLOW UP 02/11/2015 Patient Education: Patient Medication Summary Completed 02/11/2015 Patient Education: Patient Medication Summary Completed 02/06/2015 Care Plan: POC PROTIME/INR LOINC : 56708 -6 Pending 02/06/2015 Visit Plan: Increase Toprol XL 200 mg to one full tablet daily (is currently taking only 1/2 tablet) To for EKG today Monitor daily BP Notify of any changes- increased numbness, weakness, headache etc. 01/28/2015 Appointment: Suki Barahona WPtel: [address] [place] [address] ACUTE ILLNESS 01/28/2015 Patient Education: Patient Medication Summary Completed 01/28/2015 Visit Plan: ERx Amoxicillin and Flonase Nasal saline, humidified air Facial heat or cold packs for comfort Increase fluids/rest Discussed s/s of worsening, go to over weekend if these occur. 12/06/2014 Appointment: Kaitlynn Mosley WPtel: [address] [place] [address] ACUTE ILLNESS 12/06/2014 Patient Education: Patient Medication Summary Completed 12/06/2014 Appointment: Kaitlynn Mosley WPtel: [address] [place] [address] ACUTE ILLNESS 08/09/2014 Patient Education: Patient Medication Summary Completed 08/09/2014 Appointment: Suki Barahona WPtel: [address] [place], [place] [phone] ACUTE ILLNESS 06/24/2014 Patient Education: Patient Medication Summary Completed 06/24/2014 Appointment: Suki Barahona WPtel: [address] [place] [address] ACUTE ILLNESS 03/22/2014 Patient Education: Patient Medication Summary Completed 03/22/2014 Patient Education: [employer] - Antibi otics, Analgesics 18+, Oral Contraceptives F 18+ Completed 03/22/2014 Appointment: Suki Barahona WPtel: [address] [place] [address] FOLLOW UP 03/05/2014 Patient Education: Patient Medication Summary Completed 03/05/2014 Visit Plan: Saline nasal flushes prn. Ty lenol/Motrin prn headache. Notify if persists/symptoms worsening. Restart flonase 01/16/2014 Appointment: Jessica Gee WPtel: [address] [place] [address] ACUTE ILLNESS 01/16/2014 Patient Education: Patient Medication Summary Completed 01/16/2014 Appointment: Jessica Gee WPtel: [address] [place] [address] 10/19/2013 Patient Education: Patient Medication Summary Completed 10/19/2013 Appointment: Jessica Gee WPtel: [address] [place] [address] 08/08 patient canceled appt and said will call back to [facility] evelin FOLLOW UP 08/09/2013 Visit Plan: Increase Coumadin to 6mg M-F and stay on 5mg Sat, Sun Add lipids to labs Check PT/INR in 3wks Continue metfromin at current dose and accuchecks 05/10/2013 Appointment: Jessica Gee WPtel: [address] [place] [address] 05/09 FOLLOW UP 05/10/2013 Patient Education: Patient Medication Summary Completed 05/10/2013 Visit Plan: Saline nasal flushes prn. Ty lenol/Motrin prn headache. Notify if persists/symptoms worsening. 04/17/2013 Appointment: Jessica Gee WPtel: [address] [place] [address] ACUTE ILLNESS 04/17/2013 Patient Education: Patient Medication Summary Completed 04/17/2013 Appointment: Suki Barahona WPtel: [address] [place] [address] FOLLOW UP 03/05/2013 Patient Education: Patient Medication Summary Completed 03/05/2013 Appointment: Suki Barahona Edison WPtel: [address] [place] [address] FOLLOW UP 03/02/2013 Patient Education: Patient Medication Summary Completed 03/02/2013 Appointment: Suki Barahona WPtel: [address] [place] [address] ACUTE ILLNESS 03/01/2013 Patient Education: Patient Medication Summary Completed 03/01/2013 Visit Plan: Continue metformin and accuc hecks Add fish oil 1gram daily Check HbA1C, CMP in 2mos then fwup 02/22/2013 Appointment: Jessica Gee WPtel: [address] [place] [address] 02/21 [facility] FOLLOW UP 02/22/2013 Patient Education: Patient Medication Summary Completed 02/22/2013 Visit Plan: Start Metformin Start Accuch ecks daily alternating times Will go for dilated eye exam once BS more stabilized Diabetic foot care discussed Diabetic diet info given 01/11/2013 Appointment: Jessica Gee WPtel: [address] [place] [address] FOLLOW UP 01/11/2013 Patient Education: Patient Medication Summary Completed 01/11/2013 Appointment: Kaitlynn Mosley WPtel: [address] [place] [address] ACUTE ILLNESS 11/03/2012 Patient Education: Patient Medication Summary Completed 11/03/2012 Appointment: Xiomara Rodriguez WPtel: [address] [place] [address] ACUTE ILLNESS 05/04/2012 Patient Education: Patient Medication Summary Completed 05/04/2012 Visit Plan: pt reports that she always g ets yeast infections. Discussed that the antifungal can cause problems/increased bleeding with Coumdin. Pt. will start with probiotics and only take the Diflucan if needed. Cefdinir. 10/11/2011 Appointment: Xiomara Rodriguez WPtel: [address] [place] [address] ACUTE ILLNESS 10/11/2011 Patient Education: Patient Medication Summary Completed 10/11/2011 Appointment: Xiomara Rodriguez WPtel: [address] [place] [address] FOLLOW UP 06/23/2011 Patient Education: Patient Medication Summary Completed 06/23/2011 Visit Plan: Will prescribe an antibiotic and diflucan. Pt. reports that she frequently gets yeast infection. Discussed that she will notify if any symptoms persist. Pt. reports that her relatives have recently been hospitalized with pneumonia. 06/14/2011 Appointment: Xiomara Rodriguez WPtel: [address] [place] [address] ACUTE ILLNESS 06/14/2011 Patient Education: Patient Medication Summary Completed 06/14/2011 Visit Plan: sample of veramyst. Cefuroxi me axetil. Pt. will focus on hydration and rest. Discussed comfort measures and monitoring for worsening symptoms. 12/02/2010 Appointment: Xiomara Rodriguez WPtel: [address] [place] [address] ACUTE ILLNESS 12/02/2010 Patient Education: Patient Medication Summary Completed 12/02/2010 Visit Plan: Change HCTZ to spironolacton e will start zocor in 1 mo BP med in 1mo 11/12/2010 Appointment: Jessica Gee WPtel: [address] [place], [place] [address] FOLLOW UP 11/12/2010 Patient Education: Patient Medication Summary Completed 11/12/2010 Appointment: Jessica Gee WPtel: [address] [place], [place] [address] BP CHECK 10/26/2010 Patient Education: Patient Medication Summary Completed 10/26/2010 Visit Plan: Continue Toprol at bedtime A dd HCTZ in AM BP check in 2wks Fasting lab with next PT/INR 10/13/2010 Appointment: Jessica Gee WPtel: [address] [place], [place] [address] FOLLOW UP 10/13/2010 Patient Education: Patient Medication Summary Completed 10/13/2010 Visit Plan: Cont abx. Fwup with surgery as scheduled 06/24/2010 Appointment: Jessica Gee WPtel: [address] [place] [address] Follow Up 06/24/2010 Patient Education: Patient Medication Summary Completed 06/24/2010 Appointment: Jessica Gee WPtel: [address] [place] [address] Follow Up 06/22/2010 Visit Plan: pt is [...] to subside. 06/08/2010 Appointment: Xiomara Rodriguez WPtel: [address] [place] [address] ACUTE ILLNESS 06/08/2010 Patient Education: Patient Medication Summary Completed 06/08/2010 Appointment: Xiomara Rodriguez WPtel: [address] [place] [address] FOLLOW UP 06/01/2010 Appointment: Jessica Gee WPtel: [address] [place] [address] 05/29/2010 Patient Education: Patient Medication Summary Completed 05/29/2010 Appointment: Xiomara Rodriguez WPtel: [address] [place] [address] ACUTE ILLNESS 05/20/2010 Patient Education: Patient Medication Summary Completed 05/20/2010 Appointment: Jessica Gee WPtel: [address] [place] [address] BP CHECK 05/13/2010 Patient Education: Patient Medication Summary Completed 05/13/2010 Visit Plan: Increase Lisinopril hct to 2 0/12.5mg q AM Use atarax prn and routinely at bedtime and Medrol dose pack BP check in 3wks Pt defers stress test at this time 04/30/2010 Appointment: Jessica Gee WPtel: [address] [place] [address] ACUTE ILLNESS 04/30/2010 Patient Education: Patient Medication Summary Completed 04/30/2010 Appointment: Jessica Gee WPtel: [address] [place] [address] BP CHECK 02/27/2010 Patient Education: Patient Medication Summary Completed 02/27/2010 Visit Plan: Cont Toprol Add Altace 10mg QD Cont Wellbutrin Will likely add SSRI after BP stable BP check in 2wks 01/22/2010 Appointment: Jessica Gee WPtel: [address] [place] [address] ACUTE ILLNESS 01/22/2010 Patient Education: Patient Medication Summary Completed 01/22/2010 Referral: Rupa Raines WPtel: [address] [id number] [place] Referral Completed Referral: Neymar Alberts WPtel: [address] [address] [place] Referral Initiated Instructions Comment . Tick [...]
--- OUTSIDE RECORDS SUMMARY | 2019-09-10 03:11 | XMS REPORT | CCD ---
Author Author Nava Gee D.O. Organization JESSICA GEE DO [facility] Address [address] [place] [address] Phone Care Team Providers Care Nude Model Name Role Phone Jessica Gee D.O., PP Unavailable CCM Unavailable Summary Purpose Interface Exchange Insurance Providers Payer name Policy type / Coverage type Covered libertarian ID Effective Begin Date Effective End Date Blue Cross Blue Shield Blue Cross/Blue Shield [id number] Unknown Family History Family History data not found Social History Social History Element Codes Description Effective Dates Tobacco history SNOMED CT: 847071915 Never smoker 10/13/2010 Allergies, Adverse Reactions, Alerts [...] ICD-9: V70.0 ICD-10: Z00.00 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 TAKE AN ADDITIONAL TABLET ON TUESDAY AND Tuesday02/28/2019 No Stop Date Active Coumadin 5 mg tablet RxNorm: 470973 TAKE 1 TABLET BY MOUTH ONCE DAILY 02/28/2019 04/01/2019 Inactive omeprazole 40 mg capsule,delayed release RxNorm: 678147 TAKE 1 CAPSULE BY MOUTH TWICE DAILY 02/19/2019 No Stop Date Active metformin ER 500 mg tablet,extended release 24 hr RxNorm: 86 0975 1 Tablet(s) PO BID 02/19/2019 03/18/2019 Inactive metformin ER 500 mg tablet,extended release 24 hr RxNorm: 86 0975 1 Tablet(s) PO BID 01/15/2019 02/13/2019 Inactive alprazolam 0.25 mg tablet RxNorm: 553315 1 Tablet(s) Oral prior to flight 01/03/2019 No Stop Date Active omeprazole 40 mg capsule,delayed release RxNorm: 731439 TAKE 1 CAPSULE BY MOUTH TWICE DAILY 12/20/2018 02/18/2019 Inactive metformin ER 500 mg tablet,extended release 24 hr RxNorm: 86 0975 1 Tablet(s) PO BID 12/11/2018 01/09/2019 Inactive pravastatin 40 mg tablet RxNorm: 494086 TAKE 1 TABLET BY MOUTH ONCE DAILY 12/11/2018 03/18/2019 Inactive Coumadin 5 mg tablet RxNorm: 626636 1 Tablet(s) PO QD 11/27/201809/2018 Inactive metformin ER 500 mg tablet,extended release 24 hr RxNorm: 86 0975 1 Tablet(s) PO BID 10/02/2018 11/30/2018 Inactive warfarin 1 mg tablet RxNorm: 496201 TAKE 1 TABLET BY [facility] ONCE DAILY. TAKE AN ADDITIONAL TABLET ON TUESDAY AND Tuesday10/02/2018 02/27/2019 Inactiv e warfarin 5 mg tablet RxNorm: 632007 1 Tablet(s) PO QD 09/27/201810/2018 Inactive Bactrim DS 800 mg-160 mg tablet RxNorm: 321503 1 Tablet(s) PO BID 0 09/27/2018 10/03/2018 Inactive Toprol XL 200 mg tablet,extended release RxNorm: 369610 1 Table t(s) PO QD 09/18/2018 03/16/2019 Inactive omeprazole 40 mg capsule,delayed release RxNorm: 649980 TAKE 1 CAPSULE BY MOUTH TWICE DAILY 09/11/2018 12/19/2018 Inactive Coumadin 5 mg tablet RxNorm: 482540 1 Tablet(s) PO QD 08/21/201811/2018 Inactive metformin ER 500 mg tablet,extended release 24 hr RxNorm: 86 0975 1 Tablet(s) PO BID 07/31/2018 09/28/2018 Inactive omeprazole 40 mg capsule,delayed release RxNorm: 930697 TAKE 1 CAPSULE BY MOUTH TWICE DAILY 06/27/2018 09/10/2018 Inactive metformin ER 500 mg tablet,extended release 24 hr RxNorm: 86 0975 Tablet(s) 1 Tablet(s) PO BID 06/27/2018 07/31/2018 Inactive Toprol XL 200 mg tablet,extended release RxNorm: 312667 1 Table t(s) PO QD 06/14/2018 09/17/2018 Inactive Coumadin 5 mg tablet RxNorm: 773609 1 Tablet(s) PO QD 06/14/201804/2018 Inactive metformin ER 500 mg tablet,extended release 24 hr RxNorm: 86 0975 Tablet(s) 1 Tablet(s) PO BID 05/22/2018 06/26/2018 Inactive Coumadin 5 mg tablet RxNorm: 872791 TAKE 1 TABLET BY MOUTH ONCE DAILY 05/11/2018 06/14/2018 Inactive Lovenox 40 mg/0.4 mL subcutaneous syringe RxNorm: 222071 40 Mil ligram(s) SQ QD 05/05/2018 09/26/2018 Inactive amitriptyline 25 mg tablet RxNorm: 190904 1 Tablet(s) PO QHS fo r sleep/HAs 04/24/2018 10/20/2018 Inactive [employer] Ultra Test strips RxNorm: Test blood sugar sigrid y (Dx:E11.65) 04/24/2018 No Stop Date Active celecoxib 200 mg capsule RxNorm: 443463 1 Capsule(s) PO BID 019 10/20/2018 Inactive Celebrex 200 mg capsule RxNorm: 236822 TAKE 1 CAPSULE BY MOUTH ONCE DAILY 04/19/2018 04/23/2018 Inactive warfarin 1 mg tablet RxNorm: 862870 1 Tablet(s) PO QD a nd additional tablet on Mon & Thurs 04/14/2018 10/01/2018 Inactive Toprol XL 200 mg tablet,extended release RxNorm: 373098 TAKE 1 TABLET BY MOUTH ONCE DAILY 04/11/2018 06/14/2018 Inactive metformin ER 500 mg tablet,extended release 24 hr RxNorm: 86 0975 Tablet(s) 1 Tablet(s) PO BID 03/17/2018 05/21/2018 Inactive Coumadin 5 mg tablet RxNorm: 367131 TAKE 1 TABLET BY MOUTH ONCE DAILY 03/15/2018 05/10/2018 Inactive Lovenox 40 mg/0.4 mL subcutaneous syringe RxNorm: 738454 40 Mil ligram(s) SQ QD 01/27/2018 04/11/2018 Inactive omeprazole 40 mg capsule,delayed release RxNorm: 935028 TAKE 1 CAPSULE BY MOUTH TWICE DAILY 01/23/2018 06/26/2018 Inactive pravastatin 40 mg tablet RxNorm: 320321 TAKE 1 TABLET BY MOUTH ONCE DAILY 01/23/2018 12/10/2018 Inactive metformin ER 500 mg tablet,extended release 24 hr RxNorm: 86 0975 Tablet(s) 1 Tablet(s) PO BID 01/16/2018 01/15/2018 Inactive Toprol XL 200 mg tablet,extended release RxNorm: 256671 TAKE 1 TABLET BY MOUTH ONCE DAILY 01/16/2018 04/10/2018 Inactive Coumadin 5 mg tablet RxNorm: 722729 TAKE 1 TABLET BY MOUTH ONCE DAILY 01/06/2018 03/14/2018 Inactive Celebrex 200 mg capsule RxNorm: 353588 1 Capsule(s) PO BID 12/28/19 18 03/26/2018 Inactive metformin ER 500 mg tablet,extended release 24 hr RxNorm: 86 0975 1 Tablet(s) PO BID Needs APPT 12/21/2017 01/16/2018 Inactive omeprazole 40 mg capsule,delayed release RxNorm: 247861 TAKE 1 CAPSULE BY MOUTH TWICE DAILY 11/02/2017 01/22/2018 Inactive Celebrex 200 mg capsule RxNorm: 838369 1 Capsule(s) PO QD 11/01/2017 12/26/2017 Inactive Coumadin 5 mg tablet RxNorm: 755150 Tablet(s) TAKE ONE TABLET BY MOUTH ONCE DAILY. 10/31/2017 12/29/2017 Inactive warfarin 1 mg tablet RxNorm: 730658 1 Tablet(s) PO QD 10/31/201703/22 Inactive spironolactone 25 mg tablet RxNorm: 652099 TAKE TWO TAB LETS BY MOUTH IN THE MORNING 10/31/2017 04/23/2018 Inactive metformin ER 500 mg tablet,extended release 24 hr RxNorm: 86 0975 1 Tablet(s) PO BID Needs updated fasting lab 10/20/2017 12/21/2017 Inactive Medrol (Dale) 4 mg tablets in a dose pack RxNorm: 231900 Tablet(s) PO take as directed 10/12/2017 12/15/2017 Inactive Celebrex 200 mg capsule RxNorm: 822577 1 Capsule(s) PO QD 10/03/2017 10/02/2017 Inactive spironolactone 25 mg tablet RxNorm: 496071 TAKE TWO TAB LETS BY MOUTH IN THE MORNING 09/19/2017 10/30/2017 Inactive Zithromax Z-Dale 250 mg tablet RxNorm: 320616 Tablet(s) PO take as directed 09/16/2017 10/11/2017 Inactive Medrol (Dale) 4 mg tablets in a dose pack RxNorm: 838096 Tablet(s) take as directed PO 09/16/2017 10/11/2017 Inactive doxycycline hyclate 100 mg tablet RxNorm: 9869851 1 Tablet(s) PO BI D 09/16/2017 09/15/2017 Inactive doxycycline hyclate 100 mg tablet RxNorm: 2689424 1 Tablet(s) PO BI D 09/16/2017 09/25/2017 Inactive Tessalon Perles 100 mg capsule RxNorm: 067725 1 Capsule(s) PO T ID as needed 09/16/2017 12/15/2017 Inactive warfarin 1 mg tablet RxNorm: 691670 1 Tablet(s) PO QD 09/06/201710/19 Inactive Coumadin 5 mg tablet RxNorm: 636116 Tablet(s) TAKE ONE TABLET BY MOUTH ONCE DAILY. 09/06/2017 10/31/2017 Inactive Toprol XL 200 mg tablet,extended release RxNorm: 512432 1 Table t(s) PO QD 2017 01/02/2018 Inactive warfarin 1 mg tablet RxNorm: 789800 1 Tablet(s) PO QD DUE FOR L ABS AUGUST 12 08/29/2017 09/06/2017 Inactive Coumadin 5 mg tablet RxNorm: 232331 Tablet(s) TAKE ONE TABLET BY MOUTH ONCE DAILY. DUE FOR PT/INR AUGUST 12 08/29/2017 09/06/2017 Inactive Coumadin 5 mg tablet RxNorm: 682204 Tablet(s) TAKE ONE TABLET BY MOUTH ONCE DAILY. DUE FOR PT/INR AUGUST 12 08/01/2017 08/29/2017 Inactive warfarin 1 mg tablet RxNorm: 330586 1 Tablet(s) PO QD DUE FOR L ABS AUGUST 12 08/01/2017 08/29/2017 Inactive scopolamine 1 mg over 3 days transdermal patch RxNorm: 31019 2 1 TD take off in 72 hours. 08/01/2017 12/26/2017 Inactive pravastatin 40 mg tablet RxNorm: 065757 Tablet(s) TAKE ONE TABLET BY MOUTH ONCE DAILY 07/07/2017 01/02/2018 Inactive Coumadin 5 mg tablet RxNorm: 891569 Tablet(s) TAKE ONE TABLET BY MOUTH ONCE DAILY. DUE FOR PT/INR. 06/29/2017 08/01/2017 Inactive warfarin 1 mg tablet RxNorm: 463507 1 Tablet(s) PO QD 06/29/201707/19 Inactive Coumadin 5 mg tablet RxNorm: 401147 TAKE ONE TABLET BY MOUTH ONCE DAILY. DUE FOR PT/INR. 05/30/2017 06/29/2017 Inactive omeprazole 40 mg capsule,delayed release RxNorm: 134249 1 Capsu le(s) PO BID 05/30/2017 08/27/2017 Inactive Celebrex 200 mg capsule RxNorm: 711753 1 Capsule(s) PO QD 05/23/2017 10/03/2017 Inactive metformin ER 500 mg tablet,extended release 24 hr RxNorm: 86 0975 TAKE ONE TABLET BY MOUTH TWICE DAILY 05/20/2017 10/20/2017 Inactive Coumadin 5 mg tablet RxNorm: 469876 1 Tablet(s) PO QD due for PT/IN R 04/25/2017 05/24/2017 Inactive warfarin 1 mg tablet RxNorm: 040403 1 Tablet(s) PO QD due for l abs this week 03/16/2017 06/29/2017 Inactive omeprazole 40 mg capsule,delayed release RxNorm: 358935 1 Capsu le(s) PO BID 03/16/2017 05/30/2017 Inactive Celebrex 200 mg capsule RxNorm: 665365 1 Capsule(s) PO BID as n eeded for pain 03/16/2017 05/22/2017 Inactive Coumadin 5 mg tablet RxNorm: 476175 1 Tablet(s) PO QD due for PT/IN R 03/16/2017 04/14/2017 Inactive Celebrex 200 mg capsule RxNorm: 994988 1 Capsule(s) PO BID as n eeded for pain 02/09/2017 03/15/2017 Inactive Toprol XL 200 mg tablet,extended release RxNorm: 945625 1 Table t(s) PO QD 02/08/2017 2017 Inactive Celebrex 200 mg capsule RxNorm: 777825 1 Capsule(s) PO BID as n eeded for pain 01/14/2017 02/08/2017 Inactive omeprazole 40 mg capsule,delayed release RxNorm: 838834 1 Capsu le(s) PO BID 01/12/2017 03/16/2017 Inactive Coumadin 5 mg tablet RxNorm: 960733 1 Tablet(s) PO QD 12/15/201602/19 Inactive warfarin 1 mg tablet RxNorm: 105571 1 Tablet(s) PO QD 12/15/201602/19 Inactive metformin ER 500 mg tablet,extended release 24 hr RxNorm: 86 0975 Tablet(s) TAKE ONE TABLET BY MOUTH TWICE DAILY 11/29/2016 02/26/2017 Inactive omeprazole 40 mg capsule,delayed release RxNorm: 510823 1 Capsu le(s) PO BID 11/29/2016 12/28/2016 Inactive pravastatin 40 mg tablet RxNorm: 467276 Tablet(s) TAKE ONE TABLET BY MOUTH ONCE DAILY 11/19/2016 07/07/2017 Inactive omeprazole 40 mg capsule,delayed release RxNorm: 343568 1 Capsu le(s) PO BID 10/19/2016 10/18/2016 Inactive omeprazole 40 mg capsule,delayed release RxNorm: 525360 1 Capsu le(s) PO BID 10/19/2016 11/17/2016 Inactive pantoprazole 40 mg tablet,delayed release RxNorm: 693259 1 Tabl et(s) PO QD 09/30/2016 10/18/2016 Inactive pantoprazole 40 mg tablet,delayed release RxNorm: 467713 1 Tabl et(s) PO QD 09/30/2016 09/29/2016 Inactive Zofran ODT 4 mg disintegrating tablet RxNorm: 365258 1 Tablet(s) PO Q4H as needed for nausea 09/15/2016 01/02/2017 Inactive Coumadin 5 mg tablet RxNorm: 006583 1 Tablet(s) PO QD 09/14/201611/20 Inactive warfarin 1 mg tablet RxNorm: 944405 1 Tablet(s) PO QD 09/14/201611/20 Inactive spironolactone 25 mg tablet RxNorm: 731995 2 Tablet(s) PO QAM 09/0301/02/2017 Inactive Wellbutrin XL 300 mg 24 hr tablet, extended release RxNorm: 086897 TAKE ONE TABLET BY MOUTH ONCE DAILY 08/26/2016 12/26/2017 Inactive Toprol XL 200 mg tablet,extended release RxNorm: 845539 1 Table t(s) PO QD 07/28/2016 02/08/2017 Inactive metformin ER 500 mg tablet,extended release 24 hr RxNorm: 86 0975 Tablet(s) TAKE ONE TABLET BY MOUTH TWICE DAILY 07/15/2016 11/29/2016 Inactive cyclobenzaprine 5 mg tablet RxNorm: 985418 1 Tablet(s) PO QHS f or spasm 07/08/2016 08/06/2016 Inactive Celebrex 200 mg capsule RxNorm: 1 Capsule(s) PO BID 07/08/2016 Inactive spironolactone 25 mg tablet RxNorm: 351536 1 Tablet(s) PO QAM 07/0609/02/2016 Inactive Wellbutrin XL 300 mg 24 hr tablet, extended release RxNorm: 087943 TAKE ONE TABLET BY MOUTH ONCE DAILY 06/15/2016 07/14/2016 Inactive Coumadin 5 mg tablet RxNorm: 675951 1 Tablet(s) PO QD 06/08/201608/20 Inactive warfarin 1 mg tablet RxNorm: 101436 1 Tablet(s) PO QD 06/08/201608/20 Inactive Toprol XL 200 mg tablet,extended release RxNorm: 327523 TAKE ONE TABLET BY MOUTH ONCE DAILY 04/26/2016 07/28/2016 Inactive pravastatin 40 mg tablet RxNorm: 261883 TAKE ONE TABLET BY MOUT H ONCE DAILY 04/19/2016 10/15/2016 Inactive Coumadin 5 mg tablet RxNorm: 263134 1 Tablet(s) PO QD 03/09/201605/19 Inactive warfarin 1 mg tablet RxNorm: 064632 1 Tablet(s) PO QD 03/09/201605/19 Inactive metformin ER 500 mg tablet,extended release 24 hr RxNorm: 86 0975 TAKE ONE TABLET BY MOUTH TWICE DAILY 02/25/2016 07/15/2016 Inactive spironolactone 25 mg tablet RxNorm: 051543 TAKE ONE TAB LET BY MOUTH ONCE DAILY IN THE MORNING 02/25/2016 07/06/2016 Inactive prednisone 20 mg tablet RxNorm: 615742 1 Tablet(s) PO QAM 02/16/2016 02/20/2016 Inactive cefdinir 300 mg capsule RxNorm: 210389 2 Capsule(s) PO QD 02/16/2016 02/25/2016 Inactive Toprol XL 200 mg tablet,extended release RxNorm: 186385 TAKE ONE TABLET BY MOUTH ONCE DAILY 01/26/2016 04/24/2016 Inactive Aciphex 20 mg tablet,delayed release RxNorm: 258730 1 Tablet(s) PO BID 12/24/2015 09/29/2016 Inactive Omeprazole and Pepci d have not helped. Coumadin 5 mg tablet RxNorm: 417932 1 Tablet(s) PO QD 12/10/201502/19 Inactive Coumadin 5 mg tablet RxNorm: 632161 1 Tablet(s) PO QD 12/08/201511/20 Inactive Toprol XL 200 mg tablet,extended release RxNorm: 744490 TAKE ONE TABLET BY MOUTH ONCE DAILY 11/20/2015 01/18/2016 Inactive warfarin 1 mg tablet RxNorm: 371933 1 Tablet(s) PO QD 11/03/201502/19 Inactive pravastatin 40 mg tablet RxNorm: 426114 Tablet(s) TAKE ONE TABLET BY MOUTH ONCE DAILY 10/20/2015 01/17/2016 Inactive pravastatin 40 mg tablet RxNorm: 404539 TAKE ONE TABLET BY MOUT H ONCE DAILY 10/20/2015 10/19/2015 Inactive metformin ER 500 mg tablet,extended release 24 hr RxNorm: 86 0975 TAKE ONE TABLET BY MOUTH TWICE DAILY 10/03/2015 12/31/2015 Inactive Toprol XL 200 mg tablet,extended release RxNorm: 877275 TAKE ONE TABLET BY MOUTH ONCE DAILY 09/17/2015 11/15/2015 Inactive Coumadin 5 mg tablet RxNorm: 381503 1 Tablet(s) PO QD 09/02/201511/19 Inactive Wellbutrin XL 300 mg 24 hr tablet, extended release RxNorm: 902178 TAKE ONE TABLET BY MOUTH ONCE DAILY 08/01/2015 10/29/2015 Inactive Pepcid 20 mg tablet RxNorm: 783499 1 Tablet(s) PO BID as needed 05/24/2017 Inactive warfarin 1 mg tablet RxNorm: 286961 TAKE ONE TABLET BY MOUTH ON CE DAILY 07/08/2015 11/03/2015 Inactive pravastatin 40 mg tablet RxNorm: 605161 1 Tablet(s) PO QD 07/08/2015 10/05/2015 Inactive spironolactone 25 mg tablet RxNorm: 281189 TAKE ONE TAB LET BY MOUTH ONCE DAILY IN THE MORNING 06/13/2015 09/10/2015 Inactive Coumadin 5 mg tablet RxNorm: 619802 1 Tablet(s) PO QD 06/05/201508/19 Inactive Wellbutrin XL 300 mg 24 hr tablet, extended release RxNorm: 308825 TAKE ONE TABLET BY MOUTH ONCE DAILY 05/16/2015 09/26/2018 Inactive Wellbutrin XL 300 mg 24 hr tablet, extended release RxNorm: 503125 TAKE ONE TABLET BY MOUTH ONCE DAILY 05/16/2015 06/14/2015 Inactive metformin ER 500 mg tablet,extended release 24 hr RxNorm: 86 0975 TAKE ONE TABLET BY MOUTH TWICE DAILY 05/16/2015 08/13/2015 Inactive pravastatin 40 mg tablet RxNorm: 054207 1 Tablet(s) PO QD 04/10/2015 07/07/2015 Inactive Aciphex 20 mg tablet,delayed release RxNorm: 832083 1 Tablet(s) PO BID 03/07/2015 09/02/2015 Inactive Omeprazole and Pepci d have not helped. Toprol XL 200 mg tablet,extended release RxNorm: 667240 1 Table t(s) PO QD 03/05/2015 08/31/2015 Inactive Aciphex 20 mg tablet,delayed release RxNorm: 012503 1 Tablet(s) PO QD 03/04/2015 03/06/2015 Inactive Omeprazole and Pepci d have not helped. Coumadin 5 mg tablet RxNorm: 171139 1 Tablet(s) PO QD 02/28/201511/2015 Inactive Aciphex 20 mg tablet,delayed release RxNorm: 723746 1 Tablet(s) PO BID 02/11/2015 03/03/2015 Inactive Omeprazole and Pepci d have not helped. metformin ER 500 mg tablet,extended release 24 hr RxNorm: 86 0975 1 Tablet(s) PO BID 01/10/2015 04/09/2015 Inactive pravastatin 40 mg tablet RxNorm: 654612 1 Tablet(s) PO QD 01/06/2015 04/05/2015 Inactive Wellbutrin XL 300 mg 24 hr tablet, extended release RxNorm: 809092 TAKE ONE TABLET BY MOUTH ONCE DAILY 12/19/2014 02/16/2015 Inactive amoxicillin 500 mg capsule RxNorm: 437121 2 Capsule(s) PO BID 12/0612/15/2014 Inactive Flonase 50 mcg/actuation nasal spray,suspension RxNorm: 8963 23 2 [place] each nostril NASAL QD 12/06/2014 03/05/2015 Inactive Coumadin 5 mg tablet RxNorm: 178329 1 Tablet(s) PO QD 11/28/201410/2014 Inactive spironolactone 25 mg tablet RxNorm: 059807 1 Tablet(s) PO QAM 11/2602/23/2015 Inactive Coumadin 5 mg tablet RxNorm: 479500 1 Tablet(s) PO QD 1 Tablet(s) PO QD- NEED TO CHECK LABS 10/30/2014 11/28/2014 Inactive warfarin 1 mg tablet RxNorm: 456065 1 Tablet(s) PO QD 10/30/201409/2015 Inactive Aciphex 20 mg tablet,delayed release RxNorm: 321767 1 Tablet(s) PO QD 10/02/2014 02/10/2015 Inactive Omeprazole and Pepci d have not helped. Coumadin 5 mg tablet RxNorm: 403411 1 Tablet(s) PO QD 1 Tablet(s) PO QD- NEED TO CHECK LABS 09/30/2014 10/30/2014 Inactive pravastatin 40 mg tablet RxNorm: 766447 1 Tablet(s) PO QD 09/25/2014 01/06/2015 Inactive warfarin 1 mg tablet RxNorm: 408057 1 Tablet(s) PO QD T [place] ONE TABLET BY MOUTH DIRECTED ON MON AND THUR 08/28/2014 10/29/2014 Inactive metformin ER 500 mg tablet,extended release 24 hr RxNorm: 86 0975 1 Tablet(s) PO BID 08/28/2014 01/10/2015 Inactive amoxicillin 875 mg tablet RxNorm: 885568 1 Tablet(s) PO BID 015 08/18/2014 Inactive Toprol XL 200 mg tablet,extended release RxNorm: 262101 TAKE ONE TABLET BY MOUTH ONCE DAILY 07/22/2014 03/05/2015 Inactive Coumadin 5 mg tablet RxNorm: 154917 1 Tablet(s) PO QD 07/01/201409/18 Inactive amoxicillin 875 mg tablet RxNorm: 691697 1 Tablet(s) PO BID 015 06/30/2014 Inactive pravastatin 40 mg tablet RxNorm: 096140 1 Tablet(s) PO QD needs fasting labs 06/19/2014 09/25/2014 Inactive Coumadin 5 mg tablet RxNorm: 747184 1 Tablet(s) PO QD 1 Tablet(s) PO QD TAKE ONE TABLET BY MOUTH ONCE DAILY-need labs 05/28/2014 07/01/2014 Inactive warfarin 1 mg tablet RxNorm: 121800 1 Tablet(s) PO As Directed 05/1908/28/2014 Inactive pravastatin 40 mg tablet RxNorm: 521154 1 Tablet(s) PO QD needs fasting labs 05/14/2014 06/19/2014 Inactive metformin ER 500 mg tablet,extended release 24 hr RxNorm: 86 0975 1 Tablet(s) PO BID 04/25/2014 08/28/2014 Inactive spironolactone 25 mg tablet RxNorm: 919179 1 Tablet(s) PO QAM 04/2511/26/2014 Inactive Coumadin 5 mg tablet RxNorm: 434742 1 Tablet(s) PO QD 1 Tablet(s) PO QD TAKE ONE TABLET BY MOUTH ONCE DAILY 04/23/2014 05/28/2014 Inactive Coumadin 5 mg tablet RxNorm: 977974 1 Tablet(s) PO QD 1 Tablet(s) PO QD TAKE ONE TABLET BY MOUTH ONCE DAILY 03/22/2014 04/20/2014 Inactive Tessalon Perles 100 mg capsule RxNorm: 098319 1 Capsule(s) PO TID 0 03/22/2014 03/28/2014 Inactive cefdinir 300 mg capsule RxNorm: 614525 2 Capsule(s) PO QD 03/22/2014 03/31/2014 Inactive Medrol (Dale) 4 mg tablets in a dose pack RxNorm: 446580 Tablet(s) PO as directed 03/05/2014 08/08/2014 Inactive Coumadin 5 mg tablet RxNorm: 565675 1 Tablet(s) PO QD 1 Tablet(s) PO QD TAKE ONE TABLET BY MOUTH ONCE DAILY 02/19/2014 03/20/2014 Inactive pravastatin 40 mg tablet RxNorm: 449438 1 Tablet(s) PO QD 02/04/2014 05/14/2014 Inactive Coumadin 5 mg tablet RxNorm: 868108 1 Tablet(s) PO QD T [place] ONE TABLET BY MOUTH ONCE DAILY 01/21/2014 02/19/2014 Inactive Medrol (Dale) 4 mg tablets in a dose pack RxNorm: 617694 Tablet(s) PO as directed 01/18/2014 03/04/2014 Inactive cefdinir 300 mg capsule RxNorm: 139839 2 Capsule(s) PO QD 01/16/2014 01/25/2014 Inactive metformin ER 500 mg tablet,extended release 24 hr RxNorm: 86 0975 1 Tablet(s) PO BID 12/17/2013 04/25/2014 Inactive Wellbutrin SR 150 mg tablet,sustained-release RxNorm: 457707 1 Tablet(s) PO BID 11/30/2013 02/27/2014 Inactive spironolactone 25 mg tablet RxNorm: 495492 1 Tablet(s) PO QAM 10/2204/25/2014 Inactive Macrobid 100 mg capsule RxNorm: 673060 1 Capsule(s) PO BID 10/20/19 14 10/25/2013 Inactive Macrobid 100 mg capsule RxNorm: 245656 1 Capsule(s) PO BID 10/20/19 14 10/18/2013 Inactive Toprol XL 100 mg tablet,extended release RxNorm: 527728 1 Table t(s) PO QD 10/15/2013 01/15/2014 Inactive Toprol XL 200 mg tablet,extended release RxNorm: 881129 1 Table t(s) PO QD 10/02/2013 07/22/2014 Inactive Wellbutrin XL 300 mg 24 hr tablet, extended release RxNorm: 645592 1 Tablet(s) PO QD 09/28/2013 12/19/2014 Inactive Aciphex 20 mg tablet,delayed release RxNorm: 544280 1 Tablet(s) PO QD 08/29/2013 10/02/2014 Inactive Omeprazole and Pepci d have not helped. Coumadin 5 mg tablet RxNorm: 255842 1 Tablet(s) PO QD 08/14/201307/20 Inactive Coumadin 5 mg tablet RxNorm: 932437 1 Tablet(s) PO QD 08/14/201305/2013 Inactive pravastatin 40 mg tablet RxNorm: 962294 1 Tablet(s) PO QD 07/24/2013 02/04/2014 Inactive warfarin 1 mg tablet RxNorm: 630251 1 Tablet(s) PO QD T [place] ONE TABLET BY MOUTH DIRECTED ON TUE AND 07/09/2013 05/28/2014 Inactive warfarin 5 mg tablet RxNorm: 873757 1 Tablet(s) PO QD T [place] ONE TABLET BY MOUTH EVERY DAY 06/08/2013 07/07/2013 Inactive spironolactone 25 mg tablet RxNorm: 230266 1 Tablet(s) PO QAM 05/3010/15/2013 Inactive clindamycin 300 mg capsule RxNorm: 432931 2 Capsule(s) PO TID 04/1704/30/2013 Inactive warfarin 5 mg tablet RxNorm: 787983 1 Tablet(s) PO QD 03/12/201305/20 Inactive azithromycin 250 mg tablet RxNorm: 470703 2 Tablet(s) PO QD 013 03/07/2013 Inactive metformin ER 500 mg tablet,extended release 24 hr RxNorm: 86 0975 1 Tablet(s) PO BID 02/22/2013 12/17/2013 Inactive spironolactone 25 mg tablet RxNorm: 103072 1 Tablet(s) PO QAM 01/2205/30/2013 Inactive metformin ER 500 mg tablet,extended release 24 hr RxNorm: 86 0977 1 Tablet(s) PO BID 01/11/2013 02/21/2013 Inactive pravastatin 40 mg tablet RxNorm: 364088 1 Tablet(s) PO QD 01/11/2013 07/24/2013 Inactive warfarin 5 mg tablet RxNorm: 916011 1 Tablet(s) PO QD 01/04/201302/19 Inactive warfarin 1 mg tablet RxNorm: 522961 Tablet(s) PO TAKE O NE TABLET BY MOUTH DIRECTED ON TUE AND 12/14/2012 07/08/2013 Inactive scopolamine 1.5 mg 72 hr Transderm Patch RxNorm: 133092 TD Apply 1 patch behind ear every 72 hours, replace after 3 days. 11/08/2012 01/15/2014 Inacti ve Pepcid 20 mg tablet RxNorm: 731137 1 Tablet(s) PO BID as needed 01/31/2013 Inactive Famvir 500 mg tablet RxNorm: 892291 1 Tablet(s) PO Q8H 11/03/2012 Inactive Aciphex 20 mg tablet,delayed release RxNorm: 258671 1 Tablet(s) PO QD 11/03/2012 05/01/2013 Inactive Omeprazole and Pepci d have not helped. gabapentin 300 mg capsule RxNorm: 135330 Capsule(s) PO TID 11/04/19 13 01/15/2014 Inactive warfarin 5 mg tablet RxNorm: 296583 1 Tablet(s) PO QD 11/02/201212/19 Inactive Wellbutrin XL 300 mg 24 hr tablet, extended release RxNorm: 726006 1 Tablet(s) PO QD 10/17/2012 04/30/2013 Inactive pravastatin 40 mg tablet RxNorm: 688822 Tablet(s) PO TA KE ONE TABLET BY MOUTH EVERY DAY. NEED FASTING LABS 09/18/2012 01/10/2013 Inactive Toprol XL 200 mg tablet,extended release RxNorm: 046947 Tablet(s) PO TAKE ONE TABLET BY MOUTH EVERY DAY 09/08/2012 10/01/2013 Inactive warfarin 5 mg tablet RxNorm: 937794 1 Tablet(s) PO QD 08/31/201210/19 Inactive pravastatin 40 mg tablet RxNorm: 214619 1 Tablet(s) PO QD Needs fasting labs 08/18/2012 09/16/2012 Inactive TAKE ONE TABLET BY M OUTH EVERY DAY warfarin 1 mg tablet RxNorm: 053639 1 Tablet(s) PO As directed on Mon and Th08/11/2012 12/13/2012 Inactive spironolactone 25 mg tablet RxNorm: 461409 1 Tablet(s) PO QAM 07/1110/08/2012 Inactive warfarin 5 mg tablet RxNorm: 484264 1 Tablet(s) PO QD 07/03/201208/19 Inactive Diflucan 100 mg tablet RxNorm: 474544 1 Tablet(s) PO QD 05/04/2012 Inactive Cipro 500 mg tablet RxNorm: 810619 1 Tablet(s) PO BID 05/04/201204/22 Inactive Aciphex 20 mg tablet,delayed release RxNorm: 193521 1 Tablet(s) PO QD 05/04/2012 07/02/2012 Inactive Omeprazole and Pepci d have not helped. warfarin 5 mg tablet RxNorm: 874532 1 Tablet(s) PO QD 05/02/201206/19 Inactive warfarin 5 mg tablet RxNorm: 547860 1 Tablet(s) PO QD 03/02/201204/21 Inactive Toprol XL 200 mg tablet,extended release RxNorm: 605105 1 Table t(s) PO QD 03/02/2012 05/30/2012 Inactive spironolactone 25 mg tablet RxNorm: 731396 1 Tablet(s) PO QAM 02/0707/11/2012 Inactive pravastatin 40 mg tablet RxNorm: 019191 Tablet(s) PO 01/31/201208/17 Inactive TAKE ONE TABLET BY MOUTH EVERY DAY pravastatin 40 mg tablet RxNorm: 078059 1 Tablet(s) PO QD 01/31/2012 08/18/2012 Inactive omeprazole 40 mg capsule,delayed release RxNorm: 305989 1 Capsule(s) PO QD for stomach 01/11/2012 11/02/2012 Inactive for stomach warfarin 5 mg tablet RxNorm: 489154 1 Tablet(s) PO QD 01/03/201202/18 Inactive warfarin 5 mg tablet RxNorm: 943052 1 Tablet(s) PO QD 12/03/201112/19 Inactive pravastatin 40 mg tablet RxNorm: 760822 1 Tablet(s) PO QD 11/25/2011 01/23/2012 Inactive cefdinir 300 mg Cap RxNorm: 039090 1 Capsule(s) PO BID 10/11/201103/2011 Inactive Culturelle 10 billion cell Cap RxNorm: 346719 1 Capsule(s) PO BID 0 10/11/2011 11/09/2011 Inactive Diflucan 100 mg Tab RxNorm: 212277 1 Tablet(s) PO QD 10/11/201110/19 Inactive Wellbutrin XL 300 mg 24 hr tablet, extended release RxNorm: 162643 1 Tablet(s) PO QD 09/14/2011 10/17/2012 Inactive pravastatin 40 mg tablet RxNorm: 255529 1 Tablet(s) PO QD 08/25/2011 11/25/2011 Inactive Coumadin 5 mg tablet RxNorm: 577339 Tablet(s) PO Take as direct ed by doctor. 07/07/2011 12/03/2011 Inactive Singulair 10 mg Tab RxNorm: 370576 1 Tablet(s) PO QD al lergy medication. (Please try to be consistent in dosing) 06/23/2011 01/15/2014 Inactive Diflucan 100 mg Tab RxNorm: 624862 1 Tablet(s) PO QD 06/14/201107/02 Inactive cefdinir 300 mg Cap RxNorm: 196741 1 Capsule(s) PO BID 06/14/201106/2011 Inactive pravastatin 40 mg Tab RxNorm: 608523 1 Tablet(s) PO QD 05/25/201108/2011 Inactive warfarin 5 mg Tab RxNorm: 584828 Tablet(s) PO 05/25/2011 10/18/2011 In active TAKE ONE TABLET BY MOUTH EVERY DAY Toprol XL 200 mg tablet,extended release RxNorm: 923039 1 Table t(s) PO QD 03/05/2011 06/02/2011 Inactive spironolactone 25 mg tablet RxNorm: 134115 1 Tablet(s) PO QAM 02/2402/08/2012 Inactive omeprazole 40 mg capsule,delayed release RxNorm: 995729 1 Capsule(s) PO QD for stomach 01/06/2011 01/11/2012 Inactive for stomach warfarin 5 mg Tab RxNorm: 316593 1 Tablet(s) PO QD 12/17/2010 011 Inactive warfarin 5 mg Tab RxNorm: 223404 1 Tablet(s) PO QD 11/18/2010 011 Inactive spironolactone 25 mg Tab RxNorm: 468884 1 Tablet(s) PO QAM 11/13/19 11 02/24/2011 Inactive Coumadin 6 mg Tab RxNorm: 869277 1 Tablet(s) PO QD 10/28/2010 011 Inactive May have generic hydrochlorothiazide 25 mg Tab RxNorm: 087721 1 Tablet(s) PO QAM 11/11/2010 Inactive Wellbutrin XL 300 mg 24 hr Tab RxNorm: 257440 1 Tablet(s) PO QD 09/14/2011 Inactive Septra DS 800 mg-160 mg Tab RxNorm: 107339 1 Tablet(s) PO BID 06/0806/17/2010 Inactive Pyridium 100 mg Tab RxNorm: 4397847 1 Tablet(s) PO TID 06/08/2010 Inactive Wellbutrin XL 300 mg 24 hr Tab RxNorm: 053920 1 Tablet(s) PO QD 05/201007/15/2010 Inactive hydroxyzine 25 mg Tab RxNorm: 822385 1 Tablet(s) PO QID prn itching--take routinely at bedtime. (pt. may not refil at this time but later) 05/20/2010 10/10/2011 Inactive Zyrtec 10 mg Tab RxNorm: 4693493 1 Tablet(s) PO BID 05/20/20102010 Inactive Coumadin 1 mg Tab RxNorm: 783473 1 Tablet(s) PO 6mg M-F, 7mg S-S 11/16/2010 Inactive hydroxyzine 25 mg Tab RxNorm: 427192 1 Tablet(s) PO QID prn itching--take routinely at bedtime 04/30/2010 05/19/2010 Inactive Toprol XL 200 mg 24 hr Tab RxNorm: 585140 1 Tablet(s) PO QD 011 06/23/2010 Inactive lisinopril-hydrochlorothiazide 10 mg-12.5 mg Tab RxNorm: 197 885 1 Tablet(s) PO QD 04/20/2010 04/29/2010 Inactive omeprazole 40 mg Cap, Delayed Release RxNorm: 636677 1 Capsule(s) PO QD for stomach 04/20/2010 08/17/2010 Inactive lisinopril-hydrochlorothiazide 10 mg-12.5 mg Tab RxNorm: 197 885 Tablet(s) PO 1QDAM - TAKE ONE TABLET BY MOUTH EVERY DAY IN THE MORNING 03/09/2010 Inactive lisinopril-hydrochlorothiazide 10 mg-12.5 mg Tab RxNorm: 197 885 1 Tablet(s) PO QD 02/27/2010 04/20/2010 Inactive Wellbutrin XL 300 mg 24 hr Tab RxNorm: 688095 1 Tablet(s) PO QD 05/21/2010 Inactive lisinopril-hydrochlorothiazide 10 mg-12.5 mg Tab RxNorm: 197 885 1 Tablet(s) PO QD 01/28/2010 02/26/2010 Inactive omeprazole 40 mg Cap, Delayed Release RxNorm: 856342 1 Capsule(s) PO QD for stomach 01/22/2010 04/20/2010 Inactive Altace 10 mg Cap RxNorm: 951970 1 Capsule(s) PO QD for BP 01/22/2010 03/22/2010 Inactive Coumadin 6 mg Tab RxNorm: 261600 1 Tablet(s) PO QD May have generic 12/03/2009 05/01/2010 Inactive Coumadin 6 mg Tab RxNorm: 382410 1 Tablet(s) PO 12/01/2009 12/02/2009 Inactive Coumadin 1 mg Tab RxNorm: 231389 1 Tablet(s) PO QD 11/28/2009 010 Inactive Coumadin 1 mg Tab RxNorm: 708685 1 Tablet(s) PO QD 07/02/2009 010 Inactive lisinopril-hydrochlorothiazide 20 mg-12.5 mg Tab RxNorm: 197 886 2 Tablet(s) PO QAM No Start Date 10/12/2010 Inactive Zofran ODT 4 mg disintegrating tablet RxNorm: 897609 1 Tablet(s) PO Q6H as needed for nausea No Start Date 09/14/2016 Inactive Wellbutrin XL 300 mg 24 hr Tab RxNorm: 756069 1 Tablet(s) PO QD No Start Date 02/02/2010 Inactive alprazolam 0.25 mg tablet RxNorm: 021796 1 Tablet(s) PO prior t o flight No Start Date 05/24/2017 Inactive hydrocodone-acetaminophen 5 mg-500 mg Tab RxNorm: 013293 1-2 Tablet(s) PO Q4H as needed for pain No Start Date 12/02/2010 Inactive Toprol XL 100 mg 24 hr Tab RxNorm: 191704 1 Tablet(s) PO QD No Star t Date 10/14/2013 Inactive Celebrex 200 mg capsule RxNorm: 835952 1 Capsule(s) PO QD No Start Date 05/22/2017 Inactive Flexeril 10 mg tablet RxNorm: 389251 1 Tablet(s) PO TID No Start Da te 04/02/2019 Inactive scopolamine 1 mg over 3 days transdermal patch RxNorm: 72057 2 1 TD take off in 72 hours. No Start Date 07/31/2017 Inactive OneTouch Ultra Test strips RxNorm: Test blood sugar daily No S tart Date 04/23/2018 Inactive Medrol (Dale) 4 mg tablets in a dose pack RxNorm: 575425 Tablet(s) PO As directed No Start Date 01/15/2014 Inactive Coumadin 5 mg Tab RxNorm: 521797 1 Tablet(s) PO QD No Start Date 06/19 Inactive Pepcid 40 mg Tab RxNorm: 655494 1 Tablet(s) PO QD No Start Date 06/23 Inactive prednisone 10 mg Tab RxNorm: 324999 1 Tablet(s) PO BID No Start Date 06/23/2010 Inactive spironolactone 25 mg tablet RxNorm: 874432 1 Tablet(s) PO QAM No St art Date 09/26/2018 Inactive scopolamine 1.5 mg 72 hr Transderm Patch RxNorm: 104564 TD Apply 1 patch behind ear every 72 hours, replace after 3 days. No Start Date 11/07/2012 Inacti ve azithromycin 250 mg Tab RxNorm: 983594 Tablet(s) PO 2 t abs on day one and one tab on days 2-5. (antibiotic) No Start Date 10/10/2011 Inactive Medrol (Dale) 4 mg Tabs in a Dose Pack RxNorm: 104495 1 Tablet(s) PO as directed. (steroid pack) No Start Date 10/10/2011 Inactive Lovenox 40 mg/0.4 mL subcutaneous syringe RxNorm: 145048 40 Mil ligram(s) SQ QD No Start Date 05/04/2018 Inactive Celebrex 200 mg capsule RxNorm: 022890 1 Capsule(s) PO BID as n eeded for pain No Start Date 01/13/2017 Inactive warfarin 1 mg tablet RxNorm: 137046 1 Tablet(s) PO As directed on Tue and No Start Date 08/10/2012 Inactive cefuroxime axetil 500 mg Tab RxNorm: 943972 1 Tablet(s) PO BID No S tart Date 06/13/2011 Inactive Lovenox 40 mg/0.4 mL subcutaneous syringe RxNorm: 160706 40 Mil ligram(s) SQ QD No Start Date 01/26/2018 Inactive Coumadin 5 mg tablet RxNorm: 821895 1 Tablet(s) PO QD No Start Date 0 08/13/2013 Inactive Medrol (Dale) 4 mg tablets in a dose pack RxNorm: 159028 Tablet(s) PO as directed No Start Date 01/17/2014 Inactive Coumadin 6 mg tablet RxNorm: 871015 1 Tablet(s) PO QD No Start Date 0 06/20/2016 Inactive warfarin 5 mg tablet RxNorm: 580774 1 Tablet(s) PO QD No Start Date 0 12/02/2011 Inactive Medrol (Dale) 4 mg Tabs in a Dose Pack RxNorm: 413621 Tablet(s) PO as directed No Start Date 06/23/2010 Inactive Flonase 50 mcg/actuation nasal spray,suspension RxNorm: 8963 23 2 [place] NASAL BID No Start Date 12/05/2014 Inactive Pepcid 20 mg tablet RxNorm: 015381 1 Tablet(s) PO BID as needed No Start Date 11/02/2012 Inactive spironolactone 25 mg tablet RxNorm: 485390 1 Tablet(s) PO QAM No St art Date 04/02/2019 Inactive Medication Administered No Medication Administered data Immunizations No Immunization data Results Observation Observation Code Item Item Code Result Date S ervice Location MICROALBUMIN URINE RANDOM 15276 CREAT MG/D 139 MG/DL Unknown MICROALBUMIN URINE RANDOM 16753 CRE/100 1.39 G/L 12/20 Unknown Procedures Procedure Codes Date URINALYSIS NONAUTO W/O SCOPE CPT-4: 95456 09/27/2018 URINE CULTURE/ COLONY COUNT CPT-4: 39472 09/27/2018 URINALYSIS NONAUTO W/O SCOPE CPT-4: 06230 10/13/2017 URINE CULTURE/ COLONY COUNT CPT-4: 66904 10/13/2017 STREP A ASSAY W/OPTIC CPT-4: 14886 06/21/2016 STREP A ASSAY W/OPTIC CPT-4: 32340 06/24/2014 THER/PROPH/DIAG INJ SC/IM CPT-4: 60605 03/22/2014 METHYLPREDNISOLONE 40 MG INJ CPT-4: J1030 03/22/2014 TRIAMCINOLONE ACET INJ NOS CPT-4: J3301 03/22/2014 URINALYSIS NONAUTO W/O SCOPE CPT-4: 43640 10/19/2013 URINE CULTURE/ COLONY COUNT CPT-4: 80013 10/19/2013 CEFTRIAXONE SODIUM INJECTION CPT-4: J0696 03/02/2013 THER/PROPH/DIAG INJ SC/IM CPT-4: 34072 03/02/2013 CEFTRIAXONE SODIUM INJECTION CPT-4: J0696 03/01/2013 THER/PROPH/DIAG INJ SC/IM CPT-4: 90830 03/01/2013 THER/PROPH/DIAG INJ SC/IM CPT-4: 79600 03/01/2013 METHYLPREDNISOLONE 40 MG INJ CPT-4: J1030 03/01/2013 TRIAMCINOLONE ACET INJ NOS CPT-4: J3301 03/01/2013 MICROALBUMIN QUANTITATIVE CPT-4: 15424 01/11/2013 URINE CULTURE/ COLONY COUNT CPT-4: 19567 05/04/2012 URINALYSIS NONAUTO W/O SCOPE CPT-4: 45673 05/04/2012 URINE CULTURE/ COLONY COUNT CPT-4: 56258 05/29/2010 TRIAMCINOLONE ACET INJ NOS CPT-4: J3301 05/20/2010 METHYLPREDNISOLONE 40 MG INJ CPT-4: J1030 05/20/2010 THER/PROPH/DIAG INJ SC/IM CPT-4: 61455 05/20/2010 Vital Signs Date Vital 04/03/2019 Blood [...] 1: 134/78 Code: 8480-6 BMI: 35.1 Code: 69661-0 Heart Rate 1: 76 bpm Height: 5'9" Respiratory Rate: 20 bpm Temperature: 36 .6 (C) / 97.8 (F) Weight: 238 lbs 12/27/2017 Blood Pressure 1: 126/64 Code: 8480-6 BMI: 34.7 Code: 79847-2 Heart Rate 1: 72 bpm Height: 5'9" Respiratory Rate: 20 bpm Temperature: 36 .8 (C) / 98.2 (F) Weight: 235 lbs 10/12/2017 Blood Pressure 1: 142/80 Code: 8480-6 BMI: 35.1 Code: 21758-1 Heart Rate 1: 98 bpm Height: 5'9" Respiratory Rate: 22 bpm SpO2: 100% Tempera ture: 36.5 (C) / 97.7 (F) Weight: 238 lbs 09/16/2017 Blood Pressure 1: 136/82 Code: 8480-6 BMI: 34.1 Code: 75014-9 Heart Rate 1: 82 bpm Height: 5'9" Respiratory Rate: 18 bpm SpO2: 96% Tempera ture: 36.3 (C) / 97.3 (F) Weight: 231 lbs 05/25/2017 Blood Pressure 1: 122/82 Code: 8480-6 BMI: 32.3 Code: 95520-0 Heart Rate 1: 116 bpm Height: 5'9" Respiratory Rate: 20 bpm SpO2: 98% Tempera ture: 35.6 (C) / 96.1 (F) Weight: 219 lbs 01/03/2017 Blood Pressure 1: 126/78 Code: 8480-6 BMI: 33.4 Code: 53632-0 Heart Rate 1: 72 bpm Height: 5'9" Respiratory Rate: 20 bpm Temperature: 36 .8 (C) / 98.2 (F) Weight: 226 lbs 09/23/2016 Blood Pressure 1: 126/82 Code: 8480-6 BMI: 33.8 Code: 82439-3 Heart Rate 1: 80 bpm Height: 5'9" Respiratory Rate: 20 bpm SpO2: 97% Tempera ture: 36.8 (C) / 98.2 (F) Weight: 229 lbs 09/03/2016 Blood Pressure 1: 188/64 Code: 8480-6 Bl ood Pressure 2: 166/92 Code: 8480-6 BMI: 34.4 Code: 99584-1 Heart Rate 1: 66 bpm Height: 5'9" Res piratory Rate: 20 bpm SpO2: 98% Temperature: 35.7 (C) / 96.2 (F) Weight: 233 lbs 07/08/2016 Blood Pressure 1: 134/82 Code: 8480-6 Heart Rate 1: 64 bpm Height: 5'9" Respiratory Rate: 20 bpm SpO2: 97% Temperature: 36.6 (C) / 97.8 (F) Weight: 06/21/2016 Blood Pressure 1: 112/68 Code: 8480-6 BMI: 33.8 Code: 70311-0 Heart Rate 1: 64 bpm Height: 5'9" Respiratory Rate: 20 bpm SpO2: 95% Tempera ture: 36.3 (C) / 97.3 (F) Weight: 229 lbs 02/23/2016 Blood Pressure 1: 128/78 Code: 8480-6 BMI: 33.4 Code: 27577-1 Heart Rate 1: 74 bpm Height: 5'9" [...] 1: 122/80 Code: 8480-6 BMI: 32.2 Code: 45721-2 Heart Rate 1: 80 bpm Height: 5'9" Respiratory Rate: 20 bpm Temperature: 37 .0 (C) / 98.6 (F) Weight: 218 lbs 08/09/2014 Blood Pressure 1: 132/84 Code: 8480-6 BMI: 33.1 Code: 07554-2 Heart Rate 1: 72 bpm Height: 5'9" Respiratory Rate: 20 bpm Temperature: 36 .7 (C) / 98.0 (F) Weight: 224 lbs 06/24/2014 Blood Pressure 1: 132/80 Code: 8480-6 BMI: 32.8 Code: 82669-6 Heart Rate 1: 68 bpm Height: 5'9" Respiratory Rate: 20 bpm Temperature: 36 .4 (C) / 97.6 (F) Weight: 222 lbs 03/22/2014 Blood Pressure 1: 128/84 Code: 8480-6 BMI: 32.5 Code: 49505-9 Heart Rate 1: 78 bpm Height: 5'9" Respiratory Rate: 22 bpm Temperature: 36 .0 (C) / 96.8 (F) Weight: 220 lbs 03/05/2014 Blood Pressure 1: 124/78 Code: 8480-6 BMI: 31.9 Code: 15015-1 Heart Rate 1: 82 bpm Height: 5'9" Respiratory Rate: 20 bpm Temperature: 35 .8 (C) / 96.4 (F) Weight: 216 lbs 01/16/2014 Blood Pressure 1: 116/68 Code: 8480-6 BMI: 33.8 Code: 08497-2 Heart Rate 1: 72 bpm Height: 5'7" Respiratory Rate: 20 bpm Temperature: 36 .6 (C) / 97.9 (F) Weight: 216 lbs 05/10/2013 Blood Pressure 1: 124/86 Code: 8480-6 BMI: 34.3 Code: 28233-6 Heart Rate 1: 84 bpm Height: 5'7" [...] 1: 116/84 Code: 8480-6 BMI: 33.1 Code: 00305-6 Heart Rate 1: 64 bpm Height: 5'9" Respiratory Rate: 20 bpm Temperature: 36 .4 (C) / 97.6 (F) Weight: 224 lbs 01/11/2013 Blood Pressure 1: 126/84 Code: 8480-6 BMI: 35.3 Code: 09934-0 Heart Rate 1: 68 bpm Height: 5'9" Respiratory Rate: 20 bpm Temperature: 36 .7 (C) / 98.1 (F) Weight: 239 lbs 11/03/2012 Blood Pressure 1: 104/70 Code: 8480-6 BMI: 34.4 Code: 48050-7 Heart Rate 1: 72 bpm Height: 5'9" Respiratory Rate: 20 bpm Temperature: 36 .8 (C) / 98.3 (F) Weight: 233 lbs 05/04/2012 Blood Pressure 1: 124/74 Code: 8480-6 BMI: 33.7 Code: 42318-8 Heart Rate 1: 84 bpm Height: 5'9" Temperature: 36.3 (C) / 97.3 (F) Weight: 228 lbs 10/11/2011 Blood Pressure 1: 110/70 Code: 8480-6 BMI: 33.7 Code: 52683-7 Heart Rate 1: 64 bpm Height: 5'9" Temperature: 36.8 (C) / 98.3 (F) Weight: 228 lbs 06/23/2011 Blood Pressure 1: 114/70 Code: 8480-6 BMI: 33.4 Code: 08517-7 Heart Rate 1: 80 bpm Height: 5'9" Respiratory Rate: 20 bpm Temperature: 36 .7 (C) / 98.0 (F) Weight: 226 lbs 06/14/2011 Blood Pressure 1: 118/74 Code: 8480-6 BMI: 33.4 Code: 00379-5 Heart Rate 1: 80 bpm Height: 5'9" [...] 1: 126/82 Code: 8480-6 BMI: 32.6 Code: 28808-5 Heart Rate 1: 68 bpm Height: 5'9" [...] 1: 140/92 Code: 8480-6 BMI: 31.3 Code: 06054-3 Heart Rate 1: 60 bpm Height: 5'10" [...] upper back on 08/13/16 while camping around [place], [place]. Patient states is tender around tick [...] 01/22/2010 Encounters Encounter Performer Location Codes Date ([id number]) OFFICE/OUTPATIENT VISIT EST Diagnosis: Type 2 diabetes mellitus without complications[ICD10: E11.9] Diagnosis: Essential hypertension[ICD10: I10] Jessica OBRIEN [employer] CPT-4: 83577 04/03/2019 ([id number]) OFFICE/OUTPATIENT VISIT EST Diagnosis: Gastro-esophageal reflux disease without esophagitis[ICD10: K21.9] Diagnosis: Urinary tract infection, site not specified[ICD10: N39.0] Diagnosis: Ventral hernia without obstruction or gangrene[ICD10: K43.9] Jessica VO [employer] CPT-4: 12410 09/27/2018 ([id number]) OFFICE/OUTPATIENT VISIT EST Diagnosis: Essential (primary) hypertension[ICD10: I10] Diagnosis: Type 2 diabetes mellitus without complications[ICD10: E11.9] Diagnosis: Carpal tunnel syndrome, right upper limb[ICD10: G56.01] Diagnosis: Primary insomnia[ICD10: F51.01] Jessica VO [employer] CPT-4: 83113 04/24/2018 ([id number]) OFFICE/OUTPATIENT VISIT EST Diagnosis: Type 2 diabetes mellitus without complications[ICD10: E11.9] Diagnosis: Mixed hyperlipidemia[ICD10: E78.2] Diagnosis: Essential (primary) hypertension[ICD10: I10] Diagnosis: Pain in unspecified joint[ICD10: M25.50] Jessica VO [employer] CPT-4: 63121 12/27/2017 ([id number]) NURSE/OUTPATIENT VISIT EST Diagnosis: Hematuria, unspecified[ICD10: R31.9] Jessica [facility] CPT-4: 64580 10/13/2017 ([id number]) OFFICE/OUTPATIENT VISIT EST Diagnosis: Pleurodynia[ICD10: R07.81] Sofi HYMAN JUSTEN DO [facility] CPT-4: 08539 10/12/2017 ([id number]) OFFICE/OUTPATIENT VISIT EST Diagnosis: Acute bronchitis, unspecified[ICD10: J20.9] Sofi GEE DO [facility] CPT-4: 85375 09/16/2017 ([id number]) OFFICE/OUTPATIENT VISIT EST Diagnosis: Other specified postprocedural states[ICD10: Z98.890] Diagnosis: Cellulitis of neck[ICD10: L03.221] Diagnosis: Tachycardia, unspecified[ICD10: R00.0] Jessica BELTRAN [facility] 18624 05/25/2017 ([id number]) OFFICE/OUTPATIENT VISIT EST Diagnosis: Lumbago with sciatica, right side[ICD10: M54.41] Diagnosis: Pain in unspecified joint[ICD10: M25.50] [facility]: 02892 01/03/2017 ([id number]) OFFICE/OUTPATIENT VISIT EST Diagnosis: Bitten or stung by nonvenomous insect and other nonvenomous arthropods, subsequent encounter[ICD10: W57.XXXD] Diagnosis: Essential (primary) hypertension[ICD10: I10] Diagnosis: Low back pain[ICD10: M54.5] Jessica VO S. O RENDER DO [facility] CPT-4: 29317 09/23/2016 OFFICE/OUTPATIENT VISIT EST Diagnosis: Bitten or stung by nonvenomous insect and other nonvenomous arthropods, initial encounter[ICD10: W57.XXXA] Diagnosis: Essential (primary) hypertension[ICD10: I10] Kaitlynn Mosley JESSICA [facility] CPT-4: 83663 09/03/2016 ([id number]) OFFICE/OUTPATIENT VISIT EST Diagnosis: Low back pain[ICD10: M54.5] Diagnosis: Radiculopathy, lumbosacral region[ICD10: M54.17] Jessica [facility] CPT-4: 07432 07/08/2016 ([id number]) OFFICE/OUTPATIENT VISIT EST Diagnosis: Acute pharyngitis, unspecified[ICD10: J02.9] Jessica [facility] CPT-4: 15614 06/21/2016 ([id number]) OFFICE/OUTPATIENT VISIT EST Diagnosis: Cough[ICD10: R05] Diagnosis: Fever, unspecified[ICD10: R50.9] Janiya [facility] CPT-4: 41371 02/23/2016 ([id number]) OFFICE/OUTPATIENT VISIT EST Diagnosis: Acute sinusitis, unspecified[ICD10: J01.90] Jessica [facility] CPT-4: 45232 02/16/2016 OFFICE/OUTPATIENT VISIT EST Diagnosis: Type 2 diabetes mellitus without complications[ICD10: E11.9] Diagnosis: Gastro-esophageal reflux disease without esophagitis[ICD10: K21.9] Diagnosis: Ventral hernia without obstruction or gangrene[ICD10: K43.9] Suki 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 CPT-4: 96604 01/28/2015 OFFICE/OUTPATIENT VISIT EST Diagnosis: SINUSITIS, ACUTE[ICD9: 461.9] Kaitlynn MENDENHALLQUELINE Monica [facility] CPT-4: 66273 12/06/2014 ([id number]) OFFICE/OUTPATIENT VISIT EST Diagnosis: SINUSITIS, ACUTE[ICD9: 461.9] Kaitlynn VO Monica [facility] CPT-4: 12367 08/09/2014 ([id number]) OFFICE/OUTPATIENT VISIT EST Diagnosis: TONSILLITIS, ACUTE[ICD9: 463] Suki GEE DO [facility] CPT-4: 06113 06/24/2014 OFFICE/OUTPATIENT VISIT EST Diagnosis: SINUSITIS, ACUTE[ICD9: 461.9] Diagnosis: EUSTACHIAN TUBE DYSFUNCTION[ICD9: 381.81] Diagnosis: COUGH[ICD9: 786.2] Suki GEE DO [facility] CPT-4: 49362 03/22/2014 OFFICE/OUTPATIENT VISIT EST Diagnosis: Elbow pain, right[ICD9: 719.42] Suki GEE DO [facility] CPT-4: 65881 03/05/2014 OFFICE/OUTPATIENT VISIT EST Diagnosis: SINUSITIS, ACUTE[ICD9: 461.9] Jessica GEE DO [facility] CPT-4: 27942 01/16/2014 ([id number]) OFFICE/OUTPATIENT VISIT EST Diagnosis: GROSS HEMATURIA[ICD9: 599.71] Jessica GEE DO [facility] CPT-4: 63336 10/19/2013 ([id number]) OFFICE/OUTPATIENT VISIT EST Diagnosis: DM W/O COMPLICATION TYPE II[ICD9: 250.00] Diagnosis: HYPERLIPIDEMIA NEC/NOS[ICD9: 272.4] Jessica GEE DO [facility] CPT-4: 95687 05/10/2013 ([id number]) OFFICE/OUTPATIENT VISIT EST Diagnosis: SINUSITIS, ACUTE[ICD9: 461.9] Jessica GEE DO [facility] CPT-4: 74917 04/17/2013 OFFICE/OUTPATIENT VISIT EST Diagnosis: OTITIS MEDIA NOS[ICD9: 382.9] Diagnosis: COUGH[ICD9: 786.2] Suki GEE DO [facility] CPT-4: 14725 03/05/2013 OFFICE/OUTPATIENT VISIT EST Diagnosis: COUGH[ICD9: 786.2] Diagnosis: BRONCHITIS, ACUTE[ICD9: 466.0] Suki GEE DO [facility] CPT-4: 07271 03/02/2013 OFFICE/OUTPATIENT VISIT EST Diagnosis: COUGH[ICD9: 786.2] Diagnosis: OTITIS MEDIA NOS[ICD9: 382.9] Diagnosis: BRONCHITIS, ACUTE[ICD9: 466.0] [facility]: 34343 03/01/2013 OFFICE/OUTPATIENT VISIT EST Diagnosis: DM W/O COMPLICATION TYPE II, UNCONTROLLED[ICD9: 250.02] [facility] CPT-[facility]: 47777 02/22/2013 ([id number]) PREV VISIT EST AGE 40-64 Diagnosis: DM W/O COMPLICATION TYPE II, UNCONTROLLED[ICD9: 250.02] Diagnosis: HYPERTENSION[ICD9: 401.9] Diagnosis: ROUTINE MEDICAL EXAM[ICD9: V70.0] [facility] CPT-[facility]: 41023 01/11/2013 OFFICE/OUTPATIENT VISIT EST Diagnosis: HZ (HERPES ZOSTER)[ICD9: 053.9] Kaitlynn Mosley [facility] CPT-4: 85560 11/03/2012 OFFICE/OUTPATIENT VISIT EST Diagnosis: URINARY TRACT INFECTION[ICD9: 599.0] Diagnosis: GERD[ICD9: 530.81] Diagnosis: PHARYNGITIS, ACUTE[ICD9: 462] [facility] 15537 05/04/2012 OFFICE/OUTPATIENT VISIT EST Diagnosis: COUGH[ICD9: 786.2] Diagnosis: SINUSITIS, ACUTE[ICD9: 461.9] Diagnosis: PHARYNGITIS, ACUTE[ICD9: 462] Jessica [facility] CPT-[facility]: 85876 10/11/2011 OFFICE/OUTPATIENT VISIT EST Diagnosis: COUGH[ICD9: 786.2] Diagnosis: SINUSITIS, ACUTE[ICD9: 461.9] Diagnosis: PHARYNGITIS, ACUTE[ICD9: 462] Diagnosis: ALLERGIC RHINITIS[ICD9: 477.9] Xiomara Rodriguez [facility]: 63722 06/23/2011 OFFICE/OUTPATIENT VISIT EST Diagnosis: COUGH[ICD9: 786.2] Diagnosis: SINUSITIS, ACUTE[ICD9: 461.9] Diagnosis: PHARYNGITIS, ACUTE[ICD9: 462] Jessica GEE DO [facility] CPT-4: 10425 06/14/2011 OFFICE/OUTPATIENT VISIT EST Diagnosis: SINUSITIS, ACUTE[ICD9: 461.9] Diagnosis: PHARYNGITIS, ACUTE[ICD9: 462] Jessica SUTTONNDER [facility] CPT-4: 42821 12/02/2010 OFFICE/OUTPATIENT VISIT EST Diagnosis: HYPERTENSION[ICD9: 401.9] Diagnosis: HYPERLIPIDEMIA NEC/NOS[ICD9: 272.4] Diagnosis: DERMATITIS NOS[ICD9: 692.9] Jessica VO S. O RENDER DO [facility] CPT-4: 18298 11/12/2010 OFFICE/OUTPATIENT VISIT EST Jessica Orr. [facility] CPT- 4: 02173 10/13/2010 ([id number]) OFFICE/OUTPATIENT VISIT EST Jessica BELTRAN SLloyd SUTTONNDER DO [facility] CPT-4: 40457 06/24/2010 ([id number]) OFFICE/OUTPATIENT VISIT EST Jessica BELTRAN S. HERMANNDER DO [facility] CPT-4: 37885 06/08/2010 ([id number]) OFFICE/OUTPATIENT VISIT EST Xiomara Rodriguez JESSICA S Lloyd SUTTONNDER DO [facility] CPT-4: 63495 05/20/2010 ([id number]) OFFICE/OUTPATIENT VISIT EST Jessica BELTRAN SLloyd SUTTONNDER DO [facility] CPT-4: 18465 04/30/2010 ([id number]) OFFICE/OUTPATIENT VISIT, EST Jessica MOFFETTCAMILLE SLloyd SUTTONNDMALVIN DO [facility] CPT-4: 41681 01/22/2010 Plan of Care Planned Activity Notes [...] : N39.0 09/27/2018 Appointment: Jessica Gee WPtel: [facility] [place] [id number] ACUTE ILLNESS 09/27/2018 Visit Diagnosis Plan: Carpal [...] I10 04/24/2018 Appointment: Jessica Gee WPtel: [phone] [id number] ACUTE ILLNESS 04/24/2018 Patient Education: celecoxib- [employer] [id number] Completed 04/24/2018 Patient Education: amitriptyline- [employer] [id number] Completed 04/24/2018 Visit Diagnosis Plan: Pain in [...] E11.9 12/27/2017 Appointment: Jessica Gee [facility]el[facility] [phone] [id number] [facility] 12/27/2017 Patient Education: Patient Medication Summary Completed 12/27/2017 Patient Education: Patient Medication Summary Completed 12/19/2017 Care Plan: MAMMOGRAM BOTH BREASTS LOINC : 54234-8 Pending 12/19/2017 Patient Education: Patient Medication Summary Completed 12/16/2017 Care Plan: ASSAY THYROID STIM HORMONE Pen ding 12/16/2017 Care Plan: ASSAY OF FREE THYROXINE Pendin g 12/16/2017 Care Plan: LIPID PANEL LOINC : 82458-2 Pending 12/16/2017 Care Plan: CBC Pending 12/16/2017 Care Plan: A1C HPLC LOINC : 48754-1 Pending 12/16/2017 Patient Education: Patient Medication Summary Completed 10/17/2017 Care Plan: CT ANGIOGRAPHY CHEST LOINC : 83838-3 Pending 10/17/2017 Patient Education: Patient Medication Summary Completed 10/14/2017 Care Plan: CT ANGIOGRAPHY CHEST LOINC : 56251-5 Pending 10/14/2017 Appointment: Jessica Gee WPtel[facility] [phone] [id number] [facility] 10/13/2017 Patient Education: Patient Medication Summary [...] : R07.81 10/12/2017 Appointment: Sofi Gresham [facility] ACUTE ILLNESS 10/12/2017 Patient Education: Patient [...] : J20.9 09/16/2017 App[facility]ment[facility] [facility] 09/16/2017 Patient Education: Patient Medication Summary Completed 09/16/2017 Appointment: Jsesica Gee WPtel: [address] [place], [place] [phone] [place] CANCELED 08/10/2017 Visit Diagnosis Plan: Tachycardia, [...] : Z98.890 05/25/2017 Appointment: Jessica Gee WPtel: [address] [place], [place] [phone] [place] FOLLOW UP 05/25/2017 Patient Education: Patient Medication Summary Completed 05/25/2017 Visit Diagnosis Plan: Lumbago with sciatica, right britton e Discussion: Check arthritis panel Patient awaiting neck surgery before surgery will consider back surgery ICD-9 : 724.2 ICD-10 : M54.41 01/03/2017 Appointment: Jessica Gee WPtel: [address] [place], [place] [phone] ACUTE ILLNESS 01/03/2017 Patient Education: Patient Medication Summary Completed 01/03/2017 Patient Education: Patient Medication Summary Completed 12/16/2016 Care Plan: MAMMOGRAM SCREENING LOINC : 2 6347-5 Pending 12/16/2016 Patient Education: Patient Medication Summary Completed 10/07/2016 Care Plan: MRI LUMBAR SPINE W/O & W/DYE LOINC : 76152-5 Pending 10/07/2016 Visit Diagnosis Plan: Bitten or [...] : I10 09/23/2016 Appointment: Jessica Gee WPtel: [address] [place] [address] 09/22 confirmed WORK IN 09/23/2016 Patient Education: Patient Medication Summary Completed 09/23/2016 Visit Plan: Tick panel at [facility] Increa se spironolactone to 2 po am (New Rx sent) Take B/P at home/work and also come to office next week for recheck Will await lab results before starting any antibiotic 09/03/2016 Appointment: Kaitlynn Mosley WPtel: [address] [place], [place] [phone] ACUTE ILLNESS 09/03/2016 Patient Education: Patient Medication Summary Completed 09/03/2016 Visit Diagnosis Plan: Low back pain Discussion: Celebr ex BID PT Continue stretches at home L/S xray Follow Up: 1 months ICD-9 : 724.2 ICD-10 : M54.5 07/08/2016 Appointment: Jessica Gee WPtel: [address] [place] [address] [place] ACUTE ILLNESS 07/08/2016 Patient Education: Patient Medication Summary Completed 07/08/2016 Care Plan: X-RAY EXAM L-S SPINE 2/3 VWS LOINC : 79504-3 Pending 07/08/2016 Visit Plan: Supportive care. Rest, Fluid s, Tylenol/Motrin prn fever or bodyaches. Notify if worsening symptoms.New toothebrush in 5 days 06/21/2016 Visit Diagnosis Plan: Acute pharyngitis, unspecified D iscussion: Strep Negative Supportive Care May use zyrtec 10mg q HS ICD-9 : 462 ICD-10 : J02.9 06/21/2016 Visit NOS Plan: Plan Notes: Supportive care. Rest, Fluids... 06/21/2016 Appointment: Jessica Gee WPtel: [address] [place] [address] ACUTE ILLNESS 06/21/2016 Patient Education: Patient Medication Summary Completed 06/21/2016 Visit Plan: No pulseox last week to comp are to today, but she does sound diminished today Studies as above ordered Continue cefdinir until results received Increase albuterol treatments to q4-6hrs PRN Continue supportive care 02/23/2016 Appointment: Janiya Gregorio [address] [place] [address] ACUTE ILLNESS 02/23/2016 Patient Education: Patient Medication Summary Completed 02/23/2016 Care Plan: CHEST X-RAY 2VW FRONTAL&LATL LOINC : 72002-2 Pending 02/23/2016 Visit Plan: Saline nasal flushes prn. Ty lenol/Motrin prn headache. Notify if persists/symptoms worsening. 02/16/2016 Appointment: Jessica Gee WPtel: [address] [place] [address] ACUTE ILLNESS 02/16/2016 Patient Education: Patient Medication Summary Completed 02/16/2016 Visit Plan: Discussed labs Continue Topr ol at 200 mg PO daily Increase Aciphex to BID Notify if increase of Aciphex does not give relief. Repeat PT/INR in 2 weeks. 02/11/2015 Appointment: Suki Barahona WPtel: [address] [place], [place] [phone] 02/10 confirmed ~sl FOLLOW UP 02/11/2015 Patient Education: Patient Medication Summary Completed 02/11/2015 Patient Education: Patient Medication Summary Completed 02/06/2015 Care Plan: POC PROTIME/INR LOINC : 08660 -6 Pending 02/06/2015 Visit Plan: Increase Toprol XL 200 mg to one full tablet daily (is currently taking only 1/2 tablet) To for EKG today Monitor daily BP Notify of any changes- increased numbness, weakness, headache etc. 01/28/2015 Appointment: Suki Barahona WPtel: [address] [place] [address] ACUTE ILLNESS 01/28/2015 Patient Education: Patient Medication Summary Completed 01/28/2015 Visit Plan: ERx Amoxicillin and Flonase Nasal saline, humidified air Facial heat or cold packs for comfort Increase fluids/rest Discussed s/s of worsening, go to over weekend if these occur. 12/06/2014 Appointment: Kaitlynn Mosley WPtel: [address] [place] [address] ACUTE ILLNESS 12/06/2014 Patient Education: Patient Medication Summary Completed 12/06/2014 Appointment: Kaitlynn Mosley WPtel: [address] [place] [address] ACUTE ILLNESS 08/09/2014 Patient Education: Patient Medication Summary Completed 08/09/2014 Appointment: Suki Barahona WPtel: [address] [place], [place] [phone] ACUTE ILLNESS 06/24/2014 Patient Education: Patient Medication Summary Completed 06/24/2014 Appointment: Suki Barahona WPtel: [address] [place] [address] ACUTE ILLNESS 03/22/2014 Patient Education: Patient Medication Summary Completed 03/22/2014 Patient Education: [employer] - Antibi otics, Analgesics 18+, Oral Contraceptives F 18+ Completed 03/22/2014 Appointment: Suki Barahona WPtel: [address] [place] [address] FOLLOW UP 03/05/2014 Patient Education: Patient Medication Summary Completed 03/05/2014 Visit Plan: Saline nasal flushes prn. Ty lenol/Motrin prn headache. Notify if persists/symptoms worsening. Restart flonase 01/16/2014 Appointment: Jessica Gee WPtel: [address] [place] [address] ACUTE ILLNESS 01/16/2014 Patient Education: Patient Medication Summary Completed 01/16/2014 Appointment: Jessica Gee WPtel: [address] [place] [address] 10/19/2013 Patient Education: Patient Medication Summary Completed 10/19/2013 Appointment: Jessica Gee WPtel: [address] [place] [address] 08/08 patient canceled appt and said will call back to [facility] FOLLOW UP 08/09/2013 Visit Plan: Increase Coumadin to 6mg M-F and stay on 5mg Sat, Sun Add lipids to labs Check PT/INR in 3wks Continue metfromin at current dose and accuchecks 05/10/2013 Appointment: Jessica Gee WPtel: [address] [place] [address] 05/09 FOLLOW UP 05/10/2013 Patient Education: Patient Medication Summary Completed 05/10/2013 Visit Plan: Saline nasal flushes prn. Ty lenol/Motrin prn headache. Notify if persists/symptoms worsening. 04/17/2013 Appointment: Jessica Gee WPtel: [address] [place] [address] ACUTE ILLNESS 04/17/2013 Patient Education: Patient Medication Summary Completed 04/17/2013 Appointment: Suki Barahona WPtel: [address] [place] [address] FOLLOW UP 03/05/2013 Patient Education: Patient Medication Summary Completed 03/05/2013 Appointment: Suki Barahona Edison WPtel: [address] [place] [address] FOLLOW UP 03/02/2013 Patient Education: Patient Medication Summary Completed 03/02/2013 Appointment: Suki Barahona WPtel: [address] [place] [address] ACUTE ILLNESS 03/01/2013 Patient Education: Patient Medication Summary Completed 03/01/2013 Visit Plan: Continue metformin and accuc hecks Add fish oil 1gram daily Check HbA1C, CMP in 2mos then fwup 02/22/2013 Appointment: Jessica Gee WPtel: [address] [place] [address] 02/21 [facility] FOLLOW UP 02/22/2013 Patient Education: Patient Medication Summary Completed 02/22/2013 Visit Plan: Start Metformin Start Accuch ecks daily alternating times Will go for dilated eye exam once BS more stabilized Diabetic foot care discussed Diabetic diet info given 01/11/2013 Appointment: Jessica eGe WPtel: [address] [place] [address] FOLLOW UP 01/11/2013 Patient Education: Patient Medication Summary Completed 01/11/2013 Appointment: Kaitlynn Mosley WPtel: [address] [place] [address] ACUTE ILLNESS 11/03/2012 Patient Education: Patient Medication Summary Completed 11/03/2012 Appointment: Xiomara Rodriguez WPtel: [address] [place] [address] ACUTE ILLNESS 05/04/2012 Patient Education: Patient Medication Summary Completed 05/04/2012 Visit Plan: pt reports that she always g ets yeast infections. Discussed that the antifungal can cause problems/increased bleeding with Coumdin. Pt. will start with probiotics and only take the Diflucan if needed. Cefdinir. 10/11/2011 Appointment: Xiomara Rodriguez WPtel: [address] [place] [address] ACUTE ILLNESS 10/11/2011 Patient Education: Patient Medication Summary Completed 10/11/2011 Appointment: Xiomara Rodriguez WPtel: [address] [place] [address] FOLLOW UP 06/23/2011 Patient Education: Patient Medication Summary Completed 06/23/2011 Visit Plan: Will prescribe an antibiotic and diflucan. Pt. reports that she frequently gets yeast infection. Discussed that she will notify if any symptoms persist. Pt. reports that her relatives have recently been hospitalized with pneumonia. 06/14/2011 Appointment: Xiomara Rodriguez WPtel: [address] [place] [address] ACUTE ILLNESS 06/14/2011 Patient Education: Patient Medication Summary Completed 06/14/2011 Visit Plan: sample of veramyst. Cefuroxi me axetil. Pt. will focus on hydration and rest. Discussed comfort measures and monitoring for worsening symptoms. 12/02/2010 Appointment: Xiomara Rodriguez WPtel: [address] [place] [address] ACUTE ILLNESS 12/02/2010 Patient Education: Patient Medication Summary Completed 12/02/2010 Visit Plan: Change HCTZ to spironolacton e will start zocor in 1 mo BP med in 1mo 11/12/2010 Appointment: Jessica Gee WPtel: [address] [place], [place] [phone] FOLLOW UP 11/12/2010 Patient Education: Patient Medication Summary Completed 11/12/2010 Appointment: Jessica Gee WPtel: [address] [place], [place] [phone] BP CHECK 10/26/2010 Patient Education: Patient Medication Summary Completed 10/26/2010 Visit Plan: Continue Toprol at bedtime A dd HCTZ in AM BP check in 2wks Fasting lab with next PT/INR 10/13/2010 Appointment: Jessica Gee WPtel: [address] [place], [place] [phone] FOLLOW UP 10/13/2010 Patient Education: Patient Medication Summary Completed 10/13/2010 Visit Plan: Cont abx. Fwup with surgery as scheduled 06/24/2010 Appointment: Jessica Gee WPtel: [address] [place] [address] Follow Up 06/24/2010 Patient Education: Patient Medication Summary Completed 06/24/2010 Appointment: Jessica Gee WPtel: [address] [place] [address] Follow Up 06/22/2010 Visit Plan: pt is [...] to subside. 06/08/2010 Appointment: Xiomara Rodriguez WPtel: [address] [place] [address] ACUTE ILLNESS 06/08/2010 Patient Education: Patient Medication Summary Completed 06/08/2010 Appointment: Xiomara Rodriguez WPtel: [address] [place] [address] FOLLOW UP 06/01/2010 Appointment: Jessica Gee WPtel: [address] [place] [address] 05/29/2010 Patient Education: Patient Medication Summary Completed 05/29/2010 Appointment: Xiomara Rodriguez WPtel: [address] [place] [address] ACUTE ILLNESS 05/20/2010 Patient Education: Patient Medication Summary Completed 05/20/2010 Appointment: Jessica Gee WPtel: [address] [place] [address] BP CHECK 05/13/2010 Patient Education: Patient Medication Summary Completed 05/13/2010 Visit Plan: Increase Lisinopril hct to 2 0/12.5mg q AM Use atarax prn and routinely at bedtime and Medrol dose pack BP check in 3wks Pt defers stress test at this time 04/30/2010 Appointment: Jessica Gee WPtel: [address] [place] [address] ACUTE ILLNESS 04/30/2010 Patient Education: Patient Medication Summary Completed 04/30/2010 Appointment: Jessica Gee WPtel: [address] [place] [address] BP CHECK 02/27/2010 Patient Education: Patient Medication Summary Completed 02/27/2010 Visit Plan: Cont Toprol Add Altace 10mg QD Cont Wellbutrin Will likely add SSRI after BP stable BP check in 2wks 01/22/2010 Appointment: Jessica Gee WPtel: [address] [place] [address] ACUTE ILLNESS 01/22/2010 Patient Education: Patient Medication Summary Completed 01/22/2010 Referral: Rupa Raines WPtel: [address] [id number] [place] Referral Completed Referral: Neymar Alberts WPtel: [address] [address] [place] Referral Initiated Instructions Comment . Tick [...]
--- OUTSIDE RECORDS SUMMARY | 2019-09-10 03:12 | XMS REPORT | CCD ---
Author Author Nava Gee D.O. Organization [facility] Address [address] [place] [address] Phone Care Team Providers Care Manager Employee Relations Name Role Phone Jessica Gee D.O., PP Unavailable CCM Unavailable Summary Purpose Interface Exchange Insurance Providers Payer name Policy type / Coverage type Covered libertarian ID Effective Begin Date Effective End Date Blue Cross Blue Shield Blue Cross/Blue Shield [id number] Unknown Family History Family History data not found Social History Social History Element Codes Description Effective Dates Tobacco history SNOMED CT: 952991367 Never smoker 10/13/2010 Allergies, Adverse Reactions, Alerts [...] findings ICD-9: V70.0 ICD-10: Z00.00 12/16/2017 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 TAKE AN ADDITIONAL TABLET ON TUESDAY AND Tuesday02/28/2019 No Stop Date Active Coumadin 5 mg tablet RxNorm: 457286 TAKE 1 TABLET BY MOUTH ONCE DAILY 02/28/2019 04/01/2019 Inactive omeprazole 40 mg capsule,delayed release RxNorm: 959039 TAKE 1 CAPSULE BY MOUTH TWICE DAILY 02/19/2019 No Stop Date Active metformin ER 500 mg tablet,extended release 24 hr RxNorm: 86 0975 1 Tablet(s) PO BID 02/19/2019 03/18/2019 Inactive metformin ER 500 mg tablet,extended release 24 hr RxNorm: 86 0975 1 Tablet(s) PO BID 01/15/2019 02/13/2019 Inactive alprazolam 0.25 mg tablet RxNorm: 691102 1 Tablet(s) Oral prior to flight 01/03/2019 No Stop Date Active omeprazole 40 mg capsule,delayed release RxNorm: 334806 TAKE 1 CAPSULE BY MOUTH TWICE DAILY 12/20/2018 02/18/2019 Inactive metformin ER 500 mg tablet,extended release 24 hr RxNorm: 86 0975 1 Tablet(s) PO BID 12/11/2018 01/09/2019 Inactive pravastatin 40 mg tablet RxNorm: 277651 TAKE 1 TABLET BY MOUTH ONCE DAILY 12/11/2018 03/18/2019 Inactive Coumadin 5 mg tablet RxNorm: 831847 1 Tablet(s) PO QD 11/27/201809/2018 Inactive metformin ER 500 mg tablet,extended release 24 hr RxNorm: 86 0975 1 Tablet(s) PO BID 10/02/2018 11/30/2018 Inactive warfarin 1 mg tablet RxNorm: 333554 TAKE 1 TABLET BY [facility] ONCE DAILY. TAKE AN ADDITIONAL TABLET ON TUESDAY AND Tuesday10/02/2018 02/27/2019 Inactiv e warfarin 5 mg tablet RxNorm: 478116 1 Tablet(s) PO QD 09/27/201810/2018 Inactive Bactrim DS 800 mg-160 mg tablet RxNorm: 140152 1 Tablet(s) PO BID 0 09/27/2018 10/03/2018 Inactive Toprol XL 200 mg tablet,extended release RxNorm: 136985 1 Table t(s) PO QD 09/18/2018 03/16/2019 Inactive omeprazole 40 mg capsule,delayed release RxNorm: 594903 TAKE 1 CAPSULE BY MOUTH TWICE DAILY 09/11/2018 12/19/2018 Inactive Coumadin 5 mg tablet RxNorm: 937457 1 Tablet(s) PO QD 08/21/201811/2018 Inactive metformin ER 500 mg tablet,extended release 24 hr RxNorm: 86 0975 1 Tablet(s) PO BID 07/31/2018 09/28/2018 Inactive omeprazole 40 mg capsule,delayed release RxNorm: 535950 TAKE 1 CAPSULE BY MOUTH TWICE DAILY 06/27/2018 09/10/2018 Inactive metformin ER 500 mg tablet,extended release 24 hr RxNorm: 86 0975 Tablet(s) 1 Tablet(s) PO BID 06/27/2018 07/31/2018 Inactive Toprol XL 200 mg tablet,extended release RxNorm: 578997 1 Table t(s) PO QD 06/14/2018 09/17/2018 Inactive Coumadin 5 mg tablet RxNorm: 614990 1 Tablet(s) PO QD 06/14/201804/2018 Inactive metformin ER 500 mg tablet,extended release 24 hr RxNorm: 86 0975 Tablet(s) 1 Tablet(s) PO BID 05/22/2018 06/26/2018 Inactive Coumadin 5 mg tablet RxNorm: 671243 TAKE 1 TABLET BY MOUTH ONCE DAILY 05/11/2018 06/14/2018 Inactive Lovenox 40 mg/0.4 mL subcutaneous syringe RxNorm: 341773 40 Mil ligram(s) SQ QD 05/05/2018 09/26/2018 Inactive amitriptyline 25 mg tablet RxNorm: 337398 1 Tablet(s) PO QHS fo r sleep/HAs 04/24/2018 10/20/2018 Inactive [place] Ultra Test strips RxNorm: Test blood sugar sigrid y (Dx:E11.65) 04/24/2018 No Stop Date Active celecoxib 200 mg capsule RxNorm: 053856 1 Capsule(s) PO BID 019 10/20/2018 Inactive Celebrex 200 mg capsule RxNorm: 881472 TAKE 1 CAPSULE BY MOUTH ONCE DAILY 04/19/2018 04/23/2018 Inactive warfarin 1 mg tablet RxNorm: 098542 1 Tablet(s) PO QD a nd additional tablet on Mon & Thurs 04/14/2018 10/01/2018 Inactive Toprol XL 200 mg tablet,extended release RxNorm: 240427 TAKE 1 TABLET BY MOUTH ONCE DAILY 04/11/2018 06/14/2018 Inactive metformin ER 500 mg tablet,extended release 24 hr RxNorm: 86 0975 Tablet(s) 1 Tablet(s) PO BID 03/17/2018 05/21/2018 Inactive Coumadin 5 mg tablet RxNorm: 801706 TAKE 1 TABLET BY MOUTH ONCE DAILY 03/15/2018 05/10/2018 Inactive Lovenox 40 mg/0.4 mL subcutaneous syringe RxNorm: 918530 40 Mil ligram(s) SQ QD 01/27/2018 04/11/2018 Inactive omeprazole 40 mg capsule,delayed release RxNorm: 895731 TAKE 1 CAPSULE BY MOUTH TWICE DAILY 01/23/2018 06/26/2018 Inactive pravastatin 40 mg tablet RxNorm: 102413 TAKE 1 TABLET BY MOUTH ONCE DAILY 01/23/2018 12/10/2018 Inactive metformin ER 500 mg tablet,extended release 24 hr RxNorm: 86 0975 Tablet(s) 1 Tablet(s) PO BID 01/16/2018 01/15/2018 Inactive Toprol XL 200 mg tablet,extended release RxNorm: 462618 TAKE 1 TABLET BY MOUTH ONCE DAILY 01/16/2018 04/10/2018 Inactive Coumadin 5 mg tablet RxNorm: 770799 TAKE 1 TABLET BY MOUTH ONCE DAILY 01/06/2018 03/14/2018 Inactive Celebrex 200 mg capsule RxNorm: 209735 1 Capsule(s) PO BID 12/28/19 18 03/26/2018 Inactive metformin ER 500 mg tablet,extended release 24 hr RxNorm: 86 0975 1 Tablet(s) PO BID Needs APPT 12/21/2017 01/16/2018 Inactive omeprazole 40 mg capsule,delayed release RxNorm: 660601 TAKE 1 CAPSULE BY MOUTH TWICE DAILY 11/02/2017 01/22/2018 Inactive Celebrex 200 mg capsule RxNorm: 969947 1 Capsule(s) PO QD 11/01/2017 12/26/2017 Inactive Coumadin 5 mg tablet RxNorm: 862002 Tablet(s) TAKE ONE TABLET BY MOUTH ONCE DAILY. 10/31/2017 12/29/2017 Inactive warfarin 1 mg tablet RxNorm: 151733 1 Tablet(s) PO QD 10/31/201703/22 Inactive spironolactone 25 mg tablet RxNorm: 344362 TAKE TWO TAB LETS BY MOUTH IN THE MORNING 10/31/2017 04/23/2018 Inactive metformin ER 500 mg tablet,extended release 24 hr RxNorm: 86 0975 1 Tablet(s) PO BID Needs updated fasting lab 10/20/2017 12/21/2017 Inactive Medrol (Dale) 4 mg tablets in a dose pack RxNorm: 399191 Tablet(s) PO take as directed 10/12/2017 12/15/2017 Inactive Celebrex 200 mg capsule RxNorm: 158053 1 Capsule(s) PO QD 10/03/2017 10/02/2017 Inactive spironolactone 25 mg tablet RxNorm: 704869 TAKE TWO TAB LETS BY MOUTH IN THE MORNING 09/19/2017 10/30/2017 Inactive Zithromax Z-Dale 250 mg tablet RxNorm: 984432 Tablet(s) PO take as directed 09/16/2017 10/11/2017 Inactive Medrol (Dale) 4 mg tablets in a dose pack RxNorm: 570840 Tablet(s) take as directed PO 09/16/2017 10/11/2017 Inactive doxycycline hyclate 100 mg tablet RxNorm: 3503374 1 Tablet(s) PO BI D 09/16/2017 09/15/2017 Inactive doxycycline hyclate 100 mg tablet RxNorm: 9612476 1 Tablet(s) PO BI D 09/16/2017 09/25/2017 Inactive Tessalon Perles 100 mg capsule RxNorm: 484733 1 Capsule(s) PO T ID as needed 09/16/2017 12/15/2017 Inactive warfarin 1 mg tablet RxNorm: 423335 1 Tablet(s) PO QD 09/06/201710/19 Inactive Coumadin 5 mg tablet RxNorm: 571366 Tablet(s) TAKE ONE TABLET BY MOUTH ONCE DAILY. 09/06/2017 10/31/2017 Inactive Toprol XL 200 mg tablet,extended release RxNorm: 555573 1 Table t(s) PO QD 2017 01/02/2018 Inactive warfarin 1 mg tablet RxNorm: 910085 1 Tablet(s) PO QD DUE FOR L ABS AUGUST 12 08/29/2017 09/06/2017 Inactive Coumadin 5 mg tablet RxNorm: 624376 Tablet(s) TAKE ONE TABLET BY MOUTH ONCE DAILY. DUE FOR PT/INR AUGUST 12 08/29/2017 09/06/2017 Inactive Coumadin 5 mg tablet RxNorm: 656204 Tablet(s) TAKE ONE TABLET BY MOUTH ONCE DAILY. DUE FOR PT/INR AUGUST 12 08/01/2017 08/29/2017 Inactive warfarin 1 mg tablet RxNorm: 575415 1 Tablet(s) PO QD DUE FOR L ABS AUGUST 12 08/01/2017 08/29/2017 Inactive scopolamine 1 mg over 3 days transdermal patch RxNorm: 35453 2 1 TD take off in 72 hours. 08/01/2017 12/26/2017 Inactive pravastatin 40 mg tablet RxNorm: 679689 Tablet(s) TAKE ONE TABLET BY MOUTH ONCE DAILY 07/07/2017 01/02/2018 Inactive Coumadin 5 mg tablet RxNorm: 322657 Tablet(s) TAKE ONE TABLET BY MOUTH ONCE DAILY. DUE FOR PT/INR. 06/29/2017 08/01/2017 Inactive warfarin 1 mg tablet RxNorm: 477557 1 Tablet(s) PO QD 06/29/201707/19 Inactive Coumadin 5 mg tablet RxNorm: 030400 TAKE ONE TABLET BY MOUTH ONCE DAILY. DUE FOR PT/INR. 05/30/2017 06/29/2017 Inactive omeprazole 40 mg capsule,delayed release RxNorm: 232783 1 Capsu le(s) PO BID 05/30/2017 08/27/2017 Inactive Celebrex 200 mg capsule RxNorm: 338052 1 Capsule(s) PO QD 05/23/2017 10/03/2017 Inactive metformin ER 500 mg tablet,extended release 24 hr RxNorm: 86 0975 TAKE ONE TABLET BY MOUTH TWICE DAILY 05/20/2017 10/20/2017 Inactive Coumadin 5 mg tablet RxNorm: 176598 1 Tablet(s) PO QD due for PT/IN R 04/25/2017 05/24/2017 Inactive warfarin 1 mg tablet RxNorm: 587395 1 Tablet(s) PO QD due for l abs this week 03/16/2017 06/29/2017 Inactive omeprazole 40 mg capsule,delayed release RxNorm: 774275 1 Capsu le(s) PO BID 03/16/2017 05/30/2017 Inactive Celebrex 200 mg capsule RxNorm: 499261 1 Capsule(s) PO BID as n eeded for pain 03/16/2017 05/22/2017 Inactive Coumadin 5 mg tablet RxNorm: 484039 1 Tablet(s) PO QD due for PT/IN R 03/16/2017 04/14/2017 Inactive Celebrex 200 mg capsule RxNorm: 372313 1 Capsule(s) PO BID as n eeded for pain 02/09/2017 03/15/2017 Inactive Toprol XL 200 mg tablet,extended release RxNorm: 719071 1 Table t(s) PO QD 02/08/2017 2017 Inactive Celebrex 200 mg capsule RxNorm: 956854 1 Capsule(s) PO BID as n eeded for pain 01/14/2017 02/08/2017 Inactive omeprazole 40 mg capsule,delayed release RxNorm: 195870 1 Capsu le(s) PO BID 01/12/2017 03/16/2017 Inactive Coumadin 5 mg tablet RxNorm: 330189 1 Tablet(s) PO QD 12/15/201602/19 Inactive warfarin 1 mg tablet RxNorm: 713677 1 Tablet(s) PO QD 12/15/201602/19 Inactive metformin ER 500 mg tablet,extended release 24 hr RxNorm: 86 0975 Tablet(s) TAKE ONE TABLET BY MOUTH TWICE DAILY 11/29/2016 02/26/2017 Inactive omeprazole 40 mg capsule,delayed release RxNorm: 113033 1 Capsu le(s) PO BID 11/29/2016 12/28/2016 Inactive pravastatin 40 mg tablet RxNorm: 859609 Tablet(s) TAKE ONE TABLET BY MOUTH ONCE DAILY 11/19/2016 07/07/2017 Inactive omeprazole 40 mg capsule,delayed release RxNorm: 412228 1 Capsu le(s) PO BID 10/19/2016 10/18/2016 Inactive omeprazole 40 mg capsule,delayed release RxNorm: 112505 1 Capsu le(s) PO BID 10/19/2016 11/17/2016 Inactive pantoprazole 40 mg tablet,delayed release RxNorm: 685591 1 Tabl et(s) PO QD 09/30/2016 10/18/2016 Inactive pantoprazole 40 mg tablet,delayed release RxNorm: 338555 1 Tabl et(s) PO QD 09/30/2016 09/29/2016 Inactive Zofran ODT 4 mg disintegrating tablet RxNorm: 725742 1 Tablet(s) PO Q4H as needed for nausea 09/15/2016 01/02/2017 Inactive Coumadin 5 mg tablet RxNorm: 963177 1 Tablet(s) PO QD 09/14/201611/20 Inactive warfarin 1 mg tablet RxNorm: 691130 1 Tablet(s) PO QD 09/14/201611/20 Inactive spironolactone 25 mg tablet RxNorm: 225895 2 Tablet(s) PO QAM 09/0301/02/2017 Inactive Wellbutrin XL 300 mg 24 hr tablet, extended release RxNorm: 437840 TAKE ONE TABLET BY MOUTH ONCE DAILY 08/26/2016 12/26/2017 Inactive Toprol XL 200 mg tablet,extended release RxNorm: 872501 1 Table t(s) PO QD 07/28/2016 02/08/2017 Inactive metformin ER 500 mg tablet,extended release 24 hr RxNorm: 86 0975 Tablet(s) TAKE ONE TABLET BY MOUTH TWICE DAILY 07/15/2016 11/29/2016 Inactive cyclobenzaprine 5 mg tablet RxNorm: 570118 1 Tablet(s) PO QHS f or spasm 07/08/2016 08/06/2016 Inactive Celebrex 200 mg capsule RxNorm: 1 Capsule(s) PO BID 07/08/2016 Inactive spironolactone 25 mg tablet RxNorm: 158276 1 Tablet(s) PO QAM 07/0609/02/2016 Inactive Wellbutrin XL 300 mg 24 hr tablet, extended release RxNorm: 479839 TAKE ONE TABLET BY MOUTH ONCE DAILY 06/15/2016 07/14/2016 Inactive Coumadin 5 mg tablet RxNorm: 012524 1 Tablet(s) PO QD 06/08/201608/20 Inactive warfarin 1 mg tablet RxNorm: 694840 1 Tablet(s) PO QD 06/08/201608/20 Inactive Toprol XL 200 mg tablet,extended release RxNorm: 779317 TAKE ONE TABLET BY MOUTH ONCE DAILY 04/26/2016 07/28/2016 Inactive pravastatin 40 mg tablet RxNorm: 158700 TAKE ONE TABLET BY MOUT H ONCE DAILY 04/19/2016 10/15/2016 Inactive Coumadin 5 mg tablet RxNorm: 458262 1 Tablet(s) PO QD 03/09/201605/19 Inactive warfarin 1 mg tablet RxNorm: 738114 1 Tablet(s) PO QD 03/09/201605/19 Inactive metformin ER 500 mg tablet,extended release 24 hr RxNorm: 86 0975 TAKE ONE TABLET BY MOUTH TWICE DAILY 02/25/2016 07/15/2016 Inactive spironolactone 25 mg tablet RxNorm: 284280 TAKE ONE TAB LET BY MOUTH ONCE DAILY IN THE MORNING 02/25/2016 07/06/2016 Inactive prednisone 20 mg tablet RxNorm: 058046 1 Tablet(s) PO QAM 02/16/2016 02/20/2016 Inactive cefdinir 300 mg capsule RxNorm: 767149 2 Capsule(s) PO QD 02/16/2016 02/25/2016 Inactive Toprol XL 200 mg tablet,extended release RxNorm: 062375 TAKE ONE TABLET BY MOUTH ONCE DAILY 01/26/2016 04/24/2016 Inactive Aciphex 20 mg tablet,delayed release RxNorm: 170399 1 Tablet(s) PO BID 12/24/2015 09/29/2016 Inactive Omeprazole and Pepci d have not helped. Coumadin 5 mg tablet RxNorm: 039338 1 Tablet(s) PO QD 12/10/201502/19 Inactive Coumadin 5 mg tablet RxNorm: 308530 1 Tablet(s) PO QD 12/08/201511/20 Inactive Toprol XL 200 mg tablet,extended release RxNorm: 317055 TAKE ONE TABLET BY MOUTH ONCE DAILY 11/20/2015 01/18/2016 Inactive warfarin 1 mg tablet RxNorm: 208053 1 Tablet(s) PO QD 11/03/201502/19 Inactive pravastatin 40 mg tablet RxNorm: 124440 Tablet(s) TAKE ONE TABLET BY MOUTH ONCE DAILY 10/20/2015 01/17/2016 Inactive pravastatin 40 mg tablet RxNorm: 823135 TAKE ONE TABLET BY MOUT H ONCE DAILY 10/20/2015 10/19/2015 Inactive metformin ER 500 mg tablet,extended release 24 hr RxNorm: 86 0975 TAKE ONE TABLET BY MOUTH TWICE DAILY 10/03/2015 12/31/2015 Inactive Toprol XL 200 mg tablet,extended release RxNorm: 083869 TAKE ONE TABLET BY MOUTH ONCE DAILY 09/17/2015 11/15/2015 Inactive Coumadin 5 mg tablet RxNorm: 345921 1 Tablet(s) PO QD 09/02/201511/19 Inactive Wellbutrin XL 300 mg 24 hr tablet, extended release RxNorm: 586559 TAKE ONE TABLET BY MOUTH ONCE DAILY 08/01/2015 10/29/2015 Inactive Pepcid 20 mg tablet RxNorm: 399299 1 Tablet(s) PO BID as needed 05/24/2017 Inactive warfarin 1 mg tablet RxNorm: 306019 TAKE ONE TABLET BY MOUTH ON CE DAILY 07/08/2015 11/03/2015 Inactive pravastatin 40 mg tablet RxNorm: 582510 1 Tablet(s) PO QD 07/08/2015 10/05/2015 Inactive spironolactone 25 mg tablet RxNorm: 068894 TAKE ONE TAB LET BY MOUTH ONCE DAILY IN THE MORNING 06/13/2015 09/10/2015 Inactive Coumadin 5 mg tablet RxNorm: 425863 1 Tablet(s) PO QD 06/05/201508/19 Inactive Wellbutrin XL 300 mg 24 hr tablet, extended release RxNorm: 102982 TAKE ONE TABLET BY MOUTH ONCE DAILY 05/16/2015 09/26/2018 Inactive Wellbutrin XL 300 mg 24 hr tablet, extended release RxNorm: 713291 TAKE ONE TABLET BY MOUTH ONCE DAILY 05/16/2015 06/14/2015 Inactive metformin ER 500 mg tablet,extended release 24 hr RxNorm: 86 0975 TAKE ONE TABLET BY MOUTH TWICE DAILY 05/16/2015 08/13/2015 Inactive pravastatin 40 mg tablet RxNorm: 953437 1 Tablet(s) PO QD 04/10/2015 07/07/2015 Inactive Aciphex 20 mg tablet,delayed release RxNorm: 637956 1 Tablet(s) PO BID 03/07/2015 09/02/2015 Inactive Omeprazole and Pepci d have not helped. Toprol XL 200 mg tablet,extended release RxNorm: 831289 1 Table t(s) PO QD 03/05/2015 08/31/2015 Inactive Aciphex 20 mg tablet,delayed release RxNorm: 945456 1 Tablet(s) PO QD 03/04/2015 03/06/2015 Inactive Omeprazole and Pepci d have not helped. Coumadin 5 mg tablet RxNorm: 700645 1 Tablet(s) PO QD 02/28/201511/2015 Inactive Aciphex 20 mg tablet,delayed release RxNorm: 943150 1 Tablet(s) PO BID 02/11/2015 03/03/2015 Inactive Omeprazole and Pepci d have not helped. metformin ER 500 mg tablet,extended release 24 hr RxNorm: 86 0975 1 Tablet(s) PO BID 01/10/2015 04/09/2015 Inactive pravastatin 40 mg tablet RxNorm: 928381 1 Tablet(s) PO QD 01/06/2015 04/05/2015 Inactive Wellbutrin XL 300 mg 24 hr tablet, extended release RxNorm: 681233 TAKE ONE TABLET BY MOUTH ONCE DAILY 12/19/2014 02/16/2015 Inactive amoxicillin 500 mg capsule RxNorm: 719458 2 Capsule(s) PO BID 12/0612/15/2014 Inactive Flonase 50 mcg/actuation nasal spray,suspension RxNorm: 8963 23 2 [place] each nostril NASAL QD 12/06/2014 03/05/2015 Inactive Coumadin 5 mg tablet RxNorm: 584969 1 Tablet(s) PO QD 11/28/201410/2014 Inactive spironolactone 25 mg tablet RxNorm: 331906 1 Tablet(s) PO QAM 11/2602/23/2015 Inactive Coumadin 5 mg tablet RxNorm: 858901 1 Tablet(s) PO QD 1 Tablet(s) PO QD- NEED TO CHECK LABS 10/30/2014 11/28/2014 Inactive warfarin 1 mg tablet RxNorm: 955397 1 Tablet(s) PO QD 10/30/201409/2015 Inactive Aciphex 20 mg tablet,delayed release RxNorm: 068191 1 Tablet(s) PO QD 10/02/2014 02/10/2015 Inactive Omeprazole and Pepci d have not helped. Coumadin 5 mg tablet RxNorm: 567295 1 Tablet(s) PO QD 1 Tablet(s) PO QD- NEED TO CHECK LABS 09/30/2014 10/30/2014 Inactive pravastatin 40 mg tablet RxNorm: 902059 1 Tablet(s) PO QD 09/25/2014 01/06/2015 Inactive warfarin 1 mg tablet RxNorm: 389254 1 Tablet(s) PO QD T [place] ONE TABLET BY MOUTH DIRECTED ON MON AND THUR 08/28/2014 10/29/2014 Inactive metformin ER 500 mg tablet,extended release 24 hr RxNorm: 86 0975 1 Tablet(s) PO BID 08/28/2014 01/10/2015 Inactive amoxicillin 875 mg tablet RxNorm: 864999 1 Tablet(s) PO BID 015 08/18/2014 Inactive Toprol XL 200 mg tablet,extended release RxNorm: 013935 TAKE ONE TABLET BY MOUTH ONCE DAILY 07/22/2014 03/05/2015 Inactive Coumadin 5 mg tablet RxNorm: 111955 1 Tablet(s) PO QD 07/01/201409/18 Inactive amoxicillin 875 mg tablet RxNorm: 905885 1 Tablet(s) PO BID 015 06/30/2014 Inactive pravastatin 40 mg tablet RxNorm: 520589 1 Tablet(s) PO QD needs fasting labs 06/19/2014 09/25/2014 Inactive Coumadin 5 mg tablet RxNorm: 931008 1 Tablet(s) PO QD 1 Tablet(s) PO QD TAKE ONE TABLET BY MOUTH ONCE DAILY-need labs 05/28/2014 07/01/2014 Inactive warfarin 1 mg tablet RxNorm: 275143 1 Tablet(s) PO As Directed 05/1908/28/2014 Inactive pravastatin 40 mg tablet RxNorm: 658923 1 Tablet(s) PO QD needs fasting labs 05/14/2014 06/19/2014 Inactive metformin ER 500 mg tablet,extended release 24 hr RxNorm: 86 0975 1 Tablet(s) PO BID 04/25/2014 08/28/2014 Inactive spironolactone 25 mg tablet RxNorm: 395988 1 Tablet(s) PO QAM 04/2511/26/2014 Inactive Coumadin 5 mg tablet RxNorm: 887992 1 Tablet(s) PO QD 1 Tablet(s) PO QD TAKE ONE TABLET BY MOUTH ONCE DAILY 04/23/2014 05/28/2014 Inactive Coumadin 5 mg tablet RxNorm: 369126 1 Tablet(s) PO QD 1 Tablet(s) PO QD TAKE ONE TABLET BY MOUTH ONCE DAILY 03/22/2014 04/20/2014 Inactive Tessalon Perles 100 mg capsule RxNorm: 806337 1 Capsule(s) PO TID 0 03/22/2014 03/28/2014 Inactive cefdinir 300 mg capsule RxNorm: 558670 2 Capsule(s) PO QD 03/22/2014 03/31/2014 Inactive Medrol (Dale) 4 mg tablets in a dose pack RxNorm: 637915 Tablet(s) PO as directed 03/05/2014 08/08/2014 Inactive Coumadin 5 mg tablet RxNorm: 235441 1 Tablet(s) PO QD 1 Tablet(s) PO QD TAKE ONE TABLET BY MOUTH ONCE DAILY 02/19/2014 03/20/2014 Inactive pravastatin 40 mg tablet RxNorm: 163254 1 Tablet(s) PO QD 02/04/2014 05/14/2014 Inactive Coumadin 5 mg tablet RxNorm: 795583 1 Tablet(s) PO QD T [place] ONE TABLET BY MOUTH ONCE DAILY 01/21/2014 02/19/2014 Inactive Medrol (Dale) 4 mg tablets in a dose pack RxNorm: 688810 Tablet(s) PO as directed 01/18/2014 03/04/2014 Inactive cefdinir 300 mg capsule RxNorm: 422306 2 Capsule(s) PO QD 01/16/2014 01/25/2014 Inactive metformin ER 500 mg tablet,extended release 24 hr RxNorm: 86 0975 1 Tablet(s) PO BID 12/17/2013 04/25/2014 Inactive Wellbutrin SR 150 mg tablet,sustained-release RxNorm: 131866 1 Tablet(s) PO BID 11/30/2013 02/27/2014 Inactive spironolactone 25 mg tablet RxNorm: 363028 1 Tablet(s) PO QAM 10/2204/25/2014 Inactive Macrobid 100 mg capsule RxNorm: 377947 1 Capsule(s) PO BID 10/20/19 14 10/25/2013 Inactive Macrobid 100 mg capsule RxNorm: 501629 1 Capsule(s) PO BID 10/20/19 14 10/18/2013 Inactive Toprol XL 100 mg tablet,extended release RxNorm: 268323 1 Table t(s) PO QD 10/15/2013 01/15/2014 Inactive Toprol XL 200 mg tablet,extended release RxNorm: 137422 1 Table t(s) PO QD 10/02/2013 07/22/2014 Inactive Wellbutrin XL 300 mg 24 hr tablet, extended release RxNorm: 942717 1 Tablet(s) PO QD 09/28/2013 12/19/2014 Inactive Aciphex 20 mg tablet,delayed release RxNorm: 075286 1 Tablet(s) PO QD 08/29/2013 10/02/2014 Inactive Omeprazole and Pepci d have not helped. Coumadin 5 mg tablet RxNorm: 030754 1 Tablet(s) PO QD 08/14/201307/20 Inactive Coumadin 5 mg tablet RxNorm: 909874 1 Tablet(s) PO QD 08/14/201305/2013 Inactive pravastatin 40 mg tablet RxNorm: 022069 1 Tablet(s) PO QD 07/24/2013 02/04/2014 Inactive warfarin 1 mg tablet RxNorm: 886026 1 Tablet(s) PO QD T [place] ONE TABLET BY MOUTH DIRECTED ON TUE AND 07/09/2013 05/28/2014 Inactive warfarin 5 mg tablet RxNorm: 512431 1 Tablet(s) PO QD T [place] ONE TABLET BY MOUTH EVERY DAY 06/08/2013 07/07/2013 Inactive spironolactone 25 mg tablet RxNorm: 990439 1 Tablet(s) PO QAM 05/3010/15/2013 Inactive clindamycin 300 mg capsule RxNorm: 519564 2 Capsule(s) PO TID 04/1704/30/2013 Inactive warfarin 5 mg tablet RxNorm: 472767 1 Tablet(s) PO QD 03/12/201305/20 Inactive azithromycin 250 mg tablet RxNorm: 783200 2 Tablet(s) PO QD 013 03/07/2013 Inactive metformin ER 500 mg tablet,extended release 24 hr RxNorm: 86 0975 1 Tablet(s) PO BID 02/22/2013 12/17/2013 Inactive spironolactone 25 mg tablet RxNorm: 896005 1 Tablet(s) PO QAM 01/2205/30/2013 Inactive metformin ER 500 mg tablet,extended release 24 hr RxNorm: 86 0977 1 Tablet(s) PO BID 01/11/2013 02/21/2013 Inactive pravastatin 40 mg tablet RxNorm: 644809 1 Tablet(s) PO QD 01/11/2013 07/24/2013 Inactive warfarin 5 mg tablet RxNorm: 399074 1 Tablet(s) PO QD 01/04/201302/19 Inactive warfarin 1 mg tablet RxNorm: 170047 Tablet(s) PO TAKE O NE TABLET BY MOUTH DIRECTED ON TUE AND 12/14/2012 07/08/2013 Inactive scopolamine 1.5 mg 72 hr Transderm Patch RxNorm: 634970 TD Apply 1 patch behind ear every 72 hours, replace after 3 days. 11/08/2012 01/15/2014 Inacti ve Pepcid 20 mg tablet RxNorm: 179401 1 Tablet(s) PO BID as needed 01/31/2013 Inactive Famvir 500 mg tablet RxNorm: 830983 1 Tablet(s) PO Q8H 11/03/2012 Inactive Aciphex 20 mg tablet,delayed release RxNorm: 914987 1 Tablet(s) PO QD 11/03/2012 05/01/2013 Inactive Omeprazole and Pepci d have not helped. gabapentin 300 mg capsule RxNorm: 232721 Capsule(s) PO TID 11/04/19 13 01/15/2014 Inactive warfarin 5 mg tablet RxNorm: 796438 1 Tablet(s) PO QD 11/02/201212/19 Inactive Wellbutrin XL 300 mg 24 hr tablet, extended release RxNorm: 379402 1 Tablet(s) PO QD 10/17/2012 04/30/2013 Inactive pravastatin 40 mg tablet RxNorm: 876737 Tablet(s) PO TA KE ONE TABLET BY MOUTH EVERY DAY. NEED FASTING LABS 09/18/2012 01/10/2013 Inactive Toprol XL 200 mg tablet,extended release RxNorm: 804001 Tablet(s) PO TAKE ONE TABLET BY MOUTH EVERY DAY 09/08/2012 10/01/2013 Inactive warfarin 5 mg tablet RxNorm: 144026 1 Tablet(s) PO QD 08/31/201210/19 Inactive pravastatin 40 mg tablet RxNorm: 842625 1 Tablet(s) PO QD Needs fasting labs 08/18/2012 09/16/2012 Inactive TAKE ONE TABLET BY M OUTH EVERY DAY warfarin 1 mg tablet RxNorm: 452012 1 Tablet(s) PO As directed on Mon and Th08/11/2012 12/13/2012 Inactive spironolactone 25 mg tablet RxNorm: 863067 1 Tablet(s) PO QAM 07/1110/08/2012 Inactive warfarin 5 mg tablet RxNorm: 898483 1 Tablet(s) PO QD 07/03/201208/19 Inactive Diflucan 100 mg tablet RxNorm: 737672 1 Tablet(s) PO QD 05/04/2012 Inactive Cipro 500 mg tablet RxNorm: 303628 1 Tablet(s) PO BID 05/04/201204/22 Inactive Aciphex 20 mg tablet,delayed release RxNorm: 730564 1 Tablet(s) PO QD 05/04/2012 07/02/2012 Inactive Omeprazole and Pepci d have not helped. warfarin 5 mg tablet RxNorm: 992939 1 Tablet(s) PO QD 05/02/201206/19 Inactive warfarin 5 mg tablet RxNorm: 723700 1 Tablet(s) PO QD 03/02/201204/21 Inactive Toprol XL 200 mg tablet,extended release RxNorm: 748826 1 Table t(s) PO QD 03/02/2012 05/30/2012 Inactive spironolactone 25 mg tablet RxNorm: 920580 1 Tablet(s) PO QAM 02/0707/11/2012 Inactive pravastatin 40 mg tablet RxNorm: 181076 Tablet(s) PO 01/31/201208/17 Inactive TAKE ONE TABLET BY MOUTH EVERY DAY pravastatin 40 mg tablet RxNorm: 022973 1 Tablet(s) PO QD 01/31/2012 08/18/2012 Inactive omeprazole 40 mg capsule,delayed release RxNorm: 110069 1 Capsule(s) PO QD for stomach 01/11/2012 11/02/2012 Inactive for stomach warfarin 5 mg tablet RxNorm: 545179 1 Tablet(s) PO QD 01/03/201202/18 Inactive warfarin 5 mg tablet RxNorm: 056138 1 Tablet(s) PO QD 12/03/201112/19 Inactive pravastatin 40 mg tablet RxNorm: 496737 1 Tablet(s) PO QD 11/25/2011 01/23/2012 Inactive cefdinir 300 mg Cap RxNorm: 282780 1 Capsule(s) PO BID 10/11/201103/2011 Inactive Culturelle 10 billion cell Cap RxNorm: 207992 1 Capsule(s) PO BID 0 10/11/2011 11/09/2011 Inactive Diflucan 100 mg Tab RxNorm: 825038 1 Tablet(s) PO QD 10/11/201110/19 Inactive Wellbutrin XL 300 mg 24 hr tablet, extended release RxNorm: 580011 1 Tablet(s) PO QD 09/14/2011 10/17/2012 Inactive pravastatin 40 mg tablet RxNorm: 740413 1 Tablet(s) PO QD 08/25/2011 11/25/2011 Inactive Coumadin 5 mg tablet RxNorm: 138293 Tablet(s) PO Take as direct ed by doctor. 07/07/2011 12/03/2011 Inactive Singulair 10 mg Tab RxNorm: 952025 1 Tablet(s) PO QD al lergy medication. (Please try to be consistent in dosing) 06/23/2011 01/15/2014 Inactive Diflucan 100 mg Tab RxNorm: 135635 1 Tablet(s) PO QD 06/14/201107/02 Inactive cefdinir 300 mg Cap RxNorm: 777632 1 Capsule(s) PO BID 06/14/201106/2011 Inactive pravastatin 40 mg Tab RxNorm: 822165 1 Tablet(s) PO QD 05/25/201108/2011 Inactive warfarin 5 mg Tab RxNorm: 627284 Tablet(s) PO 05/25/2011 10/18/2011 In active TAKE ONE TABLET BY MOUTH EVERY DAY Toprol XL 200 mg tablet,extended release RxNorm: 134985 1 Table t(s) PO QD 03/05/2011 06/02/2011 Inactive spironolactone 25 mg tablet RxNorm: 493512 1 Tablet(s) PO QAM 02/2402/08/2012 Inactive omeprazole 40 mg capsule,delayed release RxNorm: 903532 1 Capsule(s) PO QD for stomach 01/06/2011 01/11/2012 Inactive for stomach warfarin 5 mg Tab RxNorm: 477190 1 Tablet(s) PO QD 12/17/2010 011 Inactive warfarin 5 mg Tab RxNorm: 861002 1 Tablet(s) PO QD 11/18/2010 011 Inactive spironolactone 25 mg Tab RxNorm: 121190 1 Tablet(s) PO QAM 11/13/19 11 02/24/2011 Inactive Coumadin 6 mg Tab RxNorm: 224783 1 Tablet(s) PO QD 10/28/2010 011 Inactive May have generic hydrochlorothiazide 25 mg Tab RxNorm: 002414 1 Tablet(s) PO QAM 11/11/2010 Inactive Wellbutrin XL 300 mg 24 hr Tab RxNorm: 699693 1 Tablet(s) PO QD 09/14/2011 Inactive Septra DS 800 mg-160 mg Tab RxNorm: 456555 1 Tablet(s) PO BID 06/0806/17/2010 Inactive Pyridium 100 mg Tab RxNorm: 7607052 1 Tablet(s) PO TID 06/08/2010 Inactive Wellbutrin XL 300 mg 24 hr Tab RxNorm: 348959 1 Tablet(s) PO QD 05/201007/15/2010 Inactive hydroxyzine 25 mg Tab RxNorm: 471509 1 Tablet(s) PO QID prn itching--take routinely at bedtime. (pt. may not refil at this time but later) 05/20/2010 10/10/2011 Inactive Zyrtec 10 mg Tab RxNorm: 2818631 1 Tablet(s) PO BID 05/20/20102010 Inactive Coumadin 1 mg Tab RxNorm: 915351 1 Tablet(s) PO 6mg M-F, 7mg S-S 11/16/2010 Inactive hydroxyzine 25 mg Tab RxNorm: 342285 1 Tablet(s) PO QID prn itching--take routinely at bedtime 04/30/2010 05/19/2010 Inactive Toprol XL 200 mg 24 hr Tab RxNorm: 551006 1 Tablet(s) PO QD 011 06/23/2010 Inactive lisinopril-hydrochlorothiazide 10 mg-12.5 mg Tab RxNorm: 197 885 1 Tablet(s) PO QD 04/20/2010 04/29/2010 Inactive omeprazole 40 mg Cap, Delayed Release RxNorm: 088267 1 Capsule(s) PO QD for stomach 04/20/2010 08/17/2010 Inactive lisinopril-hydrochlorothiazide 10 mg-12.5 mg Tab RxNorm: 197 885 Tablet(s) PO 1QDAM - TAKE ONE TABLET BY MOUTH EVERY DAY IN THE MORNING 03/09/2010 Inactive lisinopril-hydrochlorothiazide 10 mg-12.5 mg Tab RxNorm: 197 885 1 Tablet(s) PO QD 02/27/2010 04/20/2010 Inactive Wellbutrin XL 300 mg 24 hr Tab RxNorm: 595252 1 Tablet(s) PO QD 05/21/2010 Inactive lisinopril-hydrochlorothiazide 10 mg-12.5 mg Tab RxNorm: 197 885 1 Tablet(s) PO QD 01/28/2010 02/26/2010 Inactive omeprazole 40 mg Cap, Delayed Release RxNorm: 521850 1 Capsule(s) PO QD for stomach 01/22/2010 04/20/2010 Inactive Altace 10 mg Cap RxNorm: 123912 1 Capsule(s) PO QD for BP 01/22/2010 03/22/2010 Inactive Coumadin 6 mg Tab RxNorm: 477726 1 Tablet(s) PO QD May have generic 12/03/2009 05/01/2010 Inactive Coumadin 6 mg Tab RxNorm: 166303 1 Tablet(s) PO 12/01/2009 12/02/2009 Inactive Coumadin 1 mg Tab RxNorm: 406261 1 Tablet(s) PO QD 11/28/2009 010 Inactive Coumadin 1 mg Tab RxNorm: 773412 1 Tablet(s) PO QD 07/02/2009 010 Inactive lisinopril-hydrochlorothiazide 20 mg-12.5 mg Tab RxNorm: 197 886 2 Tablet(s) PO QAM No Start Date 10/12/2010 Inactive Zofran ODT 4 mg disintegrating tablet RxNorm: 591812 1 Tablet(s) PO Q6H as needed for nausea No Start Date 09/14/2016 Inactive Wellbutrin XL 300 mg 24 hr Tab RxNorm: 656219 1 Tablet(s) PO QD No Start Date 02/02/2010 Inactive alprazolam 0.25 mg tablet RxNorm: 746559 1 Tablet(s) PO prior t o flight No Start Date 05/24/2017 Inactive hydrocodone-acetaminophen 5 mg-500 mg Tab RxNorm: 082324 1-2 Tablet(s) PO Q4H as needed for pain No Start Date 12/02/2010 Inactive Toprol XL 100 mg 24 hr Tab RxNorm: 663789 1 Tablet(s) PO QD No Star t Date 10/14/2013 Inactive Celebrex 200 mg capsule RxNorm: 553479 1 Capsule(s) PO QD No Start Date 05/22/2017 Inactive Flexeril 10 mg tablet RxNorm: 087121 1 Tablet(s) PO TID No Start Da te 04/02/2019 Inactive scopolamine 1 mg over 3 days transdermal patch RxNorm: 57270 2 1 TD take off in 72 hours. No Start Date 07/31/2017 Inactive OneTouch Ultra Test strips RxNorm: Test blood sugar daily No S tart Date 04/23/2018 Inactive Medrol (Dale) 4 mg tablets in a dose pack RxNorm: 466184 Tablet(s) PO As directed No Start Date 01/15/2014 Inactive Coumadin 5 mg Tab RxNorm: 223255 1 Tablet(s) PO QD No Start Date 06/19 Inactive Pepcid 40 mg Tab RxNorm: 725179 1 Tablet(s) PO QD No Start Date 06/23 Inactive prednisone 10 mg Tab RxNorm: 319485 1 Tablet(s) PO BID No Start Date 06/23/2010 Inactive spironolactone 25 mg tablet RxNorm: 307987 1 Tablet(s) PO QAM No St art Date 09/26/2018 Inactive scopolamine 1.5 mg 72 hr Transderm Patch RxNorm: 612850 TD Apply 1 patch behind ear every 72 hours, replace after 3 days. No Start Date 11/07/2012 Inacti ve azithromycin 250 mg Tab RxNorm: 201997 Tablet(s) PO 2 t abs on day one and one tab on days 2-5. (antibiotic) No Start Date 10/10/2011 Inactive Medrol (Dale) 4 mg Tabs in a Dose Pack RxNorm: 563640 1 Tablet(s) PO as directed. (steroid pack) No Start Date 10/10/2011 Inactive Lovenox 40 mg/0.4 mL subcutaneous syringe RxNorm: 063096 40 Mil ligram(s) SQ QD No Start Date 05/04/2018 Inactive Celebrex 200 mg capsule RxNorm: 935656 1 Capsule(s) PO BID as n eeded for pain No Start Date 01/13/2017 Inactive warfarin 1 mg tablet RxNorm: 742422 1 Tablet(s) PO As directed on Tue and No Start Date 08/10/2012 Inactive cefuroxime axetil 500 mg Tab RxNorm: 700689 1 Tablet(s) PO BID No S tart Date 06/13/2011 Inactive Lovenox 40 mg/0.4 mL subcutaneous syringe RxNorm: 135350 40 Mil ligram(s) SQ QD No Start Date 01/26/2018 Inactive Coumadin 5 mg tablet RxNorm: 192062 1 Tablet(s) PO QD No Start Date 0 08/13/2013 Inactive Medrol (Dale) 4 mg tablets in a dose pack RxNorm: 747477 Tablet(s) PO as directed No Start Date 01/17/2014 Inactive Coumadin 6 mg tablet RxNorm: 147474 1 Tablet(s) PO QD No Start Date 0 06/20/2016 Inactive warfarin 5 mg tablet RxNorm: 705934 1 Tablet(s) PO QD No Start Date 0 12/02/2011 Inactive Medrol (Dale) 4 mg Tabs in a Dose Pack RxNorm: 824243 Tablet(s) PO as directed No Start Date 06/23/2010 Inactive Flonase 50 mcg/actuation nasal spray,suspension RxNorm: 8963 23 2 [place] NASAL BID No Start Date 12/05/2014 Inactive Pepcid 20 mg tablet RxNorm: 339578 1 Tablet(s) PO BID as needed No Start Date 11/02/2012 Inactive spironolactone 25 mg tablet RxNorm: 841570 1 Tablet(s) PO QAM No St art Date 04/02/2019 Inactive Medication Administered No Medication Administered data Immunizations No Immunization data Results Observation Observation Code Item Item Code Result Date S ervice Location MICROALBUMIN URINE RANDOM 38465 CREAT MG/D 139 MG/DL Unknown MICROALBUMIN URINE RANDOM 32473 CRE/100 1.39 G/L 12/20 Unknown Procedures Procedure Codes Date URINALYSIS NONAUTO W/O SCOPE CPT-4: 53393 09/27/2018 URINE CULTURE/ COLONY COUNT CPT-4: 19155 09/27/2018 URINALYSIS NONAUTO W/O SCOPE CPT-4: 22381 10/13/2017 URINE CULTURE/ COLONY COUNT CPT-4: 87166 10/13/2017 STREP A ASSAY W/OPTIC CPT-4: 72061 06/21/2016 STREP A ASSAY W/OPTIC CPT-4: 97757 06/24/2014 THER/PROPH/DIAG INJ SC/IM CPT-4: 73277 03/22/2014 METHYLPREDNISOLONE 40 MG INJ CPT-4: J1030 03/22/2014 TRIAMCINOLONE ACET INJ NOS CPT-4: J3301 03/22/2014 URINALYSIS NONAUTO W/O SCOPE CPT-4: 90772 10/19/2013 URINE CULTURE/ COLONY COUNT CPT-4: 66733 10/19/2013 CEFTRIAXONE SODIUM INJECTION CPT-4: J0696 03/02/2013 THER/PROPH/DIAG INJ SC/IM CPT-4: 62033 03/02/2013 CEFTRIAXONE SODIUM INJECTION CPT-4: J0696 03/01/2013 THER/PROPH/DIAG INJ SC/IM CPT-4: 95172 03/01/2013 THER/PROPH/DIAG INJ SC/IM CPT-4: 30093 03/01/2013 METHYLPREDNISOLONE 40 MG INJ CPT-4: J1030 03/01/2013 TRIAMCINOLONE ACET INJ NOS CPT-4: J3301 03/01/2013 MICROALBUMIN QUANTITATIVE CPT-4: 22949 01/11/2013 URINE CULTURE/ COLONY COUNT CPT-4: 97479 05/04/2012 URINALYSIS NONAUTO W/O SCOPE CPT-4: 03800 05/04/2012 URINE CULTURE/ COLONY COUNT CPT-4: 55996 05/29/2010 TRIAMCINOLONE ACET INJ NOS CPT-4: J3301 05/20/2010 METHYLPREDNISOLONE 40 MG INJ CPT-4: J1030 05/20/2010 THER/PROPH/DIAG INJ SC/IM CPT-4: 46157 05/20/2010 Vital Signs Date Vital 04/03/2019 Blood [...] 1: 134/78 Code: 8480-6 BMI: 35.1 Code: 21851-0 Heart Rate 1: 76 bpm Height: 5'9" Respiratory Rate: 20 bpm Temperature: 36 .6 (C) / 97.8 (F) Weight: 238 lbs 12/27/2017 Blood Pressure 1: 126/64 Code: 8480-6 BMI: 34.7 Code: 79383-5 Heart Rate 1: 72 bpm Height: 5'9" Respiratory Rate: 20 bpm Temperature: 36 .8 (C) / 98.2 (F) Weight: 235 lbs 10/12/2017 Blood Pressure 1: 142/80 Code: 8480-6 BMI: 35.1 Code: 76772-1 Heart Rate 1: 98 bpm Height: 5'9" Respiratory Rate: 22 bpm SpO2: 100% Tempera ture: 36.5 (C) / 97.7 (F) Weight: 238 lbs 09/16/2017 Blood Pressure 1: 136/82 Code: 8480-6 BMI: 34.1 Code: 82929-2 Heart Rate 1: 82 bpm Height: 5'9" Respiratory Rate: 18 bpm SpO2: 96% Tempera ture: 36.3 (C) / 97.3 (F) Weight: 231 lbs 05/25/2017 Blood Pressure 1: 122/82 Code: 8480-6 BMI: 32.3 Code: 11727-8 Heart Rate 1: 116 bpm Height: 5'9" Respiratory Rate: 20 bpm SpO2: 98% Tempera ture: 35.6 (C) / 96.1 (F) Weight: 219 lbs 01/03/2017 Blood Pressure 1: 126/78 Code: 8480-6 BMI: 33.4 Code: 12294-4 Heart Rate 1: 72 bpm Height: 5'9" Respiratory Rate: 20 bpm Temperature: 36 .8 (C) / 98.2 (F) Weight: 226 lbs 09/23/2016 Blood Pressure 1: 126/82 Code: 8480-6 BMI: 33.8 Code: 95610-0 Heart Rate 1: 80 bpm Height: 5'9" Respiratory Rate: 20 bpm SpO2: 97% Tempera ture: 36.8 (C) / 98.2 (F) Weight: 229 lbs 09/03/2016 Blood Pressure 1: 188/64 Code: 8480-6 Bl ood Pressure 2: 166/92 Code: 8480-6 BMI: 34.4 Code: 45799-2 Heart Rate 1: 66 bpm Height: 5'9" Res piratory Rate: 20 bpm SpO2: 98% Temperature: 35.7 (C) / 96.2 (F) Weight: 233 lbs 07/08/2016 Blood Pressure 1: 134/82 Code: 8480-6 Heart Rate 1: 64 bpm Height: 5'9" Respiratory Rate: 20 bpm SpO2: 97% Temperature: 36.6 (C) / 97.8 (F) Weight: 06/21/2016 Blood Pressure 1: 112/68 Code: 8480-6 BMI: 33.8 Code: 47241-0 Heart Rate 1: 64 bpm Height: 5'9" Respiratory Rate: 20 bpm SpO2: 95% Tempera ture: 36.3 (C) / 97.3 (F) Weight: 229 lbs 02/23/2016 Blood Pressure 1: 128/78 Code: 8480-6 BMI: 33.4 Code: 70421-0 Heart Rate 1: 74 bpm Height: 5'9" [...] 1: 122/80 Code: 8480-6 BMI: 32.2 Code: 21301-0 Heart Rate 1: 80 bpm Height: 5'9" Respiratory Rate: 20 bpm Temperature: 37 .0 (C) / 98.6 (F) Weight: 218 lbs 08/09/2014 Blood Pressure 1: 132/84 Code: 8480-6 BMI: 33.1 Code: 71472-1 Heart Rate 1: 72 bpm Height: 5'9" Respiratory Rate: 20 bpm Temperature: 36 .7 (C) / 98.0 (F) Weight: 224 lbs 06/24/2014 Blood Pressure 1: 132/80 Code: 8480-6 BMI: 32.8 Code: 86822-2 Heart Rate 1: 68 bpm Height: 5'9" Respiratory Rate: 20 bpm Temperature: 36 .4 (C) / 97.6 (F) Weight: 222 lbs 03/22/2014 Blood Pressure 1: 128/84 Code: 8480-6 BMI: 32.5 Code: 61127-7 Heart Rate 1: 78 bpm Height: 5'9" Respiratory Rate: 22 bpm Temperature: 36 .0 (C) / 96.8 (F) Weight: 220 lbs 03/05/2014 Blood Pressure 1: 124/78 Code: 8480-6 BMI: 31.9 Code: 81294-5 Heart Rate 1: 82 bpm Height: 5'9" Respiratory Rate: 20 bpm Temperature: 35 .8 (C) / 96.4 (F) Weight: 216 lbs 01/16/2014 Blood Pressure 1: 116/68 Code: 8480-6 BMI: 33.8 Code: 89890-9 Heart Rate 1: 72 bpm Height: 5'7" Respiratory Rate: 20 bpm Temperature: 36 .6 (C) / 97.9 (F) Weight: 216 lbs 05/10/2013 Blood Pressure 1: 124/86 Code: 8480-6 BMI: 34.3 Code: 54406-9 Heart Rate 1: 84 bpm Height: 5'7" [...] 1: 116/84 Code: 8480-6 BMI: 33.1 Code: 00405-1 Heart Rate 1: 64 bpm Height: 5'9" Respiratory Rate: 20 bpm Temperature: 36 .4 (C) / 97.6 (F) Weight: 224 lbs 01/11/2013 Blood Pressure 1: 126/84 Code: 8480-6 BMI: 35.3 Code: 61472-1 Heart Rate 1: 68 bpm Height: 5'9" Respiratory Rate: 20 bpm Temperature: 36 .7 (C) / 98.1 (F) Weight: 239 lbs 11/03/2012 Blood Pressure 1: 104/70 Code: 8480-6 BMI: 34.4 Code: 46453-4 Heart Rate 1: 72 bpm Height: 5'9" Respiratory Rate: 20 bpm Temperature: 36 .8 (C) / 98.3 (F) Weight: 233 lbs 05/04/2012 Blood Pressure 1: 124/74 Code: 8480-6 BMI: 33.7 Code: 79099-9 Heart Rate 1: 84 bpm Height: 5'9" Temperature: 36.3 (C) / 97.3 (F) Weight: 228 lbs 10/11/2011 Blood Pressure 1: 110/70 Code: 8480-6 BMI: 33.7 Code: 13948-7 Heart Rate 1: 64 bpm Height: 5'9" Temperature: 36.8 (C) / 98.3 (F) Weight: 228 lbs 06/23/2011 Blood Pressure 1: 114/70 Code: 8480-6 BMI: 33.4 Code: 66753-6 Heart Rate 1: 80 bpm Height: 5'9" Respiratory Rate: 20 bpm Temperature: 36 .7 (C) / 98.0 (F) Weight: 226 lbs 06/14/2011 Blood Pressure 1: 118/74 Code: 8480-6 BMI: 33.4 Code: 23178-9 Heart Rate 1: 80 bpm Height: 5'9" [...] 1: 126/82 Code: 8480-6 BMI: 32.6 Code: 95826-2 Heart Rate 1: 68 bpm Height: 5'9" [...] 1: 140/92 Code: 8480-6 BMI: 31.3 Code: 25255-1 Heart Rate 1: 60 bpm Height: 5'10" [...] upper back on 08/13/16 while [place], [place]. Patient states is tender around tick [...] 01/22/2010 Encounters Encounter Performer Location Codes Date ([id number]) OFFICE/OUTPATIENT VISIT EST Diagnosis: Type 2 diabetes mellitus without complications[ICD10: E11.9] Diagnosis: Essential hypertension[ICD10: I10] Jessica OBRIEN [employer] CPT-4: 64391 04/03/2019 ([id number]) OFFICE/OUTPATIENT VISIT EST Diagnosis: Gastro-esophageal reflux disease without esophagitis[ICD10: K21.9] Diagnosis: Urinary tract infection, site not specified[ICD10: N39.0] Diagnosis: Ventral hernia without obstruction or gangrene[ICD10: K43.9] Jessica VO [place] CPT-4: 29384 09/27/2018 ([id number]) OFFICE/OUTPATIENT VISIT EST Diagnosis: Essential (primary) hypertension[ICD10: I10] Diagnosis: Type 2 diabetes mellitus without complications[ICD10: E11.9] Diagnosis: Carpal tunnel syndrome, right upper limb[ICD10: G56.01] Diagnosis: Primary insomnia[ICD10: F51.01] Jessica VO [employer] CPT-4: 86685 04/24/2018 ([id number]) OFFICE/OUTPATIENT VISIT EST Diagnosis: Type 2 diabetes mellitus without complications[ICD10: E11.9] Diagnosis: Mixed hyperlipidemia[ICD10: E78.2] Diagnosis: Essential (primary) hypertension[ICD10: I10] Diagnosis: Pain in unspecified joint[ICD10: M25.50] Jessica VO [employer] CPT-4: 50766 12/27/2017 ([id number]) NURSE/OUTPATIENT VISIT EST Diagnosis: Hematuria, unspecified[ICD10: R31.9] Jessica [facility] CPT-4: 69431 10/13/2017 ([id number]) OFFICE/OUTPATIENT VISIT EST Diagnosis: Pleurodynia[ICD10: R07.81] Sofi HYMAN JUSTEN DO [facility] CPT-4: 30854 10/12/2017 ([id number]) OFFICE/OUTPATIENT VISIT EST Diagnosis: Acute bronchitis, unspecified[ICD10: J20.9] Sofi GEE DO [facility] CPT-4: 06999 09/16/2017 ([id number]) OFFICE/OUTPATIENT VISIT EST Diagnosis: Other specified postprocedural states[ICD10: Z98.890] Diagnosis: Cellulitis of neck[ICD10: L03.221] Diagnosis: Tachycardia, unspecified[ICD10: R00.0] Jessica BELTRAN [facility] 06780 05/25/2017 ([id number]) OFFICE/OUTPATIENT VISIT EST Diagnosis: Lumbago with sciatica, right side[ICD10: M54.41] Diagnosis: Pain in unspecified joint[ICD10: M25.50] [facility] 20950 01/03/2017 ([id number]) OFFICE/OUTPATIENT VISIT EST Diagnosis: Bitten or stung by nonvenomous insect and other nonvenomous arthropods, subsequent encounter[ICD10: W57.XXXD] Diagnosis: Essential (primary) hypertension[ICD10: I10] Diagnosis: Low back pain[ICD10: M54.5] Jessica VO S. O RENDER DO [facility] CPT-4: 74435 09/23/2016 OFFICE/OUTPATIENT VISIT EST Diagnosis: Bitten or stung by nonvenomous insect and other nonvenomous arthropods, initial encounter[ICD10: W57.XXXA] Diagnosis: Essential (primary) hypertension[ICD10: I10] Kaitlynn Mosley JESSICA [facility] CPT-4: 01450 09/03/2016 ([id number]) OFFICE/OUTPATIENT VISIT EST Diagnosis: Low back pain[ICD10: M54.5] Diagnosis: Radiculopathy, lumbosacral region[ICD10: M54.17] Jessica [facility] CPT-4: 57380 07/08/2016 ([id number]) OFFICE/OUTPATIENT VISIT EST Diagnosis: Acute pharyngitis, unspecified[ICD10: J02.9] Jessica [facility] CPT-4: 24714 06/21/2016 ([id number]) OFFICE/OUTPATIENT VISIT EST Diagnosis: Cough[ICD10: R05] Diagnosis: Fever, unspecified[ICD10: R50.9] Janiya [facility] CPT-4: 43706 02/23/2016 ([id number]) OFFICE/OUTPATIENT VISIT EST Diagnosis: Acute sinusitis, unspecified[ICD10: J01.90] Jessica [facility] CPT-4: 61178 02/16/2016 OFFICE/OUTPATIENT VISIT EST Diagnosis: Type 2 diabetes mellitus without complications[ICD10: E11.9] Diagnosis: Gastro-esophageal reflux disease without esophagitis[ICD10: K21.9] Diagnosis: Ventral hernia without obstruction or gangrene[ICD10: K43.9] Suki [facility] CPT-4: 76112 02/11/2015 OFFICE/OUTPATIENT VISIT EST 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] Diagnosis: Essential (primary) hypertension[ICD10: I10] Suki [facility] CPT-4: 97695 01/28/2015 OFFICE/OUTPATIENT VISIT EST Diagnosis: SINUSITIS, ACUTE[ICD9: 461.9] Kaitlynn MENEDNHALLQUELINE Monica [facility] CPT-4: 64767 12/06/2014 ([id number]) OFFICE/OUTPATIENT VISIT EST Diagnosis: SINUSITIS, ACUTE[ICD9: 461.9] Kaitlynn VO Monica [facility] CPT-4: 76679 08/09/2014 ([id number]) OFFICE/OUTPATIENT VISIT EST Diagnosis: TONSILLITIS, ACUTE[ICD9: 463] Suki GEE DO [facility] CPT-4: 55048 06/24/2014 OFFICE/OUTPATIENT VISIT EST Diagnosis: SINUSITIS, ACUTE[ICD9: 461.9] Diagnosis: EUSTACHIAN TUBE DYSFUNCTION[ICD9: 381.81] Diagnosis: COUGH[ICD9: 786.2] Suki GEE DO [facility] CPT-4: 31213 03/22/2014 OFFICE/OUTPATIENT VISIT EST Diagnosis: Elbow pain, right[ICD9: 719.42] Suki GEE DO [facility] CPT-4: 08315 03/05/2014 OFFICE/OUTPATIENT VISIT EST Diagnosis: SINUSITIS, ACUTE[ICD9: 461.9] Jessica GEE DO [facility] CPT-4: 70156 01/16/2014 ([id number]) OFFICE/OUTPATIENT VISIT EST Diagnosis: GROSS HEMATURIA[ICD9: 599.71] Jessica GEE DO [facility] CPT-4: 85101 10/19/2013 ([id number]) OFFICE/OUTPATIENT VISIT EST Diagnosis: DM W/O COMPLICATION TYPE II[ICD9: 250.00] Diagnosis: HYPERLIPIDEMIA NEC/NOS[ICD9: 272.4] Jessica [facility]EE [facility] CPT-4: 75930 05/10/2013 ([id number]) OFFICE/OUTPATIENT VISIT EST Diagnosis: SINUSITIS, ACUTE[ICD9: 461.9] Jessica GEE DO [facility] CPT-4: 84356 04/17/2013 OFFICE/OUTPATIENT VISIT EST Diagnosis: OTITIS MEDIA NOS[ICD9: 382.9] Diagnosis: COUGH[ICD9: 786.2] Suki GEE DO [facility] CPT-4: 90119 03/05/2013 OFFICE/OUTPATIENT VISIT EST Diagnosis: COUGH[ICD9: 786.2] Diagnosis: BRONCHITIS, ACUTE[ICD9: 466.0] Suki GEE DO [facility] CPT-4: 21373 03/02/2013 OFFICE/OUTPATIENT VISIT EST Diagnosis: COUGH[ICD9: 786.2] Diagnosis: OTITIS MEDIA NOS[ICD9: 382.9] Diagnosis: BRONCHITIS, ACUTE[ICD9: 466.0] S[facility] C[facility]: 65062 03/01/2013 OFFICE/OUTPATIENT VISIT EST Diagnosis: DM W/O COMPLICATION TYPE II, UNCONTROLLED[ICD9: 250.02] Jessica [facility] CPT-[facility]: 18860 02/22/2013 ([id number]) PREV VISIT EST AGE 40-64 Diagnosis: DM W/O COMPLICATION TYPE II, UNCONTROLLED[ICD9: 250.02] Diagnosis: HYPERTENSION[ICD9: 401.9] Diagnosis: ROUTINE MEDICAL EXAM[ICD9: V70.0] Jessica [facility] CPT-[facility]: 02123 01/11/2013 OFFICE/OUTPATIENT VISIT EST Diagnosis: HZ (HERPES ZOSTER)[ICD9: 053.9] Kaitlynn Mosley [facility] CPT-[facility]: 23867 11/03/2012 OFFICE/OUTPATIENT VISIT EST Diagnosis: URINARY TRACT INFECTION[ICD9: 599.0] Diagnosis: GERD[ICD9: 530.81] Diagnosis: PHARYNGITIS, ACUTE[ICD9: 462] [facility]: 85361 05/04/2012 OFFICE/OUTPATIENT VISIT EST Diagnosis: COUGH[ICD9: 786.2] Diagnosis: SINUSITIS, ACUTE[ICD9: 461.9] Diagnosis: PHARYNGITIS, ACUTE[ICD9: 462] Jessica [facility] CPT-[facility]: 30624 10/11/2011 OFFICE/OUTPATIENT VISIT EST Diagnosis: COUGH[ICD9: 786.2] Diagnosis: SINUSITIS, ACUTE[ICD9: 461.9] Diagnosis: PHARYNGITIS, ACUTE[ICD9: 462] Diagnosis: ALLERGIC RHINITIS[ICD9: 477.9] Xiomara Rodriguez JESSICA [facility]a [facility] CPT-4: 89189 06/23/2011 OFFICE/OUTPATIENT VISIT EST Diagnosis: COUGH[ICD9: 786.2] Diagnosis: SINUSITIS, ACUTE[ICD9: 461.9] Diagnosis: PHARYNGITIS, ACUTE[ICD9: 462] Jessica GEE DO [facility] CPT-4: 55836 06/14/2011 OFFICE/OUTPATIENT VISIT EST Diagnosis: SINUSITIS, ACUTE[ICD9: 461.9] Diagnosis: PHARYNGITIS, ACUTE[ICD9: 462] Jessica [facility] CPT-4: 10223 12/02/2010 OFFICE/OUTPATIENT VISIT EST Diagnosis: HYPERTENSION[ICD9: 401.9] Diagnosis: HYPERLIPIDEMIA NEC/NOS[ICD9: 272.4] Diagnosis: DERMATITIS NOS[ICD9: 692.9] Jessica VO S. O RENDER DO [facility] CPT-4: 97264 11/12/2010 OFFICE/OUTPATIENT VISIT EST Jessica Orr. [facility] CPT- 4: 14847 10/13/2010 ([id number]) OFFICE/OUTPATIENT VISIT EST Jessica BELTRAN SLloyd SUTTONNDER DO [facility] CPT-4: 07300 06/24/2010 ([id number]) OFFICE/OUTPATIENT VISIT EST Jessica BELTRAN S. HERMANNDER DO [facility] CPT-4: 37114 06/08/2010 ([id number]) OFFICE/OUTPATIENT VISIT EST Xiomara Rodriguez JESSICA S Lloyd SUTTONNDER DO [facility] CPT-4: 48063 05/20/2010 ([id number]) OFFICE/OUTPATIENT VISIT EST Jessica BELTRAN SLloyd SUTTONNDER DO [facility] CPT-4: 31478 04/30/2010 ([id number]) OFFICE/OUTPATIENT VISIT, EST Jessica MOFFETTCAMILLE SLloyd SUTTONNDMALVIN DO [facility] CPT-4: 64211 01/22/2010 Plan of Care Planned Activity Notes [...] : N39.0 09/27/2018 Appointment: Jessica Gee WPtel: [facility] [place] [id number] [facility] 09/27/2018 Visit Diagnosis Plan: Carpal [...] I10 04/24/2018 Appointment: Jessica Gee WPtel: [phone] [facility] ACUTE ILLNESS 04/24/2018 Patient Education: celecoxib- [employer] [id number] Completed 04/24/2018 Patient Education: amitriptyline- [employer] [id number] Completed 04/24/2018 Visit Diagnosis Plan: Pain in [...] Care Plan: MAMMOGRAM BOTH BREASTS LOINC : 61828-3 Pending 12/19/2017 Patient Education: Patient Medication Summary Completed 12/16/2017 Care Plan: ASSAY THYROID STIM HORMONE Pen ding 12/16/2017 Care Plan: ASSAY OF FREE THYROXINE Pendin g 12/16/2017 Care Plan: LIPID PANEL LOINC : 77778-7 Pending 12/16/2017 Care Plan: CBC Pending 12/16/2017 Care Plan: A1C HPLC LOINC : 52384-0 Pending 12/16/2017 Patient Education: Patient Medication Summary Completed 10/17/2017 Care Plan: CT ANGIOGRAPHY CHEST LOINC : 84058-5 Pending 10/17/2017 Patient Education: Patient Medication Summary Completed 10/14/2017 Care Plan: CT ANGIOGRAPHY CHEST LOINC : 29562-5 Pending 10/14/2017 Appointment: Jessica Gee [facility]el[phone] [facility] [id number] [facility] 10/13/2017 Patient Education: Patient Medication Summary Completed 10/13/2017 Visit Diagnosis Plan: Pleurodynia Discussion: patient sent for stat cxray. medrol dose pack prescribed for symptom management. instructed to perform deep breathing exercises at home to prevent atelectasis or pneumonia. will notify pa tient of results of xray and order additional tests/medications as needed. ICD-9 : 786.50 ICD-10 : R07.81 10/12/2017 Appointment: Sofi Gresham [id number] ACUTE ILLNESS 10/12/2017 Patient Education: Patient [...] : J20.9 09/16/2017 Appointment: [facility]resh[id number] [place] 09/16/2017 Patient Education: Patient Medication Summary Completed 09/16/2017 Appointment: Jessica Gee WPtel: [address] [place], [place] [phone] [place] CANCELED 08/10/2017 Visit Diagnosis Plan: Tachycardia, [...] : Z98.890 05/25/2017 Appointment: Jessica Gee WPtel: [address] [place], [place] [phone] [place] FOLLOW UP 05/25/2017 Patient Education: Patient Medication Summary Completed 05/25/2017 Visit Diagnosis Plan: Lumbago with sciatica, right britton e Discussion: Check arthritis panel Patient awaiting neck surgery before surgery will consider back surgery ICD-9 : 724.2 ICD-10 : M54.41 01/03/2017 Appointment: Jessica Gee WPtel: [address] [place], [place] [phone] ACUTE ILLNESS 01/03/2017 Patient Education: Patient Medication Summary Completed 01/03/2017 Patient Education: Patient Medication Summary Completed 12/16/2016 Care Plan: MAMMOGRAM SCREENING LOINC : 2 6347-5 Pending 12/16/2016 Patient Education: Patient Medication Summary Completed 10/07/2016 Care Plan: MRI LUMBAR SPINE W/O & W/DYE LOINC : 74471-7 Pending 10/07/2016 Visit Diagnosis Plan: Bitten or [...] : I10 09/23/2016 Appointment: Jessica Gee WPtel: [address] [place] [address] 09/22 confirmed WORK IN 09/23/2016 Patient Education: Patient Medication Summary Completed 09/23/2016 Visit Plan: Tick panel at [facility] Increa se spironolactone to 2 po am (New Rx sent) Take B/P at home/work and also come to office next week for recheck Will await lab results before starting any antibiotic 09/03/2016 Appointment: Kaitlynn Mosley WPtel: [address] [place], [place] [phone] ACUTE ILLNESS 09/03/2016 Patient Education: Patient Medication Summary Completed 09/03/2016 Visit Diagnosis Plan: Low back pain Discussion: Celebr ex BID PT Continue stretches at home L/S xray Follow Up: 1 months ICD-9 : 724.2 ICD-10 : M54.5 07/08/2016 Appointment: Jessica Gee WPtel: [address] [place] [address] [place] ACUTE ILLNESS 07/08/2016 Patient Education: Patient Medication Summary Completed 07/08/2016 Care Plan: X-RAY EXAM L-S SPINE 2/3 VWS LOINC : 45734-6 Pending 07/08/2016 Visit Plan: Supportive care. Rest, Fluid s, Tylenol/Motrin prn fever or bodyaches. Notify if worsening symptoms.New toothebrush in 5 days 06/21/2016 Visit Diagnosis Plan: Acute pharyngitis, unspecified D iscussion: Strep Negative Supportive Care May use zyrtec 10mg q HS ICD-9 : 462 ICD-10 : J02.9 06/21/2016 Visit NOS Plan: Plan Notes: Supportive care. Rest, Fluids... 06/21/2016 Appointment: Jessica Gee WPtel: [address] [place] [address] ACUTE ILLNESS 06/21/2016 Patient Education: Patient Medication Summary Completed 06/21/2016 Visit Plan: No pulseox last week to comp are to today, but she does sound diminished today Studies as above ordered Continue cefdinir until results received Increase albuterol treatments to q4-6hrs PRN Continue supportive care 02/23/2016 Appointment: Janiya Gregorio [address] [place] [address] ACUTE ILLNESS 02/23/2016 Patient Education: Patient Medication Summary Completed 02/23/2016 Care Plan: CHEST X-RAY 2VW FRONTAL&LATL LOINC : 61646-1 Pending 02/23/2016 Visit Plan: Saline nasal flushes prn. Ty lenol/Motrin prn headache. Notify if persists/symptoms worsening. 02/16/2016 Appointment: Jessica Gee WPtel: [address] [place] [address] ACUTE ILLNESS 02/16/2016 Patient Education: Patient Medication Summary Completed 02/16/2016 Visit Plan: Discussed labs Continue Topr ol at 200 mg PO daily Increase Aciphex to BID Notify if increase of Aciphex does not give relief. Repeat PT/INR in 2 weeks. 02/11/2015 Appointment: Suki Barahona WPtel: [address] [place], [place] [phone] 02/10 confirmed ~sl FOLLOW UP 02/11/2015 Patient Education: Patient Medication Summary Completed 02/11/2015 Patient Education: Patient Medication Summary Completed 02/06/2015 Care Plan: POC PROTIME/INR LOINC : 76043 -6 Pending 02/06/2015 Visit Plan: Increase Toprol XL 200 mg to one full tablet daily (is currently taking only 1/2 tablet) To for EKG today Monitor daily BP Notify of any changes- increased numbness, weakness, headache etc. 01/28/2015 Appointment: Suki Barahona WPtel: [address] [place] [address] ACUTE ILLNESS 01/28/2015 Patient Education: Patient Medication Summary Completed 01/28/2015 Visit Plan: ERx Amoxicillin and Flonase Nasal saline, humidified air Facial heat or cold packs for comfort Increase fluids/rest Discussed s/s of worsening, go to over weekend if these occur. 12/06/2014 Appointment: Kaitlynn Mosley WPtel: [address] [place] [address] ACUTE ILLNESS 12/06/2014 Patient Education: Patient Medication Summary Completed 12/06/2014 Appointment: Kaitlynn Mosley WPtel: [address] [place] [address] ACUTE ILLNESS 08/09/2014 Patient Education: Patient Medication Summary Completed 08/09/2014 Appointment: Suki Barahona WPtel: [address] [place], [place] [phone] ACUTE ILLNESS 06/24/2014 Patient Education: Patient Medication Summary Completed 06/24/2014 Appointment: Suki Barahona WPtel: [address] [place] [address] ACUTE ILLNESS 03/22/2014 Patient Education: Patient Medication Summary Completed 03/22/2014 Patient Education: [employer] - Antibi otics, Analgesics 18+, Oral Contraceptives F 18+ Completed 03/22/2014 Appointment: Suki Barahona WPtel: [address] [place] [address] FOLLOW UP 03/05/2014 Patient Education: Patient Medication Summary Completed 03/05/2014 Visit Plan: Saline nasal flushes prn. Ty lenol/Motrin prn headache. Notify if persists/symptoms worsening. Restart flonase 01/16/2014 Appointment: Jessica Gee WPtel: [address] [place] [address] ACUTE ILLNESS 01/16/2014 Patient Education: Patient Medication Summary Completed 01/16/2014 Appointment: Jessica Gee WPtel: [address] [place] [address] 10/19/2013 Patient Education: Patient Medication Summary Completed 10/19/2013 Appointment: Jessica Gee WPtel: [address] [place] [address] 08/08 patient canceled appt and said will call back to [facility] FOLLOW UP 08/09/2013 Visit Plan: Increase Coumadin to 6mg M-F and stay on 5mg Sat, Sun Add lipids to labs Check PT/INR in 3wks Continue metfromin at current dose and accuchecks 05/10/2013 Appointment: Jessica Gee WPtel: [address] [place] [address] 05/09 FOLLOW UP 05/10/2013 Patient Education: Patient Medication Summary Completed 05/10/2013 Visit Plan: Saline nasal flushes prn. Ty lenol/Motrin prn headache. Notify if persists/symptoms worsening. 04/17/2013 Appointment: Jessica Gee WPtel: [address] [place] [address] ACUTE ILLNESS 04/17/2013 Patient Education: Patient Medication Summary Completed 04/17/2013 Appointment: Suki Barahona WPtel: [address] [place] [address] FOLLOW UP 03/05/2013 Patient Education: Patient Medication Summary Completed 03/05/2013 Appointment: Suki Barahona Edison WPtel: [address] [place] [address] FOLLOW UP 03/02/2013 Patient Education: Patient Medication Summary Completed 03/02/2013 Appointment: Suki Barahona WPtel: [address] [place] [address] ACUTE ILLNESS 03/01/2013 Patient Education: Patient Medication Summary Completed 03/01/2013 Visit Plan: Continue metformin and accuc hecks Add fish oil 1gram daily Check HbA1C, CMP in 2mos then fwup 02/22/2013 Appointment: Jessica Gee WPtel: [address] [place] [address] 02/21 [facility] FOLLOW UP 02/22/2013 Patient Education: Patient Medication Summary Completed 02/22/2013 Visit Plan: Start Metformin Start Accuch ecks daily alternating times Will go for dilated eye exam once BS more stabilized Diabetic foot care discussed Diabetic diet info given 01/11/2013 Appointment: Jessica Gee WPtel: [address] [place] [address] FOLLOW UP 01/11/2013 Patient Education: Patient Medication Summary Completed 01/11/2013 Appointment: Kaitlynn Mosley WPtel: [address] [place] [address] ACUTE ILLNESS 11/03/2012 Patient Education: Patient Medication Summary Completed 11/03/2012 Appointment: Xiomara Rodriguez WPtel: [address] [place] [address] ACUTE ILLNESS 05/04/2012 Patient Education: Patient Medication Summary Completed 05/04/2012 Visit Plan: pt reports that she always g ets yeast infections. Discussed that the antifungal can cause problems/increased bleeding with Coumdin. Pt. will start with probiotics and only take the Diflucan if needed. Cefdinir. 10/11/2011 Appointment: Xiomara Rodriguez WPtel: [address] [place] [address] ACUTE ILLNESS 10/11/2011 Patient Education: Patient Medication Summary Completed 10/11/2011 Appointment: Xiomara Rodriguez WPtel: [address] [place] [address] FOLLOW UP 06/23/2011 Patient Education: Patient Medication Summary Completed 06/23/2011 Visit Plan: Will prescribe an antibiotic and diflucan. Pt. reports that she frequently gets yeast infection. Discussed that she will notify if any symptoms persist. Pt. reports that her relatives have recently been hospitalized with pneumonia. 06/14/2011 Appointment: Xiomara Rodriguez WPtel: [address] [place] [address] ACUTE ILLNESS 06/14/2011 Patient Education: Patient Medication Summary Completed 06/14/2011 Visit Plan: sample of veramyst. Cefuroxi me axetil. Pt. will focus on hydration and rest. Discussed comfort measures and monitoring for worsening symptoms. 12/02/2010 Appointment: Xiomara Rodriguez WPtel: [address] [place] [address] ACUTE ILLNESS 12/02/2010 Patient Education: Patient Medication Summary Completed 12/02/2010 Visit Plan: Change HCTZ to spironolacton e will start zocor in 1 mo BP med in 1mo 11/12/2010 Appointment: Jessica Gee WPtel: [address] [place], [place] [phone] FOLLOW UP 11/12/2010 Patient Education: Patient Medication Summary Completed 11/12/2010 Appointment: Jessica Gee WPtel: [address] [place], [place] [phone] BP CHECK 10/26/2010 Patient Education: Patient Medication Summary Completed 10/26/2010 Visit Plan: Continue Toprol at bedtime A dd HCTZ in AM BP check in 2wks Fasting lab with next PT/INR 10/13/2010 Appointment: Jessica Gee WPtel: [address] [place], [place] [phone] FOLLOW UP 10/13/2010 Patient Education: Patient Medication Summary Completed 10/13/2010 Visit Plan: Cont abx. Fwup with surgery as scheduled 06/24/2010 Appointment: Jessica Gee WPtel: [address] [place] [address] Follow Up 06/24/2010 Patient Education: Patient Medication Summary Completed 06/24/2010 Appointment: Jessica Gee WPtel: [address] [place] [address] Follow Up 06/22/2010 Visit Plan: pt is [...] to subside. 06/08/2010 Appointment: Xiomara Rodriguez WPtel: [address] [place] [address] ACUTE ILLNESS 06/08/2010 Patient Education: Patient Medication Summary Completed 06/08/2010 Appointment: Xiomara Rodriguez WPtel: [address] [place] [address] FOLLOW UP 06/01/2010 Appointment: Jessica Gee WPtel: [address] [place] [address] 05/29/2010 Patient Education: Patient Medication Summary Completed 05/29/2010 Appointment: Xiomara Rodriguez WPtel: [address] [place] [address] ACUTE ILLNESS 05/20/2010 Patient Education: Patient Medication Summary Completed 05/20/2010 Appointment: Jessica Gee WPtel: [address] [place] [address] BP CHECK 05/13/2010 Patient Education: Patient Medication Summary Completed 05/13/2010 Visit Plan: Increase Lisinopril hct to 2 0/12.5mg q AM Use atarax prn and routinely at bedtime and Medrol dose pack BP check in 3wks Pt defers stress test at this time 04/30/2010 Appointment: Jessica Gee WPtel: [address] [place] [address] ACUTE ILLNESS 04/30/2010 Patient Education: Patient Medication Summary Completed 04/30/2010 Appointment: Jessica Gee WPtel: [address] [place] [address] BP CHECK 02/27/2010 Patient Education: Patient Medication Summary Completed 02/27/2010 Visit Plan: Cont Toprol Add Altace 10mg QD Cont Wellbutrin Will likely add SSRI after BP stable BP check in 2wks 01/22/2010 Appointment: Jessica Gee WPtel: [address] [place] [address] ACUTE ILLNESS 01/22/2010 Patient Education: Patient Medication Summary Completed 01/22/2010 Referral: Rupa Raines WPtel: [address] [id number] [place] Referral Completed Referral: Neymar Alberts WPtel: [address] [address] [place] Referral Initiated Instructions Comment . Tick [...]
--- OUTSIDE RECORDS SUMMARY | 2019-09-10 03:13 | XMS REPORT | CCD ---
Author Author Nava Gee D.O. Organization [facility] Address [address] [place] [address] Phone Care Team Providers Care Radiographer Technologist Name Role Phone Jessica Gee D.O., PP Unavailable CCM Unavailable Summary Purpose Interface Exchange Insurance Providers Payer name Policy type / Coverage type Covered green party ID Effective Begin Date Effective End Date Blue Cross Blue Shield Blue Cross/Blue Shield [id number] Unknown Family History Family History data not found Social History Social History Element Codes Description Effective Dates Tobacco history SNOMED CT: 619271836 Never smoker 10/13/2010 Allergies, Adverse Reactions, Alerts Substance Reaction Codes Entered Date Inactivated Date Status * NO KNOWN DRUG ALLERGIES Unknown 01/22/2010 No Inactiv e Date Active Problems Condition Codes Effective Dates Condition Status Gastro-esophageal reflux disease without esophagitis I CD-9: 530.81 ICD-10: K21.9 05/04/2012 Active Urinary tract infection, site not specified ICD-9: 599 .0 ICD-10: N39.0 09/27/2018 Active Ventral hernia without obstruction or gangrene ICD-9: 553.20 ICD-10: K43.9 02/10/2015 Active Carpal tunnel syndrome, right upper limb ICD-9: 354.0 ICD-10: G56.01 04/24/2018 Active Essential (primary) hypertension ICD-9: 401.9 ICD-10: I10 04/24/2018 Active Primary insomnia ICD-9: 780.52 ICD-10: F51.01 04/24/2018 Active Type 2 diabetes mellitus without complications ICD-9: 250.00 ICD-10: E11.9 05/10/2013 Active Mixed hyperlipidemia ICD-9: 272.4 ICD-10: E78.2 12/27/2017 Active Pain in unspecified joint ICD-9: 719.40 ICD-10: M25.50 12/27/2017 Active Encounter for other screening for malignant neoplasm o f breast ICD-9: V76.10 ICD-10: Z12.39 12/16/2016 Active Encounter for general adult medical examination withou t abnormal findings ICD-9: V70.0 ICD-10: Z00.00 12/16/2017 Active [facility] (current) use of anticoagulants ICD-9: V58.6 1 [...] Fill Instructions Coumadin 5 mg tablet RxNorm: 830020 TAKE 1 TABLET BY MOUTH ONCE DAILY 04/02/2019 05/01/2019 Active celecoxib 200 mg capsule RxNorm: 822699 TAKE 1 CAPSULE BY MOUTH TWICE DAILY 03/20/2019 06/17/2019 Active metformin ER 500 mg tablet,extended release 24 hr RxNorm: 86 0975 TAKE 1 TABLET BY MOUTH TWICE DAILY 03/19/2019 05/17/2019 Active pravastatin 40 mg tablet RxNorm: 503553 TAKE 1 TABLET BY MOUTH ONCE DAILY 03/19/2019 06/16/2019 Active warfarin 1 mg tablet RxNorm: 238943 TAKE 1 TABLET BY [facility] ONCE DAILY. TAKE AN ADDITIONAL TABLET ON TUESDAY AND Tuesday02/28/2019 No Stop Date Active Coumadin 5 mg tablet RxNorm: 391885 TAKE 1 TABLET BY MOUTH ONCE DAILY 02/28/2019 04/01/2019 Inactive omeprazole 40 mg capsule,delayed release RxNorm: 889041 TAKE 1 CAPSULE BY MOUTH TWICE DAILY 02/19/2019 No Stop Date Active metformin ER 500 mg tablet,extended release 24 hr RxNorm: 86 0975 1 Tablet(s) PO BID 02/19/2019 03/18/2019 Inactive metformin ER 500 mg tablet,extended release 24 hr RxNorm: 86 0975 1 Tablet(s) PO BID 01/15/2019 02/13/2019 Inactive alprazolam 0.25 mg tablet RxNorm: 237255 1 Tablet(s) Oral prior to flight 01/03/2019 No Stop Date Active omeprazole 40 mg capsule,delayed release RxNorm: 418204 TAKE 1 CAPSULE BY MOUTH TWICE DAILY 12/20/2018 02/18/2019 Inactive metformin ER 500 mg tablet,extended release 24 hr RxNorm: 86 0975 1 Tablet(s) PO BID 12/11/2018 01/09/2019 Inactive pravastatin 40 mg tablet RxNorm: 990199 TAKE 1 TABLET BY MOUTH ONCE DAILY 12/11/2018 03/18/2019 Inactive Coumadin 5 mg tablet RxNorm: 910014 1 Tablet(s) PO QD 11/27/201809/2018 Inactive metformin ER 500 mg tablet,extended release 24 hr RxNorm: 86 0975 1 Tablet(s) PO BID 10/02/2018 11/30/2018 Inactive warfarin 1 mg tablet RxNorm: 067406 TAKE 1 TABLET BY [facility] ONCE DAILY. TAKE AN ADDITIONAL TABLET ON TUESDAY AND Tuesday10/02/2018 02/27/2019 Inactiv e warfarin 5 mg tablet RxNorm: 838900 1 Tablet(s) PO QD 09/27/201810/2018 Inactive Bactrim DS 800 mg-160 mg tablet RxNorm: 716226 1 Tablet(s) PO BID 0 09/27/2018 10/03/2018 Inactive Toprol XL 200 mg tablet,extended release RxNorm: 758954 1 Table t(s) PO QD 09/18/2018 03/16/2019 Inactive omeprazole 40 mg capsule,delayed release RxNorm: 569777 TAKE 1 CAPSULE BY MOUTH TWICE DAILY 09/11/2018 12/19/2018 Inactive Coumadin 5 mg tablet RxNorm: 094738 1 Tablet(s) PO QD 08/21/201811/2018 Inactive metformin ER 500 mg tablet,extended release 24 hr RxNorm: 86 0975 1 Tablet(s) PO BID 07/31/2018 09/28/2018 Inactive omeprazole 40 mg capsule,delayed release RxNorm: 007936 TAKE 1 CAPSULE BY MOUTH TWICE DAILY 06/27/2018 09/10/2018 Inactive metformin ER 500 mg tablet,extended release 24 hr RxNorm: 86 0975 Tablet(s) 1 Tablet(s) PO BID 06/27/2018 07/31/2018 Inactive Toprol XL 200 mg tablet,extended release RxNorm: 863117 1 Table t(s) PO QD 06/14/2018 09/17/2018 Inactive Coumadin 5 mg tablet RxNorm: 571936 1 Tablet(s) PO QD 06/14/201804/2018 Inactive metformin ER 500 mg tablet,extended release 24 hr RxNorm: 86 0975 Tablet(s) 1 Tablet(s) PO BID 05/22/2018 06/26/2018 Inactive Coumadin 5 mg tablet RxNorm: 159537 TAKE 1 TABLET BY MOUTH ONCE DAILY 05/11/2018 06/14/2018 Inactive Lovenox 40 mg/0.4 mL subcutaneous syringe RxNorm: 345348 40 Mil ligram(s) SQ QD 05/05/2018 09/26/2018 Inactive amitriptyline 25 mg tablet RxNorm: 035443 1 Tablet(s) PO QHS fo r sleep/HAs 04/24/2018 10/20/2018 Inactive [employer] Ultra Test strips RxNorm: Test blood sugar sigrid y (Dx:E11.65) 04/24/2018 No Stop Date Active celecoxib 200 mg capsule RxNorm: 223808 1 Capsule(s) PO BID 019 10/20/2018 Inactive Celebrex 200 mg capsule RxNorm: 796152 TAKE 1 CAPSULE BY MOUTH ONCE DAILY 04/19/2018 04/23/2018 Inactive warfarin 1 mg tablet RxNorm: 224773 1 Tablet(s) PO QD a nd additional tablet on Tue & Th04/14/2018 10/01/2018 Inactive Toprol XL 200 mg tablet,extended release RxNorm: 252977 TAKE 1 TABLET BY MOUTH ONCE DAILY 04/11/2018 06/14/2018 Inactive metformin ER 500 mg tablet,extended release 24 hr RxNorm: 86 0975 Tablet(s) 1 Tablet(s) PO BID 03/17/2018 05/21/2018 Inactive Coumadin 5 mg tablet RxNorm: 702637 TAKE 1 TABLET BY MOUTH ONCE DAILY 03/15/2018 05/10/2018 Inactive Lovenox 40 mg/0.4 mL subcutaneous syringe RxNorm: 982973 40 Mil ligram(s) SQ QD 01/27/2018 04/11/2018 Inactive omeprazole 40 mg capsule,delayed release RxNorm: 795474 TAKE 1 CAPSULE BY MOUTH TWICE DAILY 01/23/2018 06/26/2018 Inactive pravastatin 40 mg tablet RxNorm: 786584 TAKE 1 TABLET BY MOUTH ONCE DAILY 01/23/2018 12/10/2018 Inactive metformin ER 500 mg tablet,extended release 24 hr RxNorm: 86 0975 Tablet(s) 1 Tablet(s) PO BID 01/16/2018 01/15/2018 Inactive Toprol XL 200 mg tablet,extended release RxNorm: 540967 TAKE 1 TABLET BY MOUTH ONCE DAILY 01/16/2018 04/10/2018 Inactive Coumadin 5 mg tablet RxNorm: 124082 TAKE 1 TABLET BY MOUTH ONCE DAILY 01/06/2018 03/14/2018 Inactive Celebrex 200 mg capsule RxNorm: 403577 1 Capsule(s) PO BID 12/28/19 18 03/26/2018 Inactive metformin ER 500 mg tablet,extended release 24 hr RxNorm: 86 0975 1 Tablet(s) PO BID Needs APPT 12/21/2017 01/16/2018 Inactive omeprazole 40 mg capsule,delayed release RxNorm: 188890 TAKE 1 CAPSULE BY MOUTH TWICE DAILY 11/02/2017 01/22/2018 Inactive Celebrex 200 mg capsule RxNorm: 999671 1 Capsule(s) PO QD 11/01/2017 12/26/2017 Inactive Coumadin 5 mg tablet RxNorm: 235943 Tablet(s) TAKE ONE TABLET BY MOUTH ONCE DAILY. 10/31/2017 12/29/2017 Inactive warfarin 1 mg tablet RxNorm: 585440 1 Tablet(s) PO QD 10/31/201703/22 Inactive spironolactone 25 mg tablet RxNorm: 565608 TAKE TWO TAB LETS BY MOUTH IN THE MORNING 10/31/2017 04/23/2018 Inactive metformin ER 500 mg tablet,extended release 24 hr RxNorm: 86 0975 1 Tablet(s) PO BID Needs updated fasting lab 10/20/2017 12/21/2017 Inactive Medrol (Dale) 4 mg tablets in a dose pack RxNorm: 543453 Tablet(s) PO take as directed 10/12/2017 12/15/2017 Inactive Celebrex 200 mg capsule RxNorm: 463185 1 Capsule(s) PO QD 10/03/2017 10/02/2017 Inactive spironolactone 25 mg tablet RxNorm: 487975 TAKE TWO TAB LETS BY MOUTH IN THE MORNING 09/19/2017 10/30/2017 Inactive Zithromax Z-Dale 250 mg tablet RxNorm: 496181 Tablet(s) PO take as directed 09/16/2017 10/11/2017 Inactive Medrol (Dale) 4 mg tablets in a dose pack RxNorm: 290916 Tablet(s) take as directed PO 09/16/2017 10/11/2017 Inactive doxycycline hyclate 100 mg tablet RxNorm: 0499593 1 Tablet(s) PO BI D 09/16/2017 09/15/2017 Inactive doxycycline hyclate 100 mg tablet RxNorm: 5723250 1 Tablet(s) PO BI D 09/16/2017 09/25/2017 Inactive Tessalon Perles 100 mg capsule RxNorm: 837585 1 Capsule(s) PO T ID as needed 09/16/2017 12/15/2017 Inactive warfarin 1 mg tablet RxNorm: 081508 1 Tablet(s) PO QD 09/06/201710/19 Inactive Coumadin 5 mg tablet RxNorm: 347288 Tablet(s) TAKE ONE TABLET BY MOUTH ONCE DAILY. 09/06/2017 10/31/2017 Inactive Toprol XL 200 mg tablet,extended release RxNorm: 065621 1 Table t(s) PO QD 2017 01/02/2018 Inactive warfarin 1 mg tablet RxNorm: 624259 1 Tablet(s) PO QD DUE FOR L ABS AUGUST 12 08/29/2017 09/06/2017 Inactive Coumadin 5 mg tablet RxNorm: 043166 Tablet(s) TAKE ONE TABLET BY MOUTH ONCE DAILY. DUE FOR PT/INR AUGUST 12 08/29/2017 09/06/2017 Inactive Coumadin 5 mg tablet RxNorm: 072485 Tablet(s) TAKE ONE TABLET BY MOUTH ONCE DAILY. DUE FOR PT/INR AUGUST 12 08/01/2017 08/29/2017 Inactive warfarin 1 mg tablet RxNorm: 726139 1 Tablet(s) PO QD DUE FOR L ABS AUGUST 12 08/01/2017 08/29/2017 Inactive scopolamine 1 mg over 3 days transdermal patch RxNorm: 62922 2 1 TD take off in 72 hours. 08/01/2017 12/26/2017 Inactive pravastatin 40 mg tablet RxNorm: 468059 Tablet(s) TAKE ONE TABLET BY MOUTH ONCE DAILY 07/07/2017 01/02/2018 Inactive Coumadin 5 mg tablet RxNorm: 294924 Tablet(s) TAKE ONE TABLET BY MOUTH ONCE DAILY. DUE FOR PT/INR. 06/29/2017 08/01/2017 Inactive warfarin 1 mg tablet RxNorm: 107179 1 Tablet(s) PO QD 06/29/201707/19 Inactive Coumadin 5 mg tablet RxNorm: 311941 TAKE ONE TABLET BY MOUTH ONCE DAILY. DUE FOR PT/INR. 05/30/2017 06/29/2017 Inactive omeprazole 40 mg capsule,delayed release RxNorm: 317942 1 Capsu le(s) PO BID 05/30/2017 08/27/2017 Inactive Celebrex 200 mg capsule RxNorm: 766108 1 Capsule(s) PO QD 05/23/2017 10/03/2017 Inactive metformin ER 500 mg tablet,extended release 24 hr RxNorm: 86 0975 TAKE ONE TABLET BY MOUTH TWICE DAILY 05/20/2017 10/20/2017 Inactive Coumadin 5 mg tablet RxNorm: 228613 1 Tablet(s) PO QD due for PT/IN R 04/25/2017 05/24/2017 Inactive warfarin 1 mg tablet RxNorm: 369813 1 Tablet(s) PO QD due for l abs this week 03/16/2017 06/29/2017 Inactive omeprazole 40 mg capsule,delayed release RxNorm: 753544 1 Capsu le(s) PO BID 03/16/2017 05/30/2017 Inactive Celebrex 200 mg capsule RxNorm: 285709 1 Capsule(s) PO BID as n eeded for pain 03/16/2017 05/22/2017 Inactive Coumadin 5 mg tablet RxNorm: 162377 1 Tablet(s) PO QD due for PT/IN R 03/16/2017 04/14/2017 Inactive Celebrex 200 mg capsule RxNorm: 317273 1 Capsule(s) PO BID as n eeded for pain 02/09/2017 03/15/2017 Inactive Toprol XL 200 mg tablet,extended release RxNorm: 728111 1 Table t(s) PO QD 02/08/2017 2017 Inactive Celebrex 200 mg capsule RxNorm: 601633 1 Capsule(s) PO BID as n eeded for pain 01/14/2017 02/08/2017 Inactive omeprazole 40 mg capsule,delayed release RxNorm: 273653 1 Capsu le(s) PO BID 01/12/2017 03/16/2017 Inactive Coumadin 5 mg tablet RxNorm: 615914 1 Tablet(s) PO QD 12/15/201602/19 Inactive warfarin 1 mg tablet RxNorm: 326363 1 Tablet(s) PO QD 12/15/201602/19 Inactive metformin ER 500 mg tablet,extended release 24 hr RxNorm: 86 0975 Tablet(s) TAKE ONE TABLET BY MOUTH TWICE DAILY 11/29/2016 02/26/2017 Inactive omeprazole 40 mg capsule,delayed release RxNorm: 943834 1 Capsu le(s) PO BID 11/29/2016 12/28/2016 Inactive pravastatin 40 mg tablet RxNorm: 055749 Tablet(s) TAKE ONE TABLET BY MOUTH ONCE DAILY 11/19/2016 07/07/2017 Inactive omeprazole 40 mg capsule,delayed release RxNorm: 184978 1 Capsu le(s) PO BID 10/19/2016 10/18/2016 Inactive omeprazole 40 mg capsule,delayed release RxNorm: 570687 1 Capsu le(s) PO BID 10/19/2016 11/17/2016 Inactive pantoprazole 40 mg tablet,delayed release RxNorm: 240489 1 Tabl et(s) PO QD 09/30/2016 10/18/2016 Inactive pantoprazole 40 mg tablet,delayed release RxNorm: 368209 1 Tabl et(s) PO QD 09/30/2016 09/29/2016 Inactive Zofran ODT 4 mg disintegrating tablet RxNorm: 420787 1 Tablet(s) PO Q4H as needed for nausea 09/15/2016 01/02/2017 Inactive Coumadin 5 mg tablet RxNorm: 184669 1 Tablet(s) PO QD 09/14/201611/20 Inactive warfarin 1 mg tablet RxNorm: 215179 1 Tablet(s) PO QD 09/14/201611/20 Inactive spironolactone 25 mg tablet RxNorm: 983421 2 Tablet(s) PO QAM 09/0301/02/2017 Inactive Wellbutrin XL 300 mg 24 hr tablet, extended release RxNorm: 686727 TAKE ONE TABLET BY MOUTH ONCE DAILY 08/26/2016 12/26/2017 Inactive Toprol XL 200 mg tablet,extended release RxNorm: 529903 1 Table t(s) PO QD 07/28/2016 02/08/2017 Inactive metformin ER 500 mg tablet,extended release 24 hr RxNorm: 86 0975 Tablet(s) TAKE ONE TABLET BY MOUTH TWICE DAILY 07/15/2016 11/29/2016 Inactive cyclobenzaprine 5 mg tablet RxNorm: 726016 1 Tablet(s) PO QHS f or spasm 07/08/2016 08/06/2016 Inactive Celebrex 200 mg capsule RxNorm: 1 Capsule(s) PO BID 07/08/2016 Inactive spironolactone 25 mg tablet RxNorm: 438919 1 Tablet(s) PO QAM 07/0609/02/2016 Inactive Wellbutrin XL 300 mg 24 hr tablet, extended release RxNorm: 028521 TAKE ONE TABLET BY MOUTH ONCE DAILY 06/15/2016 07/14/2016 Inactive Coumadin 5 mg tablet RxNorm: 828313 1 Tablet(s) PO QD 06/08/201608/20 Inactive warfarin 1 mg tablet RxNorm: 664430 1 Tablet(s) PO QD 06/08/201608/20 Inactive Toprol XL 200 mg tablet,extended release RxNorm: 276116 TAKE ONE TABLET BY MOUTH ONCE DAILY 04/26/2016 07/28/2016 Inactive pravastatin 40 mg tablet RxNorm: 690762 TAKE ONE TABLET BY MOUT H ONCE DAILY 04/19/2016 10/15/2016 Inactive Coumadin 5 mg tablet RxNorm: 221542 1 Tablet(s) PO QD 03/09/201605/19 Inactive warfarin 1 mg tablet RxNorm: 522786 1 Tablet(s) PO QD 03/09/201605/19 Inactive metformin ER 500 mg tablet,extended release 24 hr RxNorm: 86 0975 TAKE ONE TABLET BY MOUTH TWICE DAILY 02/25/2016 07/15/2016 Inactive spironolactone 25 mg tablet RxNorm: 290032 TAKE ONE TAB LET BY MOUTH ONCE DAILY IN THE MORNING 02/25/2016 07/06/2016 Inactive prednisone 20 mg tablet RxNorm: 708424 1 Tablet(s) PO QAM 02/16/2016 02/20/2016 Inactive cefdinir 300 mg capsule RxNorm: 012476 2 Capsule(s) PO QD 02/16/2016 02/25/2016 Inactive Toprol XL 200 mg tablet,extended release RxNorm: 223176 TAKE ONE TABLET BY MOUTH ONCE DAILY 01/26/2016 04/24/2016 Inactive Aciphex 20 mg tablet,delayed release RxNorm: 689140 1 Tablet(s) PO BID 12/24/2015 09/29/2016 Inactive Omeprazole and Pepci d have not helped. Coumadin 5 mg tablet RxNorm: 422195 1 Tablet(s) PO QD 12/10/201502/19 Inactive Coumadin 5 mg tablet RxNorm: 141822 1 Tablet(s) PO QD 12/08/201511/20 Inactive Toprol XL 200 mg tablet,extended release RxNorm: 630362 TAKE ONE TABLET BY MOUTH ONCE DAILY 11/20/2015 01/18/2016 Inactive warfarin 1 mg tablet RxNorm: 959969 1 Tablet(s) PO QD 11/03/201502/19 Inactive pravastatin 40 mg tablet RxNorm: 842008 Tablet(s) TAKE ONE TABLET BY MOUTH ONCE DAILY 10/20/2015 01/17/2016 Inactive pravastatin 40 mg tablet RxNorm: 263628 TAKE ONE TABLET BY MOUT H ONCE DAILY 10/20/2015 10/19/2015 Inactive metformin ER 500 mg tablet,extended release 24 hr RxNorm: 86 0975 TAKE ONE TABLET BY MOUTH TWICE DAILY 10/03/2015 12/31/2015 Inactive Toprol XL 200 mg tablet,extended release RxNorm: 492199 TAKE ONE TABLET BY MOUTH ONCE DAILY 09/17/2015 11/15/2015 Inactive Coumadin 5 mg tablet RxNorm: 835181 1 Tablet(s) PO QD 09/02/201511/19 Inactive Wellbutrin XL 300 mg 24 hr tablet, extended release RxNorm: 932695 TAKE ONE TABLET BY MOUTH ONCE DAILY 08/01/2015 10/29/2015 Inactive Pepcid 20 mg tablet RxNorm: 749618 1 Tablet(s) PO BID as needed 05/24/2017 Inactive warfarin 1 mg tablet RxNorm: 725925 TAKE ONE TABLET BY MOUTH ON CE DAILY 07/08/2015 11/03/2015 Inactive pravastatin 40 mg tablet RxNorm: 199063 1 Tablet(s) PO QD 07/08/2015 10/05/2015 Inactive spironolactone 25 mg tablet RxNorm: 230907 TAKE ONE TAB LET BY MOUTH ONCE DAILY IN THE MORNING 06/13/2015 09/10/2015 Inactive Coumadin 5 mg tablet RxNorm: 086403 1 Tablet(s) PO QD 06/05/201508/19 Inactive Wellbutrin XL 300 mg 24 hr tablet, extended release RxNorm: 805463 TAKE ONE TABLET BY MOUTH ONCE DAILY 05/16/2015 09/26/2018 Inactive Wellbutrin XL 300 mg 24 hr tablet, extended release RxNorm: 238553 TAKE ONE TABLET BY MOUTH ONCE DAILY 05/16/2015 06/14/2015 Inactive metformin ER 500 mg tablet,extended release 24 hr RxNorm: 86 0975 TAKE ONE TABLET BY MOUTH TWICE DAILY 05/16/2015 08/13/2015 Inactive pravastatin 40 mg tablet RxNorm: 764317 1 Tablet(s) PO QD 04/10/2015 07/07/2015 Inactive Aciphex 20 mg tablet,delayed release RxNorm: 290032 1 Tablet(s) PO BID 03/07/2015 09/02/2015 Inactive Omeprazole and Pepci d have not helped. Toprol XL 200 mg tablet,extended release RxNorm: 980485 1 Table t(s) PO QD 03/05/2015 08/31/2015 Inactive Aciphex 20 mg tablet,delayed release RxNorm: 709975 1 Tablet(s) PO QD 03/04/2015 03/06/2015 Inactive Omeprazole and Pepci d have not helped. Coumadin 5 mg tablet RxNorm: 308524 1 Tablet(s) PO QD 02/28/201511/2015 Inactive Aciphex 20 mg tablet,delayed release RxNorm: 914326 1 Tablet(s) PO BID 02/11/2015 03/03/2015 Inactive Omeprazole and Pepci d have not helped. metformin ER 500 mg tablet,extended release 24 hr RxNorm: 86 0975 1 Tablet(s) PO BID 01/10/2015 04/09/2015 Inactive pravastatin 40 mg tablet RxNorm: 667885 1 Tablet(s) PO QD 01/06/2015 04/05/2015 Inactive Wellbutrin XL 300 mg 24 hr tablet, extended release RxNorm: 739949 TAKE ONE TABLET BY MOUTH ONCE DAILY 12/19/2014 02/16/2015 Inactive amoxicillin 500 mg capsule RxNorm: 533441 2 Capsule(s) PO BID 12/0612/15/2014 Inactive Flonase 50 mcg/actuation nasal spray,suspension RxNorm: 8963 23 2 [place] each nostril NASAL QD 12/06/2014 03/05/2015 Inactive Coumadin 5 mg tablet RxNorm: 358515 1 Tablet(s) PO QD 11/28/201410/2014 Inactive spironolactone 25 mg tablet RxNorm: 272332 1 Tablet(s) PO QAM 11/2602/23/2015 Inactive Coumadin 5 mg tablet RxNorm: 674124 1 Tablet(s) PO QD 1 Tablet(s) PO QD- NEED TO CHECK LABS 10/30/2014 11/28/2014 Inactive warfarin 1 mg tablet RxNorm: 034533 1 Tablet(s) PO QD 10/30/201409/2015 Inactive Aciphex 20 mg tablet,delayed release RxNorm: 571122 1 Tablet(s) PO QD 10/02/2014 02/10/2015 Inactive Omeprazole and Pepci d have not helped. Coumadin 5 mg tablet RxNorm: 086089 1 Tablet(s) PO QD 1 Tablet(s) PO QD- NEED TO CHECK LABS 09/30/2014 10/30/2014 Inactive pravastatin 40 mg tablet RxNorm: 043837 1 Tablet(s) PO QD 09/25/2014 01/06/2015 Inactive warfarin 1 mg tablet RxNorm: 793697 1 Tablet(s) PO QD T [place] ONE TABLET BY MOUTH DIRECTED ON MON AND THUR 08/28/2014 10/29/2014 Inactive metformin ER 500 mg tablet,extended release 24 hr RxNorm: 86 0975 1 Tablet(s) PO BID 08/28/2014 01/10/2015 Inactive amoxicillin 875 mg tablet RxNorm: 179586 1 Tablet(s) PO BID 015 08/18/2014 Inactive Toprol XL 200 mg tablet,extended release RxNorm: 113757 TAKE ONE TABLET BY MOUTH ONCE DAILY 07/22/2014 03/05/2015 Inactive Coumadin 5 mg tablet RxNorm: 664849 1 Tablet(s) PO QD 07/01/201409/18 Inactive amoxicillin 875 mg tablet RxNorm: 527981 1 Tablet(s) PO BID 015 06/30/2014 Inactive pravastatin 40 mg tablet RxNorm: 515522 1 Tablet(s) PO QD needs fasting labs 06/19/2014 09/25/2014 Inactive Coumadin 5 mg tablet RxNorm: 714365 1 Tablet(s) PO QD 1 Tablet(s) PO QD TAKE ONE TABLET BY MOUTH ONCE DAILY-need labs 05/28/2014 07/01/2014 Inactive warfarin 1 mg tablet RxNorm: 407196 1 Tablet(s) PO As Directed 05/1908/28/2014 Inactive pravastatin 40 mg tablet RxNorm: 225112 1 Tablet(s) PO QD needs fasting labs 05/14/2014 06/19/2014 Inactive metformin ER 500 mg tablet,extended release 24 hr RxNorm: 86 0975 1 Tablet(s) PO BID 04/25/2014 08/28/2014 Inactive spironolactone 25 mg tablet RxNorm: 822526 1 Tablet(s) PO QAM 04/2511/26/2014 Inactive Coumadin 5 mg tablet RxNorm: 496044 1 Tablet(s) PO QD 1 Tablet(s) PO QD TAKE ONE TABLET BY MOUTH ONCE DAILY 04/23/2014 05/28/2014 Inactive Coumadin 5 mg tablet RxNorm: 780438 1 Tablet(s) PO QD 1 Tablet(s) PO QD TAKE ONE TABLET BY MOUTH ONCE DAILY 03/22/2014 04/20/2014 Inactive Tessalon Perles 100 mg capsule RxNorm: 124900 1 Capsule(s) PO TID 0 03/22/2014 03/28/2014 Inactive cefdinir 300 mg capsule RxNorm: 171787 2 Capsule(s) PO QD 03/22/2014 03/31/2014 Inactive Medrol (Dale) 4 mg tablets in a dose pack RxNorm: 166053 Tablet(s) PO as directed 03/05/2014 08/08/2014 Inactive Coumadin 5 mg tablet RxNorm: 118695 1 Tablet(s) PO QD 1 Tablet(s) PO QD TAKE ONE TABLET BY MOUTH ONCE DAILY 02/19/2014 03/20/2014 Inactive pravastatin 40 mg tablet RxNorm: 177787 1 Tablet(s) PO QD 02/04/2014 05/14/2014 Inactive Coumadin 5 mg tablet RxNorm: 372837 1 Tablet(s) PO QD T [place] ONE TABLET BY MOUTH ONCE DAILY 01/21/2014 02/19/2014 Inactive Medrol (Dale) 4 mg tablets in a dose pack RxNorm: 658668 Tablet(s) PO as directed 01/18/2014 03/04/2014 Inactive cefdinir 300 mg capsule RxNorm: 647606 2 Capsule(s) PO QD 01/16/2014 01/25/2014 Inactive metformin ER 500 mg tablet,extended release 24 hr RxNorm: 86 0975 1 Tablet(s) PO BID 12/17/2013 04/25/2014 Inactive Wellbutrin SR 150 mg tablet,sustained-release RxNorm: 251378 1 Tablet(s) PO BID 11/30/2013 02/27/2014 Inactive spironolactone 25 mg tablet RxNorm: 401955 1 Tablet(s) PO QAM 10/2204/25/2014 Inactive Macrobid 100 mg capsule RxNorm: 502174 1 Capsule(s) PO BID 10/20/19 14 10/25/2013 Inactive Macrobid 100 mg capsule RxNorm: 179200 1 Capsule(s) PO BID 10/20/19 14 10/18/2013 Inactive Toprol XL 100 mg tablet,extended release RxNorm: 639831 1 Table t(s) PO QD 10/15/2013 01/15/2014 Inactive Toprol XL 200 mg tablet,extended release RxNorm: 066874 1 Table t(s) PO QD 10/02/2013 07/22/2014 Inactive Wellbutrin XL 300 mg 24 hr tablet, extended release RxNorm: 523004 1 Tablet(s) PO QD 09/28/2013 12/19/2014 Inactive Aciphex 20 mg tablet,delayed release RxNorm: 015623 1 Tablet(s) PO QD 08/29/2013 10/02/2014 Inactive Omeprazole and Pepci d have not helped. Coumadin 5 mg tablet RxNorm: 201955 1 Tablet(s) PO QD 08/14/201307/20 Inactive Coumadin 5 mg tablet RxNorm: 188330 1 Tablet(s) PO QD 08/14/201305/2013 Inactive pravastatin 40 mg tablet RxNorm: 727744 1 Tablet(s) PO QD 07/24/2013 02/04/2014 Inactive warfarin 1 mg tablet RxNorm: 719404 1 Tablet(s) PO QD T [place] ONE TABLET BY MOUTH DIRECTED ON TUE AND UR 07/09/2013 05/28/2014 Inactive warfarin 5 mg tablet RxNorm: 989400 1 Tablet(s) PO QD T [place] ONE TABLET BY MOUTH EVERY DAY 06/08/2013 07/07/2013 Inactive spironolactone 25 mg tablet RxNorm: 439230 1 Tablet(s) PO QAM 05/3010/15/2013 Inactive clindamycin 300 mg capsule RxNorm: 540988 2 Capsule(s) PO TID 04/1704/30/2013 Inactive warfarin 5 mg tablet RxNorm: 947666 1 Tablet(s) PO QD 03/12/201305/20 Inactive azithromycin 250 mg tablet RxNorm: 237241 2 Tablet(s) PO QD 013 03/07/2013 Inactive metformin ER 500 mg tablet,extended release 24 hr RxNorm: 86 0975 1 Tablet(s) PO BID 02/22/2013 12/17/2013 Inactive spironolactone 25 mg tablet RxNorm: 935365 1 Tablet(s) PO QAM 01/2205/30/2013 Inactive metformin ER 500 mg tablet,extended release 24 hr RxNorm: 86 0977 1 Tablet(s) PO BID 01/11/2013 02/21/2013 Inactive pravastatin 40 mg tablet RxNorm: 279833 1 Tablet(s) PO QD 01/11/2013 07/24/2013 Inactive warfarin 5 mg tablet RxNorm: 701455 1 Tablet(s) PO QD 01/04/201302/19 Inactive warfarin 1 mg tablet RxNorm: 173552 Tablet(s) PO TAKE O NE TABLET BY MOUTH DIRECTED ON TUE AND UR 12/14/2012 07/08/2013 Inactive scopolamine 1.5 mg 72 hr Transderm Patch RxNorm: 304377 TD Apply 1 patch behind ear every 72 hours, replace after 3 days. 11/08/2012 01/15/2014 Inacti ve Pepcid 20 mg tablet RxNorm: 358616 1 Tablet(s) PO BID as needed 01/31/2013 Inactive Famvir 500 mg tablet RxNorm: 458662 1 Tablet(s) PO Q8H 11/03/2012 Inactive Aciphex 20 mg tablet,delayed release RxNorm: 685972 1 Tablet(s) PO QD 11/03/2012 05/01/2013 Inactive Omeprazole and Pepci d have not helped. gabapentin 300 mg capsule RxNorm: 756023 Capsule(s) PO TID 11/04/19 13 01/15/2014 Inactive warfarin 5 mg tablet RxNorm: 023869 1 Tablet(s) PO QD 11/02/201212/19 Inactive Wellbutrin XL 300 mg 24 hr tablet, extended release RxNorm: 549124 1 Tablet(s) PO QD 10/17/2012 04/30/2013 Inactive pravastatin 40 mg tablet RxNorm: 283189 Tablet(s) PO TA KE ONE TABLET BY MOUTH EVERY DAY. NEED FASTING LABS 09/18/2012 01/10/2013 Inactive Toprol XL 200 mg tablet,extended release RxNorm: 248107 Tablet(s) PO TAKE ONE TABLET BY MOUTH EVERY DAY 09/08/2012 10/01/2013 Inactive warfarin 5 mg tablet RxNorm: 414866 1 Tablet(s) PO QD 08/31/201210/19 Inactive pravastatin 40 mg tablet RxNorm: 389187 1 Tablet(s) PO QD Needs fasting labs 08/18/2012 09/16/2012 Inactive TAKE ONE TABLET BY M OUTH EVERY DAY warfarin 1 mg tablet RxNorm: 716793 1 Tablet(s) PO As directed on Mon and Thurs 08/11/2012 12/13/2012 Inactive spironolactone 25 mg tablet RxNorm: 834943 1 Tablet(s) PO QAM 07/1110/08/2012 Inactive warfarin 5 mg tablet RxNorm: 586269 1 Tablet(s) PO QD 07/03/201208/19 Inactive Diflucan 100 mg tablet RxNorm: 755394 1 Tablet(s) PO QD 05/04/2012 Inactive Cipro 500 mg tablet RxNorm: 169900 1 Tablet(s) PO BID 05/04/201204/22 Inactive Aciphex 20 mg tablet,delayed release RxNorm: 652128 1 Tablet(s) PO QD 05/04/2012 07/02/2012 Inactive Omeprazole and Pepci d have not helped. warfarin 5 mg tablet RxNorm: 054203 1 Tablet(s) PO QD 05/02/201206/19 Inactive warfarin 5 mg tablet RxNorm: 345065 1 Tablet(s) PO QD 03/02/201204/21 Inactive Toprol XL 200 mg tablet,extended release RxNorm: 950835 1 Table t(s) PO QD 03/02/2012 05/30/2012 Inactive spironolactone 25 mg tablet RxNorm: 759030 1 Tablet(s) PO QAM 02/0707/11/2012 Inactive pravastatin 40 mg tablet RxNorm: 363013 Tablet(s) PO 01/31/201208/17 Inactive TAKE ONE TABLET BY MOUTH EVERY DAY pravastatin 40 mg tablet RxNorm: 891675 1 Tablet(s) PO QD 01/31/2012 08/18/2012 Inactive omeprazole 40 mg capsule,delayed release RxNorm: 631502 1 Capsule(s) PO QD for stomach 01/11/2012 11/02/2012 Inactive for stomach warfarin 5 mg tablet RxNorm: 465907 1 Tablet(s) PO QD 01/03/201202/18 Inactive warfarin 5 mg tablet RxNorm: 026987 1 Tablet(s) PO QD 12/03/201112/19 Inactive pravastatin 40 mg tablet RxNorm: 086949 1 Tablet(s) PO QD 11/25/2011 01/23/2012 Inactive cefdinir 300 mg Cap RxNorm: 793120 1 Capsule(s) PO BID 10/11/201103/2011 Inactive Culturelle 10 billion cell Cap RxNorm: 632002 1 Capsule(s) PO BID 0 10/11/2011 11/09/2011 Inactive Diflucan 100 mg Tab RxNorm: 663637 1 Tablet(s) PO QD 10/11/201110/19 Inactive Wellbutrin XL 300 mg 24 hr tablet, extended release RxNorm: 551443 1 Tablet(s) PO QD 09/14/2011 10/17/2012 Inactive pravastatin 40 mg tablet RxNorm: 534558 1 Tablet(s) PO QD 08/25/2011 11/25/2011 Inactive Coumadin 5 mg tablet RxNorm: 233600 Tablet(s) PO Take as direct ed by doctor. 07/07/2011 12/03/2011 Inactive Singulair 10 mg Tab RxNorm: 889684 1 Tablet(s) PO QD al lergy medication. (Please try to be consistent in dosing) 06/23/2011 01/15/2014 Inactive Diflucan 100 mg Tab RxNorm: 205753 1 Tablet(s) PO QD 06/14/201107/02 Inactive cefdinir 300 mg Cap RxNorm: 688008 1 Capsule(s) PO BID 06/14/201106/2011 Inactive pravastatin 40 mg Tab RxNorm: 020856 1 Tablet(s) PO QD 05/25/201108/2011 Inactive warfarin 5 mg Tab RxNorm: 217771 Tablet(s) PO 05/25/2011 10/18/2011 In active TAKE ONE TABLET BY MOUTH EVERY DAY Toprol XL 200 mg tablet,extended release RxNorm: 815973 1 Table t(s) PO QD 03/05/2011 06/02/2011 Inactive spironolactone 25 mg tablet RxNorm: 793418 1 Tablet(s) PO QAM 02/2402/08/2012 Inactive omeprazole 40 mg capsule,delayed release RxNorm: 175800 1 Capsule(s) PO QD for stomach 01/06/2011 01/11/2012 Inactive for stomach warfarin 5 mg Tab RxNorm: 906721 1 Tablet(s) PO QD 12/17/2010 011 Inactive warfarin 5 mg Tab RxNorm: 039633 1 Tablet(s) PO QD 11/18/2010 011 Inactive spironolactone 25 mg Tab RxNorm: 550924 1 Tablet(s) PO QAM 11/13/19 11 02/24/2011 Inactive Coumadin 6 mg Tab RxNorm: 140099 1 Tablet(s) PO QD 10/28/2010 011 Inactive May have generic hydrochlorothiazide 25 mg Tab RxNorm: 107104 1 Tablet(s) PO QAM 11/11/2010 Inactive Wellbutrin XL 300 mg 24 hr Tab RxNorm: 211366 1 Tablet(s) PO QD 09/14/2011 Inactive Septra DS 800 mg-160 mg Tab RxNorm: 958558 1 Tablet(s) PO BID 06/0806/17/2010 Inactive Pyridium 100 mg Tab RxNorm: 3687093 1 Tablet(s) PO TID 06/08/2010 Inactive Wellbutrin XL 300 mg 24 hr Tab RxNorm: 470467 1 Tablet(s) PO QD 05/201007/15/2010 Inactive hydroxyzine 25 mg Tab RxNorm: 616889 1 Tablet(s) PO QID prn itching--take routinely at bedtime. (pt. may not refil at this time but later) 05/20/2010 10/10/2011 Inactive Zyrtec 10 mg Tab RxNorm: 9640175 1 Tablet(s) PO BID 05/20/20102010 Inactive Coumadin 1 mg Tab RxNorm: 749073 1 Tablet(s) PO 6mg M-F, 7mg S-S 11/16/2010 Inactive hydroxyzine 25 mg Tab RxNorm: 407151 1 Tablet(s) PO QID prn itching--take routinely at bedtime 04/30/2010 05/19/2010 Inactive Toprol XL 200 mg 24 hr Tab RxNorm: 167618 1 Tablet(s) PO QD 011 06/23/2010 Inactive lisinopril-hydrochlorothiazide 10 mg-12.5 mg Tab RxNorm: 197 885 1 Tablet(s) PO QD 04/20/2010 04/29/2010 Inactive omeprazole 40 mg Cap, Delayed Release RxNorm: 616787 1 Capsule(s) PO QD for stomach 04/20/2010 08/17/2010 Inactive lisinopril-hydrochlorothiazide 10 mg-12.5 mg Tab RxNorm: 197 885 Tablet(s) PO 1QDAM - TAKE ONE TABLET BY MOUTH EVERY DAY IN THE MORNING 03/09/2010 Inactive lisinopril-hydrochlorothiazide 10 mg-12.5 mg Tab RxNorm: 197 885 1 Tablet(s) PO QD 02/27/2010 04/20/2010 Inactive Wellbutrin XL 300 mg 24 hr Tab RxNorm: 203742 1 Tablet(s) PO QD 05/21/2010 Inactive lisinopril-hydrochlorothiazide 10 mg-12.5 mg Tab RxNorm: 197 885 1 Tablet(s) PO QD 01/28/2010 02/26/2010 Inactive omeprazole 40 mg Cap, Delayed Release RxNorm: 922997 1 Capsule(s) PO QD for stomach 01/22/2010 04/20/2010 Inactive Altace 10 mg Cap RxNorm: 116967 1 Capsule(s) PO QD for BP 01/22/2010 03/22/2010 Inactive Coumadin 6 mg Tab RxNorm: 491581 1 Tablet(s) PO QD May have generic 12/03/2009 05/01/2010 Inactive Coumadin 6 mg Tab RxNorm: 816364 1 Tablet(s) PO 12/01/2009 12/02/2009 Inactive Coumadin 1 mg Tab RxNorm: 802831 1 Tablet(s) PO QD 11/28/2009 010 Inactive Coumadin 1 mg Tab RxNorm: 665190 1 Tablet(s) PO QD 07/02/2009 010 Inactive Flexeril 10 mg tablet RxNorm: 940355 1 Tablet(s) PO TID No Start Date Active spironolactone 25 mg tablet RxNorm: 566491 1 Tablet(s) PO QAM No Star t Date Active lisinopril-hydrochlorothiazide 20 mg-12.5 mg Tab RxNorm: 197 886 2 Tablet(s) PO QAM No Start Date 10/12/2010 Inactive Zofran ODT 4 mg disintegrating tablet RxNorm: 325550 1 Tablet(s) PO Q6H as needed for nausea No Start Date 09/14/2016 Inactive Wellbutrin XL 300 mg 24 hr Tab RxNorm: 776389 1 Tablet(s) PO QD No Start Date 02/02/2010 Inactive alprazolam 0.25 mg tablet RxNorm: 305141 1 Tablet(s) PO prior t o flight No Start Date 05/24/2017 Inactive hydrocodone-acetaminophen 5 mg-500 mg Tab RxNorm: 146786 1-2 Tablet(s) PO Q4H as needed for pain No Start Date 12/02/2010 Inactive Toprol XL 100 mg 24 hr Tab RxNorm: 902630 1 Tablet(s) PO QD No Star t Date 10/14/2013 Inactive Celebrex 200 mg capsule RxNorm: 516838 1 Capsule(s) PO QD No Start Date 05/22/2017 Inactive scopolamine 1 mg over 3 days transdermal patch RxNorm: 27957 2 1 TD take off in 72 hours. No Start Date 07/31/2017 Inactive OneTouch Ultra Test strips RxNorm: Test blood sugar daily No S tart Date 04/23/2018 Inactive Medrol (Dale) 4 mg tablets in a dose pack RxNorm: 056241 Tablet(s) PO As directed No Start Date 01/15/2014 Inactive Coumadin 5 mg Tab RxNorm: 839110 1 Tablet(s) PO QD No Start Date 06/19 Inactive Pepcid 40 mg Tab RxNorm: 611225 1 Tablet(s) PO QD No Start Date 06/23 Inactive prednisone 10 mg Tab RxNorm: 853336 1 Tablet(s) PO BID No Start Date 06/23/2010 Inactive spironolactone 25 mg tablet RxNorm: 283824 1 Tablet(s) PO QAM No St art Date 09/26/2018 Inactive scopolamine 1.5 mg 72 hr Transderm Patch RxNorm: 925341 TD Apply 1 patch behind ear every 72 hours, replace after 3 days. No Start Date 11/07/2012 Inacti ve azithromycin 250 mg Tab RxNorm: 825292 Tablet(s) PO 2 t abs on day one and one tab on days 2-5. (antibiotic) No Start Date 10/10/2011 Inactive Medrol (Dale) 4 mg Tabs in a Dose Pack RxNorm: 434807 1 Tablet(s) PO as directed. (steroid pack) No Start Date 10/10/2011 Inactive Lovenox 40 mg/0.4 mL subcutaneous syringe RxNorm: 795186 40 Mil ligram(s) SQ QD No Start Date 05/04/2018 Inactive Celebrex 200 mg capsule RxNorm: 024566 1 Capsule(s) PO BID as n eeded for pain No Start Date 01/13/2017 Inactive warfarin 1 mg tablet RxNorm: 325666 1 Tablet(s) PO As directed on Tue and No Start Date 08/10/2012 Inactive cefuroxime axetil 500 mg Tab RxNorm: 410316 1 Tablet(s) PO BID No S tart Date 06/13/2011 Inactive Lovenox 40 mg/0.4 mL subcutaneous syringe RxNorm: 109906 40 Mil ligram(s) SQ QD No Start Date 01/26/2018 Inactive Coumadin 5 mg tablet RxNorm: 746442 1 Tablet(s) PO QD No Start Date 0 08/13/2013 Inactive Medrol (Dale) 4 mg tablets in a dose pack RxNorm: 174034 Tablet(s) PO as directed No Start Date 01/17/2014 Inactive Coumadin 6 mg tablet RxNorm: 657627 1 Tablet(s) PO QD No Start Date 0 06/20/2016 Inactive warfarin 5 mg tablet RxNorm: 541332 1 Tablet(s) PO QD No Start Date 0 12/02/2011 Inactive Medrol (Dale) 4 mg Tabs in a Dose Pack RxNorm: 434208 Tablet(s) PO as directed No Start Date 06/23/2010 Inactive Flonase 50 mcg/actuation nasal spray,suspension RxNorm: 8963 23 2 [place] NASAL BID No Start Date 12/05/2014 Inactive Pepcid 20 mg tablet RxNorm: 276345 1 Tablet(s) PO BID as needed No Start Date 11/02/2012 Inactive Medication Administered No Medication Administered data Immunizations No Immunization data Results Observation Observation Code Item Item Code Result Date S ervice Location MICROALBUMIN URINE RANDOM 02663 CREAT MG/D 139 MG/DL Unknown MICROALBUMIN URINE RANDOM 16415 CRE/100 1.39 G/L 12/20 Unknown Procedures Procedure Codes Date URINALYSIS NONAUTO W/O SCOPE CPT-4: 37126 09/27/2018 URINE CULTURE/ COLONY COUNT CPT-4: 41963 09/27/2018 URINALYSIS NONAUTO W/O SCOPE CPT-4: 35743 10/13/2017 URINE CULTURE/ COLONY COUNT CPT-4: 52232 10/13/2017 STREP A ASSAY W/OPTIC CPT-4: 75252 06/21/2016 STREP A ASSAY W/OPTIC CPT-4: 13202 06/24/2014 THER/PROPH/DIAG INJ SC/IM CPT-4: 35750 03/22/2014 METHYLPREDNISOLONE 40 MG INJ CPT-4: J1030 03/22/2014 TRIAMCINOLONE ACET INJ NOS CPT-4: J3301 03/22/2014 URINALYSIS NONAUTO W/O SCOPE CPT-4: 57964 10/19/2013 URINE CULTURE/ COLONY COUNT CPT-4: 55454 10/19/2013 CEFTRIAXONE SODIUM INJECTION CPT-4: J0696 03/02/2013 THER/PROPH/DIAG INJ SC/IM CPT-4: 65653 03/02/2013 CEFTRIAXONE SODIUM INJECTION CPT-4: J0696 03/01/2013 THER/PROPH/DIAG INJ SC/IM CPT-4: 98507 03/01/2013 THER/PROPH/DIAG INJ SC/IM CPT-4: 59780 03/01/2013 METHYLPREDNISOLONE 40 MG INJ CPT-4: J1030 03/01/2013 TRIAMCINOLONE ACET INJ NOS CPT-4: J3301 03/01/2013 MICROALBUMIN QUANTITATIVE CPT-4: 67665 01/11/2013 URINE CULTURE/ COLONY COUNT CPT-4: 61407 05/04/2012 URINALYSIS NONAUTO W/O SCOPE CPT-4: 63354 05/04/2012 URINE CULTURE/ COLONY COUNT CPT-4: 52027 05/29/2010 TRIAMCINOLONE ACET INJ NOS CPT-4: J3301 05/20/2010 METHYLPREDNISOLONE 40 MG INJ CPT-4: J1030 05/20/2010 THER/PROPH/DIAG INJ SC/IM CPT-4: 12804 05/20/2010 Vital Signs Date Vital 09/27/2018 Blood Pressure 1: 136/82 Code: 8480-6 Heart Rate 1: 68 bpm Respiratory Rate: 20 bpm SpO2: 96% Temperature: 36.6 (C) / 97.9 (F) We ight: 244 lbs 04/24/2018 Blood Pressure 1: 134/78 Code: 8480-6 BMI: 35.1 Code: 50736-2 Heart Rate 1: 76 bpm Height: 5'9" Respiratory Rate: 20 bpm Temperature: 36 .6 (C) / 97.8 (F) Weight: 238 lbs 12/27/2017 Blood Pressure 1: 126/64 Code: 8480-6 BMI: 34.7 Code: 60257-5 Heart Rate 1: 72 bpm Height: 5'9" Respiratory Rate: 20 bpm Temperature: 36 .8 (C) / 98.2 (F) Weight: 235 lbs 10/12/2017 Blood Pressure 1: 142/80 Code: 8480-6 BMI: 35.1 Code: 56981-3 Heart Rate 1: 98 bpm Height: 5'9" Respiratory Rate: 22 bpm SpO2: 100% Tempera ture: 36.5 (C) / 97.7 (F) Weight: 238 lbs 09/16/2017 Blood Pressure 1: 136/82 Code: 8480-6 BMI: 34.1 Code: 93032-0 Heart Rate 1: 82 bpm Height: 5'9" Respiratory Rate: 18 bpm SpO2: 96% Tempera ture: 36.3 (C) / 97.3 (F) Weight: 231 lbs 05/25/2017 Blood Pressure 1: 122/82 Code: 8480-6 BMI: 32.3 Code: 20810-7 Heart Rate 1: 116 bpm Height: 5'9" Respiratory Rate: 20 bpm SpO2: 98% Tempera ture: 35.6 (C) / 96.1 (F) Weight: 219 lbs 01/03/2017 Blood Pressure 1: 126/78 Code: 8480-6 BMI: 33.4 Code: 86701-0 Heart Rate 1: 72 bpm Height: 5'9" Respiratory Rate: 20 bpm Temperature: 36 .8 (C) / 98.2 (F) Weight: 226 lbs 09/23/2016 Blood Pressure 1: 126/82 Code: 8480-6 BMI: 33.8 Code: 47716-0 Heart Rate 1: 80 bpm Height: 5'9" Respiratory Rate: 20 bpm SpO2: 97% Tempera ture: 36.8 (C) / 98.2 (F) Weight: 229 lbs 09/03/2016 Blood Pressure 1: 188/64 Code: 8480-6 Bl ood Pressure 2: 166/92 Code: 8480-6 BMI: 34.4 Code: 91610-0 Heart Rate 1: 66 bpm Height: 5'9" Res piratory Rate: 20 bpm SpO2: 98% Temperature: 35.7 (C) / 96.2 (F) Weight: 233 lbs 07/08/2016 Blood Pressure 1: 134/82 Code: 8480-6 Heart Rate 1: 64 bpm Height: 5'9" Respiratory Rate: 20 bpm SpO2: 97% Temperature: 36.6 (C) / 97.8 (F) Weight: 06/21/2016 Blood Pressure 1: 112/68 Code: 8480-6 BMI: 33.8 Code: 12088-0 Heart Rate 1: 64 bpm Height: 5'9" Respiratory Rate: 20 bpm SpO2: 95% Tempera ture: 36.3 (C) / 97.3 (F) Weight: 229 lbs 02/23/2016 Blood Pressure 1: 128/78 Code: 8480-6 BMI: 33.4 Code: 03345-7 Heart Rate 1: 74 bpm Height: 5'9" [...] 1: 122/80 Code: 8480-6 BMI: 32.2 Code: 84550-0 Heart Rate 1: 80 bpm Height: 5'9" Respiratory Rate: 20 bpm Temperature: 37 .0 (C) / 98.6 (F) Weight: 218 lbs 08/09/2014 Blood Pressure 1: 132/84 Code: 8480-6 BMI: 33.1 Code: 17958-6 Heart Rate 1: 72 bpm Height: 5'9" Respiratory Rate: 20 bpm Temperature: 36 .7 (C) / 98.0 (F) Weight: 224 lbs 06/24/2014 Blood Pressure 1: 132/80 Code: 8480-6 BMI: 32.8 Code: 19881-7 Heart Rate 1: 68 bpm Height: 5'9" Respiratory Rate: 20 bpm Temperature: 36 .4 (C) / 97.6 (F) Weight: 222 lbs 03/22/2014 Blood Pressure 1: 128/84 Code: 8480-6 BMI: 32.5 Code: 18832-9 Heart Rate 1: 78 bpm Height: 5'9" Respiratory Rate: 22 bpm Temperature: 36 .0 (C) / 96.8 (F) Weight: 220 lbs 03/05/2014 Blood Pressure 1: 124/78 Code: 8480-6 BMI: 31.9 Code: 85697-4 Heart Rate 1: 82 bpm Height: 5'9" Respiratory Rate: 20 bpm Temperature: 35 .8 (C) / 96.4 (F) Weight: 216 lbs 01/16/2014 Blood Pressure 1: 116/68 Code: 8480-6 BMI: 33.8 Code: 88977-4 Heart Rate 1: 72 bpm Height: 5'7" Respiratory Rate: 20 bpm Temperature: 36 .6 (C) / 97.9 (F) Weight: 216 lbs 05/10/2013 Blood Pressure 1: 124/86 Code: 8480-6 BMI: 34.3 Code: 44721-3 Heart Rate 1: 84 bpm Height: 5'7" [...] 1: 116/84 Code: 8480-6 BMI: 33.1 Code: 05711-9 Heart Rate 1: 64 bpm Height: 5'9" Respiratory Rate: 20 bpm Temperature: 36 .4 (C) / 97.6 (F) Weight: 224 lbs 01/11/2013 Blood Pressure 1: 126/84 Code: 8480-6 BMI: 35.3 Code: 36124-9 Heart Rate 1: 68 bpm Height: 5'9" Respiratory Rate: 20 bpm Temperature: 36 .7 (C) / 98.1 (F) Weight: 239 lbs 11/03/2012 Blood Pressure 1: 104/70 Code: 8480-6 BMI: 34.4 Code: 73374-8 Heart Rate 1: 72 bpm Height: 5'9" Respiratory Rate: 20 bpm Temperature: 36 .8 (C) / 98.3 (F) Weight: 233 lbs 05/04/2012 Blood Pressure 1: 124/74 Code: 8480-6 BMI: 33.7 Code: 84189-5 Heart Rate 1: 84 bpm Height: 5'9" Temperature: 36.3 (C) / 97.3 (F) Weight: 228 lbs 10/11/2011 Blood Pressure 1: 110/70 Code: 8480-6 BMI: 33.7 Code: 73127-1 Heart Rate 1: 64 bpm Height: 5'9" Temperature: 36.8 (C) / 98.3 (F) Weight: 228 lbs 06/23/2011 Blood Pressure 1: 114/70 Code: 8480-6 BMI: 33.4 Code: 76090-4 Heart Rate 1: 80 bpm Height: 5'9" Respiratory Rate: 20 bpm Temperature: 36 .7 (C) / 98.0 (F) Weight: 226 lbs 06/14/2011 Blood Pressure 1: 118/74 Code: 8480-6 BMI: 33.4 Code: 83985-6 Heart Rate 1: 80 bpm Height: 5'9" [...] 1: 126/82 Code: 8480-6 BMI: 32.6 Code: 70327-2 Heart Rate 1: 68 bpm Height: 5'9" [...] 1: 140/92 Code: 8480-6 BMI: 31.3 Code: 59716-9 Heart Rate 1: 60 bpm Height: 5'10" Temperature: 36.7 (C) / 98.0 (F) Weight: 218 lbs Functional Status No Functional Status data Reason For Visit Reason For Visit Effective Dates Notes gastroesophageal reflux 09/27/2018 follow up 04/24/2018 Patient [...] upper back on 08/13/16 while camping around [place], [place]. Patient states is tender around tick [...] 01/22/2010 Encounters Encounter Performer Location Codes Date ([id number]) OFFICE/OUTPATIENT VISIT EST Diagnosis: Gastro-esophageal reflux disease without esophagitis[ICD10: K21.9] Diagnosis: Urinary tract infection, site not specified[ICD10: N39.0] Diagnosis: Ventral hernia without obstruction or gangrene[ICD10: K43.9] Jessica VO DomingaLloyd MARLEN [place] CPT-4: 48197 09/27/2018 ([id number]) OFFICE/OUTPATIENT VISIT EST Diagnosis: Essential (primary) hypertension[ICD10: I10] Diagnosis: Type 2 diabetes mellitus without complications[ICD10: E11.9] Diagnosis: Carpal tunnel syndrome, right upper limb[ICD10: G56.01] Diagnosis: Primary insomnia[ICD10: F51.01] Jessica VO DomingaLloyd [employer] CPT-4: 03929 04/24/2018 ([id number]) OFFICE/OUTPATIENT VISIT EST Diagnosis: Type 2 diabetes mellitus without complications[ICD10: E11.9] Diagnosis: Mixed hyperlipidemia[ICD10: E78.2] Diagnosis: Essential (primary) hypertension[ICD10: I10] Diagnosis: Pain in unspecified joint[ICD10: M25.50] Jessica VO SLloyd MAR[facility] [place] CPT-4: 11427 12/27/2017 ([id number]) NURSE/OUTPATIENT VISIT EST Diagnosis: Hematuria, unspecified[ICD10: R31.9] Jessica OBRIEN SLloyd MICHAELNDER [place] CPT-4: 43079 10/13/2017 ([id number]) OFFICE/OUTPATIENT VISIT EST Diagnosis: Pleurodynia[ICD10: R07.81] Sofi Anderson OR JUSTEN [place] CPT-4: 63813 10/12/2017 ([id number]) OFFICE/OUTPATIENT VISIT EST Diagnosis: Acute bronchitis, unspecified[ICD10: J20.9] Sofi GEE DO [facility] CPT-4: 45991 09/16/2017 ([id number]) OFFICE/OUTPATIENT VISIT EST Diagnosis: Other specified postprocedural states[ICD10: Z98.890] Diagnosis: Cellulitis of neck[ICD10: L03.221] Diagnosis: Tachycardia, unspecified[ICD10: R00.0] Jessica GEE [facility] CPT-4: 75224 05/25/2017 ([id number]) OFFICE/OUTPATIENT VISIT EST Diagnosis: Lumbago with sciatica, right side[ICD10: M54.41] Diagnosis: Pain in unspecified joint[ICD10: M25.50] Jessica GEE [facility] CPT-4: 07966 01/03/2017 ([id number]) OFFICE/OUTPATIENT VISIT EST Diagnosis: Bitten or stung by nonvenomous insect and other nonvenomous arthropods, subsequent encounter[ICD10: W57.XXXD] Diagnosis: Essential (primary) hypertension[ICD10: I10] Diagnosis: Low back pain[ICD10: M54.5] Jessica CARBAJAL [facility] CPT-4: 33047 09/23/2016 OFFICE/OUTPATIENT VISIT EST Diagnosis: Bitten or stung by nonvenomous insect and other nonvenomous arthropods, initial encounter[ICD10: W57.XXXA] Diagnosis: Essential (primary) hypertension[ICD10: I10] Kaitlynn Mosley JESSICA GEE [facility] CPT-4: 95106 09/03/2016 ([id number]) OFFICE/OUTPATIENT VISIT EST Diagnosis: Low back pain[ICD10: M54.5] Diagnosis: Radiculopathy, lumbosacral region[ICD10: M54.17] Jessica GEE [facility] CPT-4: 06045 07/08/2016 ([id number]) OFFICE/OUTPATIENT VISIT EST Diagnosis: Acute pharyngitis, unspecified[ICD10: J02.9] Jessica GEE [facility] CPT-4: 75464 06/21/2016 ([id number]) OFFICE/OUTPATIENT VISIT EST Diagnosis: Cough[ICD10: R05] Diagnosis: Fever, unspecified[ICD10: R50.9] Janiya GEE [facility] CPT-4: 03221 02/23/2016 ([id number]) OFFICE/OUTPATIENT VISIT EST Diagnosis: Acute sinusitis, unspecified[ICD10: J01.90] Jessica Marlen GEE [facility] CPT-4: 06743 02/16/2016 OFFICE/OUTPATIENT VISIT EST Diagnosis: Type 2 diabetes mellitus without complications[ICD10: E11.9] Diagnosis: Gastro-esophageal reflux disease without esophagitis[ICD10: K21.9] Diagnosis: Ventral hernia without obstruction or gangrene[ICD10: K43.9] Suki GEE [facility] CPT-4: 90270 02/11/2015 OFFICE/OUTPATIENT VISIT EST 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] Diagnosis: Essential (primary) hypertension[ICD10: I10] Suki GEE [facility] CPT-4: 03457 01/28/2015 OFFICE/OUTPATIENT VISIT EST Diagnosis: SINUSITIS, ACUTE[ICD9: 461.9] Kaitlynn Mosley [facility]ICA [facility]: 54195 12/06/2014 ([id number]) OFFICE/OUTPATIENT VISIT EST Diagnosis: SINUSITIS, ACUTE[ICD9: 461.9] Kaitlynn MENDENHALLQUELINE [facility] CPT-4: 96929 08/09/2014 ([id number]) OFFICE/OUTPATIENT VISIT EST Diagnosis: TONSILLITIS, ACUTE[ICD9: 463] Suki GEE [facility] CPT-4: 49874 06/24/2014 OFFICE/OUTPATIENT VISIT EST Diagnosis: SINUSITIS, ACUTE[ICD9: 461.9] Diagnosis: EUSTACHIAN TUBE DYSFUNCTION[ICD9: 381.81] Diagnosis: COUGH[ICD9: 786.2] Suki GEE [facility] CPT-4: 89159 03/22/2014 OFFICE/OUTPATIENT VISIT EST Diagnosis: Elbow pain, right[ICD9: 719.42] Suki GEE DO [facility] CPT-4: 90255 03/05/2014 OFFICE/OUTPATIENT VISIT EST Diagnosis: SINUSITIS, ACUTE[ICD9: 461.9] Jessica GEE DO [facility] CPT-4: 65979 01/16/2014 ([id number]) OFFICE/OUTPATIENT VISIT EST Diagnosis: GROSS HEMATURIA[ICD9: 599.71] Jessica GEE DO [facility] CPT-4: 86035 10/19/2013 ([id number]) OFFICE/OUTPATIENT VISIT EST Diagnosis: DM W/O COMPLICATION TYPE II[ICD9: 250.00] Diagnosis: HYPERLIPIDEMIA NEC/NOS[ICD9: 272.4] Jessica GEE DO [facility] CPT-4: 29260 05/10/2013 ([id number]) OFFICE/OUTPATIENT VISIT EST Diagnosis: SINUSITIS, ACUTE[ICD9: 461.9] Jessica GEE DO [facility] CPT-4: 49175 04/17/2013 OFFICE/OUTPATIENT VISIT EST Diagnosis: OTITIS MEDIA NOS[ICD9: 382.9] Diagnosis: COUGH[ICD9: 786.2] Suki GEE DO [facility] CPT-4: 89507 03/05/2013 OFFICE/OUTPATIENT VISIT EST Diagnosis: COUGH[ICD9: 786.2] Diagnosis: BRONCHITIS, ACUTE[ICD9: 466.0] Suki GEE DO [facility] CPT-4: 16352 03/02/2013 OFFICE/OUTPATIENT VISIT EST Diagnosis: COUGH[ICD9: 786.2] Diagnosis: OTITIS MEDIA NOS[ICD9: 382.9] Diagnosis: BRONCHITIS, ACUTE[ICD9: 466.0] Suki GEE DO [facility] CPT-4: 60435 03/01/2013 OFFICE/OUTPATIENT VISIT EST Diagnosis: DM W/O COMPLICATION TYPE II, UNCONTROLLED[ICD9: 250.02] Jessica GEE DO [facility] CPT-4: 15264 02/22/2013 ([id number]) PREV VISIT EST AGE 40-64 Diagnosis: DM W/O COMPLICATION TYPE II, UNCONTROLLED[ICD9: 250.02] Diagnosis: HYPERTENSION[ICD9: 401.9] Diagnosis: ROUTINE MEDICAL EXAM[ICD9: V70.0] Jessica Michaelaaronderek ITALIA Lance OrrLloyd [facility] CPT-[facility]: 50595 01/11/2013 OFFICE/OUTPATIENT VISIT EST Diagnosis: HZ (HERPES ZOSTER)[ICD9: 053.9] Kaitlynn Dimitri MENDENHALLQUELINE DomingaLloyd [facility] CPT-4: 15724 11/03/2012 OFFICE/OUTPATIENT VISIT EST Diagnosis: URINARY TRACT INFECTION[ICD9: 599.0] Diagnosis: GERD[ICD9: 530.81] Diagnosis: PHARYNGITIS, ACUTE[ICD9: 462] Jessica Marlen JESSICA DomingaLloyd [facility] CPT-4: 44433 05/04/2012 OFFICE/OUTPATIENT VISIT EST Diagnosis: COUGH[ICD9: 786.2] Diagnosis: SINUSITIS, ACUTE[ICD9: 461.9] Diagnosis: PHARYNGITIS, ACUTE[ICD9: 462] Jessica Marlen JESSICA DomingaLloyd [facility] CPT-[facility]: 30031 10/11/2011 OFFICE/OUTPATIENT VISIT EST Diagnosis: COUGH[ICD9: 786.2] Diagnosis: SINUSITIS, ACUTE[ICD9: 461.9] Diagnosis: PHARYNGITIS, ACUTE[ICD9: 462] Diagnosis: ALLERGIC RHINITIS[ICD9: 477.9] Xiomara VO Dominga Lloyd [facility] CPT-4: 48277 06/23/2011 OFFICE/OUTPATIENT VISIT EST Diagnosis: COUGH[ICD9: 786.2] Diagnosis: SINUSITIS, ACUTE[ICD9: 461.9] Diagnosis: PHARYNGITIS, ACUTE[ICD9: 462] Jessica VO DomingaLloyd [facility] CPT-4: 01385 06/14/2011 OFFICE/OUTPATIENT VISIT EST Diagnosis: SINUSITIS, ACUTE[ICD9: 461.9] Diagnosis: PHARYNGITIS, ACUTE[ICD9: 462] Jessica Michaelcorby VO DomingaLloyd [facility] CPT-4: 36997 12/02/2010 OFFICE/OUTPATIENT VISIT EST Diagnosis: HYPERTENSION[ICD9: 401.9] Diagnosis: HYPERLIPIDEMIA NEC/NOS[ICD9: 272.4] Diagnosis: DERMATITIS NOS[ICD9: 692.9] Jessica Michaelaaronderek [facility] CPT-4: 44206 11/12/2010 OFFICE/OUTPATIENT VISIT EST Jessica Orr. ORE NDER DO [facility] CPT- 4: 57859 10/13/2010 ([id number]) OFFICE/OUTPATIENT VISIT EST Jessica HARKINS UJOANNA S. ORENDER DO [facility] CPT-4: 22327 06/24/2010 ([id number]) OFFICE/OUTPATIENT VISIT EST Jessica HARKINS UELINE S. ORENDER DO [facility] CPT-4: 71320 06/08/2010 ([id number]) OFFICE/OUTPATIENT VISIT EST Xiomara Michael JESSICA S . ORENDER DO [facility] CPT-4: 78426 05/20/2010 ([id number]) OFFICE/OUTPATIENT VISIT EST Jessica HARKINS UJOANNA S. ORENDER DO [facility] CPT-4: 97623 04/30/2010 ([id number]) OFFICE/OUTPATIENT VISIT, EST Jessica MANZANO SLloyd ORENDER DO [facility] CPT-4: 73101 01/22/2010 Plan of Care Planned Activity Notes Codes Status Date Visit Diagnosis Plan: Gastro-esophageal reflux disease without [...] : N39.0 09/27/2018 Appointment: [facility] Gee [facility]el[facility] [phone] [id number] [facility] 09/27/2018 Visit Diagnosis Plan: Carpal [...] : I10 04/24/2018 Appointment: Jessica Gee WPtel: [address] [place] [address] ACUTE ILLNESS 04/24/2018 Patient Education: celecoxib- [employer] [id number] Completed 04/24/2018 Patient Education: amitriptyline- [employer] [id number] Completed 04/24/2018 Visit Diagnosis Plan: Pain in [...] : E11.9 12/27/2017 Appointment: Jessica Gee WPtel: [address] [place], [place] [phone] FOLLOW UP 12/27/2017 Patient Education: Patient Medication Summary Completed 12/27/2017 Patient Education: Patient Medication Summary Completed 12/19/2017 Care Plan: MAMMOGRAM BOTH BREASTS LOINC : 45217-2 Pending 12/19/2017 Patient Education: Patient Medication Summary Completed 12/16/2017 Care Plan: ASSAY THYROID STIM HORMONE Pen ding 12/16/2017 Care Plan: ASSAY OF FREE THYROXINE Pendin g 12/16/2017 Care Plan: LIPID PANEL LOINC : 33146-9 Pending 12/16/2017 Care Plan: CBC Pending 12/16/2017 Care Plan: A1C HPLC LOINC : 77776-6 Pending 12/16/2017 Patient Education: Patient Medication Summary Completed 10/17/2017 Care Plan: CT ANGIOGRAPHY CHEST LOINC : 74570-5 Pending 10/17/2017 Patient Education: Patient Medication Summary Completed 10/14/2017 Care Plan: CT ANGIOGRAPHY CHEST LOINC : 61739-0 Pending 10/14/2017 Appointment: Jessica Gee WPtel: [address] [place] [address] UA 10/13/2017 Patient Education: Patient Medication Summary Completed 10/13/2017 Visit Diagnosis Plan: Pleurodynia Discussion: patient sent for stat cxray. medrol dose pack prescribed for symptom management. instructed to perform deep breathing exercises at home to prevent atelectasis or pneumonia. will notify pa tient of results of xray and order additional tests/medications as needed. ICD-9 : 786.50 ICD-10 : R07.81 10/12/2017 Appointment: Sofi Gresham [address] [place] [address] ACUTE ILLNESS 10/12/2017 Patient Education: Patient Medication [...] ICD-10 : J20.9 09/16/2017 Appointment: Sofi Gresham [address] [place] [address] ACUTE ILLNESS 09/16/2017 Patient Education: Patient Medication Summary Completed 09/16/2017 Appointment: Jessica Gee WPtel: [facility] [address] CANCELED 08/10/2017 Visit Diagnosis Plan: Tachycardia, unspecified [...] : Z98.890 05/25/2017 Appointment: Jessica Gee WPtel: [address] [place], [place] [id number] FOLLOW UP 05/25/2017 Patient Education: Patient Medication Summary Completed 05/25/2017 Visit Diagnosis Plan: Lumbago with sciatica, right britton e Discussion: Check arthritis panel Patient awaiting neck surgery before surgery will consider back surgery ICD-9 : 724.2 ICD-10 : M54.41 01/03/2017 Appointment: Jessica Gee WPtel: [address] [place], [place] [phone] ACUTE ILLNESS 01/03/2017 Patient Education: Patient Medication Summary Completed 01/03/2017 Patient Education: Patient Medication Summary Completed 12/16/2016 Care Plan: MAMMOGRAM SCREENING LOINC : 2 6347-5 Pending 12/16/2016 Patient Education: Patient Medication Summary Completed 10/07/2016 Care Plan: MRI LUMBAR SPINE W/O & W/DYE LOINC : 05253-7 Pending 10/07/2016 Visit Diagnosis Plan: Bitten or [...] : I10 09/23/2016 Appointment: Jessica Gee WPtel: [address] [place], [place] [phone] 09/22 confirmed WORK IN 09/23/2016 Patient Education: Patient Medication Summary Completed 09/23/2016 Visit Plan: Tick panel at [facility] Increa se spironolactone to 2 po am (New Rx sent) Take B/P at home/work and also come to office next week for recheck Will await lab results before starting any antibiotic 09/03/2016 Appointment: Kaitlynn Mosley WPtel: [address] [place] [address] ACUTE ILLNESS 09/03/2016 Patient Education: Patient Medication Summary Completed 09/03/2016 Visit Diagnosis Plan: Low back pain Discussion: Celebr ex BID PT Continue stretches at home L/S xray Follow Up: 1 months ICD-9 : 724.2 ICD-10 : M54.5 07/08/2016 Appointment: Jessica Gee WPtel: [address] [place] [address] ACUTE ILLNESS 07/08/2016 Patient Education: Patient Medication Summary Completed 07/08/2016 Care Plan: X-RAY EXAM L-S SPINE 2/3 VWS LOINC : 74873-4 Pending 07/08/2016 Visit Plan: Supportive care. Rest, Fluid s, Tylenol/Motrin prn fever or bodyaches. Notify if worsening symptoms.New toothebrush in 5 days 06/21/2016 Visit Diagnosis Plan: Acute pharyngitis, unspecified D iscussion: Strep Negative Supportive Care May use zyrtec 10mg q HS ICD-9 : 462 ICD-10 : J02.9 06/21/2016 Visit NOS Plan: Plan Notes: Supportive care. Rest, Fluids... 06/21/2016 Appointment: Jessica Gee WPtel: [address] [place] [address] ACUTE ILLNESS 06/21/2016 Patient Education: Patient Medication Summary Completed 06/21/2016 Visit Plan: No pulseox last week to comp are to today, but she does sound diminished today Studies as above ordered Continue cefdinir until results received Increase albuterol treatments to q4-6hrs PRN Continue supportive care 02/23/2016 Appointment: Janiya Gregorio [address] ACUTE ILLNESS 02/23/2016 Patient Education: Patient Medication Summary Completed 02/23/2016 Care Plan: CHEST X-RAY 2VW FRONTAL&LATL LOINC : 53301-0 Pending 02/23/2016 Visit Plan: Saline nasal flushes prn. Ty lenol/Motrin prn headache. Notify if persists/symptoms worsening. 02/16/2016 Appointment: Jessica Gee WPtel: [address] [place] [address] ACUTE ILLNESS 02/16/2016 Patient Education: Patient Medication Summary Completed 02/16/2016 Visit Plan: Discussed labs Continue Topr ol at 200 mg PO daily Increase Aciphex to BID Notify if increase of Aciphex does not give relief. Repeat PT/INR in 2 weeks. 02/11/2015 Appointment: Suki Barahona WPtel: [address] [place] [address] 02/10 confirmed ~sl FOLLOW UP 02/11/2015 Patient Education: Patient Medication Summary Completed 02/11/2015 Patient Education: Patient Medication Summary Completed 02/06/2015 Care Plan: POC PROTIME/INR LOINC : 17863 -6 Pending 02/06/2015 Visit Plan: Increase Toprol XL 200 mg to one full tablet daily (is currently taking only 1/2 tablet) To for EKG today Monitor daily BP Notify of any changes- increased numbness, weakness, headache etc. 01/28/2015 Appointment: Suki Barahona WPtel: [address] [place] [address] ACUTE ILLNESS 01/28/2015 Patient Education: Patient Medication Summary Completed 01/28/2015 Visit Plan: ERx Amoxicillin and Flonase Nasal saline, humidified air Facial heat or cold packs for comfort Increase fluids/rest Discussed s/s of worsening, go to over weekend if these occur. 12/06/2014 Appointment: Kaitlynn Mosley WPtel: [address] [place] [address] ACUTE ILLNESS 12/06/2014 Patient Education: Patient Medication Summary Completed 12/06/2014 Appointment: Kaitlynn Mosley WPtel: [address] [place] [address] ACUTE ILLNESS 08/09/2014 Patient Education: Patient Medication Summary Completed 08/09/2014 Appointment: Suki Barahona WPtel: [address] [place] [address] ACUTE ILLNESS 06/24/2014 Patient Education: Patient Medication Summary Completed 06/24/2014 Appointment: Suki Barahona WPtel: [address] [place] [address] ACUTE ILLNESS 03/22/2014 Patient Education: Patient Medication Summary Completed 03/22/2014 Patient Education: [employer] - Antibi otics, Analgesics 18+, Oral Contraceptives F 18+ Completed 03/22/2014 Appointment: Suki Barahona WPtel: [address] [place] [address] FOLLOW UP 03/05/2014 Patient Education: Patient Medication Summary Completed 03/05/2014 Visit Plan: Saline nasal flushes prn. Ty lenol/Motrin prn headache. Notify if persists/symptoms worsening. Restart flonase 01/16/2014 Appointment: Jessica Gee WPtel: [address] [place] [address] ACUTE ILLNESS 01/16/2014 Patient Education: Patient Medication Summary Completed 01/16/2014 Appointment: Jessica Gee WPtel: [address] [place] [address] 10/19/2013 Patient Education: Patient Medication Summary Completed 10/19/2013 Appointment: Jessica Gee WPtel: [address] [place], [place] [phone] 08/08 patient canceled appt and said will call back to [facility]ela [facility] FOLLOW UP 08/09/2013 Visit Plan: Increase Coumadin to 6mg M-F and stay on 5mg Sat, Sun Add lipids to labs Check PT/INR in 3wks Continue metfromin at current dose and accuchecks 05/10/2013 Appointment: Jessica Gee WPtel: [address] [place], [place] [phone] 05/09 FOLLOW UP 05/10/2013 Patient Education: Patient Medication Summary Completed 05/10/2013 Visit Plan: Saline nasal flushes prn. Ty lenol/Motrin prn headache. Notify if persists/symptoms worsening. 04/17/2013 Appointment: Jessica Gee WPtel: [address] [place] [address] ACUTE ILLNESS 04/17/2013 Patient Education: Patient Medication Summary Completed 04/17/2013 Appointment: Suki Barahona WPtel: [address] [place], [place] [id number] FOLLOW UP 03/05/2013 Patient Education: Patient Medication Summary Completed 03/05/2013 Appointment: Suki Barahona WPtel: [address] [place], [place] [phone] FOLLOW UP 03/02/2013 Patient Education: Patient Medication Summary Completed 03/02/2013 Appointment: Suki Barahona WPtel: [address] [place], [place] [phone] ACUTE ILLNESS 03/01/2013 Patient Education: Patient Medication Summary Completed 03/01/2013 Visit Plan: Continue metformin and accuc hecks Add fish oil 1gram daily Check HbA1C, CMP in 2mos then fwup 02/22/2013 Appointment: Jessica Gee WPtel: [address] [place], [place] [phone] 02/21 work vm FOLLOW UP 02/22/2013 Patient Education: Patient Medication Summary Completed 02/22/2013 Visit Plan: Start Metformin Start Accuch ecks daily alternating times Will go for dilated eye exam once BS more stabilized Diabetic foot care discussed Diabetic diet info given 01/11/2013 Appointment: Jessica Gee WPtel: [address] [place] [address] FOLLOW UP 01/11/2013 Patient Education: Patient Medication Summary Completed 01/11/2013 Appointment: Kaitlynn Mosley WPtel: [address] [place] [address] ACUTE ILLNESS 11/03/2012 Patient Education: Patient Medication Summary Completed 11/03/2012 Appointment: Xiomara Rodriguez WPtel: [address] [place] [address] ACUTE ILLNESS 05/04/2012 Patient Education: Patient Medication Summary Completed 05/04/2012 Visit Plan: pt reports that she always g ets yeast infections. Discussed that the antifungal can cause problems/increased bleeding with Coumdin. Pt. will start with probiotics and only take the Diflucan if needed. Cefdinir. 10/11/2011 Appointment: Xiomara Rodriguez WPtel: [address] [place] [address] ACUTE ILLNESS 10/11/2011 Patient Education: Patient Medication Summary Completed 10/11/2011 Appointment: Xiomara Rodriguez WPtel: [address] [place] [address] FOLLOW UP 06/23/2011 Patient Education: Patient Medication Summary Completed 06/23/2011 Visit Plan: Will prescribe an antibiotic and diflucan. Pt. reports that she frequently gets yeast infection. Discussed that she will notify if any symptoms persist. Pt. reports that her relatives have recently been hospitalized with pneumonia. 06/14/2011 Appointment: Xiomara Rodriguez WPtel: [address] [place] [address] ACUTE ILLNESS 06/14/2011 Patient Education: Patient Medication Summary Completed 06/14/2011 Visit Plan: sample of veramyst. Cefuroxi me axetil. Pt. will focus on hydration and rest. Discussed comfort measures and monitoring for worsening symptoms. 12/02/2010 Appointment: Xiomara Rodriguez WPtel: [address] [place] [address] ACUTE ILLNESS 12/02/2010 Patient Education: Patient Medication Summary Completed 12/02/2010 Visit Plan: Change HCTZ to spironolacton e will start zocor in 1 mo BP med in 1mo 11/12/2010 Appointment: Jessica Gee WPtel: [address] [place] [address] FOLLOW UP 11/12/2010 Patient Education: Patient Medication Summary Completed 11/12/2010 Appointment: Jessica Gee WPtel: [address] [place] [address] BP CHECK 10/26/2010 Patient Education: Patient Medication Summary Completed 10/26/2010 Visit Plan: Continue Toprol at bedtime A dd HCTZ in AM BP check in 2wks Fasting lab with next PT/INR 10/13/2010 Appointment: Jessica Gee WPtel: [address] [place] [address] FOLLOW UP 10/13/2010 Patient Education: Patient Medication Summary Completed 10/13/2010 Visit Plan: Cont abx. Fwup with surgery as scheduled 06/24/2010 Appointment: Jessica Gee WPtel: [address] [place] [address] Follow Up 06/24/2010 Patient Education: Patient Medication Summary Completed 06/24/2010 Appointment: Jessica Gee WPtel: [address] [place] [address] Follow Up 06/22/2010 Visit Plan: pt is [...] to subside. 06/08/2010 Appointment: Xiomara Rodriguez WPtel: [address] [place] [address] ACUTE ILLNESS 06/08/2010 Patient Education: Patient Medication Summary Completed 06/08/2010 Appointment: Xiomara Rodriguez WPtel: [address] [place] [address] FOLLOW UP 06/01/2010 Appointment: Jessica Gee WPtel: [address] [place] [address] UA 05/29/2010 Patient Education: Patient Medication Summary Completed 05/29/2010 Appointment: Xiomara Rodriguez WPtel: [address] [place] [address] ACUTE ILLNESS 05/20/2010 Patient Education: Patient Medication Summary Completed 05/20/2010 Appointment: Jessica Gee WPtel: [address] [place] [address] BP CHECK 05/13/2010 Patient Education: Patient Medication Summary Completed 05/13/2010 Visit Plan: Increase Lisinopril hct to 2 0/12.5mg q AM Use atarax prn and routinely at bedtime and Medrol dose pack BP check in 3wks Pt defers stress test at this time 04/30/2010 Appointment: Jessica Gee WPtel: [address] [place] [address] ACUTE ILLNESS 04/30/2010 Patient Education: Patient Medication Summary Completed 04/30/2010 Appointment: Jessica Gee WPtel: [address] [place] [address] BP CHECK 02/27/2010 Patient Education: Patient Medication Summary Completed 02/27/2010 Visit Plan: Cont Toprol Add Altace 10mg QD Cont Wellbutrin Will likely add SSRI after BP stable BP check in 2wks 01/22/2010 Appointment: Jessica Gee WPtel: [address] [place], [place] [id number] ACUTE ILLNESS 01/22/2010 Patient Education: Patient Medication Summary Completed 01/22/2010 Referral: Ruap Raines WPtel: [phone] [id number] [place] Referral Completed Referral: Neymar Alberts [facility]Ptel: [address] [id number] [place] Referral Initiated Instructions Comment . Tick [...]
--- OUTSIDE RECORDS SUMMARY | 2019-09-10 03:14 | XMS REPORT | CCD ---
Author Author Nava Gee D.O. Organization [facility] Address [address] [place] [address] Phone Care Team Providers Care Shipping Processor Name Role Phone Jessica Gee D.O., PP Unavailable CCM Unavailable Summary Purpose Interface Exchange Insurance Providers Payer name Policy type / Coverage type Covered alliance party ID Effective Begin Date Effective End Date Blue Cross Blue Shield Blue Cross/Blue Shield [id number] Unknown Family History Family History data not found Social History Social History Element Codes Description Effective Dates Tobacco history SNOMED CT: 103283532 Never smoker 10/13/2010 Allergies, Adverse Reactions, Alerts [...] findings ICD-9: V70.0 ICD-10: Z00.00 12/16/2017 Active skilled nursing (current) use of anticoagulants ICD-9: V58.6 1 [...] Fill Instructions celecoxib 200 mg capsule RxNorm: 861696 TAKE 1 CAPSULE BY MOUTH TWICE DAILY 03/20/2019 06/17/2019 Active metformin ER 500 mg tablet,extended release 24 hr RxNorm: 86 0975 TAKE 1 TABLET BY MOUTH TWICE DAILY 03/19/2019 05/17/2019 Active pravastatin 40 mg tablet RxNorm: 418810 TAKE 1 TABLET BY MOUTH ONCE DAILY 03/19/2019 06/16/2019 Active Coumadin 5 mg tablet RxNorm: 476168 TAKE 1 TABLET BY MOUTH ONCE DAILY 02/28/2019 No Stop Date Active warfarin 1 mg tablet RxNorm: 771146 [facility]T [facility] DA[facility]. TAKE AN ADDITIONAL TABLET ON TUESDAY AND Tuesday02/28/2019 No Stop Date Active omeprazole 40 mg capsule,delayed release RxNorm: 061438 TAKE 1 CAPSULE BY MOUTH TWICE DAILY 02/19/2019 No Stop Date Active metformin ER 500 mg tablet,extended release 24 hr RxNorm: 86 0975 1 Tablet(s) PO BID 02/19/2019 03/18/2019 Inactive metformin ER 500 mg tablet,extended release 24 hr RxNorm: 86 0975 1 Tablet(s) PO BID 01/15/2019 02/13/2019 Inactive alprazolam 0.25 mg tablet RxNorm: 298150 1 Tablet(s) Oral prior to flight 01/03/2019 No Stop Date Active omeprazole 40 mg capsule,delayed release RxNorm: 979667 TAKE 1 CAPSULE BY MOUTH TWICE DAILY 12/20/2018 02/18/2019 Inactive metformin ER 500 mg tablet,extended release 24 hr RxNorm: 86 0975 1 Tablet(s) PO BID 12/11/2018 01/09/2019 Inactive pravastatin 40 mg tablet RxNorm: 970508 TAKE 1 TABLET BY MOUTH ONCE DAILY 12/11/2018 03/18/2019 Inactive Coumadin 5 mg tablet RxNorm: 470903 1 Tablet(s) PO QD 11/27/201809/2018 Inactive metformin ER 500 mg tablet,extended release 24 hr RxNorm: 86 0975 1 Tablet(s) PO BID 10/02/2018 11/30/2018 Inactive warfarin 1 mg tablet RxNorm: 107677 TAKE 1 TABLET BY [facility] DAILY. TAKE AN ADDITIONAL TABLET ON TUESDAY AND Tuesday10/02/2018 02/27/2019 Inactiv e warfarin 5 mg tablet RxNorm: 817916 1 Tablet(s) PO QD 09/27/201810/2018 Inactive Bactrim DS 800 mg-160 mg tablet RxNorm: 550664 1 Tablet(s) PO BID 0 09/27/2018 10/03/2018 Inactive Toprol XL 200 mg tablet,extended release RxNorm: 219504 1 Table t(s) PO QD 09/18/2018 03/16/2019 Inactive omeprazole 40 mg capsule,delayed release RxNorm: 768472 TAKE 1 CAPSULE BY MOUTH TWICE DAILY 09/11/2018 12/19/2018 Inactive Coumadin 5 mg tablet RxNorm: 088828 1 Tablet(s) PO QD 08/21/201811/2018 Inactive metformin ER 500 mg tablet,extended release 24 hr RxNorm: 86 0975 1 Tablet(s) PO BID 07/31/2018 09/28/2018 Inactive omeprazole 40 mg capsule,delayed release RxNorm: 819704 TAKE 1 CAPSULE BY MOUTH TWICE DAILY 06/27/2018 09/10/2018 Inactive metformin ER 500 mg tablet,extended release 24 hr RxNorm: 86 0975 Tablet(s) 1 Tablet(s) PO BID 06/27/2018 07/31/2018 Inactive Toprol XL 200 mg tablet,extended release RxNorm: 440823 1 Table t(s) PO QD 06/14/2018 09/17/2018 Inactive Coumadin 5 mg tablet RxNorm: 831231 1 Tablet(s) PO QD 06/14/201804/2018 Inactive metformin ER 500 mg tablet,extended release 24 hr RxNorm: 86 0975 Tablet(s) 1 Tablet(s) PO BID 05/22/2018 06/26/2018 Inactive Coumadin 5 mg tablet RxNorm: 388479 TAKE 1 TABLET BY MOUTH ONCE DAILY 05/11/2018 06/14/2018 Inactive Lovenox 40 mg/0.4 mL subcutaneous syringe RxNorm: 911235 40 Mil ligram(s) SQ QD 05/05/2018 09/26/2018 Inactive amitriptyline 25 mg tablet RxNorm: 725689 1 Tablet(s) PO QHS fo r sleep/HAs 04/24/2018 10/20/2018 Inactive OneTouch Ultra Test strips RxNorm: Test blood sugar sigrid y (Dx:E11.65) 04/24/2018 No Stop Date Active celecoxib 200 mg capsule RxNorm: 182814 1 Capsule(s) PO BID 019 10/20/2018 Inactive Celebrex 200 mg capsule RxNorm: 247926 TAKE 1 CAPSULE BY MOUTH ONCE DAILY 04/19/2018 04/23/2018 Inactive warfarin 1 mg tablet RxNorm: 452579 1 Tablet(s) PO QD a nd additional tablet on Tue & Th04/14/2018 10/01/2018 Inactive Toprol XL 200 mg tablet,extended release RxNorm: 491109 TAKE 1 TABLET BY MOUTH ONCE DAILY 04/11/2018 06/14/2018 Inactive metformin ER 500 mg tablet,extended release 24 hr RxNorm: 86 0975 Tablet(s) 1 Tablet(s) PO BID 03/17/2018 05/21/2018 Inactive Coumadin 5 mg tablet RxNorm: 658695 TAKE 1 TABLET BY MOUTH ONCE DAILY 03/15/2018 05/10/2018 Inactive Lovenox 40 mg/0.4 mL subcutaneous syringe RxNorm: 473371 40 Mil ligram(s) SQ QD 01/27/2018 04/11/2018 Inactive omeprazole 40 mg capsule,delayed release RxNorm: 238818 TAKE 1 CAPSULE BY MOUTH TWICE DAILY 01/23/2018 06/26/2018 Inactive pravastatin 40 mg tablet RxNorm: 528253 TAKE 1 TABLET BY MOUTH ONCE DAILY 01/23/2018 12/10/2018 Inactive metformin ER 500 mg tablet,extended release 24 hr RxNorm: 86 0975 Tablet(s) 1 Tablet(s) PO BID 01/16/2018 01/15/2018 Inactive Toprol XL 200 mg tablet,extended release RxNorm: 676987 TAKE 1 TABLET BY MOUTH ONCE DAILY 01/16/2018 04/10/2018 Inactive Coumadin 5 mg tablet RxNorm: 185726 TAKE 1 TABLET BY MOUTH ONCE DAILY 01/06/2018 03/14/2018 Inactive Celebrex 200 mg capsule RxNorm: 585427 1 Capsule(s) PO BID 12/28/19 18 03/26/2018 Inactive metformin ER 500 mg tablet,extended release 24 hr RxNorm: 86 0975 1 Tablet(s) PO BID Needs APPT 12/21/2017 01/16/2018 Inactive omeprazole 40 mg capsule,delayed release RxNorm: 678232 TAKE 1 CAPSULE BY MOUTH TWICE DAILY 11/02/2017 01/22/2018 Inactive Celebrex 200 mg capsule RxNorm: 082181 1 Capsule(s) PO QD 11/01/2017 12/26/2017 Inactive Coumadin 5 mg tablet RxNorm: 530162 Tablet(s) TAKE ONE TABLET BY MOUTH ONCE DAILY. 10/31/2017 12/29/2017 Inactive warfarin 1 mg tablet RxNorm: 933854 1 Tablet(s) PO QD 10/31/201703/22 Inactive spironolactone 25 mg tablet RxNorm: 988162 TAKE TWO TAB LETS BY MOUTH IN THE MORNING 10/31/2017 04/23/2018 Inactive metformin ER 500 mg tablet,extended release 24 hr RxNorm: 86 0975 1 Tablet(s) PO BID Needs updated fasting lab 10/20/2017 12/21/2017 Inactive Medrol (Adle) 4 mg tablets in a dose pack RxNorm: 718781 Tablet(s) PO take as directed 10/12/2017 12/15/2017 Inactive Celebrex 200 mg capsule RxNorm: 748008 1 Capsule(s) PO QD 10/03/2017 10/02/2017 Inactive spironolactone 25 mg tablet RxNorm: 970674 TAKE TWO TAB LETS BY MOUTH IN THE MORNING 09/19/2017 10/30/2017 Inactive Zithromax Z-Dale 250 mg tablet RxNorm: 066010 Tablet(s) PO take as directed 09/16/2017 10/11/2017 Inactive Medrol (Dale) 4 mg tablets in a dose pack RxNorm: 606600 Tablet(s) take as directed PO 09/16/2017 10/11/2017 Inactive doxycycline hyclate 100 mg tablet RxNorm: 7253659 1 Tablet(s) PO BI D 09/16/2017 09/15/2017 Inactive doxycycline hyclate 100 mg tablet RxNorm: 7760860 1 Tablet(s) PO BI D 09/16/2017 09/25/2017 Inactive Tessalon Perles 100 mg capsule RxNorm: 455633 1 Capsule(s) PO T ID as needed 09/16/2017 12/15/2017 Inactive warfarin 1 mg tablet RxNorm: 947783 1 Tablet(s) PO QD 09/06/201710/19 Inactive Coumadin 5 mg tablet RxNorm: 051600 Tablet(s) TAKE ONE TABLET BY MOUTH ONCE DAILY. 09/06/2017 10/31/2017 Inactive Toprol XL 200 mg tablet,extended release RxNorm: 438760 1 Table t(s) PO QD 2017 01/02/2018 Inactive warfarin 1 mg tablet RxNorm: 439178 1 Tablet(s) PO QD DUE FOR L ABS AUGUST 12 08/29/2017 09/06/2017 Inactive Coumadin 5 mg tablet RxNorm: 759461 Tablet(s) TAKE ONE TABLET BY MOUTH ONCE DAILY. DUE FOR PT/INR AUGUST 12 08/29/2017 09/06/2017 Inactive Coumadin 5 mg tablet RxNorm: 817059 Tablet(s) TAKE ONE TABLET BY MOUTH ONCE DAILY. DUE FOR PT/INR AUGUST 12 08/01/2017 08/29/2017 Inactive warfarin 1 mg tablet RxNorm: 026758 1 Tablet(s) PO QD DUE FOR L ABS AUGUST 12 08/01/2017 08/29/2017 Inactive scopolamine 1 mg over 3 days transdermal patch RxNorm: 01056 2 1 TD take off in 72 hours. 08/01/2017 12/26/2017 Inactive pravastatin 40 mg tablet RxNorm: 792096 Tablet(s) TAKE ONE TABLET BY MOUTH ONCE DAILY 07/07/2017 01/02/2018 Inactive Coumadin 5 mg tablet RxNorm: 681824 Tablet(s) TAKE ONE TABLET BY MOUTH ONCE DAILY. DUE FOR PT/INR. 06/29/2017 08/01/2017 Inactive warfarin 1 mg tablet RxNorm: 463682 1 Tablet(s) PO QD 06/29/201707/19 Inactive Coumadin 5 mg tablet RxNorm: 872479 TAKE ONE TABLET BY MOUTH ONCE DAILY. DUE FOR PT/INR. 05/30/2017 06/29/2017 Inactive omeprazole 40 mg capsule,delayed release RxNorm: 074972 1 Capsu le(s) PO BID 05/30/2017 08/27/2017 Inactive Celebrex 200 mg capsule RxNorm: 474458 1 Capsule(s) PO QD 05/23/2017 10/03/2017 Inactive metformin ER 500 mg tablet,extended release 24 hr RxNorm: 86 0975 TAKE ONE TABLET BY MOUTH TWICE DAILY 05/20/2017 10/20/2017 Inactive Coumadin 5 mg tablet RxNorm: 747254 1 Tablet(s) PO QD due for PT/IN R 04/25/2017 05/24/2017 Inactive warfarin 1 mg tablet RxNorm: 877390 1 Tablet(s) PO QD due for l abs this week 03/16/2017 06/29/2017 Inactive omeprazole 40 mg capsule,delayed release RxNorm: 830837 1 Capsu le(s) PO BID 03/16/2017 05/30/2017 Inactive Celebrex 200 mg capsule RxNorm: 593337 1 Capsule(s) PO BID as n eeded for pain 03/16/2017 05/22/2017 Inactive Coumadin 5 mg tablet RxNorm: 148191 1 Tablet(s) PO QD due for PT/IN R 03/16/2017 04/14/2017 Inactive Celebrex 200 mg capsule RxNorm: 103440 1 Capsule(s) PO BID as n eeded for pain 02/09/2017 03/15/2017 Inactive Toprol XL 200 mg tablet,extended release RxNorm: 473327 1 Table t(s) PO QD 02/08/2017 2017 Inactive Celebrex 200 mg capsule RxNorm: 639294 1 Capsule(s) PO BID as n eeded for pain 01/14/2017 02/08/2017 Inactive omeprazole 40 mg capsule,delayed release RxNorm: 843807 1 Capsu le(s) PO BID 01/12/2017 03/16/2017 Inactive Coumadin 5 mg tablet RxNorm: 518708 1 Tablet(s) PO QD 12/15/201602/19 Inactive warfarin 1 mg tablet RxNorm: 172503 1 Tablet(s) PO QD 12/15/201602/19 Inactive metformin ER 500 mg tablet,extended release 24 hr RxNorm: 86 0975 Tablet(s) TAKE ONE TABLET BY MOUTH TWICE DAILY 11/29/2016 02/26/2017 Inactive omeprazole 40 mg capsule,delayed release RxNorm: 113644 1 Capsu le(s) PO BID 11/29/2016 12/28/2016 Inactive pravastatin 40 mg tablet RxNorm: 812977 Tablet(s) TAKE ONE TABLET BY MOUTH ONCE DAILY 11/19/2016 07/07/2017 Inactive omeprazole 40 mg capsule,delayed release RxNorm: 046758 1 Capsu le(s) PO BID 10/19/2016 10/18/2016 Inactive omeprazole 40 mg capsule,delayed release RxNorm: 871425 1 Capsu le(s) PO BID 10/19/2016 11/17/2016 Inactive pantoprazole 40 mg tablet,delayed release RxNorm: 844964 1 Tabl et(s) PO QD 09/30/2016 10/18/2016 Inactive pantoprazole 40 mg tablet,delayed release RxNorm: 905283 1 Tabl et(s) PO QD 09/30/2016 09/29/2016 Inactive Zofran ODT 4 mg disintegrating tablet RxNorm: 611478 1 Tablet(s) PO Q4H as needed for nausea 09/15/2016 01/02/2017 Inactive Coumadin 5 mg tablet RxNorm: 963122 1 Tablet(s) PO QD 09/14/201611/20 Inactive warfarin 1 mg tablet RxNorm: 263889 1 Tablet(s) PO QD 09/14/201611/20 Inactive spironolactone 25 mg tablet RxNorm: 502471 2 Tablet(s) PO QAM 09/0301/02/2017 Inactive Wellbutrin XL 300 mg 24 hr tablet, extended release RxNorm: 753080 TAKE ONE TABLET BY MOUTH ONCE DAILY 08/26/2016 12/26/2017 Inactive Toprol XL 200 mg tablet,extended release RxNorm: 520593 1 Table t(s) PO QD 07/28/2016 02/08/2017 Inactive metformin ER 500 mg tablet,extended release 24 hr RxNorm: 86 0975 Tablet(s) TAKE ONE TABLET BY MOUTH TWICE DAILY 07/15/2016 11/29/2016 Inactive cyclobenzaprine 5 mg tablet RxNorm: 432017 1 Tablet(s) PO QHS f or spasm 07/08/2016 08/06/2016 Inactive Celebrex 200 mg capsule RxNorm: 1 Capsule(s) PO BID 07/08/2016 Inactive spironolactone 25 mg tablet RxNorm: 647314 1 Tablet(s) PO QAM 07/0609/02/2016 Inactive Wellbutrin XL 300 mg 24 hr tablet, extended release RxNorm: 253201 TAKE ONE TABLET BY MOUTH ONCE DAILY 06/15/2016 07/14/2016 Inactive Coumadin 5 mg tablet RxNorm: 162216 1 Tablet(s) PO QD 06/08/201608/20 Inactive warfarin 1 mg tablet RxNorm: 800771 1 Tablet(s) PO QD 06/08/201608/20 Inactive Toprol XL 200 mg tablet,extended release RxNorm: 879548 TAKE ONE TABLET BY MOUTH ONCE DAILY 04/26/2016 07/28/2016 Inactive pravastatin 40 mg tablet RxNorm: 586957 TAKE ONE TABLET BY MOUT H ONCE DAILY 04/19/2016 10/15/2016 Inactive Coumadin 5 mg tablet RxNorm: 013984 1 Tablet(s) PO QD 03/09/201605/19 Inactive warfarin 1 mg tablet RxNorm: 819939 1 Tablet(s) PO QD 03/09/201605/19 Inactive metformin ER 500 mg tablet,extended release 24 hr RxNorm: 86 0975 TAKE ONE TABLET BY MOUTH TWICE DAILY 02/25/2016 07/15/2016 Inactive spironolactone 25 mg tablet RxNorm: 581037 TAKE ONE TAB LET BY MOUTH ONCE DAILY IN THE MORNING 02/25/2016 07/06/2016 Inactive prednisone 20 mg tablet RxNorm: 451110 1 Tablet(s) PO QAM 02/16/2016 02/20/2016 Inactive cefdinir 300 mg capsule RxNorm: 066085 2 Capsule(s) PO QD 02/16/2016 02/25/2016 Inactive Toprol XL 200 mg tablet,extended release RxNorm: 507370 TAKE ONE TABLET BY MOUTH ONCE DAILY 01/26/2016 04/24/2016 Inactive Aciphex 20 mg tablet,delayed release RxNorm: 006066 1 Tablet(s) PO BID 12/24/2015 09/29/2016 Inactive Omeprazole and Pepci d have not helped. Coumadin 5 mg tablet RxNorm: 179797 1 Tablet(s) PO QD 12/10/201502/19 Inactive Coumadin 5 mg tablet RxNorm: 132065 1 Tablet(s) PO QD 12/08/201511/20 Inactive Toprol XL 200 mg tablet,extended release RxNorm: 197819 TAKE ONE TABLET BY MOUTH ONCE DAILY 11/20/2015 01/18/2016 Inactive warfarin 1 mg tablet RxNorm: 116998 1 Tablet(s) PO QD 11/03/201502/19 Inactive pravastatin 40 mg tablet RxNorm: 767958 Tablet(s) TAKE ONE TABLET BY MOUTH ONCE DAILY 10/20/2015 01/17/2016 Inactive pravastatin 40 mg tablet RxNorm: 424819 TAKE ONE TABLET BY MOUT H ONCE DAILY 10/20/2015 10/19/2015 Inactive metformin ER 500 mg tablet,extended release 24 hr RxNorm: 86 0975 TAKE ONE TABLET BY MOUTH TWICE DAILY 10/03/2015 12/31/2015 Inactive Toprol XL 200 mg tablet,extended release RxNorm: 532392 TAKE ONE TABLET BY MOUTH ONCE DAILY 09/17/2015 11/15/2015 Inactive Coumadin 5 mg tablet RxNorm: 070335 1 Tablet(s) PO QD 09/02/201511/19 Inactive Wellbutrin XL 300 mg 24 hr tablet, extended release RxNorm: 205419 TAKE ONE TABLET BY MOUTH ONCE DAILY 08/01/2015 10/29/2015 Inactive Pepcid 20 mg tablet RxNorm: 698440 1 Tablet(s) PO BID as needed 05/24/2017 Inactive warfarin 1 mg tablet RxNorm: 853602 TAKE ONE TABLET BY MOUTH ON CE DAILY 07/08/2015 11/03/2015 Inactive pravastatin 40 mg tablet RxNorm: 454075 1 Tablet(s) PO QD 07/08/2015 10/05/2015 Inactive spironolactone 25 mg tablet RxNorm: 634573 TAKE ONE TAB LET BY MOUTH ONCE DAILY IN THE MORNING 06/13/2015 09/10/2015 Inactive Coumadin 5 mg tablet RxNorm: 046844 1 Tablet(s) PO QD 06/05/201508/19 Inactive Wellbutrin XL 300 mg 24 hr tablet, extended release RxNorm: 261301 TAKE ONE TABLET BY MOUTH ONCE DAILY 05/16/2015 09/26/2018 Inactive Wellbutrin XL 300 mg 24 hr tablet, extended release RxNorm: 997415 TAKE ONE TABLET BY MOUTH ONCE DAILY 05/16/2015 06/14/2015 Inactive metformin ER 500 mg tablet,extended release 24 hr RxNorm: 86 0975 TAKE ONE TABLET BY MOUTH TWICE DAILY 05/16/2015 08/13/2015 Inactive pravastatin 40 mg tablet RxNorm: 075286 1 Tablet(s) PO QD 04/10/2015 07/07/2015 Inactive Aciphex 20 mg tablet,delayed release RxNorm: 055819 1 Tablet(s) PO BID 03/07/2015 09/02/2015 Inactive Omeprazole and Pepci d have not helped. Toprol XL 200 mg tablet,extended release RxNorm: 605434 1 Table t(s) PO QD 03/05/2015 08/31/2015 Inactive Aciphex 20 mg tablet,delayed release RxNorm: 706673 1 Tablet(s) PO QD 03/04/2015 03/06/2015 Inactive Omeprazole and Pepci d have not helped. Coumadin 5 mg tablet RxNorm: 382758 1 Tablet(s) PO QD 02/28/201511/2015 Inactive Aciphex 20 mg tablet,delayed release RxNorm: 675081 1 Tablet(s) PO BID 02/11/2015 03/03/2015 Inactive Omeprazole and Pepci d have not helped. metformin ER 500 mg tablet,extended release 24 hr RxNorm: 86 0975 1 Tablet(s) PO BID 01/10/2015 04/09/2015 Inactive pravastatin 40 mg tablet RxNorm: 471174 1 Tablet(s) PO QD 01/06/2015 04/05/2015 Inactive Wellbutrin XL 300 mg 24 hr tablet, extended release RxNorm: 415861 TAKE ONE TABLET BY MOUTH ONCE DAILY 12/19/2014 02/16/2015 Inactive amoxicillin 500 mg capsule RxNorm: 389284 2 Capsule(s) PO BID 12/0612/15/2014 Inactive Flonase 50 mcg/actuation nasal spray,suspension RxNorm: 8963 23 2 Ovando each nostril NASAL QD 12/06/2014 03/05/2015 Inactive Coumadin 5 mg tablet RxNorm: 605451 1 Tablet(s) PO QD 11/28/201410/2014 Inactive spironolactone 25 mg tablet RxNorm: 729477 1 Tablet(s) PO QAM 11/2602/23/2015 Inactive Coumadin 5 mg tablet RxNorm: 275108 1 Tablet(s) PO QD 1 Tablet(s) PO QD- NEED TO CHECK LABS 10/30/2014 11/28/2014 Inactive warfarin 1 mg tablet RxNorm: 082348 1 Tablet(s) PO QD 10/30/201409/2015 Inactive Aciphex 20 mg tablet,delayed release RxNorm: 694071 1 Tablet(s) PO QD 10/02/2014 02/10/2015 Inactive Omeprazole and Pepci d have not helped. Coumadin 5 mg tablet RxNorm: 428204 1 Tablet(s) PO QD 1 Tablet(s) PO QD- NEED TO CHECK LABS 09/30/2014 10/30/2014 Inactive pravastatin 40 mg tablet RxNorm: 697822 1 Tablet(s) PO QD 09/25/2014 01/06/2015 Inactive warfarin 1 mg tablet RxNorm: 287589 1 Tablet(s) PO QD T [place] ONE TABLET BY MOUTH DIRECTED ON MON AND THUR 08/28/2014 10/29/2014 Inactive metformin ER 500 mg tablet,extended release 24 hr RxNorm: 86 0975 1 Tablet(s) PO BID 08/28/2014 01/10/2015 Inactive amoxicillin 875 mg tablet RxNorm: 710982 1 Tablet(s) PO BID 015 08/18/2014 Inactive Toprol XL 200 mg tablet,extended release RxNorm: 986012 TAKE ONE TABLET BY MOUTH ONCE DAILY 07/22/2014 03/05/2015 Inactive Coumadin 5 mg tablet RxNorm: 030081 1 Tablet(s) PO QD 07/01/201409/18 Inactive amoxicillin 875 mg tablet RxNorm: 640012 1 Tablet(s) PO BID 015 06/30/2014 Inactive pravastatin 40 mg tablet RxNorm: 054774 1 Tablet(s) PO QD needs fasting labs 06/19/2014 09/25/2014 Inactive Coumadin 5 mg tablet RxNorm: 282270 1 Tablet(s) PO QD 1 Tablet(s) PO QD TAKE ONE TABLET BY MOUTH ONCE DAILY-need labs 05/28/2014 07/01/2014 Inactive warfarin 1 mg tablet RxNorm: 425132 1 Tablet(s) PO As Directed 05/1908/28/2014 Inactive pravastatin 40 mg tablet RxNorm: 066176 1 Tablet(s) PO QD needs fasting labs 05/14/2014 06/19/2014 Inactive metformin ER 500 mg tablet,extended release 24 hr RxNorm: 86 0975 1 Tablet(s) PO BID 04/25/2014 08/28/2014 Inactive spironolactone 25 mg tablet RxNorm: 338398 1 Tablet(s) PO QAM 04/2511/26/2014 Inactive Coumadin 5 mg tablet RxNorm: 439196 1 Tablet(s) PO QD 1 Tablet(s) PO QD TAKE ONE TABLET BY MOUTH ONCE DAILY 04/23/2014 05/28/2014 Inactive Coumadin 5 mg tablet RxNorm: 808734 1 Tablet(s) PO QD 1 Tablet(s) PO QD TAKE ONE TABLET BY MOUTH ONCE DAILY 03/22/2014 04/20/2014 Inactive Tessalon Perles 100 mg capsule RxNorm: 895598 1 Capsule(s) PO TID 0 03/22/2014 03/28/2014 Inactive cefdinir 300 mg capsule RxNorm: 290954 2 Capsule(s) PO QD 03/22/2014 03/31/2014 Inactive Medrol (Dale) 4 mg tablets in a dose pack RxNorm: 544358 Tablet(s) PO as directed 03/05/2014 08/08/2014 Inactive Coumadin 5 mg tablet RxNorm: 186952 1 Tablet(s) PO QD 1 Tablet(s) PO QD TAKE ONE TABLET BY MOUTH ONCE DAILY 02/19/2014 03/20/2014 Inactive pravastatin 40 mg tablet RxNorm: 354649 1 Tablet(s) PO QD 02/04/2014 05/14/2014 Inactive Coumadin 5 mg tablet RxNorm: 015143 1 Tablet(s) PO QD T [place] ONE TABLET BY MOUTH ONCE DAILY 01/21/2014 02/19/2014 Inactive Medrol (Dale) 4 mg tablets in a dose pack RxNorm: 293984 Tablet(s) PO as directed 01/18/2014 03/04/2014 Inactive cefdinir 300 mg capsule RxNorm: 742475 2 Capsule(s) PO QD 01/16/2014 01/25/2014 Inactive metformin ER 500 mg tablet,extended release 24 hr RxNorm: 86 0975 1 Tablet(s) PO BID 12/17/2013 04/25/2014 Inactive Wellbutrin SR 150 mg tablet,sustained-release RxNorm: 305962 1 Tablet(s) PO BID 11/30/2013 02/27/2014 Inactive spironolactone 25 mg tablet RxNorm: 094745 1 Tablet(s) PO QAM 10/2204/25/2014 Inactive Macrobid 100 mg capsule RxNorm: 762887 1 Capsule(s) PO BID 10/20/19 14 10/25/2013 Inactive Macrobid 100 mg capsule RxNorm: 219235 1 Capsule(s) PO BID 10/20/19 14 10/18/2013 Inactive Toprol XL 100 mg tablet,extended release RxNorm: 209546 1 Table t(s) PO QD 10/15/2013 01/15/2014 Inactive Toprol XL 200 mg tablet,extended release RxNorm: 474290 1 Table t(s) PO QD 10/02/2013 07/22/2014 Inactive Wellbutrin XL 300 mg 24 hr tablet, extended release RxNorm: 475063 1 Tablet(s) PO QD 09/28/2013 12/19/2014 Inactive Aciphex 20 mg tablet,delayed release RxNorm: 663150 1 Tablet(s) PO QD 08/29/2013 10/02/2014 Inactive Omeprazole and Pepci d have not helped. Coumadin 5 mg tablet RxNorm: 837251 1 Tablet(s) PO QD 08/14/201307/20 Inactive Coumadin 5 mg tablet RxNorm: 471129 1 Tablet(s) PO QD 08/14/20130 05/2013 Inactive pravastatin 40 mg tablet RxNorm: 110843 1 Tablet(s) PO QD 07/24/2013 02/04/2014 Inactive warfarin 1 mg tablet RxNorm: 225696 1 Tablet(s) PO QD T [place] ONE TABLET BY MOUTH DIRECTED ON MON AND THUR 07/09/2013 05/28/2014 Inactive warfarin 5 mg tablet RxNorm: 847164 1 Tablet(s) PO QD T [place] ONE TABLET BY MOUTH EVERY DAY 06/08/2013 07/07/2013 Inactive spironolactone 25 mg tablet RxNorm: 043295 1 Tablet(s) PO QAM 05/3010/15/2013 Inactive clindamycin 300 mg capsule RxNorm: 234355 2 Capsule(s) PO TID 04/1704/30/2013 Inactive warfarin 5 mg tablet RxNorm: 667119 1 Tablet(s) PO QD 03/12/201305/20 Inactive azithromycin 250 mg tablet RxNorm: 124987 2 Tablet(s) PO QD 013 03/07/2013 Inactive metformin ER 500 mg tablet,extended release 24 hr RxNorm: 86 0975 1 Tablet(s) PO BID 02/22/2013 12/17/2013 Inactive spironolactone 25 mg tablet RxNorm: 226845 1 Tablet(s) PO QAM 01/2205/30/2013 Inactive metformin ER 500 mg tablet,extended release 24 hr RxNorm: 86 0977 1 Tablet(s) PO BID 01/11/2013 02/21/2013 Inactive pravastatin 40 mg tablet RxNorm: 231784 1 Tablet(s) PO QD 01/11/2013 07/24/2013 Inactive warfarin 5 mg tablet RxNorm: 651144 1 Tablet(s) PO QD 01/04/201302/19 Inactive warfarin 1 mg tablet RxNorm: 142379 Tablet(s) PO TAKE O NE TABLET BY MOUTH DIRECTED ON MON AND THUR 12/14/2012 07/08/2013 Inactive scopolamine 1.5 mg 72 hr Transderm Patch RxNorm: 261884 TD Apply 1 patch behind ear every 72 hours, replace after 3 days. 11/08/2012 01/15/2014 Inacti ve Pepcid 20 mg tablet RxNorm: 727847 1 Tablet(s) PO BID as needed 01/31/2013 Inactive Famvir 500 mg tablet RxNorm: 223853 1 Tablet(s) PO Q8H 11/03/2012 Inactive Aciphex 20 mg tablet,delayed release RxNorm: 165820 1 Tablet(s) PO QD 11/03/2012 05/01/2013 Inactive Omeprazole and Pepci d have not helped. gabapentin 300 mg capsule RxNorm: 534500 Capsule(s) PO TID 11/04/19 13 01/15/2014 Inactive warfarin 5 mg tablet RxNorm: 738472 1 Tablet(s) PO QD 11/02/201212/19 Inactive Wellbutrin XL 300 mg 24 hr tablet, extended release RxNorm: 031750 1 Tablet(s) PO QD 10/17/2012 04/30/2013 Inactive pravastatin 40 mg tablet RxNorm: 724857 Tablet(s) PO TA KE ONE TABLET BY MOUTH EVERY DAY. NEED FASTING LABS 09/18/2012 01/10/2013 Inactive Toprol XL 200 mg tablet,extended release RxNorm: 328233 Tablet(s) PO TAKE ONE TABLET BY MOUTH EVERY DAY 09/08/2012 10/01/2013 Inactive warfarin 5 mg tablet RxNorm: 744287 1 Tablet(s) PO QD 08/31/201210/19 Inactive pravastatin 40 mg tablet RxNorm: 769361 1 Tablet(s) PO QD Needs fasting labs 08/18/2012 09/16/2012 Inactive TAKE ONE TABLET BY M OUTH EVERY DAY warfarin 1 mg tablet RxNorm: 368122 1 Tablet(s) PO As directed on Mon and Thurs 08/11/2012 12/13/2012 Inactive spironolactone 25 mg tablet RxNorm: 073731 1 Tablet(s) PO QAM 07/1110/08/2012 Inactive warfarin 5 mg tablet RxNorm: 902391 1 Tablet(s) PO QD 07/03/201208/19 Inactive Diflucan 100 mg tablet RxNorm: 754410 1 Tablet(s) PO QD 05/04/2012 Inactive Cipro 500 mg tablet RxNorm: 067377 1 Tablet(s) PO BID 05/04/201204/22 Inactive Aciphex 20 mg tablet,delayed release RxNorm: 079054 1 Tablet(s) PO QD 05/04/2012 07/02/2012 Inactive Omeprazole and Pepci d have not helped. warfarin 5 mg tablet RxNorm: 717600 1 Tablet(s) PO QD 05/02/201206/19 Inactive warfarin 5 mg tablet RxNorm: 404748 1 Tablet(s) PO QD 03/02/201204/21 Inactive Toprol XL 200 mg tablet,extended release RxNorm: 856983 1 Table t(s) PO QD 03/02/2012 05/30/2012 Inactive spironolactone 25 mg tablet RxNorm: 706207 1 Tablet(s) PO QAM 02/0707/11/2012 Inactive pravastatin 40 mg tablet RxNorm: 121615 Tablet(s) PO 01/31/201208/17 Inactive TAKE ONE TABLET BY MOUTH EVERY DAY pravastatin 40 mg tablet RxNorm: 182375 1 Tablet(s) PO QD 01/31/2012 08/18/2012 Inactive omeprazole 40 mg capsule,delayed release RxNorm: 820201 1 Capsule(s) PO QD for stomach 01/11/2012 11/02/2012 Inactive for stomach warfarin 5 mg tablet RxNorm: 106353 1 Tablet(s) PO QD 01/03/201202/18 Inactive warfarin 5 mg tablet RxNorm: 349950 1 Tablet(s) PO QD 12/03/201112/19 Inactive pravastatin 40 mg tablet RxNorm: 519796 1 Tablet(s) PO QD 11/25/2011 01/23/2012 Inactive cefdinir 300 mg Cap RxNorm: 204529 1 Capsule(s) PO BID 10/11/201103/2011 Inactive Culturelle 10 billion cell Cap RxNorm: 928321 1 Capsule(s) PO BID 0 10/11/2011 11/09/2011 Inactive Diflucan 100 mg Tab RxNorm: 675478 1 Tablet(s) PO QD 10/11/201110/19 Inactive Wellbutrin XL 300 mg 24 hr tablet, extended release RxNorm: 797511 1 Tablet(s) PO QD 09/14/2011 10/17/2012 Inactive pravastatin 40 mg tablet RxNorm: 514863 1 Tablet(s) PO QD 08/25/2011 11/25/2011 Inactive Coumadin 5 mg tablet RxNorm: 519221 Tablet(s) PO Take as direct ed by doctor. 07/07/2011 12/03/2011 Inactive Singulair 10 mg Tab RxNorm: 386873 1 Tablet(s) PO QD al lergy medication. (Please try to be consistent in dosing) 06/23/2011 01/15/2014 Inactive Diflucan 100 mg Tab RxNorm: 942024 1 Tablet(s) PO QD 06/14/201107/02 Inactive cefdinir 300 mg Cap RxNorm: 212295 1 Capsule(s) PO BID 06/14/201106/2011 Inactive pravastatin 40 mg Tab RxNorm: 062270 1 Tablet(s) PO QD 05/25/201108/2011 Inactive warfarin 5 mg Tab RxNorm: 165414 Tablet(s) PO 05/25/2011 10/18/2011 In active TAKE ONE TABLET BY MOUTH EVERY DAY Toprol XL 200 mg tablet,extended release RxNorm: 059048 1 Table t(s) PO QD 03/05/2011 06/02/2011 Inactive spironolactone 25 mg tablet RxNorm: 567125 1 Tablet(s) PO QAM 02/2402/08/2012 Inactive omeprazole 40 mg capsule,delayed release RxNorm: 077719 1 Capsule(s) PO QD for stomach 01/06/2011 01/11/2012 Inactive for stomach warfarin 5 mg Tab RxNorm: 144391 1 Tablet(s) PO QD 12/17/2010 011 Inactive warfarin 5 mg Tab RxNorm: 009560 1 Tablet(s) PO QD 11/18/2010 011 Inactive spironolactone 25 mg Tab RxNorm: 475858 1 Tablet(s) PO QAM 11/13/19 11 02/24/2011 Inactive Coumadin 6 mg Tab RxNorm: 803156 1 Tablet(s) PO QD 10/28/2010 011 Inactive May have generic hydrochlorothiazide 25 mg Tab RxNorm: 248193 1 Tablet(s) PO QAM 11/11/2010 Inactive Wellbutrin XL 300 mg 24 hr Tab RxNorm: 153640 1 Tablet(s) PO QD 09/14/2011 Inactive Septra DS 800 mg-160 mg Tab RxNorm: 235962 1 Tablet(s) PO BID 06/0806/17/2010 Inactive Pyridium 100 mg Tab RxNorm: 0202477 1 Tablet(s) PO TID 06/08/2010 Inactive Wellbutrin XL 300 mg 24 hr Tab RxNorm: 818879 1 Tablet(s) PO QD 05/201007/15/2010 Inactive hydroxyzine 25 mg Tab RxNorm: 043173 1 Tablet(s) PO QID prn itching--take routinely at bedtime. (pt. may not refil at this time but later) 05/20/2010 10/10/2011 Inactive Zyrtec 10 mg Tab RxNorm: 1586227 1 Tablet(s) PO BID 05/20/20102010 Inactive Coumadin 1 mg Tab RxNorm: 412283 1 Tablet(s) PO 6mg M-F, 7mg S-S 11/16/2010 Inactive hydroxyzine 25 mg Tab RxNorm: 050246 1 Tablet(s) PO QID prn itching--take routinely at bedtime 04/30/2010 05/19/2010 Inactive Toprol XL 200 mg 24 hr Tab RxNorm: 162030 1 Tablet(s) PO QD 011 06/23/2010 Inactive lisinopril-hydrochlorothiazide 10 mg-12.5 mg Tab RxNorm: 197 885 1 Tablet(s) PO QD 04/20/2010 04/29/2010 Inactive omeprazole 40 mg Cap, Delayed Release RxNorm: 552553 1 Capsule(s) PO QD for stomach 04/20/2010 08/17/2010 Inactive lisinopril-hydrochlorothiazide 10 mg-12.5 mg Tab RxNorm: 197 885 Tablet(s) PO 1QDAM - TAKE ONE TABLET BY MOUTH EVERY DAY IN THE MORNING 03/09/2010 Inactive lisinopril-hydrochlorothiazide 10 mg-12.5 mg Tab RxNorm: 197 885 1 Tablet(s) PO QD 02/27/2010 04/20/2010 Inactive Wellbutrin XL 300 mg 24 hr Tab RxNorm: 819332 1 Tablet(s) PO QD 05/21/2010 Inactive lisinopril-hydrochlorothiazide 10 mg-12.5 mg Tab RxNorm: 197 885 1 Tablet(s) PO QD 01/28/2010 02/26/2010 Inactive omeprazole 40 mg Cap, Delayed Release RxNorm: 801447 1 Capsule(s) PO QD for stomach 01/22/2010 04/20/2010 Inactive Altace 10 mg Cap RxNorm: 161111 1 Capsule(s) PO QD for BP 01/22/2010 03/22/2010 Inactive Coumadin 6 mg Tab RxNorm: 675988 1 Tablet(s) PO QD May have generic 12/03/2009 05/01/2010 Inactive Coumadin 6 mg Tab RxNorm: 998017 1 Tablet(s) PO 12/01/2009 12/02/2009 Inactive Coumadin 1 mg Tab RxNorm: 217563 1 Tablet(s) PO QD 11/28/2009 010 Inactive Coumadin 1 mg Tab RxNorm: 847334 1 Tablet(s) PO QD 07/02/2009 010 Inactive Flexeril 10 mg tablet RxNorm: 426465 1 Tablet(s) PO TID No Start Date Active spironolactone 25 mg tablet RxNorm: 157613 1 Tablet(s) PO QAM No Star t Date Active lisinopril-hydrochlorothiazide 20 mg-12.5 mg Tab RxNorm: 197 886 2 Tablet(s) PO QAM No Start Date 10/12/2010 Inactive Zofran ODT 4 mg disintegrating tablet RxNorm: 096533 1 Tablet(s) PO Q6H as needed for nausea No Start Date 09/14/2016 Inactive Wellbutrin XL 300 mg 24 hr Tab RxNorm: 713101 1 Tablet(s) PO QD No Start Date 02/02/2010 Inactive alprazolam 0.25 mg tablet RxNorm: 280038 1 Tablet(s) PO prior t o flight No Start Date 05/24/2017 Inactive hydrocodone-acetaminophen 5 mg-500 mg Tab RxNorm: 823590 1-2 Tablet(s) PO Q4H as needed for pain No Start Date 12/02/2010 Inactive Toprol XL 100 mg 24 hr Tab RxNorm: 975744 1 Tablet(s) PO QD No Star t Date 10/14/2013 Inactive Celebrex 200 mg capsule RxNorm: 787003 1 Capsule(s) PO QD No Start Date 05/22/2017 Inactive scopolamine 1 mg over 3 days transdermal patch RxNorm: 06163 2 1 TD take off in 72 hours. No Start Date 07/31/2017 Inactive OneTouch Ultra Test strips RxNorm: Test blood sugar daily No S tart Date 04/23/2018 Inactive Medrol (Dale) 4 mg tablets in a dose pack RxNorm: 702708 Tablet(s) PO As directed No Start Date 01/15/2014 Inactive Coumadin 5 mg Tab RxNorm: 048541 1 Tablet(s) PO QD No Start Date 06/19 Inactive Pepcid 40 mg Tab RxNorm: 507183 1 Tablet(s) PO QD No Start Date 06/23 Inactive prednisone 10 mg Tab RxNorm: 494158 1 Tablet(s) PO BID No Start Date 06/23/2010 Inactive spironolactone 25 mg tablet RxNorm: 244102 1 Tablet(s) PO QAM No St art Date 09/26/2018 Inactive scopolamine 1.5 mg 72 hr Transderm Patch RxNorm: 733742 TD Apply 1 patch behind ear every 72 hours, replace after 3 days. No Start Date 11/07/2012 Inacti ve azithromycin 250 mg Tab RxNorm: 106964 Tablet(s) PO 2 t abs on day one and one tab on days 2-5. (antibiotic) No Start Date 10/10/2011 Inactive Medrol (Dale) 4 mg Tabs in a Dose Pack RxNorm: 393609 1 Tablet(s) PO as directed. (steroid pack) No Start Date 10/10/2011 Inactive Lovenox 40 mg/0.4 mL subcutaneous syringe RxNorm: 309033 40 Mil ligram(s) SQ QD No Start Date 05/04/2018 Inactive Celebrex 200 mg capsule RxNorm: 206326 1 Capsule(s) PO BID as n eeded for pain No Start Date 01/13/2017 Inactive warfarin 1 mg tablet RxNorm: 884978 1 Tablet(s) PO As directed on Mon and Th No Start Date 08/10/2012 Inactive cefuroxime axetil 500 mg Tab RxNorm: 598769 1 Tablet(s) PO BID No S tart Date 06/13/2011 Inactive Lovenox 40 mg/0.4 mL subcutaneous syringe RxNorm: 957915 40 Mil ligram(s) SQ QD No Start Date 01/26/2018 Inactive Coumadin 5 mg tablet RxNorm: 159626 1 Tablet(s) PO QD No Start Date 0 08/13/2013 Inactive Medrol (Dale) 4 mg tablets in a dose pack RxNorm: 917961 Tablet(s) PO as directed No Start Date 01/17/2014 Inactive Coumadin 6 mg tablet RxNorm: 722480 1 Tablet(s) PO QD No Start Date 0 06/20/2016 Inactive warfarin 5 mg tablet RxNorm: 933296 1 Tablet(s) PO QD No Start Date 0 12/02/2011 Inactive Medrol (Dale) 4 mg Tabs in a Dose Pack RxNorm: 102659 Tablet(s) PO as directed No Start Date 06/23/2010 Inactive Flonase 50 mcg/actuation nasal spray,suspension RxNorm: 8963 23 2 Ovando NASAL BID No Start Date 12/05/2014 Inactive Pepcid 20 mg tablet RxNorm: 723966 1 Tablet(s) PO BID as needed No Start Date 11/02/2012 Inactive Medication Administered No Medication Administered data Immunizations No Immunization data Results Observation Observation Code Item Item Code Result Date S ervice Location MICROALBUMIN URINE RANDOM 77135 CREAT MG/D 139 MG/DL Unknown MICROALBUMIN URINE RANDOM 87199 CRE/100 1.39 G/L 12/20 Unknown Procedures Procedure Codes Date URINALYSIS NONAUTO W/O SCOPE CPT-4: 46907 09/27/2018 URINE CULTURE/ COLONY COUNT CPT-4: 49629 09/27/2018 URINALYSIS NONAUTO W/O SCOPE CPT-4: 37069 10/13/2017 URINE CULTURE/ COLONY COUNT CPT-4: 45667 10/13/2017 STREP A ASSAY W/OPTIC CPT-4: 92870 06/21/2016 STREP A ASSAY W/OPTIC CPT-4: 57773 06/24/2014 THER/PROPH/DIAG INJ SC/IM CPT-4: 05569 03/22/2014 METHYLPREDNISOLONE 40 MG INJ CPT-4: J1030 03/22/2014 TRIAMCINOLONE ACET INJ NOS CPT-4: J3301 03/22/2014 URINALYSIS NONAUTO W/O SCOPE CPT-4: 44105 10/19/2013 URINE CULTURE/ COLONY COUNT CPT-4: 54119 10/19/2013 CEFTRIAXONE SODIUM INJECTION CPT-4: J0696 03/02/2013 THER/PROPH/DIAG INJ SC/IM CPT-4: 98286 03/02/2013 CEFTRIAXONE SODIUM INJECTION CPT-4: J0696 03/01/2013 THER/PROPH/DIAG INJ SC/IM CPT-4: 23896 03/01/2013 THER/PROPH/DIAG INJ SC/IM CPT-4: 02497 03/01/2013 METHYLPREDNISOLONE 40 MG INJ CPT-4: J1030 03/01/2013 TRIAMCINOLONE ACET INJ NOS CPT-4: J3301 03/01/2013 MICROALBUMIN QUANTITATIVE CPT-4: 79281 01/11/2013 URINE CULTURE/ COLONY COUNT CPT-4: 00368 05/04/2012 URINALYSIS NONAUTO W/O SCOPE CPT-4: 19658 05/04/2012 URINE CULTURE/ COLONY COUNT CPT-4: 73412 05/29/2010 TRIAMCINOLONE ACET INJ NOS CPT-4: J3301 05/20/2010 METHYLPREDNISOLONE 40 MG INJ CPT-4: J1030 05/20/2010 THER/PROPH/DIAG INJ SC/IM CPT-4: 88406 05/20/2010 Vital Signs Date Vital 09/27/2018 Blood Pressure 1: 136/82 Code: 8480-6 Heart Rate 1: 68 bpm Respiratory Rate: 20 bpm SpO2: 96% Temperature: 36.6 (C) / 97.9 (F) We ight: 244 lbs 04/24/2018 Blood Pressure 1: 134/78 Code: 8480-6 BMI: 35.1 Code: 81227-3 Heart Rate 1: 76 bpm Height: 5'9" Respiratory Rate: 20 bpm Temperature: 36 .6 (C) / 97.8 (F) Weight: 238 lbs 12/27/2017 Blood Pressure 1: 126/64 Code: 8480-6 BMI: 34.7 Code: 74198-9 Heart Rate 1: 72 bpm Height: 5'9" Respiratory Rate: 20 bpm Temperature: 36 .8 (C) / 98.2 (F) Weight: 235 lbs 10/12/2017 Blood Pressure 1: 142/80 Code: 8480-6 BMI: 35.1 Code: 95619-2 Heart Rate 1: 98 bpm Height: 5'9" Respiratory Rate: 22 bpm SpO2: 100% Tempera ture: 36.5 (C) / 97.7 (F) Weight: 238 lbs 09/16/2017 Blood Pressure 1: 136/82 Code: 8480-6 BMI: 34.1 Code: 86267-0 Heart Rate 1: 82 bpm Height: 5'9" Respiratory Rate: 18 bpm SpO2: 96% Tempera ture: 36.3 (C) / 97.3 (F) Weight: 231 lbs 05/25/2017 Blood Pressure 1: 122/82 Code: 8480-6 BMI: 32.3 Code: 01650-2 Heart Rate 1: 116 bpm Height: 5'9" Respiratory Rate: 20 bpm SpO2: 98% Tempera ture: 35.6 (C) / 96.1 (F) Weight: 219 lbs 01/03/2017 Blood Pressure 1: 126/78 Code: 8480-6 BMI: 33.4 Code: 92224-7 Heart Rate 1: 72 bpm Height: 5'9" Respiratory Rate: 20 bpm Temperature: 36 .8 (C) / 98.2 (F) Weight: 226 lbs 09/23/2016 Blood Pressure 1: 126/82 Code: 8480-6 BMI: 33.8 Code: 64863-5 Heart Rate 1: 80 bpm Height: 5'9" Respiratory Rate: 20 bpm SpO2: 97% Tempera ture: 36.8 (C) / 98.2 (F) Weight: 229 lbs 09/03/2016 Blood Pressure 1: 188/64 Code: 8480-6 Bl ood Pressure 2: 166/92 Code: 8480-6 BMI: 34.4 Code: 80865-6 Heart Rate 1: 66 bpm Height: 5'9" Res piratory Rate: 20 bpm SpO2: 98% Temperature: 35.7 (C) / 96.2 (F) Weight: 233 lbs 07/08/2016 Blood Pressure 1: 134/82 Code: 8480-6 Heart Rate 1: 64 bpm Height: 5'9" Respiratory Rate: 20 bpm SpO2: 97% Temperature: 36.6 (C) / 97.8 (F) Weight: 06/21/2016 Blood Pressure 1: 112/68 Code: 8480-6 BMI: 33.8 Code: 16799-6 Heart Rate 1: 64 bpm Height: 5'9" Respiratory Rate: 20 bpm SpO2: 95% Tempera ture: 36.3 (C) / 97.3 (F) Weight: 229 lbs 02/23/2016 Blood Pressure 1: 128/78 Code: 8480-6 BMI: 33.4 Code: 17517-6 Heart Rate 1: 74 bpm Height: 5'9" [...] 1: 122/80 Code: 8480-6 BMI: 32.2 Code: 06496-6 Heart Rate 1: 80 bpm Height: 5'9" Respiratory Rate: 20 bpm Temperature: 37 .0 (C) / 98.6 (F) Weight: 218 lbs 08/09/2014 Blood Pressure 1: 132/84 Code: 8480-6 BMI: 33.1 Code: 05826-3 Heart Rate 1: 72 bpm Height: 5'9" Respiratory Rate: 20 bpm Temperature: 36 .7 (C) / 98.0 (F) Weight: 224 lbs 06/24/2014 Blood Pressure 1: 132/80 Code: 8480-6 BMI: 32.8 Code: 63227-9 Heart Rate 1: 68 bpm Height: 5'9" Respiratory Rate: 20 bpm Temperature: 36 .4 (C) / 97.6 (F) Weight: 222 lbs 03/22/2014 Blood Pressure 1: 128/84 Code: 8480-6 BMI: 32.5 Code: 64300-4 Heart Rate 1: 78 bpm Height: 5'9" Respiratory Rate: 22 bpm Temperature: 36 .0 (C) / 96.8 (F) Weight: 220 lbs 03/05/2014 Blood Pressure 1: 124/78 Code: 8480-6 BMI: 31.9 Code: 13577-4 Heart Rate 1: 82 bpm Height: 5'9" Respiratory Rate: 20 bpm Temperature: 35 .8 (C) / 96.4 (F) Weight: 216 lbs 01/16/2014 Blood Pressure 1: 116/68 Code: 8480-6 BMI: 33.8 Code: 65555-1 Heart Rate 1: 72 bpm Height: 5'7" Respiratory Rate: 20 bpm Temperature: 36 .6 (C) / 97.9 (F) Weight: 216 lbs 05/10/2013 Blood Pressure 1: 124/86 Code: 8480-6 BMI: 34.3 Code: 46158-7 Heart Rate 1: 84 bpm Height: 5'7" [...] 1: 116/84 Code: 8480-6 BMI: 33.1 Code: 69230-7 Heart Rate 1: 64 bpm Height: 5'9" Respiratory Rate: 20 bpm Temperature: 36 .4 (C) / 97.6 (F) Weight: 224 lbs 01/11/2013 Blood Pressure 1: 126/84 Code: 8480-6 BMI: 35.3 Code: 28743-4 Heart Rate 1: 68 bpm Height: 5'9" Respiratory Rate: 20 bpm Temperature: 36 .7 (C) / 98.1 (F) Weight: 239 lbs 11/03/2012 Blood Pressure 1: 104/70 Code: 8480-6 BMI: 34.4 Code: 07538-0 Heart Rate 1: 72 bpm Height: 5'9" Respiratory Rate: 20 bpm Temperature: 36 .8 (C) / 98.3 (F) Weight: 233 lbs 05/04/2012 Blood Pressure 1: 124 Code: 8480-6 BMI: 33.7 Code: 40165-5 Heart Rate 1: 84 bpm Height: 5'9" Temperature: 36.3 (C) / 97.3 (F) Weight: 228 lbs 10/11/2011 Blood Pressure 1: 110/70 Code: 8480-6 BMI: 33.7 Code: 25214-6 Heart Rate 1: 64 bpm Height: 5'9" Temperature: 36.8 (C) / 98.3 (F) Weight: 228 lbs 06/23/2011 Blood Pressure 1: 114/70 Code: 8480-6 BMI: 33.4 Code: 71539-5 Heart Rate 1: 80 bpm Height: 5'9" Respiratory Rate: 20 bpm Temperature: 36 .7 (C) / 98.0 (F) Weight: 226 lbs 06/14/2011 Blood Pressure 1: 118/ Code: 8480-6 BMI: 33.4 Code: 86548-5 Heart Rate 1: 80 bpm Height: 5'9" Temperature: 37.1 (C) / 98.7 (F) Weight: 226 lbs 12/02/2010 Temperature: 36.7 (C) / 98.0 (F) Weight: 225 lbs 11/12/2010 Blood Pressure 1: 128/86 Code: 8480-6 Heart Rate 1: 76 bpm Respiratory Rate: 20 bpm Temperature: 36.9 (C) / 98.4 (F) Weight: 223 lbs 10/26/2010 Blood Pressure 1: 12474 Code: 8480-6 Te mperature: 24.4 (C) / 76.0 (F) 10/13/2010 Blood Pressure 1: 126/82 Code: 8480-6 BMI: 32.6 Code: 03309-8 Heart Rate 1: 68 bpm Height: 5'9" [...] 1: 140/92 Code: 8480-6 BMI: 31.3 Code: 46416-4 Heart Rate 1: 60 bpm Height: 5'10" [...] upper back on 08/13/16 while camping around [place], [place]. Patient states is tender around tick [...] 01/22/2010 Encounters Encounter Performer Location Codes Date ([id number]) OFFICE/OUTPATIENT VISIT EST Diagnosis: Gastro-esophageal reflux disease without esophagitis[ICD10: K21.9] Diagnosis: Urinary tract infection, site not specified[ICD10: N39.0] Diagnosis: Ventral hernia without obstruction or gangrene[ICD10: K43.9] Jessica GEE DO [facility] CPT-4: 21781 09/27/2018 ([id number]) OFFICE/OUTPATIENT VISIT EST Diagnosis: Essential (primary) hypertension[ICD10: I10] Diagnosis: Type 2 diabetes mellitus without complications[ICD10: E11.9] Diagnosis: Carpal tunnel syndrome, right upper limb[ICD10: G56.01] Diagnosis: Primary insomnia[ICD10: F51.01] Jessica GEE [facility] CPT-4: 41659 04/24/2018 ([id number]) OFFICE/OUTPATIENT VISIT EST Diagnosis: Type 2 diabetes mellitus without complications[ICD10: E11.9] Diagnosis: Mixed hyperlipidemia[ICD10: E78.2] Diagnosis: Essential (primary) hypertension[ICD10: I10] Diagnosis: Pain in unspecified joint[ICD10: M25.50] Jessica GEE DO [facility] CPT-4: 74167 12/27/2017 ([id number]) NURSE/OUTPATIENT VISIT EST Diagnosis: Hematuria, unspecified[ICD10: R31.9] Jessica GEE [facility] CPT-4: 57080 10/13/2017 ([id number]) OFFICE/OUTPATIENT VISIT EST Diagnosis: Pleurodynia[ICD10: R07.81] Sofi SMITHLINE Monica CAMPUZANO [facility] CPT-4: 17422 10/12/2017 ([id number]) OFFICE/OUTPATIENT VISIT EST Diagnosis: Acute bronchitis, unspecified[ICD10: J20.9] Sofi SMITHLINE DomingaLloyd LUPILLO [facility] CPT-4: 97694 09/16/2017 ([id number]) OFFICE/OUTPATIENT VISIT EST Diagnosis: Other specified postprocedural states[ICD10: Z98.890] Diagnosis: Cellulitis of neck[ICD10: L03.221] Diagnosis: Tachycardia, unspecified[ICD10: R00.0] Jessica GEE [facility] CPT-4: 67184 05/25/2017 ([id number]) OFFICE/OUTPATIENT VISIT EST Diagnosis: Lumbago with sciatica, right side[ICD10: M54.41] Diagnosis: Pain in unspecified joint[ICD10: M25.50] Jessica GEE [facility] CPT-4: 26897 01/03/2017 ([id number]) OFFICE/OUTPATIENT VISIT EST Diagnosis: Bitten or stung by nonvenomous insect and other nonvenomous arthropods, subsequent encounter[ICD10: W57.XXXD] Diagnosis: Essential (primary) hypertension[ICD10: I10] Diagnosis: Low back pain[ICD10: M54.5] Jessica CARBAJAL [facility] CPT-4: 87515 09/23/2016 OFFICE/OUTPATIENT VISIT EST Diagnosis: Bitten or stung by nonvenomous insect and other nonvenomous arthropods, initial encounter[ICD10: W57.XXXA] Diagnosis: Essential (primary) hypertension[ICD10: I10] Kaitlynn Mosley JESSICA GEE [facility] CPT-4: 07176 09/03/2016 ([id number]) OFFICE/OUTPATIENT VISIT EST Diagnosis: Low back pain[ICD10: M54.5] Diagnosis: Radiculopathy, lumbosacral region[ICD10: M54.17] [facility] 95503 07/08/2016 ([id number]) OFFICE/OUTPATIENT VISIT EST Diagnosis: Acute pharyngitis, unspecified[ICD10: J02.9] Jessica GEE [facility] CPT-4: 33068 06/21/2016 ([id number]) OFFICE/OUTPATIENT VISIT EST Diagnosis: Cough[ICD10: R05] Diagnosis: Fever, unspecified[ICD10: R50.9] Janiya GEE [facility] CPT-4: 15495 02/23/2016 ([id number]) OFFICE/OUTPATIENT VISIT EST Diagnosis: Acute sinusitis, unspecified[ICD10: J01.90] Jessica GEE [facility] CPT-4: 62706 02/16/2016 OFFICE/OUTPATIENT VISIT EST Diagnosis: Type 2 diabetes mellitus without complications[ICD10: E11.9] Diagnosis: Gastro-esophageal reflux disease without esophagitis[ICD10: K21.9] Diagnosis: Ventral hernia without obstruction or gangrene[ICD10: K43.9] Suki GEE DO [facility] CPT-4: 30710 02/11/2015 OFFICE/OUTPATIENT VISIT EST 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] Diagnosis: Essential (primary) hypertension[ICD10: I10] Suki GEE [facility] CPT-4: 75423 01/28/2015 OFFICE/OUTPATIENT VISIT EST Diagnosis: SINUSITIS, ACUTE[ICD9: 461.9] Kaitlynn GEE [facility] CPT-4: 60496 12/06/2014 ([id number]) OFFICE/OUTPATIENT VISIT EST Diagnosis: SINUSITIS, ACUTE[ICD9: 461.9] Kaitlynn GEE [facility] CPT-4: 39909 08/09/2014 ([id number]) OFFICE/OUTPATIENT VISIT EST Diagnosis: TONSILLITIS, ACUTE[ICD9: 463] Suki GEE DO [facility] CPT-4: 91844 06/24/2014 OFFICE/OUTPATIENT VISIT EST Diagnosis: SINUSITIS, ACUTE[ICD9: 461.9] Diagnosis: EUSTACHIAN TUBE DYSFUNCTION[ICD9: 381.81] Diagnosis: COUGH[ICD9: 786.2] Suki GEE [facility] CPT-4: 04953 03/22/2014 OFFICE/OUTPATIENT VISIT EST Diagnosis: Elbow pain, right[ICD9: 719.42] Suki GEE [facility] CPT-4: 51408 03/05/2014 OFFICE/OUTPATIENT VISIT EST Diagnosis: SINUSITIS, ACUTE[ICD9: 461.9] Jessica GEE DO [facility] CPT-4: 81198 01/16/2014 ([id number]) OFFICE/OUTPATIENT VISIT EST Diagnosis: GROSS HEMATURIA[ICD9: 599.71] Jessica GEE DO [facility] CPT-4: 74455 10/19/2013 ([id number]) OFFICE/OUTPATIENT VISIT EST Diagnosis: DM W/O COMPLICATION TYPE II[ICD9: 250.00] Diagnosis: HYPERLIPIDEMIA NEC/NOS[ICD9: 272.4] Jessica GEE DO [facility] CPT-4: 47298 05/10/2013 ([id number]) OFFICE/OUTPATIENT VISIT EST Diagnosis: SINUSITIS, ACUTE[ICD9: 461.9] Jessica GEE DO [facility] CPT-4: 50336 04/17/2013 OFFICE/OUTPATIENT VISIT EST Diagnosis: OTITIS MEDIA NOS[ICD9: 382.9] Diagnosis: COUGH[ICD9: 786.2] Suki GEE DO [facility] CPT-4: 02595 03/05/2013 OFFICE/OUTPATIENT VISIT EST Diagnosis: COUGH[ICD9: 786.2] Diagnosis: BRONCHITIS, ACUTE[ICD9: 466.0] Suki GEE DO [facility] CPT-4: 58575 03/02/2013 OFFICE/OUTPATIENT VISIT EST Diagnosis: COUGH[ICD9: 786.2] Diagnosis: OTITIS MEDIA NOS[ICD9: 382.9] Diagnosis: BRONCHITIS, ACUTE[ICD9: 466.0] Suki GEE DO [facility] CPT-4: 72369 03/01/2013 OFFICE/OUTPATIENT VISIT EST Diagnosis: DM W/O COMPLICATION TYPE II, UNCONTROLLED[ICD9: 250.02] Jessica GEE DO [facility] CPT-4: 33406 02/22/2013 ([id number]) PREV VISIT EST AGE 40-64 Diagnosis: DM W/O COMPLICATION TYPE II, UNCONTROLLED[ICD9: 250.02] Diagnosis: HYPERTENSION[ICD9: 401.9] Diagnosis: ROUTINE MEDICAL EXAM[ICD9: V70.0] [facility] CPT-4: 05172 01/11/2013 OFFICE/OUTPATIENT VISIT EST Diagnosis: HZ (HERPES ZOSTER)[ICD9: 053.9] Kaitlynn MaloneyMyrna [facility] C[facility]: 89081 11/03/2012 OFFICE/OUTPATIENT VISIT EST Diagnosis: URINARY TRACT INFECTION[ICD9: 599.0] Diagnosis: GERD[ICD9: 530.81] Diagnosis: PHARYNGITIS, ACUTE[ICD9: 462] [facility]: 92915 05/04/2012 OFFICE/OUTPATIENT VISIT EST Diagnosis: COUGH[ICD9: 786.2] Diagnosis: SINUSITIS, ACUTE[ICD9: 461.9] Diagnosis: PHARYNGITIS, ACUTE[ICD9: 462] Jessica Mccormick [facility]: 52454 10/11/2011 OFFICE/OUTPATIENT VISIT EST Diagnosis: COUGH[ICD9: 786.2] Diagnosis: SINUSITIS, ACUTE[ICD9: 461.9] Diagnosis: PHARYNGITIS, ACUTE[ICD9: 462] Diagnosis: ALLERGIC RHINITIS[ICD9: 477.9] Xiomara Rodriguez JESSICA [facility] CPT-4: 35290 06/23/2011 OFFICE/OUTPATIENT VISIT EST Diagnosis: COUGH[ICD9: 786.2] Diagnosis: SINUSITIS, ACUTE[ICD9: 461.9] Diagnosis: PHARYNGITIS, ACUTE[ICD9: 462] [facility]: 22280 06/14/2011 OFFICE/OUTPATIENT VISIT EST Diagnosis: SINUSITIS, ACUTE[ICD9: 461.9] Diagnosis: PHARYNGITIS, ACUTE[ICD9: 462] [facility]: 98628 12/02/2010 OFFICE/OUTPATIENT VISIT EST Diagnosis: HYPERTENSION[ICD9: 401.9] Diagnosis: HYPERLIPIDEMIA NEC/NOS[ICD9: 272.4] Diagnosis: DERMATITIS NOS[ICD9: 692.9] Jessicaabner Gee [facility] CPT-4: 34249 11/12/2010 OFFICE/OUTPATIENT VISIT EST Jessica Anderson [facility] CPT- 4: 54654 10/13/2010 ([id number]) OFFICE/OUTPATIENT VISIT EST Jessica HARKINS [facility] CPT-4: 40476 06/24/2010 ([id number]) OFFICE/OUTPATIENT VISIT EST Jessica [facility]INS [facility] CPT-4: 61854 06/08/2010 ([id number]) OFFICE/OUTPATIENT VISIT EST Xiomara VO S [facility] CPT-4: 80110 05/20/2010 ([id number]) OFFICE/OUTPATIENT VISIT EST Jessica HARKINS [facility] CPT-4: 33655 04/30/2010 ([id number]) OFFICE/OUTPATIENT VISIT, EST Jessica MANZANO SLloyd [facility] CPT-4: 96704 01/22/2010 Plan of Care Planned Activity Notes Codes Status Date Visit Diagnosis Plan: Urinary tract infection, site [...] : K21.9 09/27/2018 [facility]ment[facility] [phone] [id number] [facility] 09/27/2018 Visit Diagnosis Plan: Carpal [...] F51.01 04/24/2018 Appointment: Jessica Gee WPtel: [phone] [id number] ACUTE ILLNESS 04/24/2018 Patient Education: celecoxib- [employer] [id number] Completed 04/24/2018 Patient Education: amitriptyline- [employer] [id number] Completed 04/24/2018 Visit Diagnosis Plan: Type 2 [...] M25.50 12/27/2017 Appointment: Jessica Gee WPtel: [phone] [id number] [place] 12/27/2017 Patient Education: Patient Medication Summary Completed 12/27/2017 Patient Education: Patient Medication Summary Completed 12/19/2017 Care Plan: MAMMOGRAM BOTH BREASTS LOINC : 18559-0 Pending 12/19/2017 Patient Education: Patient Medication Summary Completed 12/16/2017 Care Plan: ASSAY THYROID STIM HORMONE Pen ding 12/16/2017 Care Plan: ASSAY OF FREE THYROXINE Pendin g 12/16/2017 Care Plan: LIPID PANEL LOINC : 15133-2 Pending 12/16/2017 Care Plan: CBC Pending 12/16/2017 Care Plan: A1C HPLC LOINC : 04707-9 Pending 12/16/2017 Patient Education: Patient Medication Summary Completed 10/17/2017 Care Plan: CT ANGIOGRAPHY CHEST LOINC : 49444-7 Pending 10/17/2017 Patient Education: Patient Medication Summary Completed 10/14/2017 Care Plan: CT ANGIOGRAPHY CHEST LOINC : 38953-3 Pending 10/14/2017 Appointment: Jessica Gee WPtel: [phone] [id number] UA 10/13/2017 Patient Education: Patient Medication Summary [...] : R07.81 10/12/2017 Appointment: Sofi Gresham [address] [place] [address] ACUTE ILLNESS 10/12/2017 Patient Education: Patient Medication [...] 09/16/2017 Appointment: Sofi Gresham 504 [facility] ACUTE ILLNESS 09/16/2017 Patient Education: Patient Medication Summary Completed 09/16/2017 Appointment: Jessica Gee WPtel: [phone] [id number] US CANCELED 08/10/2017 Visit Diagnosis Plan: Cellulitis [...] R00.0 05/25/2017 Appointment: Jessica Gee WPtel: [phone] [id number] FOLLOW UP 05/25/2017 Patient Education: Patient Medication Summary Completed 05/25/2017 Visit Diagnosis Plan: Lumbago with sciatica, right britton e Discussion: Check arthritis panel Patient awaiting neck surgery before surgery will consider back surgery ICD-9 : 724.2 ICD-10 : M54.41 01/03/2017 Appointment: [facility]el[id number] [facility] 01/03/2017 Patient Education: Patient Medication Summary Completed 01/03/2017 Patient Education: Patient Medication Summary Completed 12/16/2016 Care Plan: MAMMOGRAM SCREENING LOINC : 2 6347-5 Pending 12/16/2016 Patient Education: Patient Medication Summary Completed 10/07/2016 Care Plan: MRI LUMBAR SPINE W/O & W/DYE LOINC : 47422-9 Pending 10/07/2016 Visit Diagnosis Plan: Essential (primary) [...] : W57.XXXD 09/23/2016 Appointment: Jessica Gee WPtel: [address] [place] [address] 09/22 confirmed WORK IN 09/23/2016 Patient Education: Patient Medication Summary Completed 09/23/2016 Visit Plan: Tick panel at [facility] Increa se spironolactone to 2 po am (New Rx sent) Take B/P at home/work and also come to office next week for recheck Will await lab results before starting any antibiotic 09/03/2016 Appointment: Kaitlynn Mosley WPtel: [address] [place] [address] ACUTE ILLNESS 09/03/2016 Patient Education: Patient Medication Summary Completed 09/03/2016 Visit Diagnosis Plan: Low back pain Discussion: Celebr ex BID PT Continue stretches at home L/S xray Follow Up: 1 months ICD-9 : 724.2 ICD-10 : M54.5 07/08/2016 Appointment: Jessica Gee WPtel: [address] [place], [place] [id number] ACUTE ILLNESS 07/08/2016 Patient Education: Patient Medication Summary Completed 07/08/2016 Care Plan: X-RAY EXAM L-S SPINE 2/3 VWS LOINC : 71746-1 Pending 07/08/2016 Visit Plan: Supportive care. Rest, Fluid s, Tylenol/Motrin prn fever or bodyaches. Notify if worsening symptoms.New toothebrush in 5 days 06/21/2016 Visit NOS Plan: Plan Notes: Supportive care. Rest, Fluids... 06/21/2016 Visit Diagnosis Plan: Acute pharyngitis, unspecified D iscussion: Strep Negative Supportive Care May use zyrtec 10mg q HS ICD-9 : 462 ICD-10 : J02.9 06/21/2016 Appointment: Jessica Gee WPtel: [address] [place], [place] [id number] ACUTE ILLNESS 06/21/2016 Patient Education: Patient Medication Summary Completed 06/21/2016 Visit Plan: No pulseox last week to comp are to today, but she does sound diminished today Studies as above ordered Continue cefdinir until results received Increase albuterol treatments to q4-6hrs PRN Continue supportive care 02/23/2016 Appointment: Janiya Gregorio [address] [place], [place] [id number] ACUTE ILLNESS 02/23/2016 Patient Education: Patient Medication Summary Completed 02/23/2016 Care Plan: CHEST X-RAY 2VW FRONTAL&LATL LOINC : 16507-0 Pending 02/23/2016 Visit Plan: Saline nasal flushes prn. Ty lenol/Motrin prn headache. Notify if persists/symptoms worsening. 02/16/2016 Appointment: Jessica Gee WPtel: [address] [place] [address] ACUTE ILLNESS 02/16/2016 Patient Education: Patient Medication Summary Completed 02/16/2016 Visit Plan: Discussed labs Continue Topr ol at 200 mg PO daily Increase Aciphex to BID Notify if increase of Aciphex does not give relief. Repeat PT/INR in 2 weeks. 02/11/2015 Appointment: Suki Barahona WPtel: [address] [place], [place] [phone] 02/10 confirmed ~sl FOLLOW UP 02/11/2015 Patient Education: Patient Medication Summary Completed 02/11/2015 Patient Education: Patient Medication Summary Completed 02/06/2015 Care Plan: POC PROTIME/INR LOINC : 65529 -6 Pending 02/06/2015 Visit Plan: Increase Toprol XL 200 mg to one full tablet daily (is currently taking only 1/2 tablet) To for EKG today Monitor daily BP Notify of any changes- increased numbness, weakness, headache etc. 01/28/2015 Appointment: Suki Barahona WPtel: [address] [place], [place] [phone] ACUTE ILLNESS 01/28/2015 Patient Education: Patient Medication Summary Completed 01/28/2015 Visit Plan: ERx Amoxicillin and Flonase Nasal saline, humidified air Facial heat or cold packs for comfort Increase fluids/rest Discussed s/s of worsening, go to over weekend if these occur. 12/06/2014 Appointment: Kaitlynn Mosley WPtel: [address] [place] [address] ACUTE ILLNESS 12/06/2014 Patient Education: Patient Medication Summary Completed 12/06/2014 Appointment: Kaitlynn Mosley WPtel: [address] [place] [address] ACUTE ILLNESS 08/09/2014 Patient Education: Patient Medication Summary Completed 08/09/2014 Appointment: Suki Barahona WPtel: [address] [place], [place] [id number] ACUTE ILLNESS 06/24/2014 Patient Education: Patient Medication Summary Completed 06/24/2014 Appointment: Suki Barahona WPtel: [address] [place] [address] ACUTE ILLNESS 03/22/2014 Patient Education: Patient Medication Summary Completed 03/22/2014 Patient Education: [employer] - Antibi otics, Analgesics 18+, Oral Contraceptives F 18+ Completed 03/22/2014 Appointment: Suki Barahona WPtel: [address] [place] [address] FOLLOW UP 03/05/2014 Patient Education: Patient Medication Summary Completed 03/05/2014 Visit Plan: Saline nasal flushes prn. Ty lenol/Motrin prn headache. Notify if persists/symptoms worsening. Restart flonase 01/16/2014 Appointment: Jessica Gee WPtel: [address] [place] [address] ACUTE ILLNESS 01/16/2014 Patient Education: Patient Medication Summary Completed 01/16/2014 Appointment: Jessica Gee WPtel: [address] [place] [address] 10/19/2013 Patient Education: Patient Medication Summary Completed 10/19/2013 Appointment: Jessica Gee WPtel: [address] [place] [address] 08/08 patient canceled appt and said will call back to angela [facility] FOLLOW UP 08/09/2013 Visit Plan: Increase Coumadin to 6mg M-F and stay on 5mg Sat, Sun Add lipids to labs Check PT/INR in 3wks Continue metfromin at current dose and accuchecks 05/10/2013 Appointment: Jessica Gee WPtel: [address] [place], [place] [phone] 05/09 FOLLOW UP 05/10/2013 Patient Education: Patient Medication Summary Completed 05/10/2013 Visit Plan: Saline nasal flushes prn. Ty lenol/Motrin prn headache. Notify if persists/symptoms worsening. 04/17/2013 Appointment: Jessica Gee WPtel: [address] [place] [address] ACUTE ILLNESS 04/17/2013 Patient Education: Patient Medication Summary Completed 04/17/2013 Appointment: Suki Barahona WPtel: [address] [place] [address] FOLLOW UP 03/05/2013 Patient Education: Patient Medication Summary Completed 03/05/2013 Appointment: Suki Barahona WPtel: [address] [place] [address] FOLLOW UP 03/02/2013 Patient Education: Patient Medication Summary Completed 03/02/2013 Appointment: Suki Barahona WPtel: [address] [place] [address] ACUTE ILLNESS 03/01/2013 Patient Education: Patient Medication Summary Completed 03/01/2013 Visit Plan: Continue metformin and accuc hecks Add fish oil 1gram daily Check HbA1C, CMP in 2mos then fwup 02/22/2013 Appointment: Jessica Gee WPtel: [address] [place], [place] [phone] 02/21 work vm FOLLOW UP 02/22/2013 Patient Education: Patient Medication Summary Completed 02/22/2013 Visit Plan: Start Metformin Start Accuch ecks daily alternating times Will go for dilated eye exam once BS more stabilized Diabetic foot care discussed Diabetic diet info given 01/11/2013 Appointment: Jessica Gee WPtel: [address] [place] [address] FOLLOW UP 01/11/2013 Patient Education: Patient Medication Summary Completed 01/11/2013 Appointment: Kaitlynn Mosley WPtel: [address] [place] [address] ACUTE ILLNESS 11/03/2012 Patient Education: Patient Medication Summary Completed 11/03/2012 Appointment: Xiomara Rodriguez WPtel: [address] [place] [address] ACUTE ILLNESS 05/04/2012 Patient Education: Patient Medication Summary Completed 05/04/2012 Visit Plan: pt reports that she always g ets yeast infections. Discussed that the antifungal can cause problems/increased bleeding with Coumdin. Pt. will start with probiotics and only take the Diflucan if needed. Cefdinir. 10/11/2011 Appointment: Xiomara Rodriguez WPtel: [address] [place] [address] ACUTE ILLNESS 10/11/2011 Patient Education: Patient Medication Summary Completed 10/11/2011 Appointment: Xiomara Rodriguez WPtel: [address] [place] [address] FOLLOW UP 06/23/2011 Patient Education: Patient Medication Summary Completed 06/23/2011 Visit Plan: Will prescribe an antibiotic and diflucan. Pt. reports that she frequently gets yeast infection. Discussed that she will notify if any symptoms persist. Pt. reports that her relatives have recently been hospitalized with pneumonia. 06/14/2011 Appointment: Xiomara Rodriguez WPtel: [address] [place] [address] ACUTE ILLNESS 06/14/2011 Patient Education: Patient Medication Summary Completed 06/14/2011 Visit Plan: sample of veramyst. Cefuroxi me axetil. Pt. will focus on hydration and rest. Discussed comfort measures and monitoring for worsening symptoms. 12/02/2010 Appointment: Xiomara Rodriguez WPtel: [address] [place] [address] ACUTE ILLNESS 12/02/2010 Patient Education: Patient Medication Summary Completed 12/02/2010 Visit Plan: Change HCTZ to spironolacton e will start zocor in 1 mo BP med in 1mo 11/12/2010 Appointment: Jessica Gee WPtel: [address] [place] [address] FOLLOW UP 11/12/2010 Patient Education: Patient Medication Summary Completed 11/12/2010 Appointment: Jessica Gee WPtel: [address] [place] [address] BP CHECK 10/26/2010 Patient Education: Patient Medication Summary Completed 10/26/2010 Visit Plan: Continue Toprol at bedtime A dd HCTZ in AM BP check in 2wks Fasting lab with next PT/INR 10/13/2010 Appointment: Jessica Gee WPtel: [address] [place] [address] FOLLOW UP 10/13/2010 Patient Education: Patient Medication Summary Completed 10/13/2010 Visit Plan: Cont abx. Fwup with surgery as scheduled 06/24/2010 Appointment: Jessica Gee WPtel: [address] [place] [address] Follow Up 06/24/2010 Patient Education: Patient Medication Summary Completed 06/24/2010 Appointment: Jessica Gee WPtel: [address] [place] [address] Follow Up 06/22/2010 Visit Plan: pt is [...] to subside. 06/08/2010 Appointment: Xiomara Rodriguez WPtel: [address] [place], [place] [phone] ACUTE ILLNESS 06/08/2010 Patient Education: Patient Medication Summary Completed 06/08/2010 Appointment: Xiomara Rodriguez WPtel: [address] [place] [address] FOLLOW UP 06/01/2010 Appointment: Jessica Gee WPtel: [address] [place] [address] 05/29/2010 Patient Education: Patient Medication Summary Completed 05/29/2010 Appointment: Xiomara Rodriguez WPtel: [address] [place] [address] ACUTE ILLNESS 05/20/2010 Patient Education: Patient Medication Summary Completed 05/20/2010 Appointment: Jessica Gee WPtel: [address] [place] [address] BP CHECK 05/13/2010 Patient Education: Patient Medication Summary Completed 05/13/2010 Visit Plan: Increase Lisinopril hct to 2 0/12.5mg q AM Use atarax prn and routinely at bedtime and Medrol dose pack BP check in 3wks Pt defers stress test at this time 04/30/2010 Appointment: Jessica Gee WPtel: [address] [place] [address] ACUTE ILLNESS 04/30/2010 Patient Education: Patient Medication Summary Completed 04/30/2010 Appointment: Jessica Gee WPtel: [address] [place] [address] BP CHECK 02/27/2010 Patient Education: Patient Medication Summary Completed 02/27/2010 Visit Plan: Cont Toprol Add Altace 10mg QD Cont Wellbutrin Will likely add SSRI after BP stable BP check in 2wks 01/22/2010 Appointment: Jessica Gee WPtel: [address] [place] [address] ACUTE ILLNESS 01/22/2010 Patient Education: Patient Medication Summary Completed 01/22/2010 Referral: Rupa Raines WPtel: [address] [id number] [place] Referral Completed Referral: Neymar Alberts [facility]el[facility] [address] [facility] [place] Referral Initiated Instructions Comment . Tick panel at [facility] Increase spironolactone to 2 po [...]
--- OUTSIDE RECORDS SUMMARY | 2019-09-10 03:15 | XMS REPORT | CCD ---
Author Author Nava Gee D.O. Organization [facility] Address [address] [place] [address] Phone Care Team Providers Care Electron Microscopist Name Role Phone Jessica Gee D.O., PP Unavailable CCM Unavailable Summary Purpose Interface Exchange Insurance Providers Payer name Policy type / Coverage type Covered republican ID Effective Begin Date Effective End Date Blue Cross Blue Shield Blue Cross/Blue Shield [id number] Unknown Family History Family History data not found Social History Social History Element Codes Description Effective Dates Tobacco history SNOMED CT: 822360432 Never smoker 10/13/2010 Allergies, Adverse Reactions, Alerts [...] findings ICD-9: V70.0 ICD-10: Z00.00 12/16/2017 Active [facility] (current) use of anticoagulants ICD-9: V58.6 1 [...] BY MOUTH TWICE DAILY 03/19/2019 05/17/2019 Active Coumadin 5 mg tablet RxNorm: 129299 TAKE 1 TABLET BY MOUTH ONCE DAILY 02/28/2019 No Stop Date Active warfarin 1 mg tablet RxNorm: 239846 TAKE 1 TABLET BY MO UT ONCE DAILY. TAKE AN ADDITIONAL TABLET ON TUESDAY AND Tuesday02/28/2019 No Stop Date Active omeprazole 40 mg capsule,delayed release RxNorm: 293077 TAKE 1 CAPSULE BY MOUTH TWICE DAILY 02/19/2019 No Stop Date Active metformin ER 500 mg tablet,extended release 24 hr RxNorm: 86 0975 1 Tablet(s) PO BID 02/19/2019 03/18/2019 Inactive metformin ER 500 mg tablet,extended release 24 hr RxNorm: 86 0975 1 Tablet(s) PO BID 01/15/2019 02/13/2019 Inactive alprazolam 0.25 mg tablet RxNorm: 231364 1 Tablet(s) Oral prior to flight 01/03/2019 No Stop Date Active omeprazole 40 mg capsule,delayed release RxNorm: 943836 TAKE 1 CAPSULE BY MOUTH TWICE DAILY 12/20/2018 02/18/2019 Inactive pravastatin 40 mg tablet RxNorm: 353550 TAKE 1 TABLET BY MOUTH ONCE DAILY 12/11/2018 No Stop Date Active metformin ER 500 mg tablet,extended release 24 hr RxNorm: 86 0975 1 Tablet(s) PO BID 12/11/2018 01/09/2019 Inactive Coumadin 5 mg tablet RxNorm: 513308 1 Tablet(s) PO QD 11/27/201809/2018 Inactive metformin ER 500 mg tablet,extended release 24 hr RxNorm: 86 0975 1 Tablet(s) PO BID 10/02/2018 11/30/2018 Inactive warfarin 1 mg tablet RxNorm: 510550 TAKE 1 TABLET BY [facility] ONCE DAILY. TAKE AN ADDITIONAL TABLET ON TUESDAY AND Tuesday10/02/2018 02/27/2019 Inactiv e warfarin 5 mg tablet RxNorm: 595128 1 Tablet(s) PO QD 09/27/201810/2018 Inactive Bactrim DS 800 mg-160 mg tablet RxNorm: 245094 1 Tablet(s) PO BID 0 09/27/2018 10/03/2018 Inactive Toprol XL 200 mg tablet,extended release RxNorm: 424659 1 Table t(s) PO QD 09/18/2018 03/16/2019 Inactive omeprazole 40 mg capsule,delayed release RxNorm: 221036 TAKE 1 CAPSULE BY MOUTH TWICE DAILY 09/11/2018 12/19/2018 Inactive Coumadin 5 mg tablet RxNorm: 955940 1 Tablet(s) PO QD 08/21/201811/2018 Inactive metformin ER 500 mg tablet,extended release 24 hr RxNorm: 86 0975 1 Tablet(s) PO BID 07/31/2018 09/28/2018 Inactive omeprazole 40 mg capsule,delayed release RxNorm: 432096 TAKE 1 CAPSULE BY MOUTH TWICE DAILY 06/27/2018 09/10/2018 Inactive metformin ER 500 mg tablet,extended release 24 hr RxNorm: 86 0975 Tablet(s) 1 Tablet(s) PO BID 06/27/2018 07/31/2018 Inactive Toprol XL 200 mg tablet,extended release RxNorm: 659882 1 Table t(s) PO QD 06/14/2018 09/17/2018 Inactive Coumadin 5 mg tablet RxNorm: 984199 1 Tablet(s) PO QD 06/14/201804/2018 Inactive metformin ER 500 mg tablet,extended release 24 hr RxNorm: 86 0975 Tablet(s) 1 Tablet(s) PO BID 05/22/2018 06/26/2018 Inactive Coumadin 5 mg tablet RxNorm: 770612 TAKE 1 TABLET BY MOUTH ONCE DAILY 05/11/2018 06/14/2018 Inactive Lovenox 40 mg/0.4 mL subcutaneous syringe RxNorm: 655220 40 Mil ligram(s) SQ QD 05/05/2018 09/26/2018 Inactive amitriptyline 25 mg tablet RxNorm: 749882 1 Tablet(s) PO QHS fo r sleep/HAs 04/24/2018 10/20/2018 Inactive OneTouch Ultra Test strips RxNorm: Test blood sugar sigrid y (Dx:E11.65) 04/24/2018 No Stop Date Active celecoxib 200 mg capsule RxNorm: 132681 1 Capsule(s) PO BID 019 10/20/2018 Inactive Celebrex 200 mg capsule RxNorm: 245817 TAKE 1 CAPSULE BY MOUTH ONCE DAILY 04/19/2018 04/23/2018 Inactive warfarin 1 mg tablet RxNorm: 753197 1 Tablet(s) PO QD a nd additional tablet on Mon & Th04/14/2018 10/01/2018 Inactive Toprol XL 200 mg tablet,extended release RxNorm: 327515 TAKE 1 TABLET BY MOUTH ONCE DAILY 04/11/2018 06/14/2018 Inactive metformin ER 500 mg tablet,extended release 24 hr RxNorm: 86 0975 Tablet(s) 1 Tablet(s) PO BID 03/17/2018 05/21/2018 Inactive Coumadin 5 mg tablet RxNorm: 565057 TAKE 1 TABLET BY MOUTH ONCE DAILY 03/15/2018 05/10/2018 Inactive Lovenox 40 mg/0.4 mL subcutaneous syringe RxNorm: 481334 40 Mil ligram(s) SQ QD 01/27/2018 04/11/2018 Inactive omeprazole 40 mg capsule,delayed release RxNorm: 559441 TAKE 1 CAPSULE BY MOUTH TWICE DAILY 01/23/2018 06/26/2018 Inactive pravastatin 40 mg tablet RxNorm: 408185 TAKE 1 TABLET BY MOUTH ONCE DAILY 01/23/2018 12/10/2018 Inactive metformin ER 500 mg tablet,extended release 24 hr RxNorm: 86 0975 Tablet(s) 1 Tablet(s) PO BID 01/16/2018 01/15/2018 Inactive Toprol XL 200 mg tablet,extended release RxNorm: 147789 TAKE 1 TABLET BY MOUTH ONCE DAILY 01/16/2018 04/10/2018 Inactive Coumadin 5 mg tablet RxNorm: 146422 TAKE 1 TABLET BY MOUTH ONCE DAILY 01/06/2018 03/14/2018 Inactive Celebrex 200 mg capsule RxNorm: 897471 1 Capsule(s) PO BID 12/28/19 18 03/26/2018 Inactive metformin ER 500 mg tablet,extended release 24 hr RxNorm: 86 0975 1 Tablet(s) PO BID Needs APPT 12/21/2017 01/16/2018 Inactive omeprazole 40 mg capsule,delayed release RxNorm: 463719 TAKE 1 CAPSULE BY MOUTH TWICE DAILY 11/02/2017 01/22/2018 Inactive Celebrex 200 mg capsule RxNorm: 571696 1 Capsule(s) PO QD 11/01/2017 12/26/2017 Inactive Coumadin 5 mg tablet RxNorm: 472307 Tablet(s) TAKE ONE TABLET BY MOUTH ONCE DAILY. 10/31/2017 12/29/2017 Inactive warfarin 1 mg tablet RxNorm: 120755 1 Tablet(s) PO QD 10/31/201703/22 Inactive spironolactone 25 mg tablet RxNorm: 748476 TAKE TWO TAB LETS BY MOUTH IN THE MORNING 10/31/2017 04/23/2018 Inactive metformin ER 500 mg tablet,extended release 24 hr RxNorm: 86 0975 1 Tablet(s) PO BID Needs updated fasting lab 10/20/2017 12/21/2017 Inactive Medrol (Dale) 4 mg tablets in a dose pack RxNorm: 646851 Tablet(s) PO take as directed 10/12/2017 12/15/2017 Inactive Celebrex 200 mg capsule RxNorm: 791548 1 Capsule(s) PO QD 10/03/2017 10/02/2017 Inactive spironolactone 25 mg tablet RxNorm: 873165 TAKE TWO TAB LETS BY MOUTH IN THE MORNING 09/19/2017 10/30/2017 Inactive Zithromax Z-Dale 250 mg tablet RxNorm: 073228 Tablet(s) PO take as directed 09/16/2017 10/11/2017 Inactive Medrol (Dale) 4 mg tablets in a dose pack RxNorm: 042612 Tablet(s) take as directed PO 09/16/2017 10/11/2017 Inactive doxycycline hyclate 100 mg tablet RxNorm: 6613036 1 Tablet(s) PO BI D 09/16/2017 09/15/2017 Inactive doxycycline hyclate 100 mg tablet RxNorm: 7804316 1 Tablet(s) PO BI D 09/16/2017 09/25/2017 Inactive Sujata Perles 100 mg capsule RxNorm: 383083 1 Capsule(s) PO T ID as needed 09/16/2017 12/15/2017 Inactive warfarin 1 mg tablet RxNorm: 774595 1 Tablet(s) PO QD 09/06/201710/19 Inactive Coumadin 5 mg tablet RxNorm: 165511 Tablet(s) TAKE ONE TABLET BY MOUTH ONCE DAILY. 09/06/2017 10/31/2017 Inactive Toprol XL 200 mg tablet,extended release RxNorm: 316256 1 Table t(s) PO QD 2017 01/02/2018 Inactive warfarin 1 mg tablet RxNorm: 839859 1 Tablet(s) PO QD DUE FOR L ABS AUGUST 12 08/29/2017 09/06/2017 Inactive Coumadin 5 mg tablet RxNorm: 149596 Tablet(s) TAKE ONE TABLET BY MOUTH ONCE DAILY. DUE FOR PT/INR AUGUST 12 08/29/2017 09/06/2017 Inactive Coumadin 5 mg tablet RxNorm: 464485 Tablet(s) TAKE ONE TABLET BY MOUTH ONCE DAILY. DUE FOR PT/INR AUGUST 12 08/01/2017 08/29/2017 Inactive warfarin 1 mg tablet RxNorm: 104307 1 Tablet(s) PO QD DUE FOR L ABS AUGUST 12 08/01/2017 08/29/2017 Inactive scopolamine 1 mg over 3 days transdermal patch RxNorm: 48377 2 1 TD take off in 72 hours. 08/01/2017 12/26/2017 Inactive pravastatin 40 mg tablet RxNorm: 280051 Tablet(s) TAKE ONE TABLET BY MOUTH ONCE DAILY 07/07/2017 01/02/2018 Inactive Coumadin 5 mg tablet RxNorm: 999091 Tablet(s) TAKE ONE TABLET BY MOUTH ONCE DAILY. DUE FOR PT/INR. 06/29/2017 08/01/2017 Inactive warfarin 1 mg tablet RxNorm: 818611 1 Tablet(s) PO QD 06/29/201707/19 Inactive Coumadin 5 mg tablet RxNorm: 630310 TAKE ONE TABLET BY MOUTH ONCE DAILY. DUE FOR PT/INR. 05/30/2017 06/29/2017 Inactive omeprazole 40 mg capsule,delayed release RxNorm: 800866 1 Capsu le(s) PO BID 05/30/2017 08/27/2017 Inactive Celebrex 200 mg capsule RxNorm: 744579 1 Capsule(s) PO QD 05/23/2017 10/03/2017 Inactive metformin ER 500 mg tablet,extended release 24 hr RxNorm: 86 0975 TAKE ONE TABLET BY MOUTH TWICE DAILY 05/20/2017 10/20/2017 Inactive Coumadin 5 mg tablet RxNorm: 701802 1 Tablet(s) PO QD due for PT/IN R 04/25/2017 05/24/2017 Inactive warfarin 1 mg tablet RxNorm: 108129 1 Tablet(s) PO QD due for l abs this week 03/16/2017 06/29/2017 Inactive omeprazole 40 mg capsule,delayed release RxNorm: 117146 1 Capsu le(s) PO BID 03/16/2017 05/30/2017 Inactive Celebrex 200 mg capsule RxNorm: 523806 1 Capsule(s) PO BID as n eeded for pain 03/16/2017 05/22/2017 Inactive Coumadin 5 mg tablet RxNorm: 638252 1 Tablet(s) PO QD due for PT/IN R 03/16/2017 04/14/2017 Inactive Celebrex 200 mg capsule RxNorm: 559908 1 Capsule(s) PO BID as n eeded for pain 02/09/2017 03/15/2017 Inactive Toprol XL 200 mg tablet,extended release RxNorm: 959047 1 Table t(s) PO QD 02/08/2017 2017 Inactive Celebrex 200 mg capsule RxNorm: 141930 1 Capsule(s) PO BID as n eeded for pain 01/14/2017 02/08/2017 Inactive omeprazole 40 mg capsule,delayed release RxNorm: 348483 1 Capsu le(s) PO BID 01/12/2017 03/16/2017 Inactive Coumadin 5 mg tablet RxNorm: 505633 1 Tablet(s) PO QD 12/15/201602/19 Inactive warfarin 1 mg tablet RxNorm: 618300 1 Tablet(s) PO QD 12/15/201602/19 Inactive metformin ER 500 mg tablet,extended release 24 hr RxNorm: 86 0975 Tablet(s) TAKE ONE TABLET BY MOUTH TWICE DAILY 11/29/2016 02/26/2017 Inactive omeprazole 40 mg capsule,delayed release RxNorm: 309195 1 Capsu le(s) PO BID 11/29/2016 12/28/2016 Inactive pravastatin 40 mg tablet RxNorm: 866157 Tablet(s) TAKE ONE TABLET BY MOUTH ONCE DAILY 11/19/2016 07/07/2017 Inactive omeprazole 40 mg capsule,delayed release RxNorm: 040595 1 Capsu le(s) PO BID 10/19/2016 10/18/2016 Inactive omeprazole 40 mg capsule,delayed release RxNorm: 728761 1 Capsu le(s) PO BID 10/19/2016 11/17/2016 Inactive pantoprazole 40 mg tablet,delayed release RxNorm: 805133 1 Tabl et(s) PO QD 09/30/2016 10/18/2016 Inactive pantoprazole 40 mg tablet,delayed release RxNorm: 226610 1 Tabl et(s) PO QD 09/30/2016 09/29/2016 Inactive Zofran ODT 4 mg disintegrating tablet RxNorm: 406862 1 Tablet(s) PO Q4H as needed for nausea 09/15/2016 01/02/2017 Inactive Coumadin 5 mg tablet RxNorm: 151863 1 Tablet(s) PO QD 09/14/201611/20 Inactive warfarin 1 mg tablet RxNorm: 186146 1 Tablet(s) PO QD 09/14/201611/20 Inactive spironolactone 25 mg tablet RxNorm: 179558 2 Tablet(s) PO QAM 09/0301/02/2017 Inactive Wellbutrin XL 300 mg 24 hr tablet, extended release RxNorm: 212666 TAKE ONE TABLET BY MOUTH ONCE DAILY 08/26/2016 12/26/2017 Inactive Toprol XL 200 mg tablet,extended release RxNorm: 905750 1 Table t(s) PO QD 07/28/2016 02/08/2017 Inactive metformin ER 500 mg tablet,extended release 24 hr RxNorm: 86 0975 Tablet(s) TAKE ONE TABLET BY MOUTH TWICE DAILY 07/15/2016 11/29/2016 Inactive cyclobenzaprine 5 mg tablet RxNorm: 259925 1 Tablet(s) PO QHS f or spasm 07/08/2016 08/06/2016 Inactive Celebrex 200 mg capsule RxNorm: 1 Capsule(s) PO BID 07/08/2016 Inactive spironolactone 25 mg tablet RxNorm: 532943 1 Tablet(s) PO QAM 07/0609/02/2016 Inactive Wellbutrin XL 300 mg 24 hr tablet, extended release RxNorm: 651322 TAKE ONE TABLET BY MOUTH ONCE DAILY 06/15/2016 07/14/2016 Inactive Coumadin 5 mg tablet RxNorm: 752882 1 Tablet(s) PO QD 06/08/201608/20 Inactive warfarin 1 mg tablet RxNorm: 478105 1 Tablet(s) PO QD 06/08/201608/20 Inactive Toprol XL 200 mg tablet,extended release RxNorm: 605403 TAKE ONE TABLET BY MOUTH ONCE DAILY 04/26/2016 07/28/2016 Inactive pravastatin 40 mg tablet RxNorm: 442134 TAKE ONE TABLET BY MOUT H ONCE DAILY 04/19/2016 10/15/2016 Inactive Coumadin 5 mg tablet RxNorm: 985189 1 Tablet(s) PO QD 03/09/201605/19 Inactive warfarin 1 mg tablet RxNorm: 280257 1 Tablet(s) PO QD 03/09/201605/19 Inactive metformin ER 500 mg tablet,extended release 24 hr RxNorm: 86 0975 TAKE ONE TABLET BY MOUTH TWICE DAILY 02/25/2016 07/15/2016 Inactive spironolactone 25 mg tablet RxNorm: 173893 TAKE ONE TAB LET BY MOUTH ONCE DAILY IN THE MORNING 02/25/2016 07/06/2016 Inactive prednisone 20 mg tablet RxNorm: 794965 1 Tablet(s) PO QAM 02/16/2016 02/20/2016 Inactive cefdinir 300 mg capsule RxNorm: 110665 2 Capsule(s) PO QD 02/16/2016 02/25/2016 Inactive Toprol XL 200 mg tablet,extended release RxNorm: 645521 TAKE ONE TABLET BY MOUTH ONCE DAILY 01/26/2016 04/24/2016 Inactive Aciphex 20 mg tablet,delayed release RxNorm: 733181 1 Tablet(s) PO BID 12/24/2015 09/29/2016 Inactive Omeprazole and Pepci d have not helped. Coumadin 5 mg tablet RxNorm: 380270 1 Tablet(s) PO QD 12/10/201502/19 Inactive Coumadin 5 mg tablet RxNorm: 529497 1 Tablet(s) PO QD 12/08/201511/20 Inactive Toprol XL 200 mg tablet,extended release RxNorm: 519814 TAKE ONE TABLET BY MOUTH ONCE DAILY 11/20/2015 01/18/2016 Inactive warfarin 1 mg tablet RxNorm: 753782 1 Tablet(s) PO QD 11/03/201502/19 Inactive pravastatin 40 mg tablet RxNorm: 072856 Tablet(s) TAKE ONE TABLET BY MOUTH ONCE DAILY 10/20/2015 01/17/2016 Inactive pravastatin 40 mg tablet RxNorm: 319564 TAKE ONE TABLET BY MOUT H ONCE DAILY 10/20/2015 10/19/2015 Inactive metformin ER 500 mg tablet,extended release 24 hr RxNorm: 86 0975 TAKE ONE TABLET BY MOUTH TWICE DAILY 10/03/2015 12/31/2015 Inactive Toprol XL 200 mg tablet,extended release RxNorm: 654892 TAKE ONE TABLET BY MOUTH ONCE DAILY 09/17/2015 11/15/2015 Inactive Coumadin 5 mg tablet RxNorm: 212882 1 Tablet(s) PO QD 09/02/201511/19 Inactive Wellbutrin XL 300 mg 24 hr tablet, extended release RxNorm: 889600 TAKE ONE TABLET BY MOUTH ONCE DAILY 08/01/2015 10/29/2015 Inactive Pepcid 20 mg tablet RxNorm: 157199 1 Tablet(s) PO BID as needed 05/24/2017 Inactive warfarin 1 mg tablet RxNorm: 114989 TAKE ONE TABLET BY MOUTH ON CE DAILY 07/08/2015 11/03/2015 Inactive pravastatin 40 mg tablet RxNorm: 065297 1 Tablet(s) PO QD 07/08/2015 10/05/2015 Inactive spironolactone 25 mg tablet RxNorm: 460753 TAKE ONE TAB LET BY MOUTH ONCE DAILY IN THE MORNING 06/13/2015 09/10/2015 Inactive Coumadin 5 mg tablet RxNorm: 930151 1 Tablet(s) PO QD 06/05/201508/19 Inactive Wellbutrin XL 300 mg 24 hr tablet, extended release RxNorm: 329775 TAKE ONE TABLET BY MOUTH ONCE DAILY 05/16/2015 09/26/2018 Inactive Wellbutrin XL 300 mg 24 hr tablet, extended release RxNorm: 443098 TAKE ONE TABLET BY MOUTH ONCE DAILY 05/16/2015 06/14/2015 Inactive metformin ER 500 mg tablet,extended release 24 hr RxNorm: 86 0975 TAKE ONE TABLET BY MOUTH TWICE DAILY 05/16/2015 08/13/2015 Inactive pravastatin 40 mg tablet RxNorm: 416773 1 Tablet(s) PO QD 04/10/2015 07/07/2015 Inactive Aciphex 20 mg tablet,delayed release RxNorm: 215208 1 Tablet(s) PO BID 03/07/2015 09/02/2015 Inactive Omeprazole and Pepci d have not helped. Toprol XL 200 mg tablet,extended release RxNorm: 893493 1 Table t(s) PO QD 03/05/2015 08/31/2015 Inactive Aciphex 20 mg tablet,delayed release RxNorm: 094491 1 Tablet(s) PO QD 03/04/2015 03/06/2015 Inactive Omeprazole and Pepci d have not helped. Coumadin 5 mg tablet RxNorm: 019554 1 Tablet(s) PO QD 02/28/201511/2015 Inactive Aciphex 20 mg tablet,delayed release RxNorm: 676560 1 Tablet(s) PO BID 02/11/2015 03/03/2015 Inactive Omeprazole and Pepci d have not helped. metformin ER 500 mg tablet,extended release 24 hr RxNorm: 86 0975 1 Tablet(s) PO BID 01/10/2015 04/09/2015 Inactive pravastatin 40 mg tablet RxNorm: 544940 1 Tablet(s) PO QD 01/06/2015 04/05/2015 Inactive Wellbutrin XL 300 mg 24 hr tablet, extended release RxNorm: 428327 TAKE ONE TABLET BY MOUTH ONCE DAILY 12/19/2014 02/16/2015 Inactive amoxicillin 500 mg capsule RxNorm: 817780 2 Capsule(s) PO BID 12/0612/15/2014 Inactive Flonase 50 mcg/actuation nasal spray,suspension RxNorm: 8963 23 2 J[place]att each nostril NASAL QD 12/06/2014 03/05/2015 Inactive Coumadin 5 mg tablet RxNorm: 796231 1 Tablet(s) PO QD 11/28/201410/2014 Inactive spironolactone 25 mg tablet RxNorm: 899362 1 Tablet(s) PO QAM 11/2602/23/2015 Inactive Coumadin 5 mg tablet RxNorm: 638561 1 Tablet(s) PO QD 1 Tablet(s) PO QD- NEED TO CHECK LABS 10/30/2014 11/28/2014 Inactive warfarin 1 mg tablet RxNorm: 477253 1 Tablet(s) PO QD 10/30/201409/2015 Inactive Aciphex 20 mg tablet,delayed release RxNorm: 859713 1 Tablet(s) PO QD 10/02/2014 02/10/2015 Inactive Omeprazole and Pepci d have not helped. Coumadin 5 mg tablet RxNorm: 602437 1 Tablet(s) PO QD 1 Tablet(s) PO QD- NEED TO CHECK LABS 09/30/2014 10/30/2014 Inactive pravastatin 40 mg tablet RxNorm: 460278 1 Tablet(s) PO QD 09/25/2014 01/06/2015 Inactive warfarin 1 mg tablet RxNorm: 426111 1 Tablet(s) PO QD T [place] ONE TABLET BY MOUTH DIRECTED ON MON AND THUR 08/28/2014 10/29/2014 Inactive metformin ER 500 mg tablet,extended release 24 hr RxNorm: 86 0975 1 Tablet(s) PO BID 08/28/2014 01/10/2015 Inactive amoxicillin 875 mg tablet RxNorm: 122620 1 Tablet(s) PO BID 015 08/18/2014 Inactive Toprol XL 200 mg tablet,extended release RxNorm: 542130 TAKE ONE TABLET BY MOUTH ONCE DAILY 07/22/2014 03/05/2015 Inactive Coumadin 5 mg tablet RxNorm: 648090 1 Tablet(s) PO QD 07/01/201409/18 Inactive amoxicillin 875 mg tablet RxNorm: 895047 1 Tablet(s) PO BID 015 06/30/2014 Inactive pravastatin 40 mg tablet RxNorm: 862489 1 Tablet(s) PO QD needs fasting labs 06/19/2014 09/25/2014 Inactive Coumadin 5 mg tablet RxNorm: 965936 1 Tablet(s) PO QD 1 Tablet(s) PO QD TAKE ONE TABLET BY MOUTH ONCE DAILY-need labs 05/28/2014 07/01/2014 Inactive warfarin 1 mg tablet RxNorm: 792351 1 Tablet(s) PO As Directed 05/1908/28/2014 Inactive pravastatin 40 mg tablet RxNorm: 609996 1 Tablet(s) PO QD needs fasting labs 05/14/2014 06/19/2014 Inactive metformin ER 500 mg tablet,extended release 24 hr RxNorm: 86 0975 1 Tablet(s) PO BID 04/25/2014 08/28/2014 Inactive spironolactone 25 mg tablet RxNorm: 575661 1 Tablet(s) PO QAM 04/2511/26/2014 Inactive Coumadin 5 mg tablet RxNorm: 690175 1 Tablet(s) PO QD 1 Tablet(s) PO QD TAKE ONE TABLET BY MOUTH ONCE DAILY 04/23/2014 05/28/2014 Inactive Coumadin 5 mg tablet RxNorm: 292796 1 Tablet(s) PO QD 1 Tablet(s) PO QD TAKE ONE TABLET BY MOUTH ONCE DAILY 03/22/2014 04/20/2014 Inactive Tessalon Perles 100 mg capsule RxNorm: 880219 1 Capsule(s) PO TID 0 03/22/2014 03/28/2014 Inactive cefdinir 300 mg capsule RxNorm: 767420 2 Capsule(s) PO QD 03/22/2014 03/31/2014 Inactive Medrol (Dale) 4 mg tablets in a dose pack RxNorm: 308733 Tablet(s) PO as directed 03/05/2014 08/08/2014 Inactive Coumadin 5 mg tablet RxNorm: 095637 1 Tablet(s) PO QD 1 Tablet(s) PO QD TAKE ONE TABLET BY MOUTH ONCE DAILY 02/19/2014 03/20/2014 Inactive pravastatin 40 mg tablet RxNorm: 034393 1 Tablet(s) PO QD 02/04/2014 05/14/2014 Inactive Coumadin 5 mg tablet RxNorm: 969942 1 Tablet(s) PO QD T [place] ONE TABLET BY MOUTH ONCE DAILY 01/21/2014 02/19/2014 Inactive Medrol (Dale) 4 mg tablets in a dose pack RxNorm: 469383 Tablet(s) PO as directed 01/18/2014 03/04/2014 Inactive cefdinir 300 mg capsule RxNorm: 897081 2 Capsule(s) PO QD 01/16/2014 01/25/2014 Inactive metformin ER 500 mg tablet,extended release 24 hr RxNorm: 86 0975 1 Tablet(s) PO BID 12/17/2013 04/25/2014 Inactive Wellbutrin SR 150 mg tablet,sustained-release RxNorm: 859764 1 Tablet(s) PO BID 11/30/2013 02/27/2014 Inactive spironolactone 25 mg tablet RxNorm: 302268 1 Tablet(s) PO QAM 10/2204/25/2014 Inactive Macrobid 100 mg capsule RxNorm: 681741 1 Capsule(s) PO BID 10/20/19 14 10/25/2013 Inactive Macrobid 100 mg capsule RxNorm: 921090 1 Capsule(s) PO BID 10/20/19 14 10/18/2013 Inactive Toprol XL 100 mg tablet,extended release RxNorm: 121638 1 Table t(s) PO QD 10/15/2013 01/15/2014 Inactive Toprol XL 200 mg tablet,extended release RxNorm: 922984 1 Table t(s) PO QD 10/02/2013 07/22/2014 Inactive Wellbutrin XL 300 mg 24 hr tablet, extended release RxNorm: 406292 1 Tablet(s) PO QD 09/28/2013 12/19/2014 Inactive Aciphex 20 mg tablet,delayed release RxNorm: 953510 1 Tablet(s) PO QD 08/29/2013 10/02/2014 Inactive Omeprazole and Pepci d have not helped. Coumadin 5 mg tablet RxNorm: 848424 1 Tablet(s) PO QD 08/14/201307/20 Inactive Coumadin 5 mg tablet RxNorm: 912114 1 Tablet(s) PO QD 08/14/201305/2013 Inactive pravastatin 40 mg tablet RxNorm: 659055 1 Tablet(s) PO QD 07/24/2013 02/04/2014 Inactive warfarin 1 mg tablet RxNorm: 460995 1 Tablet(s) PO QD T [place] ONE TABLET BY MOUTH DIRECTED ON MON AND THUR 07/09/2013 05/28/2014 Inactive warfarin 5 mg tablet RxNorm: 237307 1 Tablet(s) PO QD T [place] ONE TABLET BY MOUTH EVERY DAY 06/08/2013 07/07/2013 Inactive spironolactone 25 mg tablet RxNorm: 576825 1 Tablet(s) PO QAM 05/3010/15/2013 Inactive clindamycin 300 mg capsule RxNorm: 140804 2 Capsule(s) PO TID 04/1704/30/2013 Inactive warfarin 5 mg tablet RxNorm: 874150 1 Tablet(s) PO QD 03/12/201305/20 Inactive azithromycin 250 mg tablet RxNorm: 402024 2 Tablet(s) PO QD 013 03/07/2013 Inactive metformin ER 500 mg tablet,extended release 24 hr RxNorm: 86 0975 1 Tablet(s) PO BID 02/22/2013 12/17/2013 Inactive spironolactone 25 mg tablet RxNorm: 174197 1 Tablet(s) PO QAM 01/2205/30/2013 Inactive metformin ER 500 mg tablet,extended release 24 hr RxNorm: 86 0977 1 Tablet(s) PO BID 01/11/2013 02/21/2013 Inactive pravastatin 40 mg tablet RxNorm: 695781 1 Tablet(s) PO QD 01/11/2013 07/24/2013 Inactive warfarin 5 mg tablet RxNorm: 635821 1 Tablet(s) PO QD 01/04/201302/19 Inactive warfarin 1 mg tablet RxNorm: 882113 Tablet(s) PO TAKE O NE TABLET BY MOUTH DIRECTED ON MON AND THUR 12/14/2012 07/08/2013 Inactive scopolamine 1.5 mg 72 hr Transderm Patch RxNorm: 591189 TD Apply 1 patch behind ear every 72 hours, replace after 3 days. 11/08/2012 01/15/2014 Inacti ve Pepcid 20 mg tablet RxNorm: 431252 1 Tablet(s) PO BID as needed 01/31/2013 Inactive Famvir 500 mg tablet RxNorm: 200988 1 Tablet(s) PO Q8H 11/03/2012 Inactive Aciphex 20 mg tablet,delayed release RxNorm: 712929 1 Tablet(s) PO QD 11/03/2012 05/01/2013 Inactive Omeprazole and Pepci d have not helped. gabapentin 300 mg capsule RxNorm: 817368 Capsule(s) PO TID 11/04/19 13 01/15/2014 Inactive warfarin 5 mg tablet RxNorm: 775719 1 Tablet(s) PO QD 11/02/201212/19 Inactive Wellbutrin XL 300 mg 24 hr tablet, extended release RxNorm: 852069 1 Tablet(s) PO QD 10/17/2012 04/30/2013 Inactive pravastatin 40 mg tablet RxNorm: 504138 Tablet(s) PO TA KE ONE TABLET BY MOUTH EVERY DAY. NEED FASTING LABS 09/18/2012 01/10/2013 Inactive Toprol XL 200 mg tablet,extended release RxNorm: 750466 Tablet(s) PO TAKE ONE TABLET BY MOUTH EVERY DAY 09/08/2012 10/01/2013 Inactive warfarin 5 mg tablet RxNorm: 595813 1 Tablet(s) PO QD 08/31/201210/19 Inactive pravastatin 40 mg tablet RxNorm: 332976 1 Tablet(s) PO QD Needs fasting labs 08/18/2012 09/16/2012 Inactive TAKE ONE TABLET BY M OUTH EVERY DAY warfarin 1 mg tablet RxNorm: 521325 1 Tablet(s) PO As directed on Mon and Thurs 08/11/2012 12/13/2012 Inactive spironolactone 25 mg tablet RxNorm: 894180 1 Tablet(s) PO QAM 07/1110/08/2012 Inactive warfarin 5 mg tablet RxNorm: 793947 1 Tablet(s) PO QD 07/03/201208/19 Inactive Diflucan 100 mg tablet RxNorm: 055853 1 Tablet(s) PO QD 05/04/2012 Inactive Cipro 500 mg tablet RxNorm: 540493 1 Tablet(s) PO BID 05/04/201204/22 Inactive Aciphex 20 mg tablet,delayed release RxNorm: 091588 1 Tablet(s) PO QD 05/04/2012 07/02/2012 Inactive Omeprazole and Pepci d have not helped. warfarin 5 mg tablet RxNorm: 322525 1 Tablet(s) PO QD 05/02/201206/19 Inactive warfarin 5 mg tablet RxNorm: 637868 1 Tablet(s) PO QD 03/02/201204/21 Inactive Toprol XL 200 mg tablet,extended release RxNorm: 980978 1 Table t(s) PO QD 03/02/2012 05/30/2012 Inactive spironolactone 25 mg tablet RxNorm: 370290 1 Tablet(s) PO QAM 02/0707/11/2012 Inactive pravastatin 40 mg tablet RxNorm: 014167 Tablet(s) PO 01/31/201208/17 Inactive TAKE ONE TABLET BY MOUTH EVERY DAY pravastatin 40 mg tablet RxNorm: 686451 1 Tablet(s) PO QD 01/31/2012 08/18/2012 Inactive omeprazole 40 mg capsule,delayed release RxNorm: 667137 1 Capsule(s) PO QD for stomach 01/11/2012 11/02/2012 Inactive for stomach warfarin 5 mg tablet RxNorm: 408690 1 Tablet(s) PO QD 01/03/201202/18 Inactive warfarin 5 mg tablet RxNorm: 122032 1 Tablet(s) PO QD 12/03/201112/19 Inactive pravastatin 40 mg tablet RxNorm: 363788 1 Tablet(s) PO QD 11/25/2011 01/23/2012 Inactive cefdinir 300 mg Cap RxNorm: 123910 1 Capsule(s) PO BID 10/11/201103/2011 Inactive Culturelle 10 billion cell Cap RxNorm: 490510 1 Capsule(s) PO BID 0 10/11/2011 11/09/2011 Inactive Diflucan 100 mg Tab RxNorm: 087103 1 Tablet(s) PO QD 10/11/201110/19 Inactive Wellbutrin XL 300 mg 24 hr tablet, extended release RxNorm: 905635 1 Tablet(s) PO QD 09/14/2011 10/17/2012 Inactive pravastatin 40 mg tablet RxNorm: 499039 1 Tablet(s) PO QD 08/25/2011 11/25/2011 Inactive Coumadin 5 mg tablet RxNorm: 537418 Tablet(s) PO Take as direct ed by doctor. 07/07/2011 12/03/2011 Inactive Singulair 10 mg Tab RxNorm: 396725 1 Tablet(s) PO QD al lergy medication. (Please try to be consistent in dosing) 06/23/2011 01/15/2014 Inactive Diflucan 100 mg Tab RxNorm: 369818 1 Tablet(s) PO QD 06/14/201107/02 Inactive cefdinir 300 mg Cap RxNorm: 051162 1 Capsule(s) PO BID 06/14/201106/2011 Inactive pravastatin 40 mg Tab RxNorm: 922992 1 Tablet(s) PO QD 05/25/201108/2011 Inactive warfarin 5 mg Tab RxNorm: 168908 Tablet(s) PO 05/25/2011 10/18/2011 In active TAKE ONE TABLET BY MOUTH EVERY DAY Toprol XL 200 mg tablet,extended release RxNorm: 136144 1 Table t(s) PO QD 03/05/2011 06/02/2011 Inactive spironolactone 25 mg tablet RxNorm: 051455 1 Tablet(s) PO QAM 02/2402/08/2012 Inactive omeprazole 40 mg capsule,delayed release RxNorm: 460862 1 Capsule(s) PO QD for stomach 01/06/2011 01/11/2012 Inactive for stomach warfarin 5 mg Tab RxNorm: 231861 1 Tablet(s) PO QD 12/17/2010 011 Inactive warfarin 5 mg Tab RxNorm: 385006 1 Tablet(s) PO QD 11/18/2010 011 Inactive spironolactone 25 mg Tab RxNorm: 999339 1 Tablet(s) PO QAM 11/13/19 11 02/24/2011 Inactive Coumadin 6 mg Tab RxNorm: 623872 1 Tablet(s) PO QD 10/28/2010 011 Inactive May have generic hydrochlorothiazide 25 mg Tab RxNorm: 486598 1 Tablet(s) PO QAM 11/11/2010 Inactive Wellbutrin XL 300 mg 24 hr Tab RxNorm: 063676 1 Tablet(s) PO QD 09/14/2011 Inactive Septra DS 800 mg-160 mg Tab RxNorm: 583827 1 Tablet(s) PO BID 06/0806/17/2010 Inactive Pyridium 100 mg Tab RxNorm: 3946644 1 Tablet(s) PO TID 06/08/2010 Inactive Wellbutrin XL 300 mg 24 hr Tab RxNorm: 198063 1 Tablet(s) PO QD 05/201007/15/2010 Inactive hydroxyzine 25 mg Tab RxNorm: 140506 1 Tablet(s) PO QID prn itching--take routinely at bedtime. (pt. may not refil at this time but later) 05/20/2010 10/10/2011 Inactive Zyrtec 10 mg Tab RxNorm: 5453752 1 Tablet(s) PO BID 05/20/20102010 Inactive Coumadin 1 mg Tab RxNorm: 428023 1 Tablet(s) PO 6mg M-F, 7mg S-S 11/16/2010 Inactive hydroxyzine 25 mg Tab RxNorm: 854372 1 Tablet(s) PO QID prn itching--take routinely at bedtime 04/30/2010 05/19/2010 Inactive Toprol XL 200 mg 24 hr Tab RxNorm: 957018 1 Tablet(s) PO QD 011 06/23/2010 Inactive lisinopril-hydrochlorothiazide 10 mg-12.5 mg Tab RxNorm: 197 885 1 Tablet(s) PO QD 04/20/2010 04/29/2010 Inactive omeprazole 40 mg Cap, Delayed Release RxNorm: 580610 1 Capsule(s) PO QD for stomach 04/20/2010 08/17/2010 Inactive lisinopril-hydrochlorothiazide 10 mg-12.5 mg Tab RxNorm: 197 885 Tablet(s) PO 1QDAM - TAKE ONE TABLET BY MOUTH EVERY DAY IN THE MORNING 03/09/2010 Inactive lisinopril-hydrochlorothiazide 10 mg-12.5 mg Tab RxNorm: 197 885 1 Tablet(s) PO QD 02/27/2010 04/20/2010 Inactive Wellbutrin XL 300 mg 24 hr Tab RxNorm: 192319 1 Tablet(s) PO QD 05/21/2010 Inactive lisinopril-hydrochlorothiazide 10 mg-12.5 mg Tab RxNorm: 197 885 1 Tablet(s) PO QD 01/28/2010 02/26/2010 Inactive omeprazole 40 mg Cap, Delayed Release RxNorm: 057308 1 Capsule(s) PO QD for stomach 01/22/2010 04/20/2010 Inactive Altace 10 mg Cap RxNorm: 403377 1 Capsule(s) PO QD for BP 01/22/2010 03/22/2010 Inactive Coumadin 6 mg Tab RxNorm: 748009 1 Tablet(s) PO QD May have generic 12/03/2009 05/01/2010 Inactive Coumadin 6 mg Tab RxNorm: 105153 1 Tablet(s) PO 12/01/2009 12/02/2009 Inactive Coumadin 1 mg Tab RxNorm: 246320 1 Tablet(s) PO QD 11/28/2009 010 Inactive Coumadin 1 mg Tab RxNorm: 427066 1 Tablet(s) PO QD 07/02/2009 010 Inactive Flexeril 10 mg tablet RxNorm: 279165 1 Tablet(s) PO TID No Start Date Active spironolactone 25 mg tablet RxNorm: 051976 1 Tablet(s) PO QAM No Star t Date Active lisinopril-hydrochlorothiazide 20 mg-12.5 mg Tab RxNorm: 197 886 2 Tablet(s) PO QAM No Start Date 10/12/2010 Inactive Zofran ODT 4 mg disintegrating tablet RxNorm: 262265 1 Tablet(s) PO Q6H as needed for nausea No Start Date 09/14/2016 Inactive Wellbutrin XL 300 mg 24 hr Tab RxNorm: 514629 1 Tablet(s) PO QD No Start Date 02/02/2010 Inactive alprazolam 0.25 mg tablet RxNorm: 402743 1 Tablet(s) PO prior t o flight No Start Date 05/24/2017 Inactive hydrocodone-acetaminophen 5 mg-500 mg Tab RxNorm: 912721 1-2 Tablet(s) PO Q4H as needed for pain No Start Date 12/02/2010 Inactive Toprol XL 100 mg 24 hr Tab RxNorm: 328752 1 Tablet(s) PO QD No Star t Date 10/14/2013 Inactive Celebrex 200 mg capsule RxNorm: 116431 1 Capsule(s) PO QD No Start Date 05/22/2017 Inactive scopolamine 1 mg over 3 days transdermal patch RxNorm: 79907 2 1 TD take off in 72 hours. No Start Date 07/31/2017 Inactive OneTouch Ultra Test strips RxNorm: Test blood sugar daily No S tart Date 04/23/2018 Inactive Medrol (Dale) 4 mg tablets in a dose pack RxNorm: 644849 Tablet(s) PO As directed No Start Date 01/15/2014 Inactive Coumadin 5 mg Tab RxNorm: 050628 1 Tablet(s) PO QD No Start Date 06/19 Inactive Pepcid 40 mg Tab RxNorm: 714218 1 Tablet(s) PO QD No Start Date 06/23 Inactive prednisone 10 mg Tab RxNorm: 662992 1 Tablet(s) PO BID No Start Date 06/23/2010 Inactive spironolactone 25 mg tablet RxNorm: 449892 1 Tablet(s) PO QAM No St art Date 09/26/2018 Inactive scopolamine 1.5 mg 72 hr Transderm Patch RxNorm: 814962 TD Apply 1 patch behind ear every 72 hours, replace after 3 days. No Start Date 11/07/2012 Inacti ve azithromycin 250 mg Tab RxNorm: 347427 Tablet(s) PO 2 t abs on day one and one tab on days 2-5. (antibiotic) No Start Date 10/10/2011 Inactive Medrol (Dale) 4 mg Tabs in a Dose Pack RxNorm: 046832 1 Tablet(s) PO as directed. (steroid pack) No Start Date 10/10/2011 Inactive Lovenox 40 mg/0.4 mL subcutaneous syringe RxNorm: 092108 40 Mil ligram(s) SQ QD No Start Date 05/04/2018 Inactive Celebrex 200 mg capsule RxNorm: 257912 1 Capsule(s) PO BID as n eeded for pain No Start Date 01/13/2017 Inactive warfarin 1 mg tablet RxNorm: 954786 1 Tablet(s) PO As directed on Tue and No Start Date 08/10/2012 Inactive cefuroxime axetil 500 mg Tab RxNorm: 458149 1 Tablet(s) PO BID No S tart Date 06/13/2011 Inactive Lovenox 40 mg/0.4 mL subcutaneous syringe RxNorm: 320920 40 Mil ligram(s) SQ QD No Start Date 01/26/2018 Inactive Coumadin 5 mg tablet RxNorm: 338450 1 Tablet(s) PO QD No Start Date 0 08/13/2013 Inactive Medrol (Dale) 4 mg tablets in a dose pack RxNorm: 985705 Tablet(s) PO as directed No Start Date 01/17/2014 Inactive Coumadin 6 mg tablet RxNorm: 801628 1 Tablet(s) PO QD No Start Date 0 06/20/2016 Inactive warfarin 5 mg tablet RxNorm: 678833 1 Tablet(s) PO QD No Start Date 0 12/02/2011 Inactive Medrol (Dale) 4 mg Tabs in a Dose Pack RxNorm: 329701 Tablet(s) PO as directed No Start Date 06/23/2010 Inactive Flonase 50 mcg/actuation nasal spray,suspension RxNorm: 8963 23 2 Jarratt NASAL BID No Start Date 12/05/2014 Inactive Pepcid 20 mg tablet RxNorm: 765936 1 Tablet(s) PO BID as needed No Start Date 11/02/2012 Inactive Medication Administered No Medication Administered data Immunizations No Immunization data Results Observation Observation Code Item Item Code Result Date S ervice Location MICROALBUMIN URINE RANDOM 01468 CREAT MG/D 139 MG/DL Unknown MICROALBUMIN URINE RANDOM 62375 CRE/100 1.39 G/L 12/20 Unknown Procedures Procedure Codes Date URINALYSIS NONAUTO W/O SCOPE CPT-4: 11745 09/27/2018 URINE CULTURE/ COLONY COUNT CPT-4: 14127 09/27/2018 URINALYSIS NONAUTO W/O SCOPE CPT-4: 77104 10/13/2017 URINE CULTURE/ COLONY COUNT CPT-4: 71244 10/13/2017 STREP A ASSAY W/OPTIC CPT-4: 35886 06/21/2016 STREP A ASSAY W/OPTIC CPT-4: 28678 06/24/2014 THER/PROPH/DIAG INJ SC/IM CPT-4: 88421 03/22/2014 METHYLPREDNISOLONE 40 MG INJ CPT-4: J1030 03/22/2014 TRIAMCINOLONE ACET INJ NOS CPT-4: J3301 03/22/2014 URINALYSIS NONAUTO W/O SCOPE CPT-4: 05552 10/19/2013 URINE CULTURE/ COLONY COUNT CPT-4: 53831 10/19/2013 CEFTRIAXONE SODIUM INJECTION CPT-4: J0696 03/02/2013 THER/PROPH/DIAG INJ SC/IM CPT-4: 81190 03/02/2013 CEFTRIAXONE SODIUM INJECTION CPT-4: J0696 03/01/2013 THER/PROPH/DIAG INJ SC/IM CPT-4: 55360 03/01/2013 THER/PROPH/DIAG INJ SC/IM CPT-4: 89604 03/01/2013 METHYLPREDNISOLONE 40 MG INJ CPT-4: J1030 03/01/2013 TRIAMCINOLONE ACET INJ NOS CPT-4: J3301 03/01/2013 MICROALBUMIN QUANTITATIVE CPT-4: 55695 01/11/2013 URINE CULTURE/ COLONY COUNT CPT-4: 41250 05/04/2012 URINALYSIS NONAUTO W/O SCOPE CPT-4: 42197 05/04/2012 URINE CULTURE/ COLONY COUNT CPT-4: 33443 05/29/2010 TRIAMCINOLONE ACET INJ NOS CPT-4: J3301 05/20/2010 METHYLPREDNISOLONE 40 MG INJ CPT-4: J1030 05/20/2010 THER/PROPH/DIAG INJ SC/IM CPT-4: 51850 05/20/2010 Vital Signs Date Vital 09/27/2018 Blood Pressure 1: 136/82 Code: 8480-6 Heart Rate 1: 68 bpm Respiratory Rate: 20 bpm SpO2: 96% Temperature: 36.6 (C) / 97.9 (F) We ight: 244 lbs 04/24/2018 Blood Pressure 1: 134/78 Code: 8480-6 BMI: 35.1 Code: 07587-8 Heart Rate 1: 76 bpm Height: 5'9" Respiratory Rate: 20 bpm Temperature: 36 .6 (C) / 97.8 (F) Weight: 238 lbs 12/27/2017 Blood Pressure 1: 126/64 Code: 8480-6 BMI: 34.7 Code: 44185-8 Heart Rate 1: 72 bpm Height: 5'9" Respiratory Rate: 20 bpm Temperature: 36 .8 (C) / 98.2 (F) Weight: 235 lbs 10/12/2017 Blood Pressure 1: 142/80 Code: 8480-6 BMI: 35.1 Code: 00645-0 Heart Rate 1: 98 bpm Height: 5'9" Respiratory Rate: 22 bpm SpO2: 100% Tempera ture: 36.5 (C) / 97.7 (F) Weight: 238 lbs 09/16/2017 Blood Pressure 1: 136/82 Code: 8480-6 BMI: 34.1 Code: 44945-0 Heart Rate 1: 82 bpm Height: 5'9" Respiratory Rate: 18 bpm SpO2: 96% Tempera ture: 36.3 (C) / 97.3 (F) Weight: 231 lbs 05/25/2017 Blood Pressure 1: 122/82 Code: 8480-6 BMI: 32.3 Code: 87829-6 Heart Rate 1: 116 bpm Height: 5'9" Respiratory Rate: 20 bpm SpO2: 98% Tempera ture: 35.6 (C) / 96.1 (F) Weight: 219 lbs 01/03/2017 Blood Pressure 1: 126/78 Code: 8480-6 BMI: 33.4 Code: 05780-9 Heart Rate 1: 72 bpm Height: 5'9" Respiratory Rate: 20 bpm Temperature: 36 .8 (C) / 98.2 (F) Weight: 226 lbs 09/23/2016 Blood Pressure 1: 126/82 Code: 8480-6 BMI: 33.8 Code: 17757-0 Heart Rate 1: 80 bpm Height: 5'9" Respiratory Rate: 20 bpm SpO2: 97% Tempera ture: 36.8 (C) / 98.2 (F) Weight: 229 lbs 09/03/2016 Blood Pressure 1: 188/64 Code: 8480-6 Bl ood Pressure 2: 166/92 Code: 8480-6 BMI: 34.4 Code: 91290-3 Heart Rate 1: 66 bpm Height: 5'9" Res piratory Rate: 20 bpm SpO2: 98% Temperature: 35.7 (C) / 96.2 (F) Weight: 233 lbs 07/08/2016 Blood Pressure 1: 134/82 Code: 8480-6 Heart Rate 1: 64 bpm Height: 5'9" Respiratory Rate: 20 bpm SpO2: 97% Temperature: 36.6 (C) / 97.8 (F) Weight: 06/21/2016 Blood Pressure 1: 112/68 Code: 8480-6 BMI: 33.8 Code: 71625-2 Heart Rate 1: 64 bpm Height: 5'9" Respiratory Rate: 20 bpm SpO2: 95% Tempera ture: 36.3 (C) / 97.3 (F) Weight: 229 lbs 02/23/2016 Blood Pressure 1: 128/78 Code: 8480-6 BMI: 33.4 Code: 55063-5 Heart Rate 1: 74 bpm Height: 5'9" [...] 1: 122/80 Code: 8480-6 BMI: 32.2 Code: 61528-2 Heart Rate 1: 80 bpm Height: 5'9" Respiratory Rate: 20 bpm Temperature: 37 .0 (C) / 98.6 (F) Weight: 218 lbs 08/09/2014 Blood Pressure 1: 132/84 Code: 8480-6 BMI: 33.1 Code: 74017-9 Heart Rate 1: 72 bpm Height: 5'9" Respiratory Rate: 20 bpm Temperature: 36 .7 (C) / 98.0 (F) Weight: 224 lbs 06/24/2014 Blood Pressure 1: 132/80 Code: 8480-6 BMI: 32.8 Code: 83523-5 Heart Rate 1: 68 bpm Height: 5'9" Respiratory Rate: 20 bpm Temperature: 36 .4 (C) / 97.6 (F) Weight: 222 lbs 03/22/2014 Blood Pressure 1: 128/84 Code: 8480-6 BMI: 32.5 Code: 30156-4 Heart Rate 1: 78 bpm Height: 5'9" Respiratory Rate: 22 bpm Temperature: 36 .0 (C) / 96.8 (F) Weight: 220 lbs 03/05/2014 Blood Pressure 1: 124/78 Code: 8480-6 BMI: 31.9 Code: 23544-6 Heart Rate 1: 82 bpm Height: 5'9" Respiratory Rate: 20 bpm Temperature: 35 .8 (C) / 96.4 (F) Weight: 216 lbs 01/16/2014 Blood Pressure 1: 116/68 Code: 8480-6 BMI: 33.8 Code: 90600-8 Heart Rate 1: 72 bpm Height: 5'7" Respiratory Rate: 20 bpm Temperature: 36 .6 (C) / 97.9 (F) Weight: 216 lbs 05/10/2013 Blood Pressure 1: 124/86 Code: 8480-6 BMI: 34.3 Code: 75479-1 Heart Rate 1: 84 bpm Height: 5'7" [...] 1: 116/84 Code: 8480-6 BMI: 33.1 Code: 24358-2 Heart Rate 1: 64 bpm Height: 5'9" Respiratory Rate: 20 bpm Temperature: 36 .4 (C) / 97.6 (F) Weight: 224 lbs 01/11/2013 Blood Pressure 1: 126/84 Code: 8480-6 BMI: 35.3 Code: 37978-8 Heart Rate 1: 68 bpm Height: 5'9" Respiratory Rate: 20 bpm Temperature: 36 .7 (C) / 98.1 (F) Weight: 239 lbs 11/03/2012 Blood Pressure 1: 104 Code: 8480-6 BMI: 34.4 Code: 77754-8 Heart Rate 1: 72 bpm Height: 5'9" Respiratory Rate: 20 bpm Temperature: 36 .8 (C) / 98.3 (F) Weight: 233 lbs 05/04/2012 Blood Pressure 1: 124 Code: 8480-6 BMI: 33.7 Code: 01845-9 Heart Rate 1: 84 bpm Height: 5'9" Temperature: 36.3 (C) / 97.3 (F) Weight: 228 lbs 10/11/2011 Blood Pressure 1: 11070 Code: 8480-6 BMI: 33.7 Code: 87625-1 Heart Rate 1: 64 bpm Height: 5'9" Temperature: 36.8 (C) / 98.3 (F) Weight: 228 lbs 06/23/2011 Blood Pressure 1: 114 Code: 8480-6 BMI: 33.4 Code: 40760-3 Heart Rate 1: 80 bpm Height: 5'9" Respiratory Rate: 20 bpm Temperature: 36 .7 (C) / 98.0 (F) Weight: 226 lbs 06/14/2011 Blood Pressure 1: 118 Code: 8480-6 BMI: 33.4 Code: 09677-1 Heart Rate 1: 80 bpm Height: 5'9" [...] 1: 126/82 Code: 8480-6 BMI: 32.6 Code: 47112-0 Heart Rate 1: 68 bpm Height: 5'9" [...] 1: 140/92 Code: 8480-6 BMI: 31.3 Code: 45487-8 Heart Rate 1: 60 bpm Height: 5'10" [...] upper back on 08/13/16 while camping around [place], [place]. Patient states is tender around tick [...] 01/22/2010 Encounters Encounter Performer Location Codes Date ([id number]) OFFICE/OUTPATIENT VISIT EST Diagnosis: Gastro-esophageal reflux disease without esophagitis[ICD10: K21.9] Diagnosis: Urinary tract infection, site not specified[ICD10: N39.0] Diagnosis: Ventral hernia without obstruction or gangrene[ICD10: K43.9] Jessica GEE DO [facility] CPT-4: 09275 09/27/2018 ([id number]) OFFICE/OUTPATIENT VISIT EST Diagnosis: Essential (primary) hypertension[ICD10: I10] Diagnosis: Type 2 diabetes mellitus without complications[ICD10: E11.9] Diagnosis: Carpal tunnel syndrome, right upper limb[ICD10: G56.01] Diagnosis: Primary insomnia[ICD10: F51.01] Jessica GEE DO [facility] CPT-4: 95522 04/24/2018 ([id number]) OFFICE/OUTPATIENT VISIT EST Diagnosis: Type 2 diabetes mellitus without complications[ICD10: E11.9] Diagnosis: Mixed hyperlipidemia[ICD10: E78.2] Diagnosis: Essential (primary) hypertension[ICD10: I10] Diagnosis: Pain in unspecified joint[ICD10: M25.50] Jessica GEE [facility] CPT-4: 81721 12/27/2017 ([id number]) NURSE/OUTPATIENT VISIT EST Diagnosis: Hematuria, unspecified[ICD10: R31.9] Jessica GEE [facility] CPT-4: 18782 10/13/2017 ([id number]) OFFICE/OUTPATIENT VISIT EST Diagnosis: Pleurodynia[ICD10: R07.81] Sofi CAMPUZANO DO [facility] CPT-4: 43449 10/12/2017 ([id number]) OFFICE/OUTPATIENT VISIT EST Diagnosis: Acute bronchitis, unspecified[ICD10: J20.9] Sofi GEE DO [facility] CPT-4: 03119 09/16/2017 ([id number]) OFFICE/OUTPATIENT VISIT EST Diagnosis: Other specified postprocedural states[ICD10: Z98.890] Diagnosis: Cellulitis of neck[ICD10: L03.221] Diagnosis: Tachycardia, unspecified[ICD10: R00.0] Jessica Borgesmalvin GEE [facility] CPT-4: 77785 05/25/2017 ([id number]) OFFICE/OUTPATIENT VISIT EST Diagnosis: Lumbago with sciatica, right side[ICD10: M54.41] Diagnosis: Pain in unspecified joint[ICD10: M25.50] Jessica GEE [facility] CPT-4: 72162 01/03/2017 ([id number]) OFFICE/OUTPATIENT VISIT EST Diagnosis: Bitten or stung by nonvenomous insect and other nonvenomous arthropods, subsequent encounter[ICD10: W57.XXXD] Diagnosis: Essential (primary) hypertension[ICD10: I10] Diagnosis: Low back pain[ICD10: M54.5] Jessica SMITHLINE Monica Zamudio [facility] CPT-4: 29795 09/23/2016 OFFICE/OUTPATIENT VISIT EST Diagnosis: Bitten or stung by nonvenomous insect and other nonvenomous arthropods, initial encounter[ICD10: W57.XXXA] Diagnosis: Essential (primary) hypertension[ICD10: I10] Kaitlynn Mosley JESSICA GEE [facility] CPT-4: 38541 09/03/2016 ([id number]) OFFICE/OUTPATIENT VISIT EST Diagnosis: Low back pain[ICD10: M54.5] Diagnosis: Radiculopathy, lumbosacral region[ICD10: M54.17] Jessica GEE [facility] CPT-4: 15280 07/08/2016 ([id number]) OFFICE/OUTPATIENT VISIT EST Diagnosis: Acute pharyngitis, unspecified[ICD10: J02.9] Jessica GEE [facility] CPT-4: 54673 06/21/2016 ([id number]) OFFICE/OUTPATIENT VISIT EST Diagnosis: Cough[ICD10: R05] Diagnosis: Fever, unspecified[ICD10: R50.9] Janiya Gregorio JESSICA Monica GEE [facility] CPT-4: 13143 02/23/2016 ([id number]) OFFICE/OUTPATIENT VISIT EST Diagnosis: Acute sinusitis, unspecified[ICD10: J01.90] Jessicashannan GEE [facility] CPT-4: 04250 02/16/2016 OFFICE/OUTPATIENT VISIT EST Diagnosis: Type 2 diabetes mellitus without complications[ICD10: E11.9] Diagnosis: Gastro-esophageal reflux disease without esophagitis[ICD10: K21.9] Diagnosis: Ventral hernia without obstruction or gangrene[ICD10: K43.9] Suki GEE DO [facility] CPT-4: 67488 02/11/2015 OFFICE/OUTPATIENT VISIT EST 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] Diagnosis: Essential (primary) hypertension[ICD10: I10] Suki GEE DO [facility] CPT-4: 20458 01/28/2015 OFFICE/OUTPATIENT VISIT EST Diagnosis: SINUSITIS, ACUTE[ICD9: 461.9] Kaitlynn GEE [facility] CPT-4: 03021 12/06/2014 ([id number]) OFFICE/OUTPATIENT VISIT EST Diagnosis: SINUSITIS, ACUTE[ICD9: 461.9] Kaitlynn GEE [facility] CPT-4: 21215 08/09/2014 ([id number]) OFFICE/OUTPATIENT VISIT EST Diagnosis: TONSILLITIS, ACUTE[ICD9: 463] Suki GEE [facility] CPT-4: 69864 06/24/2014 OFFICE/OUTPATIENT VISIT EST Diagnosis: SINUSITIS, ACUTE[ICD9: 461.9] Diagnosis: EUSTACHIAN TUBE DYSFUNCTION[ICD9: 381.81] Diagnosis: COUGH[ICD9: 786.2] Suki GEE DO [facility] CPT-4: 10531 03/22/2014 OFFICE/OUTPATIENT VISIT EST Diagnosis: Elbow pain, right[ICD9: 719.42] Suki GEE DO [facility] CPT-4: 27709 03/05/2014 OFFICE/OUTPATIENT VISIT EST Diagnosis: SINUSITIS, ACUTE[ICD9: 461.9] Jessica GEE [facility] CPT-4: 37849 01/16/2014 ([id number]) OFFICE/OUTPATIENT VISIT EST Diagnosis: GROSS HEMATURIA[ICD9: 599.71] Jessica Rodriguezbluemalvin SMITHJESSICA Monica GEE [employer] [facility] CPT-4: 74534 10/19/2013 ([id number]) OFFICE/OUTPATIENT VISIT EST Diagnosis: DM W/O COMPLICATION TYPE II[ICD9: 250.00] Diagnosis: HYPERLIPIDEMIA NEC/NOS[ICD9: 272.4] Jessica KING DomingaLloyd [facility] CPT-4: 80940 05/10/2013 ([id number]) OFFICE/OUTPATIENT VISIT EST Diagnosis: SINUSITIS, ACUTE[ICD9: 461.9] Jessica Michaelcorby VO DomingaLloyd [facility] CPT-4: 92293 04/17/2013 OFFICE/OUTPATIENT VISIT EST Diagnosis: OTITIS MEDIA NOS[ICD9: 382.9] Diagnosis: COUGH[ICD9: 786.2] Suki FerreiraLucilaamrit SMITHLINE Monica GEE DO [facility] CPT-4: 54508 03/05/2013 OFFICE/OUTPATIENT VISIT EST Diagnosis: COUGH[ICD9: 786.2] Diagnosis: BRONCHITIS, ACUTE[ICD9: 466.0] Suki FerreiraLucilaamrit SMITHLINE Dominga Lloyd [facility] [employer] [facility] CPT-4: 29825 03/02/2013 OFFICE/OUTPATIENT VISIT EST Diagnosis: COUGH[ICD9: 786.2] Diagnosis: OTITIS MEDIA NOS[ICD9: 382.9] Diagnosis: BRONCHITIS, ACUTE[ICD9: 466.0] Suki SMITHLINE Dominga GEE DO [facility] CPT-4: 69776 03/01/2013 OFFICE/OUTPATIENT VISIT EST Diagnosis: DM W/O COMPLICATION TYPE II, UNCONTROLLED[ICD9: 250.02] Jessica VO DomingaLloyd [facility] CPT-4: 14342 02/22/2013 ([id number]) PREV VISIT EST AGE 40-64 Diagnosis: DM W/O COMPLICATION TYPE II, UNCONTROLLED[ICD9: 250.02] Diagnosis: HYPERTENSION[ICD9: 401.9] Diagnosis: ROUTINE MEDICAL EXAM[ICD9: V70.0] Jessica Lucas DomingaLloyd [facility] [employer] [facility] CPT-4: 02999 01/11/2013 OFFICE/OUTPATIENT VISIT EST Diagnosis: HZ (HERPES ZOSTER)[ICD9: 053.9] Kaitlynn MaloneyAidanSalguero [facility]ESSICA [facility]: 03306 11/03/2012 OFFICE/OUTPATIENT VISIT EST Diagnosis: URINARY TRACT INFECTION[ICD9: 599.0] Diagnosis: GERD[ICD9: 530.81] Diagnosis: PHARYNGITIS, ACUTE[ICD9: 462] [facility]: 76501 05/04/2012 OFFICE/OUTPATIENT VISIT EST Diagnosis: COUGH[ICD9: 786.2] Diagnosis: SINUSITIS, ACUTE[ICD9: 461.9] Diagnosis: PHARYNGITIS, ACUTE[ICD9: 462] [facility]: 66227 10/11/2011 OFFICE/OUTPATIENT VISIT EST Diagnosis: COUGH[ICD9: 786.2] Diagnosis: SINUSITIS, ACUTE[ICD9: 461.9] Diagnosis: PHARYNGITIS, ACUTE[ICD9: 462] Diagnosis: ALLERGIC RHINITIS[ICD9: 477.9] Xiomara Desai [facility]: 58485 06/23/2011 OFFICE/OUTPATIENT VISIT EST Diagnosis: COUGH[ICD9: 786.2] Diagnosis: SINUSITIS, ACUTE[ICD9: 461.9] Diagnosis: PHARYNGITIS, ACUTE[ICD9: 462] [facility]: 18842 06/14/2011 OFFICE/OUTPATIENT VISIT EST Diagnosis: SINUSITIS, ACUTE[ICD9: 461.9] Diagnosis: PHARYNGITIS, ACUTE[ICD9: 462] Jessica [facility]: 65636 12/02/2010 OFFICE/OUTPATIENT VISIT EST Diagnosis: HYPERTENSION[ICD9: 401.9] Diagnosis: HYPERLIPIDEMIA NEC/NOS[ICD9: 272.4] Diagnosis: DERMATITIS NOS[ICD9: 692.9] Jessica CARBAJAL [facility] CPT-4: 37387 11/12/2010 OFFICE/OUTPATIENT VISIT EST Jessica [facility] CPT- 4: 36880 10/13/2010 ([id number]) OFFICE/OUTPATIENT VISIT EST [facility] CPT-4: 89436 06/24/2010 ([id number]) OFFICE/OUTPATIENT VISIT EST [facility] CPT-4: 41449 06/08/2010 ([id number]) OFFICE/OUTPATIENT VISIT EST Xi[facility] CPT-4: 90115 05/20/2010 ([id number]) OFFICE/OUTPATIENT VISIT EST [facility] CPT-4: 22994 04/30/2010 ([id number]) OFFICE/OUTPATIENT VISIT, EST [facility] CPT-4: 85633 01/22/2010 Plan of Care Planned Activity Notes [...] K21.9 09/27/2018 Appointment: Jessica [facility] [phone] [facility] [place] [place] 09/27/2018 Visit Diagnosis Plan: Carpal [...] F51.01 04/24/2018 Appointment: Jessica [facility] [phone] [facility] [place] [place] 04/24/2018 Patient Education: celecoxib- [employer] [id number] Completed 04/24/2018 Patient Education: amitriptyline- [employer] [id number] Completed 04/24/2018 Visit Diagnosis Plan: Type 2 [...] M25.50 12/27/2017 Appointment: Jessica Gee [facility]el[facility] [phone] [facility] [place] FOLLOW UP 12/27/2017 Patient Education: Patient Medication Summary Completed 12/27/2017 Patient Education: Patient Medication Summary Completed 12/19/2017 Care Plan: MAMMOGRAM BOTH BREASTS LOINC : 64150-9 Pending 12/19/2017 Patient Education: Patient Medication Summary Completed 12/16/2017 Care Plan: ASSAY THYROID STIM HORMONE Pen ding 12/16/2017 Care Plan: ASSAY OF FREE THYROXINE Pendin g 12/16/2017 Care Plan: LIPID PANEL LOINC : 17766-6 Pending 12/16/2017 Care Plan: CBC Pending 12/16/2017 Care Plan: A1C HPLC LOINC : 25214-4 Pending 12/16/2017 Patient Education: Patient Medication Summary Completed 10/17/2017 Care Plan: CT ANGIOGRAPHY CHEST LOINC : 82147-7 Pending 10/17/2017 Patient Education: Patient Medication Summary Completed 10/14/2017 Care Plan: CT ANGIOGRAPHY CHEST LOINC : 75443-6 Pending 10/14/2017 Appointment: Jessica Gee WPtel: [address] [place], [place] [phone] UA 10/13/2017 Patient Education: Patient Medication Summary Completed 10/13/2017 Visit Diagnosis Plan: Pleurodynia Discussion: patient sent for stat cxray. medrol dose pack prescribed for symptom management. instructed to perform deep breathing exercises at home to prevent atelectasis or pneumonia. will notify pa tient of results of xray and order additional tests/medications as needed. ICD-9 : 786.50 ICD-10 : R07.81 10/12/2017 Appointment: Sofi Gresham [address] [place] [address] ACUTE ILLNESS 10/12/2017 Patient Education: Patient Medication [...] ICD-10 : J20.9 09/16/2017 Appointment: Sofi Gresham [address] [place], [place] [id number] ACUTE ILLNESS 09/16/2017 Patient Education: Patient Medication Summary Completed 09/16/2017 Appointment: Jessica Gee WPtel: [address] [place], [place] [phone] [place] CANCELED 08/10/2017 Visit Diagnosis Plan: Cellulitis [...] : R00.0 05/25/2017 Appointment: Jessica Gee WPtel: [facility]7 [facility] FOLLOW UP 05/25/2017 Patient Education: Patient Medication Summary Completed 05/25/2017 Visit Diagnosis Plan: Lumbago with sciatica, right britton e Discussion: Check arthritis panel Patient awaiting neck surgery before surgery will consider back surgery ICD-9 : 724.2 ICD-10 : M54.41 01/03/2017 Appointment: Jessica Gee WPtel: [phone] [facility] ACUTE ILLNESS 01/03/2017 Patient Education: Patient Medication Summary Completed 01/03/2017 Patient Education: Patient Medication Summary Completed 12/16/2016 Care Plan: MAMMOGRAM SCREENING LOINC : 2 6347-5 Pending 12/16/2016 Patient Education: Patient Medication Summary Completed 10/07/2016 Care Plan: MRI LUMBAR SPINE W/O & W/DYE LOINC : 43273-7 Pending 10/07/2016 Visit Diagnosis Plan: Essential (primary) [...] W57.XXXD 09/23/2016 Appointment: Jessica [facility]ee [facility]el[phone] [place] 09/22 confirmed WORK IN 09/23/2016 Patient Education: Patient Medication Summary Completed 09/23/2016 Visit Plan: Tick panel at [facility] Increa se spironolactone to 2 po am (New Rx sent) Take B/P at home/work and also come to office next week for recheck Will await lab results before starting any antibiotic 09/03/2016 Appointment: Kaitlynn Mosley WPtel: [address] [place] [address] ACUTE ILLNESS 09/03/2016 Patient Education: Patient Medication Summary Completed 09/03/2016 Visit Diagnosis Plan: Low back pain Discussion: Celebr ex BID PT Continue stretches at home L/S xray Follow Up: 1 months ICD-9 : 724.2 ICD-10 : M54.5 07/08/2016 Appointment: Jessica Gee WPtel: [address] [place] [address] ACUTE ILLNESS 07/08/2016 Patient Education: Patient Medication Summary Completed 07/08/2016 Care Plan: X-RAY EXAM L-S SPINE 2/3 VWS LOINC : 92069-4 Pending 07/08/2016 Visit Plan: Supportive care. Rest, Fluid s, Tylenol/Motrin prn fever or bodyaches. Notify if worsening symptoms.New toothebrush in 5 days 06/21/2016 Visit NOS Plan: Plan Notes: Supportive care. Rest, Fluids... 06/21/2016 Visit Diagnosis Plan: Acute pharyngitis, unspecified D iscussion: Strep Negative Supportive Care May use zyrtec 10mg q HS ICD-9 : 462 ICD-10 : J02.9 06/21/2016 Appointment: Jessica Gee WPtel: [address] [place], [place] [id number] ACUTE ILLNESS 06/21/2016 Patient Education: Patient Medication Summary Completed 06/21/2016 Visit Plan: No pulseox last week to comp are to today, but she does sound diminished today Studies as above ordered Continue cefdinir until results received Increase albuterol treatments to q4-6hrs PRN Continue supportive care 02/23/2016 Appointment: Janiya Gregorio [address] [place] [address] ACUTE ILLNESS 02/23/2016 Patient Education: Patient Medication Summary Completed 02/23/2016 Care Plan: CHEST X-RAY 2VW FRONTAL&LATL LOINC : 35091-0 Pending 02/23/2016 Visit Plan: Saline nasal flushes prn. Ty lenol/Motrin prn headache. Notify if persists/symptoms worsening. 02/16/2016 Appointment: Jessica Gee WPtel: [address] [place], [place] [id number] ACUTE ILLNESS 02/16/2016 Patient Education: Patient Medication Summary Completed 02/16/2016 Visit Plan: Discussed labs Continue Topr ol at 200 mg PO daily Increase Aciphex to BID Notify if increase of Aciphex does not give relief. Repeat PT/INR in 2 weeks. 02/11/2015 Appointment: Suki Barahona WPtel: [address] [place], [place] [phone] 02/10 confirmed ~sl FOLLOW UP 02/11/2015 Patient Education: Patient Medication Summary Completed 02/11/2015 Patient Education: Patient Medication Summary Completed 02/06/2015 Care Plan: POC PROTIME/INR LOINC : 24575 -6 Pending 02/06/2015 Visit Plan: Increase Toprol XL 200 mg to one full tablet daily (is currently taking only 1/2 tablet) To for EKG today Monitor daily BP Notify of any changes- increased numbness, weakness, headache etc. 01/28/2015 Appointment: Suki Barahona WPtel: [address] [place], [place] [phone] ACUTE ILLNESS 01/28/2015 Patient Education: Patient Medication Summary Completed 01/28/2015 Visit Plan: ERx Amoxicillin and Flonase Nasal saline, humidified air Facial heat or cold packs for comfort Increase fluids/rest Discussed s/s of worsening, go to over weekend if these occur. 12/06/2014 Appointment: Kaitlynn Mosley WPtel: [address] [place], [place] [phone] ACUTE ILLNESS 12/06/2014 Patient Education: Patient Medication Summary Completed 12/06/2014 Appointment: Kaitlynn Mosley WPtel: [address] [place] [address] ACUTE ILLNESS 08/09/2014 Patient Education: Patient Medication Summary Completed 08/09/2014 Appointment: Suki Barahona WPtel: [address] [place], [place] [phone] ACUTE ILLNESS 06/24/2014 Patient Education: Patient Medication Summary Completed 06/24/2014 Appointment: Suki Barahona WPtel: [address] [place], [place] [phone] ACUTE ILLNESS 03/22/2014 Patient Education: Patient Medication Summary Completed 03/22/2014 Patient Education: [employer] - Antibi otics, Analgesics 18+, Oral Contraceptives F 18+ Completed 03/22/2014 Appointment: Suki Barahona WPtel: [address] [place] [address] FOLLOW UP 03/05/2014 Patient Education: Patient Medication Summary Completed 03/05/2014 Visit Plan: Saline nasal flushes prn. Ty lenol/Motrin prn headache. Notify if persists/symptoms worsening. Restart flonase 01/16/2014 Appointment: Jessica Gee WPtel: [address] [place] [address] ACUTE ILLNESS 01/16/2014 Patient Education: Patient Medication Summary Completed 01/16/2014 Appointment: Jessica Gee WPtel: [address] [place] [address] 10/19/2013 Patient Education: Patient Medication Summary Completed 10/19/2013 Appointment: Jessica Gee WPtel: [address] [place] [address] 08/08 patient canceled appt and said will [facility] FOLLOW UP 08/09/2013 Visit Plan: Increase Coumadin to 6mg M-F and stay on 5mg Sat, Sun Add lipids to labs Check PT/INR in 3wks Continue metfromin at current dose and accuchecks 05/10/2013 Appointment: Jessica Gee WPtel: [address] [place] [address] 05/09 FOLLOW UP 05/10/2013 Patient Education: Patient Medication Summary Completed 05/10/2013 Visit Plan: Saline nasal flushes prn. Ty lenol/Motrin prn headache. Notify if persists/symptoms worsening. 04/17/2013 Appointment: Jessica Gee WPtel: [address] [place] [address] ACUTE ILLNESS 04/17/2013 Patient Education: Patient Medication Summary Completed 04/17/2013 Appointment: Suki Barahona WPtel: [address] [place] [address] FOLLOW UP 03/05/2013 Patient Education: Patient Medication Summary Completed 03/05/2013 Appointment: Suki Barahona WPtel: [address] [place] [address] FOLLOW UP 03/02/2013 Patient Education: Patient Medication Summary Completed 03/02/2013 Appointment: Suki Barahona WPtel: [address] [place] [address] ACUTE ILLNESS 03/01/2013 Patient Education: Patient Medication Summary Completed 03/01/2013 Visit Plan: Continue metformin and accuc hecks Add fish oil 1gram daily Check HbA1C, CMP in 2mos then fwup 02/22/2013 Appointment: Jessica Gee WPtel: [address] [place], [place] [phone] 02/21 work FOLLOW UP 02/22/2013 Patient Education: Patient Medication Summary Completed 02/22/2013 Visit Plan: Start Metformin Start Accuch ecks daily alternating times Will go for dilated eye exam once BS more stabilized Diabetic foot care discussed Diabetic diet info given 01/11/2013 Appointment: Jessica Gee WPtel: [address] [place], [place] [phone] FOLLOW UP 01/11/2013 Patient Education: Patient Medication Summary Completed 01/11/2013 Appointment: Dimitri Kaitlynn WPtel: [address] [place] [address] ACUTE ILLNESS 11/03/2012 Patient Education: Patient Medication Summary Completed 11/03/2012 Appointment: Xiomara Rodriguez WPtel: [address] [place] [address] ACUTE ILLNESS 05/04/2012 Patient Education: Patient Medication Summary Completed 05/04/2012 Visit Plan: pt reports that she always g ets yeast infections. Discussed that the antifungal can cause problems/increased bleeding with Coumdin. Pt. will start with probiotics and only take the Diflucan if needed. Cefdinir. 10/11/2011 Appointment: Xiomara Rodriguez WPtel: [address] [place] [address] ACUTE ILLNESS 10/11/2011 Patient Education: Patient Medication Summary Completed 10/11/2011 Appointment: Xiomara Rodriguez WPtel: [address] [place] [address] FOLLOW UP 06/23/2011 Patient Education: Patient Medication Summary Completed 06/23/2011 Visit Plan: Will prescribe an antibiotic and diflucan. Pt. reports that she frequently gets yeast infection. Discussed that she will notify if any symptoms persist. Pt. reports that her relatives have recently been hospitalized with pneumonia. 06/14/2011 Appointment: Xiomara Rodriguez WPtel: [address] [place], [place] [phone] ACUTE ILLNESS 06/14/2011 Patient Education: Patient Medication Summary Completed 06/14/2011 Visit Plan: sample of veramyst. Cefuroxi me axetil. Pt. will focus on hydration and rest. Discussed comfort measures and monitoring for worsening symptoms. 12/02/2010 Appointment: Xiomara Rodriguez WPtel: [address] [place], [place] [phone] ACUTE ILLNESS 12/02/2010 Patient Education: Patient Medication Summary Completed 12/02/2010 Visit Plan: Change HCTZ to spironolacton e will start zocor in 1 mo BP med in 1mo 11/12/2010 Appointment: Jessica Gee WPtel: [address] [place] [address] FOLLOW UP 11/12/2010 Patient Education: Patient Medication Summary Completed 11/12/2010 Appointment: Jsesica Gee WPtel: [address] [place] [address] BP CHECK 10/26/2010 Patient Education: Patient Medication Summary Completed 10/26/2010 Visit Plan: Continue Toprol at bedtime A dd HCTZ in AM BP check in 2wks Fasting lab with next PT/INR 10/13/2010 Appointment: Jessica Gee WPtel: [address] [place] [address] FOLLOW UP 10/13/2010 Patient Education: Patient Medication Summary Completed 10/13/2010 Visit Plan: Cont abx. Fwup with surgery as scheduled 06/24/2010 Appointment: Jessica Gee WPtel: [address] [place] [address] Follow Up 06/24/2010 Patient Education: Patient Medication Summary Completed 06/24/2010 Appointment: Jessica Gee WPtel: [address] [place] [address] Hospital Follow Up 06/22/2010 Visit Plan: pt [...] to subside. 06/08/2010 Appointment: Xiomara Rodriguez WPtel: [address] [place] [address] ACUTE ILLNESS 06/08/2010 Patient Education: Patient Medication Summary Completed 06/08/2010 Appointment: Xiomara Rodriguez WPtel: [address] [place], [place] [phone] [place] FOLLOW UP 06/01/2010 Appointment: Jessica Gee WPtel: [address] [place] [address] UA 05/29/2010 Patient Education: Patient Medication Summary Completed 05/29/2010 Appointment: Xiomara Rodriguez WPtel: [address] [place] [address] ACUTE ILLNESS 05/20/2010 Patient Education: Patient Medication Summary Completed 05/20/2010 Appointment: Jessica Gee WPtel: [address] [place] [address] BP CHECK 05/13/2010 Patient Education: Patient Medication Summary Completed 05/13/2010 Visit Plan: Increase Lisinopril hct to 2 0/12.5mg q AM Use atarax prn and routinely at bedtime and Medrol dose pack BP check in 3wks Pt defers stress test at this time 04/30/2010 Appointment: Jessica Gee WPtel: [address] [place] [address] ACUTE ILLNESS 04/30/2010 Patient Education: Patient Medication Summary Completed 04/30/2010 Appointment: Jessica Gee WPtel: [address] [place] [address] BP CHECK 02/27/2010 Patient Education: Patient Medication Summary Completed 02/27/2010 Visit Plan: Cont Toprol Add Altace 10mg QD Cont Wellbutrin Will likely add SSRI after BP stable BP check in 2wks 01/22/2010 Appointment: Jessica Gee WPtel: [address] [place] [address] ACUTE ILLNESS 01/22/2010 Patient Education: Patient Medication Summary Completed 01/22/2010 Referral: Rupa Raines WPtel: [address] [id number] [place] Referral Completed Referral: Neymar Alberts [facility]el[facility] [address] [facility] [place] Referral Initiated Instructions Comment . [...]
--- OUTSIDE RECORDS SUMMARY | 2019-09-10 03:16 | XMS REPORT | CCD ---
Author Author Nava Gee D.O. Organization [facility] Address [address] [place] [address] Phone Care Team Providers Care Airline Hostess Name Role Phone Jessica Gee D.O., PP Unavailable CCM Unavailable Summary Purpose Interface Exchange Insurance Providers Payer name Policy type / Coverage type Covered constitution party ID Effective Begin Date Effective End Date Blue Cross Blue Shield Blue Cross/Blue Shield [id number] Unknown Family History Family History data not found Social History Social History Element Codes Description Effective Dates Tobacco history SNOMED CT: 497991474 Never smoker 10/13/2010 Allergies, Adverse Reactions, Alerts [...] findings ICD-9: V70.0 ICD-10: Z00.00 12/16/2017 Active [facility] (current) use of anticoagulants ICD-9: V58.6 1 [...] 05/17/2019 Active pravastatin 40 mg tablet RxNorm: 500259 TAKE 1 TABLET BY MOUTH ONCE DAILY 03/19/2019 06/16/2019 Active Coumadin 5 mg tablet RxNorm: 653819 TAKE 1 TABLET BY MOUTH ONCE DAILY 02/28/2019 No Stop Date Active warfarin 1 mg tablet RxNorm: 714106 TAKE 1 TABLET BY [place] UT ONCE DAILY. TAKE AN ADDITIONAL TABLET ON TUESDAY AND Tuesday02/28/2019 No Stop Date Active omeprazole 40 mg capsule,delayed release RxNorm: 989482 TAKE 1 CAPSULE BY MOUTH TWICE DAILY 02/19/2019 No Stop Date Active metformin ER 500 mg tablet,extended release 24 hr RxNorm: 86 0975 1 Tablet(s) PO BID 02/19/2019 03/18/2019 Inactive metformin ER 500 mg tablet,extended release 24 hr RxNorm: 86 0975 1 Tablet(s) PO BID 01/15/2019 02/13/2019 Inactive alprazolam 0.25 mg tablet RxNorm: 535856 1 Tablet(s) Oral prior to flight 01/03/2019 No Stop Date Active omeprazole 40 mg capsule,delayed release RxNorm: 210645 TAKE 1 CAPSULE BY MOUTH TWICE DAILY 12/20/2018 02/18/2019 Inactive metformin ER 500 mg tablet,extended release 24 hr RxNorm: 86 0975 1 Tablet(s) PO BID 12/11/2018 01/09/2019 Inactive pravastatin 40 mg tablet RxNorm: 015951 TAKE 1 TABLET BY MOUTH ONCE DAILY 12/11/2018 03/18/2019 Inactive Coumadin 5 mg tablet RxNorm: 720959 1 Tablet(s) PO QD 11/27/201809/2018 Inactive metformin ER 500 mg tablet,extended release 24 hr RxNorm: 86 0975 1 Tablet(s) PO BID 10/02/2018 11/30/2018 Inactive warfarin 1 mg tablet RxNorm: 502494 TAKE 1 TABLET BY [facility] ONCE DAILY. TAKE AN ADDITIONAL TABLET ON TUESDAY AND Tuesday10/02/2018 02/27/2019 Inactiv e warfarin 5 mg tablet RxNorm: 716265 1 Tablet(s) PO QD 09/27/201810/2018 Inactive Bactrim DS 800 mg-160 mg tablet RxNorm: 661566 1 Tablet(s) PO BID 0 09/27/2018 10/03/2018 Inactive Toprol XL 200 mg tablet,extended release RxNorm: 156522 1 Table t(s) PO QD 09/18/2018 03/16/2019 Inactive omeprazole 40 mg capsule,delayed release RxNorm: 959424 TAKE 1 CAPSULE BY MOUTH TWICE DAILY 09/11/2018 12/19/2018 Inactive Coumadin 5 mg tablet RxNorm: 083213 1 Tablet(s) PO QD 08/21/201811/2018 Inactive metformin ER 500 mg tablet,extended release 24 hr RxNorm: 86 0975 1 Tablet(s) PO BID 07/31/2018 09/28/2018 Inactive omeprazole 40 mg capsule,delayed release RxNorm: 852649 TAKE 1 CAPSULE BY MOUTH TWICE DAILY 06/27/2018 09/10/2018 Inactive metformin ER 500 mg tablet,extended release 24 hr RxNorm: 86 0975 Tablet(s) 1 Tablet(s) PO BID 06/27/2018 07/31/2018 Inactive Toprol XL 200 mg tablet,extended release RxNorm: 447307 1 Table t(s) PO QD 06/14/2018 09/17/2018 Inactive Coumadin 5 mg tablet RxNorm: 884797 1 Tablet(s) PO QD 06/14/201804/2018 Inactive metformin ER 500 mg tablet,extended release 24 hr RxNorm: 86 0975 Tablet(s) 1 Tablet(s) PO BID 05/22/2018 06/26/2018 Inactive Coumadin 5 mg tablet RxNorm: 483564 TAKE 1 TABLET BY MOUTH ONCE DAILY 05/11/2018 06/14/2018 Inactive Lovenox 40 mg/0.4 mL subcutaneous syringe RxNorm: 950336 40 Mil ligram(s) SQ QD 05/05/2018 09/26/2018 Inactive amitriptyline 25 mg tablet RxNorm: 137480 1 Tablet(s) PO QHS fo r sleep/HAs 04/24/2018 10/20/2018 Inactive [employer] Bi[employer]Touch Ultra Test strips RxNorm: Test blood sugar sigrid y (Dx:E11.65) 04/24/2018 No Stop Date Active celecoxib 200 mg capsule RxNorm: 729848 1 Capsule(s) PO BID 019 10/20/2018 Inactive Celebrex 200 mg capsule RxNorm: 431581 TAKE 1 CAPSULE BY MOUTH ONCE DAILY 04/19/2018 04/23/2018 Inactive warfarin 1 mg tablet RxNorm: 067138 1 Tablet(s) PO QD a nd additional tablet on Tue & Th04/14/2018 10/01/2018 Inactive Toprol XL 200 mg tablet,extended release RxNorm: 586222 TAKE 1 TABLET BY MOUTH ONCE DAILY 04/11/2018 06/14/2018 Inactive metformin ER 500 mg tablet,extended release 24 hr RxNorm: 86 0975 Tablet(s) 1 Tablet(s) PO BID 03/17/2018 05/21/2018 Inactive Coumadin 5 mg tablet RxNorm: 897018 TAKE 1 TABLET BY MOUTH ONCE DAILY 03/15/2018 05/10/2018 Inactive Lovenox 40 mg/0.4 mL subcutaneous syringe RxNorm: 758181 40 Mil ligram(s) SQ QD 01/27/2018 04/11/2018 Inactive omeprazole 40 mg capsule,delayed release RxNorm: 677892 TAKE 1 CAPSULE BY MOUTH TWICE DAILY 01/23/2018 06/26/2018 Inactive pravastatin 40 mg tablet RxNorm: 428222 TAKE 1 TABLET BY MOUTH ONCE DAILY 01/23/2018 12/10/2018 Inactive metformin ER 500 mg tablet,extended release 24 hr RxNorm: 86 0975 Tablet(s) 1 Tablet(s) PO BID 01/16/2018 01/15/2018 Inactive Toprol XL 200 mg tablet,extended release RxNorm: 317621 TAKE 1 TABLET BY MOUTH ONCE DAILY 01/16/2018 04/10/2018 Inactive Coumadin 5 mg tablet RxNorm: 315675 TAKE 1 TABLET BY MOUTH ONCE DAILY 01/06/2018 03/14/2018 Inactive Celebrex 200 mg capsule RxNorm: 306485 1 Capsule(s) PO BID 12/28/19 18 03/26/2018 Inactive metformin ER 500 mg tablet,extended release 24 hr RxNorm: 86 0975 1 Tablet(s) PO BID Needs APPT 12/21/2017 01/16/2018 Inactive omeprazole 40 mg capsule,delayed release RxNorm: 305702 TAKE 1 CAPSULE BY MOUTH TWICE DAILY 11/02/2017 01/22/2018 Inactive Celebrex 200 mg capsule RxNorm: 408691 1 Capsule(s) PO QD 11/01/2017 12/26/2017 Inactive Coumadin 5 mg tablet RxNorm: 732219 Tablet(s) TAKE ONE TABLET BY MOUTH ONCE DAILY. 10/31/2017 12/29/2017 Inactive warfarin 1 mg tablet RxNorm: 445430 1 Tablet(s) PO QD 10/31/201703/22 Inactive spironolactone 25 mg tablet RxNorm: 130784 TAKE TWO TAB LETS BY MOUTH IN THE MORNING 10/31/2017 04/23/2018 Inactive metformin ER 500 mg tablet,extended release 24 hr RxNorm: 86 0975 1 Tablet(s) PO BID Needs updated fasting lab 10/20/2017 12/21/2017 Inactive Medrol (Dale) 4 mg tablets in a dose pack RxNorm: 020104 Tablet(s) PO take as directed 10/12/2017 12/15/2017 Inactive Celebrex 200 mg capsule RxNorm: 831159 1 Capsule(s) PO QD 10/03/2017 10/02/2017 Inactive spironolactone 25 mg tablet RxNorm: 673640 TAKE TWO TAB LETS BY MOUTH IN THE MORNING 09/19/2017 10/30/2017 Inactive Zithromax Z-Dale 250 mg tablet RxNorm: 263711 Tablet(s) PO take as directed 09/16/2017 10/11/2017 Inactive Medrol (Dale) 4 mg tablets in a dose pack RxNorm: 608120 Tablet(s) take as directed PO 09/16/2017 10/11/2017 Inactive doxycycline hyclate 100 mg tablet RxNorm: 0546349 1 Tablet(s) PO BI D 09/16/2017 09/15/2017 Inactive doxycycline hyclate 100 mg tablet RxNorm: 1399865 1 Tablet(s) PO BI D 09/16/2017 09/25/2017 Inactive Tessalon Perles 100 mg capsule RxNorm: 257673 1 Capsule(s) PO T ID as needed 09/16/2017 12/15/2017 Inactive warfarin 1 mg tablet RxNorm: 178486 1 Tablet(s) PO QD 09/06/201710/19 Inactive Coumadin 5 mg tablet RxNorm: 034062 Tablet(s) TAKE ONE TABLET BY MOUTH ONCE DAILY. 09/06/2017 10/31/2017 Inactive Toprol XL 200 mg tablet,extended release RxNorm: 671238 1 Table t(s) PO QD 2017 01/02/2018 Inactive warfarin 1 mg tablet RxNorm: 251066 1 Tablet(s) PO QD DUE FOR L ABS AUGUST 12 08/29/2017 09/06/2017 Inactive Coumadin 5 mg tablet RxNorm: 976916 Tablet(s) TAKE ONE TABLET BY MOUTH ONCE DAILY. DUE FOR PT/INR AUGUST 12 08/29/2017 09/06/2017 Inactive Coumadin 5 mg tablet RxNorm: 526530 Tablet(s) TAKE ONE TABLET BY MOUTH ONCE DAILY. DUE FOR PT/INR AUGUST 12 08/01/2017 08/29/2017 Inactive warfarin 1 mg tablet RxNorm: 497740 1 Tablet(s) PO QD DUE FOR L ABS AUGUST 12 08/01/2017 08/29/2017 Inactive scopolamine 1 mg over 3 days transdermal patch RxNorm: 42142 2 1 TD take off in 72 hours. 08/01/2017 12/26/2017 Inactive pravastatin 40 mg tablet RxNorm: 233063 Tablet(s) TAKE ONE TABLET BY MOUTH ONCE DAILY 07/07/2017 01/02/2018 Inactive Coumadin 5 mg tablet RxNorm: 078807 Tablet(s) TAKE ONE TABLET BY MOUTH ONCE DAILY. DUE FOR PT/INR. 06/29/2017 08/01/2017 Inactive warfarin 1 mg tablet RxNorm: 587916 1 Tablet(s) PO QD 06/29/201707/19 Inactive Coumadin 5 mg tablet RxNorm: 017722 TAKE ONE TABLET BY MOUTH ONCE DAILY. DUE FOR PT/INR. 05/30/2017 06/29/2017 Inactive omeprazole 40 mg capsule,delayed release RxNorm: 129889 1 Capsu le(s) PO BID 05/30/2017 08/27/2017 Inactive Celebrex 200 mg capsule RxNorm: 170118 1 Capsule(s) PO QD 05/23/2017 10/03/2017 Inactive metformin ER 500 mg tablet,extended release 24 hr RxNorm: 86 0975 TAKE ONE TABLET BY MOUTH TWICE DAILY 05/20/2017 10/20/2017 Inactive Coumadin 5 mg tablet RxNorm: 238155 1 Tablet(s) PO QD due for PT/IN R 04/25/2017 05/24/2017 Inactive warfarin 1 mg tablet RxNorm: 500159 1 Tablet(s) PO QD due for l abs this week 03/16/2017 06/29/2017 Inactive omeprazole 40 mg capsule,delayed release RxNorm: 109423 1 Capsu le(s) PO BID 03/16/2017 05/30/2017 Inactive Celebrex 200 mg capsule RxNorm: 602755 1 Capsule(s) PO BID as n eeded for pain 03/16/2017 05/22/2017 Inactive Coumadin 5 mg tablet RxNorm: 610089 1 Tablet(s) PO QD due for PT/IN R 03/16/2017 04/14/2017 Inactive Celebrex 200 mg capsule RxNorm: 249969 1 Capsule(s) PO BID as n eeded for pain 02/09/2017 03/15/2017 Inactive Toprol XL 200 mg tablet,extended release RxNorm: 510561 1 Table t(s) PO QD 02/08/2017 2017 Inactive Celebrex 200 mg capsule RxNorm: 189779 1 Capsule(s) PO BID as n eeded for pain 01/14/2017 02/08/2017 Inactive omeprazole 40 mg capsule,delayed release RxNorm: 510281 1 Capsu le(s) PO BID 01/12/2017 03/16/2017 Inactive Coumadin 5 mg tablet RxNorm: 771961 1 Tablet(s) PO QD 12/15/201602/19 Inactive warfarin 1 mg tablet RxNorm: 166020 1 Tablet(s) PO QD 12/15/201602/19 Inactive metformin ER 500 mg tablet,extended release 24 hr RxNorm: 86 0975 Tablet(s) TAKE ONE TABLET BY MOUTH TWICE DAILY 11/29/2016 02/26/2017 Inactive omeprazole 40 mg capsule,delayed release RxNorm: 005465 1 Capsu le(s) PO BID 11/29/2016 12/28/2016 Inactive pravastatin 40 mg tablet RxNorm: 675683 Tablet(s) TAKE ONE TABLET BY MOUTH ONCE DAILY 11/19/2016 07/07/2017 Inactive omeprazole 40 mg capsule,delayed release RxNorm: 813950 1 Capsu le(s) PO BID 10/19/2016 10/18/2016 Inactive omeprazole 40 mg capsule,delayed release RxNorm: 770503 1 Capsu le(s) PO BID 10/19/2016 11/17/2016 Inactive pantoprazole 40 mg tablet,delayed release RxNorm: 739617 1 Tabl et(s) PO QD 09/30/2016 10/18/2016 Inactive pantoprazole 40 mg tablet,delayed release RxNorm: 146473 1 Tabl et(s) PO QD 09/30/2016 09/29/2016 Inactive Zofran ODT 4 mg disintegrating tablet RxNorm: 002822 1 Tablet(s) PO Q4H as needed for nausea 09/15/2016 01/02/2017 Inactive Coumadin 5 mg tablet RxNorm: 834943 1 Tablet(s) PO QD 09/14/201611/20 Inactive warfarin 1 mg tablet RxNorm: 874191 1 Tablet(s) PO QD 09/14/201611/20 Inactive spironolactone 25 mg tablet RxNorm: 186187 2 Tablet(s) PO QAM 09/0301/02/2017 Inactive Wellbutrin XL 300 mg 24 hr tablet, extended release RxNorm: 778239 TAKE ONE TABLET BY MOUTH ONCE DAILY 08/26/2016 12/26/2017 Inactive Toprol XL 200 mg tablet,extended release RxNorm: 249262 1 Table t(s) PO QD 07/28/2016 02/08/2017 Inactive metformin ER 500 mg tablet,extended release 24 hr RxNorm: 86 0975 Tablet(s) TAKE ONE TABLET BY MOUTH TWICE DAILY 07/15/2016 11/29/2016 Inactive cyclobenzaprine 5 mg tablet RxNorm: 632326 1 Tablet(s) PO QHS f or spasm 07/08/2016 08/06/2016 Inactive Celebrex 200 mg capsule RxNorm: 1 Capsule(s) PO BID 07/08/2016 Inactive spironolactone 25 mg tablet RxNorm: 206291 1 Tablet(s) PO QAM 07/0609/02/2016 Inactive Wellbutrin XL 300 mg 24 hr tablet, extended release RxNorm: 319210 TAKE ONE TABLET BY MOUTH ONCE DAILY 06/15/2016 07/14/2016 Inactive Coumadin 5 mg tablet RxNorm: 877688 1 Tablet(s) PO QD 06/08/201608/20 Inactive warfarin 1 mg tablet RxNorm: 474604 1 Tablet(s) PO QD 06/08/201608/20 Inactive Toprol XL 200 mg tablet,extended release RxNorm: 806976 TAKE ONE TABLET BY MOUTH ONCE DAILY 04/26/2016 07/28/2016 Inactive pravastatin 40 mg tablet RxNorm: 486324 TAKE ONE TABLET BY MOUT H ONCE DAILY 04/19/2016 10/15/2016 Inactive Coumadin 5 mg tablet RxNorm: 935446 1 Tablet(s) PO QD 03/09/201605/19 Inactive warfarin 1 mg tablet RxNorm: 623405 1 Tablet(s) PO QD 03/09/201605/19 Inactive metformin ER 500 mg tablet,extended release 24 hr RxNorm: 86 0975 TAKE ONE TABLET BY MOUTH TWICE DAILY 02/25/2016 07/15/2016 Inactive spironolactone 25 mg tablet RxNorm: 464380 TAKE ONE TAB LET BY MOUTH ONCE DAILY IN THE MORNING 02/25/2016 07/06/2016 Inactive prednisone 20 mg tablet RxNorm: 979314 1 Tablet(s) PO QAM 02/16/2016 02/20/2016 Inactive cefdinir 300 mg capsule RxNorm: 337938 2 Capsule(s) PO QD 02/16/2016 02/25/2016 Inactive Toprol XL 200 mg tablet,extended release RxNorm: 961492 TAKE ONE TABLET BY MOUTH ONCE DAILY 01/26/2016 04/24/2016 Inactive Aciphex 20 mg tablet,delayed release RxNorm: 728332 1 Tablet(s) PO BID 12/24/2015 09/29/2016 Inactive Omeprazole and Pepci d have not helped. Coumadin 5 mg tablet RxNorm: 787209 1 Tablet(s) PO QD 12/10/201502/19 Inactive Coumadin 5 mg tablet RxNorm: 938960 1 Tablet(s) PO QD 12/08/201511/20 Inactive Toprol XL 200 mg tablet,extended release RxNorm: 558170 TAKE ONE TABLET BY MOUTH ONCE DAILY 11/20/2015 01/18/2016 Inactive warfarin 1 mg tablet RxNorm: 124459 1 Tablet(s) PO QD 11/03/201502/19 Inactive pravastatin 40 mg tablet RxNorm: 341262 Tablet(s) TAKE ONE TABLET BY MOUTH ONCE DAILY 10/20/2015 01/17/2016 Inactive pravastatin 40 mg tablet RxNorm: 977664 TAKE ONE TABLET BY MOUT H ONCE DAILY 10/20/2015 10/19/2015 Inactive metformin ER 500 mg tablet,extended release 24 hr RxNorm: 86 0975 TAKE ONE TABLET BY MOUTH TWICE DAILY 10/03/2015 12/31/2015 Inactive Toprol XL 200 mg tablet,extended release RxNorm: 314124 TAKE ONE TABLET BY MOUTH ONCE DAILY 09/17/2015 11/15/2015 Inactive Coumadin 5 mg tablet RxNorm: 307040 1 Tablet(s) PO QD 09/02/201511/19 Inactive Wellbutrin XL 300 mg 24 hr tablet, extended release RxNorm: 982032 TAKE ONE TABLET BY MOUTH ONCE DAILY 08/01/2015 10/29/2015 Inactive Pepcid 20 mg tablet RxNorm: 475340 1 Tablet(s) PO BID as needed 05/24/2017 Inactive warfarin 1 mg tablet RxNorm: 954289 TAKE ONE TABLET BY MOUTH ON CE DAILY 07/08/2015 11/03/2015 Inactive pravastatin 40 mg tablet RxNorm: 965887 1 Tablet(s) PO QD 07/08/2015 10/05/2015 Inactive spironolactone 25 mg tablet RxNorm: 527154 TAKE ONE TAB LET BY MOUTH ONCE DAILY IN THE MORNING 06/13/2015 09/10/2015 Inactive Coumadin 5 mg tablet RxNorm: 785414 1 Tablet(s) PO QD 06/05/201508/19 Inactive Wellbutrin XL 300 mg 24 hr tablet, extended release RxNorm: 916106 TAKE ONE TABLET BY MOUTH ONCE DAILY 05/16/2015 09/26/2018 Inactive Wellbutrin XL 300 mg 24 hr tablet, extended release RxNorm: 090901 TAKE ONE TABLET BY MOUTH ONCE DAILY 05/16/2015 06/14/2015 Inactive metformin ER 500 mg tablet,extended release 24 hr RxNorm: 86 0975 TAKE ONE TABLET BY MOUTH TWICE DAILY 05/16/2015 08/13/2015 Inactive pravastatin 40 mg tablet RxNorm: 625794 1 Tablet(s) PO QD 04/10/2015 07/07/2015 Inactive Aciphex 20 mg tablet,delayed release RxNorm: 386790 1 Tablet(s) PO BID 03/07/2015 09/02/2015 Inactive Omeprazole and Pepci d have not helped. Toprol XL 200 mg tablet,extended release RxNorm: 442054 1 Table t(s) PO QD 03/05/2015 08/31/2015 Inactive Aciphex 20 mg tablet,delayed release RxNorm: 469412 1 Tablet(s) PO QD 03/04/2015 03/06/2015 Inactive Omeprazole and Pepci d have not helped. Coumadin 5 mg tablet RxNorm: 361011 1 Tablet(s) PO QD 02/28/201511/2015 Inactive Aciphex 20 mg tablet,delayed release RxNorm: 877827 1 Tablet(s) PO BID 02/11/2015 03/03/2015 Inactive Omeprazole and Pepci d have not helped. metformin ER 500 mg tablet,extended release 24 hr RxNorm: 86 0975 1 Tablet(s) PO BID 01/10/2015 04/09/2015 Inactive pravastatin 40 mg tablet RxNorm: 563803 1 Tablet(s) PO QD 01/06/2015 04/05/2015 Inactive Wellbutrin XL 300 mg 24 hr tablet, extended release RxNorm: 803000 TAKE ONE TABLET BY MOUTH ONCE DAILY 12/19/2014 02/16/2015 Inactive amoxicillin 500 mg capsule RxNorm: 428916 2 Capsule(s) PO BID 12/0612/15/2014 Inactive Flonase 50 mcg/actuation nasal spray,suspension RxNorm: 8963 23 2 [place] each nostril NASAL QD 12/06/2014 03/05/2015 Inactive Coumadin 5 mg tablet RxNorm: 174940 1 Tablet(s) PO QD 11/28/201410/2014 Inactive spironolactone 25 mg tablet RxNorm: 245001 1 Tablet(s) PO QAM 11/2602/23/2015 Inactive Coumadin 5 mg tablet RxNorm: 579578 1 Tablet(s) PO QD 1 Tablet(s) PO QD- NEED TO CHECK LABS 10/30/2014 11/28/2014 Inactive warfarin 1 mg tablet RxNorm: 048263 1 Tablet(s) PO QD 10/30/201409/2015 Inactive Aciphex 20 mg tablet,delayed release RxNorm: 246831 1 Tablet(s) PO QD 10/02/2014 02/10/2015 Inactive Omeprazole and Pepci d have not helped. Coumadin 5 mg tablet RxNorm: 545452 1 Tablet(s) PO QD 1 Tablet(s) PO QD- NEED TO CHECK LABS 09/30/2014 10/30/2014 Inactive pravastatin 40 mg tablet RxNorm: 026609 1 Tablet(s) PO QD 09/25/2014 01/06/2015 Inactive warfarin 1 mg tablet RxNorm: 477318 1 Tablet(s) PO QD T [place] ONE TABLET BY MOUTH DIRECTED ON MON AND THUR 08/28/2014 10/29/2014 Inactive metformin ER 500 mg tablet,extended release 24 hr RxNorm: 86 0975 1 Tablet(s) PO BID 08/28/2014 01/10/2015 Inactive amoxicillin 875 mg tablet RxNorm: 148522 1 Tablet(s) PO BID 015 08/18/2014 Inactive Toprol XL 200 mg tablet,extended release RxNorm: 331321 TAKE ONE TABLET BY MOUTH ONCE DAILY 07/22/2014 03/05/2015 Inactive Coumadin 5 mg tablet RxNorm: 062829 1 Tablet(s) PO QD 07/01/201409/18 Inactive amoxicillin 875 mg tablet RxNorm: 309748 1 Tablet(s) PO BID 015 06/30/2014 Inactive pravastatin 40 mg tablet RxNorm: 220938 1 Tablet(s) PO QD needs fasting labs 06/19/2014 09/25/2014 Inactive Coumadin 5 mg tablet RxNorm: 282790 1 Tablet(s) PO QD 1 Tablet(s) PO QD TAKE ONE TABLET BY MOUTH ONCE DAILY-need labs 05/28/2014 07/01/2014 Inactive warfarin 1 mg tablet RxNorm: 585525 1 Tablet(s) PO As Directed 05/1908/28/2014 Inactive pravastatin 40 mg tablet RxNorm: 825581 1 Tablet(s) PO QD needs fasting labs 05/14/2014 06/19/2014 Inactive metformin ER 500 mg tablet,extended release 24 hr RxNorm: 86 0975 1 Tablet(s) PO BID 04/25/2014 08/28/2014 Inactive spironolactone 25 mg tablet RxNorm: 230791 1 Tablet(s) PO QAM 04/2511/26/2014 Inactive Coumadin 5 mg tablet RxNorm: 924540 1 Tablet(s) PO QD 1 Tablet(s) PO QD TAKE ONE TABLET BY MOUTH ONCE DAILY 04/23/2014 05/28/2014 Inactive Coumadin 5 mg tablet RxNorm: 665773 1 Tablet(s) PO QD 1 Tablet(s) PO QD TAKE ONE TABLET BY MOUTH ONCE DAILY 03/22/2014 04/20/2014 Inactive Tessalon Perles 100 mg capsule RxNorm: 258554 1 Capsule(s) PO TID 0 03/22/2014 03/28/2014 Inactive cefdinir 300 mg capsule RxNorm: 839403 2 Capsule(s) PO QD 03/22/2014 03/31/2014 Inactive Medrol (Dale) 4 mg tablets in a dose pack RxNorm: 204851 Tablet(s) PO as directed 03/05/2014 08/08/2014 Inactive Coumadin 5 mg tablet RxNorm: 857745 1 Tablet(s) PO QD 1 Tablet(s) PO QD TAKE ONE TABLET BY MOUTH ONCE DAILY 02/19/2014 03/20/2014 Inactive pravastatin 40 mg tablet RxNorm: 935797 1 Tablet(s) PO QD 02/04/2014 05/14/2014 Inactive Coumadin 5 mg tablet RxNorm: 218272 1 Tablet(s) PO QD T [place] ONE TABLET BY MOUTH ONCE DAILY 01/21/2014 02/19/2014 Inactive Medrol (Dale) 4 mg tablets in a dose pack RxNorm: 833510 Tablet(s) PO as directed 01/18/2014 03/04/2014 Inactive cefdinir 300 mg capsule RxNorm: 055493 2 Capsule(s) PO QD 01/16/2014 01/25/2014 Inactive metformin ER 500 mg tablet,extended release 24 hr RxNorm: 86 0975 1 Tablet(s) PO BID 12/17/2013 04/25/2014 Inactive Wellbutrin SR 150 mg tablet,sustained-release RxNorm: 996778 1 Tablet(s) PO BID 11/30/2013 02/27/2014 Inactive spironolactone 25 mg tablet RxNorm: 711445 1 Tablet(s) PO QAM 10/2204/25/2014 Inactive Macrobid 100 mg capsule RxNorm: 196288 1 Capsule(s) PO BID 10/20/19 14 10/25/2013 Inactive Macrobid 100 mg capsule RxNorm: 579435 1 Capsule(s) PO BID 10/20/19 14 10/18/2013 Inactive Toprol XL 100 mg tablet,extended release RxNorm: 372655 1 Table t(s) PO QD 10/15/2013 01/15/2014 Inactive Toprol XL 200 mg tablet,extended release RxNorm: 806358 1 Table t(s) PO QD 10/02/2013 07/22/2014 Inactive Wellbutrin XL 300 mg 24 hr tablet, extended release RxNorm: 768598 1 Tablet(s) PO QD 09/28/2013 12/19/2014 Inactive Aciphex 20 mg tablet,delayed release RxNorm: 820525 1 Tablet(s) PO QD 08/29/2013 10/02/2014 Inactive Omeprazole and Pepci d have not helped. Coumadin 5 mg tablet RxNorm: 806054 1 Tablet(s) PO QD 08/14/201307/20 Inactive Coumadin 5 mg tablet RxNorm: 252175 1 Tablet(s) PO QD 08/14/201305/2013 Inactive pravastatin 40 mg tablet RxNorm: 645826 1 Tablet(s) PO QD 07/24/2013 02/04/2014 Inactive warfarin 1 mg tablet RxNorm: 160478 1 Tablet(s) PO QD T [place] ONE TABLET BY MOUTH DIRECTED ON TUE AND 07/09/2013 05/28/2014 Inactive warfarin 5 mg tablet RxNorm: 900062 1 Tablet(s) PO QD T [place] ONE TABLET BY MOUTH EVERY DAY 06/08/2013 07/07/2013 Inactive spironolactone 25 mg tablet RxNorm: 311770 1 Tablet(s) PO QAM 05/3010/15/2013 Inactive clindamycin 300 mg capsule RxNorm: 073621 2 Capsule(s) PO TID 04/1704/30/2013 Inactive warfarin 5 mg tablet RxNorm: 795873 1 Tablet(s) PO QD 03/12/201305/20 Inactive azithromycin 250 mg tablet RxNorm: 282076 2 Tablet(s) PO QD 013 03/07/2013 Inactive metformin ER 500 mg tablet,extended release 24 hr RxNorm: 86 0975 1 Tablet(s) PO BID 02/22/2013 12/17/2013 Inactive spironolactone 25 mg tablet RxNorm: 213005 1 Tablet(s) PO QAM 01/2205/30/2013 Inactive metformin ER 500 mg tablet,extended release 24 hr RxNorm: 86 0977 1 Tablet(s) PO BID 01/11/2013 02/21/2013 Inactive pravastatin 40 mg tablet RxNorm: 307841 1 Tablet(s) PO QD 01/11/2013 07/24/2013 Inactive warfarin 5 mg tablet RxNorm: 610695 1 Tablet(s) PO QD 01/04/201302/19 Inactive warfarin 1 mg tablet RxNorm: 457831 Tablet(s) PO TAKE O NE TABLET BY MOUTH DIRECTED ON MON AND THUR 12/14/2012 07/08/2013 Inactive scopolamine 1.5 mg 72 hr Transderm Patch RxNorm: 233806 TD Apply 1 patch behind ear every 72 hours, replace after 3 days. 11/08/2012 01/15/2014 Inacti ve Pepcid 20 mg tablet RxNorm: 944414 1 Tablet(s) PO BID as needed 01/31/2013 Inactive Famvir 500 mg tablet RxNorm: 536862 1 Tablet(s) PO Q8H 11/03/2012 Inactive Aciphex 20 mg tablet,delayed release RxNorm: 284358 1 Tablet(s) PO QD 11/03/2012 05/01/2013 Inactive Omeprazole and Pepci d have not helped. gabapentin 300 mg capsule RxNorm: 674042 Capsule(s) PO TID 11/04/19 13 01/15/2014 Inactive warfarin 5 mg tablet RxNorm: 021654 1 Tablet(s) PO QD 11/02/201212/19 Inactive Wellbutrin XL 300 mg 24 hr tablet, extended release RxNorm: 118430 1 Tablet(s) PO QD 10/17/2012 04/30/2013 Inactive pravastatin 40 mg tablet RxNorm: 299631 Tablet(s) PO TA KE ONE TABLET BY MOUTH EVERY DAY. NEED FASTING LABS 09/18/2012 01/10/2013 Inactive Toprol XL 200 mg tablet,extended release RxNorm: 446351 Tablet(s) PO TAKE ONE TABLET BY MOUTH EVERY DAY 09/08/2012 10/01/2013 Inactive warfarin 5 mg tablet RxNorm: 176395 1 Tablet(s) PO QD 08/31/201210/19 Inactive pravastatin 40 mg tablet RxNorm: 050776 1 Tablet(s) PO QD Needs fasting labs 08/18/2012 09/16/2012 Inactive TAKE ONE TABLET BY M OUTH EVERY DAY warfarin 1 mg tablet RxNorm: 366536 1 Tablet(s) PO As directed on Mon and Thurs 08/11/2012 12/13/2012 Inactive spironolactone 25 mg tablet RxNorm: 924590 1 Tablet(s) PO QAM 07/1110/08/2012 Inactive warfarin 5 mg tablet RxNorm: 006111 1 Tablet(s) PO QD 07/03/201208/19 Inactive Diflucan 100 mg tablet RxNorm: 175028 1 Tablet(s) PO QD 05/04/2012 Inactive Cipro 500 mg tablet RxNorm: 966844 1 Tablet(s) PO BID 05/04/201204/22 Inactive Aciphex 20 mg tablet,delayed release RxNorm: 191332 1 Tablet(s) PO QD 05/04/2012 07/02/2012 Inactive Omeprazole and Pepci d have not helped. warfarin 5 mg tablet RxNorm: 430983 1 Tablet(s) PO QD 05/02/201206/19 Inactive warfarin 5 mg tablet RxNorm: 180143 1 Tablet(s) PO QD 03/02/201204/21 Inactive Toprol XL 200 mg tablet,extended release RxNorm: 653874 1 Table t(s) PO QD 03/02/2012 05/30/2012 Inactive spironolactone 25 mg tablet RxNorm: 591262 1 Tablet(s) PO QAM 02/0707/11/2012 Inactive pravastatin 40 mg tablet RxNorm: 887462 Tablet(s) PO 01/31/201208/17 Inactive TAKE ONE TABLET BY MOUTH EVERY DAY pravastatin 40 mg tablet RxNorm: 235098 1 Tablet(s) PO QD 01/31/2012 08/18/2012 Inactive omeprazole 40 mg capsule,delayed release RxNorm: 225745 1 Capsule(s) PO QD for stomach 01/11/2012 11/02/2012 Inactive for stomach warfarin 5 mg tablet RxNorm: 657116 1 Tablet(s) PO QD 01/03/201202/18 Inactive warfarin 5 mg tablet RxNorm: 668350 1 Tablet(s) PO QD 12/03/201112/19 Inactive pravastatin 40 mg tablet RxNorm: 993696 1 Tablet(s) PO QD 11/25/2011 01/23/2012 Inactive cefdinir 300 mg Cap RxNorm: 889525 1 Capsule(s) PO BID 10/11/201103/2011 Inactive Culturelle 10 billion cell Cap RxNorm: 014701 1 Capsule(s) PO BID 0 10/11/2011 11/09/2011 Inactive Diflucan 100 mg Tab RxNorm: 375751 1 Tablet(s) PO QD 10/11/201110/19 Inactive Wellbutrin XL 300 mg 24 hr tablet, extended release RxNorm: 768715 1 Tablet(s) PO QD 09/14/2011 10/17/2012 Inactive pravastatin 40 mg tablet RxNorm: 454458 1 Tablet(s) PO QD 08/25/2011 11/25/2011 Inactive Coumadin 5 mg tablet RxNorm: 485246 Tablet(s) PO Take as direct ed by doctor. 07/07/2011 12/03/2011 Inactive Singulair 10 mg Tab RxNorm: 024518 1 Tablet(s) PO QD al lergy medication. (Please try to be consistent in dosing) 06/23/2011 01/15/2014 Inactive Diflucan 100 mg Tab RxNorm: 505445 1 Tablet(s) PO QD 06/14/201107/02 Inactive cefdinir 300 mg Cap RxNorm: 443916 1 Capsule(s) PO BID 06/14/201106/2011 Inactive pravastatin 40 mg Tab RxNorm: 524605 1 Tablet(s) PO QD 05/25/201108/2011 Inactive warfarin 5 mg Tab RxNorm: 908377 Tablet(s) PO 05/25/2011 10/18/2011 In active TAKE ONE TABLET BY MOUTH EVERY DAY Toprol XL 200 mg tablet,extended release RxNorm: 024208 1 Table t(s) PO QD 03/05/2011 06/02/2011 Inactive spironolactone 25 mg tablet RxNorm: 443707 1 Tablet(s) PO QAM 02/2402/08/2012 Inactive omeprazole 40 mg capsule,delayed release RxNorm: 369493 1 Capsule(s) PO QD for stomach 01/06/2011 01/11/2012 Inactive for stomach warfarin 5 mg Tab RxNorm: 019426 1 Tablet(s) PO QD 12/17/2010 011 Inactive warfarin 5 mg Tab RxNorm: 460053 1 Tablet(s) PO QD 11/18/2010 011 Inactive spironolactone 25 mg Tab RxNorm: 682224 1 Tablet(s) PO QAM 11/13/19 11 02/24/2011 Inactive Coumadin 6 mg Tab RxNorm: 950277 1 Tablet(s) PO QD 10/28/2010 011 Inactive May have generic hydrochlorothiazide 25 mg Tab RxNorm: 198683 1 Tablet(s) PO QAM 11/11/2010 Inactive Wellbutrin XL 300 mg 24 hr Tab RxNorm: 979995 1 Tablet(s) PO QD 09/14/2011 Inactive Septra DS 800 mg-160 mg Tab RxNorm: 651533 1 Tablet(s) PO BID 06/0806/17/2010 Inactive Pyridium 100 mg Tab RxNorm: 2495026 1 Tablet(s) PO TID 06/08/2010 Inactive Wellbutrin XL 300 mg 24 hr Tab RxNorm: 593743 1 Tablet(s) PO QD 05/201007/15/2010 Inactive hydroxyzine 25 mg Tab RxNorm: 414536 1 Tablet(s) PO QID prn itching--take routinely at bedtime. (pt. may not refil at this time but later) 05/20/2010 10/10/2011 Inactive Zyrtec 10 mg Tab RxNorm: 4879616 1 Tablet(s) PO BID 05/20/20102010 Inactive Coumadin 1 mg Tab RxNorm: 354285 1 Tablet(s) PO 6mg M-F, 7mg S-S 11/16/2010 Inactive hydroxyzine 25 mg Tab RxNorm: 833638 1 Tablet(s) PO QID prn itching--take routinely at bedtime 04/30/2010 05/19/2010 Inactive Toprol XL 200 mg 24 hr Tab RxNorm: 221210 1 Tablet(s) PO QD 011 06/23/2010 Inactive lisinopril-hydrochlorothiazide 10 mg-12.5 mg Tab RxNorm: 197 885 1 Tablet(s) PO QD 04/20/2010 04/29/2010 Inactive omeprazole 40 mg Cap, Delayed Release RxNorm: 119823 1 Capsule(s) PO QD for stomach 04/20/2010 08/17/2010 Inactive lisinopril-hydrochlorothiazide 10 mg-12.5 mg Tab RxNorm: 197 885 Tablet(s) PO 1QDAM - TAKE ONE TABLET BY MOUTH EVERY DAY IN THE MORNING 03/09/2010 Inactive lisinopril-hydrochlorothiazide 10 mg-12.5 mg Tab RxNorm: 197 885 1 Tablet(s) PO QD 02/27/2010 04/20/2010 Inactive Wellbutrin XL 300 mg 24 hr Tab RxNorm: 740589 1 Tablet(s) PO QD 05/21/2010 Inactive lisinopril-hydrochlorothiazide 10 mg-12.5 mg Tab RxNorm: 197 885 1 Tablet(s) PO QD 01/28/2010 02/26/2010 Inactive omeprazole 40 mg Cap, Delayed Release RxNorm: 016595 1 Capsule(s) PO QD for stomach 01/22/2010 04/20/2010 Inactive Altace 10 mg Cap RxNorm: 997485 1 Capsule(s) PO QD for BP 01/22/2010 03/22/2010 Inactive Coumadin 6 mg Tab RxNorm: 998762 1 Tablet(s) PO QD May have generic 12/03/2009 05/01/2010 Inactive Coumadin 6 mg Tab RxNorm: 423529 1 Tablet(s) PO 12/01/2009 12/02/2009 Inactive Coumadin 1 mg Tab RxNorm: 447655 1 Tablet(s) PO QD 11/28/2009 010 Inactive Coumadin 1 mg Tab RxNorm: 034136 1 Tablet(s) PO QD 07/02/2009 010 Inactive Flexeril 10 mg tablet RxNorm: 589021 1 Tablet(s) PO TID No Start Date Active spironolactone 25 mg tablet RxNorm: 985543 1 Tablet(s) PO QAM No Star t Date Active lisinopril-hydrochlorothiazide 20 mg-12.5 mg Tab RxNorm: 197 886 2 Tablet(s) PO QAM No Start Date 10/12/2010 Inactive Zofran ODT 4 mg disintegrating tablet RxNorm: 972805 1 Tablet(s) PO Q6H as needed for nausea No Start Date 09/14/2016 Inactive Wellbutrin XL 300 mg 24 hr Tab RxNorm: 165998 1 Tablet(s) PO QD No Start Date 02/02/2010 Inactive alprazolam 0.25 mg tablet RxNorm: 629483 1 Tablet(s) PO prior t o flight No Start Date 05/24/2017 Inactive hydrocodone-acetaminophen 5 mg-500 mg Tab RxNorm: 618732 1-2 Tablet(s) PO Q4H as needed for pain No Start Date 12/02/2010 Inactive Toprol XL 100 mg 24 hr Tab RxNorm: 769296 1 Tablet(s) PO QD No Star t Date 10/14/2013 Inactive Celebrex 200 mg capsule RxNorm: 359318 1 Capsule(s) PO QD No Start Date 05/22/2017 Inactive scopolamine 1 mg over 3 days transdermal patch RxNorm: 44548 2 1 TD take off in 72 hours. No Start Date 07/31/2017 Inactive OneTouch Ultra Test strips RxNorm: Test blood sugar daily No S tart Date 04/23/2018 Inactive Medrol (Dale) 4 mg tablets in a dose pack RxNorm: 876129 Tablet(s) PO As directed No Start Date 01/15/2014 Inactive Coumadin 5 mg Tab RxNorm: 908895 1 Tablet(s) PO QD No Start Date 06/19 Inactive Pepcid 40 mg Tab RxNorm: 618906 1 Tablet(s) PO QD No Start Date 06/23 Inactive prednisone 10 mg Tab RxNorm: 400623 1 Tablet(s) PO BID No Start Date 06/23/2010 Inactive spironolactone 25 mg tablet RxNorm: 301988 1 Tablet(s) PO QAM No St art Date 09/26/2018 Inactive scopolamine 1.5 mg 72 hr Transderm Patch RxNorm: 374676 TD Apply 1 patch behind ear every 72 hours, replace after 3 days. No Start Date 11/07/2012 Inacti ve azithromycin 250 mg Tab RxNorm: 684482 Tablet(s) PO 2 t abs on day one and one tab on days 2-5. (antibiotic) No Start Date 10/10/2011 Inactive Medrol (Dale) 4 mg Tabs in a Dose Pack RxNorm: 281304 1 Tablet(s) PO as directed. (steroid pack) No Start Date 10/10/2011 Inactive Lovenox 40 mg/0.4 mL subcutaneous syringe RxNorm: 381097 40 Mil ligram(s) SQ QD No Start Date 05/04/2018 Inactive Celebrex 200 mg capsule RxNorm: 768685 1 Capsule(s) PO BID as n eeded for pain No Start Date 01/13/2017 Inactive warfarin 1 mg tablet RxNorm: 437753 1 Tablet(s) PO As directed on Mon and Thurs No Start Date 08/10/2012 Inactive cefuroxime axetil 500 mg Tab RxNorm: 246173 1 Tablet(s) PO BID No S tart Date 06/13/2011 Inactive Lovenox 40 mg/0.4 mL subcutaneous syringe RxNorm: 445301 40 Mil ligram(s) SQ QD No Start Date 01/26/2018 Inactive Coumadin 5 mg tablet RxNorm: 608823 1 Tablet(s) PO QD No Start Date 0 08/13/2013 Inactive Medrol (Dale) 4 mg tablets in a dose pack RxNorm: 333097 Tablet(s) PO as directed No Start Date 01/17/2014 Inactive Coumadin 6 mg tablet RxNorm: 391038 1 Tablet(s) PO QD No Start Date 0 06/20/2016 Inactive warfarin 5 mg tablet RxNorm: 701987 1 Tablet(s) PO QD No Start Date 0 12/02/2011 Inactive Medrol (Dale) 4 mg Tabs in a Dose Pack RxNorm: 605352 Tablet(s) PO as directed No Start Date 06/23/2010 Inactive Flonase 50 mcg/actuation nasal spray,suspension RxNorm: 8963 23 2 [place] NASAL BID No Start Date 12/05/2014 Inactive Pepcid 20 mg tablet RxNorm: 640263 1 Tablet(s) PO BID as needed No Start Date 11/02/2012 Inactive Medication Administered No Medication Administered data Immunizations No Immunization data Results Observation Observation Code Item Item Code Result Date S ervice Location MICROALBUMIN URINE RANDOM 00253 CREAT MG/D 139 MG/DL Unknown MICROALBUMIN URINE RANDOM 41615 CRE/100 1.39 G/L 12/20 Unknown Procedures Procedure Codes Date URINALYSIS NONAUTO W/O SCOPE CPT-4: 78528 09/27/2018 URINE CULTURE/ COLONY COUNT CPT-4: 43067 09/27/2018 URINALYSIS NONAUTO W/O SCOPE CPT-4: 25962 10/13/2017 URINE CULTURE/ COLONY COUNT CPT-4: 21277 10/13/2017 STREP A ASSAY W/OPTIC CPT-4: 60558 06/21/2016 STREP A ASSAY W/OPTIC CPT-4: 82122 06/24/2014 THER/PROPH/DIAG INJ SC/IM CPT-4: 73454 03/22/2014 METHYLPREDNISOLONE 40 MG INJ CPT-4: J1030 03/22/2014 TRIAMCINOLONE ACET INJ NOS CPT-4: J3301 03/22/2014 URINALYSIS NONAUTO W/O SCOPE CPT-4: 21991 10/19/2013 URINE CULTURE/ COLONY COUNT CPT-4: 96707 10/19/2013 CEFTRIAXONE SODIUM INJECTION CPT-4: J0696 03/02/2013 THER/PROPH/DIAG INJ SC/IM CPT-4: 63604 03/02/2013 CEFTRIAXONE SODIUM INJECTION CPT-4: J0696 03/01/2013 THER/PROPH/DIAG INJ SC/IM CPT-4: 95078 03/01/2013 THER/PROPH/DIAG INJ SC/IM CPT-4: 01075 03/01/2013 METHYLPREDNISOLONE 40 MG INJ CPT-4: J1030 03/01/2013 TRIAMCINOLONE ACET INJ NOS CPT-4: J3301 03/01/2013 MICROALBUMIN QUANTITATIVE CPT-4: 82317 01/11/2013 URINE CULTURE/ COLONY COUNT CPT-4: 56936 05/04/2012 URINALYSIS NONAUTO W/O SCOPE CPT-4: 11496 05/04/2012 URINE CULTURE/ COLONY COUNT CPT-4: 85812 05/29/2010 TRIAMCINOLONE ACET INJ NOS CPT-4: J3301 05/20/2010 METHYLPREDNISOLONE 40 MG INJ CPT-4: J1030 05/20/2010 THER/PROPH/DIAG INJ SC/IM CPT-4: 32134 05/20/2010 Vital Signs Date Vital 09/27/2018 Blood Pressure 1: 136/82 Code: 8480-6 Heart Rate 1: 68 bpm Respiratory Rate: 20 bpm SpO2: 96% Temperature: 36.6 (C) / 97.9 (F) We ight: 244 lbs 04/24/2018 Blood Pressure 1: 134/78 Code: 8480-6 BMI: 35.1 Code: 90290-6 Heart Rate 1: 76 bpm Height: 5'9" Respiratory Rate: 20 bpm Temperature: 36 .6 (C) / 97.8 (F) Weight: 238 lbs 12/27/2017 Blood Pressure 1: 126/64 Code: 8480-6 BMI: 34.7 Code: 32655-2 Heart Rate 1: 72 bpm Height: 5'9" Respiratory Rate: 20 bpm Temperature: 36 .8 (C) / 98.2 (F) Weight: 235 lbs 10/12/2017 Blood Pressure 1: 142/80 Code: 8480-6 BMI: 35.1 Code: 55969-6 Heart Rate 1: 98 bpm Height: 5'9" Respiratory Rate: 22 bpm SpO2: 100% Tempera ture: 36.5 (C) / 97.7 (F) Weight: 238 lbs 09/16/2017 Blood Pressure 1: 136/82 Code: 8480-6 BMI: 34.1 Code: 87335-2 Heart Rate 1: 82 bpm Height: 5'9" Respiratory Rate: 18 bpm SpO2: 96% Tempera ture: 36.3 (C) / 97.3 (F) Weight: 231 lbs 05/25/2017 Blood Pressure 1: 122/82 Code: 8480-6 BMI: 32.3 Code: 70631-7 Heart Rate 1: 116 bpm Height: 5'9" Respiratory Rate: 20 bpm SpO2: 98% Tempera ture: 35.6 (C) / 96.1 (F) Weight: 219 lbs 01/03/2017 Blood Pressure 1: 126/78 Code: 8480-6 BMI: 33.4 Code: 17973-1 Heart Rate 1: 72 bpm Height: 5'9" Respiratory Rate: 20 bpm Temperature: 36 .8 (C) / 98.2 (F) Weight: 226 lbs 09/23/2016 Blood Pressure 1: 126/82 Code: 8480-6 BMI: 33.8 Code: 79892-1 Heart Rate 1: 80 bpm Height: 5'9" Respiratory Rate: 20 bpm SpO2: 97% Tempera ture: 36.8 (C) / 98.2 (F) Weight: 229 lbs 09/03/2016 Blood Pressure 1: 188/64 Code: 8480-6 Bl ood Pressure 2: 166/92 Code: 8480-6 BMI: 34.4 Code: 76344-4 Heart Rate 1: 66 bpm Height: 5'9" Res piratory Rate: 20 bpm SpO2: 98% Temperature: 35.7 (C) / 96.2 (F) Weight: 233 lbs 07/08/2016 Blood Pressure 1: 134/82 Code: 8480-6 Heart Rate 1: 64 bpm Height: 5'9" Respiratory Rate: 20 bpm SpO2: 97% Temperature: 36.6 (C) / 97.8 (F) Weight: 06/21/2016 Blood Pressure 1: 112/68 Code: 8480-6 BMI: 33.8 Code: 13184-5 Heart Rate 1: 64 bpm Height: 5'9" Respiratory Rate: 20 bpm SpO2: 95% Tempera ture: 36.3 (C) / 97.3 (F) Weight: 229 lbs 02/23/2016 Blood Pressure 1: 128/78 Code: 8480-6 BMI: 33.4 Code: 66402-7 Heart Rate 1: 74 bpm Height: 5'9" [...] 1: 122/80 Code: 8480-6 BMI: 32.2 Code: 88374-7 Heart Rate 1: 80 bpm Height: 5'9" Respiratory Rate: 20 bpm Temperature: 37 .0 (C) / 98.6 (F) Weight: 218 lbs 08/09/2014 Blood Pressure 1: 132/84 Code: 8480-6 BMI: 33.1 Code: 62826-7 Heart Rate 1: 72 bpm Height: 5'9" Respiratory Rate: 20 bpm Temperature: 36 .7 (C) / 98.0 (F) Weight: 224 lbs 06/24/2014 Blood Pressure 1: 132/80 Code: 8480-6 BMI: 32.8 Code: 11208-0 Heart Rate 1: 68 bpm Height: 5'9" Respiratory Rate: 20 bpm Temperature: 36 .4 (C) / 97.6 (F) Weight: 222 lbs 03/22/2014 Blood Pressure 1: 128/84 Code: 8480-6 BMI: 32.5 Code: 22329-2 Heart Rate 1: 78 bpm Height: 5'9" Respiratory Rate: 22 bpm Temperature: 36 .0 (C) / 96.8 (F) Weight: 220 lbs 03/05/2014 Blood Pressure 1: 124/78 Code: 8480-6 BMI: 31.9 Code: 16177-8 Heart Rate 1: 82 bpm Height: 5'9" Respiratory Rate: 20 bpm Temperature: 35 .8 (C) / 96.4 (F) Weight: 216 lbs 01/16/2014 Blood Pressure 1: 116/68 Code: 8480-6 BMI: 33.8 Code: 41622-0 Heart Rate 1: 72 bpm Height: 5'7" Respiratory Rate: 20 bpm Temperature: 36 .6 (C) / 97.9 (F) Weight: 216 lbs 05/10/2013 Blood Pressure 1: 124/86 Code: 8480-6 BMI: 34.3 Code: 72054-5 Heart Rate 1: 84 bpm Height: 5'7" [...] 1: 116/84 Code: 8480-6 BMI: 33.1 Code: 13575-7 Heart Rate 1: 64 bpm Height: 5'9" Respiratory Rate: 20 bpm Temperature: 36 .4 (C) / 97.6 (F) Weight: 224 lbs 01/11/2013 Blood Pressure 1: 126/84 Code: 8480-6 BMI: 35.3 Code: 15257-2 Heart Rate 1: 68 bpm Height: 5'9" Respiratory Rate: 20 bpm Temperature: 36 .7 (C) / 98.1 (F) Weight: 239 lbs 11/03/2012 Blood Pressure 1: 104 Code: 8480-6 BMI: 34.4 Code: 98033-2 Heart Rate 1: 72 bpm Height: 5'9" Respiratory Rate: 20 bpm Temperature: 36 .8 (C) / 98.3 (F) Weight: 233 lbs 05/04/2012 Blood Pressure 1: 124 Code: 8480-6 BMI: 33.7 Code: 18670-6 Heart Rate 1: 84 bpm Height: 5'9" Temperature: 36.3 (C) / 97.3 (F) Weight: 228 lbs 10/11/2011 Blood Pressure 1: 11070 Code: 8480-6 BMI: 33.7 Code: 77360-0 Heart Rate 1: 64 bpm Height: 5'9" Temperature: 36.8 (C) / 98.3 (F) Weight: 228 lbs 06/23/2011 Blood Pressure 1: 114 Code: 8480-6 BMI: 33.4 Code: 05539-2 Heart Rate 1: 80 bpm Height: 5'9" Respiratory Rate: 20 bpm Temperature: 36 .7 (C) / 98.0 (F) Weight: 226 lbs 06/14/2011 Blood Pressure 1: 11874 Code: 8480-6 BMI: 33.4 Code: 67847-1 Heart Rate 1: 80 bpm Height: 5'9" [...] 1: 126/82 Code: 8480-6 BMI: 32.6 Code: 88807-9 Heart Rate 1: 68 bpm Height: 5'9" [...] 1: 140/92 Code: 8480-6 BMI: 31.3 Code: 59411-3 Heart Rate 1: 60 bpm Height: 5'10" [...] upper back on 08/13/16 while camping around [place], [place]. Patient states is tender around tick [...] 01/22/2010 Encounters Encounter Performer Location Codes Date ([id number]) OFFICE/OUTPATIENT VISIT EST Diagnosis: Gastro-esophageal reflux disease without esophagitis[ICD10: K21.9] Diagnosis: Urinary tract infection, site not specified[ICD10: N39.0] Diagnosis: Ventral hernia without obstruction or gangrene[ICD10: K43.9] Jessica GEE [employer] [facility] CPT-4: 49805 09/27/2018 ([id number]) OFFICE/OUTPATIENT VISIT EST Diagnosis: Essential (primary) hypertension[ICD10: I10] Diagnosis: Type 2 diabetes mellitus without complications[ICD10: E11.9] Diagnosis: Carpal tunnel syndrome, right upper limb[ICD10: G56.01] Diagnosis: Primary insomnia[ICD10: F51.01] Jessica GEE [employer] [facility] CPT-4: 61219 04/24/2018 ([id number]) OFFICE/OUTPATIENT VISIT EST Diagnosis: Type 2 diabetes mellitus without complications[ICD10: E11.9] Diagnosis: Mixed hyperlipidemia[ICD10: E78.2] Diagnosis: Essential (primary) hypertension[ICD10: I10] Diagnosis: Pain in unspecified joint[ICD10: M25.50] Jessica GEE [employer] [facility] CPT-4: 82598 12/27/2017 ([id number]) NURSE/OUTPATIENT VISIT EST Diagnosis: Hematuria, unspecified[ICD10: R31.9] Jessica GEE [employer] [facility] CPT-4: 69729 10/13/2017 ([id number]) OFFICE/OUTPATIENT VISIT EST Diagnosis: Pleurodynia[ICD10: R07.81] Sofi CAMPUZANO [employer] [facility] CPT-4: 15033 10/12/2017 ([id number]) OFFICE/OUTPATIENT VISIT EST Diagnosis: Acute bronchitis, unspecified[ICD10: J20.9] Sofi MCCORMICKER [employer] [facility] CPT-4: 63422 09/16/2017 ([id number]) OFFICE/OUTPATIENT VISIT EST Diagnosis: Other specified postprocedural states[ICD10: Z98.890] Diagnosis: Cellulitis of neck[ICD10: L03.221] Diagnosis: Tachycardia, unspecified[ICD10: R00.0] Jessica GEE [facility] CPT-4: 37133 05/25/2017 ([id number]) OFFICE/OUTPATIENT VISIT EST Diagnosis: Lumbago with sciatica, right side[ICD10: M54.41] Diagnosis: Pain in unspecified joint[ICD10: M25.50] Jessica GEE [facility] CPT-4: 78965 01/03/2017 ([id number]) OFFICE/OUTPATIENT VISIT EST Diagnosis: Bitten or stung by nonvenomous insect and other nonvenomous arthropods, subsequent encounter[ICD10: W57.XXXD] Diagnosis: Essential (primary) hypertension[ICD10: I10] Diagnosis: Low back pain[ICD10: M54.5] Jessica CARBAJAL [facility] CPT-4: 74608 09/23/2016 OFFICE/OUTPATIENT VISIT EST Diagnosis: Bitten or stung by nonvenomous insect and other nonvenomous arthropods, initial encounter[ICD10: W57.XXXA] Diagnosis: Essential (primary) hypertension[ICD10: I10] Kaitlynn Mosley JESSICA GEE [facility] CPT-4: 41071 09/03/2016 ([id number]) OFFICE/OUTPATIENT VISIT EST Diagnosis: Low back pain[ICD10: M54.5] Diagnosis: Radiculopathy, lumbosacral region[ICD10: M54.17] Jessica GEE [facility] CPT-4: 91619 07/08/2016 ([id number]) OFFICE/OUTPATIENT VISIT EST Diagnosis: Acute pharyngitis, unspecified[ICD10: J02.9] Jessica GEE [facility] CPT-4: 56297 06/21/2016 ([id number]) OFFICE/OUTPATIENT VISIT EST Diagnosis: Cough[ICD10: R05] Diagnosis: Fever, unspecified[ICD10: R50.9] Janiya Gregorio JESSICA GEE [facility] CPT-4: 34102 02/23/2016 ([id number]) OFFICE/OUTPATIENT VISIT EST Diagnosis: Acute sinusitis, unspecified[ICD10: J01.90] Jessica GEE [facility] CPT-4: 09989 02/16/2016 OFFICE/OUTPATIENT VISIT EST Diagnosis: Type 2 diabetes mellitus without complications[ICD10: E11.9] Diagnosis: Gastro-esophageal reflux disease without esophagitis[ICD10: K21.9] Diagnosis: Ventral hernia without obstruction or gangrene[ICD10: K43.9] Suki GEE 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 CPT-4: 56449 01/28/2015 OFFICE/OUTPATIENT VISIT EST Diagnosis: SINUSITIS, ACUTE[ICD9: 461.9] Kaitlynn Mosley JESSICA Monica GEE [facility] CPT-4: 00197 12/06/2014 ([id number]) OFFICE/OUTPATIENT VISIT EST Diagnosis: SINUSITIS, ACUTE[ICD9: 461.9] Kaitlynnruthie [facility]: 65232 08/09/2014 ([id number]) OFFICE/OUTPATIENT VISIT EST Diagnosis: TONSILLITIS, ACUTE[ICD9: 463] Suki GEE [facility] CPT-4: 03667 06/24/2014 OFFICE/OUTPATIENT VISIT EST Diagnosis: SINUSITIS, ACUTE[ICD9: 461.9] Diagnosis: EUSTACHIAN TUBE DYSFUNCTION[ICD9: 381.81] Diagnosis: COUGH[ICD9: 786.2] Suki GEE [facility] CPT-4: 15776 03/22/2014 OFFICE/OUTPATIENT VISIT EST Diagnosis: Elbow pain, right[ICD9: 719.42] Suki GEE DO [facility] CPT-4: 96401 03/05/2014 OFFICE/OUTPATIENT VISIT EST Diagnosis: SINUSITIS, ACUTE[ICD9: 461.9] Jessica GEE DO [facility] CPT-4: 76679 01/16/2014 ([id number]) OFFICE/OUTPATIENT VISIT EST Diagnosis: GROSS HEMATURIA[ICD9: 599.71] Jessica GEE DO [facility] CPT-4: 43408 10/19/2013 ([id number]) OFFICE/OUTPATIENT VISIT EST Diagnosis: DM W/O COMPLICATION TYPE II[ICD9: 250.00] Diagnosis: HYPERLIPIDEMIA NEC/NOS[ICD9: 272.4] Jessica GEE DO [facility] CPT-4: 37413 05/10/2013 ([id number]) OFFICE/OUTPATIENT VISIT EST Diagnosis: SINUSITIS, ACUTE[ICD9: 461.9] Jessica GEE [facility] CPT-4: 10808 04/17/2013 OFFICE/OUTPATIENT VISIT EST Diagnosis: OTITIS MEDIA NOS[ICD9: 382.9] Diagnosis: COUGH[ICD9: 786.2] Suki GEE DO [facility] CPT-4: 52312 03/05/2013 OFFICE/OUTPATIENT VISIT EST Diagnosis: COUGH[ICD9: 786.2] Diagnosis: BRONCHITIS, ACUTE[ICD9: 466.0] Suki GEE DO [facility] CPT-4: 23088 03/02/2013 OFFICE/OUTPATIENT VISIT EST Diagnosis: COUGH[ICD9: 786.2] Diagnosis: OTITIS MEDIA NOS[ICD9: 382.9] Diagnosis: BRONCHITIS, ACUTE[ICD9: 466.0] Suki GEE DO [facility] CPT-4: 22240 03/01/2013 OFFICE/OUTPATIENT VISIT EST Diagnosis: DM W/O COMPLICATION TYPE II, UNCONTROLLED[ICD9: 250.02] Jessica GEE DO [facility] CPT-4: 78363 02/22/2013 ([id number]) PREV VISIT EST AGE 40-64 Diagnosis: DM W/O COMPLICATION TYPE II, UNCONTROLLED[ICD9: 250.02] Diagnosis: HYPERTENSION[ICD9: 401.9] Diagnosis: ROUTINE MEDICAL EXAM[ICD9: V70.0] Jessica Rodriguezcorby Lucas DomingaLloyd [facility] CPT-4: 00267 01/11/2013 OFFICE/OUTPATIENT VISIT EST Diagnosis: HZ (HERPES ZOSTER)[ICD9: 053.9] Kaitlynn MaloneyAidanSalguero JESSICA DomingaLloyd [facility] CPT-4: 84372 11/03/2012 OFFICE/OUTPATIENT VISIT EST Diagnosis: URINARY TRACT INFECTION[ICD9: 599.0] Diagnosis: GERD[ICD9: 530.81] Diagnosis: PHARYNGITIS, ACUTE[ICD9: 462] Jessica Michaelcorby VO DomingaLloyd [facility] CPT-4: 72975 05/04/2012 OFFICE/OUTPATIENT VISIT EST Diagnosis: COUGH[ICD9: 786.2] Diagnosis: SINUSITIS, ACUTE[ICD9: 461.9] Diagnosis: PHARYNGITIS, ACUTE[ICD9: 462] Jessica Michaelaaronderek JESSICA DomingaLloyd [facility] CPT-4: 57762 10/11/2011 OFFICE/OUTPATIENT VISIT EST Diagnosis: COUGH[ICD9: 786.2] Diagnosis: SINUSITIS, ACUTE[ICD9: 461.9] Diagnosis: PHARYNGITIS, ACUTE[ICD9: 462] Diagnosis: ALLERGIC RHINITIS[ICD9: 477.9] Xiomara VO Dominga Lloyd [facility] CPT-4: 51391 06/23/2011 OFFICE/OUTPATIENT VISIT EST Diagnosis: COUGH[ICD9: 786.2] Diagnosis: SINUSITIS, ACUTE[ICD9: 461.9] Diagnosis: PHARYNGITIS, ACUTE[ICD9: 462] Jessica VO DomingaLloyd [facility] CPT-4: 47632 06/14/2011 OFFICE/OUTPATIENT VISIT EST Diagnosis: SINUSITIS, ACUTE[ICD9: 461.9] Diagnosis: PHARYNGITIS, ACUTE[ICD9: 462] Jessica VO DomingaLloyd [facility] CPT-4: 27079 12/02/2010 OFFICE/OUTPATIENT VISIT EST Diagnosis: HYPERTENSION[ICD9: 401.9] Diagnosis: HYPERLIPIDEMIA NEC/NOS[ICD9: 272.4] Diagnosis: DERMATITIS NOS[ICD9: 692.9] Jessica Zamudio [facility] CPT-4: 86714 11/12/2010 OFFICE/OUTPATIENT VISIT EST Jessica RODRIGUEZ [facility] CPT- 4: 31087 10/13/2010 ([id number]) OFFICE/OUTPATIENT VISIT EST Jessica BELTRAN S. [facility] CPT-4: 86262 06/24/2010 ([id number]) OFFICE/OUTPATIENT VISIT EST Jessica BELTRAN S. [facility] CPT-4: 85693 06/08/2010 ([id number]) OFFICE/OUTPATIENT VISIT EST Xiomara Desai [facility] CPT-4: 99741 05/20/2010 ([id number]) OFFICE/OUTPATIENT VISIT EST Jessica BELTRAN SLloyd [facility] CPT-4: 27209 04/30/2010 ([id number]) OFFICE/OUTPATIENT VISIT, EST Jessica Anderson [facility] CPT-4: 53960 01/22/2010 Plan of Care Planned Activity Notes [...] K21.9 09/27/2018 Appointment: [facility]ee [facility]el[facility] [phone] [id number] [facility] 09/27/2018 Visit Diagnosis Plan: Carpal [...] F51.01 04/24/2018 Appointment: [facility]ee [facility]el[facility] [phone] [facility] [place] [facility] 04/24/2018 Patient Education: celecoxib- [employer] [id number] Completed 04/24/2018 Patient Education: amitriptyline- [employer] [id number] Completed 04/24/2018 Visit Diagnosis Plan: Type 2 [...] M25.50 12/27/2017 Appointment: Jessica Gee WPtel[facility] [phone] [facility] FOLLOW UP 12/27/2017 Patient Education: Patient Medication Summary Completed 12/27/2017 Patient Education: Patient Medication Summary Completed 12/19/2017 Care Plan: MAMMOGRAM BOTH BREASTS LOINC : 63022-7 Pending 12/19/2017 Patient Education: Patient Medication Summary Completed 12/16/2017 Care Plan: ASSAY THYROID STIM HORMONE Pen ding 12/16/2017 Care Plan: ASSAY OF FREE THYROXINE Pendin g 12/16/2017 Care Plan: LIPID PANEL LOINC : 36228-3 Pending 12/16/2017 Care Plan: CBC Pending 12/16/2017 Care Plan: A1C HPLC LOINC : 81211-4 Pending 12/16/2017 Patient Education: Patient Medication Summary Completed 10/17/2017 Care Plan: CT ANGIOGRAPHY CHEST LOINC : 34401-4 Pending 10/17/2017 Patient Education: Patient Medication Summary Completed 10/14/2017 Care Plan: CT ANGIOGRAPHY CHEST LOINC : 67948-7 Pending 10/14/2017 Appointment: Jessica Gee WPtel: [address] [place], [place] [id number] 10/13/2017 Patient Education: Patient Medication Summary [...] : R07.81 10/12/2017 Appointment: Sofi Gresham [address] [place] [address] ACUTE ILLNESS 10/12/2017 Patient Education: Patient Medication [...] : J20.9 09/16/2017 Appointment: Sofi Gresham [address] [place] [address] ACUTE ILLNESS 09/16/2017 Patient Education: Patient Medication Summary Completed 09/16/2017 Appointment: Jessica Gee WPtel: [facility] [address] CANCELED 08/10/2017 Visit Diagnosis Plan: Cellulitis of [...] Appointment: Jessica Gee WPtel: [phone] [facility] FOLLOW UP 05/25/2017 Patient Education: Patient Medication Summary Completed 05/25/2017 Visit Diagnosis Plan: Lumbago with sciatica, right britton e Discussion: Check arthritis panel Patient awaiting neck surgery before surgery will consider back surgery ICD-9 : 724.2 ICD-10 : M54.41 01/03/2017 Appointment: Jessica Gee WPtel: [id number] [facility] 01/03/2017 Patient Education: Patient Medication Summary Completed 01/03/2017 Patient Education: Patient Medication Summary Completed 12/16/2016 Care Plan: MAMMOGRAM SCREENING LOINC : 2 6347-5 Pending 12/16/2016 Patient Education: Patient Medication Summary Completed 10/07/2016 Care Plan: MRI LUMBAR SPINE W/O & W/DYE LOINC : 28964-0 Pending 10/07/2016 Visit Diagnosis Plan: Essential (primary) [...] W57.XXXD 09/23/2016 Appointment: Jessica Gee WPtel: [phone] [id number] 7/5 confirmed WORK IN 09/23/2016 Patient Education: Patient Medication Summary Completed 09/23/2016 Visit Plan: Tick panel at [facility] Increa se spironolactone to 2 po am (New Rx sent) Take B/P at home/work and also come to office next week for recheck Will await lab results before starting any antibiotic 09/03/2016 Appointment: Kaitlynn Mosley WPtel: [address] [place], [place] [phone] ACUTE ILLNESS 09/03/2016 Patient Education: Patient Medication Summary Completed 09/03/2016 Visit Diagnosis Plan: Low back pain Discussion: Celebr ex BID PT Continue stretches at home L/S xray Follow Up: 1 months ICD-9 : 724.2 ICD-10 : M54.5 07/08/2016 Appointment: Jessica Gee WPtel: [address] [place] [address] ACUTE ILLNESS 07/08/2016 Patient Education: Patient Medication Summary Completed 07/08/2016 Care Plan: X-RAY EXAM L-S SPINE 2/3 VWS LOINC : 05548-6 Pending 07/08/2016 Visit Plan: Supportive care. Rest, Fluid s, Tylenol/Motrin prn fever or bodyaches. Notify if worsening symptoms.New toothebrush in 5 days 06/21/2016 Visit NOS Plan: Plan Notes: Supportive care. Rest, Fluids... 06/21/2016 Visit Diagnosis Plan: Acute pharyngitis, unspecified D iscussion: Strep Negative Supportive Care May use zyrtec 10mg q HS ICD-9 : 462 ICD-10 : J02.9 06/21/2016 Appointment: Jessica Gee WPtel: [address] [place] [address] ACUTE ILLNESS 06/21/2016 Patient Education: Patient Medication Summary Completed 06/21/2016 Visit Plan: No pulseox last week to comp are to today, but she does sound diminished today Studies as above ordered Continue cefdinir until results received Increase albuterol treatments to q4-6hrs PRN Continue supportive care 02/23/2016 Appointment: Janiya Gregorio [address] [place], [place] [id number] ACUTE ILLNESS 02/23/2016 Patient Education: Patient Medication Summary Completed 02/23/2016 Care Plan: CHEST X-RAY 2VW FRONTAL&LATL LOINC : 54748-2 Pending 02/23/2016 Visit Plan: Saline nasal flushes prn. Ty lenol/Motrin prn headache. Notify if persists/symptoms worsening. 02/16/2016 Appointment: Jessica Gee WPtel: [address] [place], [place] [phone] ACUTE ILLNESS 02/16/2016 Patient Education: Patient Medication Summary Completed 02/16/2016 Visit Plan: Discussed labs Continue Topr ol at 200 mg PO daily Increase Aciphex to BID Notify if increase of Aciphex does not give relief. Repeat PT/INR in 2 weeks. 02/11/2015 Appointment: Suki Barahona WPtel: [address] [place] [address] 02/10 confirmed ~sl FOLLOW UP 02/11/2015 Patient Education: Patient Medication Summary Completed 02/11/2015 Patient Education: Patient Medication Summary Completed 02/06/2015 Care Plan: POC PROTIME/INR LOINC : 22972 -6 Pending 02/06/2015 Visit Plan: Increase Toprol XL 200 mg to one full tablet daily (is currently taking only 1/2 tablet) To for EKG today Monitor daily BP Notify of any changes- increased numbness, weakness, headache etc. 01/28/2015 Appointment: Suki Barahona WPtel: [address] [place], [place] [phone] ACUTE ILLNESS 01/28/2015 Patient Education: Patient Medication Summary Completed 01/28/2015 Visit Plan: ERx Amoxicillin and Flonase Nasal saline, humidified air Facial heat or cold packs for comfort Increase fluids/rest Discussed s/s of worsening, go to over weekend if these occur. 12/06/2014 Appointment: Kaitlynn Mosley WPtel: [address] [place] [address] ACUTE ILLNESS 12/06/2014 Patient Education: Patient Medication Summary Completed 12/06/2014 Appointment: Kaitlynn Mosley WPtel: [address] [place] [address] ACUTE ILLNESS 08/09/2014 Patient Education: Patient Medication Summary Completed 08/09/2014 Appointment: Suki Barahona WPtel: [address] [place] [address] ACUTE ILLNESS 06/24/2014 Patient Education: Patient Medication Summary Completed 06/24/2014 Appointment: Suki Barahona WPtel: [address] [place] [address] ACUTE ILLNESS 03/22/2014 Patient Education: Patient Medication Summary Completed 03/22/2014 Patient Education: [employer] - Antibi otics, Analgesics 18+, Oral Contraceptives F 18+ Completed 03/22/2014 Appointment: Suki Barahona WPtel: [address] [place] [address] FOLLOW UP 03/05/2014 Patient Education: Patient Medication Summary Completed 03/05/2014 Visit Plan: Saline nasal flushes prn. Ty lenol/Motrin prn headache. Notify if persists/symptoms worsening. Restart flonase 01/16/2014 Appointment: Jessica Gee WPtel: [address] [place] [address] ACUTE ILLNESS 01/16/2014 Patient Education: Patient Medication Summary Completed 01/16/2014 Appointment: Jessica Gee WPtel: [address] [place] [address] UA 10/19/2013 Patient Education: Patient Medication Summary Completed 10/19/2013 Appointment: Jessica Gee WPtel: [address] [place] [address] 08/08 patient canceled appt and said will call back to [facility] FOLLOW UP 08/09/2013 Visit Plan: Increase Coumadin to 6mg M-F and stay on 5mg Sat, Sun Add lipids to labs Check PT/INR in 3wks Continue metfromin at current dose and accuchecks 05/10/2013 Appointment: Jessica Gee WPtel: [address] [place], [place] [phone] 05/09 FOLLOW UP 05/10/2013 Patient Education: Patient Medication Summary Completed 05/10/2013 Visit Plan: Saline nasal flushes prn. Ty lenol/Motrin prn headache. Notify if persists/symptoms worsening. 04/17/2013 Appointment: Jessica Gee WPtel: [address] [place] [address] ACUTE ILLNESS 04/17/2013 Patient Education: Patient Medication Summary Completed 04/17/2013 Appointment: Suki Barahona WPtel: [address] [place] [address] FOLLOW UP 03/05/2013 Patient Education: Patient Medication Summary Completed 03/05/2013 Appointment: Suki Barahona WPtel: [address] [place] [address] FOLLOW UP 03/02/2013 Patient Education: Patient Medication Summary Completed 03/02/2013 Appointment: Suki Barahona WPtel: [address] [place] [address] ACUTE ILLNESS 03/01/2013 Patient Education: Patient Medication Summary Completed 03/01/2013 Visit Plan: Continue metformin and accuc hecks Add fish oil 1gram daily Check HbA1C, CMP in 2mos then fwup 02/22/2013 Appointment: Jessica Gee WPtel: [address] [place], [place] [phone] 02/21 work vm FOLLOW UP 02/22/2013 Patient Education: Patient Medication Summary Completed 02/22/2013 Visit Plan: Start Metformin Start Accuch ecks daily alternating times Will go for dilated eye exam once BS more stabilized Diabetic foot care discussed Diabetic diet info given 01/11/2013 Appointment: Jessica Gee WPtel: [address] [place] [address] FOLLOW UP 01/11/2013 Patient Education: Patient Medication Summary Completed 01/11/2013 Appointment: Kaitlynn Mosley WPtel: [address] [place], [place] [phone] ACUTE ILLNESS 11/03/2012 Patient Education: Patient Medication Summary Completed 11/03/2012 Appointment: Xiomara Rodriguez WPtel: [address] [place] [address] ACUTE ILLNESS 05/04/2012 Patient Education: Patient Medication Summary Completed 05/04/2012 Visit Plan: pt reports that she always g ets yeast infections. Discussed that the antifungal can cause problems/increased bleeding with Coumdin. Pt. will start with probiotics and only take the Diflucan if needed. Cefdinir. 10/11/2011 Appointment: Xiomara Rodriguez WPtel: [address] [place] [address] ACUTE ILLNESS 10/11/2011 Patient Education: Patient Medication Summary Completed 10/11/2011 Appointment: Xiomara Rodriguez WPtel: [address] [place] [address] FOLLOW UP 06/23/2011 Patient Education: Patient Medication Summary Completed 06/23/2011 Visit Plan: Will prescribe an antibiotic and diflucan. Pt. reports that she frequently gets yeast infection. Discussed that she will notify if any symptoms persist. Pt. reports that her relatives have recently been hospitalized with pneumonia. 06/14/2011 Appointment: Xiomara Rodriguez WPtel: [address] [place], [place] [phone] ACUTE ILLNESS 06/14/2011 Patient Education: Patient Medication Summary Completed 06/14/2011 Visit Plan: sample of veramyst. Cefuroxi me axetil. Pt. will focus on hydration and rest. Discussed comfort measures and monitoring for worsening symptoms. 12/02/2010 Appointment: Xiomara Rodriguez WPtel: [address] [place], [place] [address] ACUTE ILLNESS 12/02/2010 Patient Education: Patient Medication Summary Completed 12/02/2010 Visit Plan: Change HCTZ to spironolacton e will start zocor in 1 mo BP med in 1mo 11/12/2010 Appointment: Jessica Gee WPtel: [address] [place] [address] FOLLOW UP 11/12/2010 Patient Education: Patient Medication Summary Completed 11/12/2010 Appointment: Jessica Gee WPtel: [address] [place] [address] BP CHECK 10/26/2010 Patient Education: Patient Medication Summary Completed 10/26/2010 Visit Plan: Continue Toprol at bedtime A dd HCTZ in AM BP check in 2wks Fasting lab with next PT/INR 10/13/2010 Appointment: Jessica eGe WPtel: [address] [place] [address] FOLLOW UP 10/13/2010 Patient Education: Patient Medication Summary Completed 10/13/2010 Visit Plan: Cont abx. Fwup with surgery as scheduled 06/24/2010 Appointment: Jessica Gee WPtel: [address] [place] [address] Hospital Follow Up 06/24/2010 Patient Education: Patient Medication Summary Completed 06/24/2010 Appointment: Jessica Gee WPtel: [address] [place] [address] Hospital Follow Up 06/22/2010 Visit Plan: pt [...] subside. 06/08/2010 Appointment: Xiomara Rodriguez WPtel: [address] [place] [address] ACUTE ILLNESS 06/08/2010 Patient Education: Patient Medication Summary Completed 06/08/2010 Appointment: Xiomara Rodriguez WPtel: [address] [place] [address] FOLLOW UP 06/01/2010 Appointment: Jessica Gee WPtel: [address] [place] [address] UA 05/29/2010 Patient Education: Patient Medication Summary Completed 05/29/2010 Appointment: Xiomara Rodriguez WPtel: [address] [place] [address] ACUTE ILLNESS 05/20/2010 Patient Education: Patient Medication Summary Completed 05/20/2010 Appointment: Jessica Gee WPtel: [address] [place] [address] BP CHECK 05/13/2010 Patient Education: Patient Medication Summary Completed 05/13/2010 Visit Plan: Increase Lisinopril hct to 2 0/12.5mg q AM Use atarax prn and routinely at bedtime and Medrol dose pack BP check in 3wks Pt defers stress test at this time 04/30/2010 Appointment: Jessica Gee WPtel: [address] [place] [address] ACUTE ILLNESS 04/30/2010 Patient Education: Patient Medication Summary Completed 04/30/2010 Appointment: Jessica Gee WPtel: [address] [place] [address] BP CHECK 02/27/2010 Patient Education: Patient Medication Summary Completed 02/27/2010 Visit Plan: Cont Toprol Add Altace 10mg QD Cont Wellbutrin Will likely add SSRI after BP stable BP check in 2wks 01/22/2010 Appointment: Jessica Gee WPtel: [address] [place] [address] ACUTE ILLNESS 01/22/2010 Patient Education: Patient Medication Summary Completed 01/22/2010 Referral: Rupa Raines WPtel: [address] [place], [place] [id number] [place] Referral Completed Referral: Neymar Alberts [facility]Ptel: [address] [id number] [place] Referral Initiated Instructions Comment . Tick [...]
--- OUTSIDE RECORDS SUMMARY | 2019-09-10 03:17 | XMS REPORT | CCD ---
Author Author Nava Gee D.O. Organization [facility] Address [address] [place] [address] Phone Care Team Providers Care Locksmith Helper Name Role Phone Jessica Gee D.O., PP Unavailable CCM Unavailable Summary Purpose Interface Exchange Insurance Providers Payer name Policy type / Coverage type Covered alliance party ID Effective Begin Date Effective End Date Blue Cross Blue Shield Blue Cross/Blue Shield [id number] Unknown Family History Family History data not found Social History Social History Element Codes Description Effective Dates Tobacco history SNOMED CT: 026387622 Never smoker 10/13/2010 Allergies, Adverse Reactions, Alerts [...] findings ICD-9: V70.0 ICD-10: Z00.00 12/16/2017 Active prison (current) use of anticoagulants ICD-9: V58.6 1 [...] Fill Instructions Coumadin 5 mg tablet RxNorm: 514167 TAKE 1 TABLET BY MOUTH ONCE DAILY 02/28/2019 No Stop Date Active warfarin 1 mg tablet RxNorm: 160508 TAKE 1 TABLET BY [facility] ONCE DAILY. TAKE AN ADDITIONAL TABLET ON TUESDAY AND Tuesday02/28/2019 No Stop Date Active metformin ER 500 mg tablet,extended release 24 hr RxNorm: 86 0975 1 Tablet(s) PO BID 02/19/2019 03/20/2019 Active omeprazole 40 mg capsule,delayed release RxNorm: 242752 TAKE 1 CAPSULE BY MOUTH TWICE DAILY 02/19/2019 No Stop Date Active metformin ER 500 mg tablet,extended release 24 hr RxNorm: 86 0975 1 Tablet(s) PO BID 01/15/2019 02/13/2019 Inactive alprazolam 0.25 mg tablet RxNorm: 256068 1 Tablet(s) Oral prior to flight 01/03/2019 No Stop Date Active omeprazole 40 mg capsule,delayed release RxNorm: 699611 TAKE 1 CAPSULE BY MOUTH TWICE DAILY 12/20/2018 02/18/2019 Inactive pravastatin 40 mg tablet RxNorm: 225595 TAKE 1 TABLET BY MOUTH ONCE DAILY 12/11/2018 No Stop Date Active metformin ER 500 mg tablet,extended release 24 hr RxNorm: 86 0975 1 Tablet(s) PO BID 12/11/2018 01/09/2019 Inactive Coumadin 5 mg tablet RxNorm: 436232 1 Tablet(s) PO QD 11/27/201809/2018 Inactive metformin ER 500 mg tablet,extended release 24 hr RxNorm: 86 0975 1 Tablet(s) PO BID 10/02/2018 11/30/2018 Inactive warfarin 1 mg tablet RxNorm: 871579 TAKE 1 TABLET BY [facility] ONCE DAILY. TAKE AN ADDITIONAL TABLET ON TUESDAY AND Tuesday10/02/2018 02/27/2019 Inactiv e warfarin 5 mg tablet RxNorm: 152177 1 Tablet(s) PO QD 09/27/201810/2018 Inactive Bactrim DS 800 mg-160 mg tablet RxNorm: 660164 1 Tablet(s) PO BID 0 09/27/2018 10/03/2018 Inactive Toprol XL 200 mg tablet,extended release RxNorm: 989236 1 Table t(s) PO QD 09/18/2018 03/16/2019 Active omeprazole 40 mg capsule,delayed release RxNorm: 288669 TAKE 1 CAPSULE BY MOUTH TWICE DAILY 09/11/2018 12/19/2018 Inactive Coumadin 5 mg tablet RxNorm: 602168 1 Tablet(s) PO QD 08/21/201811/2018 Inactive metformin ER 500 mg tablet,extended release 24 hr RxNorm: 86 0975 1 Tablet(s) PO BID 07/31/2018 09/28/2018 Inactive omeprazole 40 mg capsule,delayed release RxNorm: 962900 TAKE 1 CAPSULE BY MOUTH TWICE DAILY 06/27/2018 09/10/2018 Inactive metformin ER 500 mg tablet,extended release 24 hr RxNorm: 86 0975 Tablet(s) 1 Tablet(s) PO BID 06/27/2018 07/31/2018 Inactive Toprol XL 200 mg tablet,extended release RxNorm: 101578 1 Table t(s) PO QD 06/14/2018 09/17/2018 Inactive Coumadin 5 mg tablet RxNorm: 338590 1 Tablet(s) PO QD 06/14/201804/2018 Inactive metformin ER 500 mg tablet,extended release 24 hr RxNorm: 86 0975 Tablet(s) 1 Tablet(s) PO BID 05/22/2018 06/26/2018 Inactive Coumadin 5 mg tablet RxNorm: 311964 TAKE 1 TABLET BY MOUTH ONCE DAILY 05/11/2018 06/14/2018 Inactive Lovenox 40 mg/0.4 mL subcutaneous syringe RxNorm: 180130 40 Mil ligram(s) SQ QD 05/05/2018 09/26/2018 Inactive amitriptyline 25 mg tablet RxNorm: 948330 1 Tablet(s) PO [facility] fo r sleep/HAs 04/24/2018 10/20/2018 Inactive [employer] Ultra Test strips RxNorm: Test blood sugar sigrid martinez (Dx:E11.65) 04/24/2018 No Stop Date Active celecoxib 200 mg capsule RxNorm: 821921 1 Capsule(s) PO BID 019 10/20/2018 Inactive Celebrex 200 mg capsule RxNorm: 726887 TAKE 1 CAPSULE BY MOUTH ONCE DAILY 04/19/2018 04/23/2018 Inactive warfarin 1 mg tablet RxNorm: 126950 1 Tablet(s) PO QD a nd additional tablet on Tue & Th04/14/2018 10/01/2018 Inactive Toprol XL 200 mg tablet,extended release RxNorm: 329952 TAKE 1 TABLET BY MOUTH ONCE DAILY 04/11/2018 06/14/2018 Inactive metformin ER 500 mg tablet,extended release 24 hr RxNorm: 86 0975 Tablet(s) 1 Tablet(s) PO BID 03/17/2018 05/21/2018 Inactive Coumadin 5 mg tablet RxNorm: 025064 TAKE 1 TABLET BY MOUTH ONCE DAILY 03/15/2018 05/10/2018 Inactive Lovenox 40 mg/0.4 mL subcutaneous syringe RxNorm: 183781 40 Mil ligram(s) SQ QD 01/27/2018 04/11/2018 Inactive omeprazole 40 mg capsule,delayed release RxNorm: 413122 TAKE 1 CAPSULE BY MOUTH TWICE DAILY 01/23/2018 06/26/2018 Inactive pravastatin 40 mg tablet RxNorm: 070581 TAKE 1 TABLET BY MOUTH ONCE DAILY 01/23/2018 12/10/2018 Inactive metformin ER 500 mg tablet,extended release 24 hr RxNorm: 86 0975 Tablet(s) 1 Tablet(s) PO BID 01/16/2018 01/15/2018 Inactive Toprol XL 200 mg tablet,extended release RxNorm: 998820 TAKE 1 TABLET BY MOUTH ONCE DAILY 01/16/2018 04/10/2018 Inactive Coumadin 5 mg tablet RxNorm: 642703 TAKE 1 TABLET BY MOUTH ONCE DAILY 01/06/2018 03/14/2018 Inactive Celebrex 200 mg capsule RxNorm: 718316 1 Capsule(s) PO BID 12/28/19 18 03/26/2018 Inactive metformin ER 500 mg tablet,extended release 24 hr RxNorm: 86 0975 1 Tablet(s) PO BID Needs APPT 12/21/2017 01/16/2018 Inactive omeprazole 40 mg capsule,delayed release RxNorm: 320206 TAKE 1 CAPSULE BY MOUTH TWICE DAILY 11/02/2017 01/22/2018 Inactive Celebrex 200 mg capsule RxNorm: 352365 1 Capsule(s) PO QD 11/01/2017 12/26/2017 Inactive Coumadin 5 mg tablet RxNorm: 796091 Tablet(s) TAKE ONE TABLET BY MOUTH ONCE DAILY. 10/31/2017 12/29/2017 Inactive warfarin 1 mg tablet RxNorm: 195071 1 Tablet(s) PO QD 10/31/201703/22 Inactive spironolactone 25 mg tablet RxNorm: 666282 TAKE TWO TAB LETS BY MOUTH IN THE MORNING 10/31/2017 04/23/2018 Inactive metformin ER 500 mg tablet,extended release 24 hr RxNorm: 86 0975 1 Tablet(s) PO BID Needs updated fasting lab 10/20/2017 12/21/2017 Inactive Medrol (Dale) 4 mg tablets in a dose pack RxNorm: 589428 Tablet(s) PO take as directed 10/12/2017 12/15/2017 Inactive Celebrex 200 mg capsule RxNorm: 999280 1 Capsule(s) PO QD 10/03/2017 10/02/2017 Inactive spironolactone 25 mg tablet RxNorm: 741745 TAKE TWO TAB LETS BY MOUTH IN THE MORNING 09/19/2017 10/30/2017 Inactive Zithromax Z-Dale 250 mg tablet RxNorm: 641204 Tablet(s) PO take as directed 09/16/2017 10/11/2017 Inactive Medrol (Dale) 4 mg tablets in a dose pack RxNorm: 296605 Tablet(s) take as directed PO 09/16/2017 10/11/2017 Inactive doxycycline hyclate 100 mg tablet RxNorm: 9192231 1 Tablet(s) PO BI D 09/16/2017 09/15/2017 Inactive doxycycline hyclate 100 mg tablet RxNorm: 9839405 1 Tablet(s) PO BI D 09/16/2017 09/25/2017 Inactive Tessalon Perles 100 mg capsule RxNorm: 132576 1 Capsule(s) PO T ID as needed 09/16/2017 12/15/2017 Inactive warfarin 1 mg tablet RxNorm: 765836 1 Tablet(s) PO QD 09/06/201710/19 Inactive Coumadin 5 mg tablet RxNorm: 234446 Tablet(s) TAKE ONE TABLET BY MOUTH ONCE DAILY. 09/06/2017 10/31/2017 Inactive Toprol XL 200 mg tablet,extended release RxNorm: 193515 1 Table t(s) PO QD 2017 01/02/2018 Inactive warfarin 1 mg tablet RxNorm: 169866 1 Tablet(s) PO QD DUE FOR L ABS AUGUST 12 08/29/2017 09/06/2017 Inactive Coumadin 5 mg tablet RxNorm: 351060 Tablet(s) TAKE ONE TABLET BY MOUTH ONCE DAILY. DUE FOR PT/INR AUGUST 12 08/29/2017 09/06/2017 Inactive Coumadin 5 mg tablet RxNorm: 380431 Tablet(s) TAKE ONE TABLET BY MOUTH ONCE DAILY. DUE FOR PT/INR AUGUST 12 08/01/2017 08/29/2017 Inactive warfarin 1 mg tablet RxNorm: 245835 1 Tablet(s) PO QD DUE FOR L ABS AUGUST 12 08/01/2017 08/29/2017 Inactive scopolamine 1 mg over 3 days transdermal patch RxNorm: 20332 2 1 TD take off in 72 hours. 08/01/2017 12/26/2017 Inactive pravastatin 40 mg tablet RxNorm: 724430 Tablet(s) TAKE ONE TABLET BY MOUTH ONCE DAILY 07/07/2017 01/02/2018 Inactive Coumadin 5 mg tablet RxNorm: 442481 Tablet(s) TAKE ONE TABLET BY MOUTH ONCE DAILY. DUE FOR PT/INR. 06/29/2017 08/01/2017 Inactive warfarin 1 mg tablet RxNorm: 341694 1 Tablet(s) PO QD 06/29/201707/19 Inactive Coumadin 5 mg tablet RxNorm: 538621 TAKE ONE TABLET BY MOUTH ONCE DAILY. DUE FOR PT/INR. 05/30/2017 06/29/2017 Inactive omeprazole 40 mg capsule,delayed release RxNorm: 113893 1 Capsu le(s) PO BID 05/30/2017 08/27/2017 Inactive Celebrex 200 mg capsule RxNorm: 248808 1 Capsule(s) PO QD 05/23/2017 10/03/2017 Inactive metformin ER 500 mg tablet,extended release 24 hr RxNorm: 86 0975 TAKE ONE TABLET BY MOUTH TWICE DAILY 05/20/2017 10/20/2017 Inactive Coumadin 5 mg tablet RxNorm: 937302 1 Tablet(s) PO QD due for PT/IN R 04/25/2017 05/24/2017 Inactive warfarin 1 mg tablet RxNorm: 569538 1 Tablet(s) PO QD due for l abs this week 03/16/2017 06/29/2017 Inactive omeprazole 40 mg capsule,delayed release RxNorm: 217135 1 Capsu le(s) PO BID 03/16/2017 05/30/2017 Inactive Celebrex 200 mg capsule RxNorm: 698186 1 Capsule(s) PO BID as n eeded for pain 03/16/2017 05/22/2017 Inactive Coumadin 5 mg tablet RxNorm: 046053 1 Tablet(s) PO QD due for PT/IN R 03/16/2017 04/14/2017 Inactive Celebrex 200 mg capsule RxNorm: 550748 1 Capsule(s) PO BID as n eeded for pain 02/09/2017 03/15/2017 Inactive Toprol XL 200 mg tablet,extended release RxNorm: 988119 1 Table t(s) PO QD 02/08/2017 2017 Inactive Celebrex 200 mg capsule RxNorm: 525972 1 Capsule(s) PO BID as n eeded for pain 01/14/2017 02/08/2017 Inactive omeprazole 40 mg capsule,delayed release RxNorm: 703478 1 Capsu le(s) PO BID 01/12/2017 03/16/2017 Inactive Coumadin 5 mg tablet RxNorm: 831705 1 Tablet(s) PO QD 12/15/201602/19 Inactive warfarin 1 mg tablet RxNorm: 083658 1 Tablet(s) PO QD 12/15/201602/19 Inactive metformin ER 500 mg tablet,extended release 24 hr RxNorm: 86 0975 Tablet(s) TAKE ONE TABLET BY MOUTH TWICE DAILY 11/29/2016 02/26/2017 Inactive omeprazole 40 mg capsule,delayed release RxNorm: 367072 1 Capsu le(s) PO BID 11/29/2016 12/28/2016 Inactive pravastatin 40 mg tablet RxNorm: 499538 Tablet(s) TAKE ONE TABLET BY MOUTH ONCE DAILY 11/19/2016 07/07/2017 Inactive omeprazole 40 mg capsule,delayed release RxNorm: 452286 1 Capsu le(s) PO BID 10/19/2016 10/18/2016 Inactive omeprazole 40 mg capsule,delayed release RxNorm: 262435 1 Capsu le(s) PO BID 10/19/2016 11/17/2016 Inactive pantoprazole 40 mg tablet,delayed release RxNorm: 868561 1 Tabl et(s) PO QD 09/30/2016 10/18/2016 Inactive pantoprazole 40 mg tablet,delayed release RxNorm: 259374 1 Tabl et(s) PO QD 09/30/2016 09/29/2016 Inactive Zofran ODT 4 mg disintegrating tablet RxNorm: 991717 1 Tablet(s) PO Q4H as needed for nausea 09/15/2016 01/02/2017 Inactive Coumadin 5 mg tablet RxNorm: 609216 1 Tablet(s) PO QD 09/14/201611/20 Inactive warfarin 1 mg tablet RxNorm: 429136 1 Tablet(s) PO QD 09/14/201611/20 Inactive spironolactone 25 mg tablet RxNorm: 895254 2 Tablet(s) PO QAM 09/0301/02/2017 Inactive Wellbutrin XL 300 mg 24 hr tablet, extended release RxNorm: 527838 TAKE ONE TABLET BY MOUTH ONCE DAILY 08/26/2016 12/26/2017 Inactive Toprol XL 200 mg tablet,extended release RxNorm: 865632 1 Table t(s) PO QD 07/28/2016 02/08/2017 Inactive metformin ER 500 mg tablet,extended release 24 hr RxNorm: 86 0975 Tablet(s) TAKE ONE TABLET BY MOUTH TWICE DAILY 07/15/2016 11/29/2016 Inactive cyclobenzaprine 5 mg tablet RxNorm: 167016 1 Tablet(s) PO QHS f or spasm 07/08/2016 08/06/2016 Inactive Celebrex 200 mg capsule RxNorm: 1 Capsule(s) PO BID 07/08/2016 Inactive spironolactone 25 mg tablet RxNorm: 199200 1 Tablet(s) PO QAM 07/0609/02/2016 Inactive Wellbutrin XL 300 mg 24 hr tablet, extended release RxNorm: 972038 TAKE ONE TABLET BY MOUTH ONCE DAILY 06/15/2016 07/14/2016 Inactive Coumadin 5 mg tablet RxNorm: 150342 1 Tablet(s) PO QD 06/08/201608/20 Inactive warfarin 1 mg tablet RxNorm: 401416 1 Tablet(s) PO QD 06/08/201608/20 Inactive Toprol XL 200 mg tablet,extended release RxNorm: 992328 TAKE ONE TABLET BY MOUTH ONCE DAILY 04/26/2016 07/28/2016 Inactive pravastatin 40 mg tablet RxNorm: 277820 TAKE ONE TABLET BY MOUT H ONCE DAILY 04/19/2016 10/15/2016 Inactive Coumadin 5 mg tablet RxNorm: 181185 1 Tablet(s) PO QD 03/09/201605/19 Inactive warfarin 1 mg tablet RxNorm: 030664 1 Tablet(s) PO QD 03/09/201605/19 Inactive metformin ER 500 mg tablet,extended release 24 hr RxNorm: 86 0975 TAKE ONE TABLET BY MOUTH TWICE DAILY 02/25/2016 07/15/2016 Inactive spironolactone 25 mg tablet RxNorm: 708158 TAKE ONE TAB LET BY MOUTH ONCE DAILY IN THE MORNING 02/25/2016 07/06/2016 Inactive prednisone 20 mg tablet RxNorm: 522735 1 Tablet(s) PO QAM 02/16/2016 02/20/2016 Inactive cefdinir 300 mg capsule RxNorm: 870436 2 Capsule(s) PO QD 02/16/2016 02/25/2016 Inactive Toprol XL 200 mg tablet,extended release RxNorm: 746191 TAKE ONE TABLET BY MOUTH ONCE DAILY 01/26/2016 04/24/2016 Inactive Aciphex 20 mg tablet,delayed release RxNorm: 821377 1 Tablet(s) PO BID 12/24/2015 09/29/2016 Inactive Omeprazole and Pepci d have not helped. Coumadin 5 mg tablet RxNorm: 969623 1 Tablet(s) PO QD 12/10/201502/19 Inactive Coumadin 5 mg tablet RxNorm: 725360 1 Tablet(s) PO QD 12/08/201511/20 Inactive Toprol XL 200 mg tablet,extended release RxNorm: 157766 TAKE ONE TABLET BY MOUTH ONCE DAILY 11/20/2015 01/18/2016 Inactive warfarin 1 mg tablet RxNorm: 841788 1 Tablet(s) PO QD 11/03/201502/19 Inactive pravastatin 40 mg tablet RxNorm: 800798 Tablet(s) TAKE ONE TABLET BY MOUTH ONCE DAILY 10/20/2015 01/17/2016 Inactive pravastatin 40 mg tablet RxNorm: 631954 TAKE ONE TABLET BY MOUT H ONCE DAILY 10/20/2015 10/19/2015 Inactive metformin ER 500 mg tablet,extended release 24 hr RxNorm: 86 0975 TAKE ONE TABLET BY MOUTH TWICE DAILY 10/03/2015 12/31/2015 Inactive Toprol XL 200 mg tablet,extended release RxNorm: 346847 TAKE ONE TABLET BY MOUTH ONCE DAILY 09/17/2015 11/15/2015 Inactive Coumadin 5 mg tablet RxNorm: 694532 1 Tablet(s) PO QD 09/02/201511/19 Inactive Wellbutrin XL 300 mg 24 hr tablet, extended release RxNorm: 343548 TAKE ONE TABLET BY MOUTH ONCE DAILY 08/01/2015 10/29/2015 Inactive Pepcid 20 mg tablet RxNorm: 897175 1 Tablet(s) PO BID as needed 05/24/2017 Inactive warfarin 1 mg tablet RxNorm: 746929 TAKE ONE TABLET BY MOUTH ON CE DAILY 07/08/2015 11/03/2015 Inactive pravastatin 40 mg tablet RxNorm: 598618 1 Tablet(s) PO QD 07/08/2015 10/05/2015 Inactive spironolactone 25 mg tablet RxNorm: 735045 TAKE ONE TAB LET BY MOUTH ONCE DAILY IN THE MORNING 06/13/2015 09/10/2015 Inactive Coumadin 5 mg tablet RxNorm: 149318 1 Tablet(s) PO QD 06/05/201508/19 Inactive Wellbutrin XL 300 mg 24 hr tablet, extended release RxNorm: 699770 TAKE ONE TABLET BY MOUTH ONCE DAILY 05/16/2015 09/26/2018 Inactive Wellbutrin XL 300 mg 24 hr tablet, extended release RxNorm: 986007 TAKE ONE TABLET BY MOUTH ONCE DAILY 05/16/2015 06/14/2015 Inactive metformin ER 500 mg tablet,extended release 24 hr RxNorm: 86 0975 TAKE ONE TABLET BY MOUTH TWICE DAILY 05/16/2015 08/13/2015 Inactive pravastatin 40 mg tablet RxNorm: 797871 1 Tablet(s) PO QD 04/10/2015 07/07/2015 Inactive Aciphex 20 mg tablet,delayed release RxNorm: 556496 1 Tablet(s) PO BID 03/07/2015 09/02/2015 Inactive Omeprazole and Pepci d have not helped. Toprol XL 200 mg tablet,extended release RxNorm: 343472 1 Table t(s) PO QD 03/05/2015 08/31/2015 Inactive Aciphex 20 mg tablet,delayed release RxNorm: 881787 1 Tablet(s) PO QD 03/04/2015 03/06/2015 Inactive Omeprazole and Pepci d have not helped. Coumadin 5 mg tablet RxNorm: 887036 1 Tablet(s) PO QD 02/28/201511/2015 Inactive Aciphex 20 mg tablet,delayed release RxNorm: 530980 1 Tablet(s) PO BID 02/11/2015 03/03/2015 Inactive Omeprazole and Pepci d have not helped. metformin ER 500 mg tablet,extended release 24 hr RxNorm: 86 0975 1 Tablet(s) PO BID 01/10/2015 04/09/2015 Inactive pravastatin 40 mg tablet RxNorm: 179734 1 Tablet(s) PO QD 01/06/2015 04/05/2015 Inactive Wellbutrin XL 300 mg 24 hr tablet, extended release RxNorm: 924510 TAKE ONE TABLET BY MOUTH ONCE DAILY 12/19/2014 02/16/2015 Inactive amoxicillin 500 mg capsule RxNorm: 546404 2 Capsule(s) PO BID 12/0612/15/2014 Inactive Flonase 50 mcg/actuation nasal spray,suspension RxNorm: 8963 23 2 [place] each nostril NASAL QD 12/06/2014 03/05/2015 Inactive Coumadin 5 mg tablet RxNorm: 400139 1 Tablet(s) PO QD 11/28/201410/2014 Inactive spironolactone 25 mg tablet RxNorm: 352847 1 Tablet(s) PO QAM 11/2602/23/2015 Inactive Coumadin 5 mg tablet RxNorm: 659265 1 Tablet(s) PO QD 1 Tablet(s) PO QD- NEED TO CHECK LABS 10/30/2014 11/28/2014 Inactive warfarin 1 mg tablet RxNorm: 220500 1 Tablet(s) PO QD 10/30/2014/09/2015 Inactive Aciphex 20 mg tablet,delayed release RxNorm: 268755 1 Tablet(s) PO QD 10/02/2014 02/10/2015 Inactive Omeprazole and Pepci d have not helped. Coumadin 5 mg tablet RxNorm: 818473 1 Tablet(s) PO QD 1 Tablet(s) PO QD- NEED TO CHECK LABS 09/30/2014 10/30/2014 Inactive pravastatin 40 mg tablet RxNorm: 654493 1 Tablet(s) PO QD 09/25/2014 01/06/2015 Inactive warfarin 1 mg tablet RxNorm: 144543 1 Tablet(s) PO QD T [place] ONE TABLET BY MOUTH DIRECTED ON MON AND THUR 08/28/2014 10/29/2014 Inactive metformin ER 500 mg tablet,extended release 24 hr RxNorm: 86 0975 1 Tablet(s) PO BID 08/28/2014 01/10/2015 Inactive amoxicillin 875 mg tablet RxNorm: 249614 1 Tablet(s) PO BID 015 08/18/2014 Inactive Toprol XL 200 mg tablet,extended release RxNorm: 993889 TAKE ONE TABLET BY MOUTH ONCE DAILY 07/22/2014 03/05/2015 Inactive Coumadin 5 mg tablet RxNorm: 972292 1 Tablet(s) PO QD 07/01/201409/18 Inactive amoxicillin 875 mg tablet RxNorm: 958401 1 Tablet(s) PO BID 015 06/30/2014 Inactive pravastatin 40 mg tablet RxNorm: 017306 1 Tablet(s) PO QD needs fasting labs 06/19/2014 09/25/2014 Inactive Coumadin 5 mg tablet RxNorm: 189808 1 Tablet(s) PO QD 1 Tablet(s) PO QD TAKE ONE TABLET BY MOUTH ONCE DAILY-need labs 05/28/2014 07/01/2014 Inactive warfarin 1 mg tablet RxNorm: 625547 1 Tablet(s) PO As Directed 05/1908/28/2014 Inactive pravastatin 40 mg tablet RxNorm: 206334 1 Tablet(s) PO QD needs fasting labs 05/14/2014 06/19/2014 Inactive metformin ER 500 mg tablet,extended release 24 hr RxNorm: 86 0975 1 Tablet(s) PO BID 04/25/2014 08/28/2014 Inactive spironolactone 25 mg tablet RxNorm: 992491 1 Tablet(s) PO QAM 04/2511/26/2014 Inactive Coumadin 5 mg tablet RxNorm: 215486 1 Tablet(s) PO QD 1 Tablet(s) PO QD TAKE ONE TABLET BY MOUTH ONCE DAILY 04/23/2014 05/28/2014 Inactive Coumadin 5 mg tablet RxNorm: 951457 1 Tablet(s) PO QD 1 Tablet(s) PO QD TAKE ONE TABLET BY MOUTH ONCE DAILY 03/22/2014 04/20/2014 Inactive Tessalon Perles 100 mg capsule RxNorm: 029796 1 Capsule(s) PO TID 0 03/22/2014 03/28/2014 Inactive cefdinir 300 mg capsule RxNorm: 590909 2 Capsule(s) PO QD 03/22/2014 03/31/2014 Inactive Medrol (Dale) 4 mg tablets in a dose pack RxNorm: 468773 Tablet(s) PO as directed 03/05/2014 08/08/2014 Inactive Coumadin 5 mg tablet RxNorm: 100250 1 Tablet(s) PO QD 1 Tablet(s) PO QD TAKE ONE TABLET BY MOUTH ONCE DAILY 02/19/2014 03/20/2014 Inactive pravastatin 40 mg tablet RxNorm: 396651 1 Tablet(s) PO QD 02/04/2014 05/14/2014 Inactive Coumadin 5 mg tablet RxNorm: 322294 1 Tablet(s) PO QD T [place] ONE TABLET BY MOUTH ONCE DAILY 01/21/2014 02/19/2014 Inactive Medrol (Dale) 4 mg tablets in a dose pack RxNorm: 641330 Tablet(s) PO as directed 01/18/2014 03/04/2014 Inactive cefdinir 300 mg capsule RxNorm: 802297 2 Capsule(s) PO QD 01/16/2014 01/25/2014 Inactive metformin ER 500 mg tablet,extended release 24 hr RxNorm: 86 0975 1 Tablet(s) PO BID 12/17/2013 04/25/2014 Inactive Wellbutrin SR 150 mg tablet,sustained-release RxNorm: 767776 1 Tablet(s) PO BID 11/30/2013 02/27/2014 Inactive spironolactone 25 mg tablet RxNorm: 147463 1 Tablet(s) PO QAM 10/2204/25/2014 Inactive Macrobid 100 mg capsule RxNorm: 298819 1 Capsule(s) PO BID 10/20/19 14 10/25/2013 Inactive Macrobid 100 mg capsule RxNorm: 131276 1 Capsule(s) PO BID 10/20/19 14 10/18/2013 Inactive Toprol XL 100 mg tablet,extended release RxNorm: 333691 1 Table t(s) PO QD 10/15/2013 01/15/2014 Inactive Toprol XL 200 mg tablet,extended release RxNorm: 204436 1 Table t(s) PO QD 10/02/2013 07/22/2014 Inactive Wellbutrin XL 300 mg 24 hr tablet, extended release RxNorm: 541553 1 Tablet(s) PO QD 09/28/2013 12/19/2014 Inactive Aciphex 20 mg tablet,delayed release RxNorm: 661744 1 Tablet(s) PO QD 08/29/2013 10/02/2014 Inactive Omeprazole and Pepci d have not helped. Coumadin 5 mg tablet RxNorm: 500894 1 Tablet(s) PO QD 08/14/201307/20 Inactive Coumadin 5 mg tablet RxNorm: 989552 1 Tablet(s) PO QD 08/14/201305/2013 Inactive pravastatin 40 mg tablet RxNorm: 164401 1 Tablet(s) PO QD 07/24/2013 02/04/2014 Inactive warfarin 1 mg tablet RxNorm: 816417 1 Tablet(s) PO QD T [place] ONE TABLET BY MOUTH DIRECTED ON MON AND THUR 07/09/2013 05/28/2014 Inactive warfarin 5 mg tablet RxNorm: 767146 1 Tablet(s) PO QD T [place] ONE TABLET BY MOUTH EVERY DAY 06/08/2013 07/07/2013 Inactive spironolactone 25 mg tablet RxNorm: 435638 1 Tablet(s) PO QAM 05/3010/15/2013 Inactive clindamycin 300 mg capsule RxNorm: 822411 2 Capsule(s) PO TID 04/1704/30/2013 Inactive warfarin 5 mg tablet RxNorm: 205833 1 Tablet(s) PO QD 03/12/201305/20 Inactive azithromycin 250 mg tablet RxNorm: 647662 2 Tablet(s) PO QD 013 03/07/2013 Inactive metformin ER 500 mg tablet,extended release 24 hr RxNorm: 86 0975 1 Tablet(s) PO BID 02/22/2013 12/17/2013 Inactive spironolactone 25 mg tablet RxNorm: 711336 1 Tablet(s) PO QAM 01/2205/30/2013 Inactive metformin ER 500 mg tablet,extended release 24 hr RxNorm: 86 0977 1 Tablet(s) PO BID 01/11/2013 02/21/2013 Inactive pravastatin 40 mg tablet RxNorm: 812300 1 Tablet(s) PO QD 01/11/2013 07/24/2013 Inactive warfarin 5 mg tablet RxNorm: 020521 1 Tablet(s) PO QD 01/04/201302/19 Inactive warfarin 1 mg tablet RxNorm: 945523 Tablet(s) PO TAKE O NE TABLET BY MOUTH DIRECTED ON MON AND THUR 12/14/2012 07/08/2013 Inactive scopolamine 1.5 mg 72 hr Transderm Patch RxNorm: 716283 TD Apply 1 patch behind ear every 72 hours, replace after 3 days. 11/08/2012 01/15/2014 Inacti ve Pepcid 20 mg tablet RxNorm: 678568 1 Tablet(s) PO BID as needed 01/31/2013 Inactive Famvir 500 mg tablet RxNorm: 963721 1 Tablet(s) PO Q8H 11/03/2012 Inactive Aciphex 20 mg tablet,delayed release RxNorm: 586122 1 Tablet(s) PO QD 11/03/2012 05/01/2013 Inactive Omeprazole and Pepci d have not helped. gabapentin 300 mg capsule RxNorm: 810315 Capsule(s) PO TID 11/04/19 13 01/15/2014 Inactive warfarin 5 mg tablet RxNorm: 039125 1 Tablet(s) PO QD 11/02/201212/19 Inactive Wellbutrin XL 300 mg 24 hr tablet, extended release RxNorm: 502989 1 Tablet(s) PO QD 10/17/2012 04/30/2013 Inactive pravastatin 40 mg tablet RxNorm: 929899 Tablet(s) PO TA KE ONE TABLET BY MOUTH EVERY DAY. NEED FASTING LABS 09/18/2012 01/10/2013 Inactive Toprol XL 200 mg tablet,extended release RxNorm: 645553 Tablet(s) PO TAKE ONE TABLET BY MOUTH EVERY DAY 09/08/2012 10/01/2013 Inactive warfarin 5 mg tablet RxNorm: 501733 1 Tablet(s) PO QD 08/31/201210/19 Inactive pravastatin 40 mg tablet RxNorm: 825000 1 Tablet(s) PO QD Needs fasting labs 08/18/2012 09/16/2012 Inactive TAKE ONE TABLET BY M OUTH EVERY DAY warfarin 1 mg tablet RxNorm: 603598 1 Tablet(s) PO As directed on Mon and Thurs 08/11/2012 12/13/2012 Inactive spironolactone 25 mg tablet RxNorm: 238948 1 Tablet(s) PO QAM 07/1110/08/2012 Inactive warfarin 5 mg tablet RxNorm: 697559 1 Tablet(s) PO QD 07/03/201208/19 Inactive Diflucan 100 mg tablet RxNorm: 243402 1 Tablet(s) PO QD 05/04/2012 Inactive Cipro 500 mg tablet RxNorm: 682777 1 Tablet(s) PO BID 05/04/201204/22 Inactive Aciphex 20 mg tablet,delayed release RxNorm: 280900 1 Tablet(s) PO QD 05/04/2012 07/02/2012 Inactive Omeprazole and Pepci d have not helped. warfarin 5 mg tablet RxNorm: 624460 1 Tablet(s) PO QD 05/02/201206/19 Inactive warfarin 5 mg tablet RxNorm: 404238 1 Tablet(s) PO QD 03/02/201204/21 Inactive Toprol XL 200 mg tablet,extended release RxNorm: 389795 1 Table t(s) PO QD 03/02/2012 05/30/2012 Inactive spironolactone 25 mg tablet RxNorm: 854618 1 Tablet(s) PO QAM 02/0707/11/2012 Inactive pravastatin 40 mg tablet RxNorm: 134314 Tablet(s) PO 01/31/201208/17 Inactive TAKE ONE TABLET BY MOUTH EVERY DAY pravastatin 40 mg tablet RxNorm: 050596 1 Tablet(s) PO QD 01/31/2012 08/18/2012 Inactive omeprazole 40 mg capsule,delayed release RxNorm: 728251 1 Capsule(s) PO QD for stomach 01/11/2012 11/02/2012 Inactive for stomach warfarin 5 mg tablet RxNorm: 397060 1 Tablet(s) PO QD 01/03/201202/18 Inactive warfarin 5 mg tablet RxNorm: 212725 1 Tablet(s) PO QD 12/03/201112/19 Inactive pravastatin 40 mg tablet RxNorm: 080620 1 Tablet(s) PO QD 11/25/2011 01/23/2012 Inactive cefdinir 300 mg Cap RxNorm: 579060 1 Capsule(s) PO BID 10/11/201103/2011 Inactive Culturelle 10 billion cell Cap RxNorm: 398259 1 Capsule(s) PO BID 0 10/11/2011 11/09/2011 Inactive Diflucan 100 mg Tab RxNorm: 380112 1 Tablet(s) PO QD 10/11/201110/19 Inactive Wellbutrin XL 300 mg 24 hr tablet, extended release RxNorm: 864414 1 Tablet(s) PO QD 09/14/2011 10/17/2012 Inactive pravastatin 40 mg tablet RxNorm: 327653 1 Tablet(s) PO QD 08/25/2011 11/25/2011 Inactive Coumadin 5 mg tablet RxNorm: 871701 Tablet(s) PO Take as direct ed by doctor. 07/07/2011 12/03/2011 Inactive Singulair 10 mg Tab RxNorm: 780557 1 Tablet(s) PO QD al lergy medication. (Please try to be consistent in dosing) 06/23/2011 01/15/2014 Inactive Diflucan 100 mg Tab RxNorm: 771988 1 Tablet(s) PO QD 06/14/201107/02 Inactive cefdinir 300 mg Cap RxNorm: 726966 1 Capsule(s) PO BID 06/14/201106/2011 Inactive pravastatin 40 mg Tab RxNorm: 303745 1 Tablet(s) PO QD 05/25/201108/2011 Inactive warfarin 5 mg Tab RxNorm: 121589 Tablet(s) PO 05/25/2011 10/18/2011 In active TAKE ONE TABLET BY MOUTH EVERY DAY Toprol XL 200 mg tablet,extended release RxNorm: 316441 1 Table t(s) PO QD 03/05/2011 06/02/2011 Inactive spironolactone 25 mg tablet RxNorm: 752342 1 Tablet(s) PO QAM 02/2402/08/2012 Inactive omeprazole 40 mg capsule,delayed release RxNorm: 643338 1 Capsule(s) PO QD for stomach 01/06/2011 01/11/2012 Inactive for stomach warfarin 5 mg Tab RxNorm: 729343 1 Tablet(s) PO QD 12/17/2010 011 Inactive warfarin 5 mg Tab RxNorm: 185922 1 Tablet(s) PO QD 11/18/2010 011 Inactive spironolactone 25 mg Tab RxNorm: 095944 1 Tablet(s) PO QAM 11/13/19 11 02/24/2011 Inactive Coumadin 6 mg Tab RxNorm: 298574 1 Tablet(s) PO QD 10/28/2010 011 Inactive May have generic hydrochlorothiazide 25 mg Tab RxNorm: 150623 1 Tablet(s) PO QAM 11/11/2010 Inactive Wellbutrin XL 300 mg 24 hr Tab RxNorm: 647460 1 Tablet(s) PO QD 09/14/2011 Inactive Septra DS 800 mg-160 mg Tab RxNorm: 918558 1 Tablet(s) PO BID 06/0806/17/2010 Inactive Pyridium 100 mg Tab RxNorm: 6696570 1 Tablet(s) PO TID 06/08/2010 Inactive Wellbutrin XL 300 mg 24 hr Tab RxNorm: 167617 1 Tablet(s) PO QD 05/201007/15/2010 Inactive hydroxyzine 25 mg Tab RxNorm: 728036 1 Tablet(s) PO QID prn itching--take routinely at bedtime. (pt. may not refil at this time but later) 05/20/2010 10/10/2011 Inactive Zyrtec 10 mg Tab RxNorm: 6573654 1 Tablet(s) PO BID 05/20/20102010 Inactive Coumadin 1 mg Tab RxNorm: 002662 1 Tablet(s) PO 6mg M-F, 7mg S-S 11/16/2010 Inactive hydroxyzine 25 mg Tab RxNorm: 508203 1 Tablet(s) PO QID prn itching--take routinely at bedtime 04/30/2010 05/19/2010 Inactive Toprol XL 200 mg 24 hr Tab RxNorm: 461969 1 Tablet(s) PO QD 011 06/23/2010 Inactive lisinopril-hydrochlorothiazide 10 mg-12.5 mg Tab RxNorm: 197 885 1 Tablet(s) PO QD 04/20/2010 04/29/2010 Inactive omeprazole 40 mg Cap, Delayed Release RxNorm: 171438 1 Capsule(s) PO QD for stomach 04/20/2010 08/17/2010 Inactive lisinopril-hydrochlorothiazide 10 mg-12.5 mg Tab RxNorm: 197 885 Tablet(s) PO 1QDAM - TAKE ONE TABLET BY MOUTH EVERY DAY IN THE MORNING 03/09/2010 Inactive lisinopril-hydrochlorothiazide 10 mg-12.5 mg Tab RxNorm: 197 885 1 Tablet(s) PO QD 02/27/2010 04/20/2010 Inactive Wellbutrin XL 300 mg 24 hr Tab RxNorm: 086674 1 Tablet(s) PO QD 05/21/2010 Inactive lisinopril-hydrochlorothiazide 10 mg-12.5 mg Tab RxNorm: 197 885 1 Tablet(s) PO QD 01/28/2010 02/26/2010 Inactive omeprazole 40 mg Cap, Delayed Release RxNorm: 168954 1 Capsule(s) PO QD for stomach 01/22/2010 04/20/2010 Inactive Altace 10 mg Cap RxNorm: 810357 1 Capsule(s) PO QD for BP 01/22/2010 03/22/2010 Inactive Coumadin 6 mg Tab RxNorm: 449650 1 Tablet(s) PO QD May have generic 12/03/2009 05/01/2010 Inactive Coumadin 6 mg Tab RxNorm: 458744 1 Tablet(s) PO 12/01/2009 12/02/2009 Inactive Coumadin 1 mg Tab RxNorm: 041595 1 Tablet(s) PO QD 11/28/2009 010 Inactive Coumadin 1 mg Tab RxNorm: 325393 1 Tablet(s) PO QD 07/02/2009 010 Inactive Flexeril 10 mg tablet RxNorm: 033544 1 Tablet(s) PO TID No Start Date Active spironolactone 25 mg tablet RxNorm: 501080 1 Tablet(s) PO QAM No Star t Date Active lisinopril-hydrochlorothiazide 20 mg-12.5 mg Tab RxNorm: 197 886 2 Tablet(s) PO QAM No Start Date 10/12/2010 Inactive Zofran ODT 4 mg disintegrating tablet RxNorm: 534243 1 Tablet(s) PO Q6H as needed for nausea No Start Date 09/14/2016 Inactive Wellbutrin XL 300 mg 24 hr Tab RxNorm: 352925 1 Tablet(s) PO QD No Start Date 02/02/2010 Inactive alprazolam 0.25 mg tablet RxNorm: 513463 1 Tablet(s) PO prior t o flight No Start Date 05/24/2017 Inactive hydrocodone-acetaminophen 5 mg-500 mg Tab RxNorm: 185436 1-2 Tablet(s) PO Q4H as needed for pain No Start Date 12/02/2010 Inactive Toprol XL 100 mg 24 hr Tab RxNorm: 751174 1 Tablet(s) PO QD No Star t Date 10/14/2013 Inactive Celebrex 200 mg capsule RxNorm: 625771 1 Capsule(s) PO QD No Start Date 05/22/2017 Inactive scopolamine 1 mg over 3 days transdermal patch RxNorm: 02490 2 1 TD take off in 72 hours. No Start Date 07/31/2017 Inactive [employer] Ultra Test strips RxNorm: Test blood sugar daily No S tart Date 04/23/2018 Inactive Medrol (Dale) 4 mg tablets in a dose pack RxNorm: 793169 Tablet(s) PO As directed No Start Date 01/15/2014 Inactive Coumadin 5 mg Tab RxNorm: 204475 1 Tablet(s) PO QD No Start Date 06/19 Inactive Pepcid 40 mg Tab RxNorm: 792979 1 Tablet(s) PO QD No Start Date 06/23 Inactive prednisone 10 mg Tab RxNorm: 816362 1 Tablet(s) PO BID No Start Date 06/23/2010 Inactive spironolactone 25 mg tablet RxNorm: 127436 1 Tablet(s) PO QAM No St art Date 09/26/2018 Inactive scopolamine 1.5 mg 72 hr Transderm Patch RxNorm: 341476 TD Apply 1 patch behind ear every 72 hours, replace after 3 days. No Start Date 11/07/2012 Inacti ve azithromycin 250 mg Tab RxNorm: 367820 Tablet(s) PO 2 t abs on day one and one tab on days 2-5. (antibiotic) No Start Date 10/10/2011 Inactive Medrol (Dale) 4 mg Tabs in a Dose Pack RxNorm: 499125 1 Tablet(s) PO as directed. (steroid pack) No Start Date 10/10/2011 Inactive Lovenox 40 mg/0.4 mL subcutaneous syringe RxNorm: 705640 40 Mil ligram(s) SQ QD No Start Date 05/04/2018 Inactive Celebrex 200 mg capsule RxNorm: 886438 1 Capsule(s) PO BID as n eeded for pain No Start Date 01/13/2017 Inactive warfarin 1 mg tablet RxNorm: 514024 1 Tablet(s) PO As directed on Tue and No Start Date 08/10/2012 Inactive cefuroxime axetil 500 mg Tab RxNorm: 234192 1 Tablet(s) PO BID No S tart Date 06/13/2011 Inactive Lovenox 40 mg/0.4 mL subcutaneous syringe RxNorm: 890903 40 Mil ligram(s) SQ QD No Start Date 01/26/2018 Inactive Coumadin 5 mg tablet RxNorm: 687148 1 Tablet(s) PO QD No Start Date 0 08/13/2013 Inactive Medrol (Dale) 4 mg tablets in a dose pack RxNorm: 625223 Tablet(s) PO as directed No Start Date 01/17/2014 Inactive Coumadin 6 mg tablet RxNorm: 840660 1 Tablet(s) PO QD No Start Date 0 06/20/2016 Inactive warfarin 5 mg tablet RxNorm: 251543 1 Tablet(s) PO QD No Start Date 0 12/02/2011 Inactive Medrol (Dale) 4 mg Tabs in a Dose Pack RxNorm: 978073 Tablet(s) PO as directed No Start Date 06/23/2010 Inactive Flonase 50 mcg/actuation nasal spray,suspension RxNorm: 8963 23 2 [place] NASAL BID No Start Date 12/05/2014 Inactive Pepcid 20 mg tablet RxNorm: 249699 1 Tablet(s) PO BID as needed No Start Date 11/02/2012 Inactive Medication Administered No Medication Administered data Immunizations No Immunization data Results Observation Observation Code Item Item Code Result Date S ervice Location MICROALBUMIN URINE RANDOM 55096 CREAT MG/D 139 MG/DL Unknown MICROALBUMIN URINE RANDOM 83929 CRE/100 1.39 G/L 12/20 Unknown Procedures Procedure Codes Date URINALYSIS NONAUTO W/O SCOPE CPT-4: 65007 09/27/2018 URINE CULTURE/ COLONY COUNT CPT-4: 64230 09/27/2018 URINALYSIS NONAUTO W/O SCOPE CPT-4: 03228 10/13/2017 URINE CULTURE/ COLONY COUNT CPT-4: 14451 10/13/2017 STREP A ASSAY W/OPTIC CPT-4: 11128 06/21/2016 STREP A ASSAY W/OPTIC CPT-4: 75776 06/24/2014 THER/PROPH/DIAG INJ SC/IM CPT-4: 28386 03/22/2014 METHYLPREDNISOLONE 40 MG INJ CPT-4: J1030 03/22/2014 TRIAMCINOLONE ACET INJ NOS CPT-4: J3301 03/22/2014 URINALYSIS NONAUTO W/O SCOPE CPT-4: 25959 10/19/2013 URINE CULTURE/ COLONY COUNT CPT-4: 97337 10/19/2013 CEFTRIAXONE SODIUM INJECTION CPT-4: J0696 03/02/2013 THER/PROPH/DIAG INJ SC/IM CPT-4: 52753 03/02/2013 CEFTRIAXONE SODIUM INJECTION CPT-4: J0696 03/01/2013 THER/PROPH/DIAG INJ SC/IM CPT-4: 84789 03/01/2013 THER/PROPH/DIAG INJ SC/IM CPT-4: 76024 03/01/2013 METHYLPREDNISOLONE 40 MG INJ CPT-4: J1030 03/01/2013 TRIAMCINOLONE ACET INJ NOS CPT-4: J3301 03/01/2013 MICROALBUMIN QUANTITATIVE CPT-4: 70659 01/11/2013 URINE CULTURE/ COLONY COUNT CPT-4: 83440 05/04/2012 URINALYSIS NONAUTO W/O SCOPE CPT-4: 31103 05/04/2012 URINE CULTURE/ COLONY COUNT CPT-4: 81134 05/29/2010 TRIAMCINOLONE ACET INJ NOS CPT-4: J3301 05/20/2010 METHYLPREDNISOLONE 40 MG INJ CPT-4: J1030 05/20/2010 THER/PROPH/DIAG INJ SC/IM CPT-4: 67598 05/20/2010 Vital Signs Date Vital 09/27/2018 Blood Pressure 1: 136/82 Code: 8480-6 Heart Rate 1: 68 bpm Respiratory Rate: 20 bpm SpO2: 96% Temperature: 36.6 (C) / 97.9 (F) We ight: 244 lbs 04/24/2018 Blood Pressure 1: 134/78 Code: 8480-6 BMI: 35.1 Code: 61561-3 Heart Rate 1: 76 bpm Height: 5'9" Respiratory Rate: 20 bpm Temperature: 36 .6 (C) / 97.8 (F) Weight: 238 lbs 12/27/2017 Blood Pressure 1: 126/64 Code: 8480-6 BMI: 34.7 Code: 27649-6 Heart Rate 1: 72 bpm Height: 5'9" Respiratory Rate: 20 bpm Temperature: 36 .8 (C) / 98.2 (F) Weight: 235 lbs 10/12/2017 Blood Pressure 1: 142/80 Code: 8480-6 BMI: 35.1 Code: 72976-2 Heart Rate 1: 98 bpm Height: 5'9" Respiratory Rate: 22 bpm SpO2: 100% Tempera ture: 36.5 (C) / 97.7 (F) Weight: 238 lbs 09/16/2017 Blood Pressure 1: 136/82 Code: 8480-6 BMI: 34.1 Code: 67922-4 Heart Rate 1: 82 bpm Height: 5'9" Respiratory Rate: 18 bpm SpO2: 96% Tempera ture: 36.3 (C) / 97.3 (F) Weight: 231 lbs 05/25/2017 Blood Pressure 1: 122/82 Code: 8480-6 BMI: 32.3 Code: 71545-6 Heart Rate 1: 116 bpm Height: 5'9" Respiratory Rate: 20 bpm SpO2: 98% Tempera ture: 35.6 (C) / 96.1 (F) Weight: 219 lbs 01/03/2017 Blood Pressure 1: 126/78 Code: 8480-6 BMI: 33.4 Code: 65506-7 Heart Rate 1: 72 bpm Height: 5'9" Respiratory Rate: 20 bpm Temperature: 36 .8 (C) / 98.2 (F) Weight: 226 lbs 09/23/2016 Blood Pressure 1: 126/82 Code: 8480-6 BMI: 33.8 Code: 49779-3 Heart Rate 1: 80 bpm Height: 5'9" Respiratory Rate: 20 bpm SpO2: 97% Tempera ture: 36.8 (C) / 98.2 (F) Weight: 229 lbs 09/03/2016 Blood Pressure 1: 188/64 Code: 8480-6 Bl ood Pressure 2: 166/92 Code: 8480-6 BMI: 34.4 Code: 06305-2 Heart Rate 1: 66 bpm Height: 5'9" Res piratory Rate: 20 bpm SpO2: 98% Temperature: 35.7 (C) / 96.2 (F) Weight: 233 lbs 07/08/2016 Blood Pressure 1: 134/82 Code: 8480-6 Heart Rate 1: 64 bpm Height: 5'9" Respiratory Rate: 20 bpm SpO2: 97% Temperature: 36.6 (C) / 97.8 (F) Weight: 06/21/2016 Blood Pressure 1: 112/68 Code: 8480-6 BMI: 33.8 Code: 99111-9 Heart Rate 1: 64 bpm Height: 5'9" Respiratory Rate: 20 bpm SpO2: 95% Tempera ture: 36.3 (C) / 97.3 (F) Weight: 229 lbs 02/23/2016 Blood Pressure 1: 128/78 Code: 8480-6 BMI: 33.4 Code: 91635-4 Heart Rate 1: 74 bpm Height: 5'9" [...] 1: 122/80 Code: 8480-6 BMI: 32.2 Code: 01832-8 Heart Rate 1: 80 bpm Height: 5'9" Respiratory Rate: 20 bpm Temperature: 37 .0 (C) / 98.6 (F) Weight: 218 lbs 08/09/2014 Blood Pressure 1: 132/84 Code: 8480-6 BMI: 33.1 Code: 19320-7 Heart Rate 1: 72 bpm Height: 5'9" Respiratory Rate: 20 bpm Temperature: 36 .7 (C) / 98.0 (F) Weight: 224 lbs 06/24/2014 Blood Pressure 1: 132/80 Code: 8480-6 BMI: 32.8 Code: 73587-6 Heart Rate 1: 68 bpm Height: 5'9" Respiratory Rate: 20 bpm Temperature: 36 .4 (C) / 97.6 (F) Weight: 222 lbs 03/22/2014 Blood Pressure 1: 128/84 Code: 8480-6 BMI: 32.5 Code: 75530-9 Heart Rate 1: 78 bpm Height: 5'9" Respiratory Rate: 22 bpm Temperature: 36 .0 (C) / 96.8 (F) Weight: 220 lbs 03/05/2014 Blood Pressure 1: 124/78 Code: 8480-6 BMI: 31.9 Code: 95016-9 Heart Rate 1: 82 bpm Height: 5'9" Respiratory Rate: 20 bpm Temperature: 35 .8 (C) / 96.4 (F) Weight: 216 lbs 01/16/2014 Blood Pressure 1: 116/68 Code: 8480-6 BMI: 33.8 Code: 47277-8 Heart Rate 1: 72 bpm Height: 5'7" Respiratory Rate: 20 bpm Temperature: 36 .6 (C) / 97.9 (F) Weight: 216 lbs 05/10/2013 Blood Pressure 1: 124/86 Code: 8480-6 BMI: 34.3 Code: 31145-4 Heart Rate 1: 84 bpm Height: 5'7" [...] 1: 116/84 Code: 8480-6 BMI: 33.1 Code: 08928-4 Heart Rate 1: 64 bpm Height: 5'9" Respiratory Rate: 20 bpm Temperature: 36 .4 (C) / 97.6 (F) Weight: 224 lbs 01/11/2013 Blood Pressure 1: 126/84 Code: 8480-6 BMI: 35.3 Code: 57906-7 Heart Rate 1: 68 bpm Height: 5'9" Respiratory Rate: 20 bpm Temperature: 36 .7 (C) / 98.1 (F) Weight: 239 lbs 11/03/2012 Blood Pressure 1: 104 Code: 8480-6 BMI: 34.4 Code: 51044-2 Heart Rate 1: 72 bpm Height: 5'9" Respiratory Rate: 20 bpm Temperature: 36 .8 (C) / 98.3 (F) Weight: 233 lbs 05/04/2012 Blood Pressure 1: 12474 Code: 8480-6 BMI: 33.7 Code: 36772-0 Heart Rate 1: 84 bpm Height: 5'9" Temperature: 36.3 (C) / 97.3 (F) Weight: 228 lbs 10/11/2011 Blood Pressure 1: 11070 Code: 8480-6 BMI: 33.7 Code: 58105-1 Heart Rate 1: 64 bpm Height: 5'9" Temperature: 36.8 (C) / 98.3 (F) Weight: 228 lbs 06/23/2011 Blood Pressure 1: 114 Code: 8480-6 BMI: 33.4 Code: 97710-0 Heart Rate 1: 80 bpm Height: 5'9" Respiratory Rate: 20 bpm Temperature: 36 .7 (C) / 98.0 (F) Weight: 226 lbs 06/14/2011 Blood Pressure 1: 118 Code: 8480-6 BMI: 33.4 Code: 72249-6 Heart Rate 1: 80 bpm Height: 5'9" [...] 1: 126/82 Code: 8480-6 BMI: 32.6 Code: 92519-9 Heart Rate 1: 68 bpm Height: 5'9" [...] 1: 140/92 Code: 8480-6 BMI: 31.3 Code: 96398-8 Heart Rate 1: 60 bpm Height: 5'10" [...] upper back on 08/13/16 while camping around [place], [place]. Patient states is tender around tick [...] 01/22/2010 Encounters Encounter Performer Location Codes Date ([id number]) OFFICE/OUTPATIENT VISIT EST Diagnosis: Gastro-esophageal reflux disease without esophagitis[ICD10: K21.9] Diagnosis: Urinary tract infection, site not specified[ICD10: N39.0] Diagnosis: Ventral hernia without obstruction or gangrene[ICD10: K43.9] Jessica GEE Manga Corta [facility] CPT-4: 58106 09/27/2018 ([id number]) OFFICE/OUTPATIENT VISIT EST Diagnosis: Essential (primary) hypertension[ICD10: I10] Diagnosis: Type 2 diabetes mellitus without complications[ICD10: E11.9] Diagnosis: Carpal tunnel syndrome, right upper limb[ICD10: G56.01] Diagnosis: Primary insomnia[ICD10: F51.01] Jessica GEE DO [facility] CPT-4: 04696 04/24/2018 ([id number]) OFFICE/OUTPATIENT VISIT EST Diagnosis: Type 2 diabetes mellitus without complications[ICD10: E11.9] Diagnosis: Mixed hyperlipidemia[ICD10: E78.2] Diagnosis: Essential (primary) hypertension[ICD10: I10] Diagnosis: Pain in unspecified joint[ICD10: M25.50] Jessica GEE [facility]anga [facility] CPT-4: 23855 12/27/2017 ([id number]) NURSE/OUTPATIENT VISIT EST Diagnosis: Hematuria, unspecified[ICD10: R31.9] Jessica MCCORMICKER [facility]anga [facility] CPT-4: 19029 10/13/2017 ([id number]) OFFICE/OUTPATIENT VISIT EST Diagnosis: Pleurodynia[ICD10: R07.81] Sofi HYMAN JUSTEN [facility]anga [facility] CPT-4: 01917 10/12/2017 ([id number]) OFFICE/OUTPATIENT VISIT EST Diagnosis: Acute bronchitis, unspecified[ICD10: J20.9] Sofi SUTTONNDER DO [facility] CPT-4: 29347 09/16/2017 ([id number]) OFFICE/OUTPATIENT VISIT EST Diagnosis: Other specified postprocedural states[ICD10: Z98.890] Diagnosis: Cellulitis of neck[ICD10: L03.221] Diagnosis: Tachycardia, unspecified[ICD10: R00.0] Jessica BELTRAN SLloyd SUTTONNDER [facility] CPT-4: 75365 05/25/2017 ([id number]) OFFICE/OUTPATIENT VISIT EST Diagnosis: Lumbago with sciatica, right side[ICD10: M54.41] Diagnosis: Pain in unspecified joint[ICD10: M25.50] Jessica GEE [facility] CPT-4: 39962 01/03/2017 ([id number]) OFFICE/OUTPATIENT VISIT EST Diagnosis: Bitten or stung by nonvenomous insect and other nonvenomous arthropods, subsequent encounter[ICD10: W57.XXXD] Diagnosis: Essential (primary) hypertension[ICD10: I10] Diagnosis: Low back pain[ICD10: M54.5] Jessica CARBAJAL [facility] CPT-4: 17691 09/23/2016 OFFICE/OUTPATIENT VISIT EST Diagnosis: Bitten or stung by nonvenomous insect and other nonvenomous arthropods, initial encounter[ICD10: W57.XXXA] Diagnosis: Essential (primary) hypertension[ICD10: I10] Kaitlynn Mosley JESSICA GEE [facility] CPT-4: 10069 09/03/2016 ([id number]) OFFICE/OUTPATIENT VISIT EST Diagnosis: Low back pain[ICD10: M54.5] Diagnosis: Radiculopathy, lumbosacral region[ICD10: M54.17] Jessica GEE [facility] CPT-4: 42060 07/08/2016 ([id number]) OFFICE/OUTPATIENT VISIT EST Diagnosis: Acute pharyngitis, unspecified[ICD10: J02.9] Jessica GEE [facility] CPT-4: 07882 06/21/2016 ([id number]) OFFICE/OUTPATIENT VISIT EST Diagnosis: Cough[ICD10: R05] Diagnosis: Fever, unspecified[ICD10: R50.9] Janiya Gregorio JESSICA GEE [facility] CPT-4: 81810 02/23/2016 ([id number]) OFFICE/OUTPATIENT VISIT EST Diagnosis: Acute sinusitis, unspecified[ICD10: J01.90] Jessica GEE [facility] CPT-4: 51206 02/16/2016 OFFICE/OUTPATIENT VISIT EST Diagnosis: Type 2 diabetes mellitus without complications[ICD10: E11.9] Diagnosis: Gastro-esophageal reflux disease without esophagitis[ICD10: K21.9] Diagnosis: Ventral hernia without obstruction or gangrene[ICD10: K43.9] Suki GEE DO 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 CPT-4: 20611 01/28/2015 OFFICE/OUTPATIENT VISIT EST Diagnosis: SINUSITIS, ACUTE[ICD9: 461.9] Kaitlynn Mosley JESSICA Monica GEE [facility] CPT-4: 50092 12/06/2014 ([id number]) OFFICE/OUTPATIENT VISIT EST Diagnosis: SINUSITIS, ACUTE[ICD9: 461.9] Kaitlynn Mosley JESSICA GEE [facility] CPT-4: 69393 08/09/2014 ([id number]) OFFICE/OUTPATIENT VISIT EST Diagnosis: TONSILLITIS, ACUTE[ICD9: 463] Suki GEE DO [facility] CPT-4: 96641 06/24/2014 OFFICE/OUTPATIENT VISIT EST Diagnosis: SINUSITIS, ACUTE[ICD9: 461.9] Diagnosis: EUSTACHIAN TUBE DYSFUNCTION[ICD9: 381.81] Diagnosis: COUGH[ICD9: 786.2] Suki GEE Manga Cort[facility] CPT-4: 54059 03/22/2014 OFFICE/OUTPATIENT VISIT EST Diagnosis: Elbow pain, right[ICD9: 719.42] Suki GEE DO [facility] CPT-4: 60006 03/05/2014 OFFICE/OUTPATIENT VISIT EST Diagnosis: SINUSITIS, ACUTE[ICD9: 461.9] Jessica GEE [facility] CPT-4: 61490 01/16/2014 ([id number]) OFFICE/OUTPATIENT VISIT EST Diagnosis: GROSS HEMATURIA[ICD9: 599.71] Jessica Marlen GEE [facility] CPT-4: 58733 10/19/2013 ([id number]) OFFICE/OUTPATIENT VISIT EST Diagnosis: DM W/O COMPLICATION TYPE II[ICD9: 250.00] Diagnosis: HYPERLIPIDEMIA NEC/NOS[ICD9: 272.4] Jessica KING Monica GEE [facility] CPT-4: 66248 05/10/2013 ([id number]) OFFICE/OUTPATIENT VISIT EST Diagnosis: SINUSITIS, ACUTE[ICD9: 461.9] Jessica VO DomingaLloyd MARLEN [facility] CPT-4: 18078 04/17/2013 OFFICE/OUTPATIENT VISIT EST Diagnosis: OTITIS MEDIA NOS[ICD9: 382.9] Diagnosis: COUGH[ICD9: 786.2] Suki VanLucilaaudraaby JESSICA Monica GEE [facility] CPT-4: 27385 03/05/2013 OFFICE/OUTPATIENT VISIT EST Diagnosis: COUGH[ICD9: 786.2] Diagnosis: BRONCHITIS, ACUTE[ICD9: 466.0] Suki VO Dominga Lloyd MARLEN [facility] CPT-4: 82817 03/02/2013 OFFICE/OUTPATIENT VISIT EST Diagnosis: COUGH[ICD9: 786.2] Diagnosis: OTITIS MEDIA NOS[ICD9: 382.9] Diagnosis: BRONCHITIS, ACUTE[ICD9: 466.0] Suki Jun SMITHLINE Dominga GEE [facility] CPT-4: 93962 03/01/2013 OFFICE/OUTPATIENT VISIT EST Diagnosis: DM W/O COMPLICATION TYPE II, UNCONTROLLED[ICD9: 250.02] Jessica [facility]oyd [facility]: 80144 02/22/2013 ([id number]) PREV VISIT EST AGE 40-64 Diagnosis: DM W/O COMPLICATION TYPE II, UNCONTROLLED[ICD9: 250.02] Diagnosis: HYPERTENSION[ICD9: 401.9] Diagnosis: ROUTINE MEDICAL EXAM[ICD9: V70.0] Jessica Lucas DomingaLloyd MARLEN [facility] CPT-4: 87880 01/11/2013 OFFICE/OUTPATIENT VISIT EST Diagnosis: HZ (HERPES ZOSTER)[ICD9: 053.9] Kaitlynn VO DomingaLloyd [facility] CPT-[facility]: 38860 11/03/2012 OFFICE/OUTPATIENT VISIT EST Diagnosis: URINARY TRACT INFECTION[ICD9: 599.0] Diagnosis: GERD[ICD9: 530.81] Diagnosis: PHARYNGITIS, ACUTE[ICD9: 462] Jessica Michaelaaronderek JESSICA DomingaLloyd [facility] CPT-4: 51069 05/04/2012 OFFICE/OUTPATIENT VISIT EST Diagnosis: COUGH[ICD9: 786.2] Diagnosis: SINUSITIS, ACUTE[ICD9: 461.9] Diagnosis: PHARYNGITIS, ACUTE[ICD9: 462] Jessica Michaelaaronderek JESSICA DomingaLloyd [facility] CPT-4: 45566 10/11/2011 OFFICE/OUTPATIENT VISIT EST Diagnosis: COUGH[ICD9: 786.2] Diagnosis: SINUSITIS, ACUTE[ICD9: 461.9] Diagnosis: PHARYNGITIS, ACUTE[ICD9: 462] Diagnosis: ALLERGIC RHINITIS[ICD9: 477.9] Xiomara Desai [facility] CPT-4: 99415 06/23/2011 OFFICE/OUTPATIENT VISIT EST Diagnosis: COUGH[ICD9: 786.2] Diagnosis: SINUSITIS, ACUTE[ICD9: 461.9] Diagnosis: PHARYNGITIS, ACUTE[ICD9: 462] Jessica VO DomingaLloyd [facility] CPT-4: 55250 06/14/2011 OFFICE/OUTPATIENT VISIT EST Diagnosis: SINUSITIS, ACUTE[ICD9: 461.9] Diagnosis: PHARYNGITIS, ACUTE[ICD9: 462] Jessica Anderson [facility] CPT-4: 62768 12/02/2010 OFFICE/OUTPATIENT VISIT EST Diagnosis: HYPERTENSION[ICD9: 401.9] Diagnosis: HYPERLIPIDEMIA NEC/NOS[ICD9: 272.4] Diagnosis: DERMATITIS NOS[ICD9: 692.9] Jessica [facility] CPT-4: 25974 11/12/2010 OFFICE/OUTPATIENT VISIT EST Jessica Anderson [facility] CPT- 4: 28727 10/13/2010 ([id number]) OFFICE/OUTPATIENT VISIT EST [facility] CPT-4: 02942 06/24/2010 ([id number]) OFFICE/OUTPATIENT VISIT EST Jessica RODRIGUEZ CPT-4: 26055 06/08/2010 ([id number]) OFFICE/OUTPATIENT VISIT EST Xiomara MCCORMICKER DO [facility]LEX[facility] CPT-4: 64581 05/20/2010 ([id number]) OFFICE/OUTPATIENT VISIT EST Jessica MCCORMICKER DO [facility] CPT-4: 85575 04/30/2010 ([id number]) OFFICE/OUTPATIENT VISIT, EST Jessica GEE DO [facility] CPT-4: 69585 01/22/2010 Plan of Care Planned Activity Notes [...] K21.9 09/27/2018 Appointment: [facility] [phone] [id number] [facility] 09/27/2018 Visit Diagnosis Plan: Carpal [...] F51.01 04/24/2018 Appointment: [facility] [phone] [facility] [facility] 04/24/2018 Patient Education: celecoxib- [employer] [id number] Completed 04/24/2018 Patient Education: amitriptyline- [employer] [id number] Completed 04/24/2018 Visit Diagnosis Plan: Type 2 [...] M25.50 12/27/2017 Appointment: [facility] [phone] [facility] [facility] 12/27/2017 Patient Education: Patient Medication Summary Completed 12/27/2017 Patient Education: Patient Medication Summary Completed 12/19/2017 Care Plan: MAMMOGRAM BOTH BREASTS LOINC : 86011-2 Pending 12/19/2017 Patient Education: Patient Medication Summary Completed 12/16/2017 Care Plan: ASSAY THYROID STIM HORMONE Pen ding 12/16/2017 Care Plan: ASSAY OF FREE THYROXINE Pendin g 12/16/2017 Care Plan: LIPID PANEL LOINC : 74101-6 Pending 12/16/2017 Care Plan: CBC Pending 12/16/2017 Care Plan: A1C HPLC LOINC : 87079-9 Pending 12/16/2017 Patient Education: Patient Medication Summary Completed 10/17/2017 Care Plan: CT ANGIOGRAPHY CHEST LOINC : 38615-9 Pending 10/17/2017 Patient Education: Patient Medication Summary Completed 10/14/2017 Care Plan: CT ANGIOGRAPHY CHEST [facility] : 71434-1 Pending 10/14/2017 Appointment: Jessica Gee WPtel: [address] [place] [address] UA 10/13/2017 Patient Education: Patient Medication Summary Completed 10/13/2017 Visit Diagnosis Plan: Pleurodynia Discussion: patient sent for stat cxray. medrol dose pack prescribed for symptom management. instructed to perform deep breathing exercises at home to prevent atelectasis or pneumonia. will notify pa kevin of results of xray and order additional tests/medications as needed. ICD-9 : 786.50 ICD-10 : R07.81 10/12/2017 Appointment: Sofi Gresham [address] [place] [address] ACUTE ILLNESS 10/12/2017 Patient Education: Patient Medication [...] ICD-10 : J20.9 09/16/2017 Appointment: Sofi Gresham [address] [place] [address] ACUTE ILLNESS 09/16/2017 Patient Education: Patient Medication Summary Completed 09/16/2017 Appointment: Jessica Gee WPtel: [address] [place] [address] CANCELED 08/10/2017 Visit Diagnosis Plan: Cellulitis of [...] : R00.0 05/25/2017 Appointment: Jessica Gee WPtel: [facility] [place] [phone] FOLLOW UP 05/25/2017 Patient Education: Patient Medication Summary Completed 05/25/2017 Visit Diagnosis Plan: Lumbago with sciatica, right britton e Discussion: Check arthritis panel Patient awaiting neck surgery before surgery will consider back surgery ICD-9 : 724.2 ICD-10 : M54.41 01/03/2017 Appointment: Jessica Gee WPtel: [facility] ACUTE ILLNESS 01/03/2017 Patient Education: Patient Medication Summary Completed 01/03/2017 Patient Education: Patient Medication Summary Completed 12/16/2016 Care Plan: MAMMOGRAM SCREENING LOINC : 2 6347-5 Pending 12/16/2016 Patient Education: Patient Medication Summary Completed 10/07/2016 Care Plan: MRI LUMBAR SPINE W/O & W/DYE LOINC : 35056-6 Pending 10/07/2016 Visit Diagnosis Plan: Essential (primary) [...] : W57.XXXD 09/23/2016 Appointment: Jessica Gee WPtel: [id number] 09/22 confirmed WORK IN 09/23/2016 Patient Education: Patient Medication Summary Completed 09/23/2016 Visit Plan: Tick panel at [facility] Increa se spironolactone to 2 po am (New Rx sent) Take B/P at home/work and also come to office next week for recheck Will await lab results before starting any antibiotic 09/03/2016 Appointment: Kaitlynn Mosley WPtel: [address] [place] [address] ACUTE ILLNESS 09/03/2016 Patient Education: Patient Medication Summary Completed 09/03/2016 Visit Diagnosis Plan: Low back pain Discussion: Celebr ex BID PT Continue stretches at home L/S xray Follow Up: 1 months ICD-9 : 724.2 ICD-10 : M54.5 07/08/2016 Appointment: Jessica Gee WPtel: [address] [place] [address] ACUTE ILLNESS 07/08/2016 Patient Education: Patient Medication Summary Completed 07/08/2016 Care Plan: X-RAY EXAM L-S SPINE 2/3 VWS LOINC : 23235-2 Pending 07/08/2016 Visit Plan: Supportive care. Rest, Fluid s, Tylenol/Motrin prn fever or bodyaches. Notify if worsening symptoms.New toothebrush in 5 days 06/21/2016 Visit NOS Plan: Plan Notes: Supportive care. Rest, Fluids... 06/21/2016 Visit Diagnosis Plan: Acute pharyngitis, unspecified D iscussion: Strep Negative Supportive Care May use zyrtec 10mg q HS ICD-9 : 462 ICD-10 : J02.9 06/21/2016 Appointment: Jessica Gee WPtel: [address] [place] [address] ACUTE ILLNESS 06/21/2016 Patient Education: Patient Medication Summary Completed 06/21/2016 Visit Plan: No pulseox last week to comp are to today, but she does sound diminished today Studies as above ordered Continue cefdinir until results received Increase albuterol treatments to q4-6hrs PRN Continue supportive care 02/23/2016 Appointment: Janiya Gregorio [address] [place] [address] ACUTE ILLNESS 02/23/2016 Patient Education: Patient Medication Summary Completed 02/23/2016 Care Plan: CHEST X-RAY 2VW FRONTAL&LATL LOINC : 38042-3 Pending 02/23/2016 Visit Plan: Saline nasal flushes prn. Ty lenol/Motrin prn headache. Notify if persists/symptoms worsening. 02/16/2016 Appointment: Jessica Gee WPtel: [address] [place] [address] ACUTE ILLNESS 02/16/2016 Patient Education: Patient Medication Summary Completed 02/16/2016 Visit Plan: Discussed labs Continue Topr ol at 200 mg PO daily Increase Aciphex to BID Notify if increase of Aciphex does not give relief. Repeat PT/INR in 2 weeks. 02/11/2015 Appointment: Suki Barahona WPtel: [address] [place] [address] 02/10 confirmed ~sl FOLLOW UP 02/11/2015 Patient Education: Patient Medication Summary Completed 02/11/2015 Patient Education: Patient Medication Summary Completed 02/06/2015 Care Plan: POC PROTIME/INR LOINC : 24489 -6 Pending 02/06/2015 Visit Plan: Increase Toprol XL 200 mg to one full tablet daily (is currently taking only 1/2 tablet) To for EKG today Monitor daily BP Notify of any changes- increased numbness, weakness, headache etc. 01/28/2015 Appointment: Suki Barahona WPtel: [address] [place] [address] ACUTE ILLNESS 01/28/2015 Patient Education: Patient Medication Summary Completed 01/28/2015 Visit Plan: ERx Amoxicillin and Flonase Nasal saline, humidified air Facial heat or cold packs for comfort Increase fluids/rest Discussed s/s of worsening, go to over weekend if these occur. 12/06/2014 Appointment: Kaitlynn Mosley WPtel: [address] [place] [address] ACUTE ILLNESS 12/06/2014 Patient Education: Patient Medication Summary Completed 12/06/2014 Appointment: Kaitlynn Mosley WPtel: [address] [place] [address] ACUTE ILLNESS 08/09/2014 Patient Education: Patient Medication Summary Completed 08/09/2014 Appointment: Suki Barahona WPtel: [address] [place] [address] ACUTE ILLNESS 06/24/2014 Patient Education: Patient Medication Summary Completed 06/24/2014 Appointment: Suki Barahona WPtel: [address] [place] [address] ACUTE ILLNESS 03/22/2014 Patient Education: Patient Medication Summary Completed 03/22/2014 Patient Education: [employer] - Antibi otics, Analgesics 18+, Oral Contraceptives F 18+ Completed 03/22/2014 Appointment: Suki Barahona WPtel: [address] [place] [address] FOLLOW UP 03/05/2014 Patient Education: Patient Medication Summary Completed 03/05/2014 Visit Plan: Saline nasal flushes prn. Ty lenol/Motrin prn headache. Notify if persists/symptoms worsening. Restart flonase 01/16/2014 Appointment: Jessica Gee WPtel: [address] [place] [address] ACUTE ILLNESS 01/16/2014 Patient Education: Patient Medication Summary Completed 01/16/2014 Appointment: Jessica Gee WPtel: [address] [place] [address] 10/19/2013 Patient Education: Patient Medication Summary Completed 10/19/2013 Appointment: Jessica Gee WPtel: [address] [place], [place] [id number] 08/08 patient canceled appt and said will call back to [facility] FOLLOW UP 08/09/2013 Visit Plan: Increase Coumadin to 6mg M-F and stay on 5mg Sat, Sun Add lipids to labs Check PT/INR in 3wks Continue metfromin at current dose and accuchecks 05/10/2013 Appointment: Jessica Gee WPtel: [address] [place], [place] [id number] 05/09 FOLLOW UP 05/10/2013 Patient Education: Patient Medication Summary Completed 05/10/2013 Visit Plan: Saline nasal flushes prn. Ty lenol/Motrin prn headache. Notify if persists/symptoms worsening. 04/17/2013 Appointment: Jessica Gee WPtel: [address] [place] [address] ACUTE ILLNESS 04/17/2013 Patient Education: Patient Medication Summary Completed 04/17/2013 Appointment: Suki Barahona WPtel: [address] [place] [address] FOLLOW UP 03/05/2013 Patient Education: Patient Medication Summary Completed 03/05/2013 Appointment: Suki Barahona WPtel: [address] [place] [address] FOLLOW UP 03/02/2013 Patient Education: Patient Medication Summary Completed 03/02/2013 Appointment: Suki Barahona WPtel: [address] [place] [address] ACUTE ILLNESS 03/01/2013 Patient Education: Patient Medication Summary Completed 03/01/2013 Visit Plan: Continue metformin and accuc hecks Add fish oil 1gram daily Check HbA1C, CMP in 2mos then fwup 02/22/2013 Appointment: Jessica Gee WPtel: [address] [place], [place] [phone] 02/21 work FOLLOW UP 02/22/2013 Patient Education: Patient Medication Summary Completed 02/22/2013 Visit Plan: Start Metformin Start Accuch ecks daily alternating times Will go for dilated eye exam once BS more stabilized Diabetic foot care discussed Diabetic diet info given 01/11/2013 Appointment: Jessica Gee WPtel: [address] [place], [place] [phone] FOLLOW UP 01/11/2013 Patient Education: Patient Medication Summary Completed 01/11/2013 Appointment: Kaitlynn Mosley WPtel: [address] [place] [address] ACUTE ILLNESS 11/03/2012 Patient Education: Patient Medication Summary Completed 11/03/2012 Appointment: Xiomara Rodriguez WPtel: [address] [place], [place] [address] ACUTE ILLNESS 05/04/2012 Patient Education: Patient Medication Summary Completed 05/04/2012 Visit Plan: pt reports that she always g ets yeast infections. Discussed that the antifungal can cause problems/increased bleeding with Coumdin. Pt. will start with probiotics and only take the Diflucan if needed. Cefdinir. 10/11/2011 Appointment: Xiomara Rodriguez WPtel: [address] [place] [address] ACUTE ILLNESS 10/11/2011 Patient Education: Patient Medication Summary Completed 10/11/2011 Appointment: Xiomara Rodriguez WPtel: [address] [place] [address] FOLLOW UP 06/23/2011 Patient Education: Patient Medication Summary Completed 06/23/2011 Visit Plan: Will prescribe an antibiotic and diflucan. Pt. reports that she frequently gets yeast infection. Discussed that she will notify if any symptoms persist. Pt. reports that her relatives have recently been hospitalized with pneumonia. 06/14/2011 Appointment: Xiomara Rodriguez WPtel: [address] [place] [address] ACUTE ILLNESS 06/14/2011 Patient Education: Patient Medication Summary Completed 06/14/2011 Visit Plan: sample of veramyst. Cefuroxi me axetil. Pt. will focus on hydration and rest. Discussed comfort measures and monitoring for worsening symptoms. 12/02/2010 Appointment: Xiomara Rodriguez WPtel: [address] [place] [address] ACUTE ILLNESS 12/02/2010 Patient Education: Patient Medication Summary Completed 12/02/2010 Visit Plan: Change HCTZ to spironolacton e will start zocor in 1 mo BP med in 1mo 11/12/2010 Appointment: Jessica Gee WPtel: [address] [place] [address] FOLLOW UP 11/12/2010 Patient Education: Patient Medication Summary Completed 11/12/2010 Appointment: Jessica Gee WPtel: [address] [place] [address] BP CHECK 10/26/2010 Patient Education: Patient Medication Summary Completed 10/26/2010 Visit Plan: Continue Toprol at bedtime A dd HCTZ in AM BP check in 2wks Fasting lab with next PT/INR 10/13/2010 Appointment: Jessica Gee WPtel: [address] [place] [address] FOLLOW UP 10/13/2010 Patient Education: Patient Medication Summary Completed 10/13/2010 Visit Plan: Cont abx. Fwup with surgery as scheduled 06/24/2010 Appointment: Jessica Gee WPtel: [address] [place] [address] Hospital Follow Up 06/24/2010 Patient Education: Patient Medication Summary Completed 06/24/2010 Appointment: Jessica Gee WPtel: [address] [place] [address] Hospital Follow Up 06/22/2010 Visit Plan: pt [...] subside. 06/08/2010 Appointment: Xiomara Rodriguez WPtel: [address] [place] [address] ACUTE ILLNESS 06/08/2010 Patient Education: Patient Medication Summary Completed 06/08/2010 Appointment: Xiomara Rodriguez WPtel: [address] [place] [address] FOLLOW UP 06/01/2010 Appointment: Jessica Gee WPtel: [address] [place] [address] 05/29/2010 Patient Education: Patient Medication Summary Completed 05/29/2010 Appointment: Xiomara Rodriguez WPtel: [address] [place] [address] ACUTE ILLNESS 05/20/2010 Patient Education: Patient Medication Summary Completed 05/20/2010 Appointment: Jessica Gee WPtel: [address] [place] [address] BP CHECK 05/13/2010 Patient Education: Patient Medication Summary Completed 05/13/2010 Visit Plan: Increase Lisinopril hct to 2 0/12.5mg q AM Use atarax prn and routinely at bedtime and Medrol dose pack BP check in 3wks Pt defers stress test at this time 04/30/2010 Appointment: Jessica Gee WPtel: [address] [place] [address] ACUTE ILLNESS 04/30/2010 Patient Education: Patient Medication Summary Completed 04/30/2010 Appointment: Jessica Gee WPtel: [address] [place] [address] BP CHECK 02/27/2010 Patient Education: Patient Medication Summary Completed 02/27/2010 Visit Plan: Cont Toprol Add Altace 10mg QD Cont Wellbutrin Will likely add SSRI after BP stable BP check in 2wks 01/22/2010 Appointment: Jessica Gee WPtel: [address] [place] [address] ACUTE ILLNESS 01/22/2010 Patient Education: Patient Medication Summary Completed 01/22/2010 Referral: Rupa Raines WPtel: [address] [id number] [place] Referral Completed Referral: Neymar Alberts WPtel: [address] [address] [place] Referral Initiated Instructions Comment . Tick [...]
--- OUTSIDE RECORDS SUMMARY | 2019-09-10 03:18 | XMS REPORT | CCD ---
Author Author Nava Gee D.O. 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 Name Role Phone Jessica Gee D.O., PP Unavailable CCM Unavailable Summary Purpose Interface Exchange Insurance Providers Payer name Policy type / Coverage type Covered alliance party ID Effective Begin Date Effective End Date Blue Cross Blue Shield Blue Cross/Blue Shield [id number] Unknown Family History Family History data not found Social History Social History Element Codes Description Effective Dates Tobacco history SNOMED CT: 528899597 Never smoker 10/13/2010 Allergies, Adverse Reactions, Alerts [...] findings ICD-9: V70.0 ICD-10: Z00.00 12/16/2017 Active [facility] (current) use of anticoagulants ICD-9: V58.6 1 [...] Fill Instructions Coumadin 5 mg tablet RxNorm: 537053 TAKE 1 TABLET BY MOUTH ONCE DAILY 02/28/2019 No Stop Date Active metformin ER 500 mg tablet,extended release 24 hr RxNorm: 86 0975 1 Tablet(s) PO BID 02/19/2019 03/20/2019 Active omeprazole 40 mg capsule,delayed release RxNorm: 317918 TAKE 1 CAPSULE BY MOUTH TWICE DAILY 02/19/2019 No Stop Date Active metformin ER 500 mg tablet,extended release 24 hr RxNorm: 86 0975 1 Tablet(s) PO BID 01/15/2019 02/13/2019 Inactive alprazolam 0.25 mg tablet RxNorm: 947582 1 Tablet(s) Oral prior to flight 01/03/2019 No Stop Date Active omeprazole 40 mg capsule,delayed release RxNorm: 644236 TAKE 1 CAPSULE BY MOUTH TWICE DAILY 12/20/2018 02/18/2019 Inactive pravastatin 40 mg tablet RxNorm: 526291 TAKE 1 TABLET BY MOUTH ONCE DAILY 12/11/2018 No Stop Date Active metformin ER 500 mg tablet,extended release 24 hr RxNorm: 86 0975 1 Tablet(s) PO BID 12/11/2018 01/09/2019 Inactive Coumadin 5 mg tablet RxNorm: 105313 1 Tablet(s) PO QD 11/27/201809/2018 Inactive warfarin 1 mg tablet RxNorm: 477545 TAKE 1 TABLET BY MO [facility] ONCE DAILY. TAKE AN ADDITIONAL TABLET ON TUESDAY AND Tuesday10/02/2018 No Stop Date Active metformin ER 500 mg tablet,extended release 24 hr RxNorm: 86 0975 1 Tablet(s) PO BID 10/02/2018 11/30/2018 Inactive warfarin 5 mg tablet RxNorm: 718185 1 Tablet(s) PO QD 09/27/201810/2018 Inactive Bactrim DS 800 mg-160 mg tablet RxNorm: 763066 1 Tablet(s) PO BID 0 09/27/2018 10/03/2018 Inactive Toprol XL 200 mg tablet,extended release RxNorm: 652315 1 Table t(s) PO QD 09/18/2018 03/16/2019 Active omeprazole 40 mg capsule,delayed release RxNorm: 755481 TAKE 1 CAPSULE BY MOUTH TWICE DAILY 09/11/2018 12/19/2018 Inactive Coumadin 5 mg tablet RxNorm: 152276 1 Tablet(s) PO QD 08/21/201811/2018 Inactive metformin ER 500 mg tablet,extended release 24 hr RxNorm: 86 0975 1 Tablet(s) PO BID 07/31/2018 09/28/2018 Inactive omeprazole 40 mg capsule,delayed release RxNorm: 999400 TAKE 1 CAPSULE BY MOUTH TWICE DAILY 06/27/2018 09/10/2018 Inactive metformin ER 500 mg tablet,extended release 24 hr RxNorm: 86 0975 Tablet(s) 1 Tablet(s) PO BID 06/27/2018 07/31/2018 Inactive Toprol XL 200 mg tablet,extended release RxNorm: 557123 1 Table t(s) PO QD 06/14/2018 09/17/2018 Inactive Coumadin 5 mg tablet RxNorm: 427143 1 Tablet(s) PO QD 06/14/201804/2018 Inactive metformin ER 500 mg tablet,extended release 24 hr RxNorm: 86 0975 Tablet(s) 1 Tablet(s) PO BID 05/22/2018 06/26/2018 Inactive Coumadin 5 mg tablet RxNorm: 426160 TAKE 1 TABLET BY MOUTH ONCE DAILY 05/11/2018 06/14/2018 Inactive Lovenox 40 mg/0.4 mL subcutaneous syringe RxNorm: 882327 40 Mil ligram(s) SQ QD 05/05/2018 09/26/2018 Inactive amitriptyline 25 mg tablet RxNorm: 361227 1 Tablet(s) PO QHS fo r sleep/HAs 04/24/2018 10/20/2018 Inactive OneTouch Ultra Test strips RxNorm: Test blood sugar sigrid y (Dx:E11.65) 04/24/2018 No Stop Date Active celecoxib 200 mg capsule RxNorm: 214514 1 Capsule(s) PO BID 019 10/20/2018 Inactive Celebrex 200 mg capsule RxNorm: 381639 TAKE 1 CAPSULE BY MOUTH ONCE DAILY 04/19/2018 04/23/2018 Inactive warfarin 1 mg tablet RxNorm: 072779 1 Tablet(s) PO QD a nd additional tablet on Tue & Th04/14/2018 10/01/2018 Inactive Toprol XL 200 mg tablet,extended release RxNorm: 749507 TAKE 1 TABLET BY MOUTH ONCE DAILY 04/11/2018 06/14/2018 Inactive metformin ER 500 mg tablet,extended release 24 hr RxNorm: 86 0975 Tablet(s) 1 Tablet(s) PO BID 03/17/2018 05/21/2018 Inactive Coumadin 5 mg tablet RxNorm: 776821 TAKE 1 TABLET BY MOUTH ONCE DAILY 03/15/2018 05/10/2018 Inactive Lovenox 40 mg/0.4 mL subcutaneous syringe RxNorm: 832658 40 Mil ligram(s) SQ QD 01/27/2018 04/11/2018 Inactive omeprazole 40 mg capsule,delayed release RxNorm: 240609 TAKE 1 CAPSULE BY MOUTH TWICE DAILY 01/23/2018 06/26/2018 Inactive pravastatin 40 mg tablet RxNorm: 863764 TAKE 1 TABLET BY MOUTH ONCE DAILY 01/23/2018 12/10/2018 Inactive metformin ER 500 mg tablet,extended release 24 hr RxNorm: 86 0975 Tablet(s) 1 Tablet(s) PO BID 01/16/2018 01/15/2018 Inactive Toprol XL 200 mg tablet,extended release RxNorm: 157193 TAKE 1 TABLET BY MOUTH ONCE DAILY 01/16/2018 04/10/2018 Inactive Coumadin 5 mg tablet RxNorm: 533136 TAKE 1 TABLET BY MOUTH ONCE DAILY 01/06/2018 03/14/2018 Inactive Celebrex 200 mg capsule RxNorm: 662700 1 Capsule(s) PO BID 12/28/19 18 03/26/2018 Inactive metformin ER 500 mg tablet,extended release 24 hr RxNorm: 86 0975 1 Tablet(s) PO BID Needs APPT 12/21/2017 01/16/2018 Inactive omeprazole 40 mg capsule,delayed release RxNorm: 257515 TAKE 1 CAPSULE BY MOUTH TWICE DAILY 11/02/2017 01/22/2018 Inactive Celebrex 200 mg capsule RxNorm: 843427 1 Capsule(s) PO QD 11/01/2017 12/26/2017 Inactive Coumadin 5 mg tablet RxNorm: 193144 Tablet(s) TAKE ONE TABLET BY MOUTH ONCE DAILY. 10/31/2017 12/29/2017 Inactive warfarin 1 mg tablet RxNorm: 434097 1 Tablet(s) PO QD 10/31/201703/22 Inactive spironolactone 25 mg tablet RxNorm: 494812 TAKE TWO TAB LETS BY MOUTH IN THE MORNING 10/31/2017 04/23/2018 Inactive metformin ER 500 mg tablet,extended release 24 hr RxNorm: 86 0975 1 Tablet(s) PO BID Needs updated fasting lab 10/20/2017 12/21/2017 Inactive Medrol (Dale) 4 mg tablets in a dose pack RxNorm: 327824 Tablet(s) PO take as directed 10/12/2017 12/15/2017 Inactive Celebrex 200 mg capsule RxNorm: 306846 1 Capsule(s) PO QD 10/03/2017 10/02/2017 Inactive spironolactone 25 mg tablet RxNorm: 011682 TAKE TWO TAB LETS BY MOUTH IN THE MORNING 09/19/2017 10/30/2017 Inactive Zithromax Z-Dale 250 mg tablet RxNorm: 068946 Tablet(s) PO take as directed 09/16/2017 10/11/2017 Inactive Medrol (Dale) 4 mg tablets in a dose pack RxNorm: 736420 Tablet(s) take as directed PO 09/16/2017 10/11/2017 Inactive doxycycline hyclate 100 mg tablet RxNorm: 6202949 1 Tablet(s) PO BI D 09/16/2017 09/15/2017 Inactive doxycycline hyclate 100 mg tablet RxNorm: 7253382 1 Tablet(s) PO BI D 09/16/2017 09/25/2017 Inactive Tessalon Perles 100 mg capsule RxNorm: 927501 1 Capsule(s) PO T ID as needed 09/16/2017 12/15/2017 Inactive warfarin 1 mg tablet RxNorm: 377077 1 Tablet(s) PO QD 09/06/201710/19 Inactive Coumadin 5 mg tablet RxNorm: 031908 Tablet(s) TAKE ONE TABLET BY MOUTH ONCE DAILY. 09/06/2017 10/31/2017 Inactive Toprol XL 200 mg tablet,extended release RxNorm: 924246 1 Table t(s) PO QD 2017 01/02/2018 Inactive warfarin 1 mg tablet RxNorm: 022098 1 Tablet(s) PO QD DUE FOR L ABS AUGUST 12 08/29/2017 09/06/2017 Inactive Coumadin 5 mg tablet RxNorm: 894405 Tablet(s) TAKE ONE TABLET BY MOUTH ONCE DAILY. DUE FOR PT/INR AUGUST 12 08/29/2017 09/06/2017 Inactive Coumadin 5 mg tablet RxNorm: 399620 Tablet(s) TAKE ONE TABLET BY MOUTH ONCE DAILY. DUE FOR PT/INR AUGUST 12 08/01/2017 08/29/2017 Inactive warfarin 1 mg tablet RxNorm: 936200 1 Tablet(s) PO QD DUE FOR L ABS AUGUST 12 08/01/2017 08/29/2017 Inactive scopolamine 1 mg over 3 days transdermal patch RxNorm: 82445 2 1 TD take off in 72 hours. 08/01/2017 12/26/2017 Inactive pravastatin 40 mg tablet RxNorm: 365897 Tablet(s) TAKE ONE TABLET BY MOUTH ONCE DAILY 07/07/2017 01/02/2018 Inactive Coumadin 5 mg tablet RxNorm: 216361 Tablet(s) TAKE ONE TABLET BY MOUTH ONCE DAILY. DUE FOR PT/INR. 06/29/2017 08/01/2017 Inactive warfarin 1 mg tablet RxNorm: 833594 1 Tablet(s) PO QD 06/29/201707/19 Inactive Coumadin 5 mg tablet RxNorm: 873856 TAKE ONE TABLET BY MOUTH ONCE DAILY. DUE FOR PT/INR. 05/30/2017 06/29/2017 Inactive omeprazole 40 mg capsule,delayed release RxNorm: 041482 1 Capsu le(s) PO BID 05/30/2017 08/27/2017 Inactive Celebrex 200 mg capsule RxNorm: 697880 1 Capsule(s) PO QD 05/23/2017 10/03/2017 Inactive metformin ER 500 mg tablet,extended release 24 hr RxNorm: 86 0975 TAKE ONE TABLET BY MOUTH TWICE DAILY 05/20/2017 10/20/2017 Inactive Coumadin 5 mg tablet RxNorm: 754557 1 Tablet(s) PO QD due for PT/IN R 04/25/2017 05/24/2017 Inactive warfarin 1 mg tablet RxNorm: 407196 1 Tablet(s) PO QD due for l abs this week 03/16/2017 06/29/2017 Inactive omeprazole 40 mg capsule,delayed release RxNorm: 931787 1 Capsu le(s) PO BID 03/16/2017 05/30/2017 Inactive Celebrex 200 mg capsule RxNorm: 174366 1 Capsule(s) PO BID as n eeded for pain 03/16/2017 05/22/2017 Inactive Coumadin 5 mg tablet RxNorm: 097029 1 Tablet(s) PO QD due for PT/IN R 03/16/2017 04/14/2017 Inactive Celebrex 200 mg capsule RxNorm: 945295 1 Capsule(s) PO BID as n eeded for pain 02/09/2017 03/15/2017 Inactive Toprol XL 200 mg tablet,extended release RxNorm: 108269 1 Table t(s) PO QD 02/08/2017 2017 Inactive Celebrex 200 mg capsule RxNorm: 231475 1 Capsule(s) PO BID as n eeded for pain 01/14/2017 02/08/2017 Inactive omeprazole 40 mg capsule,delayed release RxNorm: 642850 1 Capsu le(s) PO BID 01/12/2017 03/16/2017 Inactive Coumadin 5 mg tablet RxNorm: 981295 1 Tablet(s) PO QD 12/15/201602/19 Inactive warfarin 1 mg tablet RxNorm: 632819 1 Tablet(s) PO QD 12/15/201602/19 Inactive metformin ER 500 mg tablet,extended release 24 hr RxNorm: 86 0975 Tablet(s) TAKE ONE TABLET BY MOUTH TWICE DAILY 11/29/2016 02/26/2017 Inactive omeprazole 40 mg capsule,delayed release RxNorm: 775209 1 Capsu le(s) PO BID 11/29/2016 12/28/2016 Inactive pravastatin 40 mg tablet RxNorm: 878591 Tablet(s) TAKE ONE TABLET BY MOUTH ONCE DAILY 11/19/2016 07/07/2017 Inactive omeprazole 40 mg capsule,delayed release RxNorm: 219214 1 Capsu le(s) PO BID 10/19/2016 10/18/2016 Inactive omeprazole 40 mg capsule,delayed release RxNorm: 552282 1 Capsu le(s) PO BID 10/19/2016 11/17/2016 Inactive pantoprazole 40 mg tablet,delayed release RxNorm: 408410 1 Tabl et(s) PO QD 09/30/2016 10/18/2016 Inactive pantoprazole 40 mg tablet,delayed release RxNorm: 880921 1 Tabl et(s) PO QD 09/30/2016 09/29/2016 Inactive Zofran ODT 4 mg disintegrating tablet RxNorm: 740028 1 Tablet(s) PO Q4H as needed for nausea 09/15/2016 01/02/2017 Inactive Coumadin 5 mg tablet RxNorm: 912145 1 Tablet(s) PO QD 09/14/201611/20 Inactive warfarin 1 mg tablet RxNorm: 824175 1 Tablet(s) PO QD 09/14/201611/20 Inactive spironolactone 25 mg tablet RxNorm: 711000 2 Tablet(s) PO QAM 09/0301/02/2017 Inactive Wellbutrin XL 300 mg 24 hr tablet, extended release RxNorm: 800571 TAKE ONE TABLET BY MOUTH ONCE DAILY 08/26/2016 12/26/2017 Inactive Toprol XL 200 mg tablet,extended release RxNorm: 332908 1 Table t(s) PO QD 07/28/2016 02/08/2017 Inactive metformin ER 500 mg tablet,extended release 24 hr RxNorm: 86 0975 Tablet(s) TAKE ONE TABLET BY MOUTH TWICE DAILY 07/15/2016 11/29/2016 Inactive cyclobenzaprine 5 mg tablet RxNorm: 361608 1 Tablet(s) PO QHS f or spasm 07/08/2016 08/06/2016 Inactive Celebrex 200 mg capsule RxNorm: 1 Capsule(s) PO BID 07/08/2016 Inactive spironolactone 25 mg tablet RxNorm: 250347 1 Tablet(s) PO QAM 07/0609/02/2016 Inactive Wellbutrin XL 300 mg 24 hr tablet, extended release RxNorm: 231532 TAKE ONE TABLET BY MOUTH ONCE DAILY 06/15/2016 07/14/2016 Inactive Coumadin 5 mg tablet RxNorm: 111055 1 Tablet(s) PO QD 06/08/201608/20 Inactive warfarin 1 mg tablet RxNorm: 896592 1 Tablet(s) PO QD 06/08/201608/20 Inactive Toprol XL 200 mg tablet,extended release RxNorm: 933166 TAKE ONE TABLET BY MOUTH ONCE DAILY 04/26/2016 07/28/2016 Inactive pravastatin 40 mg tablet RxNorm: 551522 TAKE ONE TABLET BY MOUT H ONCE DAILY 04/19/2016 10/15/2016 Inactive Coumadin 5 mg tablet RxNorm: 811608 1 Tablet(s) PO QD 03/09/201605/19 Inactive warfarin 1 mg tablet RxNorm: 613523 1 Tablet(s) PO QD 03/09/201605/19 Inactive metformin ER 500 mg tablet,extended release 24 hr RxNorm: 86 0975 TAKE ONE TABLET BY MOUTH TWICE DAILY 02/25/2016 07/15/2016 Inactive spironolactone 25 mg tablet RxNorm: 940836 TAKE ONE TAB LET BY MOUTH ONCE DAILY IN THE MORNING 02/25/2016 07/06/2016 Inactive prednisone 20 mg tablet RxNorm: 951977 1 Tablet(s) PO QAM 02/16/2016 02/20/2016 Inactive cefdinir 300 mg capsule RxNorm: 675380 2 Capsule(s) PO QD 02/16/2016 02/25/2016 Inactive Toprol XL 200 mg tablet,extended release RxNorm: 669046 TAKE ONE TABLET BY MOUTH ONCE DAILY 01/26/2016 04/24/2016 Inactive Aciphex 20 mg tablet,delayed release RxNorm: 729626 1 Tablet(s) PO BID 12/24/2015 09/29/2016 Inactive Omeprazole and Pepci d have not helped. Coumadin 5 mg tablet RxNorm: 413160 1 Tablet(s) PO QD 12/10/201502/19 Inactive Coumadin 5 mg tablet RxNorm: 010851 1 Tablet(s) PO QD 12/08/201511/20 Inactive Toprol XL 200 mg tablet,extended release RxNorm: 245412 TAKE ONE TABLET BY MOUTH ONCE DAILY 11/20/2015 01/18/2016 Inactive warfarin 1 mg tablet RxNorm: 793552 1 Tablet(s) PO QD 11/03/201502/19 Inactive pravastatin 40 mg tablet RxNorm: 220940 Tablet(s) TAKE ONE TABLET BY MOUTH ONCE DAILY 10/20/2015 01/17/2016 Inactive pravastatin 40 mg tablet RxNorm: 406547 TAKE ONE TABLET BY MOUT H ONCE DAILY 10/20/2015 10/19/2015 Inactive metformin ER 500 mg tablet,extended release 24 hr RxNorm: 86 0975 TAKE ONE TABLET BY MOUTH TWICE DAILY 10/03/2015 12/31/2015 Inactive Toprol XL 200 mg tablet,extended release RxNorm: 441846 TAKE ONE TABLET BY MOUTH ONCE DAILY 09/17/2015 11/15/2015 Inactive Coumadin 5 mg tablet RxNorm: 966898 1 Tablet(s) PO QD 09/02/201511/19 Inactive Wellbutrin XL 300 mg 24 hr tablet, extended release RxNorm: 716254 TAKE ONE TABLET BY MOUTH ONCE DAILY 08/01/2015 10/29/2015 Inactive Pepcid 20 mg tablet RxNorm: 812894 1 Tablet(s) PO BID as needed 05/24/2017 Inactive warfarin 1 mg tablet RxNorm: 403165 TAKE ONE TABLET BY MOUTH ON CE DAILY 07/08/2015 11/03/2015 Inactive pravastatin 40 mg tablet RxNorm: 887895 1 Tablet(s) PO QD 07/08/2015 10/05/2015 Inactive spironolactone 25 mg tablet RxNorm: 273222 TAKE ONE TAB LET BY MOUTH ONCE DAILY IN THE MORNING 06/13/2015 09/10/2015 Inactive Coumadin 5 mg tablet RxNorm: 217052 1 Tablet(s) PO QD 06/05/201508/19 Inactive Wellbutrin XL 300 mg 24 hr tablet, extended release RxNorm: 391088 TAKE ONE TABLET BY MOUTH ONCE DAILY 05/16/2015 09/26/2018 Inactive Wellbutrin XL 300 mg 24 hr tablet, extended release RxNorm: 204499 TAKE ONE TABLET BY MOUTH ONCE DAILY 05/16/2015 06/14/2015 Inactive metformin ER 500 mg tablet,extended release 24 hr RxNorm: 86 0975 TAKE ONE TABLET BY MOUTH TWICE DAILY 05/16/2015 08/13/2015 Inactive pravastatin 40 mg tablet RxNorm: 726003 1 Tablet(s) PO QD 04/10/2015 07/07/2015 Inactive Aciphex 20 mg tablet,delayed release RxNorm: 146307 1 Tablet(s) PO BID 03/07/2015 09/02/2015 Inactive Omeprazole and Pepci d have not helped. Toprol XL 200 mg tablet,extended release RxNorm: 111813 1 Table t(s) PO QD 03/05/2015 08/31/2015 Inactive Aciphex 20 mg tablet,delayed release RxNorm: 444310 1 Tablet(s) PO QD 03/04/2015 03/06/2015 Inactive Omeprazole and Pepci d have not helped. Coumadin 5 mg tablet RxNorm: 113044 1 Tablet(s) PO QD 02/28/201511/2015 Inactive Aciphex 20 mg tablet,delayed release RxNorm: 463463 1 Tablet(s) PO BID 02/11/2015 03/03/2015 Inactive Omeprazole and Pepci d have not helped. metformin ER 500 mg tablet,extended release 24 hr RxNorm: 86 0975 1 Tablet(s) PO BID 01/10/2015 04/09/2015 Inactive pravastatin 40 mg tablet RxNorm: 005540 1 Tablet(s) PO QD 01/06/2015 04/05/2015 Inactive Wellbutrin XL 300 mg 24 hr tablet, extended release RxNorm: 009275 TAKE ONE TABLET BY MOUTH ONCE DAILY 12/19/2014 02/16/2015 Inactive amoxicillin 500 mg capsule RxNorm: 889591 2 Capsule(s) PO BID 12/0612/15/2014 Inactive Flonase 50 mcg/actuation nasal spray,suspension RxNorm: 8963 23 2 [place] each nostril NASAL QD 12/06/2014 03/05/2015 Inactive Coumadin 5 mg tablet RxNorm: 498104 1 Tablet(s) PO QD 11/28/201410/2014 Inactive spironolactone 25 mg tablet RxNorm: 942412 1 Tablet(s) PO QAM 11/2602/23/2015 Inactive Coumadin 5 mg tablet RxNorm: 026152 1 Tablet(s) PO QD 1 Tablet(s) PO QD- NEED TO CHECK LABS 10/30/2014 11/28/2014 Inactive warfarin 1 mg tablet RxNorm: 088960 1 Tablet(s) PO QD 10/30/201409/2015 Inactive Aciphex 20 mg tablet,delayed release RxNorm: 154825 1 Tablet(s) PO QD 10/02/2014 02/10/2015 Inactive Omeprazole and Pepci d have not helped. Coumadin 5 mg tablet RxNorm: 996123 1 Tablet(s) PO QD 1 Tablet(s) PO QD- NEED TO CHECK LABS 09/30/2014 10/30/2014 Inactive pravastatin 40 mg tablet RxNorm: 453443 1 Tablet(s) PO QD 09/25/2014 01/06/2015 Inactive warfarin 1 mg tablet RxNorm: 498330 1 Tablet(s) PO QD T [place] ONE TABLET BY MOUTH DIRECTED ON MON AND THUR 08/28/2014 10/29/2014 Inactive metformin ER 500 mg tablet,extended release 24 hr RxNorm: 86 0975 1 Tablet(s) PO BID 08/28/2014 01/10/2015 Inactive amoxicillin 875 mg tablet RxNorm: 442537 1 Tablet(s) PO BID 015 08/18/2014 Inactive Toprol XL 200 mg tablet,extended release RxNorm: 898898 TAKE ONE TABLET BY MOUTH ONCE DAILY 07/22/2014 03/05/2015 Inactive Coumadin 5 mg tablet RxNorm: 133863 1 Tablet(s) PO QD 07/01/201409/18 Inactive amoxicillin 875 mg tablet RxNorm: 368000 1 Tablet(s) PO BID 015 06/30/2014 Inactive pravastatin 40 mg tablet RxNorm: 181874 1 Tablet(s) PO QD needs fasting labs 06/19/2014 09/25/2014 Inactive Coumadin 5 mg tablet RxNorm: 352002 1 Tablet(s) PO QD 1 Tablet(s) PO QD TAKE ONE TABLET BY MOUTH ONCE DAILY-need labs 05/28/2014 07/01/2014 Inactive warfarin 1 mg tablet RxNorm: 119499 1 Tablet(s) PO As Directed 05/1908/28/2014 Inactive pravastatin 40 mg tablet RxNorm: 538288 1 Tablet(s) PO QD needs fasting labs 05/14/2014 06/19/2014 Inactive metformin ER 500 mg tablet,extended release 24 hr RxNorm: 86 0975 1 Tablet(s) PO BID 04/25/2014 08/28/2014 Inactive spironolactone 25 mg tablet RxNorm: 686382 1 Tablet(s) PO QAM 04/2511/26/2014 Inactive Coumadin 5 mg tablet RxNorm: 798311 1 Tablet(s) PO QD 1 Tablet(s) PO QD TAKE ONE TABLET BY MOUTH ONCE DAILY 04/23/2014 05/28/2014 Inactive Coumadin 5 mg tablet RxNorm: 534939 1 Tablet(s) PO QD 1 Tablet(s) PO QD TAKE ONE TABLET BY MOUTH ONCE DAILY 03/22/2014 04/20/2014 Inactive Tessalon Perles 100 mg capsule RxNorm: 228240 1 Capsule(s) PO TID 0 03/22/2014 03/28/2014 Inactive cefdinir 300 mg capsule RxNorm: 602516 2 Capsule(s) PO QD 03/22/2014 03/31/2014 Inactive Medrol (Dale) 4 mg tablets in a dose pack RxNorm: 668424 Tablet(s) PO as directed 03/05/2014 08/08/2014 Inactive Coumadin 5 mg tablet RxNorm: 193872 1 Tablet(s) PO QD 1 Tablet(s) PO QD TAKE ONE TABLET BY MOUTH ONCE DAILY 02/19/2014 03/20/2014 Inactive pravastatin 40 mg tablet RxNorm: 843977 1 Tablet(s) PO QD 02/04/2014 05/14/2014 Inactive Coumadin 5 mg tablet RxNorm: 604112 1 Tablet(s) PO QD T [place] ONE TABLET BY MOUTH ONCE DAILY 01/21/2014 02/19/2014 Inactive Medrol (Dale) 4 mg tablets in a dose pack RxNorm: 979992 Tablet(s) PO as directed 01/18/2014 03/04/2014 Inactive cefdinir 300 mg capsule RxNorm: 886493 2 Capsule(s) PO QD 01/16/2014 01/25/2014 Inactive metformin ER 500 mg tablet,extended release 24 hr RxNorm: 86 0975 1 Tablet(s) PO BID 12/17/2013 04/25/2014 Inactive Wellbutrin SR 150 mg tablet,sustained-release RxNorm: 900963 1 Tablet(s) PO BID 11/30/2013 02/27/2014 Inactive spironolactone 25 mg tablet RxNorm: 334900 1 Tablet(s) PO QAM 10/2204/25/2014 Inactive Macrobid 100 mg capsule RxNorm: 563736 1 Capsule(s) PO BID 10/20/19 14 10/25/2013 Inactive Macrobid 100 mg capsule RxNorm: 311095 1 Capsule(s) PO BID 10/20/19 14 10/18/2013 Inactive Toprol XL 100 mg tablet,extended release RxNorm: 633803 1 Table t(s) PO QD 10/15/2013 01/15/2014 Inactive Toprol XL 200 mg tablet,extended release RxNorm: 769712 1 Table t(s) PO QD 10/02/2013 07/22/2014 Inactive Wellbutrin XL 300 mg 24 hr tablet, extended release RxNorm: 305201 1 Tablet(s) PO QD 09/28/2013 12/19/2014 Inactive Aciphex 20 mg tablet,delayed release RxNorm: 169718 1 Tablet(s) PO QD 08/29/2013 10/02/2014 Inactive Omeprazole and Pepci d have not helped. Coumadin 5 mg tablet RxNorm: 232359 1 Tablet(s) PO QD 08/14/201307/20 Inactive Coumadin 5 mg tablet RxNorm: 783895 1 Tablet(s) PO QD 08/14/201305/2013 Inactive pravastatin 40 mg tablet RxNorm: 480660 1 Tablet(s) PO QD 07/24/2013 02/04/2014 Inactive warfarin 1 mg tablet RxNorm: 383983 1 Tablet(s) PO QD T [place] ONE TABLET BY MOUTH DIRECTED ON MON AND THUR 07/09/2013 05/28/2014 Inactive warfarin 5 mg tablet RxNorm: 140628 1 Tablet(s) PO QD T [place] ONE TABLET BY MOUTH EVERY DAY 06/08/2013 07/07/2013 Inactive spironolactone 25 mg tablet RxNorm: 514694 1 Tablet(s) PO QAM 05/3010/15/2013 Inactive clindamycin 300 mg capsule RxNorm: 711996 2 Capsule(s) PO TID 04/1704/30/2013 Inactive warfarin 5 mg tablet RxNorm: 917477 1 Tablet(s) PO QD 03/12/201305/20 Inactive azithromycin 250 mg tablet RxNorm: 898866 2 Tablet(s) PO QD 013 03/07/2013 Inactive metformin ER 500 mg tablet,extended release 24 hr RxNorm: 86 0975 1 Tablet(s) PO BID 02/22/2013 12/17/2013 Inactive spironolactone 25 mg tablet RxNorm: 683541 1 Tablet(s) PO QAM 01/2205/30/2013 Inactive metformin ER 500 mg tablet,extended release 24 hr RxNorm: 86 0977 1 Tablet(s) PO BID 01/11/2013 02/21/2013 Inactive pravastatin 40 mg tablet RxNorm: 908494 1 Tablet(s) PO QD 01/11/2013 07/24/2013 Inactive warfarin 5 mg tablet RxNorm: 357612 1 Tablet(s) PO QD 01/04/201302/19 Inactive warfarin 1 mg tablet RxNorm: 956640 Tablet(s) PO TAKE O NE TABLET BY MOUTH DIRECTED ON MON AND THUR 12/14/2012 07/08/2013 Inactive scopolamine 1.5 mg 72 hr Transderm Patch RxNorm: 937637 TD Apply 1 patch behind ear every 72 hours, replace after 3 days. 11/08/2012 01/15/2014 Inacti ve Pepcid 20 mg tablet RxNorm: 029736 1 Tablet(s) PO BID as needed 01/31/2013 Inactive Famvir 500 mg tablet RxNorm: 011061 1 Tablet(s) PO Q8H 11/03/2012 Inactive Aciphex 20 mg tablet,delayed release RxNorm: 199316 1 Tablet(s) PO QD 11/03/2012 05/01/2013 Inactive Omeprazole and Pepci d have not helped. gabapentin 300 mg capsule RxNorm: 757135 Capsule(s) PO TID 11/04/19 13 01/15/2014 Inactive warfarin 5 mg tablet RxNorm: 021879 1 Tablet(s) PO QD 11/02/201212/19 Inactive Wellbutrin XL 300 mg 24 hr tablet, extended release RxNorm: 861048 1 Tablet(s) PO QD 10/17/2012 04/30/2013 Inactive pravastatin 40 mg tablet RxNorm: 454336 Tablet(s) PO TA KE ONE TABLET BY MOUTH EVERY DAY. NEED FASTING LABS 09/18/2012 01/10/2013 Inactive Toprol XL 200 mg tablet,extended release RxNorm: 422292 Tablet(s) PO TAKE ONE TABLET BY MOUTH EVERY DAY 09/08/2012 10/01/2013 Inactive warfarin 5 mg tablet RxNorm: 012873 1 Tablet(s) PO QD 08/31/201210/19 Inactive pravastatin 40 mg tablet RxNorm: 652499 1 Tablet(s) PO QD Needs fasting labs 08/18/2012 09/16/2012 Inactive TAKE ONE TABLET BY M OUTH EVERY DAY warfarin 1 mg tablet RxNorm: 633087 1 Tablet(s) PO As directed on Mon and Thurs 08/11/2012 12/13/2012 Inactive spironolactone 25 mg tablet RxNorm: 326041 1 Tablet(s) PO QAM 07/1110/08/2012 Inactive warfarin 5 mg tablet RxNorm: 776500 1 Tablet(s) PO QD 07/03/201208/19 Inactive Diflucan 100 mg tablet RxNorm: 571106 1 Tablet(s) PO QD 05/04/2012 Inactive Cipro 500 mg tablet RxNorm: 936204 1 Tablet(s) PO BID 05/04/201204/22 Inactive Aciphex 20 mg tablet,delayed release RxNorm: 316930 1 Tablet(s) PO QD 05/04/2012 07/02/2012 Inactive Omeprazole and Pepci d have not helped. warfarin 5 mg tablet RxNorm: 303267 1 Tablet(s) PO QD 05/02/201206/19 Inactive warfarin 5 mg tablet RxNorm: 371137 1 Tablet(s) PO QD 03/02/201204/21 Inactive Toprol XL 200 mg tablet,extended release RxNorm: 784414 1 Table t(s) PO QD 03/02/2012 05/30/2012 Inactive spironolactone 25 mg tablet RxNorm: 516747 1 Tablet(s) PO QAM 02/0707/11/2012 Inactive pravastatin 40 mg tablet RxNorm: 192487 Tablet(s) PO 01/31/201208/17 Inactive TAKE ONE TABLET BY MOUTH EVERY DAY pravastatin 40 mg tablet RxNorm: 471246 1 Tablet(s) PO QD 01/31/2012 08/18/2012 Inactive omeprazole 40 mg capsule,delayed release RxNorm: 452434 1 Capsule(s) PO QD for stomach 01/11/2012 11/02/2012 Inactive for stomach warfarin 5 mg tablet RxNorm: 666937 1 Tablet(s) PO QD 01/03/201202/18 Inactive warfarin 5 mg tablet RxNorm: 964685 1 Tablet(s) PO QD 12/03/201112/19 Inactive pravastatin 40 mg tablet RxNorm: 704723 1 Tablet(s) PO QD 11/25/2011 01/23/2012 Inactive cefdinir 300 mg Cap RxNorm: 031599 1 Capsule(s) PO BID 10/11/201103/2011 Inactive Culturelle 10 billion cell Cap RxNorm: 489187 1 Capsule(s) PO BID 0 10/11/2011 11/09/2011 Inactive Diflucan 100 mg Tab RxNorm: 920641 1 Tablet(s) PO QD 10/11/201110/19 Inactive Wellbutrin XL 300 mg 24 hr tablet, extended release RxNorm: 737077 1 Tablet(s) PO QD 09/14/2011 10/17/2012 Inactive pravastatin 40 mg tablet RxNorm: 207547 1 Tablet(s) PO QD 08/25/2011 11/25/2011 Inactive Coumadin 5 mg tablet RxNorm: 316992 Tablet(s) PO Take as direct ed by doctor. 07/07/2011 12/03/2011 Inactive Singulair 10 mg Tab RxNorm: 783783 1 Tablet(s) PO QD al lergy medication. (Please try to be consistent in dosing) 06/23/2011 01/15/2014 Inactive Diflucan 100 mg Tab RxNorm: 940965 1 Tablet(s) PO QD 06/14/201107/02 Inactive cefdinir 300 mg Cap RxNorm: 507926 1 Capsule(s) PO BID 06/14/201106/2011 Inactive pravastatin 40 mg Tab RxNorm: 822381 1 Tablet(s) PO QD 05/25/201108/2011 Inactive warfarin 5 mg Tab RxNorm: 600532 Tablet(s) PO 05/25/2011 10/18/2011 In active TAKE ONE TABLET BY MOUTH EVERY DAY Toprol XL 200 mg tablet,extended release RxNorm: 385462 1 Table t(s) PO QD 03/05/2011 06/02/2011 Inactive spironolactone 25 mg tablet RxNorm: 261779 1 Tablet(s) PO QAM 02/2402/08/2012 Inactive omeprazole 40 mg capsule,delayed release RxNorm: 615319 1 Capsule(s) PO QD for stomach 01/06/2011 01/11/2012 Inactive for stomach warfarin 5 mg Tab RxNorm: 275221 1 Tablet(s) PO QD 12/17/2010 011 Inactive warfarin 5 mg Tab RxNorm: 412859 1 Tablet(s) PO QD 11/18/2010 011 Inactive spironolactone 25 mg Tab RxNorm: 275594 1 Tablet(s) PO QAM 11/13/19 11 02/24/2011 Inactive Coumadin 6 mg Tab RxNorm: 653669 1 Tablet(s) PO QD 10/28/2010 011 Inactive May have generic hydrochlorothiazide 25 mg Tab RxNorm: 181567 1 Tablet(s) PO QAM 11/11/2010 Inactive Wellbutrin XL 300 mg 24 hr Tab RxNorm: 787281 1 Tablet(s) PO QD 09/14/2011 Inactive Septra DS 800 mg-160 mg Tab RxNorm: 879434 1 Tablet(s) PO BID 06/0806/17/2010 Inactive Pyridium 100 mg Tab RxNorm: 4674373 1 Tablet(s) PO TID 06/08/2010 Inactive Wellbutrin XL 300 mg 24 hr Tab RxNorm: 943651 1 Tablet(s) PO QD 05/201007/15/2010 Inactive hydroxyzine 25 mg Tab RxNorm: 088187 1 Tablet(s) PO QID prn itching--take routinely at bedtime. (pt. may not refil at this time but later) 05/20/2010 10/10/2011 Inactive Zyrtec 10 mg Tab RxNorm: 0637735 1 Tablet(s) PO BID 05/20/20102010 Inactive Coumadin 1 mg Tab RxNorm: 008545 1 Tablet(s) PO 6mg M-F, 7mg S-S 11/16/2010 Inactive hydroxyzine 25 mg Tab RxNorm: 091393 1 Tablet(s) PO QID prn itching--take routinely at bedtime 04/30/2010 05/19/2010 Inactive Toprol XL 200 mg 24 hr Tab RxNorm: 169706 1 Tablet(s) PO QD 011 06/23/2010 Inactive lisinopril-hydrochlorothiazide 10 mg-12.5 mg Tab RxNorm: 197 885 1 Tablet(s) PO QD 04/20/2010 04/29/2010 Inactive omeprazole 40 mg Cap, Delayed Release RxNorm: 061307 1 Capsule(s) PO QD for stomach 04/20/2010 08/17/2010 Inactive lisinopril-hydrochlorothiazide 10 mg-12.5 mg Tab RxNorm: 197 885 Tablet(s) PO 1QDAM - TAKE ONE TABLET BY MOUTH EVERY DAY IN THE MORNING 03/09/2010 Inactive lisinopril-hydrochlorothiazide 10 mg-12.5 mg Tab RxNorm: 197 885 1 Tablet(s) PO QD 02/27/2010 04/20/2010 Inactive Wellbutrin XL 300 mg 24 hr Tab RxNorm: 852737 1 Tablet(s) PO QD 05/21/2010 Inactive lisinopril-hydrochlorothiazide 10 mg-12.5 mg Tab RxNorm: 197 885 1 Tablet(s) PO QD 01/28/2010 02/26/2010 Inactive omeprazole 40 mg Cap, Delayed Release RxNorm: 290537 1 Capsule(s) PO QD for stomach 01/22/2010 04/20/2010 Inactive Altace 10 mg Cap RxNorm: 920742 1 Capsule(s) PO QD for BP 01/22/2010 03/22/2010 Inactive Coumadin 6 mg Tab RxNorm: 501729 1 Tablet(s) PO QD May have generic 12/03/2009 05/01/2010 Inactive Coumadin 6 mg Tab RxNorm: 772940 1 Tablet(s) PO 12/01/2009 12/02/2009 Inactive Coumadin 1 mg Tab RxNorm: 351463 1 Tablet(s) PO QD 11/28/2009 010 Inactive Coumadin 1 mg Tab RxNorm: 731189 1 Tablet(s) PO QD 07/02/2009 010 Inactive Flexeril 10 mg tablet RxNorm: 363791 1 Tablet(s) PO TID No Start Date Active spironolactone 25 mg tablet RxNorm: 966617 1 Tablet(s) PO QAM No Star t Date Active lisinopril-hydrochlorothiazide 20 mg-12.5 mg Tab RxNorm: 197 886 2 Tablet(s) PO QAM No Start Date 10/12/2010 Inactive Zofran ODT 4 mg disintegrating tablet RxNorm: 481404 1 Tablet(s) PO Q6H as needed for nausea No Start Date 09/14/2016 Inactive Wellbutrin XL 300 mg 24 hr Tab RxNorm: 969202 1 Tablet(s) PO QD No Start Date 02/02/2010 Inactive alprazolam 0.25 mg tablet RxNorm: 416233 1 Tablet(s) PO prior t o flight No Start Date 05/24/2017 Inactive hydrocodone-acetaminophen 5 mg-500 mg Tab RxNorm: 965229 1-2 Tablet(s) PO Q4H as needed for pain No Start Date 12/02/2010 Inactive Toprol XL 100 mg 24 hr Tab RxNorm: 811630 1 Tablet(s) PO QD No Star t Date 10/14/2013 Inactive Celebrex 200 mg capsule RxNorm: 863267 1 Capsule(s) PO QD No Start Date 05/22/2017 Inactive scopolamine 1 mg over 3 days transdermal patch RxNorm: 00163 2 1 TD take off in 72 hours. No Start Date 07/31/2017 Inactive OneTouch Ultra Test strips RxNorm: Test blood sugar daily No S tart Date 04/23/2018 Inactive Medrol (Dale) 4 mg tablets in a dose pack RxNorm: 410366 Tablet(s) PO As directed No Start Date 01/15/2014 Inactive Coumadin 5 mg Tab RxNorm: 279252 1 Tablet(s) PO QD No Start Date 06/19 Inactive Pepcid 40 mg Tab RxNorm: 829610 1 Tablet(s) PO QD No Start Date 06/23 Inactive prednisone 10 mg Tab RxNorm: 643967 1 Tablet(s) PO BID No Start Date 06/23/2010 Inactive spironolactone 25 mg tablet RxNorm: 307135 1 Tablet(s) PO QAM No St art Date 09/26/2018 Inactive scopolamine 1.5 mg 72 hr Transderm Patch RxNorm: 996299 TD Apply 1 patch behind ear every 72 hours, replace after 3 days. No Start Date 11/07/2012 Inacti ve azithromycin 250 mg Tab RxNorm: 803422 Tablet(s) PO 2 t abs on day one and one tab on days 2-5. (antibiotic) No Start Date 10/10/2011 Inactive Medrol (Dale) 4 mg Tabs in a Dose Pack RxNorm: 835321 1 Tablet(s) PO as directed. (steroid pack) No Start Date 10/10/2011 Inactive Lovenox 40 mg/0.4 mL subcutaneous syringe RxNorm: 010498 40 Mil ligram(s) SQ QD No Start Date 05/04/2018 Inactive Celebrex 200 mg capsule RxNorm: 061997 1 Capsule(s) PO BID as n eeded for pain No Start Date 01/13/2017 Inactive warfarin 1 mg tablet RxNorm: 999018 1 Tablet(s) PO As directed on Tue and No Start Date 08/10/2012 Inactive cefuroxime axetil 500 mg Tab RxNorm: 720627 1 Tablet(s) PO BID No S tart Date 06/13/2011 Inactive Lovenox 40 mg/0.4 mL subcutaneous syringe RxNorm: 184988 40 Mil ligram(s) SQ QD No Start Date 01/26/2018 Inactive Coumadin 5 mg tablet RxNorm: 044896 1 Tablet(s) PO QD No Start Date 0 08/13/2013 Inactive Medrol (Dale) 4 mg tablets in a dose pack RxNorm: 058548 Tablet(s) PO as directed No Start Date 01/17/2014 Inactive Coumadin 6 mg tablet RxNorm: 310920 1 Tablet(s) PO QD No Start Date 0 06/20/2016 Inactive warfarin 5 mg tablet RxNorm: 260242 1 Tablet(s) PO QD No Start Date 0 12/02/2011 Inactive Medrol (Dale) 4 mg Tabs in a Dose Pack RxNorm: 910229 Tablet(s) PO as directed No Start Date 06/23/2010 Inactive Flonase 50 mcg/actuation nasal spray,suspension RxNorm: 8963 23 2 [place] NASAL BID No Start Date 12/05/2014 Inactive Pepcid 20 mg tablet RxNorm: 368638 1 Tablet(s) PO BID as needed No Start Date 11/02/2012 Inactive Medication Administered No Medication Administered data Immunizations No Immunization data Results Observation Observation Code Item Item Code Result Date S ervice Location MICROALBUMIN URINE RANDOM 93984 CREAT MG/D 139 MG/DL Unknown MICROALBUMIN URINE RANDOM 55285 CRE/100 1.39 G/L 12/20 Unknown Procedures Procedure Codes Date URINALYSIS NONAUTO W/O SCOPE CPT-4: 88406 09/27/2018 URINE CULTURE/ COLONY COUNT CPT-4: 44859 09/27/2018 URINALYSIS NONAUTO W/O SCOPE CPT-4: 50498 10/13/2017 URINE CULTURE/ COLONY COUNT CPT-4: 57608 10/13/2017 STREP A ASSAY W/OPTIC CPT-4: 74899 06/21/2016 STREP A ASSAY W/OPTIC CPT-4: 18088 06/24/2014 THER/PROPH/DIAG INJ SC/IM CPT-4: 64276 03/22/2014 METHYLPREDNISOLONE 40 MG INJ CPT-4: J1030 03/22/2014 TRIAMCINOLONE ACET INJ NOS CPT-4: J3301 03/22/2014 URINALYSIS NONAUTO W/O SCOPE CPT-4: 12076 10/19/2013 URINE CULTURE/ COLONY COUNT CPT-4: 98476 10/19/2013 CEFTRIAXONE SODIUM INJECTION CPT-4: J0696 03/02/2013 THER/PROPH/DIAG INJ SC/IM CPT-4: 00870 03/02/2013 CEFTRIAXONE SODIUM INJECTION CPT-4: J0696 03/01/2013 THER/PROPH/DIAG INJ SC/IM CPT-4: 49104 03/01/2013 THER/PROPH/DIAG INJ SC/IM CPT-4: 67693 03/01/2013 METHYLPREDNISOLONE 40 MG INJ CPT-4: J1030 03/01/2013 TRIAMCINOLONE ACET INJ NOS CPT-4: J3301 03/01/2013 MICROALBUMIN QUANTITATIVE CPT-4: 05138 01/11/2013 URINE CULTURE/ COLONY COUNT CPT-4: 93883 05/04/2012 URINALYSIS NONAUTO W/O SCOPE CPT-4: 90452 05/04/2012 URINE CULTURE/ COLONY COUNT CPT-4: 39913 05/29/2010 TRIAMCINOLONE ACET INJ NOS CPT-4: J3301 05/20/2010 METHYLPREDNISOLONE 40 MG INJ CPT-4: J1030 05/20/2010 THER/PROPH/DIAG INJ SC/IM CPT-4: 55220 05/20/2010 Vital Signs Date Vital 09/27/2018 Blood Pressure 1: 136/82 Code: 8480-6 Heart Rate 1: 68 bpm Respiratory Rate: 20 bpm SpO2: 96% Temperature: 36.6 (C) / 97.9 (F) We ight: 244 lbs 04/24/2018 Blood Pressure 1: 134/78 Code: 8480-6 BMI: 35.1 Code: 59238-1 Heart Rate 1: 76 bpm Height: 5'9" Respiratory Rate: 20 bpm Temperature: 36 .6 (C) / 97.8 (F) Weight: 238 lbs 12/27/2017 Blood Pressure 1: 126/64 Code: 8480-6 BMI: 34.7 Code: 19732-7 Heart Rate 1: 72 bpm Height: 5'9" Respiratory Rate: 20 bpm Temperature: 36 .8 (C) / 98.2 (F) Weight: 235 lbs 10/12/2017 Blood Pressure 1: 142/80 Code: 8480-6 BMI: 35.1 Code: 02511-1 Heart Rate 1: 98 bpm Height: 5'9" Respiratory Rate: 22 bpm SpO2: 100% Tempera ture: 36.5 (C) / 97.7 (F) Weight: 238 lbs 09/16/2017 Blood Pressure 1: 136/82 Code: 8480-6 BMI: 34.1 Code: 74758-9 Heart Rate 1: 82 bpm Height: 5'9" Respiratory Rate: 18 bpm SpO2: 96% Tempera ture: 36.3 (C) / 97.3 (F) Weight: 231 lbs 05/25/2017 Blood Pressure 1: 122/82 Code: 8480-6 BMI: 32.3 Code: 95256-0 Heart Rate 1: 116 bpm Height: 5'9" Respiratory Rate: 20 bpm SpO2: 98% Tempera ture: 35.6 (C) / 96.1 (F) Weight: 219 lbs 01/03/2017 Blood Pressure 1: 126/78 Code: 8480-6 BMI: 33.4 Code: 82763-1 Heart Rate 1: 72 bpm Height: 5'9" Respiratory Rate: 20 bpm Temperature: 36 .8 (C) / 98.2 (F) Weight: 226 lbs 09/23/2016 Blood Pressure 1: 126/82 Code: 8480-6 BMI: 33.8 Code: 64138-6 Heart Rate 1: 80 bpm Height: 5'9" Respiratory Rate: 20 bpm SpO2: 97% Tempera ture: 36.8 (C) / 98.2 (F) Weight: 229 lbs 09/03/2016 Blood Pressure 1: 188/64 Code: 8480-6 Bl ood Pressure 2: 166/92 Code: 8480-6 BMI: 34.4 Code: 88557-9 Heart Rate 1: 66 bpm Height: 5'9" Res piratory Rate: 20 bpm SpO2: 98% Temperature: 35.7 (C) / 96.2 (F) Weight: 233 lbs 07/08/2016 Blood Pressure 1: 134/82 Code: 8480-6 Heart Rate 1: 64 bpm Height: 5'9" Respiratory Rate: 20 bpm SpO2: 97% Temperature: 36.6 (C) / 97.8 (F) Weight: 06/21/2016 Blood Pressure 1: 112/68 Code: 8480-6 BMI: 33.8 Code: 29702-1 Heart Rate 1: 64 bpm Height: 5'9" Respiratory Rate: 20 bpm SpO2: 95% Tempera ture: 36.3 (C) / 97.3 (F) Weight: 229 lbs 02/23/2016 Blood Pressure 1: 128/78 Code: 8480-6 BMI: 33.4 Code: 41306-8 Heart Rate 1: 74 bpm Height: 5'9" [...] 1: 122/80 Code: 8480-6 BMI: 32.2 Code: 66153-1 Heart Rate 1: 80 bpm Height: 5'9" Respiratory Rate: 20 bpm Temperature: 37 .0 (C) / 98.6 (F) Weight: 218 lbs 08/09/2014 Blood Pressure 1: 132/84 Code: 8480-6 BMI: 33.1 Code: 20229-9 Heart Rate 1: 72 bpm Height: 5'9" Respiratory Rate: 20 bpm Temperature: 36 .7 (C) / 98.0 (F) Weight: 224 lbs 06/24/2014 Blood Pressure 1: 132/80 Code: 8480-6 BMI: 32.8 Code: 16609-7 Heart Rate 1: 68 bpm Height: 5'9" Respiratory Rate: 20 bpm Temperature: 36 .4 (C) / 97.6 (F) Weight: 222 lbs 03/22/2014 Blood Pressure 1: 128/84 Code: 8480-6 BMI: 32.5 Code: 41701-3 Heart Rate 1: 78 bpm Height: 5'9" Respiratory Rate: 22 bpm Temperature: 36 .0 (C) / 96.8 (F) Weight: 220 lbs 03/05/2014 Blood Pressure 1: 124/78 Code: 8480-6 BMI: 31.9 Code: 98580-4 Heart Rate 1: 82 bpm Height: 5'9" Respiratory Rate: 20 bpm Temperature: 35 .8 (C) / 96.4 (F) Weight: 216 lbs 01/16/2014 Blood Pressure 1: 116/68 Code: 8480-6 BMI: 33.8 Code: 43385-0 Heart Rate 1: 72 bpm Height: 5'7" Respiratory Rate: 20 bpm Temperature: 36 .6 (C) / 97.9 (F) Weight: 216 lbs 05/10/2013 Blood Pressure 1: 124/86 Code: 8480-6 BMI: 34.3 Code: 15272-2 Heart Rate 1: 84 bpm Height: 5'7" [...] 1: 116/84 Code: 8480-6 BMI: 33.1 Code: 04634-6 Heart Rate 1: 64 bpm Height: 5'9" Respiratory Rate: 20 bpm Temperature: 36 .4 (C) / 97.6 (F) Weight: 224 lbs 01/11/2013 Blood Pressure 1: 126/84 Code: 8480-6 BMI: 35.3 Code: 33392-2 Heart Rate 1: 68 bpm Height: 5'9" Respiratory Rate: 20 bpm Temperature: 36 .7 (C) / 98.1 (F) Weight: 239 lbs 11/03/2012 Blood Pressure 1: 104/70 Code: 8480-6 BMI: 34.4 Code: 97307-8 Heart Rate 1: 72 bpm Height: 5'9" Respiratory Rate: 20 bpm Temperature: 36 .8 (C) / 98.3 (F) Weight: 233 lbs 05/04/2012 Blood Pressure 1: 124 Code: 8480-6 BMI: 33.7 Code: 32321-3 Heart Rate 1: 84 bpm Height: 5'9" Temperature: 36.3 (C) / 97.3 (F) Weight: 228 lbs 10/11/2011 Blood Pressure 1: 110 Code: 8480-6 BMI: 33.7 Code: 07893-2 Heart Rate 1: 64 bpm Height: 5'9" Temperature: 36.8 (C) / 98.3 (F) Weight: 228 lbs 06/23/2011 Blood Pressure 1: 114 Code: 8480-6 BMI: 33.4 Code: 81129-3 Heart Rate 1: 80 bpm Height: 5'9" Respiratory Rate: 20 bpm Temperature: 36 .7 (C) / 98.0 (F) Weight: 226 lbs 06/14/2011 Blood Pressure 1: 118 Code: 8480-6 BMI: 33.4 Code: 25504-9 Heart Rate 1: 80 bpm Height: 5'9" [...] 1: 126/82 Code: 8480-6 BMI: 32.6 Code: 55671-1 Heart Rate 1: 68 bpm Height: 5'9" [...] 1: 140/92 Code: 8480-6 BMI: 31.3 Code: 81461-2 Heart Rate 1: 60 bpm Height: 5'10" [...] upper back on 08/13/16 while camping around [place], [place]. Patient states is tender around tick [...] 01/22/2010 Encounters Encounter Performer Location Codes Date ([id number]) OFFICE/OUTPATIENT VISIT EST Diagnosis: Gastro-esophageal reflux disease without esophagitis[ICD10: K21.9] Diagnosis: Urinary tract infection, site not specified[ICD10: N39.0] Diagnosis: Ventral hernia without obstruction or gangrene[ICD10: K43.9] Jessica GEE DO [facility] CPT-4: 91783 09/27/2018 ([id number]) OFFICE/OUTPATIENT VISIT EST Diagnosis: Essential (primary) hypertension[ICD10: I10] Diagnosis: Type 2 diabetes mellitus without complications[ICD10: E11.9] Diagnosis: Carpal tunnel syndrome, right upper limb[ICD10: G56.01] Diagnosis: Primary insomnia[ICD10: F51.01] Jessica GEE DO [facility] CPT-4: 93367 04/24/2018 ([id number]) OFFICE/OUTPATIENT VISIT EST Diagnosis: Type 2 diabetes mellitus without complications[ICD10: E11.9] Diagnosis: Mixed hyperlipidemia[ICD10: E78.2] Diagnosis: Essential (primary) hypertension[ICD10: I10] Diagnosis: Pain in unspecified joint[ICD10: M25.50] Jessica GEE DO [facility] CPT-4: 13382 12/27/2017 ([id number]) NURSE/OUTPATIENT VISIT EST Diagnosis: Hematuria, unspecified[ICD10: R31.9] Jessica Michaelaaronderek GEE [facility] CPT-4: 80313 10/13/2017 ([id number]) OFFICE/OUTPATIENT VISIT EST Diagnosis: Pleurodynia[ICD10: R07.81] Sofi CAMPUZANO [facility] CPT-4: 72749 10/12/2017 ([id number]) OFFICE/OUTPATIENT VISIT EST Diagnosis: Acute bronchitis, unspecified[ICD10: J20.9] Sofi GEE DO [facility] CPT-4: 59869 09/16/2017 ([id number]) OFFICE/OUTPATIENT VISIT EST Diagnosis: Other specified postprocedural states[ICD10: Z98.890] Diagnosis: Cellulitis of neck[ICD10: L03.221] Diagnosis: Tachycardia, unspecified[ICD10: R00.0] Jessica Michaelaaronderek TORIN UJOANNA SLloyd GEE [facility] CPT-4: 52954 05/25/2017 ([id number]) OFFICE/OUTPATIENT VISIT EST Diagnosis: Lumbago with sciatica, right side[ICD10: M54.41] Diagnosis: Pain in unspecified joint[ICD10: M25.50] Jessica [facility] CPT-4: 40043 01/03/2017 ([id number]) OFFICE/OUTPATIENT VISIT EST Diagnosis: Bitten or stung by nonvenomous insect and other nonvenomous arthropods, subsequent encounter[ICD10: W57.XXXD] Diagnosis: Essential (primary) hypertension[ICD10: I10] Diagnosis: Low back pain[ICD10: M54.5] Jessica CARBAJAL [facility] CPT-4: 62648 09/23/2016 OFFICE/OUTPATIENT VISIT EST Diagnosis: Bitten or stung by nonvenomous insect and other nonvenomous arthropods, initial encounter[ICD10: W57.XXXA] Diagnosis: Essential (primary) hypertension[ICD10: I10] Kaitlynn Mosley [facility] CPT-4: 02205 09/03/2016 ([id number]) OFFICE/OUTPATIENT VISIT EST Diagnosis: Low back pain[ICD10: M54.5] Diagnosis: Radiculopathy, lumbosacral region[ICD10: M54.17] Jessica [facility] CPT-4: 10266 07/08/2016 ([id number]) OFFICE/OUTPATIENT VISIT EST Diagnosis: Acute pharyngitis, unspecified[ICD10: J02.9] Jessica [facility] CPT-4: 26664 06/21/2016 ([id number]) OFFICE/OUTPATIENT VISIT EST Diagnosis: Cough[ICD10: R05] Diagnosis: Fever, unspecified[ICD10: R50.9] Janiya Gregorio [facility] CPT-4: 01910 02/23/2016 ([id number]) OFFICE/OUTPATIENT VISIT EST Diagnosis: Acute sinusitis, unspecified[ICD10: J01.90] Jessica [facility] CPT-4: 35801 02/16/2016 OFFICE/OUTPATIENT VISIT EST Diagnosis: Type 2 diabetes mellitus without complications[ICD10: E11.9] Diagnosis: Gastro-esophageal reflux disease without esophagitis[ICD10: K21.9] Diagnosis: Ventral hernia without obstruction or gangrene[ICD10: K43.9] Suki GEE DO [facility] CPT-4: 38153 02/11/2015 OFFICE/OUTPATIENT VISIT EST 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] Diagnosis: Essential (primary) hypertension[ICD10: I10] Suki GEE DO [facility] CPT-4: 16879 01/28/2015 OFFICE/OUTPATIENT VISIT EST Diagnosis: SINUSITIS, ACUTE[ICD9: 461.9] Kaitlynn GEE [facility] CPT-4: 48056 12/06/2014 ([id number]) OFFICE/OUTPATIENT VISIT EST Diagnosis: SINUSITIS, ACUTE[ICD9: 461.9] Kaitlynn GEE [facility] CPT-4: 41590 08/09/2014 ([id number]) OFFICE/OUTPATIENT VISIT EST Diagnosis: TONSILLITIS, ACUTE[ICD9: 463] Suki GEE [facility] CPT-4: 63350 06/24/2014 OFFICE/OUTPATIENT VISIT EST Diagnosis: SINUSITIS, ACUTE[ICD9: 461.9] Diagnosis: EUSTACHIAN TUBE DYSFUNCTION[ICD9: 381.81] Diagnosis: COUGH[ICD9: 786.2] Suki GEE [facility] CPT-4: 28273 03/22/2014 OFFICE/OUTPATIENT VISIT EST Diagnosis: Elbow pain, right[ICD9: 719.42] Suki EGE [facility] CPT-4: 38308 03/05/2014 OFFICE/OUTPATIENT VISIT EST Diagnosis: SINUSITIS, ACUTE[ICD9: 461.9] Jessica GEE [facility] CPT-4: 79091 01/16/2014 ([id number]) OFFICE/OUTPATIENT VISIT EST Diagnosis: GROSS HEMATURIA[ICD9: 599.71] Jessica GEE [facility] CPT-4: 36967 10/19/2013 ([id number]) OFFICE/OUTPATIENT VISIT EST Diagnosis: DM W/O COMPLICATION TYPE II[ICD9: 250.00] Diagnosis: HYPERLIPIDEMIA NEC/NOS[ICD9: 272.4] Jessica GEE [facility] CPT-4: 37484 05/10/2013 ([id number]) OFFICE/OUTPATIENT VISIT EST Diagnosis: SINUSITIS, ACUTE[ICD9: 461.9] Jessica GEE DO [facility] CPT-4: 32853 04/17/2013 OFFICE/OUTPATIENT VISIT EST Diagnosis: OTITIS MEDIA NOS[ICD9: 382.9] Diagnosis: COUGH[ICD9: 786.2] Suki GEE [facility] CPT-4: 84646 03/05/2013 OFFICE/OUTPATIENT VISIT EST Diagnosis: COUGH[ICD9: 786.2] Diagnosis: BRONCHITIS, ACUTE[ICD9: 466.0] Suki GEE [facility] CPT-4: 25104 03/02/2013 OFFICE/OUTPATIENT VISIT EST Diagnosis: COUGH[ICD9: 786.2] Diagnosis: OTITIS MEDIA NOS[ICD9: 382.9] Diagnosis: BRONCHITIS, ACUTE[ICD9: 466.0] Suki GEE [facility] CPT-4: 28879 03/01/2013 OFFICE/OUTPATIENT VISIT EST Diagnosis: DM W/O COMPLICATION TYPE II, UNCONTROLLED[ICD9: 250.02] Jessica GEE [facility] CPT-4: 65596 02/22/2013 ([id number]) PREV VISIT EST AGE 40-64 Diagnosis: DM W/O COMPLICATION TYPE II, UNCONTROLLED[ICD9: 250.02] Diagnosis: HYPERTENSION[ICD9: 401.9] Diagnosis: ROUTINE MEDICAL EXAM[ICD9: V70.0] Jessica GEE [facility] CPT-4: 39532 01/11/2013 OFFICE/OUTPATIENT VISIT EST Diagnosis: HZ (HERPES ZOSTER)[ICD9: 053.9] Kaitlynn Mosley JESSICA GEE [facility] CPT-4: 62704 11/03/2012 OFFICE/OUTPATIENT VISIT EST Diagnosis: URINARY TRACT INFECTION[ICD9: 599.0] Diagnosis: GERD[ICD9: 530.81] Diagnosis: PHARYNGITIS, ACUTE[ICD9: 462] Jessica Marlen GEE [facility] CPT-4: 55646 05/04/2012 OFFICE/OUTPATIENT VISIT EST Diagnosis: COUGH[ICD9: 786.2] Diagnosis: SINUSITIS, ACUTE[ICD9: 461.9] Diagnosis: PHARYNGITIS, ACUTE[ICD9: 462] Jessica GEE [facility] CPT-4: 30177 10/11/2011 OFFICE/OUTPATIENT VISIT EST Diagnosis: COUGH[ICD9: 786.2] Diagnosis: SINUSITIS, ACUTE[ICD9: 461.9] Diagnosis: PHARYNGITIS, ACUTE[ICD9: 462] Diagnosis: ALLERGIC RHINITIS[ICD9: 477.9] Xiomara Rodriguez JESSICA Dominga GEE [facility] CPT-4: 20280 06/23/2011 OFFICE/OUTPATIENT VISIT EST Diagnosis: COUGH[ICD9: 786.2] Diagnosis: SINUSITIS, ACUTE[ICD9: 461.9] Diagnosis: PHARYNGITIS, ACUTE[ICD9: 462] Jessica [facility] CPT-4: 29241 06/14/2011 OFFICE/OUTPATIENT VISIT EST Diagnosis: SINUSITIS, ACUTE[ICD9: 461.9] Diagnosis: PHARYNGITIS, ACUTE[ICD9: 462] Jessica GEE [facility] CPT-4: 03004 12/02/2010 OFFICE/OUTPATIENT VISIT EST Diagnosis: HYPERTENSION[ICD9: 401.9] Diagnosis: HYPERLIPIDEMIA NEC/NOS[ICD9: 272.4] Diagnosis: DERMATITIS NOS[ICD9: 692.9] Jessica Michaelaaronderek [facility] CPT-4: 02127 11/12/2010 OFFICE/OUTPATIENT VISIT EST Jessica Michaelaaronderek JESSICA SLloyd [facility] CPT- 4: 31779 10/13/2010 ([id number]) OFFICE/OUTPATIENT VISIT EST Jessica Marlen [facility] CPT-4: 55897 06/24/2010 ([id number]) OFFICE/OUTPATIENT VISIT EST Jessica Michaelaaronderek [facility] CPT-4: 50212 06/08/2010 ([id number]) OFFICE/OUTPATIENT VISIT EST Xiomara GEE DO [employer] CPT-4: 17212 05/20/2010 ([id number]) OFFICE/OUTPATIENT VISIT EST Jessica MCCORMICKER DO [employer] CPT-4: 94046 04/30/2010 ([id number]) OFFICE/OUTPATIENT VISIT, EST Jessica GEE [email or web address] CPT-4: 38439 01/22/2010 Plan of Care Planned Activity Notes [...] K21.9 09/27/2018 [facility]ment[phone] [id number] [facility] 09/27/2018 Visit Diagnosis Plan: [...] F51.01 04/24/2018 [facility]ment: [phone] [facility] [facility] 04/24/2018 Patient Education: celecoxib- [employer] [id number] Completed 04/24/2018 Patient Education: amitriptyline- [employer] [id number] Completed 04/24/2018 Visit Diagnosis Plan: Type 2 [...] M25.50 12/27/2017 App[facility]ment: [phone] [facility] [facility] 12/27/2017 Patient Education: Patient Medication Summary Completed 12/27/2017 Patient Education: Patient Medication Summary Completed 12/19/2017 Care Plan: MAMMOGRAM BOTH BREASTS LOINC : 32016-9 Pending 12/19/2017 Patient Education: Patient Medication Summary Completed 12/16/2017 Care Plan: ASSAY THYROID STIM HORMONE Pen ding 12/16/2017 Care Plan: ASSAY OF FREE THYROXINE Pendin g 12/16/2017 Care Plan: LIPID PANEL LOINC : 43338-9 Pending 12/16/2017 Care Plan: CBC Pending 12/16/2017 Care Plan: A1C HPLC LOINC : 61294-0 Pending 12/16/2017 Patient Education: Patient Medication Summary Completed 10/17/2017 Care Plan: CT ANGIOGRAPHY CHEST LOINC : 93136-3 Pending 10/17/2017 Patient Education: Patient Medication Summary Completed 10/14/2017 Care Plan: CT ANGIOGRAPHY CHEST LOINC : 29930-0 Pending 10/14/2017 Appointment: Jessica Gee WPtel: [phone] [facility] UA 10/13/2017 Patient Education: Patient Medication Summary [...] : R07.81 10/12/2017 Appointment: Sofi Gresham [address] [facility] ACUTE ILLNESS 10/12/2017 Patient Education: Patient Medication [...] : J20.9 09/16/2017 Appointment: Sofi Gresham [address] ACUTE ILLNESS 09/16/2017 Patient Education: Patient Medication Summary Completed 09/16/2017 Appointment: Jessica Gee WPtel: [address] [place], [place] [id number] CANCELED 08/10/2017 Visit Diagnosis Plan: Cellulitis of [...] : R00.0 05/25/2017 Appointment: [facility]el[phone] [id number] [facility] FO[facility] 05/25/2017 Patient Education: Patient Medication Summary Completed 05/25/2017 Visit Diagnosis Plan: Lumbago with sciatica, right britton e Discussion: Check arthritis panel Patient awaiting neck surgery before surgery will consider back surgery ICD-9 : 724.2 ICD-10 : M54.41 01/03/2017 Appointment: Jessica Gee WPtel: [phone] [facility] ACUTE ILLNESS 01/03/2017 Patient Education: Patient Medication Summary Completed 01/03/2017 Patient Education: Patient Medication Summary Completed 12/16/2016 Care Plan: MAMMOGRAM SCREENING LOINC : 2 6347-5 Pending 12/16/2016 Patient Education: Patient Medication Summary Completed 10/07/2016 Care Plan: MRI LUMBAR SPINE W/O & W/DYE LOINC : 61768-5 Pending 10/07/2016 Visit Diagnosis Plan: Essential (primary) [...] W57.XXXD 09/23/2016 Appointment: Jessica Gee WPtel: [phone] [facility] 09/22 confirmed WORK IN 09/23/2016 Patient Education: Patient Medication Summary Completed 09/23/2016 Visit Plan: Tick panel at [facility] Increa se spironolactone to 2 po am (New Rx sent) Take B/P at home/work and also come to office next week for recheck Will await lab results before starting any antibiotic 09/03/2016 Appointment: Kaitlynn Mosley WPtel: [address] [place], [place] [id number] ACUTE ILLNESS 09/03/2016 Patient Education: Patient Medication Summary Completed 09/03/2016 Visit Diagnosis Plan: Low back pain Discussion: Celebr ex BID PT Continue stretches at home L/S xray Follow Up: 1 months ICD-9 : 724.2 ICD-10 : M54.5 07/08/2016 Appointment: Jessica Gee WPtel: [address] [place] [address] ACUTE ILLNESS 07/08/2016 Patient Education: Patient Medication Summary Completed 07/08/2016 Care Plan: X-RAY EXAM L-S SPINE 2/3 VWS LOINC : 91953-9 Pending 07/08/2016 Visit Plan: Supportive care. Rest, Fluid s, Tylenol/Motrin prn fever or bodyaches. Notify if worsening symptoms.New toothebrush in 5 days 06/21/2016 Visit NOS Plan: Plan Notes: Supportive care. Rest, Fluids... 06/21/2016 Visit Diagnosis Plan: Acute pharyngitis, unspecified D iscussion: Strep Negative Supportive Care May use zyrtec 10mg q HS ICD-9 : 462 ICD-10 : J02.9 06/21/2016 Appointment: Jessica Gee WPtel: [address] [place] [address] ACUTE ILLNESS 06/21/2016 Patient Education: Patient Medication Summary Completed 06/21/2016 Visit Plan: No pulseox last week to comp are to today, but she does sound diminished today Studies as above ordered Continue cefdinir until results received Increase albuterol treatments to q4-6hrs PRN Continue supportive care 02/23/2016 Appointment: Janiya Gregorio [address] [place] [address] ACUTE ILLNESS 02/23/2016 Patient Education: Patient Medication Summary Completed 02/23/2016 Care Plan: CHEST X-RAY 2VW FRONTAL&LATL LOINC : 99730-3 Pending 02/23/2016 Visit Plan: Saline nasal flushes prn. Ty lenol/Motrin prn headache. Notify if persists/symptoms worsening. 02/16/2016 Appointment: Jessica Gee WPtel: [address] [place], [place] [id number] ACUTE ILLNESS 02/16/2016 Patient Education: Patient Medication Summary Completed 02/16/2016 Visit Plan: Discussed labs Continue Topr ol at 200 mg PO daily Increase Aciphex to BID Notify if increase of Aciphex does not give relief. Repeat PT/INR in 2 weeks. 02/11/2015 Appointment: Suki Barahona WPtel: [address] [place], [place] [id number] 02/10 confirmed ~sl FOLLOW UP 02/11/2015 Patient Education: Patient Medication Summary Completed 02/11/2015 Patient Education: Patient Medication Summary Completed 02/06/2015 Care Plan: POC PROTIME/INR LOINC : 47975 -6 Pending 02/06/2015 Visit Plan: Increase Toprol XL 200 mg to one full tablet daily (is currently taking only 1/2 tablet) To for EKG today Monitor daily BP Notify of any changes- increased numbness, weakness, headache etc. 01/28/2015 Appointment: Suki Barahona WPtel: [address] [place], [place] [phone] ACUTE ILLNESS 01/28/2015 Patient Education: Patient Medication Summary Completed 01/28/2015 Visit Plan: ERx Amoxicillin and Flonase Nasal saline, humidified air Facial heat or cold packs for comfort Increase fluids/rest Discussed s/s of worsening, go to over weekend if these occur. 12/06/2014 Appointment: Kaitlynn Mosley WPtel: [address] [place], [place] [id number] ACUTE ILLNESS 12/06/2014 Patient Education: Patient Medication Summary Completed 12/06/2014 Appointment: Kaitlynn Mosley WPtel: [address] [place], [place] [id number] ACUTE ILLNESS 08/09/2014 Patient Education: Patient Medication Summary Completed 08/09/2014 Appointment: Suki Barahona WPtel: [address] [place], [place] [id number] ACUTE ILLNESS 06/24/2014 Patient Education: Patient Medication Summary Completed 06/24/2014 Appointment: Suki Barahona WPtel: [address] [place] [address] ACUTE ILLNESS 03/22/2014 Patient Education: Patient Medication Summary Completed 03/22/2014 Patient Education: [employer] - Antibi otics, Analgesics 18+, Oral Contraceptives F 18+ Completed 03/22/2014 Appointment: Suki Barahona WPtel: [address] [place] [address] FOLLOW UP 03/05/2014 Patient Education: Patient Medication Summary Completed 03/05/2014 Visit Plan: Saline nasal flushes prn. Ty lenol/Motrin prn headache. Notify if persists/symptoms worsening. Restart flonase 01/16/2014 Appointment: Jessica Gee WPtel: [address] [place] [address] ACUTE ILLNESS 01/16/2014 Patient Education: Patient Medication Summary Completed 01/16/2014 Appointment: Jessica Gee WPtel: [address] [place] [address] 10/19/2013 Patient Education: Patient Medication Summary Completed 10/19/2013 Appointment: Jessica Gee WPtel: [address] [place] [address] 08/08 patient canceled appt and said will call back to [facility] FOLLOW UP 08/09/2013 Visit Plan: Increase Coumadin to 6mg M-F and stay on 5mg Sat, Sun Add lipids to labs Check PT/INR in 3wks Continue metfromin at current dose and accuchecks 05/10/2013 Appointment: Jessica Gee WPtel: [address] [place] [address] 05/09 FOLLOW UP 05/10/2013 Patient Education: Patient Medication Summary Completed 05/10/2013 Visit Plan: Saline nasal flushes prn. Ty lenol/Motrin prn headache. Notify if persists/symptoms worsening. 04/17/2013 Appointment: Jessica Gee WPtel: [address] [place] [address] ACUTE ILLNESS 04/17/2013 Patient Education: Patient Medication Summary Completed 04/17/2013 Appointment: Suki Barahona WPtel: [address] [place] [address] FOLLOW UP 03/05/2013 Patient Education: Patient Medication Summary Completed 03/05/2013 Appointment: Suki Barahona WPtel: [address] [place] [address] FOLLOW UP 03/02/2013 Patient Education: Patient Medication Summary Completed 03/02/2013 Appointment: Suki Barahona WPtel: [address] [place] [address] ACUTE ILLNESS 03/01/2013 Patient Education: Patient Medication Summary Completed 03/01/2013 Visit Plan: Continue metformin and accuc hecks Add fish oil 1gram daily Check HbA1C, CMP in 2mos then fwup 02/22/2013 Appointment: Jessica Gee WPtel: [address] [place] [address] 02/21 [facility] FOLLOW UP 02/22/2013 Patient Education: Patient Medication Summary Completed 02/22/2013 Visit Plan: Start Metformin Start Accuch ecks daily alternating times Will go for dilated eye exam once BS more stabilized Diabetic foot care discussed Diabetic diet info given 01/11/2013 Appointment: Jessica Gee WPtel: [address] [place] [address] FOLLOW UP 01/11/2013 Patient Education: Patient Medication Summary Completed 01/11/2013 Appointment: Kaitlynn Mosley WPtel: [address] [place] [address] ACUTE ILLNESS 11/03/2012 Patient Education: Patient Medication Summary Completed 11/03/2012 Appointment: Xiomara Rodriguez WPtel: [address] [place], [place] [id number] ACUTE ILLNESS 05/04/2012 Patient Education: Patient Medication Summary Completed 05/04/2012 Visit Plan: pt reports that she always g ets yeast infections. Discussed that the antifungal can cause problems/increased bleeding with Coumdin. Pt. will start with probiotics and only take the Diflucan if needed. Cefdinir. 10/11/2011 Appointment: Xiomara Rodriguez WPtel: [address] [place] [address] ACUTE ILLNESS 10/11/2011 Patient Education: Patient Medication Summary Completed 10/11/2011 Appointment: Xiomara Rodriguez WPtel: [address] [place] [address] FOLLOW UP 06/23/2011 Patient Education: Patient Medication Summary Completed 06/23/2011 Visit Plan: Will prescribe an antibiotic and diflucan. Pt. reports that she frequently gets yeast infection. Discussed that she will notify if any symptoms persist. Pt. reports that her relatives have recently been hospitalized with pneumonia. 06/14/2011 Appointment: Xiomara Rodriguez WPtel: [address] [place] [address] ACUTE ILLNESS 06/14/2011 Patient Education: Patient Medication Summary Completed 06/14/2011 Visit Plan: sample of veramyst. Cefuroxi me axetil. Pt. will focus on hydration and rest. Discussed comfort measures and monitoring for worsening symptoms. 12/02/2010 Appointment: Xiomara Rodriguez WPtel: [address] [place], [place] [phone] ACUTE ILLNESS 12/02/2010 Patient Education: Patient Medication Summary Completed 12/02/2010 Visit Plan: Change HCTZ to spironolacton e will start zocor in 1 mo BP med in 1mo 11/12/2010 Appointment: Jessica Gee WPtel: [address] [place] [address] FOLLOW UP 11/12/2010 Patient Education: Patient Medication Summary Completed 11/12/2010 Appointment: Jessica Gee WPtel: [address] [place] [address] BP CHECK 10/26/2010 Patient Education: Patient Medication Summary Completed 10/26/2010 Visit Plan: Continue Toprol at bedtime A dd HCTZ in AM BP check in 2wks Fasting lab with next PT/INR 10/13/2010 Appointment: Jessica Gee WPtel: [address] [place] [address] FOLLOW UP 10/13/2010 Patient Education: Patient Medication Summary Completed 10/13/2010 Visit Plan: Cont abx. Fwup with surgery as scheduled 06/24/2010 Appointment: Jessica Gee WPtel: [address] [place] [address] Follow Up 06/24/2010 Patient Education: Patient Medication Summary Completed 06/24/2010 Appointment: Jessica Gee WPtel: [address] [place] [address] Hospital Follow Up 06/22/2010 Visit Plan: pt [...] subside. 06/08/2010 Appointment: Xiomara Rodriguez WPtel: [address] [place] [address] ACUTE ILLNESS 06/08/2010 Patient Education: Patient Medication Summary Completed 06/08/2010 Appointment: Xiomara Rodriguez WPtel: [address] [place] [address] FOLLOW UP 06/01/2010 Appointment: Jessica Gee WPtel: [address] [place] [address] UA 05/29/2010 Patient Education: Patient Medication Summary Completed 05/29/2010 Appointment: Xiomara Rodriguez WPtel: [address] [place] [address] ACUTE ILLNESS 05/20/2010 Patient Education: Patient Medication Summary Completed 05/20/2010 Appointment: Jessica Gee WPtel: [address] [place] [address] BP CHECK 05/13/2010 Patient Education: Patient Medication Summary Completed 05/13/2010 Visit Plan: Increase Lisinopril hct to 2 0/12.5mg q AM Use atarax prn and routinely at bedtime and Medrol dose pack BP check in 3wks Pt defers stress test at this time 04/30/2010 Appointment: Jessica Gee WPtel: [address] [place] [address] ACUTE ILLNESS 04/30/2010 Patient Education: Patient Medication Summary Completed 04/30/2010 Appointment: Jessica Gee WPtel: [address] [place] [address] BP CHECK 02/27/2010 Patient Education: Patient Medication Summary Completed 02/27/2010 Visit Plan: Cont Toprol Add Altace 10mg QD Cont Wellbutrin Will likely add SSRI after BP stable BP check in 2wks 01/22/2010 Appointment: Jessica Gee WPtel: [address] [place] [address] ACUTE ILLNESS 01/22/2010 Patient Education: Patient Medication Summary Completed 01/22/2010 Referral: Rupa Raines WPtel: [address] [id number] [place] Referral Completed Referral: Neymar Alberts WPtel: [address] [address] [place] Referral Initiated Instructions Comment . Tick panel at [facility] Increase spironolactone to 2 [...]
--- OUTSIDE RECORDS SUMMARY | 2019-09-10 03:19 | XMS REPORT | CCD ---
Author Author Nava Gee D.O. 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 Name Role Phone Jessica Gee D.O., PP Unavailable CCM Unavailable Summary Purpose Interface Exchange Insurance Providers Payer name Policy type / Coverage type Covered green party ID Effective Begin Date Effective End Date Blue Cross Blue Shield Blue Cross/Bl ue Shield [id number] 2018 Unknown Family History Family History data not found Social History Social History Element Codes Description Effective Dates Tobacco history SNOMED CT: 144321069 Never smoker 10/13/2010 Allergies, Adverse Reactions, Alerts Substance Reaction Codes Entered Date Inactivated Date Status * NO KNOWN DRUG JOSE LUIS RGIES Unknown 01/22/2010 No Inactive Date Active Past Medical History Illness Codes Condition Status Onset Date Resolved Date Gastro-esophageal re flux disease without esophagitis ICD-9: 530.81 ICD-10: K21.9 Active 05/04/2012 Unknown Urinary tract infect ion, site not specified ICD-9: 599.0 ICD-10: N39.0 Active 09/27/2018 Unknown Ventral hernia witho ut obstruction or gangrene ICD-9: 553.20 ICD-10: K43.9 Active 02/10/2015 Unknown Carpal tunnel syndro me, right upper limb ICD-9: 354.0 ICD-10: G56.01 Active 04/24/2018 Unknown Essential (primary) hypertension ICD-9: 401.9 ICD-10: I10 Active 04/24/2018 Unknown Primary insomnia ICD-9: 780.52 ICD-10: F51.01 Active 04/24/2018 Unknown Type 2 diabetes ashley itus without complications ICD-9: 250.00 ICD-10: E11.9 Active 05/10/2013 Unknown Mixed hyperlipidemia ICD-9: 272.4 ICD-10: E78.2 Active 12/27/2017 Unknown Pain in unspecified joint ICD-9: 719.40 ICD-10: M25.50 Active 12/27/2017 Unknown Encounter for other screening for malignant neoplasm of breast ICD-9: V76.10 ICD-10: Z12.39 Active 12/16/2016 Unknown Encounter for genera l adult medical examination without abnormal findings ICD-9: V70.0 ICD-10: Z00.00 Active 12/16/2017 Unknown [facility] (current) use of anticoagulants ICD-9: V58.61 ICD-10: Z79.01 Active 02/05/2015 Unknown Acute sinusitis, uns pecified ICD-9: 461.9 ICD-10: J01.90 Active 03/22/2014 Unknown Dyspnea, unspecified ICD-9: 786.09 ICD-10: R06.00 Active 10/14/2017 Unknown Personal history of pulmonary embolism ICD-9: V12.55 ICD-10: Z86.711 Active 10/14/2017 Unknown Hematuria, unspecified ICD-9: 599.70 ICD-10: R31.9 Active 10/13/2017 Unknown Pleurodynia ICD-9: 786.50 ICD-10: R07.81 Active 10/12/2017 Unknown Acute bronchitis, un specified ICD-9: 466.0 ICD-10: J20.9 Active 09/16/2017 Unknown Cellulitis of neck ICD- 9: 682.1 ICD-10: L03.221 Active 05/25/2017 Unknown Other specified post procedural states ICD-9: V45.89 ICD-10: Z98.890 Active 05/25/2017 Unknown Tachycardia, unspeci fied ICD-9: 785.0 ICD-10: R00.0 Active 05/25/2017 Unknown Lumbago with sciatic a, right side ICD-9: 724.2 ICD-10: M54.41 Active 01/03/2017 Unknown Pain in unspecified joint ICD-9: 719.49 ICD-10: M25.50 Active 01/03/2017 Unknown Cough ICD-9: 786.2 ICD-10: R05 Active 03/22/2014 Unknown Low back pain ICD-9: 724.2 ICD-10: M54.5 Active 07/08/2016 Unknown Bitten or stung by n onvenomous insect and other nonvenomous arthropods, subsequent encounter ICD-9: E906.4 ICD-10: W57.XXXD Active 09/23/2016 Unknown Bitten or stung by n onvenomous insect and other nonvenomous arthropods, initial encounter ICD-9: 919.4 ICD-10: W57.XXXA Active 09/03/2016 Unknown Radiculopathy, lumbo sacral region ICD-9: 724.4 ICD-10: M54.17 Active 07/08/2016 Unknown Acute pharyngitis, u nspecified ICD-9: 462 ICD-10: J02.9 Active 06/21/2016 Unknown Fever, unspecified ICD- 9: 780.60 ICD-10: R50.9 Active 02/22/2016 Unknown Other disorders of f acial nerve ICD-9: 351.8 ICD-10: G51.8 Active 01/27/2015 Unknown TONSILLITIS, ACUTE ICD- 9: 463 Active 06/24/2014 Unknown COUGH ICD-9: 786.2 Active 03/22/2014 Unknow n EUSTACHIAN TUBE DYSF UNCTION ICD-9: 381.81 Active 04/2014 Unknown SINUSITIS, ACUTE ICD-9: 461.9 Active 03/22/2014 Unknown Elbow pain, right ICD-9: 719.42 Active 03/05/2014 Unknown GROSS HEMATURIA ICD-9: 599.71 Active 10/19/2013 Unknown DM W/O COMPLICATION TYPE II ICD-9: 250.00 Active Unknown BRONCHITIS, ACUTE ICD-9: 466.0 Active 03/01/2013 Unknown OTITIS MEDIA NOS ICD-9: 382.9 Active 03/01/2013 Unknown DM W/O COMPLICATION TYPE II, UNCONTROLLED ICD-9: 250.02 Active 01/11/2013 Unknown ROUTINE MEDICAL EXAM ICD-9: V70.0 Active 01/11/2013 Unknown HZ (HERPES ZOSTER) ICD- 9: 053.9 Active 11/03/2012 Unknown GERD ICD-9: 530.81 Active 05/04/2012 Unknow n ALLERGIC RHINITIS ICD-9: 477.9 Active 06/23/2011 Unknown PHARYNGITIS, ACUTE ICD- 9: 462 Active 12/02/2010 Unknown HYPERLIPIDEMIA NEC/NOS ICD-9: 272.4 Active 11/12/2010 Unknown ABDOMINAL PAIN ICD-9: 789.00 Active 06/08/2010 Unknown URINARY TRACT INFECTION ICD-9: 599.0 Active 06/08/2010 Unknown Dysuria ICD-9: 788.1 Active 05/29/2010 Unknow n PAIN, LOWER BACK ICD-9: 724.2 Active 05/29/2010 Unknown URTICARIA ICD-9: 708.9 Active 05/20/2010 Unknow n CHEST PAIN NOS ICD-9: 786.50 Active 04/30/2010 Unknown DERMATITIS NOS ICD-9: 692.9 Active 04/30/2010 Unknown Depression Unknown Active 01/22/2010 Unknow n Gastroesophageal ref lux disease Unknown Active 0 Unknown Hypertension Unknown Active 01/22/2010 Unknow n Pulmonary embolism Unknown Active 01/22/2010 Unknown CEPHALGIA ICD-9: 784.0 Active 01/22/2010 Unknow n DEPRESSIVE DISORDER NEC ICD-9: 311 Active 01/22/2010 Unknown HYPERTENSION ICD-9: 401.9 Active 01/22/2010 Unknown Problems Condition Codes Effectiv e Dates Condition Status Gastro-esophageal re flux disease without esophagitis ICD-9: 530.81 ICD-10: K21.9 05/04/2012 Active Urinary tract infect ion, site not specified ICD-9: 599.0 ICD-10: N39.0 09/27/2018 Active Ventral hernia witho ut obstruction or gangrene ICD-9: 553.20 ICD-10: K43.9 02/10/2015 Active Carpal tunnel syndro me, right upper limb ICD-9: 354.0 ICD-10: G56.01 04/24/2018 Active Essential (primary) hypertension ICD-9: 401.9 ICD-10: I10 04/24/2018 Active Primary insomnia ICD-9: 780.52 ICD-10: F51.01 04/24/2018 Active Type 2 diabetes ashley itus without complications ICD-9: 250.00 ICD-10: E11.9 05/10/2013 Active Mixed hyperlipidemia ICD-9: 272.4 ICD-10: E78.2 12/27/2017 Active Pain in unspecified joint ICD-9: 719.40 ICD-10: M25.50 12/27/2017 Active Encounter for other screening for malignant neoplasm of breast ICD-9: V76.10 ICD-10: Z12.39 12/16/2016 Active Encounter for genera l adult medical examination without abnormal findings ICD-9: V70.0 ICD-10: Z00.00 12/16/2017 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89 ICD-10: Z98.890 05/25/2017 Active Tachycardia, unspeci fied ICD-9: 785.0 ICD-10: R00.0 05/25/2017 Active Lumbago with sciatic a, right side ICD-9: 724.2 ICD-10: M54.41 01/03/2017 Active Pain in unspecified joint ICD-9: 719.49 ICD-10: M25.50 01/03/2017 Active Cough ICD-9: 786.2 ICD-10: R05 03/22/2014 Active Low back pain ICD-9: 724.2 ICD-10: M54.5 07/08/2016 Active Bitten or stung by n onvenomous insect and other nonvenomous arthropods, subsequent encounter ICD-9: E906.4 ICD-10: W57.XXXD 09/23/2016 Active Bitten or stung by n onvenomous insect and other nonvenomous arthropods, initial encounter ICD-9: 919.4 ICD-10: W57.XXXA 09/03/2016 Active Radiculopathy, lumbo sacral region ICD-9: 724.4 ICD-10: M54.17 07/08/2016 Active Acute pharyngitis, u nspecified ICD-9: 462 ICD-10: J02.9 06/21/2016 Active Fever, unspecified ICD- 9: 780.60 ICD-10: R50.9 02/22/2016 Active Other disorders of f acial nerve ICD-9: 351.8 ICD-10: G51.8 01/27/2015 Active TONSILLITIS, ACUTE ICD- 9: 463 06/24/2014 Active COUGH ICD-9: 786.2 03/22/2014 Active EUSTACHIAN TUBE DYSF UNCTION ICD-9: 381.81 03/22/2014 Active SINUSITIS, ACUTE ICD-9: 461.9 03/22/2014 Active Elbow pain, right ICD-9: 719.42 03/05/2014 Active GROSS HEMATURIA ICD-9: 599.71 10/19/2013 Active DM W/O COMPLICATION TYPE II ICD-9: 250.00 05/10/2013 Active BRONCHITIS, ACUTE ICD-9: 466.0 03/01/2013 Active OTITIS MEDIA NOS ICD-9: 382.9 03/01/2013 Active DM W/O COMPLICATION TYPE II, UNCONTROLLED ICD-9: 250.02 01/11/2013 Active ROUTINE MEDICAL EXAM ICD-9: V70.0 01/11/2013 Active HZ (HERPES ZOSTER) ICD- 9: 053.9 11/03/2012 Active GERD ICD-9: 530.81 05/04/2012 Active ALLERGIC RHINITIS ICD-9: 477.9 06/23/2011 Active PHARYNGITIS, ACUTE ICD- 9: 462 12/02/2010 Active HYPERLIPIDEMIA NEC/NOS ICD-9: 272.4 11/12/2010 Active ABDOMINAL PAIN ICD-9: 789.00 06/08/2010 Active URINARY TRACT INFECTION ICD-9: 599.0 06/08/2010 Active Dysuria ICD-9: 788.1 05/29/2010 Active PAIN, LOWER BACK ICD-9: 724.2 05/29/2010 Active URTICARIA ICD-9: 708.9 05/20/2010 Active CHEST PAIN NOS ICD-9: 786.50 04/30/2010 Active DERMATITIS NOS ICD-9: 692.9 04/30/2010 Active Depression Unknown 01/22/2010 Active Gastroesophageal ref lux disease Unknown 01/22/2010 Activ e Hypertension Unknown 01/22/2010 Active Pulmonary embolism Unknown 01/22/2010 Active CEPHALGIA ICD-9: 784.0 01/22/2010 Active DEPRESSIVE DISORDER NEC ICD-9: 311 01/22/2010 Active HYPERTENSION ICD-9: 401.9 01/22/2010 Active Medications Medication Codes Instruc tions Start Date Stop Date Sta tus Fill Instructions Coumadin 5 mg tablet RxNorm: 120826 1 Tablet(s) PO QD 11/27/2018 02/24/2019 Active metformin ER 500 mg tablet,extended release 24 hr RxNorm: 377929 1 Tablet(s) PO BID 10/02/2018 11/30/2018 Ac tive warfarin 1 mg tablet RxNorm: 516318 TAKE 1 TABLET BY MOUTH ONCE DAILY. TAKE AN ADDITIONAL TABLET ON TUESDAY AND Tuesday10/02/2018 No Stop Date Active warfarin 5 mg tablet RxNorm: 037464 1 Tablet(s) PO QD 09/27/2018 10/26/2018 Inactive Bactrim DS 800 mg-16 0 mg tablet RxNorm: 152139 1 Tablet(s) PO BID 09/27/2018 10/03/2018 Inactive Toprol XL 200 mg tab let,extended release RxNorm: 190375 1 Tablet(s) PO QD 09/18/2018 03/16/2019 Ac tive omeprazole 40 mg cap estela,delayed release RxNorm: 349296 TAKE 1 CAPSULE BY JOANN TH TWICE DAILY 09/11/2018 No Stop Date Active Coumadin 5 mg tablet RxNorm: 255241 1 Tablet(s) PO QD 08/21/2018 11/27/2018 Inactive metformin ER 500 mg tablet,extended release 24 hr RxNorm: 241382 1 Tablet(s) PO BID 07/31/2018 09/28/2018 In active omeprazole 40 mg cap estela,delayed release RxNorm: 544275 TAKE 1 CAPSULE BY JOANN TH TWICE DAILY 06/27/2018 09/10/2018 Inactive metformin ER 500 mg tablet,extended release 24 hr RxNorm: 737156 Tablet(s) 1 Tablet(s) PO BID 06/27/2018 07/31/2018 Inactive Toprol XL 200 mg tab let,extended release RxNorm: 729007 1 Tablet(s) PO QD 06/14/2018 09/17/2018 In active Coumadin 5 mg tablet RxNorm: 293629 1 Tablet(s) PO QD 06/14/2018 08/20/2018 Inactive metformin ER 500 mg tablet,extended release 24 hr RxNorm: 668525 Tablet(s) 1 Tablet(s) PO BID 05/22/2018 06/26/2018 Inactive Coumadin 5 mg tablet RxNorm: 182411 TAKE 1 TABLET BY MOUTH ONCE DAILY 05/11/2018 06/14/2018 In active Lovenox 40 mg/0.4 mL subcutaneous syringe RxNorm: 030082 40 Milligram(s) SQ QD 05/05/2018 09/26/2018 In active amitriptyline 25 mg tablet RxNorm: 321841 1 Tablet(s) PO QHS fo r sleep/HAs 04/24/2018 10/20/2018 In active F-Origin Ultra Test strips RxNorm: Test blood sugar daily (Dx: E11.65) 04/24/2018 No Stop Date Active celecoxib 200 mg cap estela RxNorm: 169644 1 Capsule(s) PO BID 04/24/2018 10/20/2018 Inactive Celebrex 200 mg capsule RxNorm: 738150 TAKE 1 CAPSULE BY MOUTH ONCE DAILY 04/19/2018 04/23/2018 In active warfarin 1 mg tablet RxNorm: 078275 1 Tablet(s) PO QD and additional tablet on Mon & Thurs 04/14/2018 10/01/2018 Inactive Toprol XL 200 mg tab let,extended release RxNorm: 154959 TAKE 1 TABLET BY MOUT H ONCE DAILY 04/11/2018 06/14/2018 Inactive metformin ER 500 mg tablet,extended release 24 hr RxNorm: 026107 Tablet(s) 1 Tablet(s) PO BID 03/17/2018 05/21/2018 Inactive Coumadin 5 mg tablet RxNorm: 709957 TAKE 1 TABLET BY MOUTH ONCE DAILY 03/15/2018 05/10/2018 In active Lovenox 40 mg/0.4 mL subcutaneous syringe RxNorm: 757805 40 Milligram(s) SQ QD 01/27/2018 04/11/2018 In active pravastatin 40 mg ta blet RxNorm: 979868 TAKE 1 TABLET BY MOUT H ONCE DAILY 01/23/2018 No Stop Date Active omeprazole 40 mg cap estela,delayed release RxNorm: 223365 TAKE 1 CAPSULE BY JOANN TH TWICE DAILY 01/23/2018 06/26/2018 Inactive metformin ER 500 mg tablet,extended release 24 hr RxNorm: 549893 Tablet(s) 1 Tablet(s) PO BID 01/16/2018 01/15/2018 Inactive Toprol XL 200 mg tab let,extended release RxNorm: 779366 TAKE 1 TABLET BY MOUT H ONCE DAILY 01/16/2018 04/10/2018 Inactive Coumadin 5 mg tablet RxNorm: 135356 TAKE 1 TABLET BY MOUTH ONCE DAILY 01/06/2018 03/14/2018 In active Celebrex 200 mg capsule RxNorm: 551888 1 Capsule(s) PO BID 12/27/2017 03/26/2018 Inactive metformin ER 500 mg tablet,extended release 24 hr RxNorm: 754644 1 Tablet(s) PO BID Needs APPT 12/21/2017 01/16/2018 Inactive omeprazole 40 mg cap estela,delayed release RxNorm: 935142 TAKE 1 CAPSULE BY JOANN TH TWICE DAILY 11/02/2017 01/22/2018 Inactive Celebrex 200 mg capsule RxNorm: 299279 1 Capsule(s) PO QD 11/01/2017 12/26/2017 Inactive Coumadin 5 mg tablet RxNorm: 853539 Tablet(s) TAKE ONE TABLET BY MOUTH ONCE DAILY. 10/31/2017 12/29/2017 Inactive warfarin 1 mg tablet RxNorm: 757714 1 Tablet(s) PO QD 10/31/2017 04/13/2018 Inactive spironolactone 25 mg tablet RxNorm: 025524 TAKE TWO TABLETS BY M OUTH IN THE MORNING 10/31/2017 04/23/2018 In active metformin ER 500 mg tablet,extended release 24 hr RxNorm: 304238 1 Tablet(s) PO BID Needs updated fasting lab 10/20/2017 12/21/2017 Inactive Medrol (Dale) 4 mg ta blets in a dose pack RxNorm: 668638 Tablet(s) PO take as directed 10/12/2017 12/15/2017 Inactive Celebrex 200 mg capsule RxNorm: 691711 1 Capsule(s) PO QD 10/03/2017 10/02/2017 Inactive spironolactone 25 mg tablet RxNorm: 828181 TAKE TWO TABLETS BY M OUTH IN THE MORNING 09/19/2017 10/30/2017 In active Zithromax Z-Dale 250 mg tablet RxNorm: 542213 Tablet(s) PO take as directed 09/16/2017 10/11/2017 In active Medrol (Dale) 4 mg ta blets in a dose pack RxNorm: 170058 Tablet(s) take as dir ected PO 09/16/2017 10/11/2017 Inactive doxycycline hyclate 100 mg tablet RxNorm: 0160057 1 Tablet(s) PO BID 09/16/2017 09/15/2017 Inactive doxycycline hyclate 100 mg tablet RxNorm: 5912985 1 Tablet(s) PO BID 09/16/2017 09/25/2017 Inactive Tessalon Perles 100 mg capsule RxNorm: 086421 1 Capsule(s) PO TID a s needed 09/16/2017 12/15/2017 In active warfarin 1 mg tablet RxNorm: 525350 1 Tablet(s) PO QD 09/06/2017 10/31/2017 Inactive Coumadin 5 mg tablet RxNorm: 800069 Tablet(s) TAKE ONE TABLET BY MOUTH ONCE DAILY. 09/06/2017 10/31/2017 Inactive Toprol XL 200 mg tab let,extended release RxNorm: 336477 1 Tablet(s) PO QD 2017 01/02/2018 In active warfarin 1 mg tablet RxNorm: 622066 1 Tablet(s) PO QD DUE FOR LABS AUGUST 12 08/29/2017 09/06/2017 In active Coumadin 5 mg tablet RxNorm: 203172 Tablet(s) TAKE ONE TABLET BY MOUTH ONCE DAILY. DUE FOR PT/INR AUGUST 12 08/29/2017 09/06/2017 Inactive Coumadin 5 mg tablet RxNorm: 807093 Tablet(s) TAKE ONE TABLET BY MOUTH ONCE DAILY. DUE FOR PT/INR AUGUST 12 08/01/2017 08/29/2017 Inactive warfarin 1 mg tablet RxNorm: 121817 1 Tablet(s) PO QD DUE FOR LABS AUGUST 12 08/01/2017 08/29/2017 In active scopolamine 1 mg ove r 3 days transdermal patch RxNorm: 597214 1 TD take off in 72 hours. 08/01/2017 12/26/2017 Inactive pravastatin 40 mg ta blet RxNorm: 490740 Tablet(s) TAKE ONE TA BLET BY MOUTH ONCE DAILY 07/07/2017 01/02/2018 Inactive Coumadin 5 mg tablet RxNorm: 022491 Tablet(s) TAKE ONE TABLET BY MOUTH ONCE DAILY. DUE FOR PT/INR. 06/29/2017 08/01/2017 Inactive warfarin 1 mg tablet RxNorm: 172344 1 Tablet(s) PO QD 06/29/2017 08/01/2017 Inactive Coumadin 5 mg tablet RxNorm: 883857 TAKE ONE TABLET BY MOUTH ONCE DAILY. DUE FOR PT/INR. 05/30/2017 06/29/2017 Inactive omeprazole 40 mg cap estela,delayed release RxNorm: 466243 1 Capsule(s) PO BID 05/30/2017 08/27/2017 In active Celebrex 200 mg capsule RxNorm: 983683 1 Capsule(s) PO QD 05/23/2017 10/03/2017 Inactive metformin ER 500 mg tablet,extended release 24 hr RxNorm: 650153 TAKE ONE TABLET BY MOUTH TWICE DAILY 05/20/2017 10/20/2017 Inactive Coumadin 5 mg tablet RxNorm: 581369 1 Tablet(s) PO QD due for PT/INR 04/25/2017 05/24/2017 In active warfarin 1 mg tablet RxNorm: 764464 1 Tablet(s) PO QD due for labs this week 03/16/2017 06/29/2017 In active omeprazole 40 mg cap estela,delayed release RxNorm: 211542 1 Capsule(s) PO BID 03/16/2017 05/30/2017 In active Celebrex 200 mg capsule RxNorm: 897150 1 Capsule(s) PO BID as needed for pain 03/16/2017 05/22/2017 In active Coumadin 5 mg tablet RxNorm: 855446 1 Tablet(s) PO QD due for PT/INR 03/16/2017 04/14/2017 In active Celebrex 200 mg capsule RxNorm: 951782 1 Capsule(s) PO BID as needed for pain 02/09/2017 03/15/2017 In active Toprol XL 200 mg tab let,extended release RxNorm: 476637 1 Tablet(s) PO QD 02/08/2017 2017 In active Celebrex 200 mg capsule RxNorm: 143584 1 Capsule(s) PO BID as needed for pain 01/14/2017 02/08/2017 In active omeprazole 40 mg cap estela,delayed release RxNorm: 022054 1 Capsule(s) PO BID 01/12/2017 03/16/2017 In active Coumadin 5 mg tablet RxNorm: 164913 1 Tablet(s) PO QD 12/15/2016 03/16/2017 Inactive warfarin 1 mg tablet RxNorm: 223155 1 Tablet(s) PO QD 12/15/2016 03/16/2017 Inactive metformin ER 500 mg tablet,extended release 24 hr RxNorm: 824444 Tablet(s) TAKE ONE TABLET BY MOUTH TWICE DAILY 11/29/2016 02/26/2017 Inactive omeprazole 40 mg cap estela,delayed release RxNorm: 493571 1 Capsule(s) PO BID 11/29/2016 12/28/2016 In active pravastatin 40 mg ta blet RxNorm: 865962 Tablet(s) TAKE ONE TA BLET BY MOUTH ONCE DAILY 11/19/2016 07/07/2017 Inactive omeprazole 40 mg cap estela,delayed release RxNorm: 117357 1 Capsule(s) PO BID 10/19/2016 10/18/2016 In active omeprazole 40 mg cap estela,delayed release RxNorm: 540195 1 Capsule(s) PO BID 10/19/2016 11/17/2016 In active pantoprazole 40 mg t ablet,delayed release RxNorm: 532422 1 Tablet(s) PO QD 09/30/2016 10/18/2016 In active pantoprazole 40 mg t ablet,delayed release RxNorm: 502646 1 Tablet(s) PO QD 09/30/2016 09/29/2016 In active Zofran ODT 4 mg disi ntegrating tablet RxNorm: 397682 1 Tablet(s) PO Q4H as needed for nausea 09/15/2016 01/02/2017 Inactive Coumadin 5 mg tablet RxNorm: 968577 1 Tablet(s) PO QD 09/14/2016 12/12/2016 Inactive warfarin 1 mg tablet RxNorm: 634944 1 Tablet(s) PO QD 09/14/2016 12/12/2016 Inactive spironolactone 25 mg tablet RxNorm: 959303 2 Tablet(s) PO QAM 09/03/2016 01/02/2017 Inactive Wellbutrin XL 300 mg 24 hr tablet, extended release RxNorm: 639507 TAKE ONE TABLET BY MOUTH ONCE DAILY 08/26/2016 12/26/2017 Inactive Toprol XL 200 mg tab let,extended release RxNorm: 550176 1 Tablet(s) PO QD 07/28/2016 02/08/2017 In active metformin ER 500 mg tablet,extended release 24 hr RxNorm: 527284 Tablet(s) TAKE ONE TABLET BY MOUTH TWICE DAILY 07/15/2016 11/29/2016 Inactive cyclobenzaprine 5 mg tablet RxNorm: 337997 1 Tablet(s) PO QHS fo r spasm 07/08/2016 08/06/2016 In active Celebrex 200 mg capsule RxNorm: 1 Capsule(s) PO BID 07/08/2016 08/06/2016 Inactive spironolactone 25 mg tablet RxNorm: 896447 1 Tablet(s) PO QAM 07/06/2016 09/02/2016 Inactive Wellbutrin XL 300 mg 24 hr tablet, extended release RxNorm: 864616 TAKE ONE TABLET BY MOUTH ONCE DAILY 06/15/2016 07/14/2016 Inactive Coumadin 5 mg tablet RxNorm: 497447 1 Tablet(s) PO QD 06/08/2016 09/14/2016 Inactive warfarin 1 mg tablet RxNorm: 569057 1 Tablet(s) PO QD 06/08/2016 09/14/2016 Inactive Toprol XL 200 mg tab let,extended release RxNorm: 826217 TAKE ONE TABLET BY MO [facility] ONCE DAILY 04/26/2016 07/28/2016 Inactive pravastatin 40 mg ta blet RxNorm: 657679 TAKE ONE TABLET BY MO [facility] ONCE DAILY 04/19/2016 10/15/2016 In active Coumadin 5 mg tablet RxNorm: 481305 1 Tablet(s) PO QD 03/09/2016 06/06/2016 Inactive warfarin 1 mg tablet RxNorm: 797061 1 Tablet(s) PO QD 03/09/2016 06/06/2016 Inactive metformin ER 500 mg tablet,extended release 24 hr RxNorm: 982787 TAKE ONE TABLET BY MOUTH TWICE DAILY 02/25/2016 07/15/2016 Inactive spironolactone 25 mg tablet RxNorm: 885752 TAKE ONE TABLET BY MO UTH ONCE DAILY IN THE MORNING 02/25/2016 07/06/2016 Inactive prednisone 20 mg tablet RxNorm: 694279 1 Tablet(s) PO QAM 02/16/2016 02/20/2016 Inactive cefdinir 300 mg capsule RxNorm: 104457 2 Capsule(s) PO QD 02/16/2016 02/25/2016 Inactive Toprol XL 200 mg tab let,extended release RxNorm: 088483 TAKE ONE TABLET BY MO UTH ONCE DAILY 01/26/2016 04/24/2016 Inactive Aciphex 20 mg tablet ,delayed release RxNorm: 161600 1 Tablet(s) PO BID 12/24/2015 09/29/2016 In active Omeprazole and Pepcid have not helped. Coumadin 5 mg tablet RxNorm: 669110 1 Tablet(s) PO QD 12/10/2015 03/09/2016 Inactive Coumadin 5 mg tablet RxNorm: 011344 1 Tablet(s) PO QD 12/08/2015 12/09/2015 Inactive Toprol XL 200 mg tab let,extended release RxNorm: 265348 TAKE ONE TABLET BY MO UTH ONCE DAILY 11/20/2015 01/18/2016 Inactive warfarin 1 mg tablet RxNorm: 285995 1 Tablet(s) PO QD 11/03/2015 03/09/2016 Inactive pravastatin 40 mg ta blet RxNorm: 801018 Tablet(s) TAKE ONE TA BLET BY MOUTH ONCE DAILY 10/20/2015 01/17/2016 Inactive pravastatin 40 mg ta blet RxNorm: 053280 TAKE ONE TABLET BY MO UTH ONCE DAILY 10/20/2015 10/19/2015 In active metformin ER 500 mg tablet,extended release 24 hr RxNorm: 077186 TAKE ONE TABLET BY MOUTH TWICE DAILY 10/03/2015 12/31/2015 Inactive Toprol XL 200 mg tab let,extended release RxNorm: 700226 TAKE ONE TABLET BY MO UTH ONCE DAILY 09/17/2015 11/15/2015 Inactive Coumadin 5 mg tablet RxNorm: 543832 1 Tablet(s) PO QD 09/02/2015 12/08/2015 Inactive Wellbutrin XL 300 mg 24 hr tablet, extended release RxNorm: 678977 TAKE ONE TABLET BY MOUTH ONCE DAILY 08/01/2015 10/29/2015 Inactive Pepcid 20 mg tablet RxNorm: 937410 1 Tablet(s) PO BID as needed 07/15/2015 05/24/2017 Inactive warfarin 1 mg tablet RxNorm: 964204 TAKE ONE TABLET BY MOUTH ONCE DAILY 07/08/2015 11/03/2015 In active pravastatin 40 mg ta blet RxNorm: 370062 1 Tablet(s) PO QD 07/08/2015 10/05/2015 Inactive spironolactone 25 mg tablet RxNorm: 124060 TAKE ONE TABLET BY MO UT ONCE DAILY IN THE MORNING 06/13/2015 09/10/2015 Inactive Coumadin 5 mg tablet RxNorm: 768824 1 Tablet(s) PO QD 06/05/2015 09/02/2015 Inactive Wellbutrin XL 300 mg 24 hr tablet, extended release RxNorm: 376240 TAKE ONE TABLET BY MOUTH ONCE DAILY 05/16/2015 09/26/2018 Inactive Wellbutrin XL 300 mg 24 hr tablet, extended release RxNorm: 056007 TAKE ONE TABLET BY MOUTH ONCE DAILY 05/16/2015 06/14/2015 Inactive metformin ER 500 mg tablet,extended release 24 hr RxNorm: 992207 TAKE ONE TABLET BY MOUTH TWICE DAILY 05/16/2015 08/13/2015 Inactive pravastatin 40 mg ta blet RxNorm: 044435 1 Tablet(s) PO QD 04/10/2015 07/07/2015 Inactive Aciphex 20 mg tablet ,delayed release RxNorm: 977291 1 Tablet(s) PO BID 03/07/2015 09/02/2015 In active Omeprazole and Pepcid have not helped. Toprol XL 200 mg tab let,extended release RxNorm: 093219 1 Tablet(s) PO QD 03/05/2015 08/31/2015 In active Aciphex 20 mg tablet ,delayed release RxNorm: 779403 1 Tablet(s) PO QD 03/04/2015 03/06/2015 In active Omeprazole and Pepcid have not helped. Coumadin 5 mg tablet RxNorm: 640946 1 Tablet(s) PO QD 02/28/2015 05/28/2015 Inactive Aciphex 20 mg tablet ,delayed release RxNorm: 632133 1 Tablet(s) PO BID 02/11/2015 03/03/2015 In active Omeprazole and Pepcid have not helped. metformin ER 500 mg tablet,extended release 24 hr RxNorm: 071696 1 Tablet(s) PO BID 01/10/2015 04/09/2015 In active pravastatin 40 mg ta blet RxNorm: 552620 1 Tablet(s) PO QD 01/06/2015 04/05/2015 Inactive Wellbutrin XL 300 mg 24 hr tablet, extended release RxNorm: 834562 TAKE ONE TABLET BY MOUTH ONCE DAILY 12/19/2014 02/16/2015 Inactive amoxicillin 500 mg c apsule RxNorm: 511883 2 Capsule(s) PO BID 12/06/2014 12/15/2014 Inactive Flonase 50 mcg/actua tion nasal spray,suspension RxNorm: 742246 2 [place] each nostril NASAL QD 12/06/2014 03/05/2015 Inactive Coumadin 5 mg tablet RxNorm: 223942 1 Tablet(s) PO QD 11/28/2014 02/25/2015 Inactive spironolactone 25 mg tablet RxNorm: 512373 1 Tablet(s) PO QAM 11/26/2014 02/23/2015 Inactive Coumadin 5 mg tablet RxNorm: 881858 1 Tablet(s) PO QD 1 Tablet(s) PO QD- N EED TO CHECK LABS 10/30/2014 11/28/2014 Inactive warfarin 1 mg tablet RxNorm: 920277 1 Tablet(s) PO QD 10/30/2014 04/27/2015 Inactive Aciphex 20 mg tablet ,delayed release RxNorm: 976276 1 Tablet(s) PO QD 10/02/2014 02/10/2015 In active Omeprazole and Pepcid have not helped. Coumadin 5 mg tablet RxNorm: 073846 1 Tablet(s) PO QD 1 Tablet(s) PO QD- NEE D TO CHECK LABS 09/30/2014 10/30/2014 Inactive pravastatin 40 mg ta blet RxNorm: 494990 1 Tablet(s) PO QD 09/25/2014 01/06/2015 Inactive warfarin 1 mg tablet RxNorm: 173671 1 Tablet(s) PO QD TAKE ONE TABLET BY JOANN TH DIRECTED ON MON AND THUR 08/28/2014 10/29/2014 Inactive metformin ER 500 mg tablet,extended release 24 hr RxNorm: 965447 1 Tablet(s) PO BID 08/28/2014 01/10/2015 In active amoxicillin 875 mg t ablet RxNorm: 328713 1 Tablet(s) PO BID 08/09/2014 08/18/2014 Inactive Toprol XL 200 mg tab let,extended release RxNorm: 757279 TAKE ONE TABLET BY [facility] ONCE DAILY 07/22/2014 03/05/2015 Inactive Coumadin 5 mg tablet RxNorm: 014645 1 Tablet(s) PO QD 07/01/2014 09/30/2014 Inactive amoxicillin 875 mg t ablet RxNorm: 068217 1 Tablet(s) PO BID 06/24/2014 06/30/2014 Inactive pravastatin 40 mg ta blet RxNorm: 585301 1 Tablet(s) PO QD nee ds fasting labs 06/19/2014 09/25/2014 In active Coumadin 5 mg tablet RxNorm: 513020 1 Tablet(s) PO QD 1 Tablet(s) PO QD TAKE ONE TABLET BY MOUTH ONCE DAILY-need labs 05/28/2014 07/01/2014 Inactive warfarin 1 mg tablet RxNorm: 075196 1 Tablet(s) PO As Directed 05/28/2014 08/28/2014 Inactive pravastatin 40 mg ta blet RxNorm: 681428 1 Tablet(s) PO QD nee ds fasting labs 05/14/2014 06/19/2014 In active metformin ER 500 mg tablet,extended release 24 hr RxNorm: 505525 1 Tablet(s) PO BID 04/25/2014 08/28/2014 In active spironolactone 25 mg tablet RxNorm: 315406 1 Tablet(s) PO QAM 04/25/2014 11/26/2014 Inactive Coumadin 5 mg tablet RxNorm: 865251 1 Tablet(s) PO QD 1 Tablet(s) PO QD TAKE ONE TABLET BY MOUTH ONCE DAILY 04/23/2014 05/28/2014 Inactive Coumadin 5 mg tablet RxNorm: 476935 1 Tablet(s) PO QD 1 Tablet(s) PO QD TAKE ONE TABLET BY MOUTH ONCE DAILY 03/22/2014 04/20/2014 Inactive Tessalon Perles 100 mg capsule RxNorm: 121975 1 Capsule(s) PO TID 03/22/2014 03/28/2014 Inactive cefdinir 300 mg capsule RxNorm: 397586 2 Capsule(s) PO QD 03/22/2014 03/31/2014 Inactive Medrol (Dale) 4 mg ta blets in a dose pack RxNorm: 549617 Tablet(s) PO as [facility] 03/05/2014 08/08/2014 In active Coumadin 5 mg tablet RxNorm: 481344 1 Tablet(s) PO QD 1 Tablet(s) PO QD TAKE ONE TABLET BY MOUTH ONCE DAILY 02/19/2014 03/20/2014 Inactive pravastatin 40 mg ta blet RxNorm: 631378 1 Tablet(s) PO QD 02/04/2014 05/14/2014 Inactive Coumadin 5 mg tablet RxNorm: 601382 1 Tablet(s) PO QD TAKE ONE TABLET BY JOANN TH ONCE DAILY 01/21/2014 02/19/2014 Inactive Medrol (Dale) 4 mg ta blets in a dose pack RxNorm: 446806 Tablet(s) PO as [facility] 01/18/2014 03/04/2014 In active cefdinir 300 mg capsule RxNorm: 588521 2 Capsule(s) PO QD 01/16/2014 01/25/2014 Inactive metformin ER 500 mg tablet,extended release 24 hr RxNorm: 565934 1 Tablet(s) PO BID 12/17/2013 04/25/2014 In active Wellbutrin SR 150 mg tablet,sustained-release RxNorm: 291302 1 Tablet(s) PO BID 11/30/2013 02/27/2014 In active spironolactone 25 mg tablet RxNorm: 437214 1 Tablet(s) PO QAM 10/22/2013 04/25/2014 Inactive Macrobid 100 mg capsule RxNorm: 661239 1 Capsule(s) PO BID 10/19/2013 10/25/2013 Inactive Macrobid 100 mg capsule RxNorm: 109452 1 Capsule(s) PO BID 10/19/2013 10/18/2013 Inactive Toprol XL 100 mg tab let,extended release RxNorm: 978039 1 Tablet(s) PO QD 10/15/2013 01/15/2014 In active Toprol XL 200 mg tab let,extended release RxNorm: 415414 1 Tablet(s) PO QD 10/02/2013 07/22/2014 In active Wellbutrin XL 300 mg 24 hr tablet, extended release RxNorm: 007664 1 Tablet(s) PO QD 09/28/2013 12/19/2014 Inactive Aciphex 20 mg tablet ,delayed release RxNorm: 114288 1 Tablet(s) PO QD 08/29/2013 10/02/2014 In active Omeprazole and Pepcid have not helped. Coumadin 5 mg tablet RxNorm: 805965 1 Tablet(s) PO QD 08/14/2013 08/13/2013 Inactive Coumadin 5 mg tablet RxNorm: 982346 1 Tablet(s) PO QD 08/14/2013 01/21/2014 Inactive pravastatin 40 mg ta blet RxNorm: 716936 1 Tablet(s) PO QD 07/24/2013 02/04/2014 Inactive warfarin 1 mg tablet RxNorm: 619572 1 Tablet(s) PO QD TAKE ONE TABLET BY JOANN TH DIRECTED ON MON AND THUR 07/09/2013 05/28/2014 Inactive warfarin 5 mg tablet RxNorm: 074885 1 Tablet(s) PO QD TAKE ONE TABLET BY JOANN TH EVERY DAY 06/08/2013 07/07/2013 Inactive spironolactone 25 mg tablet RxNorm: 669908 1 Tablet(s) PO QAM 05/30/2013 10/15/2013 Inactive clindamycin 300 mg c apsule RxNorm: 004119 2 Capsule(s) PO TID 04/17/2013 04/30/2013 Inactive warfarin 5 mg tablet RxNorm: 470546 1 Tablet(s) PO QD 03/12/2013 06/08/2013 Inactive azithromycin 250 mg tablet RxNorm: 027128 2 Tablet(s) PO QD 03/02/2013 03/07/2013 Inactive metformin ER 500 mg tablet,extended release 24 hr RxNorm: 102581 1 Tablet(s) PO BID 02/22/2013 12/17/2013 In active spironolactone 25 mg tablet RxNorm: 653482 1 Tablet(s) PO QAM 01/22/2013 05/30/2013 Inactive metformin ER 500 mg tablet,extended release 24 hr RxNorm: 928259 1 Tablet(s) PO BID 01/11/2013 02/21/2013 In active pravastatin 40 mg ta blet RxNorm: 973400 1 Tablet(s) PO QD 01/11/2013 07/24/2013 Inactive warfarin 5 mg tablet RxNorm: 042183 1 Tablet(s) PO QD 01/04/2013 03/12/2013 Inactive warfarin 1 mg tablet RxNorm: 107637 Tablet(s) PO TAKE ONE TABLET BY MOUTH DIRECTED ON MON AND THUR 12/14/2012 07/08/2013 Inactive scopolamine 1.5 mg 7 2 hr Transderm Patch RxNorm: 113775 TD Apply 1 patch behi nd ear every 72 hours, replace after 3 days. 11/08/2012 01/15/2014 Inactive Pepcid 20 mg tablet RxNorm: 649152 1 Tablet(s) PO BID as needed 11/03/2012 01/31/2013 Inactive Famvir 500 mg tablet RxNorm: 101489 1 Tablet(s) PO Q8H 11/03/2012 11/09/2012 Inactive Aciphex 20 mg tablet ,delayed release RxNorm: 876638 1 Tablet(s) PO QD 11/03/2012 05/01/2013 In active Omeprazole and Pepcid have not helped. gabapentin 300 mg ca psule RxNorm: 665213 Capsule(s) PO TID 11/03/2012 01/15/2014 Inactive warfarin 5 mg tablet RxNorm: 012079 1 Tablet(s) PO QD 11/02/2012 01/04/2013 Inactive Wellbutrin XL 300 mg 24 hr tablet, extended release RxNorm: 107979 1 Tablet(s) PO QD 10/17/2012 04/30/2013 Inactive pravastatin 40 mg ta blet RxNorm: 036558 Tablet(s) PO TAKE ONE TABLET BY MOUTH EVERY DAY. NEED FASTING LABS 09/18/2012 01/10/2013 Inactive Toprol XL 200 mg tab let,extended release RxNorm: 003827 Tablet(s) PO TAKE ONE TABLET BY MOUTH EVERY DAY 09/08/2012 10/01/2013 Inactive warfarin 5 mg tablet RxNorm: 136878 1 Tablet(s) PO QD 08/31/2012 10/29/2012 Inactive pravastatin 40 mg ta blet RxNorm: 754500 1 Tablet(s) PO QD Nee ds fasting labs 08/18/2012 09/16/2012 In active TAKE ONE TABLET BY MOUTH EVERY DAY warfarin 1 mg tablet RxNorm: 575818 1 Tablet(s) PO As directed on Mon and Th urs 08/11/2012 12/13/2012 In active spironolactone 25 mg tablet RxNorm: 156503 1 Tablet(s) PO QAM 07/11/2012 10/08/2012 Inactive warfarin 5 mg tablet RxNorm: 904745 1 Tablet(s) PO QD 07/03/2012 08/31/2012 Inactive Diflucan 100 mg tablet RxNorm: 332165 1 Tablet(s) PO QD 05/04/2012 05/10/2012 Inactive Cipro 500 mg tablet RxNorm: 730735 1 Tablet(s) PO BID 05/04/2012 05/10/2012 Inactive Aciphex 20 mg tablet ,delayed release RxNorm: 348945 1 Tablet(s) PO QD 05/04/2012 07/02/2012 In active Omeprazole and Pepcid have not helped. warfarin 5 mg tablet RxNorm: 249310 1 Tablet(s) PO QD 05/02/2012 07/03/2012 Inactive warfarin 5 mg tablet RxNorm: 367159 1 Tablet(s) PO QD 03/02/2012 05/02/2012 Inactive Toprol XL 200 mg tab let,extended release RxNorm: 535631 1 Tablet(s) PO QD 03/02/2012 05/30/2012 In active spironolactone 25 mg tablet RxNorm: 357826 1 Tablet(s) PO QAM 02/08/2012 07/11/2012 Inactive pravastatin 40 mg ta blet RxNorm: 498795 Tablet(s) PO 01/31/2012 08/17/2012 Inactive TAKE ONE TABLET BY MOUTH EVERY DAY pravastatin 40 mg ta blet RxNorm: 999735 1 Tablet(s) PO QD 01/31/2012 08/18/2012 Inactive omeprazole 40 mg cap estela,delayed release RxNorm: 526420 1 Capsule(s) PO QD fo r stomach 01/11/2012 11/02/2012 Inactive for stomach warfarin 5 mg tablet RxNorm: 749825 1 Tablet(s) PO QD 01/03/2012 03/02/2012 Inactive warfarin 5 mg tablet RxNorm: 545734 1 Tablet(s) PO QD 12/03/2011 01/03/2012 Inactive pravastatin 40 mg ta blet RxNorm: 003524 1 Tablet(s) PO QD 11/25/2011 01/23/2012 Inactive cefdinir 300 mg Cap RxNorm: 063873 1 Capsule(s) PO BID 10/11/2011 10/20/2011 Inactive Culturelle 10 billio n cell Cap RxNorm: 033935 1 Capsule(s) PO BID 10/11/2011 11/09/2011 Inactive Diflucan 100 mg Tab RxNorm: 271862 1 Tablet(s) PO QD 10/11/2011 10/20/2011 Inactive Wellbutrin XL 300 mg 24 hr tablet, extended release RxNorm: 911716 1 Tablet(s) PO QD 09/14/2011 10/17/2012 Inactive pravastatin 40 mg ta blet RxNorm: 822281 1 Tablet(s) PO QD 08/25/2011 11/25/2011 Inactive Coumadin 5 mg tablet RxNorm: 319974 Tablet(s) PO Take as directed by doctor. 07/07/2011 12/03/2011 In active Singulair 10 mg Tab RxNorm: 208295 1 Tablet(s) PO QD allergy medication. (Emre castillo try to be consistent in dosing) 06/23/2011 01/15/2014 Inactive Diflucan 100 mg Tab RxNorm: 014243 1 Tablet(s) PO QD 06/14/2011 07/03/2011 Inactive cefdinir 300 mg Cap RxNorm: 260599 1 Capsule(s) PO BID 06/14/2011 06/23/2011 Inactive pravastatin 40 mg Tab RxNorm: 122508 1 Tablet(s) PO QD 05/25/2011 08/25/2011 Inactive warfarin 5 mg Tab RxNorm: 952637 Tablet(s) PO 05/25/2011 10/18/2011 Inactive TAKE ONE TABLET BY MOUTH EVERY DAY Toprol XL 200 mg tab let,extended release RxNorm: 342855 1 Tablet(s) PO QD 03/05/2011 06/02/2011 In active spironolactone 25 mg tablet RxNorm: 918166 1 Tablet(s) PO QAM 02/24/2011 02/08/2012 Inactive omeprazole 40 mg cap estela,delayed release RxNorm: 252472 1 Capsule(s) PO QD fo r stomach 01/06/2011 01/11/2012 Inactive for stomach warfarin 5 mg Tab RxNorm: 197935 1 Tablet(s) PO QD 12/17/2010 01/15/2011 Inactive warfarin 5 mg Tab RxNorm: 025732 1 Tablet(s) PO QD 11/18/2010 12/17/2010 Inactive spironolactone 25 mg Tab RxNorm: 488529 1 Tablet(s) PO QAM 11/12/2010 02/24/2011 Inactive Coumadin 6 mg Tab RxNorm: 349454 1 Tablet(s) PO QD 10/28/2010 11/16/2010 Inactive May have generic hydrochlorothiazide 25 mg Tab RxNorm: 396227 1 Tablet(s) PO QAM 10/13/2010 11/11/2010 Inactive Wellbutrin XL 300 mg 24 hr Tab RxNorm: 809343 1 Tablet(s) PO QD 09/09/2010 09/14/2011 Inactive Septra DS 800 mg-160 mg Tab RxNorm: 884497 1 Tablet(s) PO BID 06/08/2010 06/17/2010 Inactive Pyridium 100 mg Tab RxNorm: 1164074 1 Tablet(s) PO TID 06/08/2010 06/09/2010 Inactive Wellbutrin XL 300 mg 24 hr Tab RxNorm: 896507 1 Tablet(s) PO QD 05/21/2010 07/15/2010 Inactive hydroxyzine 25 mg Tab RxNorm: 831535 1 Tablet(s) PO QID prn itching--take rou tinely at bedtime. (pt. may not refil at this time but later) 05/20/2010 10/10/2011 Inactive Zyrtec 10 mg Tab RxNorm: 6688581 1 Tablet(s) PO BID 05/20/2010 05/29/2010 Inactive Coumadin 1 mg Tab RxNorm: 211638 1 Tablet(s) PO 6mg M-F, 7mg S-S 05/07/2010 11/16/2010 In active hydroxyzine 25 mg Tab RxNorm: 617032 1 Tablet(s) PO QID prn itching--take rou tinely at bedtime 04/30/2010 05/19/2010 Inactive Toprol XL 200 mg 24 hr Tab RxNorm: 619775 1 Tablet(s) PO QD 04/20/2010 06/23/2010 Inactive lisinopril-hydrochlo rothiazide 10 mg-12.5 mg Tab RxNorm: 369448 1 Tablet(s) PO QD 04/20/2010 04/29/2010 In active omeprazole 40 mg Cap , Delayed Release RxNorm: 527954 1 Capsule(s) PO QD fo r stomach 04/20/2010 08/17/2010 In active lisinopril-hydrochlo rothiazide 10 mg-12.5 mg Tab RxNorm: 119593 Tablet(s) PO 1QDAM - TAKE ONE TABLET BY MOUTH EVERY DAY IN THE MORNING 03/09/2010 04/29/2010 Inactive lisinopril-hydrochlo rothiazide 10 mg-12.5 mg Tab RxNorm: 192369 1 Tablet(s) PO QD 02/27/2010 04/20/2010 In active Wellbutrin XL 300 mg 24 hr Tab RxNorm: 925869 1 Tablet(s) PO QD 02/02/2010 05/21/2010 Inactive lisinopril-hydrochlo rothiazide 10 mg-12.5 mg Tab RxNorm: 967696 1 Tablet(s) PO QD 01/28/2010 02/26/2010 In active omeprazole 40 mg Cap , Delayed Release RxNorm: 853536 1 Capsule(s) PO QD fo r stomach 01/22/2010 04/20/2010 In active Altace 10 mg Cap RxNorm: 828040 1 Capsule(s) PO QD for BP 01/22/2010 03/22/2010 Inactive Coumadin 6 mg Tab RxNorm: 585283 1 Tablet(s) PO QD May have generic 12/03/2009 05/01/2010 In active Coumadin 6 mg Tab RxNorm: 771987 1 Tablet(s) PO 12/01/2009 12/02/2009 Inactive Coumadin 1 mg Tab RxNorm: 245409 1 Tablet(s) PO QD 11/28/2009 11/30/2009 Inactive Coumadin 1 mg Tab RxNorm: 127932 1 Tablet(s) PO QD 07/02/2009 11/27/2009 Inactive Flexeril 10 mg tablet RxNorm: 444859 1 Tablet(s) PO TID No Start Date Active spironolactone 25 mg tablet RxNorm: 315822 1 Tablet(s) PO QAM No Start Date Active lisinopril-hydrochlo rothiazide 20 mg-12.5 mg Tab RxNorm: 587920 2 Tablet(s) PO QAM No Start Date 10/12/2010 Inactive Zofran ODT 4 mg disi ntegrating tablet RxNorm: 262372 1 Tablet(s) PO Q6H as needed for nausea No Start Date 09/14/2016 Inactive Wellbutrin XL 300 mg 24 hr Tab RxNorm: 368836 1 Tablet(s) PO QD No Start Date 02/02/2010 Inactive alprazolam 0.25 mg t ablet RxNorm: 516848 1 Tablet(s) PO prior to flight No Start Date 05/24/2017 Inactive hydrocodone-acetamin ophen 5 mg-500 mg Tab RxNorm: 791948 1-2 Tablet(s) PO Q4H as needed for pain No Start Date 12/02/2010 Inactive Toprol XL 100 mg 24 hr Tab RxNorm: 804768 1 Tablet(s) PO QD No Start Date 10/14/2013 Inactive Celebrex 200 mg capsule RxNorm: 096487 1 Capsule(s) PO QD No Start Date 05/22/2017 Inactive scopolamine 1 mg ove r 3 days transdermal patch RxNorm: 905027 1 TD take off in 72 hours. No Start Date 07/31/2017 Inactive OneTouch Ultra Test strips RxNorm: Test blood sugar daily No Start Date 04/23/2018 Inactive Medrol (Dale) 4 mg ta blets in a dose pack RxNorm: 257756 Tablet(s) PO As direc brannon No Start Date 01/15/2014 Inactive Coumadin 5 mg Tab RxNorm: 160416 1 Tablet(s) PO QD No Start Date 07/06/2011 Inactive Pepcid 40 mg Tab RxNorm: 158017 1 Tablet(s) PO QD No Start Date 06/23/2010 Inactive prednisone 10 mg Tab RxNorm: 520615 1 Tablet(s) PO BID No Start Date 06/23/2010 Inactive spironolactone 25 mg tablet RxNorm: 229614 1 Tablet(s) PO QAM No Start Date 09/26/2018 Inactive scopolamine 1.5 mg 7 2 hr Transderm Patch RxNorm: 485905 TD Apply 1 patch behi nd ear every 72 hours, replace after 3 days. No Start Date 11/07/2012 Inactive azithromycin 250 mg Tab RxNorm: 137366 Tablet(s) PO 2 tabs on day one and one t ab on days 2-5. (antibiotic) No Start Date 10/10/2011 Inactive Medrol (Dale) 4 mg Ta bs in a Dose Pack RxNorm: 743314 1 Tablet(s) PO as dir ected. (steroid pack) No Start Date 10/10/2011 Inactive Lovenox 40 mg/0.4 mL subcutaneous syringe RxNorm: 634817 40 Milligram(s) SQ QD No Start Date 05/04/2018 Inactive Celebrex 200 mg capsule RxNorm: 498784 1 Capsule(s) PO BID as needed for pain No Start Date 01/13/2017 Inactive warfarin 1 mg tablet RxNorm: 145048 1 Tablet(s) PO As directed on Tue and urs No Start Date 08/10/2012 Inactive cefuroxime axetil 50 0 mg Tab RxNorm: 844950 1 Tablet(s) PO BID No Start Date 06/13/2011 Inactive Lovenox 40 mg/0.4 mL subcutaneous syringe RxNorm: 540678 40 Milligram(s) SQ QD No Start Date 01/26/2018 Inactive Coumadin 5 mg tablet RxNorm: 245459 1 Tablet(s) PO QD No Start Date 08/13/2013 Inactive Medrol (Dale) 4 mg ta blets in a dose pack RxNorm: 431381 Tablet(s) PO as direc brannon No Start Date 01/17/2014 Inactive Coumadin 6 mg tablet RxNorm: 818797 1 Tablet(s) PO QD No Start Date 06/20/2016 Inactive warfarin 5 mg tablet RxNorm: 679436 1 Tablet(s) PO QD No Start Date 12/02/2011 Inactive Medrol (Dale) 4 mg Ta bs in a Dose Pack RxNorm: 267998 Tablet(s) PO as direc brannon No Start Date 06/23/2010 Inactive Flonase 50 mcg/actua tion nasal spray,suspension RxNorm: 839450 2 [place] NASAL BID No Start Date 12/05/2014 Inactive Pepcid 20 mg tablet RxNorm: 077584 1 Tablet(s) PO BID as needed No Start Date 11/02/2012 Inactive Medication Administered No Medication Administered data Immunizations No Immunization data Assessments Condition Codes Effectiv e Dates Urinary tract infection, site not specified ICD-10: N39.0 ICD-9: 599.0 09/27/2018 Gastro-esophageal reflux disease without esophagitis ICD-10: K21.9 ICD-9: 530.81 09/27/2018 Ventral hernia without obstruction or gangrene ICD-10: K43.9 ICD-9: 553.20 09/27/2018 Primary insomnia ICD-10: F51.01 ICD-9: 780.52 04/24/2018 Type 2 diabetes mellitus without complications ICD-10: E11.9 ICD-9: 250.00 04/24/2018 Carpal tunnel syndrome, right upper limb ICD-10: G56.01 ICD-9: 354.0 04/24/2018 Essential (primary) hypertension ICD -10: I10 ICD-9: 401.9 04/24/2018 Mixed hyperlipidemia ICD-10: E78.2 ICD-9: 272.4 12/27/2017 Pain in unspecified joint ICD-10: M2 5.50 ICD-9: 719.40 12/27/2017 Encounter for other screening for malign ant neoplasm of breast ICD-10: Z12.39 ICD-9: V76.10 12/19/2017 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 ICD-10: Z79.01 ICD-9: V58.61 12/16/2017 Encounter for general adult medical exam ination without abnormal findings ICD-10: Z00.00 ICD-9: V70.0 12/16/2017 Dyspnea, unspecified ICD-10: R06.00 ICD-9: 786.09 10/17/2017 Personal history of pulmonary embolism ICD-10: Z86.711 ICD-9: V12.55 10/17/2017 Hematuria, unspecified ICD-10: R31.9 ICD-9: 599.70 10/13/2017 Pleurodynia ICD-10: R07.81 ICD-9: 786.50 10/12/2017 Acute bronchitis, unspecified ICD-10 : J20.9 ICD-9: 466.0 09/16/2017 Tachycardia, unspecified ICD-10: R00 .0 ICD-9: 785.0 05/25/2017 Cellulitis of neck ICD-10: L03.221 ICD-9: 682.1 05/25/2017 Other specified postprocedural states ICD-10: Z98.890 ICD-9: V45.89 05/25/2017 Pain in unspecified joint ICD-10: M2 5.50 ICD-9: 719.49 01/03/2017 Lumbago with sciatica, right side IC D-10: M54.41 ICD-9: 724.2 01/03/2017 Low back pain ICD-10: M54.5 ICD-9: 724.2 10/07/2016 Bitten or stung by nonvenomous insect an d other nonvenomous arthropods, subsequent encounter ICD-10: W57.XXXD ICD-9: E906.4 09/23/2016 Bitten or stung by nonvenomous insect an d other nonvenomous arthropods, initial encounter ICD-10: W57.XXXA ICD-9: 919.4 09/03/2016 Radiculopathy, lumbosacral region IC D-10: M54.17 ICD-9: 724.4 07/08/2016 Acute pharyngitis, unspecified ICD-1 0: J02.9 ICD-9: 462 06/21/2016 Fever, unspecified ICD-10: R50.9 ICD-9: 780.60 02/23/2016 Cough ICD-10: R05 ICD-9: 786.2 02/23/2016 Acute sinusitis, unspecified ICD-10: J01.90 ICD-9: 461.9 02/16/2016 Other disorders of facial nerve ICD- 10: G51.8 ICD-9: 351.8 01/28/2015 SINUSITIS, ACUTE ICD-9: 461.9 12/06/2014 TONSILLITIS, ACUTE ICD-9: 463 06/24/2014 COUGH ICD-9: 786.2 03/22 EUSTACHIAN TUBE DYSFUNCTION ICD-9: 381.81 03/22/2014 Elbow pain, right ICD-9: 719.42 03/05/2014 GROSS HEMATURIA ICD-9: 599.71 10/19/2013 DM W/O COMPLICATION TYPE II ICD-9: 250.00 05/10/2013 HYPERLIPIDEMIA NEC/NOS ICD-9: 272.4 05/10/2013 OTITIS MEDIA NOS ICD-9: 382.9 03/05/2013 BRONCHITIS, ACUTE ICD-9: 466.0 03/02/2013 DM W/O COMPLICATION TYPE II, UNCONTROLLED ICD-9: 250.02 02/22/2013 ROUTINE MEDICAL EXAM ICD-9: V70.0 01/11/2013 HYPERTENSION ICD-9: 401.9 01/11/2013 HZ (HERPES ZOSTER) ICD-9: 053.9 11/03/2012 GERD ICD-9: 530.81 05/04 PHARYNGITIS, ACUTE ICD-9: 462 05/04/2012 URINARY TRACT INFECTION ICD-9: 599.0 05/04/2012 ALLERGIC RHINITIS ICD-9: 477.9 06/23/2011 DERMATITIS NOS ICD-9: 692.9 11/12/2010 ABDOMINAL PAIN ICD-9: 789.00 06/24/2010 Dysuria ICD-9: 788.1 01/2011 PAIN, LOWER BACK ICD-9: 724.2 05/29/2010 URTICARIA ICD-9: 708.9 0 05/20/2010 CHEST PAIN NOS ICD-9: 786.50 04/30/2010 DEPRESSIVE DISORDER NEC ICD-9: 311 01/22/2010 CEPHALGIA ICD-9: 784.0 1 03/24/2009 Reason For Visit Reason For Visit Effective Dates Notes gastroesophageal reflux 09/27/2018 follow up 04/24/2018 Celena mix states her insurance has changed and celebrex should be covered at twice daily now follow up 12/27/2017 Celena mix taking metformin 500mg 1-2 daily back pain 10/13/2017 dyspnea 10/12/2017 cough 09/16/2017 Patient has had ongoing cough for 1 week-described as dry, hacking and unable to sleep at night. Last night, left ear started hurting. Patient taking otc cough drops, but doesn't seem to help follow up 05/25/2017 Celena mix had spinal stenosis to cervical spine - Dr Raines performed neck surgery at that time. Patient had infection to the site- Patient currently on ciprofloxacin 750mg BID- Patient is also seeing infectious disease for recurrent infections. follow up 01/03/2017 follow up 09/23/2016 tick bite 09/03/2016 Celena mix pulled tick pulled off of upper back on 08/13/16 while camping around [place], [place]. Patient states is tender around tick bite, but no other symptoms back pain 07/08/2016 sore throat 06/21/2016 jacqueline bentley in family with Influenza B+ cough 02/23/2016 sinus congestion 02/16/2016 follow up 02/11/2015 Dis cuss Labs pain, generalized 01/28/2015 sinusitis 12/06/2014 sinusitis 08/09/2014 sore throat 06/24/2014 chest congestion 03/22/2014 elbow pain 03/05/2014 sinusitis 01/16/2014 flank pain 10/19/2013 follow up 05/10/2013 2mo fwup otalgia 04/17/2013 follow up 03/05/2013 follow up 03/02/2013 1 D ay otalgia 03/01/2013 follow up 02/22/2013 6wk fwup follow up 01/11/2013 Dis cuss recent wellness labs rash 11/03/2012 gastroesophageal reflux 05/04/2012 sore throat 10/11/2011 sinus congestion 06/23/2011 sinus congestion 06/14/2011 sore throat 12/02/2010 p ain in throat follow up 11/12/2010 dis cuss labs, holding coumadin and is to recheck next Tuesday high blood pressure 10/13/2010 increased since had to stop Lisinopril HCT follow up 06/24/2010 hos pital fwup, still on Septra DS and Levaquin ~generic 06/08/2010 Has positive UTI from a week ago Tuesday, never had Rx [...] works well. rash 04/30/2010 rash on bilateral arms and legs x 1 week. rash sensation is itchy with "electrical shocks" . patient complains also of generalized itching but no rash. headache 01/22/2010 Results Observation Observation Code Item Item Code Result Date MICROALBUMIN URINE RANDOM 57908 CREAT MG/D 139 MG/DL 01/11/2013 MICROALBUMIN URINE RANDOM 14619 CRE/100 1.39 G/L 01/11/2013 Review of Systems System Result Effective Dates Gastrointestinal gastroesophageal reflux 09/27/2018 Genitourinary/Nephrology dysuria 09/27/2018 Gastrointestinal No hemorrhoids 04/24/2018 Gastrointestinal No hepatitis 04/24/2018 Gastrointestinal No abdominal pain 04/24/2018 Gastrointestinal No constipation 04/24/2018 Gastrointestinal No diarrhea 04/24/2018 Gastrointestinal No gastroesophageal reflu x 04/24/2018 Gastrointestinal No melena 04/24/2018 Gastrointestinal No nausea 04/24/2018 Gastrointestinal No vomiting 04/24/2018 Constitutional fatigue 1 Musculoskeletal arthralgia(s) 12/27/2017 Musculoskeletal myalgias 12/27/2017 Musculoskeletal muscle weakness 12/27/2017 Cardiovascular No arrhythmia 12/27/2017 Cardiovascular No chest pain/pressure 12/27/2017 Cardiovascular No edema 12/27/2017 Cardiovascular No exercise intolerance 12/27/2017 Cardiovascular No orthopnea 12/27/2017 Cardiovascular No palpitations 12/27/2017 Respiratory No asthma Respiratory No cough 11/2017 Respiratory No dyspnea 1 Respiratory No pleuritic pain 12/27/2017 Respiratory No productive sputum 12/27/2017 Respiratory No wheezing 12/27/2017 Gastrointestinal No hemorrhoids 12/27/2017 Gastrointestinal No hepatitis 12/27/2017 Gastrointestinal No abdominal pain 12/27/2017 Gastrointestinal No constipation 12/27/2017 Gastrointestinal No diarrhea 12/27/2017 Gastrointestinal No gastroesophageal reflu x 12/27/2017 Gastrointestinal No melena 12/27/2017 Gastrointestinal No nausea 12/27/2017 Gastrointestinal No vomiting 12/27/2017 Genitourinary/Nephrology No dysuria 12/27/2017 Genitourinary/Nephrology No nocturia 12/27/2017 Genitourinary/Nephrology No urinary incontinence 12/27/2017 Dermatologic No rash 11/2017 Dermatologic No scar 11/2017 Neurologic No dizziness 12/27/2017 Neurologic No headache 1 Neurologic No neck pain 12/27/2017 Neurologic No syncope Psychiatric No anxiety 1 Psychiatric No depression 12/27/2017 Endocrine No goiter 10/0 11/2017 Endocrine hyperglycemia 12/27/2017 Endocrine No hypoglycemia 12/27/2017 Endocrine hyperlipidemia 12/27/2017 Respiratory No cough Respiratory No chest tightness 10/12/2017 Respiratory dyspnea on exertion 10/12/2017 Constitutional No fever 10/12/2017 Constitutional fatigue 0 10/12/2017 Constitutional No chills 10/12/2017 Dermatologic No rash Cardiovascular No chest pain/pressure 10/12/2017 Cardiovascular No edema 10/12/2017 Respiratory No wheezing 10/12/2017 Respiratory No productive sputum 10/12/2017 Respiratory pleuritic pain 10/12/2017 Respiratory cough 2017 Respiratory No chest tightness 09/16/2017 Respiratory No chest congestion 09/16/2017 Respiratory No dyspnea on exertion 09/16/2017 Constitutional fatigue 0 09/16/2017 Constitutional No fever 09/16/2017 Constitutional No chills 09/16/2017 Ears/Nose/Throat/Neck No nasal discharge 09/16/2017 Ears/Nose/Throat/Neck otalgia 09/16/2017 Ears/Nose/Throat/Neck No postnasal drip 09/16/2017 Ears/Nose/Throat/Neck No sinus congestion 09/16/2017 Ears/Nose/Throat/Neck No sinusitis 09/16/2017 Ears/Nose/Throat/Neck No sore throat 09/16/2017 Musculoskeletal myalgias 09/16/2017 Neurologic neck pain 09/2017 Dermatologic cellulitis 05/25/2017 Constitutional fatigue 0 05/25/2017 Musculoskeletal back pain 01/03/2017 Musculoskeletal low back pain 01/03/2017 Musculoskeletal neck pain 01/03/2017 Constitutional No night sweats 09/23/2016 Constitutional fatigue 0 09/23/2016 Constitutional No fever 09/23/2016 Constitutional No insomnia 09/23/2016 Constitutional No weight loss 09/23/2016 Eyes No eye pain 017 Eyes No photophobia 08/2016 Eyes No vision change Eyes No visual disturbance 09/23/2016 Ears/Nose/Throat/Neck No hearing loss 09/23/2016 Ears/Nose/Throat/Neck No nasal discharge 09/23/2016 Ears/Nose/Throat/Neck No sinus congestion 09/23/2016 Ears/Nose/Throat/Neck No sore throat 09/23/2016 Cardiovascular No arrhythmia 09/23/2016 Cardiovascular No chest pain/pressure 09/23/2016 Cardiovascular No edema 09/23/2016 Cardiovascular No exercise intolerance 09/23/2016 Cardiovascular No orthopnea 09/23/2016 Cardiovascular No palpitations 09/23/2016 Respiratory No asthma Respiratory No cough 08/2016 Respiratory No dyspnea 0 09/23/2016 Respiratory No pleuritic pain 09/23/2016 Respiratory No productive sputum 09/23/2016 Respiratory No wheezing 09/23/2016 Gastrointestinal No hemorrhoids 09/23/2016 Gastrointestinal No hepatitis 09/23/2016 Gastrointestinal No abdominal pain 09/23/2016 Gastrointestinal No constipation 09/23/2016 Gastrointestinal No diarrhea 09/23/2016 Gastrointestinal gastroesophageal reflux 09/23/2016 Gastrointestinal No melena 09/23/2016 Gastrointestinal No nausea 09/23/2016 Gastrointestinal No vomiting 09/23/2016 Genitourinary/Nephrology No dysuria 09/23/2016 Genitourinary/Nephrology No nocturia 09/23/2016 Genitourinary/Nephrology No urinary incontinence 09/23/2016 Musculoskeletal No muscle weakness 09/23/2016 Musculoskeletal myalgias 09/23/2016 Musculoskeletal No stiffness 09/23/2016 Musculoskeletal No swelling 09/23/2016 Dermatologic No rash 08/2016 Dermatologic No scar 08/2016 Dermatologic arthropod bite 09/23/2016 Neurologic No dizziness 09/23/2016 Neurologic No neck pain 09/23/2016 Neurologic No syncope Neurologic No headache 0 09/23/2016 Psychiatric No anxiety 0 09/23/2016 Psychiatric No depression 09/23/2016 Endocrine No goiter 08/2016 Endocrine No hyperglycemia 09/23/2016 Endocrine No hypoglycemia 09/23/2016 Hematologic/Lymphatic No abnormal ec chymoses 09/23/2016 Hematologic/Lymphatic No petechiae 09/23/2016 Hematologic/Lymphatic No abnormal bl eeding and bruising 09/23/2016 Hematologic/Lymphatic No anemia 09/23/2016 Hematologic/Lymphatic No lymph node enlargement/mass 09/23/2016 Allergy/Immunology No food allergy 09/23/2016 Constitutional No fever 09/03/2016 Constitutional No fatigue 09/03/2016 Constitutional No malaise 09/03/2016 Dermatologic No rash Dermatologic tick bite 0 09/03/2016 Musculoskeletal No arthralgia(s) 09/03/2016 Constitutional No night sweats 07/08/2016 Constitutional No fatigue 07/08/2016 Constitutional No fever 07/08/2016 Constitutional No insomnia 07/08/2016 Constitutional No weight loss 07/08/2016 Eyes No eye pain 017 Eyes No photophobia 06/20 Eyes No vision change Eyes No visual disturbance 07/08/2016 Ears/Nose/Throat/Neck No hearing loss 07/08/2016 Ears/Nose/Throat/Neck No nasal discharge 07/08/2016 Ears/Nose/Throat/Neck No sinus congestion 07/08/2016 Ears/Nose/Throat/Neck No sore throat 07/08/2016 Cardiovascular No arrhythmia 07/08/2016 Cardiovascular No chest pain/pressure 07/08/2016 Cardiovascular No edema 07/08/2016 Cardiovascular No exercise intolerance 07/08/2016 Cardiovascular No orthopnea 07/08/2016 Cardiovascular No palpitations 07/08/2016 Respiratory No asthma Respiratory No cough Respiratory No dyspnea 0 07/08/2016 Respiratory No pleuritic pain 07/08/2016 Respiratory No productive sputum 07/08/2016 Respiratory No wheezing 07/08/2016 Gastrointestinal No hemorrhoids 07/08/2016 Gastrointestinal No hepatitis 07/08/2016 Gastrointestinal No abdominal pain 07/08/2016 Gastrointestinal No constipation 07/08/2016 Gastrointestinal No diarrhea 07/08/2016 Gastrointestinal No gastroesophageal reflu x 07/08/2016 Gastrointestinal No melena 07/08/2016 Gastrointestinal No nausea 07/08/2016 Gastrointestinal No vomiting 07/08/2016 Genitourinary/Nephrology No dysuria 07/08/2016 Genitourinary/Nephrology No nocturia 07/08/2016 Genitourinary/Nephrology No urinary incontinence 07/08/2016 Musculoskeletal No muscle weakness 07/08/2016 Musculoskeletal No myalgias 07/08/2016 Musculoskeletal No stiffness 07/08/2016 Musculoskeletal No swelling 07/08/2016 Dermatologic No rash Dermatologic No scar Neurologic No dizziness 07/08/2016 Neurologic No headache 0 07/08/2016 Neurologic No neck pain 07/08/2016 Neurologic No syncope Psychiatric No anxiety 0 07/08/2016 Psychiatric No depression 07/08/2016 Endocrine No goiter 06/20 Endocrine No hyperglycemia 07/08/2016 Endocrine No hypoglycemia 07/08/2016 Hematologic/Lymphatic No abnormal ec chymoses 07/08/2016 Hematologic/Lymphatic No petechiae 07/08/2016 Hematologic/Lymphatic No abnormal bl eeding and bruising 07/08/2016 Hematologic/Lymphatic No anemia 07/08/2016 Hematologic/Lymphatic No lymph node enlargement/mass 07/08/2016 Allergy/Immunology No food allergy 07/08/2016 Constitutional No night sweats 06/21/2016 Constitutional fatigue 0 06/21/2016 Constitutional No insomnia 06/21/2016 Constitutional No weight loss 06/21/2016 Ears/Nose/Throat/Neck sore throat 06/21/2016 Respiratory No asthma Respiratory No cough 05/2016 Respiratory No dyspnea 0 06/21/2016 Respiratory No pleuritic pain 06/21/2016 Respiratory No productive sputum 06/21/2016 Respiratory No wheezing 06/21/2016 Musculoskeletal myalgias 06/21/2016 Neurologic No dizziness 06/21/2016 Neurologic No headache 0 06/21/2016 Neurologic No neck pain 06/21/2016 Neurologic No syncope Constitutional night sweats 02/23/2016 Constitutional anorexia 02/23/2016 Constitutional chills Constitutional diaphoresis 02/23/2016 Constitutional fever 07/2015 Constitutional fatigue 1 04/25/2015 Eyes No eye pain 016 Eyes No photophobia 07/2015 Eyes No vision change Eyes No visual disturbance 02/23/2016 Ears/Nose/Throat/Neck No hearing loss 02/23/2016 Ears/Nose/Throat/Neck No nasal discharge 02/23/2016 Ears/Nose/Throat/Neck No sinus congestion 02/23/2016 Ears/Nose/Throat/Neck No sore throat 02/23/2016 Ears/Nose/Throat/Neck No otalgia 02/23/2016 Ears/Nose/Throat/Neck No otorrhea 02/23/2016 Ears/Nose/Throat/Neck postnasal drip 02/23/2016 Cardiovascular No arrhythmia 02/23/2016 Cardiovascular No chest pain/pressure 02/23/2016 Cardiovascular No edema 02/23/2016 Cardiovascular No exercise intolerance 02/23/2016 Cardiovascular No orthopnea 02/23/2016 Cardiovascular No palpitations 02/23/2016 Respiratory cough 2015 Respiratory dyspnea 12/07/2015 Respiratory No pleuritic pain 02/23/2016 Respiratory productive sputum 02/23/2016 Respiratory wheezing 07/2015 Respiratory chest congestion 02/23/2016 Respiratory chest tightness 02/23/2016 Dermatologic No rash 07/2015 Dermatologic No scar 07/2015 Hematologic/Lymphatic No abnormal ec chymoses 02/23/2016 Hematologic/Lymphatic No petechiae 02/23/2016 Hematologic/Lymphatic No abnormal bl eeding and bruising 02/23/2016 Hematologic/Lymphatic No anemia 02/23/2016 Hematologic/Lymphatic No lymph node enlargement/mass 02/23/2016 Constitutional fatigue 1 04/17/2015 Ears/Nose/Throat/Neck sinus congestion 02/16/2016 Ears/Nose/Throat/Neck sinusitis 02/16/2016 Respiratory No asthma Respiratory No cough Respiratory No dyspnea 1 04/17/2015 Respiratory No pleuritic pain 02/16/2016 Respiratory No productive sputum 02/16/2016 Respiratory No wheezing 02/16/2016 Neurologic headache 01/20 Cardiovascular hypertension 02/11/2015 Gastrointestinal gastroesophageal reflux 02/11/2015 Cardiovascular chest pain/pressure 01/28/2015 Neurologic No headache 1 03/30/2014 Neurologic No mental status change 01/28/2015 Neurologic No memory loss 01/28/2015 Neurologic No alteration of consciousness 01/28/2015 Neurologic paresthesia 1 03/30/2014 Dermatologic No rash 12/2014 Constitutional chills Constitutional anorexia 12/06/2014 Constitutional recent illness 12/06/2014 Constitutional fatigue 0 12/06/2014 Constitutional fever Constitutional insomnia 12/06/2014 Constitutional malaise 0 12/06/2014 Ears/Nose/Throat/Neck facial pain 12/06/2014 Ears/Nose/Throat/Neck headache 12/06/2014 Ears/Nose/Throat/Neck No nasal allergies 12/06/2014 Ears/Nose/Throat/Neck nasal discharge 12/06/2014 Ears/Nose/Throat/Neck No otalgia 12/06/2014 Ears/Nose/Throat/Neck postnasal drip 12/06/2014 Ears/Nose/Throat/Neck sinus congestion 12/06/2014 Respiratory cough 2014 Respiratory No cigarette smoking 12/06/2014 Respiratory No passive smoking 12/06/2014 Gastrointestinal No constipation 12/06/2014 Gastrointestinal diarrhea 12/06/2014 Gastrointestinal anorexia 12/06/2014 Constitutional No fever 08/09/2014 Constitutional fatigue 0 08/09/2014 Constitutional anorexia 08/09/2014 Constitutional insomnia 08/09/2014 Ears/Nose/Throat/Neck facial pain 08/09/2014 Ears/Nose/Throat/Neck No headache 08/09/2014 Ears/Nose/Throat/Neck nasal discharge 08/09/2014 Ears/Nose/Throat/Neck otalgia 08/09/2014 Ears/Nose/Throat/Neck postnasal drip 08/09/2014 Ears/Nose/Throat/Neck sinus congestion 08/09/2014 Ears/Nose/Throat/Neck sore throat 08/09/2014 Respiratory No cigarette smoking 08/09/2014 Respiratory cough 2014 Respiratory dyspnea on exertion 08/09/2014 Constitutional No fever 06/24/2014 Ears/Nose/Throat/Neck sore throat 06/24/2014 Respiratory chest congestion 03/22/2014 Respiratory cough 2014 Ears/Nose/Throat/Neck otalgia 03/22/2014 Constitutional No fever 03/22/2014 Constitutional malaise 0 03/22/2014 Ears/Nose/Throat/Neck sore throat 03/22/2014 Musculoskeletal joint complaint 03/05/2014 Constitutional fatigue 1 Ears/Nose/Throat/Neck sinus congestion 01/16/2014 Ears/Nose/Throat/Neck sinusitis 01/16/2014 Respiratory No asthma Respiratory No cough Respiratory No dyspnea 1 Respiratory No pleuritic pain 01/16/2014 Respiratory No productive sputum 01/16/2014 Respiratory No wheezing 01/16/2014 Neurologic headache 12/20 Ears/Nose/Throat/Neck sinusitis 04/17/2013 Ears/Nose/Throat/Neck sinus congestion 04/17/2013 Respiratory cough 2013 Constitutional fatigue 0 04/17/2013 Respiratory cough 2012 Constitutional No fever 03/05/2013 Ears/Nose/Throat/Neck No headache 03/05/2013 Ears/Nose/Throat/Neck No otalgia 03/05/2013 Constitutional fatigue 1 05/06/2012 Constitutional No fever 03/02/2013 Constitutional fatigue 1 05/03/2012 Respiratory cough 2012 Ears/Nose/Throat/Neck headache 03/02/2013 Ears/Nose/Throat/Neck otalgia 03/02/2013 Constitutional fatigue 1 05/02/2012 Constitutional malaise 1 05/02/2012 Ears/Nose/Throat/Neck headache 03/01/2013 Ears/Nose/Throat/Neck sore throat 03/01/2013 Ears/Nose/Throat/Neck otalgia 03/01/2013 Respiratory cough 2012 Respiratory dyspnea on exertion 03/01/2013 Endocrine hyperlipidemia 02/22/2013 Endocrine diabetes mellitus type 2 02/22/2013 Cardiovascular No arrhythmia 02/22/2013 Cardiovascular No chest pain/pressure 02/22/2013 Cardiovascular No edema 02/22/2013 Cardiovascular No exercise intolerance 02/22/2013 Cardiovascular No orthopnea 02/22/2013 Cardiovascular No palpitations 02/22/2013 Constitutional fatigue 1 Constitutional weight gain/obesity 01/11/2013 Endocrine No goiter 12/20 Endocrine hyperglycemia 01/11/2013 Endocrine No hypoglycemia 01/11/2013 Endocrine hyperlipidemia 01/11/2013 Cardiovascular hypertension 01/11/2013 Respiratory No asthma Respiratory No cough Respiratory No dyspnea 1 Respiratory No pleuritic pain 01/11/2013 Respiratory No productive sputum 01/11/2013 Respiratory No wheezing 01/11/2013 Gastrointestinal No hemorrhoids 01/11/2013 Gastrointestinal No hepatitis 01/11/2013 Gastrointestinal No abdominal pain 01/11/2013 Gastrointestinal No constipation 01/11/2013 Gastrointestinal No diarrhea 01/11/2013 Gastrointestinal No gastroesophageal reflu x 01/11/2013 Gastrointestinal No melena 01/11/2013 Gastrointestinal No nausea 01/11/2013 Gastrointestinal No vomiting 01/11/2013 Genitourinary/Nephrology No dysuria 01/11/2013 Genitourinary/Nephrology No nocturia 01/11/2013 Genitourinary/Nephrology No urinary incontinence 01/11/2013 Musculoskeletal No muscle weakness 01/11/2013 Musculoskeletal No myalgias 01/11/2013 Musculoskeletal No stiffness 01/11/2013 Musculoskeletal No swelling 01/11/2013 Dermatologic No rash Dermatologic No scar Neurologic No dizziness 01/11/2013 Neurologic headache 12/20 Neurologic No neck pain 01/11/2013 Neurologic No syncope Psychiatric No anxiety 1 Psychiatric No depression 01/11/2013 Constitutional insomnia 11/03/2012 Constitutional fatigue 0 11/03/2012 Constitutional No fever 11/03/2012 Dermatologic rash 2012 Musculoskeletal No muscle weakness 11/03/2012 Musculoskeletal No myalgias 11/03/2012 Musculoskeletal No stiffness 11/03/2012 Musculoskeletal No swelling 11/03/2012 Constitutional No fever 05/04/2012 Ears/Nose/Throat/Neck No nasal discharge 05/04/2012 Ears/Nose/Throat/Neck No otalgia 05/04/2012 Ears/Nose/Throat/Neck No sore throat 05/04/2012 Respiratory No cough Gastrointestinal gastroesophageal reflux 05/04/2012 Dermatologic No rash Dermatologic No sores Genitourinary/Nephrology flank pain 05/04/2012 Constitutional No fever 10/11/2011 Ears/Nose/Throat/Neck No nasal discharge 10/11/2011 Ears/Nose/Throat/Neck No otalgia 10/11/2011 Ears/Nose/Throat/Neck No sinus congestion 10/11/2011 Ears/Nose/Throat/Neck sore throat 10/11/2011 Respiratory cough 2011 Gastrointestinal No abdominal pain 10/11/2011 Gastrointestinal No diarrhea 10/11/2011 Gastrointestinal No dyspepsia 10/11/2011 Dermatologic No rash Dermatologic No sores Constitutional No fever 06/23/2011 Ears/Nose/Throat/Neck sinusitis 06/23/2011 Ears/Nose/Throat/Neck No sore throat 06/23/2011 Respiratory cough 2011 Respiratory No cigarette smoking 06/23/2011 Gastrointestinal No diarrhea 06/23/2011 Gastrointestinal No constipation 06/23/2011 Gastrointestinal nausea 06/23/2011 Gastrointestinal No vomiting 06/23/2011 Dermatologic No rash 06/2011 Dermatologic No sores Ears/Nose/Throat/Neck No nasal discharge 06/23/2011 Ears/Nose/Throat/Neck No nasal allergies 06/23/2011 Constitutional No fever 06/14/2011 Constitutional chills Ears/Nose/Throat/Neck sore throat 06/14/2011 Ears/Nose/Throat/Neck sinus congestion 06/14/2011 Ears/Nose/Throat/Neck otalgia 06/14/2011 Ears/Nose/Throat/Neck nasal discharge 06/14/2011 Respiratory cough 2011 Respiratory No cigarette smoking 06/14/2011 Respiratory No asthma Gastrointestinal No diarrhea 06/14/2011 Gastrointestinal No constipation 06/14/2011 Gastrointestinal No vomiting 06/14/2011 Gastrointestinal No nausea 06/14/2011 Dermatologic No rash Constitutional No fever 12/02/2010 Ears/Nose/Throat/Neck nasal discharge 12/02/2010 Ears/Nose/Throat/Neck otalgia 12/02/2010 Ears/Nose/Throat/Neck sinus congestion 12/02/2010 Ears/Nose/Throat/Neck sore throat 12/02/2010 Respiratory No cough Gastrointestinal diarrhea 12/02/2010 Gastrointestinal No dyspepsia 12/02/2010 Gastrointestinal No constipation 12/02/2010 Gastrointestinal No nausea 12/02/2010 Dermatologic No rash Dermatologic No sores Dermatologic rash 2010 Cardiovascular hypertension 11/12/2010 Endocrine hyperlipidemia 11/12/2010 Constitutional fatigue 0 10/13/2010 Cardiovascular edema Cardiovascular hypertension 10/13/2010 Gastrointestinal No hemorrhoids 10/13/2010 Gastrointestinal No hepatitis 10/13/2010 Gastrointestinal No abdominal pain 10/13/2010 Gastrointestinal No constipation 10/13/2010 Gastrointestinal No diarrhea 10/13/2010 Gastrointestinal No gastroesophageal reflu x 10/13/2010 Gastrointestinal No melena 10/13/2010 Gastrointestinal No nausea 10/13/2010 Gastrointestinal No vomiting 10/13/2010 Gastrointestinal abdominal pain 06/24/2010 Constitutional No fever 06/08/2010 Genitourinary/Nephrology urinary frequency 06/08/2010 Genitourinary/Nephrology No urinary urgenc y 06/08/2010 Genitourinary/Nephrology No urinary incontinence 06/08/2010 Genitourinary/Nephrology No 06/08/2010 Respiratory No cough Ears/Nose/Throat/Neck No otalgia 06/08/2010 Ears/Nose/Throat/Neck No sore throat 06/08/2010 Dermatologic No sores Dermatologic No rash Gastrointestinal No diarrhea 06/08/2010 Gastrointestinal No constipation 06/08/2010 Gastrointestinal abdominal pain 06/08/2010 Gastrointestinal nausea 06/08/2010 Gastrointestinal No vomiting 06/08/2010 Constitutional No fever 05/20/2010 Constitutional No recent illness 05/20/2010 Ears/Nose/Throat/Neck No nasal discharge 05/20/2010 Ears/Nose/Throat/Neck No otalgia 05/20/2010 Ears/Nose/Throat/Neck No sore throat 05/20/2010 Respiratory No cough 04/2010 Respiratory No cigarette smoking 05/20/2010 Gastrointestinal gastroesophageal reflux 05/20/2010 Gastrointestinal No nausea 05/20/2010 Gastrointestinal No vomiting 05/20/2010 Dermatologic rash 2010 Psychiatric No anxiety 0 05/20/2010 Psychiatric stress 05/20 Psychiatric No depression 05/20/2010 Dermatologic No sores Dermatologic dry skin Neurologic headache 04/21 Neurologic dizziness 12/2010 Cardiovascular hypertension 04/30/2010 Cardiovascular chest pain/pressure 04/30/2010 Neurologic headache 06/2009 Neurologic dizziness 06/2009 Cardiovascular hypertension 01/22/2010 Psychiatric depression 1 03/24/2009 Physical Exam Exam Name System Name It em Name Status Result Effective Dates Notes Full Exam - General Constitutional general appearance Overall: well nourished 09/27/2018 None Full Exam - General Constitutional general appearance Overall: well developed 09/27/2018 None Full Exam - General Constitutional general appearance Overall: in no acute distress 09/27/2018 None Full Exam - General Neurologic mental status Overall: alert 9 None Full Exam - General Neurologic mental status Overall: oriented 09/27/2018 None Full Exam - General Psychiatric mood and affect Overall: normal mood and affect 09/27/2018 None Full Exam - General Abdomen abdominal exam Overall: no masses 09/27/2018 None Full Exam - General Abdomen abdominal exam Overall: normal bowel sounds 09/27/2018 None Full Exam - General Abdomen abdominal exam Overall: soft 09/27/2018 None Full Exam - General Abdomen abdominal exam Epigastric: tender to palpation 09/27/2018 None Full Exam - General Abdomen abdominal exam Right upper quadrant: tender to palp ation 09/27/2018 None Full Exam - General Abdomen abdominal exam Periumbilical: hernia 09/27/2018 right superior area Full Exam - General Constitutional general appearance Overall: well nourished 04/24/2018 None Full Exam - General Constitutional general appearance Overall: well developed 04/24/2018 None Full Exam - General Constitutional general appearance Overall: in no acute distress 04/24/2018 None Full Exam - General Neurologic mental status Overall: alert 9 None Full Exam - General Neurologic mental status Overall: oriented 04/24/2018 None Full Exam - General Psychiatric mood and affect Overall: normal mood and affect 04/24/2018 None Full Exam - General Respiratory auscultation Overall: breath sounds clear bilater ally 04/24/2018 None Full Exam - General Cardiovascular auscultation of heart Overall: regular rate 04/24/2018 None Full Exam - General Cardiovascular auscultation of heart Overall: normal heart sounds 04/24/2018 None Full Exam - General Cardiovascular extremities Overall: no clubbing 04/24/2018 None Full Exam - General Cardiovascular extremities Overall: No edema 04/24/2018 None Full Exam - General Cardiovascular extremities Overall: No cyanosis 04/24/2018 None Full Exam - General Constitutional general appearance Overall: well nourished 12/27/2017 None Full Exam - General Constitutional general appearance Overall: well developed 12/27/2017 None Full Exam - General Constitutional general appearance Overall: in no acute distress 12/27/2017 None Full Exam - General Neurologic mental status Overall: alert 8 None Full Exam - General Neurologic mental status Overall: oriented 12/27/2017 None Full Exam - General Psychiatric mood and affect Overall: normal mood and affect 12/27/2017 None Full Exam - General Cardiovascular auscultation of heart Overall: regular rate 12/27/2017 None Full Exam - General Cardiovascular auscultation of heart Overall: normal heart sounds 12/27/2017 None Full Exam - General Respiratory auscultation Overall: breath sounds clear bilater ally 12/27/2017 None Full Exam - General Cardiovascular extremities Overall: no clubbing 12/27/2017 None Full Exam - General Cardiovascular extremities Overall: No cyanosis 12/27/2017 None Full Exam - General Cardiovascular extremities Edema present: non-pitting 12/27/2017 None Full Exam - General Constitutional general appearance Overall: well nourished 10/12/2017 None Full Exam - General Constitutional general appearance Overall: in no acute distress 10/12/2017 None Full Exam - General Cardiovascular auscultation of heart Overall: regular rate 10/12/2017 None Full Exam - General Cardiovascular auscultation of heart Overall: no murmurs 10/12/2017 None Full Exam - General Respiratory respiratory effort/rhythm Overall: no retractions 10/12/2017 None Full Exam - General Respiratory respiratory effort/rhythm Overall: normal rate 10/12/2017 None Full Exam - General Respiratory auscultation Diffuse: diminished 10/12/2017 but not taking deep breaths Full Exam - General Respiratory palpation of chest Left lower lung field: pain to light pressure 10/12/2017 None Full Exam - General Respiratory palpation of chest Left lower lung field: pain to deep pressure 10/12/2017 None Full Exam - General Respiratory palpation of chest Right lower lung field: pain to ligh t pressure 10/12/2017 None Full Exam - General Respiratory palpation of chest Right lower lung field: pain to deep pressure 10/12/2017 None Full Exam - General Neurologic mental status Overall: alert 8 None Full Exam - General Neurologic mental status Overall: oriented 10/12/2017 None Full Exam - General Constitutional general appearance Overall: well nourished 09/16/2017 None Full Exam - General Constitutional general appearance Overall: in no acute distress 09/16/2017 None Full Exam - General Ears/Nose/Throat otoscopic exam Left tympanic membrane: air- fluid level 09/16/2017 None Full Exam - General Ears/Nose/Throat otoscopic exam Right tympanic membrane: air- fluid level 09/16/2017 None Full Exam - General Ears/Nose/Throat oral cavity/pharynx/larynx Oropharynx: postnasal drainage 09/16/2017 None Full Exam - General Ears/Nose/Throat oral cavity/pharynx/larynx Oropharynx: erythema 09/16/2017 None Full Exam - General Cardiovascular auscultation of heart Overall: regular rate 09/16/2017 None Full Exam - General Cardiovascular auscultation of heart Overall: no murmurs 09/16/2017 None Full Exam - General Respiratory respiratory effort/rhythm Overall: no retractions 09/16/2017 None Full Exam - General Respiratory respiratory effort/rhythm Overall: normal rate 09/16/2017 None Full Exam - General Respiratory auscultation Diffuse: diminished 09/16/2017 None Full Exam - General Lymphatic neck nodes Left anterior cervical chain: shotty 09/16/2017 None Full Exam - General Lymphatic neck nodes Left anterior cervical chain: tender 09/16/2017 None Full Exam - General Lymphatic neck nodes Right anterior cervical chain: shott y 09/16/2017 None Full Exam - General Lymphatic neck nodes Right anterior cervical chain: tende r 09/16/2017 None Full Exam - General Neurologic mental status Overall: alert 8 None Full Exam - General Neurologic mental status Overall: oriented 09/16/2017 None Full Exam - General Constitutional general appearance Overall: well developed 05/25/2017 None Full Exam - General Constitutional general appearance Overall: well nourished 05/25/2017 None Full Exam - General Constitutional general appearance Overall: in no acute distress 05/25/2017 None Full Exam - General Neurologic mental status Overall: alert 8 None Full Exam - General Neurologic mental status Overall: oriented 05/25/2017 None Full Exam - General Psychiatric mood and affect Overall: normal mood and affect 05/25/2017 None Full Exam - General Respiratory auscultation Overall: breath sounds clear bilater ally 05/25/2017 None Full Exam - General Cardiovascular auscultation of heart Overall: normal heart sounds 05/25/2017 None Full Exam - General Cardiovascular auscultation of heart Rate: tachycardia 05/25/2017 None Full Exam - General Cardiovascular auscultation of heart Rhythm: regular rhythm 05/25/2017 None Full Exam - General Cardiovascular extremities Overall: no clubbing 05/25/2017 None Full Exam - General Cardiovascular extremities Overall: No cyanosis 05/25/2017 None Full Exam - General Cardiovascular extremities Overall: No edema 05/25/2017 None Full Exam - General Integument inspection of skin Location: neck 05/25/2017 posterior scar with 3mm open area Full Exam - General Constitutional general appearance Overall: well nourished 01/03/2017 None Full Exam - General Constitutional general appearance Overall: well developed 01/03/2017 None Full Exam - General Constitutional general appearance Overall: in no acute distress 01/03/2017 None Full Exam - General Neurologic mental status Overall: alert 7 None Full Exam - General Neurologic mental status Overall: oriented 01/03/2017 None Full Exam - General Psychiatric mood and affect Overall: normal mood and affect 01/03/2017 None Full Exam - General Musculoskeletal spine, ribs and pelvis Spine: tender @ lumbar spin e 01/03/2017 None Full Exam - General Musculoskeletal spine, ribs and pelvis Sacroiliac joints: tender right sacroiliac joint 01/03/2017 None Full Exam - General Musculoskeletal spine, ribs and pelvis Sacroiliac joints: tender left sacroiliac joint 01/03/2017 None Full Exam - General Musculoskeletal gait and station Gait: symmetric 01/03/2017 None Full Exam - General Constitutional general appearance Overall: well nourished 09/23/2016 None Full Exam - General Constitutional general appearance Overall: well developed 09/23/2016 None Full Exam - General Constitutional general appearance Overall: in no acute distress 09/23/2016 None Full Exam - General Respiratory auscultation Overall: breath sounds clear bilater ally 09/23/2016 None Full Exam - General Cardiovascular auscultation of heart Overall: regular rate 09/23/2016 None Full Exam - General Cardiovascular auscultation of heart Overall: normal heart sounds 09/23/2016 None Full Exam - General Cardiovascular auscultation of heart Overall: no murmurs 09/23/2016 None Full Exam - General Psychiatric orientation/consciousness Overall: oriented to person, place and time 09/23/2016 None Full Exam - General Neurologic mental status Overall: alert 201 7 None Full Exam - General Neurologic mental status Overall: oriented 09/23/2016 None Full Exam - General Constitutional general appearance Overall: well nourished 09/03/2016 None Full Exam - General Constitutional general appearance Overall: well developed 09/03/2016 None Full Exam - General Constitutional general appearance Overall: in no acute distress 09/03/2016 None Full Exam - General Musculoskeletal digits and nails Digits: a normal exam 09/03/2016 casual observation shows no erythema or joint effusions in extremeties Full Exam - General Integument inspection of skin Location back 09/03/2016 None Full Exam - General Integument inspection of skin Location: back 09/03/2016 upper right back has approx 1.2cm erythe matous raised lesion without other abnormalities Full Exam - General Neurologic mental status Overall: alert 201 7 None Full Exam - General Neurologic mental status Overall: oriented 09/03/2016 None Full Exam - General Constitutional general appearance Overall: well nourished 07/08/2016 None Full Exam - General Constitutional general appearance Overall: well developed 07/08/2016 None Full Exam - General Constitutional general appearance Overall: in no acute distress 07/08/2016 None Full Exam - General Musculoskeletal spine, ribs and pelvis Overall: good posture 07/08/2016 None Full Exam - General Musculoskeletal spine, ribs and pelvis Palpation - right hip: tender at greater trochanter 07/08/2016 None Full Exam - General Musculoskeletal spine, ribs and pelvis ROM - right hip: pain with flexion 07/08/2016 None Full Exam - General Musculoskeletal spine, ribs and pelvis Spine: tender @ lumbar spin e 07/08/2016 None Full Exam - General Musculoskeletal spine, ribs and pelvis Spine: normal straight leg raise 07/08/2016 None Full Exam - General Musculoskeletal spine, ribs and pelvis Sacroiliac joints: tender right sacroiliac joint 07/08/2016 None Full Exam - General Musculoskeletal spine, ribs and pelvis Sacroiliac joints: tender left sacroiliac joint 07/08/2016 None Full Exam - General Neurologic mental status Overall: alert 7 None Full Exam - General Neurologic mental status Overall: oriented 07/08/2016 None Full Exam - General Psychiatric orientation/consciousness Overall: oriented to person, place and time 07/08/2016 None Full Exam - General Musculoskeletal gait and station Gait: asymmetric 07/08/2016 None Full Exam - General Musculoskeletal gait and station Gait: antalgic 07/08/2016 None Full Exam - General Constitutional general appearance Overall: well nourished 06/21/2016 None Full Exam - General Constitutional general appearance Overall: well developed 06/21/2016 None Full Exam - General Constitutional general appearance Overall: in no acute distress 06/21/2016 None Full Exam - General Ears/Nose/Throat otoscopic exam Overall: external auditory canals clear 06/21/2016 None Full Exam - General Ears/Nose/Throat otoscopic exam Overall: tympanic membranes clear 06/21/2016 None Full Exam - General Ears/Nose/Throat internal nose Drainage: clear 06/21/2016 None Full Exam - General Ears/Nose/Throat oral cavity/pharynx/larynx Oropharynx: erythema 06/21/2016 None Full Exam - General Neck inspection of neck Overall: normal size 06/21/2016 None Full Exam - General Neck inspection of neck Overall: no masses 06/21/2016 None Full Exam - General Respiratory auscultation Overall: breath sounds clear bilater ally 06/21/2016 None Full Exam - General Cardiovascular auscultation of heart Overall: regular rate 06/21/2016 None Full Exam - General Cardiovascular auscultation of heart Overall: normal heart sounds 06/21/2016 None Full Exam - General Cardiovascular auscultation of heart Overall: no murmurs 06/21/2016 None Full Exam - General Lymphatic neck nodes Left anterior cervical chain: shotty 06/21/2016 None Full Exam - General Lymphatic neck nodes Right anterior cervical chain: shott y 06/21/2016 None Full Exam - General Neurologic mental status Overall: alert 7 None Full Exam - General Neurologic mental status Overall: oriented 06/21/2016 None Full Exam - General Psychiatric mood and affect Overall: normal mood and affect 06/21/2016 None Full Exam - General Constitutional general appearance Overall: well nourished 02/23/2016 None Full Exam - General Constitutional general appearance Overall: well developed 02/23/2016 None Full Exam - General Constitutional general appearance Overall: in no acute distress 02/23/2016 None Full Exam - General Eyes conjunctiva/eyelids Overall: conjunctiva clear 02/23/2016 None Full Exam - General Ears/Nose/Throat external ear Overall: normal appearance 02/23/2016 None Full Exam - General Ears/Nose/Throat external nose Overall: benign appearance 02/23/2016 None Full Exam - General Ears/Nose/Throat lips/teeth/gingiva Overall: benign lips 02/23/2016 None Full Exam - General Ears/Nose/Throat lips/teeth/gingiva Overall: normal dentition 02/23/2016 None Full Exam - General Ears/Nose/Throat internal nose Overall: bilateral nasal cavities clear 02/23/2016 None Full Exam - General Ears/Nose/Throat internal nose Overall: no drainage 02/23/2016 None Full Exam - General Ears/Nose/Throat internal nose Overall: no sinus tenderness 02/23/2016 None Full Exam - General Ears/Nose/Throat oral cavity/pharynx/larynx Overall: oral mucosa clear 02/23/2016 None Full Exam - General Ears/Nose/Throat oral cavity/pharynx/larynx Oropharynx: erythema 02/23/2016 mild Full Exam - General Respiratory auscultation Diffuse: diminished 02/23/2016 None Full Exam - General Respiratory respiratory effort/rhythm Overall: no retractions 02/23/2016 None Full Exam - General Respiratory respiratory effort/rhythm Overall: normal rate 02/23/2016 None Full Exam - General Cardiovascular auscultation of heart Overall: regular rate 02/23/2016 None Full Exam - General Cardiovascular auscultation of heart Overall: normal heart sounds 02/23/2016 None Full Exam - General Lymphatic neck nodes Overall: anterior cervical chain clemente ign 02/23/2016 None Full Exam - General Lymphatic neck nodes Overall: posterior cervical chain be nign 02/23/2016 None Full Exam - General Integument inspection of skin Overall: no rash, lesions 02/23/2016 None Full Exam - General Constitutional general appearance Overall: well nourished 02/16/2016 None Full Exam - General Constitutional general appearance Overall: well developed 02/16/2016 None Full Exam - General Constitutional general appearance Overall: in no acute distress 02/16/2016 None Full Exam - General Ears/Nose/Throat otoscopic exam Overall: external auditory canals clear 02/16/2016 None Full Exam - General Ears/Nose/Throat otoscopic exam Left tympanic membrane: air- fluid level 02/16/2016 None Full Exam - General Ears/Nose/Throat otoscopic exam Right tympanic membrane: air- fluid level 02/16/2016 None Full Exam - General Ears/Nose/Throat internal nose Turbinates: erythema 02/16/2016 None Full Exam - General Ears/Nose/Throat internal nose Turbinates: hypertrophy 02/16/2016 None Full Exam - General Ears/Nose/Throat internal nose Drainage: cloudy 02/16/2016 None Full Exam - General Ears/Nose/Throat oral cavity/pharynx/larynx Oropharynx: postnasal drainage 02/16/2016 None Full Exam - General Neck inspection of neck Overall: normal size 02/16/2016 None Full Exam - General Neck inspection of neck Overall: no masses 02/16/2016 None Full Exam - General Respiratory auscultation Overall: breath sounds clear bilater ally 02/16/2016 None Full Exam - General Cardiovascular auscultation of heart Overall: regular rate 02/16/2016 None Full Exam - General Cardiovascular auscultation of heart Overall: normal heart sounds 02/16/2016 None Full Exam - General Cardiovascular auscultation of heart Overall: no murmurs 02/16/2016 None Full Exam - General Lymphatic neck nodes Left anterior cervical chain: shotty 02/16/2016 None Full Exam - General Lymphatic neck nodes Left anterior cervical chain: tender 02/16/2016 None Full Exam - General Lymphatic neck nodes Right anterior cervical chain: shott y 02/16/2016 None Full Exam - General Lymphatic neck nodes Right anterior cervical chain: tende r 02/16/2016 None Full Exam - General Neurologic mental status Overall: alert 6 None Full Exam - General Neurologic mental status Overall: oriented 02/16/2016 None Full Exam - General Psychiatric mood and affect Overall: normal mood and affect 02/16/2016 None Full Exam - General Cardiovascular auscultation of heart Overall: regular rate 02/11/2015 None Full Exam - General Cardiovascular auscultation of heart Overall: normal heart sounds 02/11/2015 None Full Exam - General Cardiovascular auscultation of heart Overall: no murmurs 02/11/2015 None Full Exam - General Cardiovascular extremities Edema present: bilateral 02/11/2015 None Full Exam - General Cardiovascular extremities Edema present: pitting 02/11/2015 None Full Exam - General Cardiovascular extremities Edema present: to leg 02/11/2015 None Full Exam - General Cardiovascular extremities Edema present: severity 1+ - 4+: 2+ 02/11/2015 None Full Exam - General Constitutional general appearance Overall: well nourished 02/11/2015 None Full Exam - General Constitutional general appearance Overall: in no acute distress 02/11/2015 None Full Exam - General Constitutional general appearance Overall: well developed 02/11/2015 None Full Exam - General Ears/Nose/Throat oral cavity/pharynx/larynx Overall: oral mucosa clear 02/11/2015 None Full Exam - General Abdomen abdominal exam Periumbilical: hernia 02/11/2015 midline epigastric hernia; non-tender to palpation. Full Exam - General Abdomen abdominal exam Periumbilical: non-tender to palpati on 02/11/2015 None Full Exam - General Abdomen hernia exam Abdominal hernia present: non-tender 02/11/2015 None Full Exam - General Abdomen hernia exam Abdominal hernia present: reducible 02/11/2015 None Full Exam - General Neurologic mental status Overall: alert 5 None Full Exam - General Neurologic mental status Overall: oriented 02/11/2015 None Full Exam - General Psychiatric mood and affect Overall: normal mood and affect 02/11/2015 None Full Exam - General Constitutional general appearance Overall: well nourished 01/28/2015 None Full Exam - General Constitutional general appearance Overall: in no acute distress 01/28/2015 None Full Exam - General Constitutional general appearance Overall: well developed 01/28/2015 None Full Exam - General Ears/Nose/Throat oral cavity/pharynx/larynx Overall: oral mucosa clear 01/28/2015 None Full Exam - General Ears/Nose/Throat otoscopic exam Left tympanic membrane: air- fluid level 01/28/2015 None Full Exam - General Ears/Nose/Throat otoscopic exam Right tympanic membrane: air- fluid level 01/28/2015 None Full Exam - General Neck thyroid Size: enlarged left lobe 01/28/2015 None Full Exam - General Eyes pupils and irises Overall: pupils equal, round, reacti ve to light and accomodation 01/28/2015 None Full Exam - General Cardiovascular auscultation of heart Overall: regular rate 01/28/2015 None Full Exam - General Cardiovascular auscultation of heart Overall: normal heart sounds 01/28/2015 None Full Exam - General Cardiovascular auscultation of heart Overall: no murmurs 01/28/2015 None Full Exam - General Respiratory auscultation Overall: breath sounds clear bilater ally 01/28/2015 None Full Exam - General Cardiovascular inspection of carotid pulses Overall: strong, bilaterally equal, no bruits 01/28/2015 None Full Exam - General Neurologic sensation Touch: (specify location of deficit): light touch 01/28/2015 left mandibular region Full Exam - General Neurologic cranial nerves Overall: cranial nerves 1-12 intact 01/28/2015 None Full Exam - General Neurologic mental status Overall: alert 5 None Full Exam - General Psychiatric mood and affect Overall: normal mood and affect 01/28/2015 None Full Exam - General Psychiatric orientation/consciousness Overall: oriented to person, place and time 01/28/2015 None Full Exam - General Constitutional general appearance Overall: well nourished 12/06/2014 None Full Exam - General Constitutional general appearance Overall: well developed 12/06/2014 None Full Exam - General Constitutional general appearance Evidence of Distress: in distress secondary to pain 12/06/2014 mild Full Exam - General Ears/Nose/Throat otoscopic exam Overall: external auditory canals clear 12/06/2014 None Full Exam - General Ears/Nose/Throat otoscopic exam Overall: tympanic membranes clear 12/06/2014 None Full Exam - General Ears/Nose/Throat internal nose Turbinates: erythema 12/06/2014 None Full Exam - General Ears/Nose/Throat internal nose Turbinates: bilateral edema 12/06/2014 None Full Exam - General Ears/Nose/Throat internal nose Drainage: clear 12/06/2014 None Full Exam - General Ears/Nose/Throat internal nose Sinus tenderness: left frontal 12/06/2014 None Full Exam - General Ears/Nose/Throat internal nose Sinus tenderness: right frontal 12/06/2014 None Full Exam - General Ears/Nose/Throat internal nose Sinus tenderness: left maxillary 12/06/2014 marked Full Exam - General Ears/Nose/Throat internal nose Sinus tenderness: right maxillary 12/06/2014 marked Full Exam - General Ears/Nose/Throat oral cavity/pharynx/larynx Overall: oropharyngeal mucosa clear 12/06/2014 None Full Exam - General Respiratory auscultation Overall: breath sounds clear bilater ally 12/06/2014 None Full Exam - General Cardiovascular auscultation of heart Overall: regular rate 12/06/2014 None Full Exam - General Cardiovascular auscultation of heart Overall: normal heart sounds 12/06/2014 None Full Exam - General Cardiovascular auscultation of heart Overall: no murmurs 12/06/2014 None Full Exam - General Neurologic mental status Overall: alert 5 None Full Exam - General Neurologic mental status Overall: oriented 12/06/2014 None Full Exam - General Constitutional general appearance Overall: well nourished 08/09/2014 None Full Exam - General Constitutional general appearance Overall: well developed 08/09/2014 None Full Exam - General Constitutional general appearance Overall: in no acute distress 08/09/2014 appears to not feel well and be in pain Full Exam - General Ears/Nose/Throat otoscopic exam Overall: external auditory canals clear 08/09/2014 None Full Exam - General Ears/Nose/Throat otoscopic exam Overall: tympanic membranes clear 08/09/2014 None Full Exam - General Ears/Nose/Throat internal nose Turbinates: erythema 08/09/2014 None Full Exam - General Ears/Nose/Throat internal nose Turbinates: bilateral edema 08/09/2014 None Full Exam - General Ears/Nose/Throat internal nose Sinus tenderness: left maxillary 08/09/2014 marked Full Exam - General Ears/Nose/Throat internal nose Sinus tenderness: right maxillary 08/09/2014 marked Full Exam - General Ears/Nose/Throat oral cavity/pharynx/larynx Oropharynx: postnasal drainage 08/09/2014 None Full Exam - General Ears/Nose/Throat oral cavity/pharynx/larynx Hard palate: torus palatini 08/09/2014 None Full Exam - General Respiratory auscultation Overall: breath sounds clear bilater ally 08/09/2014 None Full Exam - General Cardiovascular auscultation of heart Overall: regular rate 08/09/2014 None Full Exam - General Cardiovascular auscultation of heart Overall: normal heart sounds 08/09/2014 None Full Exam - General Cardiovascular auscultation of heart Overall: no murmurs 08/09/2014 None Full Exam - General Lymphatic neck nodes Overall: anterior cervical chain clemente ign 08/09/2014 None Full Exam - General Lymphatic neck nodes Overall: posterior cervical chain be nign 08/09/2014 None Full Exam - General Neurologic mental status Overall: alert 5 None Full Exam - General Neurologic mental status Overall: oriented 08/09/2014 None Full Exam - General Constitutional general appearance Overall: well nourished 06/24/2014 None Full Exam - General Constitutional general appearance Overall: well developed 06/24/2014 None Full Exam - General Constitutional general appearance Overall: in no acute distress 06/24/2014 None Full Exam - General Psychiatric mood and affect Overall: normal mood and affect 06/24/2014 None Full Exam - General Ears/Nose/Throat otoscopic exam Right tympanic membrane: air- fluid level 06/24/2014 None Full Exam - General Ears/Nose/Throat otoscopic exam Left tympanic membrane: a normal exam 06/24/2014 None Full Exam - General Ears/Nose/Throat oral cavity/pharynx/larynx Oropharynx: erythema 06/24/2014 None Full Exam - General Ears/Nose/Throat oral cavity/pharynx/larynx Right tonsil: erythematous 06/24/2014 None Full Exam - General Ears/Nose/Throat oral cavity/pharynx/larynx Left tonsil: erythematous 06/24/2014 None Full Exam - General Respiratory auscultation Overall: breath sounds clear bilater ally 06/24/2014 None Full Exam - General Constitutional general appearance Nourishment: obese 03/22/2014 None Full Exam - General Constitutional general appearance Overall: well developed 03/22/2014 None Full Exam - General Constitutional general appearance Overall: in no acute distress 03/22/2014 None Full Exam - General Ears/Nose/Throat otoscopic exam Left tympanic membrane: air- fluid level 03/22/2014 None Full Exam - General Ears/Nose/Throat otoscopic exam Left tympanic membrane: erythematous 03/22/2014 None Full Exam - General Ears/Nose/Throat otoscopic exam Right tympanic membrane: effusion 03/22/2014 None Full Exam - General Respiratory auscultation Overall: breath sounds clear bilater ally 03/22/2014 None Full Exam - General Cardiovascular auscultation of heart Overall: regular rate 03/22/2014 None Full Exam - General Cardiovascular auscultation of heart Overall: normal heart sounds 03/22/2014 None Full Exam - General Psychiatric mood and affect Overall: normal mood and affect 03/22/2014 None Full Exam - General Constitutional general appearance Overall: well nourished 03/05/2014 None Full Exam - General Constitutional general appearance Overall: well developed 03/05/2014 None Full Exam - General Constitutional general appearance Overall: in no acute distress 03/05/2014 None Full Exam - General Respiratory auscultation Overall: breath sounds clear bilater ally 03/05/2014 None Full Exam - General Musculoskeletal right upper extremity Palpation - right elbow: olecranon bursa tenderness 03/05/2014 None Full Exam - General Musculoskeletal right upper extremity Palpation - right elbow: joint tenderness 03/05/2014 None Full Exam - General Musculoskeletal right upper extremity ROM - right elbow: pain with extension 03/05/2014 None Full Exam - General Musculoskeletal right upper extremity ROM - right elbow: pain with flexion 03/05/2014 None Full Exam - General Musculoskeletal right upper extremity Inspection - right elbow: olecranon swelling 03/05/2014 None Full Exam - General Musculoskeletal right upper extremity Muscle Strength/Tone - right elbow: a normal exam 03/05/2014 None Full Exam - General Psychiatric orientation/consciousness Overall: oriented to person, place and time 03/05/2014 None Full Exam - General Musculoskeletal right upper extremity Inspection - right elbow: joint swelling 03/05/2014 mild Full Exam - General Constitutional general appearance Overall: well nourished 01/16/2014 None Full Exam - General Constitutional general appearance Overall: well developed 01/16/2014 None Full Exam - General Constitutional general appearance Overall: in no acute distress 01/16/2014 None Full Exam - General Ears/Nose/Throat otoscopic exam Overall: external auditory canals clear 01/16/2014 None Full Exam - General Ears/Nose/Throat otoscopic exam Left tympanic membrane: air- fluid level 01/16/2014 None Full Exam - General Ears/Nose/Throat otoscopic exam Right tympanic membrane: air- fluid level 01/16/2014 None Full Exam - General Ears/Nose/Throat internal nose Turbinates: erythema 01/16/2014 None Full Exam - General Ears/Nose/Throat internal nose Turbinates: hypertrophy 01/16/2014 None Full Exam - General Ears/Nose/Throat internal nose Drainage: cloudy 01/16/2014 None Full Exam - General Ears/Nose/Throat oral cavity/pharynx/larynx Oropharynx: postnasal drainage 01/16/2014 None Full Exam - General Neck inspection of neck Overall: normal size 01/16/2014 None Full Exam - General Neck inspection of neck Overall: no masses 01/16/2014 None Full Exam - General Respiratory auscultation Overall: breath sounds clear bilater ally 01/16/2014 None Full Exam - General Cardiovascular auscultation of heart Overall: regular rate 01/16/2014 None Full Exam - General Cardiovascular auscultation of heart Overall: normal heart sounds 01/16/2014 None Full Exam - General Cardiovascular auscultation of heart Overall: no murmurs 01/16/2014 None Full Exam - General Lymphatic neck nodes Left anterior cervical chain: shotty 01/16/2014 None Full Exam - General Lymphatic neck nodes Left anterior cervical chain: tender 01/16/2014 None Full Exam - General Lymphatic neck nodes Right anterior cervical chain: shott y 01/16/2014 None Full Exam - General Lymphatic neck nodes Right anterior cervical chain: tende r 01/16/2014 None Full Exam - General Neurologic mental status Overall: alert 4 None Full Exam - General Neurologic mental status Overall: oriented 01/16/2014 None Full Exam - General Psychiatric mood and affect Overall: normal mood and affect 01/16/2014 None Full Exam - General Constitutional general appearance Overall: well nourished 05/10/2013 None Full Exam - General Constitutional general appearance Overall: in no acute distress 05/10/2013 None Full Exam - General Constitutional general appearance Overall: well developed 05/10/2013 None Full Exam - General Neurologic mental status Overall: alert 4 None Full Exam - General Neurologic mental status Overall: oriented 05/10/2013 None Full Exam - General Psychiatric mood and affect Overall: normal mood and affect 05/10/2013 None Full Exam - General Respiratory auscultation Overall: breath sounds clear bilater ally 05/10/2013 None Full Exam - General Cardiovascular auscultation of heart Overall: regular rate 05/10/2013 None Full Exam - General Cardiovascular auscultation of heart Overall: normal heart sounds 05/10/2013 None Full Exam - General Cardiovascular auscultation of heart S3 (ventricular gallop): present 05/10/2013 None Full Exam - General Cardiovascular extremities Overall: no clubbing 05/10/2013 None Full Exam - General Cardiovascular extremities Overall: No cyanosis 05/10/2013 None Full Exam - General Cardiovascular extremities Overall: No edema 05/10/2013 None Full Exam - General Constitutional general appearance Overall: well nourished 04/17/2013 None Full Exam - General Constitutional general appearance Overall: well developed 04/17/2013 None Full Exam - General Constitutional general appearance Overall: in no acute distress 04/17/2013 None Full Exam - General Neurologic mental status Overall: alert 4 None Full Exam - General Neurologic mental status Overall: oriented 04/17/2013 None Full Exam - General Psychiatric mood and affect Overall: normal mood and affect 04/17/2013 None Full Exam - General Respiratory auscultation Overall: breath sounds clear bilater ally 04/17/2013 None Full Exam - General Cardiovascular auscultation of heart Overall: regular rate 04/17/2013 None Full Exam - General Cardiovascular auscultation of heart Overall: normal heart sounds 04/17/2013 None Full Exam - General Cardiovascular auscultation of heart Overall: no murmurs 04/17/2013 None Full Exam - General Ears/Nose/Throat otoscopic exam Overall: external auditory canals clear 04/17/2013 None Full Exam - General Ears/Nose/Throat otoscopic exam Left tympanic membrane: air- fluid level 04/17/2013 None Full Exam - General Ears/Nose/Throat otoscopic exam Right tympanic membrane: air- fluid level 04/17/2013 None Full Exam - General Ears/Nose/Throat internal nose Turbinates: hypertrophy 04/17/2013 None Full Exam - General Ears/Nose/Throat internal nose Turbinates: erythema 04/17/2013 None Full Exam - General Ears/Nose/Throat oral cavity/pharynx/larynx Oropharynx: erythema 04/17/2013 None Full Exam - General Respiratory auscultation Left upper lung field: a normal exam 03/05/2013 None Full Exam - General Respiratory auscultation Right lower lung field: diminished 03/05/2013 None Full Exam - General Respiratory auscultation Right middle lung field: a normal ex am 03/05/2013 None Full Exam - General Respiratory auscultation Right upper lung field: a normal exa m 03/05/2013 None Full Exam - General Respiratory auscultation Left lower lung field: a normal exam 03/05/2013 None Full Exam - General Cardiovascular auscultation of heart Overall: regular rate 03/05/2013 None Full Exam - General Cardiovascular auscultation of heart Overall: normal heart sounds 03/05/2013 None Full Exam - General Cardiovascular auscultation of heart Overall: no murmurs 03/05/2013 None Full Exam - General Psychiatric orientation/consciousness Overall: oriented to person, place and time 03/05/2013 None Full Exam - General Ears/Nose/Throat otoscopic exam Left tympanic membrane: a normal exam 03/05/2013 None Full Exam - General Ears/Nose/Throat otoscopic exam Right tympanic membrane: effusion 03/05/2013 None Full Exam - General Ears/Nose/Throat oral cavity/pharynx/larynx Overall: oral mucosa clear 03/05/2013 None Full Exam - General Constitutional general appearance Overall: well nourished 03/05/2013 None Full Exam - General Constitutional general appearance Overall: well developed 03/05/2013 None Full Exam - General Constitutional general appearance Overall: in no acute distress 03/05/2013 None Full Exam - General Ears/Nose/Throat otoscopic exam Right tympanic membrane: erythematous 03/02/2013 None Full Exam - General Ears/Nose/Throat otoscopic exam Right tympanic membrane: effusion 03/02/2013 None Full Exam - General Ears/Nose/Throat otoscopic exam Left tympanic membrane: effusion 03/02/2013 None Full Exam - General Ears/Nose/Throat otoscopic exam Left tympanic membrane: abnormal light reflex 03/02/2013 None Full Exam - General Ears/Nose/Throat otoscopic exam Left external auditory canal: a normal exam 03/02/2013 None Full Exam - General Ears/Nose/Throat otoscopic exam Right external auditory canal: erythematous 03/02/2013 None Full Exam - General Respiratory auscultation Right lower lung field: diminished 03/02/2013 None Full Exam - General Respiratory auscultation Left lower lung field: a normal exam 03/02/2013 None Full Exam - General Respiratory auscultation Left upper lung field: bronchial 03/02/2013 None Full Exam - General Respiratory auscultation Right upper lung field: bronchial 03/02/2013 None Full Exam - General Respiratory auscultation Right middle lung field: diminished 03/02/2013 None Full Exam - General Cardiovascular auscultation of heart Overall: regular rate 03/02/2013 None Full Exam - General Cardiovascular auscultation of heart Overall: normal heart sounds 03/02/2013 None Full Exam - General Cardiovascular auscultation of heart Overall: no murmurs 03/02/2013 None Full Exam - General Psychiatric orientation/consciousness Overall: oriented to person, place and time 03/02/2013 None Full Exam - General Constitutional general appearance Overall: well nourished 03/02/2013 None Full Exam - General Constitutional general appearance Overall: well developed 03/02/2013 None Full Exam - General Constitutional general appearance Overall: in no acute distress 03/02/2013 None Full Exam - General Constitutional general appearance Overall: well nourished 03/01/2013 None Full Exam - General Constitutional general appearance Overall: well developed 03/01/2013 None Full Exam - General Constitutional general appearance Overall: in no acute distress 03/01/2013 None Full Exam - General Ears/Nose/Throat otoscopic exam Right tympanic membrane: injected 03/01/2013 None Full Exam - General Ears/Nose/Throat otoscopic exam Right external auditory canal: erythematous 03/01/2013 None Full Exam - General Ears/Nose/Throat otoscopic exam Left tympanic membrane: effusion 03/01/2013 None Full Exam - General Ears/Nose/Throat otoscopic exam Left external auditory canal: a normal exam 03/01/2013 None Full Exam - General Respiratory auscultation Overall: breath sounds clear bilater ally 03/01/2013 None Full Exam - General Respiratory auscultation Left upper lung field: bronchial 03/01/2013 coarse cough Full Exam - General Respiratory auscultation Right upper lung field: bronchial 03/01/2013 coarse cough Full Exam - General Cardiovascular auscultation of heart Overall: regular rate 03/01/2013 None Full Exam - General Cardiovascular auscultation of heart Overall: normal heart sounds 03/01/2013 None Full Exam - General Psychiatric orientation/consciousness Overall: oriented to person, place and time 03/01/2013 None Full Exam - General Constitutional general appearance Overall: well nourished 02/22/2013 None Full Exam - General Constitutional general appearance Overall: well developed 02/22/2013 None Full Exam - General Constitutional general appearance Overall: in no acute distress 02/22/2013 None Full Exam - General Neurologic mental status Overall: alert 3 None Full Exam - General Neurologic mental status Overall: oriented 02/22/2013 None Full Exam - General Psychiatric mood and affect Overall: normal mood and affect 02/22/2013 None Full Exam - General Respiratory auscultation Overall: breath sounds clear bilater ally 02/22/2013 None Full Exam - General Cardiovascular auscultation of heart Overall: regular rate 02/22/2013 None Full Exam - General Cardiovascular auscultation of heart Overall: normal heart sounds 02/22/2013 None Full Exam - General Cardiovascular auscultation of heart Overall: no murmurs 02/22/2013 None Full Exam - General Constitutional general appearance Overall: well nourished 01/11/2013 None Full Exam - General Constitutional general appearance Overall: well developed 01/11/2013 None Full Exam - General Constitutional general appearance Overall: in no acute distress 01/11/2013 None Full Exam - General Respiratory auscultation Overall: breath sounds clear bilater ally 01/11/2013 None Full Exam - General Cardiovascular auscultation of heart Overall: regular rate 01/11/2013 None Full Exam - General Cardiovascular auscultation of heart Overall: normal heart sounds 01/11/2013 None Full Exam - General Cardiovascular auscultation of heart S3 (ventricular gallop): present 01/11/2013 None Full Exam - General Neurologic mental status Overall: alert 3 None Full Exam - General Neurologic mental status Overall: oriented 01/11/2013 None Full Exam - General Psychiatric mood and affect Overall: normal mood and affect 01/11/2013 None Full Exam - General Neurologic sensation Overall: intact to touch, pin, vibra tion, proprioception 01/11/2013 Normal monofilament test to bilateral feet Full Exam - General Neurologic gait Overall: no ataxia, no unsteadiness 01/11/2013 None Full Exam - General Integument inspection of skin Dermatitis: dryness/flaking 01/11/2013 to bilateral feet Full Exam - General Integument inspection of skin Rash/Lesions: vesicle 11/03/2012 has group of vesicles on mid left lower back (approx T1 area), another in line with first group at mid axillary line and another smaller cluster under bra line mid clavicular line Full Exam - General Constitutional general appearance Evidence of Distress: in distress secondary to pain 11/03/2012 moderate Full Exam - General Neurologic mental status Overall: alert 3 None Full Exam - General Neurologic mental status Overall: oriented 11/03/2012 None Full Exam - General Psychiatric mood and affect Overall: normal mood and affect 11/03/2012 None Full Exam - General Constitutional general appearance Overall: well nourished 05/04/2012 None Full Exam - General Constitutional general appearance Overall: well developed 05/04/2012 None Full Exam - General Constitutional general appearance Overall: in no acute distress 05/04/2012 None Full Exam - General Ears/Nose/Throat otoscopic exam Overall: external auditory canals clear 05/04/2012 None Full Exam - General Ears/Nose/Throat otoscopic exam Overall: tympanic membranes clear 05/04/2012 None Full Exam - General Ears/Nose/Throat lips/teeth/gingiva Overall: benign lips 05/04/2012 None Full Exam - General Ears/Nose/Throat lips/teeth/gingiva Overall: normal dentition 05/04/2012 None Full Exam - General Ears/Nose/Throat lips/teeth/gingiva Overall: benign gingiva 05/04/2012 None Full Exam - General Ears/Nose/Throat oral cavity/pharynx/larynx Oropharynx: erythema 05/04/2012 None Full Exam - General Respiratory auscultation Overall: breath sounds clear bilater ally 05/04/2012 None Full Exam - General Respiratory respiratory effort/rhythm Overall: no retractions 05/04/2012 None Full Exam - General Respiratory respiratory effort/rhythm Overall: normal rate 05/04/2012 None Full Exam - General Cardiovascular auscultation of heart Overall: regular rate 05/04/2012 None Full Exam - General Cardiovascular auscultation of heart Overall: normal heart sounds 05/04/2012 None Full Exam - General Lymphatic neck nodes Overall: anterior cervical chain clemente ign 05/04/2012 None Full Exam - General Lymphatic neck nodes Overall: posterior cervical chain be nign 05/04/2012 None Full Exam - General Psychiatric orientation/consciousness Overall: oriented to person, place and time 05/04/2012 None Full Exam - General Constitutional general appearance Overall: well nourished 10/11/2011 None Full Exam - General Constitutional general appearance Overall: well developed 10/11/2011 None Full Exam - General Constitutional general appearance Overall: in no acute distress 10/11/2011 None Full Exam - General Ears/Nose/Throat otoscopic exam Overall: external auditory canals clear 10/11/2011 None Full Exam - General Ears/Nose/Throat otoscopic exam Overall: tympanic membranes clear 10/11/2011 None Full Exam - General Ears/Nose/Throat lips/teeth/gingiva Overall: benign lips 10/11/2011 None Full Exam - General Ears/Nose/Throat lips/teeth/gingiva Overall: normal dentition 10/11/2011 None Full Exam - General Ears/Nose/Throat lips/teeth/gingiva Overall: benign gingiva 10/11/2011 None Full Exam - General Ears/Nose/Throat oral cavity/pharynx/larynx Oropharynx: erythema 10/11/2011 None Full Exam - General Ears/Nose/Throat oral cavity/pharynx/larynx Oropharynx: exudate 10/11/2011 single white pustule pres ent on rt side of throat Full Exam - General Respiratory auscultation Overall: breath sounds clear bilater ally 10/11/2011 None Full Exam - General Respiratory respiratory effort/rhythm Overall: no retractions 10/11/2011 None Full Exam - General Respiratory respiratory effort/rhythm Overall: normal rate 10/11/2011 None Full Exam - General Cardiovascular auscultation of heart Overall: regular rate 10/11/2011 None Full Exam - General Cardiovascular auscultation of heart Overall: normal heart sounds 10/11/2011 None Full Exam - General Lymphatic neck nodes Overall: anterior cervical chain clemente ign 10/11/2011 None Full Exam - General Lymphatic neck nodes Overall: posterior cervical chain be nign 10/11/2011 None Full Exam - General Psychiatric orientation/consciousness Overall: oriented to person, place and time 10/11/2011 None Full Exam - General Constitutional general appearance Overall: well nourished 06/23/2011 None Full Exam - General Constitutional general appearance Overall: well developed 06/23/2011 None Full Exam - General Constitutional general appearance Overall: in no acute distress 06/23/2011 None Full Exam - General Ears/Nose/Throat otoscopic exam Overall: external auditory canals clear 06/23/2011 None Full Exam - General Ears/Nose/Throat otoscopic exam Overall: tympanic membranes clear 06/23/2011 None Full Exam - General Ears/Nose/Throat oral cavity/pharynx/larynx Oropharynx: erythema 06/23/2011 None Full Exam - General Respiratory auscultation Overall: breath sounds clear bilater ally 06/23/2011 None Full Exam - General Respiratory respiratory effort/rhythm Overall: no retractions 06/23/2011 None Full Exam - General Respiratory respiratory effort/rhythm Overall: normal rate 06/23/2011 None Full Exam - General Ears/Nose/Throat internal nose Left nasal cavity: mucosal edema 06/23/2011 None Full Exam - General Ears/Nose/Throat internal nose Right nasal cavity: mucosal edema 06/23/2011 None Full Exam - General Ears/Nose/Throat internal nose Sinus tenderness: left frontal 06/23/2011 None Full Exam - General Lymphatic neck nodes Overall: anterior cervical chain clemente ign 06/23/2011 None Full Exam - General Lymphatic neck nodes Overall: posterior cervical chain be nign 06/23/2011 None Full Exam - General Psychiatric orientation/consciousness Overall: oriented to person, place and time 06/23/2011 None Full Exam - General Ears/Nose/Throat internal nose Drainage: bilateral 06/23/2011 pt. sniffling frequently throughout exam Full Exam - General Constitutional general appearance Overall: well developed 06/14/2011 None Full Exam - General Constitutional general appearance Overall: well nourished 06/14/2011 None Full Exam - General Constitutional general appearance Overall: in no acute distress 06/14/2011 None Full Exam - General Ears/Nose/Throat otoscopic exam Overall: external auditory canals clear 06/14/2011 None Full Exam - General Ears/Nose/Throat otoscopic exam Overall: tympanic membranes clear 06/14/2011 None Full Exam - General Ears/Nose/Throat lips/teeth/gingiva Overall: benign lips 06/14/2011 None Full Exam - General Ears/Nose/Throat lips/teeth/gingiva Overall: normal dentition 06/14/2011 None Full Exam - General Ears/Nose/Throat lips/teeth/gingiva Overall: benign gingiva 06/14/2011 None Full Exam - General Ears/Nose/Throat oral cavity/pharynx/larynx Oropharynx: erythema 06/14/2011 None Full Exam - General Ears/Nose/Throat oral cavity/pharynx/larynx Oropharynx: exudate 06/14/2011 white spots on top of paul pharynx on both sides Full Exam - General Respiratory auscultation Overall: breath sounds clear bilater ally 06/14/2011 None Full Exam - General Respiratory respiratory effort/rhythm Overall: no retractions 06/14/2011 None Full Exam - General Respiratory respiratory effort/rhythm Overall: normal rate 06/14/2011 None Full Exam - General Cardiovascular auscultation of heart Overall: regular rate 06/14/2011 None Full Exam - General Cardiovascular auscultation of heart Overall: normal heart sounds 06/14/2011 None Full Exam - General Psychiatric orientation/consciousness Overall: oriented to person, place and time 06/14/2011 None Full Exam - General Integument inspection of skin Rash/Lesions: patch 06/14/2011 lt. brown on center of abdomen just belo w umbilicus (fading) Full Exam - General Lymphatic neck nodes Left anterior cervical chain: size ( cm): 1 12/02/2010 None Full Exam - General Lymphatic neck nodes Left anterior cervical chain: tender 12/02/2010 None Full Exam - General Lymphatic neck nodes Left anterior cervical chain: mobile 12/02/2010 None Full Exam - General Lymphatic neck nodes Right anterior cervical chain: numbe r of palpable nodes: 1 12/02/2010 None Full Exam - General Constitutional general appearance Overall: well nourished 12/02/2010 None Full Exam - General Constitutional general appearance Overall: well developed 12/02/2010 None Full Exam - General Constitutional general appearance Overall: in no acute distress 12/02/2010 None Full Exam - General Ears/Nose/Throat otoscopic exam Overall: external auditory canals clear 12/02/2010 None Full Exam - General Ears/Nose/Throat otoscopic exam Right external auditory canal: tender 12/02/2010 rt tym panic membrane is mildly cloudy Full Exam - General Ears/Nose/Throat lips/teeth/gingiva Overall: benign lips 12/02/2010 None Full Exam - General Lymphatic neck nodes Right anterior cervical chain: size (cm): 1 12/02/2010 None Full Exam - General Lymphatic neck nodes Right anterior cervical chain: tende r 12/02/2010 None Full Exam - General Lymphatic neck nodes Right anterior cervical chain: mobil e 12/02/2010 None Full Exam - General Integument inspection of skin Overall: no rash, lesions 12/02/2010 None Full Exam - General Ears/Nose/Throat lips/teeth/gingiva Overall: normal dentition 12/02/2010 None Full Exam - General Ears/Nose/Throat lips/teeth/gingiva Overall: benign gingiva 12/02/2010 None Full Exam - General Ears/Nose/Throat oral cavity/pharynx/larynx Oropharynx: erythema 12/02/2010 None Full Exam - General Respiratory auscultation Overall: breath sounds clear bilater ally 12/02/2010 None Full Exam - General Respiratory respiratory effort/rhythm Overall: no retractions 12/02/2010 None Full Exam - General Respiratory respiratory effort/rhythm Overall: normal rate 12/02/2010 None Full Exam - General Cardiovascular auscultation of heart Overall: regular rate 12/02/2010 None Full Exam - General Cardiovascular auscultation of heart Overall: normal heart sounds 12/02/2010 None Full Exam - General Lymphatic neck nodes Left anterior cervical chain: number of palpable nodes: 1 12/02/2010 None Full Exam - General Psychiatric orientation/consciousness Overall: oriented to person, place and time 12/02/2010 None Full Exam - General Cardiovascular auscultation of heart Overall: regular rate 11/12/2010 None Full Exam - General Cardiovascular auscultation of heart Overall: normal heart sounds 11/12/2010 None Full Exam - General Cardiovascular auscultation of heart S1: a normal exam 11/12/2010 None Full Exam - General Cardiovascular auscultation of heart S2: a normal exam 11/12/2010 None Full Exam - General Cardiovascular auscultation of heart Rhythm: regular rhythm 11/12/2010 None Full Exam - General Cardiovascular auscultation of heart Rate: regular rate 11/12/2010 None Full Exam - General Cardiovascular auscultation of heart S3 (ventricular gallop): present 11/12/2010 None Full Exam - General Psychiatric mood and affect Overall: normal mood and affect 11/12/2010 None Full Exam - General Cardiovascular extremities Overall: no clubbing 11/12/2010 None Full Exam - General Cardiovascular extremities Overall: No edema 11/12/2010 None Full Exam - General Cardiovascular extremities Overall: No cyanosis 11/12/2010 None Full Exam - General Integument inspection of skin Dermatitis: petechiae 11/12/2010 look lesions to lower ext remities Full Exam - General Constitutional general appearance Overall: in no acute distress 11/12/2010 None Full Exam - General Constitutional general appearance Overall: well developed 11/12/2010 None Full Exam - General Constitutional general appearance Overall: well nourished 11/12/2010 None Full Exam - General Neurologic mental status Overall: alert 1 None Full Exam - General Neurologic mental status Overall: oriented 11/12/2010 None Full Exam - General Respiratory auscultation Right upper lung field: a normal exa m 11/12/2010 None Full Exam - General Respiratory auscultation Right middle lung field: a normal ex am 11/12/2010 None Full Exam - General Respiratory auscultation Right lower lung field: a normal exa m 11/12/2010 None Full Exam - General Respiratory auscultation Left lower lung field: a normal exam 11/12/2010 None Full Exam - General Respiratory auscultation Overall: breath sounds clear bilater ally 11/12/2010 None Full Exam - General Respiratory auscultation Left upper lung field: a normal exam 11/12/2010 None Full Exam - General Respiratory auscultation Diffuse: a normal exam 11/12/2010 None Full Exam - General Cardiovascular auscultation of heart Overall: no murmurs 11/12/2010 None Full Exam - General Constitutional general appearance Overall: well nourished 06/24/2010 None Full Exam - General Constitutional general appearance Overall: well developed 06/24/2010 None Full Exam - General Constitutional general appearance Overall: in no acute distress 06/24/2010 None Full Exam - General Neurologic mental status Overall: alert 1 None Full Exam - General Neurologic mental status Overall: oriented 06/24/2010 None Full Exam - General Psychiatric mood and affect Overall: normal mood and affect 06/24/2010 None Full Exam - General Abdomen abdominal exam Overall: no masses 06/24/2010 None Full Exam - General Abdomen abdominal exam Overall: normal bowel sounds 06/24/2010 None Full Exam - General Abdomen abdominal exam Overall: soft 06/24/2010 None Full Exam - General Abdomen abdominal exam Overall: no tenderness 06/24/2010 None Full Exam - General Integument inspection of skin Location: abdomen 06/24/2010 incision still with drain in place with oozing, but no erythema Full Exam - General Constitutional general appearance Overall: well nourished 06/08/2010 None Full Exam - General Constitutional general appearance Overall: well developed 06/08/2010 None Full Exam - General Constitutional general appearance Overall: in no acute distress 06/08/2010 None Full Exam - General Respiratory auscultation Overall: breath sounds clear bilater ally 06/08/2010 None Full Exam - General Respiratory respiratory effort/rhythm Overall: no retractions 06/08/2010 None Full Exam - General Respiratory respiratory effort/rhythm Overall: normal rate 06/08/2010 None Full Exam - General Cardiovascular auscultation of heart Overall: regular rate 06/08/2010 None Full Exam - General Cardiovascular auscultation of heart Overall: normal heart sounds 06/08/2010 None Full Exam - General Abdomen abdominal exam Right lower quadrant: tender to palp ation 06/08/2010 None Full Exam - General Abdomen abdominal exam Right lower quadrant: voluntary guar ding 06/08/2010 None Full Exam - General Abdomen abdominal exam Right lower quadrant: no rebound ten derness 06/08/2010 None Full Exam - General Abdomen abdominal exam Right lower quadrant: no mass lesion s 06/08/2010 None Full Exam - General Psychiatric orientation/consciousness Overall: oriented to person, place and time 06/08/2010 None Full Exam - General Lymphatic neck nodes Overall: anterior cervical chain clemente ign 06/08/2010 None Full Exam - General Lymphatic neck nodes Overall: posterior cervical chain be nign 06/08/2010 None Full Exam - General Constitutional general appearance Overall: well nourished 05/20/2010 None Full Exam - General Constitutional general appearance Overall: well developed 05/20/2010 None Full Exam - General Constitutional general appearance Overall: in no acute distress 05/20/2010 None Full Exam - General Ears/Nose/Throat otoscopic exam Overall: external auditory canals clear 05/20/2010 None Full Exam - General Ears/Nose/Throat otoscopic exam Overall: tympanic membranes clear 05/20/2010 None Full Exam - General Ears/Nose/Throat lips/teeth/gingiva Overall: benign lips 05/20/2010 None Full Exam - General Ears/Nose/Throat lips/teeth/gingiva Overall: normal dentition 05/20/2010 None Full Exam - General Ears/Nose/Throat lips/teeth/gingiva Overall: benign gingiva 05/20/2010 None Full Exam - General Ears/Nose/Throat oral cavity/pharynx/larynx Overall: oral mucosa clear 05/20/2010 None Full Exam - General Ears/Nose/Throat oral cavity/pharynx/larynx Overall: tonsils benign 05/20/2010 None Full Exam - General Ears/Nose/Throat oral cavity/pharynx/larynx Overall: oropharyngeal mucosa clear 05/20/2010 None Full Exam - General Respiratory auscultation Overall: breath sounds clear bilater ally 05/20/2010 None Full Exam - General Respiratory respiratory effort/rhythm Overall: no retractions 05/20/2010 None Full Exam - General Respiratory respiratory effort/rhythm Overall: normal rate 05/20/2010 None Full Exam - General Cardiovascular auscultation of heart Overall: regular rate 05/20/2010 None Full Exam - General Cardiovascular auscultation of heart Overall: normal heart sounds 05/20/2010 None Full Exam - General Integument inspection of skin Rash/Lesions: papule 05/20/2010 forearms Full Exam - General Integument inspection of skin Rash/Lesions: patch 05/20/2010 tiny patches of papules with some light purple discoloration Full Exam - General Integument inspection of skin Rash/Lesions: wheal 05/20/2010 red raised wheals on the backs of legs Full Exam - General Psychiatric orientation/consciousness Overall: oriented to person, place and time 05/20/2010 None Full Exam - General Constitutional general appearance Overall: well developed 04/30/2010 None Full Exam - General Constitutional general appearance Overall: in no acute distress 04/30/2010 None Full Exam - General Respiratory auscultation Overall: breath sounds clear bilater ally 04/30/2010 None Full Exam - General Respiratory auscultation Diffuse: a normal exam 04/30/2010 None Full Exam - General Respiratory auscultation Left upper lung field: a normal exam 04/30/2010 None Full Exam - General Respiratory auscultation Left lower lung field: a normal exam 04/30/2010 None Full Exam - General Respiratory auscultation Right upper lung field: a normal exa m 04/30/2010 None Full Exam - General Respiratory auscultation Right middle lung field: a normal ex am 04/30/2010 None Full Exam - General Respiratory auscultation Right lower lung field: a normal exa m 04/30/2010 None Full Exam - General Cardiovascular auscultation of heart Overall: regular rate 04/30/2010 None Full Exam - General Cardiovascular auscultation of heart Overall: normal heart sounds 04/30/2010 None Full Exam - General Cardiovascular auscultation of heart Overall: no murmurs 04/30/2010 None Full Exam - General Cardiovascular auscultation of heart Rate: regular rate 04/30/2010 None Full Exam - General Cardiovascular auscultation of heart Rhythm: regular rhythm 04/30/2010 None Full Exam - General Cardiovascular auscultation of heart S1: a normal exam 04/30/2010 None Full Exam - General Constitutional general appearance Overall: well nourished 04/30/2010 None Full Exam - General Cardiovascular auscultation of heart S2: a normal exam 04/30/2010 None Full Exam - General Cardiovascular auscultation of heart S3 (ventricular gallop): present 04/30/2010 None Full Exam - General Cardiovascular extremities Overall: no clubbing 04/30/2010 None Full Exam - General Cardiovascular extremities Overall: No edema 04/30/2010 None Full Exam - General Cardiovascular extremities Overall: No cyanosis 04/30/2010 None Full Exam - General Neurologic mental status Overall: alert 1 None Full Exam - General Neurologic mental status Overall: oriented 04/30/2010 None Full Exam - General Psychiatric mood and affect Overall: normal mood and affect 04/30/2010 None Full Exam - General Abdomen abdominal exam Overall: no masses 04/30/2010 None Full Exam - General Abdomen abdominal exam Overall: no tenderness 04/30/2010 None Full Exam - General Abdomen abdominal exam Overall: normal bowel sounds 04/30/2010 None Full Exam - General Abdomen abdominal exam Overall: soft 04/30/2010 None Full Exam - General Integument inspection of skin Dermatitis: erythema 04/30/2010 papules to arms and legs Full Exam - General Cardiovascular auscultation of heart Overall: no murmurs 01/22/2010 None Full Exam - General Cardiovascular auscultation of heart Rate: regular rate 01/22/2010 None Full Exam - General Cardiovascular auscultation of heart Rhythm: regular rhythm 01/22/2010 None Full Exam - General Cardiovascular auscultation of heart S1: a normal exam 01/22/2010 None Full Exam - General Cardiovascular auscultation of heart S2: a normal exam 01/22/2010 None Full Exam - General Cardiovascular auscultation of heart S3 (ventricular gallop): present 01/22/2010 None Full Exam - General Cardiovascular extremities Overall: no clubbing 01/22/2010 None Full Exam - General Cardiovascular extremities Overall: No edema 01/22/2010 None Full Exam - General Cardiovascular extremities Overall: No cyanosis 01/22/2010 None Full Exam - General Abdomen abdominal exam Overall: no masses 01/22/2010 None Full Exam - General Respiratory auscultation Right middle lung field: a normal ex am 01/22/2010 None Full Exam - General Respiratory auscultation Right lower lung field: a normal exa m 01/22/2010 None Full Exam - General Cardiovascular auscultation of heart Overall: regular rate 01/22/2010 None Full Exam - General Cardiovascular auscultation of heart Overall: normal heart sounds 01/22/2010 None Full Exam - General Abdomen abdominal exam Overall: no tenderness 01/22/2010 None Full Exam - General Abdomen abdominal exam Overall: normal bowel sounds 01/22/2010 None Full Exam - General Abdomen abdominal exam Overall: soft 01/22/2010 None Full Exam - General Constitutional general appearance Overall: well nourished 01/22/2010 None Full Exam - General Constitutional general appearance Overall: well developed 01/22/2010 None Full Exam - General Constitutional general appearance Overall: in no acute distress 01/22/2010 None Full Exam - General Neurologic mental status Overall: alert 0 None Full Exam - General Neurologic mental status Overall: oriented 01/22/2010 None Full Exam - General Psychiatric mood and affect Overall: normal mood and affect 01/22/2010 None Full Exam - General Respiratory auscultation Overall: breath sounds clear bilater ally 01/22/2010 None Full Exam - General Respiratory auscultation Diffuse: a normal exam 01/22/2010 None Full Exam - General Respiratory auscultation Left upper lung field: a normal exam 01/22/2010 None Full Exam - General Respiratory auscultation Left lower lung field: a normal exam 01/22/2010 None Full Exam - General Respiratory auscultation Right upper lung field: a normal exa m 01/22/2010 None Procedures Procedure Codes Date URINALYSIS NONAUTO W /O SCOPE CPT-4: 50088 09/27/2018 URINE CULTURE/ COLON Y COUNT CPT-4: 05017 09/27/2018 URINALYSIS NONAUTO W /O SCOPE CPT-4: 28567 10/13/2017 URINE CULTURE/ COLON Y COUNT CPT-4: 70730 10/13/2017 STREP A ASSAY W/OPTIC CPT-4: 61589 06/21/2016 STREP A ASSAY W/OPTIC CPT-4: 13703 06/24/2014 THER/PROPH/DIAG INJ SC/IM CPT-4: 63369 03/22/2014 METHYLPREDNISOLONE 4 0 MG INJ CPT-4: J1030 03/22/2014 TRIAMCINOLONE ACET I [place] NOS CPT-4: J3301 03/22/2014 URINALYSIS NONAUTO W /O SCOPE CPT-4: 20535 10/19/2013 URINE CULTURE/ COLON Y COUNT CPT-4: 13171 10/19/2013 CEFTRIAXONE SODIUM I NJECTION CPT-4: J0696 03/02/2013 THER/PROPH/DIAG INJ SC/IM CPT-4: 59650 03/02/2013 CEFTRIAXONE SODIUM I NJECTION CPT-4: J0696 03/01/2013 THER/PROPH/DIAG INJ SC/IM CPT-4: 13749 03/01/2013 THER/PROPH/DIAG INJ SC/IM CPT-4: 02673 03/01/2013 METHYLPREDNISOLONE 4 0 MG INJ CPT-4: J1030 03/01/2013 TRIAMCINOLONE ACET I [place] NOS CPT-4: J3301 03/01/2013 MICROALBUMIN QUANTIT ATIVE CPT-4: 51111 01/11/2013 URINE CULTURE/ COLON Y COUNT CPT-4: 55921 05/04/2012 URINALYSIS NONAUTO W /O SCOPE CPT-4: 82121 05/04/2012 URINE CULTURE/ COLON Y COUNT CPT-4: 39008 05/29/2010 TRIAMCINOLONE ACET I [place] NOS CPT-4: J3301 05/20/2010 METHYLPREDNISOLONE 4 0 MG INJ CPT-4: J1030 05/20/2010 THER/PROPH/DIAG INJ SC/IM CPT-4: 88443 05/20/2010 Vital Signs Date Vital 09/27/2018 Blood Pressure 1: 136/82 Code: 8480-6 Heart Rate 1: 68 bpm Respiratory Rate: 20 bpm SpO2: 96% Temperature: 36.6 (C ) / 97.9 (F) Weight: 244 lbs 04/24/2018 Blood Pressure 1: 134/78 Code: 8480-6 BMI: 35.1 Code: 98522-5 Heart Rate 1: 76 bpm Height: 5'9" Respiratory Rate: 20 bpm Temperature: 36.6 (C ) / 97.8 (F) Weight: 238 lbs 12/27/2017 Blood Pressure 1: 126/64 Code: 8480-6 BMI: 34.7 Code: 76620-1 Heart Rate 1: 72 bpm Height: 5'9" Respiratory Rate: 20 bpm Temperature: 36.8 (C ) / 98.2 (F) Weight: 235 lbs 10/12/2017 Blood Pressure 1: 142/80 Code: 8480-6 BMI: 35.1 Code: 88434-6 Heart Rate 1: 98 bpm Height: 5'9" Respiratory Rate: 22 bpm SpO2: 100% Temperature: 36.5 (C ) / 97.7 (F) Weight: 238 lbs 09/16/2017 Blood Pressure 1: 136/82 Code: 8480-6 BMI: 34.1 Code: 25555-9 Heart Rate 1: 82 bpm Height: 5'9" Respiratory Rate: 18 bpm SpO2: 96% Temperature: 36.3 (C ) / 97.3 (F) Weight: 231 lbs 05/25/2017 Blood Pressure 1: 122/82 Code: 8480-6 BMI: 32.3 Code: 55083-7 Heart Rate 1: 116 bpm Height: 5'9" Respiratory Rate: 20 bpm SpO2: 98% Temperature: 35.6 (C ) / 96.1 (F) Weight: 219 lbs 01/03/2017 Blood Pressure 1: 126/78 Code: 8480-6 BMI: 33.4 Code: 10405-7 Heart Rate 1: 72 bpm Height: 5'9" Respiratory Rate: 20 bpm Temperature: 36.8 (C ) / 98.2 (F) Weight: 226 lbs 09/23/2016 Blood Pressure 1: 126/82 Code: 8480-6 BMI: 33.8 Code: 57243-4 Heart Rate 1: 80 bpm Height: 5'9" Respiratory Rate: 20 bpm SpO2: 97% Temperature: 36.8 (C ) / 98.2 (F) Weight: 229 lbs 09/03/2016 Blood Pressure 1: 188/64 Code: 8480-6 Blood Pressure 2: 166/92 Code: 8480-6 BMI: 34.4 Code: 63588-1 Heart Rate 1: 66 bpm Height: 5'9" Respiratory Rate: 20 bpm SpO2: 98% Temperature: 35.7 (C ) / 96.2 (F) Weight: 233 lbs 07/08/2016 Blood Pressure 1: 134/82 Code: 8480-6 Heart Rate 1: 64 bpm Height: 5'9" Respiratory Rate: 20 bpm SpO2: 97% Temperature: 36.6 (C ) / 97.8 (F) Weight: 06/21/2016 Blood Pressure 1: 112/68 Code: 8480-6 BMI: 33.8 Code: 21879-8 Heart Rate 1: 64 bpm Height: 5'9" Respiratory Rate: 20 bpm SpO2: 95% Temperature: 36.3 (C ) / 97.3 (F) Weight: 229 lbs 02/23/2016 Blood Pressure 1: 128/78 Code: 8480-6 BMI: 33.4 Code: 18077-3 Heart Rate 1: 74 bpm Height: 5'9" Respiratory Rate: 24 bpm SpO2: 94% Temperature: 36.2 (C ) / 97.1 (F) Weight: 226 lbs 02/16/2016 [...] 1: 122/80 Code: 8480-6 BMI: 32.2 Code: 51252-0 Heart Rate 1: 80 bpm Height: 5'9" Respiratory Rate: 20 bpm Temperature: 37.0 (C ) / 98.6 (F) Weight: 218 lbs 08/09/2014 Blood Pressure 1: 132/84 Code: 8480-6 BMI: 33.1 Code: 37474-7 Heart Rate 1: 72 bpm Height: 5'9" Respiratory Rate: 20 bpm Temperature: 36.7 (C ) / 98.0 (F) Weight: 224 lbs 06/24/2014 Blood Pressure 1: 132/80 Code: 8480-6 BMI: 32.8 Code: 96730-0 Heart Rate 1: 68 bpm Height: 5'9" Respiratory Rate: 20 bpm Temperature: 36.4 (C ) / 97.6 (F) Weight: 222 lbs 03/22/2014 Blood Pressure 1: 128/84 Code: 8480-6 BMI: 32.5 Code: 42556-2 Heart Rate 1: 78 bpm Height: 5'9" Respiratory Rate: 22 bpm Temperature: 36.0 (C ) / 96.8 (F) Weight: 220 lbs 03/05/2014 Blood Pressure 1: 124/78 Code: 8480-6 BMI: 31.9 Code: 44339-1 Heart Rate 1: 82 bpm Height: 5'9" Respiratory Rate: 20 bpm Temperature: 35.8 (C ) / 96.4 (F) Weight: 216 lbs 01/16/2014 Blood Pressure 1: 116/68 Code: 8480-6 BMI: 33.8 Code: 36713-3 Heart Rate 1: 72 bpm Height: 5'7" Respiratory Rate: 20 bpm Temperature: 36.6 (C ) / 97.9 (F) Weight: 216 lbs 05/10/2013 Blood Pressure 1: 124/86 Code: 8480-6 BMI: 34.3 Code: 88618-8 Heart Rate 1: 84 bpm Height: 5'7" Respiratory Rate: 20 bpm Temperature: 36.9 (C ) / 98.5 (F) Weight: 219 lbs 04/17/2013 [...] 1: 116/84 Code: 8480-6 BMI: 33.1 Code: 88827-0 Heart Rate 1: 64 bpm Height: 5'9" Respiratory Rate: 20 bpm Temperature: 36.4 (C ) / 97.6 (F) Weight: 224 lbs 01/11/2013 Blood Pressure 1: 126/84 Code: 8480-6 BMI: 35.3 Code: 45781-9 Heart Rate 1: 68 bpm Height: 5'9" Respiratory Rate: 20 bpm Temperature: 36.7 (C ) / 98.1 (F) Weight: 239 lbs 11/03/2012 Blood Pressure 1: 104/70 Code: 8480-6 BMI: 34.4 Code: 55491-8 Heart Rate 1: 72 bpm Height: 5'9" Respiratory Rate: 20 bpm Temperature: 36.8 (C ) / 98.3 (F) Weight: 233 lbs 05/04/2012 Blood Pressure 1: 124/74 Code: 8480-6 BMI: 33.7 Code: 66070-8 Heart Rate 1: 84 bpm Height: 5'9" Temperature: 36.3 (C ) / 97.3 (F) Weight: 228 lbs 10/11/2011 Blood Pressure 1: 110/70 Code: 8480-6 BMI: 33.7 Code: 54805-3 Heart Rate 1: 64 bpm Height: 5'9" Temperature: 36.8 (C ) / 98.3 (F) Weight: 228 lbs 06/23/2011 Blood Pressure 1: 114/70 Code: 8480-6 BMI: 33.4 Code: 50006-9 Heart Rate 1: 80 bpm Height: 5'9" Respiratory Rate: 20 bpm Temperature: 36.7 (C ) / 98.0 (F) Weight: 226 lbs 06/14/2011 Blood Pressure 1: 118/74 Code: 8480-6 BMI: 33.4 Code: 15408-6 Heart Rate 1: 80 bpm Height: 5'9" Temperature: 37.1 (C ) / 98.7 (F) Weight: 226 lbs 12/02/2010 [place] rature: 36.7 (C) / 98.0 (F) Weight: 225 lbs 11/12/2010 Blood Pressure 1: 128/86 Code: 8480-6 Heart Rate 1: 76 bpm Respiratory Rate: 20 bpm Temperature: 36.9 (C) / 98.4 (F) Weight: 223 lbs 10/26/2010 Blood Pressure 1: 124/74 Code: 8480-6 Temperature: 24.4 (C) / 76.0 (F) 10/13/2010 Blood Pressure 1: 126/82 Code: 8480-6 BMI: 32.6 Code: 47740-9 Heart Rate 1: 68 bpm Height: 5'9" Respiratory Rate: 18 bpm Temperature: 36.3 (C ) / 97.4 (F) Weight: 221 lbs 06/24/2010 Blood Pressure 1: 108/76 Code: 8480-6 Heart Rate 1: 80 bpm Weight: 212 lbs 06/08/2010 Blood Pressure 1: 108/66 Code: 8480-6 Heart Rate 1: 72 bpm Temperature: 36.2 (C) / 97.2 (F) 05/20/2010 Blood Pressure 1: 120/72 Code: 8480-6 Heart Rate 1: 72 bpm Temperature: 36.4 (C) / 97.6 (F) 05/13/2010 Blood Pressure 1: 110/64 Code: 8480-6 04/30/2010 Blood Pressure 1: 142/82 Code: 8480-6 Temperature: 36.6 (C) / 97.8 (F) Weight: 220 lbs 02/27/2010 Blood Pressure 1: 138/80 Code: 8480-6 01/22/2010 Blood Pressure 1: 140/92 Code: 8480-6 BMI: 31.3 Code: 88239-1 Heart Rate 1: 60 bpm Height: 5'10" Temperature: 36.7 (C ) / 98.0 (F) Weight: 218 lbs Functional Status No Functional Status data History of Present Illness Symptom Name Status Resu lt Effective Date Notes Quality regurgitation of acid 09/27/2018 None Quality worsening 09/27/2018 None Quality heartburn 09/27/2018 None Quality chronic 04/24/2018 None Glucose monitoring rar yulia checks 04/24/2018 None Blood glucose levels 1 00-110 04/24/2018 None Location on the neck 04/24/2018 None Location diffusely in back 04/24/2018 None Location on the right hand 04/24/2018 None Quality chronic. 04/24/2018 Patient needs written statement to proce ed with surgery hyperglycemia Quality ch ronic 12/27/2017 None hyperglycemia Quality gl ucose intolerance. 12/27/2017 Current A1c is 6.5 hyperlipidemia Labs TOTA L CHOL;174 12/27/2017 None hyperlipidemia Labs TG;2 64 12/27/2017 None hyperlipidemia Quality i ncreased TG 12/27/2017 None hyperlipidemia Labs LDL; 66 12/27/2017 None hyperlipidemia Labs HDL: 55 12/27/2017 None hyperlipidemia Labs RATI O; 3.2 12/27/2017 None back pain Location thora cic spine 10/13/2017 None back pain Quality acute 10/13/2017 None back pain Quality aching 10/13/2017 None back pain Quality burning 10/13/2017 None back pain Onset and Resolution ongoing 10/13/2017 None dyspnea Quality acute 10/12/2017 None dyspnea Quality breathle ssness 10/12/2017 None dyspnea Quality fatigued respiratory muscles 10/12/2017 None dyspnea Quality labored breathing 10/12/2017 None dyspnea Quality shortnes s of breath 10/12/2017 None dyspnea Onset and Resolution ongoing 10/12/2017 None rib pain Quality dull 10/12/2017 None rib pain Exacerbating Factors coughing 10/12/2017 None rib pain Exacerbating Factors deep breathing 10/12/2017 None neck pain Location in th e cervical spine 05/25/2017 None neck pain Quality acute 05/25/2017 None neck pain Quality aching 05/25/2017 None neck pain Quality throbb ing 05/25/2017 None neck pain Quality worsen ing 05/25/2017 None neck pain Onset and Resolution ongoing 05/25/2017 None back pain Location diffu sely 01/03/2017 None back pain Quality chronic 01/03/2017 None back pain Onset and Resolution ongoing 01/03/2017 Patient was referred back from Dr Raines to rule out rheumatoid arthritis. back pain Location Cerv[facility]. 01/03/2017 Surgery is pending due to medical clearance with hematology back pain Location lumba r spine 01/03/2017 None gastroesophageal reflux Quality heartburn 09/23/2016 None gastroesophageal reflux Quality improving 09/23/2016 Doxycycline has GERD flar ed up. Patient has been eating before and after taking antibiotics tick bite Quality improv ing 09/23/2016 None tick bite Location on th e back 09/23/2016 None tick bite Location Upper Back 09/03/2016 None tick bite Quality ongoing 09/03/2016 None back pain Quality consta nt 07/08/2016 None back pain Quality chronic 07/08/2016 None back pain Quality discom fort 07/08/2016 None back pain Quality worsen ing 07/08/2016 None back pain Quality radiat ing 07/08/2016 None back pain Radiating down the right leg 07/08/2016 None sore throat Location dif fusely 06/21/2016 None sore throat Quality stab joe 06/21/2016 None sore throat Onset and Resolution ongoing 06/21/2016 None sore throat Onset of Symptom 1 weeks ago 06/21/2016 None cough Quality dry 06/21/2016 None cough Quality hacking 06/21/2016 None cough Location in the roat 06/21/2016 None cough Onset of Symptom 3 -4 days ago 06/21/2016 None fever Quality acute 06/21/2016 None sore throat Quality acute 06/21/2016 None sore throat Onset and Resolution sudden in onset 06/21/2016 None cough Location in the roat 02/23/2016 None cough Quality acute 02/23/2016 None cough Quality dry 02/23/2016 None cough Quality hacking 02/23/2016 None cough Onset and Resolution gradual in resolution 02/23/2016 None cough Onset of Symptom 2 weeks ago 02/23/2016 None chest congestion Quality acute 02/23/2016 None chest congestion Quality painful 02/23/2016 None chest congestion Quality thick secretions 02/23/2016 None chest congestion Onset of Symptom 2 weeks ago 02/23/2016 None wheezing Location diffus yulia 02/23/2016 None wheezing Quality acute 02/23/2016 None wheezing Quality expirat ory only 02/23/2016 None wheezing Onset of Symptom 2 weeks ago 02/23/2016 None postnasal drip Quality a cute 02/23/2016 None postnasal drip Quality i ntermittent 02/23/2016 None postnasal drip Quality p urulent 02/23/2016 None postnasal drip Quality y ellow 02/23/2016 None postnasal drip Quality w orsening 02/23/2016 None postnasal drip Onset and Resolution sudden in onset 02/23/2016 None postnasal drip Onset of Symptom 2 weeks ago 02/23/2016 None fatigue Quality acute 02/23/2016 None fatigue Quality intermit tent 02/23/2016 None fatigue Quality worsening 02/23/2016 None fatigue Onset and Resolution sudden in onset 02/23/2016 None fatigue Onset of Symptom 2 weeks ago 02/23/2016 None shortness of breath Quality acute 02/23/2016 None shortness of breath Quality breathlessness 02/23/2016 None shortness of breath Quality chest tightness 02/23/2016 None shortness of breath Quality fatigued respiratory muscles 02/23/2016 None shortness of breath Quality constant 02/23/2016 None shortness of breath Onset and Resolution gradual in onset 02/23/2016 None shortness of breath Onset of Symptom 2 weeks ago 02/23/2016 None fever Quality acute 02/23/2016 None fever Quality intermitte nt 02/23/2016 None fever Onset and Resolution resolved 02/23/2016 None sinus congestion Location on both sides 02/16/2016 None sinus congestion Quality fullness 02/16/2016 None sinus congestion Quality pain 02/16/2016 None sinus congestion Quality pressure 02/16/2016 None sinus congestion Onset and Resolution ongoing 02/16/2016 None cough Quality hacking 02/16/2016 None cough Onset and Resolution ongoing 02/16/2016 None cough Location in the th roat 02/16/2016 None sinus congestion Onset of Symptom 1 weeks ago 02/16/2016 None cough Onset of Symptom 1 weeks ago 02/16/2016 None sinus congestion Quality acute 02/16/2016 None sinus pain Location diff usely 02/16/2016 None sinus pain Quality acute 02/16/2016 None hypertension Quality chr onic 02/11/2015 None hypertension Quality imp roving 02/11/2015 None pain, generalized Location diffusely 01/28/2015 None pain, generalized Quality aching 01/28/2015 None pain, generalized Quality shocks 01/28/2015 None pain, generalized Onset of Symptom 1 days ago 01/28/2015 None chest pain/pressure Location diffusely 01/28/2015 None chest pain/pressure Quality acute 01/28/2015 None chest pain/pressure Quality heavy 01/28/2015 None chest pain/pressure Onset of Symptom 7 days ago 01/28/2015 None paresthesia Location lef t cheek and jaw 01/28/2015 None paresthesia Quality acute 01/28/2015 None paresthesia Quality pins and needles 01/28/2015 None paresthesia Quality numb ness 01/28/2015 None paresthesia Onset of Symptom 2 days ago 01/28/2015 None sinusitis Location diffu sely 12/06/2014 None sinusitis Quality pain 12/06/2014 None sinusitis Quality pressu re 12/06/2014 None sinusitis Quality purule nt 12/06/2014 None sinusitis Quality fullne ss 12/06/2014 None sinusitis Onset and Resolution gradual in onset 12/06/2014 None sinusitis Onset of Symptom 4 days ago 12/06/2014 Has been using flonase wi th no relief sinusitis Quality clear 12/06/2014 None sinusitis Quality thin 12/06/2014 None fever Onset and Resolution sudden in onset 12/06/2014 subjectively felt like yeni weeks had fever because she was cold all day yesterday, both children had similar s/s. Had PCN at home and took some with minimal improvement. Has tried Flonase with some improvement. sinusitis Location diffu sely 08/09/2014 None sinusitis Quality pain 08/09/2014 None sinusitis Quality pressu re 08/09/2014 None sinusitis Quality purule nt 08/09/2014 None sinusitis Quality fullne ss 08/09/2014 None sinusitis Quality yellow 08/09/2014 None sinusitis Quality thick 08/09/2014 None sinusitis Onset and Resolution ongoing 08/09/2014 Has been using flonase at home but it is sinusitis Onset of Symptom 1 weeks ago 08/09/2014 face hurts under eyes, ea rs hurt, sinuses are draining, sore throat sore throat Location dif fusely 06/24/2014 None sore throat Quality achi ng 06/24/2014 None sore throat Quality burn ing 06/24/2014 None sore throat Onset of Symptom 4 days ago 06/24/2014 None chest congestion Quality acute 03/22/2014 None chest congestion Quality thick secretions 03/22/2014 None chest congestion Onset of Symptom 8 days ago 03/22/2014 None otalgia Location on the left 03/22/2014 None otalgia Quality acute 03/22/2014 None otalgia Quality throbbing 03/22/2014 None otalgia Quality pressure 03/22/2014 None otalgia Onset of Symptom 8 days ago 03/22/2014 None cough Location in the th roat 03/22/2014 None cough Quality acute 03/22/2014 None cough Quality dry 03/22/2014 None cough Onset of Symptom 1 0 days ago 03/22/2014 None elbow pain Location on t he right 03/05/2014 None elbow pain Location in t he lateral region 03/05/2014 None elbow pain Radiating for arm 03/05/2014 None elbow pain Quality tende rness 03/05/2014 None elbow pain Quality sharp pain 03/05/2014 None elbow pain Onset and Resolution sudden in onset 03/05/2014 patient was at own home walking down the stairs and missed the last step when she fell on Rt. elbow, on concrete step. This occurred approximately Mid November. elbow pain Onset of Symptom 3 months ago 03/05/2014 None sinusitis Location diffu sely 01/16/2014 None sinusitis Quality fullne ss 01/16/2014 None sinusitis Quality pain 01/16/2014 None sinusitis Quality pressu re 01/16/2014 None sinusitis Quality purule nt 01/16/2014 None sinusitis Onset and Resolution ongoing 01/16/2014 None sinusitis Onset of Symptom 1 1/2 weeks ago 01/16/2014 None sinusitis Quality brown 01/16/2014 None sinus congestion Location on both sides 01/16/2014 None sinus congestion Quality acute 01/16/2014 None sinus congestion Quality pressure 01/16/2014 None sinus pain Location diff usely 01/16/2014 None sinus pain Quality acute 01/16/2014 None diabetes mellitus Glucose monitoring every few days 05/10/2013 None diabetes mellitus Blood glucose levels 100's 05/10/2013 None diabetes mellitus Blood glucose levels between 60 and 120 05/10/2013 None diabetes mellitus Test results HgbA1c level 6.1 05/10/2013 None otalgia Location on the left 04/17/2013 None otalgia Quality acute 04/17/2013 None otalgia Quality throbbing 04/17/2013 None otalgia Onset of Symptom 1 weeks ago 04/17/2013 None sinus congestion Location on both sides 04/17/2013 None sinus congestion Quality acute 04/17/2013 None sinus congestion Quality fullness 04/17/2013 None sinus congestion Quality pressure 04/17/2013 None sinus congestion Onset of Symptom 1 week ago 04/17/2013 None cough Location in the th roat 03/05/2013 None cough Quality productive 03/05/2013 None cough Quality improving 03/05/2013 None otalgia Location on both sides 03/05/2013 None otalgia Quality improving 03/05/2013 None otalgia Location on the right 03/05/2013 more pressure sore throat Location dif fusely 03/05/2013 None sore throat Quality impr oving 03/05/2013 None otalgia Location on the right 03/02/2013 None otalgia Quality acute 03/02/2013 None otalgia Quality throbbing 03/02/2013 None cough Location in the roat 03/02/2013 None cough Quality productive 03/02/2013 Yelow Sputum sore throat Location dif fusely 03/02/2013 None sore throat Quality achi ng 03/02/2013 None cough Location in the roat 03/01/2013 None cough Quality productive 03/01/2013 yellow sputum cough Onset of Symptom 5 days ago 03/01/2013 None sore throat Location dif fusely 03/01/2013 None sore throat Quality achi ng 03/01/2013 None sore throat Onset of Symptom 5 days ago 03/01/2013 None otalgia Location on the right 03/01/2013 None otalgia Quality throbbing 03/01/2013 None otalgia Onset of Symptom 1 days ago 03/01/2013 None diabetes mellitus Glucose monitoring rarely checks 02/22/2013 Only checking once every few days diabetes mellitus Blood glucose levels between 90-120's 02/22/2013 Currently taking metformin 500mg BID hyperlipidemia Onset and Resolution ongoing 01/11/2013 None hyperglycemia Quality ac anastasia 01/11/2013 found on screening lab fo r work rash Location-Major on t he back 11/03/2012 None rash Color pink 11/03/2012 None rash Onset and Resolution sudden in onset this morning 11/03/2012 None rash Quality painful 11/03/2012 Describes pain as sharp shooting pains gastroesophageal reflux Quality constant 05/04/2012 None gastroesophageal reflux Quality heartburn 05/04/2012 None gastroesophageal reflux Quality regurgitation of acid 05/04/2012 None gastroesophageal reflux Quality worsening 05/04/2012 None gastroesophageal reflux Onset and Re solution ongoing 05/04/2012 None gastroesophageal reflux Onset of Symptom during adulthood 05/04/2012 None sore throat Location on both sides 10/11/2011 None sore throat Location dif fusely 10/11/2011 None sore throat Quality achi ng 10/11/2011 None sore throat Quality cons tant 10/11/2011 None sore throat Quality scra tchy 10/11/2011 None sore throat Quality thro bbing 10/11/2011 None sore throat Quality wors ening 10/11/2011 None sore throat Onset and Resolution sudden in onset 10/11/2011 None sore throat Onset of Symptom 3 days ago 10/11/2011 None sore throat Limitation on Activities limits oral intake 10/11/2011 None hoarseness Quality breat hy voice 10/11/2011 None hoarseness Quality highe r pitch 10/11/2011 None hoarseness Quality const ant 10/11/2011 None hoarseness Quality raspy 10/11/2011 None hoarseness Onset and Resolution sudden in onset 10/11/2011 None hoarseness Onset of Symptom 3 days ago 10/11/2011 None sinus pain Quality fulln ess 06/23/2011 None sinus congestion Location on both sides 06/14/2011 None sinus congestion Quality constant 06/14/2011 None sinus congestion Quality fullness 06/14/2011 None sinus congestion Quality pain 06/14/2011 None sinus congestion Onset and Resolution sudden in onset 06/14/2011 None sinus congestion Onset of Symptom 1 weeks ago 06/14/2011 None sinus congestion Severity moderate 06/14/2011 None sinus congestion Frequency of Episodes increasing 06/14/2011 None cough Location in the brent ng 06/14/2011 None cough Quality constant 06/14/2011 None cough Quality interrupts sleep 06/14/2011 None cough Quality productive 06/14/2011 None cough Onset and Resolution sudden in onset 06/14/2011 None cough Onset of Symptom 1 weeks ago 06/14/2011 None cough Limitation on Activities moderately limits activities 06/14/2011 None sore throat Location on both sides 06/14/2011 None sore throat Quality achi ng 06/14/2011 None sore throat Quality cons tant 06/14/2011 None sore throat Onset and Resolution sudden in onset 06/14/2011 None sore throat Onset of Symptom 1 weeks ago 06/14/2011 None sore throat Limitation on Activities does not limit oral intake 06/14/2011 None otalgia Location on both sides 06/14/2011 None otalgia Quality constant 06/14/2011 None otalgia Quality throbbing 06/14/2011 None otalgia Onset and Resolution sudden in onset 06/14/2011 None otalgia Onset of Symptom 3 days ago 06/14/2011 None otalgia Severity moderate 06/14/2011 None otalgia Frequency of Episodes increasing 06/14/2011 None sore throat Location on both sides 12/02/2010 None sore throat Quality burn ing 12/02/2010 None sore throat Quality cons tant 12/02/2010 None sore throat Onset and Resolution ongoing 12/02/2010 started yesterday morning headache Location on bot h sides 12/02/2010 None headache Quality constant 12/02/2010 None headache Onset and Resolution ongoing 12/02/2010 started yesterday hyperlipidemia Labs HDL: 51 11/12/2010 None hyperlipidemia Labs LDL; 167 11/12/2010 None hyperlipidemia Labs TOTA L CHOL;282 11/12/2010 None hyperlipidemia Labs TG;2 78 11/12/2010 None hypertension Quality sta ble 11/12/2010 None rash Location-Major on t he legs 11/12/2010 None rash Onset and Resolution resolved since stopped lisinopril/HCT 10/13/2010 None hypertension Onset and Resolution ongoing 10/13/2010 None headache Quality intermi ttent 10/13/2010 when BP elevated follow up Illness sympto ms improved 06/24/2010 None abdominal pain Quality i mproving 06/24/2010 still has drain in place- -sees surgery tomorrow rash Location-Extremities on both arms 04/30/2010 worse on arms rash Location-Extremities on both legs 04/30/2010 None high blood pressure Onset and Resolution ongoing 04/30/2010 None chest pain/pressure Quality pressure 04/30/2010 None near-syncope/dizziness Quality intermittent 04/30/2010 with increased blood pres sure headache Location in the frontal area 01/22/2010 None headache Quality acute 01/22/2010 None headache Quality throbbi ng 01/22/2010 None headache Onset of Symptom 2 weeks ago 01/22/2010 None high blood pressure Quality worsening 01/22/2010 None high blood pressure Quality chronic 01/22/2010 None high blood pressure Onset of Symptom 1 months ago/ started rising to around 160/100 at home. Has been increasing over past 6 months, has been at its peak the last month with headaches the past 2 weeks without resolution. 01/22/2010 None high blood pressure Triggers stress 01/22/2010 None dizziness Quality interm ittent 01/22/2010 None depression Onset and Resolution ongoing 01/22/2010 None gastroesophageal reflux Quality worsening 01/22/2010 taking up to 4 pepcid a d ay Advance Directives No Advance Directive data Encounters Encounter Performer Loca tion Codes Date ([id number]) OFFICE/OUTPA TIENT VISIT EST Diagnosis: Gastro-esophageal reflux disease without esophagitis[ICD10: K21.9] Diagnosis: Urinary tract infection, site not specified[ICD10: N39.0] Diagnosis: Ventral hernia without obstruction or gangrene[ICD10: K43.9] Jessica Anderson [employer] CPT-4: 00062 09/27/2018 ([id number]) OFFICE/OUTPA TIENT VISIT EST Diagnosis: Essential (primary) hypertension[ICD10: I10] Diagnosis: Type 2 diabetes mellitus without complications[ICD10: E11.9] Diagnosis: Carpal tunnel syndrome, right upper limb[ICD10: G56.01] Diagnosis: Primary insomnia[ICD10: F51.01] Jessica Anderson [employer] CPT-4: 89064 04/24/2018 ([id number]) OFFICE/OUTPA TIENT VISIT EST Diagnosis: Type 2 diabetes mellitus without complications[ICD10: E11.9] Diagnosis: Mixed hyperlipidemia[ICD10: E78.2] Diagnosis: Essential (primary) hypertension[ICD10: I10] Diagnosis: Pain in unspecified joint[ICD10: M25.50] Jessica SUTTON [employer] CPT-4: 49715 12/27/2017 ([id number]) NURSE/OUTPAT IENT VISIT EST Diagnosis: Hematuria, unspecified[ICD10: R31.9] Jessica Anderson [employer] CPT-4: 85620 10/13/2017 ([id number]) OFFICE/OUTPA TIENT VISIT EST Diagnosis: Pleurodynia[ICD10: R07.81] Sofi GEE [facility] CPT-4: 70892 10/12/2017 ([id number]) OFFICE/OUTPA TIENT VISIT EST Diagnosis: Acute bronchitis, unspecified[ICD10: J20.9] Sofi COOMBS [facility] CPT-4: 95828 09/16/2017 ([id number]) OFFICE/OUTPA TIENT VISIT EST Diagnosis: Other specified postprocedural states[ICD10: Z98.890] Diagnosis: Cellulitis of neck[ICD10: L03.221] Diagnosis: Tachycardia, unspecified[ICD10: R00.0] Jessica SALAZAR [facility] CPT-4: 66836 05/25/2017 ([id number]) OFFICE/OUTPA TIENT VISIT EST Diagnosis: Lumbago with sciatica, right side[ICD10: M54.41] Diagnosis: Pain in unspecified joint[ICD10: M25.50] Jessica SALAZAR [facility] CPT-4: 87893 01/03/2017 ([id number]) OFFICE/OUTPA TIENT VISIT EST Diagnosis: Bitten or stung by nonvenomous insect and other nonvenomous arthropods, subsequent encounter[ICD10: W57.XXXD] Diagnosis: Essential (primary) hypertension[ICD10: I10] Diagnosis: Low back pain[ICD10: M54.5] Jessica GEE [facility] CPT-4: 08104 09/23/2016 OFFICE/OUTPATIENT SIT EST Diagnosis: Bitten or stung by nonvenomous insect and other nonvenomous arthropods, initial encounter[ICD10: W57.XXXA] Diagnosis: Essential (primary) hypertension[ICD10: I10] Kaitlynn Mosley JESSICA SALAZAR [employer] [facility] CPT-4: 95686 09/03/2016 ([id number]) OFFICE/OUTPA TIENT VISIT EST Diagnosis: Low back pain[ICD10: M54.5] Diagnosis: Radiculopathy, lumbosacral region[ICD10: M54.17] Jesisca SMITHLINE DomingaLloyd [facility] CPT-4: 46500 07/08/2016 ([id number]) OFFICE/OUTPA TIENT VISIT EST Diagnosis: Acute pharyngitis, unspecified[ICD10: J02.9] Jessica SMITHLINE DomingaLloyd HERMAN SALAZAR [facility] CPT-4: 02679 06/21/2016 ([id number]) OFFICE/OUTPA TIENT VISIT EST Diagnosis: Cough[ICD10: R05] Diagnosis: Fever, unspecified[ICD10: R50.9] Janiya MENDENHALLQUELINE DomingaLloyd [facility] CPT-4: 21540 02/23/2016 ([id number]) OFFICE/OUTPA TIENT VISIT EST Diagnosis: Acute sinusitis, unspecified[ICD10: J01.90] Jessica Marlen JESSICA DomingaLloyd [facility] CPT-4: 38735 02/16/2016 OFFICE/OUTPATIENT SIT EST Diagnosis: Type 2 diabetes mellitus without complications[ICD10: E11.9] Diagnosis: Gastro-esophageal reflux disease without esophagitis[ICD10: K21.9] Diagnosis: Ventral hernia without obstruction or gangrene[ICD10: K43.9] Suki JhonMoses VO [facility]oyd [facility] CPT-[facility]: 30813 02/11/2015 OFFICE/OUTPATIENT SIT EST 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] Diagnosis: Essential (primary) hypertension[ICD10: I10] Suki VO S. Lizz CARBAJAL [facility] CPT-4: 41108 01/28/2015 OFFICE/OUTPATIENT SIT EST Diagnosis: SINUSITIS, ACUTE[ICD9: 461.9] Kaitlynn VO [facility]oyd [facility] CPT-4: 46763 12/06/2014 ([id number]) OFFICE/OUTPA TIENT VISIT EST Diagnosis: SINUSITIS, ACUTE[ICD9: 461.9] [facility]nn [facility] CPT-4: 24932 08/09/2014 ([id number]) OFFICE/OUTPA TIENT VISIT EST Diagnosis: TONSILLITIS, ACUTE[ICD9: 463] Suki GEE DO [facility] CPT-4: 47763 06/24/2014 OFFICE/OUTPATIENT SIT EST Diagnosis: SINUSITIS, ACUTE[ICD9: 461.9] Diagnosis: EUSTACHIAN TUBE DYSFUNCTION[ICD9: 381.81] Diagnosis: COUGH[ICD9: 786.2] Suki GEE DO [facility] CPT-4: 22074 03/22/2014 OFFICE/OUTPATIENT SIT EST Diagnosis: Elbow pain, right[ICD9: 719.42] Suki GEE DO [facility] CPT-4: 31930 03/05/2014 OFFICE/OUTPATIENT SIT EST Diagnosis: SINUSITIS, ACUTE[ICD9: 461.9] Jessica GEE DO [facility] CPT-4: 48355 01/16/2014 ([id number]) OFFICE/OUTPA TIENT VISIT EST Diagnosis: GROSS HEMATURIA[ICD9: 599.71] Jessica GEE [facility] CPT-4: 48043 10/19/2013 ([id number]) OFFICE/OUTPA TIENT VISIT EST Diagnosis: DM W/O COMPLICATION TYPE II[ICD9: 250.00] Diagnosis: HYPERLIPIDEMIA NEC/NOS[ICD9: 272.4] Jessica SALAZAR [facility] CPT-4: 94379 05/10/2013 ([id number]) OFFICE/OUTPA TIENT VISIT EST Diagnosis: SINUSITIS, ACUTE[ICD9: 461.9] Jessica GEE DO [facility] CPT-4: 48137 04/17/2013 OFFICE/OUTPATIENT SIT EST Diagnosis: OTITIS MEDIA NOS[ICD9: 382.9] Diagnosis: COUGH[ICD9: 786.2] Suki GEE DO [facility] CPT-4: 59267 03/05/2013 OFFICE/OUTPATIENT SIT EST Diagnosis: COUGH[ICD9: 786.2] Diagnosis: BRONCHITIS, ACUTE[ICD9: 466.0] Suki GEE DO [facility] CPT-4: 79434 03/02/2013 OFFICE/OUTPATIENT SIT EST Diagnosis: COUGH[ICD9: 786.2] Diagnosis: OTITIS MEDIA NOS[ICD9: 382.9] Diagnosis: BRONCHITIS, ACUTE[ICD9: 466.0] [facility] C[facility]: 12322 03/01/2013 OFFICE/OUTPATIENT SIT EST Diagnosis: DM W/O COMPLICATION TYPE II, UNCONTROLLED[ICD9: 250.02] Jessica SUTTON [facility] CPT-4: 03409 02/22/2013 ([id number]) PREV VISIT E ST AGE 40-64 Diagnosis: DM W/O COMPLICATION TYPE II, UNCONTROLLED[ICD9: 250.02] Diagnosis: HYPERTENSION[ICD9: 401.9] Diagnosis: ROUTINE MEDICAL EXAM[ICD9: V70.0] Jessica SUTTON [facility] CPT-4: 36084 01/11/2013 OFFICE/OUTPATIENT SIT EST Diagnosis: HZ (HERPES ZOSTER)[ICD9: 053.9] Kaitlynn Mosley [facility] CPT-4: 68186 11/03/2012 OFFICE/OUTPATIENT SIT EST Diagnosis: URINARY TRACT INFECTION[ICD9: 599.0] Diagnosis: GERD[ICD9: 530.81] Diagnosis: PHARYNGITIS, ACUTE[ICD9: 462] Jessica SMITHLINE DomingaLloyd [facility] CPT-4: 26122 05/04/2012 OFFICE/OUTPATIENT SIT EST Diagnosis: COUGH[ICD9: 786.2] Diagnosis: SINUSITIS, ACUTE[ICD9: 461.9] Diagnosis: PHARYNGITIS, ACUTE[ICD9: 462] Jessica SMITHLINE DomingaLloyd [facility] CPT-4: 73530 10/11/2011 OFFICE/OUTPATIENT SIT EST Diagnosis: COUGH[ICD9: 786.2] Diagnosis: SINUSITIS, ACUTE[ICD9: 461.9] Diagnosis: PHARYNGITIS, ACUTE[ICD9: 462] Diagnosis: ALLERGIC RHINITIS[ICD9: 477.9] Xiomara VO DomingaLloyd [facility] CPT-4: 42134 06/23/2011 OFFICE/OUTPATIENT SIT EST Diagnosis: COUGH[ICD9: 786.2] Diagnosis: SINUSITIS, ACUTE[ICD9: 461.9] Diagnosis: PHARYNGITIS, ACUTE[ICD9: 462] Jessica SUTTONNDER DO [facility] CPT-4: 42980 06/14/2011 OFFICE/OUTPATIENT SIT EST Diagnosis: SINUSITIS, ACUTE[ICD9: 461.9] Diagnosis: PHARYNGITIS, ACUTE[ICD9: 462] Jessica VO S. ORENDER DO [facility] CPT-4: 42776 12/02/2010 OFFICE/OUTPATIENT SIT EST Diagnosis: HYPERTENSION[ICD9: 401.9] Diagnosis: HYPERLIPIDEMIA NEC/NOS[ICD9: 272.4] Diagnosis: DERMATITIS NOS[ICD9: 692.9] Jessica VO SLloyd ORENDER DO [facility] CPT-4: 13892 11/12/2010 OFFICE/OUTPATIENT SIT EST Jessica VO S. HERMAN NDER DO [facility] CPT-4: 70959 10/13/2010 ([id number]) OFFICE/OUTPA TIENT VISIT EST Jessica VO S. HERMAN NDER DO [facility] CPT-4: 22136 06/24/2010 ([id number]) OFFICE/OUTPA TIENT VISIT EST Jessica VO S. HERMAN NDER DO [facility] CPT-4: 08851 06/08/2010 ([id number]) OFFICE/OUTPA TIENT VISIT EST Xiomara Rodriguez JESSICA SLloyd SUTTONNDER DO [facility] CPT-4: 69876 05/20/2010 ([id number]) OFFICE/OUTPA TIENT VISIT EST Jessica VO S. HERMAN NDER DO [facility] CPT-4: 62074 04/30/2010 ([id number]) OFFICE/OUTPA TIENT VISIT, EST Jessica VO S. HERMAN NDER DO [facility] CPT-4: 17023 01/22/2010 Plan of Care Planned Activity Notes C odes Status Date Visit Diagnosis Plan: Urinary tract infe ction, site not specified Discussion: Bactrim DS 1 po BID for 1 we ek ICD-9 : 599.0 ICD-10 : N39.0 09/27/2018 Visit Diagnosis Plan: Ventral hernia wit hout obstruction or gangrene Discussion: Has had repaired before--dis cussed symptoms of heniation/strangulation ICD-9 : 553.20 ICD-10 : K43.9 09/27/2018 Visit Diagnosis Plan: Gastro-esophageal reflux disease without esophagitis Discussion: Continue current meds See jc callejas for EGD Discussed would need bridge with lovenox if have to hold coumadin for longer than a 2-3 days ICD-9 : 530.81 ICD-10 : K21.9 09/27/2018 Appointment: Jessica Gee WPtel: [facility] [place] [id number] ACUTE ILLNESS 09/27/2018 Visit Diagnosis Plan: Essential (primary) hypertension Discussion: Stable ICD-9 : 401.9 ICD-10 : I10 04/24/2018 Visit Diagnosis Plan: Type 2 diabetes me llitus without complications Discussion: Check CMP, Lipids Accuchecks daily ICD-9 : 250.00 ICD-10 : E11.9 04/24/2018 Visit Diagnosis Plan: Primary insomnia Discussion: Trial of amitriptylene 25mg po q HS ICD-9 : 780.52 ICD-10 : F51.01 04/24/2018 Visit Diagnosis Plan: Carpal tunnel synd yeny, right upper limb Discussion: Scheduled for surgery on May by Dr. Norris ICD-9 : 354.0 ICD-10 : G56.01 04/24/2018 Appointment: Jessica Gee WPtel: [facility] ACUTE ILLNESS 04/24/2018 Patient Education: celecoxib- [employer] Coupon [id number] Completed 04/24/2018 Patient Education: amitriptyline- [employer] Coupon [id number] Completed 04/24/2018 Visit Diagnosis Plan: Essential (primary) hypertension Discussion: Stable ICD-9 : 401.9 ICD-10 : I10 12/27/2017 Visit Diagnosis Plan: Pain in unspecified joint Discussion: Increase celebrex to 200mg po BID Add Vitamin D3 5000u daily Increase activity Going to have carpal tunnel surgery to both hands--seeing ortho ICD-9 : 719.40 ICD-10 : M25.50 12/27/2017 Visit Diagnosis Plan: Type 2 diabetes me llitus without complications Discussion: Lab discussed Take both 500m g metformin at same time to ascertain compliance Accuchecks daily Getting fllu shot at work Follow Up: 3 months ICD-9 : 250.00 ICD-10 : E11.9 12/27/2017 Appointment: Jessica Gee WPtel: [address] [place], [place] [phone] FOLLOW UP 12/27/2017 Patient Education: Patient Medication Summary Completed 12/27/2017 Patient Education: Patient Medication Summary Completed 12/19/2017 Care Plan: MAMMOGRAM BOTH BREASTS LOINC : 17373-1 Pending 12/19/2017 Patient Education: Patient Medication Summary Completed 12/16/2017 Care Plan: PT Pending 12/16/2017 Care Plan: ASSAY THYROID STIM HORMONE Pending 12/16/2017 Care Plan: ASSAY OF FREE THYROXINE Pending 12/16/2017 Care Plan: LIPID PANEL LOINC : 50983-0 Pending 12/16/2017 Care Plan: CBC Pending 12/16/2017 Care Plan: A1C HPLC LO INC : 90992-9 Pending 12/16/2017 Patient Education: Patient Medication Summary Completed 10/17/2017 Care Plan: CT ANGIOGRAPHY CHEST LOINC : 12890-9 Pending 10/17/2017 Patient Education: Patient Medication Summary Completed 10/14/2017 Care Plan: CT ANGIOGRAPHY CHEST LOINC : 11066-9 Pending 10/14/2017 Appointment: Jessica Gee WPtel: [address] [place], [place] [id number] [facility] 10/13/2017 Patient Education: Patient Medication Summary Completed 10/13/2017 Visit Diagnosis Plan: Pleurodynia Di scussion: patient sent for stat cxray. medrol dose pack prescribed for symptom management. instructed to perform deep breathing exercises at home to prevent atelectasis or pneumonia. will notify patient of results of xray and order additional tests/medications as needed. ICD-9 : 786.50 ICD-10 : R07.81 10/12/2017 Appointment: Sofi Gresham [address] [place] [address] ACUTE ILLNESS 10/12/2017 Patient Education: Patient Medication Summary Completed 10/12/2017 Visit Diagnosis Plan: Acute bronchitis, unspecified Discussion: medrol dose pack and zpack prescribed for symptoms. tessalon perles for cough as well. increase fluid intake. perform deep breathing exercises at home to prevent worsening infection. call next week if no improvement or worsening symptoms. ICD-9 : 466.0 ICD-10 : J20.9 09/16/2017 Appointment: Sofi Gresham [address] [place] [address] ACUTE ILLNESS 09/16/2017 Patient Education: Patient Medication Summary Completed 09/16/2017 Appointment: Jessica Gee WPtel: [address] [place] [address] CANCELED 08/10/2017 Visit Diagnosis Plan: Other specified postprocedural s tates Discussion: Fwup with neurosurgery ICD-9 : V45.89 ICD-10 : Z98.890 05/25/2017 Visit Diagnosis Plan: Tachycardia, unspecified Discussion: Go home and take metoprolol--patient skipped dose yesterday Follow Up: 3 months ICD-9 : 785.0 ICD-10 : R00.0 05/25/2017 Visit Diagnosis Plan: Cellulitis of neck Discussion: Continue abx and fwup with ID Just had PICC line pulled yesterday and started on Cipro ICD-9 : 682.1 ICD-10 : L03.221 05/25/2017 Appointment: Jessica Gee WPtel: [address] [place], [place] [phone] FOLLOW UP 05/25/2017 Patient Education: Patient Medication Summary Completed 05/25/2017 Visit Diagnosis Plan: Lumbago with sciatica, right britton e Discussion: Check arthritis panel Patient awaiting neck surgery before surgery will consider back surgery ICD-9 : 724.2 ICD-10 : M54.41 01/03/2017 Appointment: Jessica Gee WPtel: [address] [place], [place] [phone] ACUTE ILLNESS 01/03/2017 Patient Education: Patient Medication Summary Completed 01/03/2017 Patient Education: Patient Medication Summary Completed 12/16/2016 Care Plan: MAMMOGRAM SCREENING LOINC : 61812-3 Pending 12/16/2016 Patient Education: Patient Medication Summary Completed 10/07/2016 Care Plan: MRI LUMBAR SPINE W/O & W/DYE LOINC : 35528-6 Pending 10/07/2016 Visit Diagnosis Plan: Essential (primary) hypertension Discussion: Continue higher dose of metoprolol and monitor BP ICD-9 : 401.9 ICD-10 : I10 09/23/2016 Visit Diagnosis Plan: Low back pain Discussion: Discussed specialist referral for back--patient will check with insurance on which specialists are covered ICD-9 : 724.2 ICD-10 : M54.5 09/23/2016 Visit Diagnosis Plan: Bitten or stung by nonvenomous insect and other nonvenomous arthropods, subsequent encounter Discussion: Finish doxycycline and observe ICD-9 : E906.4 ICD-10 : W57.XXXD 09/23/2016 Appointment: Jessica Gee WPtel: [phone] 09/22 confirmed WORK IN 09/23/2016 Patient Education: Patient Medication Summary Completed 09/23/2016 Visit Plan: Tick panel at [facility] I ncrease spironolactone to 2 po am (New Rx sent) Take B/P at home/work and also come to office next week for recheck Will await lab results before starting any antibiotic 09/03/2016 Visit Plan: Tick panel at [facility] I ncrease spironolactone to 2 po am (New Rx sent) Take B/P at home/work and also come to office next week for recheck Will await lab results before starting any antibiotic 09/03/2016 Visit Plan: Tick panel at [facility] I ncrease spironolactone to 2 po am (New Rx sent) Take B/P at home/work and also come to office next week for recheck Will await lab results before starting any antibiotic 09/03/2016 Appointment: Kaitlynn Mosley WPtel: [phone] [id number] ACUTE ILLNESS 09/03/2016 Patient Education: Patient Medication Summary Completed 09/03/2016 Visit Diagnosis Plan: Low back pain Discussion: Celebrex BID PT Continue stretches at home L/S xray Follow Up: 1 months ICD-9 : 724.2 ICD-10 : M54.5 07/08/2016 Appointment: Jessica Gee WPtel: [address] [place] [address] ACUTE ILLNESS 07/08/2016 Patient Education: Patient Medication Summary Completed 07/08/2016 Care Plan: X-RAY EXAM L-S SPINE 2/3 VWS LOINC : 91463-3 Pending 07/08/2016 Visit Plan: Supportive care. Rest, Fluids, Tylenol/Motrin prn fever or bodyaches. Notify if worsening symptoms.New toothebrush in 5 days 06/21/2016 Visit NOS Plan: Plan Notes: Support mc care. Rest, Fluids... 06/21/2016 Visit Diagnosis Plan: Acute pharyngitis, unspecified Discussion: Strep Negative Supportive Care May use zyrtec 10mg q HS ICD-9 : 462 ICD-10 : J02.9 06/21/2016 Appointment: Jessica Gee WPtel: [address] [place] [address] ACUTE ILLNESS 06/21/2016 Patient Education: Patient Medication Summary Completed 06/21/2016 Visit Plan: No pulseox last week to compare to today, but she does sound diminished today Studies as above ordered Continue cefdinir until results received Increase albuterol treatments to q4-6hrs PRN Continue s upportive care 02/23/2016 Visit Plan: No pulseox last week to compare to today, but she does sound diminished today Studies as above ordered Continue cefdinir until results received Increase albuterol treatments to q4-6hrs PRN Continue s upportive care 02/23/2016 Appointment: Janiya Gregorio [address] [place] [address] ACUTE ILLNESS 02/23/2016 Patient Education: Patient Medication Summary Completed 02/23/2016 Care Plan: CHEST X-RAY 2VW FRONTAL&LATL LOINC : 93387-0 Pending 02/23/2016 Visit Plan: Saline nasal flushes pr n. Tylenol/Motrin prn headache. Notify if persists/symptoms worsening. 02/16/2016 Appointment: Jessica Gee WPtel: [phone] ACUTE ILLNESS 02/16/2016 Patient Education: Patient Medication Summary Completed 02/16/2016 Visit Plan: Discussed labs Continue Toprol at 200 mg PO daily Increase Aciphex to BID Notify if increase of Aciphex does not give relief. Repeat PT/INR in 2 weeks. 02/11/2015 Visit Plan: Discussed labs Continue Toprol at 200 mg PO daily Increase Aciphex to BID Notify if increase of Aciphex does not give relief. Repeat PT/INR in 2 weeks. 02/11/2015 Appointment: Suki Barahona WPtel: [phone] 02/10 confirmed ~sl FOLLOW UP 02/11/2015 Patient Education: Patient Medication Summary Completed 02/11/2015 Patient Education: Patient Medication Summary Completed 02/06/2015 Care Plan: POC PROTIME/INR LOINC : 04088-0 Pending 02/06/2015 Visit Plan: Increase Toprol XL 200 mg to one full tablet daily (is currently taking only 1/2 tablet) To [facility] for EKG today Monitor daily BP Notify of any changes- increased numbness, weakness, headache etc. 01/28/2015 Visit Plan: Increase Toprol XL 200 mg to one full tablet daily (is currently taking only 1/2 tablet) To [facility] for EKG today Monitor daily BP Notify of any changes- increased numbness, weakness, headache etc. 01/28/2015 Appointment: Suki Barahona WPtel: [phone] ACUTE ILLNESS 01/28/2015 Patient Education: Patient Medication Summary Completed 01/28/2015 Visit Plan: ERx Amoxicillin and Malick nase Nasal saline, humidified air Facial heat or cold packs for comfort Increase fluids/rest Discussed s/s of worsening, go to over weekend if these occur. 12/06/2014 Visit Plan: ERx Amoxicillin and Malick nase Nasal saline, humidified air Facial heat or cold packs for comfort Increase fluids/rest Discussed s/s of worsening, go to UC over weekend if these occur. 12/06/2014 Appointment: Kaitlynn Mosley WPtel: [address] [place] [address] ACUTE ILLNESS 12/06/2014 Patient Education: Patient Medication Summary Completed 12/06/2014 Visit Plan: ERx for Amoxicillin Get PT & INR Today at [facility] Given nasal photoengraving helper and sample of Nasonex (to replace Flonase) Discussed s/s of worsening, go to /ER May use Tylenol and heat/cold packs for pain 08/09/2014 Appointment: Kaitlynn Mosley WPtel: [address] [place] [address] ACUTE ILLNESS 08/09/2014 Patient Education: Patient Medication Summary Completed 08/09/2014 Visit Plan: Strep - Negative Warm s glenda gargles Amoxicillin x 7 days 06/24/2014 Appointment: Suki Barahona WPtel: [address] [place] [address] ACUTE ILLNESS 06/24/2014 Patient Education: Patient Medication Summary Completed 06/24/2014 Visit Plan: Kenalog 40 mg/Depo Medr ol 40 mg IM Increase rest and fluids Compete Cefdinir Tessalon perles TID as needed for cough 03/22/2014 Appointment: Suki Barahona WPtel: [address] [place] [address] ACUTE ILLNESS 03/22/2014 Patient Education: Patient Medication Summary Completed 03/22/2014 Patient Education: [employer] - Antibi otics, Analgesics 18+, Oral Contraceptives F 18+ Completed 03/22/2014 Visit Plan: To for Rt. elbow x-r ay.Will follow-up with results. Continue to wear soft splint for support. 03/05/2014 Appointment: Suki Barahona WPtel: [address] [place] [address] FOLLOW UP 03/05/2014 Patient Education: Patient Medication Summary Completed 03/05/2014 Visit Plan: Saline nasal flushes pr n. Tylenol/Motrin prn headache. Notify if persists/symptoms worsening. Restart flonase 01/16/2014 Appointment: Jessica Gee WPtel: [address] [place] [address] ACUTE ILLNESS 01/16/2014 Patient Education: Patient Medication Summary Completed 01/16/2014 Appointment: Jessica Gee WPtel: [address] [place] [address] 10/19/2013 Patient Education: Patient Medication Summary Completed 10/19/2013 Appointment: Jessica Gee WPtel: [address] [place] [address] 08/08 patient canceled appt and said franny phillips call back to reschedule FOLLOW UP 08/09/2013 Visit Plan: Increase Coumadin to 6m g M-F and stay on 5mg Sat, Sun Add lipids to labs Check PT/INR in 3wks Continue metfromin at current dose and accuchecks 05/10/2013 Appointment: Jessica Gee WPtel: [address] [place] [address] 05/09 FOLLOW UP 05/10/2013 Patient Education: Patient Medication Summary Completed 05/10/2013 Visit Plan: Saline nasal flushes pr n. Tylenol/Motrin prn headache. Notify if persists/symptoms worsening. 04/17/2013 Appointment: Jessica Gee WPtel: [address] [place] [address] ACUTE ILLNESS 04/17/2013 Patient Education: Patient Medication Summary Completed 04/17/2013 Visit Plan: Complete antibiotics Al buterol nebulized treatments twice daily for the next week. Follow-up if symptoms worsen. 03/05/2013 Appointment: Suki Barahona WPtel: [address] [place] [address] FOLLOW UP 03/05/2013 Patient Education: Patient Medication Summary Completed 03/05/2013 Visit Plan: Rocephin 1 gram today M aximist treatments every 4 hours. Has a Nebulizer she will get from her [id number] Follow-up Tuesday Refused out-patient CXR because of outstanding medical bills. 03/02/2013 Appointment: Suki Barahona WPtel: [address] [place], [place] [phone] FOLLOW UP 03/02/2013 Patient Education: Patient Medication Summary Completed 03/02/2013 Visit Plan: Albuterol Nebulized roberto atment now Demo Medrol 40 mg/Kenalog 40 mg IM now. Rocephin 1 gm today Follow-up in am 03/01/2013 Appointment: Suki Barahona WPtel: [address] [place], [place] [id number] ACUTE ILLNESS 03/01/2013 Patient Education: Patient Medication Summary Completed 03/01/2013 Visit Plan: Continue metformin and accuchecks Add fish oil 1gram daily Check HbA1C, CMP in 2mos then fwup 02/22/2013 Appointment: Jessica Gee WPtel: [address] [place], [place] [id number] 02/21 work FOLLOW UP 02/22/2013 Patient Education: Patient Medication Summary Completed 02/22/2013 Visit Plan: Start Metformin Start A ccuchecks daily alternating times Will go for dilated eye exam once BS more stabilized Diabetic foot care discussed Diabetic diet info given 01/11/2013 Appointment: Jessica Gee WPtel: [address] [place], [place] [id number] FOLLOW UP 01/11/2013 Patient Education: Patient Medication Summary Completed 01/11/2013 Visit Plan: ERx for Famvir 500mg ti d x 7 days, Gabapentin 300mg tid x 30 days + 1 RF, refilled Aciphex and Pepcid Written Rx for Lorcet Plus 1 po q4-6 hours prn pain #60 NR (Call if refill needed) Discussed expected course. If still in pain after lesions heal she will call for Lidocaine patches. Note off work until Tuesday 8..13 (she states she can't take more time off). Sedation warning with Lorcet and gabapentin. Do not drive until sure of effects and reaction time normal. 11/03/2012 Appointment: Dimitri Kaitlynn WPtel: [address] [place], [place] [phone] ACUTE ILLNESS 11/03/2012 Patient Education: Patient Medication Summary Completed 11/03/2012 Visit Plan: Reports that Omeprazole and Pepcid are not helping. Will try Aciphex. Stevens if pt. needs referral for EGD. Pt. initially refuses consult due to "hospital bills I already owe on my ." Encouraged consult if symptoms do not improve with Aciphex as continued GERD can lead to complications. Cipro eRX given. Pt. will seek re-eval if symptoms worsen over weekend. Increased fluids and avoidance of caffeine, tomato based food, chocolate and spicy foods. 05/04/2012 Appointment: Xiomara Rodriguez WPtel: [address] [place], [place] [phone] ACUTE ILLNESS 05/04/2012 Patient Education: Patient Medication Summary Completed 05/04/2012 Visit Plan: pt reports that she alw ays gets yeast infections. Discussed that the antifungal can cause problems/increased bleeding with Coumdin. Pt. will start with probiotics and only take the Diflucan if needed. Cefdinir. 10/11/2011 Appointment: iXomara Rodriguez WPtel: [address] [place], [place] [phone] ACUTE ILLNESS 10/11/2011 Patient Education: Patient Medication Summary Completed 10/11/2011 Visit Plan: Will start a different antibiotic. Discussed that allergy to blooming grasses, trees and high pollen count may be to blame. Pt. reluctant to try allergy medication but agrees to. Will switch to Azithromycin and begin medrol dose pack for relief of symptoms. 06/23/2011 Appointment: Xiomara Rodriguez WPtel: [address] [place], [place] [phone] FOLLOW UP 06/23/2011 Patient Education: Patient Medication Summary Completed 06/23/2011 Visit Plan: Will prescribe an antib iotic and diflucan. Pt. reports that she frequently gets yeast infection. Discussed that she will notify if any symptoms persist. Pt. reports that her relatives have recently been hospitalized with pneumonia. 06/14/2011 Appointment: Xiomara Rodriguez WPtel: [address] [place] [address] ACUTE ILLNESS 06/14/2011 Patient Education: Patient Medication Summary Completed 06/14/2011 Visit Plan: sample of veramyst. Cef uroxime axetil. Pt. will focus on hydration and rest. Discussed comfort measures and monitoring for worsening symptoms. 12/02/2010 Appointment: Xiomara Rodriguez WPtel: [address] [place] [address] ACUTE ILLNESS 12/02/2010 Patient Education: Patient Medication Summary Completed 12/02/2010 Visit Plan: Change HCTZ to spironol actone will start zocor in 1 mo BP med in 1mo 11/12/2010 Appointment: Jessica Gee WPtel: [address] [place] [address] FOLLOW UP 11/12/2010 Patient Education: Patient Medication Summary Completed 11/12/2010 Appointment: Jessica Gee WPtel: [address] [place] [address] BP CHECK 10/26/2010 Patient Education: Patient Medication Summary Completed 10/26/2010 Visit Plan: Continue Toprol at bedt rena Add HCTZ in AM BP check in 2wks Fasting lab with next PT/INR 10/13/2010 Appointment: Jessica Gee WPtel: [address] [place] [address] FOLLOW UP 10/13/2010 Patient Education: Patient Medication Summary Completed 10/13/2010 Visit Plan: Cont abx. Fwup with may kirk as scheduled 06/24/2010 Appointment: Jessica Gee WPtel: [address] [place] [address] Hospital Follow Up 06/24/2010 Patient Education: Patient Medication Summary Completed 06/24/2010 Appointment: Jessica Gee WPtel: [address] [place] [address] Hospital Follow Up 06/22/2010 Visit Plan: pt is sent for abdomina l ultrasound. Radiology suggests CT abdomen/pelvis. Order sent. Lab order: CBC, CMP and sed rate with Urinalysis. All tests normal with the exception of urinalysis. Ordered Septra DS BID for 10 days. Urine sent for C&S. Pt. is instructed to notify if symptoms change, worsen or do not begin to subside. 06/08/2010 Appointment: Xiomara Rodriguez WPtel: [address] [place] [address] ACUTE ILLNESS 06/08/2010 Patient Education: Patient Medication Summary Completed 06/08/2010 Appointment: Xiomara Rodriguez WPtel: [address] [place] [address] FOLLOW UP 06/01/2010 Appointment: Jessica Gee WPtel: [address] [place] [address] 05/29/2010 Patient Education: Patient Medication Summary Completed 05/29/2010 Visit Plan: Pt states she has Pepci d at home, will continue Hydroxyzine as needed. Will use Zyrtec and Prednisone also. Steroid shot given. (40 Kenalog/40 Depo Medrol) follow up in 7-10 days. Will schedule Dermatology consult with Esa. 05/20/2010 Appointment: Xiomara Rodriguez WPtel: [address] [place] [address] ACUTE ILLNESS 05/20/2010 Patient Education: Patient Medication Summary Completed 05/20/2010 Appointment: Jessica Gee WPtel: [address] [place] [address] BP CHECK 05/13/2010 Patient Education: Patient Medication Summary Completed 05/13/2010 Visit Plan: Increase Lisinopril hct to 20/12.5mg q AM Use atarax prn and routinely at bedtime and Medrol dose pack BP check in 3wks Pt defers stress test at this time 04/30/2010 Appointment: Jessica Gee WPtel: [address] [place], [place] [id number] ACUTE ILLNESS 04/30/2010 Patient Education: Patient Medication Summary Completed 04/30/2010 Appointment: Jessica Gee WPtel: [address] [place], [place] [phone] BP CHECK 02/27/2010 Patient Education: Patient Medication Summary Completed 02/27/2010 Visit Plan: Cont Toprol Add Altace 10mg QD Cont Wellbutrin Will likely add SSRI after BP stable BP check in 2wks 01/22/2010 Appointment: Jessica Gee WPtel: [address] [place], [place] [id number] ACUTE ILLNESS 01/22/2010 Patient Education: Patient Medication Summary Completed 01/22/2010 Referral: Rupa Raines WPtel: [address] [id number] [place] Referral Completed Referral: Neymar Alberts [facility]el[facility] [address] [id number] [place] Referral Initiated Instructions Comment . pt is sent for abd ominal ultrasound. Radiology suggests CT abdomen/pelvis. Order sent. Lab order: CBC, CMP and sed rate with Urinalysis. All tests normal with the exception of urinalysis. Ordered Septra DS BID for 10 days. Urine sent for C&S. Pt. is instructed to notify if symptoms change, worsen or do not begin to subside. . Rocephin 1 gram to day Maximist treatments every 4 hours. Has a Nebulizer she will get from her [id number] Follow-up Tuesday Refused out-patient CXR because of outstanding medical bills. . Saline nasal flush es prn. Tylenol/Motrin prn headache. Notify if persists/symptoms worsening. . ERx for Amoxicilli n Get PT & INR Today at [facility] Given nasal photoengraving helper and sample of Nasonex (to replace Flonase) Discussed s/s of worsening, go to UC/ER May use Tylenol and heat/cold packs for pain . Supportive care. Rest, Fluids, Tylenol/Motrin prn fever or bodyaches. Notify if worsening symptoms.New toothebrush in 5 days . Pt states she has Pepcid at home, will continue Hydroxyzine as needed. Will use Zyrtec and Prednisone also. Steroid shot given. (40 Kenalog/40 Depo Medrol) follow up in 7-10 days. Will schedule Dermatology consult with Esa. . Continue metformin and accuchecks Add fish oil 1gram daily Check HbA1C, CMP in 2mos then fwup . ERx Amoxicillin an d Flonase Nasal saline, humidified air Facial heat or cold packs for comfort Increase fluids/rest Discussed s/s of worsening, go to UC over weekend if these occur. . ERx Amoxicillin an d Flonase Nasal saline, humidified air Facial heat or cold packs for comfort Increase fluids/rest Discussed s/s of worsening, go to UC over weekend if these occur. . Saline nasal flush es prn. Tylenol/Motrin prn headache. Notify if persists/symptoms worsening. Restart flonase . Strep - Negative Warm saline gargles Amoxicillin x 7 days . No pulseox last we ek to compare to today, but she does sound diminished today Studies as above ordered Continue cefdinir until results received Increase albuterol treatments to q4-6hrs PRN Continue supportive care . No pulseox last we ek to compare to today, but she does sound diminished today Studies as above ordered Continue cefdinir until results received Increase albuterol treatments to q4-6hrs PRN Continue supportive care . Discussed labs Continue Toprol at 200 mg PO daily Increase Aciphex to BID Notify if increase of Aciphex does not give relief. Repeat PT/INR in 2 weeks. . Discussed labs Continue Toprol at 200 mg PO daily Increase Aciphex to BID Notify if increase of Aciphex does not give relief. Repeat PT/INR in 2 weeks. . Increase Lisinopri l hct to 20/12.5mg q AM Use atarax prn and routinely at bedtime and Medrol dose pack BP check in 3wks Pt defers stress test at this time . Increase Coumadin to 6mg M-F and stay on 5mg Sat, Sun Add lipids to labs Check PT/INR in 3wks Continue metfromin at current dose and accuchecks . Start Metformin Start Accuchecks daily alternating times Will go for dilated eye exam once BS more stabilized Diabetic foot care discussed Diabetic diet info given . Reports that Omepr azole and Pepcid are not helping. Will try Aciphex. Stevens if pt. needs referral for EGD. Pt. initially refuses consult due to "hospital bills I already owe on my ." Encouraged consult if symptoms do not improve with Aciphex as continued GERD can lead to complications. Cipro eRX given. Pt. will seek re-eval if symptoms worsen over weekend. Increased fluids and avoidance of caffeine, tomato based food, chocolate and spicy foods. . Albuterol Nebulize d treatment now Demo Medrol 40 mg/Kenalog 40 mg IM now. Rocephin 1 gm today Follow-up in am . To for Rt. elbo w x-ray.Will follow-up with results. Continue to wear soft splint for support. . Will start a diffe rent antibiotic. Discussed that allergy to blooming grasses, trees and high pollen count may be to blame. Pt. reluctant to try allergy medication but agrees to. Will switch to Azithromycin and begin medrol dose pack for relief of symptoms. . sample of veramyst . Cefuroxime axetil. Pt. will focus on hydration and rest. Discussed comfort measures and monitoring for worsening symptoms. . Change HCTZ to spi ronolactone will start zocor in 1 mo BP med in 1mo . Will prescribe an antibiotic and diflucan. Pt. reports that she frequently gets yeast infection. Discussed that she will notify if any symptoms persist. Pt. reports that her relatives have recently been hospitalized with pneumonia. . Cont abx. Fwup with surgery as scheduled . Continue Toprol at bedtime Add HCTZ in AM BP check in 2wks Fasting lab with next PT/INR . Cont Toprol Add Altace 10mg QD Cont Wellbutrin Will likely add SSRI after BP stable BP check in 2wks . pt reports that sh e always gets yeast infections. Discussed that the antifungal can cause problems/increased bleeding with Coumdin. Pt. will start with probiotics and only take the Diflucan if needed. Cefdinir. . Tick panel at [facility] Increase spironolactone to 2 po am (New Rx sent) Take B/P at home/work and also come to office next week for recheck Will await lab results before starting any antibiotic . Tick panel at [facility] Increase spironolactone to 2 po am (New Rx sent) Take B/P at home/work and also come to office next week for recheck Will await lab results before starting any antibiotic . Tick panel at [facility] Increase spironolactone to 2 po am (New Rx sent) Take B/P at home/work and also come to office next week for recheck Will await lab results before starting any antibiotic . Kenalog 40 mg/Depo Medrol 40 mg IM Increase rest and fluids Compete Cefdinir Tessalon perles TID as needed for cough . ERx for Famvir 500 mg tid x 7 days, Gabapentin 300mg tid x 30 days + 1 RF, refilled Aciphex and Pepcid Written Rx for Lorcet Plus 1 po q4-6 hours prn pain #60 NR (Call if refill needed) Discussed expected course. If still in pain after lesions heal she will call for Lidocaine patches. Note off work until Tuesday11.06.12 (she states she can't take more time off). Sedation warning with Lorcet and gabapentin. Do not drive until sure of effects and reaction time normal. . Complete antibioti cs Albuterol nebulized treatments twice daily for the next week. Follow-up if symptoms worsen. . Increase Toprol XL 200 mg to one full tablet daily (is currently taking only 1/2 tablet) To [facility] for EKG today Monitor daily BP Notify of any changes- increased numbness, weakness, headache etc. . Saline nasal flush es prn. Tylenol/Motrin prn headache. Notify if persists/symptoms worsening. . Increase Toprol XL 200 mg to one full tablet daily (is currently taking only 1/2 tablet) To [facility] for EKG today Monitor daily BP Notify of any changes- increased numbness, weakness, headache etc.
--- OUTSIDE RECORDS SUMMARY | 2019-09-10 03:20 | XMS REPORT | Continuity of Care Document ---
Author Organization Unknown Address Unknown Phone Unavailable Allergies Active Description Code Type Severity Reaction Onset Reported/Identified Relationship to Patient Clinical Status Yes NO KNOWN DRUG ALLERGIES NO KNOWN DRUG ALLERG UNKNOWN Yes NO KNOWN DRUG ALLERGIES UNKNOWN NO KNOWN DRUG ALLERG Yes NO KNOWN DRUG ALLERGIES UNKNOWN UNKNOWN Yes aspirin [id number] Drug Allergy Unknown N/A 01/03/2006 Medications Medication Packaging Start Date St op Date Route Dosage Sig NORMAL SALINE 1000CC IV BAG INJ 0.9 % (NS 1000CC IV BAG) ml 07/19/2016 08/03/2016 CONTINUOUSEVERY 0 Hour NORMAL SALINE 1000CC IV BAG INJ 0.9 % (NS 1000CC IV BAG) ml 10/16/2018 10/31/2018 CONTINUOUSEVERY 0 Hour Problems Date Dx Coded Attending Type Code Diagnosis Diagnosed By ROSEY JOY MD Ot M54.2 CERVICALGIA 06/13/2010 Ot 275.2 06/13/2010 Ot 311 06/13/2010 Ot 401.9 06/13/2010 Ot 530.81 06/13/2010 Ot 553.1 06/13/2010 Ot 614.6 06/13/2010 Ot 617.1 06/13/2010 Ot 751.5 06/13/2010 Ot V12.51 06/13/2010 Ot V58.61 06/13/2010 Ot V64.41 06/20/2010 Ot 041.10 06/20/2010 Ot 599.0 06/20/2010 Ot 682.2 06/20/2010 Ot 998.59 03/05/2014 Ot 789.03 03/26/2014 INOCENCIO PRATER Ot 719.42 03/26/2014 INOCENCIO PRATER Ot E000.8 03/26/2014 INOCENCIO PRATER Ot E888.9 08/14/2014 Ot 789.03 08/14/2014 INOCENCIO PRATER Ot 719.42 08/14/2014 VANBECELAERE, INOCENCIO M LEATHER PRODUCTION WORKER Ot E000.8 08/14/2014 VANBECELAERE, INOCENCIO M LEATHER PRODUCTION WORKER Ot E888.9 2014 Ot 789.03 2014 VANBECELAERE, INOCENCIO M LEATHER PRODUCTION WORKER Ot 719.42 2014 VANBECELAERE, INOCENCIO M LEATHER PRODUCTION WORKER Ot E000.8 2014 VANBECELAERE, INOCENCIO M LEATHER PRODUCTION WORKER Ot E888.9 09/24/2014 JESSICA GEE DO Ot V76.12 04/02/2015 VANBECELAERE, INOCENCIO M LEATHER PRODUCTION WORKER Ot R07.9 02/23/2016 VANBECELAERE, INOCENCIO M LEATHER PRODUCTION WORKER Ot 719.42 JOINT PAIN-UP/ARM 02/23/2016 VANBECELAERE, INOCENCIO M LEATHER PRODUCTION WORKER Ot E000.8 OTHER EXTERNAL CAUSE STATUS 02/23/2016 VANBECELAERE, INOCENCIO M LEATHER PRODUCTION WORKER Ot E888.9 FALL NOS 02/23/2016 JESSICA GEE DO Ot V76.12 OTH SCREEN MAMMO-MALIGN NEOPLASM OF NANCY 02/23/2016 VANBECELAERE, INOCENCIO M LEATHER PRODUCTION WORKER Ot R07.9 CHEST PAIN, UNSPECIFIED 02/24/2016 LAURIE PENNY PAPERHANGER PIPE Ot R05 COUGH 02/24/2016 LAURIE PENNY PAPERHANGER PIPE Ot R50.9 FEVER, UNSPECIFIED 03/10/2016 LAURIE PENNY PAPERHANGER PIPE Ot R05 COUGH 03/10/2016 LAURIE PENNY PAPERHANGER PIPE Ot R50.9 FEVER, UNSPECIFIED 04/09/2016 VANBECELAERE, INOCENCIO M LEATHER PRODUCTION WORKER Ot 719.42 JOINT PAIN-UP/ARM 04/09/2016 VANBECELAERE, INOCENCIO M LEATHER PRODUCTION WORKER Ot E000.8 OTHER EXTERNAL CAUSE STATUS 04/09/2016 VANBECELAERE, INOCENCIO M LEATHER PRODUCTION WORKER Ot E888.9 FALL NOS 04/09/2016 JESSICA GEE DO Ot V76.12 OTH SCREEN MAMMO-MALIGN NEOPLASM OF NANCY 04/09/2016 VANBECELAERE, INOCENCIO M LEATHER PRODUCTION WORKER Ot R07.9 CHEST PAIN, UNSPECIFIED 04/09/2016 LAURIE PENNY PAPERHANGER PIPE Ot R05 COUGH 04/09/2016 LAURIE PENNY PAPERHANGER PIPE Ot R50.9 FEVER, UNSPECIFIED 07/08/2016 INOCENCIO PRATER LEATHER PRODUCTION WORKER Ot 719.42 JOINT PAIN-UP/ARM 07/08/2016 INOCENCIO PRATER LEATHER PRODUCTION WORKER Ot E000.8 OTHER EXTERNAL CAUSE STATUS 07/08/2016 INOCENCIO PRATER LEATHER PRODUCTION WORKER Ot E888.9 FALL NOS 07/08/2016 JESSICA GEE DO S Ot V76.12 OTH SCREEN MAMMO-MALIGN NEOPLASM OF NANCY 07/08/2016 INOCENCIO PRATER LEATHER PRODUCTION WORKER Ot R07.9 CHEST PAIN, UNSPECIFIED 07/08/2016 SHARONDA PENNYTEJINDER Stoner PAPERHANGER PIPE Ot R05 COUGH 07/08/2016 LAURIE PENNY PAPERHANGER PIPE Ot R50.9 FEVER, UNSPECIFIED 07/09/2016 JESSICA GEE DO Ot M43.16 SPONDYLOLISTHESIS, LUMBAR REGION 07/19/2016 Oliver Alberts W 455.0 INTERNAL HEMORRHOIDS WITHOUT MENTION OF COMPLICATION 07/19/2016 Oliver Alberts W K64.1 SECOND DEGREE HEMORRHOIDS 07/19/2016 Oliver Alberts V76.51 SCREENING FOR MALIGNANT NEOPLASMS OF COLON 07/19/2016 Oliver Alberts A Z12.11 ENCOUNTER FOR SCREENING FOR MALIGNANT NEOPLASM OF COLON 07/28/2016 JESSICA GEE DO S Ot M43.16 SPONDYLOLISTHESIS, LUMBAR REGION 01/05/2017 JESSICA GEE DO Ot Z12.31 ENCNTR SCREEN MAMMOGRAM FOR MALIGNANT NE 06/02/2017 CONCHA MANZO, NAKUL Simons Ot T81.4XXA INFECTION FOLLOWING A PROCEDURE, INITIAL 06/02/2017 CONCHA MANZO, NAKUL Simons Ot Z79.2 WEBBING SUPERVISOR (CURRENT) USE OF ANTIBIOTICS 06/03/2017 CONCHA MANZO, NAKUL Simons Ot T81.4XXA INFECTION FOLLOWING A PROCEDURE, INITIAL 06/03/2017 CONCHA MANZO, NAKUL Simons Ot Z79.2 HALFWAY (CURRENT) USE OF ANTIBIOTICS 06/15/2017 CONCHA MANZO, NAKUL Simons Ot T81.4XXA INFECTION FOLLOWING A PROCEDURE, INITIAL 06/15/2017 CONCHA MANZO, NAKUL Simons Ot Z79.2 WEBBING SUPERVISOR (CURRENT) USE OF ANTIBIOTICS 10/13/2017 ENRIQUE ROSADOON Yovany PAPERHANGER PIPE Ot R05 COUGH 10/13/2017 ALONZOOUMAR VELEZ R PAPERHANGER PIPE Ot R07.81 PLEURODYNIA 10/14/2017 MARGRET BROCK APRN Ot F41 .9 ANXIETY DISORDER, UNSPECIFIED 10/14/2017 MARGRET BROCK APRN Ot I10 ESSENTIAL (PRIMARY) HYPERTENSION 10/14/2017 MARGRET BROCK APRN Ot R06.00 DYSPNEA, UNSPECIFIED 10/14/2017 MARGRET BROCK APRN Ot R06.02 SHORTNESS OF BREATH 10/14/2017 MARGRET BROCK APRN Ot Z79.01 WEBBING SUPERVISOR (CURRENT) USE OF ANTICOAGULANT 10/14/2017 MARGRET BROCK APRN Ot Z86.718 PERSONAL HISTORY OF OTHER VENOUS THROMBO 10/14/2017 MARGRET BROCK APRN Ot Z88 .6 ALLERGY STATUS TO ANALGESIC AGENT STATUS 10/14/2017 MARGRET BROCK APRN Ot Z90.710 ACQUIRED ABSENCE OF BOTH CERVIX AND UTER 10/14/2017 MARGRET BROCK APRN Ot Z90.89 ACQUIRED ABSENCE OF OTHER ORGANS 10/17/2017 MARGRET BROCK APRN Ot F41 .9 ANXIETY DISORDER, UNSPECIFIED 10/17/2017 MARGRET BROCK APRN Ot I10 ESSENTIAL (PRIMARY) HYPERTENSION 10/17/2017 MARGRET BROCK APRN Ot R06.00 DYSPNEA, UNSPECIFIED 10/17/2017 MARGRET BROCK APRN Ot R06.02 SHORTNESS OF BREATH 10/17/2017 MARGRET BROCK APRN Ot Z79.01 HALFWAY (CURRENT) USE OF ANTICOAGULANT 10/17/2017 MARGRET BROCK APRN Ot Z86.718 PERSONAL HISTORY OF OTHER VENOUS THROMBO 10/17/2017 MARGRET BROCK APRN Ot Z88 .6 ALLERGY STATUS TO ANALGESIC AGENT STATUS 10/17/2017 MARGRET BROCK APRN Ot Z90.710 ACQUIRED ABSENCE OF BOTH CERVIX AND UTER 10/17/2017 MARGRET BROCK PAPERHANGER PIPE Ot Z90.89 ACQUIRED ABSENCE OF OTHER ORGANS 02/16/2018 INOCENCIO PRATER LEATHER PRODUCTION WORKER Ot 719.42 JOINT PAIN-UP/ARM 02/16/2018 INOCENCIO PRATER LEATHER PRODUCTION WORKER Ot E000.8 OTHER EXTERNAL CAUSE STATUS 02/16/2018 INOCENCIO PRATERP Ot E888.9 FALL NOS 02/16/2018 JESSICA GEE DO S Ot V76.12 OTH SCREEN MAMMO-MALIGN NEOPLASM OF NANCY 02/16/2018 INOCENCIO PRATER LEATHER PRODUCTION WORKER Ot R07.9 CHEST PAIN, UNSPECIFIED 02/16/2018 HEMALATHA LAURIE Herbie PAPERHANGER PIPE Ot R05 COUGH 02/16/2018 LAURIE PENNY PAPERHANGER PIPE Ot R50.9 FEVER, UNSPECIFIED 02/16/2018 JESSICA GEE DO S Ot M43.16 SPONDYLOLISTHESIS, LUMBAR REGION 02/16/2018 JESSICA GEE DO S Ot Z12.31 ENCNTR SCREEN MAMMOGRAM FOR MALIGNANT NE 02/16/2018 CONCHA MANZO, NAKUL Simons Ot T81.4XXA INFECTION FOLLOWING A PROCEDURE, INITIAL 02/16/2018 NAKUL KERN MD Ot Z79.2 HALFWAY (CURRENT) USE OF ANTIBIOTICS 02/16/2018 NAKUL KERN MD Ot T81.4XXA INFECTION FOLLOWING A PROCEDURE, INITIAL 02/16/2018 NAKUL KERN MD Ot Z79.2 HALFWAY (CURRENT) USE OF ANTIBIOTICS 02/16/2018 OUMAR ROSADO PAPERHANGER PIPE Ot R05 COUGH 02/16/2018 OUMAR ROSADO PAPERHANGER PIPE Ot R07.81 PLEURODYNIA 02/16/2018 JESSICA GEE DO S Ot Z12.31 ENCNTR SCREEN MAMMOGRAM FOR MALIGNANT NE 02/16/2018 MELANIE SCHULZ MD Ot Z01.818 ENCOUNTER FOR OTHER PREPROCEDURAL EXAMIN 02/17/2018 MELANIE SCHULZ MD, Ot Z01.818 ENCOUNTER FOR OTHER PREPROCEDURAL EXAMIN 02/22/2018 MELANIE SCHULZ MD Ot E11.9 TYPE 2 DIABETES MELLITUS WITHOUT COMPLIC 02/22/2018 MELANIE SCHULZ MD, Ot G56.02 CARPAL TUNNEL SYNDROME, LEFT UPPER LIMB 02/22/2018 MELANIE SCHULZ MD, Ot G56.22 LESION OF ULNAR NERVE, LEFT UPPER LIMB 02/22/2018 MELANIE SCHULZ MD, Ot I1 0 ESSENTIAL (PRIMARY) HYPERTENSION 02/22/2018 MELANIE SCHULZ MD, Ot Z79.01 WEBBING SUPERVISOR (CURRENT) USE OF ANTICOAGULANT 02/22/2018 MELANIE SCHULZ MD Ot Z79.84 WEBBING SUPERVISOR (CURRENT) USE OF ORAL HYPOGLYC 02/22/2018 MELANIE SCHULZ MD, Ot Z79.899 OTHER WEBBING SUPERVISOR (CURRENT) DRUG THERAPY 02/22/2018 MELANIE SCHULZ MD, Ot Z86.711 PERSONAL HISTORY OF PULMONARY EMBOLISM 02/24/2018 MELANIE SCHULZ MD Ot E11.9 TYPE 2 DIABETES MELLITUS WITHOUT COMPLIC 02/24/2018 MELANIE SCHULZ MD, Ot G56.02 CARPAL TUNNEL SYNDROME, LEFT UPPER LIMB 02/24/2018 MELANIE SCHULZ MD, Ot G56.22 LESION OF ULNAR NERVE, LEFT UPPER LIMB 02/24/2018 MELANIE SCHULZ MD, Ot I1 0 ESSENTIAL (PRIMARY) HYPERTENSION 02/24/2018 MELANIE SCHULZ MD, Ot Z79.01 HALFWAY (CURRENT) USE OF ANTICOAGULANT 02/24/2018 MELANIE SCHULZ MD, Ot Z79.84 HALFWAY (CURRENT) USE OF ORAL HYPOGLYC 02/24/2018 MELANIE SCHULZ MD, Ot Z79.899 OTHER HALFWAY (CURRENT) DRUG THERAPY 02/24/2018 MELANIE SCHULZ MD, Ot Z86.711 PERSONAL HISTORY OF PULMONARY EMBOLISM 02/28/2018 MELANIE SCHULZ MD, Ot E11.9 TYPE 2 DIABETES MELLITUS WITHOUT COMPLIC 02/28/2018 MELANIE SCHULZ MD, Ot G56.02 CARPAL TUNNEL SYNDROME, LEFT UPPER LIMB 02/28/2018 MELANIE SCHULZ MD, Ot G56.22 LESION OF ULNAR NERVE, LEFT UPPER LIMB 02/28/2018 MELANIE SCHULZ MD Ot I1 0 ESSENTIAL (PRIMARY) HYPERTENSION 02/28/2018 MELANIE SCHULZ MD, Ot Z79.01 HALFWAY (CURRENT) USE OF ANTICOAGULANT 02/28/2018 MELANIE SCHULZ MD, Ot Z79.84 HALFWAY (CURRENT) USE OF ORAL HYPOGLYC 02/28/2018 MELANIE SCHULZ MD, Ot Z79.899 OTHER WEBBING SUPERVISOR (CURRENT) DRUG THERAPY 02/28/2018 MELANIE SCHULZ MD, Ot Z86.711 PERSONAL HISTORY OF PULMONARY EMBOLISM 03/22/2018 ROSEY JOY MD Ot M54.2 CERVICALGIA 04/06/2018 ROSEY JOY MD, Ot M54.2 CERVICALGIA 05/18/2018 RUFINO MANZO, ROSEY Ot M54.2 CERVICALGIA 08/15/2018 INOCENCIO PRATER LEATHER PRODUCTION WORKER Ot 719.42 JOINT PAIN-UP/ARM 08/15/2018 INOCENCIO PRATER LEATHER PRODUCTION WORKER Ot E000.8 OTHER EXTERNAL CAUSE STATUS 08/15/2018 INOCENCIO PRATER LEATHER PRODUCTION WORKER Ot E888.9 FALL NOS 08/15/2018 JESSICA GEE DO S Ot V76.12 OTH SCREEN MAMMO-MALIGN NEOPLASM OF NANCY 08/15/2018 INOCENCIO PRATER LEATHER PRODUCTION WORKER Ot R07.9 CHEST PAIN, UNSPECIFIED 08/15/2018 LAURIE PENNY PAPERHANGER PIPE Ot R05 COUGH 08/15/2018 LAURIE PENNY PAPERHANGER PIPE Ot R50.9 FEVER, UNSPECIFIED 08/15/2018 JESSICA GEE DO S Ot M43.16 SPONDYLOLISTHESIS, LUMBAR REGION 08/15/2018 JESSICA GEE DO S Ot Z12.31 ENCNTR SCREEN MAMMOGRAM FOR MALIGNANT NE 08/15/2018 CONCHA MANZO, NAKUL Simons Ot T81.4XXA INFECTION FOLLOWING A PROCEDURE, INITIAL 08/15/2018 CONCHA MANZO, NAKUL Simons Ot Z79.2 WEBBING SUPERVISOR (CURRENT) USE OF ANTIBIOTICS 08/15/2018 CONCHA MANZO, NAKUL Simons Ot T81.4XXA INFECTION FOLLOWING A PROCEDURE, INITIAL 08/15/2018 CONCHA MANZO, NAKUL Simons Ot Z79.2 WEBBING SUPERVISOR (CURRENT) USE OF ANTIBIOTICS 08/15/2018 OUMAR ROSADO PAPERHANGER PIPE Ot R05 COUGH 08/15/2018 OUMAR ROSADO PAPERHANGER PIPE Ot R07.81 PLEURODYNIA 08/15/2018 JESSICA GEE DO S Ot Z12.31 ENCNTR SCREEN MAMMOGRAM FOR MALIGNANT NE 10/16/2018 Oliver Alberts 530.81 ESOPHAGEAL REFLUX 10/16/2018 Oliver Alberts 535.10 ATROPHIC GASTRITIS, WITHOUT MENTION OF HEMORRHAGE 10/16/2018 Oliver Alberts 552.3 DIAPHRAGMATIC HERNIA WITH OBSTRUCTION 10/16/2018 Oliver Alberts K21.0 GASTRO- ESOPHAGEAL REFLUX DISEASE WITH ESOPHAGITIS 10/16/2018 Oliver Alberts K29.50 UNSPECIFIED CHRONIC GASTRITIS WITHOUT BLEEDING 10/16/2018 Oliver Alberts K44.9 DIAPHRAGMATIC HERNIA WITHOUT OBSTRUCTION OR GANGRENE 10/16/2018 Oliver Alberts K64.1 SECOND DEGREE HEMORRHOIDS 10/16/2018 Oliver Alberts Z12.11 ENCOUNTER FOR SCREENING FOR MALIGNANT NEOPLASM OF COLON 05/18/2019 W E11.9 Type 2 diabetes mellitus without complications Jessica Gee S. 05/18/2019 W E11.9 Type 2 diabetes mellitus without complications Jessica Gee S. 05/18/2019 W I10 Essent ial hypertension Jessica Gee S. Procedures There is no data. Results Test Result Range Complete blood count (CBC) with automate d white blood cell (WBC) differential - 02/23/16 10:05 Blood leukocytes automated count (number/volume) 14.3 10*3/uL 4.3-11.0 Blood erythrocytes automated count (number/volume) 4.91 10*6/uL 4.35-5.85 Venous blood hemoglobin measurement (mass/volume) 14.3 g/dL 11.5-16.0 Blood hematocrit (volume fraction) 44 % 35-52 Automated erythrocyte mean corpuscular volume 89 [ foz_us] 80-99 Automated erythrocyte mean corpuscular h emoglobin (mass per erythrocyte) 29 pg 25-34 Automated erythrocyte mean corpuscular h emoglobin concentration measurement (mass/volume) 33 g/dL 32-36 Automated erythrocyte distribution width ratio 14. 6 % 10.0- 14.5 Automated blood platelet count (count/volume) 336 10*3/uL [...] 10*3 1.0-4.0 Blood monocytes automated count (number/volume) 1. 3 10*3 0.0-1.0 Automated eosinophil count 0.2 10*3/uL 0 .0-0.3 Automated blood basophil count (count/volume) 0.0 10*3/uL 0.0-0.1 Blood manual differential performed dete ction - 02/23/16 10:05 Blood monocytes/100 leukocytes 9 % NRG Manual blood segmented neutrophils/100 leukocytes 60 % NRG Blood band neutrophils/100 leukocytes 0 % NRG Manual blood lymphocytes/100 leukocytes 31 % NRG Manual eosinophils/100 leukocytes in nose 0 % NRG Manual blood basophils/100 leukocytes 0 % NRG Blood anisocytosis detection by light microscopy S LIGHT NRG Sputum Gram stain - 02/23/16 10:18 GRAM STAIN SPUTUM AND MIXED BACTERIAL SHANNAN NRG Bacterial sputum culture - 02/23/16 10:1 8 Bacterial sputum culture NORMAL NRG Protime - 07/16/16 11:13 INR 1.8 1.0-4.0 Protime 21.5 Sec 9.9-12.8 Protime - 07/19/16 09:48 INR 1.0 1.0-4.0 Protime 11.8 Sec 9.9-12.8 Complete blood count (CBC) with automate d white blood cell (WBC) differential - 05/17/17 11:45 Blood leukocytes automated count (number/volume) 8.3 10*3/uL 4.3-11.0 Blood erythrocytes automated count (number/volume) 4.40 10*6/uL 4.35-5.85 Venous blood hemoglobin measurement (mass/volume) 12.7 g/dL 11.5-16.0 Blood hematocrit (volume fraction) 38 % 35-52 Automated erythrocyte mean corpuscular volume 87 [ foz_us] 80-99 Automated erythrocyte mean corpuscular h emoglobin (mass per erythrocyte) 29 pg 25-34 Automated erythrocyte mean corpuscular h emoglobin concentration measurement (mass/volume) 33 g/dL 32-36 Automated erythrocyte distribution width ratio 14. 0 % 10.0- 14.5 Automated blood platelet count (count/volume) 252 10*3/uL [...] 10*3 1.0-4.0 Blood monocytes automated count (number/volume) 1. 1 10*3 0.0-1.0 Automated eosinophil count 0.3 10*3/uL 0 .0-0.3 Automated blood basophil count (count/volume) 0.1 10*3/uL 0.0-0.1 Whole blood basic metabolic panel - 04/22 10/05 11:45 Serum or plasma sodium measurement (moles/volume) 138 mmol/L 135-145 Serum or plasma potassium measurement (moles/volume) 4.0 mmol/L 3.6-5.0 Serum or plasma chloride measurement (moles/volume) 106 mmol/L 98-107 Carbon dioxide 25 mmol/L 21-32 Serum or plasma anion gap determination (moles/volume) 7 mmol/L 5-14 Serum or plasma urea nitrogen measurement (mass/volume ) 10 mg/dL 7-18 Serum or plasma creatinine measurement (mass/volume) 0.68 mg/dL 0.60-1.30 Serum or plasma urea nitrogen/creatinine mass ratio 15 NRG Serum or plasma creatinine measurement w ith calculation of estimated glomerular filtration rate > NRG Serum or plasma glucose measurement (mass/volume) 106 mg/dL 70-105 Serum or plasma calcium measurement (mass/volume) 9.5 mg/dL 8.5-10.1 Serum or plasma C reactive protein measu rement (mass/volume) - 05/17/17 11:45 Serum or plasma C reactive protein measurement (mass/v olume) 1.61 mg/dL 0.00-0.50 Erythrocyte sedimentation rate by erica gren method - 05/17/17 11:45 Erythrocyte sedimentation rate by westergren method 28 mm 0- 30 Complete blood count (CBC) with automate d white blood cell (WBC) differential - 05/23/17 14:25 Blood leukocytes automated count (number/volume) 4.4 10*3/uL 4.3-11.0 Blood erythrocytes automated count (number/volume) 4.64 10*6/uL 4.35-5.85 Venous blood hemoglobin measurement (mass/volume) 13.4 g/dL 11.5-16.0 Blood hematocrit (volume fraction) 40 % 35-52 Automated erythrocyte mean corpuscular volume 86 [ foz_us] 80-99 Automated erythrocyte mean corpuscular h emoglobin (mass per erythrocyte) 29 pg 25-34 Automated erythrocyte mean corpuscular h emoglobin concentration measurement (mass/volume) 34 g/dL 32-36 Automated erythrocyte distribution width ratio 14. 2 % 10.0- 14.5 Automated blood platelet count (count/volume) 206 10*3/uL [...] 10*3 1.0-4.0 Blood monocytes automated count (number/volume) 0. 9 10*3 0.0-1.0 Automated eosinophil count 0.0 10*3/uL 0 .0-0.3 Automated blood basophil count (count/volume) 0.0 10*3/uL 0.0-0.1 Whole blood basic metabolic panel - 03/0 08/05 14:25 Serum or plasma sodium measurement (moles/volume) 135 mmol/L 135-145 Serum or plasma potassium measurement (moles/volume) 3.9 mmol/L 3.6-5.0 Serum or plasma chloride measurement (moles/volume) 100 mmol/L 98-107 Carbon dioxide 27 mmol/L 21-32 Serum or plasma anion gap determination (moles/volume) 8 mmol/L 5-14 Serum or plasma urea nitrogen measurement (mass/volume ) 11 mg/dL 7-18 Serum or plasma creatinine measurement (mass/volume) 0.75 mg/dL 0.60-1.30 Serum or plasma urea nitrogen/creatinine mass ratio 15 NRG Serum or plasma creatinine measurement w ith calculation of estimated glomerular filtration rate > NRG Serum or plasma glucose measurement (mass/volume) 97 mg/dL 70-105 Serum or plasma calcium measurement (mass/volume) 9.3 mg/dL 8.5-10.1 Serum or plasma C reactive protein measu rement (mass/volume) - 05/23/17 14:25 Serum or plasma C reactive protein measurement (mass/v olume) 2.00 mg/dL 0.00-0.50 Blood manual differential performed dete ction - 05/23/17 14:25 Blood monocytes/100 leukocytes 22 % NRG Manual blood segmented neutrophils/100 leukocytes 58 % NRG Manual blood lymphocytes/100 leukocytes 20 % NRG Blood erythrocyte morphology finding identification NORMAL NRG Erythrocyte sedimentation rate by erica gren method - 05/23/17 14:25 Erythrocyte sedimentation rate by westergren method 28 mm 0- 30 Complete blood count (CBC) with automate d white blood cell (WBC) differential - 10/14/17 14:50 Blood leukocytes automated count (number/volume) 8.6 10*3/uL 4.3-11.0 Blood erythrocytes automated count (number/volume) 4.65 10*6/uL 4.35-5.85 Venous blood hemoglobin measurement (mass/volume) 13.1 g/dL 11.5-16.0 Blood hematocrit (volume fraction) 40 % 35-52 Automated erythrocyte mean corpuscular volume 85 [ foz_us] 80-99 Automated erythrocyte mean corpuscular h emoglobin (mass per erythrocyte) 28 pg 25-34 Automated erythrocyte mean corpuscular h emoglobin concentration measurement (mass/volume) 33 g/dL 32-36 Automated erythrocyte distribution width ratio 14. 9 % 10.0- 14.5 Automated blood platelet count (count/volume) 336 10*3/uL [...] 10*3 1.0-4.0 Blood monocytes automated count (number/volume) 0. 8 10*3 0.0-1.0 Automated eosinophil count 0.2 10*3/uL 0 .0-0.3 Automated blood basophil count (count/volume) 0.0 10*3/uL 0.0-0.1 PT panel in platelet poor plasma by coag ulation assay - 10/14/17 14:50 Prothrombin time (PT) in platelet poor plasma by coagu lation assay 25.6 s 12.2-14.7 INR in platelet poor plasma or blood by coagulation as say 2.3 0.8-1.4 Comprehensive metabolic panel - 10/14/17 14:50 Serum or plasma sodium measurement (moles/volume) 143 mmol/L 135-145 Serum or plasma potassium measurement (moles/volume) 4.2 mmol/L 3.6-5.0 Serum or plasma chloride measurement (moles/volume) 108 mmol/L 98-107 Carbon dioxide 26 mmol/L 21-32 Serum or plasma anion gap determination (moles/volume) 9 mmol/L 5-14 Serum or plasma urea nitrogen measurement (mass/volume ) 10 mg/dL 7-18 Serum or plasma creatinine measurement (mass/volume) 0.74 mg/dL 0.60-1.30 Serum or plasma urea nitrogen/creatinine mass ratio 14 NRG Serum or plasma creatinine measurement w ith calculation of estimated glomerular filtration rate > NRG Serum or plasma glucose measurement (mass/volume) 90 mg/dL 70-105 Serum or plasma calcium measurement (mass/volume) 9.7 mg/dL 8.5-10.1 Serum or plasma total bilirubin measurement (mass/volu me) 0.3 mg/dL 0.1-1.0 Serum or plasma alkaline phosphatase caden surement (enzymatic activity/volume) 108 U/L 40-136 Serum or plasma aspartate aminotransfera se measurement (enzymatic activity/volume) 23 U/L 5-34 Serum or plasma alanine aminotransferase measurement (enzymatic activity/volume) 27 U/L 0-55 Serum or plasma protein measurement (mass/volume) 7.3 g/dL 6.4-8.2 Serum or plasma albumin measurement (mass/volume) 4.3 g/dL 3.2-4.5 Serum or plasma lithium measurement (mol es/volume) - 10/14/17 14:50 BNP level 18.8 pg/mL <100.0 THYROID STIMULATING HORMONE - 10/14/17 1 4:50 THYROID STIMULATING HORMONE 0.75 u[iU]/mL 0.35-4.94 Complete urinalysis with reflex to cultu re - 10/14/17 14:55 Urine color determination YELLOW NRG Urine clarity determination VERY CLOUDY NRG Urine pH measurement by test strip 6 5-9 Specific gravity of urine by test strip 1.015 1.016-1.022 Urine protein assay by test strip, semi-quantitative NEGATIVE NEGATIVE Urine glucose detection by automated test strip NE GATIVE NEGATIVE Erythrocytes detection in urine sediment by light micr oscopy NEGATIVE NEGATIVE Urine ketones detection by automated test strip NE GATIVE NEGATIVE Urine nitrite detection by test strip NEGATIVE NEGATIVE Urine total bilirubin detection by test strip NEGA TIVE NEGATIVE Urine urobilinogen measurement by automated test strip (mass/volume) NORMAL NORMAL Urine leukocyte esterase detection by dipstick NEG ATIVE NEGATIVE Automated urine sediment erythrocyte cou nt by microscopy (number/high power field) NONE NRG Automated urine sediment leukocyte count by microscopy (number/high power field) NONE NRG Bacteria detection in urine sediment by light microsco py FEW NRG Squamous epithelial cells detection in u rine sediment by light microscopy 25-50 NRG Crystals detection in urine sediment by light microsco py NONE NRG Casts detection in urine sediment by light microscopy NONE NRG Mucus detection in urine sediment by light microscopy NEGATIVE NRG Complete urinalysis with reflex to culture NO NRG Methicillin resistant Staphylococcus aur eus (MRSA) screening culture - 02/16/18 12:20 Methicillin resistant Staphylococcus aureus (MRSA) scr eening culture NEG NRG Capillary blood glucose measurement by g lucometer (mass/volume) - 02/22/18 07:34 Capillary blood glucose measurement by glucometer (mas s/volume) 98 mg/dL 70-110 PT panel in platelet poor plasma by coag ulation assay - 02/22/18 07:51 Prothrombin time (PT) in platelet poor plasma by coagu lation assay 13.8 s 12.2-14.7 INR in platelet poor plasma or blood by coagulation as say 1.1 0.8-1.4 CBC with Auto Diff - 10/10/18 13:50 EKG - 10/10/18 13:50 Comprehensive Metabolic Panel - 10/10/18 13:52 Albumin 4.3 g/dL 3.6-5.1 ALP 100 U/L 35-130 ALT 25 U/L 6-45 Anion Gap 14 6-14 AST 23 U/L 2-40 BUN 18 mg/dL 5-25 Calcium 9.5 mg/dL 8.3-10.4 Chloride 106 mmol/L 95-114 CO2 25 mEq/L 22-33 Creat 0.90 mg/dL 0.50-1.50 eGFR 65 mL/min/1.73m2 >59 Globulin 3.1 g/dL 2.3-3.5 Glucose 100 mg/dL 70-110 Osmo 293 280-295 Potassium 4.2 mmol/L 3.5-5.3 Sodium 141 mmol/L 134-148 TBil 0.3 mg/dL 0.2-1.2 TP 7.4 g/dL 6.0-8.3 Protime - 10/16/18 10:29 INR 1.2 1.0-4.0 Protime 13.5 Sec 9.9-12.8 Surgical Pathology - 10/16/18 11:51 Surg Path Sent to [facility] Pathology COVID-19 ([facility]) - 09/03/19 16:16 Encounters ACCT No. Visit Date/Time Discharge Status Pt. Type Provider Facility Loc./Unit Complaint [id number] 10/16/2018 00:00:00 10/16/2018 12:39: 00 DIS Outpatient Oliver Alberts [id number] 10/10/2018 13:22:00 10/10/2018 23:59: 00 DIS Outpatient Oliver Alberts [id number] 07/19/2016 00:00:00 07/19/2016 12:28: 00 DIS Outpatient Oliver Alberts [id number] 07/16/2016 10:49:00 07/16/2016 23:59: 00 DIS Outpatient Oliver Alberts [id number] 07/16/2016 13:19:38 Document Registration [id number] 09/03/2019 13:20:00 09/03/2019 23:59: 59 CLS Outpatient OTILIO GOMEZ DO [facility] [id number] 09/03/2019 13:20:00 Document Registration 09/05/18 04/03/2019 11:58:02 04/03/2019 23:5 9:59 CLS Outpatient Jessica Gee [id number] 05/09/2019 15:53:00 Document Registration [id number] 08/31/2018 13:41:00 23:59:59 CLS Preadmit ZEUS MANZO, MELANIE [facility] REHAB CARPAL TUNNEL RIGHT [id number] 03/02/2018 12:29:00 019 09:51:00 DIS Outpatient RUFINO MANZO, ROSEY langley [facility] REHAB NECK PAIN; CHRONIC [id number] 02/22/2018 07:25:00 018 11:05:00 DIS Outpatient MELANIE SCHULZ MD [facility] LEFT CARPAL TUNNEL SYN DROME,LEFT CUBITAL TUNNEL [id number] 02/16/2018 12:00:00 12:30:00 DIS Outpatient MELANIE SCHULZ MD [facility] PREOP LEFT CARPAL TUNNEL SYN DROME,LEFT CUBITAL TUNNEL [id number] 12/26/2017 09:50:00 018 23:59:59 CLS Outpatient JESSICA GEE DO [facility] RAD SCREENING [id number] 10/17/2017 08:49:00 018 23:59:59 CLS Preadmit JESSICA GEE DO S [facility] RAD HISTORY OF PE,D YSPNEA [id number] 10/14/2017 12:18:00 018 23:59:59 CLS Preadmit JESSICA GEE DO [facility] RAD SHORTNESS OF BR EATHE [id number] 10/14/2017 13:55:00 018 16:50:00 DIS Emergency MARGRET BROCK APRN [facility] ER SOB, BODY ACHES [id number] 10/12/2017 14:59:00 018 23:59:59 CLS Outpatient OUMAR ROSADO APRN [facility] RAD RIB PAIN [id number] 05/24/2017 14:43:00 018 23:59:59 CLS Preadmit NAKUL KERN MD, [facility] [id number] 05/23/2017 07:00:00 23:59:59 CLS Outpatient NAKUL KERN MD [facility] [address] T81.4XXA [id number] 05/17/2017 07:00:00 23:59:59 CLS Outpatient NAKUL KERN MD [facility] [id number],Z79.2 [id number] 12/24/2016 15:38:00 017 23:59:59 CLS Outpatient LUIS GEE DOLINE S [facility] RAD SCREENING [id number] 10/08/2016 07:56:00 017 23:59:59 CLS Preadmit LUIS GEE DOLINE S [facility] RAD M54.5 [id number] 07/08/2016 15:45:00 017 23:59:59 CLS Outpatient ABDIRASHID GEE DOQUELINE S [facility] RAD LOW BACK ARCELIA [id number] 02/23/2016 09:37:00 016 23:59:59 CLS Outpatient LAURIE PENNY APRN [facility] RAD COUGH,FEVER [id number] 01/28/2015 16:51:00 015 23:59:59 CLS Outpatient INOCENCIO PRATER P [facility] CARD CHEST PAIN [id number] 2014 14:32:00 015 23:59:59 CLS Outpatient ABDIRASHID GEE DOQUELINE S [facility] RAD SCREENING [id number] 03/05/2014 15:15:00 014 23:59:59 CLS Outpatient INOCENCIO PRATER ARN P [facility] RAD RT ELBOW PAIN [id number] 03/05/2014 15:17:00 Document Registration [id number] 06/18/2010 03:30:00 Document Registration [id number] 06/08/2010 22:19:00 Document Registration [id number] 06/08/2010 11:43:00 Document Registration
[2019-09-10 03:48] LABS: BASOPHILS % (AUTO) 0 % (0-10); EOSINOPHILS % (AUTO) 0 % (0-10); HEMATOCRIT 41 % (35-52); HEMOGLOBIN 13.7 G/DL (11.5-16.0); LYMPHOCYTES # (AUTO) 1.9 X 10^3 (1.0-4.0); LYMPHOCYTES % (AUTO) 30 % (12-44); MEAN CORPUSCULAR HEMOGLOBIN 28 PG (25-34); MEAN CORPUSCULAR HGB CONC 33 G/DL (32-36); MEAN CORPUSCULAR VOLUME 83 FL (80-99); MEAN PLATELET VOLUME 11.2 FL (7.4-10.4); MONOCYTES % (AUTO) 16 % (0-12); NEUTROPHILS # (AUTO) 3.5 X 10^3 (1.8-7.8); NEUTROPHILS % (AUTO) 55 % (42-75); PLATELET COUNT 202 10^3/uL (130-400); RED CELL DISTRIBUTION WIDTH 15.4 % (10.0-14.5); WHITE BLOOD COUNT 6.3 10^3/uL (4.3-11.0)
[2019-09-10 04:10] LABS: CHLORIDE 104 MMOL/L (98-107); POTASSIUM 3.3 MMOL/L (3.6-5.0); SODIUM 137 MMOL/L (135-145)
[2019-09-10 04:11] LABS: CALCIUM 8.8 MG/DL (8.5-10.1)
[2019-09-10 04:13] LABS: TOTAL PROTEIN 7.5 GM/DL (6.4-8.2)
[2019-09-10 04:14] LABS: BILIRUBIN,URINE NEGATIVE (NEGATIVE); CLARITY,URINE SL CLOUDY; COLOR,URINE ORANGE; GLUCOSE, URINE (UA) NEGATIVE (NEGATIVE); KETONES,URINE TRACE (NEGATIVE); LEUKOCYTE ESTERASE ,URINE NEGATIVE (NEGATIVE); NITRITE,URINE NEGATIVE (NEGATIVE); PROTEIN,URINE 1+ (NEGATIVE)
[2019-09-10 04:14] LABS: BILIRUBIN,TOTAL 0.6 MG/DL (0.1-1.0); CARBON DIOXIDE 20 MMOL/L (21-32)
[2019-09-10 04:15] LABS: FIBRIN DEGRADATION PRODUCTS 0.34 UG/ML (0.00-0.49); INR 1.2 (0.8-1.4); PROTHROMBIN TIME PATIENT 16.1 SEC (12.2-14.7)
[2019-09-10 04:16] LABS: CREATININE SERUM 0.75 MG/DL (0.60-1.30); GFR ESTIMATED > 60
[2019-09-10 04:20] LABS: ERYTHROCYTE SEDIMENTATION RATE 25 MM/HR (0-30)
[2019-09-10 04:22] LABS: BACTERIA,URINE FEW /HPF; RBC,URINE RARE /HPF; WBC,URINE 0-2 /HPF
[2019-09-10] MEDS ORDERED: IOHEXOL 350 MG/ML 100 ML (OMNIPAQUE 350) VIAL IV ONE (04:30)
[2019-09-10] MEDS ORDERED: NS 100 ML (IVPB) BAG IV ONE (04:30)
[2019-09-10] MEDS ORDERED: HOLD METFORMIN - RECEIVED CONTRAST 20 ML VIAL IV SCH (04:30)
[2019-09-10 04:58] LABS: ALBUMIN 4.1 GM/DL (3.2-4.5)
[2019-09-10 05:00] LABS: GLUCOSE 126 MG/DL (70-105)
[2019-09-10 05:04] LABS: ALKALINE PHOSPHATASE 80 U/L (40-136)
[2019-09-10 05:05] LABS: BUN/CREATININE RATIO 15
[2019-09-10 05:07] LABS: ALANINE AMINOTRANSFERASE 33 U/L (0-55); MAGNESIUM 1.8 MG/DL (1.6-2.4)
--- NOTE | 2019-09-10 05:23 | ED General ---
General Chief Complaint: Respiratory Problems Stated Complaint: SOB, COVID POS Nursing Triage Note: TO ED VIA POV AND DIRECTED TO COVID-19 PRECAUTION UNIT D/T C/O SOA OFF AND ON SINCE YESTERDAY AND GETTING WORSE NOW, STOMACH PAIN X1 WEEK, RIGHT SIDE BACK PAIN. SWABBED THIS PAST TUESDAY FOR COVID AND WAS FOUND POSITIVE. STATES TOOK O2 SAT AT HOME AND IT WAS 86-89%. Nursing Sepsis Screen: Possible Severe Sepsis Risk Source of Information: Patient (EXTREMELY DIFFICULT AND VAGUE HISTORIAN) History of Present Illness Date Seen by Provider: Sep 10, 2019 Time Seen by Provider: 02:55 Initial Comments PT ARRIVES VIA POV FROM HOME PT WITH MULTIPLE COMPLAINTS--ALL ONGOING FOR A WEEK AND IS NOT ANY DIFFERENT TODAY PT STATES BOTH HER AND DAUGHTER TESTED POSITIVE FOR COVID-19, BUT STATES "THEY AREN'T SICK" STATES SHE WAS THEN TESTED ON Tuesday09/03/19 AT [facility] AND WAS ALSO POSITIVE FOR COVID-19. STATES SHE HAS BEEN RUNNING FEVER OF 99 ALL WEEK AND WAS UP TO 100 YESTERDAY HAS BEEN HAVING SHORTNESS OF BREATH "OFF AND ON" BUT DENIES PAIN WITH BREATHING O2 SAT AT HOME WAS 86-89% PRIOR TO ARRIVAL, SO CAME HERE. 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 HAS VENA CAVA FILTER IN PLACE. STATES IN THE LAST MONTH, HER DOSE WAS DECREASED DUE TO HER BLOOD BEING "TOO THIN" STATES SHE HAS MISSED DOSES IN THE LAST WEEK--STATES "I DIDN'T FEEL GOOD, SO I DIDN'T TAKE IT" PT IS ALSO DIABETIC. HAS NOT ATTEMPTED TO CONTACT HER PCP FOR ANY OF THESE ISSUES. PCP: DR. WESLEY Allergies and Home Medications Allergies Coded Allergies: aspirin (Verified Allergy, Unknown, 01/03/06) Home Medications Celecoxib 200 Mg Capsule, 200 MG PO DAILY, (Reported) Hydrocodone Bit/Acetaminophen 1 Ea Tablet, 1-2 EA PO Q4H PRN for PAIN-MODERATE Prescribed by: EDWIN PUCKETT on 02/22/18 1046 Metformin HCl 500 Mg Tablet, 500 MG PO BID, (Reported) Metoprolol Succinate 200 Mg Tab.er.24h, 200 MG PO HS, (Reported) Omeprazole 40 Mg Capsule.dr, 40 MG PO BID, (Reported) Pravastatin Sodium 40 Mg Tablet, 40 MG PO DAILY, (Reported) Spironolactone 25 Mg Tablet, 25 MG PO DAILY, (Reported) Warfarin Sodium 6 Mg Tablet, 6 MG PO DAILY, (Reported) Patient Home Medication List Home Medication List Reviewed: Yes Review of Systems Review of Systems Constitutional: see HPI, fever EENTM: no symptoms reported; No nose congestion, No throat pain Respiratory: see HPI, cough, short of breath Cardiovascular: No chest pain, No edema, No palpitations, No syncope Gastrointestinal: see HPI, abdominal pain; No diarrhea; nausea; No vomiting Genitourinary: no symptoms reported Musculoskeletal: see HPI, back pain Skin: no symptoms reported Psychiatric/Neurological: See HPI, Headache Hematologic/Lymphatic: See HPI Immunological/Allergic: no symptoms reported Past Txkxjkp-Dzzgav-Gdwrnq Hx Past Med/Social Hx: Reviewed and Corrections made Patient Social History Alcohol Use: Denies Use Recreational Drug Use: No Smoking Status: Never a Smoker Recent Foreign Travel: No Contact w/Someone Who Travel: No Recent Infectious Disease Expo: No Recent Hopitalizations: No Physical Abuse: No Sexual Abuse: No Mistreated: No Fear: No Immunizations Up To Date Date of Influenza Vaccine: Dec 19, 2017 Seasonal Allergies Seasonal Allergies: Yes Past Medical History Surgeries: Yes (C-SPINE SURGERY; VENA CAVA FILTER. ) Appendectomy, Gallbladder, Hysterectomy, Orthopedic, Vascular Surgery Respiratory: Yes Pulmonary Embolism Cardiac: Yes Deep Vein Thrombosis, High Cholesterol, Hypertension Neurological: No Reproductive Disorders: No Genitourinary: No Gastrointestinal: Yes (S/P CHOLECYSTECTOMY) Gall Bladder Disease Musculoskeletal: Yes (C-SPINE SURGERY) Arthritis Endocrine: Yes Diabetes, Non-Insulin dep HEENT: No Cancer: No Did You Recieve Any Treatments: No Psychosocial: No Anxiety Integumentary: No Blood Disorders: Yes (DVT'S AND P.E.'S ) Physical Exam Vital Signs Vital Signs - First Documented 09/10/19 09/10/19 09/10/19 02:51 02:53 03:00 Temp 37.1 Pulse 114 Resp 22 B/P (MAP) 130/87 (101) Pulse Ox 96 O2 Delivery Room Air O2 Flow Rate 2.00 Capillary Refill : Less Than 3 Seconds Height, Weight, BMI Height: 5'9.00" Weight: 236lbs. 0.0oz. 107.312891kf; 32.00 BMI Method:Stated General Appearance: WD/WN, Other (SLIGHTLY DYSPNEIC ) HEENT: PERRL/EOMI Neck: Full Range of Motion, Normal Inspection, Non Tender, Supple; No Carotid Bruit, No JVD Respiratory: No Accessory Muscle Use, No Respiratory Distress, Other (SLIGHTLY DYSPNEIC. LUNGS CLEAR, BUT DIMINISHED IN BASES BILATERALLY) Cardiovascular: No Edema, No Gallop, No JVD, No Murmur, Normal Peripheral Pulses, Tachycardia (HR 105) Gastrointestinal: Normal Bowel Sounds, No Organomegaly, No Pulsatile Mass, Soft, Tenderness (MILD EPIGASTRIC TENDERNESS) Back: No Vertebral Tenderness, CVA Tenderness (R) Extremity: Normal Capillary Refill, Normal Inspection, Normal Range of Motion, Non Tender, No Calf Tenderness, No Pedal Edema Neurologic/Psychiatric: Alert, Oriented x3, No Motor/Sensory Deficits, Normal Mood/Affect, gravity prospecting observer helper II-XII Norm as Tested Skin: Normal Color, Warm/Dry Focused Exam Lactate Level 09/10/19 03:05: Lactic Acid Level 1.60 Lactic Acid Level Progress/Results/Core Measures Suspected Sepsis Recent Fever Within 48 Hours: No Infection Criteria Present: Suspected New Infection New/Unexplained Altered Menta: No Sepsis Screen: Possible Severe Sepsis Risk SIRS Temperature: Pulse: 91 Respiratory Rate: 16 Laboratory Tests 09/10/19 03:05: White Blood Count 6.3 Blood Pressure 136 /85 Mean: 102 09/10/19 03:05: Lactic Acid Level 1.60 Laboratory Tests 09/10/19 03:05: Creatinine 0.75, INR Comment 1.2, Platelet Count 202, Total Bilirubin 0.6 Results/Orders Lab Results Laboratory Tests Test 09/10/19 03:05 09/10/19 03:37 09/10/19 03:45 Range/Units White Blood Count 6.3 4.3-11.0 10^3/uL Red Blood Count 4.93 4.35-5.85 10^6/uL Hemoglobin 13.7 11.5-16.0 G/DL Hematocrit 41 35-52 % Mean Corpuscular Volume 83 80-99 FL Mean Corpuscular Hemoglobin 28 25-34 PG Mean Corpuscular Hemoglobin Concent 33 32-36 G/DL Red Cell Distribution Width 15.4 H 10.0-14.5 % Platelet Count 202 130-400 10^3/uL Mean Platelet Volume 11.2 H 7.4-10.4 FL Neutrophils (%) (Auto) 55 42-75 % Lymphocytes (%) (Auto) 30 12-44 % Monocytes (%) (Auto) 16 H 0-12 % Eosinophils (%) (Auto) 0 0-10 % Basophils (%) (Auto) 0 0-10 % Neutrophils # (Auto) 3.5 1.8-7.8 X 10^3 Lymphocytes # (Auto) 1.9 1.0-4.0 X 10^3 Monocytes # (Auto) 1.0 0.0-1.0 X 10^3 Eosinophils # (Auto) 0.0 0.0-0.3 10^3/uL Basophils # (Auto) 0.0 0.0-0.1 10^3/uL Erythrocyte Sedimentation Rate 25 0-30 MM/HR Prothrombin Time 16.1 H 12.2-14.7 SEC INR Comment 1.2 0.8-1.4 Activated Partial Thromboplast Time 34 24-35 SEC D-Dimer 0.34 0.00-0.49 UG/ML Sodium Level 137 135-145 MMOL/L Potassium Level 3.3 L 3.6-5.0 MMOL/L Chloride Level 104 98-107 MMOL/L Carbon Dioxide Level 20 L 21-32 MMOL/L Anion Gap 13 5-14 MMOL/L Blood Urea Nitrogen 11 7-18 MG/DL Creatinine 0.75 0.60-1.30 MG/DL Estimat Glomerular Filtration Rate > 60 BUN/Creatinine Ratio 15 Glucose Level 126 H 70-105 MG/DL Lactic Acid Level 1.60 0.50-2.00 MMOL/L Calcium Level 8.8 8.5-10.1 MG/DL Corrected Calcium 8.7 8.5-10.1 MG/DL Magnesium Level 1.8 1.6-2.4 MG/DL Total Bilirubin 0.6 0.1-1.0 MG/DL Aspartate Amino Transf (AST/SGOT) 33 5-34 U/L Alanine Aminotransferase (ALT/SGPT) 33 0-55 U/L Alkaline Phosphatase 80 40-136 U/L Lactate Dehydrogenase 229 H 125-220 U/L Troponin I < 0.028 <0.028 NG/ML C-Reactive Protein High Sensitivity 2.56 H 0.00-0.50 MG/DL B-Type Natriuretic Peptide < 10.0 <100.0 PG/ML Total Protein 7.5 6.4-8.2 GM/DL Albumin 4.1 3.2-4.5 GM/DL Procalcitonin 0.06 <0.10 NG/ML Glucometer 135 H 70-110 MG/DL Urine Color ORANGE Urine Clarity SL CLOUDY Urine pH 6.0 5-9 Urine Specific Sanderson >=1.030 1.016-1.022 Urine Protein 1+ H NEGATIVE Urine Glucose (UA) NEGATIVE NEGATIVE Urine Ketones TRACE H NEGATIVE Urine Nitrite NEGATIVE NEGATIVE Urine Bilirubin NEGATIVE NEGATIVE Urine Urobilinogen 0.2 < = 1.0 MG/DL Urine Leukocyte Esterase NEGATIVE NEGATIVE Urine RBC (Auto) NEGATIVE NEGATIVE Urine RBC RARE /HPF Urine WBC 0-2 /HPF Urine Squamous Epithelial Cells 10-25 H /HPF Urine Crystals NONE /LPF Urine Bacteria FEW H /HPF Urine Casts NONE /LPF Urine Mucus MODERATE H /LPF Urine Culture Indicated YES My Orders Orders - OCTAVIA MILLER DO Ed Iv/Invasive Line Start (09/10/19 02:55) Ekg Tracing (09/10/19 02:55) O2 (09/10/19 02:55) Monitor-Rhythm Ecg Trace Only (09/10/19 02:55) Chest 1 View, Ap/Pa Only (09/10/19 02:55) BNP (09/10/19 02:55) Cbc With Automated Diff (09/10/19 02:55) Comprehensive Metabolic Panel (09/10/19 02:55) Lactic Acid Analyzer (09/10/19 02:55) Procalcitonin (Pct) (09/10/19 02:55) Protime With Inr (09/10/19 02:55) Partial Thromboplastin Time (09/10/19 02:55) Blood Culture (09/10/19 02:55) Troponin I (09/10/19 02:55) Erythrocyte Sedimentation Rate (09/10/19 03:10) Fibrin Degradation Products (09/10/19 03:10) Magnesium (09/10/19 03:10) Ua Culture If Indicated (09/10/19 03:10) Hs C Reactive Protein (09/10/19 03:10) LDH (09/10/19 03:10) Ct Angio Chest W (09/10/19 04:23) Urine Culture (09/10/19 03:45) Iohexol Injection (Omnipaque 350 Mg/Ml 1 (09/10/19 04:30) Received Contrast (Hold Metformin- Contr (09/10/19 04:30) Ns (Ivpb) (Sodium Chloride 0.9% Ivpb Bag (09/10/19 04:30) Accucheck Stat ONCE (09/10/19 04:47) Azithromycin Injection (Zithromax Inject (09/10/19 05:51) Ceftriaxone For Iv Use (Rocephin For I (09/10/19 06:00) Enoxaparin Injection (Lovenox Injection) (09/10/19 06:00) Fentanyl Injection (Sublimaze Injection (09/10/19 06:15) Medications Given in ED Current Medications Medications Dose Ordered Sig/Silver Route Start Time Stop Time Status Last Admin Dose Admin Ceftriaxone Sodium 1000 mg/ Sterile Water 10 ml @ 200 mls/hr ONCE ONCE IV 09/10/19 06:00 09/10/19 06:02 DC 09/10/19 06:00 200 MLS/HR Enoxaparin Sodium 100 mg ONCE ONCE SC 09/10/19 06:00 09/10/19 06:01 DC 09/10/19 06:32 100 MG Fentanyl Citrate 50 mcg ONCE ONCE IVP 09/10/19 06:15 09/10/19 06:16 DC 09/10/19 06:27 50 MCG Vital Signs/I&O 09/10/19 09/10/19 09/10/19 09/10/19 02:51 02:53 02:54 03:00 Temp 37.1 37.1 Pulse 114 106 109 Resp 20 B/P (MAP) 130/87 (101) 130/95 (107) 145/95 (112) Pulse Ox 96 O2 Delivery Room Air Nasal Cannula Nasal Cannula Nasal Cannula O2 Flow Rate 2.00 2.00 2.00 09/10/19 09/10/19 09/10/19 09/10/19 03:15 03:30 03:45 04:00 Pulse 103 98 103 98 Resp 18 18 18 18 B/P (MAP) 130/87 (101) 127/85 (99) 137/79 (98) 127/85 (99) Pulse Ox 95 96 96 95 O2 Delivery Nasal Cannula Nasal Cannula Nasal Cannula Nasal Cannula O2 Flow Rate 2.00 2.00 2.00 2.00 09/10/19 09/10/19 09/10/19 09/10/19 04:15 04:30 04:59 05:15 Pulse 94 91 86 90 Resp 16 16 17 19 B/P (MAP) 128/65 (86) 136/85 (102) 131/73 (92) 122/71 (88) Pulse Ox 96 96 96 96 O2 Delivery Nasal Cannula Nasal Cannula Nasal Cannula Nasal Cannula O2 Flow Rate 2.00 2.00 2.00 2.00 09/10/19 09/10/19 09/10/19 09/10/19 05:30 05:45 06:15 06:30 Temp 37.1 37.1 Pulse 84 84 90 75 Resp 18 16 16 16 B/P (MAP) 143/84 (103) 142/87 (105) 137/85 (102) 138/84 (102) Pulse Ox 95 96 96 99 O2 Delivery Nasal Cannula Nasal Cannula Nasal Cannula Nasal Cannula O2 Flow Rate 2.00 2.00 2.00 2.00 Capillary Refill : Less Than 3 Seconds Blood Pressure Mean: 102 Point of Care Testing Finger Stick Blood Glucose: 135 Blood Glucose Action Taken: DR. MILLER NOTIFIED. Progress Note : Progress Note PT SEEN IN COVID UNIT. PPE WORN AT ALL TIMES. INITIAL O2 SATS 92-93% ON ROOM AIR--UP TO 96-97% ON 2L/NC--DYSPNEA IMPROVED CONTINUES TO C/O RIGHT FLANK PAIN--FENTANYL GIVEN WITH IMPROVEMENT UNEVENTFUL ER STAY ECG Initial ECG Impression Date: Sep 10, 2019 Initial ECG Impression Time: 03:19 Initial ECG Rate: 97 Initial ECG Rhythm: Normal Sinus Diagnostic Imaging Comments CXR--BIBASILAR INFILTRATES, PENDING RADIOLOGIST REVIEW CT CHEST ANGIOGRAM--PER RADIOLOGIST REPORT AT 0603, AND SIMILAR REPORT FROM [facility] VIA FAX AT 6225 IMPRESSION: 1. No pulmonary emboli or acute aortic syndrome. 2. Scattered groundglass pulmonary opacities have a distribution most suggestive acute lung injury often associated with COVID-19. 3. No features of superimposed bacterial pneumonia. Reviewed: Reviewed by Me Departure Communication (Admissions) 0545--ATTEMPTING TO CONTACT DR. WESLEY, MESSAGE LEFT ON CELL 06--SPOKE WITH DR. WESLEY, SHE ADVISES TO ADMIT TO HOSPITALIST, PER CURRENT HOSPITAL POLICY 06--ATTEMPTING TO CONTACT DR. HIDALGO, HOSPITALIST. MESSAGE LEFT ON CELL. 0635--ATTEMPTING TO CONTACT DR. HIDALGO, MESSAGE LEFT ON CELL. 0705--SPOKE WITH DR. HIDALGO, ACCEPTS PT FOR ADMIT Impression Primary Impression: COVID 19 INFECTION Additional Impressions: Bilateral pneumonia Hypoxia NIDDM Epigastric abdominal pain H/O right flank pain Right flank pain Disposition: ADMITTED INPATIENT Condition: Improved Admissions Decision to Admit Reason: Admit from ER (General) Decision to Admit/Date: Sep 10, 2019 Time/Decision to Admit Time: 05:45 Departure-Patient Inst. Referrals: MELANIE SCHULZ MD (PCP/Family) Primary Care Physician OCTAVIA MILLER DO Sep 10, 2019 05:23
[2019-09-10] MEDS ORDERED: AZITHROMYCIN INJECTION 500 MG in NS (IVPB) 250 ML IV STA (05:51)
--- NOTE | 2019-09-10 05:53 | Diagnostic Imaging Report ---
PROCEDURE: CT angiography Chest TECHNIQUE: After intravenous administration of contrast, thin section axial CT angiography of the chest was performed. 3D MIP reconstructions were made. All CT scans use one or more of the following dose optimizing techniques: automated exposure control, MA and/or KvP adjustment based on a patient size and exam type, or iterative reconstruction. INDICATION: Dyspnea. Positive test for COVID-19. COMPARISON: CTA chest of 10/14/2017 FINDINGS: Vasculature: No pulmonary emboli. No CT evidence of pulmonary hypertension or right ventricular strain. Thoracic aorta is normal in caliber. No aortic dissection or pseudoaneurysm. Heart and mediastinum: Visualized thyroid is normal. No supraclavicular, axillary, or intra-thoracic lymphadenopathy. Bilateral borderline enlarged hilar lymph nodes are likely reactive in nature, but all measure less than 1 cm in size. The heart is normal in size without pericardial effusion. Pleura: No pleural effusion or pneumothorax. Lungs and airway: No endoluminal lesion in the trachea or central bronchi. Scattered peripheral and peribronchial groundglass opacities. No consolidations or cavitary lung masses. No interstitial lung disease. Upper abdomen: Hypoattenuation liver raises possibility of hepatic steatosis. Musculoskeletal: No concerning osseous lesion. IMPRESSION: 1. No pulmonary emboli or acute aortic syndrome. 2. Scattered groundglass pulmonary opacities have a distribution most suggestive acute lung injury often associated with COVID-19. 3. No features of superimposed bacterial pneumonia. Dictated by: Dictated on workstation # [id number]
[2019-09-10] MEDS ORDERED: ENOXAPARIN 100 MG/1 ML (LOVENOX) SYR SC ONE (06:00)
[2019-09-10] MEDS ORDERED: cefTRIAXone FOR IV USE 1,000 MG in WATER (STERILE) FOR INJECTION 10 ML IV ONE (06:00)
--- NOTE | 2019-09-10 06:07 | Diagnostic Imaging Report ---
EXAMINATION: Single frontal view of the chest. INDICATION: Shortness of breath and dyspnea. COMPARISON: Multiple priors, most recent performed on 10/12/2017. FINDINGS: There is mild left basilar consolidation as well as ill-defined consolidation in the left midlung. The lungs are otherwise clear and the pulmonary vasculature is normal. No pneumothorax or large pleural effusion. Heart size and mediastinal contours are normal and unchanged. No acute osseous abnormality is appreciated. IMPRESSION: Ill-defined consolidation in the left midlung and mild left basilar consolidation, reflecting atelectasis or infection. Otherwise, no radiographic evidence of acute chest disease. Dictated by: Dictated on workstation # [id number]
[2019-09-10] MEDS ORDERED: fentaNYL INJECTION 100 MCG/2 ML AMP IVP ONE (06:15)
--- NOTE | 2019-09-10 07:15 | NUR ---
REPORT FROM [facility]. PT RESTING IN BED AWAKE O2 ON. IV ANITBIOTIC INFUSING W/O INFILTRATION
--- NOTE | 2019-09-10 09:22 | NUR ---
RECEIVED PT IN ROOM AND REPORT FROM [facility]
--- NOTE | 2019-09-10 09:24 | NUR ---
FIONA FRANCO admitted to room 432-1, with an admitting diagnosis of PNEUMONIA, on 09/10/19 from ED, accompanied by PERSONNEL.FIONA FRANCO introduced to surroundings, call light, bed controls, phone, TV, temperature control, lights, meal times, smoking policy, visitor policy, side rail policy, bathrooms and showers. Patient Rights given to patient in the handbook. FIONA FRANCO verbalizes understanding that [facility] is not responsible for the loss or damage to any personal effects or valuables that are kept in the patients posession during their hospitalization. The following Patient Care Plans were discussed with thePATIENT: Discharge Planning, INADEQUATE OXYGENATION,ISOLATION, and INFECTION CONTROL. FIONA FRANCO verbalizes understanding of Interdisciplinary Patient Education.
[2019-09-10] MEDS ORDERED: ACETAMINOPHEN 500 MG TAB (TYLENOL) PO PRN (10:15)
[2019-09-10] MEDS ORDERED: CATHETER FLUSH 10 ML SYR IV PRN (10:15)
[2019-09-10] MEDS ORDERED: PANTOPRAZOLE 40 MG (PROTONIX) VIAL IV SCH (10:16)
[2019-09-10] MEDS ORDERED: inSUlin ASPART (NovoLOG) 1 UNIT/0.01 ML (CHARGE PER UNIT) SC SCH (10:17)
[2019-09-10] MEDS ORDERED: fentaNYL INJECTION 100 MCG/2 ML AMP IV PRN (10:30)
[2019-09-10] MEDS: inSUlin ASPART (NovoLOG) 1 UNIT/0.01 ML (CHARGE PER UNIT) SC SCH ×3 (11:26→21:52)
[2019-09-10] MEDS: RT-ALBUTEROL INHALER HFA (VENTOLIN HFA) 8 GM IH SCH ×3 (11:40→19:50)
[2019-09-10] MEDS ORDERED: METF-865 PO (12:30)
[2019-09-10] MEDS ORDERED: EMPA25TA PO (12:30)
[2019-09-10] MEDS ORDERED: CELE-63 PO (12:30)
[2019-09-10] MEDS ORDERED: CHOL500050 PO (12:31)
--- NOTE | 2019-09-10 12:31 | NUR ---
SPOKE WITH THE PT (I CALLED HER CELL PHONE) AND WENT THRU THE EXT MED HISTORY TO COMPLETE THE MED REC METFORMIN ER 500MG- THE DIRECTIONS SHOW 1 TAB BID HOWEVER THE PT SAYS SHE TAKES 2 TAB AT THE SAME TIME @ HS- PT INDICATES SHE FORGETS TO TAKE THE MORNING DOES SO SHE HAS JUST STARTED TAKING BOTH DOSES AT NIGHT. OTC MEDS: VIT D 125MCG
[2019-09-10] MEDS: 1/2 NS W/KCL 20 MEQ/L 1,000 ML IV SCH ×2 (12:37→17:43)
[2019-09-10] MEDS ORDERED: warFARin 10 MG (COUMADIN) TAB PO NR (14:15)
--- NOTE | 2019-09-10 14:32 | NUR ---
RESPIRATORY NOTIFIED OF ORDER FOR OVERNIGHT CONTINUOUS PULSE-OX
[2019-09-10] MEDS: ENOXAPARIN 100 MG/1 ML (LOVENOX) SYR SC SCH (17:43)
[2019-09-10] MEDS ORDERED: ONDANSETRON 4 MG/2 ML (SDV) Z0FRAN IV PRN (18:15)
[2019-09-10] MEDS ORDERED: ACETAMINOPHEN 325 MG TABLET PO PRN (18:15)
[2019-09-10] MEDS ORDERED: MELATONIN 3 MG TABLET PO PRN (18:15)
[2019-09-10] MEDS ORDERED: diphenhydrAMINE 25 MG TAB (BENADRYL) PO PRN (18:15)
[2019-09-10] MEDS ORDERED: ONDANSETRON 4 MG (ZOFRAN) ORAL DISSOLVE TAB PO PRN (18:15)
[2019-09-10] MEDS ORDERED: polyethylene glycoL POWDER 17 GM (MIRALAX) PACK PO PRN (18:15)
[2019-09-10] MEDS ORDERED: ANTACID SUSP 30 ML UDC (MYLANTA) PO PRN (18:15)
[2019-09-10] MEDS ORDERED: BISACODYL 10 MG SUPP (DULCOLAX) PR PRN (18:15)
--- NOTE | 2019-09-10 18:25 | History & Physical-Hospitalist ---
History of Present Illness HPI/Chief Complaint Nava Lazo is a 54 year old female with PMH HTN, HLD, DVT/PE on coumadin, who presented with shortness of breath. She was diagnosed with COVID-19 about a week ago. Her symptoms started a little over a week ago. Her and daughter also both tested positive but were asymptomatic. They both work at [employer]. She denies having any fevers above 99 at home. She has had worsening shortness of breath recently. She checked her oxygen level with a pulse oximeter and it was in the mid-upper 80s. She has had a dry cough, occasionally productive of sputum. She denies any chest pain or palpitations. She reports abdominal pain and nausea. She denies any other complaints or concerns. She is a nonsmoker. She is a nondrinker. She does not use any illicit drugs. Source: patient Exam Limitations: no limitations Date Seen 09/10/19 Time Seen by a Provider: 09:20 Attending Physician Niru Hidalgo MD PCP Aureliano Norris MD Referring Physician Date of Admission Sep 10, 2019 at 07:19 Home Medications & Allergies Home Medications Reviewed patient Home Medication Reconciliation performed by pharmacy medication reconciliations nutrition technician and/or nursing. Patients Allergies have been reviewed. Allergies Allergies Coded Allergies aspirin (Verified Allergy, Unknown, 01/03/06) Past Edznhwt-Rstyop-Izpecm Hx Past Med/Social Hx: Reviewed Nursing Past Med/Soc Hx Patient Social History Alcohol Use: Denies Use Recreational Drug Use: No Smoking Status: Never a Smoker Recent Foreign Travel: No Contact w/other who traveled: No Recent Hopitalizations: No Recent Infectious Disease Expo: No Immunizations Up To Date Date of Pneumonia Vaccine: Jan 09, 2019 Date of Influenza Vaccine: Dec 19, 2017 Seasonal Allergies Seasonal Allergies: Yes Past Medical History Surgeries: Appendectomy, Gallbladder, Hysterectomy, Orthopedic, Vascular Surgery Cardiac: Deep Vein Thrombosis, High Cholesterol, Hypertension Reproductive: No Gastrointestinal: Gall Bladder Disease Musculoskeletal: Arthritis Endocrine: Diabetes, Non-Insulin dep Did You Recieve Any Treatments: No Psychosocial: Anxiety History of Blood Disorders: Yes (DVT'S AND P.E.'S ) Family History LUNG CANCER 19 FATHER 19 MOTHER LUNG CANCERPROSTATE CANCER 19 FATHER Liver cancer 19 FATHER Lung cancer Myocardial infarction 19 MOTHER Review of Systems Constitutional: fever Respiratory: cough, short of breath Cardiovascular: no symptoms reported Gastrointestinal: abdominal pain, nausea Genitourinary: no symptoms reported Musculoskeletal: back pain Skin: no symptoms reported Psychiatric/Neurological: No Symptoms Reported Physical Exam Physical Exam Vital Signs Vital Signs - First Documented 09/10/19 09/10/19 09/10/19 09/10/19 02:51 02:53 03:00 10:49 Temp 37.1 Pulse 114 Resp 22 B/P (MAP) 130/87 (101) Pulse Ox 96 O2 Delivery Room Air O2 Flow Rate 2.00 FiO2 21 Capillary Refill : Less Than 3 SecondsLess Than 3 Seconds Height, Weight, BMI Height: 5'9.00" Weight: 236lbs. 0.0oz. 107.354330wb; 34.12 BMI Method:Stated General Appearance: No Apparent Distress, Obese HEENT: PERRL/EOMI, Pharynx Normal Neck: Normal Inspection, Supple Respiratory: Lungs Clear, Normal Breath Sounds, No Respiratory Distress Cardiovascular: Regular Rate, Rhythm, No Edema, No Murmur Gastrointestinal: Normal Bowel Sounds, Non Tender, Soft Extremity: Normal Inspection, Non Tender, No Pedal Edema Neurologic/Psychiatric: Alert, Oriented x3, No Motor/Sensory Deficits, Normal Mood/Affect Skin: Normal Color, Warm/Dry Results Results/Procedures Labs Laboratory Tests 09/10/19 03:05 Patient resulted labs reviewed. Imaging: Reviewed Imaging Report Assessment/Plan Admission Diagnosis Acute hypoxic respiratory failure due to COVID-19 Admission Status: Observation Assessment and Plan COVID-19 Acute hypoxic respiratory failure -COVID+ at outside facility -Worsening hypoxia -Requiring intermittent supplemental O2 -Obtain nocturnal trend ox -CT negative for PE, no superimposed bacterial pneumonia -Procalcitonin normal -Antibiotics not indicated -Continue to monitor closely HTN -Continue metoprolol DVT/PE -Begin Lovenox bridge -Resume Coumadin DVT Prophylaxis: already receiving therapeutic anticoagulation Diagnosis/Problems Diagnosis/Problems (1) COVID-19 Status: Acute (2) Acute respiratory failure with hypoxia Status: Acute Clinical Quality Measures DVT/VTE Risk/Contraindication: Risk Factor Score Per Nursin RFS Level Per Nursing on Admit: 4+=Very High NIRU HIDALGO MD Sep 10, 2019 18:25
[2019-09-10] MEDS ORDERED: POTASSIUM CL 10 MEQ/50 ML IVPB (PRE-MIX) IV SCH (18:30)
[2019-09-10] MEDS: KCL 20 MEQ TAB (K-DUR) PO SCH ×2 (19:50→21:00)
[2019-09-10] MEDS ORDERED: meTOprolol SUCCINATE 100 MG (TOPROL XL) TAB PO SCH (21:00)
[2019-09-10] MEDS: DOCUSATE SODIUM 100 MG (COLACE) CAP PO SCH (21:51)
[2019-09-10] MEDS: SENNOSIDES 8.6 MG (SENOKOT) TAB PO SCH (21:51)
[2019-09-11 00:46] VITALS: BP 136/79
[2019-09-11 04:15] VITALS: BP 132/72
[2019-09-11] MEDS: ENOXAPARIN 100 MG/1 ML (LOVENOX) SYR SC SCH (05:41)
[2019-09-11 05:55] LABS: BASOPHILS % (AUTO) 0 % (0-10); EOSINOPHILS % (AUTO) 0 % (0-10); HEMATOCRIT 39 % (35-52); HEMOGLOBIN 12.4 G/DL (11.5-16.0); LYMPHOCYTES # (AUTO) 1.7 X 10^3 (1.0-4.0); LYMPHOCYTES % (AUTO) 38 % (12-44); MEAN CORPUSCULAR HEMOGLOBIN 27 PG (25-34); MEAN CORPUSCULAR HGB CONC 32 G/DL (32-36); MEAN CORPUSCULAR VOLUME 84 FL (80-99); MEAN PLATELET VOLUME 10.3 FL (7.4-10.4); MONOCYTES # (AUTO) 0.6 X 10^3 (0.0-1.0); MONOCYTES % (AUTO) 13 % (0-12); NEUTROPHILS # (AUTO) 2.2 X 10^3 (1.8-7.8); NEUTROPHILS % (AUTO) 49 % (42-75); PLATELET COUNT 196 10^3/uL (130-400); RED CELL DISTRIBUTION WIDTH 15.6 % (10.0-14.5); WHITE BLOOD COUNT 4.5 10^3/uL (4.3-11.0)
[2019-09-11] MEDS ORDERED: KCL 20 MEQ TAB (K-DUR) PO SCH (06:00)
[2019-09-11] MEDS ORDERED: POTASSIUM CL 10MEQ/50ML IVPB 50 ML IV SCH (06:00)
[2019-09-11] MEDS ORDERED: MAGNESIUM 1 GM/100 ML IVPB 100 ML IV SCH (06:00)
[2019-09-11 06:06] LABS: INR 1.3 (0.8-1.4); PROTHROMBIN TIME PATIENT 16.8 SEC (12.2-14.7)
[2019-09-11 06:11] LABS: ALBUMIN 3.7 GM/DL (3.2-4.5); CHLORIDE 107 MMOL/L (98-107); POTASSIUM 3.9 MMOL/L (3.6-5.0); SODIUM 137 MMOL/L (135-145)
[2019-09-11 06:12] LABS: CALCIUM 8.6 MG/DL (8.5-10.1)
[2019-09-11 06:13] LABS: GLUCOSE 131 MG/DL (70-105); TOTAL PROTEIN 6.7 GM/DL (6.4-8.2)
[2019-09-11 06:14] LABS: CARBON DIOXIDE 21 MMOL/L (21-32)
[2019-09-11 06:15] LABS: BILIRUBIN,TOTAL 0.4 MG/DL (0.1-1.0)
[2019-09-11 06:16] LABS: ALKALINE PHOSPHATASE 74 U/L (40-136)
[2019-09-11 06:17] LABS: CREATININE SERUM 0.72 MG/DL (0.60-1.30); GFR ESTIMATED > 60
[2019-09-11 06:18] LABS: BUN/CREATININE RATIO 11
[2019-09-11 06:20] LABS: ALANINE AMINOTRANSFERASE 46 U/L (0-55); MAGNESIUM 1.9 MG/DL (1.6-2.4)
[2019-09-11] MEDS: inSUlin ASPART (NovoLOG) 1 UNIT/0.01 ML (CHARGE PER UNIT) SC SCH ×2 (06:24→12:24)
[2019-09-11] MEDS: SENNOSIDES 8.6 MG (SENOKOT) TAB PO SCH (07:40)
[2019-09-11] MEDS: DOCUSATE SODIUM 100 MG (COLACE) CAP PO SCH (07:40)
[2019-09-11 07:42] VITALS: BP 126/63
[2019-09-11] MEDS: RT-ALBUTEROL INHALER HFA (VENTOLIN HFA) 8 GM IH SCH ×3 (07:42→14:33)
[2019-09-11] MEDS ORDERED: cefTRIAXone 1,000 MG/SWFI 10 ML IV PUSH IV SCH ×2 (09:00)
[2019-09-11] MEDS ORDERED: AZITHROMYCIN 250 MG TAB (ZITHROMAX) PO SCH (09:00)
--- NOTE | 2019-09-11 09:03 | NUR ---
LOW SPO2 79%. PER NURSE CHARTING PT WAS ON O2 @ 1 LPM. Addendum: 09/11/19 at 0904 by YVETTE FUNK RT Amended: Links added.
--- NOTE | 2019-09-11 09:14 | Diagnostic Imaging Report ---
INDICATION: COVID-19 positive, pneumonia. TECHNIQUE: Single view chest 4:05 AM. CORRELATION STUDY: 09/10/2019 FINDINGS: The heart size, mediastinal configuration and pulmonary vascularity are within normal limits. Minimal wispy pulmonary parenchymal densities are present particularly in the lateral left mid and lower and right lower lung field. Overall appearing perhaps slightly improved. IMPRESSION: 1. Scattered mid and lower lung pulmonary parenchymal densities are present. Overall perhaps slightly improved from one day earlier Report was faxed to Zechariah Machado, Infection Control [facility] by kirill at 9:13AM. Dictated by: Dictated on workstation # [id number]
[2019-09-11] MEDS ORDERED: ENOX100D9 SQ (10:32)
--- NOTE | 2019-09-11 10:44 | Discharge Summary ---
Discharge Summary Hospital Course Was the Problem List Reviewed?: Yes Problems/Dx: (1) COVID-19 Status: Acute (2) Acute respiratory failure with hypoxia Status: Acute Hospital Course Date of Admission: Sep 10, 2019 at 07:19 Admission Diagnosis : Acute hypoxic respiratory failure due to COVID-19 Family Physician/Provider: Aureliano Norris MD Date of Discharge: 09/11/19 Discharge Diagnosis: Acute hypoxic respiratory failure due to COVID-19 Hospital Course: Nava Lazo is a 54-year-old female who presented with shortness of breath and was admitted with acute hypoxic respiratory failure due to COVID-19. She had tested positive for coronavirus as an outpatient about a week prior. She had worsening dyspnea and hypoxia at home. Upon arrival in the emergency room her oxygen saturations were in the low 90s. She required a small amount of oxygen during sleep. She was set up with nocturnal oxygen on discharge. Her course wa s complicated by subtherapeutic INR with history of DVT/PE. She was started on Lovenox to bridge until her Coumadin is therapeutic. She was discharged in stable condition. She was instructed to quarantine when she gets home. The health department should be in contact with her for further instructions. She should follow-up with Dr. Gee in about 2 weeks. Labs and Pending Lab Test: Laboratory Tests 09/10/19 15:29: Glucometer 126H 09/10/19 19:48: Glucometer 100 09/11/19 05:30: White Blood Count 4.5, Red Blood Count 4.61, Hemoglobin 12.4, Hematocrit 39, Mean Corpuscular Volume 84, Mean Corpuscular Hemoglobin 27, Mean Corpuscular Hemoglobin Concent 32, Red Cell Distribution Width 15.6H, Platelet Count 196, Mean Platelet Volume 10.3, Neutrophils (%) (Auto) 49, Lymphocytes (%) (Auto) 38, Monocytes (%) (Auto) 13H, Eosinophils (%) (Auto) 0, Basophils (%) (Auto) 0, Neutrophils # (Auto) 2.2, Lymphocytes # (Auto) 1.7, Monocytes # (Auto) 0.6, Eosinophils # (Auto) 0.0, Basophils # (Auto) 0.0, Prothrombin Time 16.8H, INR Co mment 1.3, Sodium Level 137, Potassium Level 3.9, Chloride Level 107, Carbon Dioxide Level 21, Anion Gap 9, Blood Urea Nitrogen 8, Creatinine 0.72, Estimat Glomerular Filtration Rate > 60, BUN/Creatinine Ratio 11, Glucose Level 131H, C alcium Level 8.6, Corrected Calcium 8.8, Magnesium Level 1.9, Total Bilirubin 0.4, Aspartate Amino Transf (AST/SGOT) 54H, Alanine Aminotransferase (ALT/SGPT) 46, Alkaline Phosphatase 74, Total Protein 6.7, Albumin 3.7 Home Meds Active Lovenox (Enoxaparin Sodium) 100 Mg/1 Ml Syringe 100 Mg SQ BID 7 Days Reported Vitamin D3 (Cholecalciferol (Vitamin D3)) 125 Mcg Capsule 125 Mcg PO HS Celecoxib 200 Mg Capsule 200 Mg PO BID Metformin HCl ER (Metformin HCl) 500 Mg Tab.er.24h 1,000 Mg PO HS TAKES 2 (500MG) TABS AT BEDTIME Jardiance (Empagliflozin) 25 Mg Tablet 25 Mg PO DAILY Pravastatin Sodium 40 Mg Tablet 40 Mg PO HS Warfarin Sodium 6 Mg Tablet 6 Mg PO HS Metoprolol Succinate 200 Mg Tab.er.24h 200 Mg PO HS Assessment/Pt Instructions Take medications as prescribed. You will need to quarantine when you get home. You're being set up with nighttime oxygen. You will need to use Lovenox injections until your INR is therapeutic again. You have been scheduled for an INR check on . Follow-up with Dr. Gee in a couple weeks. Discharge Planning: <30 minutes discharge planning Discharge Instructions Discharge Diet: No Restrictions Activity as Tolerated: Yes Discharge Physical Examination Vital Signs Vital Signs Date Time Temp Pulse Resp B/P (MAP) Pulse Ox O2 Delivery O2 Flow Rate FiO2 09/11/19 08:00 92 Room Air 1.00 09/11/19 07:42 36.1 85 24 126/63 (84) 09/10/19 10:49 21 General Appearance: No Apparent Distress, Obese Respiratory: Lungs Clear, Normal Breath Sounds, No Respiratory Distress Cardiovascular: Regular Rate, Rhythm, No Edema, No Murmur Gastrointestinal: Normal Bowel Sounds, Non Tender, Soft Extremity: Normal Inspection, Non Tender, No Pedal Edema Skin: Normal Color, Warm/Dry Neurologic/Psychiatric: Alert, Oriented x3, No Motor/Sensory Deficits, Normal Mood/Affect Allergies: Coded Allergies: aspirin (Verified Allergy, Unknown, 01/03/06) Copy Copies To 1: GILDA GEE DO Discharge Summary Date of Admission Sep 10, 2019 at 07:19 Date of Discharge Discharge Date: Sep 11, 2019 Discharge Time: 10:40 Admission Diagnosis Acute hypoxic respiratory failure due to COVID-19 Discharge Diagnosis Acute hypoxic respiratory failure due to COVID-19 (1) COVID-19 Status: Acute (2) Acute respiratory failure with hypoxia Status: Acute Clinical Quality Measures DVT/VTE Risk/Contraindication: Risk Factor Score Per Nursin RFS Level Per Nursing on Admit: 4+=Very High FUENTES HIDALGO MD Sep 11, 2019 10:43
--- NOTE | 2019-09-11 11:12 | NUR ---
CM/SS: Visited with pt via phone as to plan for discharge. Plan: Pt to discharge to home with oxygen for use in home - primarily at night. Summary: Pt is able to visit with this worker, and reports that she has not had oxygen in the home prior to this hospital stay. She does not have a preference for DME providers and report she is ok with [facility]. She is able to verify the phone number for her and asked that he be called to arrange the delivery to the home. Pt reports she is doing ok at this time. Information is faxed to [facility].
[2019-09-11 12:00] VITALS: BP 137/71
--- NOTE | 2019-09-11 12:45 | NUR ---
PER MARLA RN'S CHARTING ON 09/10/19 @ 2100, SPO2 88% ON ROOM AIR @ REST. REPLACED O2 @ 1 LPM. SPO2 INCREASED TO 98%.
[2019-09-11] MEDS ORDERED: warFARin 3 MG (COUMADIN) TAB PO SCH (18:00)
== END 2019-09-11 14:50 | disposition home or self-care (01) ==
LOC: EDUNIT# 02:48 → ER 02:50 → 4TH 07:19 → INTOOBSV 07:19 → ICU 07:47 → 4TH 08:24
PROVIDERS: ADMIT Internal Medicine; ATTEND Internal Medicine
DX: U07.1 COVID-19 (principal); E11.9 Type 2 diabetes mellitus without complications; J96.01 Acute respiratory failure with hypoxia; F41.9 Anxiety disorder, unspecified; E78.00 Pure hypercholesterolemia, unspecified; I10 Essential (primary) hypertension; M19.90 Unspecified osteoarthritis, unspecified site; Z80.1 Family history of malignant neoplasm of trachea, bronchus and lung; Z86.718 Personal history of other venous thrombosis and embolism; Z86.711 Personal history of pulmonary embolism; Z79.01 Long term (current) use of anticoagulants; Z79.84 Long term (current) use of oral hypoglycemic drugs; Z79.899 Other long term (current) drug therapy; Z88.6 Allergy status to analgesic agent; Z90.49 Acquired absence of other specified parts of digestive tract
CPT/HCPCS: 36415; 71045; 71275; 80053; 81000; 82962; 83605; 83615; 83735; 83880; 84145; 84484; 85025; 85379; 85610; 85652; 85730; 86141; 87040; 87088; 93005; 93041; 94640; 94664; 94760; G0378

== ENCOUNTER → 2019-09-13 | Outpatient (CLI) | payer BC ==
[~2019-09-13] MED LIST changes: +CELE-63 PO; +CHOL500050 PO; +EMPA25TA PO; +ENOX100D9 SQ; +METF-865 PO
[2019-09-13 11:52] LABS: INR 1.4 (0.8-1.4); PROTHROMBIN TIME PATIENT 18.1 SEC (12.2-14.7)
== END ==
LOC: LAB 11:13
PROVIDERS: ATTEND Internal Medicine
DX: Z01.89 Encounter for other specified special examinations (principal); Z86.718 Personal history of other venous thrombosis and embolism; Z86.711 Personal history of pulmonary embolism
CPT/HCPCS: 36415; 85610

== ENCOUNTER 2020-01-29 05:36 | Outpatient (RCR) | payer BC ==
[~2020-01-29] VITALS: Ht 175.3 cm; Wt 103.2 kg
[~2020-01-29 05:36] MED LIST changes: +FAMO-119 PO; +PANT40TA52 PO
--- NOTE | 2020-01-30 08:25 | NUR ---
Notified of Positive COVID test.
== END 2020-01-29 10:59 | disposition home or self-care (01) ==
LOC: PREOP 05:36
PROVIDERS: ATTEND Surgery
DX: Z01.812 Encounter for preprocedural laboratory examination (principal); Z20.828 Contact with and (suspected) exposure to other viral communicable diseases
CPT/HCPCS: 87635

== ENCOUNTER → 2020-01-31 | Outpatient (CLI) | payer BC | LOC: LABNPT 05:42 | PROVIDERS: ATTEND Family Medicine | DX: R09.81 Nasal congestion (principal); Z20.828 Contact with and (suspected) exposure to other viral communicable diseases; Z86.19 Personal history of other infectious and parasitic diseases | CPT/HCPCS: 87635 ==

== ENCOUNTER → 2020-02-01 | Outpatient (CLI) | payer BC | LOC: LAB 13:23 | PROVIDERS: ATTEND Family Medicine | DX: Z86.19 Personal history of other infectious and parasitic diseases (principal) | CPT/HCPCS: 36415; 86769 ==

== ENCOUNTER → 2020-04-03 | Outpatient (CLI) | payer BC ==
--- NOTE | 2020-04-03 16:45 | Diagnostic Imaging Report ---
EXAMINATION: Chest 2 views. HISTORY: Dyspnea. COMPARISON: 09/11/2019 FINDINGS: The lungs are clear without edema or pneumonia. No pleural effusion or pneumothorax. Heart size is normal. IMPRESSION: 1. Clear lungs. Dictated by: Dictated on workstation # [id number]
--- NOTE | 2020-04-03 17:26 | Diagnostic Imaging Report ---
INDICATION: Back pain. EXAMINATION: Lumbar spine at 4:18 p.m. Three views were obtained. COMPARISON: There is no prior lumbar spine examination available for comparison. FINDINGS: The lateral view shows fairly severe degenerative disc and bony disease at L5-S1. There is marked narrowing of the disc space at this level as well as sclerosis of the opposing endplates of L4 and L5. The other intervertebral spaces are fairly well maintained. There is no fracture or acute bony abnormality identified. There is no sign of a paraspinal mass. There is a vena cava filter in place as well as surgical clips in the right upper quadrant. There is mild symmetrical sclerosis of the sacroiliac joints. IMPRESSION: 1. There is no evidence for an acute bony abnormality. 2. There is severe degenerative disc and bony disease at L5-S1. 3. If there is clinical concern regarding spinal stenosis or nerve root encroachment, then MRI would be recommended for further study. Dictated by: Dictated on workstation # [id number]
--- NOTE | 2020-04-03 17:30 | Diagnostic Imaging Report ---
INDICATION: Back pain. EXAMINATION: Thoracic spine at 4:16 p.m. AP, lateral and swimmer's views were obtained. FINDINGS: The lateral view shows the vertebral body heights and alignment to be within normal limits and similar to the prior chest exam of 10/12/2017. There is mild degenerative disc disease throughout the thoracic spine. There is no fracture or acute bony abnormality evident. There is no sign of a paraspinal mass. IMPRESSION: There is no evidence for an acute bony abnormality. Dictated by: Dictated on workstation # [id number]
== END ==
LOC: RAD 15:46
PROVIDERS: ATTEND Family Medicine
DX: M51.37 Other intervertebral disc degeneration, lumbosacral region (principal); R06.00 Dyspnea, unspecified
CPT/HCPCS: 71046; 72072; 72100

== ENCOUNTER → 2020-05-02 | Outpatient (CLI) | payer BC ==
--- NOTE | 2020-05-02 13:00 | Diagnostic Imaging Report ---
INDICATION: PAIN IN LEFT ANKLE, FALL COMPARISON: None. Findings: Three radiographic views of the left ankle were obtained. There is transverse oriented lucency involving the distal tip of the medial malleolus. This is only well visualized on the oblique view. Conceivably, this could be on the basis of acute avulsion fracture. There is no prior available for comparison purposes. The remaining osseous structures are intact. Joint spaces are maintained. No unexpected radiopaque foreign bodies are seen. There is mild generalized soft tissue swelling. IMPRESSION: 1. Possible acute avulsion fracture of the medial malleolus. Correlation with point tenderness is advised. Dictated by: Dictated on workstation # [id number]
== END ==
LOC: RAD 12:35
PROVIDERS: ATTEND Nurse Practitioner Family
DX: M25.572 Pain in left ankle and joints of left foot (principal); W19.XXXA Unspecified fall, initial encounter
CPT/HCPCS: 73610

== ENCOUNTER → 2020-07-25 | Outpatient (CLI) | payer BC ==
--- NOTE | 2020-07-25 16:49 | Diagnostic Imaging Report ---
INDICATION: Left ankle pain. Three views of the left ankle show no fracture, dislocation or other acute abnormality. IMPRESSION: Negative left ankle. Dictated by: Dictated on workstation # [id number]
== END ==
LOC: RAD 15:51
PROVIDERS: ATTEND Family Medicine
DX: M25.572 Pain in left ankle and joints of left foot (principal)
CPT/HCPCS: 73610

== ENCOUNTER → 2020-12-09 | Outpatient (CLI) | payer BC ==
[~2020-12-09] MED LIST changes: -OMEP40CA27 PO; +OMEP40CA6 PO
--- NOTE | 2020-12-09 10:09 | Diagnostic Imaging Report ---
Indication: Screening. The current study was also evaluated with a Computer Aided Detection (CAD) system. 3-D Tomographic imaging was also performed. Comparison made with prior examination from 12/26/2017, 12/24/2016 and 09/05/2014. FINDINGS: There are scattered fibroglandular densities bilaterally. There are a few benign type calcifications. There is no dominant mass, spiculated lesion or suspicious calcification identified. Skin, nipples and axilla are unremarkable. IMPRESSION: Category 2 benign ACR BI-RADS Category 2: Benign findings. Result letter will be mailed to the patient. Note: At least 10% of breast cancer is not imaged by mammography. Dictated by: Dictated on workstation # [id number]
== END ==
LOC: RAD 07:30
PROVIDERS: ATTEND Family Medicine
DX: Z12.31 Encounter for screening mammogram for malignant neoplasm of breast (principal)
CPT/HCPCS: 77063; 77067

== ENCOUNTER → 2021-03-24 | Outpatient (CLI) | payer BC, OTHER ==
[2021-03-24 10:48] LABS: FIBRIN DEGRADATION PRODUCTS < 0.27 UG/ML (0.00-0.49); INR 2.2 (0.8-1.4); PROTHROMBIN TIME PATIENT 24.9 SEC (12.2-14.7)
--- NOTE | 2021-03-24 11:20 | Diagnostic Imaging Report ---
EXAMINATION: Right upper extremity venous Doppler. INDICATION: Right arm swelling. TECHNIQUE: Spectral and color-flow imaging of the right upper extremity was performed. COMPARISON: None. FINDINGS: There is generally good blood flow and compressibility at all levels of the deep venous system. There is no evidence for a deep venous thrombosis. IMPRESSION: There is no evidence for a deep venous thrombosis of the right upper extremity. Dictated by: Dictated on workstation # [id number]
== END ==
LOC: RAD 10:30
PROVIDERS: ATTEND Family Medicine
DX: M79.89 Other specified soft tissue disorders (principal); M79.601 Pain in right arm; Z86.718 Personal history of other venous thrombosis and embolism
CPT/HCPCS: 36415; 85379; 85610